=== PATIENT | male | born 1980 | race Caucasian/White ===

== ENCOUNTER → 2018-07-11 16:02 | Outpatient (CLI) | payer MEDICAID, SELFPAY ==
--- NOTE | 2018-07-11 16:03 | DI.MRI.S_ITS ---
PROCEDURE: MR HEAD/BRAIN WO/W CON INDICATIONS: 6 month follow up for brain lesions. 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 TECHNIQUE: Noncontrast axial T1 spin echo, axial T2 fast spin echo, sagittal and axial FLAIR, coronal T2 fast spin echo, axial gradient echo, axial diffusion and ADC through the brain. After the administration of contrast, axial and coronal 3D VIBE or T1 spin echo with fat saturation through the brain. COMPARISON: [facility], MR, BRAIN W&WO CONTRAST, 11/30/2017, 18:06. FINDINGS: Image quality: The patient's head could not fit into the skin and head coil. CSF Spaces: Basal cisterns are patent. No extra-axial fluid collections. Ventricles are normal in size and shape. Brain: Within the brainstem, there again seen nonenhancing T2 hyperintense T1 hypointense lesions seen. These are unchanged compared to the 11/30/17 examination. T2 hyperintense lesions are seen within the white matter elsewhere, which are primarily seen within the temporal lobes. These are also not significantly changed compared to the prior MRI dated 11/30/17. No midline shift. No intracranial bleeds or masses. No abnormal intracranial enhancement. Diffusion-weighted images demonstrate no acute ischemic insults. Normal intravascular flow voids are present. Skull and face: Calvarial marrow is normal in signal. Orbits appear normal. Sinuses: Sinuses and mastoids appear clear. 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 These are not significantly changed compared to the prior MRI dated 11/30/17. Please correlate with any prior outside imaging and known history. Stable cystic appearing T2 hyperintense foci can be seen elsewhere within the brain, primarily within the temporal lobes. These are also not significantly changed compared to the prior MRI. No new lesions or enhancing masses can be seen. Dictated by: Johnnie Ramesh M.D. on 07/11/2018 at 16:08 Approved by: Johnnie Ramesh M.D. on 07/11/2018 at 16:14
== END ==
PROVIDERS: Family Provider Family Medicine; PCP Family Medicine; Visit Provider Family Medicine
DX: Z85.841 Personal history of malignant neoplasm of brain (principal)
CPT/HCPCS: 70553; A9579

== ENCOUNTER 2018-09-17 16:47 | Inpatient (IN) | payer MEDICAID, OTHER, SELFPAY ==
[2018-09-17 16:54] VITALS: BP 137/96; PULSE 113; RESP 20; TEMP 37.7; O2SAT 98
--- NOTE | 2018-09-17 16:54 | ED.GENADULT ---
HPI - General Adult General Chief complaint: Fever Stated complaint: Feeling sick, fever Time Seen by Provider: 09/17/18 16:53 Source: patient and family Mode of arrival: wheelchair Limitations: no limitations History of Present Illness HPI narrative: 38-year-old male with a known neurologic issues. Please see prior primary care doctor note for further evaluation. He is here with his mother for concerns of a fever, not feeling very well, and increased secretions. Symptoms have been going on for the past 12-24 hours. No rashes. Patient is at baseline neurologic status per the mother. Related Data Previous Rx's Medication Instructions Recorded fluoxetine 20 mg capsule 20 mg PO QDAY #90 cap 02/06/18 Battery Powered Lift #1 ea 03/02/18 miscellaneous medical supply misc #1 each 03/21/18 [facility] bed #1 ea 06/07/18 Allergies Allergy/AdvReac Type Severity Reaction Status Date / Time Penicillins [PENICILLINS] Allergy Severe RASH Verified 09/17/18 18:08 Review of Systems Review of Systems Mostly provided by the mother. Patient is difficult to understand but did provide some history Constitutional Reports fatigue and Reports fever(s) Cardiovascular Denies chest pain and Denies dyspnea Respiratory Reports cough and Denies dyspnea Comments: Increased secretions Gastrointestinal Gastrointestinal: Denies abdominal pain, Denies nausea and Denies vomiting Genitourinary Denies dysuria Musculoskeletal Denies myalgias and Denies arthralgias Integumentary/Breasts Denies rash Comments: Patient reports that he does not have any sores on his buttocks Neurologic Comments: No change in neurologic status Endocrine Reports fatigue Hematologic/Lymphatic Comments: Not on anticoagulation [facility] Social History Smoking Status: Never smoker Exam Initial Vital Signs Initial Vital Signs: Vital Signs Temperature 99.8 F H 09/17/18 16:54 Pulse Rate 113 H 09/17/18 16:54 Respiratory Rate 20 09/17/18 16:54 Blood Pressure 137/96 H 09/17/18 16:54 Pulse Oximetry 98 09/17/18 16:54 Const General: cooperative and comfortable Orientation: alert and awake HENMT Head: normal to inspection and normocephalic Nose: nasal discharge Face and sinus: normal facial exam Mouth: other (Dry mucous membranes) Resp Effort & Inspection: not labored, no pursed lip breathing, no stridor and tachypneic Auscultation: rhonchi Cardio Rate: tachycardic Rhythm: regular rhythm Pulses: radial pulses present GI Inspection: non-distended Palpation: soft Skin Rashes: rash noted Neuro Other: Right-sided hemiparesis Difficult to understand. Baseline per mother who is at bedside Extrem General: capillary refill normal Course Orders Ordered: ED Orders 09/17/18 17:04 XR chest 1V Stat 09/17/18 17:25 Blood Culture Stat Complete Blood Count AUTO DIFF Stat Comprehensive Metabolic Panel Stat Influenza A and B by PCR Rapid Stat Lactate (Lactic Acid) Stat Lipase Stat Procalcitonin Stat Sodium Chloride (Normal Saline 0.9%) 1,000 mls @ 125 mls/hr IV CONT JOSE MANUEL Last Admin: 09/17/18 17:05 Dose: 125 mls/hr Levofloxacin (Levaquin) 750 mg in 150 mls @ 100 mls/hr IV NOW ONE Stop: 09/17/18 20:20 Last Admin: 09/17/18 19:04 Dose: 100 mls/hr Sodium Chloride (Normal Saline 0.9%) 1,000 mls @ 1,000 mls/hr IV BOLUS ONE Stop: 09/17/18 20:12 Vital Signs - 8 hr 09/17/18 16:54 09/17/18 17:30 09/17/18 18:50 Temperature 99.8 F H Pulse Rate 113 H 100 H 112 H Respiratory Rate 20 100 H 22 Blood Pressure 137/96 H Blood Pressure [Left Arm] 148/103 H Pulse Oximetry 98 20 L 98 Medical Decision Making Lab Data Lab results reviewed: Yes I reviewed the patient's lab results. Result diagrams: 09/17/18 17:25 09/17/18 17:25 Lab Results 09/17/18 09/17/18 09/17/18 Range/Units 17:25 17:25 17:25 WBC 9.4 (4.5-11.0) X10^3/uL RBC 4.95 (4.5-5.9) X10^6/uL Hgb 13.9 (13.5-17.5) g/dL Hct 40.1 L (41-53) % MCV 80.9 (80-100) fL MCH 28.1 (26-34) PG MCHC 34.8 (30-36) % RDW 13.1 (11.6-14.8) % Plt Count 282 (150-400) X10^3/uL Neut % (Auto) 71.3 (50-75) % Lymph % (Auto) 22.4 L (25-40) % [place] % (Auto) 5.1 (3-14) % Eos % (Auto) 0.6 L (2-4) % Baso % (Auto) 0.6 (0-2) % Neut # (Auto) 6700 (3222-9759) /uL Sodium (137-145) mmol/L Potassium (3.4-5.1) mmol/L Chloride (98-107) mmol/L Carbon Dioxide (22-32) mmol/L BUN (9-20) mg/dL Creatinine (0.66-1.25) mg/dL Estimated GFR (>60) mL/min BUN/Creatinine Ratio (6-22) Glucose (70-100) mg/dL Lactate 0.9 (0.7-2.1) mmol/L Calcium (8.4-10.2) mg/dL Total Bilirubin (0.2-1.3) mg/dL AST (17-59) IU/L ALT (21-72) IU/L Alkaline Phosphatase (38-126) U/L Total Protein (6.3-8.2) g/dL Albumin (3.5-5.0) g/dL Globulin (1.7-4.1) g/dL Albumin/Globulin Ratio (1.0-2.8) Lipase (23-300) U/L Procalcitonin < 0.05 (<0.5) ng/mL Influenza A & B (PCR) (Negative) 09/17/18 09/17/18 Range/Units 17:25 17:25 WBC (4.5-11.0) X10^3/uL RBC (4.5-5.9) X10^6/uL Hgb (13.5-17.5) g/dL Hct (41-53) % MCV (80-100) fL MCH (26-34) PG MCHC (30-36) % RDW (11.6-14.8) % Plt Count (150-400) X10^3/uL Neut % (Auto) (50-75) % Lymph % (Auto) (25-40) % [place] % (Auto) (3-14) % Eos % (Auto) (2-4) % Baso % (Auto) (0-2) % Neut # (Auto) (2453-9255) /uL Sodium 138 (137-145) mmol/L Potassium 4.0 (3.4-5.1) mmol/L Chloride 100 (98-107) mmol/L Carbon Dioxide 28 (22-32) mmol/L BUN 10 (9-20) mg/dL Creatinine 0.70 (0.66-1.25) mg/dL Estimated GFR > 60.0 (>60) mL/min BUN/Creatinine Ratio 14.3 (6-22) Glucose 89 (70-100) mg/dL Lactate (0.7-2.1) mmol/L Calcium 9.5 (8.4-10.2) mg/dL Total Bilirubin 0.8 (0.2-1.3) mg/dL AST 22 (17-59) IU/L ALT 22 (21-72) IU/L Alkaline Phosphatase 86 (38-126) U/L Total Protein 7.8 (6.3-8.2) g/dL Albumin 4.5 (3.5-5.0) g/dL Globulin 3.3 (1.7-4.1) g/dL Albumin/Globulin Ratio 1.4 (1.0-2.8) Lipase 59 (23-300) U/L Procalcitonin (<0.5) ng/mL Influenza A & B (PCR) Negative (Negative) Imaging Data Chest x-ray: Radiologist's impression: PROCEDURE: XR CHEST 1V INDICATIONS: fever TECHNIQUE: One view of the chest was acquired. COMPARISON: [facility], CHEST 2 VIEW, 07/06/2016, 13:37. FINDINGS: Surgical changes and devices: None. Lungs and pleura: No pleural effusions or pneumothorax. There is mild prominence of the pulmonary vasculature. Small hazy opacity at the right lung base noted. Mediastinum: Mediastinal contours appear normal. Heart size is normal. Bones and chest wall: No suspicious bony lesions. Overlying soft tissues appear unremarkable. IMPRESSION: Small hazy opacity at the right lung base likely represents atelectasis, versus pneumonia in the appropriate clinical setting. Dictated by: Victor M Prieto M.D. on 09/17/2018 at 18:15 MDM Narrative Medical decision making narrative: In this clinical setting I am concerned that the chest x-ray does represent a pneumonia. Patient did receive fluids here in the emergency department. He does not have a white count lactate unremarkable procalcitonin is unremarkable however clinically he does have pneumonia. He does have increased secretions. Has a low-grade fever. Patient was given antibiotics here in the emergency department. Patient does not meet sepsis criteria so will hold on the 30 cc/kilos of fluid. I feel given his neurologic status and his other baseline medical issues that admission to the hospital under observation is warranted. I discussed the case with Dr. Vaughn who will admit the patient. I did discuss admission with the patient and the mother who is at bedside. They expressed understanding and agreement. Discharge Plan Departure Patient Disposition: Admitted as Observation Clinical Impression: Pneumonia
--- NOTE | 2018-09-17 17:04 | DI.RAD.S_ITS ---
PROCEDURE: XR CHEST 1V INDICATIONS: fever TECHNIQUE: One view of the chest was acquired. COMPARISON: [facility], , CHEST 2 VIEW, 07/06/2016, 13:37. FINDINGS: Surgical changes and devices: None. Lungs and pleura: No pleural effusions or pneumothorax. There is mild prominence of the pulmonary vasculature. Small hazy opacity at the right lung base noted. Mediastinum: Mediastinal contours appear normal. Heart size is normal. Bones and chest wall: No suspicious bony lesions. Overlying soft tissues appear unremarkable. IMPRESSION: Small hazy opacity at the right lung base likely represents atelectasis, versus pneumonia in the appropriate clinical setting. Dictated by: Victor M Prieto M.D. on 09/17/2018 at 18:15 Approved by: Victor M Prieto M.D. on 09/17/2018 at 18:17
[2018-09-17] MEDS: SODIUM CHLORIDE 0.9% 1,000 ML 1000 ML IV (17:05)
[2018-09-17] MEDS: SODIUM CHLORIDE 0.9% 1,000 ML 125 ML IV (17:05)
[2018-09-17 17:30] VITALS: PULSE 100; RESP 100; RESP 20; O2SAT 100; O2SAT 20
[2018-09-17 17:39] LABS: Add Manual Diff / Slide Review NO; Basophils Percent Auto 0.6 % (0-2); Eosinophils Percent Auto 0.6 % (2-4); Hematocrit 40.1 % (41-53); Hemoglobin 13.9 g/dL (13.5-17.5); Lymphocytes Percent Auto 22.4 % (25-40); Mean Corpuscular HGB Conc 34.8 % (30-36); Mean Corpuscular Hemoglobin 28.1 PG (26-34); Mean Corpuscular Volume 80.9 fL (80-100); Monocytes Percent Auto 5.1 % (3-14); Neutrophils Absolute Auto 6700 /uL (1500-7000); Neutrophils Percent Auto 71.3 % (50-75); Platelet Count 282 X10^3/uL (150-400); Red Blood Cell Count 4.95 X10^6/uL (4.5-5.9); Red Cell Distribution Width 13.1 % (11.6-14.8); White Blood Cell Count 9.4 X10^3/uL (4.5-11.0)
[2018-09-17 17:51] LABS: Alanine Aminotransferase 22 IU/L (21-72); Albumin 4.5 g/dL (3.5-5.0); Albumin Globulin Ratio 1.4 (1.0-2.8); Alkaline Phosphatase 86 U/L (38-126); Aspartate Aminotransferase 22 IU/L (17-59); BUN Creatinine Ratio 14.3 (6-22); Bilirubin Total 0.8 mg/dL (0.2-1.3); Blood Urea Nitrogen 10 mg/dL (9-20); Calcium 9.5 mg/dL (8.4-10.2); Carbon Dioxide 28 mmol/L (22-32); Chloride 100 mmol/L (98-107); Estimated Glomerular Filt Rate > 60.0 mL/min (>60); Globulin 3.3 g/dL (1.7-4.1); Glucose 89 mg/dL (70-100); HEMOLYSIS 18 (0-50); Lipase 59 U/L (23-300); Sodium 138 mmol/L (137-145); Total Protein 7.8 g/dL (6.3-8.2)
[2018-09-17 17:52] LABS: Lactate (Lactic Acid) 0.9 mmol/L (0.7-2.1)
[2018-09-17 17:56] LABS: Influenza A and B by PCR Rapid Negative (Negative)
[2018-09-17 18:21] LABS: Procalcitonin < 0.05 ng/mL (<0.5)
[2018-09-17 18:50] VITALS: BP 148/103; PULSE 112; RESP 22; O2SAT 98
[2018-09-17] MEDS: levoFLOXacin 750 MG/150 ML PIGGYBACK 100 MG IV (19:04)
[2018-09-17 20:02] VITALS: BP 149/101; PULSE 124; RESP 24; TEMP 37; O2SAT 99
[2018-09-17 20:35] VITALS: BMI 33.0
--- NOTE | 2018-09-17 21:30 | PC.ADMIT ---
[id number] Admission Note: The patient,Jonnie Christopher,38 y/o, was given written information regarding hospital policies, unit procedures and contact persons. Patient's smoking status: Never smoker. Vital Signs - 8 hr 09/17/18 16:54 09/17/18 17:30 09/17/18 18:50 Temperature 99.8 F H Pulse Rate 113 H 100 H 112 H Respiratory Rate 20 100 H 22 Blood Pressure 137/96 H Blood Pressure [Left Arm] 148/103 H Pulse Oximetry 98 20 L 98 09/17/18 20:02 Temperature 98.6 F Pulse Rate 124 H Respiratory Rate 24 Blood Pressure 149/101 H Blood Pressure [Left Arm] Pulse Oximetry 99 1999 - Pt to room from ER. Mom at bedside. Transferred via slider board. Pt with large amount of nasal discharge and anterior airway congestion. Room air sats 99%. Oral care, Nasal care, face wash, Libertad-care with old stool in skin folds. Pt difficulty to understand r/t congestion. Mom reports RLE contracture and muscle tension make it difficult to open legs. States that neurologist is recommending botox injections to relax muscle rigidity. Skin care and repositioned. Mom states that at home she is able to one, two, three, hoist him out of his chair and assist into bed. He doesn't really pivot. She states that on occasion he does fall and they have to call medics to assist. Last call 3 days ago. No visible injury. Pt states that his bottom hurts, requesting a pillow for cushioning. Waffle cushion in place. Skin intact with blancheable erythema. IVF infusing. Continuous pulse ox applied. Edcuated to room, routine and call light use. Monitor.
[2018-09-17 23:40] VITALS: BP 142/100; PULSE 124; RESP 22; TEMP 37.7; O2SAT 97
[2018-09-18] VITALS (11 sets, daily range): BP systolic 119–143; BP diastolic 74–93; PULSE 101–122; RESP 18–24; TEMP 36.8–38.4; O2SAT 96–98
[2018-09-18] MEDS: ONDANSETRON 4 MG ODT PO (02:01)
[2018-09-18] MEDS: SODIUM CHLORIDE 0.9% 1,000 ML 125 ML IV ×3 (03:28→20:07)
[2018-09-18 05:16] LABS: Add Manual Diff / Slide Review NO; Basophils Percent Auto 0.6 % (0-2); Eosinophils Percent Auto 0.2 % (2-4); Hematocrit 40.2 % (41-53); Hemoglobin 13.6 g/dL (13.5-17.5); Mean Corpuscular HGB Conc 33.8 % (30-36); Mean Corpuscular Hemoglobin 27.4 PG (26-34); Neutrophils Absolute Auto 8800 /uL (1500-7000); Neutrophils Percent Auto 76.2 % (50-75); Platelet Count 281 X10^3/uL (150-400); Red Blood Cell Count 4.97 X10^6/uL (4.5-5.9); Red Cell Distribution Width 12.9 % (11.6-14.8); White Blood Cell Count 11.6 X10^3/uL (4.5-11.0)
[2018-09-18 05:24] LABS: BUN Creatinine Ratio 11.4 (6-22); Blood Urea Nitrogen 8 mg/dL (9-20); Calcium 9.1 mg/dL (8.4-10.2); Carbon Dioxide 24 mmol/L (22-32); Chloride 100 mmol/L (98-107); Estimated Glomerular Filt Rate > 60.0 mL/min (>60); Glucose 109 mg/dL (70-100); HEMOLYSIS < 15 (0-50); Potassium 4.1 mmol/L (3.4-5.1); Sodium 134 mmol/L (137-145)
--- NOTE | 2018-09-18 05:56 | PC.NURSE ---
Patient has been awake most of the night, using call light for assist with urinal and requesting to be orally sx or turned, difficult to understand speech d/t upper airway congestion, RA sats >95%, breath sounds coarse, RR 20s, thick yellow secretions from nose, thick white secretions from throat, coughs and chokes with sips of water. PO Tylenol held d/t dysphagia and patient refusing it. Temp 100.0 and 101.1, cold clothes to forehead, HR tachy 120s, uses urinal plus is incontinent, barrier ointment applied to buttocks, blanchable erythema.
[2018-09-18] MEDS: ACETAMINOPHEN 650 MG SUPP PR (08:45)
[2018-09-18 10:39] LABS: Bacteria Urine None Seen; WBC Urine None Seen (0-5/HPF)
[2018-09-18 10:44] LABS: Appearance Urine UA CLEAR; Bilirubin Urine UA NEGATIVE (NEGATIVE); Color Urine UA YELLOW; Glucose Urine UA NEGATIVE (Negative); Ketones Urine UA 2+ (NEGATIVE); Leukocyte Esterase Urine UA NEGATIVE (NEGATIVE); Nitrite Urine UA NEGATIVE (Negative); Occult Blood Urine UA 1+ (Negative); Protein Urine UA NEGATIVE (Negative); Urobilinogen Urine UA 0.2 E.U./dL (0.2); pH Urine UA 5.5 (4.5-8.0)
[2018-09-18] MEDS: FLUoxetine 20 MG CAPSULE PO (10:52)
[2018-09-18 10:55] LABS: Culture Indicated Urine Cult Not Indicated; RBC Urine 1-5/HPF (0-5/HPF)
--- NOTE | 2018-09-18 11:56 | PM.HP.1 ---
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 He was brought to the emergency department by family due to 1 day of fatigue and fevers. Mother states he woke up just not feeling well and has had some nasal congestion and increased secretions. Denies cough or shortness of breath. Mother and 3 small children she cares for at home have all been sick with colds though everyone is on the upswing. Mother is unsure if she or the children had fevers. She thinks the youngest child may have. Now all the children have coughs. In the emergency department chest x-ray was concerning for possible pneumonia. He was given levofloxacin and IV fluids and admitted for further observation given his fragile status at baseline. Initial labs were all unremarkable and he did not meet sepsis criteria. Blood cultures collected in the ER. Patient History Medical History Depression (Chronic) Glioma (Chronic) Hemiparesis (Chronic ~1984) Family & Social History Family History: Reviewed 09/18/18 by Nargis Fernandez DO Social History: household members caregiver Prior Living Arrangements Apartment/Condo Safety & Behavioral: Feels Safe in Current Yes Environment Been Physically Hurt or No Threatened By a Person Suicidal Ideation Description None Tobacco & Substance use: Smoking Status Never smoker alcohol intake never Substance Use Type marijuana Meds Home Medications Medication Instructions Recorded Confirmed Type fluoxetine 20 mg capsule 20 mg PO QDAY #90 cap 02/06/18 09/17/18 Rx Battery Powered Lift #1 ea 03/02/18 09/18/18 Rx miscellaneous medical supply misc #1 each 03/21/18 09/18/18 Rx bariatric hospital bed #1 ea 06/07/18 09/18/18 Rx latanoprost 1 drp EYE-BOTH BEDTIME 09/18/18 09/18/18 History Allergies Allergy/AdvReac Type Severity Reaction Status Date / Time Penicillins [PENICILLINS] Allergy Severe RASH Verified 09/17/18 19:34 Review of Systems Constitutional Constitutional: Reports fatigue and Reports fever(s) ENT Ears, Nose, Mouth, and Throat: Yes nasal congestion Cardiovascular Cardiovascular: Denies shortness of breath Respiratory Respiratory: Denies cough, Denies dyspnea and Denies wheezing Gastrointestinal Gastrointestinal: Denies change in bowel habits, Denies nausea and Denies vomiting Endocrine Endocrine: Reports fatigue Allergic/Immunologic Allergic/Immunologic: Denies wheezing Exam Vital Signs (past 8 hours): - 09/18/18 04:10 09/18/18 04:15 09/18/18 07:20 Temperature 101.1 F H Pulse Rate 122 H Respiratory Rate 24 Blood Pressure 143/90 H Pulse Oximetry 97 96 98 09/18/18 07:40 09/18/18 10:15 Temperature 100.6 F H 99.7 F H Pulse Rate 118 H 102 H Respiratory Rate 24 19 Blood Pressure 143/93 H Pulse Oximetry 98 98 Fraction of Inspired Oxygen 21 Oxygen Delivery Method Room Air Oxygen Flow Rate 0 Narrative Exam Narrative: General: Obese developmentally delayed man resting comfortably in bed. HEENT: Nasal congestion. Moist mucosa. CV: Regular rate and rhythm, no murmur Lungs: Bilateral rhonchi in upper lung matthew. No appreciable wheezes or crackles. Good respiratory effort. Abdomen: Active bowel tones. Abdomen is soft, nontender. Extremities: Limited use of arms though slightly better with the left. Unable to move lower extremities. No edema. 2+ pedal pulses bilaterally. Neuro: Answers questions appropriately. AAO x3. Speech is somewhat slurred which is his baseline. Objective Labs Result Diagrams: 09/18/18 04:52 09/18/18 04:52 Labs: Laboratory Results - last 24 hr 09/17/18 09/17/18 09/17/18 17:25 17:25 17:25 WBC 9.4 RBC 4.95 Hgb 13.9 Hct 40.1 L MCV 80.9 MCH 28.1 MCHC 34.8 RDW 13.1 Plt Count 282 Neut % (Auto) 71.3 Lymph % (Auto) 22.4 L [place] % (Auto) 5.1 Eos % (Auto) 0.6 L Baso % (Auto) 0.6 Neut # (Auto) 6700 Sodium Potassium Chloride Carbon Dioxide BUN Creatinine Estimated GFR BUN/Creatinine Ratio Glucose Lactate 0.9 Calcium Total Bilirubin AST ALT Alkaline Phosphatase Total Protein Albumin Globulin Albumin/Globulin Ratio Lipase Procalcitonin < 0.05 Urine Color Urine Appearance Urine pH Ur Specific [place] Urine Protein Urine Glucose (UA) Urine Ketones Urine Occult Blood Urine Nitrate Urine Bilirubin Urine Urobilinogen Ur Leukocyte Esterase Urine RBC Urine WBC Urine Bacteria Ur Culture Indicated? Micro UA Comment Nasal Screen MRSA (PCR) Influenza A & B (PCR) 09/17/18 09/17/18 09/17/18 17:25 17:25 20:15 WBC RBC Hgb Hct MCV MCH MCHC RDW Plt Count Neut % (Auto) Lymph % (Auto) [place] % (Auto) Eos % (Auto) Baso % (Auto) Neut # (Auto) Sodium 138 Potassium 4.0 Chloride 100 Carbon Dioxide 28 BUN 10 Creatinine 0.70 Estimated GFR > 60.0 BUN/Creatinine Ratio 14.3 Glucose 89 Lactate Calcium 9.5 Total Bilirubin 0.8 AST 22 ALT 22 Alkaline Phosphatase 86 Total Protein 7.8 Albumin 4.5 Globulin 3.3 Albumin/Globulin Ratio 1.4 Lipase 59 Procalcitonin Urine Color Urine Appearance Urine pH Ur Specific [place] Urine Protein Urine Glucose (UA) Urine Ketones Urine Occult Blood Urine Nitrate Urine Bilirubin Urine Urobilinogen Ur Leukocyte Esterase Urine RBC Urine WBC Urine Bacteria Ur Culture Indicated? Micro UA Comment Nasal Screen MRSA (PCR) Positive for mrsa H Influenza A & B (PCR) Negative 09/17/18 09/18/18 09/18/18 20:44 04:52 04:52 WBC 11.6 H RBC 4.97 Hgb 13.6 Hct 40.2 L MCV 81.0 MCH 27.4 MCHC 33.8 RDW 12.9 Plt Count 281 Neut % (Auto) 76.2 H Lymph % (Auto) 17.0 L [place] % (Auto) 6.0 Eos % (Auto) 0.2 L Baso % (Auto) 0.6 Neut # (Auto) 8800 H Sodium 134 L Potassium 4.1 Chloride 100 Carbon Dioxide 24 BUN 8 L Creatinine 0.70 Estimated GFR > 60.0 BUN/Creatinine Ratio 11.4 Glucose 109 H Lactate Calcium 9.1 Total Bilirubin AST ALT Alkaline Phosphatase Total Protein Albumin Globulin Albumin/Globulin Ratio Lipase Procalcitonin Urine Color Urine Appearance Urine pH Ur Specific [place] Urine Protein Urine Glucose (UA) Urine Ketones Urine Occult Blood Urine Nitrate Urine Bilirubin Urine Urobilinogen Ur Leukocyte Esterase Urine RBC Urine WBC Urine Bacteria Ur Culture Indicated? Micro UA Comment Nasal Screen MRSA (PCR) Influenza A & B (PCR) Cancelled 09/18/18 10:15 WBC RBC Hgb Hct MCV MCH MCHC RDW Plt Count Neut % (Auto) Lymph % (Auto) [place] % (Auto) Eos % (Auto) Baso % (Auto) Neut # (Auto) Sodium Potassium Chloride Carbon Dioxide BUN Creatinine Estimated GFR BUN/Creatinine Ratio Glucose Lactate Calcium Total Bilirubin AST ALT Alkaline Phosphatase Total Protein Albumin Globulin Albumin/Globulin Ratio Lipase Procalcitonin Urine Color Yellow Urine Appearance Clear Urine pH 5.5 Ur Specific [place] 1.020 Urine Protein Negative Urine Glucose (UA) Negative Urine Ketones 2+ H Urine Occult Blood 1+ H Urine Nitrate Negative Urine Bilirubin Negative Urine Urobilinogen 0.2 Ur Leukocyte Esterase Negative Urine RBC 1-5/hpf Urine WBC None seen Urine Bacteria None seen Ur Culture Indicated? Cult not indicated Micro UA Comment Not Reportable Nasal Screen MRSA (PCR) Influenza A & B (PCR) Assessment & Plan (1) Pneumonia: Qualifiers: Aspiration pneumonia type: Laterality: unspecified laterality Lung location: unspecified part of lung Pneumonia type: due to unspecified organism Qualified Code(s): J18.9 - Pneumonia, unspecified organism Current visit: Yes Status: Acute (2) Hemiparesis: Problem details: Secondary to glioma status post radiation Qualifiers: Hemiparesis etiology: non-cerebrovascular etiology Cerebrovascular disease type: Hemiparesis laterality: right dominant side Qualified Code(s): G81.91 - Hemiplegia, unspecified affecting right dominant side Current visit: No Status: None (3) Moderate developmental delay: Current visit: No Status: None Plan: Assessment/Plan Narrative: 38-year-old male with hemiparesis and 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 Chest x-ray was concerning for pneumonia however patient has not complained of cough or shortness of breath. Family has been sick with a viral illness which seems more likely. Given delicate state secondary to limited mobility, pneumonia is a concern. Will continue levothyroxine to cover for possible pneumonia. Tylenol as needed fevers. Repeat labs in the morning. White blood cell count was slightly up today compared to admission. One blood culture with Staph though suspect this is a contaminant as he does not appear septic. Will follow up final cultures. Continue IV fluid support and wean is he is able to improve his oral intake. Will ask PT to see him though I believe patient is at his baseline with respect to his mobility. Family does an excellent job caring for him. DVT prophylaxis: SCDs Diet: General diet Code status: Full code Disposition: Given patient's chronic medical problems and potential for deterioration, anticipate he will remain in the hospital at least 2 midnights and possibly a third while awaiting blood culture results and clinical improvement. Quality VTE Deep Vein Thrombosis/Pulmonary Embolism Present on Admission: No
--- NOTE | 2018-09-18 13:10 | CM.DANOTE ---
Patient is a 38 year old male who was admitted on 09/17/18 for Fever, Weakness. Pt has MEDICAID for insurance and his PCP is Dr. Fernandez. EMR was reviewed. Per MD, pt has neurological issues at baseline and likely has pneumonia and not stable for d/c yet today. Per RN, pt seems to be well cared for and no current wounds but currently difficult to understand due to his congestion and swallow issues, seems alert and oriented but sleeping soundly. SW spoke to pt's mother Marianela and explained role and she confirmed that the pt lives in an apartment in [place] alone but has [facility]UN CG a few hours every day for assist and that she comes every day to check on the pt as well. Pt uses a lift, hospital bed, and w/c at home and needs assist with transfers. Mom denies that pt has ever been to SNF or used HH. Mom states that pt has been attending outpt PT but recently PT recommended HH for the pt due to the difficulty with getting out of his apartment. Mom states she is agreeable to HH if recommended. Mom is pt's DPOA and SW requested she try to bring in a copy for pt's file and she was agreeable. Mom plans to follow up with pt's SHAUN CM to discuss possibly increasing his caregiving hours with his caregiver. RN plans to discuss ordering PT/OT with MD to determine if pt could benefit from HH therapy at discharge. ROBIN called [facility] and confirmed that pt's SHAUN CM is Steph Harris, but Steph is out of the office today and tomorrow for the holidays. ROBIN faxed H&P for her to review and left vm stating pt had been admitted yesterday. Plan: ROBIN to follow for likely PT/OT eval towards determining if pt is safe for return home with possible new referral to HH. Pt's mom plans to be bedside again tomorrow. ARIC Ca Discharge Planning/Care Management CM Discharge Assessment Start: 09/18/18 12:57 Freq: Status: Active Protocol: Document 09/18/18 13:00 BF (Rec: 09/18/18 13:09 BF [id number]) Discharge Planning Assessment Assigned Healthcare Analyst ARIC Collier DPOA/Assigned Designee Name Marainela Paulino, mother Advance Directives? Yes: POA Advance Directives on File No: requested mother bring in a copy History Provided By Patient Parents Medical Record Has Patient been admitted in last 30 No days? Prior Living Arrangements Apartment/Condo Household Members caregiver none Type of transporation used prior to Relies on Others admit Comment Patient resides in an apartment alone with SHA[facility] CG a few hours a day and his mother stops by daily. Independent with ADL's No Is patient alert and oriented? Yes Needs Assistance With Bathing Eating Grooming Meal Prep Toileting Managing Medications Home Chores / Shopping Caregiver for Another No Community Services used prior to Physical Therapy admission: DME Already Rented / Owned Hospital Bed Wheelchair Other Comment Patient is mostly bedbound/ wheelchair bound at baseline with neurological issues from previous brain tumor Name of Agency [facility] Contact Phone [phone] Agency Fax # [phone] Clinicals Faxed Yes Comment Steph Harris the SHAUN , out today and tomorrow due to the holidays, left [facility]. Comment D/C needs unclear at this time . Likely SNF vs home with Community Services Physical Therapy Occupational Therapy Speech Language Pathology Transportation Arrangement Pending d/c plan of home vs SNF Review Status In Process Please Provide Date Initial DC 09/18/18 Assessment Was Performed Next Review Type Continued Stay Review
[2018-09-18 13:35] LABS: Acinetobacter baumannii Not Detected (Not Detect); Candida albicans Not Detected (Not Detect); Candida glabrata Not Detected (Not Detect); Candida krusei Not Detected (Not Detect); Candida parapsilosis Not Detected (Not Detect); Candida tropicalis Not Detected (Not Detect); E. coli Not Detected (Not Detect); Enterobacter cloacae complex Not Detected (Not Detect); Enterobacteriaceae species Not Detected (Not Detect); Enterococcus species Not Detected (Not Detect); Haemophilus influenzae Not Detected (Not Detect); KPC (carbapenem-resist gene) Not Detected (Not Detect); Listeria monocytogenes Not Detected (Not Detect); Methicillin-resistant gene Not Detected (Not Detect); Neisseria meningitidis Not Detected (Not Detect); Proteus species Not Detected (Not Detect); Pseudomonas aeruginosa Not Detected (Not Detect); Serratia marcescens Not Detected (Not Detect); Staphylococcus species Detected (Not Detect); Streptococcus agalactiae (Gr B Not Detected (Not Detect); Streptococcus pneumonia Not Detected (Not Detect); Streptococcus pyogenes (Gr A) Not Detected (Not Detect); Streptococcus species Not Detected (Not Detect); Vancomycin-rest genes A/B Not Detected (Not Detect)
[2018-09-18] MEDS: levoFLOXacin 750 MG/150 ML PIGGYBACK 100 MG IV (14:22)
--- NOTE | 2018-09-18 18:10 | PT.IIE ---
Current Diagnoses Hemiplegia, unspecified affecting right dominant side (09/17/18) Pneumonia, unspecified organism (09/17/18) Unspecified lack of expected normal physiological development in childhood (09/17/18) Medical History (Last Reviewed 09/18/18 @ 17:23 by Nargis Fernandez DO) Depression (Chronic) Glioma (Chronic) Hemiparesis (Chronic ~1984) Physical Therapy Inpatient Evaluation/Re-Eval M1 PT/OT-IP Prior Functional Status Start: 09/18/18 17:31 Freq: NEEDED Status: Active Protocol: Document 09/18/18 17:00 HH (Rec: 09/18/18 18:10 [email or web address]) Medical Review Prior Functional Status Medical History Reviewed Yes Communication pt is able to follow command and have difficulty in verbal expression Mobility and Gait pt is w/c and bed bound with neurological issues from previous brain tumor in his childhood Activities of Daily Living and IADL's dependent on his SHAUN CG a few hours every day for assist pt's mother Marianela comes everyday to check on pt as well Social History Household Members caregiver none Living Arrangements Apartment/Condo Number of Stairs To Enter/Railing? Pt is unable to provide information. will update when pt's mother back to bedside again tomorrow. Home Equipment Manual Wheelchair Mechanical Lift Hospital Bed Employment Status Unemployed Additional Social History Comment SW's report shows pt lives in an apartment in [place] alone but has SHAUN CG a few hours every day for assist. Pt 's mother comes every day to check on the pt as well. Pt uses a lift, hospital bed, and w/c at home and needs assist with transfers. Pt has never been to SNF or used HH. Pt has been attending outpt PT based on report, but recently PT recommended HH for the pt due to the difficulty with getting out of his apartment. It also mentioned that pt's Mom is agreeable to HH if recommended. M2 PT-IP Current Condition Start: 09/18/18 17:31 Freq: NEEDED Status: Active Protocol: Document 09/18/18 17:00 HH (Rec: 09/18/18 18:10 [email or web address]) Physical Therapy Current Condition Current Condition Evaluation Date 09/18/18 Treatment Diagnosis acute PNA, difficulty in transfer, muscle weakness Onset Date late august M3 PT-IP Subjective Start: 09/18/18 17:31 Freq: NEEDED Status: Active Protocol: Document 09/18/18 17:00 (Rec: 09/18/18 18:10 [email or web address]) Subjective Physical Therapy Visit Type Type Initial Evaluation Visit Start Time 17:00 Visit Stop Time 17:20 Total Visit Minutes 20 Notes Communicated with RN. Pt is awake and oriented who is also able to follow simple command but have difficulty communicating through words due to his developmental neurological issues. Physical Therapy Visit Comments Patient Comments Pt reports I feel better today. Patient Goals To go home and see his mother Therapy Pain Assessment Pain Present Pain Present Denied Pain M4 PT-IP Mobility and Gait Start: 09/18/18 17:31 Freq: NEEDED Status: Active Protocol: Document 09/18/18 17:00 HH (Rec: 09/18/18 18:10 [email or web address]) PT-Bed Mobility Assessment Rolling Level of Assist Maximal Assistance 2 Person Assistance Supine to Sit Supine to Sit Total Assistance 2 Person Assistance PT-Transfer Assessment Comments Mobility Comments Did not attempt due to inadequate extremity and trunk control Gait Assessment Comments Gait Comments Did not attempt due to inadequate extremity and trunk control PT-Balance Assessment Comments Other Balance Tests/Deviations/Treatment Did not attempt due to : inadequate extremity and trunk control for sitting. M5 PT-IP Objective Assessments Start: 09/18/18 17:31 Freq: NEEDED Status: Active Protocol: Document 09/18/18 17:00 HH (Rec: 09/18/18 18:10 [email or web address]) Orientation Orientation/Cognition Level of Alertness Alert Comments Pt is able follow commands but have difficulty communicating through words due to his prior neurological issues at baseline. (brain tumor) Gross Range of Motion Upper Extremity ROM Assessment Right Impaired Impairments pt only has slight wrist and finger movements on his R UE Lower Extremity ROM Assessment Bilaterally Impaired Impairments Rigid B LE pt has 10-20% of L LE AROM, but complete paralysis on R LE Strength Upper Extremity Strength Assessment Bilaterally Impaired Lower Extremity Strength Assessment Bilaterally Impaired Muscle Tone Muscle Tone WNL Yes Muscle Tone Location Bilateral Lower Extremity Type of Tone Hypertonicity Severity of Tone Severe M6 PT-IP Treatment Start: 09/18/18 17:31 Freq: NEEDED Status: Active Protocol: Document 09/18/18 17:00 HH (Rec: 09/18/18 18:10 [email or web address]) Physical Therapy Treatment Exercises Exercises Ankle Pumps M7 PT-IP Assessment and Plan Start: 09/18/18 17:31 Freq: NEEDED Status: Active Protocol: Document 09/18/18 17:00 (Rec: 09/18/18 18:10 [email or web address]) PT Summary Assessment and Plan Potential Rehabilitation Potential Poor Status of Condition at Evaluation Evolving Summary Impairments ROM Strength Tone Cognition Bed Mobility Transfers Gait Activity Tolerance Assessment Summary Patient is a 38 year old male who was admitted on 09/17/18 for fever and generalized weakness. Pt has neurological issues at baseline (brain tumor) and was dx with acute PNA upon admission. Per RN, pt does not have current wounds but currently difficult to understand due to his congestion. Upon EMR, pt is bed and w/c bound prior to admission who requires extensive assistance for ADLs and IADLs from his CG and his mother, along with his home AD such as hospital bed, ashley lift and w/c. Pt requires max A x 2 for overall bed mobility today due to pt's insufficient functional mobility and strength. In my professional opinion, Recommend pt to be d/c to SNF which provides extensive physical and medical assistance for his basic needs , which reduces his chance of getting PNA or other complications due to physical inactivity at home. Goals Bed Mobility Goal Maximal Assistance Transfer Goal Maximal Assistance Gait Goal Maximal Assistance Frequency of Treatment Frequency Of Treatment Once a Day Treatment Plan Physical Therapy Treatment Plan Bed Mobility Training Transfer Training Therapeutic Exercise Discharge Planning Manual Therapy Other Recommendations and Next Treatment discuss d/c plan with pt's mom Focus . Recommend SNF due to pt's inactivity chest PT if needed bed mobility as tolerated Recommendations To Nursing Amount of Assist Needed Total Assistance Mechanical Lift Discharge Recommendations PT Discharge Recommendations SNF Rehab
[2018-09-18] MEDS: LATANOPROST 0.005% OPHTH 2.5 ML 1 DROPS EYE-BOTH (22:46)
[2018-09-19] VITALS (11 sets, daily range): BP systolic 121–143; BP diastolic 85–98; PULSE 103–111; RESP 16–19; TEMP 37–37.5; O2SAT 95–99
[2018-09-19] MEDS: ACETAMINOPHEN 650 MG SUPP PR (00:28)
[2018-09-19] MEDS: SODIUM CHLORIDE 0.9% 1,000 ML 125 ML IV (04:02)
[2018-09-19 05:23] LABS: Add Manual Diff / Slide Review NO; Basophils Percent Auto 0.8 % (0-2); Eosinophils Percent Auto 1.9 % (2-4); Hematocrit 39.6 % (41-53); Hemoglobin 13.8 g/dL (13.5-17.5); Lymphocytes Percent Auto 22.3 % (25-40); Mean Corpuscular HGB Conc 34.9 % (30-36); Mean Corpuscular Hemoglobin 28.3 PG (26-34); Mean Corpuscular Volume 80.9 fL (80-100); Monocytes Percent Auto 6.7 % (3-14); Neutrophils Absolute Auto 7200 /uL (1500-7000); Neutrophils Percent Auto 68.3 % (50-75); Platelet Count 267 X10^3/uL (150-400); Red Blood Cell Count 4.89 X10^6/uL (4.5-5.9); Red Cell Distribution Width 13.5 % (11.6-14.8); White Blood Cell Count 10.5 X10^3/uL (4.5-11.0)
[2018-09-19 05:28] LABS: BUN Creatinine Ratio 11.4 (6-22); Blood Urea Nitrogen 8 mg/dL (9-20); Calcium 9.3 mg/dL (8.4-10.2); Carbon Dioxide 25 mmol/L (22-32); Chloride 105 mmol/L (98-107); Estimated Glomerular Filt Rate > 60.0 mL/min (>60); Glucose 101 mg/dL (70-100); HEMOLYSIS < 15 (0-50); Potassium 3.9 mmol/L (3.4-5.1); Sodium 140 mmol/L (137-145)
--- NOTE | 2018-09-19 08:14 | PM.PN.1 ---
Subjective Date Patient Seen: 09/19/18 Time Patient Seen: 08:14 Interval history: Patient states he did well overnight. Still having lots of congestion. Mild cough. No headache. No nursing staff concerns. He is eating breakfast this morning. He says he definitely feels better than yesterday. But still not quite back to baseline. No significant hypoxia no significant temperatures. Mildly tachycardic this morning. Exam Vital Signs (past 8 hours): - 09/19/18 00:30 09/19/18 05:00 Temperature 99.2 F Pulse Rate 104 H Respiratory Rate 18 Blood Pressure 129/89 Pulse Oximetry 95 99 Fraction of Inspired Oxygen 21 Oxygen Delivery Method Room Air Oxygen Flow Rate 0 Narrative Exam Narrative: Gen.: Alert good historian. HEENT: Pupils equal round and reactive or mucosa is moist neck is supple Cardio: [S1-S2 regular rate and rhythm no murmurs appreciated.] Respiratory: Normal respiratory rate. Lungs are clear no wheezes or crackles appreciated Abdomen: Soft nontender Extremities: Hemiparesis weakness right side. Objective Labs Result Diagrams: 09/19/18 04:45 09/19/18 04:45 Labs: Laboratory Results - last 24 hr 09/17/18 09/18/18 09/19/18 17:25 10:15 04:45 WBC 10.5 RBC 4.89 Hgb 13.8 Hct 39.6 L MCV 80.9 MCH 28.3 MCHC 34.9 RDW 13.5 Plt Count 267 Neut % (Auto) 68.3 Lymph % (Auto) 22.3 L Slope % (Auto) 6.7 Eos % (Auto) 1.9 L Baso % (Auto) 0.8 Neut # (Auto) 7200 H Sodium Potassium Chloride Carbon Dioxide BUN Creatinine Estimated GFR BUN/Creatinine Ratio Glucose Calcium Urine Color Yellow Urine Appearance Clear Urine pH 5.5 Ur Specific [place] 1.020 Urine Protein Negative Urine Glucose (UA) Negative Urine Ketones 2+ H Urine Occult Blood 1+ H Urine Nitrate Negative Urine Bilirubin Negative Urine Urobilinogen 0.2 Ur Leukocyte Esterase Negative Urine RBC 1-5/hpf Urine WBC None seen Urine Bacteria None seen Ur Culture Indicated? Cult not indicated Micro UA Comment Not Reportable A. baumannii (PCR) Not detected Victoria albicans (PCR) Not detected C. glabrata (PCR) Not detected C. krusei (PCR) Not detected C. parapsilosis (PCR) Not detected C. tropicalis (PCR) Not detected Enterobacteriac sp PCR Not detected E. cloacae complex PCR Not detected Enterococcus sp PCR Not detected E. coli (PCR) Not detected H. influenzae (PCR) Not detected Klebsiella oxytoca PCR Not detected Klebsiella pneumoniae Not detected List. monocytogenes PCR Not detected N. meningitidis (PCR) Not detected Proteus species (PCR) Not detected Serratia marcescens PCR Not detected Staphylococcus sp PCR Detected H Staph aureus (PCR) Not detected mecA-Methicil Res Gene Not detected Streptococcus sp PCR Not detected Group A Strep (PCR) Not detected Strep agalactiae (PCR) Not detected Strep pneumoniae (PCR) Not detected P. aeruginosa (PCR) Not detected Carlene/B-Vanco Res Genes Not detected KPC-Carbap Res Gene PCR Not detected 09/19/18 04:45 WBC RBC Hgb Hct MCV MCH MCHC RDW Plt Count Neut % (Auto) Lymph % (Auto) Slope % (Auto) Eos % (Auto) Baso % (Auto) Neut # (Auto) Sodium 140 Potassium 3.9 Chloride 105 Carbon Dioxide 25 BUN 8 L Creatinine 0.70 Estimated GFR > 60.0 BUN/Creatinine Ratio 11.4 Glucose 101 H Calcium 9.3 Urine Color Urine Appearance Urine pH Ur Specific [place] Urine Protein Urine Glucose (UA) Urine Ketones Urine Occult Blood Urine Nitrate Urine Bilirubin Urine Urobilinogen Ur Leukocyte Esterase Urine RBC Urine WBC Urine Bacteria Ur Culture Indicated? Micro UA Comment A. baumannii (PCR) Victoria albicans (PCR) C. glabrata (PCR) C. krusei (PCR) C. parapsilosis (PCR) C. tropicalis (PCR) Enterobacteriac sp PCR E. cloacae complex PCR Enterococcus sp PCR E. coli (PCR) H. influenzae (PCR) Klebsiella oxytoca PCR Klebsiella pneumoniae List. monocytogenes PCR N. meningitidis (PCR) Proteus species (PCR) Serratia marcescens PCR Staphylococcus sp PCR Staph aureus (PCR) mecA-Methicil Res Gene Streptococcus sp PCR Group A Strep (PCR) Strep agalactiae (PCR) Strep pneumoniae (PCR) P. aeruginosa (PCR) Carlene/B-Vanco Res Genes KPC-Carbap Res Gene PCR Assessment & Plan Plan: Assessment/Plan Narrative: Patient with pneumonia. Community-acquired he is on antibiotics to cover typical pathogens in a community such as staph and strep. Also high probability of viral as his family has illnesses well. He is on Levaquin currently. Will continue with this white blood cell count is down. Procalcitonin and lactic acid were normal. He is afebrile. Not requiring oxygen. Says his cough is better and he is still feeling congested but overall improved. Will continue with 24 more hours of antibiotics. Will decrease his IV fluid today. Have him work with physical therapy. Continue continue to monitor his of blood cultures which 1 grew back positive which is probably a contaminant. Glioblastoma as a child subsequent radiation. Patient has hemiparesis in developmental delay due to this. It is and it is chronic and stable state. Disposition plan. Anticipate discharge in the next 24-48 hours as he is stable Quality VTE Deep Vein Thrombosis/Pulmonary Embolism Present on Admission: No
[2018-09-19] MEDS: FLUoxetine 20 MG CAPSULE PO (08:47)
--- NOTE | 2018-09-19 12:45 | PT.IPTN ---
Current Diagnoses Pneumonia, unspecified organism (09/17/18) Unspecified lack of expected normal physiological development in childhood (09/17/18) Physical Therapy Treatment Note M2 PT-IP Current Condition Start: 09/18/18 17:31 Freq: NEEDED Status: Active Protocol: Document 09/18/18 17:00 HH (Rec: 09/18/18 18:10 [email or web address]) Physical Therapy Current Condition Current Condition Evaluation Date 09/18/18 Treatment Diagnosis acute PNA, difficulty in transfer, muscle weakness Onset Date late august M3 PT-IP Subjective Start: 09/18/18 17:31 Freq: NEEDED Status: Active Protocol: Document 09/19/18 12:30 SA (Rec: 09/19/18 12:45 SA [id number]) Subjective Physical Therapy Visit Type Type Treatment Note Visit Start Time 12:00 Visit Stop Time 12:25 Total Visit Minutes 25 Notes Pt in bed and agreeable to try sitting up at EOB. Pt able to answer questions appropriately. Pt states he has a Carlos Alberto lift at home but is unable to use it for transfers as he is too tall for it. Number of NEEDLE MAKER Visits 1 Physical Therapy Visit Comments Patient Comments Feeling a little better today, still really weak. Patient Goals To go home and see his mother Therapy Pain Assessment Pain Present Pain Present Denied Pain M4 PT-IP Mobility and Gait Start: 09/18/18 17:31 Freq: NEEDED Status: Active Protocol: Document 09/19/18 12:30 SA (Rec: 09/19/18 12:45 SA [id number]) PT-Bed Mobility Assessment Rolling Type of Rolling Roll to Left Level of Assist Moderate Assistance 2 Person Assistance Supine to Sit Supine to Sit Maximum Assistance 2 Person Assistance Sit to Supine Sit to Supine Maximum Assistance 2 Person Assistance Scooting Scooting to Edge of Bed Maximum Assistance Scooting Up and Down in Bed Dependent PT-Transfer Assessment Comments Mobility Comments Upon sitting up at EOB pt stated that he didn't feel like he could stand. PT with increased tone in BLEs, unable to flex knees to plant firmly on ground to help suport himself in seated position. Sat at EOB x 2 min with Max A to maintain while Nurse listened to lung sounds. Max A x 2 for supin<>sit. Limieted use of RUE/hand for gripping and pulling self up. PT-Balance Assessment Comments Other Balance Tests/Deviations/Treatment Sitting balace with attempted : lateral leaning, Max A to control trunk. M5 PT-IP Objective Assessments Start: 09/18/18 17:31 Freq: NEEDED Status: Active Protocol: Document 09/18/18 17:00 (Rec: 09/18/18 18:10 [email or web address]) Orientation Orientation/Cognition Level of Alertness Alert Comments Pt is able follow commands but have difficulty communicating through words due to his prior neurological issues at baseline. (brain tumor) Gross Range of Motion Upper Extremity ROM Assessment Right Impaired Impairments pt only has slight wrist and finger movements on his R UE Lower Extremity ROM Assessment Bilaterally Impaired Impairments Rigid B LE pt has 10-20% of L LE AROM, but complete paralysis on R LE Strength Upper Extremity Strength Assessment Bilaterally Impaired Lower Extremity Strength Assessment Bilaterally Impaired Muscle Tone Muscle Tone WNL Yes Muscle Tone Location Bilateral Lower Extremity Type of Tone Hypertonicity Severity of Tone Severe M6 PT-IP Treatment Start: 09/18/18 17:31 Freq: NEEDED Status: Active Protocol: Document 09/19/18 12:30 SA (Rec: 09/19/18 12:45 SA [id number]) Physical Therapy Treatment Exercises Exercises Ankle Pumps Supine Hip Abduction Other Treatments Other Treatment Performed PROM to BLE hip/knee for knee flex/ext and hip ABD/ADD in supine. Pt pt's tone limiting knee flexion and hip ABd. M7 PT-IP Assessment and Plan Start: 09/18/18 17:31 Freq: NEEDED Status: Active Protocol: Document 09/19/18 12:30 SA (Rec: 09/19/18 12:45 SA [id number]) PT Summary Assessment and Plan Potential Rehabilitation Potential Poor Status of Condition at Evaluation Evolving Summary Assessment Summary Pt still weak from PNA. States he was able to stand up from EOB and transfer to with help of his caregiver Jack at home. Pt unable to stand today , and has significant LE tone and poor trunk control. Frequency of Treatment Frequency Of Treatment Once a Day Treatment Plan Physical Therapy Treatment Plan Bed Mobility Training Transfer Training Therapeutic Exercise Discharge Planning Manual Therapy Other Recommendations and Next Treatment Recommend SNF for continued Focus management of LE tone, strengthening and functional mobility training prior to d/c home alone with parts interpreter caregiver. Recommendations To Nursing Amount of Assist Needed Total Assistance Mechanical Lift Discharge Recommendations PT Discharge Recommendations SNF Rehab
--- NOTE | 2018-09-19 13:10 | PC.NURSE ---
pt refused to have this RN remove left lower leg dressing stating The wound clinic will change it on tuesday gathered supplies including the medihoney as indicated in discharge note from [facility] but pt reports this is happening q week rather than q0d as indicated- pt up to chair with assist of 2 from PT, pt remains saline locked with oxycododne for pain intermittently
[2018-09-19] MEDS: levoFLOXacin 750 MG/150 ML PIGGYBACK 100 MG IV (14:07)
--- NOTE | 2018-09-19 15:31 | CM.DPC ---
DCP SNF Planning Per MD, pt seems to be improving some but not medically stable for d/c yet. Per PT, they are aware of pt from outpt PT and know better what his baseline typically looks like. Per PT assess today, pt was only able to sit up briefly in bed and seems below his baseline. Recommending SNF rehab prior to safe d/c home with caregivers. SW called pt's mom/DPOA as pt is still hard to understand, and discussed above information and she agrees that currently pt is below baseline and is still hopeful that he will progress enough to safely d/c home with new HH referral. SW also discussed the barrier of finding a Medicaid SNF rehab bed but she was agreeable with SW attempting to find a SNF Medicaid bed in [facility] to determine if SNF is even an option. Mom will be bedside tonight and will discuss further with the pt. Mom states that [facility] has been paying for pt's outpt PT and thinks they may cover SNF therapy but of course not room and board. SW called these SNF's to inquire about open Medicaid rehab beds: [facility]- likely no Medicaid bed [facility]- no Medicaid beds now [facility]- left msg [facility]- left msg [facility]- tried to leave msg, but no admissions vm. Try again. Plan: SW to follow closely for further PT/OT to determine if pt can progress enough to safely return home with SHAUN DASH, mom, and new HH referral. Pt's Medicaid insurance is a barrier to SNF plan. [facility]
--- NOTE | 2018-09-19 20:56 | PC.NURSE ---
ansley note pt c/o itchy skin on buttocks. While adjusting waffle cushions under pt, pt scratching at buttocks and several scratch gonzaelz seen on each buttock. Area cleaned with soap and water, then barrier cream applied. Pt able to suction mouth with [place].
[2018-09-19] MEDS: LATANOPROST 0.005% OPHTH 2.5 ML 1 DROPS EYE-BOTH (21:53)
--- NOTE | 2018-09-19 22:04 | PC.NURSE ---
evening shift note- patient arrived to room via bed from ICU at 2039. patient able to make needs known. patient pleasant, calm, and cooperative with care. patient calls appropriatly for assistance. safety measures in place. bed alarm activated. call woods and phone within reach. will continue to monitor.
--- NOTE | 2018-09-20 00:27 | PC.NURSE ---
Addendum entered by Ksenia Saha R.N. 09/20/18 06:44: Has been repositioned as he requests. Did have BM during this shift. RA sat remains 98% and continues to deny any pain/ discomfort. Original Note: Patient is alert and oriented but speech is slurred and can be difficult to understand; hx of glioma causing some developmental delay and right hemiplegia. Breath sounds diminished but CTA; RA sat is 98%. Occasional non-productive cough. HRR but tachy at 113 bpm. Denies nausea. BT present and abdomen is soft but has not had BM since 09/16; no bowel meds ordered at this time. Receives help with urinal when he needs to void but is also sometimes incontinent of urine. Scraches noted on right buttock; waffle cushion being used. Turned upon request of patient. SCD's applied. Fall risk score is high and bed alarm is activated. Denies pain.
[2018-09-20 04:39] VITALS: BP 126/99; PULSE 108; RESP 20; TEMP 37.6; O2SAT 98
[2018-09-20 07:00] VITALS: O2SAT 97
[2018-09-20 08:00] VITALS: BP 151/92; PULSE 100; RESP 18; TEMP 36.7; O2SAT 98
[2018-09-20] MEDS: SODIUM CHLORIDE 0.9% FLUSH 10 ML IV (08:27)
[2018-09-20] MEDS: FLUoxetine 20 MG CAPSULE PO (08:27)
--- NOTE | 2018-09-20 08:38 | PM.DS.1 ---
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 He was brought to the emergency department by family due to 1 day of fatigue and fevers. Mother states he woke up just not feeling well and has had some nasal congestion and increased secretions. Denies cough or shortness of breath. Mother and 3 small children she cares for at home have all been sick with colds though everyone is on the upswing. Mother is unsure if she or the children had fevers. She thinks the youngest child may have. Now all the children have coughs. In the emergency department chest x-ray was concerning for possible pneumonia. He was given levofloxacin and IV fluids and admitted for further observation given his fragile status at baseline. Initial labs were all unremarkable and he did not meet sepsis criteria. Blood cultures collected in the ER. Discharge Providers Date of admission: 09/17/18 19:52 Primary care physician: Nargis Fernandez DO Consults: 09/17/18 20:07 Consult to Respiratory Therapy Evaluate & Treat Comment: incentive spirometry, cpt if needed, suction Physician Instructions: Evaluate and treat 09/17/18 20:55 Consult to Dietitian, Adult Routine Comment: Reason For Exam: assessed at high risk 09/18/18 14:13 Consult to Physical Therapy Evaluate & Treat Comment: Physician Instructions: Evaluate and Treat 09/18/18 14:21 Consult to Accounts Receivable Administrator Routine Comment: Maximize resources for home Discharge provider: Nargis Fernandez DO Discharge Date: 09/20/18 Summary Discharge Diagnosis: Acute community acquired pneumonia Developmental delay Hemiparesis Hospital Course: Hospital course was uncomplicated. Patient was treated for suspected pneumonia with levofloxacin with gradual improvement in fatigue, fevers and body aches. Patient never required supplemental oxygen. Labs were normal prior to discharge. One of two blood cultures returned positive for coag neg staph felt to be a contaminant as patient never appeared septic and did not meet sepsis criteria. Patient will discharge with two more days of antibiotics to complete a 7 day course. He was seen by physical therapy who recommended ongoing PT at home vs SNF. On admission patient was quite weak and not at baseline. Day of discharge he reported he was near baseline and feeling much better. Chronically he has been slowly declining over time with regard to his mobility and is seeing Dr. Retana with neurology as an outpatient. Patient will discharge home with home health for continued PT as well as OT, nursing and social work. Mother is very involved in patient's care and is comfortable having him return home rather than pursue SNF. Needs to follow up with Dr. Fernandez in two weeks. Status at Discharge Functional status at discharge: wheelchair bound Overall status at discharge: patient is progressing back to baseline Time Spent with Patient Less than 30 minutes Exam Vital Signs (past 8 hours): - 09/20/18 04:39 Temperature 99.6 F Pulse Rate 108 H Respiratory Rate 20 Blood Pressure 126/99 H Pulse Oximetry 98 Fraction of Inspired Oxygen 21 Oxygen Delivery Method Room Air Oxygen Flow Rate 0 Narrative Exam Narrative: General: Obese developmentally delayed man resting comfortably in bed. CV: Regular rate and rhythm, no murmur Lungs: Clear to auscultation bilaterally without wheezes or rales Abdomen: Active bowel tones. Abdomen is soft, nontender. Extremities: No edema. 2+ pedal pulses bilaterally. Neuro: AAO x3. Speech back to baseline. Objective Imaging Chest x-ray: Radiologist's impression: IMPRESSION: Small hazy opacity at the right lung base likely represents atelectasis, versus pneumonia in the appropriate clinical setting. Dictated by: Victor M Prieto M.D. on 09/17/2018 at 18:15 Approved by: Victor M Prieto M.D. on 09/17/2018 at 18:17 Labs Result Diagrams: 09/19/18 04:45 09/19/18 04:45 Discharge Plan Discharge Plan Discharge Problem: Pneumonia Patient Disposition: Home Health Service Provider Discharge Instructions Diet: Diet as Tolerated Discharge Data Primary Care Provider: Nargis Fernandez Attending Provider: Juju Vaughn Admit Date/Time: 09/17/18 19:52 Discharges patient from system. Discharge Date/Time: 09/20/18 15:40 Quality VTE Deep Vein Thrombosis/Pulmonary Embolism Present on Admission: No
--- NOTE | 2018-09-20 13:53 | CM.DPC ---
Referral faxed to Vivi Izaguirre
--- NOTE | 2018-09-20 15:36 | CM.DPC ---
DCP/continued: Reviewed chart. Received verbal referral from Dr. Fernandez this AM re: patient discharging home today with . In addition, spoke with Ashley at outpatient therapy that confirms that patient is very active with outpatient therapy. Ashley agrees that safest plan would be for patient to return home with daily caregivers through [facility]# [phone] and home health prior to returning to outpatient therapy. Order obtained for Home health and F2F signed by Dr. Fernandez. FOREST FIRE MANAGEMENT OFFICER placed call to patient's DPOA/Mother Marianela re: above plan. Marianela confirms this plan and is agreeable to HH. DPOA has no preference in agencies. Therefore, FOREST FIRE MANAGEMENT OFFICER asked LISBETH/Lisset to call [facility]. Clinical and F2F faxed. FOREST FIRE MANAGEMENT OFFICER spoke with Leanna at [facility] and referral accepted and confirmed. Faxed d/c summary to BALTAZ[facility] PERAZA/Steph Carrion Patient's Mother reports that she can provide patient with transport home. She will bring his electric w/c to [facility] RN made aware that staff will likely need to assist with transferring patient into his w/c. No additional needs identified. [facility] brochure provided to Mother/FRANCIE/Marianela. P: Home today with [facility]. [facility] notified and [facility] updated that patient will discharge this afternoon. [facility]
== END 2018-09-20 15:40 | disposition home health service (06) | DRG 194 ==
LOC: ED 19:04 → ICU 19:54 → AC 09-19 20:34
PROVIDERS: Admitting Provider Family Medicine; Emergency Provider Emergency Medicine; PCP Family Medicine; Visit Provider Family Medicine
DX: J18.9 Pneumonia, unspecified organism (principal); G81.91 Hemiplegia, unspecified affecting right dominant side; R62.50 Unspecified lack of expected normal physiological development in childhood; F32.9 Major depressive disorder, single episode, unspecified
CPT/HCPCS: 36415; 36591; 71045; 80048; 80053; 81001; 83605; 83690; 84145; 85025; 87040; 87147; 87150; 87205; 87400; 87797; 94762; 96361; 96365; 97163; 97530; 99232; 99233; 99238; 99283; 99284; J1956

== ENCOUNTER 2018-10-06 12:30 | Outpatient (RCR) | payer OTHER, SELFPAY ==
--- NOTE | 2018-01-17 15:06 | PT.OTN ---
On January 17, 2018 our therapy services consisting of Speech, Occupational, and Physical therapy transitioned from [employer] electronic documentation system to a new [employer] electronic system. All documentation prior to January 17 can be found under [employer] saved data. From January 17 forward, all medical record documentation will be in [employer] 6.1.
--- NOTE | 2018-01-25 14:56 | PT.OTN ---
Current Diagnoses Hemiplegia, unspecified affecting right dominant side (01/25/18) Muscle weakness (generalized) (01/25/18) Other muscle spasm (01/25/18) Difficulty in walking, not elsewhere classified (01/25/18) Other lack of coordination (01/25/18) Unspecified lack of coordination (01/25/18) Physical Therapy Treatment Note PT-OP-A Visit Information Start: 01/25/18 14:39 Freq: Status: Active Protocol: Document 01/25/18 14:40 [facility]AK (Rec: 01/25/18 14:44 [facility] [id number]) Out-Patient Physical Therapy Visit Information Visit Information Visit Type Treatment Note Visit Start Time 11:45 Visit Stop Time 12:05 Total Visit Minutes 50 Visit Number 159 Number of HARDBOARD PRESS OPERATOR Visits 0 Evaluation Information Evaluation Date 02/20/16 PT-OP-C Subjective Start: 01/25/18 14:39 Freq: Status: Active Protocol: Document 01/25/18 14:44 SAK (Rec: 01/25/18 14:55 [facility] [id number]) OP-PT Subjective Patient Comments Patient Comments I can't really walk anymore, having more difficulty bending my knees; have to put my feet on floor then move my w/c forward to get them to bend. PT-OP-S Aquatic Treatment Start: 01/25/18 14:39 Freq: Status: Active Protocol: Document 01/25/18 14:44 SAK (Rec: 01/25/18 14:55 [facility] [id number]) Aquatics Treatment Pool Entry/Exit Pool Entry/Exit Method Lift Assistance Maximal Assist Comments Max assist 1, mod assist 1 stand-pivot transfer Water Walking Forwards Water Level Chest Level Walking Equipment Neck Float Level of Assistance Maximal Assist Comments assist for balance and weight- shift, advances LE's very short distance Spinal Exercises 2 Details seated crunch Body Position Sitting Water Level Neck Level Equipment Neck Float Reps/Duration 10x Comments seated on pool platform 1 Details roll partial prone to supine Equipment Neck Float Reps/Duration 5 Comments min assist Balance 1 Details partial supine to stand Water Level Neck Level Equipment [place] float, neck float Comments max assist Swim Strokes Backstroke Equipment Ankle Floats Neck Float Other Equipment Used [place] float Comments max assist for LE's, primarily uses left UE PT-OP-T Assessment and Plan Start: 01/25/18 14:39 Freq: Status: Active Protocol: Document 01/25/18 14:44 LOL[facility] (Rec: 01/25/18 14:55 [facility] [id number]) Physical Therapy Assessment Impairments Impairments Activity Tolerance Balance Coordination Functional Activities Functional Mobility Gait ROM Soft Tissue Mobility Strength Tone Assessment Summary Assessment Jonnie's extensor tone in LE's was higher today, requiring max assist for flexion. Minimal ability to advance LE' s for gait. With float assist was able to roll prone to supine at 45 degree body angle using left UE and trunk. Physical Therapy Plan Frequency and Duration Frequency of Treatment 2x/Week Duration of Treatment 12 Plan of Care Start Date 12/13/17 Plan of Care End Date 03/06/18
--- NOTE | 2018-01-27 15:04 | PT.OTN ---
Current Diagnoses Hemiplegia, unspecified affecting right dominant side (01/25/18) Muscle weakness (generalized) (01/25/18) Other muscle spasm (01/25/18) Difficulty in walking, not elsewhere classified (01/25/18) Other lack of coordination (01/25/18) Unspecified lack of coordination (01/25/18) Physical Therapy Treatment Note PT-OP-A Visit Information Start: 01/25/18 14:39 Freq: Status: Active Protocol: Document 01/27/18 14:57 SAK (Rec: 01/27/18 15:02 [facility] [id number]) Out-Patient Physical Therapy Visit Information Visit Information Visit Start Time 11:00 Visit Stop Time 11:50 Total Visit Minutes 50 Visit Number 160 Number of [employer]OLLER Visits 0 PT-OP-C Subjective Start: 01/25/18 14:39 Freq: Status: Active Protocol: Document 01/27/18 15:02 SAK (Rec: 01/27/18 15:04 [facility] [id number]) OP-PT Subjective Patient Comments Patient Comments No new c/o. Reports his mother is coming to watch his aquatic PT session PT-OP-S Aquatic Treatment Start: 01/25/18 14:39 Freq: Status: Active Protocol: Document 01/27/18 14:57 SAK (Rec: 01/27/18 15:02 [facility] [id number]) Aquatics Treatment Pool Entry/Exit Pool Entry/Exit Method Lift Assistance Maximal Assist Comments Max assist 1, mod assist 1 stand-pivot transfer Water Walking Forwards Water Level Chest Level Walking Equipment Neck Float, PT assist, aquatic parallel bars Level of Assistance Maximal Assist Comments assist for balance and weight- shift, advances LE's very short distance Spinal Exercises 2 Details seated crunch Body Position Sitting Water Level Neck Level Equipment Neck Float, [place] float Reps/Duration 10x Comments seated on pool platform 1 Details roll partial prone to supine Equipment Neck Float Reps/Duration 5 Comments min assist Balance 2 Details vertical balance Body Position Standing Water Level Neck Level 1 Details partial supine to stand Water Level Neck Level Equipment [place] float, neck float Comments max assist Swim Strokes Backstroke Equipment Ankle Floats Neck Float Other Equipment Used [place] float Comments max assist for LE's, primarily uses left UE PT-OP-T Assessment and Plan Start: 01/25/18 14:39 Freq: Status: Active Protocol: Document 01/27/18 14:57 [facility] (Rec: 01/27/18 15:02 [facility] [id number]) Physical Therapy Assessment Impairments Impairments Activity Tolerance Balance Coordination Functional Activities Functional Mobility Gait ROM Soft Tissue Mobility Strength Tone Physical Therapy Plan Frequency and Duration Frequency of Treatment 2x/Week Duration of Treatment 13 Plan of Care Start Date 12/13/17 Plan of Care End Date 03/06/18 Next Visit Focus/Plan Next Visit Plan Continue to progress aquatic exercises as tolerated to improve strength, balance, gait.
--- NOTE | 2018-02-01 11:45 | PT.OTN ---
Current Diagnoses Hemiplegia, unspecified affecting right dominant side (02/01/18) Muscle weakness (generalized) (02/01/18) Other muscle spasm (02/01/18) Difficulty in walking, not elsewhere classified (02/01/18) Other lack of coordination (02/01/18) Unspecified lack of coordination (02/01/18) Physical Therapy Treatment Note PT-OP-A Visit Information Start: 01/25/18 14:39 Freq: Status: Active Protocol: Document 02/02/18 09:24 SAK (Rec: 02/02/18 09:30 [facility] [id number]) Out-Patient Physical Therapy Visit Information Visit Information Visit Type Treatment Note Visit Start Time 11:45 Visit Stop Time 12:30 Total Visit Minutes 45 Visit Number 161 PT-OP-C Subjective Start: 01/25/18 14:39 Freq: Status: Active Protocol: Document 02/02/18 09:24 SAK (Rec: 02/02/18 09:30 [facility] [id number]) OP-PT Subjective Patient Comments Patient Comments No new c/o. Feels aquatic therapy is helpful, feels good to be able to get body vertical. PT-OP-S Aquatic Treatment Start: 01/25/18 14:39 Freq: Status: Active Protocol: Document 02/02/18 09:24 SAK (Rec: 02/02/18 09:30 [facility] [id number]) Aquatics Treatment Pool Entry/Exit Pool Entry/Exit Method Lift Assistance Maximal Assist Comments Max assist 2 Water Walking Forwards Water Level Chest Level Walking Equipment Neck Float, PT assist, aquatic parallel bars Level of Assistance Maximal Assist Comments assist for balance and weight- shift, advances LE's very short distance Spinal Exercises 2 Details seated crunch Body Position Sitting Water Level Neck Level Equipment Neck Float, [place] float Reps/Duration 10x Comments seated on pool platform 1 Details roll partial prone to supine Equipment Neck Float Reps/Duration 5 Comments min assist Balance 2 Details vertical balance Body Position Standing Water Level Neck Level 1 Details partial supine to stand Water Level Neck Level Equipment [place] float, neck float Comments max assist Bent Activities Other Activities deep water hang Equipment neck float, [place] float Swim Strokes Backstroke Equipment Ankle Floats Neck Float Other Equipment Used [place] float Laps/Duration 5' Comments max assist for LE's, primarily uses left UE PT-OP-T Assessment and Plan Start: 01/25/18 14:39 Freq: Status: Active Protocol: Document 02/02/18 09:24 [facility] (Rec: 02/02/18 09:30 [facility] [id number]) Physical Therapy Assessment Impairments Impairments Activity Tolerance Balance Coordination Functional Activities Functional Mobility Gait ROM Soft Tissue Mobility Strength Tone Assessment Summary Assessment Jonnie is demonstrating an improvement in comfort level in water. Transfers onto lift very challenging, difficult to break tone in LE's. Physical Therapy Plan Frequency and Duration Frequency of Treatment 2x/Week Duration of Treatment 13 Plan of Care Start Date 12/13/17 Plan of Care End Date 03/06/18 Next Visit Focus/Plan Next Visit Plan Continue to progress aquatic exercises as tolerated to improve strength, balance, gait.
--- NOTE | 2018-02-02 09:30 | PT.OTN ---
Current Diagnoses Hemiplegia, unspecified affecting right dominant side (02/01/18) Muscle weakness (generalized) (02/01/18) Other muscle spasm (02/01/18) Difficulty in walking, not elsewhere classified (02/01/18) Other lack of coordination (02/01/18) Unspecified lack of coordination (02/01/18) Physical Therapy Treatment Note PT-OP-A Visit Information Start: 01/25/18 14:39 Freq: Status: Active Protocol: Document 02/02/18 09:24 SAK (Rec: 02/02/18 09:30 [facility] [id number]) Out-Patient Physical Therapy Visit Information Visit Information Visit Type Treatment Note Visit Start Time 11:45 Visit Stop Time 12:30 Total Visit Minutes 45 Visit Number 161 PT-OP-C Subjective Start: 01/25/18 14:39 Freq: Status: Active Protocol: Document 02/02/18 09:24 SAK (Rec: 02/02/18 09:30 [facility] [id number]) OP-PT Subjective Patient Comments Patient Comments No new c/o. Feels aquatic therapy is helpful, feels good to be able to get body vertical. PT-OP-S Aquatic Treatment Start: 01/25/18 14:39 Freq: Status: Active Protocol: Document 02/02/18 09:24 SAK (Rec: 02/02/18 09:30 [facility] [id number]) Aquatics Treatment Pool Entry/Exit Pool Entry/Exit Method Lift Assistance Maximal Assist Comments Max assist 2 Water Walking Forwards Water Level Chest Level Walking Equipment Neck Float, PT assist, aquatic parallel bars Level of Assistance Maximal Assist Comments assist for balance and weight- shift, advances LE's very short distance Spinal Exercises 2 Details seated crunch Body Position Sitting Water Level Neck Level Equipment Neck Float, [place] float Reps/Duration 10x Comments seated on pool platform 1 Details roll partial prone to supine Equipment Neck Float Reps/Duration 5 Comments min assist Balance 2 Details vertical balance Body Position Standing Water Level Neck Level 1 Details partial supine to stand Water Level Neck Level Equipment [place] float, neck float Comments max assist [place] Activities Other Activities deep water hang Equipment neck float, [place] float Swim Strokes Backstroke Equipment Ankle Floats Neck Float Other Equipment Used [place] float Laps/Duration 5' Comments max assist for LE's, primarily uses left UE PT-OP-T Assessment and Plan Start: 01/25/18 14:39 Freq: Status: Active Protocol: Document 02/02/18 09:24 [facility] (Rec: 02/02/18 09:30 [facility] [id number]) Physical Therapy Assessment Impairments Impairments Activity Tolerance Balance Coordination Functional Activities Functional Mobility Gait ROM Soft Tissue Mobility Strength Tone Assessment Summary Assessment Jonnie is demonstrating an improvement in comfort level in water. Transfers onto lift very challenging, difficult to break tone in LE's. Physical Therapy Plan Frequency and Duration Frequency of Treatment 2x/Week Duration of Treatment 13 Plan of Care Start Date 12/13/17 Plan of Care End Date 03/06/18 Next Visit Focus/Plan Next Visit Plan Continue to progress aquatic exercises as tolerated to improve strength, balance, gait.
--- NOTE | 2018-02-09 13:07 | PT.OTN ---
Current Diagnoses Hemiplegia, unspecified affecting right dominant side (02/06/18) Muscle weakness (generalized) (02/06/18) Other muscle spasm (02/06/18) Difficulty in walking, not elsewhere classified (02/06/18) Other lack of coordination (02/06/18) Unspecified lack of coordination (02/06/18) Physical Therapy Treatment Note PT-OP-A Visit Information Start: 01/25/18 14:39 Freq: Status: Active Protocol: Document 02/06/18 11:45 SAK (Rec: 02/09/18 13:07 [facility] [id number]) Out-Patient Physical Therapy Visit Information Visit Information Visit Type Treatment Note Visit Start Time 11:45 Visit Stop Time 12:30 Total Visit Minutes 47 Visit Number 162 Number of ASSURANCE ASSOCIATE Visits 0 PT-OP-C Subjective Start: 01/25/18 14:39 Freq: Status: Active Protocol: Document 02/06/18 11:45 SAK (Rec: 02/09/18 13:07 [facility] [id number]) OP-PT Subjective Patient Comments Patient Comments Likes using aquatic parallel bars PT-OP-S Aquatic Treatment Start: 01/25/18 14:39 Freq: Status: Active Protocol: Document 02/06/18 11:45 SAK (Rec: 02/09/18 13:07 [facility] [id number]) Aquatics Treatment Pool Entry/Exit Pool Entry/Exit Method Lift Assistance Maximal Assist Comments Max assist 2 Water Walking Sideways Water Level Chest Level Walking Equipment neck float, [place] float, parallel bars Level of Assistance Minimal Assistance Forwards Water Level Chest Level Walking Equipment Neck Float, PT assist, aquatic parallel bars Level of Assistance Maximal Assist Comments assist for balance and weight- shift, advances LE's very short distance Spinal Exercises 2 Details seated crunch Body Position Sitting Water Level Neck Level Equipment Neck Float, [place] float Reps/Duration 10x Comments seated on pool platform Balance 2 Details vertical balance Body Position Standing Water Level [place] 1 Details partial supine to stand Water Level Neck Level Equipment [place] float, neck float Comments max assist [place] Activities Other Activities deep water hang Equipment neck float, [place] float Swim Strokes Backstroke Equipment Ankle Floats Neck Float Other Equipment Used [place] float Laps/Duration 5' Comments max assist for LE's, primarily uses left UE PT-OP-T Assessment and Plan Start: 01/25/18 14:39 Freq: Status: Active Protocol: Document 02/06/18 11:45 [facility] (Rec: 02/09/18 13:07 [facility] [id number]) Physical Therapy Assessment Assessment Summary Assessment Gait in parallel bars with straight LE's, ankle planterflexion (on toes) Physical Therapy Plan Frequency and Duration Frequency of Treatment 2x/Week Duration of Treatment 13 Plan of Care Start Date 12/13/17 Plan of Care End Date 03/06/18 Next Visit Focus/Plan Next Visit Plan Continue to progress aquatic exercises as tolerated to improve strength, balance, gait. Please Sign and Return: I have reviewed this Plan of Care and certify that the skilled therapy services above are required to meet the patient???s needs. Physician Signature Date Printed Name and Credentials Clinical Instructor Signature Printed Name and Credentials
--- NOTE | 2018-02-17 16:28 | PT.OTN ---
Current Diagnoses Hemiplegia, unspecified affecting right dominant side (02/17/18) Muscle weakness (generalized) (02/17/18) Other muscle spasm (02/17/18) Difficulty in walking, not elsewhere classified (02/17/18) Other lack of coordination (02/17/18) Unspecified lack of coordination (02/17/18) Physical Therapy Treatment Note PT-OP-A Visit Information Start: 01/25/18 14:39 Freq: Status: Active Protocol: Document 02/17/18 16:23 [facility] (Rec: 02/17/18 16:28 [facility] [id number]) Out-Patient Physical Therapy Visit Information Visit Information Visit Type Treatment Note Visit Start Time 11:45 Visit Stop Time 12:30 Total Visit Minutes 47 Visit Number 163 Number of ASTROCHEMIST Visits 0 PT-OP-C Subjective Start: 01/25/18 14:39 Freq: Status: Active Protocol: Document 02/17/18 16:23 [facility] (Rec: 02/17/18 16:28 [facility] [id number]) OP-PT Subjective Patient Comments Patient Comments C/o right-sided back pain; I think Isabel been plopping into my chair too hard. states he wants to be able to walk again. Working on standing at home. Feels aquatic therapy helpful. Caregiver reports Jonnie's LE's easier to bend recently PT-OP-S Aquatic Treatment Start: 01/25/18 14:39 Freq: Status: Active Protocol: Document 02/17/18 16:23 [facility] (Rec: 02/17/18 16:28 [facility] [id number]) Aquatics Treatment Pool Entry/Exit Pool Entry/Exit Method Lift Assistance Maximal Assist Comments Max assist 2 Water Walking Sideways Water Level Chest Level Walking Equipment neck float, [place] float, parallel bars Level of Assistance Minimal Assistance Forwards Water Level Chest Level Walking Equipment Neck Float, PT assist, aquatic parallel bars Level of Assistance Moderate Assistance Maximal Assist Verbal Cues Comments assist for balance and weight- shift, advances LE's very short distance Spinal Exercises 2 Details seated crunch Body Position Sitting Water Level Neck Level Equipment Neck Float, [place] float Reps/Duration 10x Comments seated on pool platform Balance 2 Details vertical balance Body Position Standing Water Level [place] 1 Details partial supine to stand Water Level Neck Level Equipment [place] float, neck float Comments max assist [place] Activities Other Activities deep water hang Equipment neck float, [place] float Swim Strokes Backstroke Equipment Ankle Floats Neck Float Other Equipment Used [place] float Laps/Duration 5' Comments max assist for LE's, primarily uses left UE PT-OP-T Assessment and Plan Start: 01/25/18 14:39 Freq: Status: Active Protocol: Document 02/17/18 16:23 [facility] (Rec: 02/17/18 16:28 [facility] [id number]) Physical Therapy Assessment Impairments Impairments Activity Tolerance Balance Coordination Functional Activities Functional Mobility Gait ROM Soft Tissue Mobility Strength Tone Assessment Summary Assessment Jonnie is unable to actively flex at his knees, small amplitude of movement in both frontal and sagittal planes with LE's due to tone. Effort for advancement of his LE's comes from his trunk and UE's mostly. Physical Therapy Plan Frequency and Duration Frequency of Treatment 2x/Week Duration of Treatment 3 months Plan of Care Start Date 12/13/17 Plan of Care End Date 03/06/18 Next Visit Focus/Plan Next Visit Plan Continue PT per POC to progress aquatic exercises as tolerated to improve strength, balance, gait. Please Sign and Return: I have reviewed this Plan of Care and certify that the skilled therapy services above are required to meet the patient?s needs. Physician Signature Date Printed Name and Credentials Clinical Instructor Signature Printed Name and Credentials
--- NOTE | 2018-03-06 18:01 | PT.OTN ---
Current Diagnoses Hemiplegia, unspecified affecting right dominant side (03/06/18) Muscle weakness (generalized) (03/06/18) Other muscle spasm (03/06/18) Difficulty in walking, not elsewhere classified (03/06/18) Other lack of coordination (03/06/18) Unspecified lack of coordination (03/06/18) Physical Therapy Treatment Note PT-OP-A Visit Information Start: 01/25/18 14:39 Freq: Status: Active Protocol: Document 03/06/18 15:15 DCW (Rec: 03/06/18 18:01 DCW [id number]) Out-Patient Physical Therapy Visit Information Visit Information Visit Type Progress Note Visit Start Time 15:15 Visit Stop Time 16:00 Total Visit Minutes 45 Visit Number 164 Number of BARREL PLATER Visits 0 Evaluation Information Evaluation Date 02/20/16 PT-OP-B Current Condition Start: 03/06/18 17:37 Freq: Status: Active Protocol: Document 03/06/18 15:15 DCW (Rec: 03/06/18 18:01 DCW [id number]) Current Condition History of Current Condition History of Current Condition Please see patient's chart is therapy source for full history and initial evaluation Treatment Goals Patient/Caregiver Goals Pt states he wants to get back to walking more. PT-OP-C Subjective Start: 01/25/18 14:39 Freq: Status: Active Protocol: Document 03/06/18 15:15 DCW (Rec: 03/06/18 18:01 DCW [id number]) OP-PT Subjective Patient Comments Patient Comments Pt reports he has been enjoying aqua therapy. PT-OP-G Mobility & Gait Start: 03/06/18 17:37 Freq: Status: Active Protocol: Document 03/06/18 15:15 DCW (Rec: 03/06/18 18:01 DCW [id number]) OP Mobility Evaluation Transfers Sit to Stand Sit->Stand from wheelchair in parallel bars Mod Ax1 OP Gait Assessment Comments Gait Comments Pt ambulates 3' in // bars Mod Ax1 with increased gastroc tone/toe walking, decreased ability to flex knee, decreased foot clearance and difficulty advancing right foot. PT-OP-H Neuro Start: 03/06/18 17:37 Freq: Status: Active Protocol: Document 03/06/18 15:15 DCW (Rec: 03/06/18 18:01 DCW [id number]) Muscle Tone Tone Assessment Right Lower Extremity Flexor Tone Description Severe Hypertonicity Extensor Tone Description Severe Hypertonicity Left Lower Extremity Flexor Tone Description Severe Hypertonicity Extensor Tone Description Severe Hypertonicity PT-OP-K Range of Motion Start: 03/06/18 17:37 Freq: Status: Active Protocol: Document 03/06/18 15:15 DCW (Rec: 03/06/18 18:01 DCW [id number]) Hip Goniometric Range of Motion Hip Measured in Degrees Right Passive Testing Position Supine Flexion w/Knee Flexed 82 Abduction 20 Left Passive Testing Position Supine Flexion w/Knee Flexed 102 Abduction 22 PT-OP-M Strength Start: 03/06/18 17:37 Freq: Status: Active Protocol: Document 03/06/18 15:15 DCW (Rec: 03/06/18 18:01 DCW [id number]) Elbow/Forearm Strength Elbow and Forearm Manual Muscle Testing Right Flexion (C6) 4- Good- Extension (C7) 3- Fair- Left Flexion (C6) 4+ Good+ Extension (C7) 5 Normal PT-OP-Q Treatments Start: 03/06/18 17:37 Freq: Status: Active Protocol: Document 03/06/18 15:15 DCW (Rec: 03/06/18 18:01 DCW [id number]) Cardio Equipment Recumbent Stepper (Sci-Fit) Duration (Minutes) 7 Resistance 3 Seat Position Removed Gym Equipment Cable Column (Body Solid) Rows Resistance 20# Lat Pull Down Resistance 30# Therapeutic Exercises Sitting Exercises 1 Sitting Exercise Name Shoulder flexion Pulleys Side bilateral Equipment Used Eda Gait Training Gait Activity 1 Device Used // bars Level of Assistance Mod Ax1 Distance/Duration 3' fwd, 3' bkwd Neuro Re-Education Treatment Coordination Activities 1 Details Cone activities - Kicking target cones Equipment Multi-colored cones PT-OP-T Assessment and Plan Start: 01/25/18 14:39 Freq: Status: Active Protocol: Document 03/06/18 15:15 DCW (Rec: 03/06/18 18:01 DCW [id number]) Physical Therapy Assessment Impairments Impairments Activity Tolerance Balance Coordination Functional Activities Functional Mobility Gait ROM Soft Tissue Mobility Strength Tone Goals Four Impairment Transfers Flanging Machine Operator Goal (LTG) Pt to perform sit->stand transfer in // bars CGA LTG Duration 05/06/18 Three Impairment Strength Prison Goal (LTG) Right elbow extension MMT to 3 +/5 LTG Duration 05/06/18 Two Impairment Hip ROM Short Term Goal (STG) Bilateral hip flexion to 110? STG Duration 04/05/18 Prison Goal (LTG) Bilateral Abduction to 30? LTG Duration 05/06/18 One Impairment Gait Flanging Machine Operator Goal (LTG) Pt to ambulate 50' Min Ax1 /c FWW LTG Duration 05/06/18 Assessment Summary Assessment Pt has been getting comfortable with aquatic therapy, however today's reassessment was performed on land. Pt has continued his decline with ambulation ability, but strength and mobility show slight improvements since his last reassessment. Physical Therapy Plan Frequency and Duration Frequency of Treatment 2x/Week Duration of Treatment 3 months Plan of Care Start Date 03/06/18 Plan of Care End Date 06/06/18 Next Visit Focus/Plan Next Note Type Treatment Note Next Visit Plan Continue PT per POC to progress aquatic exercises as tolerated to improve strength, balance, gait.
--- NOTE | 2018-03-06 18:02 | PT.OPPOC ---
Current Diagnoses Hemiplegia, unspecified affecting right dominant side (03/06/18) Muscle weakness (generalized) (03/06/18) Other muscle spasm (03/06/18) Difficulty in walking, not elsewhere classified (03/06/18) Other lack of coordination (03/06/18) Unspecified lack of coordination (03/06/18) Provider Visit Care Team Role Provider Type Katie Arreola MD Attending Provider Physician Family Provider Primary Care Provider Specialty: Family Practice Address: [address] [place] [address], [facility] Email: [email or web address] Plan Of Care PT-OP-T Assessment and Plan Start: 01/25/18 14:39 Freq: Status: Active Protocol: Document 03/06/18 15:15 DCW (Rec: 03/06/18 18:01 DCW [id number]) Physical Therapy Assessment Impairments Impairments Activity Tolerance Balance Coordination Functional Activities Functional Mobility Gait ROM Soft Tissue Mobility Strength Tone Goals Four Impairment Transfers Costumer Assistant Goal (LTG) Pt to perform sit->stand transfer in // bars CGA LTG Duration 05/06/18 Three Impairment Strength Costumer Assistant Goal (LTG) Right elbow extension MMT to 3 +/5 LTG Duration 05/06/18 Two Impairment Hip ROM Short Term Goal (STG) Bilateral hip flexion to 110? STG Duration 04/05/18 [facility] Goal (LTG) Bilateral Abduction to 30? LTG Duration 05/06/18 One Impairment Gait Costumer Assistant Goal (LTG) Pt to ambulate 50' Min Ax1 /c FWW LTG Duration 05/06/18 Assessment Summary Assessment Pt has been getting comfortable with aquatic therapy, however today's reassessment was performed on land. Pt has continued his decline with ambulation ability, but strength and mobility show slight improvements since his last reassessment. Physical Therapy Plan Frequency and Duration Frequency of Treatment 2x/Week Duration of Treatment 3 months Plan of Care Start Date 03/06/18 Plan of Care End Date 06/06/18 Next Visit Focus/Plan Next Note Type Treatment Note Next Visit Plan Continue PT per POC to progress aquatic exercises as tolerated to improve strength, balance, gait. Plan of Care Dates Plan of Care Start Date 03/06/18 Plan of Care End Date 06/06/18
--- NOTE | 2018-03-08 14:28 | PT.OTN ---
Current Diagnoses Hemiplegia, unspecified affecting right dominant side (03/08/18) Muscle weakness (generalized) (03/08/18) Other muscle spasm (03/08/18) Difficulty in walking, not elsewhere classified (03/08/18) Other lack of coordination (03/08/18) Unspecified lack of coordination (03/08/18) Physical Therapy Treatment Note PT-OP-A Visit Information Start: 01/25/18 14:39 Freq: Status: Active Protocol: Document 03/08/18 13:50 DCW (Rec: 03/08/18 14:28 DCW [id number]) Out-Patient Physical Therapy Visit Information Visit Information Visit Type Treatment Note Visit Note Pt arrived 5 minutes late Visit Start Time 13:50 Visit Stop Time 14:30 Total Visit Minutes 40 Visit Number 165 Number of EMR ANALYST Visits 0 Evaluation Information Evaluation Date 02/20/16 PT-OP-B Current Condition Start: 03/06/18 17:37 Freq: Status: Active Protocol: Document 03/06/18 15:15 DCW (Rec: 03/06/18 18:01 DCW [id number]) Current Condition History of Current Condition History of Current Condition Please see patient's chart is therapy source for full history and initial evaluation Treatment Goals Patient/Caregiver Goals Pt states he wants to get back to walking more. PT-OP-C Subjective Start: 01/25/18 14:39 Freq: Status: Active Protocol: Document 03/08/18 13:50 DCW (Rec: 03/08/18 14:28 DCW [id number]) OP-PT Subjective Patient Comments Patient Comments Pt reports all the heat is not helping at all. PT-OP-Q Treatments Start: 03/06/18 17:37 Freq: Status: Active Protocol: Document 03/08/18 13:50 DCW (Rec: 03/08/18 14:28 DCW [id number]) Cardio Equipment Recumbent Stepper (Sci-Fit) Duration (Minutes) 7 Resistance 3 Seat Position Removed Gym Equipment Cable Column (Body Solid) Rows Resistance 20# Lat Pull Down Resistance 30# Therapeutic Exercises Sitting Exercises 1 Sitting Exercise Name Shoulder flexion Pulleys Side bilateral Equipment Used Eda Gait Training Gait Activity 1 Device Used // bars Level of Assistance Mod Ax1 Distance/Duration 3' fwd, 3' bkwd Neuro Re-Education Treatment Coordination Activities 1 Details Cone activities - Kicking target cones Equipment Multi-colored cones PT-OP-T Assessment and Plan Start: 01/25/18 14:39 Freq: Status: Active Protocol: Document 03/08/18 13:50 DCW (Rec: 03/08/18 14:28 DCW [id number]) Physical Therapy Assessment Impairments Impairments Activity Tolerance Balance Coordination Functional Activities Functional Mobility Gait ROM Soft Tissue Mobility Strength Tone Goals Four Impairment Transfers [facility] Goal (LTG) Pt to perform sit->stand transfer in // bars CGA LTG Duration 05/06/18 Three Impairment Strength [facility] Goal (LTG) Right elbow extension MMT to 3 +/5 LTG Duration 05/06/18 Two Impairment Hip ROM Short Term Goal (STG) Bilateral hip flexion to 110? STG Duration 04/05/18 [facility] Goal (LTG) Bilateral Abduction to 30? LTG Duration 05/06/18 One Impairment Gait [facility] Goal (LTG) Pt to ambulate 50' Min Ax1 /c FWW LTG Duration 05/06/18 Assessment Summary Assessment Pt struggled again today standing and walking in the // bars. Physical Therapy Plan Frequency and Duration Frequency of Treatment 2x/Week Duration of Treatment 3 months Plan of Care Start Date 03/06/18 Plan of Care End Date 06/06/18 Therapeutic Interventions Therapeutic Interventions Aquatic Therapy Balance Training Gait Training Manual Therapy Self-Care/Home Management Soft Tissue Mobilization Therapeutic Activities Therapeutic Exercises Next Visit Focus/Plan Next Note Type Treatment Note Next Visit Plan Continue PT per POC to progress aquatic exercises as tolerated to improve strength, balance, gait.
--- NOTE | 2018-03-24 16:50 | PT.OTN ---
Current Diagnoses Hemiplegia, unspecified affecting right dominant side (03/24/18) Muscle weakness (generalized) (03/24/18) Other muscle spasm (03/24/18) Difficulty in walking, not elsewhere classified (03/24/18) Other lack of coordination (03/24/18) Unspecified lack of coordination (03/24/18) Physical Therapy Treatment Note PT-OP-A Visit Information Start: 01/25/18 14:39 Freq: Status: Active Protocol: Document 03/24/18 13:15 SAK (Rec: 03/24/18 16:50 [facility] [id number]) Out-Patient Physical Therapy Visit Information Visit Information Visit Type Treatment Note Visit Start Time 13:15 Visit Stop Time 14:20 Total Visit Minutes 50 Visit Number 166 Number of CHIMNEY SUPERVISOR BRICK Visits 0 PT-OP-B Current Condition Start: 03/06/18 17:37 Freq: Status: Active Protocol: Document 03/06/18 15:15 DCW (Rec: 03/06/18 18:01 DCW [id number]) Current Condition History of Current Condition History of Current Condition Please see patient's chart is therapy source for full history and initial evaluation Treatment Goals Patient/Caregiver Goals Pt states he wants to get back to walking more. PT-OP-C Subjective Start: 01/25/18 14:39 Freq: Status: Active Protocol: Document 03/24/18 13:15 SAK (Rec: 03/24/18 16:50 [facility] [id number]) OP-PT Subjective Patient Comments Patient Comments Glad to be back in aquatic therapy PT-OP-G Mobility & Gait Start: 03/06/18 17:37 Freq: Status: Active Protocol: Document 03/06/18 15:15 DCW (Rec: 03/06/18 18:01 DCW [id number]) OP Mobility Evaluation Transfers Sit to Stand Sit->Stand from wheelchair in parallel bars Mod Ax1 OP Gait Assessment Comments Gait Comments Pt ambulates 3' in // bars Mod Ax1 with increased gastroc tone/toe walking, decreased ability to flex knee, decreased foot clearance and difficulty advancing right foot. PT-OP-H Neuro Start: 03/06/18 17:37 Freq: Status: Active Protocol: Document 03/06/18 15:15 DCW (Rec: 03/06/18 18:01 DCW [id number]) Muscle Tone Tone Assessment Right Lower Extremity Flexor Tone Description Severe Hypertonicity Extensor Tone Description Severe Hypertonicity Left Lower Extremity Flexor Tone Description Severe Hypertonicity Extensor Tone Description Severe Hypertonicity PT-OP-K Range of Motion Start: 03/06/18 17:37 Freq: Status: Active Protocol: Document 03/06/18 15:15 DCW (Rec: 03/06/18 18:01 DCW [id number]) Hip Goniometric Range of Motion Hip Measured in Degrees Right Passive Testing Position Supine Flexion w/Knee Flexed 82 Abduction 20 Left Passive Testing Position Supine Flexion w/Knee Flexed 102 Abduction 22 PT-OP-M Strength Start: 03/06/18 17:37 Freq: Status: Active Protocol: Document 03/06/18 15:15 DCW (Rec: 03/06/18 18:01 DCW [id number]) Elbow/Forearm Strength Elbow and Forearm Manual Muscle Testing Right Flexion (C6) 4- Good- Extension (C7) 3- Fair- Left Flexion (C6) 4+ Good+ Extension (C7) 5 Normal PT-OP-Q Treatments Start: 03/06/18 17:37 Freq: Status: Active Protocol: Document 03/08/18 13:50 DCW (Rec: 03/08/18 14:28 DCW [id number]) Cardio Equipment Recumbent Stepper (Sci-Fit) Duration (Minutes) 7 Resistance 3 Seat Position Removed Gym Equipment Cable Column (Body Solid) Rows Resistance 20# Lat Pull Down Resistance 30# Therapeutic Exercises Sitting Exercises 1 Sitting Exercise Name Shoulder flexion Pulleys Side bilateral Equipment Used Eda Gait Training Gait Activity 1 Device Used // bars Level of Assistance Mod Ax1 Distance/Duration 3' fwd, 3' bkwd Neuro Re-Education Treatment Coordination Activities 1 Details Cone activities - Kicking target cones Equipment Multi-colored cones PT-OP-S Aquatic Treatment Start: 01/25/18 14:39 Freq: Status: Active Protocol: Document 03/24/18 13:15 SAK (Rec: 03/24/18 16:50 SAK [id number]) Aquatics Treatment Pool Entry/Exit Pool Entry/Exit Method Lift Assistance Maximal Assist Comments Max assist 2 Water Walking Sideways Water Level Chest Level Walking Equipment neck float, [place] float, parallel bars Level of Assistance Minimal Assistance Forwards Water Level Chest Level Walking Equipment Neck Float, PT assist, aquatic parallel bars Level of Assistance Moderate Assistance Maximal Assist Verbal Cues Comments assist for balance and weight- shift, advances LE's very short distance Spinal Exercises 2 Details seated crunch Body Position Sitting Water Level Neck Level Equipment Neck Float, [place] float Reps/Duration 10x Comments seated on pool platform Balance 2 Details vertical balance Body Position Standing Water Level [place] 1 Details partial supine to stand Water Level Neck Level Equipment [place] float, neck float Comments max assist Swim Strokes Backstroke Equipment Ankle Floats Neck Float Other Equipment Used [place] float Laps/Duration 5' Comments max assist for LE's, primarily uses left UE PT-OP-T Assessment and Plan Start: 01/25/18 14:39 Freq: Status: Active Protocol: Document 03/24/18 13:15 LOLA (Rec: 03/24/18 16:50 [facility] [id number]) Physical Therapy Assessment Impairments Impairments Activity Tolerance Balance Coordination Functional Activities Functional Mobility Gait ROM Soft Tissue Mobility Strength Tone Assessment Summary Assessment Jonnie was able to flex at left hip and knee occasionally with water walking, but overall severe extensor tone prevents. Physical Therapy Plan Frequency and Duration Frequency of Treatment 2x/Week Duration of Treatment 3 months Plan of Care Start Date 03/06/18 Plan of Care End Date 06/06/18 Therapeutic Interventions Therapeutic Interventions Aquatic Therapy Balance Training Gait Training Manual Therapy Self-Care/Home Management Soft Tissue Mobilization Therapeutic Activities Therapeutic Exercises Next Visit Focus/Plan Next Note Type Treatment Note Next Visit Plan Continue PT per POC to progress aquatic exercises as tolerated to improve strength, balance, gait.
--- NOTE | 2018-03-27 17:03 | PT.OTN ---
Current Diagnoses Hemiplegia, unspecified affecting right dominant side (03/27/18) Muscle weakness (generalized) (03/27/18) Other muscle spasm (03/27/18) Difficulty in walking, not elsewhere classified (03/27/18) Other lack of coordination (03/27/18) Unspecified lack of coordination (03/27/18) Physical Therapy Treatment Note PT-OP-A Visit Information Start: 01/25/18 14:39 Freq: Status: Active Protocol: Document 03/27/18 13:45 SAK (Rec: 03/27/18 17:03 SAK [id number]) Out-Patient Physical Therapy Visit Information Visit Information Visit Type Treatment Note Visit Start Time 13:45 Visit Stop Time 14:30 Total Visit Minutes 50 Visit Number 166 Number of LOTTERY MANAGER Visits 0 PT-OP-B Current Condition Start: 03/06/18 17:37 Freq: Status: Active Protocol: Document 03/06/18 15:15 DCW (Rec: 03/06/18 18:01 DCW [id number]) Current Condition History of Current Condition History of Current Condition Please see patient's chart is therapy source for full history and initial evaluation Treatment Goals Patient/Caregiver Goals Pt states he wants to get back to walking more. PT-OP-C Subjective Start: 01/25/18 14:39 Freq: Status: Active Protocol: Document 03/27/18 13:45 SAK (Rec: 03/27/18 17:03 SAK [id number]) OP-PT Subjective Patient Comments Patient Comments Reports he fell over weekend: I sat before I was at my chair. Reports soreness in right LE but no serious injury . PT-OP-G Mobility & Gait Start: 03/06/18 17:37 Freq: Status: Active Protocol: Document 03/06/18 15:15 DCW (Rec: 03/06/18 18:01 DCW [id number]) OP Mobility Evaluation Transfers Sit to Stand Sit->Stand from wheelchair in parallel bars Mod Ax1 OP Gait Assessment Comments Gait Comments Pt ambulates 3' in // bars Mod Ax1 with increased gastroc tone/toe walking, decreased ability to flex knee, decreased foot clearance and difficulty advancing right foot. PT-OP-H Neuro Start: 03/06/18 17:37 Freq: Status: Active Protocol: Document 03/06/18 15:15 DCW (Rec: 03/06/18 18:01 DCW [id number]) Muscle Tone Tone Assessment Right Lower Extremity Flexor Tone Description Severe Hypertonicity Extensor Tone Description Severe Hypertonicity Left Lower Extremity Flexor Tone Description Severe Hypertonicity Extensor Tone Description Severe Hypertonicity PT-OP-K Range of Motion Start: 03/06/18 17:37 Freq: Status: Active Protocol: Document 03/06/18 15:15 DCW (Rec: 03/06/18 18:01 DCW [id number]) Hip Goniometric Range of Motion Hip Measured in Degrees Right Passive Testing Position Supine Flexion w/Knee Flexed 82 Abduction 20 Left Passive Testing Position Supine Flexion w/Knee Flexed 102 Abduction 22 PT-OP-M Strength Start: 03/06/18 17:37 Freq: Status: Active Protocol: Document 03/06/18 15:15 DCW (Rec: 03/06/18 18:01 DCW [id number]) Elbow/Forearm Strength Elbow and Forearm Manual Muscle Testing Right Flexion (C6) 4- Good- Extension (C7) 3- Fair- Left Flexion (C6) 4+ Good+ Extension (C7) 5 Normal PT-OP-Q Treatments Start: 03/06/18 17:37 Freq: Status: Active Protocol: Document 03/08/18 13:50 DCW (Rec: 03/08/18 14:28 DCW [id number]) Cardio Equipment Recumbent Stepper (Sci-Fit) Duration (Minutes) 7 Resistance 3 Seat Position Removed Gym Equipment Cable Column (Body Solid) Rows Resistance 20# Lat Pull Down Resistance 30# Therapeutic Exercises Sitting Exercises 1 Sitting Exercise Name Shoulder flexion Pulleys Side bilateral Equipment Used Eda Gait Training Gait Activity 1 Device Used // bars Level of Assistance Mod Ax1 Distance/Duration 3' fwd, 3' bkwd Neuro Re-Education Treatment Coordination Activities 1 Details Cone activities - Kicking target cones Equipment Multi-colored cones PT-OP-S Aquatic Treatment Start: 01/25/18 14:39 Freq: Status: Active Protocol: Document 03/27/18 13:45 SAK (Rec: 03/27/18 17:03 SAK [id number]) Aquatics Treatment Pool Entry/Exit Pool Entry/Exit Method Lift Assistance Maximal Assist Comments Max assist 2 Water Walking Sideways Water Level Chest Level Walking Equipment neck float, [place] float, parallel bars Level of Assistance Minimal Assistance Forwards Water Level Chest Level Walking Equipment Neck Float, PT assist, aquatic parallel bars Level of Assistance Moderate Assistance Maximal Assist Verbal Cues Comments assist for balance and weight- shift, advances LE's very short distance Spinal Exercises 2 Details seated crunch Body Position Sitting Water Level Neck Level Equipment Neck Float, [place] float Reps/Duration 10x Comments seated on pool platform Balance 2 Details vertical balance Body Position Standing Water Level [place] Comments mod assist 1 Details partial supine to stand Water Level Neck Level Equipment [place] float, neck float Comments max assist Swim Strokes Backstroke Equipment Ankle Floats Neck Float Other Equipment Used [place] float Laps/Duration 5' Comments max assist for LE's, primarily uses left UE PT-OP-T Assessment and Plan Start: 01/25/18 14:39 Freq: Status: Active Protocol: Document 03/27/18 13:45 LOLA (Rec: 03/27/18 17:03 SAK [id number]) Physical Therapy Assessment Impairments Impairments Activity Tolerance Balance Coordination Functional Activities Functional Mobility Gait ROM Soft Tissue Mobility Strength Tone Goals Four Impairment Transfers Group Home Goal (LTG) Pt to perform sit->stand transfer in // bars CGA LTG Duration 05/06/18 Three Impairment Strength Group Home Goal (LTG) Right elbow extension MMT to 3 +/5 LTG Duration 05/06/18 Two Impairment Hip ROM Short Term Goal (STG) Bilateral hip flexion to 110? STG Duration 04/05/18 Nursing Specialist Goal (LTG) Bilateral Abduction to 30? LTG Duration 05/06/18 One Impairment Gait Group Home Goal (LTG) Pt to ambulate 50' Min Ax1 /c FWW LTG Duration 05/06/18 Assessment Summary Assessment Increased stiffness today and occasional c/o right LE pain. Unable to actively flex either knee today. Physical Therapy Plan Frequency and Duration Frequency of Treatment 2x/Week Duration of Treatment 3 months Plan of Care Start Date 03/06/18 Plan of Care End Date 06/06/18 Therapeutic Interventions Therapeutic Interventions Aquatic Therapy Balance Training Gait Training Manual Therapy Self-Care/Home Management Soft Tissue Mobilization Therapeutic Activities Therapeutic Exercises Next Visit Focus/Plan Next Note Type Treatment Note Next Visit Plan Continue PT per POC to progress aquatic exercises as tolerated to improve strength, balance, gait.
--- NOTE | 2018-03-29 16:38 | PT.OTN ---
Current Diagnoses Hemiplegia, unspecified affecting right dominant side (03/29/18) Muscle weakness (generalized) (03/29/18) Other muscle spasm (03/29/18) Difficulty in walking, not elsewhere classified (03/29/18) Other lack of coordination (03/29/18) Unspecified lack of coordination (03/29/18) Physical Therapy Treatment Note PT-OP-A Visit Information Start: 01/25/18 14:39 Freq: Status: Active Protocol: Document 03/29/18 13:45 SAK (Rec: 03/29/18 16:38 SAK [id number]) Out-Patient Physical Therapy Visit Information Visit Information Visit Type Treatment Note Visit Start Time 13:45 Visit Stop Time 14:30 Total Visit Minutes 50 Visit Number 168 Number of BURR FILER Visits 0 PT-OP-B Current Condition Start: 03/06/18 17:37 Freq: Status: Active Protocol: Document 03/06/18 15:15 DCW (Rec: 03/06/18 18:01 DCW [id number]) Current Condition History of Current Condition History of Current Condition Please see patient's chart is therapy source for full history and initial evaluation Treatment Goals Patient/Caregiver Goals Pt states he wants to get back to walking more. PT-OP-C Subjective Start: 01/25/18 14:39 Freq: Status: Active Protocol: Document 03/29/18 13:45 SAK (Rec: 03/29/18 16:38 SAK [id number]) OP-PT Subjective Patient Comments Patient Comments Right LE soreness less. PT-OP-G Mobility & Gait Start: 03/06/18 17:37 Freq: Status: Active Protocol: Document 03/06/18 15:15 DCW (Rec: 03/06/18 18:01 DCW [id number]) OP Mobility Evaluation Transfers Sit to Stand Sit->Stand from wheelchair in parallel bars Mod Ax1 OP Gait Assessment Comments Gait Comments Pt ambulates 3' in // bars Mod Ax1 with increased gastroc tone/toe walking, decreased ability to flex knee, decreased foot clearance and difficulty advancing right foot. PT-OP-H Neuro Start: 03/06/18 17:37 Freq: Status: Active Protocol: Document 03/06/18 15:15 DCW (Rec: 03/06/18 18:01 DCW [id number]) Muscle Tone Tone Assessment Right Lower Extremity Flexor Tone Description Severe Hypertonicity Extensor Tone Description Severe Hypertonicity Left Lower Extremity Flexor Tone Description Severe Hypertonicity Extensor Tone Description Severe Hypertonicity PT-OP-K Range of Motion Start: 03/06/18 17:37 Freq: Status: Active Protocol: Document 03/06/18 15:15 DCW (Rec: 03/06/18 18:01 DCW [id number]) Hip Goniometric Range of Motion Hip Measured in Degrees Right Passive Testing Position Supine Flexion w/Knee Flexed 82 Abduction 20 Left Passive Testing Position Supine Flexion w/Knee Flexed 102 Abduction 22 PT-OP-M Strength Start: 03/06/18 17:37 Freq: Status: Active Protocol: Document 03/06/18 15:15 DCW (Rec: 03/06/18 18:01 DCW [id number]) Elbow/Forearm Strength Elbow and Forearm Manual Muscle Testing Right Flexion (C6) 4- Good- Extension (C7) 3- Fair- Left Flexion (C6) 4+ Good+ Extension (C7) 5 Normal PT-OP-Q Treatments Start: 03/06/18 17:37 Freq: Status: Active Protocol: Document 03/08/18 13:50 DCW (Rec: 03/08/18 14:28 DCW [id number]) Cardio Equipment Recumbent Stepper (Sci-Fit) Duration (Minutes) 7 Resistance 3 Seat Position Removed Gym Equipment Cable Column (Body Solid) Rows Resistance 20# Lat Pull Down Resistance 30# Therapeutic Exercises Sitting Exercises 1 Sitting Exercise Name Shoulder flexion Pulleys Side bilateral Equipment Used Eda Gait Training Gait Activity 1 Device Used // bars Level of Assistance Mod Ax1 Distance/Duration 3' fwd, 3' bkwd Neuro Re-Education Treatment Coordination Activities 1 Details Cone activities - Kicking target cones Equipment Multi-colored cones PT-OP-S Aquatic Treatment Start: 01/25/18 14:39 Freq: Status: Active Protocol: Document 03/29/18 13:45 SAK (Rec: 03/29/18 16:38 SAK [id number]) Aquatics Treatment Pool Entry/Exit Pool Entry/Exit Method Lift Assistance Maximal Assist Comments Max assist 2 Water Walking Sideways Water Level Chest Level Walking Equipment neck float, [place] float, parallel bars Level of Assistance Minimal Assistance Forwards Water Level Chest Level Walking Equipment Neck Float, PT assist, aquatic parallel bars Level of Assistance Moderate Assistance Maximal Assist Verbal Cues Comments assist for balance and weight- shift, advances LE's very short distance Spinal Exercises 2 Details seated crunch Body Position Sitting Water Level Neck Level Equipment Neck Float, [place] float Reps/Duration 10x Comments seated on pool platform Balance 2 Details vertical balance Body Position Standing Water Level [place] Comments mod assist 1 Details partial supine to stand Water Level Neck Level Equipment [place] float, neck float Comments max assist Swim Strokes Backstroke Equipment Ankle Floats Neck Float Other Equipment Used [place] float Laps/Duration 5' Comments max assist for LE's, primarily uses left UE PT-OP-T Assessment and Plan Start: 01/25/18 14:39 Freq: Status: Active Protocol: Document 03/29/18 13:45 LOLA (Rec: 03/29/18 16:38 [facility] [id number]) Physical Therapy Assessment Impairments Impairments Activity Tolerance Balance Coordination Functional Activities Functional Mobility Gait ROM Soft Tissue Mobility Strength Tone Goals Four Impairment Transfers Senior Care Goal (LTG) Pt to perform sit->stand transfer in // bars CGA LTG Duration 05/06/18 Three Impairment Strength Lagging Machine Operator Goal (LTG) Right elbow extension MMT to 3 +/5 LTG Duration 05/06/18 Two Impairment Hip ROM Short Term Goal (STG) Bilateral hip flexion to 110? STG Duration 04/05/18 Senior Care Goal (LTG) Bilateral Abduction to 30? LTG Duration 05/06/18 One Impairment Gait Senior Care Goal (LTG) Pt to ambulate 50' Min Ax1 /c FWW LTG Duration 05/06/18 Assessment Summary Assessment Mild improvement in ability to ambulate in chest to neck level water. Physical Therapy Plan Frequency and Duration Frequency of Treatment 2x/Week Duration of Treatment 3 months Plan of Care Start Date 03/06/18 Plan of Care End Date 06/06/18 Therapeutic Interventions Therapeutic Interventions Aquatic Therapy Balance Training Gait Training Manual Therapy Self-Care/Home Management Soft Tissue Mobilization Therapeutic Activities Therapeutic Exercises Next Visit Focus/Plan Next Note Type Treatment Note Next Visit Plan Continue PT per POC to progress aquatic exercises as tolerated to improve strength, balance, gait.
--- NOTE | 2018-04-03 16:39 | PT.OTN ---
Current Diagnoses Hemiplegia, unspecified affecting right dominant side (04/03/18) Muscle weakness (generalized) (04/03/18) Other muscle spasm (04/03/18) Difficulty in walking, not elsewhere classified (04/03/18) Other lack of coordination (04/03/18) Unspecified lack of coordination (04/03/18) Physical Therapy Treatment Note PT-OP-A Visit Information Start: 01/25/18 14:39 Freq: Status: Active Protocol: Document 04/03/18 13:45 SAK (Rec: 04/03/18 16:39 SAK [id number]) Out-Patient Physical Therapy Visit Information Visit Information Visit Type Treatment Note Visit Start Time 13:45 Visit Stop Time 14:30 Total Visit Minutes 51 Visit Number 169 Number of PORTFOLIO ACCOUNTANT Visits 0 PT-OP-B Current Condition Start: 03/06/18 17:37 Freq: Status: Active Protocol: Document 03/06/18 15:15 DCW (Rec: 03/06/18 18:01 DCW [id number]) Current Condition History of Current Condition History of Current Condition Please see patient's chart is therapy source for full history and initial evaluation Treatment Goals Patient/Caregiver Goals Pt states he wants to get back to walking more. PT-OP-C Subjective Start: 01/25/18 14:39 Freq: Status: Active Protocol: Document 04/03/18 13:45 SAK (Rec: 04/03/18 16:39 SAK [id number]) OP-PT Subjective Patient Comments Patient Comments No pain right LE anymore. Feels aquatic therapy helpful. PT-OP-G Mobility & Gait Start: 03/06/18 17:37 Freq: Status: Active Protocol: Document 03/06/18 15:15 DCW (Rec: 03/06/18 18:01 DCW [id number]) OP Mobility Evaluation Transfers Sit to Stand Sit->Stand from wheelchair in parallel bars Mod Ax1 OP Gait Assessment Comments Gait Comments Pt ambulates 3' in // bars Mod Ax1 with increased gastroc tone/toe walking, decreased ability to flex knee, decreased foot clearance and difficulty advancing right foot. PT-OP-H Neuro Start: 03/06/18 17:37 Freq: Status: Active Protocol: Document 03/06/18 15:15 DCW (Rec: 03/06/18 18:01 DCW [id number]) Muscle Tone Tone Assessment Right Lower Extremity Flexor Tone Description Severe Hypertonicity Extensor Tone Description Severe Hypertonicity Left Lower Extremity Flexor Tone Description Severe Hypertonicity Extensor Tone Description Severe Hypertonicity PT-OP-K Range of Motion Start: 03/06/18 17:37 Freq: Status: Active Protocol: Document 03/06/18 15:15 DCW (Rec: 03/06/18 18:01 DCW [id number]) Hip Goniometric Range of Motion Hip Measured in Degrees Right Passive Testing Position Supine Flexion w/Knee Flexed 82 Abduction 20 Left Passive Testing Position Supine Flexion w/Knee Flexed 102 Abduction 22 PT-OP-M Strength Start: 03/06/18 17:37 Freq: Status: Active Protocol: Document 03/06/18 15:15 DCW (Rec: 03/06/18 18:01 DCW [id number]) Elbow/Forearm Strength Elbow and Forearm Manual Muscle Testing Right Flexion (C6) 4- Good- Extension (C7) 3- Fair- Left Flexion (C6) 4+ Good+ Extension (C7) 5 Normal PT-OP-Q Treatments Start: 03/06/18 17:37 Freq: Status: Active Protocol: Document 03/08/18 13:50 DCW (Rec: 03/08/18 14:28 DCW [id number]) Cardio Equipment Recumbent Stepper (Sci-Fit) Duration (Minutes) 7 Resistance 3 Seat Position Removed Gym Equipment Cable Column (Body Solid) Rows Resistance 20# Lat Pull Down Resistance 30# Therapeutic Exercises Sitting Exercises 1 Sitting Exercise Name Shoulder flexion Pulleys Side bilateral Equipment Used Eda Gait Training Gait Activity 1 Device Used // bars Level of Assistance Mod Ax1 Distance/Duration 3' fwd, 3' bkwd Neuro Re-Education Treatment Coordination Activities 1 Details Cone activities - Kicking target cones Equipment Multi-colored cones PT-OP-S Aquatic Treatment Start: 01/25/18 14:39 Freq: Status: Active Protocol: Document 04/03/18 13:45 SAK (Rec: 04/03/18 16:39 SAK [id number]) Aquatics Treatment Pool Entry/Exit Pool Entry/Exit Method Lift Assistance Maximal Assist Comments Max assist 2 Water Walking Sideways Water Level Chest Level Walking Equipment neck float, [place] float, parallel bars Level of Assistance Minimal Assistance Forwards Water Level Chest Level Walking Equipment Neck Float, PT assist, aquatic parallel bars Level of Assistance Moderate Assistance Maximal Assist Verbal Cues Comments assist for balance and weight- shift, advances LE's very short distance Spinal Exercises 2 Details seated crunch Body Position Sitting Water Level Neck Level Equipment Neck Float, [place] float Reps/Duration 12x Comments seated on pool platform Balance 2 Details vertical balance Body Position Standing Water Level [place] Comments deep and shallow water 1 Details partial supine to stand Water Level Neck Level Equipment [place] float, neck float Comments mod to max assist Swim Strokes Backstroke Equipment Ankle Floats Neck Float Other Equipment Used [place] float Laps/Duration 5' Comments max assist for LE's, primarily uses left UE PT-OP-T Assessment and Plan Start: 01/25/18 14:39 Freq: Status: Active Protocol: Document 04/03/18 13:45 SAK (Rec: 04/03/18 16:39 SAK [id number]) Physical Therapy Assessment Goals Four Impairment Transfers Occupational Therapy Assist Goal (LTG) Pt to perform sit->stand transfer in // bars CGA LTG Duration 05/06/18 Three Impairment Strength Occupational Therapy Assist Goal (LTG) Right elbow extension MMT to 3 +/5 LTG Duration 05/06/18 Two Impairment Hip ROM Short Term Goal (STG) Bilateral hip flexion to 110? STG Duration 04/05/18 Group Home Goal (LTG) Bilateral Abduction to 30? LTG Duration 05/06/18 One Impairment Gait Group Home Goal (LTG) Pt to ambulate 50' Min Ax1 /c FWW LTG Duration 05/06/18 Assessment Summary Assessment Today Jonnie demonstrated some ability to activate core musculature briefly for standing balance in shallow water Physical Therapy Plan Frequency and Duration Frequency of Treatment 2x/Week Duration of Treatment 3 months Plan of Care Start Date 03/06/18 Plan of Care End Date 06/06/18 Therapeutic Interventions Therapeutic Interventions Aquatic Therapy Balance Training Gait Training Manual Therapy Self-Care/Home Management Soft Tissue Mobilization Therapeutic Activities Therapeutic Exercises Next Visit Focus/Plan Next Note Type Treatment Note Next Visit Plan Emphasis on core strengthening in addition to LE ROM, strengthening, and gait training in aquatic environment.
--- NOTE | 2018-04-14 12:09 | PT.OTN ---
Current Diagnoses Hemiplegia, unspecified affecting right dominant side (04/14/18) Muscle weakness (generalized) (04/14/18) Other muscle spasm (04/14/18) Difficulty in walking, not elsewhere classified (04/14/18) Other lack of coordination (04/14/18) Unspecified lack of coordination (04/14/18) Physical Therapy Treatment Note PT-OP-A Visit Information Start: 01/25/18 14:39 Freq: Status: Active Protocol: Document 04/14/18 11:15 DCW (Rec: 04/14/18 12:08 DCW [id number]) Out-Patient Physical Therapy Visit Information Visit Information Visit Type Treatment Note Visit Start Time 11:15 Visit Stop Time 12:00 Total Visit Minutes 45 Visit Number 170 Number of TECHNOLOGY SALES REPRESENTATIVE Visits 0 PT-OP-B Current Condition Start: 03/06/18 17:37 Freq: Status: Active Protocol: Document 03/06/18 15:15 DCW (Rec: 03/06/18 18:01 DCW [id number]) Current Condition History of Current Condition History of Current Condition Please see patient's chart is therapy source for full history and initial evaluation Treatment Goals Patient/Caregiver Goals Pt states he wants to get back to walking more. PT-OP-C Subjective Start: 01/25/18 14:39 Freq: Status: Active Protocol: Document 04/14/18 11:15 DCW (Rec: 04/14/18 12:08 DCW [id number]) OP-PT Subjective Patient Comments Patient Comments Pt continues to enjoy aquatic therapy, feels he is able to move better. PT-OP-G Mobility & Gait Start: 03/06/18 17:37 Freq: Status: Active Protocol: Document 03/06/18 15:15 DCW (Rec: 03/06/18 18:01 DCW [id number]) OP Mobility Evaluation Transfers Sit to Stand Sit->Stand from wheelchair in parallel bars Mod Ax1 OP Gait Assessment Comments Gait Comments Pt ambulates 3' in // bars Mod Ax1 with increased gastroc tone/toe walking, decreased ability to flex knee, decreased foot clearance and difficulty advancing right foot. PT-OP-H Neuro Start: 03/06/18 17:37 Freq: Status: Active Protocol: Document 03/06/18 15:15 DCW (Rec: 03/06/18 18:01 DCW [id number]) Muscle Tone Tone Assessment Right Lower Extremity Flexor Tone Description Severe Hypertonicity Extensor Tone Description Severe Hypertonicity Left Lower Extremity Flexor Tone Description Severe Hypertonicity Extensor Tone Description Severe Hypertonicity PT-OP-K Range of Motion Start: 03/06/18 17:37 Freq: Status: Active Protocol: Document 03/06/18 15:15 DCW (Rec: 03/06/18 18:01 DCW [id number]) Hip Goniometric Range of Motion Hip Measured in Degrees Right Passive Testing Position Supine Flexion w/Knee Flexed 82 Abduction 20 Left Passive Testing Position Supine Flexion w/Knee Flexed 102 Abduction 22 PT-OP-M Strength Start: 03/06/18 17:37 Freq: Status: Active Protocol: Document 03/06/18 15:15 DCW (Rec: 03/06/18 18:01 DCW [id number]) Elbow/Forearm Strength Elbow and Forearm Manual Muscle Testing Right Flexion (C6) 4- Good- Extension (C7) 3- Fair- Left Flexion (C6) 4+ Good+ Extension (C7) 5 Normal PT-OP-Q Treatments Start: 03/06/18 17:37 Freq: Status: Active Protocol: Document 04/14/18 11:15 DCW (Rec: 04/14/18 12:09 DCW [id number]) Cardio Equipment Recumbent Stepper (Sci-Fit) Duration (Minutes) 7 Resistance 3 Seat Position Removed Gym Equipment Cable Column (Body Solid) Rows Resistance 20# Lat Pull Down Resistance 30# Therapeutic Exercises Sitting Exercises 1 Sitting Exercise Name Shoulder flexion Pulleys Side bilateral Equipment Used Eda Therapeutic Activity Therapeutic Activity 1 Name Sit<->Stand at // bars Reps/Minutes x15 Neuro Re-Education Treatment Coordination Activities 1 Details Cone activities - Kicking target cones Equipment Multi-colored cones PT-OP-T Assessment and Plan Start: 01/25/18 14:39 Freq: Status: Active Protocol: Document 04/14/18 11:15 DCW (Rec: 04/14/18 12:08 DCW [id number]) Physical Therapy Assessment Impairments Impairments Activity Tolerance Balance Coordination Functional Activities Functional Mobility Gait ROM Soft Tissue Mobility Strength Tone Goals Four Impairment Transfers Custodial Goal (LTG) Pt to perform sit->stand transfer in // bars CGA LTG Duration 05/06/18 Three Impairment Strength Management Professor Goal (LTG) Right elbow extension MMT to 3 +/5 LTG Duration 05/06/18 Two Impairment Hip ROM Short Term Goal (STG) Bilateral hip flexion to 110? STG Duration 04/05/18 Management Professor Goal (LTG) Bilateral Abduction to 30? LTG Duration 05/06/18 One Impairment Gait Custodial Goal (LTG) Pt to ambulate 50' Min Ax1 /c FWW LTG Duration 05/06/18 Assessment Summary Assessment Pt continues to struggle with land-based therapy, will likely benefit from continued aquatic therapy. Physical Therapy Plan Frequency and Duration Frequency of Treatment 2x/Week Duration of Treatment 3 months Plan of Care Start Date 03/06/18 Plan of Care End Date 06/06/18 Therapeutic Interventions Therapeutic Interventions Aquatic Therapy Balance Training Gait Training Manual Therapy Self-Care/Home Management Soft Tissue Mobilization Therapeutic Activities Therapeutic Exercises Next Visit Focus/Plan Next Note Type Treatment Note Next Visit Plan Emphasis on core strengthening in addition to LE ROM, strengthening, and gait training in aquatic environment.
--- NOTE | 2018-04-14 16:56 | PT.OTN ---
Late entry not done 04/14/18 for 04/12/18 PT treatment Current Diagnoses Hemiplegia, unspecified affecting right dominant side (04/14/18) Muscle weakness (generalized) (04/14/18) Other muscle spasm (04/14/18) Difficulty in walking, not elsewhere classified (04/14/18) Other lack of coordination (04/14/18) Unspecified lack of coordination (04/14/18) Physical Therapy Treatment Note PT-OP-A Visit Information Start: 01/25/18 14:39 Freq: Status: Active Protocol: Document 04/14/18 11:15 DCW (Rec: 04/14/18 12:08 DCW [id number]) Out-Patient Physical Therapy Visit Information Visit Information Visit Type Treatment Note Visit Start Time 11:15 Visit Stop Time 12:00 Total Visit Minutes 45 Visit Number 170 Number of VULCANIZING PRESS OPERATOR Visits 0 PT-OP-B Current Condition Start: 03/06/18 17:37 Freq: Status: Active Protocol: Document 03/06/18 15:15 DCW (Rec: 03/06/18 18:01 DCW [id number]) Current Condition History of Current Condition History of Current Condition Please see patient's chart is therapy source for full history and initial evaluation Treatment Goals Patient/Caregiver Goals Pt states he wants to get back to walking more. PT-OP-C Subjective Start: 01/25/18 14:39 Freq: Status: Active Protocol: Document 04/14/18 11:15 DCW (Rec: 04/14/18 12:08 DCW [id number]) OP-PT Subjective Patient Comments Patient Comments Pt continues to enjoy aquatic therapy, feels he is able to move better. PT-OP-G Mobility & Gait Start: 03/06/18 17:37 Freq: Status: Active Protocol: Document 03/06/18 15:15 DCW (Rec: 03/06/18 18:01 DCW [id number]) OP Mobility Evaluation Transfers Sit to Stand Sit->Stand from wheelchair in parallel bars Mod Ax1 OP Gait Assessment Comments Gait Comments Pt ambulates 3' in // bars Mod Ax1 with increased gastroc tone/toe walking, decreased ability to flex knee, decreased foot clearance and difficulty advancing right foot. PT-OP-H Neuro Start: 03/06/18 17:37 Freq: Status: Active Protocol: Document 03/06/18 15:15 DCW (Rec: 03/06/18 18:01 DCW [id number]) Muscle Tone Tone Assessment Right Lower Extremity Flexor Tone Description Severe Hypertonicity Extensor Tone Description Severe Hypertonicity Left Lower Extremity Flexor Tone Description Severe Hypertonicity Extensor Tone Description Severe Hypertonicity PT-OP-K Range of Motion Start: 03/06/18 17:37 Freq: Status: Active Protocol: Document 03/06/18 15:15 DCW (Rec: 03/06/18 18:01 DCW [id number]) Hip Goniometric Range of Motion Hip Measured in Degrees Right Passive Testing Position Supine Flexion w/Knee Flexed 82 Abduction 20 Left Passive Testing Position Supine Flexion w/Knee Flexed 102 Abduction 22 PT-OP-M Strength Start: 03/06/18 17:37 Freq: Status: Active Protocol: Document 03/06/18 15:15 DCW (Rec: 03/06/18 18:01 DCW [id number]) Elbow/Forearm Strength Elbow and Forearm Manual Muscle Testing Right Flexion (C6) 4- Good- Extension (C7) 3- Fair- Left Flexion (C6) 4+ Good+ Extension (C7) 5 Normal PT-OP-Q Treatments Start: 03/06/18 17:37 Freq: Status: Active Protocol: Document 04/14/18 11:15 DCW (Rec: 04/14/18 12:09 DCW [id number]) Cardio Equipment Recumbent Stepper (Sci-Fit) Duration (Minutes) 7 Resistance 3 Seat Position Removed Gym Equipment Cable Column (Body Solid) Rows Resistance 20# Lat Pull Down Resistance 30# Therapeutic Exercises Sitting Exercises 1 Sitting Exercise Name Shoulder flexion Pulleys Side bilateral Equipment Used Eda Therapeutic Activity Therapeutic Activity 1 Name Sit<->Stand at // bars Reps/Minutes x15 Neuro Re-Education Treatment Coordination Activities 1 Details Cone activities - Kicking target cones Equipment Multi-colored cones PT-OP-S Aquatic Treatment Start: 01/25/18 14:39 Freq: Status: Active Protocol: Document 04/12/18 13:45 SAK (Rec: 04/14/18 16:55 SAK [id number]) Aquatics Treatment Pool Entry/Exit Pool Entry/Exit Method Lift Assistance Maximal Assist Comments Max assist 2 Water Walking Sideways Water Level Chest Level Walking Equipment neck float, [place] float, parallel bars Level of Assistance Minimal Assistance Forwards Water Level Chest Level Walking Equipment Neck Float, PT assist, aquatic parallel bars Level of Assistance Moderate Assistance Maximal Assist Verbal Cues Comments assist for balance and weight- shift, advances LE's very short distance Spinal Exercises 2 Details seated crunch Body Position Sitting Water Level Neck Level Equipment Neck Float, [place] float Reps/Duration 12x Comments seated on pool platform Balance 2 Details vertical balance Body Position Standing Water Level [place] Comments deep and shallow water 1 Details partial supine to stand Water Level Neck Level Equipment [place] float, neck float Comments mod to max assist Swim Strokes Backstroke Equipment Ankle Floats Neck Float Other Equipment Used [place] float Laps/Duration 5' Comments max assist for LE's, primarily uses left UE PT-OP-T Assessment and Plan Start: 01/25/18 14:39 Freq: Status: Active Protocol: Document 04/14/18 11:15 DCW (Rec: 04/14/18 12:08 DCW [id number]) Physical Therapy Assessment Impairments Impairments Activity Tolerance Balance Coordination Functional Activities Functional Mobility Gait ROM Soft Tissue Mobility Strength Tone Goals Four Impairment Transfers Teacher Public Health Goal (LTG) Pt to perform sit->stand transfer in // bars CGA LTG Duration 05/06/18 Three Impairment Strength Nursing Home Goal (LTG) Right elbow extension MMT to 3 +/5 LTG Duration 05/06/18 Two Impairment Hip ROM Short Term Goal (STG) Bilateral hip flexion to 110? STG Duration 04/05/18 Nursing Home Goal (LTG) Bilateral Abduction to 30? LTG Duration 05/06/18 One Impairment Gait Teacher Public Health Goal (LTG) Pt to ambulate 50' Min Ax1 /c FWW LTG Duration 05/06/18 Assessment Summary Assessment Pt continues to struggle with land-based therapy, will likely benefit from continued aquatic therapy. Physical Therapy Plan Frequency and Duration Frequency of Treatment 2x/Week Duration of Treatment 3 months Plan of Care Start Date 03/06/18 Plan of Care End Date 06/06/18 Therapeutic Interventions Therapeutic Interventions Aquatic Therapy Balance Training Gait Training Manual Therapy Self-Care/Home Management Soft Tissue Mobilization Therapeutic Activities Therapeutic Exercises Next Visit Focus/Plan Next Note Type Treatment Note Next Visit Plan Emphasis on core strengthening in addition to LE ROM, strengthening, and gait training in aquatic environment.
--- NOTE | 2018-04-17 17:08 | PT.OTN ---
Current Diagnoses Hemiplegia, unspecified affecting right dominant side (04/17/18) Muscle weakness (generalized) (04/17/18) Other muscle spasm (04/17/18) Difficulty in walking, not elsewhere classified (04/17/18) Other lack of coordination (04/17/18) Unspecified lack of coordination (04/17/18) Physical Therapy Treatment Note PT-OP-A Visit Information Start: 01/25/18 14:39 Freq: Status: Active Protocol: Document 04/17/18 13:45 SAK (Rec: 04/17/18 17:08 SAK [id number]) Out-Patient Physical Therapy Visit Information Visit Information Visit Type Treatment Note Visit Start Time 13:45 Visit Stop Time 14:30 Total Visit Minutes 45 Visit Number [id number] Number of TRUCK ENGINE TECHNICIAN Visits 0 PT-OP-B Current Condition Start: 03/06/18 17:37 Freq: Status: Active Protocol: Document 03/06/18 15:15 DCW (Rec: 03/06/18 18:01 DCW [id number]) Current Condition History of Current Condition History of Current Condition Please see patient's chart is therapy source for full history and initial evaluation Treatment Goals Patient/Caregiver Goals Pt states he wants to get back to walking more. PT-OP-C Subjective Start: 01/25/18 14:39 Freq: Status: Active Protocol: Document 04/17/18 13:45 SAK (Rec: 04/17/18 17:08 SAK [id number]) OP-PT Subjective Patient Comments Patient Comments No new c/o PT-OP-G Mobility & Gait Start: 03/06/18 17:37 Freq: Status: Active Protocol: Document 03/06/18 15:15 DCW (Rec: 03/06/18 18:01 DCW [id number]) OP Mobility Evaluation Transfers Sit to Stand Sit->Stand from wheelchair in parallel bars Mod Ax1 OP Gait Assessment Comments Gait Comments Pt ambulates 3' in // bars Mod Ax1 with increased gastroc tone/toe walking, decreased ability to flex knee, decreased foot clearance and difficulty advancing right foot. PT-OP-H Neuro Start: 03/06/18 17:37 Freq: Status: Active Protocol: Document 03/06/18 15:15 DCW (Rec: 03/06/18 18:01 DCW [id number]) Muscle Tone Tone Assessment Right Lower Extremity Flexor Tone Description Severe Hypertonicity Extensor Tone Description Severe Hypertonicity Left Lower Extremity Flexor Tone Description Severe Hypertonicity Extensor Tone Description Severe Hypertonicity PT-OP-K Range of Motion Start: 03/06/18 17:37 Freq: Status: Active Protocol: Document 03/06/18 15:15 DCW (Rec: 03/06/18 18:01 DCW [id number]) Hip Goniometric Range of Motion Hip Measured in Degrees Right Passive Testing Position Supine Flexion w/Knee Flexed 82 Abduction 20 Left Passive Testing Position Supine Flexion w/Knee Flexed 102 Abduction 22 PT-OP-M Strength Start: 03/06/18 17:37 Freq: Status: Active Protocol: Document 03/06/18 15:15 DCW (Rec: 03/06/18 18:01 DCW [id number]) Elbow/Forearm Strength Elbow and Forearm Manual Muscle Testing Right Flexion (C6) 4- Good- Extension (C7) 3- Fair- Left Flexion (C6) 4+ Good+ Extension (C7) 5 Normal PT-OP-Q Treatments Start: 03/06/18 17:37 Freq: Status: Active Protocol: Document 04/14/18 11:15 DCW (Rec: 04/14/18 12:09 DCW [id number]) Cardio Equipment Recumbent Stepper (Sci-Fit) Duration (Minutes) 7 Resistance 3 Seat Position Removed Gym Equipment Cable Column (Body Solid) Rows Resistance 20# Lat Pull Down Resistance 30# Therapeutic Exercises Sitting Exercises 1 Sitting Exercise Name Shoulder flexion Pulleys Side bilateral Equipment Used Eda Therapeutic Activity Therapeutic Activity 1 Name Sit<->Stand at // bars Reps/Minutes x15 Neuro Re-Education Treatment Coordination Activities 1 Details Cone activities - Kicking target cones Equipment Multi-colored cones PT-OP-S Aquatic Treatment Start: 01/25/18 14:39 Freq: Status: Active Protocol: Document 04/17/18 13:45 SAK (Rec: 04/17/18 17:08 SAK [id number]) Aquatics Treatment Pool Entry/Exit Pool Entry/Exit Method Lift Assistance Maximal Assist Comments Max assist 2 Water Walking Sideways Water Level Chest Level Walking Equipment neck float, [place] float, parallel bars Level of Assistance Minimal Assistance Forwards Water Level Chest Level Walking Equipment Neck Float, PT assist, aquatic parallel bars Level of Assistance Moderate Assistance Maximal Assist Verbal Cues Comments assist for balance and weight- shift, advances LE's very short distance Spinal Exercises 2 Details partial prone to supine recvovery Reps/Duration 2x Balance 2 Details vertical balance Body Position Standing Water Level [place] Comments deep and shallow water 1 Details partial supine to stand Water Level Neck Level Equipment [place] float, neck float Comments mod assist Swim Strokes Backstroke Equipment Ankle Floats Neck Float Other Equipment Used [place] float Laps/Duration 5' Comments max assist for LE's, primarily uses left UE PT-OP-T Assessment and Plan Start: 01/25/18 14:39 Freq: Status: Active Protocol: Document 04/17/18 13:45 [facility] (Rec: 04/17/18 17:08 [facility] [id number]) Physical Therapy Assessment Assessment Summary Assessment Improved advancement of LE's with aquatic parallel bars today. Able to self-recover from partial prone to partial supine with neck and trunk float and close SBA x 2 today. Physical Therapy Plan Frequency and Duration Frequency of Treatment 2x/Week Duration of Treatment 3 months Plan of Care Start Date 03/06/18 Plan of Care End Date 06/06/18 Therapeutic Interventions Therapeutic Interventions Aquatic Therapy Balance Training Gait Training Manual Therapy Self-Care/Home Management Soft Tissue Mobilization Therapeutic Activities Therapeutic Exercises Next Visit Focus/Plan Next Note Type Treatment Note Next Visit Plan Emphasis on core strengthening in addition to LE ROM, strengthening, and gait training in aquatic environment.
--- NOTE | 2018-04-19 16:16 | PT.OTN ---
Current Diagnoses Hemiplegia, unspecified affecting right dominant side (04/19/18) Muscle weakness (generalized) (04/19/18) Other muscle spasm (04/19/18) Difficulty in walking, not elsewhere classified (04/19/18) Other lack of coordination (04/19/18) Unspecified lack of coordination (04/19/18) Physical Therapy Treatment Note PT-OP-A Visit Information Start: 01/25/18 14:39 Freq: Status: Active Protocol: Document 04/19/18 13:45 SAK (Rec: 04/19/18 16:16 SAK [id number]) Out-Patient Physical Therapy Visit Information Visit Information Visit Type Treatment Note Visit Start Time 13:45 Visit Stop Time 14:30 Total Visit Minutes 45 Visit Number [id number] Number of HOUSE DIRECTOR Visits 0 PT-OP-B Current Condition Start: 03/06/18 17:37 Freq: Status: Active Protocol: Document 03/06/18 15:15 DCW (Rec: 03/06/18 18:01 DCW [id number]) Current Condition History of Current Condition History of Current Condition Please see patient's chart is therapy source for full history and initial evaluation Treatment Goals Patient/Caregiver Goals Pt states he wants to get back to walking more. PT-OP-C Subjective Start: 01/25/18 14:39 Freq: Status: Active Protocol: Document 04/19/18 13:45 SAK (Rec: 04/19/18 16:16 SAK [id number]) OP-PT Subjective Patient Comments Patient Comments No right LE pain. Caregiver and patient report they are using footrests more to encourage increased knee flexion due to severe extensor tone. PT-OP-G Mobility & Gait Start: 03/06/18 17:37 Freq: Status: Active Protocol: Document 03/06/18 15:15 DCW (Rec: 03/06/18 18:01 DCW [id number]) OP Mobility Evaluation Transfers Sit to Stand Sit->Stand from wheelchair in parallel bars Mod Ax1 OP Gait Assessment Comments Gait Comments Pt ambulates 3' in // bars Mod Ax1 with increased gastroc tone/toe walking, decreased ability to flex knee, decreased foot clearance and difficulty advancing right foot. PT-OP-H Neuro Start: 03/06/18 17:37 Freq: Status: Active Protocol: Document 06/18/18 15:15 DCW (Rec: 03/06/18 18:01 DCW [id number]) Muscle Tone Tone Assessment Right Lower Extremity Flexor Tone Description Severe Hypertonicity Extensor Tone Description Severe Hypertonicity Left Lower Extremity Flexor Tone Description Severe Hypertonicity Extensor Tone Description Severe Hypertonicity PT-OP-K Range of Motion Start: 03/06/18 17:37 Freq: Status: Active Protocol: Document 03/06/18 15:15 DCW (Rec: 03/06/18 18:01 DCW [id number]) Hip Goniometric Range of Motion Hip Measured in Degrees Right Passive Testing Position Supine Flexion w/Knee Flexed 82 Abduction 20 Left Passive Testing Position Supine Flexion w/Knee Flexed 102 Abduction 22 PT-OP-M Strength Start: 03/06/18 17:37 Freq: Status: Active Protocol: Document 03/06/18 15:15 DCW (Rec: 03/06/18 18:01 DCW [id number]) Elbow/Forearm Strength Elbow and Forearm Manual Muscle Testing Right Flexion (C6) 4- Good- Extension (C7) 3- Fair- Left Flexion (C6) 4+ Good+ Extension (C7) 5 Normal PT-OP-Q Treatments Start: 03/06/18 17:37 Freq: Status: Active Protocol: Document 04/14/18 11:15 DCW (Rec: 04/14/18 12:09 DCW [id number]) Cardio Equipment Recumbent Stepper (Sci-Fit) Duration (Minutes) 7 Resistance 3 Seat Position Removed Gym Equipment Cable Column (Body Solid) Rows Resistance 20# Lat Pull Down Resistance 30# Therapeutic Exercises Sitting Exercises 1 Sitting Exercise Name Shoulder flexion Pulleys Side bilateral Equipment Used Eda Therapeutic Activity Therapeutic Activity 1 Name Sit<->Stand at // bars Reps/Minutes x15 Neuro Re-Education Treatment Coordination Activities 1 Details Cone activities - Kicking target cones Equipment Multi-colored cones PT-OP-S Aquatic Treatment Start: 01/25/18 14:39 Freq: Status: Active Protocol: Document 04/19/18 13:45 SAK (Rec: 04/19/18 16:16 SAK [id number]) Aquatics Treatment Pool Entry/Exit Pool Entry/Exit Method Lift Assistance Maximal Assist Comments Max assist 2 Water Walking Sideways Water Level Chest Level Walking Equipment neck float, [place] float, parallel bars Level of Assistance Minimal Assistance Forwards Water Level Chest Level Walking Equipment Neck Float, PT assist, aquatic parallel bars Level of Assistance Moderate Assistance Maximal Assist Verbal Cues Comments assist for balance and weight- shift, advances LE's very short distance Spinal Exercises 2 Details partial prone to supine recvovery Reps/Duration 3x 1 Details seated crunch Body Position Sitting Water Level Neck Level Equipment neck float, [place] float Reps/Duration 10x Comments seated on pool platform, PT holding LE's down Balance 2 Details vertical balance Body Position Standing Water Level [place] Comments deep and shallow water 1 Details partial supine to stand Water Level Neck Level Equipment [place] float, neck float Comments mod assist [place] Activities Other Activities partial pull-ups with mod assist Swim Strokes Backstroke Equipment Ankle Floats Neck Float Other Equipment Used [place] float Laps/Duration 5' Comments max assist for LE's, primarily uses left UE PT-OP-T Assessment and Plan Start: 01/25/18 14:39 Freq: Status: Active Protocol: Document 04/19/18 13:45 [facility] (Rec: 04/19/18 16:16 [facility] [id number]) Physical Therapy Assessment Assessment Summary Assessment able to do 1 set of 10, and 1 set of 5 of seated crunches ( previously 1 set of 10 only). Patient demonstrates much difficulty with advancing LE's without UE support as he uses UE's and trunk primarily to move LE's for gait Physical Therapy Plan Frequency and Duration Frequency of Treatment 2x/Week Duration of Treatment 3 months Plan of Care Start Date 03/06/18 Plan of Care End Date 06/06/18 Therapeutic Interventions Therapeutic Interventions Aquatic Therapy Balance Training Gait Training Manual Therapy Self-Care/Home Management Soft Tissue Mobilization Therapeutic Activities Therapeutic Exercises Next Visit Focus/Plan Next Note Type Treatment Note Next Visit Plan Continue progression of aquatic therapy for strengthening, balance, gait training, ROM.
--- NOTE | 2018-04-21 12:01 | PT.OTN ---
Current Diagnoses Hemiplegia, unspecified affecting right dominant side (04/21/18) Muscle weakness (generalized) (04/21/18) Other muscle spasm (04/21/18) Difficulty in walking, not elsewhere classified (04/21/18) Other lack of coordination (04/21/18) Unspecified lack of coordination (04/21/18) Physical Therapy Treatment Note PT-OP-A Visit Information Start: 01/25/18 14:39 Freq: Status: Active Protocol: Document 04/21/18 11:20 DCW (Rec: 04/21/18 12:00 DCW [id number]) Out-Patient Physical Therapy Visit Information Visit Information Visit Type Treatment Note Visit Start Time 11:20 Visit Stop Time 12:00 Total Visit Minutes 40 Visit Number [id number] Number of SOIL TESTER Visits 0 PT-OP-B Current Condition Start: 03/06/18 17:37 Freq: Status: Active Protocol: Document 03/06/18 15:15 DCW (Rec: 03/06/18 18:01 DCW [id number]) Current Condition History of Current Condition History of Current Condition Please see patient's chart is therapy source for full history and initial evaluation Treatment Goals Patient/Caregiver Goals Pt states he wants to get back to walking more. PT-OP-C Subjective Start: 01/25/18 14:39 Freq: Status: Active Protocol: Document 04/21/18 11:20 DCW (Rec: 04/21/18 12:00 DCW [id number]) OP-PT Subjective Patient Comments Patient Comments Pt reports that he has been having more trouble standing up, both here and at home. PT-OP-G Mobility & Gait Start: 03/06/18 17:37 Freq: Status: Active Protocol: Document 03/06/18 15:15 DCW (Rec: 03/06/18 18:01 DCW [id number]) OP Mobility Evaluation Transfers Sit to Stand Sit->Stand from wheelchair in parallel bars Mod Ax1 OP Gait Assessment Comments Gait Comments Pt ambulates 3' in // bars Mod Ax1 with increased gastroc tone/toe walking, decreased ability to flex knee, decreased foot clearance and difficulty advancing right foot. PT-OP-H Neuro Start: 03/06/18 17:37 Freq: Status: Active Protocol: Document 03/06/18 15:15 DCW (Rec: 03/06/18 18:01 DCW [id number]) Muscle Tone Tone Assessment Right Lower Extremity Flexor Tone Description Severe Hypertonicity Extensor Tone Description Severe Hypertonicity Left Lower Extremity Flexor Tone Description Severe Hypertonicity Extensor Tone Description Severe Hypertonicity PT-OP-K Range of Motion Start: 03/06/18 17:37 Freq: Status: Active Protocol: Document 03/06/18 15:15 DCW (Rec: 03/06/18 18:01 DCW [id number]) Hip Goniometric Range of Motion Hip Measured in Degrees Right Passive Testing Position Supine Flexion w/Knee Flexed 82 Abduction 20 Left Passive Testing Position Supine Flexion w/Knee Flexed 102 Abduction 22 PT-OP-M Strength Start: 03/06/18 17:37 Freq: Status: Active Protocol: Document 03/06/18 15:15 DCW (Rec: 03/06/18 18:01 DCW [id number]) Elbow/Forearm Strength Elbow and Forearm Manual Muscle Testing Right Flexion (C6) 4- Good- Extension (C7) 3- Fair- Left Flexion (C6) 4+ Good+ Extension (C7) 5 Normal PT-OP-Q Treatments Start: 03/06/18 17:37 Freq: Status: Active Protocol: Document 04/21/18 11:20 DCW (Rec: 04/21/18 12:00 DCW [id number]) Cardio Equipment Recumbent Stepper (Sci-Fit) Duration (Minutes) 7 Resistance 3 Seat Position Removed Gym Equipment Cable Column (Body Solid) Rows Resistance 20# Lat Pull Down Resistance 30# Therapeutic Exercises Sitting Exercises 1 Sitting Exercise Name Shoulder flexion Pulleys Side bilateral Equipment Used Eda Therapeutic Activity Therapeutic Activity 1 Name Sit<->Stand at // bars Reps/Minutes x15 Neuro Re-Education Treatment Coordination Activities 1 Details Cone activities - Kicking target cones Equipment Multi-colored cones PT-OP-S Aquatic Treatment Start: 01/25/18 14:39 Freq: Status: Active Protocol: Document 04/19/18 13:45 SAK (Rec: 04/19/18 16:16 SAK [id number]) Aquatics Treatment Pool Entry/Exit Pool Entry/Exit Method Lift Assistance Maximal Assist Comments Max assist 2 Water Walking Sideways Water Level Chest Level Walking Equipment neck float, [place] float, parallel bars Level of Assistance Minimal Assistance Forwards Water Level Chest Level Walking Equipment Neck Float, PT assist, aquatic parallel bars Level of Assistance Moderate Assistance Maximal Assist Verbal Cues Comments assist for balance and weight- shift, advances LE's very short distance Spinal Exercises 2 Details partial prone to supine recvovery Reps/Duration 3x 1 Details seated crunch Body Position Sitting Water Level Neck Level Equipment neck float, [place] float Reps/Duration 10x Comments seated on pool platform, PT holding LE's down Balance 2 Details vertical balance Body Position Standing Water Level [place] Comments deep and shallow water 1 Details partial supine to stand Water Level Neck Level Equipment [place] float, neck float Comments mod assist [place] Activities Other Activities partial pull-ups with mod assist Swim Strokes Backstroke Equipment Ankle Floats Neck Float Other Equipment Used [place] float Laps/Duration 5' Comments max assist for LE's, primarily uses left UE PT-OP-T Assessment and Plan Start: 01/25/18 14:39 Freq: Status: Active Protocol: Document 04/21/18 11:20 DCW (Rec: 04/21/18 12:00 DCW [id number]) Physical Therapy Assessment Impairments Impairments Activity Tolerance Balance Coordination Functional Activities Functional Mobility Gait ROM Soft Tissue Mobility Strength Tone Goals Four Impairment Transfers Head Chopper Goal (LTG) Pt to perform sit->stand transfer in // bars CGA LTG Duration 05/06/18 Three Impairment Strength Head Chopper Goal (LTG) Right elbow extension MMT to 3 +/5 LTG Duration 05/06/18 Two Impairment Hip ROM Short Term Goal (STG) Bilateral hip flexion to 110? STG Duration 04/05/18 Head Chopper Goal (LTG) Bilateral Abduction to 30? LTG Duration 05/06/18 One Impairment Gait Head Chopper Goal (LTG) Pt to ambulate 50' Min Ax1 /c FWW LTG Duration 05/06/18 Assessment Summary Assessment Pt required increased assistance with sit->stand exercise today Physical Therapy Plan Frequency and Duration Frequency of Treatment 2x/Week Duration of Treatment 3 months Plan of Care Start Date 03/06/18 Plan of Care End Date 06/06/18 Therapeutic Interventions Therapeutic Interventions Aquatic Therapy Balance Training Gait Training Manual Therapy Self-Care/Home Management Soft Tissue Mobilization Therapeutic Activities Therapeutic Exercises Next Visit Focus/Plan Next Note Type Treatment Note Next Visit Plan Continue progression of aquatic therapy for strengthening, balance, gait training, ROM.
--- NOTE | 2018-04-24 17:25 | PT.OTN ---
Current Diagnoses Hemiplegia, unspecified affecting right dominant side (04/24/18) Muscle weakness (generalized) (04/24/18) Other muscle spasm (04/24/18) Difficulty in walking, not elsewhere classified (04/24/18) Other lack of coordination (04/24/18) Unspecified lack of coordination (04/24/18) Physical Therapy Treatment Note PT-OP-A Visit Information Start: 01/25/18 14:39 Freq: Status: Active Protocol: Document 04/24/18 17:20 [facility] (Rec: 04/24/18 17:25 [facility] [id number]) Out-Patient Physical Therapy Visit Information Visit Information Visit Type Treatment Note Visit Start Time 13:15 Visit Stop Time 14:30 Total Visit Minutes 50 Visit Number 175 PT-OP-B Current Condition Start: 03/06/18 17:37 Freq: Status: Active Protocol: Document 03/06/18 15:15 DCW (Rec: 03/06/18 18:01 DCW [id number]) Current Condition History of Current Condition History of Current Condition Please see patient's chart is therapy source for full history and initial evaluation Treatment Goals Patient/Caregiver Goals Pt states he wants to get back to walking more. PT-OP-C Subjective Start: 01/25/18 14:39 Freq: Status: Active Protocol: Document 04/24/18 17:20 [facility] (Rec: 04/24/18 17:25 [facility] [id number]) OP-PT Subjective Patient Comments Patient Comments Feels aquatic therapy helpful PT-OP-G Mobility & Gait Start: 03/06/18 17:37 Freq: Status: Active Protocol: Document 03/06/18 15:15 DCW (Rec: 03/06/18 18:01 DCW [id number]) OP Mobility Evaluation Transfers Sit to Stand Sit->Stand from wheelchair in parallel bars Mod Ax1 OP Gait Assessment Comments Gait Comments Pt ambulates 3' in // bars Mod Ax1 with increased gastroc tone/toe walking, decreased ability to flex knee, decreased foot clearance and difficulty advancing right foot. PT-OP-H Neuro Start: 03/06/18 17:37 Freq: Status: Active Protocol: Document 03/06/18 15:15 DCW (Rec: 03/06/18 18:01 DCW [id number]) Muscle Tone Tone Assessment Right Lower Extremity Flexor Tone Description Severe Hypertonicity Extensor Tone Description Severe Hypertonicity Left Lower Extremity Flexor Tone Description Severe Hypertonicity Extensor Tone Description Severe Hypertonicity PT-OP-K Range of Motion Start: 03/06/18 17:37 Freq: Status: Active Protocol: Document 03/06/18 15:15 DCW (Rec: 03/06/18 18:01 DCW [id number]) Hip Goniometric Range of Motion Hip Measured in Degrees Right Passive Testing Position Supine Flexion w/Knee Flexed 82 Abduction 20 Left Passive Testing Position Supine Flexion w/Knee Flexed 102 Abduction 22 PT-OP-M Strength Start: 03/06/18 17:37 Freq: Status: Active Protocol: Document 03/06/18 15:15 DCW (Rec: 03/06/18 18:01 DCW [id number]) Elbow/Forearm Strength Elbow and Forearm Manual Muscle Testing Right Flexion (C6) 4- Good- Extension (C7) 3- Fair- Left Flexion (C6) 4+ Good+ Extension (C7) 5 Normal PT-OP-Q Treatments Start: 03/06/18 17:37 Freq: Status: Active Protocol: Document 04/21/18 11:20 DCW (Rec: 04/21/18 12:00 DCW [id number]) Cardio Equipment Recumbent Stepper (Sci-Fit) Duration (Minutes) 7 Resistance 3 Seat Position Removed Gym Equipment Cable Column (Body Solid) Rows Resistance 20# Lat Pull Down Resistance 30# Therapeutic Exercises Sitting Exercises 1 Sitting Exercise Name Shoulder flexion Pulleys Side bilateral Equipment Used Eda Therapeutic Activity Therapeutic Activity 1 Name Sit<->Stand at // bars Reps/Minutes x15 Neuro Re-Education Treatment Coordination Activities 1 Details [facility]one activities - Kicking target cones Equipment Multi-colored cones PT-OP-S Aquatic Treatment Start: 01/25/18 14:39 Freq: Status: Active Protocol: Document 04/24/18 17:20 [facility] (Rec: 04/24/18 17:25 SAK [id number]) Aquatics Treatment Pool Entry/Exit Pool Entry/Exit Method Lift Assistance Maximal Assist Comments Max assist 2 Water Walking Sideways Water Level Chest Level Walking Equipment neck float, [place] float, parallel bars Level of Assistance Minimal Assistance Forwards Water Level Chest Level Walking Equipment Neck Float, PT assist, aquatic parallel bars Level of Assistance Moderate Assistance Maximal Assist Verbal Cues Comments assist for balance and weight- shift, advances LE's very short distance Spinal Exercises 2 Details partial prone to supine recvovery Reps/Duration 3x 1 Details seated crunch Body Position Sitting Water Level Neck Level Equipment neck float, [place] float Reps/Duration 10x Comments seated on pool platform, PT holding LE's down Other 1 Details sit to stand Equipment pool platform Reps/Duration 3 Comments mod assist PT-OP-T Assessment and Plan Start: 01/25/18 14:39 Freq: Status: Active Protocol: Document 04/24/18 17:20 [facility]AK (Rec: 04/24/18 17:25 SAK [id number]) Physical Therapy Assessment Impairments Impairments Activity Tolerance Balance Coordination Functional Activities Functional Mobility Gait ROM Soft Tissue Mobility Strength Tone Goals Four Impairment Transfers Instructor Of Nursing Goal (LTG) Pt to perform sit->stand transfer in // bars CGA LTG Duration 05/06/18 Three Impairment Strength Shelter Goal (LTG) Right elbow extension MMT to 3 +/5 LTG Duration 05/06/18 Two Impairment Hip ROM Short Term Goal (STG) Bilateral hip flexion to 110? STG Duration 04/05/18 Shelter Goal (LTG) Bilateral Abduction to 30? LTG Duration 05/06/18 One Impairment Gait Instructor Of Nursing Goal (LTG) Pt to ambulate 50' Min Ax1 /c FWW LTG Duration 05/06/18 Assessment Summary Assessment Good tolerance for aquatic therapy, though minimal ability to actively move LE's without use of trunk, improves through aquatic treatment. Physical Therapy Plan Frequency and Duration Frequency of Treatment 2x/Week Duration of Treatment 3 months Plan of Care Start Date 03/06/18 Plan of Care End Date 06/06/18 Therapeutic Interventions Therapeutic Interventions Aquatic Therapy Balance Training Gait Training Manual Therapy Self-Care/Home Management Soft Tissue Mobilization Therapeutic Activities Therapeutic Exercises Next Visit Focus/Plan Next Note Type Treatment Note Next Visit Plan Further sit to stand reps in aquatic setting,
--- NOTE | 2018-04-26 16:27 | PT.OTN ---
Current Diagnoses Hemiplegia, unspecified affecting right dominant side (04/26/18) Muscle weakness (generalized) (04/26/18) Other muscle spasm (04/26/18) Difficulty in walking, not elsewhere classified (04/26/18) Other lack of coordination (04/26/18) Unspecified lack of coordination (04/26/18) Physical Therapy Treatment Note PT-OP-A Visit Information Start: 01/25/18 14:39 Freq: Status: Active Protocol: Document 04/26/18 13:45 SAK (Rec: 04/26/18 16:27 [facility] [id number]) Out-Patient Physical Therapy Visit Information Visit Information Visit Start Time 13:45 Visit Stop Time 14:30 Total Visit Minutes 51 Visit Number [id number] Number of FIELD EDUCATION DIRECTOR Visits 0 PT-OP-B Current Condition Start: 03/06/18 17:37 Freq: Status: Active Protocol: Document 03/06/18 15:15 DCW (Rec: 03/06/18 18:01 DCW [id number]) Current Condition History of Current Condition History of Current Condition Please see patient's chart is therapy source for full history and initial evaluation Treatment Goals Patient/Caregiver Goals Pt states he wants to get back to walking more. PT-OP-C Subjective Start: 01/25/18 14:39 Freq: Status: Active Protocol: Document 04/26/18 13:45 SAK (Rec: 04/26/18 16:27 [facility] [id number]) OP-PT Subjective Patient Comments Patient Comments No new c/o. Comes to pool with new caregiver PT-OP-G Mobility & Gait Start: 03/06/18 17:37 Freq: Status: Active Protocol: Document 03/06/18 15:15 DCW (Rec: 03/06/18 18:01 DCW [id number]) OP Mobility Evaluation Transfers Sit to Stand Sit->Stand from wheelchair in parallel bars Mod Ax1 OP Gait Assessment Comments Gait Comments Pt ambulates 3' in // bars Mod Ax1 with increased gastroc tone/toe walking, decreased ability to flex knee, decreased foot clearance and difficulty advancing right foot. PT-OP-H Neuro Start: 03/06/18 17:37 Freq: Status: Active Protocol: Document 03/06/18 15:15 DCW (Rec: 03/06/18 18:01 DCW [id number]) Muscle Tone Tone Assessment Right Lower Extremity Flexor Tone Description Severe Hypertonicity Extensor Tone Description Severe Hypertonicity Left Lower Extremity Flexor Tone Description Severe Hypertonicity Extensor Tone Description Severe Hypertonicity PT-OP-K Range of Motion Start: 03/06/18 17:37 Freq: Status: Active Protocol: Document 03/06/18 15:15 DCW (Rec: 03/06/18 18:01 DCW [id number]) Hip Goniometric Range of Motion Hip Measured in Degrees Right Passive Testing Position Supine Flexion w/Knee Flexed 82 Abduction 20 Left Passive Testing Position Supine Flexion w/Knee Flexed 102 Abduction 22 PT-OP-M Strength Start: 03/06/18 17:37 Freq: Status: Active Protocol: Document 03/06/18 15:15 DCW (Rec: 03/06/18 18:01 DCW [id number]) Elbow/Forearm Strength Elbow and Forearm Manual Muscle Testing Right Flexion (C6) 4- Good- Extension (C7) 3- Fair- Left Flexion (C6) 4+ Good+ Extension (C7) 5 Normal PT-OP-Q Treatments Start: 03/06/18 17:37 Freq: Status: Active Protocol: Document 04/21/18 11:20 DCW (Rec: 04/21/18 12:00 DCW [id number]) Cardio Equipment Recumbent Stepper (Sci-Fit) Duration (Minutes) 7 Resistance 3 Seat Position Removed Gym Equipment Cable Column (Body Solid) Rows Resistance 20# Lat Pull Down Resistance 30# Therapeutic Exercises Sitting Exercises 1 Sitting Exercise Name Shoulder flexion Pulleys Side bilateral Equipment Used Eda Therapeutic Activity Therapeutic Activity 1 Name Sit<->Stand at // bars Reps/Minutes x15 Neuro Re-Education Treatment Coordination Activities 1 Details Cone activities - Kicking target cones Equipment Multi-colored cones PT-OP-S Aquatic Treatment Start: 01/25/18 14:39 Freq: Status: Active Protocol: Document 04/26/18 13:45 SAK (Rec: 04/26/18 16:27 SAK [id number]) Aquatics Treatment Pool Entry/Exit Pool Entry/Exit Method Lift Assistance Maximal Assist Comments Max assist 2 Water Walking Sideways Water Level Chest Level Walking Equipment neck float, yuhaaviatam float, parallel bars Level of Assistance Minimal Assistance Forwards Water Level Chest Level Walking Equipment Neck Float, PT assist, aquatic parallel bars Level of Assistance Moderate Assistance Maximal Assist Verbal Cues Comments assist for balance and weight- shift, advances LE's very short distance Spinal Exercises 2 Details partial prone to supine recvovery Reps/Duration 2x Comments min assist x 1, mod assist x 1 1 Details seated crunch Body Position Sitting Water Level Neck Level Equipment neck float, yuhaaviatam float Reps/Duration 13x Comments seated on pool platform, PT holding LE's down Balance 2 Details vertical balance Body Position Standing Water Level [place] Comments deep and shallow water 1 Details partial supine to stand Water Level Neck Level Equipment yuhaaviatam float, neck float Comments mod assist Swim Strokes Backstroke Equipment Ankle Floats Neck Float Other Equipment Used yuhaaviatam float Laps/Duration 5' Comments max assist for LE's, primarily uses left UE PT-OP-T Assessment and Plan Start: 01/25/18 14:39 Freq: Status: Active Protocol: Document 04/26/18 13:45 SAK (Rec: 04/26/18 16:27 SAK [id number]) Physical Therapy Assessment Goals Four Impairment Transfers Custodial Goal (LTG) Pt to perform sit->stand transfer in // bars CGA LTG Duration 05/06/18 Three Impairment Strength Custodial Goal (LTG) Right elbow extension MMT to 3 +/5 LTG Duration 05/06/18 Two Impairment Hip ROM Short Term Goal (STG) Bilateral hip flexion to 110? STG Duration 04/05/18 Traffic Sign Supervisor Goal (LTG) Bilateral Abduction to 30? LTG Duration 05/06/18 One Impairment Gait Traffic Sign Supervisor Goal (LTG) Pt to ambulate 50' Min Ax1 /c FWW LTG Duration 05/06/18 Assessment Summary Assessment Able to take yuhaaviatam float out for part of parallel [employer] work, needed entire time for supine flutter/backstroke and crunches Physical Therapy Plan Frequency and Duration Frequency of Treatment 2x/Week Duration of Treatment 3 months Plan of Care Start Date 03/06/18 Plan of Care End Date 06/06/18 Therapeutic Interventions Therapeutic Interventions Aquatic Therapy Balance Training Gait Training Manual Therapy Self-Care/Home Management Soft Tissue Mobilization Therapeutic Activities Therapeutic Exercises Next Visit Focus/Plan Next Note Type Treatment Note Next Visit Plan Further sit to stand reps in aquatic setting,
--- NOTE | 2018-05-16 11:00 | PT.OTN ---
Current Diagnoses Hemiplegia, unspecified affecting right dominant side (05/15/18) Muscle weakness (generalized) (05/15/18) Other muscle spasm (05/15/18) Difficulty in walking, not elsewhere classified (05/15/18) Other lack of coordination (05/15/18) Unspecified lack of coordination (05/15/18) Physical Therapy Treatment Note PT-OP-A Visit Information Start: 01/25/18 14:39 Freq: Status: Active Protocol: Document 05/15/18 13:45 SAK (Rec: 05/16/18 10:59 [facility] [id number]) Out-Patient Physical Therapy Visit Information Visit Information Visit Type Treatment Note Visit Start Time 13:45 Visit Stop Time 14:30 Total Visit Minutes 50 Visit Number [id number] Number of RECORD CUTTER Visits 0 PT-OP-B Current Condition Start: 03/06/18 17:37 Freq: Status: Active Protocol: Document 03/06/18 15:15 DCW (Rec: 03/06/18 18:01 DCW [id number]) Current Condition History of Current Condition History of Current Condition Please see patient's chart is therapy source for full history and initial evaluation Treatment Goals Patient/Caregiver Goals Pt states he wants to get back to walking more. PT-OP-C Subjective Start: 01/25/18 14:39 Freq: Status: Active Protocol: Document 05/15/18 13:45 SAK (Rec: 05/16/18 10:59 [facility] [id number]) OP-PT Subjective Patient Comments Patient Comments No new c/o, in better spirits today. PT-OP-G Mobility & Gait Start: 03/06/18 17:37 Freq: Status: Active Protocol: Document 03/06/18 15:15 DCW (Rec: 03/06/18 18:01 DCW [id number]) OP Mobility Evaluation Transfers Sit to Stand Sit->Stand from wheelchair in parallel bars Mod Ax1 OP Gait Assessment Comments Gait Comments Pt ambulates 3' in // bars Mod Ax1 with increased gastroc tone/toe walking, decreased ability to flex knee, decreased foot clearance and difficulty advancing right foot. PT-OP-H Neuro Start: 03/06/18 17:37 Freq: Status: Active Protocol: Document 03/06/18 15:15 DCW (Rec: 03/06/18 18:01 DCW [id number]) Muscle Tone Tone Assessment Right Lower Extremity Flexor Tone Description Severe Hypertonicity Extensor Tone Description Severe Hypertonicity Left Lower Extremity Flexor Tone Description Severe Hypertonicity Extensor Tone Description Severe Hypertonicity PT-OP-K Range of Motion Start: 03/06/18 17:37 Freq: Status: Active Protocol: Document 03/06/18 15:15 DCW (Rec: 03/06/18 18:01 DCW [id number]) Hip Goniometric Range of Motion Hip Measured in Degrees Right Passive Testing Position Supine Flexion w/Knee Flexed 82 Abduction 20 Left Passive Testing Position Supine Flexion w/Knee Flexed 102 Abduction 22 PT-OP-M Strength Start: 03/06/18 17:37 Freq: Status: Active Protocol: Document 03/06/18 15:15 DCW (Rec: 03/06/18 18:01 DCW [id number]) Elbow/Forearm Strength Elbow and Forearm Manual Muscle Testing Right Flexion (C6) 4- Good- Extension (C7) 3- Fair- Left Flexion (C6) 4+ Good+ Extension (C7) 5 Normal PT-OP-Q Treatments Start: 03/06/18 17:37 Freq: Status: Active Protocol: Document 04/21/18 11:20 DCW (Rec: 04/21/18 12:00 DCW [id number]) Cardio Equipment Recumbent Stepper (Sci-Fit) Duration (Minutes) 7 Resistance 3 Seat Position Removed Gym Equipment Cable Column (Body Solid) Rows Resistance 20# Lat Pull Down Resistance 30# Therapeutic Exercises Sitting Exercises 1 Sitting Exercise Name Shoulder flexion Pulleys Side bilateral Equipment Used Eda Therapeutic Activity Therapeutic Activity 1 Name Sit<->Stand at // bars Reps/Minutes x15 Neuro Re-Education Treatment Coordination Activities 1 Details Cone activities - Kicking target cones Equipment Multi-colored cones PT-OP-S Aquatic Treatment Start: 01/25/18 14:39 Freq: Status: Active Protocol: Document 05/15/18 13:45 SAK (Rec: 05/16/18 10:59 SAK [id number]) Aquatics Treatment Pool Entry/Exit Pool Entry/Exit Method Lift Assistance Maximal Assist Comments Max assist 2 Water Walking Sideways Water Level Chest Level Walking Equipment neck float, [place] float, parallel bars Level of Assistance Minimal Assistance Forwards Water Level Chest Level Walking Equipment Neck Float, PT assist, aquatic parallel bars Level of Assistance Moderate Assistance Maximal Assist Verbal Cues Comments assist for balance and weight- shift, advances LE's very short distance Lower Extremity Stretches Adductor stretch Details manual, supine Hamstring stretch Details manual, standing in parallel bars Spinal Exercises 2 Details partial prone to supine recvovery Reps/Duration 2x Comments min assist x 1, mod assist x 1 1 Details seated crunch Body Position Sitting Water Level Neck Level Equipment neck float, [place] float Reps/Duration 13x Comments seated on pool platform, PT holding LE's down Balance 2 Details vertical balance Body Position Standing Water Level [place] Comments deep and shallow water 1 Details partial supine to stand Water Level Neck Level Equipment [place] float, neck float Comments mod assist Swim Strokes Backstroke Equipment Ankle Floats Neck Float Other Equipment Used [place] float Laps/Duration 5' Comments max assist for LE's, primarily uses left UE Other 1 Details sit to stand Equipment pool platform Reps/Duration 3 Comments mod assist PT-OP-T Assessment and Plan Start: 01/25/18 14:39 Freq: Status: Active Protocol: Document 05/15/18 13:45 SAK (Rec: 05/16/18 10:59 [facility] [id number]) Physical Therapy Assessment Impairments Impairments Activity Tolerance Balance Coordination Functional Activities Functional Mobility Gait ROM Soft Tissue Mobility Strength Tone Goals Four Impairment Transfers Fci Goal (LTG) Pt to perform sit->stand transfer in // bars CGA LTG Duration 06/06/18 Three Impairment Strength Concrete Spreader Goal (LTG) Right elbow extension MMT to 3 +/5 LTG Duration 06/06/18 Two Impairment Hip ROM Short Term Goal (STG) Bilateral hip flexion to 110? STG Duration 04/05/18 Concrete Spreader Goal (LTG) Bilateral Abduction to 30? LTG Duration 06/06/18 One Impairment Gait Fci Goal (LTG) Pt to ambulate 50' Min Ax1 /c FWW LTG Duration 06/06/18 Assessment Summary Assessment stretching of LE's requires max assist due to tightness, tone. Physical Therapy Plan Frequency and Duration Frequency of Treatment 2x/Week Duration of Treatment 3 months Plan of Care Start Date 03/06/18 Plan of Care End Date 06/06/18 Therapeutic Interventions Therapeutic Interventions Aquatic Therapy Balance Training Gait Training Manual Therapy Self-Care/Home Management Soft Tissue Mobilization Therapeutic Activities Therapeutic Exercises Next Visit Focus/Plan Next Note Type Treatment Note Next Visit Plan Progression of aquatic exercises, gait training as tolerated. Emphasis on LE flexibility
--- NOTE | 2018-05-17 16:17 | PT.OTN ---
Current Diagnoses Hemiplegia, unspecified affecting right dominant side (05/17/18) Muscle weakness (generalized) (05/17/18) Other muscle spasm (05/17/18) Difficulty in walking, not elsewhere classified (05/17/18) Other lack of coordination (05/17/18) Unspecified lack of coordination (05/17/18) Physical Therapy Treatment Note PT-OP-A Visit Information Start: 01/25/18 14:39 Freq: Status: Active Protocol: Document 05/17/18 16:08 SAK (Rec: 05/17/18 16:17 [facility] [id number]) Out-Patient Physical Therapy Visit Information Visit Information Visit Type Treatment Note Visit Start Time 13:45 Visit Stop Time 14:30 Total Visit Minutes 50 Visit Number 179 Number of ACCOUNTANT Visits 0 Evaluation Information Evaluation Date 02/20/16 PT-OP-B Current Condition Start: 03/06/18 17:37 Freq: Status: Active Protocol: Document 03/06/18 15:15 DCW (Rec: 03/06/18 18:01 DCW [id number]) Current Condition History of Current Condition History of Current Condition Please see patient's chart is therapy source for full history and initial evaluation Treatment Goals Patient/Caregiver Goals Pt states he wants to get back to walking more. PT-OP-C Subjective Start: 01/25/18 14:39 Freq: Status: Active Protocol: Document 05/17/18 16:08 SAK (Rec: 05/17/18 16:17 [facility] [id number]) OP-PT Subjective Patient Comments Patient Comments States his mom usually has to help him out of bed in the am, sometimes able to do on his own but its tricky. PT-OP-G Mobility & Gait Start: 03/06/18 17:37 Freq: Status: Active Protocol: Document 03/06/18 15:15 DCW (Rec: 03/06/18 18:01 DCW [id number]) OP Mobility Evaluation Transfers Sit to Stand Sit->Stand from wheelchair in parallel bars Mod Ax1 OP Gait Assessment Comments Gait Comments Pt ambulates 3' in // bars Mod Ax1 with increased gastroc tone/toe walking, decreased ability to flex knee, decreased foot clearance and difficulty advancing right foot. PT-OP-H Neuro Start: 03/06/18 17:37 Freq: Status: Active Protocol: Document 03/06/18 15:15 DCW (Rec: 03/06/18 18:01 DCW [id number]) Muscle Tone Tone Assessment Right Lower Extremity Flexor Tone Description Severe Hypertonicity Extensor Tone Description Severe Hypertonicity Left Lower Extremity Flexor Tone Description Severe Hypertonicity Extensor Tone Description Severe Hypertonicity PT-OP-K Range of Motion Start: 03/06/18 17:37 Freq: Status: Active Protocol: Document 03/06/18 15:15 DCW (Rec: 03/06/18 18:01 DCW [id number]) Hip Goniometric Range of Motion Hip Measured in Degrees Right Passive Testing Position Supine Flexion w/Knee Flexed 82 Abduction 20 Left Passive Testing Position Supine Flexion w/Knee Flexed 102 Abduction 22 PT-OP-M Strength Start: 03/06/18 17:37 Freq: Status: Active Protocol: Document 03/06/18 15:15 DCW (Rec: 03/06/18 18:01 DCW [id number]) Elbow/Forearm Strength Elbow and Forearm Manual Muscle Testing Right Flexion (C6) 4- Good- Extension (C7) 3- Fair- Left Flexion (C6) 4+ Good+ Extension (C7) 5 Normal PT-OP-Q Treatments Start: 03/06/18 17:37 Freq: Status: Active Protocol: Document 04/21/18 11:20 DCW (Rec: 04/21/18 12:00 DCW [id number]) Cardio Equipment Recumbent Stepper (Sci-Fit) Duration (Minutes) 7 Resistance 3 Seat Position Removed Gym Equipment Cable Column (Body Solid) Rows Resistance 20# Lat Pull Down Resistance 30# Therapeutic Exercises Sitting Exercises 1 Sitting Exercise Name Shoulder flexion Pulleys Side bilateral Equipment Used Eda Therapeutic Activity Therapeutic Activity 1 Name Sit<->Stand at // bars Reps/Minutes x15 Neuro Re-Education Treatment Coordination Activities 1 Details Cone activities - Kicking target cones Equipment Multi-colored cones PT-OP-S Aquatic Treatment Start: 01/25/18 14:39 Freq: Status: Active Protocol: Document 05/17/18 16:08 SAK (Rec: 05/17/18 16:17 SAK [id number]) Aquatics Treatment Pool Entry/Exit Pool Entry/Exit Method Lift Assistance Maximal Assist Comments Max assist 2 Water Walking Sideways Water Level Chest Level Walking Equipment neck float, [place] float, parallel bars Level of Assistance Minimal Assistance Forwards Water Level Chest Level Walking Equipment Neck Float, PT assist, aquatic parallel bars Level of Assistance Moderate Assistance Maximal Assist Verbal Cues Comments assist for balance and weight- shift, advances LE's very short distance Lower Extremity Stretches Adductor stretch Details manual, supine Hamstring stretch Details manual, standing in parallel bars Spinal Exercises 2 Details partial prone to supine recvovery Reps/Duration 2x Comments min assist x 1, mod assist x 1 1 Details seated crunch Body Position Sitting Water Level Neck Level Equipment neck float, [place] float Reps/Duration 2x10 Comments seated on pool platform, PT holding LE's down Balance 2 Details vertical balance Body Position Standing Water Level [place] Comments deep and shallow water 1 Details partial supine to stand Water Level Neck Level Equipment [place] float, neck float Comments mod assist [place] Activities Other Activities partial pull-ups with mod assist Swim Strokes Backstroke Equipment Ankle Floats Neck Float Other Equipment Used [place] float Laps/Duration 5' Comments max assist for LE's, primarily uses left UE PT-OP-T Assessment and Plan Start: 01/25/18 14:39 Freq: Status: Active Protocol: Document 05/17/18 16:08 [facility] (Rec: 05/17/18 16:17 [facility] [id number]) Physical Therapy Assessment Impairments Impairments Activity Tolerance Balance Coordination Functional Activities Functional Mobility Gait ROM Soft Tissue Mobility Strength Tone Goals Four Impairment Transfers Organic Gardening Teacher Goal (LTG) Pt to perform sit->stand transfer in // bars CGA LTG Duration 06/06/18 Three Impairment Strength Organic Gardening Teacher Goal (LTG) Right elbow extension MMT to 3 +/5 LTG Duration 06/06/18 Two Impairment Hip ROM Short Term Goal (STG) Bilateral hip flexion to 110? STG Duration 04/05/18 Care Home Goal (LTG) Bilateral Abduction to 30? LTG Duration 06/06/18 One Impairment Gait Care Home Goal (LTG) Pt to ambulate 50' Min Ax1 /c FWW LTG Duration 06/06/18 Assessment Summary Assessment stretching of LE's requires max assist due to tightness, tone. Physical Therapy Plan Frequency and Duration Frequency of Treatment 2x/Week Duration of Treatment 3 months Plan of Care Start Date 03/06/18 Plan of Care End Date 06/06/18 Therapeutic Interventions Therapeutic Interventions Aquatic Therapy Balance Training Gait Training Manual Therapy Self-Care/Home Management Soft Tissue Mobilization Therapeutic Activities Therapeutic Exercises Next Visit Focus/Plan Next Note Type Treatment Note Next Visit Plan Continue PT to improve strength, mobility, balance, ROM
--- NOTE | 2018-05-25 16:42 | PT.OTN ---
Current Diagnoses Hemiplegia, unspecified affecting right dominant side (05/25/18) Muscle weakness (generalized) (05/25/18) Other muscle spasm (05/25/18) Difficulty in walking, not elsewhere classified (05/25/18) Other lack of coordination (05/25/18) Unspecified lack of coordination (05/25/18) Physical Therapy Treatment Note PT-OP-A Visit Information Start: 01/25/18 14:39 Freq: Status: Active Protocol: Document 05/25/18 16:00 DCW (Rec: 05/25/18 16:42 DCW [id number]) Out-Patient Physical Therapy Visit Information Visit Information Visit Type Treatment Note Visit Start Time 16:00 Visit Stop Time 16:45 Total Visit Minutes 45 Visit Number 180 Number of CARRIAGE SETTER Visits 0 Evaluation Information Evaluation Date 02/20/16 PT-OP-B Current Condition Start: 03/06/18 17:37 Freq: Status: Active Protocol: Document 03/06/18 15:15 DCW (Rec: 03/06/18 18:01 DCW [id number]) Current Condition History of Current Condition History of Current Condition Please see patient's chart is therapy source for full history and initial evaluation Treatment Goals Patient/Caregiver Goals Pt states he wants to get back to walking more. PT-OP-C Subjective Start: 01/25/18 14:39 Freq: Status: Active Protocol: Document 05/25/18 16:00 DCW (Rec: 05/25/18 16:42 DCW [id number]) OP-PT Subjective Patient Comments Patient Comments Pt reports he is doing well today, happy about today's nice weather PT-OP-G Mobility & Gait Start: 03/06/18 17:37 Freq: Status: Active Protocol: Document 03/06/18 15:15 DCW (Rec: 03/06/18 18:01 DCW [id number]) OP Mobility Evaluation Transfers Sit to Stand Sit->Stand from wheelchair in parallel bars Mod Ax1 OP Gait Assessment Comments Gait Comments Pt ambulates 3' in // bars Mod Ax1 with increased gastroc tone/toe walking, decreased ability to flex knee, decreased foot clearance and difficulty advancing right foot. PT-OP-H Neuro Start: 03/06/18 17:37 Freq: Status: Active Protocol: Document 03/06/18 15:15 DCW (Rec: 03/06/18 18:01 DCW [id number]) Muscle Tone Tone Assessment Right Lower Extremity Flexor Tone Description Severe Hypertonicity Extensor Tone Description Severe Hypertonicity Left Lower Extremity Flexor Tone Description Severe Hypertonicity Extensor Tone Description Severe Hypertonicity PT-OP-K Range of Motion Start: 03/06/18 17:37 Freq: Status: Active Protocol: Document 03/06/18 15:15 DCW (Rec: 03/06/18 18:01 DCW [id number]) Hip Goniometric Range of Motion Hip Measured in Degrees Right Passive Testing Position Supine Flexion w/Knee Flexed 82 Abduction 20 Left Passive Testing Position Supine Flexion w/Knee Flexed 102 Abduction 22 PT-OP-M Strength Start: 03/06/18 17:37 Freq: Status: Active Protocol: Document 03/06/18 15:15 DCW (Rec: 03/06/18 18:01 DCW [id number]) Elbow/Forearm Strength Elbow and Forearm Manual Muscle Testing Right Flexion (C6) 4- Good- Extension (C7) 3- Fair- Left Flexion (C6) 4+ Good+ Extension (C7) 5 Normal PT-OP-Q Treatments Start: 03/06/18 17:37 Freq: Status: Active Protocol: Document 05/25/18 16:00 DCW (Rec: 05/25/18 16:42 DCW [id number]) Cardio Equipment Recumbent Stepper (Sci-Fit) Duration (Minutes) 7 Resistance 3 Seat Position Removed Therapeutic Exercises Sitting Exercises 1 Sitting Exercise Name Shoulder flexion Pulleys Side bilateral Equipment Used Eda Therapeutic Activity Therapeutic Activity 1 Name Sit<->Stand at // bars Neuro Re-Education Treatment Coordination Activities 1 Details [facility]one activities - Kicking target cones Equipment Multi-colored cones PT-OP-S Aquatic Treatment Start: 01/25/18 14:39 Freq: Status: Active Protocol: Document 05/17/18 16:08 SAK (Rec: 05/17/18 16:17 SAK [id number]) Aquatics Treatment Pool Entry/Exit Pool Entry/Exit Method Lift Assistance Maximal Assist Comments Max assist 2 Water Walking Sideways Water Level Chest Level Walking Equipment neck float, [place] float, parallel bars Level of Assistance Minimal Assistance Forwards Water Level Chest Level Walking Equipment Neck Float, PT assist, aquatic parallel bars Level of Assistance Moderate Assistance Maximal Assist Verbal Cues Comments assist for balance and weight- shift, advances LE's very short distance Lower Extremity Stretches Adductor stretch Details manual, supine Hamstring stretch Details manual, standing in parallel bars Spinal Exercises 2 Details partial prone to supine recvovery Reps/Duration 2x Comments min assist x 1, mod assist x 1 1 Details seated crunch Body Position Sitting Water Level Neck Level Equipment neck float, [place] float Reps/Duration 2x10 Comments seated on pool platform, PT holding LE's down Balance 2 Details vertical balance Body Position Standing Water Level [place] Comments deep and shallow water 1 Details partial supine to stand Water Level Neck Level Equipment [place] float, neck float Comments mod assist [place] Activities Other Activities partial pull-ups with mod assist Swim Strokes Backstroke Equipment Ankle Floats Neck Float Other Equipment Used [place] float Laps/Duration 5' Comments max assist for LE's, primarily uses left UE PT-OP-T Assessment and Plan Start: 01/25/18 14:39 Freq: Status: Active Protocol: Document 05/25/18 16:00 DCW (Rec: 05/25/18 16:42 DCW [id number]) Physical Therapy Assessment Impairments Impairments Activity Tolerance Balance Coordination Functional Activities Functional Mobility Gait ROM Soft Tissue Mobility Strength Tone Goals Four Impairment Transfers Custodial Goal (LTG) Pt to perform sit->stand transfer in // bars CGA LTG Duration 06/06/18 Three Impairment Strength Biostatistics Director Goal (LTG) Right elbow extension MMT to 3 +/5 LTG Duration 06/06/18 Two Impairment Hip ROM Short Term Goal (STG) Bilateral hip flexion to 110? STG Duration 04/05/18 Custodial Goal (LTG) Bilateral Abduction to 30? LTG Duration 06/06/18 One Impairment Gait Biostatistics Director Goal (LTG) Pt to ambulate 50' Min Ax1 /c FWW LTG Duration 06/06/18 Assessment Summary Assessment Pt struggled today with his sit->stand, requiring Max Ax1 to fully stand at // bars twice, unable to get out of his chair any more times than that. Physical Therapy Plan Frequency and Duration Frequency of Treatment 2x/Week Duration of Treatment 3 months Plan of Care Start Date 03/06/18 Plan of Care End Date 06/06/18 Therapeutic Interventions Therapeutic Interventions Aquatic Therapy Balance Training Gait Training Manual Therapy Self-Care/Home Management Soft Tissue Mobilization Therapeutic Activities Therapeutic Exercises Next Visit Focus/Plan Next Note Type Treatment Note Next Visit Plan Continue PT to improve strength, mobility, balance, ROM
--- NOTE | 2018-06-01 15:47 | PT.OTN ---
Current Diagnoses Hemiplegia, unspecified affecting right dominant side (06/01/18) Muscle weakness (generalized) (06/01/18) Other muscle spasm (06/01/18) Cramp and spasm (06/01/18) Difficulty in walking, not elsewhere classified (06/01/18) Other lack of coordination (06/01/18) Unspecified lack of coordination (06/01/18) Personal history of other specified conditions (06/01/18) Physical Therapy Treatment Note PT-OP-A Visit Information Start: 01/25/18 14:39 Freq: Status: Active Protocol: Document 06/01/18 15:15 DCW (Rec: 06/01/18 15:47 DCW [id number]) Out-Patient Physical Therapy Visit Information Visit Information Visit Type Treatment Note Visit Start Time 16:00 Visit Stop Time 16:45 Total Visit Minutes 45 Visit Number 180 Number of CATH LABORATORY TECHNICIAN Visits 0 Evaluation Information Evaluation Date 02/20/16 PT-OP-B Current Condition Start: 03/06/18 17:37 Freq: Status: Active Protocol: Document 03/06/18 15:15 DCW (Rec: 03/06/18 18:01 DCW [id number]) Current Condition History of Current Condition History of Current Condition Please see patient's chart is therapy source for full history and initial evaluation Treatment Goals Patient/Caregiver Goals Pt states he wants to get back to walking more. PT-OP-C Subjective Start: 01/25/18 14:39 Freq: Status: Active Protocol: Document 06/01/18 15:15 DCW (Rec: 06/01/18 15:47 DCW [id number]) OP-PT Subjective Patient Comments Patient Comments Pt notes he had an appointment with his PCP yesterday, and asked if there was anything else he can try to do to loosen up his shoulder. He and his physician discussed the possibility on Botox. PT-OP-G Mobility & Gait Start: 03/06/18 17:37 Freq: Status: Active Protocol: Document 03/06/18 15:15 DCW (Rec: 03/06/18 18:01 DCW [id number]) OP Mobility Evaluation Transfers Sit to Stand Sit->Stand from wheelchair in parallel bars Mod Ax1 OP Gait Assessment Comments Gait Comments Pt ambulates 3' in // bars Mod Ax1 with increased gastroc tone/toe walking, decreased ability to flex knee, decreased foot clearance and difficulty advancing right foot. PT-OP-H Neuro Start: 03/06/18 17:37 Freq: Status: Active Protocol: Document 03/06/18 15:15 DCW (Rec: 03/06/18 18:01 DCW [id number]) Muscle Tone Tone Assessment Right Lower Extremity Flexor Tone Description Severe Hypertonicity Extensor Tone Description Severe Hypertonicity Left Lower Extremity Flexor Tone Description Severe Hypertonicity Extensor Tone Description Severe Hypertonicity PT-OP-K Range of Motion Start: 03/06/18 17:37 Freq: Status: Active Protocol: Document 03/06/18 15:15 DCW (Rec: 03/06/18 18:01 DCW [id number]) Hip Goniometric Range of Motion Hip Measured in Degrees Right Passive Testing Position Supine Flexion w/Knee Flexed 82 Abduction 20 Left Passive Testing Position Supine Flexion w/Knee Flexed 102 Abduction 22 PT-OP-M Strength Start: 03/06/18 17:37 Freq: Status: Active Protocol: Document 03/06/18 15:15 DCW (Rec: 03/06/18 18:01 DCW [id number]) Elbow/Forearm Strength Elbow and Forearm Manual Muscle Testing Right Flexion (C6) 4- Good- Extension (C7) 3- Fair- Left Flexion (C6) 4+ Good+ Extension (C7) 5 Normal PT-OP-Q Treatments Start: 03/06/18 17:37 Freq: Status: Active Protocol: Document 06/01/18 15:15 DCW (Rec: 06/01/18 15:47 DCW [id number]) Cardio Equipment Recumbent Stepper (Sci-Fit) Duration (Minutes) 7 Resistance 3 Seat Position Removed Therapeutic Exercises Sitting Exercises 1 Sitting Exercise Name Shoulder flexion Pulleys Side bilateral Equipment Used Eda Therapeutic Activity Therapeutic Activity 1 Name Sit<->Stand at // bars Neuro Re-Education Treatment Coordination Activities 1 Details [facility] activities - Kicking target cones Equipment Multi-colored cones PT-OP-S Aquatic Treatment Start: 01/25/18 14:39 Freq: Status: Active Protocol: Document 05/17/18 16:08 SAK (Rec: 05/17/18 16:17 SAK [id number]) Aquatics Treatment Pool Entry/Exit Pool Entry/Exit Method Lift Assistance Maximal Assist Comments Max assist 2 Water Walking Sideways Water Level Chest Level Walking Equipment neck float, [place] float, parallel bars Level of Assistance Minimal Assistance Forwards Water Level Chest Level Walking Equipment Neck Float, PT assist, aquatic parallel bars Level of Assistance Moderate Assistance Maximal Assist Verbal Cues Comments assist for balance and weight- shift, advances LE's very short distance Lower Extremity Stretches Adductor stretch Details manual, supine Hamstring stretch Details manual, standing in parallel bars Spinal Exercises 2 Details partial prone to supine recvovery Reps/Duration 2x Comments min assist x 1, mod assist x 1 1 Details seated crunch Body Position Sitting Water Level Neck Level Equipment neck float, [place] float Reps/Duration 2x10 Comments seated on pool platform, PT holding LE's down Balance 2 Details vertical balance Body Position Standing Water Level [place] Comments deep and shallow water 1 Details partial supine to stand Water Level Neck Level Equipment [place] float, neck float Comments mod assist [place] Activities Other Activities partial pull-ups with mod assist Swim Strokes Backstroke Equipment Ankle Floats Neck Float Other Equipment Used [place] float Laps/Duration 5' Comments max assist for LE's, primarily uses left UE PT-OP-T Assessment and Plan Start: 01/25/18 14:39 Freq: Status: Active Protocol: Document 06/01/18 15:15 DCW (Rec: 06/01/18 15:47 DCW [id number]) Physical Therapy Assessment Impairments Impairments Activity Tolerance Balance Coordination Functional Activities Functional Mobility Gait ROM Soft Tissue Mobility Strength Tone Goals Four Impairment Transfers Temple Marker Goal (LTG) Pt to perform sit->stand transfer in // bars CGA LTG Duration 06/06/18 Three Impairment Strength [facility] Goal (LTG) Right elbow extension MMT to 3 +/5 LTG Duration 06/06/18 Two Impairment Hip ROM Short Term Goal (STG) Bilateral hip flexion to 110? STG Duration 04/05/18 [facility] Goal (LTG) Bilateral Abduction to 30? LTG Duration 06/06/18 One Impairment Gait Temple Marker Goal (LTG) Pt to ambulate 50' Min Ax1 /c FWW LTG Duration 06/06/18 Assessment Summary Assessment Pt did much better today sit<- >stand, Min Ax1, however he was unable to fully extend his knees and stand straight. Physical Therapy Plan Frequency and Duration Frequency of Treatment 2x/Week Duration of Treatment 3 months Plan of Care Start Date 03/06/18 Plan of Care End Date 06/06/18 Therapeutic Interventions Therapeutic Interventions Aquatic Therapy Balance Training Gait Training Manual Therapy Self-Care/Home Management Soft Tissue Mobilization Therapeutic Activities Therapeutic Exercises Next Visit Focus/Plan Next Note Type Progress Note Next Visit Plan Reassessment
--- NOTE | 2018-06-12 16:49 | PT.OTN ---
Current Diagnoses Hemiplegia, unspecified affecting right dominant side (06/12/18) Muscle weakness (generalized) (06/12/18) Other muscle spasm (06/12/18) Cramp and spasm (06/12/18) Difficulty in walking, not elsewhere classified (06/12/18) Other lack of coordination (06/12/18) Unspecified lack of coordination (06/12/18) Personal history of other specified conditions (06/12/18) Physical Therapy Treatment Note PT-OP-A Visit Information Start: 01/25/18 14:39 Freq: Status: Active Protocol: Document 06/12/18 16:40 SAK (Rec: 06/12/18 16:47 SAK [id number]) Out-Patient Physical Therapy Visit Information Visit Information Visit Type Treatment Note Visit Start Time 11:00 Visit Stop Time 11:45 Total Visit Minutes 50 Visit Number 181 Number of BLEACH PACKER Visits 0 Evaluation Information Evaluation Date 02/20/16 PT-OP-B Current Condition Start: 03/06/18 17:37 Freq: Status: Active Protocol: Document 03/06/18 15:15 DCW (Rec: 03/06/18 18:01 DCW [id number]) Current Condition History of Current Condition History of Current Condition Please see patient's chart is therapy source for full history and initial evaluation Treatment Goals Patient/Caregiver Goals Pt states he wants to get back to walking more. PT-OP-C Subjective Start: 01/25/18 14:39 Freq: Status: Active Protocol: Document 06/12/18 16:40 SAK (Rec: 06/12/18 16:47 SAK [id number]) OP-PT Subjective Patient Comments Patient Comments No new c/o, glad to be back in the water for aquatic therapy . PT-OP-G Mobility & Gait Start: 03/06/18 17:37 Freq: Status: Active Protocol: Document 03/06/18 15:15 DCW (Rec: 03/06/18 18:01 DCW [id number]) OP Mobility Evaluation Transfers Sit to Stand Sit->Stand from wheelchair in parallel bars Mod Ax1 OP Gait Assessment Comments Gait Comments Pt ambulates 3' in // bars Mod Ax1 with increased gastroc tone/toe walking, decreased ability to flex knee, decreased foot clearance and difficulty advancing right foot. PT-OP-H Neuro Start: 03/06/18 17:37 Freq: Status: Active Protocol: Document 03/06/18 15:15 DCW (Rec: 03/06/18 18:01 DCW [id number]) Muscle Tone Tone Assessment Right Lower Extremity Flexor Tone Description Severe Hypertonicity Extensor Tone Description Severe Hypertonicity Left Lower Extremity Flexor Tone Description Severe Hypertonicity Extensor Tone Description Severe Hypertonicity PT-OP-K Range of Motion Start: 03/06/18 17:37 Freq: Status: Active Protocol: Document 03/06/18 15:15 DCW (Rec: 03/06/18 18:01 DCW [id number]) Hip Goniometric Range of Motion Hip Measured in Degrees Right Passive Testing Position Supine Flexion w/Knee Flexed 82 Abduction 20 Left Passive Testing Position Supine Flexion w/Knee Flexed 102 Abduction 22 PT-OP-M Strength Start: 03/06/18 17:37 Freq: Status: Active Protocol: Document 03/06/18 15:15 DCW (Rec: 03/06/18 18:01 DCW [id number]) Elbow/Forearm Strength Elbow and Forearm Manual Muscle Testing Right Flexion (C6) 4- Good- Extension (C7) 3- Fair- Left Flexion (C6) 4+ Good+ Extension (C7) 5 Normal PT-OP-Q Treatments Start: 03/06/18 17:37 Freq: Status: Active Protocol: Document 06/01/18 15:15 DCW (Rec: 06/01/18 15:47 DCW [id number]) Cardio Equipment Recumbent Stepper (Sci-Fit) Duration (Minutes) 7 Resistance 3 Seat Position Removed Therapeutic Exercises Sitting Exercises 1 Sitting Exercise Name Shoulder flexion Pulleys Side bilateral Equipment Used Eda Therapeutic Activity Therapeutic Activity 1 Name Sit<->Stand at // bars Neuro Re-Education Treatment Coordination Activities 1 Details [facility]one activities - Kicking target cones Equipment Multi-colored cones PT-OP-S Aquatic Treatment Start: 01/25/18 14:39 Freq: Status: Active Protocol: Document 06/12/18 16:40 SAK (Rec: 06/12/18 16:49 SAK [id number]) Aquatics Treatment Pool Entry/Exit Pool Entry/Exit Method Lift Assistance Maximal Assist Comments Max assist 2 Water Walking Sideways Water Level Chest Level Walking Equipment neck float, [place] float, parallel bars Level of Assistance Minimal Assistance Forwards Water Level Chest Level Walking Equipment Neck Float, PT assist, aquatic parallel bars Level of Assistance Moderate Assistance Maximal Assist Verbal Cues Comments assist for balance and weight- shift, advances LE's very short distance Lower Extremity Stretches Adductor stretch Details manual, supine Hamstring stretch Details manual, standing in parallel bars Spinal Exercises 2 Details partial prone to supine recvovery Reps/Duration 2x Comments min assist x 1, mod assist x 1 1 Details seated crunch Body Position Sitting Water Level Neck Level Equipment neck float, [place] float Reps/Duration 2x10 Comments seated on pool platform, PT holding LE's down Balance 2 Details vertical balance Body Position Standing Water Level [place] Comments deep and shallow water 1 Details partial supine to stand Water Level Neck Level Equipment [place] float, neck float Comments mod assist [place] Activities Other Activities partial pull-ups with mod assist Swim Strokes Backstroke Equipment Ankle Floats Neck Float Other Equipment Used [place] float Laps/Duration 5' Comments max assist for LE's, primarily uses left UE PT-OP-T Assessment and Plan Start: 01/25/18 14:39 Freq: Status: Active Protocol: Document 06/12/18 16:40 [facility] (Rec: 06/12/18 16:47 [facility] [id number]) Physical Therapy Assessment Impairments Impairments Activity Tolerance Balance Coordination Functional Activities Functional Mobility Gait ROM Soft Tissue Mobility Strength Tone Goals Four Impairment Transfers Orbitread Operator Goal (LTG) Pt to perform sit->stand transfer in // bars CGA LTG Duration 09/11/18 Three Impairment Strength Orbitread Operator Goal (LTG) Right elbow extension MMT to 3 +/5 LTG Duration 09/11/18 Two Impairment Hip ROM Short Term Goal (STG) Bilateral hip flexion to 110? [facility] Goal (LTG) Bilateral Abduction to 30? LTG Duration 09/11/18 One Impairment Gait Orbitread Operator Goal (LTG) Pt to ambulate 50' Min Ax1 /c FWW LTG Duration 09/11/18 Assessment Summary Assessment Jonnie continues to be limited in ROM, strength, functional mobility skills, and gait. His mobility status is variable, though overall seems to be declining. He recently discussed Botox injections for shoulder mobility. The high extensor tone in his LE's is highly limiting for functional use, may benefit from medical intervention for LE's as well. Physical Therapy Plan Frequency and Duration Frequency of Treatment 2x/Week Duration of Treatment 3 months Plan of Care Start Date 06/12/18 Plan of Care End Date 09/11/18 Therapeutic Interventions Therapeutic Interventions Aquatic Therapy Balance Training Gait Training Manual Therapy Self-Care/Home Management Soft Tissue Mobilization Therapeutic Activities Therapeutic Exercises Next Visit Focus/Plan Next Note Type Treatment Note Next Visit Plan Continue combination of land and aquatic PT for strengthening, functional mobility skills, balance, ROM.
--- NOTE | 2018-06-15 16:05 | PT.OTN ---
Current Diagnoses Hemiplegia, unspecified affecting right dominant side (06/15/18) Muscle weakness (generalized) (06/15/18) Other muscle spasm (06/15/18) Cramp and spasm (06/15/18) Difficulty in walking, not elsewhere classified (06/15/18) Other lack of coordination (06/15/18) Unspecified lack of coordination (06/15/18) Personal history of other specified conditions (06/15/18) Physical Therapy Treatment Note PT-OP-A Visit Information Start: 01/25/18 14:39 Freq: Status: Active Protocol: Document 06/15/18 15:15 DCW (Rec: 06/15/18 16:05 DCW [id number]) Out-Patient Physical Therapy Visit Information Visit Information Visit Type Treatment Note Visit Start Time 15:15 Visit Stop Time 16:00 Total Visit Minutes 45 Visit Number [id number] Number of GLOBAL HUMAN RESOURCES DIRECTOR Visits 0 Evaluation Information Evaluation Date 02/20/16 PT-OP-B Current Condition Start: 03/06/18 17:37 Freq: Status: Active Protocol: Document 03/06/18 15:15 DCW (Rec: 03/06/18 18:01 DCW [id number]) Current Condition History of Current Condition History of Current Condition Please see patient's chart is therapy source for full history and initial evaluation Treatment Goals Patient/Caregiver Goals Pt states he wants to get back to walking more. PT-OP-C Subjective Start: 01/25/18 14:39 Freq: Status: Active Protocol: Document 06/15/18 15:15 DCW (Rec: 06/15/18 16:05 DCW [id number]) OP-PT Subjective Patient Comments Patient Comments Pt reports feeling pretty good today. PT-OP-G Mobility & Gait Start: 03/06/18 17:37 Freq: Status: Active Protocol: Document 03/06/18 15:15 DCW (Rec: 03/06/18 18:01 DCW [id number]) OP Mobility Evaluation Transfers Sit to Stand Sit->Stand from wheelchair in parallel bars Mod Ax1 OP Gait Assessment Comments Gait Comments Pt ambulates 3' in // bars Mod Ax1 with increased gastroc tone/toe walking, decreased ability to flex knee, decreased foot clearance and difficulty advancing right foot. PT-OP-H Neuro Start: 03/06/18 17:37 Freq: Status: Active Protocol: Document 03/06/18 15:15 DCW (Rec: 03/06/18 18:01 DCW [id number]) Muscle Tone Tone Assessment Right Lower Extremity Flexor Tone Description Severe Hypertonicity Extensor Tone Description Severe Hypertonicity Left Lower Extremity Flexor Tone Description Severe Hypertonicity Extensor Tone Description Severe Hypertonicity PT-OP-K Range of Motion Start: 03/06/18 17:37 Freq: Status: Active Protocol: Document 03/06/18 15:15 DCW (Rec: 03/06/18 18:01 DCW [id number]) Hip Goniometric Range of Motion Hip Measured in Degrees Right Passive Testing Position Supine Flexion w/Knee Flexed 82 Abduction 20 Left Passive Testing Position Supine Flexion w/Knee Flexed 102 Abduction 22 PT-OP-M Strength Start: 03/06/18 17:37 Freq: Status: Active Protocol: Document 03/06/18 15:15 DCW (Rec: 03/06/18 18:01 DCW [id number]) Elbow/Forearm Strength Elbow and Forearm Manual Muscle Testing Right Flexion (C6) 4- Good- Extension (C7) 3- Fair- Left Flexion (C6) 4+ Good+ Extension (C7) 5 Normal PT-OP-Q Treatments Start: 03/06/18 17:37 Freq: Status: Active Protocol: Document 06/15/18 15:15 DCW (Rec: 06/15/18 16:05 DCW [id number]) Cardio Equipment Recumbent Stepper (Sci-Fit) Duration (Minutes) 7 Resistance 3 Seat Position Removed Therapeutic Exercises Sitting Exercises 2 Sitting Exercise Name LAQ Side bilateral Resistance 4# Equipment Used Ankle weights 1 Sitting Exercise Name Shoulder flexion Pulleys Side bilateral Equipment Used Eda Therapeutic Activity Therapeutic Activity 1 Name Sit<->Stand at // bars PT-OP-S Aquatic Treatment Start: 01/25/18 14:39 Freq: Status: Active Protocol: Document 06/12/18 16:40 SAK (Rec: 06/12/18 16:49 SAK [id number]) Aquatics Treatment Pool Entry/Exit Pool Entry/Exit Method Lift Assistance Maximal Assist Comments Max assist 2 Water Walking Sideways Water Level Chest Level Walking Equipment neck float, knik float, parallel bars Level of Assistance Minimal Assistance Forwards Water Level Chest Level Walking Equipment Neck Float, PT assist, aquatic parallel bars Level of Assistance Moderate Assistance Maximal Assist Verbal Cues Comments assist for balance and weight- shift, advances LE's very short distance Lower Extremity Stretches Adductor stretch Details manual, supine Hamstring stretch Details manual, standing in parallel bars Spinal Exercises 2 Details partial prone to supine recvovery Reps/Duration 2x Comments min assist x 1, mod assist x 1 1 Details seated crunch Body Position Sitting Water Level Neck Level Equipment neck float, kn[place] float Reps/Duration 2x10 Comments seated on pool platform, PT holding LE's down Balance 2 Details vertical balance Body Position Standing Water Level [place] Comments deep and shallow water 1 Details partial supine to stand Water Level Neck Level Equipment knik float, neck float Comments mod assist [place] Activities Other Activities partial pull-ups with mod assist Swim Strokes Backstroke Equipment Ankle Floats Neck Float Other Equipment Used knik float Laps/Duration 5' Comments max assist for LE's, primarily uses left UE PT-OP-T Assessment and Plan Start: 01/25/18 14:39 Freq: Status: Active Protocol: Document 06/15/18 15:15 DCW (Rec: 06/15/18 16:05 DCW [id number]) Physical Therapy Assessment Impairments Impairments Activity Tolerance Balance Coordination Functional Activities Functional Mobility Gait ROM Soft Tissue Mobility Strength Tone Goals Four Impairment Transfers Financial Health Counselor Goal (LTG) Pt to perform sit->stand transfer in // bars CGA LTG Duration 09/11/18 Three Impairment Strength Snf Goal (LTG) Right elbow extension MMT to 3 +/5 LTG Duration 09/11/18 Two Impairment Hip ROM Short Term Goal (STG) Bilateral hip flexion to 110? Snf Goal (LTG) Bilateral Abduction to 30? LTG Duration 09/11/18 One Impairment Gait Snf Goal (LTG) Pt to ambulate 50' Min Ax1 /c FWW LTG Duration 09/11/18 Assessment Summary Assessment Pt sit<->stand transfers today were much improved vs the past few visits, able to perform sit->stand x5 /c min Ax1. Physical Therapy Plan Frequency and Duration Frequency of Treatment 2x/Week Duration of Treatment 3 months Plan of Care Start Date 06/12/18 Plan of Care End Date 09/11/18 Therapeutic Interventions Therapeutic Interventions Aquatic Therapy Balance Training Gait Training Manual Therapy Self-Care/Home Management Soft Tissue Mobilization Therapeutic Activities Therapeutic Exercises Next Visit Focus/Plan Next Note Type Treatment Note Next Visit Plan Continue combination of land and aquatic PT for strengthening, functional mobility skills, balance, ROM.
--- NOTE | 2018-06-21 16:47 | PT.OTN ---
Current Diagnoses Hemiplegia, unspecified affecting right dominant side (06/21/18) Muscle weakness (generalized) (06/21/18) Other muscle spasm (06/21/18) Cramp and spasm (06/21/18) Difficulty in walking, not elsewhere classified (06/21/18) Other lack of coordination (06/21/18) Unspecified lack of coordination (06/21/18) Personal history of other specified conditions (06/21/18) Physical Therapy Treatment Note PT-OP-A Visit Information Start: 01/25/18 14:39 Freq: Status: Active Protocol: Document 06/21/18 16:10 DCW (Rec: 06/21/18 16:47 DCW [id number]) Out-Patient Physical Therapy Visit Information Visit Information Visit Type Treatment Note Visit Note Pt arrived 10 minutes late Visit Start Time 16:10 Visit Stop Time 16:50 Total Visit Minutes 40 Visit Number 183 Number of SENIOR SALES CONSULTANT Visits 0 Evaluation Information Evaluation Date 02/20/16 PT-OP-B Current Condition Start: 03/06/18 17:37 Freq: Status: Active Protocol: Document 03/06/18 15:15 DCW (Rec: 03/06/18 18:01 DCW [id number]) Current Condition History of Current Condition History of Current Condition Please see patient's chart is therapy source for full history and initial evaluation Treatment Goals Patient/Caregiver Goals Pt states he wants to get back to walking more. PT-OP-C Subjective Start: 01/25/18 14:39 Freq: Status: Active Protocol: Document 06/21/18 16:10 DCW (Rec: 06/21/18 16:47 DCW [id number]) OP-PT Subjective Patient Comments Patient Comments Pt has no new complaints. PT-OP-G Mobility & Gait Start: 03/06/18 17:37 Freq: Status: Active Protocol: Document 03/06/18 15:15 DCW (Rec: 03/06/18 18:01 DCW [id number]) OP Mobility Evaluation Transfers Sit to Stand Sit->Stand from wheelchair in parallel bars Mod Ax1 OP Gait Assessment Comments Gait Comments Pt ambulates 3' in // bars Mod Ax1 with increased gastroc tone/toe walking, decreased ability to flex knee, decreased foot clearance and difficulty advancing right foot. PT-OP-H Neuro Start: 03/06/18 17:37 Freq: Status: Active Protocol: Document 03/06/18 15:15 DCW (Rec: 03/06/18 18:01 DCW [id number]) Muscle Tone Tone Assessment Right Lower Extremity Flexor Tone Description Severe Hypertonicity Extensor Tone Description Severe Hypertonicity Left Lower Extremity Flexor Tone Description Severe Hypertonicity Extensor Tone Description Severe Hypertonicity PT-OP-K Range of Motion Start: 03/06/18 17:37 Freq: Status: Active Protocol: Document 03/06/18 15:15 DCW (Rec: 03/06/18 18:01 DCW [id number]) Hip Goniometric Range of Motion Hip Measured in Degrees Right Passive Testing Position Supine Flexion w/Knee Flexed 82 Abduction 20 Left Passive Testing Position Supine Flexion w/Knee Flexed 102 Abduction 22 PT-OP-M Strength Start: 03/06/18 17:37 Freq: Status: Active Protocol: Document 03/06/18 15:15 DCW (Rec: 03/06/18 18:01 DCW [id number]) Elbow/Forearm Strength Elbow and Forearm Manual Muscle Testing Right Flexion (C6) 4- Good- Extension (C7) 3- Fair- Left Flexion (C6) 4+ Good+ Extension (C7) 5 Normal PT-OP-Q Treatments Start: 03/06/18 17:37 Freq: Status: Active Protocol: Document 06/21/18 16:10 DCW (Rec: 06/21/18 16:47 DCW [id number]) Cardio Equipment Recumbent Stepper (Sci-Fit) Duration (Minutes) 7 Resistance 3 Seat Position Removed Therapeutic Exercises Sitting Exercises 2 Sitting Exercise Name LAQ Side bilateral Resistance 4# Equipment Used Ankle weights 1 Sitting Exercise Name Shoulder flexion Pulleys Side bilateral Equipment Used Eda Therapeutic Activity Therapeutic Activity 1 Name Sit<->Stand at // bars Neuro Re-Education Treatment Coordination Activities 1 Details Cone activities - Kicking target cones Equipment Multi-colored cones PT-OP-S Aquatic Treatment Start: 01/25/18 14:39 Freq: Status: Active Protocol: Document 06/12/18 16:40 SAK (Rec: 06/12/18 16:49 SAK [id number]) Aquatics Treatment Pool Entry/Exit Pool Entry/Exit Method Lift Assistance Maximal Assist Comments Max assist 2 Water Walking Sideways Water Level Chest Level Walking Equipment neck float, [place] float, parallel bars Level of Assistance Minimal Assistance Forwards Water Level Chest Level Walking Equipment Neck Float, PT assist, aquatic parallel bars Level of Assistance Moderate Assistance Maximal Assist Verbal Cues Comments assist for balance and weight- shift, advances LE's very short distance Lower Extremity Stretches Adductor stretch Details manual, supine Hamstring stretch Details manual, standing in parallel bars Spinal Exercises 2 Details partial prone to supine recvovery Reps/Duration 2x Comments min assist x 1, mod assist x 1 1 Details seated crunch Body Position Sitting Water Level Neck Level Equipment neck float, [place] float Reps/Duration 2x10 Comments seated on pool platform, PT holding LE's down Balance 2 Details vertical balance Body Position Standing Water Level [place] Comments deep and shallow water 1 Details partial supine to stand Water Level Neck Level Equipment [place] float, neck float Comments mod assist [place] Activities Other Activities partial pull-ups with mod assist Swim Strokes Backstroke Equipment Ankle Floats Neck Float Other Equipment Used [place] float Laps/Duration 5' Comments max assist for LE's, primarily uses left UE PT-OP-T Assessment and Plan Start: 01/25/18 14:39 Freq: Status: Active Protocol: Document 06/21/18 16:10 DCW (Rec: 06/21/18 16:47 DCW [id number]) Physical Therapy Assessment Impairments Impairments Activity Tolerance Balance Coordination Functional Activities Functional Mobility Gait ROM Soft Tissue Mobility Strength Tone Goals Four Impairment Transfers Halfway Goal (LTG) Pt to perform sit->stand transfer in // bars CGA LTG Duration 09/11/18 Three Impairment Strength Halfway Goal (LTG) Right elbow extension MMT to 3 +/5 LTG Duration 09/11/18 Two Impairment Hip ROM Short Term Goal (STG) Bilateral hip flexion to 110? Slot Floorman Goal (LTG) Bilateral Abduction to 30? LTG Duration 09/11/18 One Impairment Gait Slot Floorman Goal (LTG) Pt to ambulate 50' Min Ax1 /c FWW LTG Duration 09/11/18 Assessment Summary Assessment Pt continued to do well with sit<->stand transfers at the / / bars, however still unable to translate standing back into taking any steps. Physical Therapy Plan Frequency and Duration Frequency of Treatment 2x/Week Duration of Treatment 3 months Plan of Care Start Date 06/12/18 Plan of Care End Date 09/11/18 Therapeutic Interventions Therapeutic Interventions Aquatic Therapy Balance Training Gait Training Manual Therapy Self-Care/Home Management Soft Tissue Mobilization Therapeutic Activities Therapeutic Exercises Next Visit Focus/Plan Next Note Type Treatment Note Next Visit Plan Continue combination of land and aquatic PT for strengthening, functional mobility skills, balance, ROM.
--- NOTE | 2018-06-28 16:47 | PT.OTN ---
Current Diagnoses Hemiplegia, unspecified affecting right dominant side (06/28/18) Muscle weakness (generalized) (06/28/18) Other muscle spasm (06/28/18) Cramp and spasm (06/28/18) Difficulty in walking, not elsewhere classified (06/28/18) Other lack of coordination (06/28/18) Unspecified lack of coordination (06/28/18) Personal history of other specified conditions (06/28/18) Physical Therapy Treatment Note PT-OP-A Visit Information Start: 01/25/18 14:39 Freq: Status: Active Protocol: Document 06/28/18 15:55 DCW (Rec: 06/28/18 16:46 DCW [id number]) Out-Patient Physical Therapy Visit Information Visit Information Visit Type Treatment Note Visit Start Time 15:55 Visit Stop Time 16:45 Total Visit Minutes 50 Visit Number 184 Number of AUTOMOBILE BODY WORKER Visits 0 Evaluation Information Evaluation Date 02/20/16 PT-OP-B Current Condition Start: 03/06/18 17:37 Freq: Status: Active Protocol: Document 03/06/18 15:15 DCW (Rec: 03/06/18 18:01 DCW [id number]) Current Condition History of Current Condition History of Current Condition Please see patient's chart is therapy source for full history and initial evaluation Treatment Goals Patient/Caregiver Goals Pt states he wants to get back to walking more. PT-OP-C Subjective Start: 01/25/18 14:39 Freq: Status: Active Protocol: Document 06/28/18 15:55 DCW (Rec: 06/28/18 16:46 DCW [id number]) OP-PT Subjective Patient Comments Patient Comments Pt notes he is doing well today PT-OP-G Mobility & Gait Start: 03/06/18 17:37 Freq: Status: Active Protocol: Document 03/06/18 15:15 DCW (Rec: 03/06/18 18:01 DCW [id number]) OP Mobility Evaluation Transfers Sit to Stand Sit->Stand from wheelchair in parallel bars Mod Ax1 OP Gait Assessment Comments Gait Comments Pt ambulates 3' in // bars Mod Ax1 with increased gastroc tone/toe walking, decreased ability to flex knee, decreased foot clearance and difficulty advancing right foot. PT-OP-H Neuro Start: 03/06/18 17:37 Freq: Status: Active Protocol: Document 03/06/18 15:15 DCW (Rec: 03/06/18 18:01 DCW [id number]) Muscle Tone Tone Assessment Right Lower Extremity Flexor Tone Description Severe Hypertonicity Extensor Tone Description Severe Hypertonicity Left Lower Extremity Flexor Tone Description Severe Hypertonicity Extensor Tone Description Severe Hypertonicity PT-OP-K Range of Motion Start: 03/06/18 17:37 Freq: Status: Active Protocol: Document 03/06/18 15:15 DCW (Rec: 03/06/18 18:01 DCW [id number]) Hip Goniometric Range of Motion Hip Measured in Degrees Right Passive Testing Position Supine Flexion w/Knee Flexed 82 Abduction 20 Left Passive Testing Position Supine Flexion w/Knee Flexed 102 Abduction 22 PT-OP-M Strength Start: 03/06/18 17:37 Freq: Status: Active Protocol: Document 03/06/18 15:15 DCW (Rec: 03/06/18 18:01 DCW [id number]) Elbow/Forearm Strength Elbow and Forearm Manual Muscle Testing Right Flexion (C6) 4- Good- Extension (C7) 3- Fair- Left Flexion (C6) 4+ Good+ Extension (C7) 5 Normal PT-OP-Q Treatments Start: 03/06/18 17:37 Freq: Status: Active Protocol: Document 06/28/18 15:55 DCW (Rec: 06/28/18 16:46 DCW [id number]) Therapeutic Exercises Supine Exercises Achilles stretch Supine Exercise Name Manual gastroc stretch Hamstring stretch Supine Exercise Name Manual HS stretch Hip Adduction Stretch Supine Exercise Name Manual Adductior stretch Shoulder Flexion Supine Exercise Name Manual Stretch Side bilateral Equipment Used Wand Sitting Exercises 1 Sitting Exercise Name Shoulder flexion Pulleys Side bilateral Equipment Used Eda Therapeutic Activity Therapeutic Activity 2 Name Chair<->Table transfer Comments Max Ax2 1 Name Sit<->Stand at // bars Reps/Minutes x10 Comments Mod Ax1 PT-OP-S Aquatic Treatment Start: 01/25/18 14:39 Freq: Status: Active Protocol: Document 06/12/18 16:40 SAK (Rec: 06/12/18 16:49 SAK [id number]) Aquatics Treatment Pool Entry/Exit Pool Entry/Exit Method Lift Assistance Maximal Assist Comments Max assist 2 Water Walking Sideways Water Level Chest Level Walking Equipment neck float, [place] float, parallel bars Level of Assistance Minimal Assistance Forwards Water Level Chest Level Walking Equipment Neck Float, PT assist, aquatic parallel bars Level of Assistance Moderate Assistance Maximal Assist Verbal Cues Comments assist for balance and weight- shift, advances LE's very short distance Lower Extremity Stretches Adductor stretch Details manual, supine Hamstring stretch Details manual, standing in parallel bars Spinal Exercises 2 Details partial prone to supine recvovery Reps/Duration 2x Comments min assist x 1, mod assist x 1 1 Details seated crunch Body Position Sitting Water Level Neck Level Equipment neck float, [place] float Reps/Duration 2x10 Comments seated on pool platform, PT holding LE's down Balance 2 Details vertical balance Body Position Standing Water Level [place] Comments deep and shallow water 1 Details partial supine to stand Water Level Neck Level Equipment [place] float, neck float Comments mod assist [place] Activities Other Activities partial pull-ups with mod assist Swim Strokes Backstroke Equipment Ankle Floats Neck Float Other Equipment Used [place] float Laps/Duration 5' Comments max assist for LE's, primarily uses left UE PT-OP-T Assessment and Plan Start: 01/25/18 14:39 Freq: Status: Active Protocol: Document 06/28/18 15:55 DCW (Rec: 06/28/18 16:46 DCW [id number]) Physical Therapy Assessment Impairments Impairments Activity Tolerance Balance Coordination Functional Activities Functional Mobility Gait ROM Soft Tissue Mobility Strength Tone Goals Four Impairment Transfers Milk Deliverer Goal (LTG) Pt to perform sit->stand transfer in // bars CGA LTG Duration 09/11/18 Three Impairment Strength Milk Deliverer Goal (LTG) Right elbow extension MMT to 3 +/5 LTG Duration 09/11/18 Two Impairment Hip ROM Short Term Goal (STG) Bilateral hip flexion to 110? Milk Deliverer Goal (LTG) Bilateral Abduction to 30? LTG Duration 09/11/18 One Impairment Gait Milk Deliverer Goal (LTG) Pt to ambulate 50' Min Ax1 /c FWW LTG Duration 09/11/18 Assessment Summary Assessment Pt had difficulty transferring back to his chair from the table, requiring one assist for standing and one for moving his feet, ended up lunging to chair skilled nursing through transfer. Physical Therapy Plan Frequency and Duration Frequency of Treatment 2x/Week Duration of Treatment 3 months Plan of Care Start Date 06/12/18 Plan of Care End Date 09/11/18 Therapeutic Interventions Therapeutic Interventions Aquatic Therapy Balance Training Gait Training Manual Therapy Self-Care/Home Management Soft Tissue Mobilization Therapeutic Activities Therapeutic Exercises Next Visit Focus/Plan Next Note Type Treatment Note Next Visit Plan Continue combination of land and aquatic PT for strengthening, functional mobility skills, balance, ROM.
--- NOTE | 2018-06-29 10:14 | PT.OTN ---
Current Diagnoses Hemiplegia, unspecified affecting right dominant side (06/28/18) Muscle weakness (generalized) (06/28/18) Other muscle spasm (06/28/18) Cramp and spasm (06/28/18) Difficulty in walking, not elsewhere classified (06/28/18) Other lack of coordination (06/28/18) Unspecified lack of coordination (06/28/18) Personal history of other specified conditions (06/28/18) Physical Therapy Treatment Note PT-OP-A Visit Information Start: 01/25/18 14:39 Freq: Status: Active Protocol: Document 06/28/18 15:55 DCW (Rec: 06/28/18 16:46 DCW [id number]) Out-Patient Physical Therapy Visit Information Visit Information Visit Type Treatment Note Visit Start Time 15:55 Visit Stop Time 16:45 Total Visit Minutes 50 Visit Number 184 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 PT-OP-C Subjective Start: 01/25/18 14:39 Freq: Status: Active Protocol: Document 06/28/18 15:55 DCW (Rec: 06/28/18 16:46 DCW [id number]) OP-PT Subjective Patient Comments Patient Comments Pt notes he is doing well today PT-OP-G Mobility & Gait Start: 03/06/18 17:37 Freq: Status: Active Protocol: Document 03/06/18 15:15 DCW (Rec: 03/06/18 18:01 DCW [id number]) OP Mobility Evaluation Transfers Sit to Stand Sit->Stand from wheelchair in parallel bars Mod Ax1 OP Gait Assessment Comments Gait Comments Pt ambulates 3' in // bars Mod Ax1 with increased gastroc tone/toe walking, decreased ability to flex knee, decreased foot clearance and difficulty advancing right foot. PT-OP-H Neuro Start: 03/06/18 17:37 Freq: Status: Active Protocol: Document 03/06/18 15:15 DCW (Rec: 03/06/18 18:01 DCW [id number]) Muscle Tone Tone Assessment Right Lower Extremity Flexor Tone Description Severe Hypertonicity Extensor Tone Description Severe Hypertonicity Left Lower Extremity Flexor Tone Description Severe Hypertonicity Extensor Tone Description Severe Hypertonicity PT-OP-K Range of Motion Start: 03/06/18 17:37 Freq: Status: Active Protocol: Document 03/06/18 15:15 DCW (Rec: 03/06/18 18:01 DCW [id number]) Hip Goniometric Range of Motion Hip Measured in Degrees Right Passive Testing Position Supine Flexion w/Knee Flexed 82 Abduction 20 Left Passive Testing Position Supine Flexion w/Knee Flexed 102 Abduction 22 PT-OP-M Strength Start: 03/06/18 17:37 Freq: Status: Active Protocol: Document 03/06/18 15:15 DCW (Rec: 03/06/18 18:01 DCW [id number]) Elbow/Forearm Strength Elbow and Forearm Manual Muscle Testing Right Flexion (C6) 4- Good- Extension (C7) 3- Fair- Left Flexion (C6) 4+ Good+ Extension (C7) 5 Normal PT-OP-Q Treatments Start: 03/06/18 17:37 Freq: Status: Active Protocol: Document 06/28/18 15:55 DCW (Rec: 06/28/18 16:46 DCW [id number]) Therapeutic Exercises Supine Exercises Achilles stretch Supine Exercise Name Manual gastroc stretch Hamstring stretch Supine Exercise Name Manual HS stretch Hip Adduction Stretch Supine Exercise Name Manual Adductior stretch Shoulder Flexion Supine Exercise Name Manual Stretch Side bilateral Equipment Used Wand Sitting Exercises 1 Sitting Exercise Name Shoulder flexion Pulleys Side bilateral Equipment Used Eda Therapeutic Activity Therapeutic Activity 2 Name Chair<->Table transfer Comments Max Ax2 1 Name Sit<->Stand at // bars Reps/Minutes x10 Comments Mod Ax1 PT-OP-S Aquatic Treatment Start: 01/25/18 14:39 Freq: Status: Active Protocol: Document 06/26/18 11:00 SAK (Rec: 06/29/18 10:14 SAK [id number]) Aquatics Treatment Pool Entry/Exit Pool Entry/Exit Method Lift Assistance Maximal Assist Comments Max assist 2 Water Walking Sideways Water Level Chest Level Walking Equipment neck float, [place] float, parallel bars Level of Assistance Minimal Assistance Forwards Water Level Chest Level Walking Equipment Neck Float, PT assist, aquatic parallel bars Level of Assistance Moderate Assistance Maximal Assist Verbal Cues Comments assist for balance and weight- shift, advances LE's very short distance Lower Extremity Stretches Adductor stretch Details manual, supine Hamstring stretch Details manual, standing in parallel bars Spinal Exercises 2 Details partial prone to supine recvovery Reps/Duration 2x Comments min assist x 1, mod assist x 1 1 Details seated crunch Body Position Sitting Water Level Neck Level Equipment neck float, [place] float Reps/Duration 2x10 Comments seated on pool platform, PT holding LE's down Balance 2 Details vertical balance Body Position Standing Water Level [place] Comments deep and shallow water 1 Details partial supine to stand Water Level Neck Level Equipment [place] float, neck float Comments mod assist [place] Activities Other Activities partial pull-ups with mod assist Swim Strokes Backstroke Equipment Ankle Floats Neck Float Other Equipment Used [place] float Laps/Duration 5' Comments max assist for LE's, primarily uses left UE Other 1 Details sit to stand Equipment pool platform Reps/Duration 3 Comments max assist PT-OP-T Assessment and Plan Start: 01/25/18 14:39 Freq: Status: Active Protocol: Document 06/28/18 15:55 DCW (Rec: 06/28/18 16:46 DCW [id number]) Physical Therapy Assessment Impairments Impairments Activity Tolerance Balance Coordination Functional Activities Functional Mobility Gait ROM Soft Tissue Mobility Strength Tone Goals Four Impairment Transfers 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 Half-Way Goal (LTG) Bilateral Abduction to 30? LTG Duration 09/11/18 One Impairment Gait Half-Way Goal (LTG) Pt to ambulate 50' Min Ax1 /c FWW LTG Duration 09/11/18 Assessment Summary Assessment Pt had difficulty transferring back to his chair from the table, requiring one assist for standing and one for moving his feet, ended up lunging to chair alf through transfer. Physical Therapy Plan Frequency and Duration Frequency of Treatment 2x/Week Duration of Treatment 3 months Plan of Care Start Date 06/12/18 Plan of Care End Date 09/11/18 Therapeutic Interventions Therapeutic Interventions Aquatic Therapy Balance Training Gait Training Manual Therapy Self-Care/Home Management Soft Tissue Mobilization Therapeutic Activities Therapeutic Exercises Next Visit Focus/Plan Next Note Type Treatment Note Next Visit Plan Continue combination of land and aquatic PT for strengthening, functional mobility skills, balance, ROM.
--- NOTE | 2018-07-04 16:52 | PT.OTN ---
Current Diagnoses Hemiplegia, unspecified affecting right dominant side (07/03/18) Muscle weakness (generalized) (07/03/18) Other muscle spasm (07/03/18) Cramp and spasm (07/03/18) Difficulty in walking, not elsewhere classified (07/03/18) Other lack of coordination (07/03/18) Unspecified lack of coordination (07/03/18) Personal history of other specified conditions (07/03/18) Physical Therapy Treatment Note PT-OP-A Visit Information Start: 01/25/18 14:39 Freq: Status: Active Protocol: Document 07/04/18 16:50 SAK (Rec: 07/04/18 16:52 SAK [id number]) Out-Patient Physical Therapy Visit Information Visit Information Visit Type Treatment Note Visit Start Time 15:55 Visit Stop Time 16:45 Total Visit Minutes 50 Visit Number 186 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 PT-OP-C Subjective Start: 01/25/18 14:39 Freq: Status: Active Protocol: Document 07/04/18 16:50 SAK (Rec: 07/04/18 16:52 SAK [id number]) OP-PT Subjective Patient Comments Patient Comments States he wishes he could walk again PT-OP-G Mobility & Gait Start: 03/06/18 17:37 Freq: Status: Active Protocol: Document 03/06/18 15:15 DCW (Rec: 03/06/18 18:01 DCW [id number]) OP Mobility Evaluation Transfers Sit to Stand Sit->Stand from wheelchair in parallel bars Mod Ax1 OP Gait Assessment Comments Gait Comments Pt ambulates 3' in // bars Mod Ax1 with increased gastroc tone/toe walking, decreased ability to flex knee, decreased foot clearance and difficulty advancing right foot. PT-OP-H Neuro Start: 03/06/18 17:37 Freq: Status: Active Protocol: Document 03/06/18 15:15 DCW (Rec: 03/06/18 18:01 DCW [id number]) Muscle Tone Tone Assessment Right Lower Extremity Flexor Tone Description Severe Hypertonicity Extensor Tone Description Severe Hypertonicity Left Lower Extremity Flexor Tone Description Severe Hypertonicity Extensor Tone Description Severe Hypertonicity PT-OP-K Range of Motion Start: 03/06/18 17:37 Freq: Status: Active Protocol: Document 03/06/18 15:15 DCW (Rec: 03/06/18 18:01 DCW [id number]) Hip Goniometric Range of Motion Hip Measured in Degrees Right Passive Testing Position Supine Flexion w/Knee Flexed 82 Abduction 20 Left Passive Testing Position Supine Flexion w/Knee Flexed 102 Abduction 22 PT-OP-M Strength Start: 03/06/18 17:37 Freq: Status: Active Protocol: Document 03/06/18 15:15 DCW (Rec: 03/06/18 18:01 DCW [id number]) Elbow/Forearm Strength Elbow and Forearm Manual Muscle Testing Right Flexion (C6) 4- Good- Extension (C7) 3- Fair- Left Flexion (C6) 4+ Good+ Extension (C7) 5 Normal PT-OP-Q Treatments Start: 03/06/18 17:37 Freq: Status: Active Protocol: Document 06/28/18 15:55 DCW (Rec: 06/28/18 16:46 DCW [id number]) Therapeutic Exercises Supine Exercises Achilles stretch Supine Exercise Name Manual gastroc stretch Hamstring stretch Supine Exercise Name Manual HS stretch Hip Adduction Stretch Supine Exercise Name Manual Adductior stretch Shoulder Flexion Supine Exercise Name Manual Stretch Side bilateral Equipment Used Wand Sitting Exercises 1 Sitting Exercise Name Shoulder flexion Pulleys Side bilateral Equipment Used Eda Therapeutic Activity Therapeutic Activity 2 Name Chair<->Table transfer Comments Max Ax2 1 Name Sit<->Stand at // bars Reps/Minutes x10 Comments Mod Ax1 PT-OP-S Aquatic Treatment Start: 01/25/18 14:39 Freq: Status: Active Protocol: Document 07/04/18 16:50 SAK (Rec: 07/04/18 16:52 SAK [id number]) Aquatics Treatment Pool Entry/Exit Pool Entry/Exit Method Lift Assistance Maximal Assist Comments Max assist 2 Water Walking Sideways Water Level Chest Level Walking Equipment neck float, [place] float, parallel bars Level of Assistance Minimal Assistance Forwards Water Level Chest Level Walking Equipment Neck Float, PT assist, aquatic parallel bars Level of Assistance Moderate Assistance Maximal Assist Verbal Cues Comments assist for balance and weight- shift, advances LE's very short distance Lower Extremity Stretches Adductor stretch Details manual, supine Hamstring stretch Details manual, standing in parallel bars Spinal Exercises 2 Details partial prone to supine recvovery Reps/Duration 2x Comments min assist x 1, mod assist x 1 1 Details seated crunch Body Position Sitting Water Level Neck Level Equipment neck float, [place] float Reps/Duration 2x10 Comments seated on pool platform, PT holding LE's down Balance 2 Details vertical balance Body Position Standing Water Level [place] Comments deep and shallow water 1 Details partial supine to stand Water Level Neck Level Equipment [place] float, neck float Comments mod assist Swim Strokes Backstroke Equipment Ankle Floats Neck Float Other Equipment Used [place] float Laps/Duration 5' Comments max assist for LE's, primarily uses left UE Other 1 Details sit to stand Equipment pool platform Reps/Duration 3 Comments max assist PT-OP-T Assessment and Plan Start: 01/25/18 14:39 Freq: Status: Active Protocol: Document 07/04/18 16:50 [facility] (Rec: 07/04/18 16:52 [facility] [id number]) Physical Therapy Assessment Impairments Impairments Activity Tolerance Balance Coordination Functional Activities Functional Mobility Gait ROM Soft Tissue Mobility Strength Tone Goals Four Impairment Transfers [place] Goal (LTG) Pt to perform sit->stand transfer in // bars CGA LTG Duration 09/11/18 Three Impairment Strength [place] Goal (LTG) Right elbow extension MMT to 3 +/5 LTG Duration 09/11/18 Two Impairment Hip ROM Short Term Goal (STG) Bilateral hip flexion to 110? [place] Goal (LTG) Bilateral Abduction to 30? LTG Duration 09/11/18 One Impairment Gait Halfway Goal (LTG) Pt to ambulate 50' Min Ax1 /c FWW LTG Duration 09/11/18 Assessment Summary Assessment Patient continues to have difficulty with mobility skills requiring increased physical assistance Physical Therapy Plan Frequency and Duration Frequency of Treatment 2x/Week Duration of Treatment 3 months Plan of Care Start Date 06/12/18 Plan of Care End Date 09/11/18 Therapeutic Interventions Therapeutic Interventions Aquatic Therapy Balance Training Gait Training Manual Therapy Self-Care/Home Management Soft Tissue Mobilization Therapeutic Activities Therapeutic Exercises Next Visit Focus/Plan Next Note Type Treatment Note Next Visit Plan Continue combination of land and aquatic PT for strengthening, functional mobility skills, balance, ROM.
--- NOTE | 2018-07-18 08:07 | PT.OTN ---
Current Diagnoses Hemiplegia, unspecified affecting right dominant side (07/17/18) Muscle weakness (generalized) (07/17/18) Other muscle spasm (07/17/18) Cramp and spasm (07/17/18) Difficulty in walking, not elsewhere classified (07/17/18) Other lack of coordination (07/17/18) Unspecified lack of coordination (07/17/18) Personal history of other specified conditions (07/17/18) Physical Therapy Treatment Note PT-OP-A Visit Information Start: 01/25/18 14:39 Freq: Status: Active Protocol: Document 07/17/18 11:00 [facility] (Rec: 07/18/18 08:07 [facility] [id number]) Out-Patient Physical Therapy Visit Information Visit Information Visit Type Treatment Note Visit Start Time 11:00 Visit Stop Time 11:50 Total Visit Minutes 50 Visit Number 187 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 PT-OP-C Subjective Start: 01/25/18 14:39 Freq: Status: Active Protocol: Document 07/17/18 11:00 [facility] (Rec: 07/18/18 08:07 [facility] [id number]) OP-PT Subjective Patient Comments Patient Comments States he is in a bad mood, didn't sleep well. In process of getting a new mattress. States legs feel very tight. PT-OP-G Mobility & Gait Start: 03/06/18 17:37 Freq: Status: Active Protocol: Document 03/06/18 15:15 DCW (Rec: 03/06/18 18:01 DCW [id number]) OP Mobility Evaluation Transfers Sit to Stand Sit->Stand from wheelchair in parallel bars Mod Ax1 OP Gait Assessment Comments Gait Comments Pt ambulates 3' in // bars Mod Ax1 with increased gastroc tone/toe walking, decreased ability to flex knee, decreased foot clearance and difficulty advancing right foot. PT-OP-H Neuro Start: 03/06/18 17:37 Freq: Status: Active Protocol: Document 03/06/18 15:15 DCW (Rec: 03/06/18 18:01 DCW [id number]) Muscle Tone Tone Assessment Right Lower Extremity Flexor Tone Description Severe Hypertonicity Extensor Tone Description Severe Hypertonicity Left Lower Extremity Flexor Tone Description Severe Hypertonicity Extensor Tone Description Severe Hypertonicity PT-OP-K Range of Motion Start: 03/06/18 17:37 Freq: Status: Active Protocol: Document 03/06/18 15:15 DCW (Rec: 03/06/18 18:01 DCW [id number]) Hip Goniometric Range of Motion Hip Measured in Degrees Right Passive Testing Position Supine Flexion w/Knee Flexed 82 Abduction 20 Left Passive Testing Position Supine Flexion w/Knee Flexed 102 Abduction 22 PT-OP-M Strength Start: 03/06/18 17:37 Freq: Status: Active Protocol: Document 03/06/18 15:15 DCW (Rec: 03/06/18 18:01 DCW [id number]) Elbow/Forearm Strength Elbow and Forearm Manual Muscle Testing Right Flexion (C6) 4- Good- Extension (C7) 3- Fair- Left Flexion (C6) 4+ Good+ Extension (C7) 5 Normal PT-OP-Q Treatments Start: 03/06/18 17:37 Freq: Status: Active Protocol: Document 06/28/18 15:55 DCW (Rec: 06/28/18 16:46 DCW [id number]) Therapeutic Exercises Supine Exercises Achilles stretch Supine Exercise Name Manual gastroc stretch Hamstring stretch Supine Exercise Name Manual HS stretch Hip Adduction Stretch Supine Exercise Name Manual Adductior stretch Shoulder Flexion Supine Exercise Name Manual Stretch Side bilateral Equipment Used Wand Sitting Exercises 1 Sitting Exercise Name Shoulder flexion Pulleys Side bilateral Equipment Used Eda Therapeutic Activity Therapeutic Activity 2 Name Chair<->Table transfer Comments Max Ax2 1 Name Sit<->Stand at // bars Reps/Minutes x10 Comments Mod Ax1 PT-OP-S Aquatic Treatment Start: 01/25/18 14:39 Freq: Status: Active Protocol: Document 07/17/18 11:00 SAK (Rec: 07/18/18 08:07 SAK [id number]) Aquatics Treatment Pool Entry/Exit Pool Entry/Exit Method Lift Assistance Maximal Assist Comments Max assist 2 Water Walking Sideways Water Level Chest Level Walking Equipment neck float, [place] float, parallel bars Level of Assistance Minimal Assistance Forwards Water Level Chest Level Walking Equipment Neck Float, PT assist, aquatic parallel bars Level of Assistance Moderate Assistance Maximal Assist Verbal Cues Comments assist for balance and weight- shift, advances LE's very short distance Lower Extremity Stretches Adductor stretch Details manual, supine Hamstring stretch Details manual, standing in parallel bars Spinal Exercises 2 Details partial prone to supine recvovery Reps/Duration 2x Comments min assist x 1, mod assist x 1 1 Details seated crunch Body Position Sitting Water Level Neck Level Equipment neck float, [place] float Reps/Duration 2x10 Comments seated on pool platform, PT holding LE's down Balance 2 Details vertical balance Body Position Standing Water Level [place] Comments deep and shallow water 1 Details partial supine to stand Water Level Neck Level Equipment [place] float, neck float Comments mod assist [place] Activities Other Activities partial pull-ups with mod assist Swim Strokes Backstroke Equipment Ankle Floats Neck Float Other Equipment Used [place] float Laps/Duration 5' Comments max assist for LE's, primarily uses left UE Other 1 Details sit to stand Equipment pool platform Reps/Duration 3 Comments max assist PT-OP-T Assessment and Plan Start: 01/25/18 14:39 Freq: Status: Active Protocol: Document 07/17/18 11:00 [facility] (Rec: 07/18/18 08:07 [facility] [id number]) Physical Therapy Assessment Impairments Impairments Activity Tolerance Balance Coordination Functional Activities Functional Mobility Gait ROM Soft Tissue Mobility Strength Tone Goals Four Impairment Transfers Detention Goal (LTG) Pt to perform sit->stand transfer in // bars CGA LTG Duration 09/11/18 Three Impairment Strength Detention Goal (LTG) Right elbow extension MMT to 3 +/5 LTG Duration 09/11/18 Two Impairment Hip ROM Short Term Goal (STG) Bilateral hip flexion to 110? Carpenter Foreman Goal (LTG) Bilateral Abduction to 30? LTG Duration 09/11/18 One Impairment Gait Detention Goal (LTG) Pt to ambulate 50' Min Ax1 /c FWW LTG Duration 09/11/18 Assessment Summary Assessment Increased LE tightness noted today, decreased ability to perform crunches in water noted as well today. Physical Therapy Plan Frequency and Duration Frequency of Treatment 2x/Week Duration of Treatment 3 months Plan of Care Start Date 06/12/18 Plan of Care End Date 09/11/18 Therapeutic Interventions Therapeutic Interventions Aquatic Therapy Balance Training Gait Training Manual Therapy Self-Care/Home Management Soft Tissue Mobilization Therapeutic Activities Therapeutic Exercises Next Visit Focus/Plan Next Note Type Treatment Note Next Visit Plan Continue combination of land and aquatic PT for strengthening, functional mobility skills, balance, ROM.
--- NOTE | 2018-07-21 16:46 | PT.OTN ---
Current Diagnoses Hemiplegia, unspecified affecting right dominant side (07/17/18) Muscle weakness (generalized) (07/17/18) Other muscle spasm (07/17/18) Cramp and spasm (07/17/18) Difficulty in walking, not elsewhere classified (07/17/18) Other lack of coordination (07/17/18) Unspecified lack of coordination (07/17/18) Personal history of other specified conditions (07/17/18) Physical Therapy Treatment Note PT-OP-A Visit Information Start: 01/25/18 14:39 Freq: Status: Active Protocol: Document 07/21/18 16:00 DCW (Rec: 07/21/18 16:46 DCW [id number]) Out-Patient Physical Therapy Visit Information Visit Information Visit Type Treatment Note Visit Start Time 16:00 Visit Stop Time 16:45 Total Visit Minutes 45 Visit Number [id number] Number of ARCHAEOLOGY PROFESSOR Visits 0 Evaluation Information Evaluation Date 02/20/16 PT-OP-B Current Condition Start: 03/06/18 17:37 Freq: Status: Active Protocol: Document 03/06/18 15:15 DCW (Rec: 03/06/18 18:01 DCW [id number]) Current Condition History of Current Condition History of Current Condition Please see patient's chart is therapy source for full history and initial evaluation Treatment Goals Patient/Caregiver Goals Pt states he wants to get back to walking more. PT-OP-C Subjective Start: 01/25/18 14:39 Freq: Status: Active Protocol: Document 07/21/18 16:00 DCW (Rec: 07/21/18 16:46 DCW [id number]) OP-PT Subjective Patient Comments Patient Comments My legs are just not working well right now. PT-OP-G Mobility & Gait Start: 03/06/18 17:37 Freq: Status: Active Protocol: Document 03/06/18 15:15 DCW (Rec: 03/06/18 18:01 DCW [id number]) OP Mobility Evaluation Transfers Sit to Stand Sit->Stand from wheelchair in parallel bars Mod Ax1 OP Gait Assessment Comments Gait Comments Pt ambulates 3' in // bars Mod Ax1 with increased gastroc tone/toe walking, decreased ability to flex knee, decreased foot clearance and difficulty advancing right foot. PT-OP-H Neuro Start: 03/06/18 17:37 Freq: Status: Active Protocol: Document 03/06/18 15:15 DCW (Rec: 03/06/18 18:01 DCW [id number]) Muscle Tone Tone Assessment Right Lower Extremity Flexor Tone Description Severe Hypertonicity Extensor Tone Description Severe Hypertonicity Left Lower Extremity Flexor Tone Description Severe Hypertonicity Extensor Tone Description Severe Hypertonicity PT-OP-K Range of Motion Start: 03/06/18 17:37 Freq: Status: Active Protocol: Document 03/06/18 15:15 DCW (Rec: 03/06/18 18:01 DCW [id number]) Hip Goniometric Range of Motion Hip Measured in Degrees Right Passive Testing Position Supine Flexion w/Knee Flexed 82 Abduction 20 Left Passive Testing Position Supine Flexion w/Knee Flexed 102 Abduction 22 PT-OP-M Strength Start: 03/06/18 17:37 Freq: Status: Active Protocol: Document 03/06/18 15:15 DCW (Rec: 03/06/18 18:01 DCW [id number]) Elbow/Forearm Strength Elbow and Forearm Manual Muscle Testing Right Flexion (C6) 4- Good- Extension (C7) 3- Fair- Left Flexion (C6) 4+ Good+ Extension (C7) 5 Normal PT-OP-Q Treatments Start: 03/06/18 17:37 Freq: Status: Active Protocol: Document 07/21/18 16:00 DCW (Rec: 07/21/18 16:46 DCW [id number]) Therapeutic Exercises Sitting Exercises 1 Sitting Exercise Name Shoulder flexion Pulleys Side bilateral Equipment Used Dea Therapeutic Activity Therapeutic Activity 1 Name Sit<->Stand at // bars Comments Mod Ax1 PT-OP-S Aquatic Treatment Start: 01/25/18 14:39 Freq: Status: Active Protocol: Document 07/17/18 11:00 SAK (Rec: 07/18/18 08:07 SAK [id number]) Aquatics Treatment Pool Entry/Exit Pool Entry/Exit Method Lift Assistance Maximal Assist Comments Max assist 2 Water Walking Sideways Water Level Chest Level Walking Equipment neck float, [place] float, parallel bars Level of Assistance Minimal Assistance Forwards Water Level Chest Level Walking Equipment Neck Float, PT assist, aquatic parallel bars Level of Assistance Moderate Assistance Maximal Assist Verbal Cues Comments assist for balance and weight- shift, advances LE's very short distance Lower Extremity Stretches Adductor stretch Details manual, supine Hamstring stretch Details manual, standing in parallel bars Spinal Exercises 2 Details partial prone to supine recvovery Reps/Duration 2x Comments min assist x 1, mod assist x 1 1 Details seated crunch Body Position Sitting Water Level Neck Level Equipment neck float, [place] float Reps/Duration 2x10 Comments seated on pool platform, PT holding LE's down Balance 2 Details vertical balance Body Position Standing Water Level [place] Comments deep and shallow water 1 Details partial supine to stand Water Level Neck Level Equipment [place] float, neck float Comments mod assist [place] Activities Other Activities partial pull-ups with mod assist Swim Strokes Backstroke Equipment Ankle Floats Neck Float Other Equipment Used [place] float Laps/Duration 5' Comments max assist for LE's, primarily uses left UE Other 1 Details sit to stand Equipment pool platform Reps/Duration 3 Comments max assist PT-OP-T Assessment and Plan Start: 01/25/18 14:39 Freq: Status: Active Protocol: Document 07/21/18 16:00 DCW (Rec: 07/21/18 16:46 DCW [id number]) Physical Therapy Assessment Impairments Impairments Activity Tolerance Balance Coordination Functional Activities Functional Mobility Gait ROM Soft Tissue Mobility Strength Tone Goals Four Impairment Transfers Alf Goal (LTG) Pt to perform sit->stand transfer in // bars CGA LTG Duration 09/11/18 Three Impairment Strength Alf Goal (LTG) Right elbow extension MMT to 3 +/5 LTG Duration 09/11/18 Two Impairment Hip ROM Short Term Goal (STG) Bilateral hip flexion to 110? Die Technician Goal (LTG) Bilateral Abduction to 30? LTG Duration 09/11/18 One Impairment Gait Die Technician Goal (LTG) Pt to ambulate 50' Min Ax1 /c FWW LTG Duration 09/11/18 Assessment Summary Assessment Pt initially struggled performing sit<->stands at // bars, unable to assist with his legs at all over multiple attempts. Following other activity, pt was able to return to // bars and perform transfers with Mod Ax1. Physical Therapy Plan Frequency and Duration Frequency of Treatment 2x/Week Duration of Treatment 3 months Plan of Care Start Date 06/12/18 Plan of Care End Date 09/11/18 Therapeutic Interventions Therapeutic Interventions Aquatic Therapy Balance Training Gait Training Manual Therapy Self-Care/Home Management Soft Tissue Mobilization Therapeutic Activities Therapeutic Exercises Next Visit Focus/Plan Next Note Type Treatment Note Next Visit Plan Continue combination of land and aquatic PT for strengthening, functional mobility skills, balance, ROM.
--- NOTE | 2018-07-26 16:42 | PT.OTN ---
Current Diagnoses Hemiplegia, unspecified affecting right dominant side (07/26/18) Muscle weakness (generalized) (07/26/18) Other muscle spasm (07/26/18) Cramp and spasm (07/26/18) Difficulty in walking, not elsewhere classified (07/26/18) Other lack of coordination (07/26/18) Unspecified lack of coordination (07/26/18) Personal history of other specified conditions (07/26/18) Physical Therapy Treatment Note PT-OP-A Visit Information Start: 01/25/18 14:39 Freq: Status: Active Protocol: Document 07/26/18 16:00 DCW (Rec: 07/26/18 16:15 DCW [id number]) Out-Patient Physical Therapy Visit Information Visit Information Visit Type Treatment Note Visit Start Time 16:00 Visit Stop Time 16:45 Total Visit Minutes 45 Visit Number 189 Number of TRANSLITERATOR Visits 0 Evaluation Information Evaluation Date 02/20/16 PT-OP-B Current Condition Start: 03/06/18 17:37 Freq: Status: Active Protocol: Document 03/06/18 15:15 DCW (Rec: 03/06/18 18:01 DCW [id number]) Current Condition History of Current Condition History of Current Condition Please see patient's chart is therapy source for full history and initial evaluation Treatment Goals Patient/Caregiver Goals Pt states he wants to get back to walking more. PT-OP-C Subjective Start: 01/25/18 14:39 Freq: Status: Active Protocol: Document 07/26/18 16:00 DCW (Rec: 07/26/18 16:15 DCW [id number]) OP-PT Subjective Patient Comments Patient Comments Pt reports his legs do not want to do anything today. PT-OP-G Mobility & Gait Start: 03/06/18 17:37 Freq: Status: Active Protocol: Document 03/06/18 15:15 DCW (Rec: 03/06/18 18:01 DCW [id number]) OP Mobility Evaluation Transfers Sit to Stand Sit->Stand from wheelchair in parallel bars Mod Ax1 OP Gait Assessment Comments Gait Comments Pt ambulates 3' in // bars Mod Ax1 with increased gastroc tone/toe walking, decreased ability to flex knee, decreased foot clearance and difficulty advancing right foot. PT-OP-H Neuro Start: 03/06/18 17:37 Freq: Status: Active Protocol: Document 03/06/18 15:15 DCW (Rec: 03/06/18 18:01 DCW [id number]) Muscle Tone Tone Assessment Right Lower Extremity Flexor Tone Description Severe Hypertonicity Extensor Tone Description Severe Hypertonicity Left Lower Extremity Flexor Tone Description Severe Hypertonicity Extensor Tone Description Severe Hypertonicity PT-OP-K Range of Motion Start: 03/06/18 17:37 Freq: Status: Active Protocol: Document 03/06/18 15:15 DCW (Rec: 03/06/18 18:01 DCW [id number]) Hip Goniometric Range of Motion Hip Measured in Degrees Right Passive Testing Position Supine Flexion w/Knee Flexed 82 Abduction 20 Left Passive Testing Position Supine Flexion w/Knee Flexed 102 Abduction 22 PT-OP-M Strength Start: 03/06/18 17:37 Freq: Status: Active Protocol: Document 03/06/18 15:15 DCW (Rec: 03/06/18 18:01 DCW [id number]) Elbow/Forearm Strength Elbow and Forearm Manual Muscle Testing Right Flexion (C6) 4- Good- Extension (C7) 3- Fair- Left Flexion (C6) 4+ Good+ Extension (C7) 5 Normal PT-OP-Q Treatments Start: 03/06/18 17:37 Freq: Status: Active Protocol: Document 07/26/18 16:00 DCW (Rec: 07/26/18 16:15 DCW [id number]) Cardio Equipment Recumbent Stepper (Sci-Fit) Duration (Minutes) 7 Resistance 3 Seat Position Removed Gym Equipment Cable Column (Body Solid) Rows Resistance 20# Lat Pull Down Resistance 30# Therapeutic Exercises Sitting Exercises 1 Sitting Exercise Name Shoulder flexion Pulleys Side bilateral Equipment Used Eda Therapeutic Activity Therapeutic Activity 1 Name Sit<->Stand at // bars Comments Mod Ax1 PT-OP-S Aquatic Treatment Start: 01/25/18 14:39 Freq: Status: Active Protocol: Document 07/17/18 11:00 SAK (Rec: 07/18/18 08:07 SAK [id number]) Aquatics Treatment Pool Entry/Exit Pool Entry/Exit Method Lift Assistance Maximal Assist Comments Max assist 2 Water Walking Sideways Water Level Chest Level Walking Equipment neck float, [place] float, parallel bars Level of Assistance Minimal Assistance Forwards Water Level Chest Level Walking Equipment Neck Float, PT assist, aquatic parallel bars Level of Assistance Moderate Assistance Maximal Assist Verbal Cues Comments assist for balance and weight- shift, advances LE's very short distance Lower Extremity Stretches Adductor stretch Details manual, supine Hamstring stretch Details manual, standing in parallel bars Spinal Exercises 2 Details partial prone to supine recvovery Reps/Duration 2x Comments min assist x 1, mod assist x 1 1 Details seated crunch Body Position Sitting Water Level Neck Level Equipment neck float, [place] float Reps/Duration 2x10 Comments seated on pool platform, PT holding LE's down Balance 2 Details vertical balance Body Position Standing Water Level [place] Comments deep and shallow water 1 Details partial supine to stand Water Level Neck Level Equipment [place] float, neck float Comments mod assist [place] Activities Other Activities partial pull-ups with mod assist Swim Strokes Backstroke Equipment Ankle Floats Neck Float Other Equipment Used [place] float Laps/Duration 5' Comments max assist for LE's, primarily uses left UE Other 1 Details sit to stand Equipment pool platform Reps/Duration 3 Comments max assist PT-OP-T Assessment and Plan Start: 01/25/18 14:39 Freq: Status: Active Protocol: Document 07/26/18 16:00 DCW (Rec: 07/26/18 16:15 DCW [id number]) Physical Therapy Assessment Impairments Impairments Activity Tolerance Balance Coordination Functional Activities Functional Mobility Gait ROM Soft Tissue Mobility Strength Tone Goals Four Impairment Transfers Flat Knitter Goal (LTG) Pt to perform sit->stand transfer in // bars CGA LTG Duration 09/11/18 Three Impairment Strength Snf Goal (LTG) Right elbow extension MMT to 3 +/5 LTG Duration 09/11/18 Two Impairment Hip ROM Short Term Goal (STG) Bilateral hip flexion to 110? Flat Knitter Goal (LTG) Bilateral Abduction to 30? 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 Physical Therapy Plan Frequency and Duration Frequency of Treatment 2x/Week Duration of Treatment 3 months Plan of Care Start Date 06/12/18 Plan of Care End Date 09/11/18 Therapeutic Interventions Therapeutic Interventions Aquatic Therapy Balance Training Gait Training Manual Therapy Self-Care/Home Management Soft Tissue Mobilization Therapeutic Activities Therapeutic Exercises Next Visit Focus/Plan Next Note Type Treatment Note Next Visit Plan Continue combination of land and aquatic PT for strengthening, functional mobility skills, balance, ROM.
--- NOTE | 2018-07-27 10:14 | PT.OPPOC ---
Late entry for 06/06/18) Current Diagnoses Hemiplegia, unspecified affecting right dominant side (07/26/18) Muscle weakness (generalized) (07/26/18) Other muscle spasm (07/26/18) Cramp and spasm (07/26/18) Difficulty in walking, not elsewhere classified (07/26/18) Other lack of coordination (07/26/18) Unspecified lack of coordination (07/26/18) Personal history of other specified conditions (07/26/18) Provider Visit Care Team Role Provider Type Ricardo Hinds MD Referring Provider Physician Specialty: Physical Medicine and Rehab Address: [address] [place] [address], [id number] Email: Katie Arreola MD Attending Provider Physician Family Provider Primary Care Provider Specialty: Family Practice Address: [address] [place] [address], [id number] Email: [email or web address] Plan Of Care PT-OP-T Assessment and Plan Start: 01/25/18 14:39 Freq: Status: Active Protocol: Document 07/26/18 16:00 DCW (Rec: 07/26/18 16:15 DCW [id number]) Physical Therapy Assessment Impairments Impairments Activity Tolerance Balance Coordination Functional Activities Functional Mobility Gait ROM Soft Tissue Mobility Strength Tone Goals Four Impairment Transfers Contract Law Specialist Goal (LTG) Pt to perform sit->stand transfer in // bars CGA LTG Duration 09/11/18 Three Impairment Strength Contract Law Specialist Goal (LTG) Right elbow extension MMT to 3 +/5 LTG Duration 09/11/18 Two Impairment Hip ROM Short Term Goal (STG) Bilateral hip flexion to 110? [facility] Goal (LTG) Bilateral Abduction to 30? 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 Physical Therapy Plan Frequency and Duration Frequency of Treatment 2x/Week Duration of Treatment 3 months Plan of Care Start Date 06/12/18 Plan of Care End Date 09/11/18 Therapeutic Interventions Therapeutic Interventions Aquatic Therapy Balance Training Gait Training Manual Therapy Self-Care/Home Management Soft Tissue Mobilization Therapeutic Activities Therapeutic Exercises Next Visit Focus/Plan Next Note Type Treatment Note Next Visit Plan Continue combination of land and aquatic PT for strengthening, functional mobility skills, balance, ROM. Plan of Care Dates Plan of Care Start Date 06/12/18 Plan of Care End Date 09/11/18 Please Sign and Return: I have reviewed this Plan of Care and certify that the skilled therapy services above are required to meet the patient?s needs. Physician Signature Date Printed Name and Credentials Clinical Instructor Signature Printed Name and Credentials
--- NOTE | 2018-08-09 16:46 | PT.OTN ---
Current Diagnoses Hemiplegia, unspecified affecting right dominant side (08/09/18) Muscle weakness (generalized) (08/09/18) Other muscle spasm (08/09/18) Cramp and spasm (08/09/18) Difficulty in walking, not elsewhere classified (08/09/18) Other lack of coordination (08/09/18) Unspecified lack of coordination (08/09/18) Personal history of other specified conditions (08/09/18) Physical Therapy Treatment Note PT-OP-A Visit Information Start: 01/25/18 14:39 Freq: Status: Active Protocol: Document 08/09/18 16:00 DCW (Rec: 08/09/18 16:45 DCW [id number]) Out-Patient Physical Therapy Visit Information Visit Information Visit Type Treatment Note Visit Start Time 16:00 Visit Stop Time 16:45 Total Visit Minutes 45 Visit Number 190 Number of REPROGRAPHICS ASSOCIATE Visits 0 Evaluation Information Evaluation Date 02/20/16 PT-OP-B Current Condition Start: 03/06/18 17:37 Freq: Status: Active Protocol: Document 03/06/18 15:15 DCW (Rec: 03/06/18 18:01 DCW [id number]) Current Condition History of Current Condition History of Current Condition Please see patient's chart is therapy source for full history and initial evaluation Treatment Goals Patient/Caregiver Goals Pt states he wants to get back to walking more. PT-OP-C Subjective Start: 01/25/18 14:39 Freq: Status: Active Protocol: Document 08/09/18 16:00 DCW (Rec: 08/09/18 16:45 DCW [id number]) OP-PT Subjective Patient Comments Patient Comments Pt reports he is pretty good today. PT-OP-G Mobility & Gait Start: 03/06/18 17:37 Freq: Status: Active Protocol: Document 03/06/18 15:15 DCW (Rec: 03/06/18 18:01 DCW [id number]) OP Mobility Evaluation Transfers Sit to Stand Sit->Stand from wheelchair in parallel bars Mod Ax1 OP Gait Assessment Comments Gait Comments Pt ambulates 3' in // bars Mod Ax1 with increased gastroc tone/toe walking, decreased ability to flex knee, decreased foot clearance and difficulty advancing right foot. PT-OP-H Neuro Start: 03/06/18 17:37 Freq: Status: Active Protocol: Document 03/06/18 15:15 DCW (Rec: 03/06/18 18:01 DCW [id number]) Muscle Tone Tone Assessment Right Lower Extremity Flexor Tone Description Severe Hypertonicity Extensor Tone Description Severe Hypertonicity Left Lower Extremity Flexor Tone Description Severe Hypertonicity Extensor Tone Description Severe Hypertonicity PT-OP-K Range of Motion Start: 03/06/18 17:37 Freq: Status: Active Protocol: Document 03/06/18 15:15 DCW (Rec: 03/06/18 18:01 DCW [id number]) Hip Goniometric Range of Motion Hip Measured in Degrees Right Passive Testing Position Supine Flexion w/Knee Flexed 82 Abduction 20 Left Passive Testing Position Supine Flexion w/Knee Flexed 102 Abduction 22 PT-OP-M Strength Start: 03/06/18 17:37 Freq: Status: Active Protocol: Document 03/06/18 15:15 DCW (Rec: 03/06/18 18:01 DCW [id number]) Elbow/Forearm Strength Elbow and Forearm Manual Muscle Testing Right Flexion (C6) 4- Good- Extension (C7) 3- Fair- Left Flexion (C6) 4+ Good+ Extension (C7) 5 Normal PT-OP-Q Treatments Start: 03/06/18 17:37 Freq: Status: Active Protocol: Document 08/09/18 16:00 DCW (Rec: 08/09/18 16:45 DCW [id number]) Cardio Equipment Recumbent Stepper (Sci-Fit) Duration (Minutes) 7 Resistance 3 Seat Position Removed Gym Equipment Cable Column (Body Solid) Rows Resistance 20# Lat Pull Down Resistance 30# Therapeutic Exercises Sitting Exercises 1 Sitting Exercise Name Shoulder flexion Pulleys Side bilateral Equipment Used Eda Therapeutic Activity Therapeutic Activity 1 Name Sit<->Stand at // bars Comments Max Ax1 PT-OP-S Aquatic Treatment Start: 01/25/18 14:39 Freq: Status: Active Protocol: Document 07/17/18 11:00 SAK (Rec: 07/18/18 08:07 SAK [id number]) Aquatics Treatment Pool Entry/Exit Pool Entry/Exit Method Lift Assistance Maximal Assist Comments Max assist 2 Water Walking Sideways Water Level Chest Level Walking Equipment neck float, [place] float, parallel bars Level of Assistance Minimal Assistance Forwards Water Level Chest Level Walking Equipment Neck Float, PT assist, aquatic parallel bars Level of Assistance Moderate Assistance Maximal Assist Verbal Cues Comments assist for balance and weight- shift, advances LE's very short distance Lower Extremity Stretches Adductor stretch Details manual, supine Hamstring stretch Details manual, standing in parallel bars Spinal Exercises 2 Details partial prone to supine recvovery Reps/Duration 2x Comments min assist x 1, mod assist x 1 1 Details seated crunch Body Position Sitting Water Level Neck Level Equipment neck float, [place] float Reps/Duration 2x10 Comments seated on pool platform, PT holding LE's down Balance 2 Details vertical balance Body Position Standing Water Level [place] Comments deep and shallow water 1 Details partial supine to stand Water Level Neck Level Equipment [place] float, neck float Comments mod assist [place] Activities Other Activities partial pull-ups with mod assist Swim Strokes Backstroke Equipment Ankle Floats Neck Float Other Equipment Used [place] float Laps/Duration 5' Comments max assist for LE's, primarily uses left UE Other 1 Details sit to stand Equipment pool platform Reps/Duration 3 Comments max assist PT-OP-T Assessment and Plan Start: 01/25/18 14:39 Freq: Status: Active Protocol: Document 08/09/18 16:00 DCW (Rec: 08/09/18 16:45 DCW [id number]) Physical Therapy Assessment Impairments Impairments Activity Tolerance Balance Coordination Functional Activities Functional Mobility Gait ROM Soft Tissue Mobility Strength Tone Goals Four Impairment Transfers Cnc Maintenance Technician Goal (LTG) Pt to perform sit->stand transfer in // bars CGA LTG Duration 09/11/18 Three Impairment Strength Shelter Goal (LTG) Right elbow extension MMT to 3 +/5 LTG Duration 09/11/18 Two Impairment Hip ROM Short Term Goal (STG) Bilateral hip flexion to 110? Cnc Maintenance Technician Goal (LTG) Bilateral Abduction to 30? LTG Duration 09/11/18 One Impairment Gait Shelter Goal (LTG) Pt to ambulate 50' Min Ax1 /c FWW LTG Duration 09/11/18 Assessment Summary Assessment Pt completely unable to perform sit<->stand today. 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 Physical Therapy Plan Frequency and Duration Frequency of Treatment 2x/Week Duration of Treatment 3 months Plan of Care Start Date 06/12/18 Plan of Care End Date 09/11/18 Therapeutic Interventions Therapeutic Interventions Aquatic Therapy Balance Training Gait Training Manual Therapy Self-Care/Home Management Soft Tissue Mobilization Therapeutic Activities Therapeutic Exercises Next Visit Focus/Plan Next Note Type Treatment Note Next Visit Plan Continue combination of land and aquatic PT for strengthening, functional mobility skills, balance, ROM.
--- NOTE | 2018-08-16 16:42 | PT.OTN ---
Current Diagnoses Hemiplegia, unspecified affecting right dominant side (08/16/18) Muscle weakness (generalized) (08/16/18) Other muscle spasm (08/16/18) Cramp and spasm (08/16/18) Difficulty in walking, not elsewhere classified (08/16/18) Other lack of coordination (08/16/18) Unspecified lack of coordination (08/16/18) Personal history of other specified conditions (08/16/18) Physical Therapy Treatment Note PT-OP-A Visit Information Start: 01/25/18 14:39 Freq: Status: Active Protocol: Document 08/16/18 16:00 DCW (Rec: 08/16/18 16:42 DCW [id number]) Out-Patient Physical Therapy Visit Information Visit Information Visit Type Treatment Note Visit Start Time 16:00 Visit Stop Time 16:45 Total Visit Minutes 45 Visit Number 191 Number of DOUBLE NEEDLE OPERATOR LOCKSTITCH Visits 0 Evaluation Information Evaluation Date 02/20/16 PT-OP-B Current Condition Start: 03/06/18 17:37 Freq: Status: Active Protocol: Document 03/06/18 15:15 DCW (Rec: 03/06/18 18:01 DCW [id number]) Current Condition History of Current Condition History of Current Condition Please see patient's chart is therapy source for full history and initial evaluation Treatment Goals Patient/Caregiver Goals Pt states he wants to get back to walking more. 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 PT-OP-G Mobility & Gait Start: 03/06/18 17:37 Freq: Status: Active Protocol: Document 03/06/18 15:15 DCW (Rec: 03/06/18 18:01 DCW [id number]) OP Mobility Evaluation Transfers Sit to Stand Sit->Stand from wheelchair in parallel bars Mod Ax1 OP Gait Assessment Comments Gait Comments Pt ambulates 3' in // bars Mod Ax1 with increased gastroc tone/toe walking, decreased ability to flex knee, decreased foot clearance and difficulty advancing right foot. PT-OP-H Neuro Start: 03/06/18 17:37 Freq: Status: Active Protocol: Document 03/06/18 15:15 DCW (Rec: 03/06/18 18:01 DCW [id number]) Muscle Tone Tone Assessment Right Lower Extremity Flexor Tone Description Severe Hypertonicity Extensor Tone Description Severe Hypertonicity Left Lower Extremity Flexor Tone Description Severe Hypertonicity Extensor Tone Description Severe Hypertonicity PT-OP-K Range of Motion Start: 03/06/18 17:37 Freq: Status: Active Protocol: Document 03/06/18 15:15 DCW (Rec: 03/06/18 18:01 DCW [id number]) Hip Goniometric Range of Motion Hip Measured in Degrees Right Passive Testing Position Supine Flexion w/Knee Flexed 82 Abduction 20 Left Passive Testing Position Supine Flexion w/Knee Flexed 102 Abduction 22 PT-OP-M Strength Start: 03/06/18 17:37 Freq: Status: Active Protocol: Document 03/06/18 15:15 DCW (Rec: 03/06/18 18:01 DCW [id number]) Elbow/Forearm Strength Elbow and Forearm Manual Muscle Testing Right Flexion (C6) 4- Good- Extension (C7) 3- Fair- Left Flexion (C6) 4+ Good+ Extension (C7) 5 Normal PT-OP-Q Treatments Start: 03/06/18 17:37 Freq: Status: Active Protocol: Document 08/16/18 16:00 DCW (Rec: 08/16/18 16:42 DCW [id number]) Cardio Equipment Recumbent Stepper (Sci-Fit) Duration (Minutes) 7 Resistance 3 Seat Position Removed Gym Equipment Cable Column (Body Solid) Rows Resistance 20# Lat Pull Down Resistance 30# Therapeutic Exercises Sitting Exercises 1 Sitting Exercise Name Shoulder flexion Pulleys Side bilateral Equipment Used Eda Therapeutic Activity Therapeutic Activity 1 Name Sit<->Stand at // bars Comments Max Ax2 Neuro Re-Education Treatment Coordination Activities 1 Details Cone activities - Kicking target cones Equipment Multi-colored cones PT-OP-S Aquatic Treatment Start: 01/25/18 14:39 Freq: Status: Active Protocol: Document 07/17/18 11:00 SAK (Rec: 07/18/18 08:07 SAK [id number]) Aquatics Treatment Pool Entry/Exit Pool Entry/Exit Method Lift Assistance Maximal Assist Comments Max assist 2 Water Walking Sideways Water Level Chest Level Walking Equipment neck float, [place] float, parallel bars Level of Assistance Minimal Assistance Forwards Water Level Chest Level Walking Equipment Neck Float, PT assist, aquatic parallel bars Level of Assistance Moderate Assistance Maximal Assist Verbal Cues Comments assist for balance and weight- shift, advances LE's very short distance Lower Extremity Stretches Adductor stretch Details manual, supine Hamstring stretch Details manual, standing in parallel bars Spinal Exercises 2 Details partial prone to supine recvovery Reps/Duration 2x Comments min assist x 1, mod assist x 1 1 Details seated crunch Body Position Sitting Water Level Neck Level Equipment neck float, [place] float Reps/Duration 2x10 Comments seated on pool platform, PT holding LE's down Balance 2 Details vertical balance Body Position Standing Water Level [place] Comments deep and shallow water 1 Details partial supine to stand Water Level Neck Level Equipment [place] float, neck float Comments mod assist [place] Activities Other Activities partial pull-ups with mod assist Swim Strokes Backstroke Equipment Ankle Floats Neck Float Other Equipment Used [place] float Laps/Duration 5' Comments max assist for LE's, primarily uses left UE Other 1 Details sit to stand Equipment pool platform Reps/Duration 3 Comments max assist PT-OP-T Assessment and Plan Start: 01/25/18 14:39 Freq: Status: Active Protocol: Document 08/16/18 16:00 DCW (Rec: 08/16/18 16:42 DCW [id number]) Physical Therapy Assessment Impairments Impairments Activity Tolerance Balance Coordination Functional Activities Functional Mobility Gait ROM Soft Tissue Mobility Strength Tone Goals Four Impairment Transfers Long-Term Goal (LTG) Pt to perform sit->stand transfer in // bars CGA LTG Duration 09/11/18 Three Impairment Strength Geospatial Information Scientist Goal (LTG) Right elbow extension MMT to 3 +/5 LTG Duration 09/11/18 Two Impairment Hip ROM Short Term Goal (STG) Bilateral hip flexion to 110? Geospatial Information Scientist Goal (LTG) Bilateral Abduction to 30? LTG Duration 09/11/18 One Impairment Gait Long-Term Goal (LTG) Pt to ambulate 50' Min Ax1 /c FWW LTG Duration 09/11/18 Assessment Summary Assessment Pt able to sit->stand today with Max Ax2, unable to straighten up when standing, however did well lowering himself back into sitting with Mod Ax2 Physical Therapy Plan Frequency and Duration Frequency of Treatment 2x/Week Duration of Treatment 3 months Plan of Care Start Date 06/12/18 Plan of Care End Date 09/11/18 Therapeutic Interventions Therapeutic Interventions Aquatic Therapy Balance Training Gait Training Manual Therapy Self-Care/Home Management Soft Tissue Mobilization Therapeutic Activities Therapeutic Exercises Next Visit Focus/Plan Next Note Type Treatment Note Next Visit Plan Continue combination of land and aquatic PT for strengthening, functional mobility skills, balance, ROM.
--- NOTE | 2018-08-29 17:21 | PT.OTN ---
Current Diagnoses Hemiplegia, unspecified affecting right dominant side (08/28/18) Muscle weakness (generalized) (08/28/18) Other muscle spasm (08/28/18) Cramp and spasm (08/28/18) Difficulty in walking, not elsewhere classified (08/28/18) Other lack of coordination (08/28/18) Unspecified lack of coordination (08/28/18) Personal history of other specified conditions (08/28/18) Physical Therapy Treatment Note PT-OP-A Visit Information Start: 01/25/18 14:39 Freq: Status: Active Protocol: Document 08/28/18 12:30 SAK (Rec: 08/29/18 17:21 [facility] [id number]) Out-Patient Physical Therapy Visit Information Visit Information Visit Type Aquatic Treatment Note Visit Start Time 12:30 Visit Stop Time 13:20 Total Visit Minutes 50 Visit Number 192 Number of RN FLOAT Visits 0 Evaluation Information Evaluation Date 02/20/16 PT-OP-B Current Condition Start: 03/06/18 17:37 Freq: Status: Active Protocol: Document 03/06/18 15:15 DCW (Rec: 03/06/18 18:01 DCW [id number]) Current Condition History of Current Condition History of Current Condition Please see patient's chart is therapy source for full history and initial evaluation Treatment Goals Patient/Caregiver Goals Pt states he wants to get back to walking more. PT-OP-C Subjective Start: 01/25/18 14:39 Freq: Status: Active Protocol: Document 08/28/18 12:30 SAK (Rec: 08/29/18 17:21 [facility] [id number]) OP-PT Subjective Patient Comments Patient Comments Caregiver reports he hurt his back keeping Jonnie from sliding off the bed. He states the Carlos Alberto lift that was recently obtained doesn't fit Jonnie, so they are unable to use it; too small. He states it is getting more and more difficult to transfer Jonnie. Jonnie reports frustration with his decline in function. Also states he is waiting for a new hospital bed but that insurance is taking a long time; states his current mattress is as old as he is and way to soft and difficult to move in. PT-OP-G Mobility & Gait Start: 03/06/18 17:37 Freq: Status: Active Protocol: Document 03/06/18 15:15 DCW (Rec: 03/06/18 18:01 DCW [id number]) OP Mobility Evaluation Transfers Sit to Stand Sit->Stand from wheelchair in parallel bars Mod Ax1 OP Gait Assessment Comments Gait Comments Pt ambulates 3' in // bars Mod Ax1 with increased gastroc tone/toe walking, decreased ability to flex knee, decreased foot clearance and difficulty advancing right foot. PT-OP-H Neuro Start: 03/06/18 17:37 Freq: Status: Active Protocol: Document 03/06/18 15:15 DCW (Rec: 03/06/18 18:01 DCW [id number]) Muscle Tone Tone Assessment Right Lower Extremity Flexor Tone Description Severe Hypertonicity Extensor Tone Description Severe Hypertonicity Left Lower Extremity Flexor Tone Description Severe Hypertonicity Extensor Tone Description Severe Hypertonicity PT-OP-K Range of Motion Start: 03/06/18 17:37 Freq: Status: Active Protocol: Document 03/06/18 15:15 DCW (Rec: 03/06/18 18:01 DCW [id number]) Hip Goniometric Range of Motion Hip Measured in Degrees Right Passive Testing Position Supine Flexion w/Knee Flexed 82 Abduction 20 Left Passive Testing Position Supine Flexion w/Knee Flexed 102 Abduction 22 PT-OP-M Strength Start: 03/06/18 17:37 Freq: Status: Active Protocol: Document 03/06/18 15:15 DCW (Rec: 03/06/18 18:01 DCW [id number]) Elbow/Forearm Strength Elbow and Forearm Manual Muscle Testing Right Flexion (C6) 4- Good- Extension (C7) 3- Fair- Left Flexion (C6) 4+ Good+ Extension (C7) 5 Normal PT-OP-Q Treatments Start: 03/06/18 17:37 Freq: Status: Active Protocol: Document 08/16/18 16:00 DCW (Rec: 08/16/18 16:42 DCW [id number]) Cardio Equipment Recumbent Stepper (Sci-Fit) Duration (Minutes) 7 Resistance 3 Seat Position Removed Gym Equipment Cable Column (Body Solid) Rows Resistance 20# Lat Pull Down Resistance 30# Therapeutic Exercises Sitting Exercises 1 Sitting Exercise Name Shoulder flexion Pulleys Side bilateral Equipment Used Eda Therapeutic Activity Therapeutic Activity 1 Name Sit<->Stand at // bars Comments Max Ax2 Neuro Re-Education Treatment Coordination Activities 1 Details Cone activities - Kicking target cones Equipment Multi-colored cones PT-OP-S Aquatic Treatment Start: 01/25/18 14:39 Freq: Status: Active Protocol: Document 08/28/18 12:30 [facility] (Rec: 08/29/18 17:21 [facility] [id number]) Aquatics Treatment Pool Entry/Exit Pool Entry/Exit Method Lift Assistance Maximal Assist Comments Max assist 2 Water Walking Sideways Water Level Chest Level Walking Equipment neck float, [place] float, parallel bars Level of Assistance Minimal Assistance Forwards Water Level Chest Level Walking Equipment Neck Float, PT assist, aquatic parallel bars Level of Assistance Moderate Assistance Maximal Assist Verbal Cues Comments assist for balance and weight- shift, advances LE's very short distance Lower Extremity Stretches HC stretch Details standing on end of aquatic parallel bars Adductor stretch Details manual, supine Hamstring stretch Details manual, standing in parallel bars Spinal Exercises 2 Details partial prone to supine recvovery Reps/Duration 2x Comments min assist x 1, mod assist x 1 1 Details seated crunch Body Position Sitting Water Level Neck Level Equipment neck float, [place] float Reps/Duration 2x10 Comments seated on pool platform, PT holding LE's down Balance 2 Details vertical balance Body Position Standing Water Level [place] Comments deep and shallow water 1 Details partial supine to stand Water Level Neck Level Equipment [place] float, neck float Comments mod assist Swim Strokes Backstroke Equipment Ankle Floats Neck Float Other Equipment Used [place] float Laps/Duration 5' Comments max assist for LE's, primarily uses left UE PT-OP-T Assessment and Plan Start: 01/25/18 14:39 Freq: Status: Active Protocol: Document 08/28/18 12:30 [facility] (Rec: 08/29/18 17:21 [facility] [id number]) Physical Therapy Assessment Impairments Impairments Activity Tolerance Balance Coordination Functional Activities Functional Mobility Gait ROM Soft Tissue Mobility Strength Tone Goals Four Impairment Transfers Fpc Goal (LTG) Pt to perform sit->stand transfer in // bars CGA LTG Duration 09/11/18 Three Impairment Strength Collar Turner Goal (LTG) Right elbow extension MMT to 3 +/5 LTG Duration 09/11/18 Two Impairment Hip ROM Short Term Goal (STG) Bilateral hip flexion to 110? Collar Turner Goal (LTG) Bilateral Abduction to 30? LTG Duration 09/11/18 One Impairment Gait Collar Turner Goal (LTG) Pt to ambulate 50' Min Ax1 /c FWW LTG Duration 09/11/18 Assessment Summary Assessment Jonnie's functional status declining putting him and his caregivers at increased risk. Feel he would benefit from Home Health PT at this time to help problem solve his home environment including the mechanical lift and help him to function better in his home . Discussed this with his mother by phone and she agrees . Will continue with aquatic PT but discontinue PT in the clinic at this time. Physical Therapy Plan Frequency and Duration Frequency of Treatment 2x/Week Duration of Treatment 3 months Plan of Care Start Date 06/12/18 Plan of Care End Date 09/11/18 Therapeutic Interventions Therapeutic Interventions Aquatic Therapy Balance Training Gait Training Manual Therapy Self-Care/Home Management Soft Tissue Mobilization Therapeutic Activities Therapeutic Exercises Next Visit Focus/Plan Next Note Type Treatment Note Next Visit Plan Discontinue land-based PT in the clinic. Request order from physician for Home Health PT. Continue aquatic PT.
--- NOTE | 2018-09-06 11:47 | PT.OTN ---
Current Diagnoses Hemiplegia, unspecified affecting right dominant side (09/04/18) Muscle weakness (generalized) (09/04/18) Other muscle spasm (09/04/18) Cramp and spasm (09/04/18) Difficulty in walking, not elsewhere classified (09/04/18) Other lack of coordination (09/04/18) Unspecified lack of coordination (09/04/18) Personal history of other specified conditions (09/04/18) Physical Therapy Treatment Note PT-OP-A Visit Information Start: 01/25/18 14:39 Freq: Status: Active Protocol: Document 09/04/18 11:45 SAK (Rec: 09/06/18 11:46 [facility] [id number]) Out-Patient Physical Therapy Visit Information Visit Information Visit Type Aquatic Treatment Note Visit Start Time 11:45 Visit Stop Time 12:35 Total Visit Minutes 50 Visit Number 193 Number of FISH PEDDLER Visits 0 Evaluation Information Evaluation Date 02/20/16 PT-OP-B Current Condition Start: 03/06/18 17:37 Freq: Status: Active Protocol: Document 03/06/18 15:15 DCW (Rec: 03/06/18 18:01 DC [id number]) Current Condition History of Current Condition History of Current Condition Please see patient's chart is therapy source for full history and initial evaluation Treatment Goals Patient/Caregiver Goals Pt states he wants to get back to walking more. PT-OP-C Subjective Start: 01/25/18 14:39 Freq: Status: Active Protocol: Document 09/04/18 11:45 SAK (Rec: 09/06/18 11:46 [facility] [id number]) OP-PT Subjective Patient Comments Patient Comments No new c/o. Patient excited about the play he was in over the weekend. PT-OP-G Mobility & Gait Start: 03/06/18 17:37 Freq: Status: Active Protocol: Document 03/06/18 15:15 DCW (Rec: 03/06/18 18:01 DCW [id number]) OP Mobility Evaluation Transfers Sit to Stand Sit->Stand from wheelchair in parallel bars Mod Ax1 OP Gait Assessment Comments Gait Comments Pt ambulates 3' in // bars Mod Ax1 with increased gastroc tone/toe walking, decreased ability to flex knee, decreased foot clearance and difficulty advancing right foot. PT-OP-H Neuro Start: 03/06/18 17:37 Freq: Status: Active Protocol: Document 03/06/18 15:15 DCW (Rec: 03/06/18 18:01 DCW [id number]) Muscle Tone Tone Assessment Right Lower Extremity Flexor Tone Description Severe Hypertonicity Extensor Tone Description Severe Hypertonicity Left Lower Extremity Flexor Tone Description Severe Hypertonicity Extensor Tone Description Severe Hypertonicity PT-OP-K Range of Motion Start: 03/06/18 17:37 Freq: Status: Active Protocol: Document 03/06/18 15:15 DCW (Rec: 03/06/18 18:01 DCW [id number]) Hip Goniometric Range of Motion Hip Measured in Degrees Right Passive Testing Position Supine Flexion w/Knee Flexed 82 Abduction 20 Left Passive Testing Position Supine Flexion w/Knee Flexed 102 Abduction 22 PT-OP-M Strength Start: 03/06/18 17:37 Freq: Status: Active Protocol: Document 03/06/18 15:15 DCW (Rec: 03/06/18 18:01 DCW [id number]) Elbow/Forearm Strength Elbow and Forearm Manual Muscle Testing Right Flexion (C6) 4- Good- Extension (C7) 3- Fair- Left Flexion (C6) 4+ Good+ Extension (C7) 5 Normal PT-OP-Q Treatments Start: 03/06/18 17:37 Freq: Status: Active Protocol: Document 08/16/18 16:00 DCW (Rec: 08/16/18 16:42 DCW [id number]) Cardio Equipment Recumbent Stepper (Sci-Fit) Duration (Minutes) 7 Resistance 3 Seat Position Removed Gym Equipment Cable Column (Body Solid) Rows Resistance 20# Lat Pull Down Resistance 30# Therapeutic Exercises Sitting Exercises 1 Sitting Exercise Name Shoulder flexion Pulleys Side bilateral Equipment Used Eda Therapeutic Activity Therapeutic Activity 1 Name Sit<->Stand at // bars Comments Max Ax2 Neuro Re-Education Treatment Coordination Activities 1 Details Cone activities - Kicking target cones Equipment Multi-colored cones PT-OP-S Aquatic Treatment Start: 01/25/18 14:39 Freq: Status: Active Protocol: Document 09/04/18 11:45 SAK (Rec: 09/06/18 11:46 SAK [id number]) Aquatics Treatment Pool Entry/Exit Pool Entry/Exit Method Lift Assistance Maximal Assist Comments Max assist 2 Water Walking Sideways Water Level Chest Level Walking Equipment neck float, [place] float, parallel bars Level of Assistance Minimal Assistance Forwards Water Level Chest Level Walking Equipment Neck Float, PT assist, aquatic parallel bars Level of Assistance Moderate Assistance Maximal Assist Verbal Cues Comments assist for balance and weight- shift, advances LE's very short distance Lower Extremity Exercises squats Reps/Duration 12x Comments mod assist, holding pool edge Lower Extremity Stretches HC stretch Details standing on end of aquatic parallel bars Adductor stretch Details manual, supine Hamstring stretch Details manual, standing in parallel bars Spinal Exercises 2 Details partial prone to supine recvovery Reps/Duration 2x Comments min assist x 1, mod assist x 1 1 Details seated crunch Body Position Sitting Water Level Neck Level Equipment neck float, [place] float Reps/Duration 2x10 Comments seated on pool platform, PT holding LE's down Balance 2 Details vertical balance Body Position Standing Water Level [place] Comments deep and shallow water 1 Details partial supine to stand Water Level Neck Level Equipment [place] float, neck float Comments mod assist [place] Activities Other Activities partial pull-ups with mod assist Swim Strokes Backstroke Equipment Ankle Floats Neck Float Other Equipment Used [place] float Laps/Duration 5' Comments max assist for LE's, primarily uses left UE PT-OP-T Assessment and Plan Start: 01/25/18 14:39 Freq: Status: Active Protocol: Document 09/04/18 11:45 [facility] (Rec: 09/06/18 11:46 [facility] [id number]) Physical Therapy Assessment Impairments Impairments Activity Tolerance Balance Coordination Functional Activities Functional Mobility Gait ROM Soft Tissue Mobility Strength Tone Goals Four Impairment Transfers Usp Goal (LTG) Pt to perform sit->stand transfer in // bars CGA LTG Duration 09/11/18 Three Impairment Strength Day Habilitation Specialist Goal (LTG) Right elbow extension MMT to 3 +/5 LTG Duration 09/11/18 Two Impairment Hip ROM Short Term Goal (STG) Bilateral hip flexion to 110? Day Habilitation Specialist Goal (LTG) Bilateral Abduction to 30? LTG Duration 09/11/18 One Impairment Gait Usp Goal (LTG) Pt to ambulate 50' Min Ax1 /c FWW LTG Duration 09/11/18 Assessment Summary Assessment Patient has not heard about Home Health yet, not received new bed yet. More difficulty with crunches today. Physical Therapy Plan Frequency and Duration Frequency of Treatment 2x/Week Duration of Treatment 3 months Plan of Care Start Date 06/12/18 Plan of Care End Date 09/11/18 Therapeutic Interventions Therapeutic Interventions Aquatic Therapy Balance Training Gait Training Manual Therapy Self-Care/Home Management Soft Tissue Mobilization Therapeutic Activities Therapeutic Exercises Next Visit Focus/Plan Next Note Type Treatment Note Next Visit Plan Check to see if Home Health PT in place. Continue aquatic PT for strengthening, ROM, balance, gait, functional mobility.
--- NOTE | 2018-09-29 15:00 | PT.OTRE ---
Current Diagnoses Hemiplegia, unspecified affecting right dominant side (09/04/18) Muscle weakness (generalized) (09/04/18) Other muscle spasm (09/04/18) Cramp and spasm (09/04/18) Difficulty in walking, not elsewhere classified (09/04/18) Other lack of coordination (09/04/18) Unspecified lack of coordination (09/04/18) Personal history of other specified conditions (09/04/18) Past Medical History (Last Reviewed 09/18/18 @ 17:23 by Nargis Fernandez DO) Depression (Chronic) Glioma (Chronic) Hemiparesis (Chronic ~1984) Provider Visit Care Team Role Provider Type Ricardo Hinds MD Referring Provider Physician Specialty: Physical Medicine and Rehab Address: [address] [place] [address], [address] Email: Katie Arreola MD Attending Provider Physician Family Provider Primary Care Provider Specialty: Family Practice Address: [address] [place] [address], [address] Email: [email or web address] Physical Therapy Re-Evaluation PT-OP-A Visit Information Start: 01/25/18 14:39 Freq: Status: Active Protocol: Document 09/29/18 14:41 SAK (Rec: 09/29/18 15:00 SAK [id number]) Out-Patient Physical Therapy Visit Information Visit Information Visit Type Aquatic Treatment Note Visit Start Time 11:00 Visit Stop Time 11:45 Total Visit Minutes 50 Visit Number 194 Number of MANAGER [place] Visits 0 Evaluation Information Evaluation Date 02/20/16 PT-OP-B Current Condition Start: 03/06/18 17:37 Freq: Status: Active Protocol: Document 03/06/18 15:15 DCW (Rec: 03/06/18 18:01 DCW [id number]) Current Condition History of Current Condition History of Current Condition Please see patient's chart is therapy source for full history and initial evaluation Treatment Goals Patient/Caregiver Goals Pt states he wants to get back to walking more. PT-OP-C Subjective Start: 01/25/18 14:39 Freq: Status: Active Protocol: Document 09/29/18 14:41 SAK (Rec: 09/29/18 15:00 SAK [id number]) OP-PT Subjective Patient Comments Patient Comments Jonnie returns to treatment stating he was gone due to pneumonia, in hospital several days. Feeling better now, though tired. Reports a new lift for him is being worked on. PT-OP-G Mobility & Gait Start: 03/06/18 17:37 Freq: Status: Active Protocol: Document 03/06/18 15:15 DCW (Rec: 03/06/18 18:01 DCW [id number]) OP Mobility Evaluation Transfers Sit to Stand Sit->Stand from wheelchair in parallel bars Mod Ax1 OP Gait Assessment Comments Gait Comments Pt ambulates 3' in // bars Mod Ax1 with increased gastroc tone/toe walking, decreased ability to flex knee, decreased foot clearance and difficulty advancing right foot. PT-OP-H Neuro Start: 03/06/18 17:37 Freq: Status: Active Protocol: Document 03/06/18 15:15 DCW (Rec: 03/06/18 18:01 DCW [id number]) Muscle Tone Tone Assessment Right Lower Extremity Flexor Tone Description Severe Hypertonicity Extensor Tone Description Severe Hypertonicity Left Lower Extremity Flexor Tone Description Severe Hypertonicity Extensor Tone Description Severe Hypertonicity PT-OP-K Range of Motion Start: 03/06/18 17:37 Freq: Status: Active Protocol: Document 03/06/18 15:15 DCW (Rec: 03/06/18 18:01 DCW [id number]) Hip Goniometric Range of Motion Hip Measured in Degrees Right Passive Testing Position Supine Flexion w/Knee Flexed 82 Abduction 20 Left Passive Testing Position Supine Flexion w/Knee Flexed 102 Abduction 22 PT-OP-M Strength Start: 03/06/18 17:37 Freq: Status: Active Protocol: Document 03/06/18 15:15 DCW (Rec: 03/06/18 18:01 DCW [id number]) Elbow/Forearm Strength Elbow and Forearm Manual Muscle Testing Right Flexion (C6) 4- Good- Extension (C7) 3- Fair- Left Flexion (C6) 4+ Good+ Extension (C7) 5 Normal PT-OP-Q Treatments Start: 03/06/18 17:37 Freq: Status: Active Protocol: Document 08/16/18 16:00 DCW (Rec: 08/16/18 16:42 DCW [id number]) Cardio Equipment Recumbent Stepper (Sci-Fit) Duration (Minutes) 7 Resistance 3 Seat Position Removed Gym Equipment Cable Column (Body Solid) Rows Resistance 20# Lat Pull Down Resistance 30# Therapeutic Exercises Sitting Exercises 1 Sitting Exercise Name Shoulder flexion Pulleys Side bilateral Equipment Used Eda Therapeutic Activity Therapeutic Activity 1 Name Sit<->Stand at // bars Comments Max Ax2 Neuro Re-Education Treatment Coordination Activities 1 Details Cone activities - Kicking target cones Equipment Multi-colored cones PT-OP-T Assessment and Plan Start: 01/25/18 14:39 Freq: Status: Active Protocol: Document 09/29/18 14:41 LOLA (Rec: 09/29/18 15:00 SAK [id number]) Physical Therapy Assessment Impairments Impairments Activity Tolerance Balance Coordination Functional Activities Functional Mobility Gait ROM Soft Tissue Mobility Strength Tone Goals Four Impairment Transfers Intelligence Operations Goal (LTG) Pt to perform sit->stand transfer in // bars CGA LTG Duration 12/28/18 Three Impairment Strength Shelter Goal (LTG) Right elbow extension MMT to 3 +/5 LTG Duration 12/28/18 Two Impairment Hip ROM Short Term Goal (STG) Bilateral hip flexion to 110? Shelter Goal (LTG) Bilateral Abduction to 30? LTG Duration 12/28/18 One Impairment Gait [employer] Goal (LTG) Pt to ambulate 50' Min Ax1 /c FWW LTG Duration 12/28/18 Assessment Summary Assessment Decrease in activity tolerance and physical status today; noting increased tightness bilateral LE's, feeling weak. No goal progress. Physical Therapy Plan Frequency and Duration Frequency of Treatment 2x/Week Duration of Treatment 3 months Plan of Care Start Date 06/12/18 Plan of Care End Date 09/11/18 Therapeutic Interventions Therapeutic Interventions Aquatic Therapy Balance Training Gait Training Manual Therapy Self-Care/Home Management Soft Tissue Mobilization Therapeutic Activities Therapeutic Exercises Next Visit Focus/Plan Next Note Type Treatment Note Next Visit Plan Contact physician again regarding home health; feel he would benefit from Home Health nursing and Home Health PT in addition to aquatic PT on outpatient basis.
--- NOTE | 2018-09-29 15:00 | PT.OPPOC ---
Current Diagnoses Hemiplegia, unspecified affecting right dominant side (09/04/18) Muscle weakness (generalized) (09/04/18) Other muscle spasm (09/04/18) Cramp and spasm (09/04/18) Difficulty in walking, not elsewhere classified (09/04/18) Other lack of coordination (09/04/18) Unspecified lack of coordination (09/04/18) Personal history of other specified conditions (09/04/18) Provider Visit Care Team Role Provider Type Ricardo Hinds MD Referring Provider Physician Specialty: Physical Medicine and Rehab Address: [address] [place] [address], [address] Email: Katie Arreola MD Attending Provider Physician Family Provider Primary Care Provider Specialty: Family Practice Address: [address] [place] [address], [address] Email: [email or web address] Plan Of Care PT-OP-T Assessment and Plan Start: 01/25/18 14:39 Freq: Status: Active Protocol: Document 09/29/18 14:41 SAK (Rec: 09/29/18 15:00 SAK [id number]) Physical Therapy Assessment Impairments Impairments Activity Tolerance Balance Coordination Functional Activities Functional Mobility Gait ROM Soft Tissue Mobility Strength Tone Goals Four Impairment Transfers Investor Relations Director Goal (LTG) Pt to perform sit->stand transfer in // bars CGA LTG Duration 12/28/18 Three Impairment Strength Custodial Goal (LTG) Right elbow extension MMT to 3 +/5 LTG Duration 12/28/18 Two Impairment Hip ROM Short Term Goal (STG) Bilateral hip flexion to 110? Custodial Goal (LTG) Bilateral Abduction to 30? LTG Duration 12/28/18 One Impairment Gait Custodial Goal (LTG) Pt to ambulate 50' Min Ax1 /c FWW LTG Duration 12/28/18 Assessment Summary Assessment Decrease in activity tolerance and physical status today; noting increased tightness bilateral LE's, feeling weak. No goal progress. Physical Therapy Plan Frequency and Duration Frequency of Treatment 2x/Week Duration of Treatment 3 months Plan of Care Start Date 06/12/18 Plan of Care End Date 09/11/18 Therapeutic Interventions Therapeutic Interventions Aquatic Therapy Balance Training Gait Training Manual Therapy Self-Care/Home Management Soft Tissue Mobilization Therapeutic Activities Therapeutic Exercises Next Visit Focus/Plan Next Note Type Treatment Note Next Visit Plan Contact physician again regarding home health; feel he would benefit from Home Health nursing and Home Health PT in addition to aquatic PT on outpatient basis. Plan of Care Dates Plan of Care Start Date 06/12/18 Plan of Care End Date 09/11/18 Please Sign and Return: I have reviewed this Plan of Care and certify that the skilled therapy services above are required to meet the patient?s needs. Physician Signature Date Printed Name and Credentials Clinical Instructor Signature Printed Name and Credentials
--- NOTE | 2018-10-06 14:58 | PT.OPPOC ---
Current Diagnoses Hemiplegia, unspecified affecting right dominant side (10/06/18) Muscle weakness (generalized) (10/06/18) Other muscle spasm (10/06/18) Cramp and spasm (10/06/18) Difficulty in walking, not elsewhere classified (10/06/18) Other lack of coordination (10/06/18) Unspecified lack of coordination (10/06/18) Personal history of other specified conditions (10/06/18) Provider Visit Care Team Role Provider Type Ricardo Hinds MD Referring Provider Physician Specialty: Physical Medicine and Rehab Address: [address] [place] [address], [address] Email: Katie Arreola MD Attending Provider Physician Family Provider Primary Care Provider Specialty: Family Practice Address: [address] [place] [address], [address] Email: [email or web address] Plan Of Care PT-OP-T Assessment and Plan Start: 01/25/18 14:39 Freq: Status: Active Protocol: Document 09/29/18 14:41 SAK (Rec: 09/29/18 15:00 SAK [id number]) Physical Therapy Assessment Impairments Impairments Activity Tolerance Balance Coordination Functional Activities Functional Mobility Gait ROM Soft Tissue Mobility Strength Tone Goals Four Impairment Transfers Genetics Nurse Goal (LTG) Pt to perform sit->stand transfer in // bars CGA LTG Duration 12/28/18 Three Impairment Strength Group Home Goal (LTG) Right elbow extension MMT to 3 +/5 LTG Duration 12/28/18 Two Impairment Hip ROM Short Term Goal (STG) Bilateral hip flexion to 110? Group Home Goal (LTG) Bilateral Abduction to 30? LTG Duration 12/28/18 One Impairment Gait Group Home Goal (LTG) Pt to ambulate 50' Min Ax1 /c FWW LTG Duration 12/28/18 Assessment Summary Assessment Decrease in activity tolerance and physical status today; noting increased tightness bilateral LE's, feeling weak. No goal progress. Physical Therapy Plan Frequency and Duration Frequency of Treatment 2x/Week Duration of Treatment 3 months Plan of Care Start Date 09/29/18 Plan of Care End Date 12/28/18 Therapeutic Interventions Therapeutic Interventions Aquatic Therapy Balance Training Gait Training Manual Therapy Self-Care/Home Management Soft Tissue Mobilization Therapeutic Activities Therapeutic Exercises Next Visit Focus/Plan Next Note Type Treatment Note Next Visit Plan Contact physician again regarding home health; feel Jonnie would benefit from Home Health nursing and Home Health PT in addition to aquatic PT on outpatient basis. Plan of Care Dates Plan of Care Start Date 09/29/18 Plan of Care End Date 12/28/18 Please Sign and Return: I have reviewed this Plan of Care and certify that the skilled therapy services above are required to meet the patient?s needs. Physician Signature Date Printed Name and Credentials Clinical Instructor Signature Printed Name and Credentials
--- NOTE | 2018-10-06 14:58 | PT.OTRE ---
Current Diagnoses Hemiplegia, unspecified affecting right dominant side (10/06/18) Muscle weakness (generalized) (10/06/18) Other muscle spasm (10/06/18) Cramp and spasm (10/06/18) Difficulty in walking, not elsewhere classified (10/06/18) Other lack of coordination (10/06/18) Unspecified lack of coordination (10/06/18) Personal history of other specified conditions (10/06/18) Past Medical History (Last Reviewed 10/05/18 @ 10:52 by Nargis Fernandez DO) Depression (Chronic) Glioma (Chronic) Hemiparesis (Chronic ~1984) Provider Visit Care Team Role Provider Type Ricardo Hinds MD Referring Provider Physician Specialty: Physical Medicine and Rehab Address: [address] [place] [address], [address] Email: Katie Arreola MD Attending Provider Physician Family Provider Primary Care Provider Specialty: Family Practice Address: [address] [place] [address], [address] Email: [email or web address] Physical Therapy Re-Evaluation PT-OP-A Visit Information Start: 01/25/18 14:39 Freq: Status: Active Protocol: Document 09/29/18 14:41 SAK (Rec: 09/29/18 15:00 SAK [id number]) Out-Patient Physical Therapy Visit Information Visit Information Visit Type Aquatic Treatment Note Visit Start Time 11:00 Visit Stop Time 11:45 Total Visit Minutes 50 Visit Number 194 Number of FLOOR SUPERVISOR Visits 0 Evaluation Information Evaluation Date 02/20/16 PT-OP-B Current Condition Start: 03/06/18 17:37 Freq: Status: Active Protocol: Document 03/06/18 15:15 DCW (Rec: 03/06/18 18:01 DCW [id number]) Current Condition History of Current Condition History of Current Condition Please see patient's chart is therapy source for full history and initial evaluation Treatment Goals Patient/Caregiver Goals Pt states he wants to get back to walking more. PT-OP-C Subjective Start: 01/25/18 14:39 Freq: Status: Active Protocol: Document 09/29/18 14:41 SAK (Rec: 09/29/18 15:00 SAK [id number]) OP-PT Subjective Patient Comments Patient Comments Jonnie returns to treatment stating he was gone due to pneumonia, in hospital several days. Feeling better now, though tired. Reports a new lift for him is being worked on. PT-OP-G Mobility & Gait Start: 03/06/18 17:37 Freq: Status: Active Protocol: Document 03/06/18 15:15 DCW (Rec: 03/06/18 18:01 DCW [id number]) OP Mobility Evaluation Transfers Sit to Stand Sit->Stand from wheelchair in parallel bars Mod Ax1 OP Gait Assessment Comments Gait Comments Pt ambulates 3' in // bars Mod Ax1 with increased gastroc tone/toe walking, decreased ability to flex knee, decreased foot clearance and difficulty advancing right foot. PT-OP-H Neuro Start: 03/06/18 17:37 Freq: Status: Active Protocol: Document 03/06/18 15:15 DCW (Rec: 03/06/18 18:01 DCW [id number]) Muscle Tone Tone Assessment Right Lower Extremity Flexor Tone Description Severe Hypertonicity Extensor Tone Description Severe Hypertonicity Left Lower Extremity Flexor Tone Description Severe Hypertonicity Extensor Tone Description Severe Hypertonicity PT-OP-K Range of Motion Start: 03/06/18 17:37 Freq: Status: Active Protocol: Document 03/06/18 15:15 DCW (Rec: 03/06/18 18:01 DCW [id number]) Hip Goniometric Range of Motion Hip Measured in Degrees Right Passive Testing Position Supine Flexion w/Knee Flexed 82 Abduction 20 Left Passive Testing Position Supine Flexion w/Knee Flexed 102 Abduction 22 PT-OP-M Strength Start: 03/06/18 17:37 Freq: Status: Active Protocol: Document 03/06/18 15:15 DCW (Rec: 03/06/18 18:01 DCW [id number]) Elbow/Forearm Strength Elbow and Forearm Manual Muscle Testing Right Flexion (C6) 4- Good- Extension (C7) 3- Fair- Left Flexion (C6) 4+ Good+ Extension (C7) 5 Normal PT-OP-Q Treatments Start: 03/06/18 17:37 Freq: Status: Active Protocol: Document 08/16/18 16:00 DCW (Rec: 08/16/18 16:42 DCW [id number]) Cardio Equipment Recumbent Stepper (Sci-Fit) Duration (Minutes) 7 Resistance 3 Seat Position Removed Gym Equipment Cable Column (Body Solid) Rows Resistance 20# Lat Pull Down Resistance 30# Therapeutic Exercises Sitting Exercises 1 Sitting Exercise Name Shoulder flexion Pulleys Side bilateral Equipment Used Eda Therapeutic Activity Therapeutic Activity 1 Name Sit<->Stand at // bars Comments Max Ax2 Neuro Re-Education Treatment Coordination Activities 1 Details Cone activities - Kicking target cones Equipment Multi-colored cones PT-OP-T Assessment and Plan Start: 01/25/18 14:39 Freq: Status: Active Protocol: Document 09/29/18 14:41 LOLA (Rec: 09/29/18 15:00 SAK [id number]) Physical Therapy Assessment Impairments Impairments Activity Tolerance Balance Coordination Functional Activities Functional Mobility Gait ROM Soft Tissue Mobility Strength Tone Goals Four Impairment Transfers Ground [employer] Goal (LTG) Pt to perform sit->stand transfer in // bars CGA LTG Duration 12/28/18 Three Impairment Strength [facility]ci Goal (LTG) Right elbow extension MMT to 3 +/5 LTG Duration 12/28/18 Two Impairment Hip ROM Short Term Goal (STG) Bilateral hip flexion to 110? [facility]ci Goal (LTG) Bilateral Abduction to 30? LTG Duration 12/28/18 One Impairment Gait [employer] [address] [employer] Goal (LTG) Pt to ambulate 50' Min Ax1 /c FWW LTG Duration 12/28/18 Assessment Summary Assessment Decrease in activity tolerance and physical status today; noting increased tightness bilateral LE's, feeling weak. No goal progress. Physical Therapy Plan Frequency and Duration Frequency of Treatment 2x/Week Duration of Treatment 3 months Plan of Care Start Date 09/29/18 Plan of Care End Date 12/28/18 Therapeutic Interventions Therapeutic Interventions Aquatic Therapy Balance Training Gait Training Manual Therapy Self-Care/Home Management Soft Tissue Mobilization Therapeutic Activities Therapeutic Exercises Next Visit Focus/Plan Next Note Type Treatment Note Next Visit Plan Contact physician again regarding home health; feel Jonnie would benefit from Home Health nursing and Home Health PT in addition to aquatic PT on outpatient basis.
--- NOTE | 2018-10-06 15:07 | PT.OTN ---
Current Diagnoses Hemiplegia, unspecified affecting right dominant side (10/06/18) Muscle weakness (generalized) (10/06/18) Other muscle spasm (10/06/18) Cramp and spasm (10/06/18) Difficulty in walking, not elsewhere classified (10/06/18) Other lack of coordination (10/06/18) Unspecified lack of coordination (10/06/18) Personal history of other specified conditions (10/06/18) Physical Therapy Treatment Note PT-OP-A Visit Information Start: 01/25/18 14:39 Freq: Status: Active Protocol: Document 10/06/18 12:30 SAK (Rec: 10/06/18 15:05 [facility] [id number]) Out-Patient Physical Therapy Visit Information Visit Information Visit Type Aquatic Treatment Note Visit Start Time 12:30 Visit Stop Time 13:18 Total Visit Minutes 48 Visit Number [id number] Evaluation Information Evaluation Date 02/20/16 PT-OP-B Current Condition Start: 03/06/18 17:37 Freq: Status: Active Protocol: Document 03/06/18 15:15 DCW (Rec: 03/06/18 18:01 DCW [id number]) Current Condition History of Current Condition History of Current Condition Please see patient's chart is therapy source for full history and initial evaluation Treatment Goals Patient/Caregiver Goals Pt states he wants to get back to walking more. PT-OP-C Subjective Start: 01/25/18 14:39 Freq: Status: Active Protocol: Document 10/06/18 12:30 SAK (Rec: 10/06/18 15:05 SAK [id number]) OP-PT Subjective Patient Comments Patient Comments Jonnie reports he was started on Baclofen this week; feels weak but less stiff. Reports no Home Health yet PT-OP-G Mobility & Gait Start: 03/06/18 17:37 Freq: Status: Active Protocol: Document 03/06/18 15:15 DCW (Rec: 03/06/18 18:01 DCW [id number]) OP Mobility Evaluation Transfers Sit to Stand Sit->Stand from wheelchair in parallel bars Mod Ax1 OP Gait Assessment Comments Gait Comments Pt ambulates 3' in // bars Mod Ax1 with increased gastroc tone/toe walking, decreased ability to flex knee, decreased foot clearance and difficulty advancing right foot. PT-OP-H Neuro Start: 03/06/18 17:37 Freq: Status: Active Protocol: Document 03/06/18 15:15 DCW (Rec: 03/06/18 18:01 DCW [id number]) Muscle Tone Tone Assessment Right Lower Extremity Flexor Tone Description Severe Hypertonicity Extensor Tone Description Severe Hypertonicity Left Lower Extremity Flexor Tone Description Severe Hypertonicity Extensor Tone Description Severe Hypertonicity PT-OP-K Range of Motion Start: 03/06/18 17:37 Freq: Status: Active Protocol: Document 03/06/18 15:15 DCW (Rec: 03/06/18 18:01 DCW [id number]) Hip Goniometric Range of Motion Hip Measured in Degrees Right Passive Testing Position Supine Flexion w/Knee Flexed 82 Abduction 20 Left Passive Testing Position Supine Flexion w/Knee Flexed 102 Abduction 22 PT-OP-M Strength Start: 03/06/18 17:37 Freq: Status: Active Protocol: Document 03/06/18 15:15 DCW (Rec: 03/06/18 18:01 DCW [id number]) Elbow/Forearm Strength Elbow and Forearm Manual Muscle Testing Right Flexion (C6) 4- Good- Extension (C7) 3- Fair- Left Flexion (C6) 4+ Good+ Extension (C7) 5 Normal PT-OP-Q Treatments Start: 03/06/18 17:37 Freq: Status: Active Protocol: Document 08/16/18 16:00 DCW (Rec: 08/16/18 16:42 DCW [id number]) Cardio Equipment Recumbent Stepper (Sci-Fit) Duration (Minutes) 7 Resistance 3 Seat Position Removed Gym Equipment Cable Column (Body Solid) Rows Resistance 20# Lat Pull Down Resistance 30# Therapeutic Exercises Sitting Exercises 1 Sitting Exercise Name Shoulder flexion Pulleys Side bilateral Equipment Used Eda Therapeutic Activity Therapeutic Activity 1 Name Sit<->Stand at // bars Comments Max Ax2 Neuro Re-Education Treatment Coordination Activities 1 Details Cone activities - Kicking target cones Equipment Multi-colored cones PT-OP-S Aquatic Treatment Start: 01/25/18 14:39 Freq: Status: Active Protocol: Document 10/06/18 12:30 SAK (Rec: 10/06/18 15:05 SAK [id number]) Aquatics Treatment Pool Entry/Exit Pool Entry/Exit Method Lift Assistance Maximal Assist Comments Max assist 2 Water Walking Sideways Water Level Chest Level Walking Equipment neck float, [place] float, parallel bars Level of Assistance Minimal Assistance Forwards Water Level Chest Level Walking Equipment Neck Float, PT assist, aquatic parallel bars Level of Assistance Moderate Assistance Maximal Assist Verbal Cues Comments assist for balance and weight- shift, advances LE's very short distance Lower Extremity Exercises squats Reps/Duration 12x Comments mod assist, holding pool edge Lower Extremity Stretches HC stretch Details standing on end of aquatic parallel bars Adductor stretch Details manual, supine Hamstring stretch Details manual, standing in parallel bars Upper Extremity Exercises horizontal ab/ad Body Position reclined Reps/Duration 10x Comments mod assist right Upper Extremity Stretches biceps Details right biceps stretch Comments manual Spinal Exercises 2 Details partial prone to supine recvovery Reps/Duration 2x Comments min assist x 1, mod assist x 1 1 Details seated crunch Body Position Sitting Water Level Neck Level Equipment neck float, [place] [employer] float Reps/Duration 2x10 Comments seated on pool platform, PT holding LE's down [place] Activities Other Activities walk Equipment neck float, [place] float Swim Strokes Backstroke Equipment Ankle Floats Neck Float Other Equipment Used [place] float Laps/Duration 5' Comments max assist for LE's, primarily uses left UE PT-OP-T Assessment and Plan Start: 01/25/18 14:39 Freq: Status: Active Protocol: Document 10/06/18 12:30 [facility] (Rec: 10/06/18 15:05 [facility] [id number]) Physical Therapy Assessment Impairments Impairments Activity Tolerance Balance Coordination Functional Activities Functional Mobility Gait ROM Soft Tissue Mobility Strength Tone Goals Four Impairment Transfers Vegetable Loader Machine Operator Goal (LTG) Pt to perform sit->stand transfer in // bars CGA LTG Duration 12/28/18 Three Impairment Strength Vegetable Loader Machine Operator Goal (LTG) Right elbow extension MMT to 3 +/5 LTG Duration 12/28/18 Two Impairment Hip ROM Short Term Goal (STG) Bilateral hip flexion to 110? Vegetable Loader Machine Operator Goal (LTG) Bilateral Abduction to 30? LTG Duration 12/28/18 One Impairment Gait Snf Goal (LTG) Pt to ambulate 50' Min Ax1 /c FWW LTG Duration 12/28/18 Assessment Summary Assessment Jonnie was able to advance his LE's individually today in parallel bars and deep water ( small amplitude) vs recently unable in deep water, and minimally in aquatic parallel bars. Decreased LE stiffness noted with less effort from PT required to flex Jonnie's knees or to stretch his hamstrings Physical Therapy Plan Frequency and Duration Frequency of Treatment 2x/Week Duration of Treatment 3 months Plan of Care Start Date 09/29/18 Plan of Care End Date 12/28/18 Therapeutic Interventions Therapeutic Interventions Aquatic Therapy Balance Training Gait Training Manual Therapy Self-Care/Home Management Soft Tissue Mobilization Therapeutic Activities Therapeutic Exercises Next Visit Focus/Plan Next Note Type Treatment Note Next Visit Plan Progress aquatic exercises as tolerated. Contact physician regarding Home Health again.
--- NOTE | 2018-10-26 08:56 | PT.OPDS ---
Current Diagnoses Hemiplegia, unspecified affecting right dominant side (10/06/18) Muscle weakness (generalized) (10/06/18) Other muscle spasm (10/06/18) Cramp and spasm (10/06/18) Difficulty in walking, not elsewhere classified (10/06/18) Other lack of coordination (10/06/18) Unspecified lack of coordination (10/06/18) Personal history of other specified conditions (10/06/18) Provider Visit Care Team Role Provider Type Ricardo Hinds MD Referring Provider Physician Specialty: Physical Medicine and Rehab Address: [address] [place] [address], [id number] Email: Katie Arreola MD Attending Provider Physician Family Provider Primary Care Provider Specialty: Family Practice Address: [address] [place] [address], [id number] Email: [email or web address] Visit Number Visit Number 195 Discharge Summary PT-OP-B Current Condition Start: 03/06/18 17:37 Freq: Status: Active Protocol: Document 03/06/18 15:15 DCW (Rec: 03/06/18 18:01 DCW [id number]) Current Condition History of Current Condition History of Current Condition Please see patient's chart is therapy source for full history and initial evaluation Treatment Goals Patient/Caregiver Goals Pt states he wants to get back to walking more. PT-OP-C Subjective Start: 01/25/18 14:39 Freq: Status: Active Protocol: Document 10/06/18 12:30 SAK (Rec: 10/06/18 15:05 SAK [id number]) OP-PT Subjective Patient Comments Patient Comments Jonnie reports he was started on Baclofen this week; feels weak but less stiff. Reports no Home Health yet PT-OP-G Mobility & Gait Start: 03/06/18 17:37 Freq: Status: Active Protocol: Document 03/06/18 15:15 DCW (Rec: 03/06/18 18:01 DCW [id number]) OP Mobility Evaluation Transfers Sit to Stand Sit->Stand from wheelchair in parallel bars Mod Ax1 OP Gait Assessment Comments Gait Comments Pt ambulates 3' in // bars Mod Ax1 with increased gastroc tone/toe walking, decreased ability to flex knee, decreased foot clearance and difficulty advancing right foot. PT-OP-H Neuro Start: 03/06/18 17:37 Freq: Status: Active Protocol: Document 03/06/18 15:15 DCW (Rec: 03/06/18 18:01 DCW [id number]) Muscle Tone Tone Assessment Right Lower Extremity Flexor Tone Description Severe Hypertonicity Extensor Tone Description Severe Hypertonicity Left Lower Extremity Flexor Tone Description Severe Hypertonicity Extensor Tone Description Severe Hypertonicity PT-OP-K Range of Motion Start: 03/06/18 17:37 Freq: Status: Active Protocol: Document 03/06/18 15:15 DCW (Rec: 03/06/18 18:01 DCW [id number]) Hip Goniometric Range of Motion Hip Measured in Degrees Right Passive Testing Position Supine Flexion w/Knee Flexed 82 Abduction 20 Left Passive Testing Position Supine Flexion w/Knee Flexed 102 Abduction 22 PT-OP-M Strength Start: 03/06/18 17:37 Freq: Status: Active Protocol: Document 03/06/18 15:15 DCW (Rec: 03/06/18 18:01 DCW [id number]) Elbow/Forearm Strength Elbow and Forearm Manual Muscle Testing Right Flexion (C6) 4- Good- Extension (C7) 3- Fair- Left Flexion (C6) 4+ Good+ Extension (C7) 5 Normal PT-OP-T Assessment and Plan Start: 01/25/18 14:39 Freq: Status: Active Protocol: Document 10/26/18 08:55 LOLA (Rec: 10/26/18 08:56 SAK [id number]) Physical Therapy Plan Discharge Physical Therapy Discharge Reasons Change in Medical Status
== END 2018-12-06 13:31 ==
LOC: PHYS 12:30
PROVIDERS: Family Provider Family Medicine; PCP Family Medicine; Referring Provider Physical Medicine & Rehabilitation Pain Medicine; Visit Provider Family Medicine
DX: G81.91 Hemiplegia, unspecified affecting right dominant side (principal); R26.2 Difficulty in walking, not elsewhere classified; M62.838 Other muscle spasm; R27.8 Other lack of coordination; M62.81 Muscle weakness (generalized); R27.9 Unspecified lack of coordination; R25.2 Cramp and spasm; Z87.898 Personal history of other specified conditions
CPT/HCPCS: 97110; 97112; 97113; 97116; 97140; 97530

== ENCOUNTER 2018-10-12 13:53 | Inpatient (IN) | payer MEDICAID, OTHER, SELFPAY ==
[2018-10-12] VITALS (15 sets, daily range): BP systolic 131–169; BP diastolic 97–126; PULSE 112–133; RESP 18–26; TEMP 37.1–38.9; O2SAT 97–100; BMI 33.9
--- NOTE | 2018-10-12 14:30 | ED.SOB ---
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 I did evaluate this patient in the emergency department several weeks ago and admitted him for pneumonia where he spent a couple days. He returns today with his mother for symptoms that were very similar to that presentation. He was at his normal state health. He does live independently. Mother states that he woke up this morning with sinus congestion and sinus discharge and fevers and problems breathing. He did not try anything for symptoms prior to arrival. No change in his baseline neurologic status. Related Data Home Medications Medication Instructions Recorded Confirmed latanoprost 1 drp EYE-BOTH BEDTIME 09/18/18 10/12/18 baclofen 5 mg PO TID 10/12/18 10/12/18 Previous Rx's Medication Instructions Recorded fluoxetine 20 mg capsule 20 mg PO QDAY #90 cap 02/06/18 Battery Powered Lift #1 ea 03/02/18 miscellaneous medical supply misc #1 each 03/21/18 [facility] hospital bed #1 ea 06/07/18 Power Chair #1 ea 10/10/18 Allergies Allergy/AdvReac Type Severity Reaction Status Date / Time Penicillins [PENICILLINS] Allergy Severe RASH Verified 09/17/18 19:34 Review of Systems Review of Systems Provided by mother Constitutional Reports fever(s) Cardiovascular Denies chest pain and Reports dyspnea Respiratory Reports cough, Reports dyspnea and Reports wheezing Gastrointestinal Gastrointestinal: Denies vomiting Musculoskeletal Denies deformity Integumentary/Breasts Denies rash Neurologic Denies behavioral changes Psychiatric Denies behavioral changes Hematologic/Lymphatic Comments: Not on anticoagulation Allergic/Immunologic Reports seasonal rhinorrhea and Reports wheezing PFSH Social History marital status: unmarried,single household members: family, caregiver and none Smoking Status: Former smoker alcohol intake: never substance use type: marijuana Exam Initial Vital Signs Initial Vital Signs: Vital Signs Temperature 100.6 F H 10/12/18 13:52 Pulse Rate 112 H 10/12/18 13:52 Blood Pressure 169/107 H 10/12/18 13:52 Const General: well groomed Orientation: alert and awake Resp Effort & Inspection: cough and not labored Auscultation: rhonchi Cardio Pulses: radial pulses present GI Inspection: non-distended Palpation: soft Skin Lesions: no lesions Rashes: no rashes Neuro General: alert, awake and oriented x3 Course Orders Ordered: ED Orders 10/12/18 13:55 Influenza A and B by PCR Rapid Stat 10/12/18 14:29 Blood Culture Stat 10/12/18 14:30 XR chest 1V Stat 10/12/18 15:03 Sputum Culture Stat 10/12/18 15:51 Comprehensive Metabolic Panel Stat Lactate (Lactic Acid) Stat Lipase Stat Procalcitonin Stat 10/12/18 16:19 Complete Blood Count AUTO DIFF Stat 10/12/18 19:16 Consult to Discharge Planning Routine Consult to Occupational Therapy Evaluate & Treat Consult to Physical Therapy Evaluate & Treat Education, smoking cessation ONGOING Acetaminophen (Tylenol) 650 mg PO Q6HR PRN PRN Reason: As Needed for Fever/Mild Pain Baclofen (Lioresal) 5 mg PO TID JOSE MANUEL Enoxaparin Sodium (Lovenox) 40 mg SUBCUT DAILY JOSE MANUEL Fluoxetine HCl (Prozac) 20 mg PO DAILY JOSE MANUEL Dextrose/Sodium Chloride (Dextrose 5%-0.9% Ns) 1,000 mls @ 125 mls/hr IV CONT JOSE MANUEL Levofloxacin (Levaquin) 500 mg in 100 mls @ 100 mls/hr IV Q24H JOSE MANUEL Ibuprofen (Advil) 600 mg PO Q6HR PRN PRN Reason: As Needed for Fever/Mild Pain Latanoprost (Xalatan) 1 drops EYE-BOTH BEDTIME JOSE MANUEL Discontinued Medications Acetaminophen (Tylenol) 650 mg PO NOW ONE Stop: 10/12/18 14:30 Last Admin: 10/12/18 17:00 Dose: Acetaminophen (Tylenol) 650 mg DE NOW ONE Stop: 10/12/18 16:57 Last Admin: 10/12/18 16:58 Dose: 650 mg Sodium Chloride (Normal Saline 0.9%) 1,000 mls @ 1,000 mls/hr IV BOLUS ONE Stop: 10/12/18 15:28 Last Infusion: 10/12/18 16:25 Dose: 0 mls/hr Admin: 10/12/18 15:27 Dose: 1,000 mls/hr Levofloxacin (Levaquin) 750 mg in 150 mls @ 100 mls/hr IV NOW ONE Stop: 10/12/18 19:06 Last Infusion: 10/12/18 18:44 Dose: 100 mls/hr Admin: 10/12/18 17:51 Dose: 100 mls/hr Ketorolac Tromethamine (Toradol) 30 mg IV NOW ONE Stop: 10/12/18 18:31 Last Admin: 10/12/18 18:34 Dose: 30 mg Nitroglycerin (Nitro-Bid) 1 inch TOP NOW ONE Stop: 10/12/18 19:17 Vital Signs - 8 hr 10/12/18 13:52 10/12/18 14:12 10/12/18 15:00 Temperature 100.6 F H 100.6 F H Pulse Rate 112 H 112 H 128 H Respiratory Rate 19 Blood Pressure 169/107 H 169/107 H Blood Pressure [Left Arm] 159/126 H Pulse Oximetry 99 10/12/18 15:12 10/12/18 16:58 10/12/18 17:17 Temperature 100.6 F H 101.5 F H Pulse Rate 121 H 124 H Respiratory Rate 20 24 Blood Pressure Blood Pressure [Left Arm] 160/120 H Pulse Oximetry 100 10/12/18 18:08 10/12/18 18:11 10/12/18 18:36 Temperature 102.1 F H 102.1 F H Pulse Rate 129 H 133 H Respiratory Rate 24 26 H Blood Pressure 167/123 H Blood Pressure [Left Arm] 158/120 H Pulse Oximetry 100 98 10/12/18 19:39 10/12/18 19:43 Temperature 100.0 F H 100.0 F H Pulse Rate 131 H Respiratory Rate 18 Blood Pressure 131/97 H Blood Pressure [Left Arm] Pulse Oximetry 98 MDM - SOB/Dyspnea Lab Data Attestation: I reviewed the patient's lab results. Result diagrams: 10/12/18 16:19 10/12/18 15:51 Lab Results 10/12/18 10/12/18 10/12/18 Range/Units 13:55 15:51 15:51 WBC (4.5-11.0) X10^3/uL RBC (4.5-5.9) X10^6/uL Hgb (13.5-17.5) g/dL Hct (41-53) % MCV (80-100) fL MCH (26-34) PG MCHC (30-36) % RDW (11.6-14.8) % Plt Count (150-400) X10^3/uL Neut % (Auto) (50-75) % Lymph % (Auto) (25-40) % [place] % (Auto) (3-14) % Eos % (Auto) (2-4) % Baso % (Auto) (0-2) % Neut # (Auto) (1741-8199) /uL Lymph # (Auto) (7192-5660) /uL [place] # (Auto) (0-900) /uL Eos # (Auto) (0-450) /uL Baso # (Auto) (0-100) /uL Sodium 138 (137-145) mmol/L Potassium 4.4 (3.4-5.1) mmol/L Chloride 101 (98-107) mmol/L Carbon Dioxide 25 (22-32) mmol/L BUN 10 (9-20) mg/dL Creatinine 0.60 L (0.66-1.25) mg/dL Estimated GFR > 60.0 (>60) mL/min BUN/Creatinine Ratio 16.7 (6-22) Glucose 96 (70-100) mg/dL Lactate (0.7-2.1) mmol/L Calcium 9.2 (8.4-10.2) mg/dL Total Bilirubin 0.9 (0.2-1.3) mg/dL AST 25 (17-59) IU/L ALT 20 L (21-72) IU/L Alkaline Phosphatase 83 (38-126) U/L Total Protein 8.1 (6.3-8.2) g/dL Albumin 4.6 (3.5-5.0) g/dL Globulin 3.5 (1.7-4.1) g/dL Albumin/Globulin Ratio 1.3 (1.0-2.8) Lipase 89 (23-300) U/L Procalcitonin < 0.05 (<0.5) ng/mL Influenza A & B (PCR) Negative (Negative) 10/12/18 10/12/18 Range/Units 15:51 16:19 WBC 11.8 H (4.5-11.0) X10^3/uL RBC 5.12 (4.5-5.9) X10^6/uL Hgb 14.1 (13.5-17.5) g/dL Hct 41.5 (41-53) % MCV 81.0 (80-100) fL MCH 27.6 (26-34) PG MCHC 34.1 (30-36) % RDW 13.6 (11.6-14.8) % Plt Count 259 (150-400) X10^3/uL Neut % (Auto) 76.1 H (50-75) % Lymph % (Auto) 18.0 L (25-40) % [place] % (Auto) 4.0 (3-14) % Eos % (Auto) 1.2 L (2-4) % Baso % (Auto) 0.7 (0-2) % Neut # (Auto) 9000 H (6836-7340) /uL Lymph # (Auto) 2100 (2908-4268) /uL [place] # (Auto) 500 (0-900) /uL Eos # (Auto) 100 (0-450) /uL Baso # (Auto) 100 (0-100) /uL Sodium (137-145) mmol/L Potassium (3.4-5.1) mmol/L Chloride (98-107) mmol/L Carbon Dioxide (22-32) mmol/L BUN (9-20) mg/dL Creatinine (0.66-1.25) mg/dL Estimated GFR (>60) mL/min BUN/Creatinine Ratio (6-22) Glucose (70-100) mg/dL Lactate 1.3 (0.7-2.1) mmol/L Calcium (8.4-10.2) mg/dL Total Bilirubin (0.2-1.3) mg/dL AST (17-59) IU/L ALT (21-72) IU/L Alkaline Phosphatase (38-126) U/L Total Protein (6.3-8.2) g/dL Albumin (3.5-5.0) g/dL Globulin (1.7-4.1) g/dL Albumin/Globulin Ratio (1.0-2.8) Lipase (23-300) U/L Procalcitonin (<0.5) ng/mL Influenza A & B (PCR) (Negative) Urine Dip Bedside Urine Glucose Negative Bedside Urine Bilirubin - Negative Bedside Urine Ketone - Negative Urine Specific [place] 1.020 Bedside Urine Occult Blood - Negative Bedside Urine pH 7.0 Bedside Urine Protein - Negative Bedside Urine Urobilinogen - Negative Bedside Urine Nitrite - Negative Bedside Urine Leukocytes - Negative Esterase Imaging Data Chest x-ray: Radiologist's impression: [address] [address] XRay Report Signed Patient: Jonnie Christopher#: [id number] : 1980Acct:[id number] Age/Sex: 38 / MDate of Service: 10/12/18 Loc: ED Accession Number: [id number] Procedure: XR chest 1V Ordering Provider: Norman Perrin D.O. PROCEDURE: XR CHEST 1V INDICATIONS: SOB TECHNIQUE: One view of the chest was acquired. COMPARISON: [facility], , XR CHEST 1V, 09/17/2018, 17:29. [facility], , CHEST 2 VIEW, 07/06/2016, 13:37. FINDINGS: Surgical changes and devices: None. Lungs and pleura: No pleural effusions or pneumothorax. Lungs are clear. Mediastinum: Mediastinal contours appear normal. Heart size is normal. Bones and chest wall: No suspicious bony lesions. Overlying soft tissues appear unremarkable. IMPRESSION: Normal for age, source of current shortness of breath symptoms is not seen. Dictated by: Gordo Neves M.D. on 10/12/2018 at 15:01 Approved by: Gordo Neves M.D. on 10/12/2018 at 15:01 [facility] Narrative Medical decision making narrative: Patient has no change in his baseline mental status. His mother is at bedside. His presentation today is very similar to when I saw him at the end of last month admitting for pneumonia. Clinically the patient has pneumonia. He is febrile and tachycardic and tachypneic however his chest x-ray shows no infiltrates. Does not have an elevated white blood cell count. Negative lactate. Negative procalcitonin. I do feel given his frail baseline physical status that an inpatient admission for IV antibiotics and suctioning is warranted. I feel that there is a high chance that he would fail home treatment. He was given Levaquin here in the emergency department. He was not given 30 cc/kilos of fluids given the fact that he was not hypotensive and also his baseline medical condition. Discussed the case with Dr. Zamora who was on-call for the patient's primary care doctor group. Dr. Zamora accepted the patient for admission. Discussed admission with the patient and the mother was at bedside. They both expressed understanding and agreement. Discharge Plan Departure Patient Disposition: Admitted As Inpatient Clinical Impression: Pneumonia Discharge Date/Time: 10/12/18 18:44 Interventions: ED Discharge Assessment Last Done: 10/12/18 18:36 Admit Date/Time: 10/12/18 17:43 Admit Provider: Daniel Zamora
[2018-10-12] MEDS: SODIUM CHLORIDE 0.9% 1,000 ML 1000 ML IV (15:27)
[2018-10-12 16:13] LABS: Alanine Aminotransferase 20 IU/L (21-72); Albumin 4.6 g/dL (3.5-5.0); Albumin Globulin Ratio 1.3 (1.0-2.8); Alkaline Phosphatase 83 U/L (38-126); Aspartate Aminotransferase 25 IU/L (17-59); BUN Creatinine Ratio 16.7 (6-22); Bilirubin Total 0.9 mg/dL (0.2-1.3); Blood Urea Nitrogen 10 mg/dL (9-20); Calcium 9.2 mg/dL (8.4-10.2); Carbon Dioxide 25 mmol/L (22-32); Chloride 101 mmol/L (98-107); Estimated Glomerular Filt Rate > 60.0 mL/min (>60); Globulin 3.5 g/dL (1.7-4.1); Glucose 96 mg/dL (70-100); Lactate (Lactic Acid) 1.3 mmol/L (0.7-2.1); Lipase 89 U/L (23-300); Sodium 138 mmol/L (137-145); Total Protein 8.1 g/dL (6.3-8.2)
[2018-10-12 16:22] LABS: HEMOLYSIS 99 (0-50); Potassium 4.4 mmol/L (3.4-5.1)
[2018-10-12 16:23] LABS: Add Manual Diff / Slide Review NO; Basophils Absolute Auto 100 /uL (0-100); Basophils Percent Auto 0.7 % (0-2); Eosinophils Absolute Auto 100 /uL (0-450); Eosinophils Percent Auto 1.2 % (2-4); Hematocrit 41.5 % (41-53); Hemoglobin 14.1 g/dL (13.5-17.5); Lymphocytes Absolute Auto 2100 /uL (1100-4500); Mean Corpuscular HGB Conc 34.1 % (30-36); Mean Corpuscular Hemoglobin 27.6 PG (26-34); Monocytes Absolute Auto 500 /uL (0-900); Neutrophils Absolute Auto 9000 /uL (1500-7000); Neutrophils Percent Auto 76.1 % (50-75); Platelet Count 259 X10^3/uL (150-400); Red Blood Cell Count 5.12 X10^6/uL (4.5-5.9); Red Cell Distribution Width 13.6 % (11.6-14.8); White Blood Cell Count 11.8 X10^3/uL (4.5-11.0)
--- NOTE | 2018-10-12 16:23 | PC.NURSE ---
Moved to another bed for comfort.
[2018-10-12 16:37] LABS: Procalcitonin < 0.05 ng/mL (<0.5)
[2018-10-12] MEDS: ACETAMINOPHEN 650 MG SUPP PR (16:58)
[2018-10-12] MEDS: levoFLOXacin 750 MG/150 ML PIGGYBACK 100 MG IV (17:51)
[2018-10-12] MEDS: KETOROLAC 60 MG/2 ML VIAL 30 MG IV (18:34)
[2018-10-12 19:43] LABS: Influenza A and B by PCR Rapid Negative (Negative)
[2018-10-12] MEDS: DEXTROSE 5%-0.9% NS 1,000 ML 125 ML IV (20:08)
[2018-10-12] MEDS: NITROGLYCERIN OINT 1 INCH/GM OINT...G. TOP (20:10)
[2018-10-12] MEDS: LATANOPROST 0.005% OPHTH 2.5 ML 1 DROPS EYE-BOTH (20:12)
--- NOTE | 2018-10-12 22:19 | PC.NURSE ---
patient up to floor from ED at around 1900, patient has difficulty swallowing (as demonstrated and also stated by patient) and clearing secretions. RT has been up to assist patient several times to suction his airway. Green mucus is observed to be coming out of pt's nares. O2 sat is 100% on RA. Patient has been incontinent of bowel and bladder, pt's mother states this is not baseline. Mother also states it is not baseline for patient to have difficulty speaking/swallowing. BP has been elevated at 140's systolic, and HR has been >100 bpm. lung sounds are coarse, heart sounds are regular (just tachy), and bowel tones are present. Mother is the POA. Patient denies any pain. Flu swab came back negative. Patient is baseline contracted in his legs. Sensitive call button has been implemented for pt's use and he has demonstrated he can use it appropriately thus far. Patient's mother states he has fallen out of his motorized w/c at home within last 3 months. Will continue to monitor.
[2018-10-13] VITALS (17 sets, daily range): BP systolic 123–157; BP diastolic 75–107; PULSE 80–129; RESP 20–30; TEMP 36.7–38.9; O2SAT 95–100
--- NOTE | 2018-10-13 | DI.RAD.S_ITS ---
PROCEDURE: XR SOFT TISSUE NECK INDICATIONS: sore throat, dysphagia TECHNIQUE: 2 views of the neck were acquired. COMPARISON: None. FINDINGS: Airway: The visualized airway appears patent. Soft tissues: Prevertebral soft tissues are normal in thickness with minimal prominence of the lower cervical spine that is favored to be secondary to patient positioning. The epiglottis and aryepiglottic folds do not appear thickened. No soft tissue gas. Visualized lung apices appear clear. Bones: No suspicious bony lesions. Visualized cervical spine is normally aligned. IMPRESSION: No radiographic evidence of epiglottitis. No acute radiographic abnormalities. Minimal prominence of the prevertebral soft tissues of the lower cervical spine is favored to be secondary to patient positioning. Dictated by: Mane Abbott M.D. on 10/13/2018 at 15:25 Approved by: Mane Abbott M.D. on 10/13/2018 at 15:30
[2018-10-13] MEDS: ACETAMINOPHEN 650 MG SUPP PR (00:41)
[2018-10-13] MEDS: DEXTROSE 5%-0.9% NS 1,000 ML 125 ML IV ×3 (04:16→20:55)
--- NOTE | 2018-10-13 05:22 | PC.NURSE ---
Pt A&O, 98-100%RA. LS: coarse, crackles, expiratory wheezes. Pt unable to cough and has difficulty clearing secretion. He is also not comfortable swallowing. Pt temp 102.1, HR and BP elevated as well, MD aware, VTO for IA tylenol. Bed mobility 2-PA. incontinent. call light in reach.
--- NOTE | 2018-10-13 08:06 | P.HP_ITS ---
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 He was treated for pneumonia the end of August/beginning of September with complete resolution of symptoms. He continues to live independently at home with significant help from family. This morning patient is unaccompanied and quite difficult to understand. At baseline speech is somewhat difficult. Denies pain or shortness of breath. Complains of sore throat and nasal congestion. He has refused oral medications because he does not feel he can swallow very well secondary to sore throat. In the emergency department yesterday labs were remarkable for a slightly elevated white count, otherwise reassuring. Normal procalcitonin and lactate. Chest x-ray did not show focal pneumonia however given patient's clinical picture he was started on levofloxacin. Negative for influenza. Patient History Medical History Depression (Chronic) Glioma (Chronic) Hemiparesis (Chronic ~1984) Family & Social History Family History: Reviewed 10/13/18 by Nargis Fernandez DO Social History: household members family,caregiver,none Prior Living Arrangements Apartment/Condo Safety & Behavioral: Feels Safe in Current Yes Environment Been Physically Hurt or No Threatened By a Person Suicidal Ideation Description None Suicide Plan Description No Plan Tobacco & Substance use: Smoking Status Former smoker alcohol intake never Substance Use Type marijuana Meds Home Medications Medication Instructions Recorded Confirmed Type fluoxetine 20 mg capsule 20 mg PO QDAY #90 cap 02/06/18 10/12/18 Rx Battery Powered Lift #1 ea 03/02/18 10/12/18 Rx miscellaneous medical supply misc #1 each 03/21/18 10/12/18 Rx bariatric hospital bed #1 ea 06/07/18 10/12/18 Rx latanoprost 1 drp EYE-BOTH BEDTIME 09/18/18 10/12/18 History Power Chair #1 ea 10/10/18 10/12/18 Rx baclofen 5 mg PO TID 10/12/18 10/12/18 History Allergies Allergy/AdvReac Type Severity Reaction Status Date / Time Penicillins [PENICILLINS] Allergy Severe RASH Verified 09/17/18 19:34 Review of Systems Constitutional Constitutional: Reports fatigue and Reports fever(s) ENT Ears, Nose, Mouth, and Throat: Yes difficulty swallowing, No ear pain, Yes nasal congestion, Yes nasal discharge, Yes sinus pressure and Yes sore throat Cardiovascular Cardiovascular: Denies shortness of breath Respiratory Respiratory: Reports cough, Denies dyspnea and Denies wheezing Gastrointestinal Gastrointestinal: Reports dysphagia Endocrine Endocrine: Reports fatigue Allergic/Immunologic Allergic/Immunologic: Denies wheezing Exam Vital Signs (past 8 hours): - 10/13/18 00:15 10/13/18 00:41 10/13/18 01:37 Temperature 102.1 F H 102.1 F H Pulse Rate 124 H 118 H Respiratory Rate 24 20 Blood Pressure 157/105 H Pulse Oximetry 98 10/13/18 02:00 10/13/18 03:09 10/13/18 05:02 Temperature 101 F H 98.9 F 98.1 F Pulse Rate 114 H 116 H Respiratory Rate 20 20 Blood Pressure 143/95 H 147/101 H Pulse Oximetry 98 99 10/13/18 07:02 Temperature Pulse Rate 118 H Respiratory Rate Blood Pressure 147/102 H Pulse Oximetry Oxygen Delivery Method Room Air Oxygen Flow Rate 0 Narrative Exam Narrative: General appearance: Developmentally delayed obese young man resting in bed. Appears uncomfortable. Head: Normocephalic, atraumatic, without obvious abnormality. Eyes: Conjunctivae/corneas clear. PERRL, EOM's intact. Ears: TM's intact and external ear canals normal bilaterally. Nose: Nasal turbinates are edematous. Moderate amount nasal discharge. Throat: Limited exam of throat secondary to positioning tongue to posterior pharynx. Significant amount of mucus on patient's palate and teeth. Neck: No adenopathy, supple, symmetric, trachea midline. Lungs: Rhonchi bilateral lung matthew. No crackles or wheezes. Heart: Regular rate and rhythm, S1, S2 normal, no murmur. Abdomen: Soft, non-tender; bowel sounds normal; no masses, no organomegaly. Extremities: Lower extremities normal, atraumatic, no edema. Neurologic: Right hemiparesis. Speech is dysarthric and quite difficult to understand. Patient visibly frustrated by difficulty communicating. Objective Labs Result Diagrams: 10/13/18 08:40 10/13/18 08:40 Labs: Laboratory Results - last 24 hr 10/12/18 10/12/18 10/12/18 13:55 15:51 15:51 WBC RBC Hgb Hct MCV MCH MCHC RDW Plt Count Neut % (Auto) Lymph % (Auto) Glades % (Auto) Eos % (Auto) Baso % (Auto) Neut # (Auto) Lymph # (Auto) Glades # (Auto) Eos # (Auto) Baso # (Auto) Sodium 138 Potassium 4.4 Chloride 101 Carbon Dioxide 25 BUN 10 Creatinine 0.60 L Estimated GFR > 60.0 BUN/Creatinine Ratio 16.7 Glucose 96 Lactate Calcium 9.2 Total Bilirubin 0.9 AST 25 ALT 20 L Alkaline Phosphatase 83 Total Protein 8.1 Albumin 4.6 Globulin 3.5 Albumin/Globulin Ratio 1.3 Lipase 89 Procalcitonin < 0.05 Influenza A & B (PCR) Negative 10/12/18 10/12/18 15:51 16:19 WBC 11.8 H RBC 5.12 Hgb 14.1 Hct 41.5 MCV 81.0 MCH 27.6 MCHC 34.1 RDW 13.6 Plt Count 259 Neut % (Auto) 76.1 H Lymph % (Auto) 18.0 L Glades % (Auto) 4.0 Eos % (Auto) 1.2 L Baso % (Auto) 0.7 Neut # (Auto) 9000 H Lymph # (Auto) 2100 Glades # (Auto) 500 Eos # (Auto) 100 Baso # (Auto) 100 Sodium Potassium Chloride Carbon Dioxide BUN Creatinine Estimated GFR BUN/Creatinine Ratio Glucose Lactate 1.3 Calcium Total Bilirubin AST ALT Alkaline Phosphatase Total Protein Albumin Globulin Albumin/Globulin Ratio Lipase Procalcitonin Influenza A & B (PCR) Assessment & Plan (1) Pneumonia: Qualifiers: Aspiration pneumonia type: Laterality: unspecified laterality Lung location: unspecified part of lung Pneumonia type: due to unspecified organism Qualified Code(s): J18.9 - Pneumonia, unspecified organism Current visit: Yes Status: Acute (2) Nasal congestion: Current visit: Yes Status: Acute (3) Moderate developmental delay: Current visit: No Status: None (4) Hemiparesis: Problem details: Secondary to glioma status post radiation Qualifiers: Hemiparesis etiology: non-cerebrovascular etiology Cerebrovascular disease type: Hemiparesis laterality: right dominant side Qualified Code(s): G81.91 - Hemiplegia, unspecified affecting right dominant side Current visit: No Status: None (5) History of glioma: Current visit: No Status: Chronic (6) Essential hypertension: Current visit: Yes Status: Deleted (7) Hypertension: Current visit: Yes Status: Acute (8) Tachycardia: Current visit: Yes Status: Acute (9) Dysarthria: Current visit: Yes Status: Acute (10) Dysphagia: Current visit: Yes Status: Acute Plan: Assessment/Plan Narrative: 38-year-old male developmental delay and 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 He did not meet sepsis criteria on admission. Chest x-ray was clear however symptoms have only been present about 24 hr. He also has significant nasal congestion and mucus production which appears to be affecting his speech. Respiratory infection, possible pneumonia: Sputum culture is pending. Given the extent of his nasal congestion, will check a respiratory viral panel. Continue levofloxacin for possible pneumonia however will discontinue if viral PCR returns positive. Will give Mucinex to help with congestion. Hypertension: Blood pressure has been persistently elevated, likely due to acute illness and anxiety. Patient does not have a history of hypertension. Will continue to monitor and consider treatment if indicated. The same is true for tachycardia. Hemiparesis: Patient has not received is usually baclofen due to difficulty swallowing. Ordered diazepam for spasm and anxiety however there is a shortage. Will try a small amount of lorazepam. Dysarthria, dysphagia: Will ask speech therapy to see him. During his last hospitalization he had difficulty with speech which resolved as he improved clinically. Speech appears to be affected by the extent of his congestion and mucus production. Diet: NPO until seen by speech DVT prophylaxis: SCDs and Lovenox Code status: Full code. Disposition: Anticipate he will remain in the hospital at least 2 midnights well awaiting culture results and receiving IV antibiotics. Since this is his second admission in less than a month, intermediate on discharge is likely the most appropriate plan.
[2018-10-13 08:57] LABS: Add Manual Diff / Slide Review NO; Basophils Absolute Auto 0 /uL (0-100); Basophils Percent Auto 0.5 % (0-2); Eosinophils Absolute Auto 0 /uL (0-450); Hemoglobin 13.8 g/dL (13.5-17.5); Lymphocytes Absolute Auto 1400 /uL (1100-4500); Lymphocytes Percent Auto 12.5 % (25-40); Mean Corpuscular HGB Conc 34.6 % (30-36); Mean Corpuscular Volume 80.9 fL (80-100); Monocytes Absolute Auto 500 /uL (0-900); Monocytes Percent Auto 4.8 % (3-14); Neutrophils Absolute Auto 8900 /uL (1500-7000); Neutrophils Percent Auto 82.2 % (50-75); Platelet Count 248 X10^3/uL (150-400); Red Blood Cell Count 4.95 X10^6/uL (4.5-5.9); Red Cell Distribution Width 13.3 % (11.6-14.8); White Blood Cell Count 10.8 X10^3/uL (4.5-11.0)
[2018-10-13 09:11] LABS: BUN Creatinine Ratio 13.3 (6-22); Blood Urea Nitrogen 8 mg/dL (9-20); Calcium 9.2 mg/dL (8.4-10.2); Carbon Dioxide 23 mmol/L (22-32); Chloride 99 mmol/L (98-107); Estimated Glomerular Filt Rate > 60.0 mL/min (>60); Glucose 105 mg/dL (70-100); HEMOLYSIS < 15 (0-50); Potassium 4.1 mmol/L (3.4-5.1); Sodium 135 mmol/L (137-145)
[2018-10-13] MEDS: ENOXAPARIN 40 MG/0.4 ML SYRINGE SUBCUT (10:41)
[2018-10-13] MEDS: LORazepam 2 MG/ML SYRINGE 0.5 MG IV (10:41)
[2018-10-13 10:43] LABS: Strep Grp A by PCR Rapid Negative
[2018-10-13 11:19] LABS: Adenovirus Not Detected (Not Detect); Bordetella pertussis Not Detected (Not Detect); Chlamydophila pneumoniae Not Detected (Not Detect); Coronavirus 229E Not Detected (Not Detect); Coronavirus HKU1 Not Detected (Not Detect); Coronavirus NL 63 Not Detected (Not Detect); Coronavirus OC43 Not Detected (Not Detect); Human Metapneumovirus Not Detected (Not Detect); Human Rhinovirus/Enterovirus Not Detected (Not Detect); Influenza A Not Detected (Not Detect); Influenza B Not Detected (Not Detect); Mycoplasma pneumoniae Not Detected (Not Detect); Parainfluenza Virus 1 Not Detected (Not Detect); Parainfluenza Virus 2 Not Detected (Not Detect); Parainfluenza Virus 3 Not Detected (Not Detect); Parainfluenza Virus 4 Not Detected (Not Detect); Respiratory Syncytial Virus Not Detected (Not Detect)
--- NOTE | 2018-10-13 12:51 | PT.IIE ---
Medical History (Last Reviewed 10/05/18 @ 10:52 by Nargis Fernandez DO) Depression (Chronic) Glioma (Chronic) Hemiparesis (Chronic ~1984) Physical Therapy Inpatient Evaluation/Re-Eval M1 PT/OT-IP Prior Functional Status Start: 10/13/18 12:20 Freq: NEEDED Status: Active Protocol: Document 10/13/18 10:10 HH (Rec: 10/13/18 12:51 [email or web address]) Medical Review Prior Functional Status Medical History Reviewed Yes Diet/Fluid Consistency NPO Communication Pt is able to follow simple command but have difficulty in verbal expression. Slow speech overall. 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 Pt 's mother Marianela comes to his house everyday to check on pt as well. Social History Household Members family caregiver none Living Arrangements Apartment/Condo Number of Stairs To Enter/Railing? Pt is unable to provide information. will update when pt's mother back to bedside again tomorrow. Home Equipment Manual Wheelchair Power Wheelchair/Scooter Mechanical Lift Hospital Bed Employment Status Unemployed Additional Social History Comment SW's report shows pt lives alone in an apartment in [place] but has [facility] CG a few hours every day for assist . Pt's mother comes every day to check on the pt as well. Pt uses a lift, hospital bed, and power / manual w/c at home and needs assist with transfers. [facility] Pt has been attending outpatient aquatic PT based on ROBIN report. Per SPECIALTY SALES REPRESENTATIVE , pt has been standing up with assist during aquatic therapy . M2 PT-IP Current Condition Start: 10/13/18 12:20 Freq: NEEDED Status: Active Protocol: Document 10/13/18 10:10 HH (Rec: 10/13/18 12:51 [email or web address]) Physical Therapy Current Condition Current Condition Evaluation Date 10/13/18 Treatment Diagnosis SOB, dypnea, generalized muscle weakness Onset Date 10/12/18 M3 PT-IP Subjective Start: 10/13/18 12:20 Freq: NEEDED Status: Active Protocol: Document 10/13/18 10:10 HH (Rec: 10/13/18 12:51 [email or web address]) Subjective Physical Therapy Visit Type Type Initial Evaluation Visit Start Time 10:10 Visit Stop Time 10:45 Total Visit Minutes 35 Notes Pt agreeable to mobilize with PT to get EOB with SPECIALTY SALES REPRESENTATIVE Marizol. Number of SPECIALTY SALES REPRESENTATIVE Visits 0 Physical Therapy Visit Comments Patient Comments Pt nodded his head when asked are you feeling better today. Patient Goals To return home and his mother Therapy Pain Assessment Pain Present Pain Present Denied Pain M4 PT-IP Mobility and Gait Start: 10/13/18 12:20 Freq: NEEDED Status: Active Protocol: Document 10/13/18 10:10 (Rec: 10/13/18 12:51 [email or web address]) PT-Bed Mobility Assessment Supine to Sit Supine to Sit 2 Person Assistance Sit to Supine Sit to Supine Total Assistance 2 Person Assistance Scooting Scooting to Edge of Bed Dependent Scooting Up and Down in Bed Dependent PT-Transfer Assessment Comments Mobility Comments Pt requires max A x 2 for supine to sit and rolling today. Pt presents significant extensor tone for B LEs. Pt sat EOB but required max A x 2 to bend his knees in order to reach the floor for support. He also demonstrates significant retropulsion upon sitting. Pt also presents SOB when bed is falttened and he states he has trouble breathing in that position. Pt was put to elevated 50 degrees and call light within reach. Did not attempt sit to stand tdue to inadequate extremity and trunk control. Gait Assessment Comments Gait Comments Did not attempt tdue to inadequate extremity and trunk .control Stair Climbing Assessment Comments Stair Climbing Comments Did not attempt tdue to inadequate extremity and trunk .control PT-Balance Assessment Sitting Balance and Reactions Static Sitting Balance Ability Poor Dynamic Sitting Balance Ability Poor Standing Balance and Reactions Static Standing Balance Ability Poor Dynamic Standing Balance Ability Poor M5 PT-IP Objective Assessments Start: 10/13/18 12:20 Freq: NEEDED Status: Active Protocol: Document 10/13/18 10:10 HH (Rec: 10/13/18 12:51 [email or web address]) Orientation Orientation/Cognition Level of Alertness Alert Language Function Ability Word Finding Difficulties Safety Awareness Decreased Safety Awareness Comments Pt is able follow commands but have difficulty communicating through words due to his prior neurological issues at baseline. Gross Range of Motion Upper Extremity ROM Assessment Bilaterally Impaired Impairments Pt only has slight wrist and finger movements on his R UE, but he is able to make a grinder set up operator gear tool with his L hand and slight elbow flexion. Lower Extremity ROM Assessment Bilaterally Impaired Impairments Significant extensor tone with clonus Strength Upper Extremity Strength Assessment Bilaterally Impaired Lower Extremity Strength Assessment Bilaterally Impaired Comments Strength Comments Pt only has slight wrist and finger movements on his R UE, but he is able to make a grinder set up operator gear tool with his L hand and slight elbow flexion. No movements noted with BLEs and presents significant extensor tone with clonus Coordination Assessment Gross Coordination Gross Coordination Impaired Sensation Assessment Comments Sensation Comments Unable to obtain due to speech and cognitive impairments Muscle Tone Muscle Tone WNL No Muscle Tone Location Bilateral Upper Extremity Type of Tone Hypotonicity Severity of Tone Severe Bilateral Lower Extremity Type of Tone Extensor Clonus Severity of Tone Severe Comments Muscle Tone Comments Pt only has slight wrist and finger movements on his R UE ( mostly paralysis on R UE), but he is able to make a grinder set up operator gear tool with his L hand and slight elbow flexion. No movements noted with BLEs and presents significant extensor tone with clonus M7 PT-IP Assessment and Plan Start: 10/13/18 12:20 Freq: NEEDED Status: Active Protocol: Document 10/13/18 10:10 (Rec: 10/13/18 12:51 [email or web address]) PT Summary Assessment and Plan Potential Rehabilitation Potential Poor Status of Condition at Evaluation Unstable Summary Impairments ROM Strength Balance Cognition Bed Mobility Transfers Gait Activity Tolerance Assessment Summary Pt is a 38 yo male who was readmitted to on 10/12/18 for SOB and dyspnea. Pt was admitted on 09/17/18 for a few days for acute PNA. Pt has neurological issues at baseline (brain tumor) and requires max A/ total assist from CG who is w/c and bed bound at home. Pt lives alone but has CG come in 3-4hrs a day and his mom usually stops by to check him. Upon assessment, Pt sounds very congested and experienced SOB and difficulty in breathing when his bed is flattened. pt requires Max A x 2 for bed mobility and pt presents significant extensor tone to both B LEs. Per RN Leanna, pt is not on [place] at this point. In my professional opinion, recommend pt to be d/ c to SNF which provides extensive physical and medical assistance for his basic needs, which reduces his chance of getting PNA or other complications. Goals Bed Mobility Goal Maximal Assistance Transfer Goal Maximal Assistance Gait Goal Maximal Assistance Days to Meet Goals 10 Frequency of Treatment Frequency Of Treatment Once a Day Treatment Plan Physical Therapy Treatment Plan Bed Mobility Training Transfer Training Balance Retraining Discharge Planning Other Recommendations and Next Treatment bed mob and transfer training Focus as natalya chest pt if needed Recommendations To Nursing Amount of Assist Needed Total Assistance Discharge Recommendations PT Discharge Recommendations SNF Rehab
--- NOTE | 2018-10-13 13:15 | ST.IPCSEOM ---
Care Team Visit Care Team Role Provider Type Norman Perrin DO Emergency Provider Physician Specialty: Emergency Medicine Address: [address] [place] [id number] Email: Nargis Fernandez DO Attending Provider Physician Primary Care Provider Specialty: Family Practice Address: [address] [place] [address] Email: [email or web address] Daniel Zamora MD Admit Provider Physician Other Providers Specialty: Internal Medicine Address: [address] [place] [address], [id number] Email: [email or web address] Current Diagnoses Hemiplegia, unspecified affecting right dominant side (10/12/18) Essential (primary) hypertension (10/12/18) Pneumonia, unspecified organism (10/12/18) Tachycardia, unspecified (10/12/18) Nasal congestion (10/12/18) Dysphagia, unspecified (10/12/18) Dysarthria and anarthria (10/12/18) Unspecified lack of expected normal physiological development in childhood (10/12/18) Personal history of other specified conditions (10/12/18) Past Medical History (Last Reviewed 10/13/18 @ 12:58 by Nargis Fernandez DO) Depression (Chronic Medical) Glioma (Chronic Medical) 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 Fernandez Reason for Referral dysphagia Setting Assessment Location Acute Care Visit Type Note Type Initial Evaluation Next Note Type Next Note Type Re-Evaluation Patient Information Identification Type Name ID Wristband History Medical History (Reviewed @ 12:58 by Nargis Fernandez DO) Depression (Chronic) Glioma (Chronic) Hemiparesis (Chronic ~1985) Family & Social History Family History: Reviewed 10/13 by Nargis Fernandez DO Social History: household members family,caregiver,none Prior Living Arrangements Apartment/Condo Safety & Behavioral: Feels Safe in Current Yes Environment Been Physically Hurt or No Threatened By a Person Suicidal Ideation Description None Suicide Plan Description No Plan Tobacco & Substance use: Smoking Status Former smoker alcohol intake never Substance Use Type marijuana Subjective Observations Jonnie was in bed in his room. His mother was present. Evaluation Liquids Trialed Ice Chips Oral Phase Comments Jonnie presented with severe dysarthria and minimal ability to move oral structures. Suction had been provided as needed. Pt mouth-breaths, which dries pt's oral cavity. Pharyngeal Impairment Severely Impaired Pharyngeal Phase Comments Swallowing was assessed bedside. Ice chips were trialed via spoon. Pt had been repositoined to 90 degrees fully upright in bed. ptdemonstrated diminished ccordination and strength of becky-pharyngeal structures with a significantly delayed swallow reflex. Once the swallow was triggered ( following several tongue pumps ) the excursion of the hyolaryngeal structures was adequate. Immediate choking with water spit out for both trials. Suction was performed after each trial. Findings Impressions Severe oropharyngeal dysphagia . Swallow eval was terminated after the pt's second attempt with ice. Diet Recommendations Liquids Order NPO Diet Order NPO Comments Re-evaluation of swallow bedside prn. MBS recommended Aspiration Precautions Additional Precautions HOB upright at 30-50 degrees when in bed at all times Treatment Plan Therapy Recommendations Recommend repeat clinical swallow evaluation over the next two days as pt improves. MBS study on Tuesday10/16/18 if pt able to tolerate. REC THERAPIST Follow Up as indicated
--- NOTE | 2018-10-13 15:30 | RT ---
Pt. having significant upper airway snoring vs. stridor with RR 30, HR 126. spo2 98-100% room air. Pt. unable to cough on command and at high risk for swallowing and aspiration. Order for sputum sample. Attempted NT suction with resultant worsening of stridor that resolved after several minutes. Mild bloody trauma to each nare that resolved quickly. Unable to pass catheter through either nare effectively. Unable to stimulate cough. Spoke with RN and RN silverware supervisor.Called Dr. Fernandez and reported the issues. Lateral neck xrays ordered to evaluate for issues like epiglottis, severe croup, airway swelling. Met with radiologist. Epiglottis didn't appear swollen. Explained procedures and issues to pt. throughout this process. Considering cool aerosol.
--- NOTE | 2018-10-13 15:40 | CM.DANOTE ---
Patient is a 38 year old male who was admitted on 10/12/18 for SOB. Pt has MEDICAID for insurance and his PCP is Dr. Fernandez. EMR was reviewed. Per MD, pt has neurological issues at baseline and likely has pneumonia and not stable for d/c yet today. Per RN, pt seems to be well cared for and no current wounds but currently difficult to understand due to his congestion and swallow issues, seems alert and oriented but sleeping soundly. SW spoke to pt's mother Marianela and explained role and she confirmed that the pt lives in an apartment in [place] alone but has SHAUN DASH a few hours every day for assist through [facility] and that she comes every day to check on the pt as well. Pt has a lift at home that does not fit the pt and still waiting on hospital bed through Medicaid and w/c at home and needs assist with transfers. Mom denies that pt has ever been to SNF but last discharged from [facility] on 09/20/18 with Vivi VELASQUEZ. Mom is pt's DPOA and SW requested she try to bring in a copy for pt's file and she was agreeable. Mom plans to follow up with pt's SHAUN PERAZA to discuss possibly increasing his caregiving hours with his caregiver. SW called Vivi VELASQUEZ and confirmed that the pt is open to services with them and they will need Resume Orders at d/c if he is safe for discharge home. Pt's SHAUN CM is Steph Harris and SW to fax H&P and d/c summary at discharge for her to review. Per PT, currently recommending SNF at d/c and SW to review pt's previous [facility] stay to determine if SNF placement was a barrier due to his Medicaid insurance. Plan: SW to follow closely for further PT/OT and pt's progress to determine SNF vs return home with Resume Vivi VELASQUEZ. ARIC Ca Discharge Planning/Care Management Advanced directive, confirm from FAMILY Start: 10/12/18 19:34 Freq: Q24H Status: Active Protocol: Document 10/12/18 19:34 BKR (Rec: 10/12/18 19:55 BKR [id number]) Advance Directive, confirm on record Time 19:55 Person contacted mother Copy received No Advanced directive available on record No CM Discharge Assessment Start: 10/13/18 10:47 Freq: Status: Active Protocol: Document 10/13/18 15:37 BF (Rec: 10/13/18 15:40 BF [id number]) Discharge Planning Assessment Assigned Store Worker ARIC Collier/Assigned Designee Name mother Marianela Paulino Contact Information [phone] Advance Directives? No: POA Advance Directives on File No History Provided By Patient Parents Medical Record Has Patient been admitted in last 30 Yes days? Comment Last d/c on Sep 20 2018 home with HH Prior Living Arrangements Apartment/Condo Household Members family caregiver none Type of transporation used prior to Relies on Others admit Comment Lives in apt alone with daily caregivers and supportive mother stops by Independent with ADL's No Is patient alert and oriented? 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 # of Store Worker Review Status In Process Please Provide Date Initial DC 10/13/18 Assessment Was Performed Next Review Type Continued Stay Review
[2018-10-13] MEDS: METOPROLOL TARTRATE 5 MG/5 ML INJ IV ×2 (15:43→20:56)
--- NOTE | 2018-10-13 15:51 | PC.NURSE ---
Resp: Pt reports he can't swallow, throat is to sore. Unable to give meds. Lots of nasal discharge - grn colored. Very weak cough and to weak to blow his nose. Heart rate 120-130's all day and bp has been elevated, gaye the diastolic. MD is aware of hr, bp, and resp status. RT tried to suction pt for sputum spec, they were unable to obtained and pt got a bloody nose. ST saw, pt was unable to swallow for them, fluid coming back out through his nose, unable to swallow. he is now completely npo and oral meds not given this afternoon. Likes hob elevated all the time. Has difficulty speaking and this is not usual for him. Has diff handling his secretions and this is also unusual for him. makes loud snoring type sounds, this is not how he is at home. was called and made aware and she will come and see pt tonight after office hours. Pt is fragile, feels weak and tired. Got a dose of ativan since he is unable to take his baclofen, pt reports med was helpful. Knows he can have more if he needs it. RT has been in several times to see pt and they have spoken w/MD once on the phone to see if there was more that could be done for him. MD will eval this ansley. Cont w/poc.
[2018-10-13] MEDS: CEFTRIAXONE 2 GM/50 ML FROZ.PIGGY IV (15:52)
[2018-10-13] MEDS: VANCOMYCIN 1,500 MG in SODIUM CHLORIDE 0.9% 500 ML 333.333 ML IV (16:26)
[2018-10-13] MEDS: methylPREDNISolone 125 MG/2 ML VIAL 60 MG IV ×2 (19:21→23:48)
[2018-10-13] MEDS: FLUTICASONE 120 SPRAY/16 GM SPRAY.SUSP NASAL (20:55)
[2018-10-13] MEDS: LATANOPROST 0.005% OPHTH 2.5 ML 1 DROPS EYE-BOTH (20:56)
--- NOTE | 2018-10-13 21:49 | PC.NURSE ---
chart on wrong intervetion Bev
--- NOTE | 2018-10-13 22:42 | PC.NURSE ---
ansley ferguson pt brought from acute care to ICU for closer monitoring and frequent suctioning. Bloody mucous from nose. Pt unable to blow nose or to cough on command. Frequent oral suction done, but pt still with mostly snoring respirations. Cool mist mask on intermittently. O2 sats 97% on RA. Lungs has upper airway rhonchi. Pt mostly incontinent of urine. Pt's speech is difficutl to understand, but clearing as shift progresses.
[2018-10-13] MEDS: VANCOMYCIN 1,500 MG in SODIUM CHLORIDE 0.9% 500 ML 333 ML IV (23:46)
[2018-10-14] VITALS (8 sets, daily range): BP systolic 123–138; BP diastolic 72–85; PULSE 93–112; RESP 16–20; TEMP 36.8–37.2; O2SAT 94–98
[2018-10-14] MEDS: METOPROLOL TARTRATE 5 MG/5 ML INJ IV ×2 (02:10→08:47)
[2018-10-14] MEDS: methylPREDNISolone 125 MG/2 ML VIAL 60 MG IV ×3 (05:45→23:39)
[2018-10-14 07:05] LABS: Add Manual Diff / Slide Review NO; Basophils Absolute Auto 0 /uL (0-100); Basophils Percent Auto 0.1 % (0-2); Eosinophils Absolute Auto 0 /uL (0-450); Eosinophils Percent Auto 0.1 % (2-4); Hematocrit 42.1 % (41-53); Hemoglobin 14.4 g/dL (13.5-17.5); Lymphocytes Absolute Auto 1600 /uL (1100-4500); Lymphocytes Percent Auto 13.6 % (25-40); Mean Corpuscular HGB Conc 34.3 % (30-36); Mean Corpuscular Hemoglobin 27.6 PG (26-34); Mean Corpuscular Volume 80.4 fL (80-100); Monocytes Absolute Auto 200 /uL (0-900); Monocytes Percent Auto 1.4 % (3-14); Neutrophils Absolute Auto 9600 /uL (1500-7000); Neutrophils Percent Auto 84.8 % (50-75); Platelet Count 321 X10^3/uL (150-400); Red Blood Cell Count 5.24 X10^6/uL (4.5-5.9); Red Cell Distribution Width 13.5 % (11.6-14.8); White Blood Cell Count 11.4 X10^3/uL (4.5-11.0)
[2018-10-14 07:07] LABS: Blood Urea Nitrogen 9 mg/dL (9-20); Calcium 9.5 mg/dL (8.4-10.2); Carbon Dioxide 21 mmol/L (22-32); Chloride 104 mmol/L (98-107); Estimated Glomerular Filt Rate > 60.0 mL/min (>60); Glucose 182 mg/dL (70-100); HEMOLYSIS < 15 (0-50); Potassium 3.6 mmol/L (3.4-5.1); Sodium 138 mmol/L (137-145)
[2018-10-14] MEDS: ENOXAPARIN 40 MG/0.4 ML SYRINGE SUBCUT (08:47)
[2018-10-14] MEDS: VANCOMYCIN 1,500 MG in SODIUM CHLORIDE 0.9% 500 ML 333 ML IV ×3 (08:57→23:36)
--- NOTE | 2018-10-14 09:21 | P.PN_ITS ---
Subjective Date Patient Seen: 10/14/18 Time Patient Seen: 09:13 Interval history: Improved from yesterday. Says he is in no pain, headache has resolved, has no dysphagia, no SOB, but still congestion. Continues to ask for water. Speaking has improved, less distressed. Exam Vital Signs (past 8 hours): - 10/14/18 05:19 10/14/18 07:51 10/14/18 08:00 Temperature 98.7 F 98.6 F Pulse Rate 112 H 96 H Respiratory Rate 18 18 Blood Pressure 123/85 133/83 Pulse Oximetry 97 97 98 Oxygen Delivery Method Room Air Oxygen Flow Rate 0 Narrative Exam Narrative: Sitting in bed, NAD, mouth open, breathing quieter than yesterday Head: NCAT Eyes: EOMI, PERRLA ENT: mouth open at rest but less so than yesterday, improved tongue swelling, uvula midline and not significantly enlarged, tongue deviates right, no significant erythema in oropharynx. No cervical lymphadenopathy or tenderness on neck exam Chest: symmetric expansion Heart: RRR but no murmurs Lungs: Upper airway rhonchi, no focal crackles, wheezing. Moderate respiratory effort. Poor cough. Abdomen: Soft, nondistended, nontender Extrem: slightly cool and clammy legs but no tenderness, swelling, pulses intact Neuro: Awake and alert, speaking clearer than yesterday in full sentences, following commands, moving left side of body Objective Labs Result Diagrams: 10/14/18 06:40 10/14/18 06:40 Labs: Laboratory Results - last 24 hr 10/13/18 10/13/18 10/13/18 08:40 09:50 09:50 WBC RBC Hgb Hct MCV MCH MCHC RDW Plt Count Neut % (Auto) Lymph % (Auto) [place] % (Auto) Eos % (Auto) Baso % (Auto) Neut # (Auto) Lymph # (Auto) [place] # (Auto) Eos # (Auto) Baso # (Auto) Sodium 135 L Potassium 4.1 Chloride 99 Carbon Dioxide 23 BUN 8 L Creatinine 0.60 L Estimated GFR > 60.0 BUN/Creatinine Ratio 13.3 Glucose 105 H Calcium 9.2 Nasal Screen MRSA (PCR) Chlamy pneumoniae PCR Not detected Adenovirus (PCR) Not detected B.parapertussis DNA PCR Not detected Coronavirus OC43 (PCR) Not detected Coronavirus HKU1 (PCR) Not detected Coronavirus 229E (PCR) Not detected Coronavirus NL63 (PCR) Not detected Human Metapneumovir PCR Not detected Influenza Type A (PCR) Not detected Influenza Type B (PCR) Not detected M. pneumoniae (PCR) Not detected Parainfluenza 1 (PCR) Not detected Parainfluenza 2 (PCR) Not detected Parainfluenza 3 (PCR) Not detected Parainfluenza 4 (PCR) Not detected RSV (PCR) Not detected Entero/Rhino (PCR) Not detected Group A Strep (PCR) Negative 10/13/18 10/14/18 10/14/18 20:05 06:40 06:40 WBC 11.4 H RBC 5.24 Hgb 14.4 Hct 42.1 MCV 80.4 MCH 27.6 MCHC 34.3 RDW 13.5 Plt Count 321 Neut % (Auto) 84.8 H Lymph % (Auto) 13.6 L [place] % (Auto) 1.4 L Eos % (Auto) 0.1 L Baso % (Auto) 0.1 Neut # (Auto) 9600 H Lymph # (Auto) 1600 [place] # (Auto) 200 Eos # (Auto) 0 Baso # (Auto) 0 Sodium 138 Potassium 3.6 Chloride 104 Carbon Dioxide 21 L BUN 9 Creatinine 0.50 L Estimated GFR > 60.0 BUN/Creatinine Ratio 18.0 Glucose 182 H Calcium 9.5 Nasal Screen MRSA (PCR) Negative for mrsa Chlamy pneumoniae PCR Adenovirus (PCR) B.parapertussis DNA PCR Coronavirus OC43 (PCR) Coronavirus HKU1 (PCR) Coronavirus 229E (PCR) Coronavirus NL63 (PCR) Human Metapneumovir PCR Influenza Type A (PCR) Influenza Type B (PCR) M. pneumoniae (PCR) Parainfluenza 1 (PCR) Parainfluenza 2 (PCR) Parainfluenza 3 (PCR) Parainfluenza 4 (PCR) RSV (PCR) Entero/Rhino (PCR) Group A Strep (PCR) Assessment & Plan (1) Pneumonia: Qualifiers: Aspiration pneumonia type: Laterality: unspecified laterality Lung location: unspecified part of lung Pneumonia type: due to unspecified organism Qualified Code(s): J18.9 - Pneumonia, unspecified organism Current visit: Yes Status: Acute (2) Nasal congestion: Current visit: Yes Status: Acute (3) Moderate developmental delay: Current visit: No Status: None (4) Hemiparesis: Problem details: Secondary to glioma status post radiation Qualifiers: Hemiparesis etiology: non-cerebrovascular etiology Cerebrovascular disease type: Hemiparesis laterality: right dominant side Qualified Code(s): G81.91 - Hemiplegia, unspecified affecting right dominant side Current visit: No Status: None (5) History of glioma: Current visit: No Status: Chronic (6) Essential hypertension: Current visit: Yes Status: Deleted (7) Hypertension: Current visit: Yes Status: Acute (8) Tachycardia: Current visit: Yes Status: Acute (9) Dysarthria: Current visit: Yes Status: Acute (10) Dysphagia: Current visit: Yes Status: Acute Plan: Assessment/Plan Narrative: 38-year-old male developmental delay and 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 Second admission for respiratory like illness in 1 month. Clinically improved with steroids and antibiotics. Upper respiratory infection: Likely viral, although VRP negative. Negative CXR. Sputum culture/BC pending final read. Negative MRSA swab this admission however last admission it was positive. - Mucinex, Flonase to help with congestion. Suctioning -Continue Ceftriaxone and Vanco for anther 24 hours Tongue swelling: considering 2/2 infection, or idiopathic angioedema. Unlikely peritonsilar abscess, koko?s angina. Seemingly improved with steroids. -Continue methylprednisolone 60mg IV Q12H today, consider discharge burst of prednisone Hypertension: Blood pressure has been persistently elevated, likely due to acute illness and anxiety. Patient does not have a history of hypertension. -Metoprolol 5mg IV PRN for BPs >160/100 Hemiparesis/spasms: Patient has not received his usual baclofen due to difficulty swallowing. Hopefully we will be able to restart that today. -Lorazepam PRN Dysarthria, dysphagia: Speech now improving but still has weak cough. -Speech eval today Diet: NPO until seen by speech DVT prophylaxis: SCDs and Lovenox Code status: Full code. Disposition: Anticipate he will remain in the hospital at least another 24-48 hours. Since this is his second admission in less than a month.
[2018-10-14] MEDS: DEXTROSE 5%-0.9% NS 1,000 ML 125 ML IV (09:43)
[2018-10-14] MEDS: BACLOFEN 10 MG TABLET 5 MG PO ×3 (10:21→20:00)
[2018-10-14] MEDS: FLUTICASONE 120 SPRAY/16 GM SPRAY.SUSP NASAL ×2 (10:22→20:00)
[2018-10-14] MEDS: FLUoxetine 20 MG CAPSULE PO (10:22)
--- NOTE | 2018-10-14 11:25 | PT.IPTN ---
Current Diagnoses Hemiplegia, unspecified affecting right dominant side (10/12/18) Essential (primary) hypertension (10/12/18) Pneumonia, unspecified organism (10/12/18) Tachycardia, unspecified (10/12/18) Nasal congestion (10/12/18) Dysphagia, unspecified (10/12/18) Dysarthria and anarthria (10/12/18) Unspecified lack of expected normal physiological development in childhood (10/12/18) Personal history of other specified conditions (10/12/18) Physical Therapy Treatment Note M2 PT-IP Current Condition Start: 10/13/18 12:20 Freq: NEEDED Status: Active Protocol: Document 10/13/18 10:10 HH (Rec: 10/13/18 12:51 [id number]) Physical Therapy Current Condition Current Condition Evaluation Date 10/13/18 Treatment Diagnosis SOB, dypnea, generalized muscle weakness Onset Date 10/12/18 M3 PT-IP Subjective Start: 10/13/18 12:20 Freq: NEEDED Status: Active Protocol: Document 10/14/18 11:25 RCC (Rec: 10/14/18 12:15 RCC [id number]) Subjective Physical Therapy Visit Type Type Treatment Note Visit Start Time 11:05 Visit Stop Time 11:25 Total Visit Minutes 20 Notes co-treatment with OT Number of COAL CHUTE WORKER Visits 0 Physical Therapy Visit Comments Patient Comments Pt admits to feeling a little better today. M4 PT-IP Mobility and Gait Start: 10/13/18 12:20 Freq: NEEDED Status: Active Protocol: Document 10/14/18 11:25 RCC (Rec: 10/14/18 12:15 [facility] [id number]) PT-Bed Mobility Assessment Rolling Level of Assist Maximal Assistance 2 Person Assistance Supine to Sit Supine to Sit Maximum Assistance 2 Person Assistance Scooting Scooting to Edge of Bed Maximum Assistance PT-Transfer Assessment Sit to and From Stand Sit to and from Stand Moderate Assistance Maximum Assistance 2 Person Assistance Use of Upper Extremities Equipment Transfer Assistive Device Gait Belt Transfers Transfer Destination Chair Transfer Technique Stand Pivot Transfer Ability Level of Assist Maximum Assistance 2 Person Assistance Use of Upper Extremities Comments Mobility Comments Sit to stand Mod/max A x2- posterior lean, forward flexed trunk but improved with verbal and tactile cuing. Transfer performed with PT and OT assist on either side of pt, no FWW, standing pivot transfer to the R. Gait Assessment Comments Gait Comments unable M5 PT-IP Objective Assessments Start: 10/13/18 12:20 Freq: NEEDED Status: Active Protocol: Document 10/14/18 11:25 RCC (Rec: 10/14/18 12:15 [facility] [id number]) Orientation Orientation/Cognition Level of Alertness Confusional State M7 PT-IP Assessment and Plan Start: 10/13/18 12:20 Freq: NEEDED Status: Active Protocol: Document 10/14/18 11:25 [facility] (Rec: 10/14/18 12:15 [facility] [id number]) PT Summary Assessment and Plan Summary Progress Towards Goals Slow Progress due to Medical Issues Slow Progress due to Activity Tolerance Slow Progress - Other Assessment Summary Pt able to stand x1 manually with 2 assist, but unable to take function transfer steps. Pt was transferred to chair with 2 assist and stand-pivot transfer, but recommend ashley lift chair and BSC to bed. Pt is well below his prior level of function at this time, not safe to return home. Goals Bed Mobility Goal Maximal Assistance Transfer Goal Maximal Assistance Gait Goal Maximal Assistance Days to Meet Goals 10 Frequency of Treatment Frequency Of Treatment Once a Day Treatment Plan Other Recommendations and Next Treatment cont. to advance sit<->stand, Focus manual transfers Recommendations To Nursing Amount of Assist Needed Mechanical Lift Discharge Recommendations PT Discharge Recommendations SNF Rehab
--- NOTE | 2018-10-14 11:37 | ST.IPDYTX ---
Care Team Visit Care Team Role Provider Type Norman Perrin DO Emergency Provider Physician Specialty: Emergency Medicine Address: [address] [place] [id number] Email: Nargis Fernandez DO Attending Provider Physician Primary Care Provider Specialty: Family Practice Address: [address] [place] [id number] Email: [email or web address] Daniel Zamora MD Admit Provider Physician Other Providers Specialty: Internal Medicine Address: [address] [place] [id number] Email: [email or web address] FLATWORK PRESSER Dysphagia Treatment FLATWORK PRESSER Dysphagia Treatment Start: 10/13/18 13:15 Freq: Status: Active Protocol: Document 10/14/18 11:20 MRM (Rec: 10/14/18 11:37 MRM [id number]) Dysphagia Treatment Session Time Visit Start Time 10:20 Visit Stop Time 11:20 Total Visit Minutes 60 Setting Assessment Location Outpatient Care Visit Type Note Type Treatment Note Next Note Type Next Note Type Treatment Note Patient Information Identification Type Name Date of ID Wristband Other Subjective Observations Patient quite improved today. He was seen in bed with family present at the end of the session. Nursing and patient both stated large improvement from last night. Patient appeared to be unable to breathe through nose due to significant congestion. He stated, Yesterday, I had a ball of phlegm in my throat that felt like a third tonsil. I couldn't swallow because it was there. He has since improved, but still breathes through his mouth. Mild pain in throat remaining. Treatment Liquids Trialed Ice Chips Thin Solids Trialed Puree Dysphagia Advanced Mechanical Soft Administration Type Tea Spoon Straw Dependent Feeding Oral Strategies Upright at 90 degrees Double Swallow Controlled Bite/Sip Size Alternate Liquids/Solids Pharyngeal Strategies Sitting Upright (90 deg) Double Swallow Effortful Swallow Small Bites and Sips Alternate Liquids/Solids Additional Dysphagia Treatment Breathing/swallowing training Strategies Treatment Activities Patient participated in oral care with FLATWORK PRESSER prior to initiation of oral trials. He demonstrated adequate ability to hold thin liquid in mouth without posterior spillage into pharynx. Adequately performed swish and spit x3 with mouth wash and also able to expectorate after oral care with toothette. FLATWORK PRESSER administered trials of ice chips x3, thin liquid via straw x 10 pills in carrier x1 pills with thin liquid via straw x1, multiple trials of applesauce, soft fruit and soft sandwich. No overt s/s of aspiration observed throughout the session. Patient able to follow instructions from FLATWORK PRESSER to maintain safe swallowing behvaior. He independently implemented swallowing/ breathing/swallowing strategies (1:1 ratio with slow rate) as well as independently alternated liqudis and solids after instruction from FLATWORK PRESSER. Mild oral residue observed in mouth during and after mastication of dry bread. With liquid wash , he was able to clear. Patient at risk of aspiration should he forget to coordinate breathing and swallowing ( while significant nasal congestion remains). He verbalized understanding of this and his mother was also present for this education. Patient has sensitive teeth and has difficulty chewing dry , crunchy food at baseline(ex: dry meats, raw carrots, etc). As a result, FLATWORK PRESSER will recommend mechancial soft textures with thin liquids. Extra sauces and gravies to meats and breads to moisten for ease in mastication. Assessment Patient Response to Treatment Excellent Rehab Potential Good Assessment of Improvement Patient able to comprehend and implement breathing and swallowing alternation as well as alternation of liquid and solids without cues from FLATWORK PRESSER after initial explanation, demonstrating safe swallowing behavior. Due to his right hemiparesis, he would beneift from assistance with tray set up and monitoring during meals to ensure that he can feed himself adequately without spilling. Written reminders of swallowing strategies posted at bedside and provided through education. Patient and mother verbalized understanding. FLATWORK PRESSER also explained the menu in the patient's room and recommended that he order food for himself if he receives food that is too dry for him to chew. FLATWORK PRESSER will follow up for dysphagia/dysarthria intervention. Consider outpatient speech therapy to address dysphagia/dysarthria. Will discuss with patient and family in upcoming session. Diet Recommendations Recommendations Upgrade Diet Order Liquids Order Thin Diet Order Mechanical Soft Medication Recommendations As Tolerated Comments In carrier or with thin liquid via straw Additional Dietary Needs 1:1 Supervision Encourage to Self-Feed Reminders to Use Strategies Aspiration Precautions Recommended Precautions Upright at 90 Degrees Alternate Liquids/Solids Frequent Rest Periods Small Bites/Sips Effortful Swallow Check for Pocketing Additional Precautions Liquids from straw Treatment Plan Placement Recommendation after Discharge Snf Facility Outpatient Therapy Appropriate for Continued Therapy Yes Therapy Recommendations Speech therapy to address dysphagia/dysarthria. Recommend outpatient speech therapy after discharge. Will discuss with patient and family after discharge. Dysphagia Goals 1. Patient will implement dysphagia strategies independently to maintain safe swallowing throughout meal ( alternate liquids/solids, slow rate of intake, frequent breaks to maintain adequate respiration thorughout meal). 2. Patient will consider outpatinet speech therapy for further dysphagia/dysarthria intervention to improve articulation for communication and oral motor strength for improved mastication and oral control of more solid textures .
--- NOTE | 2018-10-14 11:57 | PT.IPTN ---
Current Diagnoses Hemiplegia, unspecified affecting right dominant side (10/12/18) Essential (primary) hypertension (10/12/18) Pneumonia, unspecified organism (10/12/18) Tachycardia, unspecified (10/12/18) Nasal congestion (10/12/18) Dysphagia, unspecified (10/12/18) Dysarthria and anarthria (10/12/18) Unspecified lack of expected normal physiological development in childhood (10/12/18) Personal history of other specified conditions (10/12/18) Physical Therapy Treatment Note M2 PT-IP Current Condition Start: 10/13/18 12:20 Freq: NEEDED Status: Active Protocol: Document 10/13/18 10:10 (Rec: 10/13/18 12:51 [id number]) Physical Therapy Current Condition Current Condition Evaluation Date 10/13/18 Treatment Diagnosis SOB, dypnea, generalized muscle weakness Onset Date 10/12/18 M3 PT-IP Subjective Start: 10/13/18 12:20 Freq: NEEDED Status: Active Protocol: Document 10/14/18 11:57 [facility] (Rec: 10/14/18 12:33 [facility] [id number]) Subjective Physical Therapy Visit Type Type Treatment Note Visit Start Time 11:29 Visit Stop Time 11:57 Total Visit Minutes 28 Notes co-treatment with OT Number of GORE INSERTER Visits 0 Physical Therapy Visit Comments Patient Comments pt willing to participate in therapy, was just seen by speech therapy. Therapy Pain Assessment Pain Present Pain Present Denied Pain M4 PT-IP Mobility and Gait Start: 10/13/18 12:20 Freq: NEEDED Status: Active Protocol: Document 10/14/18 11:57 [facility] (Rec: 10/14/18 12:33 [facility] [id number]) PT-Bed Mobility Assessment Supine to Sit Supine to Sit Total Assistance 2 Person Assistance Sit to Supine Sit to Supine Total Assistance 2 Person Assistance Scooting Scooting to Edge of Bed Dependent Scooting Up and Down in Bed Dependent PT-Transfer Assessment Sit to and From Stand Sit to and from Stand Moderate Assistance 2 Person Assistance Use of Upper Extremities Equipment Transfer Assistive Device Gait Belt Front Wheeled Walker Comments Mobility Comments sit<->stand x2- first for 45 sec, second for 15 seconds 2 assist Mod A with FWW, 3rd carpenter assistant installer for FWW stabilization. Increased lean posteriorly, B adductor tone decreasing NATALIE, impaired UE function limiting ability to manage FWW. Standing weight shift x10 sec with fatigue. M5 PT-IP Objective Assessments Start: 10/13/18 12:20 Freq: NEEDED Status: Active Protocol: Document 10/14/18 11:57 [facility] (Rec: 10/14/18 12:33 [facility] [id number]) Muscle Tone Muscle Tone Location Bilateral Lower Extremity Type of Tone Hypertonicity Severity of Tone Severe M7 PT-IP Assessment and Plan Start: 10/13/18 12:20 Freq: NEEDED Status: Active Protocol: Document 10/14/18 11:57 [facility] (Rec: 10/14/18 12:33 [facility] [id number]) PT Summary Assessment and Plan Summary Progress Towards Goals Slow Progress due to Medical Issues Slow Progress due to Activity Tolerance Slow Progress - Other Assessment Summary Pt able to stand with high bed x2 with 2 assist and a 3rd carpenter assistant installer to assist with FWW management. Pt able to shift weight laterally, but unable to take functional steps at this time and not safe for manual transfer. Pt able to tolerate PO, baclofen ~1 hr prior to treatment. Expect pt' s tone to improve with baclofen, may be ready for manual transfer tomorrow, if not possibly use Power Stander to assist with transfer and standing/upright tolerance and tone management. Goals Bed Mobility Goal Maximal Assistance Transfer Goal Maximal Assistance Gait Goal Maximal Assistance Days to Meet Goals 10 Frequency of Treatment Frequency Of Treatment Once a Day Treatment Plan Other Recommendations and Next Treatment trial manual transfer, if not Focus use Power Stander. Shoes on for transfers. Recommendations To Nursing Amount of Assist Needed Total Assistance Discharge Recommendations PT Discharge Recommendations SNF Rehab
--- NOTE | 2018-10-14 13:42 | CM.DPC ---
DCP Cont: Per MD, pt was transferred rooms down to ICU for respiratory issues and closer monitoring his rhythms. Per RN, pt doing a little better today. ST ordered for swallow eval to likely happen today. Per PT, still recommending SNF at d/c at this time. No family currently bedside and SW left msg for pt's mom/FRANCIE Bear to further discuss SNF recommendation and determine if she is agreeable with SNF referrals for [facility] to determine if SNF could even be an option through his Medicaid insurance. Plan: SW to follow closely for return call from mom towards determining SNF referrals vs return home with caregiver and Resume Vivi VELASQUEZ. ARIC Ca
--- NOTE | 2018-10-14 14:26 | OT.IP.EVAL ---
Current Diagnoses Hemiplegia, unspecified affecting right dominant side (10/12/18) Essential (primary) hypertension (10/12/18) Pneumonia, unspecified organism (10/12/18) Tachycardia, unspecified (10/12/18) Nasal congestion (10/12/18) Dysphagia, unspecified (10/12/18) Dysarthria and anarthria (10/12/18) Unspecified lack of expected normal physiological development in childhood (10/12/18) Personal history of other specified conditions (10/12/18) Past Medical History (Last Reviewed 10/13/18 @ 12:58 by Nargis Fernandez DO) Depression (Chronic) Glioma (Chronic) Hemiparesis (Chronic ~1984) Occupational Therapy Inpatient Evaluation/Re-Eval M1 PT/OT-IP Prior Functional Status Start: 10/13/18 12:20 Freq: NEEDED Status: Active Protocol: Document 10/13/18 10:10 (Rec: 10/13/18 12:51 [id number]) Medical Review Prior Functional Status Medical History Reviewed Yes Diet/Fluid Consistency please see GUNNER'S MATE M eval Communication Pt is able to follow simple command but have difficulty in verbal expression. Slow speech overall. 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 Pt 's mother Marianela comes to his house everyday to check on pt as well. Social History Household Members family caregiver none Living Arrangements Apartment/Condo Number of Stairs To Enter/Railing? Pt is unable to provide information. will update when pt's mother back to bedside again tomorrow. Home Equipment Manual Wheelchair Power Wheelchair/Scooter Mechanical Lift Hospital Bed Employment Status Unemployed Additional Social History Comment SW's report shows pt lives alone in an apartment in [place] but has SHAUN CG a few hours every day for assist . Pt's mother comes every day to check on the pt as well. Pt uses a lift, hospital bed, and power / manual w/c at home and needs assist with transfers. Pt has been receiving Vivi . Pt has been attending outpatient aquatic PT based on ROBIN report. Per OPHTHALMIC MEDICAL TECHNICIAN , pt has been standing up with assist during aquatic therapy . M1 PT/OT-IP Prior Functional Status Start: 10/14/18 13:46 Freq: NEEDED Status: Active Protocol: Document 10/14/18 13:47 [facility] (Rec: 10/14/18 14:26 [facility] [id number]) Medical Review Prior Functional Status Medical History Reviewed Yes Diet/Fluid Consistency NPO Communication Pt is able to follow simple command but have difficulty in verbal expression. Slow speech overall. 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 Pt 's mother Marianela comes to his house everyday to check on pt as well. Pt states able to feed himself but admits at times skips his meals. Social History Household Members family caregiver none Living Arrangements Apartment/Condo Number of Stairs To Enter/Railing? Pt is unable to provide information. will update when pt's mother back to bedside again tomorrow. Home Equipment Manual Wheelchair Power Wheelchair/Scooter Mechanical Lift Hospital Bed Employment Status Unemployed Additional Social History Comment SW's report shows pt lives alone in an apartment in [place] but has SHAUN CG a few hours every day for assist . Pt's mother comes every day to check on the pt as well. Pt uses a lift, hospital bed, and power / manual w/c at home and needs assist with transfers. [facility] Pt has been attending outpatient aquatic PT based on report. Per OPHTHALMIC MEDICAL TECHNICIAN , pt has been standing up with assist during aquatic therapy . M2 OT-IP Current Condition Start: 10/14/18 13:46 Freq: Status: Active Protocol: Document 10/14/18 13:47 [facility] (Rec: 10/14/18 14:26 [facility] [id number]) Occupational Therapy Current Condition Current Condition Evaluation Date 10/14/18 Treatment Diagnosis SOB,weakness Diagnosis Onset Date 10/12/18 M3 OT- IP Subjective and Pain Start: 10/14/18 13:46 Freq: Status: Active Protocol: Document 10/14/18 13:47 [facility] (Rec: 10/14/18 14:26 [facility] [id number]) OT- Subjective Occupational Therapy Visit Type Type Initial Evaluation Visit Start Time 11:25 Visit Stop Time 12:35 Total Visit Minutes 70 Occupational Therapy Visit Comments Patient Comments Pt agreeable to get up. OT Pain Assessment Pain When Pain Assessed At Rest Pain Present Pain Present Denied Pain M4 OT- IP ADL's Start: 10/14/18 13:46 Freq: Status: Active Protocol: Document 10/14/18 13:47 [facility] (Rec: 10/14/18 14:26 [facility] [id number]) OT [id number] General Evaluation Self-Feeding Ability Minimal Assistance Areas Needing Assistance Cutting Food Opening Containers Comments OT Self-Feeding Comments Pt states normally eats from bowls, but states does not need to be changed while here in the hospital. Pt able to eat with fork, but may benefit from exploring alternative devices to help with pt's independence to self feed himself. OT ADL-Grooming Comments OT Grooming Comments Pt states uses an electric toothbrush at home with left hand. Mainly has difficulty to wash his hands. In addition has help in the morning from SHAUN to get him up and ready for the day. Pt dependent to help soak and wash his left hand due to soiled underneath his fingernails. OT ADL-Dressing General Eval Lower Body Dressing Ability Total Assistance Areas Needing Assistance Socks Shoes Comments OT Dressing Comments Dependent for all LB dressing needs. M6 OT- IP Functional Cognition Start: 10/14/18 13:46 Freq: Status: Active Protocol: Document 10/14/18 13:47 [facility] (Rec: 10/14/18 14:26 [facility] [id number]) Cognitive Factors Limiting Selfcare Function Cognitive Ability Level of Alertness Alert Patient Orientation Name Place Situation Attention Span Ability Capable of Focused Attention Capable of Sustained Attention Ability to Follow Commands Able to Follow One Step Commands Safety Awareness Underestimates Need for Assistance Problem Solving Ability Needs Assist to Identify Solutions Executive Function Ability Unable to Filter Distractions Unable to Make Plans Unable to Organize Plans Cognitive Comments Cognitive Assessment Comments Pt not able to fully answer questions as to what he eats at home as response of misses meals or just eats hot pockets from microwave. OT- Vision and Hearing OT- Vision Assessment Vision Assessment Comments Pt able to see and read accurately the time on the clock. M7 OT- IP Mobility and Balance Start: 10/14/18 13:46 Freq: Status: Active Protocol: Document 10/14/18 13:47 [facility] (Rec: 10/14/18 14:26 [facility] [id number]) OT- Bed Mobility Assessment Rolling Type of Rolling Roll to Left Level of Assistance Total Assistance 2 Person Assistance Supine to Sit Supine to Sit Assist Total Assistance 2 Person Assistance OT-Transfer Assessment Sit to and From Stand Sit to and from Stand Moderate Assistance 2 Person Assistance Comments Mobility Comments Cotxt with PT, nursing assisted 3rd person to help hold FWW in place. Pt able to stand several times MODA X 2 to stand from 10 sec to 45 seconds at a time. Pt unsteady and not ready to attempt for transfer at this time and best to use mechanical lift. Pt just restarted dose of Baclofen today and hopefull tone more managed to attempt transfer tomorrow. OT- Balance Assessment Sitting Balance and Reactions Static Sitting Balance Ability Fair Dynamic Sitting Balance Ability Poor Standing Balance and Reactions Static Standing Balance Ability Poor Dynamic Standing Balance Ability Poor M8 OT- IP Objective Assessments Start: 10/14/18 13:46 Freq: Status: Active Protocol: Document 10/14/18 13:47 [facility] (Rec: 10/14/18 14:26 [facility] [id number]) OT Gross Range of Motion Upper Extremity Range of Motion Assessment Bilaterally Impaired ROM Impairments WFL for RUE from elbow to distal for PROM. Pt tends to keep RUE internally rotated with wrist and fingers flexed. LUE grossly WFL for needs for AROM for grooming and eating needs. OT Strength Comments Strength Comments LUE at least 3-/5 not formally tested able to use arm to eat . OT- Coordination Assessment Comments Coordination Comments Decreased left hand unable to open lid from coffee cup. pt able to manipulate utensils in order to eat with his spoon and fork. OT-Muscle Tone Assessment Muscle Tone WNL Yes Muscle Tone Location Bilateral Upper Extremity Type of Tone Hypertonicity Rigidity Flexor Extensor OT Sensation Assessment Comments Summary Comments Pt states sensation slightly decreased on right UE versus left UE. Edema Edema Present Edema Comments Right hand min swelling. M9 OT- IP Assessment and Plan Start: 10/14/18 13:46 Freq: Status: Active Protocol: Document 10/14/18 13:47 [facility] (Rec: 10/14/18 14:26 [facility] [id number]) OT Summary Assessment and Plan Potential Rehabilitation Potential Good Analytic Complexity at Evaluation Low Summary OT Impairments Range of Motion Strength Balance Coordination Sensation Tone Functional Cognition Functional Mobility Self-Feeding Grooming Dressing Toileting Bathing Toilet Transfers Shower Transfers Progress Towards Goals Slow Progress due to Medical Issues Slow Progress due to Activity Tolerance Slow Progress due to Cognition Assessment Summary Pt low complexity and main barrier is decrease balance, endurance, activity tolerance and not at his baseline level. In addition pt has increased tone also making movements more difficulty at this time and needing use of mechanical lift for transfers. Pt would benefit from skilled rehab to help increase activity tolerance, endurance, and educate further of possible equipment needs to help increase pt independence for ADL needs. This is pt's 2nd admission in less than a month and also would benefit from all three disciplines of PT/OT /GUNNER'S MATE M to work with pt to prevent pt from coming back to the hospital from further needs. Goals Self-Feeding Goal Standby Assistance Grooming Goal Minimal Assistance Patient/Caregiver Education Goal Caregiver Independent Assisting Patient OT-Other Goals To help pt identify adaptive devices to help increase pt's independence with ADL needs. Pt to be able to transfer with FWW to recliner/bed with MOD A X2. Pt to be able to use RUE to assist with grooming and eating needs 25% of the time for gross grasp. Days to Meet Goals 7 Frequency of Treatment Frequency Of Treatment Once a Day Treatment Plan OT Treatment Plan ADL Training Functional Cognition Training Functional Mobility Neuromuscular Re-education Patient/Family Education Discharge Planning Other Treatment Recommendations and Next Incorporation of RUE for Treatment Focus grooming/eating needs. Discharge Recommendations OT Discharge Recommendations SNF Rehab
[2018-10-14] MEDS: CEFTRIAXONE 2 GM/50 ML FROZ.PIGGY IV (14:28)
--- NOTE | 2018-10-14 14:31 | PC.NURSE ---
Pt reports feeling much better today than yesterday. He denies throat pain. Asked to be suctioned at change of shift- only scant amount of thick yellow secretions noted, mostly white/thin. Asking for food/drink. Was cleared for a diet by ST and is able to feed himself. 1300 pt requested urinal to void but was unable. Bladder scan performed showing 383 ML. After, pt was able to void 275 of concentrated but clear, raegan urine. Page out to Dr. Vaughn regarding IV access- accidental dc of 22G to L wrist. Only has a 24G to LFA currently with cont IVFs at 125 ml/hr and vanc/rocephin ordered.
[2018-10-14 16:33] LABS: Vancomycin Trough 14.1 ug/mL (10-20)
[2018-10-14] MEDS: VANCOMYCIN TROUGH 1 REQUEST MISC (16:43)
[2018-10-14] MEDS: SODIUM CHLORIDE 0.9% 500 ML 21 ML IV (16:44)
[2018-10-14] MEDS: LATANOPROST 0.005% OPHTH 2.5 ML 1 DROPS EYE-BOTH (20:00)
[2018-10-15 06:02] VITALS: BP 113/67; PULSE 100; RESP 18; TEMP 36.8; O2SAT 96
[2018-10-15 07:14] VITALS: BP 116/69; PULSE 84; RESP 16; TEMP 36.4; O2SAT 97
[2018-10-15 08:00] VITALS: O2SAT 97
[2018-10-15] MEDS: FLUoxetine 20 MG CAPSULE PO (08:29)
[2018-10-15] MEDS: BACLOFEN 10 MG TABLET 5 MG PO (08:29)
[2018-10-15] MEDS: ENOXAPARIN 40 MG/0.4 ML SYRINGE SUBCUT (08:29)
[2018-10-15] MEDS: FLUTICASONE 120 SPRAY/16 GM SPRAY.SUSP NASAL (08:30)
--- NOTE | 2018-10-15 09:51 | P.DS_ITS ---
History of Present Illness Date Patient Seen: 10/15/18 Time Patient Seen: 09:51 Chief complaint: SOB Narrative: From H&P on 10/13/[address] 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 He was treated for pneumonia the end of August/beginning of September with complete resolution of symptoms. He continues to live independently at home with significant help from family. This morning patient is unaccompanied and quite difficult to understand. At baseline speech is somewhat difficult. Denies pain or shortness of breath. Complains of sore throat and nasal congestion. He has refused oral medications because he does not feel he can swallow very well secondary to sore throat. In the emergency department yesterday labs were remarkable for a slightly elevated white count, otherwise reassuring. Normal procalcitonin and lactate. Chest x-ray did not show focal pneumonia however given patient's clinical picture he was started on levofloxacin. Negative for influenza. Discharge Providers Date of admission: 10/12/18 17:43 Primary care physician: Nargis Fernandez DO Consults: 10/12/18 19:16 Consult to Discharge Planning Routine Comment: Consult to Occupational Therapy Evaluate & Treat Comment: Physician Instructions: Evaluate and treat Consult to Physical Therapy Evaluate & Treat Comment: Physician Instructions: Evaluate and Treat 10/13/18 08:02 Consult to Speech Therapy Evaluate & Treat Comment: Physician Instructions: Evaluate and treat Discharge provider: Juju Vaughn DO Discharge Date: 10/15/18 Summary Discharge Diagnosis: Acute Bacterial Sinusitus vs Viral respiratory infection, responded well to treatment Tongue swelling, angioedema Dysphagia HTN, transient Iatrogenic Hyerglycemia, 2/2 steroids Hemiparesis, dysarthria, 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 He was found to be tachycardic and hypertensive, with temp high of 102 F. He continued to maintain his airway and O2 sats, however he had dysphagia , dysarthria different from baseline, and significant tongue swelling. CXR and soft tissue-neck films were unremarkable. He was started on steroids for swelling and his antibiotics were broadened to Ceftriaxone and Vancomycin. Speech was unable to assess his swallow given the swelling. By the next am, he had clinically improved and was speaking full sentences and asking for water. His blood/throat cultures were negative, with negative MRSA swab this admission (swab was positive on last hospital admission 3 weeks ago. His BP was briefly controlled with IV metoprolol that was eventually stopped as he clinically improved. He also had mild leukocytosis and hyperglycemia 2/2 steroids. On day of discharge he had clinically improved, tolerating thin liquids, breathing well, and overall feeling better, wanting to go home. His vitals had improved as well. His mother was called to discuss discharge planning, who agreed to have him discharged and close follow up. Exam Vital Signs (past 8 hours): - 10/15/18 06:02 10/15/18 07:14 Temperature 98.2 F 97.5 F L Pulse Rate 100 H 84 Respiratory Rate 18 16 Blood Pressure 113/67 116/69 Pulse Oximetry 96 97 Oxygen Delivery Method Room Air Oxygen Flow Rate 0 Narrative Exam Narrative: Constitutional: Sitting in bed, NAD, mouth open, breathing easy Head: NCAT Eyes: EOMI, PERRLA ENT: Improved tongue swelling, able to close mouth, uvula midline and no significantly enlarged, no significant erythema in oropharynx. No cervical lymphadenopathy or tenderness on neck exam Chest: symmetric expansion Heart: RRR and no murmurs Lungs: Improved rhonchi bilaterally but no focal crackles, wheezing. Moderate respiratory effort. Poor cough. Abdomen: Soft, nondistended, nontender Extrem: slightly warm and clammy legs, no tenderness, swelling, pulses intact Neuro: Awake and alert, speaking clearer than yesterday in full sentences, following commands, moving left side of body Objective Labs Result Diagrams: 10/14/18 06:40 10/14/18 06:40 Labs: Laboratory Results - last 24 hr 10/14/18 15:43 Vancomycin Trough 14.1 Discharge Plan Discharge Plan Patient Disposition: Home Discharge Med Rec/Prescriptions Prescriptions: New guaifenesin 600 mg Tablet Extended Release 12hr 600 mg PO Q12HR PRN (Reason: Cough) Qty: 10 RF: 0 prednisone 20 mg tablet 40 mg PO DAILY Qty: 6 RF: 0 cefdinir 300 mg capsule 300 mg PO Q12H 5 Days Qty: 10 RF: 0 Continue fluoxetine 20 mg capsule 20 mg PO QDAY Qty: 90 RF: 3 Battery Powered Lift Qty: 1 RF: 0 miscellaneous medical supply misc .ROUTE .MEDSUPPLY Qty: 1 RF: 0 bariatric hospital bed Qty: 1 RF: 0 Power Chair tall Qty: 1 RF: 0 baclofen 5 mg Tablet 5 mg PO TID RF: 0 latanoprost 0.005 % Drops 1 drp EYE-BOTH BEDTIME RF: 0 Follow up/Referrals: Nargis Fernandez DO [Primary Care Provider] - 1 Week Provider Discharge Instructions Diet: Diet as Tolerated Skin/Wound/Dressing Care Report to your healthcare provider any signs of infection, such as:: chills, fever, night sweats and increased pain Discharge Data Primary Care Provider: Nargis Fernandez Attending Provider: Nargis Fernandez Admit Date/Time: 10/12/18 17:43
--- NOTE | 2018-10-15 10:35 | PT.IPTN ---
Current Diagnoses Hemiplegia, unspecified affecting right dominant side (10/12/18) Essential (primary) hypertension (10/12/18) Pneumonia, unspecified organism (10/12/18) Tachycardia, unspecified (10/12/18) Nasal congestion (10/12/18) Dysphagia, unspecified (10/12/18) Dysarthria and anarthria (10/12/18) Unspecified lack of expected normal physiological development in childhood (10/12/18) Personal history of other specified conditions (10/12/18) Physical Therapy Treatment Note M2 PT-IP Current Condition Start: 10/13/18 12:20 Freq: NEEDED Status: Active Protocol: Document 10/13/18 10:10 (Rec: 10/13/18 12:51 [id number]) Physical Therapy Current Condition Current Condition Evaluation Date 10/13/18 Treatment Diagnosis SOB, dypnea, generalized muscle weakness Onset Date 10/12/18 M3 PT-IP Subjective Start: 10/13/18 12:20 Freq: NEEDED Status: Active Protocol: Document 10/15/18 10:35 RCC (Rec: 10/15/18 10:54 RCC [id number]) Subjective Physical Therapy Visit Type Type Treatment Note Visit Start Time 10:15 Visit Stop Time 10:35 Total Visit Minutes 20 Number of LINOLEUM MECHANIC Visits 0 Physical Therapy Visit Comments Patient Comments pt states he is feeling much better, would like to go home today. M4 PT-IP Mobility and Gait Start: 10/13/18 12:20 Freq: NEEDED Status: Active Protocol: Document 10/15/18 10:35 RCC (Rec: 10/15/18 10:54 [facility] [id number]) PT-Bed Mobility Assessment Supine to Sit Supine to Sit Maximum Assistance 1 Person Assistance Sit to Supine Sit to Supine Maximum Assistance 2 Person Assistance Scooting Scooting to Edge of Bed Maximum Assistance Scooting Up and Down in Bed Dependent PT-Transfer Assessment Sit to and From Stand Sit to and from Stand Maximum Assistance 1 Person Assistance Use of Upper Extremities Equipment Transfer Assistive Device Gait Belt Front Wheeled Walker Comments Mobility Comments small pivot L to mimic getting to power chair, Max A x2 (one to manage FWW) pt able to hold self up mod indep. with use of L hand on FWW to mimic a grab bar that he has at home. Gait Assessment Comments Gait Comments N/A PT-Balance Assessment Sitting Balance and Reactions Static Sitting Balance Ability Poor Dynamic Sitting Balance Ability Poor Standing Balance and Reactions Static Standing Balance Ability Poor Dynamic Standing Balance Ability Poor M5 PT-IP Objective Assessments Start: 10/13/18 12:20 Freq: NEEDED Status: Active Protocol: Document 10/14/18 11:57 RCC (Rec: 10/14/18 12:33 RCC [id number]) Muscle Tone Muscle Tone Location Bilateral Lower Extremity Type of Tone Hypertonicity Severity of Tone Severe M7 PT-IP Assessment and Plan Start: 10/13/18 12:20 Freq: NEEDED Status: Active Protocol: Document 10/15/18 10:35 RCC (Rec: 10/15/18 10:54 RCC [id number]) PT Summary Assessment and Plan Summary Assessment Summary Pt able to perform bed mobility with Max A x1 today, stand twice (first trial for 1 min with mild lateral pivot and Max A x1, second trial for 15 sec with max A x1- second assist was to stabilize the FWW). Pt reports this is his baseline prior level of standing tolerance, and feels confident with d/c home today. He is more clear, able to make needs known and willing participant in PT. At this time, if pt and family feel they can manage pt at home, he may d/c back home with resume of HH PT when medically stable. Goals Bed Mobility Goal Maximal Assistance Transfer Goal Maximal Assistance Gait Goal Maximal Assistance Days to Meet Goals 10 Frequency of Treatment Frequency Of Treatment Once a Day Treatment Plan Other Recommendations and Next Treatment bed mobility, sitting balance, Focus standing tolerance, transfers . Recommendations To Nursing Amount of Assist Needed Mechanical Lift Discharge Recommendations PT Discharge Recommendations Home with Assistance Home Health
[2018-10-15] MEDS: CEFTRIAXONE 1 GM/50 ML FROZ.PIGGY IV (10:43)
[2018-10-15] MEDS: methylPREDNISolone 125 MG/2 ML VIAL 60 MG IV (12:20)
--- NOTE | 2018-10-15 13:37 | CM.DPC ---
DCP/continued: Reviewed chart. Orders obtained for patient to d/c home today. Spoke with Jamaal from PT and he confirms patient most likely near or at baseline. Per notes, Dr. Vaughn has spoken with patient's Mother/Marianela and she is in agreement for patient to d/c home. [employer] has left 2 voicemails with Mother requesting return phone call. In addition, placed call to [facility]. They do have patient on their caseload and plan to see him at the residence tomorrow 10-16-18. Order obtained to resume HH and d/c summary faxed to [facility] at [phone] left vm as well confirming discharge today. Attempted to call patient's caregivers/[facility] # [phone] to inform them of discharge today as well. Unable to reach anyone on Tuesday. Therefore, left requesting call back. P: Home today. Orders resumed through [facility] for HH. Unable to reach caregivers at [facility] or patient's Mother/Marianela. However, physician note from this AM reports that discharge discussed and agreed upon by both patient and Mother. ARIC [place]
--- NOTE | 2018-10-15 14:13 | CM.DPC ---
DCP/continued: Received call from ICU/RN that patient's Mother/Marianela had arrived to take patient home. Met with patient and Mother/Marianela. Both aware and agreeable to discharge plan. Also confirmed with [facility] that they will be seeing patient in the home tomorrow/10-16-18. Faxed discharge summary and request for follow up from [facility] re: DME. Patient and Mother report that they have been attempting to obtain new DME but have had difficulty. Mother plans to call Dr. Fernandez and SHAUN PERAZA/Steph Harris tomorrow. Apparently, this has already been started. Encouraged patient's Mother to continue process, although can be very tedious. P: Home today with [facility]. ARIC Bay
--- NOTE | 2018-10-15 14:16 | PC.NURSE ---
Pt d/c'd to home per Dr. Vaughn's order. HH resumed (see care mgmt note). Provided d/c packet to pt and mother. Educated on disease process, need to schedule f/u appt, call Dr. Fernandez tomorrow, medications, prescriptions, next dose due, side effects, scheduling of meds. Educated to meds already given today. Both mom and pt verbalize understanding. Pt was transferred from bed to own electric w/c via 2PA and ashley. Assisted to dress. Removed telemetry and PIV. Gathered all belongings. Pt left hospital to d/c home via electric w/c with mom in no acute distress with all belongings.
== END 2018-10-15 14:00 | disposition home or self-care (01) | DRG 153 ==
LOC: ED 17:41 → AC 17:45 → ICU 10-15 09:51
PROVIDERS: Admitting Provider Internal Medicine; Emergency Provider Emergency Medicine; PCP Family Medicine; Visit Provider Family Medicine
DX: J06.9 Acute upper respiratory infection, unspecified (principal); G81.91 Hemiplegia, unspecified affecting right dominant side; R13.10 Dysphagia, unspecified; J01.90 Acute sinusitis, unspecified; T78.3XXA Angioneurotic edema, initial encounter; B96.89 Other specified bacterial agents as the cause of diseases classified elsewhere; R47.1 Dysarthria and anarthria; R03.0 Elevated blood-pressure reading, without diagnosis of hypertension
CPT/HCPCS: 36415; 70360; 71045; 80048; 80053; 80202; 81003; 83605; 83690; 84145; 85025; 87040; 87070; 87400; 87633; 87651; 87797; 92526; 92610; 93041; 94640; 94762; 94799; 96361; 96365; 96375; 97163; 97165; 97530; 97535; 99223; 99232; 99238; 99284; 99285; J0696; J1650; J1885; J1956; J2060; J2930

== ENCOUNTER 2019-01-04 14:29 | Outpatient (RCR) | payer MEDICAID, OTHER, SELFPAY ==
[2018-10-12 18:23] VITALS: BMI 33.9
--- NOTE | 2019-01-04 15:15 | PT.OIE ---
Current Diagnoses Other symptoms and signs involving the musculoskeletal system (01/04/19) Unspecified lack of expected normal physiological development in childhood (01/04/19) Past Medical History (Last Reviewed 10/27/18 @ 07:39 by Nargis Fernandez DO) Depression (Chronic) Glioma (Chronic) Hemiparesis (Chronic ~1984) Provider Visit Care Team Role Provider Type Nargis Fernandez DO Attending Provider Physician Primary Care Provider Specialty: [facility] Address: [address] [place] [address], [facility] Email: [email or web address] Physical Therapy Initial Evaluation PT-OP-A Visit Information Start: 01/08/19 11:59 Freq: Status: Active Protocol: Document 01/04/19 14:30 DCW (Rec: 01/08/19 13:49 DCW [id number]) Out-Patient Physical Therapy Visit Information Visit Information Visit Type Initial Evaluation Visit Start Time 14:30 Visit Stop Time 15:15 Total Visit Minutes 45 Visit Number 1 Number of OENOLOGIST Visits 0 Evaluation Information Evaluation Date 01/04/19 PT-OP-B Current Condition Start: 01/08/19 11:59 Freq: Status: Active Protocol: Document 01/04/19 14:30 DCW (Rec: 01/08/19 13:49 DCW [id number]) Current Condition History of Current Condition Onset Date 35 years Current Complaints weakness, immobility, stiffness, decreased functional movement History of Current Condition Pt is a 38 year old male very well known to this clinic, with a 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 Pt is now confined to his power wheelchair. Pt has spent >5 years off and on at this facility obtaining treatment, and over that time, has continually lost functional mobility. When he began therapy 5 years ago, he was able to stand with assistance and ambulate with a FWW ~50-100', however for a number of years, he has been unable to walk, and over the past year of therapy, is frequently unable to cop examiner the parallel bars without Max Ax2-3. Pt was discharged earlier this year due to decreasing function resulting in an inability for him to participate is any therapy, and was switched over to home health for therapy. Pt recently was hospitalized for an acute upper respiratory infection, and following this, was referred back to skilled outpatient therapy. Pt reports that he is now worse than ever, is unable to stand at his railing at home, requires Max Ax2 to transfer into his bed from his electric wheelchair, and due to the fact that he lives alone, after his family gets him into bed and leaves, he is stuck in bed until they arrive in the morning to help him out of bed and get him back in the chair. Pt does have ~10 hours a day of caregivers or family member assistance. Pt downplays danger of living alone, stating I have life alert, so there is no problem. Pt notes that home health therapy was going good, and he is unsure why it was stopped. Prior Functional Status Baseline Function- ADL's Needs Assist Baseline Function- Mobility Needs Assist Current Functional Impairments (Reported) Functional Limitations- ADL's Pt unable to transfer to bed from chair without Max Ax2+ Functional Limitations- Mobility/Gait Pt experiencing increased difficulty controlling his power chair, due to minimal control of right arm PT-OP-C Subjective Start: 01/08/19 11:59 Freq: Status: Active Protocol: Document 01/04/19 14:30 DCW (Rec: 01/08/19 13:49 DCW [id number]) OP-PT Subjective Patient Comments Patient Comments I've had some rough days. Patient Reported Progress Worse PT-OP-F Manual Assessment Start: 01/08/19 11:59 Freq: Status: Active Protocol: Document 01/04/19 14:30 DCW (Rec: 01/08/19 13:49 DCW [id number]) Manual Assessments Soft Tissue Assessment Soft Tissue Mobility Assessment Severe contractures in his B gastrocs, hip flexors, hamstring. Joint Mobility Assessment Joint Mobility Assessment R hand pt able to exhibit minimal extension (~10?) in second and third fingers, no movement in any other fingers PT-OP-G Mobility & Gait Start: 01/08/19 11:59 Freq: Status: Active Protocol: Document 01/04/19 14:30 DCW (Rec: 01/08/19 13:49 DCW [id number]) OP Mobility Evaluation Bed Mobility Rolling Pt able to roll from left side to supine, then unable to move. Supine to and from Sit Completely dependent Transfers Sit to Stand Attempted sit<->stand at parallel bars. Max Ax1: pt was unable to rise from chair at all Bed to Chair Transfers Per pt, requires at least Max Ax2 at home OP Gait Assessment Comments Gait Comments Complete inability to ambulate at this time PT-OP-K Range of Motion Start: 01/08/19 11:59 Freq: Status: Active Protocol: Document 01/04/19 14:30 DCW (Rec: 01/08/19 13:49 DCW [id number]) Lumbar Spine Range of Motion Lumbar Spine Active Testing Position Sitting Comments Pt very stiff through lumbar spine, sits in a sacral sitting position, unable to properly sit back into chair due to lumbar stiffness and core weakness. Shoulder Goniometric Range of Motion Shoulder Measured in Degrees Right Active Testing Position Sitting Abduction 0 Left Active Testing Position Sitting Abduction 32 Shoulder ROM Limitations Shoulder ROM Limitations Contracture Muscle Weakness Muscle Tone Pain PT-OP-T Assessment and Plan Start: 01/08/19 11:59 Freq: Status: Active Protocol: Document 01/04/19 14:30 DCW (Rec: 01/08/19 13:49 DCW [id number]) Physical Therapy Assessment Rehab Potential Rehabilitation Potential Poor Evaluation Complexity Number of Personal Factors/Comorbidities 3 or More Number of Body Systems Impaired 4 or More Clinical Presentation at Evaluation Unstable Impairments Impairments Activity Tolerance Balance Coordination Edema Functional Activities Functional Mobility Gait Integument Pain Posture ROM Soft Tissue Mobility Strength Tone Transfers Other Concerns Fall Risk High Assessment Summary Assessment Pt presents with severe impairments including global weakness, contractures, joint stiffness, complete dependence with transfers and standing, bilateral LE clonus, poor sitting posture due to lumbar stiffness and core weakness, inability to lean forward in his chair without Max Ax1, and an inability to prevent himself from sliding out of his chair due to sacral sitting without wedging his feet against the wall and then driving his chair forward. Pt has been treated at this facility over the past five years with hundreds of physical therapy appointments, and unfortunately, simply continued to decline in function. In my professional opinion, pt is unfortunately too debilitated to benefit from skilled out-patient physical therapy at this clinic. Pt is in need of a clinic that has more equipment suited for his disabilities and size. Pt would likely benefit from a tilt table, so he is able to spend time in an upright position to help with cardiovascular and GI health, a weight-supported treadmill to increase his leg mobility and get him out of constant seated position, and an overhead lift to ease burden of care for chair<->bed transfers. Pt would also benefit from a [id number] wheel chair, which would not only prevent him from sliding out of his chair, but would also limit his potential for his feet catching on the ground as he drives his chair, which at this time is highly probable, as he is unable to lift his legs more than 2 inches off the ground, and he just attempts to hold them up while he drives. It may also help limit pressure ulcers from forming by allowing him to shift his weight better. Pt will be discharged from skilled therapy at this clinic , in hopes that he is able to find a better situation with more appropriate equipment. Physical Therapy Plan Frequency and Duration Duration of Treatment 1 day Plan of Care Start Date 01/04/19 Plan of Care End Date 01/05/19 Discharge Physical Therapy Discharge Comments Pt unlikely to benefit from skilled out-patient therapy at this facility Next Visit Focus/Plan Next Note Type Discharge Summary
== END 2019-01-15 10:01 | disposition home or self-care (01) ==
LOC: PHYS 14:29
PROVIDERS: PCP Family Medicine; Visit Provider Family Medicine
DX: R29.898 Other symptoms and signs involving the musculoskeletal system (principal); R62.50 Unspecified lack of expected normal physiological development in childhood
CPT/HCPCS: 97163

== ENCOUNTER → 2019-01-15 12:35 | Outpatient (CLI) | payer MEDICAID, OTHER, SELFPAY ==
[2018-10-12 18:23] VITALS: BMI 33.9
--- NOTE | 2019-01-15 13:09 | DI.RAD.S_ITS ---
PROCEDURE: XR CHEST 2V INDICATIONS: shortness of breath TECHNIQUE: 2 views of the chest were acquired. COMPARISON: [facility], CR, XR CHEST 1V, 10/12/2018, 14:39. [facility], CR, XR CHEST 1V, 09/17/2018, 17:29. FINDINGS: Surgical changes and devices: None. Lungs and pleura: Lungs are clear. No pleural effusions or pneumothorax. Mediastinum: Mediastinal contours are normal. Heart size is normal. Bones and chest wall: No suspicious bony abnormalities. Soft tissues appear unremarkable. IMPRESSION: Normal for age, source of current shortness of breath symptoms is not seen. Dictated by: Gordo Neves M.D. on 01/15/2019 at 14:19 Approved by: Gordo Neves M.D. on 01/15/2019 at 14:19
[2019-01-15 13:59] LABS: Basophils Absolute Auto 100 /uL (0-100); Basophils Percent Auto 1.2 % (0-2); Eosinophils Absolute Auto 200 /uL (0-450); Eosinophils Percent Auto 2.4 % (2-4); Hematocrit 41.8 % (41-53); Hemoglobin 14.1 g/dL (13.5-17.5); Lymphocytes Absolute Auto 2800 /uL (1100-4500); Lymphocytes Percent Auto 37.9 % (25-40); Mean Corpuscular HGB Conc 33.8 % (30-36); Mean Corpuscular Hemoglobin 26.7 PG (26-34); Monocytes Absolute Auto 500 /uL (0-900); Monocytes Percent Auto 7.1 % (3-14); Neutrophils Absolute Auto 3800 /uL (1500-7000); Neutrophils Percent Auto 51.4 % (50-75); Red Blood Cell Count 5.28 X10^6/uL (4.5-5.9); Red Cell Distribution Width 13.8 % (11.6-14.8); White Blood Cell Count 7.3 X10^3/uL (4.5-11.0)
[2019-01-15 14:00] LABS: Alanine Aminotransferase 21 IU/L (21-72); Albumin 4.4 g/dL (3.5-5.0); Albumin Globulin Ratio 1.4 (1.0-2.8); Alkaline Phosphatase 93 U/L (38-126); Aspartate Aminotransferase 19 IU/L (17-59); BUN Creatinine Ratio 12.9 (6-22); Bilirubin Total 0.8 mg/dL (0.2-1.3); Blood Urea Nitrogen 9 mg/dL (9-20); C-Reactive Protein Quant 3.5 mg/dL (<1.0); Calcium 9.3 mg/dL (8.4-10.2); Carbon Dioxide 21 mmol/L (22-32); Chloride 103 mmol/L (98-107); Estimated Glomerular Filt Rate > 60.0 mL/min (>60); Globulin 3.2 g/dL (1.7-4.1); Glucose 77 mg/dL (70-100); HEMOLYSIS 21 (0-50); Potassium 4.2 mmol/L (3.4-5.1); Sodium 136 mmol/L (137-145); Total Protein 7.6 g/dL (6.3-8.2)
[2019-01-15 14:04] LABS: Add Manual Diff / Slide Review SLIDE REVIEW
[2019-01-15 14:45] LABS: Platelet Count 334 X10^3/uL (150-400); RBC Morphology Normal Morphology
[2019-01-15 14:54] LABS: TSH w/ Reflex to FT4 2.98 uIU/mL (0.47-4.68)
== END ==
PROVIDERS: PCP Family Medicine; Visit Provider Family Medicine
DX: R19.7 Diarrhea, unspecified (principal); R06.02 Shortness of breath; R63.4 Abnormal weight loss
CPT/HCPCS: 36415; 71046; 80053; 84443; 85025; 86140

== ENCOUNTER → 2019-01-17 16:16 | Outpatient (CLI) | payer MEDICAID, OTHER, SELFPAY ==
[2018-10-12 18:23] VITALS: BMI 33.9
[2019-01-17 18:04] LABS: Clostridium Difficile Tox PCR Negative for C. diff
== END ==
PROVIDERS: PCP Family Medicine; Visit Provider Family Medicine
DX: R19.7 Diarrhea, unspecified (principal)
CPT/HCPCS: 87493

== ENCOUNTER 2019-07-16 12:30 | Outpatient (RCR) | payer MEDICAID, OTHER, SELFPAY ==
[2018-10-12 18:23] VITALS: BMI 33.9
--- NOTE | 2019-06-05 13:58 | ST.OPIE ---
Visit Care Team Role Provider Type Nargis Fernandez DO Primary Care Provider Physician Specialty: Family Practice Address: [address] [place] [address], [facility], [place], [address] Email: [email or web address] Maryann Lawrence MD Attending Provider Physician Specialty: Internal Medicine Address: [address] [place] [address], [place], [address] Email: Speech-Language Pathology Initial Evaluation [employer] ORGANIZER Clinical Swallow Evaluation Start: 06/04/19 17:08 Freq: Status: Active Protocol: Document 06/04/19 17:09 ILDA (Rec: 06/04/19 18:18 ILDA [email or web address]) Clinical Swallow Evaluation Session Time Visit Start Time 12:30 Visit Stop Time 12:58 Total Visit Minutes 28 Visit Information Visit Number Initial Evaluation Plan of Care Dates 06/04/19 - 08/25/19 Insurance Information [facility] Referral Referring Physician Dr. Fernandez Reason for Referral Dysarthria, Dysphagia Setting Assessment Location Outpatient Care Visit Type Note Type Initial Evaluation Next Note Type Next Note Type Treatment Note Patient Information Identification Type Name History Pt is a 39-yr-old male who has been wheelchair bound for the past 10 yrs. 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 The pt is familiar to this clinician from speech therapy from May-July 2015 targeting speech intelligibility. Recent medical records indicate pt/ family request for referral to speech therapy d/t slow progression of reduced speech intelligibility. Referral also indicates dsyphagia. The pt denies significant current dysphagia but endorses difficulty with foods such as peanuts and carrots that break into pieces and lodge in his airway, as well as fatigue with foods that require extensive chewing, such as steak. The pt stated, I've gotten better at swallowing. I kind of forgot how, but now I remember. He described occasional symptoms of food that goes down the wrong pipe. The most recent episode was a little bit last week. The pt has experienced a significant weight loss since last seen at this clinic. He estimates a loss of ~100 lbs, which seems realistic. He reported this loss was intentional and not related to dysphagia. The pt's primary concern is difficulty producing clear speech and tendency to run out of breath when talking. Subjective Observations The pt arrived on time, unaccompanied. He provided case history supplemental to medical records. Evaluation Liquids Trialed Thin Solids Trialed Puree,Dysphagia Advanced, Mechanical Soft,Regular Administration Type Cup Single Sip,Self-Feeding Oral Impairment Moderately Impaired Oral Strategies Upright at 90 degrees Oral Phase Comments Oral Peripheral Exam: Moderate right side weakness resulting in facial droop with smile, lingual deviation to right side, inability to shift air to left cheek. Generalized weakness observed in tongue, lips and cheeks with reduced ROM and coordination. Pt unable to maintain lip seal. Drooling at left side of mouth observed x1 without oral intake, and frequent mild anterior escape during oral trials. Oral Phase: Extended mastication time, mashing in nature. Reduced bolus prep and a/p transit secondary to lingual weakness. Anterior escape of liquids and saliva during oral prep phase. Swallow trigger appears to be timely. Adequate oral clearance with exception of soft sandwich and victorino cracker, both of which cleared sufficiently with liquid wash. Pharyngeal Impairment Mildly Impaired Pharyngeal Strategies Sitting Upright (90 deg),Small Bites and Sips Pharyngeal Phase Comments No overt s/sx of aspiration were observed with all trials. Swallows were mildly effortful and loudly audible at both oral and pharyngeal levels, indicating reduced coordination. Pt c/o difficulty swallowing a piece of diced fruit but was successful with liquid wash. Findings Dysphagia Type Moderate Oral and Mild Pharyngeal Dysphagia Rehabilitation Potential Good Impressions Dysphagia symptoms secondary to reduced strength, coordination and ROM of swallow musculature. Airway appears to be adequately protected; however, the pt runs mild-moderate risk of aspiration and would benefit from strengthening of musculature to increase safety. The pt exhibits good insight into foods that increase effort, fatigue, and risk of aspiration and avoids them. Diet Recommendations Liquids Order Thin Diet Order Regular Medication Recommendations As Tolerated Comments Avoid dry crumbly foods and foods that require extensive mastication Aspiration Precautions Recommended Precautions Upright at 90 Degrees,Small Bites/Sips Treatment Plan Placement Recommendations after Home Discharge Appropriate for Therapy Yes Therapy Recommendations Ongoing assessment. Oral motor exercises to improve oral prep and swallow phases as well as speech articulation. Dysphagia Goals 1. The pt will perform oral motor exercises with 80% accuracy, min cues to improve oral prep and swallow phases as well as speech intelligibility. 2. The pt will maintain oral containment of foods and liquids with oral intake in 90% of therapeutic trials. Note: Pharyngeal exercises may be incorporated into treatment plan to improve/ maintain airway protection with oral intake. [employer] Motor Speech Evaluation Start: 06/04/19 17:08 Freq: Status: Active Protocol: Document 06/04/19 17:09 ILDA (Rec: 06/04/19 18:18 ILDA [email or web address]) Motor Speech Evaluation Session Time Visit Start Time 12:58 Visit Stop Time 13:23 Total Visit Minutes 25 Visit Information Visit Number Initial Evaluation Plan of Care Dates 06/04/19 - 08/25/19 Insurance Information [facility] Setting Setting Outpatient Care Next Note Type Next Note Type Treatment Note Mental Status Mental Status Alert,Responsive,Cooperative Oral Motor Lips Function Severe Impairment Observation at rest Open, flaccid, wet with saliva , occasional drooling Pucker WFL Retraction WFL Alternating pucker/retraction WFL Tongue Function Severe Impairment Observations at rest Flaccid Lateralization Limited Jaw Function WFL Observations at rest Open Soft Palate Function Severe Impairment Observations at rest Relaxed Symmetry WNL Elevation Minimal upon phonation Respiration/Phonation Tools Observations Physical elevation of upper torso upon inhalation Formal Mesaures Maximum Phonation Time (MPT), oral vs nasal breath emission Phonation Stimulus Sustained Phonation (MPT) task Quality Hoarse,Strained-strangled Other Strained with sustained phonation Duration 5-9 sec Loudness Monoloudness,Reduced Loudness Steadiness Hypernasal Oral Reading Stimulus Grandfather Passage Quality Strained-strangled Other Hypernasal. 48% intelligible Duration 97 sec Function Moderately Impaired Loudness Monoloudness,Reduced Loudness Conversation Stimulus Spontaneous Conversation Quality Strained-strangled Other Hypernasal Diadochokinetic Rates P^ Duration per 3 sec. 3.4 reps/sec Quality Moderate Impairment Comments Reduced precision with duration of task. 2 breaths required for 5 sec task. T^ Duration per 3 sec. 2.2 reps/sec Quality Moderate Impairment Comments Reduced precision with duration of task. 2 breaths required for 5 sec task. K^ Duration per 3 sec. 2.2 reps/sec Quality Moderate Impairment Comments Reduced precision with duration of task. 2 breaths required for 5 sec task. P^T^K^ Duration per 3 sec. 1 rep/sec Quality Moderate Impairment Comments Reduced precision with duration of task. 2 breaths required for 5 sec task. Speech Intelligibility Standardized Tests Assessment Name(s) Speech sample analysis (not standardized) Phoneme Severity Moderately Impaired Word Severity Moderately Impaired Sentence Severity Mildly Impaired Comments Frequent breaths required to complete sentences of moderate length Conversation Severity Moderately Impaired Comments ~56% intelligible. 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 Speech intelligibility is significantly reduced (48-56% intelligibility to somewhat familiar listener, varying upon speech tasks). Skilled intervention is medically necessary to increase muscular strength to improve breath support for voice and speech and improve speech intelligibility in order that the pt may communicate effectively in his functional environment and maintain highest level of communicative independence. Prognosis Rehabilitation Potential Good Recommendations Treatment Recommended Yes Frequency 1x/wk for 8 wks Therapy Recommendations Oral motor and respiratory muscle strength exercises Short Term Goals 1. The pt will perform diaphragmatic breathing with 80% in structured therapeutic tasks to increase breath support for speech, voice, and swallow. 2. The pt will sustain vowel phonation for 10 seconds on a single breath with vocal quality WFL to increase breath support for speech and voice. 3. The pt will perform oral motor exercises to increase strength, coordination and ROM to improve speech intelligibility and oral prep/ swallow phases. 4. The pt will use strategies (e.g., over-articulation, modified speech rate, etc.) in 80% of opportunities during structured tasks to increase speech intelligibility. Prison Goals 1. Using speech strategies as needed, the pt will increase speech intelligibility to no less than 75% to unfamiliar listeners to increase his ability to communicate in his functional environment and maintain communicative independence. Patient/Family Education Education Described results of evaluation,Patient Understanding,Patient Needs More Info
--- NOTE | 2019-07-04 16:23 | ST.OPTN ---
Visit Care Team Role Provider Type Nargis Fernandez DO Primary Care Provider Physician Address: [address] [place] [address], [address], [place], [address] Maryann Lawrence MD Attending Provider Physician Address: [address] [place] [address], [place], [address] ECONOMIC CONSULTANT Treatment Note ECONOMIC CONSULTANT Treatment Note Start: 06/04/19 17:08 Freq: Status: Active Protocol: Document 07/04/19 16:10 ILDA (Rec: 07/04/19 16:11 ILDA [email or web address]) Speech Pathology Treatment Note Session Time Visit Start Time 12:30 Visit Stop Time 13:15 Total Visit Minutes 45 Visit Information Visit Number [id number] Plan of Care Dates 06/04/19 - 08/25/19 Insurance Information [facility] Setting Treatment Setting Outpatient Care Next Note Type Next Note Type Treatment Note General Information General Information Pt is a 39-yr-old male who has been wheelchair bound for the past 10 yrs. 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 The pt is familiar to this clinician from speech therapy from May-July 2015 targeting speech intelligibility. Recent medical records indicate pt/ family request for referral to speech therapy d/t slow progression of reduced speech intelligibility. Referral also indicates dsyphagia. The pt denies significant current dysphagia but endorses difficulty with foods such as peanuts and carrots that break into pieces and lodge in his airway, as well as fatigue with foods that require extensive chewing, such as steak. The pt stated, I've gotten better at swallowing. I kind of forgot how, but now I remember. He described occasional symptoms of food goes down the wrong pipe. The most recent episode was a little bit last week. The pt has experienced a significant weight loss since last seen at this clinic. He estimates a loss of ~100 lbs, which seems realistic. He reported this loss was intentional and not related to dysphagia. The pt's primary concern is difficulty producing clear speech and tendency to run out of breath when talking. Subjective Identification Type Name Observations/Patient Presentation Pt arrived on time. No new complaints. He apologized for missing last 2 appts. Stated he forgot about them but did confirm receiving reminder calls the days prior. Pt verbalized understanding of clinic no-show policies. Chief Complaint(s) Speech,Swallowing Rehab Expectation/Goals: Patient Goals Improve speech clarity and breath support for speech Patient Knowledge/Awareness of ECONOMIC CONSULTANT Role Good in Treatment Objective Short Term Goals 1. The pt will perform diaphragmatic breathing with 80% in structured therapeutic tasks to increase breath support for speech, voice, and swallow. 2. The pt will sustain vowel phonation for 10 seconds on a single breath with vocal quality WFL to increase breath support for speech and voice. 3. The pt will perform oral motor exercises to increase strength, coordination and ROM to improve speech intelligibility and oral prep/ swallow phases. 4. The pt will use strategies (e.g., over-articulation, modified speech rate, etc.) in 80% of opportunities during structured tasks to increase speech intelligibility. Corporate Pilot Goals 1. Using speech strategies as needed, the pt will increase speech intelligibility to no less than 75% to unfamiliar listeners to increase his ability to communicate in his functional environment and maintain communicative independence. Treatment Activities Trained pt in sustained phonation and counting exercises to increase breath support for speech. Pt exhibited inconsistent durations of sustained phonation from 3-7 sec. Able to count to 8 on single breath with consistent voicing. Occasional aphonation when counting to 9 and 10. Trained pt in exaggerated speech as compensatory speech intelligibility strategy. Pt counted to 10 with increased intelligibility when using strategy (~90% vs ~75% without strategy use). Developed Functional Phrases/Sentences list of statements the pt says most days (18 items). Pt produced 4 sentences using exaggerated speech and 2 breaths per statement with >90 % intelligibility. Pt unable to consistently produce sentences of up to 7 words on a single breath. Visual markers were added to sentences to indicate places to take breath. Reviewed HEP tasks with pt, who verbalized understanding and agreement to daily practice. Assessment Patient Response to Treatment Good Rehab Potential Good Impairments Identified Dysarthria,Dysphagia,Speech Intelligibility Progress Towards Goals Slow Progress Assessment of Overall Progress Improving Assessment of Improvement Pt exhibits significant reduced breath support for speech. Significantly improved speech intelligibility using exaggerated speech strategy. He continues to exhibit strong self-monitoring and correcting ability. Reviewed with Patient Goals,Progress Being Made,Home Exercise Program Patient/Caregiver Understanding Good Plan Length of Session 45 Minutes Therapeutic Contents Client Education,Home Exercise Program,Intelligibility,Oral Motor Training,Swallowing/ Feeding Provided Patient/Caregiver Instruction Home Exercise Program,Plan of Care,Questions/Concerns Therapy Recommendations Continue with Current Program
--- NOTE | 2019-07-10 13:02 | ST.OPTN ---
Visit Care Team Role Provider Type Nargis Fernandez DO Primary Care Provider Physician Address: [address] [place] [address], [address], [place], [address] Maryann Lawrence MD Attending Provider Physician Address: [address] [place] [address], [place], [address] BOTTLED BEVERAGE INSPECTOR Treatment Note BOTTLED BEVERAGE INSPECTOR Treatment Note Start: 06/04/19 17:08 Freq: Status: Active Protocol: Document 07/09/19 09:56 ILDA (Rec: 07/10/19 10:10 ILDA [email or web address]) Speech Pathology Treatment Note Session Time Visit Start Time 12:30 Visit Stop Time 13:15 Total Visit Minutes 45 Visit Information Visit Number 11/[id number] Plan of Care Dates 06/04/19 - 08/25/19 Insurance Information [facility] Setting Treatment Setting Outpatient Care Next Note Type Next Note Type Treatment Note General Information General Information Pt is a 39-yr-old male who has been wheelchair bound for the past 10 yrs. 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 The pt is familiar to this clinician from speech therapy from May-July 2015 targeting speech intelligibility. Recent medical records indicate pt/ family request for referral to speech therapy d/t slow progression of reduced speech intelligibility. Referral also indicates dsyphagia. The pt denies significant current dysphagia but endorses difficulty with foods such as peanuts and carrots that break into pieces and lodge in his airway, as well as fatigue with foods that require extensive chewing, such as steak. The pt stated, I've gotten better at swallowing. I kind of forgot how, but now I remember. He described occasional symptoms of food goes down the wrong pipe. The most recent episode was a little bit last week. The pt has experienced a significant weight loss since last seen at this clinic. He estimates a loss of ~100 lbs, which seems realistic. He reported this loss was intentional and not related to dysphagia. The pt's primary concern is difficulty producing clear speech and tendency to run out of breath when talking. Subjective Identification Type Name Observations/Patient Presentation Pt arrived on time. No new complaints. Reported daily compliance with HEP. Chief Complaint(s) Speech,Swallowing Rehab Expectation/Goals: Patient Goals Improve speech clarity and breath support for speech Patient Knowledge/Awareness of BOTTLED BEVERAGE INSPECTOR Role Good in Treatment Objective Short Term Goals 1. The pt will perform diaphragmatic breathing with 80% in structured therapeutic tasks to increase breath support for speech, voice, and swallow. 2. The pt will sustain vowel phonation for 10 seconds on a single breath with vocal quality WFL to increase breath support for speech and voice. 3. The pt will perform oral motor exercises to increase strength, coordination and ROM to improve speech intelligibility and oral prep/ swallow phases. 4. The pt will use strategies (e.g., over-articulation, modified speech rate, etc.) in 80% of opportunities during structured tasks to increase speech intelligibility. Back Roller Goals 1. Using speech strategies as needed, the pt will increase speech intelligibility to no less than 75% to unfamiliar listeners to increase his ability to communicate in his functional environment and maintain communicative independence. Treatment Activities Swallow: Consistent wet vocal quality observed in conversation and speech tasks, indicating reduced saliva management and airway protection. Pt perceived wet quality and reported c/o phlegm. When instructed to cough and swallow in order to clear the airway, the pt was unable to produce volitional cough d/t reduced respiratory strength. Spontaneous cough was produced x1 and was significantly weak and ineffective at clearing airway, increasing pt's risk of aspiration and/or choking. Breath support for speech: Maximum phonation time on single breath, 8 sec with harsh vocal quality. Pt able to count to 8 on single breath in 4/7 attempts (57% accuracy); to 6 with 100% acc. In conversation, pt produced up to 4 words on single breath, more typically 3 words. Speech Intelligibility: Using exaggerated speech technique as if someone was trying to read your lips, the pt read functional sentences with >90% intelligibility, mild effort required from listener. The pt was diligent in articulating all phonemes and to repeat words that did were not produced clearly, which tended to be words at the end of breath support. The pt exhibited good awareness and self-monitoring skills. In conversation, the pt required mod-max prompts to use exaggerated speech but was responsive to prompts, indicating need for reinforcement as well as stimulability for carryover. Without strategy, pt was ~80% intelligible with mod-max effort on part of the listener, demonstrating effectiveness of and need for strategy use. Skilled education and feedback was provided to the pt including recommendation of referral to Pulmonology/ Respiratory Therapy to assess and treat the pt's respiratory status, strength and control. The pt was in agreement with this. Assessment Patient Response to Treatment Good Rehab Potential Fair Impairments Identified Dysarthria,Dysphagia,Oral Motor,Speech Intelligibility, Vocal Quality,Other Additional Impairments Identified Breath support for speech and swallow/airway protection Progress Towards Goals Slow Progress Assessment of Overall Progress Improving Assessment of Improvement Pt exhibits significantly reduced breath support that results in weak vocal loudness and loss of breath in speech, both of which reduce speech intelligibility. Of greater concern, however, is the pt's poor ability to protect his airway, which increases his risk of aspiration and choking. Consistent wet vocal quality throughout the session indicates poor saliva management, further increasing this risk. Referral to Pulmonology/Respiratory Therapy is strongly recommended to assess and improve function for pt safety. Speech Pathology will continue to target breath support exercises; however, current function, prognosis for improvement, and targeted POC would be best identified by Pulmonology. The pt does exhibit significantly improved speech intelligibility using exaggerated speech strategy. He continues to exhibit strong self-monitoring and correcting ability, although carryover of strategy use is limited and requires further training. Reviewed with Patient Goals,Progress Being Made,Home Exercise Program Patient/Caregiver Understanding Good Plan Length of Session 45 Minutes Therapeutic Contents Client Education,Home Exercise Program,Intelligibility,Oral Motor Training,Swallowing/ Feeding,Other Provided Patient/Caregiver Instruction Home Exercise Program,Plan of Care,Questions/Concerns Therapy Recommendations Continue with Current Program Suggested Referral Pulmonology,Other Other Referrals Respiratory Therapy
--- NOTE | 2019-07-16 15:45 | ST.OPTN ---
Visit Care Team Role Provider Type Nargis Fernandez DO Primary Care Provider Physician Address: [address] [place] [address], [address], [place], [address] Maryann Lawrnece MD Attending Provider Physician Address: [address] [place] [address], [place], [address] [employer] Treatment Note [employer] Treatment Note Start: 06/04/19 17:08 Freq: Status: Active Protocol: Document 07/16/19 13:22 ILDA (Rec: 07/16/19 13:29 ILDA [id number]) Speech Pathology Treatment Note Session Time Visit Start Time 12:53 Visit Stop Time 13:20 Total Visit Minutes 27 Visit Information Visit Number 12/[id number] Plan of Care Dates 06/04/19 - 08/25/19 Insurance Information [facility] Setting Treatment Setting Outpatient Care Next Note Type Next Note Type Treatment Note General Information General Information Pt is a 39-yr-old male who has been wheelchair bound for the past 10 yrs. 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 The pt is familiar to this clinician from speech therapy from May-July 2015 targeting speech intelligibility. Recent medical records indicate pt/ family request for referral to speech therapy d/t slow progression of reduced speech intelligibility. Referral also indicates dsyphagia. The pt denies significant current dysphagia but endorses difficulty with foods such as peanuts and carrots that break into pieces and lodge in his airway, as well as fatigue with foods that require extensive chewing, such as steak. The pt stated, I've gotten better at swallowing. I kind of forgot how, but now I remember. He described occasional symptoms of food goes down the wrong pipe. The most recent episode was a little bit last week. The pt has experienced a significant weight loss since last seen at this clinic. He estimates a loss of ~100 lbs, which seems realistic. He reported this loss was intentional and not related to dysphagia. The pt's primary concern is difficulty producing clear speech and tendency to run out of breath when talking. Subjective Identification Type Name Observations/Patient Presentation Pt arrived late for appt. Reported that he almost forgot about it. He denied receiving reminder phone calls from the clinic. Confirmed phone number in pt chart is his mother's, and he does not live with his mother. He did not remember his own phone number. Requested pt bring phone number with him to next session so it can be added to his chart for reminder calls. Pt reported he uses a wall calendar to track appts but does not check it regularly. He agreed with [employer] recommendation to check calendar every morning and evening. Chief Complaint(s) Speech,Swallowing Rehab Expectation/Goals: Patient Goals Improve speech clarity and breath support for speech Patient Knowledge/Awareness of [employer] Role Good in Treatment Objective Short Term Goals 1. The pt will perform diaphragmatic breathing with 80% in structured therapeutic tasks to increase breath support for speech, voice, and swallow. 2. The pt will sustain vowel phonation for 10 seconds on a single breath with vocal quality WFL to increase breath support for speech and voice. 3. The pt will perform oral motor exercises to increase strength, coordination and ROM to improve speech intelligibility and oral prep/ swallow phases. 4. The pt will use strategies (e.g., over-articulation, modified speech rate, etc.) in 80% of opportunities during structured tasks to increase speech intelligibility. Fpc Goals 1. Using speech strategies as needed, the pt will increase speech intelligibility to no less than 75% to unfamiliar listeners to increase his ability to communicate in his functional environment and maintain communicative independence. Treatment Activities Discussed with pt RE clinic attendance policy. Pt was informed he has missed 2 of 3 allowed appts (no-shows). Consulted with him on ways to manage his schedule better. Made agreement as stated above to increase reference to wall calendar and attempt to have clinic call his home with reminders rather than his mother's number. Pt performed oral motor exercises in tandem with [employer], requiring mod verbal cues. Escape of air and saliva was observed at left side with lip strengthening exercises. Pt's awareness of performance improved with mirror use for self-monitoring. Trained pt in additional kissing-sound and lip smacking exercises to increase lip strength. Pt had some difficulty performing lip smacking task and more easily performed the kissing- sound, which was recommended for home practice. Given functional sentences/ phrases and instructions to use exaggerated speech strategy, the pt read sentences and phrases with ~88 % intelligibility, occasionally reduced clarity with multisyllabic words (e.g. , blackberry) and as breath support reduced. Pt was responsive to skilled feedback and able to modify speech to increase clarity. Assessment Patient Response to Treatment Good Rehab Potential Fair Impairments Identified Dysarthria,Dysphagia,Oral Motor,Speech Intelligibility, Vocal Quality,Other Additional Impairments Identified Breath support for speech and swallow/airway protection Progress Towards Goals Slow Progress Assessment of Overall Progress Improving Assessment of Improvement Pt continues to exhibit mod- severe weakness of oral musculature, particularly labial and buccal strength, allowing for labial leakage of air and saliva. Pt uses speech strategies well in structured tasks, reduced with spontaneous speech. Plan to incorporate tasks that increase carryover. Reviewed with Patient Goals,Progress Being Made,Home Exercise Program Patient/Caregiver Understanding Good Plan Length of Session 45 Minutes Therapeutic Contents Client Education,Home Exercise Program,Intelligibility,Oral Motor Training,Swallowing/ Feeding,Other Provided Patient/Caregiver Instruction Home Exercise Program,Plan of Care,Questions/Concerns Therapy Recommendations Continue with Current Program Suggested Referral Pulmonology,Other Other Referrals Respiratory Therapy
== END 2019-07-17 12:30 ==
LOC: SP 12:30
PROVIDERS: PCP Family Medicine; Visit Provider Hospitalist
DX: R13.10 Dysphagia, unspecified (principal)
CPT/HCPCS: 92507; 92522; 92610

== ENCOUNTER 2019-09-26 18:17 | Inpatient (IN) | payer MEDICAID, OTHER, SELFPAY ==
[2018-10-12 18:23] VITALS: BMI 33.9
[2019-09-26 18:20] VITALS: BP 127/110; PULSE 130; RESP 32; TEMP 38.8; O2SAT 91; BMI 35.2
[2019-09-26 18:43] VITALS: PULSE 129; RESP 24; O2SAT 96
[2019-09-26] MEDS: ALBUTEROL 2.5 MG/3 ML NEB (ADULT) INH (18:43)
--- NOTE | 2019-09-26 18:44 | DI.RAD.S_ITS ---
PROCEDURE: XR CHEST 1V INDICATIONS: eval for PNA TECHNIQUE: One view of the chest was acquired. COMPARISON: Merged With [facility], CR, XR CHEST 2V, 01/15/2019, 13:31. Merged With [facility], CR, XR CHEST 1V, 10/12/2018, 14:39. FINDINGS: Surgical changes and devices: None. Lungs and pleura: Lungs are abnormal, with new mild to moderate pneumonia involving the left mid and lower lung. No pleural effusions or pneumothorax. Mediastinum: Mediastinal contours appear normal. Heart size is normal. Bones and chest wall: No suspicious bony lesions. Overlying soft tissues appear unremarkable. IMPRESSION: New left lung pneumonia through the middle and lower thirds, without effusion. Dictated by: Gordo Neves M.D. on 09/26/2019 at 19:23 Approved by: Gordo Neves M.D. on 09/26/2019 at 19:23
[2019-09-26] MEDS: SODIUM CHLORIDE 0.9% 1,000 ML 1000 ML IV (18:56)
--- NOTE | 2019-09-26 19:04 | ED.GENADULT ---
HPI - General Adult General Chief complaint: Shortness of Breath/Dyspnea Stated complaint: Cold/flu symptoms several days Time Seen by Provider: 09/26/19 18:36 Source: patient and other Mode of arrival: Wheelchair Limitations: physical limitation History of Present Illness HPI narrative: Patient is a 39-year-old male. Mentally and physically delayed secondary to a childhood [employer] tumor and subsequent treatments for this. Has right-sided weakness at baseline. His problems speaking at baseline. He is here with his mother. He is wheelchair bound. Does live independently but has caretakers with him. Patient's mother states that the patient has not been feeling well for the past couple days however has worsened over the past 24 hours. Has had fever. Coughing. Increased sputum production. Patient denies any abdominal pain. No new rashes. Patient's inpatient pharmacist states that he does have a rash on his buttocks but this is not new. At baseline he does use a urinal at home. Does not have a catheter in place. Patient denies any urinary symptoms. Denies any chest pain. Denies any abdominal pain. No headache. Related Data Home Medications Medication Instructions Recorded Confirmed latanoprost 1 drp EYE-BOTH BEDTIME 09/18/18 05/09/19 Previous Rx's Medication Instructions Recorded Battery Powered Lift #1 ea 03/02/18 Power Chair #1 ea 10/16/18 Semi-electric hospital bed #1 ea 11/17/18 Disabled Parking #1 each 01/15/19 nystatin 100,000 unit/gram topical 1 applictn TOP QID #15 gram 01/15/19 powder Shower Chair #1 ea 07/04/19 Allergies Allergy/AdvReac Type Severity Reaction Status Date / Time Penicillins [PENICILLINS] Allergy Severe RASH Verified 09/26/19 18:43 Review of Systems Review of Systems Narrative: Provided by patient and mother and patient's inpatient pharmacist Constitutional Constitutional: Reports fatigue, Reports fever(s), Denies headache(s) and Reports malaise ENT Ears, Nose, Mouth, and Throat: Denies headache(s) and Denies sore throat Cardiovascular Cardiovascular: Denies chest pain Respiratory Respiratory: Reports cough and Reports excessive phlegm production Gastrointestinal Gastrointestinal: Denies abdominal pain, Denies nausea and Denies vomiting Genitourinary Genitourinary: Denies dysuria Musculoskeletal Musculoskeletal: Denies myalgias and Denies arthralgias Integumentary/Breasts Comments: Rash on the buttocks Neurologic Neurologic: Denies behavioral changes and Denies headache(s) Psychiatric Psychiatric: Denies behavioral changes Endocrine Endocrine: Reports fatigue Hematologic/Lymphatic Hematologic/Lymphatic: Denies easy bleeding and Denies easy bruising Allergic/Immunologic Allergic/Immunologic: Denies urticaria Patient History Medical History Depression (Chronic) Glioma (Chronic) Hemiparesis (Chronic ~1984) Social History marital status: unmarried,single household members: family, caregiver and none Smoking Status: Former smoker alcohol intake: never substance use type: marijuana Smoking Status: Former smoker alcohol intake frequency: 0-2 drinks per day Substance Use Type: marijuana Exam Initial Vital Signs Initial Vital Signs: Vital Signs Temperature 101.9 F H 09/26/19 18:20 Pulse Rate 130 H 09/26/19 18:20 Respiratory Rate 32 H 09/26/19 18:20 Blood Pressure 127/110 H 09/26/19 18:20 Pulse Oximetry 91 09/26/19 18:20 Const General: cooperative, comfortable and well developed Limitations: mental status not altered (At baseline per mother) HENMT Head: normal to inspection and normocephalic Resp Effort & Inspection: cough, no respiratory distress, no retractions, tachypneic and no use of accessory muscles Auscultation: rhonchi Cardio Rate: tachycardic Rhythm: regular rhythm GI Inspection: non-distended Palpation: soft and No tender Penis: normal penis Skin Other: Patient with a quarter-size area of non blanchable redness on the right superior buttocks. No breaks in the skin. Neuro Other: Right-sided weakness this is not new. Is alert and oriented. Does have some problems speaking but I am able to understand some of what he is saying. His mother who knows his gestures and how he talks provided some ?translation ?. At baseline neurologic status per patient's mother Extrem General: capillary refill normal and No edema Psych Appearance: grossly normal and well kempt Scores GCS Olvin coma scale eye opening: Spontaneous Olvin coma scale verbal response: Orientated Olvin coma scale motor response: Obey commands Olvin coma scale total score: 15 Course Orders Ordered: ED Orders 09/26/19 18:34 Influenza A & B (PCR) Stat 09/26/19 18:44 XR chest 1V Stat EKG-12 Lead Stat 09/26/19 18:55 Sputum Culture Stat 09/26/19 18:56 Complete Blood Count AUTO DIFF Stat Comprehensive Metabolic Panel Stat Lactate (Lactic Acid) Stat Lipase Stat Procalcitonin Stat 09/26/19 19:40 Blood Culture Stat Discontinued Medications Acetaminophen (Tylenol) 650 mg PO NOW ONE Stop: 09/26/19 18:46 Last Admin: 09/26/19 19:00 Dose: Not Given Documented by: YAYA Albuterol (Ventolin) 2.5 mg INH NOW ONE Stop: 09/26/19 18:40 Last Admin: 09/26/19 18:43 Dose: 2.5 mg Documented by: GAEL Sodium Chloride (Normal Saline 0.9%) 1,000 mls @ 1,000 mls/hr IV BOLUS ONE Stop: 09/26/19 19:42 Last Infusion: 09/26/19 19:59 Dose: 0 mls/hr Documented by: Admin: 09/26/19 18:56 Dose: 1,000 mls/hr Documented by: YAYA Levofloxacin (Levaquin) 750 mg in 150 mls @ 100 mls/hr IV NOW ONE Stop: 09/26/19 20:35 Last Infusion: 09/26/19 20:54 Dose: 0 mls/hr Documented by: Admin: 09/26/19 19:18 Dose: 100 mls/hr Documented by: ADALBERTO Vital Signs Vital signs: Vital Signs - 8 hr 09/26/19 18:20 09/26/19 18:43 09/26/19 19:49 Temperature 101.9 F H Pulse Rate 130 H 129 H 120 H Respiratory Rate 32 H 24 29 H Blood Pressure 127/110 H Blood Pressure [Right Arm] 151/120 H Pulse Oximetry 91 96 99 09/26/19 20:30 Temperature Pulse Rate 122 H Respiratory Rate 26 H Blood Pressure Blood Pressure [Right Arm] 138/102 H Pulse Oximetry 96 Medical Decision Making Medical Records Medical records reviewed: Yes I reviewed the patient's medical records. Lab Data Lab results reviewed: Yes I reviewed the patient's lab results. Result diagrams: 09/26/19 18:56 09/26/19 18:56 Labs: Lab Results 09/26/19 09/26/19 09/26/19 Range/Units 18:34 18:56 18:56 WBC 19.0 H (4.5-11.0) X10^3/uL RBC 4.84 (4.5-5.9) X10^6/uL Hgb 13.1 L (13.5-17.5) g/dL Hct 38.9 L (41-53) % MCV 80.5 (80-100) fL MCH 27.0 (26-34) PG MCHC 33.6 (30-36) % RDW 14.6 (11.6-14.8) % Plt Count 477 H (150-400) X10^3/uL Neut % (Auto) 82.0 H (50-75) % Lymph % (Auto) 11.7 L (25-40) % [place] % (Auto) 5.3 (3-14) % Eos % (Auto) 0.3 L (2-4) % Baso % (Auto) 0.7 (0-2) % Neut # (Auto) 33615 H (6536-6203) /uL Lymph # (Auto) 2200 (4812-1734) /uL [place] # (Auto) 1000 H (0-900) /uL Eos # (Auto) 100 (0-450) /uL Baso # (Auto) 100 (0-100) /uL Sodium (137-145) mmol/L Potassium (3.4-5.1) mmol/L Chloride (98-107) mmol/L Carbon Dioxide (22-32) mmol/L BUN (9-20) mg/dL Creatinine (0.66-1.25) mg/dL Estimated GFR (>60) mL/min BUN/Creatinine Ratio (6-22) Glucose (70-100) mg/dL Lactate (0.7-2.1) mmol/L Calcium (8.4-10.2) mg/dL Total Bilirubin (0.2-1.3) mg/dL AST (17-59) IU/L ALT (<50) IU/L Alkaline Phosphatase (38-126) U/L Total Protein (6.3-8.2) g/dL Albumin (3.5-5.0) g/dL Globulin (1.7-4.1) g/dL Albumin/Globulin Ratio (1.0-2.8) Lipase (23-300) U/L Procalcitonin 0.14 (<0.5) ng/mL Influenza A (RT-PCR) Flu a negative (NEGATIVE) Influenza B (RT-PCR) Flu b negative (NEGATIVE) 09/26/19 09/26/19 Range/Units 18:56 18:56 WBC (4.5-11.0) X10^3/uL RBC (4.5-5.9) X10^6/uL Hgb (13.5-17.5) g/dL Hct (41-53) % MCV (80-100) fL MCH (26-34) PG MCHC (30-36) % RDW (11.6-14.8) % Plt Count (150-400) X10^3/uL Neut % (Auto) (50-75) % Lymph % (Auto) (25-40) % [place] % (Auto) (3-14) % Eos % (Auto) (2-4) % Baso % (Auto) (0-2) % Neut # (Auto) (0768-6344) /uL Lymph # (Auto) (8988-1321) /uL [place] # (Auto) (0-900) /uL Eos # (Auto) (0-450) /uL Baso # (Auto) (0-100) /uL Sodium 135 L (137-145) mmol/L Potassium 4.2 (3.4-5.1) mmol/L Chloride 100 (98-107) mmol/L Carbon Dioxide 24 (22-32) mmol/L BUN 9 (9-20) mg/dL Creatinine 0.60 L (0.66-1.25) mg/dL Estimated GFR > 60.0 (>60) mL/min BUN/Creatinine Ratio 15.0 (6-22) Glucose 94 (70-100) mg/dL Lactate 1.8 (0.7-2.1) mmol/L Calcium 9.8 (8.4-10.2) mg/dL Total Bilirubin 1.0 (0.2-1.3) mg/dL AST 22 (17-59) IU/L ALT 11 (<50) IU/L Alkaline Phosphatase 137 H (38-126) U/L Total Protein 8.2 (6.3-8.2) g/dL Albumin 4.6 (3.5-5.0) g/dL Globulin 3.6 (1.7-4.1) g/dL Albumin/Globulin Ratio 1.3 (1.0-2.8) Lipase 61 (23-300) U/L Procalcitonin (<0.5) ng/mL Influenza A (RT-PCR) (NEGATIVE) Influenza B (RT-PCR) (NEGATIVE) Imaging Data Chest x-ray: Radiologist's Impression: [address] [address] XRay Report Signed Patient: Jonnie Christopher JMR#: [id number] : 1980Acct:[id number] Age/Sex: 39 / MDate of Service: 09/26/19 Loc: ED Accession Number: [id number] Procedure: XR chest 1V Ordering Provider: Norman Perrin D.O. PROCEDURE: XR CHEST 1V INDICATIONS: eval for PNA TECHNIQUE: One view of the chest was acquired. COMPARISON: [facility], CR, XR CHEST 2V, 01/15/2019, 13:31. [facility], CR, XR CHEST 1V, 10/12/2018, 14:39. FINDINGS: Surgical changes and devices: None. Lungs and pleura: Lungs are abnormal, with new mild to moderate pneumonia involving the left mid and lower lung. No pleural effusions or pneumothorax. Mediastinum: Mediastinal contours appear normal. Heart size is normal. Bones and chest wall: No suspicious bony lesions. Overlying soft tissues appear unremarkable. IMPRESSION: New left lung pneumonia through the middle and lower thirds, without effusion. Dictated by: Gordo Neves M.D. on 09/26/2019 at 19:23 Approved by: Gordo Neves M.D. on 09/26/2019 at 19:23 ECG Data Attestation: I personally reviewed and interpreted this ECG as follows: Prior ECG tracings: not available for review Interpretation: Sinus tachycardia Ventricular rate of 122 Normal axis Normal QRS Normal QTC No ST T wave changes MDM Narrative Medical decision making narrative: At baseline neurologic status. Was tachycardic and tachypneic had febrile upon arrival. He was never hypotensive. Received 1 nebulizer treatment here in the ER which really did not improve much his symptoms. He was suctioned. A sputum sample was sent. He was provided 3 L of oxygen by nasal cannula secondary to hypoxia to the upper 80s. Patient states that this improved his symptoms. Chest x-ray is concerning for pneumonia. Lactates unremarkable. Procalcitonin only slightly elevated. Does have a leukocytosis. Fluids were provided. Antibiotics administered. Discussed the case with night nurse practitioner who accepts the patient for admission. Discussed the admission with the patient and his mother who expressed understanding and agreement. Discharge Plan Departure Patient Disposition: Admitted As Inpatient Clinical Impression: Pneumonia Qualifiers: Pneumonia type: due to unspecified organism Laterality: left Lung location: lower lobe of lung Qualified Code(s): J18.9 - Pneumonia, unspecified organism Discharge Date/Time: 09/26/19 20:54 Admit Date/Time: 09/26/19 20:41 Admit Provider: Seda Gonzalez
[2019-09-26 19:07] LABS: Add Manual Diff / Slide Review NO; Basophils Absolute Auto 100 /uL (0-100); Basophils Percent Auto 0.7 % (0-2); Eosinophils Absolute Auto 100 /uL (0-450); Eosinophils Percent Auto 0.3 % (2-4); Hematocrit 38.9 % (41-53); Hemoglobin 13.1 g/dL (13.5-17.5); Lymphocytes Absolute Auto 2200 /uL (1100-4500); Lymphocytes Percent Auto 11.7 % (25-40); Mean Corpuscular HGB Conc 33.6 % (30-36); Mean Corpuscular Volume 80.5 fL (80-100); Monocytes Absolute Auto 1000 /uL (0-900); Monocytes Percent Auto 5.3 % (3-14); Neutrophils Absolute Auto 15600 /uL (1500-7000); Platelet Count 477 X10^3/uL (150-400); Red Blood Cell Count 4.84 X10^6/uL (4.5-5.9); Red Cell Distribution Width 14.6 % (11.6-14.8)
[2019-09-26] MEDS: levoFLOXacin 750 MG/150 ML PIGGYBACK 100 MG IV (19:18)
[2019-09-26 19:19] LABS: Influenza A - CEPHEID Flu A NEGATIVE (NEGATIVE); Influenza B - CEPHEID Flu B NEGATIVE (NEGATIVE)
[2019-09-26 19:21] LABS: Alanine Aminotransferase 11 IU/L (<50); Albumin 4.6 g/dL (3.5-5.0); Albumin Globulin Ratio 1.3 (1.0-2.8); Alkaline Phosphatase 137 U/L (38-126); Aspartate Aminotransferase 22 IU/L (17-59); Blood Urea Nitrogen 9 mg/dL (9-20); Calcium 9.8 mg/dL (8.4-10.2); Carbon Dioxide 24 mmol/L (22-32); Chloride 100 mmol/L (98-107); Estimated Glomerular Filt Rate > 60.0 mL/min (>60); Globulin 3.6 g/dL (1.7-4.1); Glucose 94 mg/dL (70-100); HEMOLYSIS < 15 (0-50); Lipase 61 U/L (23-300); Potassium 4.2 mmol/L (3.4-5.1); Sodium 135 mmol/L (137-145); Total Protein 8.2 g/dL (6.3-8.2)
[2019-09-26 19:22] LABS: Lactate (Lactic Acid) 1.8 mmol/L (0.7-2.1)
[2019-09-26 19:47] LABS: Procalcitonin 0.14 ng/mL (<0.5)
[2019-09-26 19:49] VITALS: BP 151/120; PULSE 120; RESP 29; O2SAT 99
[2019-09-26 20:30] VITALS: BP 138/102; PULSE 122; RESP 26; O2SAT 96
[2019-09-26 21:00] VITALS: BP 136/100; PULSE 131; RESP 36; TEMP 37.7; O2SAT 94
[2019-09-26 21:10] VITALS: BMI 21.9
[2019-09-26 22:00] VITALS: BP 131/88; PULSE 115
--- NOTE | 2019-09-26 22:30 | PC.NURSE ---
2015 -Pt to room from ER, transfer to bed via slider board. Pt arrived on 3L NC however sats decreased to 82% following activity. Weak cough with a stridorous airway effort with secretions cannot be cleared. Changed to HFNC increased to 8L, Oral suction, Oral care. Secretions persist. Pt agree to NT suctioning. Small amount of thick white secretions. Pt with garbled, difficult to comprehend speech. Family assisted with admission question prior to departure. Pt lives alone. He has caregivers Tuesday through Tuesday from 04-21 and 12-28. He is ashley lift and wheelchair bound. Family reports that pt is currently scheduled for a sleep study as an outpatient. Able to use urinal at home, however buttock is excoriated and erythemic. Stage II to gluteal cleft and non-blanchable erythema surrounding. Photos take. Barrier cream available. Pt with contracture to RUE. Hand painful to ROM, denies pain at rest. No movement to RLE. Bilateral LE rigid. Oriented to room and routine. 2100 - O2 titrated back down to 4L, sats 93%, RR 30. Hospitalist notified of pt arrive and need for NT suction upon arrive.
--- NOTE | 2019-09-26 23:05 | P.HP_ITS ---
History of Present Illness History of Present Illness Date Patient Seen: 09/26/19 Time Patient Seen: 23:05 Chief complaint: Cold/flu symptoms several days Narrative: The patient is a 39-year-old male with PMH significant for inoperable glioma (at age 5, s/p radiation w/ residual right hemiparesis), dysarthria (non-cerebrovascular event related), cognitive impairment / developmental delay, prior tobacco use, and THC use Patient presented with a 3-5 day history of worsening shortness of breath. Associated symptoms include fever, headache, cough w/ purulence, and generalized malaise. Patient himself denies chest pain, palpitations, dizziness or lig htheadedness. He has not experienced abdominal pain, nausea, vomiting or diarrhea. No reported dysuria or change in pattern of micturition. No specific exacerbating or remitting factors noted. At baseline, patient has fairly stable health status. He has underlying developmental delay and side effects from an operable glioma and associated treatment, which include right hemiparesis, dysarthria, and degree of cognitive impairment. He is on two outpatient medications. Patient lives independently. His wheelchair and Carlos Alberto lift bound. He has a dental technician apprentice that attends to him for a certain time interval twice a day, Tuesday through Tuesday. Patient's mother is also source of significant support. Patient has been vaccinated for influenza for the current season. ED presentation & work-up Febrile, tachycardic, and tachypneic. At baseline known to be on room air, he required supplemental O2 support. Labs 09/26/19, 1856 WBC 19 Lactate 1.8 PCT 0.14 Influenza A/B negative Plt 477 Hgb 13.1 Hct 38.9 Na 135, K 4.2, Cl 100, CO2 24, BUN 9, Cr 0.6, Glu 94 Ca 9.8 Alb 4.6 AST 22 ALT 11 Alk Phos 137 T.Bili 1.0 Lipase 61 MRSA positive CXR. Lungs are abnormal, with new mild to moderate pneumonia involving the left mid and lower lung. No pleural effusions or pneumothorax. no cardiomegaly. In ED patient was treated with albuterol treatment (1842), 1 L NS bolus (1855), and levofloxacin 750 mg IV (1917) Patient History Medical History Depression (Chronic) Glioma (Chronic) Hemiparesis (Chronic ~1984) Surgical History (Updated 09/27/19 @ 05:09 by MANJULA Lopez) Status post radiation therapy (Acute) Family & Social History Family History Mother No problems noted. Father No problems noted. Social History: household members patient lives independently. Has a caregiver that attends to him twice daily for designated period of time, Tuesday through Tuesday. Prior Living Arrangements Apartment/Condo Safety & Behavioral: Feels Safe in Current Yes Environment Been Physically Hurt or No Threatened By a Person Suicidal Ideation Description None Tobacco & Substance use: Smoking Status Former smoker alcohol intake never alcohol intake frequency 0-2 drinks per day Substance Use Type marijuana Meds Home Medications and Allergies Home Medications Medication Instructions Recorded Confirmed Type Battery Powered Lift #1 ea 03/02/18 05/09/19 Rx latanoprost 1 drp EYE-BOTH BEDTIME 09/18/18 05/09/19 History Power Chair #1 ea 10/16/18 05/09/19 Rx Semi-electric hospital bed #1 ea 11/17/18 05/09/19 Rx Disabled Parking #1 each 01/15/19 05/09/19 Rx nystatin 100,000 unit/gram topical 1 applictn TOP QID #15 gram 01/15/19 05/09/19 Rx powder Shower Chair #1 ea 07/04/19 Rx Allergies Allergy/AdvReac Type Severity Reaction Status Date / Time Penicillins [PENICILLINS] Allergy Severe RASH Verified 09/26/19 18:43 Review of Systems Review of Systems ROS Unobtainable: All systems reviewed & are unremarkable except as noted in HPI and below Exam Vital Signs (past 8 hours): - 09/26/19 18:20 09/26/19 18:43 09/26/19 19:49 Temperature 101.9 F H Pulse Rate 130 H 129 H 120 H Respiratory Rate 32 H 24 29 H Blood Pressure 127/110 H Blood Pressure [Right Arm] 151/120 H Pulse Oximetry 91 96 99 09/26/19 20:30 09/26/19 21:00 09/26/19 22:00 Temperature 99.9 F H Pulse Rate 122 H 131 H 115 H Respiratory Rate 26 H 36 H Blood Pressure 136/100 H 131/88 Blood Pressure [Right Arm] 138/102 H Pulse Oximetry 96 94 Oxygen Delivery Method High Flow Nasal Cannula Oxygen Flow Rate 4 Narrative Exam Narrative: Constitutional: in moderate respiratory distress, audible grunting sounds patient c/o a headache Neurologic: Awake and alert. Oriented to self. He is aware of being in the hospital. Right hemiparesis. Dysarthria. Head: NC, AT Eyes: PERRL, EOMI, sclerae anicteric Ears: external ears normal Nose: external nose normal, no rhinorrhea or epistaxis Throat: Dry MM, oropharynx w/o exudate, sub-optimal oral hygiene Neck: no masses, lymphadenopathy, or JVD Chest / Respiratory: Labored respiratory effort, tachypnea, no accessory muscle use Coarse left lobe. Upper airway audible congestion /audible grunting On supplemental oxygen Weak cough, difficulty managing secretions Heart / CV: S1S2, tachycardic HR 110-120s on monitor no murmur Abdomen / GI: round, NT, ND, + BS, no organomegaly : no suprapubic tenderness, no CVA, no Jones catheter Peripheral / Vascular: warm to touch, DP and PT pulses palpable, no edema Musc: Right hemiparesis, LLE weak / no movement noted Diminished muscle tone / atrophy of bilateral lower extremities Skin: no ecchymosis or suspicious lesions / ulcers; pale Stage II pressure ulcer in the gluteal cleft (+ break in skin) with surrounding maceration, non blanchable Objective Labs Result Diagrams: 09/26/19 18:56 09/26/19 18:56 Labs: Laboratory Results - last 24 hr 09/26/19 09/26/19 09/26/19 18:34 18:56 18:56 WBC 19.0 H RBC 4.84 Hgb 13.1 L Hct 38.9 L MCV 80.5 MCH 27.0 MCHC 33.6 RDW 14.6 Plt Count 477 H Neut % (Auto) 82.0 H Lymph % (Auto) 11.7 L [place] % (Auto) 5.3 Eos % (Auto) 0.3 L Baso % (Auto) 0.7 Neut # (Auto) 73277 H Lymph # (Auto) 2200 [place] # (Auto) 1000 H Eos # (Auto) 100 Baso # (Auto) 100 Sodium Potassium Chloride Carbon Dioxide BUN Creatinine Estimated GFR BUN/Creatinine Ratio Glucose Lactate Calcium Total Bilirubin AST ALT Alkaline Phosphatase Total Protein Albumin Globulin Albumin/Globulin Ratio Lipase Procalcitonin 0.14 Nasal Screen MRSA (PCR) Influenza A (RT-PCR) Flu a negative Influenza B (RT-PCR) Flu b negative 09/26/19 09/26/19 09/26/19 18:56 18:56 20:30 WBC RBC Hgb Hct MCV MCH MCHC RDW Plt Count Neut % (Auto) Lymph % (Auto) [place] % (Auto) Eos % (Auto) Baso % (Auto) Neut # (Auto) Lymph # (Auto) [place] # (Auto) Eos # (Auto) Baso # (Auto) Sodium 135 L Potassium 4.2 Chloride 100 Carbon Dioxide 24 BUN 9 Creatinine 0.60 L Estimated GFR > 60.0 BUN/Creatinine Ratio 15.0 Glucose 94 Lactate 1.8 Calcium 9.8 Total Bilirubin 1.0 AST 22 ALT 11 Alkaline Phosphatase 137 H Total Protein 8.2 Albumin 4.6 Globulin 3.6 Albumin/Globulin Ratio 1.3 Lipase 61 Procalcitonin Nasal Screen MRSA (PCR) Positive for mrsa H Influenza A (RT-PCR) Influenza B (RT-PCR) Assessment & Plan Assessment & Plan narrative: Patient is being admitted under inpatient status to the ICU for acute respiratory failure and left lower lobe pneumonia Acute respiratory failure with hypoxia, present on admission, active - suspected to be in the setting of pneumonia - CXR. New mild to moderate pneumonia involving the left mid and lower lung. - Started on levofloxacin, first dose given in ED - Consult RT / RATE - Albuterol Nebs Q6H - Chest physiotherapy, flutter valve, IS - Nasopharyngeal suction as needed - Supplemental O2, prn, titrate to keep SpO2 > 92% - NPO, aspiration precautions Left lower lobe pneumonia, acute, present on admission, active - PNA community acquired DDx: atypical vs aspiration, vs viral - CXR. New mild to moderate pneumonia involving the left mid and lower lung. - Influenza A/B negative, WBC 19, PCT 0.14, Lactate 1.8. 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 Pending results of blood and sputum cx, may need to have vanco added. - Antibiotic therapy w/ levofloxacin 750 mg IV at this time - See POC for 'acute respiratory failure with hypoxia' Sepsis, acute, with acute hypoxic respiratory failure WIHOUT septic shock, present on admission, active - Questionable sepsis... Left mid and lower lobe PNA + acute respiratory failure and hypoxia - WBC 19, lactate 1.8 PCT 0.14, Flu A/B negative, + SIRS... DDx: viral PNA / viral etiology vs atypical PNA vs aspiration PNA will check RVP, trend PCT (repeat in am), urine AGs - Blood Cx and sputum cx collected in ED, pending - Additional labs: UA - Started on empiric therapy with levofloxacin Dysphagia, acute, present on admission, active - baseline dysarthria - dysphagia, new, but tends to happen when patient is ill - keep NPO for now, IVF w/ D5 NS @ 100 ml/hr - consider swallow / speech eval prior to discharge Hyponatremia, acute, present on admission, active - Multifactorial: Diminished appetite, hypermetabolic state, underlying infection - Received 1L NS bolus in ED - Start on maintenance IVF D5 w/ NS at 100 ml/hr - Trend I/Os Headache, acute, present on admission, active - Toradol 15 gm IV x1 Decubitus Pressure Ulcer (stage II), subacute, present on admission, active - Picture captured by nurses to scan to chart - Off load, turn patient Q2H - Cleanse affected area daily and when soiled. Add additional protection w/ mepilex. Full code. Surrogate decision maker: Marianela Muñiz VTE prophylaxis with SCDs, lovenox Quality VTE Deep Vein Thrombosis/Pulmonary Embolism Present on Admission: No
[2019-09-26 23:51] LABS: Adenovirus Not Detected (Not Detect); Bordetella pertussis Not Detected (Not Detect); Chlamydophila pneumoniae Not Detected (Not Detect); Coronavirus 229E Not Detected (Not Detect); Coronavirus HKU1 Not Detected (Not Detect); Coronavirus NL 63 Not Detected (Not Detect); Coronavirus OC43 Not Detected (Not Detect); Human Metapneumovirus Not Detected (Not Detect); Human Rhinovirus/Enterovirus Not Detected (Not Detect); Influenza A Not Detected (Not Detect); Influenza B Not Detected (Not Detect); Mycoplasma pneumoniae Not Detected (Not Detect); Parainfluenza Virus 1 Not Detected (Not Detect); Parainfluenza Virus 2 Not Detected (Not Detect); Parainfluenza Virus 3 Not Detected (Not Detect); Parainfluenza Virus 4 Not Detected (Not Detect); Respiratory Syncytial Virus Not Detected (Not Detect)
[2019-09-27] VITALS (16 sets, daily range): BP systolic 106–129; BP diastolic 70–92; PULSE 99–120; RESP 20–33; TEMP 36.7–37.8; O2SAT 94–100
[2019-09-27] MEDS: DEXTROSE 5%-0.9% NS 1,000 ML 100 ML IV ×2 (00:14→12:52)
[2019-09-27] MEDS: KETOROLAC 15 MG/ML VIAL IV (00:24)
[2019-09-27 04:41] LABS: Bacteria Urine None Seen; RBC Urine None Seen (0-5/HPF); WBC Urine None Seen (0-5/HPF)
[2019-09-27 05:01] LABS: Bilirubin Urine UA 1+ (NEGATIVE); Color Urine UA YELLOW; Glucose Urine UA NEGATIVE (Negative); Ketones Urine UA 2+ (NEGATIVE); Leukocyte Esterase Urine UA NEGATIVE (NEGATIVE); Nitrite Urine UA NEGATIVE (Negative); Occult Blood Urine UA NEGATIVE (Negative); Protein Urine UA 1+ (Negative); Specific Gravity Urine UA >=1.030 (1.000-1.035); Urobilinogen Urine UA 0.2 E.U./dL (0.2); pH Urine UA 5.5 (4.5-8.0)
[2019-09-27 05:31] LABS: Appearance Urine UA CLOUDY; Ictotest Urine Negative (Negative)
[2019-09-27 05:32] LABS: Amorphous Sediment Urine 4+; Culture Indicated Urine Cult Not Indicated
--- NOTE | 2019-09-27 06:38 | PC.NURSE ---
Pickup Driver Note-Patient is oriented to person, place, and situation, speech impaired at baseline, tearful intermittently. Weak loose cough, sometimes stridorous. SpO2 >94% on 4L HFNC, lung sounds very diminished Lt. ST 100-110. Afebrile. IV Toradol x1 at midnight. D5NS @ 100ml/hr, NPO. UA sent. Incontinent. Turned Q2h, also uses bed control on own.
[2019-09-27] MEDS: ALBUTEROL 2.5 MG/3 ML NEB (ADULT) INH ×3 (07:54→18:57)
[2019-09-27 09:00] LABS: Hematocrit 38.2 % (41-53); Hemoglobin 12.8 g/dL (13.5-17.5); Mean Corpuscular HGB Conc 33.5 % (30-36); Mean Corpuscular Hemoglobin 26.9 PG (26-34); Mean Corpuscular Volume 80.2 fL (80-100); Platelet Count 421 X10^3/uL (150-400); Red Blood Cell Count 4.76 X10^6/uL (4.5-5.9); Red Cell Distribution Width 14.5 % (11.6-14.8); White Blood Cell Count 18.9 X10^3/uL (4.5-11.0)
[2019-09-27 09:35] LABS: Procalcitonin 0.25 ng/mL (<0.5)
[2019-09-27 09:48] LABS: Blood Urea Nitrogen 8 mg/dL (9-20); Calcium 8.9 mg/dL (8.4-10.2); Carbon Dioxide 24 mmol/L (22-32); Chloride 105 mmol/L (98-107); Estimated Glomerular Filt Rate > 60.0 mL/min (>60); Glucose 103 mg/dL (70-100); HEMOLYSIS < 15 (0-50); Potassium 3.8 mmol/L (3.4-5.1); Sodium 137 mmol/L (137-145)
--- NOTE | 2019-09-27 10:22 | CM.DANOTE ---
DCP: Case received, EMR reviewed. Called patient's mother, Marianela Paulino via phone to obtain baseline history and care needs. Introduced self and role over the phone. Was able to complete DCP assessment with information currently available. Patient is a 39 year old male who admitted yesterday evening to the care of the hospitalist team. PCP: Dr. Fernandez. Payer: confirmed: Medicaid/[facility]. Patient came to the hospital via family vehicle secondary to shortness of breath and coughing. Patient holds current diagnosis of left lower lobe Pneumonia. Patient has history of inoperable glioma, was diagnosed at 5 years of age. He also has right hemiperesis. He is wheel-chair bound, hoier lift for transfers. He also has history of cognitive impairment. Spoke to patient's mother, Marianela. She is very supportive. Confirmed that patient has [employer] caregivers come into the home twice a day, M-F. Mother helps the other days. The caregivers are through [facility]. He has assistance with showers, meals, toileting. They also have a wheel chair van that they use for transport. Patient does live alone. P: DCP to continue to follow closely for any needs. He should be able to return home when he is medically stable. Joan Polanco, RN/Company Laundry Worker
--- NOTE | 2019-09-27 11:28 | P.PN_ITS ---
Subjective Subjective Date Patient Seen: 09/27/19 Interval history: Patient is a 39-year-old male with a history of an arc probable glioma, status post radiation, chemotherapy with some cognitive impairment who was admitted to the hospital after 3 days of fever cough and shortness of breath. Patient was found to have community-acquired pneumonia and admitted to the hospital for further evaluation. Patient continues to have low-grade fever, he has no cough he does report some shortness of breath. His oxygenation is improved he is saturating well on room air. The patient does have known dysphagia. This apparently gets worse when he is sick. He has been made NPO and is pending a speech and swallow evaluation. His major complaint today is thirsty and desire to eat. Exam Vital Signs (past 8 hours): - 09/27/19 04:32 09/27/19 05:00 09/27/19 06:04 Temperature 98.5 F Pulse Rate 105 H 99 H 100 H Respiratory Rate 29 H 25 H 27 H Blood Pressure 115/82 106/73 110/77 Pulse Oximetry 100 97 96 09/27/19 07:00 09/27/19 07:59 09/27/19 08:47 Temperature Pulse Rate 99 H 101 H 114 H Respiratory Rate 24 24 Blood Pressure 125/84 Pulse Oximetry 100 100 94 Oxygen Delivery Method Nasal Cannula Oxygen Flow Rate 2 Narrative Exam Narrative: Ill-appearing male lying in bed Lungs: Decreased breath sounds bilaterally with no rhonchi crackles or wheezes Cardiac exam: Tachycardic, regular rate and rhythm, normal S1-S2 Abdomen: Soft nontender nondistended Extremities: No edema Objective Labs Result Diagrams: 09/27/19 08:25 09/27/19 08:25 Labs: Laboratory Results - last 24 hr 09/26/19 09/26/19 09/26/19 18:34 18:56 18:56 WBC 19.0 H RBC 4.84 Hgb 13.1 L Hct 38.9 L MCV 80.5 MCH 27.0 MCHC 33.6 RDW 14.6 Plt Count 477 H Neut % (Auto) 82.0 H Lymph % (Auto) 11.7 L [place] % (Auto) 5.3 Eos % (Auto) 0.3 L Baso % (Auto) 0.7 Neut # (Auto) 93900 H Lymph # (Auto) 2200 [place] # (Auto) 1000 H Eos # (Auto) 100 Baso # (Auto) 100 Sodium Potassium Chloride Carbon Dioxide BUN Creatinine Estimated GFR BUN/Creatinine Ratio Glucose Lactate Calcium Total Bilirubin AST ALT Alkaline Phosphatase Total Protein Albumin Globulin Albumin/Globulin Ratio Lipase Procalcitonin 0.14 Urine Color Urine Appearance Urine pH Ur Specific [place] Urine Protein Urine Glucose (UA) Urine Ketones Urine Occult Blood Urine Nitrate Urine Bilirubin Urine Ictotest Urine Urobilinogen Ur Leukocyte Esterase Urine RBC Urine WBC Amorphous Sediment Urine Bacteria Ur Culture Indicated? Nasal Screen MRSA (PCR) Chlamy pneumoniae PCR Adenovirus (PCR) B.parapertussis DNA PCR Coronavirus OC43 (PCR) Coronavirus HKU1 (PCR) Coronavirus 229E (PCR) Coronavirus NL63 (PCR) Human Metapneumovir PCR Influenza A (RT-PCR) Flu a negative Influenza Type A (PCR) Influenza B (RT-PCR) Flu b negative Influenza Type B (PCR) M. pneumoniae (PCR) Parainfluenza 1 (PCR) Parainfluenza 2 (PCR) Parainfluenza 3 (PCR) Parainfluenza 4 (PCR) RSV (PCR) Entero/Rhino (PCR) 09/26/19 09/26/19 09/26/19 18:56 18:56 20:30 WBC RBC Hgb Hct MCV MCH MCHC RDW Plt Count Neut % (Auto) Lymph % (Auto) [place] % (Auto) Eos % (Auto) Baso % (Auto) Neut # (Auto) Lymph # (Auto) [place] # (Auto) Eos # (Auto) Baso # (Auto) Sodium 135 L Potassium 4.2 Chloride 100 Carbon Dioxide 24 BUN 9 Creatinine 0.60 L Estimated GFR > 60.0 BUN/Creatinine Ratio 15.0 Glucose 94 Lactate 1.8 Calcium 9.8 Total Bilirubin 1.0 AST 22 ALT 11 Alkaline Phosphatase 137 H Total Protein 8.2 Albumin 4.6 Globulin 3.6 Albumin/Globulin Ratio 1.3 Lipase 61 Procalcitonin Urine Color Urine Appearance Urine pH Ur Specific [place] Urine Protein Urine Glucose (UA) Urine Ketones Urine Occult Blood Urine Nitrate Urine Bilirubin Urine Ictotest Urine Urobilinogen Ur Leukocyte Esterase Urine RBC Urine WBC Amorphous Sediment Urine Bacteria Ur Culture Indicated? Nasal Screen MRSA (PCR) Positive for mrsa H Chlamy pneumoniae PCR Adenovirus (PCR) B.parapertussis DNA PCR Coronavirus OC43 (PCR) Coronavirus HKU1 (PCR) Coronavirus 229E (PCR) Coronavirus NL63 (PCR) Human Metapneumovir PCR Influenza A (RT-PCR) Influenza Type A (PCR) Influenza B (RT-PCR) Influenza Type B (PCR) M. pneumoniae (PCR) Parainfluenza 1 (PCR) Parainfluenza 2 (PCR) Parainfluenza 3 (PCR) Parainfluenza 4 (PCR) RSV (PCR) Entero/Rhino (PCR) 09/26/19 09/27/19 09/27/19 21:15 04:00 08:25 WBC 18.9 H RBC 4.76 Hgb 12.8 L Hct 38.2 L MCV 80.2 MCH 26.9 MCHC 33.5 RDW 14.5 Plt Count 421 H Neut % (Auto) Lymph % (Auto) [place] % (Auto) Eos % (Auto) Baso % (Auto) Neut # (Auto) Lymph # (Auto) [place] # (Auto) Eos # (Auto) Baso # (Auto) Sodium Potassium Chloride Carbon Dioxide BUN Creatinine Estimated GFR BUN/Creatinine Ratio Glucose Lactate Calcium Total Bilirubin AST ALT Alkaline Phosphatase Total Protein Albumin Globulin Albumin/Globulin Ratio Lipase Procalcitonin Urine Color Yellow Urine Appearance Cloudy Urine pH 5.5 Ur Specific [place] >=1.030 H Urine Protein 1+ H Urine Glucose (UA) Negative Urine Ketones 2+ H Urine Occult Blood Negative Urine Nitrate Negative Urine Bilirubin 1+ H Urine Ictotest Negative Urine Urobilinogen 0.2 Ur Leukocyte Esterase Negative Urine RBC None seen Urine WBC None seen Amorphous Sediment 4+ Urine Bacteria None seen Ur Culture Indicated? Cult not indicated Nasal Screen MRSA (PCR) Chlamy pneumoniae PCR Not detected Adenovirus (PCR) Not detected B.parapertussis DNA PCR Not detected Coronavirus OC43 (PCR) Not detected Coronavirus HKU1 (PCR) Not detected Coronavirus 229E (PCR) Not detected Coronavirus NL63 (PCR) Not detected Human Metapneumovir PCR Not detected Influenza A (RT-PCR) Influenza Type A (PCR) Not detected Influenza B (RT-PCR) Influenza Type B (PCR) Not detected M. pneumoniae (PCR) Not detected Parainfluenza 1 (PCR) Not detected Parainfluenza 2 (PCR) Not detected Parainfluenza 3 (PCR) Not detected Parainfluenza 4 (PCR) Not detected RSV (PCR) Not detected Entero/Rhino (PCR) Not detected 09/27/19 09/27/19 08:25 08:25 WBC RBC Hgb Hct MCV MCH MCHC RDW Plt Count Neut % (Auto) Lymph % (Auto) [place] % (Auto) Eos % (Auto) Baso % (Auto) Neut # (Auto) Lymph # (Auto) [place] # (Auto) Eos # (Auto) Baso # (Auto) Sodium 137 Potassium 3.8 Chloride 105 Carbon Dioxide 24 BUN 8 L Creatinine 0.50 L Estimated GFR > 60.0 BUN/Creatinine Ratio 16.0 Glucose 103 H Lactate Calcium 8.9 Total Bilirubin AST ALT Alkaline Phosphatase Total Protein Albumin Globulin Albumin/Globulin Ratio Lipase Procalcitonin 0.25 Urine Color Urine Appearance Urine pH Ur Specific [place] Urine Protein Urine Glucose (UA) Urine Ketones Urine Occult Blood Urine Nitrate Urine Bilirubin Urine Ictotest Urine Urobilinogen Ur Leukocyte Esterase Urine RBC Urine WBC Amorphous Sediment Urine Bacteria Ur Culture Indicated? Nasal Screen MRSA (PCR) Chlamy pneumoniae PCR Adenovirus (PCR) B.parapertussis DNA PCR Coronavirus OC43 (PCR) Coronavirus HKU1 (PCR) Coronavirus 229E (PCR) Coronavirus NL63 (PCR) Human Metapneumovir PCR Influenza A (RT-PCR) Influenza Type A (PCR) Influenza B (RT-PCR) Influenza Type B (PCR) M. pneumoniae (PCR) Parainfluenza 1 (PCR) Parainfluenza 2 (PCR) Parainfluenza 3 (PCR) Parainfluenza 4 (PCR) RSV (PCR) Entero/Rhino (PCR) Assessment & Plan Assessment & Plan narrative: Patient is being admitted under inpatient status to the ICU for acute respiratory failure and left lower lobe pneumonia Acute respiratory failure with hypoxia, present on admission, active -patient has had improvement of oxygenation and is now on room air -will continue IV levofloxacin -white count still markedly elevated at this point ,will continue to trend -speech evaluation today to rule out aspiration Left lower lobe pneumonia, acute, present on admission, active -continue levofloxacin Sepsis, acute, with acute hypoxic respiratory failure WIHOUT septic shock, present on admission, active - Questionable sepsis... Left mid and lower lobe PNA + acute respiratory failure and hypoxia - WBC 19, lactate 1.8 PCT 0.14, Flu A/B negative, + SIRS... DDx: viral PNA / viral etiology vs atypical PNA vs aspiration PNA will check RVP, trend PCT (repeat in am), urine AGs - Blood Cx and sputum cx collected in ED, pending - Additional labs: UA - Started on empiric therapy with levofloxacin Dysphagia, acute, present on admission, active - baseline dysarthria - dysphagia, new, but tends to happen when patient is ill -swallow evaluation today Hyponatremia, acute, present on admission, active - Multifactorial: Diminished appetite, hypermetabolic state, underlying infection - Received 1L NS bolus in ED - Start on maintenance IVF D5 w/ NS at 100 ml/hr - Trend I/Os Headache, acute, present on admission, active - Toradol 15 gm IV x1 Decubitus Pressure Ulcer (stage II), subacute, present on admission, active - Picture captured by nurses to scan to chart - Off load, turn patient Q2H - Cleanse affected area daily and when soiled. Add additional protection w/ mepilex. Quality VTE Deep Vein Thrombosis/Pulmonary Embolism Present on Admission: No
[2019-09-27 11:40] LABS: Neutrophils Absolute Manual 15120 /uL (3000-5900); Total Cells Counted 100
[2019-09-27 11:41] LABS: RBC Morphology Normal Morphology
[2019-09-27] MEDS: ENOXAPARIN 40 MG/0.4 ML SYRINGE SUBCUT (12:51)
--- NOTE | 2019-09-27 14:20 | DIET.PN ---
Dietary Progress Note Assessment: Mr. Christopher is a 39-year-old male with PMHx significant for inoperable glioma, cognitive impairment / developmental delay, prior tobacco use, and THC use. He presented with a 3-5 day history of worsening shortness of breath with fever, headache, cough, and generalized malaise. He is currently NPO r/t aspiration precautions. He has acute dysphagia, but tends to happen when patient is ill per chart notes. Swallow/speech eval is being considered. He lives alone and has a wind operations supervisor 2x/day mon-fri. 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 Interventions: 1. Will wait for CREAM GATHERER eval/intervention to determine dietary prescription. Diet Order: NPO EER: 2200 saurav @ 30 saurav/kg 95-110g pro @ 1.3-1.5 g/kg Monitoring/Evaluations: Weight, diet order advancement.
--- NOTE | 2019-09-27 16:36 | PC.NURSE ---
1615-Patient positioned to the left. Patient denies discomfort but is crying and upset. Patient states I am fine but then cries. Patient clear when asked if he is in pain that he is not having pain. Mom states patient takes a antidepressant but has not had it while hospitalized. Requested that Mom bring medication in so that we can restart it. Will monitor.
--- NOTE | 2019-09-27 17:45 | ST.IPCSEOM ---
Visit Care Team Role Provider Type Nargis Fernandez DO Primary Care Provider Physician Specialty: Family Practice Address: [address] [place] [address], [facility], [place], [address] Email: [email or web address] Norman Perrin DO Emergency Provider Physician Specialty: Emergency Medicine Address: [address] [place] [address], [id number] Email: [email or web address] Admit Provider Advanced Letterpress Setter Attending Provider Specialty: Internal Medicine Address: [address] [place] [address], [id number] Email: [email or web address] Diagnoses Sepsis, unspecified organism (09/26/19) Past Medical History (Last Reviewed 09/27/19 @ 05:07 by MANJULA Lopez) Depression (Chronic Medical) Glioma (Chronic Medical) Age 5, inoperable, 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 Johnson Setting Assessment Location Acute Care Visit Type Note Type Initial Evaluation Next Note Type Next Note Type Re-Evaluation Patient Information Identification Type Name,ID Wristband History The patient is a 39-year-old male with PMH significant for inoperable glioma (at age 5, s/p radiation w/ residual right hemiparesis), dysarthria (non- cerebrovascular event related) , cognitive impairment / developmental delay, prior tobacco use, and THC use. Patient presented with a 3-5 day history of worsening shortness of breath. Associated symptoms include fever, headache, cough w/ purulence, and generalized malaise. Subjective Observations Pt was up in his bed with his mother present. Evaluation Liquids Trialed Ice Chips,Thin Solids Trialed Puree Administration Type Tea Spoon Oral Impairment Moderately Impaired Oral Strategies Upright at 90 degrees, Toothette,Controlled Bite/Sip Size Oral Phase Comments OM examination indicated weak oral musculature, limited ROM, , reduced speed of movement with limited accuracy. Speech is dysarthric. Pt's mother reported that over the past year his dysarthria has increased. She noted that pt had an MRI this past Tuesday at [facility]. Pharyngeal Impairment Moderately Impaired Pharyngeal Strategies Sitting Upright (90 deg),Small Bites and Sips Pharyngeal Phase Comments Hyolaryngeal elevation appeared to be WFL; however pt 's swallow audible indicating poor airway protection. Pt also had a delayed swallow that required 4-5 tongue pump attempts before swallowing. Pt was unable to produce a dry swallow. In order to determine the pt's safety for PO intake, mechanical assessment of the pt's swallowing iss recommended. A MBS is recommended. Findings Dysphagia Type Oropharyngeal dysphagia Rehabilitation Potential Fair Diet Recommendations Liquids Order Ice Chips Only Comments applesauce OK Additional Dietary Needs 1:1 Supervision Aspiration Precautions Recommended Precautions Upright at 90 Degrees,Small Bites/Sips,Double Swallow Treatment Plan Therapy Recommendations MBSS
[2019-09-27] MEDS: levoFLOXacin 750 MG/150 ML PIGGYBACK 100 MG IV (18:40)
[2019-09-28] MEDS: DEXTROSE 5%-0.9% NS 1,000 ML 100 ML IV (00:40)
[2019-09-28 04:52] VITALS: BP 120/77; PULSE 113; RESP 33; TEMP 37.3; O2SAT 100
[2019-09-28 05:36] LABS: Add Manual Diff / Slide Review NO; Basophils Absolute Auto 100 /uL (0-100); Basophils Percent Auto 0.4 % (0-2); Eosinophils Absolute Auto 0 /uL (0-450); Eosinophils Percent Auto 0.2 % (2-4); Hematocrit 34.2 % (41-53); Hemoglobin 11.4 g/dL (13.5-17.5); Lymphocytes Absolute Auto 1600 /uL (1100-4500); Lymphocytes Percent Auto 11.7 % (25-40); Mean Corpuscular HGB Conc 33.2 % (30-36); Mean Corpuscular Hemoglobin 26.8 PG (26-34); Mean Corpuscular Volume 80.7 fL (80-100); Monocytes Absolute Auto 1400 /uL (0-900); Monocytes Percent Auto 10.1 % (3-14); Neutrophils Absolute Auto 10600 /uL (1500-7000); Neutrophils Percent Auto 77.6 % (50-75); Platelet Count 302 X10^3/uL (150-400); Red Blood Cell Count 4.24 X10^6/uL (4.5-5.9); Red Cell Distribution Width 14.1 % (11.6-14.8); White Blood Cell Count 13.6 X10^3/uL (4.5-11.0)
[2019-09-28] MEDS: ALBUTEROL 2.5 MG/3 ML NEB (ADULT) INH ×2 (06:11→13:51)
[2019-09-28 06:12] VITALS: PULSE 102; RESP 30; O2SAT 100
--- NOTE | 2019-09-28 06:28 | PC.NURSE ---
Sales Representative Aircraft Note-Patient is oriented, still struggles with coughing sputum up, uses sx on own and occasionally will require assistance for deep sx, SpO2 >97% on RA, RR 20s-30s. Lung sounds coarse throughout, R>L. Speech more clear in am. ST 110-120, afebrile. Incontinent urine.
[2019-09-28 07:50] VITALS: BP 106/68; PULSE 120; RESP 34; TEMP 37; O2SAT 99
[2019-09-28 07:50] LABS: Blood Urea Nitrogen 6 mg/dL (9-20); Calcium 8.5 mg/dL (8.4-10.2); Carbon Dioxide 24 mmol/L (22-32); Chloride 105 mmol/L (98-107); Estimated Glomerular Filt Rate > 60.0 mL/min (>60); Glucose 103 mg/dL (70-100); HEMOLYSIS < 15 (0-50); Potassium 3.5 mmol/L (3.4-5.1); Sodium 136 mmol/L (137-145)
[2019-09-28 08:19] LABS: Procalcitonin 0.27 ng/mL (<0.5)
[2019-09-28 08:21] LABS: Magnesium 1.7 mg/dL (1.6-2.3)
--- NOTE | 2019-09-28 08:27 | PC.NURSE ---
pt assisted to barium swallow test-chair using ashley and staff assist of 3 staff members- pt tolerated well oral care given -
[2019-09-28] MEDS: MAGNESIUM SULFATE 2 GM/50 ML PIGGYBACK IV (10:43)
[2019-09-28] MEDS: ENOXAPARIN 40 MG/0.4 ML SYRINGE SUBCUT (10:52)
[2019-09-28 11:21] VITALS: BP 108/72; PULSE 107; RESP 19; TEMP 37.1; O2SAT 100
--- NOTE | 2019-09-28 12:05 | ST.SWALLOW ---
Visit Care Team Role Provider Type Nargis Fernandez DO Primary Care Provider Physician Specialty: Family Practice Address: [address] [place] [address], [facility], [place], [address] Email: [email or web address] Norman Perrin DO Emergency Provider Physician Specialty: Emergency Medicine Address: [address] [place] [address], [address] Email: [email or web address] Admit Provider Advanced Instrument Person Attending Provider Specialty: Internal Medicine Address: [address] [place] [address], [facility] Email: [email or web address] Modified Barium Swallow Study WATCH PARTS INSPECTOR Modified Barium Swallow Study Start: 09/27/19 17:09 Freq: Status: Active Protocol: Document 09/28/19 11:19 LNK (Rec: 09/28/19 12:05 LNK [id number]) Modified Barium Swallow Study Total Time Visit Start Time 08:30 Visit Stop Time 09:15 Total Visit Minutes [address] Johnson Reason for Referral dysphagia Setting Setting Acute Care Patient Information Identification Type Name,ID Wristband Patient History The patient is a 39-year-old male with PMH significant for dysarthria ( non-cerebrovascular event related), cognitive impairment / developmental delay, prior tobacco use, and THC use. Patient presented with a 3-5 day history of worsening shortness of breath. Associated symptoms include fever, headache, cough w/ purulence, and generalized malaise. Pt's mother reported an increased dysarthria/OM strength. In order to determine the pt's safety for PO intake, mechanical assessment of the pt's swallowing a MBSS was recommended. [ E Subjective Observations Pt was seated in the fluoroscopy chair. Instructions and procedure were explained to pt, who agreed to proceed. Patient Positioning Position View Lateral Imaging Lateral View Textures Administered Trials Presented Thin Liquid via Spoon,Thin Liquid via Cup,[place] Liquid via Spoon,[place] Liquid via Cup,Honey Liquid via Spoon, Barium Tablet Oral Phase Source: MBSIMP (TM) (C) Bolus Specific Scoring Grid Lip Closure Moderate Impairment Tongue Control During Bolus Hold Severe Impairment Bolus Prep/Mastication Severe Impairment Bolus Transport/Lingual Motion Severe Impairment A/P Lingual Propulsion Delay Yes: 4-5 tongue pumps needed to move bolus A/P Number of Seconds Delayed (seconds) 3+ Oral Residue Moderate Impairment Residue Clearing Moderate Impairment Nasal Regurgitation No Additional Oral Phase Observations Pt has natural dentition in poor hygeine. An occlusal pattern of tongue thrust was noted. Diminished tongue/bolus cotrol observed with A/P delay ~ 3+ seconds. Tongue rocking x4-5 observed in order for A/P motion to occur for all solids. Similar tongue rocking was observed across ALL swallows. Poor mastication with anterior munching observed and incomplete mastication resulting in the pt swallowing unchewed pieces within the bolus. Oral residue noted following all swallows. Pharyngeal Phase Source: MBSIMP (TM) (C) Bolus Specific Scoring Grid Delayed Initiation of Pharyngeal Swallow Yes: premature spillage to pyriform sinuses and to vocal folds Number of Seconds Delayed (seconds) 3+ Soft Palate Elevation Mild Impairment Tongue Base Strength/Range of Motion Moderate Impairment Residue Along the Tongue Base Yes Laryngeal Elevation Mild Impairment Anterior Hyoid Movement Severe Impairment Epiglottic Range of Motion Moderate Impairment Vallecular Residue Yes Clearance of Vallecular Residue Moderate Impairment Laryngeal Vestibular Closure Severe Impairment Pharyngeal Stripping Wave Mild Impairment Posterior Pharyngeal Wall Residue Yes Clearance of Posterior Pharyngeal Wall Moderate Impairment Residue Esophageal Clearance Upright Position Mild Impairment Pharyngoesophageal Backflow Observed No Additional Pharyngeal Phase Observations Premature spillage into the valeculla, pyriform sinuses and to the vocal folds observed. No cough response to penetration. Cued cough very weak/ ineffective. Diminished tongue base strength, adequate laryngeal elevation and no observed hyoid movement forward. This directly impacts the epiglottic inversion and bolus control within the pharynx to the UES. Epiglottic inversion incomplete with penetration and ASPIRATION observed. Pooled residue on the vocal folds, from the valeculla and the posterior pharyngeal wall and the pt's secretions were observed to slowly flow inthe the trachea. Penetration and aspiration SILENT. A/P View Clinical Impressions Dysphagia Type severe oropharyngeal dysphagia Rehabilitation Potential Poor Patient Appropriate for Therapy Family education re: Recommendations Diet Liquids Order [place] Diet Order Dysphagia Mechanical Medication Recommendation As Tolerated,Crushed in Carrier Additional Dietary Needs Chopped Food,Single Sips, Controlled Sips,1:1 Supervision,1:1 Assistance, Encourage to Self-Feed Aspiration Precautions Recommended Precautions Upright at 90 Degrees,Small Bites/Sips,Chin Tuck,Double Swallow,Check for Pocketing Treatment Plan Additional Therapy Recommendations family/MD discussion re recurrent aspiration given the results described Compensatory Strategies Recommendations Sitting Upright (90 deg), Double Swallow,Small Bites and Sips Placement Recommendation After Discharge Home
--- NOTE | 2019-09-28 13:09 | PM.DS.1 ---
History of Present Illness History of Present Illness Date Patient Seen: 09/26/19 Chief complaint: Cold/flu symptoms several days Narrative: Written by Seda FAIR: The patient is a 39-year-old male with PMH significant for inoperable glioma (at age 5, s/p radiation w/ residual right hemiparesis), dysarthria (non-cerebrovascular event related), cognitive impairment / developmental delay, prior tobacco use, and THC use Patient presented with a 3-5 day history of worsening shortness of breath. Associated symptoms include fever, headache, cough w/ purulence, and generalized malaise. Patient himself denies chest pain, palpitations, dizziness or lightheadedness. He has not experienced abdominal pain, nausea, vomiting or diarrhea. No reported dysuria or change in pattern of micturition. No specific exacerbating or remitting factors noted. At baseline, patient has fairly stable health status. He has underlying developmental delay and side effects from an operable glioma and associated treatment, which include right hemiparesis, dysarthria, and degree of cognitive impairment. He is on two outpatient medications. Patient lives independently. His wheelchair and Carlos Alberto lift bound. He has a airline station agent that attends to him for a certain time interval twice a day, Tuesday through Tuesday. Patient's mother is also source of significant support. Patient has been vaccinated for influenza for the current season. ED presentation & work-up Febrile, tachycardic, and tachypneic. At baseline known to be on room air, he required supplemental O2 support. Labs 09/26/19, 1856 WBC 19 Lactate 1.8 PCT 0.14 Influenza A/B negative Plt 477 Hgb 13.1 Hct 38.9 Na 135, K 4.2, Cl 100, CO2 24, BUN 9, Cr 0.6, Glu 94 Ca 9.8 Alb 4.6 AST 22 ALT 11 Alk Phos 137 T.Bili 1.0 Lipase 61 MRSA positive CXR. Lungs are abnormal, with new mild to moderate pneumonia involving the left mid and lower lung. No pleural effusions or pneumothorax. no cardiomegaly. In ED patient was treated with albuterol treatment (1842), 1 L NS bolus (1855), and levofloxacin 750 mg IV (1917) Discharge Providers Provider Date of admission: 09/26/19 20:41 Discharge Date: 09/28/19 Primary care physician: Nargis Fernandez DO Consults: 09/26/19 22:00 Consult to Dietitian, Adult Routine Comment: Reason For Exam: assess at high risk 09/26/19 22:19 Consult to Respiratory Therapy Evaluate & Treat Comment: Physician Instructions: Evaluate and treat 09/27/19 11:33 Consult to Speech Therapy Evaluate & Treat Comment: r/o aspiration, history of dysphagia Physician Instructions: Evaluate and treat Discharge provider: Corina Martinez DO Summary Hospital Course Discharge Diagnosis: 1. Acute sepsis, present on admission. Resolved. 2. Acute hypoxemic respiratory failure, secondary to left lower lobe pneumonia, present on admission. Resolved. 3. Acute left lower lobe aspiration pneumonia, present on admission. Resolving. 4. Dysphagia with aspiration, acute, present on admission. Active. 5. Acute hyponatremia, present on admission. Resolving. 6. Acute headache, present on admission. Resolved. 7. Decubitus pressure ulcer (stage II), subacute, present on admission. Stable. Hospital Course: Jonnie Christopher is a 39-year-old male with past medical history significant for inoperable glioma (at age 5, s/p radiation w/ residual right hemiparesis), dysarthria (non-cerebrovascular event related), cognitive impairment / developmental delay, prior tobacco use, and THC use who presented with a 3-5 day history of worsening shortness of breath. 1. Acute sepsis, present on admission. Resolved. -Patient met sepsis criteria with end-organ dysfunction of acute hypoxemic respiratory failure with source left lower lobe aspiration pneumonia. -Early goal-directed therapy met including: IV fluid hydration and broad-spectrum IV antibiotics. 2. Acute hypoxemic respiratory failure, secondary to left lower lobe pneumonia, present on admission. Resolved. -Continued supplemental oxygen as need to maintain oxygen saturation 88-92%. Patient off oxygen. -Continue to treat underlying cause as below. 3. Acute left lower lobe aspiration pneumonia, present on admission. Resolving. -Patient presented with progressive worsening shortness of breath, fever, productive cough and generalized malaise. -Initial WBC 19 and procalcitonin 0.14. WBC trending down now 13.6. Procalcitonin likely peaked at 0.27. Continued to trend WBC and procalcitonin daily. -Ordered complete pneumonia workup including: Respiratory viral PCR negative. Strep pneumoniae and Legionella urine antigens, pending. Sputum culture grew mixed residential katelyn. Blood cultures x2 have no growth to date. -Continued levofloxacin 750 mg IV daily. Discharged on levofloxacin 750 mg daily for 5 additional days to complete 7 days total. -Consulted speech therapy for evaluation and treatment. MBS performed demonstrated penetration and aspiration during swallowing of thin liquids and nectar. Speech therapy recommended dysphagia mechanical diet with nectar thick liquids and continued outpatient speech therapy evaluation and treatment. 4. Dysphagia with aspiration, acute, present on admission. Active. -Patient has baseline dysarthria and now dysphagia which occurs when patient is sick. -Consulted speech therapy for evaluation and treatment. MBS performed demonstrated penetration and aspiration during swallowing of thin liquids and nectar. Speech therapy recommended dysphagia mechanical diet with nectar thick liquids and continued outpatient speech therapy evaluation and treatment. 5. Acute hyponatremia, present on admission. Resolving. -Multifactorial: Diminished appetite, hypermetabolic state, underlying infection -Received 1L NS bolus in ED. Continued IV fluids until adequately hydrated then discontinued. 6. Acute headache, present on admission. Resolved. -Received Toradol 15 gm IV x1 with resolution. 7. Decubitus pressure ulcer (stage II), subacute, present on admission. Stable. -Picture captured by nurses to scan to chart. -Continued to off load and turn patient every 2 hours. -Cleanse affected area daily and when soiled. Add additional protection w/ mepilex. Exam Vital Signs (past 8 hours): - 09/28/19 06:12 09/28/19 07:50 09/28/19 11:21 Temperature 98.6 F 98.7 F Pulse Rate 102 H 120 H 107 H Respiratory Rate 30 H 34 H 19 Blood Pressure 106/68 108/72 Pulse Oximetry 100 99 100 Oxygen Delivery Method Room Air Oxygen Flow Rate 0 Narrative Exam Narrative: General: Gentleman lying in bed and in no acute distress, well-developed, well-nourished, mild cognitive impairment with dysarthria but otherwise appropriately interactive. HEENT: Normocephalic, atraumatic. External ears without defect. Pupils equal, round, and reactive to light. Anicteric sclerae, moist conjunctivae, and no lid lag. Oropharynx free of erythema and cobble stoning with moist mucosa. Neck: Supple with full range of motion. No lymphadenopathy or thyromegaly. Cardiovascular: Regular rhythm, mild tachycardia, without murmurs, rubs, or gallops appreciated. Pulmonary: Clear to auscultation bilaterally without crackles, wheezes, or rhonchi. Normal respiratory effort with no use of accessory muscles. Abdomen: Soft, bowel sounds present, nontender, nondistended. No hepatosplenomegaly or masses appreciated. Extremities: No clubbing or cyanosis. Trace bipedal edema. Skin: Normal temperature, turgor, and texture; no rash, ulcers, or subcutaneous nodules appreciated. Neurological: Cranial nerves grossly intact. Flaccid lower extremities with paresis. Dysarthria with dysphagia. Psychiatric: Normal mood and affect. Appears alert and oriented to person and place. Mild cognitive impairment. Objective Labs Result Diagrams: 09/28/19 05:00 09/28/19 05:00 Labs: Laboratory Results - last 24 hr 09/28/19 09/28/19 09/28/19 05:00 05:00 05:00 WBC 13.6 H RBC 4.24 L Hgb 11.4 L Hct 34.2 L MCV 80.7 MCH 26.8 MCHC 33.2 RDW 14.1 Plt Count 302 Neut % (Auto) 77.6 H Lymph % (Auto) 11.7 L [place] % (Auto) 10.1 Eos % (Auto) 0.2 L Baso % (Auto) 0.4 Neut # (Auto) 96998 H Lymph # (Auto) 1600 [place] # (Auto) 1400 H Eos # (Auto) 0 Baso # (Auto) 100 Sodium 136 L Potassium 3.5 Chloride 105 Carbon Dioxide 24 BUN 6 L Creatinine 0.40 L Estimated GFR > 60.0 BUN/Creatinine Ratio 15.0 Glucose 103 H Calcium 8.5 Magnesium Procalcitonin 0.27 09/28/19 05:00 WBC RBC Hgb Hct MCV MCH MCHC RDW Plt Count Neut % (Auto) Lymph % (Auto) [place] % (Auto) Eos % (Auto) Baso % (Auto) Neut # (Auto) Lymph # (Auto) [place] # (Auto) Eos # (Auto) Baso # (Auto) Sodium Potassium Chloride Carbon Dioxide BUN Creatinine Estimated GFR BUN/Creatinine Ratio Glucose Calcium Magnesium 1.7 Procalcitonin Discharge Plan Discharge Plan Patient Disposition: Home Discharge comment: You're being discharged home. You have aspiration pneumonia. You have been prescribed levofloxacin 750 mg daily for 5 additional days to complete a 7 day course of antibiotics. Please follow-up with your primary care physician, Dr. Fernandez, at your scheduled appointment regarding your hospitalization and for referral to speech therapy to continue strengthening your oropharyngeal muscles. Discharge orders & Medications Prescriptions: New levofloxacin 750 mg tablet 750 mg PO DAILY Qty: 5 RF: 0 Continued nystatin 100,000 unit/gram powder 1 applictn TOP QID Qty: 15 RF: 1 (DME) Disabled Parking Qty: 1 RF: 0 (DME) Battery Powered Lift Qty: 1 RF: 0 (DME) Power Chair tall Qty: 1 RF: 0 (DME) Semi-electric hospital bed Qty: 1 RF: 0 (DME) Shower Chair Qty: 1 RF: 0 sertraline bottle 50 mg PO DAILY RF: 0 latanoprost 0.005 % Drops 1 drp EYE-BOTH BEDTIME RF: 0 Follow up/Referrals: Nargis Fernandez DO [Primary Care Provider] - 1 Week (APPT TIME 10:30AM -- September ) Diet/Activity/Treatments Diet comment: Dysphagia mechanical, nectar thick liquids Activity: Activity as tolerated Visit Report/Discharge Packet Instructions: DI for Oropharyngeal Dysphagia Discharge Data Primary Care Provider: Nargis Fernandez Discharges patient from system. Discharge Date/Time: 09/28/19 14:33 Quality VTE Deep Vein Thrombosis/Pulmonary Embolism Present on Admission: No
[2019-09-28 13:51] VITALS: PULSE 110; RESP 28; O2SAT 100
--- NOTE | 2019-09-28 14:05 | CM.DPC ---
DCP: continued: Case received, EMR reviewed and discussed in Team Rounds. Dr. Martinez now confirms pt is stable for d/c to home setting. She has talked with pt and his mother Marianela, here to take pt home. MANAGER CLINICAL did see pt and he will continue to work with MANAGER CLINICAL in the OUTPT setting/IH Therapy. Dr. Martinez also notes that she is unsure why the hospitalist team is following pt as his PCP is Dr. Fernandez/[facility]. Pt will be following up with Dr. Fernandez in clinic. Care at home with [facility] plus his mother's care will continue as prior.
--- NOTE | 2019-09-28 14:40 | PC.NURSE ---
PT TOLERATING APPLESAUCE AND ICE CHIPS WELL, EDUCATED MOTHER AND PT ON DYSPHAGIA DIET BUT THEY WERE UNABLE TO WAIT FOR MEETING WITH ADDISON GALINDO , ERICK DUE TO INCLIMATE WEATHER DISCHARGED TO HOME AT THIS TIME-
--- NOTE | 2019-09-28 17:12 | DI.RAD.S_ITS ---
PROCEDURE: FL BARIUM SWALLOW W SPEECH INDICATIONS: dysphagia TECHNIQUE: Examination was conducted in conjunction with speech pathology per standard protocol. In the lateral projection, filming was performed of the patient swallowing. AP projection filming may also be performed with patient swallowing. COMPARISON: None. FINDINGS: Function: The oral preparatory phase appears normal, with proper containment. There is penetration and aspiration of thin liquid and nectar during the study. Morphology: No cricopharyngeal bar is identified. No cervical esophageal webs. No Zenker's diverticulum. No strictures. IMPRESSION: Penetration and aspiration is noted during swallowing of thin liquids and nectar. Please correlate with speech pathology notes. Dictated by: Jarocho Garzon M.D. on 09/28/2019 at 9:51 Approved by: Jarocho Garzon M.D. on 09/28/2019 at 9:53
[2019-09-29 15:39] LABS: Enterococcus species Not Detected (Not Detect); Listeria monocytogenes Not Detected (Not Detect); Staphylococcus species Not Detected (Not Detect)
[2019-09-29 15:40] LABS: Acinetobacter baumannii Not Detected (Not Detect); Enterobacteriaceae species Not Detected (Not Detect); Streptococcus agalactiae (Gr B Not Detected (Not Detect); Streptococcus pneumonia Not Detected (Not Detect); Streptococcus pyogenes (Gr A) Not Detected (Not Detect); Streptococcus species Not Detected (Not Detect)
[2019-09-29 15:41] LABS: Candida albicans Not Detected (Not Detect); Candida glabrata Not Detected (Not Detect); Candida krusei Not Detected (Not Detect); Candida parapsilosis Not Detected (Not Detect); E. coli Not Detected (Not Detect); Enterobacter cloacae complex Not Detected (Not Detect); Haemophilus influenzae Not Detected (Not Detect); Neisseria meningitidis Not Detected (Not Detect); Proteus species Not Detected (Not Detect); Pseudomonas aeruginosa Not Detected (Not Detect); Serratia marcescens Not Detected (Not Detect)
[2019-09-29 15:42] LABS: Candida tropicalis Not Detected (Not Detect)
== END 2019-09-28 14:33 | disposition home or self-care (01) | DRG 871 ==
LOC: ED 20:22 → ICU 09-27 08:27
PROVIDERS: Internal Medicine; Admitting Provider Nurse Practitioner Gerontology; Emergency Provider Emergency Medicine; PCP Family Medicine; Visit Provider Nurse Practitioner Gerontology
DX: A41.9 Sepsis, unspecified organism (principal); J96.01 Acute respiratory failure with hypoxia; J69.0 Pneumonitis due to inhalation of food and vomit; G81.91 Hemiplegia, unspecified affecting right dominant side; E87.1 Hypo-osmolality and hyponatremia; R65.20 Severe sepsis without septic shock; R47.1 Dysarthria and anarthria; R62.50 Unspecified lack of expected normal physiological development in childhood; L89.312 Pressure ulcer of right buttock, stage 2; R13.10 Dysphagia, unspecified; R00.0 Tachycardia, unspecified
CPT/HCPCS: 36415; 71045; 74230; 80048; 80053; 81001; 82962; 83605; 83690; 83735; 84145; 85025; 87040; 87070; 87150; 87205; 87449; 87502; 87633; 87797; 92610; 92611; 93005; 94640; 94762; 94799; 96365; 96366; 99284; 99285; J1650; J1885; J1956; J7613

== ENCOUNTER 2019-10-17 14:57 | Observation (INO) | payer MEDICAID, OTHER, SELFPAY ==
[2019-10-17] VITALS (7 sets, daily range): BP systolic 92–121; BP diastolic 51–75; PULSE 75–88; RESP 14–20; TEMP 36.4–37.1; O2SAT 95–99; BMI 21.5
--- NOTE | 2019-10-17 15:08 | DI.CT.S_ITS ---
PROCEDURE: CT HEAD/BRAIN WO CON INDICATIONS: increase slurred speech and weakness TECHNIQUE: Noncontrast 4.5 mm thick angled axial sections acquired from the foramen magnum to the vertex, with coronal and sagittal reformats. For radiation dose reduction, the following was used: automated exposure control, adjustment of mA and/or kV according to patient size. COMPARISON: [facility], CT, BRAIN W/O CONTRAST, 11/05/2008, 5:35. [facility], MR, BRAIN W&W/O CONTRAST, 09/16/2005, 6:13. [facility], CT, BRAIN W/O CONTRAST, 09/15/2005, 17:36. [facility], MR, BRAIN W&WO CONTRAST, 11/30/2017, 18:06. [facility], MR, MR BRAIN WITH/WITHOUT CONTRAST, 09/24/2019, 17:26. FINDINGS: Image quality: Excellent. CSF spaces: Basal cisterns are patent. No extra-axial fluid collections. Ventricles are normal in size and shape. Brain: No midline shift. No intracranial masses or hemorrhage. Gabriel-white matter interface is normal but again noted is central encephalomalacia involving the pontine portion of the brainstem, and some degree of cerebellar atrophy resulting in prominence of the CSF space beneath the tentorium. Skull and face: Calvarium and visualized facial bones are intact, without suspicious lesions. Sinuses: Visualized sinuses and mastoids are clear. IMPRESSION: No acute disease, mild progression of relative cerebellar atrophy increasing the CSF space beneath the tentorium. Prior brainstem encephalomalacia centrally positioned has been documented on multiple prior CT and MR studies without progression. Dictated by: Gordo Neves M.D. on 10/17/2019 at 15:34 Approved by: Gordo Neves M.D. on 10/17/2019 at 15:37
--- NOTE | 2019-10-17 15:23 | ED_ITS ---
HPI - Weakness General Chief complaint: Weakness Stated complaint: Lethargy Time Seen by Provider: 10/17/19 15:09 Source: EMS Mode of arrival: EMS History of Present Illness HPI Narrative: The patient is a 39-year-old male who was transported to the emergency department after he had a. Of unresponsiveness with his eyes rolling up into his head. The patient has generalized weakness and was lethargic. EMS was called and when they arrived they could not find a pulse or pressure on the patient. They started an IV. In the emergency department we got a good pulse and down his blood pressure was present. 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 Mom and dad state that the patient has never had a seizure. He has had no heart murmur atrial fibrillation. He has had no congenital heart disease hypertension or diabetes mellitus. There was no witnessed tonic-clonic activity. According to the patient's mother the patient has a history of left-sided chest pain and discomfort which cannot be explained. No cause has been identified. A couple of months ago the patient was admitted to the hospital for left-sided pneumonia. And discharged home. The patient states that he has been complaining of decreased hearing that sounds like people are underwater and difficulty understanding them. He has had no recent fever chills sweats headache for. He has right-sided hemiparesis . The patient denies any change in vision loss of vision. He has had no significant shortness of breath or cough but has persistent left-sided chest pain. He denies any palpitations or dizziness. He has had no rash purpura bruises but has appeared very pale. He has had no nausea vomiting diarrhea. Bowel movements have been normal without melena or hematochezia. He has had no urinary symptoms. Related Data Home Medications Medication Instructions Recorded Confirmed latanoprost 1 drp EYE-BOTH BEDTIME 09/18/18 10/09/19 Previous Rx's Medication Instructions Recorded Battery Powered Lift #1 ea 03/02/18 Power Chair #1 ea 10/16/18 Semi-electric hospital bed #1 ea 11/17/18 Disabled Parking #1 each 01/15/19 nystatin 100,000 unit/gram topical 1 applictn TOP QID #15 gram 01/15/19 powder Shower Chair #1 ea 07/04/19 levofloxacin 750 mg PO DAILY #5 tab 09/28/19 sertraline 100 mg tablet 100 mg PO DAILY #30 tab 10/09/19 Allergies Allergy/AdvReac Type Severity Reaction Status Date / Time Penicillins [PENICILLINS] Allergy Severe RASH Verified 10/09/19 12:14 Review of Systems Review of Systems ROS Unobtainable: All systems reviewed & are unremarkable except as noted in HPI and below Patient History Medical History Depression (Chronic) Dysarthria (Acute) Glioma (Chronic) Hemiparesis (Chronic ~1984) Pseudobulbar palsy (Acute) Surgical History Status post radiation therapy (Acute) Family History Mother No problems noted. Father No problems noted. Social History marital status: unmarried,single household members: family, caregiver and none Smoking Status: Former smoker alcohol intake: never substance use type: marijuana Smoking Status: Former smoker alcohol intake frequency: 0-2 drinks per day Substance Use Type: marijuana Exam Narrative Exam Narrative: PHYSICAL EXAM: CONSTITUTIONAL: Awake, Alert, Oriented, Coherent, the patient looks ill and very pale. He looks chronically ill and very thin.. HEAD: AT/NC EENT: PERRL, FROM of eyes, no discharge, no nystagmus No epistaxis or nasal drainage Oral mucosa is moist and pink, posterior pharynx is without erythema or exudate. NECK: Supple, no obvious JVD, Trachea is midline without stridor, no palpable LN or masses. SPINE: No gross deformity, no palpable tenderness of the cervical, thoracic, lumbar or sacral spine. No CVA tenderness. THORAX: No deformity, retractions, chest wall tenderness, subcutaneous air or crepitice. LUNGS: Markedly decreased breath sounds poor inspiratory effort crackles in the left middle posterior lung field. HEART: Normal heart tones, regular rhythm and rate without murmur. ABDOMEN: Soft, non-tender, normal bowel sounds without guarding, rebound, rigidity or palpable mass EXTREMITIES: No edema, cyanosis, deformity or tenderness. SKIN: No rash, bruising, petechiae or purpura. NEURO: The patient is awake. He is conversive and tries to speak. There is no focal facial asymmetry cranial nerves appear to be normal. The patient has increased tone in his left side with left hemiparesis and weakness. His reflexes are hyperreflexic. He has increased tone with clenched fingers on the right side. Initial Vital Signs Initial Vital Signs: Vital Signs Temperature 98.8 F 10/17/19 15:01 Pulse Rate 88 10/17/19 15:01 Respiratory Rate 18 10/17/19 15:01 Blood Pressure 92/67 10/17/19 15:01 Pulse Oximetry 98 10/17/19 15:01 Course Course Course Narrative: The patient's chest x-ray by my review looked abnormal. It looked as though the patient had a left pleural effusion with a questionable compressive atelectasis versus pneumonia in the lower and middle lung matthew with congestion and prominence of the left fanta. The radiologist Dr. Boyer read it as a left middle and lower lobe pneumonia with a subpulmonic of fusion/pleural effusion. He thought this was worse who when compared to his previous admission for pneumonia. Orders Ordered: ED Orders 10/17/19 15:01 EKG-12 Lead Stat 10/17/19 15:08 CT head/brain wo con Stat 10/17/19 15:15 C-Reactive Protein Quant Stat Complete Blood Count AUTO DIFF Stat Comprehensive Metabolic Panel Stat Creatine Kinase Stat Erythrocyte Sedimentation Rate Stat Lactate (Lactic Acid) Stat Magnesium Stat NT-proBNP (BNP-Adult 18+) Stat Troponin & CK Cardiac Panel Stat 10/17/19 15:43 XR chest 1V Stat 10/17/19 17:14 Creatine Kinase Stat Lactate (Lactic Acid) Stat 10/17/19 17:36 Blood Culture Stat Enoxaparin Sodium (Lovenox) 40 mg SUBCUT DAILY JOSE MANUEL Sodium Chloride (Normal Saline 0.9%) 1,000 mls @ 150 mls/hr IV CONT JOSE MANUEL Last Infusion: 10/17/19 18:59 Dose: 0 mls/hr Documented by: Admin: 10/17/19 16:20 Dose: 150 mls/hr Documented by: AMARA Sodium Chloride (Normal Saline 0.9%) 1,000 mls @ 125 mls/hr IV CONT JOSE MANUEL Levofloxacin (Levaquin) 750 mg in 150 mls @ 100 mls/hr IV Q24H JOSE MANUEL Naloxone HCl (Narcan) 0.2 mg IV Q2MIN PRN PRN Reason: Opiate Reversal Sertraline HCl (Zoloft) 100 mg PO DAILY JOSE MANUEL Discontinued Medications Levofloxacin (Levaquin) 750 mg in 150 mls @ 100 mls/hr IV NOW ONE Stop: 10/17/19 18:47 Last Infusion: 10/17/19 18:59 Dose: 0 mls/hr Documented by: Admin: 10/17/19 17:47 Dose: 100 mls/hr Documented by: AMARA Vital Signs Vital signs: Vital Signs - 8 hr 10/17/19 15:01 10/17/19 16:30 10/17/19 17:00 Temperature 98.8 F Pulse Rate 88 78 78 Respiratory Rate 18 20 19 Blood Pressure 92/67 103/75 Blood Pressure [Left Arm] 109/74 Pulse Oximetry 98 99 95 10/17/19 17:30 Temperature Pulse Rate 75 Respiratory Rate 18 Blood Pressure Blood Pressure [Left Arm] 106/61 Pulse Oximetry 98 MDM - Weakness Lab Data Result diagrams: 10/17/19 15:15 10/17/19 15:15 Labs: Lab Results 10/17/19 10/17/19 10/17/19 Range/Units 15:15 15:15 15:15 WBC 9.7 (4.5-11.0) X10^3/uL RBC 4.33 L (4.5-5.9) X10^6/uL Hgb 11.7 L (13.5-17.5) g/dL Hct 35.1 L (41-53) % MCV 81.0 (80-100) fL MCH 27.0 (26-34) PG MCHC 33.3 (30-36) % RDW 14.5 (11.6-14.8) % Plt Count 483 H (150-400) X10^3/uL Neut % (Auto) 59.4 (50-75) % Lymph % (Auto) 31.5 (25-40) % [place] % (Auto) 5.6 (3-14) % Eos % (Auto) 2.6 (2-4) % Baso % (Auto) 0.9 (0-2) % Neut # (Auto) 5800 (4630-7471) /uL Lymph # (Auto) 3100 (6520-5937) /uL [place] # (Auto) 500 (0-900) /uL Eos # (Auto) 300 (0-450) /uL Baso # (Auto) 100 (0-100) /uL ESR (0-15) MM/HR Sodium 136 L (137-145) mmol/L Potassium 3.9 (3.4-5.1) mmol/L Chloride 100 (98-107) mmol/L Carbon Dioxide 28 (22-32) mmol/L BUN 9 (9-20) mg/dL Creatinine 0.60 L (0.66-1.25) mg/dL Estimated GFR > 60.0 (>60) mL/min BUN/Creatinine Ratio 15.0 (6-22) Glucose 116 H (70-100) mg/dL Lactate 1.6 (0.7-2.1) mmol/L Calcium 9.0 (8.4-10.2) mg/dL Magnesium 2.3 (1.6-2.3) mg/dL Total Bilirubin 0.4 (0.2-1.3) mg/dL AST 16 L (17-59) IU/L ALT 8 (<50) IU/L Alkaline Phosphatase 81 (38-126) U/L Total Creatine Kinase < 20 L (55-170) U/L CK-MB (CK-2) TNP CK-MB (CK-2) Rel Index TNP Troponin I < 0.012 (0.01-0.034) ng/mL C-Reactive Protein (<1.0) mg/dL NT-Pro-B Natriuret Pep 165 H (<125) pg/mL Total Protein 7.0 (6.3-8.2) g/dL Albumin 3.6 (3.5-5.0) g/dL Globulin 3.4 (1.7-4.1) g/dL Albumin/Globulin Ratio 1.1 (1.0-2.8) 10/17/19 10/17/19 10/17/19 Range/Units 15:15 15:15 15:15 WBC (4.5-11.0) X10^3/uL RBC (4.5-5.9) X10^6/uL Hgb (13.5-17.5) g/dL Hct (41-53) % MCV (80-100) fL MCH (26-34) PG MCHC (30-36) % RDW (11.6-14.8) % Plt Count (150-400) X10^3/uL Neut % (Auto) (50-75) % Lymph % (Auto) (25-40) % [place] % (Auto) (3-14) % Eos % (Auto) (2-4) % Baso % (Auto) (0-2) % Neut # (Auto) (2878-8158) /uL Lymph # (Auto) (9950-3000) /uL [place] # (Auto) (0-900) /uL Eos # (Auto) (0-450) /uL Baso # (Auto) (0-100) /uL ESR 64 H (0-15) MM/HR Sodium (137-145) mmol/L Potassium (3.4-5.1) mmol/L Chloride (98-107) mmol/L Carbon Dioxide (22-32) mmol/L BUN (9-20) mg/dL Creatinine (0.66-1.25) mg/dL Estimated GFR (>60) mL/min BUN/Creatinine Ratio (6-22) Glucose (70-100) mg/dL Lactate (0.7-2.1) mmol/L Calcium (8.4-10.2) mg/dL Magnesium (1.6-2.3) mg/dL Total Bilirubin (0.2-1.3) mg/dL AST (17-59) IU/L ALT (<50) IU/L Alkaline Phosphatase (38-126) U/L Total Creatine Kinase < 20 L (55-170) U/L CK-MB (CK-2) CK-MB (CK-2) Rel Index Troponin I (0.01-0.034) ng/mL C-Reactive Protein 4.3 H (<1.0) mg/dL NT-Pro-B Natriuret Pep (<125) pg/mL Total Protein (6.3-8.2) g/dL Albumin (3.5-5.0) g/dL Globulin (1.7-4.1) g/dL Albumin/Globulin Ratio (1.0-2.8) ECG Data Attestation: I personally reviewed and interpreted this ECG as follows: Interpretation: The patient's EKG obtained October 17 at 15:0 1:16 a.m. reveals a sinus rhythm with a ventricular rate of 91. AK interval QRS and QTC are all normal intervals. Emmett is normal. The patient QRS is very small and minute in lead III with a QS wave confirmation. There are no other appreciable Q-waves. There are no inverted T-waves appreciated. ST segments are nonspecific. There is no diagnostic acute ST segment changes. Discharge Plan Departure Patient Disposition: Admitted As Inpatient Clinical Impression: Pleural effusion Pneumonia Qualifiers: Pneumonia type: due to unspecified organism Laterality: left Lung location: unspecified part of lung Qualified Code(s): J18.9 - Pneumonia, unspecified organism Syncope Qualifiers: Syncope type: unspecified Qualified Code(s): R55 - Syncope and collapse Hypotension Qualifiers: Hypotension type: orthostatic hypotension Qualified Code(s): I95.1 - Orthostatic hypotension Hemiparesis Qualifiers: Hemiparesis etiology: unspecified Hemiparesis laterality: right dominant side Qualified Code(s): G81.91 - Hemiplegia, unspecified affecting right dominant side Referrals: Nargis Fernandez DO [Primary Care Provider] - Admit Date/Time: 10/17/19 18:12 Admit Provider: Silas Clarke
--- NOTE | 2019-10-17 15:43 | DI.RAD.S_ITS ---
PROCEDURE: XR CHEST 1V INDICATIONS: cough, chest pain, syncope TECHNIQUE: One view of the chest was acquired. COMPARISON: [facility], CR, XR CHEST 1V, 09/26/2019, 18:56. [facility], CR, XR CHEST 2V, 01/15/2019, 13:31. FINDINGS: Surgical changes and devices: None. Lungs and pleura: Lungs are abnormal with asymmetric left mid and lower lung alveolar infiltration. Suspect small subpulmonic left pleural effusions, but no pneumothorax. Mediastinum: Mediastinal contours appear normal. Heart size is normal. Bones and chest wall: No suspicious bony lesions. Overlying soft tissues appear unremarkable. IMPRESSION: Left mid and lower lung pneumonia, suspect small subpulmonic left pleural effusion. Dictated by: Gordo Neves M.D. on 10/17/2019 at 16:50 Approved by: Gordo Neves M.D. on 10/17/2019 at 16:51
[2019-10-17 15:52] LABS: Add Manual Diff / Slide Review NO; Basophils Absolute Auto 100 /uL (0-100); Basophils Percent Auto 0.9 % (0-2); Eosinophils Absolute Auto 300 /uL (0-450); Eosinophils Percent Auto 2.6 % (2-4); Hematocrit 35.1 % (41-53); Hemoglobin 11.7 g/dL (13.5-17.5); Lymphocytes Absolute Auto 3100 /uL (1100-4500); Lymphocytes Percent Auto 31.5 % (25-40); Mean Corpuscular HGB Conc 33.3 % (30-36); Monocytes Absolute Auto 500 /uL (0-900); Monocytes Percent Auto 5.6 % (3-14); Neutrophils Absolute Auto 5800 /uL (1500-7000); Neutrophils Percent Auto 59.4 % (50-75); Platelet Count 483 X10^3/uL (150-400); Red Blood Cell Count 4.33 X10^6/uL (4.5-5.9); Red Cell Distribution Width 14.5 % (11.6-14.8); White Blood Cell Count 9.7 X10^3/uL (4.5-11.0)
[2019-10-17 15:59] LABS: Lactate (Lactic Acid) 1.6 mmol/L (0.7-2.1)
--- NOTE | 2019-10-17 15:59 | PC.NURSE ---
Mother reports patient has been complaining of chest and back pain over last couple days. Recently treated with abx for pneumonia. Patient continues to have a productive cough
[2019-10-17 16:00] LABS: Alanine Aminotransferase 8 IU/L (<50); Albumin 3.6 g/dL (3.5-5.0); Albumin Globulin Ratio 1.1 (1.0-2.8); Alkaline Phosphatase 81 U/L (38-126); Aspartate Aminotransferase 16 IU/L (17-59); Bilirubin Total 0.4 mg/dL (0.2-1.3); Blood Urea Nitrogen 9 mg/dL (9-20); Carbon Dioxide 28 mmol/L (22-32); Chloride 100 mmol/L (98-107); Creatine Kinase < 20 U/L (55-170); Estimated Glomerular Filt Rate > 60.0 mL/min (>60); Globulin 3.4 g/dL (1.7-4.1); Glucose 116 mg/dL (70-100); HEMOLYSIS < 15 (0-50); Magnesium 2.3 mg/dL (1.6-2.3); Potassium 3.9 mmol/L (3.4-5.1); Sodium 136 mmol/L (137-145)
[2019-10-17 16:10] LABS: Troponin I < 0.012 ng/mL (0.01-0.034)
[2019-10-17 16:12] LABS: Creatine Kinase < 20 U/L (55-170)
[2019-10-17] MEDS: SODIUM CHLORIDE 0.9% 1,000 ML 150 ML IV (16:20)
[2019-10-17 16:35] LABS: NT-proBNP (BNP-Adult 18+) 165 pg/mL (<125)
[2019-10-17] MEDS: levoFLOXacin 750 MG/150 ML PIGGYBACK 100 MG IV (17:47)
[2019-10-17 18:32] LABS: C-Reactive Protein Quant 4.3 mg/dL (<1.0)
--- NOTE | 2019-10-17 18:38 | PM.HP.1 ---
History of Present Illness History of Present Illness Date Patient Seen: 10/17/19 Time Patient Seen: 18:38 Chief complaint: Lethargy Narrative: Lethargy Patient admitted through the emergency room this afternoon because of lethargy and weakness. History is basically from mom. Apparently last night was last time mom saw patient and he seemed to be his usual self. He is in the process of recovering from pneumonia apparently was hospitalized early part of the month. Today mom got a call from caregiver approximately 2:00 a.m. saying that the patient was weak and unsteady and lethargic seemingly was confused and difficult time standing. Mom came there and found to be as stated lethargic pale somewhat confused seemed like he almost fainted but did not. Paramedics were called. Apparently pair January she had difficult time finding of pulse and blood pressure CPR was not needed. Intravenous line was started and vital signs seemed to recur. Patient was then brought to the ER and evaluated. He was found to have progression of his pneumonia by a I x-ray left-sided of a pneumonia worse than it had been the last x-ray. He was admitted with a diagnosis of pneumonia as well as dehydration. Patient was given IV fluids and antibiotics in the ER and seemed to improve somewhat. No apparent seizures no incontinence no apparent loss of consciousness as per mom's description. 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 Underwent irradiation. Resulting in him hemiparesis of his right arm and leg. Has a chronic contractures right arm. Additionally because of the above has had some significant developmental delay. Patient currently lives by himself with a caregiver who comes in during the day is typically at home by himself at nighttime. Patient sees Dr. lazo for neurology. Dr. lazo felt perhaps some of his muscle spasticity may be from his Prozac so this was switched to sertraline. Mom relates that his depression got worse and has been on sertraline. Patient recently saw Dr. nolasco who increase sertraline to 100 mg. There did not appear to be any difference apparently in muscle spasms and the spasticity. Patient is being assessed and evaluated by Dr. lazo for consideration of Botox injections but apparently this was denied by insurance. Patient History Medical History Depression (Chronic) Dysarthria (Acute) Glioma (Chronic) Hemiparesis (Chronic ~1984) Pseudobulbar palsy (Acute) Surgical History Status post radiation therapy (Acute) Family & Social History Family History Mother No problems noted. Father No problems noted. Social History: household members family,none,caregiver Safety & Behavioral: Feels Safe in Current Yes Environment Been Physically Hurt or No Threatened By a Person Tobacco & Substance use: Smoking Status Former smoker alcohol intake never alcohol intake frequency 0-2 drinks per day Substance Use Type marijuana Meds Home Medications and Allergies Home Medications Medication Instructions Recorded Confirmed Type Battery Powered Lift #1 ea 03/02/18 10/09/19 Rx latanoprost 1 drp EYE-BOTH BEDTIME 09/18/18 10/09/19 History Power Chair #1 ea 10/16/18 10/09/19 Rx Semi-electric hospital bed #1 ea 11/17/18 10/09/19 Rx Disabled Parking #1 each 01/15/19 10/09/19 Rx nystatin 100,000 unit/gram topical 1 applictn TOP QID #15 gram 01/15/19 10/09/19 Rx powder Shower Chair #1 ea 07/04/19 10/09/19 Rx levofloxacin 750 mg PO DAILY #5 tab 09/28/19 10/09/19 Rx sertraline 100 mg tablet 100 mg PO DAILY #30 tab 10/09/19 10/09/19 Rx Allergies Allergy/AdvReac Type Severity Reaction Status Date / Time Penicillins [PENICILLINS] Allergy Severe RASH Verified 10/09/19 12:14 Review of Systems Review of Systems Narrative: As per mom's report ROS Unobtainable: All systems reviewed & are unremarkable except as noted in HPI and below Exam Vital Signs (past 8 hours): - 10/17/19 15:01 Temperature 98.8 F Pulse Rate 88 Respiratory Rate 18 Blood Pressure 92/67 Pulse Oximetry 98 Oxygen Delivery Method Room Air Narrative Exam Narrative: Patient is exam in the emergency room lying in his gurney. He appears in no distress resting quietly. He is conversant but has difficulty we understand his verbiage. HEENT is unremarkable. Lungs entirely clear does not take a deep breath. Difficult to get him set up. Cardiac exam regular rhythm no murmur gallop. Abdominal exam normal bowel sounds no the splenorenal aspirin tennis per His contracture of his right arm. Stiffness of his right leg. Objective Labs Result Diagrams: 10/17/19 15:15 10/17/19 15:15 Labs: Laboratory Results - last 24 hr 10/17/19 10/17/19 10/17/19 15:15 15:15 15:15 WBC 9.7 RBC 4.33 L Hgb 11.7 L Hct 35.1 L MCV 81.0 MCH 27.0 MCHC 33.3 RDW 14.5 Plt Count 483 H Neut % (Auto) 59.4 Lymph % (Auto) 31.5 [place] % (Auto) 5.6 Eos % (Auto) 2.6 Baso % (Auto) 0.9 Neut # (Auto) 5800 Lymph # (Auto) 3100 [place] # (Auto) 500 Eos # (Auto) 300 Baso # (Auto) 100 Sodium 136 L Potassium 3.9 Chloride 100 Carbon Dioxide 28 BUN 9 Creatinine 0.60 L Estimated GFR > 60.0 BUN/Creatinine Ratio 15.0 Glucose 116 H Lactate 1.6 Calcium 9.0 Magnesium 2.3 Total Bilirubin 0.4 AST 16 L ALT 8 Alkaline Phosphatase 81 Total Creatine Kinase < 20 L CK-MB (CK-2) TNP CK-MB (CK-2) Rel Index TNP Troponin I < 0.012 C-Reactive Protein NT-Pro-B Natriuret Pep 165 H Total Protein 7.0 Albumin 3.6 Globulin 3.4 Albumin/Globulin Ratio 1.1 10/17/19 10/17/19 15:15 15:15 WBC RBC Hgb Hct MCV MCH MCHC RDW Plt Count Neut % (Auto) Lymph % (Auto) [place] % (Auto) Eos % (Auto) Baso % (Auto) Neut # (Auto) Lymph # (Auto) [place] # (Auto) Eos # (Auto) Baso # (Auto) Sodium Potassium Chloride Carbon Dioxide BUN Creatinine Estimated GFR BUN/Creatinine Ratio Glucose Lactate Calcium Magnesium Total Bilirubin AST ALT Alkaline Phosphatase Total Creatine Kinase < 20 L CK-MB (CK-2) CK-MB (CK-2) Rel Index Troponin I C-Reactive Protein 4.3 H NT-Pro-B Natriuret Pep Total Protein Albumin Globulin Albumin/Globulin Ratio Chest x-rays reviewed with radiologist. There clearly is admitted progression of left lower lobe pneumonia based on the chest x-ray. Brain CT shows no acute changes changes consistent with prior to intervention Assessment & Plan Assessment & Plan narrative: 1. Acute illness seems to be a combination of dehydration and exacerbation of pneumonia. He apparently has been evaluated for questionable aspiration. Chest x-ray not typical that the study is consistent. However we will treat him with Levaquin only for the time being. IV hydration has helped to some degree. Will continue with this overnight. 2. He will get re-evaluated by speech therapy occupational therapy tomorrow will continue him on the sertraline per Dr. Fernandez Patient improved presumably [facility] night reassessing of his pulmonary status. Patient not requiring supplemental oxygen at this time 3. Dr. Fernandez to assume care tomorrow
[2019-10-17 18:45] LABS: Erythrocyte Sedimentation Rate 64 MM/HR (0-15)
[2019-10-17 20:13] LABS: Creatine Kinase 21 U/L (55-170)
[2019-10-17 20:14] LABS: Lactate (Lactic Acid) 0.8 mmol/L (0.7-2.1)
[2019-10-17] MEDS: SODIUM CHLORIDE 0.9% 1,000 ML 125 ML IV (21:05)
[2019-10-18] VITALS (8 sets, daily range): BP systolic 103–124; BP diastolic 61–91; PULSE 77–96; RESP 15–20; TEMP 36.1–37.1; O2SAT 97–99
--- NOTE | 2019-10-18 04:20 | PC.NURSE ---
Shift note: Received pt from evening shift. Patient AxOx3, able to make needs known including when he would like to turn. Speech impaired but understandable. Lung sounds diminished with fine crackles on left side, heart rate regular, 1+ pitting edema to feet. Patient reports he's not usually incontinent of urine but can be of stool, at time of assessment brief was checked and dry. Educated patient that we needed a urine sample, attempted to use urinal but was unsuccessful, later in shift patient was found to be incontinent of urine. Will pass U/A onto day shift if patient unable to void into urinal. Buttock's red but blanchable, scattered abrasions, and rash under right arm pit. Patient is a moderate fall risk, bed alarm is on and functioning, call light in reach and patient calls appropriately.
[2019-10-18] MEDS: SODIUM CHLORIDE 0.9% 1,000 ML 125 ML IV (05:27)
[2019-10-18 06:09] LABS: Add Manual Diff / Slide Review NO; Basophils Absolute Auto 100 /uL (0-100); Basophils Percent Auto 1.3 % (0-2); Eosinophils Absolute Auto 200 /uL (0-450); Eosinophils Percent Auto 3.2 % (2-4); Hematocrit 30.7 % (41-53); Hemoglobin 10.4 g/dL (13.5-17.5); Lymphocytes Absolute Auto 2700 /uL (1100-4500); Lymphocytes Percent Auto 42.4 % (25-40); Mean Corpuscular HGB Conc 33.7 % (30-36); Mean Corpuscular Hemoglobin 27.3 PG (26-34); Mean Corpuscular Volume 80.8 fL (80-100); Monocytes Absolute Auto 400 /uL (0-900); Monocytes Percent Auto 5.8 % (3-14); Neutrophils Absolute Auto 3000 /uL (1500-7000); Neutrophils Percent Auto 47.3 % (50-75); Platelet Count 372 X10^3/uL (150-400); Red Cell Distribution Width 14.4 % (11.6-14.8); White Blood Cell Count 6.3 X10^3/uL (4.5-11.0)
[2019-10-18 06:19] LABS: Blood Urea Nitrogen 8 mg/dL (9-20); Calcium 8.3 mg/dL (8.4-10.2); Carbon Dioxide 25 mmol/L (22-32); Chloride 106 mmol/L (98-107); Estimated Glomerular Filt Rate > 60.0 mL/min (>60); Glucose 76 mg/dL (70-100); HEMOLYSIS < 15 (0-50); Potassium 3.9 mmol/L (3.4-5.1); Sodium 138 mmol/L (137-145)
[2019-10-18] MEDS: SERTRALINE 50 MG TABLET 100 MG PO (07:42)
[2019-10-18] MEDS: ENOXAPARIN 40 MG/0.4 ML SYRINGE SUBCUT (07:42)
--- NOTE | 2019-10-18 09:24 | P.PN_ITS ---
Subjective Subjective Date Patient Seen: 10/18/19 Time Patient Seen: 09:24 Interval history: Pneumonia. Pretty much status quo. Patient denies any swallowing problems denies any choking problems for his feels like he would be interested in being discharged. Urinary incontinence. Apparently this is not typical for him. We will discontinue the IV fluids. Has not a bowel movement. Still has a cough still has his left chest wall pain overall perhaps feels benny ewhat better. Exam Vital Signs (past 8 hours): - 10/18/19 07:00 Temperature 98.1 F Pulse Rate 79 Respiratory Rate 15 Blood Pressure 124/88 Pulse Oximetry 98 Oxygen Delivery Method Room Air Oxygen Flow Rate 0 Narrative Exam Narrative: Patient is resting quietly in his hospital bed appears in no distress has some dry mucous membranes however. Chest exam decreased breath sounds throughout rhonchi left base. Cardiac exam regular rhythm no murmur gallop. Abdominal exam no hepatosplenomegaly no masses no tenderness Objective Labs Result Diagrams: 10/18/19 05:32 10/18/19 05:32 Labs: Laboratory Results - last 24 hr 10/17/19 10/17/19 10/17/19 15:15 15:15 15:15 WBC 9.7 RBC 4.33 L Hgb 11.7 L Hct 35.1 L MCV 81.0 MCH 27.0 MCHC 33.3 RDW 14.5 Plt Count 483 H Neut % (Auto) 59.4 Lymph % (Auto) 31.5 [place] % (Auto) 5.6 Eos % (Auto) 2.6 Baso % (Auto) 0.9 Neut # (Auto) 5800 Lymph # (Auto) 3100 [place] # (Auto) 500 Eos # (Auto) 300 Baso # (Auto) 100 ESR Sodium 136 L Potassium 3.9 Chloride 100 Carbon Dioxide 28 BUN 9 Creatinine 0.60 L Estimated GFR > 60.0 BUN/Creatinine Ratio 15.0 Glucose 116 H Lactate 1.6 Calcium 9.0 Magnesium 2.3 Total Bilirubin 0.4 AST 16 L ALT 8 Alkaline Phosphatase 81 Total Creatine Kinase < 20 L CK-MB (CK-2) TNP CK-MB (CK-2) Rel Index TNP Troponin I < 0.012 C-Reactive Protein NT-Pro-B Natriuret Pep 165 H Total Protein 7.0 Albumin 3.6 Globulin 3.4 Albumin/Globulin Ratio 1.1 10/17/19 10/17/19 10/17/19 15:15 15:15 15:15 WBC RBC Hgb Hct MCV MCH MCHC RDW Plt Count Neut % (Auto) Lymph % (Auto) [place] % (Auto) Eos % (Auto) Baso % (Auto) Neut # (Auto) Lymph # (Auto) [place] # (Auto) Eos # (Auto) Baso # (Auto) ESR 64 H Sodium Potassium Chloride Carbon Dioxide BUN Creatinine Estimated GFR BUN/Creatinine Ratio Glucose Lactate Calcium Magnesium Total Bilirubin AST ALT Alkaline Phosphatase Total Creatine Kinase < 20 L CK-MB (CK-2) CK-MB (CK-2) Rel Index Troponin I C-Reactive Protein 4.3 H NT-Pro-B Natriuret Pep Total Protein Albumin Globulin Albumin/Globulin Ratio 10/17/19 10/17/19 10/18/19 19:56 19:56 05:32 WBC 6.3 RBC 3.80 L Hgb 10.4 L Hct 30.7 L MCV 80.8 MCH 27.3 MCHC 33.7 RDW 14.4 Plt Count 372 Neut % (Auto) 47.3 L Lymph % (Auto) 42.4 H [place] % (Auto) 5.8 Eos % (Auto) 3.2 Baso % (Auto) 1.3 Neut # (Auto) 3000 Lymph # (Auto) 2700 [place] # (Auto) 400 Eos # (Auto) 200 Baso # (Auto) 100 ESR Sodium Potassium Chloride Carbon Dioxide BUN Creatinine Estimated GFR BUN/Creatinine Ratio Glucose Lactate 0.8 Calcium Magnesium Total Bilirubin AST ALT Alkaline Phosphatase Total Creatine Kinase 21 L CK-MB (CK-2) CK-MB (CK-2) Rel Index Troponin I C-Reactive Protein NT-Pro-B Natriuret Pep Total Protein Albumin Globulin Albumin/Globulin Ratio 10/18/19 05:32 WBC RBC Hgb Hct MCV MCH MCHC RDW Plt Count Neut % (Auto) Lymph % (Auto) [place] % (Auto) Eos % (Auto) Baso % (Auto) Neut # (Auto) Lymph # (Auto) [place] # (Auto) Eos # (Auto) Baso # (Auto) ESR Sodium 138 Potassium 3.9 Chloride 106 Carbon Dioxide 25 BUN 8 L Creatinine 0.50 L Estimated GFR > 60.0 BUN/Creatinine Ratio 16.0 Glucose 76 Lactate Calcium 8.3 L Magnesium Total Bilirubin AST ALT Alkaline Phosphatase Total Creatine Kinase CK-MB (CK-2) CK-MB (CK-2) Rel Index Troponin I C-Reactive Protein NT-Pro-B Natriuret Pep Total Protein Albumin Globulin Albumin/Globulin Ratio lab this morning noted BUN creatinine and normal. Will discontinue his IV fluids as stated. Hemoglobin has dropped slightly this may be dilutional. This will be followed up as an outpatient if necessary Assessment & Plan Assessment & Plan narrative: 1. Dehydration apparently has resolved. 2. Persistent pneumonia on IV Levaquin. 3. 3. Swallowing issues continue be a question. Chest x-ray does not look can't typical for aspiration but certainly is possibly per 4. Discontinue IV fluids and telemetry. Speech therapy physical therapy see pretty sent today. Patient apparently has adequate home health arrangements are made. 5. Blood cultures negative so far perhaps another day of hospitalization Quality VTE Deep Vein Thrombosis/Pulmonary Embolism Present on Admission: No
--- NOTE | 2019-10-18 10:10 | PT.IIE ---
Current Diagnoses Pneumonia, unspecified organism (10/17/19) Surgical History (Last Reviewed 10/17/19 @ 19:04 by Daniel Hernandez MD) Status post radiation therapy (Acute) Medical History (Last Reviewed 10/17/19 @ 19:04 by Daniel Hernandez MD) Depression (Chronic) Dysarthria (Acute) Glioma (Chronic) Hemiparesis (Chronic ~1984) Pseudobulbar palsy (Acute) Physical Therapy Inpatient Evaluation/Re-Eval M1 PT/OT-IP Prior Functional Status Start: 10/18/19 11:05 Freq: NEEDED Status: Active Protocol: Document 10/18/19 10:10 AB (Rec: 10/18/19 11:22 AB [email or web address]) Medical Review Prior Functional Status Medical History Reviewed Yes Communication able to make needs known Mobility and Gait pt stated that he uses a ashley lift for transfers and is non ambulatory; has a power w/c for mobility. Activities of Daily Living and IADL's pt stated that her caregiver assists her with dressing, toileting needs and showers. Social History Household Members family,none,caregiver Living Arrangements Apartment/Condo Number of Floors (Floors) One Floor Home Environment Walk in Shower Home Equipment Power Wheelchair/Scooter, Hospital Bed Additional Social History Comment pt stated that he does not use the toilet and uses a urinal and for BMs, caregiver just uses a bedpan or clean him up in bed. caregiver domes in at ~ 8-9 am and leaves at 1130 pm. Family checks in periodically. pt stated that he has a rolling shower chair; caregiver ashley lifts him to the chair and pushes the chair onto the shower. M2 PT-IP Current Condition Start: 10/18/19 11:05 Freq: NEEDED Status: Active Protocol: Document 10/18/19 10:10 AB (Rec: 10/18/19 11:22 AB [email or web address]) Physical Therapy Current Condition Current Condition Evaluation Date 10/18/19 Treatment Diagnosis PNA; pleural effusion; generalized weakness Onset Date 10/17/2019 M3 PT-IP Subjective Start: 10/18/19 11:05 Freq: NEEDED Status: Active Protocol: Document 10/18/19 10:10 AB (Rec: 10/18/19 11:22 AB [email or web address]) Subjective Physical Therapy Visit Type Type Initial Evaluation Visit Start Time 10:10 Visit Stop Time 10:48 Total Visit Minutes 38 Number of EXECUTIVE COACH Visits 0 Physical Therapy Visit Comments Patient Comments pt agreeable to do PT; refused to sit up on chair M4 PT-IP Mobility and Gait Start: 10/18/19 11:05 Freq: NEEDED Status: Active Protocol: Document 10/18/19 10:10 AB (Rec: 10/18/19 11:22 AB [email or web address]) PT-Bed Mobility Assessment Rolling Level of Assist Maximal Assistance,2 Person Assistance Supine to Sit Supine to Sit Maximum Assistance,Total Assistance,2 Person Assistance ,Head of Bed Elevated,Bedrails Sit to Supine Sit to Supine Total Assistance,2 Person Assistance Scooting Scooting to Edge of Bed Dependent Scooting Up and Down in Bed Dependent PT-Transfer Assessment Comments Mobility Comments Pt with increase extensor tone on RLE and completed stretching and inhibition techniques on RLE and stretching on LLE prior to mobility. pt completed supine to sit max Ax 2 to total AX 2 and max cues. pt requires max A x 1-2 for sitting balance on EOB. with increase posteior and L sided LOB. pt stated that he has not been able to hold his trunk for a long time but able to sit on his electric w/c and shower chair due to back support and armrests. pt refused to sit up on the chair. assisted back to bed total A x 2 and max cues. positioned in bed requiring total A x2 . informed pt that no PT needs at this time. Nurse also informed. PT-Balance Assessment Sitting Balance and Reactions Static Sitting Balance Ability Poor Dynamic Sitting Balance Ability Poor M5 PT-IP Objective Assessments Start: 10/18/19 11:05 Freq: NEEDED Status: Active Protocol: Document 10/18/19 10:10 AB (Rec: 10/18/19 11:22 AB [email or web address]) Orientation Orientation/Cognition Level of Alertness Alert Orientation Name Gross Range of Motion Lower Extremity ROM Assessment Bilaterally Impaired Impairments L hip flexion only up to ~ 70 degrees; R hip flexion ~ 60 deg Strength Lower Extremity Strength Assessment Bilaterally Impaired Comments Strength Comments RLE: 1/5 LLE 3-/5 Muscle Tone Muscle Tone WNL No Muscle Tone Location Right Lower Extremity Type of Tone Hypertonicity,Rigidity, Extensor,Clonus Severity of Tone Moderate M6 PT-IP Treatment Start: 10/18/19 11:05 Freq: NEEDED Status: Active Protocol: Document 10/18/19 10:10 AB (Rec: 10/18/19 11:22 AB [email or web address]) Physical Therapy Treatment Education Education Provided Safety Other Treatments Other Treatment Performed completed bilateral LE into stretching into flexion with ~ 10 sec hold with each change of degree into flexion. M7 PT-IP Assessment and Plan Start: 10/18/19 11:05 Freq: NEEDED Status: Active Protocol: Document 10/18/19 10:10 AB (Rec: 10/18/19 11:22 AB [email or web address]) PT Summary Assessment and Plan Potential Rehabilitation Potential Fair Status of Condition at Evaluation Stable Summary Impairments ROM,Strength,Balance, Coordination,Sensation,Tone, Cognition,Bed Mobility, Transfers,Gait,Activity Tolerance Assessment Summary PT eval completed. Pt is at OF and no further PT intervention indicated at this time. pt requires a ashley lift for transfers before admission and has a caregiver that comes in to assists pt from 1-9 am to 1130 pm. Frequency of Treatment Frequency Of Treatment Discharge Recommendations To Nursing Amount of Assist Needed 2 Person Assist,Total Assistance,Mechanical Lift Discharge Recommendations PT Discharge Recommendations Home with 24/7 Assist Transportation Needs at Discharge Wheelchair/Cabulance
--- NOTE | 2019-10-18 11:51 | CM.DPC ---
DCP Cont: Faxed H&P to Radha [facility] at fax # [phone] as requested. Fax confirmation scanned in. Alize Beck, [facility] [place] Chief Medical Director
--- NOTE | 2019-10-18 13:35 | CM.DANOTE ---
Pt. is a pleasant 39 year old man. When I arrived to room he was finishing is lunch. His mom and [employer] counseling case manager Maria Antonia [place] were at bedside. Pt. was alert and answering questions appropriately with all of us. Patient expressed a desire to go home. Speech therapis tarrived to BS. Does extensive re-education about appropriate diet and swallowing devices for safety. Spoke to nursing about ordering a nectar liquid and mechanical aphasia diet for next meal(s). Also requested nursing to sit patient up - no reclining- to consume meals and liquids.
--- NOTE | 2019-10-18 14:38 | ST.IPCSEOM ---
Visit Care Team Role Provider Type Daniel Hernandez MD Emergency Provider Physician Specialty: Emergency Medicine Address: [address] [place] [address], [id number] Email: Nargis Fernandez DO Attending Provider Physician Primary Care Provider Specialty: Family Practice Address: [address] [place] [address], [place], [address] Email: [email or web address] Silas Clarke MD Admit Provider Physician Other Providers Specialty: Family Practice Address: [address] [place] [address], [address] Email: [email or web address] Current Diagnoses Pneumonia, unspecified organism (10/17/19) Past Medical History (Last Reviewed 10/17/19 @ 19:04 by Daniel Hernandez MD) Depression (Chronic Medical) Dysarthria (Acute Medical) Glioma (Chronic Medical) Age 5, inoperable, 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 Clarke Reason for Referral hx of dysphagia Setting Assessment Location Acute Care Visit Type Note Type Initial Evaluation Patient Information Identification Type Name,ID Wristband,Other History Jonnie is a 39 year old male known to this REGISTRY NP. He was seen for a MBSS on 09/27/19 which indicated severe oropharyngeal dysphagia. Airway penetration and aspiration were observed across PO trials (liquids primarily, unchewed pieces remained in valeculla). Jonnie did not reflexively cough or throat-clear. Aspiration was SILENT. Subjective Observations Jonnie, his mother and caregiver were in Jonnie's room . Jonnie was reclined and his lunch tray was on his table in front of him. He did not have a dysphagia diet. Evaluation Oral Impairment Severely Impaired Oral Phase Comments Anterior munching, incomplete mastication, poor oral care. Tongue-rocking with delayed A- P propulsion. Poor bolus control leading to premature spillage into the pharynx. See MBS results (09/28/19) Pharyngeal Impairment Severely Impaired Pharyngeal Strategies Double Swallow,Small Bites and Sips Pharyngeal Phase Comments POOR airway protection. Silent aspiration. Audible swallow with poor bolus control. See MBS results (09/28/19) Findings Dysphagia Type SEVERE OROPHARYNGEAL DYSPHAGIA Rehabilitation Potential Poor Impressions Jonnie's mother reported that he refuses thickened water at home. His caregivers have given his thin water. I suggested that they flavor the thickened water with fruit juice, or KoolAid, etc to make it more palatable. Diet Recommendations Liquids Order [place] Diet Order Dysphagia Mechanical Medication Recommendations Crushed in Carrier,One at a Time Comments small diameter straws ONLY Aspiration Precautions Recommended Precautions Upright at 90 Degrees,Frequent Rest Periods,Small Bites/Sips ,Double Swallow Treatment Plan Placement Recommendations after Home,Home with Home Health Discharge Appropriate for Therapy Yes Therapy Recommendations ST to follow with Pt, caregiver and mother re: aspiration risk and diet compliance. ST recommended at discharge with HH if pt qualifies. REGISTRY NP Follow Up 1x follow-up
--- NOTE | 2019-10-18 15:35 | OT.IP.TRT ---
Current Diagnoses Pneumonia, unspecified organism (10/17/19) Occupational Therapy Treatment Note M3 OT- IP Subjective and Pain Start: 10/18/19 15:50 Freq: Status: Active Protocol: Document 10/18/19 15:35 PJM (Rec: 10/18/19 15:56 PJM [id number]) OT- Subjective Occupational Therapy Visit Type Type Administrative Note Visit Start Time 15:35 Notes OT referral received. Chart screened. Pt is a 39 yr old male admitted with persistent PNA possibly aspiration related. 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 Pt has SHA[employer] caregivers daily from 8 AM to 11:30 PM who assist with grooming, dressing, bathing, toileting and transfer from hospital bed to power w/c via ashley lift. Pt feeds himself with SBA with standard utensil after set up with L hand. Pt has all necessary equipment at home including rolling shower chair. Pt appears to be at baseline level of self care function with no OT goals identified for this admission. No Charge.
[2019-10-18] MEDS: levoFLOXacin 750 MG/150 ML PIGGYBACK 100 MG IV (17:55)
--- NOTE | 2019-10-18 21:26 | PC.NURSE ---
Patient is alert and oriented x3. His speech is slurred to baseline, but able to be understood with repetition. He is on nectar thick liquids for silent aspiration precautions. There is blancheable redness on his buttocks. He is able to communicate his needs and use the call light to request turns and brief changes. He is incontinent of bowel and bladder, and needs barrier cream with brief changes. He is a moderate fall risk, and has the bed alarm on. He has his call light and bed remote in reach, with the bed low and locked.
[2019-10-19 03:00] VITALS: BP 106/71; PULSE 77; RESP 16; TEMP 36.3; O2SAT 96
[2019-10-19 06:19] LABS: Add Manual Diff / Slide Review NO; Basophils Absolute Auto 100 /uL (0-100); Basophils Percent Auto 1.2 % (0-2); Eosinophils Absolute Auto 200 /uL (0-450); Eosinophils Percent Auto 3.5 % (2-4); Hematocrit 34.2 % (41-53); Hemoglobin 11.2 g/dL (13.5-17.5); Lymphocytes Absolute Auto 2500 /uL (1100-4500); Lymphocytes Percent Auto 44.2 % (25-40); Mean Corpuscular HGB Conc 32.7 % (30-36); Mean Corpuscular Hemoglobin 26.6 PG (26-34); Mean Corpuscular Volume 81.2 fL (80-100); Monocytes Absolute Auto 400 /uL (0-900); Monocytes Percent Auto 6.8 % (3-14); Neutrophils Absolute Auto 2500 /uL (1500-7000); Neutrophils Percent Auto 44.3 % (50-75); Platelet Count 364 X10^3/uL (150-400); Red Blood Cell Count 4.21 X10^6/uL (4.5-5.9); Red Cell Distribution Width 14.3 % (11.6-14.8); White Blood Cell Count 5.7 X10^3/uL (4.5-11.0)
[2019-10-19 06:23] LABS: Blood Urea Nitrogen 7 mg/dL (9-20); Calcium 8.7 mg/dL (8.4-10.2); Carbon Dioxide 26 mmol/L (22-32); Chloride 101 mmol/L (98-107); Estimated Glomerular Filt Rate > 60.0 mL/min (>60); Glucose 70 mg/dL (70-100); HEMOLYSIS 19 (0-50); Sodium 135 mmol/L (137-145)
--- NOTE | 2019-10-19 06:32 | PC.NURSE ---
Dr.. Zamora notified that pt's. intake was inadequate, NS infusing @ KVO. Only documented intake since admit was 100 cc on 10/18, 3-11 shift. Offered some thing to drink @ 0350 but he declined. No new order receive from Dr. Zamora. He stated Will see him this morning. Will monitor & report to day RN.
[2019-10-19 07:35] VITALS: BP 113/81; PULSE 75; RESP 16; TEMP 36.2; O2SAT 99
[2019-10-19] MEDS: SERTRALINE 50 MG TABLET 100 MG PO (08:05)
[2019-10-19] MEDS: ENOXAPARIN 40 MG/0.4 ML SYRINGE SUBCUT (08:06)
--- NOTE | 2019-10-19 09:51 | ST.IPDYTX ---
Visit Care Team Role Provider Type Nargis Fernandez DO Other Providers Physician Primary Care Provider Specialty: Family Practice Address: [address] [place] [address], [place], [address] Email: [email or web address] Daniel Hernandez MD Emergency Provider Physician Specialty: Emergency Medicine Address: [address] [place] [address], [id number] Email: Joshua Phillip MD Attending Provider Physician Specialty: Internal Medicine Address: [address] [place] [address], [address] Email: [email or web address] Silas Clarke MD Admit Provider Physician Other Providers Specialty: [employer] [facility] Address: [address] [place] [address], [address] Email: [email or web address] MARINE ENGINEER CPVEC Dysphagia Treatment MARINE ENGINEER [employer] Dysphagia Treatment Start: 10/19/19 09:29 Freq: Status: Active Protocol: Document 10/19/19 09:29 TLC (Rec: 10/19/19 09:51 TLC [email or web address]) Dysphagia Treatment Session Time Visit Start Time 09:00 Visit Stop Time 09:30 Total Visit Minutes 30 Setting Assessment Location Acute Care Visit Type Note Type Treatment Note Next Note Type Next Note Type Treatment Note Patient Information Identification Type Name Subjective Observations Patient was seen lying in bed in room watching tv. No family members present. Treatment Treatment Activities No PO trials on this date. Purpose of therapy was for patient education regarding aspiration, pneumonia, oral hygiene and strengthening exercises. Patient has a history of poor oral hygiene. At home, he reports using a timed electric toothbrush once a day at night time. Verbal and written education was provided regarding relation between oral health/hygiene and development of pneumonia. I recommended he increase the frequency with which he brushes his teeth from once daily to three times daily. He verbalized understanding. We then discussed his oropharyngeal weakness and exercises to strengthen/ improve swallow function and decrease aspiration. We reviewed the effortful swallow which patient reports he is familiar with and completes. We also discussed the Adriana maneuver which was difficult for the patient to perform. Lastly, we discussed the chin tuck against resistance using a rolled towel under his chin and straw sucking against resistance. Written exercises including number of repetitions was provided and I asked that he share this with his caregivers for assistance in completing exercises at home. Patient verbalized understanding, but ongoing education and assessment of compliance is recommended either through home health speech therapy or outpatient speech therapy. Assessment Patient Response to Treatment Good Rehab Potential Fair Assessment of Improvement Patient has severe oropharyngeal dysphagia and was observed to aspirate both thin and nectar thick consistencies on his last MBSS completed earlier this month. Given significant dysphagia and presence of aspiration, poor oral hygiene and decreased mobility (wheelchair bound), patient remains at increased risk for developing aspiration pneumonia. ( Elicia et al, 1998) It is strongly recommended that he receive either or outpatient ST for ongoing education regarding the importance of oral care and completing strengthening exercises to decrease his risk of developing recurrent aspiration pneumonia. Treatment Plan Placement Recommendation after Discharge Home with Home Health, Outpatient Therapy Appropriate for Continued Therapy Yes Therapy Recommendations Ongoing education and dysphagia therapy for oropharyngeal strengthening. Repeat MBS when appropriate. Dysphagia Goals Jonnie will be independent in completing oral care three times a day to decrease bacteria in the mouth and decrease risk of developing aspiration pneumonia. With verbal reminders, Jonnie will complete oropharyngeal strengthening exercises as provided on written HEP daily in order to improve swallow function and decrease occurrence of aspiration.
[2019-10-19 11:21] VITALS: BP 109/67; PULSE 87; RESP 16; TEMP 36.5; O2SAT 97
--- NOTE | 2019-10-19 12:46 | P.DS_ITS ---
History of Present Illness History of Present Illness Chief complaint: Lethargy Narrative: Patient admitted through the emergency room this afternoon because of lethargy and weakness. History is basically from mom. Apparently last night was last time mom saw patient and he seemed to be his usual self. He is in the process of recovering from pneumonia apparently was hospitalized early part of the month. Today mom got a call from caregiver approximately 2:00 a.m. saying that the patient was weak and unsteady and lethargic seemingly was confused and difficult time standing. Mom came there and found to be as stated lethargic pale somewhat confused seemed like he almost fainted but did not. Paramedics were called. Apparently pair January she had difficult time finding of pulse and blood pressure CPR was not needed. Intravenous line was started and vital signs seemed to recur. Patient was then brought to the ER and evaluated. He was found to have progression of his pneumonia by a I x-ray left-sided of a pneumonia worse than it had been the last x-ray. He was admitted with a diagnosis of pneumonia as well as dehydration. Patient was given IV fluids and antibiotics in the ER and seemed to improve somewhat. No apparent seizures no incontinence no apparent loss of consciousness as per mom's description. 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 Underwent irradiation. Resulting in him hemiparesis of his right arm and leg. Has a chronic contractures right arm. Additionally because of the above has had some significant developmental delay. Patient currently lives by himself with a caregiver who comes in during the day is typically at home by himself at nighttime. Patient sees Dr. lazo for neurology. Dr. lazo felt perhaps some of his muscle spasticity may be from his Prozac so this was switched to sertraline. Mom relates that his depression got worse and has been on sertraline. Patient recently saw Dr. nolasco who increase sertraline to 100 mg. There did not appear to be any difference apparently in muscle spasms and the spasticity. Patient is being assessed and evaluated by Dr. lazo for consideration of Botox injections but apparently this was denied by insurance. Discharge Providers Provider Date of admission: 10/17/19 18:12 Discharge Date: 10/19/19 Primary care physician: Nargis Fernandez, Consults: 10/17/19 18:29 Consult to Occupational Therapy Evaluate & Treat Comment: speech Physician Instructions: Evaluate and treat Consult to Physical Therapy Evaluate & Treat Comment: Physician Instructions: Evaluate and Treat 10/18/19 09:16 Consult to Speech Therapy Evaluate & Treat Comment: Physician Instructions: Evaluate and treat Discharge provider: Joshua Phillip MD Summary Hospital Course Discharge Diagnosis: 1. Recurrent aspiration pneumonia 2. Chronic dysphagia decubitus pressure ulcer stage II, subacute, present on admission 3. Functional quadriplegia Hospital Course: Patient was admitted due to worsening shortness of breath, cough and fever with generalized malaise. Chest x-ray showed left lung infiltrate. He was admitted earlier this month with left lung pneumonia and got better with antibiotics but likely is aspirating. He was started on Levaquin. Speech therapy evaluated swallowing and noted aspiration and recommending nectar thick fluids with mechanical soft texture. Patient is symptomatically improved at time of discharge and ready to go home. We are arranging home health to evaluate care at home which seems adequate with daily caregivers, motorized wheelchair and Carlos Alberto lift. Patient is being discharged with additional 5 days of Levaquin to complete 1 week of therapy. Status at Discharge Cognitive/behavioral status at discharge: oriented Functional status at discharge: wheelchair bound Overall status at discharge: patient is progressing back to baseline Time Spent with Patient Time spent: Greater than 30 minutes Exam Vital Signs (past 8 hours): - 10/19/19 07:35 10/19/19 11:21 Temperature 97.2 F L 97.7 F Pulse Rate 75 87 Respiratory Rate 16 16 Blood Pressure 113/81 109/67 Pulse Oximetry 99 97 Oxygen Delivery Method Room Air Oxygen Flow Rate 0 Objective Labs Result Diagrams: 10/19/19 05:41 10/19/19 05:41 Labs: Laboratory Results - last 24 hr 10/19/19 10/19/19 05:41 05:41 WBC 5.7 RBC 4.21 L Hgb 11.2 L Hct 34.2 L MCV 81.2 MCH 26.6 MCHC 32.7 RDW 14.3 Plt Count 364 Neut % (Auto) 44.3 L Lymph % (Auto) 44.2 H [place] % (Auto) 6.8 Eos % (Auto) 3.5 Baso % (Auto) 1.2 Neut # (Auto) 2500 Lymph # (Auto) 2500 [place] # (Auto) 400 Eos # (Auto) 200 Baso # (Auto) 100 Sodium 135 L Potassium 4.0 Chloride 101 Carbon Dioxide 26 BUN 7 L Creatinine 0.50 L Estimated GFR > 60.0 BUN/Creatinine Ratio 14.0 Glucose 70 Calcium 8.7 Discharge Plan Discharge Plan Patient Disposition: Home Discharge comment: You were treated for aspiration pneumonia. Complete antibiotic prescription. Next dose due at 6 pm. Follow speech therapy recommendations for nectar thick fluids and dysphagia mechanical soft diet. Follow up with primary care provider. Discharge orders & Medications Prescriptions: New levofloxacin [Levaquin] 750 mg tablet 750 mg PO DAILY Qty: 5 RF: 0 Continued (DME) Disabled Parking Qty: 1 RF: 0 sertraline 100 mg tablet 100 mg PO DAILY Qty: 30 RF: 3 (DME) Battery Powered Lift Qty: 1 RF: 0 (DME) Power Chair tall Qty: 1 RF: 0 (DME) Semi-electric hospital bed Qty: 1 RF: 0 (DME) Shower Chair Qty: 1 RF: 0 latanoprost 0.005 % Drops 1 drp EYE-BOTH BEDTIME RF: 0 Follow up/Referrals: Nargis Fernandez DO [Primary Care Provider] - (PLEASE CALL TO SCHEDULE APPOINTMENT) Diet/Activity/Treatments Diet comment: dysphagia nectar/mechanical soft Visit Report/Discharge Packet Instructions: DI for Aspiration Pneumonia, How to Prevent Falls Discharge Data Primary Care Provider: Nargis Fernandez Attending Provider: Joshua Phillip Admit Date/Time: 10/17/19 18:12 Quality VTE Deep Vein Thrombosis/Pulmonary Embolism Present on Admission: No
--- NOTE | 2019-10-19 13:10 | CM.DPC ---
DCP continued. EMR Reviewed: CM/RN faxed signed face to face, D/C summary and PT evaluation notes faxed to [facility]. Patient is to be D/C home with HH and has [facility] client care consultant in place to help with additional home care needs. Sonia Wadsworth RN.
--- NOTE | 2019-10-19 14:14 | PC.NURSE ---
Discharge Orders for discharge were received. Patient and family agreeable to discharge with home health. Scripts given to patient family member. IV removed intact. Patient/family were given information regarding diagnosis, signs and symptoms to be aware of, new diet orders, follow up instructions and information/teaching on medications to take. Understanding of this information was signified, verified by the teach back method. Patient was then lifted into wheelchair via sling and placed in own power chair. Patient then left floor with family and staff for hospital exit with heel protectors and waffle cushion in place in chair.
--- NOTE | 2019-10-19 16:20 | CM.DPNOTE ---
Spoke with Carlito Bowden [facility]. Patient's medicaid only allows for 6 visits a year in HH. Told Carlito to be consevative with this visit since it is likely he will be inpatient again this year due to his aspiration risks. The goal of this HH visit is assessment and education of surroundings, diet and caregivers to be certain they are updated about best practice and care of this patient. Will try to meet these goals in a manner to leave some time for future HH services.
--- NOTE | 2019-10-23 09:29 | CM.DPC ---
DCP Cont: Faxed 10/19/19 encounter note (discharge summary) to Zora at [facility] at fax # [phone] as requested. Fax confirmation scanned in. Alize Beck, [employer] Public [employer] Educator
== END 2019-10-19 13:30 | disposition home or self-care (01) ==
LOC: ED 18:01 → AC 18:24
PROVIDERS: Admitting Provider Family Medicine; Emergency Provider Emergency Medicine; PCP Family Medicine; Visit Provider Internal Medicine
DX: J18.9 Pneumonia, unspecified organism (principal); R53.1 Weakness; G81.91 Hemiplegia, unspecified affecting right dominant side; E86.0 Dehydration; R53.83 Other fatigue; R13.10 Dysphagia, unspecified; L89.92 Pressure ulcer of unspecified site, stage 2
CPT/HCPCS: 36415; 70450; 71045; 80048; 80053; 82550; 82962; 83605; 83735; 83880; 84484; 85025; 85651; 86140; 87040; 92526; 92610; 93005; 94760; 94762; 96361; 96365; 96366; 96372; 97161; 99219; 99224; 99284; 99285; G0378; J1650; J1956

== ENCOUNTER 2020-01-03 08:30 | Emergency (ER) | payer MEDICAID, OTHER, SELFPAY ==
[2019-11-14 10:24] VITALS: BMI 21.5
[2020-01-03 08:35] VITALS: BP 146/107; PULSE 103; RESP 20; TEMP 36.7; O2SAT 96
--- NOTE | 2020-01-03 08:37 | ED_ITS ---
HPI - General Adult General Chief complaint: Upper Respiratory Symptoms Stated complaint: sore throat Time Seen by Provider: 01/03/20 08:36 Source: patient and family (mother) Mode of arrival: Wheelchair (uses powered wheelchair ) Limitations: no limitations History of Present Illness HPI narrative: This is a 39-year-old male who comes to the emergency department with complaint of sore throat and increased phlegm. Patient is permanently in a wheelchair secondary glioma brain tumor the age of 5 and has chronic right-sided weakness and almost complete lack of use secondary to radiation and treatment. Patient has had a sore throat for about 2 weeks. He had what sounds like a CT very a or a chocolate ache with a creamy center yesterday and this irritated his throat significantly. He has had some increased phlegm although he normally has some. Patient has not had any fevers that they are aware of his a patient and mother states his voice does sound a little different. He has been able to swallow all of his secretions but has been painful. Patient has not felt like he is having tightness or swelling of his throat or airway. He denies any chest pain. He has felt a little bit more short of breath and his chest he has not had any other GI or urinary symptoms. He has had pneumonia in the past but states this does not feel like that. He is on medication for depression but no other medications regularly. Related Data Home Medications Medication Instructions Recorded Confirmed latanoprost 1 drp EYE-BOTH BEDTIME 09/18/18 11/14/19 Previous Rx's Medication Instructions Recorded Battery Powered Lift #1 ea 03/02/18 Power Chair #1 ea 10/16/18 Semi-electric hospital bed #1 ea 11/17/18 Disabled Parking #1 each 01/15/19 Shower Chair #1 ea 07/04/19 sertraline 100 mg tablet 100 mg PO DAILY #30 tab 10/09/19 sulfamethoxazole 800 1 tab PO BID #26 tab 11/14/19 mg-trimethoprim 160 mg tablet levofloxacin [Levaquin] 750 mg PO DAILY #7 tab 01/03/20 Allergies Allergy/AdvReac Type Severity Reaction Status Date / Time Penicillins [PENICILLINS] Allergy Severe RASH Verified 11/14/19 15:48 Review of Systems Review of Systems ROS Unobtainable: All systems reviewed & are unremarkable except as noted in HPI and below Patient History Medical History Depression (Chronic) Dysarthria (Acute) Glioma (Chronic) Hemiparesis (Chronic ~1984) Pseudobulbar palsy (Acute) Social History marital status: unmarried,single household members: family, caregiver and none Smoking Status: Former smoker alcohol intake: never substance use type: marijuana Smoking Status: Former smoker alcohol intake frequency: 0-2 drinks per day Substance Use Type: marijuana Exam Narrative Exam Narrative: GEN: well nourished, well appearing male, alert and oriented x 3, patient appears to be in mild distress. HEENT: Atraumatic, pupils are equal round reactive to light, extraocular movements are intact, nares are clear, TMs are clear with no fluid, there is no conjunctival pallor. Throat is clear without any exudates, erythema, tonsillar enlargement or uvular deviation, patient does sound hoarse. He does have clear phlegm. Patient does have any obvious swelling, erythema or skin changes to the neck. HEART: Regular rate and rhythm without murmur, clicks, rubs. LUNGS:Lungs clear to auscultation, no wheezes, rales, crackles, chest moves symmetrically, no tachypnea accessory muscle use. ABD:bowel sounds normal, soft, non-tender, no guarding, rebound, rigidity, no masses noted, no hepatosplenomegaly MSCL: Non-tender, patient has use of the left upper extremity with very minimal use of the right upper extremity. NEURO:CN 2-12 intact, sensation normal. SKIN: No rash, erythema or other skin changes appreciated. Initial Vital Signs Initial Vital Signs: Vital Signs Temperature 98.0 F 01/03/20 08:35 Pulse Rate 103 H 01/03/20 08:35 Respiratory Rate 20 01/03/20 08:35 Blood Pressure 146/107 H 01/03/20 08:35 Pulse Oximetry 96 01/03/20 08:35 Course Orders Ordered: Discontinued Medications Dexamethasone (Decadron) 10 mg PO NOW ONE Stop: 01/03/20 10:09 Last Admin: 01/03/20 10:16 Dose: 10 mg Documented by: BTONER Vital Signs Vital signs: Vital Signs - 8 hr 01/03/20 10:32 Pulse Rate 87 Respiratory Rate 20 Blood Pressure [Left Arm] 139/95 H Pulse Oximetry 98 Medical Decision Making Lab Data Labs: Point of Care Testing Rapid Strep A Negative Point of care testing: Point of Care Testing Rapid Strep A Negative Imaging Data Chest x-ray: Radiologist's Impression: [address] [address] XRay Report Signed Patient: Jonnie Christopher JMR#: [id number] : 1980Acct:[id number] Age/Sex: 39 / MDate of Service: 01/03/20 Loc: ED Accession Number: [id number] Procedure: XR chest 1V Ordering Provider: Wendie Harrell D.O. PROCEDURE: XR CHEST 1V INDICATIONS: sore throat, sob, in wheelchair from prior brain tumor TECHNIQUE: One view of the chest was acquired. COMPARISON: [facility], CR, XR CHEST 1V, 10/17/2019, 16:20. FINDINGS: Surgical changes and devices: None. Lungs and pleura: Small left-sided pleural effusion. Increased opacification in the left lung base which could represent atelectasis or developing pneumonia. Mediastinum: Mediastinal contours appear normal. Heart size is normal. Bones and chest wall: No suspicious bony lesions. Overlying soft tissues appear unremarkable. IMPRESSION: 1. Small subpleural effusion. 2. Increased left basilar opacification compatible atelectasis versus developing pneumonia. Dictated by: Ligia Ham MD, PhD on 01/03/2020 at 9:11 Approved by: Ligia Ham MD, PhD on 01/03/2020 at 9:13 [facility] Narrative Medical decision making narrative: Patient also had throat culture included with his chronic medical issues felt is was appropriate to include for potentially other causes. CXR shows pleural effusion versus pneumonia. Slightly increased since last visit. Patient was last discharged home on Levaquin. His point of care strep is negative. Discussed with patient and family, at this time will give a antibiotic prescription but they may wait 24 hours to see how patient is doing although he has had some shortness of breath. His symptoms were improved with some nasal suctioning. He did have a little bit of nasal traumas initially they tried for nasal suction and caused some bleeding. But then with oral suctioning patient feels like his airway is little bit easier to breathe. We did give a single dose of Decadron in the department. Patient has not had any known exposures. No fevers but has been a little short of breath and with his multiple medical issues discussed coronavirus testing he does have caregivers in and out of the house. So this was ordered and is pending. Discharge Plan Departure Patient Disposition: Home Clinical Impression: Pharyngitis, Pleural effusion Discharge Date/Time: 01/03/20 11:02 Activity Restrictions/Additional Instructions: Follow up in the next 2-3 days for recheck with your physician, even if by phone. Call the emergency depart in 48-72 hours to follow up your throat culture results. Coronvirus test takes 2-3 days to result. If you are having any fevers, increasing shortness of breath or other changes go ahead and start oral antibiotics. Your x-ray today does show possible pneumonia versus pleural effusion and is in the same location as your last visit in September so it is unclear if this is a new infection or pleural effusion. Return for fevers, increasing shortness of breath, swelling of the throat, difficulty breathing, muffled voice, inability to swallow secretions are saliva, lightheadedness or passing out, persistent vomiting or any other new or concerning symptoms. Prescriptions: New levofloxacin [Levaquin] 750 mg tablet 750 mg PO DAILY Qty: 7 RF: 0 No Action (DME) Disabled Parking Qty: 1 RF: 0 sertraline 100 mg tablet 100 mg PO DAILY Qty: 30 RF: 3 (DME) Battery Powered Lift Qty: 1 RF: 0 (DME) Power Chair tall Qty: 1 RF: 0 (DME) Semi-electric hospital bed Qty: 1 RF: 0 (DME) Shower Chair Qty: 1 RF: 0 sulfamethoxazole-trimethoprim [Bactrim DS] 800-160 mg tablet 1 tab PO BID Qty: 26 RF: 0 latanoprost 0.005 % Drops 1 drp EYE-BOTH BEDTIME RF: 0 Referrals: Nargis Fernandez DO [Primary Care Provider] -
--- NOTE | 2020-01-03 08:46 | DI.RAD.S_ITS ---
PROCEDURE: XR CHEST 1V INDICATIONS: sore throat, sob, in wheelchair from prior brain tumor TECHNIQUE: One view of the chest was acquired. COMPARISON: [facility], CR, XR CHEST 1V, 10/17/2019, 16:20. FINDINGS: Surgical changes and devices: None. Lungs and pleura: Small left-sided pleural effusion. Increased opacification in the left lung base which could represent atelectasis or developing pneumonia. Mediastinum: Mediastinal contours appear normal. Heart size is normal. Bones and chest wall: No suspicious bony lesions. Overlying soft tissues appear unremarkable. IMPRESSION: 1. Small subpleural effusion. 2. Increased left basilar opacification compatible atelectasis versus developing pneumonia. Dictated by: Ligia Ham MD, PhD on 01/03/2020 at 9:11 Approved by: Ligia Ham MD, PhD on 01/03/2020 at 9:13
[2020-01-03 09:02] VITALS: RESP 16; O2SAT 95
--- NOTE | 2020-01-03 09:20 | PC.NURSE ---
pt states normally has mucus but has more than normal.
[2020-01-03] MEDS: DEXAMETHASONE 10 MG/ML VIAL PO (10:16)
[2020-01-03 10:32] VITALS: BP 139/95; PULSE 87; RESP 20; O2SAT 98
[2020-01-05 08:10] LABS: COVID19 Sendout Not Detected (Not Detected)
== END 2020-01-03 11:02 | disposition home or self-care (01) ==
PROVIDERS: Emergency Provider Emergency Medicine; PCP Family Medicine
DX: J02.9 Acute pharyngitis, unspecified (principal); J90 Pleural effusion, not elsewhere classified; R06.02 Shortness of breath; R68.89 Other general symptoms and signs
CPT/HCPCS: 71045; 87070; 87635; 87880; 99284; J1100

== ENCOUNTER 2020-01-17 22:28 | Inpatient (IN) | payer MEDICAID, OTHER, SELFPAY ==
[2019-11-14 10:24] VITALS: BMI 21.5
[2020-01-17 22:32] VITALS: BP 135/102; PULSE 103; RESP 20; TEMP 36.8; O2SAT 96
--- NOTE | 2020-01-17 22:33 | DI.RAD.S_ITS ---
PROCEDURE: XR CHEST 1V INDICATIONS: SOB TECHNIQUE: One view of the chest was acquired. COMPARISON: [facility], CR, XR CHEST 1V, 01/03/2020, 8:53. FINDINGS: Surgical changes and devices: None. Lungs and pleura: Left basilar opacification has decreased in size without complete resolution likely representing resolving pneumonia. Trace left-sided pleural fluid collection decreased in size Mediastinum: Mediastinal contours appear normal. Heart size is normal. Bones and chest wall: No suspicious bony lesions. Overlying soft tissues appear unremarkable. IMPRESSION: Trace left-sided pleural effusion and left basilar opacification decreased compared to 01/03/20 most compatible with resolving pneumonia. Dictated by: Ligia Ham MD, PhD on 01/18/2020 at 8:49 Approved by: Ligia Ham MD, PhD on 01/18/2020 at 8:50
--- NOTE | 2020-01-17 22:40 | ED.URI ---
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 Patient is wheelchair bound and lives locally at home but with 24 hours of non professional care. He has had increasing difficulty breathing and managing oral secretions with subjective fever over the past few days. He was seen on 01/02 with sore throat and had a negative rapid strep and culture. Since then he has been gradually worsening. He has been exposed to no new persons, has had no significant travel. He admits to throat pain but denies any chest pain or shortness of breath. Related Data Home Medications Medication Instructions Recorded Confirmed latanoprost 1 drp EYE-BOTH BEDTIME 09/18/18 11/14/19 Previous Rx's Medication Instructions Recorded Battery Powered Lift #1 ea 03/02/18 Power Chair #1 ea 10/16/18 Semi-electric hospital bed #1 ea 11/17/18 Disabled Parking #1 each 01/15/19 Shower Chair #1 ea 07/04/19 sertraline 100 mg tablet 100 mg PO DAILY #30 tab 10/09/19 sulfamethoxazole 800 1 tab PO BID #26 tab 11/14/19 mg-trimethoprim 160 mg tablet levofloxacin [Levaquin] 750 mg PO DAILY #7 tab 01/03/20 Allergies Allergy/AdvReac Type Severity Reaction Status Date / Time Penicillins [PENICILLINS] Allergy Severe RASH Verified 11/14/19 15:48 Review of Systems Constitutional Constitutional: Denies chills, Denies fatigue, Denies fever(s), Denies frequent falls, Denies lethargy and Denies weakness Eyes Eyes: Denies change in vision, Denies eye discharge, Denies irritation and Denies loss of vision ENT Ears, Nose, Mouth, and Throat: Denies change in voice, Denies dizziness, Denies neck pain, Reports sore throat and Denies throat swelling Comments: trouble with secretions Cardiovascular Cardiovascular: Denies chest pain, Denies irregular heart rhythm, Denies lightheadedness, Denies palpitations, Reports dyspnea, Denies dyspnea on exertion and Denies orthopnea Respiratory Respiratory: Denies cough, Reports dyspnea, Denies dyspnea on exertion and Denies wheezing Gastrointestinal Gastrointestinal: Denies abdominal pain, Denies change in bowel habits, Denies diarrhea, Denies nausea and Denies vomiting Genitourinary Genitourinary: Denies hematuria, Denies flank pain, Denies urinary incontinence and Denies urinary urgency Musculoskeletal Musculoskeletal: Denies back pain, Denies muscle weakness, Denies neck pain, Denies numbness and Denies tingling Integumentary/Breasts Skin/Breast: Denies pruritus, Denies erythema, Denies rash and Denies wounds Neurologic Neurologic: Denies behavioral changes, Denies confusion, Denies dizziness, Denies frequent falls, Denies loss of vision, Denies numbness, Denies tingling and Denies weakness Psychiatric Psychiatric: Denies anxiety, Denies behavioral changes, Denies confusion, Denies depression, Denies homicidal ideation and Denies suicidal ideation Endocrine Endocrine: Denies fatigue, Denies flushing and Denies palpitations Hematologic/Lymphatic Hematologic/Lymphatic: Denies easy bruising Allergic/Immunologic Allergic/Immunologic: Denies urticaria, Denies throat swelling and Denies wheezing Patient History Social History marital status: unmarried,single household members: family, caregiver and none Smoking Status: Former smoker alcohol intake: never substance use type: marijuana Smoking Status: Former smoker alcohol intake frequency: 0-2 drinks per day Substance Use Type: marijuana Exam Narrative Exam Narrative: GENERAL: [39] year old patient appears in distress. Chronically ill, temporal wasting. Increased secretions HEAD: Atraumatic. Normocephalic. EYES: Pupils equal round and reactive. Extraocular motions intact. No scleral icterus. No injection or drainage. ENT: Nose without bleeding, purulent drainage. Throat without erythema, tonsillar hypertrophy or exudate. Airway patent. NECK: Trachea midline. Non tender CARDIOVASCULAR: Mild tachycardia, regular rhythm without murmurs, gallops, or rubs. RESPIRATORY: Decreased breath sounds Left base GASTROINTESTINAL: Abdomen soft, non-tender, nondistended. EXTREMITIES: No edema or joint tenderness. BACK: Nontender without deformity or crepitance. No flank tenderness. NEURO: AOx3. SKIN: No rash or erythema of visible areas Initial Vital Signs Initial Vital Signs: Vital Signs Temperature 98.3 F 01/17/20 22:32 Pulse Rate 103 H 01/17/20 22:32 Respiratory Rate 20 01/17/20 22:32 Blood Pressure 135/102 H 01/17/20 22:32 Pulse Oximetry 96 01/17/20 22:32 Course Course Course Narrative: decision to perform awake intubation given stridorous lung sounds, trouble with secretions and CT findings. Patient given glycopyrrolate, Reglan and Zofran initially. This was followed by aerosolized lidocaine 4% and a swish and swallow of viscous lidocaine. Anesthesia had been notified of likely difficult airway, difficult airway tray at bedside as well as glide scope. Ketamine 80 mg was given and airway visualized with the glide scope, very narrow airway with swollen arytenoids. Initially a 7.5 endotracheal tube was used but unable to pass. With use of a bougie a 6.0 endotracheal tube was visualized to pass through the cords, but seemed to have difficulty going much further. Patient ventilating well with good lung sounds. Propofol and Rocuronium given. CXR suggested ETT was very much proximal to the jessy and looked hung up at the narrowest part of airway. Patient stable, but very closely watched. Pushes of Fentanyl given and propofol ordered. Tidal volumes began to decrease and anesthesia asked to come back so they could be at bedside when a tube repositioning was attempted. Glydescope used and tube had backed up and balloon was near epiglottis. Anesthesia brouight their glydescope, initial ETT removed and 6.5 placed which easily passed through the cords. CXR confirms placement. Patient vitals stable. Mother notified. Orders Ordered: ED Orders 01/17/20 22:33 XR chest 1V Stat 01/17/20 22:55 C-Reactive Protein Quant Stat Complete Blood Count AUTO DIFF Stat Comprehensive Metabolic Panel Stat Ferritin Stat Lactate (Lactic Acid) Stat Lipase Stat NT-proBNP (BNP-Adult 18+) Stat Procalcitonin Stat Troponin & CK Cardiac Panel Stat 01/17/20 23:10 Blood Culture Stat 01/17/20 23:31 CT chest abd pel w con Stat CT soft tissue neck w con Stat 01/18/20 XR chest 1V Stat 01/18/20 03:11 XR chest 1V Stat 01/18/20 04:07 ABG [Arterial Blood Gas] Stat Sodium Chloride (Normal Saline 0.9%) 1,000 mls @ 125 mls/hr IV CONT JOSE MANUEL Last Infusion: 01/18/20 04:39 Dose: 0 mls/hr Documented by: Admin: 01/17/20 23:05 Dose: 125 mls/hr Documented by: RAFFAELE Propofol (Propofol) 1,000 mg in 100 mls @ 2.349 mls/hr IV TITRATE JOSE MANUEL; Protocol Last Admin: 01/18/20 04:26 Dose: 5 mcg/kg/min, 2.349 mls/hr Documented by: RAFFAELE Sodium Chloride (Normal Saline 0.9%) 1,000 mls @ 125 mls/hr IV CONT JOSE MANUEL Last Admin: 01/18/20 04:43 Dose: 125 mls/hr Documented by: RAFFAELE Discontinued Medications Fentanyl (Sublimaze) 100 mcg IV NOW ONE Stop: 01/18/20 03:58 Last Admin: 01/18/20 03:58 Dose: 100 mcg Documented by: DAWSON Dexamethasone 20 mg/ Sodium (Chloride) 52 mls @ 208 mls/hr IV NOW ONE Stop: 01/18/20 01:12 Last Infusion: 01/18/20 02:17 Dose: 0 mls/hr Documented by: Admin: 01/18/20 01:38 Dose: 208 mls/hr Documented by: DAWSON Clindamycin Phosphate (Cleocin) 900 mg in 50 mls @ 50 mls/hr IV NOW ONE Stop: 01/18/20 04:38 Last Admin: 01/18/20 04:09 Dose: 50 mls/hr Documented by: DAWSON Ketamine HCl (Ketalar) 80 mg 1 mg/kg (80 mg) IV NOW ONE Stop: 01/18/20 01:35 Last Admin: 01/18/20 02:50 Dose: 80 mg Documented by: DAWSON Ketamine HCl (Ketalar) 80 mg 1 mg/kg (80 mg) IV NOW ONE Stop: 01/18/20 03:33 Last Admin: 01/18/20 03:05 Dose: 80 mg Documented by: DAWSON Ketamine HCl (Ketalar) 80 mg 1 mg/kg (80 mg) IV NOW ONE Stop: 01/18/20 03:12 Last Admin: 01/18/20 04:01 Dose: Not Given Documented by: DAWSON Lidocaine HCl (Viscous Lidocaine 2%) 15 ml PO NOW ONE Stop: 01/18/20 01:35 Last Admin: 01/18/20 02:52 Dose: 15 ml Documented by: DAWSON Metoclopramide HCl (Reglan) 10 mg IV NOW ONE Stop: 01/18/20 01:35 Last Admin: 01/18/20 02:08 Dose: 10 mg Documented by: DAWSON Ondansetron HCl (Zofran) 4 mg IV NOW ONE Stop: 01/18/20 01:35 Last Admin: 01/18/20 02:08 Dose: 4 mg Documented by: DAWSON Propofol (Diprivan) 100 mg IV NOW ONE Stop: 01/18/20 02:18 Last Admin: 01/18/20 03:08 Dose: 100 mg Documented by: DAWSON Propofol (Diprivan) 50 mg IV NOW ONE Stop: 01/18/20 04:34 Last Admin: 01/18/20 04:15 Dose: 50 mg Documented by: RAFFAELE Rocuronium [place] (Zemuron) 80 mg IV NOW ONE Stop: 01/18/20 02:18 Last Admin: 01/18/20 03:10 Dose: 80 mg Documented by: DAWSON Vital Signs Vital signs: Vital Signs - 8 hr 01/17/20 22:32 01/17/20 23:05 01/18/20 03:38 Temperature 98.3 F Pulse Rate 103 H 99 H 126 H Respiratory Rate 20 21 16 Blood Pressure 135/102 H Blood Pressure [Left Arm] 153/97 H 117/89 Pulse Oximetry 96 96 98 MDM - URI/Sore Throat Lab Data Result diagrams: 01/17/20 22:55 01/17/20 22:55 Labs: Lab Results 01/17/20 01/17/20 01/17/20 Range/Units 22:55 22:55 22:55 WBC 14.2 H (4.5-11.0) X10^3/uL RBC 5.02 (4.5-5.9) X10^6/uL Hgb 13.8 (13.5-17.5) g/dL Hct 40.2 L (41-53) % MCV 80.1 (80-100) fL MCH 27.5 (26-34) PG MCHC 34.3 (30-36) % RDW 16.1 H (11.6-14.8) % Plt Count 279 (150-400) X10^3/uL Neut % (Auto) 77.9 H (50-75) % Lymph % (Auto) 16.7 L (25-40) % [place] % (Auto) 4.1 (3-14) % Eos % (Auto) 0.8 L (2-4) % Baso % (Auto) 0.5 (0-2) % Neut # (Auto) 48989 H (8275-7798) /uL Lymph # (Auto) 2400 (3106-6241) /uL [place] # (Auto) 600 (0-900) /uL Eos # (Auto) 100 (0-450) /uL Baso # (Auto) 100 (0-100) /uL ABG pH (7.35-7.45) ABG pCO2 (35-45) mmHg ABG pO2 (80-100) mmHg ABG HCO3 (22-26) mmol/L ABG Total CO2 (21-31) mmol/L ABG O2 Saturation (95-100) % ABG Base Excess (-2-2) mmol/L FiO2 Sodium 135 L (137-145) mmol/L Potassium 4.0 (3.4-5.1) mmol/L Chloride 102 (98-107) mmol/L Carbon Dioxide 24 (22-32) mmol/L BUN 8 L (9-20) mg/dL Creatinine 0.50 L (0.66-1.25) mg/dL Estimated GFR > 60.0 (>60) mL/min BUN/Creatinine Ratio 16.0 (6-22) Glucose 93 (70-100) mg/dL Lactate (0.7-2.1) mmol/L Calcium 9.3 (8.4-10.2) mg/dL Ferritin 305 (18-464) ng/mL Total Bilirubin 0.6 (0.2-1.3) mg/dL AST 20 (17-59) IU/L ALT 9 (<50) IU/L Alkaline Phosphatase 80 (38-126) U/L Total Creatine Kinase 34 L (55-170) U/L CK-MB (CK-2) TNP CK-MB (CK-2) Rel Index TNP Troponin I < 0.012 (0.01-0.034) ng/mL C-Reactive Protein 4.1 H (<1.0) mg/dL NT-Pro-B Natriuret Pep 573 H (<125) pg/mL Total Protein 7.5 (6.3-8.2) g/dL Albumin 4.3 (3.5-5.0) g/dL Globulin 3.2 (1.7-4.1) g/dL Albumin/Globulin Ratio 1.3 (1.0-2.8) Lipase 700 H (23-300) U/L Procalcitonin < 0.05 (<0.5) ng/mL COVID-19 PCR 01/17/20 01/17/20 01/17/20 Range/Units 22:55 22:55 22:55 WBC (4.5-11.0) X10^3/uL RBC (4.5-5.9) X10^6/uL Hgb (13.5-17.5) g/dL Hct (41-53) % MCV (80-100) fL MCH (26-34) PG MCHC (30-36) % RDW (11.6-14.8) % Plt Count (150-400) X10^3/uL Neut % (Auto) (50-75) % Lymph % (Auto) (25-40) % [place] % (Auto) (3-14) % Eos % (Auto) (2-4) % Baso % (Auto) (0-2) % Neut # (Auto) (5646-1684) /uL Lymph # (Auto) (4085-5601) /uL [place] # (Auto) (0-900) /uL Eos # (Auto) (0-450) /uL Baso # (Auto) (0-100) /uL ABG pH (7.35-7.45) ABG pCO2 (35-45) mmHg ABG pO2 (80-100) mmHg ABG HCO3 (22-26) mmol/L ABG Total CO2 (21-31) mmol/L ABG O2 Saturation (95-100) % ABG Base Excess (-2-2) mmol/L FiO2 Sodium (137-145) mmol/L Potassium (3.4-5.1) mmol/L Chloride (98-107) mmol/L Carbon Dioxide (22-32) mmol/L BUN (9-20) mg/dL Creatinine (0.66-1.25) mg/dL Estimated GFR (>60) mL/min BUN/Creatinine Ratio (6-22) Glucose (70-100) mg/dL Lactate 0.8 (0.7-2.1) mmol/L Calcium (8.4-10.2) mg/dL Ferritin (18-464) ng/mL Total Bilirubin (0.2-1.3) mg/dL AST (17-59) IU/L ALT (<50) IU/L Alkaline Phosphatase (38-126) U/L Total Creatine Kinase (55-170) U/L CK-MB (CK-2) CK-MB (CK-2) Rel Index Troponin I (0.01-0.034) ng/mL C-Reactive Protein (<1.0) mg/dL NT-Pro-B Natriuret Pep (<125) pg/mL Total Protein (6.3-8.2) g/dL Albumin (3.5-5.0) g/dL Globulin (1.7-4.1) g/dL Albumin/Globulin Ratio (1.0-2.8) Lipase (23-300) U/L Procalcitonin (<0.5) ng/mL COVID-19 PCR Cancelled Negative 01/18/20 Range/Units 04:07 WBC (4.5-11.0) X10^3/uL RBC (4.5-5.9) X10^6/uL Hgb (13.5-17.5) g/dL Hct (41-53) % MCV (80-100) fL MCH (26-34) PG MCHC (30-36) % RDW (11.6-14.8) % Plt Count (150-400) X10^3/uL Neut % (Auto) (50-75) % Lymph % (Auto) (25-40) % [place] % (Auto) (3-14) % Eos % (Auto) (2-4) % Baso % (Auto) (0-2) % Neut # (Auto) (1153-0097) /uL Lymph # (Auto) (0151-5883) /uL [place] # (Auto) (0-900) /uL Eos # (Auto) (0-450) /uL Baso # (Auto) (0-100) /uL ABG pH 7.35 (7.35-7.45) ABG pCO2 40.4 (35-45) mmHg ABG pO2 97 (80-100) mmHg ABG HCO3 23 (22-26) mmol/L ABG Total CO2 24 (21-31) mmol/L ABG O2 Saturation 97 (95-100) % ABG Base Excess -3.0 L (-2-2) mmol/L FiO2 30 Sodium (137-145) mmol/L Potassium (3.4-5.1) mmol/L Chloride (98-107) mmol/L Carbon Dioxide (22-32) mmol/L BUN (9-20) mg/dL Creatinine (0.66-1.25) mg/dL Estimated GFR (>60) mL/min BUN/Creatinine Ratio (6-22) Glucose (70-100) mg/dL Lactate (0.7-2.1) mmol/L Calcium (8.4-10.2) mg/dL Ferritin (18-464) ng/mL Total Bilirubin (0.2-1.3) mg/dL AST (17-59) IU/L ALT (<50) IU/L Alkaline Phosphatase (38-126) U/L Total Creatine Kinase (55-170) U/L CK-MB (CK-2) CK-MB (CK-2) Rel Index Troponin I (0.01-0.034) ng/mL C-Reactive Protein (<1.0) mg/dL NT-Pro-B Natriuret Pep (<125) pg/mL Total Protein (6.3-8.2) g/dL Albumin (3.5-5.0) g/dL Globulin (1.7-4.1) g/dL Albumin/Globulin Ratio (1.0-2.8) Lipase (23-300) U/L Procalcitonin (<0.5) ng/mL COVID-19 PCR Discharge Plan Departure Patient Disposition: Admitted As Inpatient Clinical Impression: Pleural effusion, Infection of supraglottis (throat) Respiratory failure Qualifiers: Chronicity: acute Respiratory failure complication: unspecified whether with hypoxia or hypercapnia Qualified Code(s): J96.00 - Acute respiratory failure, unspecified whether with hypoxia or hypercapnia
[2020-01-17 23:05] VITALS: BP 153/97; PULSE 99; RESP 21; O2SAT 96
[2020-01-17] MEDS: SODIUM CHLORIDE 0.9% 1,000 ML 125 ML IV (23:05)
[2020-01-17 23:23] LABS: Lactate (Lactic Acid) 0.8 mmol/L (0.7-2.1)
[2020-01-17 23:26] LABS: Alanine Aminotransferase 9 IU/L (<50); Albumin 4.3 g/dL (3.5-5.0); Albumin Globulin Ratio 1.3 (1.0-2.8); Alkaline Phosphatase 80 U/L (38-126); Aspartate Aminotransferase 20 IU/L (17-59); Bilirubin Total 0.6 mg/dL (0.2-1.3); Blood Urea Nitrogen 8 mg/dL (9-20); Calcium 9.3 mg/dL (8.4-10.2); Carbon Dioxide 24 mmol/L (22-32); Chloride 102 mmol/L (98-107); Creatine Kinase 34 U/L (55-170); Estimated Glomerular Filt Rate > 60.0 mL/min (>60); Globulin 3.2 g/dL (1.7-4.1); Glucose 93 mg/dL (70-100); HEMOLYSIS < 15 (0-50); Lipase 700 U/L (23-300); Sodium 135 mmol/L (137-145); Total Protein 7.5 g/dL (6.3-8.2)
--- NOTE | 2020-01-17 23:31 | DI.CT.S_ITS ---
PROCEDURE: CT CHEST ABD PEL W CON INDICATIONS: Cough, fever, shortness of breath, abdominal pain, fever, nausea TECHNIQUE: After the administration of oral and intravenous contrast, 5 mm thick sections acquired from the lung apices to the symphysis. 5 mm coronal and sagittal reformats were performed, with additional 7 mm coronal MIP reformats through the lungs. For radiation dose reduction, the following was used: automated exposure control, adjustment of mA and/or kV according to patient size. COMPARISON: None. FINDINGS: Image quality: Minor motion throughout the lung matthew CHEST: Lungs and pleura: There is a moderate sized pleural effusion layers dependently in the left lung with associated left lower lobe consolidation. Small amount of fluid in left major fissure. There is mucous dependently in the trachea and left main airways with partial peripheral left lower lobe airway occlusions. The rest of the left lung and the right lung is otherwise clear. Mediastinum: Heart size is normal. Trace pericardial effusion. Small reactive subcarinal lymph node. No bulky mediastinal or hilar adenopathy by size criteria. Thoracic aorta and central pulmonary arteries are normal in size. Esophagus is normal in caliber. No hiatal hernia. Chest wall: No axillary or supraclavicular adenopathy by size criteria. Thyroid gland is slightly heterogeneous on of the left lower pole cystic structure.. ABDOMEN: Solid organs: Liver is normal in size and enhancement. Gallbladder contains a few gallstones towards the fundus. Biliary system is non dilated. Pancreas enhances normally. Spleen is normal in size and enhancement. No adrenal nodules. Kidneys demonstrate normal size and enhancement, without hydronephrosis. Peritoneum and bowel: Bowel loops demonstrate normal wall thickness and caliber. No free fluid or air. Nodes and vessels: No retroperitoneal or mesenteric adenopathy by size criteria. Aorta and inferior vena cava are normal in size. Miscellaneous: No ventral hernias. PELVIS: Genitourinary: Bladder wall thickness is normal. Miscellaneous: No inguinal hernias or adenopathy. Bones: No suspicious bony lesions. No vertebral body compression fractures. IMPRESSION: 1. Left lower lobe consolidation and moderate size pleural effusion. This is likely infectious or inflammatory. 2. Left lower lobe bronchitis and probable mucous plugging, likely contributing to left lower lobe atelectasis. 3. Cholelithiasis. 4. Concordant with preliminary report. Dictated by: Vicky King M.D. on 01/18/2020 at 8:26 Approved by: Vicky King M.D. on 01/18/2020 at 8:38
--- NOTE | 2020-01-17 23:31 | DI.CT.S_ITS ---
PROCEDURE: CT SOFT TISSUE NECK W CON INDICATIONS: throat pain, trouble with secretions, can't swallow TECHNIQUE: After the administration of intravenous contrast, 3.0 mm axial sections acquired from the sella to the aortic arch. Additional oblique axial 3.0 mm sections acquired through the pharynx. 3 mm thick coronal and sagittal reformats were generated. For radiation dose reduction, the following was used: automated exposure control. COMPARISON: [facility], CT, CT HEAD/BRAIN WO CON, 10/17/2019, 15:12. FINDINGS: Image quality: Excellent. Lymph nodes: Prominent bilateral level level I and level II lymph nodes are noted which do not meet pathologic size criteria. Vessels: Visualized vasculature appears patent. Neck spaces: Laryngeal mucosal thickening and edema is noted with complete compromise of the airway at the level of the false vocal cords. Epiglottis and aryepiglottic fold thickening and edema noted. The oropharynx, nasopharynx, demonstrate no mucosal lesions. The vocal cords, false vocal cords, pyriform sinuses, epiglottis, vallecula, and tongue base all appear normal. Extramucosal spaces appear unremarkable. Glands: The parotid and submandibular glands appear normal. Thyroid gland contains a 1.1 cm heterogeneously enhancing nodule in the left lobe and a 6 mm hypoattenuating nodule in the right lobe. Miscellaneous: A chronic pontine infarct is partially visualized which is not significantly changed compared to prior CT scan of the brain. Visualized orbits appear normal. Lung apices appear clear. Partially visualized left-sided pleural effusion. Superficial soft tissues appear normal. Bones: No suspicious bony lesions. Visualized sinuses and mastoids appear unremarkable. IMPRESSION: 1. Epiglottic, aryepiglottic fold, and laryngeal mucosal thickening and edema causing complete compromise of the airway at the level of the false vocal cords concerning for a supraglottic laryngitis and angioedema or less likely infiltrating neoplasm. 2. No lymphadenopathy based on size criteria, however prominent bilateral level I and level II lymph nodes are noted which are likely reactive. 3. No abscess. Dictated by: Ligia Ham MD, PhD on 01/18/2020 at 7:59 Approved by: Ligia Ham MD, PhD on 01/18/2020 at 8:06
[2020-01-17 23:35] LABS: Add Manual Diff / Slide Review NO; Basophils Absolute Auto 100 /uL (0-100); Basophils Percent Auto 0.5 % (0-2); Eosinophils Absolute Auto 100 /uL (0-450); Eosinophils Percent Auto 0.8 % (2-4); Hematocrit 40.2 % (41-53); Hemoglobin 13.8 g/dL (13.5-17.5); Lymphocytes Absolute Auto 2400 /uL (1100-4500); Lymphocytes Percent Auto 16.7 % (25-40); Mean Corpuscular HGB Conc 34.3 % (30-36); Mean Corpuscular Hemoglobin 27.5 PG (26-34); Mean Corpuscular Volume 80.1 fL (80-100); Monocytes Absolute Auto 600 /uL (0-900); Monocytes Percent Auto 4.1 % (3-14); Neutrophils Absolute Auto 11100 /uL (1500-7000); Neutrophils Percent Auto 77.9 % (50-75); Platelet Count 279 X10^3/uL (150-400); Red Blood Cell Count 5.02 X10^6/uL (4.5-5.9); Red Cell Distribution Width 16.1 % (11.6-14.8); White Blood Cell Count 14.2 X10^3/uL (4.5-11.0)
[2020-01-17 23:38] LABS: NT-proBNP (BNP-Adult 18+) 573 pg/mL (<125); Troponin I < 0.012 ng/mL (0.01-0.034)
[2020-01-17 23:41] LABS: Procalcitonin < 0.05 ng/mL (<0.5)
[2020-01-18] VITALS (35 sets, daily range): BP systolic 55–178; BP diastolic 38–133; PULSE 76–136; RESP 15–117; TEMP 37–37.6; O2SAT 92–128; BMI 23.4
[2020-01-18] LABS: Ferritin 305 ng/mL (18-464)
--- NOTE | 2020-01-18 | DI.RAD.S_ITS ---
PROCEDURE: XR CHEST 1V INDICATIONS: INTUBATED, TUBE PLACEMENT TECHNIQUE: One view of the chest was acquired. COMPARISON: [facility], CR, XR CHEST 1V, 01/18/2020, 3:04. FINDINGS: Surgical changes and devices: ET tube, appropriately advanced since the prior study, approximately 4.6 cm above the jessy. Lungs and pleura: Continued atelectasis in the retrocardiac region of the left lower lobe. Lungs otherwise clear. No pleural effusions or pneumothorax. Mediastinum: Mediastinal contours appear normal. Heart size is normal. Bones and chest wall: No suspicious bony lesions. Overlying soft tissues appear unremarkable. IMPRESSION: ET tube now in satisfactory position. Focal left basilar atelectasis. Dictated by: Simón Boyer M.D. on 01/18/2020 at 8:53 Approved by: Simón Boyer M.D. on 01/18/2020 at 8:53
[2020-01-18 00:01] LABS: C-Reactive Protein Quant 4.1 mg/dL (<1.0)
[2020-01-18] MEDS: dexAMETHasone 20 MG in SODIUM CHLORIDE 0.9% 50 ML 208 ML IV (01:38)
[2020-01-18] MEDS: GLYCOPYRROLATE 0.2 MG/ML 0.4 MG IV (01:40)
[2020-01-18] MEDS: METOCLOPRAMIDE 10 MG/2 ML INJ IV (02:08)
[2020-01-18] MEDS: ONDANSETRON 4 MG/2 ML INJ IV (02:08)
[2020-01-18 02:22] LABS: COVID19 -Nasal RAPID Negative (Negative)
[2020-01-18] MEDS: KETAMINE 500 MG/5 ML INJ 80 MG IV ×2 (02:50→03:05)
[2020-01-18] MEDS: LIDOCAINE 4% SOLN 50 ML (02:51)
[2020-01-18] MEDS: LIDOCAINE VISCOUS 2% 15 ML SOLUTION PO (02:52)
[2020-01-18] MEDS: propofoL 200 MG/20 ML VIAL 100 MG IV (03:08)
[2020-01-18] MEDS: ROCURONIUM 50 MG/5 ML INJ 80 MG IV (03:10)
--- NOTE | 2020-01-18 03:11 | DI.RAD.S_ITS ---
PROCEDURE: XR CHEST 1V INDICATIONS: post intubation TECHNIQUE: One view of the chest was acquired. COMPARISON: None FINDINGS: Surgical changes and devices: The tip of the ET tube projects to T1, and should be advanced. Lungs and pleura: Focal atelectasis in the retrocardiac region of the left lower lobe. Lungs otherwise clear. No pleural effusions or pneumothorax. Mediastinum: Mediastinal contours appear normal. Heart size is normal. Bones and chest wall: No suspicious bony lesions. Overlying soft tissues appear unremarkable. IMPRESSION: 1. Suggest advancement of ET tube (ET tube subsequently advanced on a subsequent study dated 0418 hrs.) 2. Focal atelectasis, left lung base. Dictated by: Simón Boyer M.D. on 01/18/2020 at 8:51 Approved by: Simón Boyer M.D. on 01/18/2020 at 8:53
--- NOTE | 2020-01-18 03:30 | PC.NURSE ---
Tried placing gastric tube both through nasal and oral. causing trauma and unable to advance tube. Provider aware at this time.
--- NOTE | 2020-01-18 03:35 | PC.NURSE ---
Pt Bp decreased to 55/38, Provider gave 3 small doses of epinephrine to increase Blood pressure. Bp incrased to 116/80.
[2020-01-18] MEDS: fentaNYL 100 MCG/2 ML INJ IV (03:58)
[2020-01-18] MEDS: CLINDAMYCIN 900 MG/50 ML PIGGYBACK 50 MG IV ×3 (04:09→19:55)
[2020-01-18] MEDS: propofoL 200 MG/20 ML VIAL 50 MG IV (04:15)
--- NOTE | 2020-01-18 04:22 | P.PCN_ITS ---
Procedures Date/Time Date of procedure: 01/18/20 Time of procedure: 04:30 Intubation Time out performed: No Sedative: none Laryngoscope: fiber optic video scope ET tube size: 6 ET tube uncuffed: Yes Tube secured depth (cm): 23 Tube secured location: teeth Tube placement confirmation: visualized tube passing through cords and equal breath sounds bilaterally Patient tolerated procedure: well Intubation complications: none Additional comments: ED Physician had previously intubated this patient. However the CXR indicated that the ETT might not be deep enough and they were meeting resistance while trying to advance the tube. Then it became difficult to ventilate the patient. I came in an pulled the ETT. Re visualized with a [place] scope. Good view with the LoPro 4 blade. I passed a 6.0 ETT easily through cords off a stylete Good chest rise. B/L breath sounds. CXR ordered to confirm ETT tube placement which appears appropriate. Care transferred back to ICU physician and staff.
[2020-01-18] MEDS: propofoL 1,000 MG/100 ML VIAL 2.349 MG IV (04:26)
[2020-01-18 04:28] LABS: HCO3 ABG 23 mmol/L (22-26); PCO2 ABG 40.4 mmHg (35-45); PO2 ABG 97 mmHg (80-100); pH ABG 7.35 (7.35-7.45)
[2020-01-18 04:29] LABS: Fractionated Inspired Oxygen 30; Oxygen Saturation ABG 97 % (95-100); TCO2 ABG 24 mmol/L (21-31)
[2020-01-18] MEDS: EPINEPHrine 1 MG/10 ML SYRINGE (04:29)
[2020-01-18] MEDS: SODIUM CHLORIDE 0.9% 1,000 ML 125 ML IV ×4 (04:43→22:42)
--- NOTE | 2020-01-18 05:36 | PC.NURSE ---
After starting second IV, pt's vent alarms sounding, stating high pressure and low tidal volume. Noticed blood in mouth and suction, little airway movement bilateral lungs.RT and Provider called to room. Could hear air leak around tube. Anesthesiologist into room and replaced ET Tube. Lung sounds auscultated in all lung matthew.
--- NOTE | 2020-01-18 06:14 | P.HP_ITS ---
History of Present Illness History of Present Illness Date Patient Seen: 01/18/20 Time Patient Seen: 06:14 Chief complaint: SOB Narrative: Mr. 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 The patient lives at home with 24 hour helpers and over the last few days has had progressive dyspnea with difficulty managing secretions for the last 2 days. The patient has associated symptoms subjective fevers and throat pain. The patient was seen previously on 01/03/2020 at [facility] for sore throat with increased phlegm. At that time he had no fevers or chills swelling was intact painful and the time his strep test was negative and he was given Decadron and antibiotics. Over the intervening 2 weeks the patient has slowly deteriorated. No subjective is available the time of admission as the patient has been intubated. Upon arrival to the ER the patient has a temperature of 98.3?, heart rate of 103, blood pressure 135/102, respirations of 20 saturating 96% with inability to manage airway or secretions. A CT of the neck shows diffuse enlarged larynx with airway compromise, supraglottic laryngitis versus angioedema versus mass. CT of the abdomen and pelvis finds small pericardial effusion, as pleural effusion and cholelithiasis. On atrial blood gases he has a pH of 7.35, pCO2 of 40, PO2 of 79, bicarb of 23 with a base excess of -3 on 30% FiO2. On laboratory analysis the patient has white count of 14.2, hemoglobin 13.8, hematocrit of 4 0.2 and platelets of 279. His electrolytes are within normal range has a BUN of 8 and creatinine of 0.5. His nonfasting glucose is 93 he has lipase elevated at 700. His procalcitonin is less than 0.05 and CRP has 4.1. Total CK is 34 troponin is less than 0.012. ProBNP is 573. In the ER the patient received 900 mg of clindamycin IV and Decadron 20 mg IV. He is intubated with a 6.5 ET tube by Anesthesia. The patient is admitted to the ICU by the medicine service on ventilatory support for severe airway compromise related to supraglottic swelling. Patient History Medical History Depression (Chronic) Dysarthria (Acute) Glioma (Chronic) Hemiparesis (Chronic ~1984) Pseudobulbar palsy (Acute) Surgical History Status post radiation therapy (Acute) Family & Social History Family History Mother No problems noted. Father No problems noted. Family history unavailable: Yes (Patient is intubated and nonverbal) Social History: household members family,none,caregiver Safety & Behavioral: Feels Safe in Current Yes Environment Tobacco & Substance use: Smoking Status Former smoker alcohol intake never alcohol intake frequency 0-2 drinks per day Substance Use Type marijuana Comment: Patient is cared for at home and has 24 hour non professional caregive rs. Advanced directives: The patient is FULL CODE, the patient has designated Marianela Muñiz who is also his DPOA to be his surrogate decision maker. Meds Home Medications and Allergies Home Medications Medication Instructions Recorded Confirmed Type Battery Powered Lift #1 ea 03/02/18 11/14/19 Rx latanoprost 1 drp EYE-BOTH BEDTIME 09/18/18 11/14/19 History Power Chair #1 ea 10/16/18 11/14/19 Rx Semi-electric hospital bed #1 ea 11/17/18 11/14/19 Rx Disabled Parking #1 each 01/15/19 11/14/19 Rx Shower Chair #1 ea 07/04/19 11/14/19 Rx sertraline 100 mg tablet 100 mg PO DAILY #30 tab 10/09/19 11/14/19 Rx sulfamethoxazole 800 1 tab PO BID #26 tab 11/14/19 11/14/19 Rx mg-trimethoprim 160 mg tablet levofloxacin [Levaquin] 750 mg PO DAILY #7 tab 01/03/20 Rx Allergies Allergy/AdvReac Type Severity Reaction Status Date / Time Penicillins [PENICILLINS] Allergy Severe RASH Verified 11/14/19 15:48 Review of Systems Review of Systems ROS: Yes unobtainable due to endotracheal tube Exam Vital Signs (past 8 hours): - 01/17/20 22:32 01/17/20 23:05 01/18/20 03:38 Temperature 98.3 F Pulse Rate 103 H 99 H 126 H Respiratory Rate 20 21 16 Blood Pressure 135/102 H Blood Pressure [Left Arm] 153/97 H 117/89 Pulse Oximetry 96 96 98 Oxygen Delivery Method Mechanical Ventilation Narrative Exam Narrative: GENERAL APPEARANCE: well developed, frail-appearing male with poor muscle mass who is sedated and mechanically ventilated. HEENT: Normocephalic, PERRLA, mild conjunctival injection, no rhinorrhea, dried blood on the lips, mucous membranes are moist and pink. Orally intubated with a 6.5 ET tube. NECK/THYROID: Diminished range of motion, no palpable masses,, no JVD, trachea midline. SKIN: [place], warm and dry, rash in the right axilla. HEART: Tachycardic with regular rhythm, S1-S2, no murmur, no rubs or gallops, brisk capillary refill, no edema LUNGS: Breath sounds equal bilateral with scattered coarseness, no crackles or wheezing, no cough present CHEST: Symmetrical movement, no accessory muscle use, mechanically ventilated ABDOMEN: Soft, tympanitic to percussion, no organomegaly, active bowel tones. EXTREMITIES: Spontaneous movement of the left arm, decreased range of motion and rigidity to bilateral lower extremities NEUROLOGIC: Patient is on propofol at 5 mics and will open eyes to verbal stimulus, will follow commands, denies complaints of pain. Objective Labs Result Diagrams: 01/18/20 06:40 01/17/20 22:55 Labs: Laboratory Results - last 24 hr 01/17/20 01/17/20 01/17/20 22:55 22:55 22:55 WBC 14.2 H RBC 5.02 Hgb 13.8 Hct 40.2 L MCV 80.1 MCH 27.5 MCHC 34.3 RDW 16.1 H Plt Count 279 Neut % (Auto) 77.9 H Lymph % (Auto) 16.7 L [place] % (Auto) 4.1 Eos % (Auto) 0.8 L Baso % (Auto) 0.5 Neut # (Auto) 94912 H Lymph # (Auto) 2400 [place] # (Auto) 600 Eos # (Auto) 100 Baso # (Auto) 100 ABG pH ABG pCO2 ABG pO2 ABG HCO3 ABG Total CO2 ABG O2 Saturation ABG Base Excess FiO2 Sodium 135 L Potassium 4.0 Chloride 102 Carbon Dioxide 24 BUN 8 L Creatinine 0.50 L Estimated GFR > 60.0 BUN/Creatinine Ratio 16.0 Glucose 93 Lactate Calcium 9.3 Ferritin 305 Total Bilirubin 0.6 AST 20 ALT 9 Alkaline Phosphatase 80 Total Creatine Kinase 34 L CK-MB (CK-2) TNP CK-MB (CK-2) Rel Index TNP Troponin I < 0.012 C-Reactive Protein 4.1 H NT-Pro-B Natriuret Pep 573 H Total Protein 7.5 Albumin 4.3 Globulin 3.2 Albumin/Globulin Ratio 1.3 Lipase 700 H Procalcitonin < 0.05 COVID-19 PCR 01/17/20 01/17/20 01/17/20 22:55 22:55 22:55 WBC RBC Hgb Hct MCV MCH MCHC RDW Plt Count Neut % (Auto) Lymph % (Auto) [place] % (Auto) Eos % (Auto) Baso % (Auto) Neut # (Auto) Lymph # (Auto) [place] # (Auto) Eos # (Auto) Baso # (Auto) ABG pH ABG pCO2 ABG pO2 ABG HCO3 ABG Total CO2 ABG O2 Saturation ABG Base Excess FiO2 Sodium Potassium Chloride Carbon Dioxide BUN Creatinine Estimated GFR BUN/Creatinine Ratio Glucose Lactate 0.8 Calcium Ferritin Total Bilirubin AST ALT Alkaline Phosphatase Total Creatine Kinase CK-MB (CK-2) CK-MB (CK-2) Rel Index Troponin I C-Reactive Protein NT-Pro-B Natriuret Pep Total Protein Albumin Globulin Albumin/Globulin Ratio Lipase Procalcitonin COVID-19 PCR Cancelled Negative 01/18/20 04:07 WBC RBC Hgb Hct MCV MCH MCHC RDW Plt Count Neut % (Auto) Lymph % (Auto) [place] % (Auto) Eos % (Auto) Baso % (Auto) Neut # (Auto) Lymph # (Auto) [place] # (Auto) Eos # (Auto) Baso # (Auto) ABG pH 7.35 ABG pCO2 40.4 ABG pO2 97 ABG HCO3 23 ABG Total CO2 24 ABG O2 Saturation 97 ABG Base Excess -3.0 L FiO2 30 Sodium Potassium Chloride Carbon Dioxide BUN Creatinine Estimated GFR BUN/Creatinine Ratio Glucose Lactate Calcium Ferritin Total Bilirubin AST ALT Alkaline Phosphatase Total Creatine Kinase CK-MB (CK-2) CK-MB (CK-2) Rel Index Troponin I C-Reactive Protein NT-Pro-B Natriuret Pep Total Protein Albumin Globulin Albumin/Globulin Ratio Lipase Procalcitonin COVID-19 PCR Assessment & Plan Assessment & Plan narrative: 1. Supraglotic laryngitis with acute airway compromise, present on admission, active -patient was seen 2 weeks previous with sore throat and diagnosed with laryngitis treated with antibiotics and steroids. Symptoms are progressive now unable to manage secretions with acute dsypnea. -CT of the neck: Difuse enarged larynx with airway compromise, no evidence of retroperitoneal abscess. -patient is intubated however difficulty was encountered advancing the tube. Assistance of anesthesia was requested to complete intubation which was successfully accomplished with 6.5 ETT. -patient received 20 mg of Decadron in the ER will continue Decadron 4 mg every 6 hours -ordered clindamycin 900 mg IV every 8 hours, 1st dose is given in the ER. -ordered ceftriaxone 2 g IV daily. 2. Impaired ventilation, Mechanical support, acute, active -setting per protocol, Vt-360, Rate-20, PEEP +5, FiO2 30%. Peak pressure 19, mean airway pressure 8. -Sedated on propofol titrate to RASS -2 -Fentanyl 50 mcg IV Q1H as needed for pain. -Will place oral gastric tube, place to LCWS. -Jones Catheter placed. -bilateral soft wrist restraints. 3. History of glioma brain tumor with residual hemiparesis, chronic, stable. -patient has minimal motion of his right upper extremity, rigidity or bilateral lower extremities, uses a power wheelchair for mobilization. -patient has 24 hour non professional caregiver support at home -requested PT to consult, evaluate and treat. Isolation: None, COVID-19 screening negative. VTE prophylaxis: Bilateral SCDs, heparin IV fluid: Normal saline 125 cc/hour Diet: NPO, dietary to consult. Code status: FULL CODE. The patient is intubated for critical airway compromise and admitted as an inpatient to the ICU post intubation on ventilatory support. Critical care time: 60 minutes COVID-19 COVID-19 status: Negative
[2020-01-18] MEDS: propofoL 1,000 MG/100 ML VIAL 4.698 MG IV (06:20)
[2020-01-18] MEDS: CEFTRIAXONE 2 GM/50 ML FROZ.PIGGY IV (06:50)
[2020-01-18 06:59] LABS: Add Manual Diff / Slide Review NO; Basophils Absolute Auto 0 /uL (0-100); Basophils Percent Auto 0.1 % (0-2); Eosinophils Absolute Auto 0 /uL (0-450); Hematocrit 39.4 % (41-53); Hemoglobin 13.2 g/dL (13.5-17.5); Lymphocytes Absolute Auto 1200 /uL (1100-4500); Lymphocytes Percent Auto 8.3 % (25-40); Mean Corpuscular HGB Conc 33.5 % (30-36); Mean Corpuscular Hemoglobin 26.9 PG (26-34); Mean Corpuscular Volume 80.4 fL (80-100); Monocytes Absolute Auto 100 /uL (0-900); Monocytes Percent Auto 0.8 % (3-14); Neutrophils Absolute Auto 12800 /uL (1500-7000); Neutrophils Percent Auto 90.8 % (50-75); Platelet Count 302 X10^3/uL (150-400); Red Cell Distribution Width 15.4 % (11.6-14.8); White Blood Cell Count 14.1 X10^3/uL (4.5-11.0)
[2020-01-18] MEDS: HEPARIN 5,000 UNIT/ML VIAL 5000 UNIT SUBCUT ×2 (08:10→21:00)
[2020-01-18] MEDS: DEXAMETHASONE 4 MG/ML VIAL IV ×3 (08:19→17:34)
--- NOTE | 2020-01-18 10:45 | DI.RAD.S_ITS ---
PROCEDURE: XR CHEST 1V INDICATIONS: confirm placement TECHNIQUE: One view of the chest was acquired. COMPARISON: [facility], , XR CHEST 1V, 01/18/2020, 4:18. FINDINGS: Evaluation of the chest is limited as the the majority of the upper lobes have not been included. A large proportion of the upper abdomen was included on this study. There is a nasogastric tube identified with the tip overlying the body of the stomach. Blunting of left costophrenic angle may represent pleural thickening versus a small left-sided pleural effusion. The heart is normal in size. Image osseous structures are grossly unremarkable. IMPRESSION: Nasogastric tube is positioned with the tip overlying the body of the stomach. Dictated by: Mp Lazar M.D. on 01/18/2020 at 10:19 Approved by: Mp Lazar M.D. on 01/18/2020 at 10:21
--- NOTE | 2020-01-18 11:05 | DIET.PN ---
Dietary Progress Note Assessment: 39y M admitted for swollen airway referred to nutrition for NPO on vent status. Pt has med hx of glioma @ 5y, chronic R sided weakness and has been hospitalized 4x since 09/2019 including for aspirating pneumonia. Pt regularly seen by Speech Therapy with diet reccs of nectar thick liquids and mechanical soft texture. 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 Pt remains weight stable since Sep 2019 at 74kg. Per physician report, pt seen in ER ~2w ago for sore throat and status has been deteriorating since then. Unknown at this time what pt's nutrition status was at home as pt intubated and sedated w/o Admission Assessment completed. Pt currently receiving 5mcg/kg/min propofol providing 57 kcals/d. Pt can begin TF at discretion of hospitalist when hemodynamically stable and lipase in range for feeding. Will start feeding rate low and advance slowly as tolerated per ICU status and questionable nutrition over past 2w. Consider drawing refeeding labs (K+, Mg, Phos) morning of 01/18 and replete as needed. HT: 177.8cm WT: 74.2kg BMI: 23.5 Labs: Lipase 700 H, CRP 4.1 H MNA: not calculated Krishan: 14 at risk for skin breakdown Nutrition Diagnosis: expected inadequate protein energy intake r/t inability for pt to consume PO nourishments aeb pt NPO on ventilator and sedated, pt has high need for protein to maintain skin integrity, pt admitted for swollen airway. Interventions: 1. Recc continuous TF when hemodynamically stable and lipase in range to feed Continuous feeding of Glucerna 1.5 starting at 20mL/hr titrating by 10mL q8h as tolerated until reaching goal of 50mL/h. 300mL free water flushes q4h Goal rate formula and flushes provide 2,711 mL free water (37mL/kg), 1859 kcals, and 99g PRO Elevate hob 30-45 degrees while feeding Diet Order: NPO EER: 1850kcal @ 25 kcal/kg, 90-100 g PRO (1.1-1.3 g/kg per low krishan) Monitoring/Evaluations: following daily
--- NOTE | 2020-01-18 11:29 | PT-IP ANOTE ---
Pt on vent at this time. At this time PT not appropriate. DC of order discussed with and noted that nursing can work on PROM with patient.
--- NOTE | 2020-01-18 13:13 | PC.NURSE ---
Addendum entered by Mckayla Gore R.N. 01/18/20 15:10: Noon famotadine up late, as Clindamyacin Iv completing. LIS OG has 150mls out, blood tinged, wall suction has been intermitently having issues, Pt to be moved to 226 as soon as it cleaned. Propofol continues @ 15mcg/kg/hr. NPO. MRSA + to Nares, Dr Martinez made aware, who updated that Chantelle was taking over care Addendum entered by Mckayla Gore R.N. 01/18/20 13:55: NS infusing @ 125 ml/hr, Propofol titrated throughout shift. Admission and med rec completed with mother via phone. Dr Lockhart into see Pt. Orders obtained. Original Note: Am shift Pt is intubated, Propofol gtt @ 10mcg/kg/hr. Pt is able to nod y/n during assessment, and make simple needs known, communication board at bedside. Lungs are coarse, RT frequently assessing secretions and airway management as ETT is small bore, 6.5 and 23 at the lips. Oral care being provided, and shivam bleeding noted. Pt Denies pain, repeatedly making attempts to pull ETT. NPO, 2 Attempts needed to pass OG tube to wall suction. Increased bleeding noted to OG tube, and during oral care initally afer placement. CXR confirmed. VSS, ST on Tele. Waffle cushion placed per request of Pt and heel protectors placed. Turning q2
--- NOTE | 2020-01-18 13:55 | CM.DANOTE ---
Addendum entered by Ricarda Pichardo LPN 01/19/20 11:10: Caseload triage dictates a hand off of any further work on this case to colleague staying for the full day. Original Note: Discharge Planning/Care Management DCP: assessment: case received, EMR reviewed. Discussed in Team Rounds. Pt is a 39 year old male who admitted early this morning to care of hospitalist team. PCP: Dr. Mercy Fernandez Payer: Medicaid and [facility] Admission status: INPT: confirmed by PERCY Quezada. Pt is currently on ventilator support. Covid-19 testing was done 01/02 and then 01/16: results for both are -. Pt was diagnosed with an inoperable glioma brain tumor at age of 5 years resulting in cognitive and physical impairments. He is cared for by [facility] caregivers and his mother. As of last admission to in September of this year he did live alone. P: will plan to reach out to pt's mother Marianela Lora: [phone] for introduction of self and role and d/c planning issues and options. CM Discharge Assessment Start: 01/18/20 13:50 Freq: Status: Active Protocol: Document 01/18/20 13:51 ITV (Rec: 01/18/20 13:55 ITV [id number]) Discharge Planning Assessment History Provided By Parents,Medical Record Independent with ADL's No Is patient alert and oriented? No Comment Was d/c'd home with Critical access hospital services on 10/19/19 Review Status In Process
[2020-01-18] MEDS: FAMOTIDINE 20 MG/50 ML PIGGYBACK 200 MG IV (15:07)
--- NOTE | 2020-01-18 17:06 | PM.PN.1 ---
Subjective Subjective Date Patient Seen: 01/18/20 Interval history: He is seen in the intensive care unit today to follow-up his supraglottic laryngitis with airway compromise. He remains on a ventilator receiving Decadron and IV antibiotics to treat the profound airway swelling that was noted in the emergency department. His intubation was complicated by a very narrow trachea, eventually anesthesia was requested to assist and a 6.5 ET tube was placed successfully. That will not be removed today. His BNP was 423 with a lipase of 700 yesterday, likely related to the upper airway/salivary gland involvement with this apparent viral illness. His white blood count is 14.1 today. Exam Vital Signs (past 8 hours): - 01/18/20 10:00 01/18/20 12:00 01/18/20 14:00 Temperature Pulse Rate 111 H 104 H 93 H Respiratory Rate Blood Pressure 115/84 132/94 H 115/84 Pulse Oximetry 95 96 96 01/18/20 16:34 Temperature 98.8 F Pulse Rate 88 Respiratory Rate 20 Blood Pressure 118/85 Pulse Oximetry 96 Fraction of Inspired Oxygen 30 Oxygen Delivery Method Mechanical Ventilation Narrative Exam Narrative: He is sedated on propofol with an endotracheal tube and ventilator breathing for him. There are writing pads next to his bed where he has been able to earlier today write messages to nurses and he has been making an effort to pull at the tube. At the moment he is sedated. Heart is regular rate and rhythm without murmur Lungs are clear to auscultation bilaterally Extremities have no ankle edema Objective Labs Result Diagrams: 01/18/20 06:40 01/17/20 22:55 Labs: Laboratory Results - last 24 hr 01/17/20 01/17/20 01/17/20 22:55 22:55 22:55 WBC 14.2 H RBC 5.02 Hgb 13.8 Hct 40.2 L MCV 80.1 MCH 27.5 MCHC 34.3 RDW 16.1 H Plt Count 279 Neut % (Auto) 77.9 H Lymph % (Auto) 16.7 L [place] % (Auto) 4.1 Eos % (Auto) 0.8 L Baso % (Auto) 0.5 Neut # (Auto) 61398 H Lymph # (Auto) 2400 [place] # (Auto) 600 Eos # (Auto) 100 Baso # (Auto) 100 ABG pH ABG pCO2 ABG pO2 ABG HCO3 ABG Total CO2 ABG O2 Saturation ABG Base Excess FiO2 Sodium 135 L Potassium 4.0 Chloride 102 Carbon Dioxide 24 BUN 8 L Creatinine 0.50 L Estimated GFR > 60.0 BUN/Creatinine Ratio 16.0 Glucose 93 Lactate Calcium 9.3 Ferritin 305 Total Bilirubin 0.6 AST 20 ALT 9 Alkaline Phosphatase 80 Total Creatine Kinase 34 L CK-MB (CK-2) TNP CK-MB (CK-2) Rel Index TNP Troponin I < 0.012 C-Reactive Protein 4.1 H NT-Pro-B Natriuret Pep 573 H Total Protein 7.5 Albumin 4.3 Globulin 3.2 Albumin/Globulin Ratio 1.3 Lipase 700 H Procalcitonin < 0.05 Nasal Screen MRSA (PCR) COVID-19 PCR 01/17/20 01/17/20 01/17/20 22:55 22:55 22:55 WBC RBC Hgb Hct MCV MCH MCHC RDW Plt Count Neut % (Auto) Lymph % (Auto) [place] % (Auto) Eos % (Auto) Baso % (Auto) Neut # (Auto) Lymph # (Auto) [place] # (Auto) Eos # (Auto) Baso # (Auto) ABG pH ABG pCO2 ABG pO2 ABG HCO3 ABG Total CO2 ABG O2 Saturation ABG Base Excess FiO2 Sodium Potassium Chloride Carbon Dioxide BUN Creatinine Estimated GFR BUN/Creatinine Ratio Glucose Lactate 0.8 Calcium Ferritin Total Bilirubin AST ALT Alkaline Phosphatase Total Creatine Kinase CK-MB (CK-2) CK-MB (CK-2) Rel Index Troponin I C-Reactive Protein NT-Pro-B Natriuret Pep Total Protein Albumin Globulin Albumin/Globulin Ratio Lipase Procalcitonin Nasal Screen MRSA (PCR) COVID-19 PCR Cancelled Negative 01/18/20 01/18/20 01/18/20 04:07 06:40 10:36 WBC 14.1 H RBC 4.90 Hgb 13.2 L Hct 39.4 L MCV 80.4 MCH 26.9 MCHC 33.5 RDW 15.4 H Plt Count 302 Neut % (Auto) 90.8 H Lymph % (Auto) 8.3 L [place] % (Auto) 0.8 L Eos % (Auto) 0.0 L Baso % (Auto) 0.1 Neut # (Auto) 53952 H Lymph # (Auto) 1200 [place] # (Auto) 100 Eos # (Auto) 0 Baso # (Auto) 0 ABG pH 7.35 ABG pCO2 40.4 ABG pO2 97 ABG HCO3 23 ABG Total CO2 24 ABG O2 Saturation 97 ABG Base Excess -3.0 L FiO2 30 Sodium Potassium Chloride Carbon Dioxide BUN Creatinine Estimated GFR BUN/Creatinine Ratio Glucose Lactate Calcium Ferritin Total Bilirubin AST ALT Alkaline Phosphatase Total Creatine Kinase CK-MB (CK-2) CK-MB (CK-2) Rel Index Troponin I C-Reactive Protein NT-Pro-B Natriuret Pep Total Protein Albumin Globulin Albumin/Globulin Ratio Lipase Procalcitonin Nasal Screen MRSA (PCR) Positive for mrsa H COVID-19 PCR Assessment & Plan Assessment & Plan narrative: 1. Supraglotic laryngitis with acute airway compromise, present on admission, active -patient was seen 2 weeks previous with sore throat and diagnosed with laryngitis treated with antibiotics and steroids. Symptoms are progressive now unable to manage secretions with acute dsypnea. -CT of the neck: Difuse enarged larynx with airway compromise, no evidence of retroperitoneal abscess. -patient is intubated however difficulty was encountered advancing the tube. Assistance of anesthesia was requested to complete intubation which was successfully accomplished with 6.5 ETT. -patient received 20 mg of Decadron in the ER will continue Decadron 4 mg every 6 hours -ordered clindamycin 900 mg IV every 8 hours, 1st dose is given in the ER. -ordered ceftriaxone 2 g IV daily. -consider ETT removal in 1-2 days with ENT or Anesthesia support 2. Impaired ventilation, Mechanical support, acute, active -setting per protocol, Vt-360, Rate-20, PEEP +5, FiO2 30%. Peak pressure 19, mean airway pressure 8. -Sedated on propofol titrate to RASS -2 -Fentanyl 50 mcg IV Q1H as needed for pain. -Continue oral gastric tube, placed to LCWS. -Jones Catheter placed. -bilateral soft wrist restraints. 3. History of glioma brain tumor with residual hemiparesis, chronic, stable. -patient has minimal motion of his right upper extremity, rigidity or bilateral lower extremities, uses a power wheelchair for mobilization. -patient has 24 hour non professional caregiver support at home -requested PT to consult, evaluate and treat. Isolation: None, COVID-19 screening negative. VTE prophylaxis: Bilateral SCDs, heparin IV fluid: Normal saline 125 cc/hour Diet: NPO, dietary to consult. Code status: FULL CODE. Quality VTE Deep Vein Thrombosis/Pulmonary Embolism Present on Admission: No
[2020-01-18] MEDS: propofoL 1,000 MG/100 ML VIAL 7.047 MG IV (17:43)
[2020-01-18] MEDS: fentaNYL 100 MCG/2 ML INJ 50 MCG IV (18:24)
[2020-01-18] MEDS: NYSTATIN POWDER 15GM 1 APPLIC TOP (21:00)
[2020-01-19] VITALS (26 sets, daily range): BP systolic 100–126; BP diastolic 68–86; PULSE 58–78; RESP 14–23; TEMP 36.1–36.9; O2SAT 89–100
[2020-01-19] MEDS: DEXAMETHASONE 4 MG/ML VIAL IV ×5 (00:02→23:41)
[2020-01-19] MEDS: FAMOTIDINE 20 MG/50 ML PIGGYBACK 200 MG IV ×3 (00:03→23:41)
[2020-01-19] MEDS: propofoL 1,000 MG/100 ML VIAL 14.094 MG IV ×2 (02:44→08:06)
[2020-01-19] MEDS: CLINDAMYCIN 900 MG/50 ML PIGGYBACK 50 MG IV ×3 (04:03→20:21)
[2020-01-19] MEDS: CEFTRIAXONE 2 GM/50 ML FROZ.PIGGY IV (05:11)
[2020-01-19 05:31] LABS: Add Manual Diff / Slide Review NO; Basophils Absolute Auto 0 /uL (0-100); Basophils Percent Auto 0.4 % (0-2); Eosinophils Absolute Auto 0 /uL (0-450); Hematocrit 32.9 % (41-53); Hemoglobin 11.2 g/dL (13.5-17.5); Lymphocytes Absolute Auto 1800 /uL (1100-4500); Lymphocytes Percent Auto 28.2 % (25-40); Mean Corpuscular Hemoglobin 27.3 PG (26-34); Mean Corpuscular Volume 80.2 fL (80-100); Monocytes Absolute Auto 300 /uL (0-900); Monocytes Percent Auto 4.3 % (3-14); Neutrophils Absolute Auto 4200 /uL (1500-7000); Neutrophils Percent Auto 67.1 % (50-75); Platelet Count 265 X10^3/uL (150-400); Red Cell Distribution Width 15.6 % (11.6-14.8); White Blood Cell Count 6.3 X10^3/uL (4.5-11.0)
[2020-01-19 05:45] LABS: BUN Creatinine Ratio 19.3 (6-22); Blood Urea Nitrogen 11 mg/dL (9-20); Calcium 8.7 mg/dL (8.4-10.2); Carbon Dioxide 20 mmol/L (22-32); Chloride 108 mmol/L (98-107); Estimated Glomerular Filt Rate > 60.0 mL/min (>60); Glucose 116 mg/dL (70-100); HEMOLYSIS < 15 (0-50); Potassium 3.7 mmol/L (3.4-5.1); Sodium 136 mmol/L (137-145)
[2020-01-19 05:48] LABS: C-Reactive Protein Quant 7.7 mg/dL (<1.0)
[2020-01-19 06:00] LABS: Erythrocyte Sedimentation Rate 31 MM/HR (0-15)
--- NOTE | 2020-01-19 06:00 | DI.RAD.S_ITS ---
PROCEDURE: XR CHEST 1V INDICATIONS: Intubation TECHNIQUE: One view of the chest was acquired. COMPARISON: [facility], CR, XR CHEST 1V, 01/18/2020, 10:58. FINDINGS: Surgical changes and devices: An endotracheal tube is identified with the tip positioned approximately 3.5 cm above the level of the jessy. A nasogastric tube is seen extending below the diaphragm. Lungs and pleura: The lungs are well aerated. However, there may be a small area of consolidation within the retrocardiac region at the left lung base. No effusion or pneumothorax is identified. Mediastinum: Mediastinal contours appear normal. Heart size is normal. Bones and chest wall: No suspicious bony lesions. Overlying soft tissues appear unremarkable. IMPRESSION: 1. Tubes and lines, as described. 2. Possible retrocardiac consolidation may represent atelectasis or pneumonia. Please correlate clinically. Dictated by: Mp Lazar M.D. on 01/19/2020 at 8:20 Approved by: Mp Lazar M.D. on 01/19/2020 at 8:22
[2020-01-19 06:16] LABS: Procalcitonin < 0.05 ng/mL (<0.5)
[2020-01-19] MEDS: SODIUM CHLORIDE 0.9% 1,000 ML 125 ML IV ×3 (06:42→23:42)
[2020-01-19] MEDS: HEPARIN 5,000 UNIT/ML VIAL 5000 UNIT SUBCUT ×2 (08:05→20:21)
[2020-01-19] MEDS: NYSTATIN POWDER 15GM 1 APPLIC TOP ×2 (08:17→20:21)
--- NOTE | 2020-01-19 11:35 | PM.PN.1 ---
Subjective Subjective Date Patient Seen: 01/19/20 Time Patient Seen: 13:25 Interval history: He is seen today in the intensive care unit to follow-up his supraglottic laryngitis with airway obstruction and current ventilator status. He is alert, awake, watching TV using his remote with the ET tube still in. He is a being tried on a pressure support trial along with decreased respiratory rate to ascertain a safe moment to remove his ET tube. Because of the supraglottic swelling there will be a lot of caution about when that occurs. He has been on antibiotics and Decadron with so far apparent good effect. His procalcitonin is less than than 0.05 with a CRP of 7.7 and ESR 31. Exam Vital Signs (past 8 hours): - 01/19/20 05:29 01/19/20 07:00 01/19/20 08:00 Temperature 97.8 F Pulse Rate 72 60 58 L Respiratory Rate 20 23 20 Blood Pressure 112/77 100/72 106/68 Pulse Oximetry 99 100 98 01/19/20 10:00 01/19/20 11:26 Temperature 98.5 F Pulse Rate 70 Respiratory Rate 21 Blood Pressure 122/86 Pulse Oximetry 99 96 Fraction of Inspired Oxygen 30 Oxygen Delivery Method Mechanical Ventilation Narrative Exam Narrative: He is alert and appears to be fully oriented, using his remote to control his TV with the ET tube still in. He is able to answer yes and no questions with head movements and he appears to understand the reasons for keeping the ET tube in for now. Heart is regular rate and rhythm without murmur Lungs are clear to auscultation bilaterally Extremities have no ankle edema. Objective Labs Result Diagrams: 01/19/20 05:08 01/19/20 05:08 Labs: Laboratory Results - last 24 hr 01/18/20 01/19/20 01/19/20 10:36 05:08 05:08 WBC 6.3 D RBC 4.10 L Hgb 11.2 L Hct 32.9 L MCV 80.2 MCH 27.3 MCHC 34.0 RDW 15.6 H Plt Count 265 Neut % (Auto) 67.1 D Lymph % (Auto) 28.2 Hancock % (Auto) 4.3 Eos % (Auto) 0.0 L Baso % (Auto) 0.4 Neut # (Auto) 4200 Lymph # (Auto) 1800 Hancock # (Auto) 300 Eos # (Auto) 0 Baso # (Auto) 0 ESR Sodium Potassium Chloride Carbon Dioxide BUN Creatinine Estimated GFR BUN/Creatinine Ratio Glucose Calcium C-Reactive Protein Procalcitonin < 0.05 Nasal Screen MRSA (PCR) Positive for mrsa H 01/19/20 01/19/20 01/19/20 05:08 05:08 05:08 WBC RBC Hgb Hct MCV MCH MCHC RDW Plt Count Neut % (Auto) Lymph % (Auto) Hancock % (Auto) Eos % (Auto) Baso % (Auto) Neut # (Auto) Lymph # (Auto) Hancock # (Auto) Eos # (Auto) Baso # (Auto) ESR 31 H Sodium 136 L Potassium 3.7 Chloride 108 H Carbon Dioxide 20 L BUN 11 Creatinine 0.57 L Estimated GFR > 60.0 BUN/Creatinine Ratio 19.3 Glucose 116 H Calcium 8.7 C-Reactive Protein 7.7 H Procalcitonin Nasal Screen MRSA (PCR) Assessment & Plan Assessment & Plan narrative: 1. Supraglotic laryngitis with acute airway compromise, present on admission, active -patient was seen 2 weeks previous with sore throat and diagnosed with laryngitis treated with antibiotics and steroids. Symptoms were progressive and on presentation was unable to manage secretions with acute dyspnea. -CT of the neck: Diffuse enlarged larynx with airway compromise, no evidence of retroperitonsillar abscess. -patient was intubated however difficulty was encountered advancing the tube. Assistance of anesthesia was requested to complete intubation which was successfully accomplished with 6.5 ETT. -patient received 20 mg of Decadron in the ER will continue Decadron 4 mg every 6 hours -continue clindamycin 900 mg IV every 8 hours, 1st dose is given in the ER. -continue ceftriaxone 2 g IV daily. -stop antibiotics as soon as possible -consider ETT removal later today or tomorrow 5/3 am with Anesthesia standby 2. Impaired ventilation, Mechanical support, acute, active -setting per protocol, Vt-360, Rate-20, PEEP +5, FiO2 30%. Peak pressure 19, mean airway pressure 8. -Sedation not currently being required -Fentanyl 50 mcg IV Q1H as needed for pain. -Continue oral gastric tube, placed to LCWS. -Jones Catheter placed. -bilateral soft wrist restraints. -RT weaning trials / with variation in RR and pressure support to ensure safety of extubation -it will be prudent to ask Anesthesia to be on standby when the tube is removed due to the problems with the original swelling/intubation. 3. History of glioma brain tumor with residual hemiparesis, chronic, stable. -patient has minimal motion of his right upper extremity, rigidity or bilateral lower extremities, uses a power wheelchair for mobilization. -patient has 24 hour non professional caregiver support at home -requested PT to consult, evaluate and treat. Isolation: None, COVID-19 screening negative. VTE prophylaxis: Bilateral SCDs, heparin IV fluid: Normal saline 125 cc/hour Diet: NPO, dietary consult appreciated and plan tube feedings/free water if still needing to be intubated 01/19. Code status: FULL CODE. Quality VTE Deep Vein Thrombosis/Pulmonary Embolism Present on Admission: No
--- NOTE | 2020-01-19 12:15 | RT ---
Spoke with Dr. Lockhart about the failed attempt to wean this patient on cpap/ps earlier this morning. Dr. Lockhart agreed to let him exercise his lungs on a rate of 10 in the PRVC mode he has been in since intubation. Patient only tolerated weaning in cpap/ps for 2 minutes. He is awake, alert and communicating with us, he just was not taking breaths on his own. Will attempt PRVC with a rate of 10 for 1 hour to see how he tolerates it.
--- NOTE | 2020-01-19 13:22 | RT ---
Patient changed back to PRVC rate of 20. All other settings the same. He tolerated the one hour on a rate of 10 well. HR increased to 61. Patient in no noted distress. He was breathing at a rate of 14 prior to being put back to his previous settings. His tidal volumes were around 400 when he was taking breaths of his own.
--- NOTE | 2020-01-19 15:13 | PC.NURSE ---
Am shift Pt is A/o x2, Propofol gtt titrated t/o shift, currently at 25mcg/kg/hr. Coarse lungs improved with in line suction. Vent remains on Fio2 30%, Peep 5, RR20, TV 360. SBT x2 today, later trial did much better, rate had been reduced to 10, and he was able to breath over with a rate of 16-18. Dr Lockhart hopeful to extubate tomorrow AM, with anesthesia at bedside. Update provided to mother, Marianela, x2 this shift with updated POC. Held phone to Pt's ear so she could talk to him. Robert with good output this shift. PIV x2, tele NSR, SB. Dr Lockhart made aware. SCDs in place and measured for KAVITHA hose. Base line neuro deficits of RUE and BLE. Heel booties in place.
[2020-01-19] MEDS: propofoL 1,000 MG/100 ML VIAL 11.745 MG IV (17:26)
--- NOTE | 2020-01-19 20:34 | PC.NURSE ---
1930 - Pt resting quietly. Sat noted to be drifting down. Upon entering room, sats 86% on Fio2 30%. Pt resting but awake. No cough, no s/s of distress. 100% breath administered. Tubing check. Oral care and suction. Sat increase to 90's with breath, however drift back down with return to preset Fio2. RT called. Cuff check with additional pressure. Moved pt to supine, amaral's position. Oral care and suction, additional 100% breath. 1999 - Pt not holding sats on Fio2 of 30% even following intervention. RT increased Fio2 to 40%. Hospitalist notified. Propofol infusing at 25mcg/kg/min. Pt awake and watching TV. Able to nod head in response to questions. Continues to have no s/s of distress. Monitor.
[2020-01-20] VITALS (25 sets, daily range): BP systolic 112–144; BP diastolic 77–98; PULSE 45–85; RESP 14–33; TEMP 36.4–36.7; O2SAT 93–100
[2020-01-20] MEDS: propofoL 1,000 MG/100 ML VIAL 11.745 MG IV ×3 (02:15→14:05)
[2020-01-20] MEDS: CLINDAMYCIN 900 MG/50 ML PIGGYBACK 50 MG IV ×3 (04:10→19:42)
--- NOTE | 2020-01-20 06:00 | DI.RAD.S_ITS ---
PROCEDURE: XR CHEST 1V INDICATIONS: Intubation TECHNIQUE: One view of the chest was acquired. COMPARISON: [facility], CR, XR CHEST 1V, 01/19/2020, 5:57. FINDINGS: Surgical changes and devices: Endotracheal tube is identified with the tip positioned approximately 4.1 cm above the level of the jessy. A nasogastric tube is seen with the tip located at the gastroesophageal junction. Lungs and pleura: The aeration of the lungs is similar to the previous exam. There may be mild airspace disease at the left lung base. No new areas of pulmonary consolidation are identified. There is a small left-sided pleural effusion, unchanged. No pneumothorax. Mediastinum: Mediastinal contours appear normal. Heart size is normal. Bones and chest wall: No suspicious bony lesions. Overlying soft tissues appear unremarkable. IMPRESSION: 1. Mild left basilar consolidation and trace left-sided pleural effusion are unchanged. 2. Nasogastric tube has been withdrawn slightly in the interim and is now positioned with the tip at the gastroesophageal junction. Dictated by: Mp Lazar M.D. on 01/20/2020 at 7:49 Approved by: Mp Lazar M.D. on 01/20/2020 at 7:52
[2020-01-20] MEDS: CEFTRIAXONE 2 GM/50 ML FROZ.PIGGY IV (06:54)
[2020-01-20] MEDS: DEXAMETHASONE 4 MG/ML VIAL IV ×4 (06:55→23:56)
[2020-01-20 07:42] LABS: Add Manual Diff / Slide Review NO; Basophils Absolute Auto 0 /uL (0-100); Basophils Percent Auto 0.2 % (0-2); Eosinophils Absolute Auto 0 /uL (0-450); Hematocrit 33.5 % (41-53); Hemoglobin 11.2 g/dL (13.5-17.5); Lymphocytes Absolute Auto 1800 /uL (1100-4500); Lymphocytes Percent Auto 21.4 % (25-40); Mean Corpuscular HGB Conc 33.6 % (30-36); Mean Corpuscular Volume 80.5 fL (80-100); Monocytes Absolute Auto 500 /uL (0-900); Monocytes Percent Auto 5.6 % (3-14); Neutrophils Absolute Auto 6100 /uL (1500-7000); Neutrophils Percent Auto 72.8 % (50-75); Platelet Count 279 X10^3/uL (150-400); Red Blood Cell Count 4.16 X10^6/uL (4.5-5.9); Red Cell Distribution Width 16.5 % (11.6-14.8); White Blood Cell Count 8.4 X10^3/uL (4.5-11.0)
[2020-01-20 07:54] LABS: BUN Creatinine Ratio 26.8 (6-22); Blood Urea Nitrogen 15 mg/dL (9-20); Calcium 8.8 mg/dL (8.4-10.2); Carbon Dioxide 18 mmol/L (22-32); Chloride 111 mmol/L (98-107); Estimated Glomerular Filt Rate > 60.0 mL/min (>60); Glucose 87 mg/dL (70-100); HEMOLYSIS < 15 (0-50); Potassium 3.5 mmol/L (3.4-5.1); Sodium 139 mmol/L (137-145)
--- NOTE | 2020-01-20 09:34 | PC.NURSE ---
Addendum entered by Mckayla Gore R.N. 01/20/20 15:22: Add, 1300, Prior to starting TF, advanced OG to 55, 3 cm advanced, and retaped at the ETT. Ausultation prior to administering TF. + air bubbling. RT to retest SBT @ 1600. Will attempt extubation with anesthesia tomorrow. Addendum entered by Mckayla Gore R.N. 01/20/20 14:49: Add, Free water flushes 300 mls, q4hr. Addendum entered by Mckayla Gore R.N. 01/20/20 14:41: Pt voided to urinal, 150 + spilled. Pt did well with trials today. UPdate to Marianela, . CXR this am, stable. slight displacement of OG tube. Lungs remain coarse, improved this shift with in line suction. OG tube to suction stopped, and Glucerna 1.5 @ 20mls/hr started @ 1445, per dietary recomendations. Increase 10 mls/hr until goal of 50 mls/hr reached. Addendum entered by Mckayla Gore R.N. 01/20/20 11:10: 0600- Pt has increased c/o discomfort and urge to urinate with myrick in place, adjusted, and some positional issues with drainage to bag. Bladder scan shows 48mls, and Pt continues to report pain. DIRECTOR SHIP at bedside to assess, and myrick removed. Will trial without, as Pt can make needs known with call light use and clipboard. Pt continues to express desire for ETT removal. Reassured rationale for the tube. Continue side to side rolling to offload pressure to coccyx. Waffle cushion in use. Blachable area to coccyx, heels in foam boots for protection. Original Note: 0300 Nursing Assumed care of Pt, who is alert, intubated, but making needs known with clipboard, denying pain. Requesting removal of ET Tube, educated about rationale and Anesthesia to be present for extubation. Plan for trial SBT later today. VSS, lungs remain coarse, improved with in line suction. 6.[address], monitoring secretions. OG tube remains in place to in wall LIS. NSR/SB. NPO per order. CBG 91.
[2020-01-20] MEDS: HEPARIN 5,000 UNIT/ML VIAL 5000 UNIT SUBCUT ×2 (10:17→21:17)
[2020-01-20] MEDS: NYSTATIN POWDER 15GM 1 APPLIC TOP ×2 (10:18→21:17)
[2020-01-20] MEDS: SODIUM CHLORIDE 0.9% 1,000 ML 125 ML IV ×2 (10:43→19:42)
--- NOTE | 2020-01-20 11:33 | RT ---
Addendum entered by Louise Mullins, RT 01/20/20 18:05: At 1530 patient was put on SBT for 2 hours on settings of 5/+5. Original Note: Patient was put on Pressure Support trial around 0853. 0853 patient was put on pressure support trial with settings of 20/+5. Patient was being told by RN to keep taking breaths. 0913 patient settings were changed to 10/+5 and patient did great on settings that he was put on 5/5 0930 patient was put on 5/+5 for an hour and a half. With good RR and VT. When putting patient back on settings with back up rate dropped rate to 15 current settings are 360/15/+5/30%. I trailed patient on a cuff leak and volumes stayed that same. I did hear a leak but during this action patient began to gag.
[2020-01-20] MEDS: FAMOTIDINE 20 MG/50 ML PIGGYBACK 200 MG IV ×2 (12:37→23:58)
--- NOTE | 2020-01-20 12:53 | PM.PN.1 ---
Subjective Subjective Date Patient Seen: 01/20/20 Time Patient Seen: 12:53 Interval history: He is seen in his room here today to follow up his acute airway emergency and ongoing ventilator management. The plan currently is to remove his ET tube, tomorrow Tuesday morning, when anesthesia is able to stand-by due to the airway narrowing issue. He appears to have a baseline narrowing that was exacerbated by the laryngitis. He is quite alert and amazingly tolerant of the ventilator with several trials of pressure support and varying respiratory rates tolerated quite well indicating that extubation should be smooth. Yesterday there was a brief desaturation episode attributed to a mucus plug. During my visit he is sedated on propofol. A culture sputum growing MRSA has just been reported. He will be started on tube feeds in the interim. Exam Vital Signs (past 8 hours): - 01/20/20 06:00 01/20/20 08:00 01/20/20 09:14 Temperature 97.5 F L Pulse Rate 60 85 Respiratory Rate 20 Blood Pressure 112/77 117/81 Pulse Oximetry 99 97 01/20/20 09:34 01/20/20 10:00 Temperature 97.8 F Pulse Rate 55 L Respiratory Rate 18 Blood Pressure 117/81 Pulse Oximetry 96 99 Fraction of Inspired Oxygen 30 Oxygen Delivery Method Mechanical Ventilation Oxygen Flow Rate 0 Narrative Exam Narrative: He is sedated on Propofol, appearing relaxed and in no distress. His ET tube is in place, along with an OG tube Heart: RRR without murmur Lungs: CTAB Ext: No ankle edema Objective Labs Result Diagrams: 01/20/20 07:30 01/20/20 07:30 Labs: Laboratory Results - last 24 hr 01/20/20 01/20/20 07:30 07:30 WBC 8.4 RBC 4.16 L Hgb 11.2 L Hct 33.5 L MCV 80.5 MCH 27.0 MCHC 33.6 RDW 16.5 H Plt Count 279 Neut % (Auto) 72.8 Lymph % (Auto) 21.4 L Humphreys % (Auto) 5.6 Eos % (Auto) 0.0 L Baso % (Auto) 0.2 Neut # (Auto) 6100 Lymph # (Auto) 1800 Humphreys # (Auto) 500 Eos # (Auto) 0 Baso # (Auto) 0 Sodium 139 Potassium 3.5 Chloride 111 H Carbon Dioxide 18 L BUN 15 Creatinine 0.56 L Estimated GFR > 60.0 BUN/Creatinine Ratio 26.8 H Glucose 87 Calcium 8.8 Assessment & Plan Assessment & Plan narrative: 1. Supraglotic laryngitis with acute airway compromise, present on admission, active -patient was seen 2 weeks previous with sore throat and diagnosed with laryngitis treated with antibiotics and steroids. Symptoms were progressive and on presentation was unable to manage secretions with acute dyspnea. -CT of the neck: Diffuse enlarged larynx with airway compromise, no evidence of retroperitonsillar abscess. -patient was intubated however difficulty was encountered advancing the tube. Assistance of anesthesia was requested to complete intubation which was successfully accomplished with 6.5 ETT. -patient received 20 mg of Decadron in the ER on 01/17 and has continued since then on Decadron 4 mg every 6 hours -continue clindamycin 900 mg IV every 8 hours, Now growing MRSA on Sputum Culture from ETT aspirate. Significance unclear. CXR without infiltrate. -stop Ceftriaxone -plan ETT removal tomorrow 5/4 am with Anesthesia standby 2. Impaired ventilation, Mechanical support, acute, active -setting per protocol, Vt-360, Rate-20, PEEP +5, FiO2 30%. Peak pressure 19, mean airway pressure 8. -Sedation vacations tolerated well -Fentanyl 50 mcg IV Q1H as needed for pain. -Continue oral gastric tube.. Needs to be advanced for tube feeding, per CXR 01/19. -Jones Catheter -bilateral soft wrist restraints. -RT weaning trials 01/18 and 01/19 tolerated well -it will be prudent to ask Anesthesia to be on standby when the tube is removed due to the problems with the original swelling/intubation. 3. History of glioma brain tumor with residual hemiparesis, chronic, stable. -patient has minimal motion of his right upper extremity, rigidity or bilateral lower extremities, uses a power wheelchair for mobilization. -patient has 24 hour non professional caregiver support at home -requested PT to consult, evaluate and treat. Isolation: None, COVID-19 screening negative. VTE prophylaxis: Bilateral SCDs, heparin IV fluid: Normal saline 125 cc/hour, begin tube feeding protocol per dietary. Diet: NPO, dietary consult appreciated and plan tube feedings/free water 01/19. Code status: FULL CODE. Quality VTE Deep Vein Thrombosis/Pulmonary Embolism Present on Admission: No
--- NOTE | 2020-01-20 19:49 | PC.NURSE ---
Addendum entered by Alma Gallegos R.N. 01/20/20 20:53: 1930 - Pt continues to be tearful. Wrote on his paper requesting soda. Reasurance provided. Propofol titrate to 30mcg/kg/min, however heart rate dropped into the 40's. Propofol returned to 25mcg/kg/min. Dr. Lockhart notified of HR and anxiety. Orders obtained. Returned to give ativan. Pt sleeping. Hr 42. Propofol gtt titrated down to 20 mcg/kg/min. Original Note: 1900 - Pt inc of loose stool. During care pt is tearful. Repeatedly indicating for ET tube removal and motioning for PO intake. Educated to treatment plan. Pt continues to cry. Reassurance provided. Oral care provided. Maceration and erythema to sherwin-rectal and sacral area r/t inc. Able to void per urinal. Propofol infusing at 25mcg/kg/min. SB per shelter monitor rate 51. LUE remains restrained r/t pt anxiety and forgetfulness. Sat 100%, Vent settings Fio2 30%, peep 5, Vt 360, RR 15. Call light in reach. Positioned bed for pt to watch TV. Bed alarm on. Monitor.
[2020-01-20] MEDS: LORazepam 2 MG/ML INJ 0.5 MG IV (21:12)
[2020-01-20] MEDS: propofoL 1,000 MG/100 ML VIAL 9.396 MG IV (22:29)
[2020-01-21] VITALS (13 sets, daily range): BP systolic 134–153; BP diastolic 87–96; PULSE 44–73; RESP 15–25; TEMP 36.2–37.1; O2SAT 95–100
[2020-01-21] MEDS: CLINDAMYCIN 900 MG/50 ML PIGGYBACK 50 MG IV ×2 (04:23→12:37)
[2020-01-21 05:44] LABS: Add Manual Diff / Slide Review NO; Basophils Absolute Auto 0 /uL (0-100); Basophils Percent Auto 0.1 % (0-2); Eosinophils Absolute Auto 0 /uL (0-450); Hematocrit 33.9 % (41-53); Hemoglobin 11.6 g/dL (13.5-17.5); Lymphocytes Absolute Auto 1300 /uL (1100-4500); Lymphocytes Percent Auto 20.4 % (25-40); Mean Corpuscular HGB Conc 34.1 % (30-36); Mean Corpuscular Hemoglobin 27.6 PG (26-34); Mean Corpuscular Volume 80.9 fL (80-100); Monocytes Absolute Auto 300 /uL (0-900); Monocytes Percent Auto 4.4 % (3-14); Neutrophils Absolute Auto 4800 /uL (1500-7000); Neutrophils Percent Auto 75.1 % (50-75); Platelet Count 274 X10^3/uL (150-400); Red Blood Cell Count 4.19 X10^6/uL (4.5-5.9); Red Cell Distribution Width 16.2 % (11.6-14.8); White Blood Cell Count 6.4 X10^3/uL (4.5-11.0)
[2020-01-21] MEDS: DEXAMETHASONE 4 MG/ML VIAL IV ×2 (05:53→12:37)
--- NOTE | 2020-01-21 06:00 | DI.RAD.S_ITS ---
PROCEDURE: XR CHEST 1V INDICATIONS: Intubation TECHNIQUE: One view of the chest was acquired. COMPARISON: [facility], CR, XR CHEST 1V, 01/20/2020, 5:45. FINDINGS: Surgical changes and devices: ET tube tip approximately 2 cm above the jessy. Lungs and pleura: Unchanged mild left basilar consolidation No pleural effusions or pneumothorax. Mediastinum: Mediastinal contours appear normal. Heart size is normal. Bones and chest wall: No suspicious bony lesions. Overlying soft tissues appear unremarkable. IMPRESSION: Unchanged mild left basilar consolidation. Dictated by: Simón Boyer M.D. on 01/21/2020 at 9:21 Approved by: Simón Boyer M.D. on 01/21/2020 at 9:23
[2020-01-21] MEDS: SODIUM CHLORIDE 0.9% 1,000 ML 125 ML IV (07:10)
[2020-01-21] MEDS: NYSTATIN POWDER 15GM 1 APPLIC TOP (08:35)
[2020-01-21] MEDS: HEPARIN 5,000 UNIT/ML VIAL 5000 UNIT SUBCUT (08:35)
[2020-01-21] MEDS: RACEPINEPHRINE 0.5 ML NEB INH (10:12)
--- NOTE | 2020-01-21 11:07 | RT ---
Patient was extubated at 0955 with anesthesiologist present incase we had to intubate patient again. Patient was put on a 2lpm patient did not exhibit any shortness of breath.
[2020-01-21] MEDS: FAMOTIDINE 20 MG/50 ML PIGGYBACK 200 MG IV (12:37)
--- NOTE | 2020-01-21 14:46 | PC.NURSE ---
Day Shift Note Pt intubated on mechanical vent on AM assessment. Propofol gtt for sedation, pt RASS at a 0, turned off at 0730 during CPAP trial. CPAP trial started by RT at 0710, pt did well, pulled good volumes, SpO2 97-98% on FiO2 of 30%, RR 18-22 bpm, and breathing pattern unlabored. Reviewed with Dr. Johnson and order to extubate received. Extubated at 0955 to 2L NC with anesthesiologist (Dr. Elise) standing by in case of immediate reintubation need. No issues on extubation, weaned to RA at 1200. SpO2 99%. Weak cough exhibited, minimal secretions noted. Speech slightly garbled but per baseline. Incontinent of urine frequently throughout shift. Turning every 2 hours to offload pressure. Buttocks are erythemic but blanchable. Barrier cream applied with each brief change. Alert and oriented x3 and able to make needs known. Mother (Marianela) updated via phone. Speech therapy eval completed this afternoon - cleared for mech. soft/thin liquids. Dr. Johnson updated. Call light within reach, using appropriately to make needs known.
--- NOTE | 2020-01-21 15:07 | ST.IPIE ---
Visit Care Team Role Provider Type Nargis Fernandez DO Primary Care Provider Physician Specialty: Family Practice Address: [address] [place] [address], [facility], [place], [address] Email: [email or web address] DO Emergency Provider Physician Referring Provider Specialty: Emergency Medicine Address: [address] [place] [address], [id number] Email: [email or web address] MANJULA To Admit Provider Physician Attending Provider Specialty: Internal Medicine Address: [address] [place] [address], [id number] Email: [email or web address] Current Diagnoses Hemiplegia, unspecified affecting unspecified side (01/18/20) Acute laryngitis (01/18/20) Unspecified lack of expected normal physiological development in childhood (01/18/20) Personal history of other specified conditions (01/18/20) Past Medical History (Last Reviewed 01/18/20 @ 06:51 by MANJULA To) Depression (Chronic Medical) Dysarthria (Acute Medical) Glioma (Chronic Medical) Age 5, inoperable, 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 Johnson Reason for Referral Swallow eval s/p extubation Setting Assessment Location Acute Care Visit Type Note Type Initial Evaluation Next Note Type Next Note Type Treatment Note Patient Information Identification Type Name,ID Card History The pt is a 39-yr-old male familiar to this clinician from outpatient dysphagia and speech-language therapy. He has a history of glioma brain tumor since age 5 with residual right hemipareses, pseudobulbar palsy, dysarthria and depression. He presented to ER with SOB and supraglotic laryngitis with acute airway compromise. CT of neck revealed diffuse enlarged larynx with airway compromise. The pt was intubated in ER ( 01/17) with difficulty advancing the tube, requiring anethesia assistance. He was extubated this morning. During intubation, the pt received tube feeding for nutrition/ hydration. Chest x-ray today showed Unchanged mild left basilar consolidation. Subjective Observations The pt was awake, sitting up in bed and watching TV. He recognized the clinician and greeted her. He was agreeable to swallow eval, stating he was hungry and requested soda. Evaluation Liquids Trialed Ice Chips,Thin,[place] Solids Trialed Puree,Dysphagia Mechanical, Dysphagia Advanced,Mechanical Soft,Regular Administration Type Tea Spoon,Straw,Self-Feeding, Dependent Feeding Oral Impairment Moderately Impaired Oral Strategies Upright at 90 degrees,Double Swallow Oral Phase Comments Oral Peripheral Exam: Pt exhibits overall moderate- severe weakness of all structures with limited ROM. Significant right side lingual deviation noted and reduced right side facial tone observed upon smile. Pt unable to perform lip seal adequate to contain air in cheeks. Mild -moderate saliva pooling observed with only one episode of drooling with oral intake. The pt was unable to perform volitional cough. He performed weak throat clearing. He stated he cannot cough on command. These findings are consistent with the pt's baseline status. Oral Phase: Moderate impairment secondary to oral weakness and characterized by slow oral prep including frequent mashing mastication, delayed swallow trigger which likely allows early spillage to pharynx particularly with liquids. Minimal oral residue at teeth observed. Strict oral care is recommended. Pt prefers to drink from straw at right side of mouth. He was able to perform adequate lip seal around straw. Pharyngeal Impairment Mildly Impaired Pharyngeal Strategies Sitting Upright (90 deg), Double Swallow,Small Bites and Sips Pharyngeal Phase Comments The pt exhibited one episode of what appeared to be airway obstruction after consuming 2nd tsp of water. The pt recovered within ~10 seconds and stated that he was sitting up too high. HOB was lowered to ~70 degrees, which the pt stated was his normal position. No other airway obstruction episodes and no coughing was observed throughout the remainder of the evaluation with all textures including thin liquid from tsp and straw. The pt exhibited mildly wet vocal quality intermittently throughout exam, which cleared with subsequent dry swallow. Informed pt of evaluation results and reviewed aspiration precautions. The pt was able to restate precautions and was in agreement with recommendation of thin liquid in small sips via straw, and mechanical soft texture to ease mastication and reduce fatigue. Meds recommended in carrier for added safety. Findings Dysphagia Type Mild-moderate oropharyngeal dysphagia Rehabilitation Potential Fair Impressions The pt presents with swallow function/safety at or near baseline. Occasional wet vocal quality observed and remedied with double swallow. The pt is well aware of aspiration precautions but does benefit from occasional reminders for double swallow. He is able to self-feed with left hand after set-up assistance. Diet Recommendations Liquids Order Thin Diet Order Mechanical Soft Medication Recommendations Whole in Carrier Additional Dietary Needs Single Sips,Reminders to Use Strategies Aspiration Precautions Recommended Precautions Small Bites/Sips,Double Swallow Additional Precautions Upright at ~70 degrees; Strict oral care Treatment Plan Placement Recommendations after Home,Home Care Discharge Therapy Recommendations Ongoing assessment as needed Dysphagia Goals The pt will tolerate mechanical soft diet and thin liquids without overt s/sx of aspiration. Referrals/Other Recommended Referrals ENT Consult
--- NOTE | 2020-01-21 17:46 | PC.NURSE ---
1710 Pt assisted to get dressed, IV's removed with catheters intact, discharge directions reviewed with mother Marianela. Carlos Alberto lift used to place pt into his own wheelchair. Pt and mother escorted to Emergency room entrance. No further patient contact at this time.
--- NOTE | 2020-01-24 17:39 | P.DS_ITS ---
History of Present Illness History of Present Illness Date Patient Seen: 01/24/20 Chief complaint: SOB Narrative: Mr. Jonnie Christopher is a 39-year-old male with a history significant for glioma brain tumor since age 5 with residual right hemiparesis, pseudobulbar palsy, dysarthria and depression who presents to the ER with shortness of breath, sore throat an impaired airway. The patient lives at home with 24 hour helpers and over the last few days has had progressive dyspnea with difficulty managing secretions for the last 2 days. The patient has associated symptoms subjective fevers and throat pain. The patient was seen previously on 01/03/[address] [facility] for sore throat with increased phlegm. At that time he had no fevers or chills swelling was intact painful and the time his strep test was negative and he was given Decadron and antibiotics. Over the intervening 2 weeks the patient has slowly deteriorated. No subjective is available the time of admission as the patient has been intubated. Upon arrival to the ER the patient has a temperature of 98.3?, heart rate of 1 03, blood pressure 135/102, respirations of 20 saturating 96% with inability to manage airway or secretions. A CT of the neck shows diffuse enlarged larynx with airway compromise, supraglottic laryngitis versus angioedema versus mass. CT of the abdomen and pelvis finds small pericardial effusion, as pleural effusion and cholelithiasis. On atrial blood gases he has a pH of 7.35, pCO2 of 40, PO2 of 79, bicarb of 23 with a base excess of -3 on 30% FiO2. On laboratory analysis the patient has white count of 14.2, hemoglobin 13.8, hematocrit of 40.2 and platelets of 279. His electrolytes are within normal range has a BUN of 8 and creatinine of 0.5. His nonfasting glucose is 93 he has lipase elevated at 700. His procalcitonin is less than 0.05 and CRP has 4.1. Total CK is 34 troponin is less than 0.012. ProBNP is 573. In the ER the patient received 900 mg of clindamycin IV and Decadron 20 mg IV. He is intubated with a 6.5 ET tube by Anesthesia. The patient is admitted to the ICU by the medicine service on ventilatory support for severe airway compromise related to supraglottic swe lling. Discharge Providers Provider Date of admission: 01/18/20 05:27 Discharge Date: 01/21/20 Primary care physician: Nargis Fernandez DO Consults: 01/18/20 05:30 Consult to Dietitian, Adult Routine Comment: Reason For Exam: Patient on Ventilator and NPO 01/18/20 06:17 Consult to Physical Therapy Evaluate & Treat Comment: Evaluate mobility, passive range of motion Physician Instructions: Evaluate and Treat 01/18/20 08:11 Consult to Dietitian, Adult Routine Comment: Reason For Exam: Intubated patient 01/21/20 11:20 Consult to Speech Therapy Evaluate & Treat Comment: Extubated 01/20 at 1000 Physician Instructions: Evaluate and treat Discharge provider: Kay Johnson MD Summary Hospital Course Discharge Diagnosis: 1. Supraglottic Laryngitis 2. REspiratory Failure secondary to above 3. History of Glioma Hospital Course: Patient is a 39-year-old male who was admitted to the hospital with supraglottic laryngitis. Patient had significant shortness of breath and airway is compromised. He was successfully intubated by anesthesia. Was felt that the patient may have had radiation in the past causing possible laryngeal stricture. He was placed on Decadron, IV antibiotics, and remain intubated. After 48 hours the patient had sedation vacation. He was able to pass a weaning trial. And he was successfully extubated. The patient was able to eat. He had no further shortness of breath sore throat or laryngeal symptoms. He was deemed appropriate for discharge and arrangements were made for him to be discharged home. Status at Discharge Cognitive/behavioral status at discharge: oriented Functional status at discharge: bed bound Overall status at discharge: patient is back to baseline Time Spent with Patient Time spent: Less than 30 minutes Exam Vital Signs (past 8 hours): Fraction of Inspired Oxygen 30 Oxygen Delivery Method Room Air Oxygen Flow Rate 0 Narrative Exam Narrative: Pleasant gentleman lying in bed in no obvious distress HEENT: Normocephalic atraumatic Lungs: Decreased breath but clear to auscultate Cardiac exam: Regular rate and rhythm normal S1-S2 Abdomen: Soft nontender nondistended Extremities: No edema Objective Labs Result Diagrams: 01/21/20 05:07 01/20/20 07:30 Discharge Plan Discharge Plan Patient Disposition: Home Discharge orders & Medications Prescriptions: New doxycycline hyclate 100 mg capsule 100 mg PO BID Qty: 10 RF: 0 Continued latanoprost 0.005 % Drops 1 drp EYE-BOTH BEDTIME RF: 0 No Action (DME) Disabled Parking Qty: 1 RF: 0 (DME) Battery Powered Lift Qty: 1 RF: 0 (DME) Power Chair tall Qty: 1 RF: 0 (DME) Semi-electric hospital bed Qty: 1 RF: 0 (DME) Shower Chair Qty: 1 RF: 0 sertraline 100 mg tablet 100 mg PO DAILY Qty: 90 RF: 1 Follow up/Referrals: Nargis Fernandez DO [Primary Care Provider] - Diet/Activity/Treatments Diet: Diet as Tolerated Visit Report/Discharge Packet Visit Report Forms: Patient Portal/API, Stroke Signs & Symptoms Discharge Data Primary Care Provider: Nargis Fernandez Discharges patient from system. Discharge Date/Time: 01/21/20 17:15 Quality VTE Deep Vein Thrombosis/Pulmonary Embolism Present on Admission: No
== END 2020-01-21 17:15 | disposition home or self-care (01) | DRG 208 ==
LOC: ED 01-18 05:05 → ICU 01-18 07:55
PROVIDERS: Admitting Provider Nurse Practitioner Adult Health; Emergency Provider Emergency Medicine; PCP Family Medicine; Referring Provider Emergency Medicine; Visit Provider Nurse Practitioner Adult Health
DX: J98.8 Other specified respiratory disorders (principal); G81.91 Hemiplegia, unspecified affecting right dominant side; G12.29 Other motor neuron disease; J96.00 Acute respiratory failure, unspecified whether with hypoxia or hypercapnia; J04.0 Acute laryngitis; R47.1 Dysarthria and anarthria; Z85.841 Personal history of malignant neoplasm of brain; Z03.818 Encounter for observation for suspected exposure to other biological agents ruled out; Z99.3 Dependence on wheelchair
CPT/HCPCS: 36415; 36600; 51701; 70491; 71045; 71260; 74177; 80048; 80053; 82550; 82728; 82805; 82962; 83605; 83690; 83880; 84145; 84484; 85025; 85651; 86140; 87040; 87070; 87077; 87147; 87186; 87205; 87635; 87797; 92610; 94002; 94003; 94010; 94640; 94770; 94799; 96361; 96365; 96375; 99285; 99291; 99292; J0171; J0696; J1100; J1644; J2060; J2405; J2704; J2765; J3010; Q9967

== ENCOUNTER 2020-03-05 14:30 | Outpatient (RCR) | payer MEDICAID, OTHER, SELFPAY ==
[2019-11-14 10:24] VITALS: BMI 21.5
--- NOTE | 2019-12-02 16:20 | ST.OPIE ---
Visit Care Team Role Provider Type Nargis Fernandez DO Primary Care Provider Physician Specialty: Family Practice Address: [facility], [address], [place], [address] Email: [email or web address] Darien Retana MD Attending Provider Non-Staff Referring Provider Specialty: Neurology Address: [facility] [address], [place], [id number] Email: Speech-Language Pathology Initial Evaluation STRATEGIC INSIGHTS LEAD Clinical Swallow Evaluation Start: 11/21/19 16:59 Freq: Status: Active Protocol: Document 11/21/19 17:00 ILDA (Rec: 11/21/19 17:09 ILDA [id number]) Motor Speech Evaluation Session Time Visit Start Time 12:30 Visit Stop Time 13:25 Total Visit Minutes 55 Visit Information Visit Number Initial Evaluation Plan of Care Dates 11/21/19 - 01/20/20 Setting Setting Outpatient Care Next Note Type Next Note Type Treatment Note Patient History Source: [employer] Patient History Jonnie is a 39-yr-old male who is familiar to this clinician from previous outpatient Speech Therapy targeting dysphagia and dysarthria. 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 Jonnie was being seen in Speech Therapy in the fall of 2018 but stopped attending. He has been hospitalized at [facility] since 09/17/19, including for aspiration pneumonia. He underwent MBSS on 09/28/19, which revealed significant silent penetration and aspiration. He was recommended dysphagia mechanical texture, NTL, and continued dysphagia therapy. He was seen by his Neurologist, Dr. Darien Retana, on 07/27/19, prior to hospitalizations, who also recommended continued Speech Therapy for dysarthria. Referral Referring Physician Dr. Darien Retana Reason for Referral Dysarthria, Dysphagia Mental Status Mental Status Alert,Responsive,Cooperative Subjective Observations Subjective Jonnie arrived on time. He stated that he felt that both his speech and his swallow had improved, but that he does still occasionally have trouble swallowing. He stated he goal was to swallow better. Oral Motor Lips Function Moderate Impairment Observation at rest Open, consistent slow drooling Pucker Reduced rounding Retraction WFL Alternating pucker/retraction Mildly slow Involuntary Movement None observed Tongue Function Severe Impairment Observations at rest At rest on floor of mouth Protrusion Strong deviation to right side Retraction WFL Lateralization Slow but adequate ROM; Severely weak against resistance Involuntary Movement None observed Jaw Function WFL Observations at rest Open slightly Opening WNL Closing WNL, able to maintain closure against resistance Lateralization WFL Protrusion DNT Retraction DNT Involuntary movement None observed Soft Palate Function Severe Impairment Observations at rest WNL Symmetry WNL Elevation Little to no elevation upon sustained and successive phonation Sustained Elevation Absent Alternating elevation/relaxation Absent elevation Involuntary Movement None observed Respiration/Phonation Tools Observations Shallow breathing, reduced for speech and voice Formal [place] MPT = 4 sec with good voicing; 6 sec total; Dysarthria Profile Phonation Stimulus Dysarthria Profile respiration & phonation tasks Quality Hoarse,Harsh,Strained- strangled Other Wet; Hypernasal Function Moderately Impaired Loudness Reduced Loudness Conversation Stimulus Case History Quality Hoarse,Harsh,Strained- strangled Other Wet; Hypernasal Duration Moderately Impaired Function Moderately Impaired Loudness Reduced Loudness Diadochokinetic Rates P^ Duration per 3 sec. 8 T^ Duration per 3 sec. (L^) 10 P^T^K^ Duration per 3 sec. 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 Symptoms result in reduced speech intelligibility, ~80% intelligible to this familiar listener with effort from the listener (i.e., lip reading, contextual clues) and estimated 60-70% to unfamiliar listeners, based on clinical judgement and pt report. Prognosis Rehabilitation Potential Fair Recommendations Treatment Recommended Yes Frequency 1x/wk for 8 wks Therapy Recommendations Clinical swallow evaluation Pt education and training in compensatory communication strategies and oral motor and respiratory exercises to support voice and speech and increase speech intelligibility. Short Term Goals 1. The pt will participate in evaluation of swallow function /safety to determine risk of aspiration and guide POC. 2. The pt will perform oral motor exercises with mild- moderate cues as needed to increase strength and coordination of articulators to improve speech intelligibility. 3. The pt will demonstrate understanding of compensatory speech strategies to increase his ability to communicate with others effectively. Group Home Goals 1. The pt will perform oral motor and respiratory exercises with min cues to improve speech intelligibility . 2. The pt will use compensatory speech strategies independently in 80% of opportunities to improve his ability to communicate wants/ needs/ideas independently in his functional environment. 3. The pt will tolerate least restrictive diet to meet his nutrition and hydration needs. Patient/Family Education Education Described results of evaluation,Patient Understanding,Patient Needs More Info
--- NOTE | 2019-12-03 17:04 | ST.OPIE ---
Visit Care Team Role Provider Type Nargis Fernandez DO Primary Care Provider Physician Specialty: Family Practice Address: [facility], [address], [place], [address] Email: [email or web address] Darien Retana MD Attending Provider Non-Staff Referring Provider Specialty: Neurology Address: [address] [place] [address], [place], [address] Email: Speech-Language Pathology Initial Evaluation GAS STATION OPERATOR Clinical Swallow Evaluation Start: 11/21/19 16:59 Freq: Status: Active Protocol: Document 11/27/19 17:00 ILDA (Rec: 11/27/19 17:02 ILDA [email or web address]) Clinical Swallow Evaluation Session Time Visit Start Time 12:30 Visit Stop Time 13:00 Total Visit Minutes 45 Visit Information Visit Number 2 Plan of Care Dates 11/21/19 - 01/20/20 Insurance Information [facility] Referral Referring Physician Dr. Darien Retana Reason for Referral Dysarthria, Dysphagia Setting Assessment Location Outpatient Care Visit Type Note Type Treatment Note Next Note Type Next Note Type Treatment Note Patient Information History Jonnie is a 39-yr-old male who is familiar to this clinician from previous outpatient Speech Therapy targeting dysphagia and dysarthria. 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 Jonnie was being seen in Speech Therapy in the fall of 2018 but stopped attending. He has been hospitalized at [facility] since 09/17/19, including for aspiration pneumonia. He underwent MBSS on 09/28/19, which revealed significant silent penetration and aspiration. He was recommended dysphagia mechanical texture, NTL, and continued dysphagia therapy. He was seen by his Neurologist, Dr. Darien Retana, on 07/27/19, prior to hospitalizations, who also recommended continued Speech Therapy for dysarthria. Subjective Observations Pt arrived on time unaccompanied. Stated he forgot to invite his CG to join and that CG is sick and would not have been able to anyway. Evaluation Liquids Trialed Thin Solids Trialed Mechanical Soft,Regular Administration Type Straw,Self-Feeding Oral Impairment Moderately Impaired Oral Strategies Upright at 90 degrees Oral Phase Comments Pt exhibited reduced bolus prep, control and a/p propulsion secondary to weakness of oral musculature. Mastication was slow and included both rotary and mashing movements. Pt maintained anterior containment of food particles but exhibited moderate and consistent escape of saliva during oral prep phase. A/P propulsion was facilitated by forward lingual thrust. No abnormal oral residue observed . No nasal regurgitation observed. Pharyngeal Impairment Moderately Impaired Pharyngeal Strategies Sitting Upright (90 deg) Pharyngeal Phase Comments The pt exhibited one wet- sounding cough at the end of all trials. No other overt s/ sx of aspiration were observed . The pt's voice remained clear throughout trials. The pt has a hx of having wet sounding voice in conversation in previous treatment and at last session, indicating inconsistent airway protection in relation to swallow. Reduced pharyngeal/laryngeal sensation is also suspected d/ t the absence of the pt self- monitoring and clearing of voice when it is wet. Most significant, the pt has a history of silent aspiration, as revealed by MBS in September; therefore, silent aspiration cannot be ruled out, and the pt's pharyngeal swallow phase is determined to be moderately impaired. Findings Dysphagia Type Moderate oropharyngeal dysphagia Rehabilitation Potential Fair Impressions The pt presents with moderate oropharyngeal dysphagia secondary to underlying medical condition which results in moderate-severe weakness of swallow musculature. While the pt exhibited minimal overt s/sx of possible aspiration, silent aspiration cannot be ruled out given the results of most recent MBS (Sep 2019). Diet Recommendations Liquids Order Thin Diet Order Mechanical Soft Medication Recommendations As Tolerated Aspiration Precautions Recommended Precautions Upright at 90 Degrees,Small Bites/Sips,Effortful Swallow, Double Swallow Additional Precautions Frequent oral hygiene 2-3x/day Treatment Plan Placement Recommendations after Home,Home Care Discharge Appropriate for Therapy Yes Therapy Recommendations Ongoing education and training of swallow exercises and safe swallow strategies. Dysphagia Goals 1. The pt will perform exercises to increase strength , coordination and ROM of swallow musculature to reduce risk of aspiration. 2. The pt will tolerate least restrictive diet to meet his nutrition and hydration needs. GAS STATION OPERATOR Motor Speech Evaluation Start: 11/21/19 16:59 Freq: Status: Active Protocol: Document 11/21/19 17:00 ILDA (Rec: 11/21/19 17:09 ILDA [email or web address]) Motor Speech Evaluation Session Time Visit Start Time 12:30 Visit Stop Time 13:25 Total Visit Minutes 55 Visit Information Visit Number Initial Evaluation Plan of Care Dates 11/21/19 - 01/20/20 Insurance Information [facility] Setting Setting Outpatient Care Next Note Type Next Note Type Treatment Note Patient History Source: [employer] Patient History Jonnie is a 39-yr-old male who is familiar to this clinician from previous outpatient Speech Therapy targeting dysphagia and dysarthria. 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 Jonnie was being seen in Speech Therapy in the fall of 2018 but stopped attending. He has been hospitalized at [facility] since 09/17/19, including for aspiration pneumonia. He underwent MBSS on 09/28/19, which revealed significant silent penetration and aspiration. He was recommended dysphagia mechanical texture, NTL, and continued dysphagia therapy. He was seen by his Neurologist, Dr. Darien Retana, on 07/27/19, prior to hospitalizations, who also recommended continued Speech Therapy for dysarthria. Referral Referring Physician Dr. Darien Retana Reason for Referral Dysarthria, Dysphagia Mental Status Mental Status Alert,Responsive,Cooperative Subjective Observations Subjective Jonnie arrived on time. He stated that he felt that both his speech and his swallow had improved, but that he does still occasionally have trouble swallowing. He stated he goal was to swallow better. Oral Motor Lips Function Moderate Impairment Observation at rest Open, consistent slow drooling Pucker Reduced rounding Retraction WFL Alternating pucker/retraction Mildly slow Involuntary Movement None observed Tongue Function Severe Impairment Observations at rest At rest on floor of mouth Protrusion Strong deviation to right side Retraction WFL Lateralization Slow but adequate ROM; Severely weak against resistance Involuntary Movement None observed Jaw Function WFL Observations at rest Open slightly Opening WNL Closing WNL, able to maintain closure against resistance Lateralization WFL Protrusion DNT Retraction DNT Involuntary movement None observed Soft Palate Function Severe Impairment Observations at rest WNL Symmetry WNL Elevation Little to no elevation upon sustained and successive phonation Sustained Elevation Absent Alternating elevation/relaxation Absent elevation Involuntary Movement None observed Respiration/Phonation Tools Observations Shallow breathing, reduced for speech and voice Formal Mesaures MPT = 4 sec with good voicing; 6 sec total; Dysarthria Profile Phonation Stimulus Dysarthria Profile respiration & phonation tasks Quality Hoarse,Harsh,Strained- strangled Other Wet; Hypernasal Function Moderately Impaired Loudness Reduced Loudness Conversation Stimulus Case History Quality Hoarse,Harsh,Strained- strangled Other Wet; Hypernasal Duration Moderately Impaired Function Moderately Impaired Loudness Reduced Loudness Diadochokinetic Rates P^ Duration per 3 sec. 8 T^ Duration per 3 sec. (L^) 10 P^T^K^ Duration per 3 sec. 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 Symptoms result in reduced speech intelligibility, ~80% intelligible to this familiar listener with effort from the listener (i.e., lip reading, contextual clues) and estimated 60-70% to unfamiliar listeners, based on clinical judgement and pt report. Prognosis Rehabilitation Potential Fair Recommendations Treatment Recommended Yes Frequency 1x/wk for 8 wks Therapy Recommendations Clinical swallow evaluation Pt education and training in compensatory communication strategies and oral motor and respiratory exercises to support voice and speech and increase speech intelligibility. Short Term Goals 1. The pt will participate in evaluation of swallow function /safety to determine risk of aspiration and guide POC. 2. The pt will perform oral motor exercises with mild- moderate cues as needed to increase strength and coordination of articulators to improve speech intelligibility. 3. The pt will demonstrate understanding of compensatory speech strategies to increase his ability to communicate with others effectively. Car Pick Up Driver Goals 1. The pt will perform oral motor and respiratory exercises with min cues to improve speech intelligibility . 2. The pt will use compensatory speech strategies independently in 80% of opportunities to improve his ability to communicate wants/ needs/ideas independently in his functional environment. 3. The pt will tolerate least restrictive diet to meet his nutrition and hydration needs. Patient/Family Education Education Described results of evaluation,Patient Understanding,Patient Needs More Info
--- NOTE | 2019-12-03 17:05 | ST.OPTN ---
Visit Care Team Role Provider Type Nargis Fernandez DO Primary Care Provider Physician Address: [facility], [address], [place], [address] Darien Retana MD Attending Provider Non-Staff Referring Provider Address: [address] , [place], [address] ALLERGIST Treatment Note ALLERGIST Treatment Note Start: 11/27/19 17:02 Freq: Status: Active Protocol: Document 11/27/19 17:02 ILDA (Rec: 11/27/19 17:03 ILDA [email or web address]) Speech Pathology Treatment Note Session Time Visit Start Time 13:00 Visit Stop Time 13:15 Total Visit Minutes 15 Visit Information Visit Number 2 Plan of Care Dates 11/21/19 - 01/20/20 Insurance Information [facility] Setting Treatment Setting Outpatient Care Visit Type Note Type Treatment Note Next Note Type Next Note Type Treatment Note General Information General Information Jonnie is a 39-yr-old male who is familiar to this clinician from previous outpatient Speech Therapy targeting dysphagia and dysarthria. 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 Jonnie was being seen in Speech Therapy in the fall of 2018 but stopped attending. He has been hospitalized at [facility] since 09/17/19, including for aspiration pneumonia. He underwent MBSS on 09/28/19, which revealed significant silent penetration and aspiration. He was recommended dysphagia mechanical texture, NTL, and continued dysphagia therapy. He was seen by his Neurologist, Dr. Darien Retana, on 07/27/19, prior to hospitalizations, who also recommended continued Speech Therapy for dysarthria. Subjective Chief Complaint(s) Speech,Swallowing Patient Knowledge/Awareness of ALLERGIST Role Good in Treatment Patient/Caregiver Compliance with Home Fair Exercise Program Objective Short Term Goals 1. The pt will participate in evaluation of swallow function /safety to determine risk of aspiration and guide POC. GOAL MET 2. The pt will perform oral motor exercises with mild- moderate cues as needed to increase strength and coordination of articulators to improve speech intelligibility. 3. The pt will demonstrate understanding of compensatory speech strategies to increase his ability to communicate with others effectively. Yarn Wrapper Goals 1. The pt will perform oral motor and respiratory exercises with min cues to improve speech intelligibility . 2. The pt will use compensatory speech strategies independently in 80% of opportunities to improve his ability to communicate wants/ needs/ideas independently in his functional environment. 3. The pt will tolerate least restrictive diet to meet his nutrition and hydration needs. Treatment Activities Inititated oral motor exercise training. Pt returned demonstration and verbalized understanding. Needs reinforcement. Instructions provided orally with demonstration and in writing for home practice. Assessment Patient Response to Treatment Fair Rehab Potential Fair Impairments Identified Dysarthria,Dysphagia Assessment of Improvement The pt was responsive to training and education. Exercises adapted so pt was able to perform all per instructions. Needs reinforcement and CG training to promote consistent home practice. Reviewed with Patient Goals,Progress Being Made,Home Exercise Program Patient/Caregiver Understanding Good Plan Therapeutic Contents Client Education,Home Exercise Program,Oral Motor Training, Swallowing/Feeding Provided Patient/Caregiver Instruction Home Exercise Program,Plan of Care,Questions/Concerns Therapy Recommendations Continue with Current Program
--- NOTE | 2020-02-18 12:00 | ST.OPRE ---
Visit Care Team Role Provider Type Nargis Fernandez DO Primary Care Provider Physician Specialty: Family Practice Address: [facility] [facility], [address], [place], [address] Email: [email or web address] Darien Retana MD Attending Provider Non-Staff Referring Provider Specialty: Neurology Address: [address] [facility], [place], [address] Email: Speech-Language Pathology Evaluation/Summary Protocol: Document 02/13/20 18:25 ILDA (Rec: 02/13/20 18:26 ILDA [email or web address]) Speech Pathology Treatment Note Session Time Visit Start Time 16:30 Visit Stop Time 17:15 Total Visit Minutes 45 Visit Information Visit Number 3 Plan of Care Dates 02/13/20 - 05/15/20 Insurance Information [facility] Setting Treatment Setting Outpatient Care Visit Type Note Type Re-Evaluation Next Note Type Next Note Type Treatment Note General Information General Information Jonnie is a 39-yr-old male who is familiar to this clinician from previous outpatient Speech Therapy targeting dysphagia and dysarthria. 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 Jonnie was being seen in Speech Therapy in the fall of 2018 but stopped attending. He has been hospitalized at [facility] since 09/17/19, including for aspiration pneumonia. He underwent MBSS on 09/28/19, which revealed significant silent penetration and aspiration. He was recommended dysphagia mechanical texture, NTL, and continued dysphagia therapy. He was seen by his Neurologist, Dr. Darien Retana, on 07/27/19, prior to hospitalizations, who also recommended continued Speech Therapy for dysarthria. Outpatient intervention was disrupted d/t . During that disruption, Jonnie was hospitalized (01/17/20 - 01/23) for SOB and respiratory failure requiring ventilation. After extubation, this PAYROLL PROCESSOR performed a swallow evaluation , which revealed baseline swallow function. Diet recommendation included mechanical soft texture, thin liquids with general aspiration precautions. Subjective Observations/Patient Presentation Jonnie returns to outpatient therapy today with reopening of the clinic. He arrived on time unaccompanied. He reported feeling much better and has not been sick again since his hospital stay. He denied changes in swallow and expressed his greatest concern was to improve his speech intelligibility. He reported still having written instructions for oral motor exercises provided earlier in this treatment course and said he does the exercises here and there. Chief Complaint(s) Speech Additional Areas of Concern Swallow Rehab Expectation/Goals: Patient Goals Improve speech clarity and breath support for speech Patient Knowledge/Awareness of PAYROLL PROCESSOR Role Excellent in Treatment Patient/Caregiver Compliance with Home Fair Exercise Program Objective Short Term Goals 1. The pt will perform oral motor exercises with mild- moderate cues as needed to increase strength and coordination of articulators to improve speech intelligibility. 2. The pt will demonstrate understanding of compensatory speech strategies to increase his ability to communicate with others effectively. 3. The pt will use compensatory swallow strategies as needed with minimal cues to maintain highest level of swallow safety. Skates Operator Goals 1. The pt will perform oral motor and respiratory exercises with min cues to improve speech intelligibility . 2. The pt will use compensatory speech strategies independently in 80% of opportunities to improve his ability to communicate wants/ needs/ideas independently in his functional environment. 3. The pt will tolerate least restrictive diet to meet his nutrition and hydration needs. Treatment Activities Collected updated case history from pt and medical records. Evaluated breath support for speech. Pt able to produce 3-5 words on single breath in conversation and reading tasks . Speech intelligibility 85% secondary to reduced breath support for speech resulting in trailing off at ends of sentences, inconsistent precision of articulation, and presence of hypernasal resonance which distorts phonemes. Assessed velopharyngeal strength and ROM using straw blowing and phonation into water. Pt was able to make bubbles in water with breath only; unable to maintain bubbles with onset of phonation, with and without pinch-closing of nares. During vowel phonation, pt's breath was observed through nares with use of mirror. Minimal to no elevation of soft palate was observed in visual exam upon ah phonation. Reviewed oral motor exercises recommended earlier in treatment course. Pt able to perform all with verbal/ written instruction. Limited strength and ROM of oral musculature observed. Trained pt in blowing and phonation exercises to improve velopharyngeal closure necessary to reduce hypernasality and improve speech intelligibility. Pt returned demonstration and verbalized understanding written instructions provided for home practice. Pt also verbalized understanding that daily home practice is necessary for improvement of skills. Assessment Patient Response to Treatment Fair Rehab Potential Fair Impairments Identified Dysarthria,Dysphagia,Oral Motor,Speech Intelligibility Assessment of Overall Progress Unchanged Assessment of Improvement The pt continues with reduced speech intelligibility secondary to weakened oral musculature and limited breath support for speech. Hypernasality secondary to reduced velopharyngeal elevation significantly contributes to reduced speech intelligibility, as well as impacting breath support for speech. Continued skilled intervention is medically necessary to improve function and increase intelligibility for the pt to improve communcation abilities necessary and maintain current level of independence. Reviewed with Patient Goals,Progress Being Made,Home Exercise Program Patient/Caregiver Understanding Good Plan Amount of Therapy Recommended 2-3 Months Frequency of Treatment Once a Week Length of Session 45 Minutes Therapeutic Contents Client Education,Home Exercise Program,Intelligibility,Oral Motor Training,Swallowing/ Feeding Provided Patient/Caregiver Instruction Home Exercise Program,Plan of Care,Questions/Concerns Therapy Recommendations Continue with Current Program
--- NOTE | 2020-02-20 17:59 | ST.OPTN ---
Visit Care Team Role Provider Type Nargis Fernandez DO Primary Care Provider Physician Address: [facility] [facility], [place], [address], [place], [address] Darien Retana MD Attending Provider Non-Staff Referring Provider Address: [address] , [place], [address] MATERIALS PLANNING ANALYST Treatment Note MATERIALS PLANNING ANALYST Treatment Note Start: 11/27/19 17:02 Freq: Status: Active Protocol: Document 02/20/20 17:47 ILDA (Rec: 02/20/20 17:59 ILDA [email or web address]) Speech Pathology Treatment Note Session Time Visit Start Time 16:30 Visit Stop Time 17:15 Total Visit Minutes 45 Visit Information Visit Number 4 Plan of Care Dates 02/13/20 - 05/15/20 Insurance Information [facility] Setting Treatment Setting Outpatient Care Visit Type Note Type Re-Evaluation Next Note Type Next Note Type Treatment Note General Information General Information Jonnie is a 39-yr-old male who is familiar to this clinician from previous outpatient Speech Therapy targeting dysphagia and dysarthria. 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 Jonnie was being seen in Speech Therapy in the fall of 2018 but stopped attending. He has been hospitalized at [facility] since 09/17/19, including for aspiration pneumonia. He underwent MBSS on 09/28/19, which revealed significant silent penetration and aspiration. He was recommended dysphagia mechanical texture, NTL, and continued dysphagia therapy. He was seen by his Neurologist, Dr. Darien Retana, on 07/27/19, prior to hospitalizations, who also recommended continued Speech Therapy for dysarthria. Outpatient intervention was disrupted d/t . During that disruption, Jonnie was hospitalized (01/17/20 - 01/23) for SOB and respiratory failure requiring ventilation. After extubation, this MATERIALS PLANNING ANALYST performed a swallow evaluation , which revealed baseline swallow function. Diet recommendation included mechanical soft texture, thin liquids with general aspiration precautions. Subjective Observations/Patient Presentation The pt arrived on time. No new complaints. Chief Complaint(s) Speech,Swallowing Additional Areas of Concern Swallow Rehab Expectation/Goals: Patient Goals Improve speech clarity and breath support for speech Patient Knowledge/Awareness of MATERIALS PLANNING ANALYST Role Excellent in Treatment Patient/Caregiver Compliance with Home Fair Exercise Program Objective Short Term Goals 1. The pt will perform oral motor exercises with mild- moderate cues as needed to increase strength and coordination of articulators to improve speech intelligibility. 2. The pt will demonstrate understanding of compensatory speech strategies to increase his ability to communicate with others effectively. 3. The pt will use compensatory swallow strategies as needed with minimal cues to maintain highest level of swallow safety. Fpc Goals 1. The pt will perform oral motor and respiratory exercises with min cues to improve speech intelligibility . 2. The pt will use compensatory speech strategies independently in 80% of opportunities to improve his ability to communicate wants/ needs/ideas independently in his functional environment. 3. The pt will tolerate least restrictive diet to meet his nutrition and hydration needs. Treatment Activities At start of session, the pt's voice was perceived to be very wet/gurgly. He independently attempted to clear his throat but was unable to produce sufficient power to effectively clear his airway. Dysphagia: Trained pt in staccato vowel production to increase VF closure necessary for protective cough production. The pt produced target productions with crisp vocal onset in 55% of attempts, improving with practice. Following this task, the pt's voice was clearer. Trained pt in use of staccato vowel production followed by hard swallow as alternative to cough for airway protection. Pt performed x3, demonstrating understanding. Speech Intelligibility: Continued training in velopharyngeal closure exercises. Humming through a straw placed in water, the pt was able to displace the water breifely in 2/8 attempts. Given a whistle and instructions to take a deep breath and blow hard, the pt was able to produce whistle in 2/10 attempts. Whistles were short in duration but perceivable. Instructions for exercises were provided in writing and the pt was given whistle for home practice. Assessment Patient Response to Treatment Fair Rehab Potential Fair Impairments Identified Dysarthria,Dysphagia,Oral Motor,Speech Intelligibility Assessment of Overall Progress Unchanged Assessment of Improvement The pt exhibits severe weakness of oral and respiratory musculature resulting in hypernasal resonance which distorts phonemes, reduced efficiency of breath for speech, and reduces speech intelligibility . Wet vocal quality indicates reduced airway protection, and the pt has insufficient strength to produce protective cough or throat clearing. Some, though minimal, progress was made with intraoral pressure and ECHO TECH strengthening. Prognosis for significant improvement in oral and respiratory strength necessary for clear speech and airway protection is guarded. Reviewed with Patient Goals,Progress Being Made,Home Exercise Program Patient/Caregiver Understanding Good Plan Amount of Therapy Recommended 2-3 Months Frequency of Treatment Once a Week Length of Session 45 Minutes Therapeutic Contents Client Education,Home Exercise Program,Intelligibility,Oral Motor Training,Swallowing/ Feeding Provided Patient/Caregiver Instruction Home Exercise Program,Plan of Care,Questions/Concerns Therapy Recommendations Continue with Current Program
--- NOTE | 2020-02-27 16:58 | ST.OPTN ---
Visit Care Team Role Provider Type Nargis Fernandez DO Primary Care Provider Physician Address: [facility], [address], [place], [address] Darien Retana MD Attending Provider Non-Staff Referring Provider Address: [address] , [place], [address] FERTILIZER SUPERVISOR Treatment Note FERTILIZER SUPERVISOR Treatment Note Start: 11/27/19 17:02 Freq: Status: Active Protocol: Document 02/27/20 16:46 ILDA (Rec: 02/27/20 16:57 ILDA [email or web address]) Speech Pathology Treatment Note Session Time Visit Start Time 14:30 Visit Stop Time 15:15 Total Visit Minutes 45 Visit Information Visit Number 5 Plan of Care Dates 02/13/20 - 05/15/20 Insurance Information [facility] Setting Treatment Setting Outpatient Care Visit Type Note Type Re-Evaluation Next Note Type Next Note Type Treatment Note General Information General Information Jonnie is a 39-yr-old male who is familiar to this clinician from previous outpatient Speech Therapy targeting dysphagia and dysarthria. 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 Jonnie was being seen in Speech Therapy in the fall of 2018 but stopped attending. He has been hospitalized at [facility] since 09/17/19, including for aspiration pneumonia. He underwent MBSS on 09/28/19, which revealed significant silent penetration and aspiration. He was recommended dysphagia mechanical texture, NTL, and continued dysphagia therapy. He was seen by his Neurologist, Dr. Darien Retana, on 07/27/19, prior to hospitalizations, who also recommended continued Speech Therapy for dysarthria. Outpatient intervention was disrupted d/t . During that disruption, Jonnie was hospitalized (01/17/20 - 01/23) for SOB and respiratory failure requiring ventilation. After extubation, this FERTILIZER SUPERVISOR performed a swallow evaluation , which revealed baseline swallow function. Diet recommendation included mechanical soft texture, thin liquids with general aspiration precautions. Subjective Observations/Patient Presentation The pt arrived on time. No new complaints. Chief Complaint(s) Speech,Swallowing Additional Areas of Concern Swallow Rehab Expectation/Goals: Patient Goals Improve speech clarity and breath support for speech Patient Knowledge/Awareness of FERTILIZER SUPERVISOR Role Excellent in Treatment Patient/Caregiver Compliance with Home Fair Exercise Program Objective Short Term Goals 1. The pt will perform oral motor exercises with mild- moderate cues as needed to increase strength and coordination of articulators to improve speech intelligibility. 2. The pt will demonstrate understanding of compensatory speech strategies to increase his ability to communicate with others effectively. 3. The pt will use compensatory swallow strategies as needed with minimal cues to maintain highest level of swallow safety. Chcf Goals 1. The pt will perform oral motor and respiratory exercises with min cues to improve speech intelligibility . 2. The pt will use compensatory speech strategies independently in 80% of opportunities to improve his ability to communicate wants/ needs/ideas independently in his functional environment. 3. The pt will tolerate least restrictive diet to meet his nutrition and hydration needs. Treatment Activities To reduce hypernasality in order to improve breath support for speech and speech intelligibility, the pt performed exercises blowing bubbles into water via a straw , increasing duration of bubbles from 4 to 6 sec. Blowing through a whistle, the pt elicited a note in 2/5 attempts. Pt performed staccato ah with ~60% accuracy of crisp vowel onset, improved with instructions to hold breath for 1 sec and release with loud ah. Transitioned task to release with cough to improve pt's protective cough ability. Cough production was weak but mildly stronger than pt's independent volitional cough. Pt performed oral motor exercises with direct model and max v/v cues. He read words targeting /l/ and /t/ in all positions to improve lingual strength for increased speech intelligibility. Productions of /l/ were observed to resemble /w/ due to involvement of bottom lip. Training targeted relaxation of lip and intentional engagement of lingual tip, which improved speech intelligibility. Productions of /t/ in all positions were weak but discernible. Assessment Patient Response to Treatment Fair Rehab Potential Fair Impairments Identified Dysarthria,Dysphagia,Oral Motor,Speech Intelligibility Assessment of Overall Progress Unchanged Assessment of Improvement The pt continues with significantly weak oral and respiratory musculature negatively impacting his ability to produce greater than 4 words on a single breath and to produce protective cough. Speech intelligibility is impacted by this and by hypernasal resonance. The pt was able to increase ability to exhale from 4 to 6 sec and to produce sound through a whistle in 2 of 5 attempts, consistent with productions in last session. He was highly responsive to feedback and techniques to increase production and intelligibility of /l/ in isolation and all position of words. He remains ~80% intelligible in conversational speech. Reviewed with Patient Goals,Progress Being Made,Home Exercise Program Patient/Caregiver Understanding Good Plan Amount of Therapy Recommended 2-3 Months Frequency of Treatment Once a Week Length of Session 45 Minutes Therapeutic Contents Client Education,Home Exercise Program,Intelligibility,Oral Motor Training,Swallowing/ Feeding Provided Patient/Caregiver Instruction Home Exercise Program,Plan of Care,Questions/Concerns Therapy Recommendations Continue with Current Program
--- NOTE | 2020-03-10 15:42 | ST.OPTN ---
Visit Care Team Role Provider Type Nargis Fernandez DO Primary Care Provider Physician Address: [facility] [place], [address], [place], [address] Darien Retana MD Attending Provider Non-Staff Referring Provider Address: [address] , [place], [address] HADOOP INFRASTRUCTURE ARCHITECT Treatment Note HADOOP INFRASTRUCTURE ARCHITECT Treatment Note Start: 11/27/19 17:02 Freq: Status: Active Protocol: Document 03/05/20 13:43 ILDA (Rec: 03/10/20 14:07 ILDA [email or web address]) Speech Pathology Treatment Note Session Time Visit Start Time 14:30 Visit Stop Time 15:15 Total Visit Minutes 45 Visit Information Visit Number 6 Plan of Care Dates 02/13/20 - 05/15/20 Insurance Information [facility] Setting Treatment Setting Outpatient Care Visit Type Note Type Progress Note Next Note Type Next Note Type Treatment Note General Information General Information Jonnie is a 39-yr-old male who is familiar to this clinician from previous outpatient Speech Therapy targeting dysphagia and dysarthria. 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 Jonnie was being seen in Speech Therapy in the fall of 2018 but stopped attending. He has been hospitalized at [facility] since 09/17/19, including for aspiration pneumonia. He underwent MBSS on 09/28/19, which revealed significant silent penetration and aspiration. He was recommended dysphagia mechanical texture, NTL, and continued dysphagia therapy. He was seen by his Neurologist, Dr. Darien Retana, on 07/27/19, prior to hospitalizations, who also recommended continued Speech Therapy for dysarthria. Outpatient intervention was disrupted d/t . During that disruption, Jonnie was hospitalized (01/17/20 - 01/23) for SOB and respiratory failure requiring ventilation. After extubation, this HADOOP INFRASTRUCTURE ARCHITECT performed a swallow evaluation , which revealed baseline swallow function. Diet recommendation included mechanical soft texture, thin liquids with general aspiration precautions. Subjective Observations/Patient Presentation The pt arrived on time. No new complaints. Reported difficulty performing VPI exercises at home. Chief Complaint(s) Speech,Swallowing Additional Areas of Concern Swallow Rehab Expectation/Goals: Patient Goals Improve speech clarity and breath support for speech Patient Knowledge/Awareness of HADOOP INFRASTRUCTURE ARCHITECT Role Excellent in Treatment Patient/Caregiver Compliance with Home Fair Exercise Program Objective Short Term Goals 1. The pt will perform oral motor exercises with mild- moderate cues as needed to increase strength and coordination of articulators to improve speech intelligibility. 2. The pt will demonstrate understanding of compensatory speech strategies to increase his ability to communicate with others effectively. 3. The pt will use compensatory swallow strategies as needed with minimal cues to maintain highest level of swallow safety. Service Tester Goals 1. The pt will perform oral motor and respiratory exercises with min cues to improve speech intelligibility . 2. The pt will use compensatory speech strategies independently in 80% of opportunities to improve his ability to communicate wants/ needs/ideas independently in his functional environment. 3. The pt will tolerate least restrictive diet to meet his nutrition and hydration needs. Treatment Activities Speech: Assessed pt's progress in completing exercises to improve VPI. Pt able to blow bubbles into water through straw. Unable to produce bubbles with phonation added or to exert enough oral breath support to produce musical note through whistle. Skilled feedback provided including recommendation for hot dipper consultation for palatal obturator. Education on latter was provided with visual aids and discussion of purpose. The pt was agreeable to consultation. Referral is requested. Dysphagia: Assessed the pt's swallow function and safety with a variety of textures including pudding, diced fruit and soft cookie with thin liquid from straw. No overt s/ sx of aspiration were observed . The pt's voice remained clear throughout. Mild anterior spillage was noted occasionally, which the pt self-managed in most episodes with tissue wipes. Mastication and oral prep continue to be slowed with frequent mashing movements involved, which is the pt's baseline. No significant oral residue was observed. The pt reported no problems with swallowing outside of clinical trials. 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 Speech intelligibility is impacted by inadequate breath support and by hypernasal resonance. Unit Control Clerk consultation and assessment for palatal obturator is strongly recommended to treat VPI and promote the pt's opportunity for improved speech intelligibility by reducing hypernasality and nasal loss of breath required for speech. Minimal response to oral motor exercises has been made. The pt continues to use exaggerated speech strategies to increase intelligibility, which remains at ~85% to this familiar listener and estimated at ~60% intelligible to unfamiliar listeners. The pt exhibits with swallow function consistent with baseline function. No modification to diet is warranted at this time. The pt tends to prefer soft foods for ease of mastication, which is recommended. Reviewed with Patient Goals,Progress Being Made,Home Exercise Program Patient/Caregiver Understanding Good Plan Comment Hold until hot dipper consultation. Therapeutic Contents Client Education,Home Exercise Program,Intelligibility,Oral Motor Training,Swallowing/ Feeding Provided Patient/Caregiver Instruction Home Exercise Program,Plan of Care,Questions/Concerns Therapy Recommendations Continue with Current Program
--- NOTE | 2020-03-10 16:23 | ST.OPTN ---
Visit Care Team Role Provider Type Nargis Fernandez DO Primary Care Provider Physician Address: [facility], [address], [place], [address] Darien Retana MD Attending Provider Non-Staff Referring Provider Address: [address] , [place], [address] LICENSED PHYSICAL THERAPY ASSISTANT Treatment Note LICENSED PHYSICAL THERAPY ASSISTANT Treatment Note Start: 11/27/19 17:02 Freq: Status: Active Protocol: Document 03/05/20 13:43 ILDA (Rec: 03/10/20 14:07 ILDA [email or web address]) Speech Pathology Treatment Note Session Time Visit Start Time 14:30 Visit Stop Time 15:15 Total Visit Minutes 45 Visit Information Visit Number 6 Plan of Care Dates 02/13/20 - 05/15/20 Insurance Information [facility] Setting Treatment Setting Outpatient Care Visit Type Note Type Progress Note Next Note Type Next Note Type Treatment Note General Information General Information Jonnie is a 39-yr-old male who is familiar to this clinician from previous outpatient Speech Therapy targeting dysphagia and dysarthria. 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 Jonnie was being seen in Speech Therapy in the fall of 2018 but stopped attending. He has been hospitalized at [facility] since 09/17/19, including for aspiration pneumonia. He underwent MBSS on 09/28/19, which revealed significant silent penetration and aspiration. He was recommended dysphagia mechanical texture, NTL, and continued dysphagia therapy. He was seen by his Neurologist, Dr. Darien Retana, on 07/27/19, prior to hospitalizations, who also recommended continued Speech Therapy for dysarthria. Outpatient intervention was disrupted d/t . During that disruption, Jonnie was hospitalized (01/17/20 - 01/23) for SOB and respiratory failure requiring ventilation. After extubation, this LICENSED PHYSICAL THERAPY ASSISTANT performed a swallow evaluation , which revealed baseline swallow function. Diet recommendation included mechanical soft texture, thin liquids with general aspiration precautions. Subjective Observations/Patient Presentation The pt arrived on time. No new complaints. Reported difficulty performing VPI exercises at home. Chief Complaint(s) Speech,Swallowing Additional Areas of Concern Swallow Rehab Expectation/Goals: Patient Goals Improve speech clarity and breath support for speech Patient Knowledge/Awareness of LICENSED PHYSICAL THERAPY ASSISTANT Role Excellent in Treatment Patient/Caregiver Compliance with Home Fair Exercise Program Objective Short Term Goals 1. The pt will perform oral motor exercises with mild- moderate cues as needed to increase strength and coordination of articulators to improve speech intelligibility. 2. The pt will demonstrate understanding of compensatory speech strategies to increase his ability to communicate with others effectively. 3. The pt will use compensatory swallow strategies as needed with minimal cues to maintain highest level of swallow safety. Pilot Plant Operator Goals 1. The pt will perform oral motor and respiratory exercises with min cues to improve speech intelligibility . 2. The pt will use compensatory speech strategies independently in 80% of opportunities to improve his ability to communicate wants/ needs/ideas independently in his functional environment. 3. The pt will tolerate least restrictive diet to meet his nutrition and hydration needs. Treatment Activities Speech: Assessed pt's progress in completing exercises to improve VPI. Pt able to blow bubbles into water through straw. Unable to produce bubbles with phonation added or to exert enough oral breath support to produce musical note through whistle. Skilled feedback provided including recommendation for lean manager consultation for palatal obturator. Education on latter was provided with visual aids and discussion of purpose. The pt was agreeable to consultation. Referral is requested. Dysphagia: Assessed the pt's swallow function and safety with a variety of textures including pudding, diced fruit and soft cookie with thin liquid from straw. No overt s/ sx of aspiration were observed . The pt's voice remained clear throughout. Mild anterior spillage was noted occasionally, which the pt self-managed in most episodes with tissue wipes. Mastication and oral prep continue to be slowed with frequent mashing movements involved, which is the pt's baseline. No significant oral residue was observed. The pt reported no problems with swallowing outside of clinical trials. 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 Speech intelligibility is impacted by inadequate breath support and by hypernasal resonance. Manager Respiratory consultation and assessment for palatal obturator is strongly recommended to treat VPI and promote the pt's opportunity for improved speech intelligibility by reducing hypernasality and nasal loss of breath required for speech. Minimal response to oral motor exercises has been made. The pt continues to use exaggerated speech strategies to increase intelligibility, which remains at ~85% to this familiar listener and estimated at ~60% intelligible to unfamiliar listeners. Recommend holding skilled intervention until prosthetic is in place, at which time re- evaluation is advised with POC modified accordingly. The pt exhibits with swallow function consistent with baseline function. No modification to diet is warranted at this time. The pt tends to prefer soft foods for ease of mastication, which is recommended. Reviewed with Patient Goals,Progress Being Made,Home Exercise Program Patient/Caregiver Understanding Good Plan Comment Hold until lean manager consultation/placement. Therapeutic Contents Client Education,Home Exercise Program,Intelligibility,Oral Motor Training,Swallowing/ Feeding Provided Patient/Caregiver Instruction Home Exercise Program,Plan of Care,Questions/Concerns Therapy Recommendations Continue with Current Program
--- NOTE | 2020-04-10 14:50 | ST.OPTN ---
Visit Care Team Role Provider Type Nargis Fernandez DO Primary Care Provider Physician Address: [facility] [facility], [address], [place], [address] Darien Retana MD Attending Provider Non-Staff Referring Provider Address: [address] [facility], [place], [address] CHANGE MANAGEMENT CONSULTANT Treatment Note CHANGE MANAGEMENT CONSULTANT Treatment Note Start: 11/27/19 17:02 Freq: Status: Active Protocol: Document 04/10/20 14:46 ILDA (Rec: 04/10/20 14:50 ILDA [email or web address]) Speech Pathology Treatment Note Subjective Observations/Patient Presentation Received phone call from pt's mother, Marianela, on 04/09/20 stating that she and Jonnie were referred to [facility] and, upon arrival at their appt, were told the clinic did not know why he was there. Marianela requested that I contact Dr. Cyn Hyman to discuss the case and inform of request/ rational for a palatal obturator. I called that day to speak with Dr. Hyman who was not available at the time. I offered to send a copy of my last treatment note. Because the clinic's fax machine was not working, the dietary internship (Abran) asked to send it via email. Treatment note was sent today via secure email.
--- NOTE | 2020-05-06 11:32 | ST.OPTN ---
Visit Care Team Role Provider Type Nargis Fernandez DO Primary Care Provider Physician Address: [facility] [facility], [address], [place], [address] Darien Retana MD Attending Provider Non-Staff Referring Provider Address: [address] [place], [address] SPACE CONTROL AGENT Treatment Note SPACE CONTROL AGENT Treatment Note Start: 11/27/19 17:02 Freq: Status: Active Protocol: Document 05/06/20 11:28 ILDA (Rec: 05/06/20 11:31 ILDA [email or web address]) Speech Pathology Treatment Note Visit Type Note Type Administrative Note Subjective Observations/Patient Presentation Email correspondence made with Dr. Cyn Chowdhury at [facility] RE development of palatal lift for the patient. Called pt's mother, Marianela, and informed her of communication and updated status. Will follow up with pt after palatal lift is made and in place.
--- NOTE | 2020-06-24 14:34 | ST.OPDS ---
Visit Care Team Role Provider Type Nargis Fernandez DO Primary Care Provider Physician Address: [facility] [facility], [address], [place], [address] Darien Retana MD Attending Provider Non-Staff Referring Provider Address: [address] , [place], [address] PEDIATRIC MEDICAL ASSISTANT Treatment Note PEDIATRIC MEDICAL ASSISTANT Treatment Note Start: 11/27/19 17:02 Freq: Status: Active Protocol: Document 06/24/20 14:32 ILDA (Rec: 06/24/20 14:34 ILDA [email or web address]) Speech Pathology Treatment Note Visit Information Plan of Care Dates 02/13/20 - 05/15/20 Insurance Information [facility] Setting Treatment Setting Outpatient Care Visit Type Note Type Discharge Summary General Information General Information Jonnie is a 39-yr-old male who is familiar to this clinician from previous outpatient Speech Therapy targeting dysphagia and dysarthria. 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 Jonnie was being seen in Speech Therapy in the fall of 2018 but stopped attending. He has been hospitalized at [facility] since 09/17/19, including for aspiration pneumonia. He underwent MBSS on 09/28/19, which revealed significant silent penetration and aspiration. He was recommended dysphagia mechanical texture, NTL, and continued dysphagia therapy. He was seen by his Neurologist, Dr. Darien Retana, on 07/27/19, prior to hospitalizations, who also recommended continued Speech Therapy for dysarthria. Outpatient intervention was disrupted d/t . During that disruption, Jonnie was hospitalized (01/17/20 - 01/23) for SOB and respiratory failure requiring ventilation. After extubation, this PEDIATRIC MEDICAL ASSISTANT performed a swallow evaluation , which revealed baseline swallow function. Diet recommendation included mechanical soft texture, thin liquids with general aspiration precautions. Subjective Observations/Patient Presentation The pt was last seen 03/05/20 at which time he was referred to premium cancellation clerk in [place] for assessment of benefit with velopharyngeal lift. The pt has exhausted speech therapy benefits and will be discharged at this time. Chief Complaint(s) Speech,Swallowing Objective Short Term Goals 1. The pt will perform oral motor exercises with mild- moderate cues as needed to increase strength and coordination of articulators to improve speech intelligibility. 2. The pt will demonstrate understanding of compensatory speech strategies to increase his ability to communicate with others effectively. 3. The pt will use compensatory swallow strategies as needed with minimal cues to maintain highest level of swallow safety. Intermediate Goals 1. The pt will perform oral motor and respiratory exercises with min cues to improve speech intelligibility . 2. The pt will use compensatory speech strategies independently in 80% of opportunities to improve his ability to communicate wants/ needs/ideas independently in his functional environment. 3. The pt will tolerate least restrictive diet to meet his nutrition and hydration needs. Plan Therapy Recommendations Discharge from Speech Therapy
== END 2020-07-07 09:17 ==
LOC: SP 14:30
PROVIDERS: PCP Family Medicine; Referring Provider Psychiatry & Neurology Neurology; Visit Provider Psychiatry & Neurology Neurology
DX: R47.1 Dysarthria and anarthria (principal)
CPT/HCPCS: 92507; 92522; 92526; 92610

== ENCOUNTER 2020-03-13 21:28 | Emergency (ER) | payer MEDICAID, OTHER, SELFPAY ==
[2020-01-18 05:28] VITALS: BMI 23.4
[2020-01-21 09:10] VITALS: PULSE 63; RESP 18; O2SAT 100
[2020-03-13 21:48] VITALS: BP 117/87; PULSE 102; RESP 16; TEMP 36.7; O2SAT 94
--- NOTE | 2020-03-13 21:56 | ED_ITS ---
HPI - General Adult General Chief complaint: Upper Respiratory Symptoms Stated complaint: sore throat,SOB, congested Time Seen by Provider: 03/13/20 21:50 Source: patient Mode of arrival: Wheelchair Limitations: no limitations History of Present Illness HPI narrative: Patient is a 39-year-old male with known neurologic deficits. Here for evaluation of increased phlegm production and a sore throat and pain with swallowing. Symptoms been going on for the past 1-2 days. No fevers. Reason that the patient is here is because approximately 4-6 weeks ago he was seen here in the emergency department after having episodes that started very similar to this. During his last visit here in the ER he was intubated for increased swelling and his vocal cord area. Patient's mother who is at bedside states that they are uncertain as to what caused the patient's symptoms however after being intubated for couple days patient was sent home with steroids and antibiotics. Has not had any issues since then until approximately 2 days ago. Has not tried anything for symptoms prior to arrival. Here because he states that this is how his last event started. Related Data Home Medications Medication Instructions Recorded Confirmed latanoprost 1 drp EYE-BOTH BEDTIME 09/18/18 01/18/20 Previous Rx's Medication Instructions Recorded Battery Powered Lift #1 ea 03/02/18 Power Chair #1 ea 10/16/18 Semi-electric hospital bed #1 ea 11/17/18 Disabled Parking #1 each 01/15/19 Shower Chair #1 ea 07/04/19 doxycycline hyclate 100 mg PO BID #10 cap 01/21/20 sertraline 100 mg tablet 100 mg PO DAILY #90 tab 01/22/20 menthol 0.44 %-zinc oxide 20.6 % 1 applictn TOP QID PRN #113 gram 01/28/20 topical ointment Allergies Allergy/AdvReac Type Severity Reaction Status Date / Time Penicillins [PENICILLINS] Allergy Severe RASH Verified 03/13/20 21:50 Review of Systems Constitutional Constitutional: Denies fatigue, Denies fever(s) and Denies headache(s) Eyes Eyes: Denies change in vision and Denies itchy eyes ENT Ears, Nose, Mouth, and Throat: Denies dental pain, Denies vertigo, Denies dizziness, Denies otalgia, Denies headache(s), Denies lip swelling, Denies mouth pain, Denies nasal congestion, Denies sinus pain, Denies sinus pressure, Reports sore throat, Denies throat swelling and Denies tongue swelling Cardiovascular Cardiovascular: Denies chest pain, Denies rapid heart rate and Denies dyspnea Respiratory Respiratory: Denies cough and Denies dyspnea Gastrointestinal Gastrointestinal: Denies abdominal pain, Denies change in bowel habits and Denies vomiting Genitourinary Genitourinary: Denies dysuria Genitourinary: Denies dysuria Musculoskeletal Musculoskeletal: Denies arthralgias and Denies myalgias Integumentary/Breasts Skin/Breast: Denies lesions and Denies rash Neurologic Neurologic: Denies behavioral changes, Denies vertigo, Denies dizziness and Denies headache(s) Psychiatric Psychiatric: Denies behavioral changes Endocrine Endocrine: Denies fatigue Hematologic/Lymphatic Hematologic/Lymphatic: Denies easy bleeding and Denies easy bruising Allergic/Immunologic Allergic/Immunologic: Denies urticaria, Denies itchy eyes, Denies lip swelling, Denies throat swelling and Denies tongue swelling Patient History Medical History Depression (Chronic) Dysarthria (Acute) Glioma (Chronic) Hemiparesis (Chronic ~1984) Pseudobulbar palsy (Acute) Surgical History Status post radiation therapy (Acute) Family History Mother No problems noted. Father No problems noted. Social History marital status: unmarried,single household members: family, caregiver and none Smoking Status: Former smoker alcohol intake: never substance use type: marijuana Smoking Status: Former smoker alcohol intake frequency: 0-2 drinks per day Substance Use Type: marijuana Exam Initial Vital Signs Initial Vital Signs: Vital Signs Temperature 98.1 F 03/13/20 21:48 Pulse Rate 102 H 03/13/20 21:48 Respiratory Rate 16 03/13/20 21:48 Blood Pressure 117/87 03/13/20 21:48 Pulse Oximetry 94 03/13/20 21:48 Const General: cooperative, comfortable and well developed Limitations: mental status not altered [facility] Head: normal to inspection and normocephalic Nose: external nose normal Face and sinus: normal facial exam Mouth: oral mucosae normal Teeth and gingiva: dentition normal Throat: posterior oropharynx normal Neck Lymphatic: No lymphadenopathy Resp Effort & Inspection: normal respiratory effort Auscultation: clear to auscultation bilaterally Cardio Rate: tachycardic Rhythm: regular rhythm Skin Lesions: no lesions Rashes: no rashes Neuro General: patient alert and patient awake Other: At his baseline. Extrem General: capillary refill normal Psych Appearance: well kempt Course Orders Ordered: ED Orders 03/13/20 22:18 XR chest 1V Stat XR soft tissue neck Stat Discontinued Medications Dexamethasone (Decadron) 12 mg PO NOW ONE Stop: 03/13/20 23:49 Last Admin: 03/13/20 23:55 Dose: 12 mg Documented by: AMARA Vital Signs Vital signs: Vital Signs - 8 hr 03/13/20 21:48 Temperature 98.1 F Pulse Rate 102 H Respiratory Rate 16 Blood Pressure 117/87 Pulse Oximetry 94 Medical Decision Making Imaging Data Chest x-ray: Radiologist's Impression: Small left pleural effusion, similar to prior imaging X-ray soft tissue neck: Radiologist's Impression: Limited lateral imaging secondary to patient position. Within limits of positioning normal radiographs of the neck MDM Narrative Medical decision making narrative: Patient has a normal exam. His x-rays show no signs of any acute pathology. A long discussion with the patient and his mother regarding his symptoms. We do acknowledge that this is very similar to the events that led to his intubation approximately 1 month ago. I did discuss with him regarding options to include doing nothing for right now and waiting to see if his symptoms worsen knowing that if they do worsen that he needs to return emergency department immediately verses doing more invasive procedures to include CT scans and lab work versus being admitted to the hospital for observation. Ever 1 expressed understanding of the risks of all of these options. After this discussion we did opt to discharge the patient home. He did expressed understanding that his symptoms started to worsen he should return to the emergency department and not wait. Did inform him that this could potentially lead to just stay evaluation and then discharge home. Dianna expressed understanding and agreement. Discharge Plan Departure Patient Disposition: Home Clinical Impression: Pharyngitis Qualifiers: Pharyngitis/tonsillitis etiology: unspecified etiology Qualified Code(s): J02.9 - Acute pharyngitis, unspecified Discharge Date/Time: 03/14/20 00:13 Instructions: Sore Throat Activity Restrictions/Additional Instructions: Continue all of your medications as directed. Contact your primary provider for follow-up. Please return to the emergency department for any new or worsening symptoms like we discussed Prescriptions: No Action (DME) Disabled Parking Qty: 1 RF: 0 Calmoseptine 0.44-20.6 % ointment 1 applictn TOP QID PRN (Reason: skin irritation) Qty: 113 RF: 0 (DME) Battery Powered Lift Qty: 1 RF: 0 (DME) Power Chair tall Qty: 1 RF: 0 (DME) Semi-electric hospital bed Qty: 1 RF: 0 (DME) Shower Chair Qty: 1 RF: 0 sertraline 100 mg tablet 100 mg PO DAILY Qty: 90 RF: 1 doxycycline hyclate 100 mg capsule 100 mg PO BID Qty: 10 RF: 0 latanoprost 0.005 % Drops 1 drp EYE-BOTH BEDTIME RF: 0 Referrals: Nargis Fernandez DO [Primary Care Provider] -
--- NOTE | 2020-03-13 22:18 | DI.RAD.S_ITS ---
PROCEDURE: XR SOFT TISSUE NECK INDICATIONS: Painful swallowing TECHNIQUE: 2 views of the neck were acquired. COMPARISON: [facility], , XR SOFT TISSUE NECK, 10/13/2018, 15:07. FINDINGS: Airway: The airway appears patent. Soft tissues: Prevertebral soft tissues are normal in thickness. The epiglottis and aryepiglottic folds appear normal. No soft tissue gas. Bones: No suspicious bony lesions. Visualized cervical spine is normally aligned. IMPRESSION: Within the limits of this examination secondary to patient positioning, no acute radiographic abnormality is identified. No significant discrepancy with the casino shift manager radiology preliminary report. Dictated by: Mane Abbott M.D. on 03/14/2020 at 7:47 Approved by: Mane Abbott M.D. on 03/14/2020 at 7:48
--- NOTE | 2020-03-13 22:18 | DI.RAD.S_ITS ---
PROCEDURE: XR CHEST 1V INDICATIONS: Shortness of breath TECHNIQUE: One view of the chest was acquired. COMPARISON: [facility], , XR CHEST 1V, 01/21/2020, 6:42. FINDINGS: Surgical changes and devices: None. Lungs and pleura: Lungs are clear. No pneumothorax. Minimal blunting of the left costophrenic angle. Mediastinum: The cardiomediastinal contours remain stable. Heart size is normal. . Bones and chest wall: No suspicious bony lesions. Overlying soft tissues appear unremarkable. IMPRESSION: Minimal blunting of the left costophrenic angle possibly representing a small pleural effusion. Otherwise, no acute cardiopulmonary abnormalities. No significant discrepancy with the office nurse radiology preliminary report. Dictated by: Mane Abbott M.D. on 03/14/2020 at 7:44 Approved by: Mane Abbott M.D. on 03/14/2020 at 7:46
[2020-03-13] MEDS: dexAMETHasone 4 MG TABLET 12 MG PO (23:55)
--- NOTE | 2020-03-14 00:05 | PC.NURSE ---
Mother reports noticing her son's eyes were not tracking at the same speed. States this happen when he was super sick last time. Notes that the neurologist stated this may be a normal thing that happens when he is sick. Patient tracks with both eyes, left eye slightly slower than right. Pt mentation at baseline. Mother states I am not overly concerned just realized it wasn't mentioned to the provider as I just noticed it
== END 2020-03-14 00:13 | disposition home or self-care (01) ==
PROVIDERS: Emergency Provider Emergency Medicine; Family Provider Family Medicine; PCP Family Medicine
DX: J02.9 Acute pharyngitis, unspecified (principal)
CPT/HCPCS: 70360; 71045; 99283; 99284

== ENCOUNTER → 2020-03-18 10:27 | Outpatient (CLI) | payer MEDICAID, OTHER, SELFPAY ==
[2020-01-18 05:28] VITALS: BMI 23.4
[2020-01-21 09:10] VITALS: PULSE 63; RESP 18; O2SAT 100
== END ==
PROVIDERS: Family Provider Family Medicine; PCP Family Medicine; Referring Provider Family Medicine; Visit Provider Family Medicine
DX: G81.91 Hemiplegia, unspecified affecting right dominant side (principal); R39.81 Functional urinary incontinence; L30.8 Other specified dermatitis
CPT/HCPCS: 99203; 99214

== ENCOUNTER → 2020-04-01 15:01 | Outpatient (CLI) | payer MEDICAID, OTHER, SELFPAY ==
[2020-01-18 05:28] VITALS: BMI 23.4
[2020-01-21 09:10] VITALS: PULSE 63; RESP 18; O2SAT 100
== END ==
PROVIDERS: Family Provider Family Medicine; PCP Family Medicine; Referring Provider Family Medicine; Visit Provider Family Medicine
DX: G81.91 Hemiplegia, unspecified affecting right dominant side (principal); R39.81 Functional urinary incontinence; L30.8 Other specified dermatitis
CPT/HCPCS: 99212; 99213

== ENCOUNTER 2020-09-02 14:44 | Emergency (ER) | payer MEDICAID, OTHER, SELFPAY ==
[2020-01-18 05:28] VITALS: BMI 23.4
[2020-01-21 09:10] VITALS: PULSE 63; RESP 18; O2SAT 100
--- NOTE | 2020-09-02 | DI.RAD.S_ITS ---
PROCEDURE: XR ABDOMEN 1V INDICATIONS: ABDOMINAL PAIN TECHNIQUE: One view of the abdomen acquired. COMPARISON: None. FINDINGS: Surgical changes and devices: None. Bowel: There are diffuse dilated small bowel loops measuring up to 3.7 cm. No definite transition point is seen. The colon appears relatively decompressed Soft tissues: No suspicious abdominal calcifications. Visualized solid organ contours appear normal in size. Bones: No suspicious bony lesions. IMPRESSION: Small bowel obstruction Dictated by: Karel Mathew M.D. on 09/02/2020 at 15:40 Approved by: Karel Mathew M.D. on 09/02/2020 at 15:42
[2020-09-02 15:01] VITALS: BMI 21.7
--- NOTE | 2020-09-02 15:06 | DI.RAD.S_ITS ---
PROCEDURE: XR CHEST 1V INDICATIONS: weakness, productive cough TECHNIQUE: One view of the chest was acquired. COMPARISON: [facility], CT, CT CHEST ABD PEL W CON, 01/17/2020, 23:36. [facility], CR, XR CHEST 1V, 03/13/2020, 22:15. FINDINGS: Surgical changes and devices: None. Lungs and pleura: Lungs are clear. Question of blunting of the left costophrenic angle which could be due to trace effusion. No pneumothorax. Mediastinum: Mediastinal contours appear normal. Heart size is normal. Bones and chest wall: No suspicious bony lesions. Overlying soft tissues appear unremarkable. IMPRESSION: No airspace opacity identified. Question of blunting of the left costophrenic angle which could be due to trace effusion. Dictated by: Florin Witt M.D. on 09/02/2020 at 14:35 Approved by: Florin Witt M.D. on 09/02/2020 at 14:41
--- NOTE | 2020-09-02 15:08 | ED.WEAKNESS ---
HPI - Weakness <RICHARD Fry - Last Filed: 09/02/20 20:44> General Chief complaint: Weakness Stated complaint: Hasn't Eaten Since Sat, Weak, Stomach Pain, Painfu Time Seen by Provider: 09/02/20 14:46 Source: patient Mode of arrival: Wheelchair Limitations: no limitations History of Present Illness HPI Narrative: The patient is a [age] year old male former smoker with history of glioma, wheelchair-bound who presents with his mother for chief complaint of generalized weakness. They state that he has not eaten since Tuesday or Tuesday, states that his abdomen hurts, but that he had explosive bowel movement this morning. Mother then states that could be related to the ice cream and egg nog that he ate last night. They state that is painful for him to swallow, but he states he can swallow well. They state he is having an increased cough with increased mucus production. The patient has been admitted at this facility for pneumonia in the past. He has also been intubated in this emergency department for throat infection. This point he and his mother deny any fevers, muscle aches or chills. Related Data Home Medications Medication Instructions Recorded Confirmed latanoprost 1 drp EYE-BOTH BEDTIME 09/18/18 01/18/20 Previous Rx's Medication Instructions Recorded Battery Powered Lift #1 ea 03/02/18 Power Chair #1 ea 10/16/18 Semi-electric hospital bed #1 ea 11/17/18 Disabled Parking #1 each 01/15/19 Shower Chair #1 ea 07/04/19 doxycycline hyclate 100 mg PO BID #10 cap 01/21/20 menthol 0.44 %-zinc oxide 20.6 % 1 applictn TOP QID PRN #113 gram 01/28/20 topical ointment baclofen 10 mg tablet 10 mg PO QID PRN #120 tab 06/06/20 sertraline 100 mg tablet 100 mg PO DAILY #90 tab 06/16/20 Allergies Allergy/AdvReac Type Severity Reaction Status Date / Time Penicillins [PENICILLINS] Allergy Severe RASH Verified 09/02/20 15:02 Review of Systems <RICHARD Fry - Last Filed: 09/02/20 20:44> Review of Systems Narrative: GENERAL: Denies chills, fatigue, malaise, fever, sweats. HEENT: Denies sinus pain, ear pain, sore throat, difficulty swallowing, dizziness. RESPIRATORY: Denies dyspnea, cough, wheezing, hemoptysis, sputum. CARDIOVASCULAR: Denies chest pain, palpitations, orthopnea, edema, GASTROINTESTINAL: See HPI : Denies dysuria, frequency, incontinence, hematuria, urinary retention. MUSCULOSKELETAL: denies weakness, joint pain, or bony pain SKIN: Denies rash, skin lesions, or other NEUROLOGIC: Denies weakness, headache, numbness, change in speech, confusion, seizures, incoordination. PSYCHIATRIC: No concerning psychosocial issues. 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 Father No problems noted. Social History marital status: unmarried,single household members: family, caregiver and none Smoking Status: Former smoker alcohol intake: never substance use type: marijuana Smoking Status: Former smoker alcohol intake frequency: 0-2 drinks per day Substance Use Type: marijuana Exam <RICHARD Fry - Last Filed: 09/02/20 20:44> Narrative Exam Narrative: GENERAL: This is a well-nourished, well-developed patient, in mild distress. HEAD: Atraumatic. Normocephalic. No temporal or scalp tenderness. EYES: Pupils equal round and reactive. Extraocular motions intact. No scleral icterus. No injection or drainage. ENT: Nose without bleeding, purulent drainage or septal hematoma. Dry mouth noted. Uvula midline. Airway patent. NECK: Trachea midline. No JVD or lymphadenopathy. Supple, nontender, no meningeal signs. CARDIOVASCULAR: Regular rate and rhythm RESPIRATORY: Coarse bilaterally to auscultation. Breath sounds equal bilaterally. No wheezes, rales, or rhonchi. No cough. No increased respiratory effort. No accessory muscle use. GASTROINTESTINAL: Abdomen soft, diffusely tender to palpation, right lower quadrant tenderness to palpation, active bowel sounds all 4 quadrants EXTREMITIES: Right-sided hemiparesis normal for patient BACK: Nontender without deformity or crepitance. No flank tenderness. NEURO: Alert, interactive, right-sided hemiparesis noted per patient SKIN: No rash or erythema on visible skin Initial Vital Signs Initial Vital Signs: Vital Signs Temperature 98.0 F 09/02/20 15:25 Pulse Rate 100 H 09/02/20 15:25 Respiratory Rate 16 09/02/20 15:25 Blood Pressure 111/87 09/02/20 15:25 Pulse Oximetry 98 09/02/20 15:25 <Norman Perrin DO - Last Filed: 09/02/20 20:48> Initial Vital Signs Initial Vital Signs: Vital Signs Temperature 98.0 F 09/02/20 15:25 Pulse Rate 100 H 09/02/20 15:25 Respiratory Rate 16 09/02/20 15:25 Blood Pressure 111/87 09/02/20 15:25 Pulse Oximetry 98 09/02/20 15:25 Course <RICHARD Fry - Last Filed: 09/02/20 20:44> Orders Ordered: ED Orders 09/02/20 15:06 XR chest 1V Stat 09/02/20 15:25 RT Consult Eval and Treat NOW 09/02/20 15:36 COVID19 Stat 09/02/20 16:03 Complete Blood Count AUTO DIFF Stat Comprehensive Metabolic Panel Stat Lactate (Lactic Acid) Stat Magnesium Stat Procalcitonin Stat 09/02/20 16:33 CT abdomen pelvis w con Stat 09/02/20 16:36 Blood Culture Stat 09/02/20 16:40 Throat Culture Stat 09/02/20 18:27 Urine Microscopic Stat Discontinued Medications Sodium Chloride (Normal Saline 0.9%) 1,000 mls @ 1,000 mls/hr IV BOLUS ONE Stop: 09/02/20 17:32 Last Infusion: 09/02/20 19:31 Dose: 0 mls/hr Documented by: Admin: 09/02/20 16:57 Dose: 1,000 mls/hr Documented by: ELAYNE Piperacillin/Tazobactam/Dextrose (Zosyn) 3.375 gm in 50 mls @ 100 mls/hr IV NOW ONE Stop: 09/02/20 18:13 Last Infusion: 09/02/20 18:32 Dose: 0 mls/hr Documented by: Admin: 09/02/20 17:49 Dose: 100 mls/hr Documented by: ELAYNE Ondansetron HCl (Ondansetron 4 Mg/2 Ml Inj) 4 mg IV NOW ONE Stop: 09/02/20 16:45 Last Admin: 09/02/20 16:58 Dose: 4 mg Documented by: ELAYNE Vital Signs Vital signs: Vital Signs - 8 hr 09/02/20 15:25 09/02/20 18:40 Temperature 98.0 F Pulse Rate 100 H 89 Respiratory Rate 16 16 Blood Pressure 111/87 115/71 Pulse Oximetry 98 99 <Norman Perrin DO - Last Filed: 09/02/20 20:48> Orders Ordered: ED Orders 09/02/20 15:06 XR chest 1V Stat 09/02/20 15:25 RT Consult Eval and Treat NOW 09/02/20 15:36 COVID19 Stat 09/02/20 16:03 Complete Blood Count AUTO DIFF Stat Comprehensive Metabolic Panel Stat Lactate (Lactic Acid) Stat Magnesium Stat Procalcitonin Stat 09/02/20 16:33 CT abdomen pelvis w con Stat 09/02/20 16:36 Blood Culture Stat 09/02/20 16:40 Throat Culture Stat 09/02/20 18:27 Urine Microscopic Stat Discontinued Medications Sodium Chloride (Normal Saline 0.9%) 1,000 mls @ 1,000 mls/hr IV BOLUS ONE Stop: 09/02/20 17:32 Last Infusion: 09/02/20 19:31 Dose: 0 mls/hr Documented by: Admin: 09/02/20 16:57 Dose: 1,000 mls/hr Documented by: ELAYNE Piperacillin/Tazobactam/Dextrose (Zosyn) 3.375 gm in 50 mls @ 100 mls/hr IV NOW ONE Stop: 09/02/20 18:13 Last Infusion: 09/02/20 18:32 Dose: 0 mls/hr Documented by: Admin: 09/02/20 17:49 Dose: 100 mls/hr Documented by: ELAYNE Ondansetron HCl (Ondansetron 4 Mg/2 Ml Inj) 4 mg IV NOW ONE Stop: 09/02/20 16:45 Last Admin: 09/02/20 16:58 Dose: 4 mg Documented by: ELAYNE Vital Signs Vital signs: Vital Signs - 8 hr 09/02/20 15:25 09/02/20 18:40 Temperature 98.0 F Pulse Rate 100 H 89 Respiratory Rate 16 16 Blood Pressure 111/87 115/71 Pulse Oximetry 98 99 MDM - Weakness <BRIT Fry- - Last Filed: 09/02/20 20:44> Lab Data Attestation: I reviewed the patient's lab results. Result diagrams: 09/02/20 16:03 09/02/20 16:03 Labs: Lab Results 09/02/20 09/02/20 09/02/20 Range/Units 15:36 16:03 16:03 WBC 20.7 H (4.5-11.0) X10^3/uL RBC 4.68 (4.5-5.9) X10^6/uL Hgb 13.0 L (13.5-17.5) g/dL Hct 38.7 L (41-53) % MCV 82.8 (80-100) fL MCH 27.8 (26-34) PG MCHC 33.5 (30-36) % RDW 15.0 H (11.6-14.8) % Plt Count 266 (150-400) X10^3/uL Neut % (Auto) 85.6 H (50-75) % Lymph % (Auto) 9.4 L (25-40) % [place] % (Auto) 4.0 (3-14) % Eos % (Auto) 0.7 L (2-4) % Baso % (Auto) 0.3 (0-2) % Neut # (Auto) 13743 H (0654-0829) /uL Lymph # (Auto) 1900 (6169-0872) /uL [place] # (Auto) 800 (0-900) /uL Eos # (Auto) 200 (0-450) /uL Baso # (Auto) 100 (0-100) /uL Sodium (137-145) mmol/L Potassium (3.4-5.1) mmol/L Chloride (98-107) mmol/L Carbon Dioxide (22-32) mmol/L BUN (9-20) mg/dL Creatinine (0.66-1.25) mg/dL Estimated GFR (>60) mL/min BUN/Creatinine Ratio (6-22) Glucose (70-100) mg/dL Lactate (0.7-2.1) mmol/L Calcium (8.4-10.2) mg/dL Magnesium (1.6-2.3) mg/dL Total Bilirubin (0.2-1.3) mg/dL AST (17-59) IU/L ALT (<50) IU/L Alkaline Phosphatase (38-126) U/L Total Protein (6.3-8.2) g/dL Albumin (3.5-5.0) g/dL Globulin (1.7-4.1) g/dL Albumin/Globulin Ratio (1.0-2.8) Procalcitonin 3.64 H (<0.5) ng/mL Urine RBC (0-5/HPF) Urine WBC (0-5/HPF) Ur Squamous Epith Cells (0-5/HPF) Urine Bacteria (None) Hyaline Casts (None) Urine Mucus (Negative) Ur Culture Indicated? COVID-19 PCR Negative (Negative) 09/02/20 09/02/20 09/02/20 Range/Units 16:03 16:03 18:27 WBC (4.5-11.0) X10^3/uL RBC (4.5-5.9) X10^6/uL Hgb (13.5-17.5) g/dL Hct (41-53) % MCV (80-100) fL MCH (26-34) PG MCHC (30-36) % RDW (11.6-14.8) % Plt Count (150-400) X10^3/uL Neut % (Auto) (50-75) % Lymph % (Auto) (25-40) % [place] % (Auto) (3-14) % Eos % (Auto) (2-4) % Baso % (Auto) (0-2) % Neut # (Auto) (1624-4583) /uL Lymph # (Auto) (4235-1658) /uL [place] # (Auto) (0-900) /uL Eos # (Auto) (0-450) /uL Baso # (Auto) (0-100) /uL Sodium 134 L (137-145) mmol/L Potassium 4.0 (3.4-5.1) mmol/L Chloride 104 (98-107) mmol/L Carbon Dioxide 22 (22-32) mmol/L BUN 12 (9-20) mg/dL Creatinine 0.46 L (0.66-1.25) mg/dL Estimated GFR > 60.0 (>60) mL/min BUN/Creatinine Ratio 26.1 H (6-22) Glucose 79 (70-100) mg/dL Lactate 1.4 (0.7-2.1) mmol/L Calcium 9.2 (8.4-10.2) mg/dL Magnesium 2.0 (1.6-2.3) mg/dL Total Bilirubin 1.0 (0.2-1.3) mg/dL AST 17 (17-59) IU/L ALT 9 (<50) IU/L Alkaline Phosphatase 110 (38-126) U/L Total Protein 6.8 (6.3-8.2) g/dL Albumin 3.8 (3.5-5.0) g/dL Globulin 3.0 (1.7-4.1) g/dL Albumin/Globulin Ratio 1.3 (1.0-2.8) Procalcitonin (<0.5) ng/mL Urine RBC 1-5/hpf (0-5/HPF) Urine WBC 0-1/hpf (0-5/HPF) Ur Squamous Epith Cells 0-1 /hpf (0-5/HPF) Urine Bacteria None seen (None) Hyaline Casts 1-5/lpf (None) Urine Mucus 1+ H (Negative) Ur Culture Indicated? Cult not indicated COVID-19 PCR (Negative) Point of Care Testing Rapid Strep A Negative Urine Dip Bedside Urine Glucose Negative Bedside Urine Bilirubin - Negative Bedside Urine Ketone +/- 5 Urine Specific [place] 1.010 Bedside Urine Occult Blood - Negative Bedside Urine pH 6 Bedside Urine Protein - Negative Bedside Urine Urobilinogen - Negative Bedside Urine Nitrite - Negative Imaging Data CT scan - abdomen/pelvis: Radiologist Impression: [address] [place] [id number] Scan ReportSigned Patient: Jonnie Christopher R#: [id number]: 1980Acct:[id number]/Sex: 40 / MDate of Service: 09/02/20Loc: EDAccession Number: [id number] Procedure: CT abdomen pelvis w con Ordering Provider: Wendie Hunt PROCEDURE: CT ABDOMEN PELVIS W CON INDICATIONS: sbo on xray TECHNIQUE: After the administration of intravenous contrast, 5 mm thick sections acquired from the diaphragm to the symphysis. 5 mm coronal and sagittal reformats were acquired. For radiation dose reduction, the following was used: automated exposure control, adjustment of mA and/or kV according to patient size. COMPARISON: [facility], CR, XR ABDOMEN 1V, 09/02/2020, 15:21. [facility], CT, CT CHEST ABD PEL W CON, 01/17/2020, 23:36. FINDINGS: Image quality: Excellent. ABDOMEN: Lung bases: There is moderate left pleural effusion. Left basilar atelectasis. Heart size is normal. Small hiatal hernia. Solid organs: Liver is normal in size and enhancement. Gallbladder contains gallstones . Biliary system is non dilated. Pancreas enhances normally. Spleen is normal in size and enhancement. No adrenal nodules. Kidneys demonstrate normal size and enhancement, without hydronephrosis. Peritoneum and bowel: Appendix is distended and demonstrates mild wall thickening and periappendiceal stranding. An appendicoliths is present. There is an air-fluid level in stomach. Small bowel loops are filled with fluid and appears mildly distended. Bowel loops demonstrate normal wall thickness and caliber. No free fluid or air. Nodes and vessels: No retroperitoneal or mesenteric adenopathy by size criteria. Aorta and inferior vena cava are normal in size. Miscellaneous: No ventral hernias. PELVIS: Genitourinary: Bladder wall thickness is normal. Miscellaneous: No inguinal hernias or adenopathy. Bones: No suspicious bony lesions. No vertebral body compression fractures. IMPRESSION: 1. Acute appendicitis. 2. Fluid-filled stomach and small intestine which is at the upper limit of normal in caliber. Mild concentric thickening is present in a loop of distal ileum, most likely secondary to direct spread of infection/inflammation. There is abundant colonic gas. No definitive transitional point. The findings most likely secondary to ileus but early small bowel obstruction cannot be excluded. 3. Cholelithiasis. 4. Small to moderate left pleural effusion and left basilar atelectasis. 5. Trace pericardial effusion. The result was discussed with Wendie Hunt. Dictated by: Garth Kaplan M.D. on 09/02/2020 at 17:12 Approved by: Garth Kaplan M.D. on 09/02/2020 at 17:36 Chest x-ray: Radiologist Impression: [address] [place] [id number] ReportSigned Patient: Jonnie Christopher JMR#: [id number]: 1980Acct:[id number]/Sex: 40 / MDate of Service: 09/02/20Loc: EDAccession Number: [id number] Procedure: XR chest 1V Ordering Provider: Wendie Hunt STEERSMAN- PROCEDURE: XR CHEST 1V INDICATIONS: weakness, productive cough TECHNIQUE: One view of the chest was acquired. COMPARISON: [facility], CT, CT CHEST ABD PEL W CON, 01/17/2020, 23:36. [facility], CR, XR CHEST 1V, 03/13/2020, 22:15. FINDINGS: Surgical changes and devices: None. Lungs and pleura: Lungs are clear. Question of blunting of the left costophrenic angle which could be due to trace effusion. No pneumothorax. Mediastinum: Mediastinal contours appear normal. Heart size is normal. Bones and chest wall: No suspicious bony lesions. Overlying soft tissues appear unremarkable. IMPRESSION: No airspace opacity identified. Question of blunting of the left costophrenic angle which could be due to trace effusion. Dictated by: Florin Witt M.D. on 09/02/2020 at 14:35 Approved by: Florin Witt M.D. 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 Patient's labs are concerning, with leukocytosis with a white count of 20, elevated procalcitonin. Given pain to palpation of abdomen, and lab work, CT abdomen pelvis was performed. He was found to have an acute appendicitis and a fluid-filled stomach and small intestines that could be a possible small-bowel obstruction. I spoke with surgery at 17:40, who stated to start the patient on Zosyn and he would speak with anesthesia. He requested that the patient be admitted to Medicine, so I spoke with Dr. Gupta who stated that he would rather the patient be admitted to surgery. I spoke with Dr. Sandy again who said that he would accept the patient if needed. He then called back stating that anesthesia was not comfortable sedating the patient due to his glioma history. I spoke with anesthesiologist at [facility], Dr Cises at 7:30 p.m., who stated that he was not comfortable performing anesthesia on the patient due to his glioma history, our lack of Neurology urine neuro surgery, our lack of ICU sanding machine tender. I spoke with Dr. Crum from [facility] who is happy to accept the patient if his anesthesiologist was comfortable sedating the patient. I spoke with [facility] anesthesia, expressing missing doses surgery request that he speak with [facility] anesthesiology. I then spoke with the [facility] anesthesiologist, and gave him [facility] anesthesia phone number. Female patient was getting IV fluids had received is Zosyn, was offered pain and nausea medications multiple times. He denied needs. Verified patient's acceptance with Dr. Crum from [facility] at 20:35. Patient to transfer [facility]. Discussed transfer with patient and mother. At this time patient is teary because he has been here for so long. He requested TV in his room, but denies any pain or nausea medications. He has received Zosyn. Patient to transfer [facility]. <Norman Perrin, DO - Last Filed: 09/02/20 20:48> Lab Data Labs: Lab Results 09/02/20 09/02/20 09/02/20 Range/Units 15:36 16:03 16:03 WBC 20.7 H (4.5-11.0) X10^3/uL RBC 4.68 (4.5-5.9) X10^6/uL Hgb 13.0 L (13.5-17.5) g/dL Hct 38.7 L (41-53) % MCV 82.8 (80-100) fL MCH 27.8 (26-34) PG MCHC 33.5 (30-36) % RDW 15.0 H (11.6-14.8) % Plt Count 266 (150-400) X10^3/uL Neut % (Auto) 85.6 H (50-75) % Lymph % (Auto) 9.4 L (25-40) % [place] % (Auto) 4.0 (3-14) % Eos % (Auto) 0.7 L (2-4) % Baso % (Auto) 0.3 (0-2) % Neut # (Auto) 60388 H (4960-5037) /uL Lymph # (Auto) 1900 (5346-3602) /uL [place] # (Auto) 800 (0-900) /uL Eos # (Auto) 200 (0-450) /uL Baso # (Auto) 100 (0-100) /uL Sodium (137-145) mmol/L Potassium (3.4-5.1) mmol/L Chloride (98-107) mmol/L Carbon Dioxide (22-32) mmol/L BUN (9-20) mg/dL Creatinine (0.66-1.25) mg/dL Estimated GFR (>60) mL/min BUN/Creatinine Ratio (6-22) Glucose (70-100) mg/dL Lactate (0.7-2.1) mmol/L Calcium (8.4-10.2) mg/dL Magnesium (1.6-2.3) mg/dL Total Bilirubin (0.2-1.3) mg/dL AST (17-59) IU/L ALT (<50) IU/L Alkaline Phosphatase (38-126) U/L Total Protein (6.3-8.2) g/dL Albumin (3.5-5.0) g/dL Globulin (1.7-4.1) g/dL Albumin/Globulin Ratio (1.0-2.8) Procalcitonin 3.64 H (<0.5) ng/mL Urine RBC (0-5/HPF) Urine WBC (0-5/HPF) Ur Squamous Epith Cells (0-5/HPF) Urine Bacteria (None) Hyaline Casts (None) Urine Mucus (Negative) Ur Culture Indicated? COVID-19 PCR Negative (Negative) 09/02/20 09/02/20 09/02/20 Range/Units 16:03 16:03 18:27 WBC (4.5-11.0) X10^3/uL RBC (4.5-5.9) X10^6/uL Hgb (13.5-17.5) g/dL Hct (41-53) % MCV (80-100) fL MCH (26-34) PG MCHC (30-36) % RDW (11.6-14.8) % Plt Count (150-400) X10^3/uL Neut % (Auto) (50-75) % Lymph % (Auto) (25-40) % [place] % (Auto) (3-14) % Eos % (Auto) (2-4) % Baso % (Auto) (0-2) % Neut # (Auto) (7265-1277) /uL Lymph # (Auto) (6012-5793) /uL [place] # (Auto) (0-900) /uL Eos # (Auto) (0-450) /uL Baso # (Auto) (0-100) /uL Sodium 134 L (137-145) mmol/L Potassium 4.0 (3.4-5.1) mmol/L Chloride 104 (98-107) mmol/L Carbon Dioxide 22 (22-32) mmol/L BUN 12 (9-20) mg/dL Creatinine 0.46 L (0.66-1.25) mg/dL Estimated GFR > 60.0 (>60) mL/min BUN/Creatinine Ratio 26.1 H (6-22) Glucose 79 (70-100) mg/dL Lactate 1.4 (0.7-2.1) mmol/L Calcium 9.2 (8.4-10.2) mg/dL Magnesium 2.0 (1.6-2.3) mg/dL Total Bilirubin 1.0 (0.2-1.3) mg/dL AST 17 (17-59) IU/L ALT 9 (<50) IU/L Alkaline Phosphatase 110 (38-126) U/L Total Protein 6.8 (6.3-8.2) g/dL Albumin 3.8 (3.5-5.0) g/dL Globulin 3.0 (1.7-4.1) g/dL Albumin/Globulin Ratio 1.3 (1.0-2.8) Procalcitonin (<0.5) ng/mL Urine RBC 1-5/hpf (0-5/HPF) Urine WBC 0-1/hpf (0-5/HPF) Ur Squamous Epith Cells 0-1 /hpf (0-5/HPF) Urine Bacteria None seen (None) Hyaline Casts 1-5/lpf (None) Urine Mucus 1+ H (Negative) Ur Culture Indicated? Cult not indicated COVID-19 PCR (Negative) Point of Care Testing Rapid Strep A Negative Urine Dip Bedside Urine Glucose Negative Bedside Urine Bilirubin - Negative Bedside Urine Ketone +/- 5 Urine Specific [place] 1.010 Bedside Urine Occult Blood - Negative Bedside Urine pH 6 Bedside Urine Protein - Negative Bedside Urine Urobilinogen - Negative Bedside Urine Nitrite - Negative Discharge Plan Departure Patient Disposition: [facility] Clinical Impression: Acute appendicitis Qualifiers: Acute appendicitis type: other Qualified Code(s): K35.890 - Other acute appendicitis without perforation or gangrene Leukocytosis Qualifiers: Leukocytosis type: other Qualified Code(s): D72.828 - Other elevated white blood cell count Abdominal pain Qualifiers: Abdominal location: generalized Qualified Code(s): R10.84 - Generalized abdominal pain Prescriptions: No Action (DME) Disabled Parking Qty: 1 RF: 0 Calmoseptine 0.44-20.6 % ointment 1 applictn TOP QID PRN (Reason: skin irritation) Qty: 113 RF: 0 (DME) Battery Powered Lift Qty: 1 RF: 0 (DME) Power Chair tall Qty: 1 RF: 0 (DME) Semi-electric hospital bed Qty: 1 RF: 0 (DME) Shower Chair Qty: 1 RF: 0 baclofen 10 mg tablet 10 mg PO QID PRN (Reason: spasm) Qty: 120 RF: 1 sertraline 100 mg tablet 100 mg PO DAILY Qty: 90 RF: 1 doxycycline hyclate 100 mg capsule 100 mg PO BID Qty: 10 RF: 0 latanoprost 0.005 % Drops 1 drp EYE-BOTH BEDTIME RF: 0 Referrals: Nargis Fernandez DO [Primary Care Provider] - <Norman Perrin DO - Last Filed: 09/02/20 20:48> Cosign ED Attending Cosignature Attestation: Dr Perrin Co-Sign Statement: I was available for consultation during this patient's emergency department visit. This chart is signed by myself for administrative purposes only. I did not have direct contact with this patient during this visit. They were seen independently by the APC.
[2020-09-02 15:25] VITALS: BP 111/87; PULSE 100; RESP 16; TEMP 36.7; O2SAT 98
--- NOTE | 2020-09-02 15:55 | PC.NURSE ---
Mom reports nausea/vomiting/diarrhea x 1 week. Also productive cough with increased phlegm.
[2020-09-02 16:06] LABS: COVID19 -Nasal RAPID Negative (Negative)
[2020-09-02 16:13] LABS: Add Manual Diff / Slide Review NO; Basophils Absolute Auto 100 /uL (0-100); Basophils Percent Auto 0.3 % (0-2); Eosinophils Absolute Auto 200 /uL (0-450); Eosinophils Percent Auto 0.7 % (2-4); Hematocrit 38.7 % (41-53); Lymphocytes Absolute Auto 1900 /uL (1100-4500); Lymphocytes Percent Auto 9.4 % (25-40); Mean Corpuscular HGB Conc 33.5 % (30-36); Mean Corpuscular Hemoglobin 27.8 PG (26-34); Mean Corpuscular Volume 82.8 fL (80-100); Monocytes Absolute Auto 800 /uL (0-900); Neutrophils Absolute Auto 17700 /uL (1500-7000); Neutrophils Percent Auto 85.6 % (50-75); Platelet Count 266 X10^3/uL (150-400); Red Blood Cell Count 4.68 X10^6/uL (4.5-5.9); White Blood Cell Count 20.7 X10^3/uL (4.5-11.0)
--- NOTE | 2020-09-02 16:33 | DI.CT.S_ITS ---
PROCEDURE: CT ABDOMEN PELVIS W CON INDICATIONS: sbo on xray TECHNIQUE: After the administration of intravenous contrast, 5 mm thick sections acquired from the diaphragm to the symphysis. 5 mm coronal and sagittal reformats were acquired. For radiation dose reduction, the following was used: automated exposure control, adjustment of mA and/or kV according to patient size. COMPARISON: [facility], CR, XR ABDOMEN 1V, 09/02/2020, 15:21. [facility], CT, CT CHEST ABD PEL W CON, 01/17/2020, 23:36. FINDINGS: Image quality: Excellent. ABDOMEN: Lung bases: There is moderate left pleural effusion. Left basilar atelectasis. Heart size is normal. Small hiatal hernia. Solid organs: Liver is normal in size and enhancement. Gallbladder contains gallstones . Biliary system is non dilated. Pancreas enhances normally. Spleen is normal in size and enhancement. No adrenal nodules. Kidneys demonstrate normal size and enhancement, without hydronephrosis. Peritoneum and bowel: Appendix is distended and demonstrates mild wall thickening and periappendiceal stranding. An appendicoliths is present. There is an air-fluid level in stomach. Small bowel loops are filled with fluid and appears mildly distended. Bowel loops demonstrate normal wall thickness and caliber. No free fluid or air. Nodes and vessels: No retroperitoneal or mesenteric adenopathy by size criteria. Aorta and inferior vena cava are normal in size. Miscellaneous: No ventral hernias. PELVIS: Genitourinary: Bladder wall thickness is normal. Miscellaneous: No inguinal hernias or adenopathy. Bones: No suspicious bony lesions. No vertebral body compression fractures. IMPRESSION: 1. Acute appendicitis. 2. Fluid-filled stomach and small intestine which is at the upper limit of normal in caliber. Mild concentric thickening is present in a loop of distal ileum, most likely secondary to direct spread of infection/inflammation. There is abundant colonic gas. No definitive transitional point. The findings most likely secondary to ileus but early small bowel obstruction cannot be excluded. 3. Cholelithiasis. 4. Small to moderate left pleural effusion and left basilar atelectasis. 5. Trace pericardial effusion. The result was discussed with Wendie Hunt. Dictated by: Garth Kaplan M.D. on 09/02/2020 at 17:12 Approved by: Garth Kaplan M.D. on 09/02/2020 at 17:36
[2020-09-02 16:42] LABS: Lactate (Lactic Acid) 1.4 mmol/L (0.7-2.1)
[2020-09-02 16:43] LABS: Alanine Aminotransferase 9 IU/L (<50); Albumin 3.8 g/dL (3.5-5.0); Albumin Globulin Ratio 1.3 (1.0-2.8); Alkaline Phosphatase 110 U/L (38-126); Aspartate Aminotransferase 17 IU/L (17-59); BUN Creatinine Ratio 26.1 (6-22); Blood Urea Nitrogen 12 mg/dL (9-20); Calcium 9.2 mg/dL (8.4-10.2); Carbon Dioxide 22 mmol/L (22-32); Chloride 104 mmol/L (98-107); Estimated Glomerular Filt Rate > 60.0 mL/min (>60); Glucose 79 mg/dL (70-100); HEMOLYSIS 36 (0-50); Sodium 134 mmol/L (137-145); Total Protein 6.8 g/dL (6.3-8.2)
[2020-09-02] MEDS: SODIUM CHLORIDE 0.9% 1,000 ML 1000 ML IV (16:57)
[2020-09-02] MEDS: ONDANSETRON 4 MG/2 ML INJ IV (16:58)
[2020-09-02 17:03] LABS: Procalcitonin 3.64 ng/mL (<0.5)
[2020-09-02] MEDS: PIPERACILLIN-TAZO 3.375 GM/50 ML FROZ.PIGGY IV (17:49)
[2020-09-02 18:40] VITALS: BP 115/71; PULSE 89; RESP 16; O2SAT 99
[2020-09-02 18:52] LABS: Bacteria Urine None Seen
[2020-09-02 19:02] LABS: Culture Indicated Urine Cult Not Indicated; Hyaline Casts Urine 1-5/LPF; Mucus Urine 1+ (Negative); RBC Urine 1-5/HPF (0-5/HPF); Squamous Epithelial Cell Urine 0-1 /HPF (0-5/HPF); WBC Urine 0-1/HPF (0-5/HPF)
[2020-09-02 21:22] VITALS: BP 123/83; PULSE 88; RESP 16; O2SAT 93
[2020-09-02 23:10] VITALS: BP 114/77; PULSE 87; RESP 20; TEMP 36.7; O2SAT 97
== END 2020-09-02 23:28 | disposition short-term general hospital (02) ==
PROVIDERS: Emergency Provider Nurse Practitioner Family; Family Provider Family Medicine; PCP Family Medicine
DX: K35.890 Other acute appendicitis without perforation or gangrene (principal); D72.828 Other elevated white blood cell count; R10.84 Generalized abdominal pain; R05 Cough; R53.1 Weakness; Z85.841 Personal history of malignant neoplasm of brain; R79.89 Other specified abnormal findings of blood chemistry
CPT/HCPCS: 36415; 71045; 74018; 74177; 80053; 81003; 81015; 83605; 83735; 84145; 85025; 87040; 87070; 87147; 87635; 87880; 96361; 96365; 96375; 99283; 99284; J2405; J2543; Q9967

== ENCOUNTER → 2020-11-29 11:42 | Outpatient (CLI) | payer MEDICAID, OTHER, SELFPAY ==
[2020-01-18 05:28] VITALS: BMI 23.4
[2020-01-21 09:10] VITALS: PULSE 63; RESP 18; O2SAT 100
[2020-11-29 13:03] LABS: COVID19 -Nasal RAPID Negative (Negative)
== END ==
PROVIDERS: Family Provider Family Medicine; PCP Family Medicine; Visit Provider Nurse Practitioner
DX: Z20.822 Contact with and (suspected) exposure to COVID-19 (principal)
CPT/HCPCS: 87635; C9803

== ENCOUNTER 2020-12-01 11:37 | Day surgery (SDC) | payer MEDICAID, OTHER, SELFPAY ==
[2020-01-18 05:28] VITALS: BMI 23.4
[2020-01-21 09:10] VITALS: PULSE 63; RESP 18; O2SAT 100
[2020-12-01] VITALS (8 sets, daily range): BP systolic 108–136; BP diastolic 76–97; PULSE 67–97; RESP 12–15; TEMP 36.4–37; O2SAT 97–100; BMI 23.0
[2020-12-01] MEDS: LACTATED RINGERS 1,000 ML 42 ML IV (12:18)
[2020-12-01] MEDS: CLINDAMYCIN 600 MG/50 ML PIGGYBACK 50 MG IV (13:43)
--- NOTE | 2020-12-01 13:51 | SUR.OPER ---
Supine on padded OR bed, head on pillow, right arm padded and tucked at side, legs uncrossed,pillow under knees, safety belt at thigh, tape over blanket over lower legs .
[2020-12-01] MEDS: BUPIVACAINE 0.5% W/ EPI (PF) 30 ML VIAL INJ (13:54)
--- NOTE | 2020-12-01 14:37 | PM.PREOP ---
Pre-operative Note Interval Note History & Physical reviewed/Exam performed by Physician: Yes Changes to H&P: No ASA Class (for procedural sedation): III
--- NOTE | 2020-12-01 14:38 | PM.OP.1 ---
Operative Date/Time/Diagnoses Date of procedure: 12/01/20 Time of procedure: 14:38 Pre-op diagnosis: multiple decayed teeth, limited mouth opening, cerebral palsy Post-op diagnosis: same Procedure & Clinicians Same procedure as scheduled: Yes
--- NOTE | 2020-12-01 14:39 | P.OP_ITS ---
Operative Date/Time/Diagnoses Date of procedure: 12/01/20 Time of procedure: 14:41 Pre-op diagnosis: multiple decayed teeth, limited mouth opening, cerebral palsy Post-op diagnosis: same Procedure & Clinicians Procedure: Extraction of multiple teeth Same procedure as scheduled: Yes Indications: non-restorable caries Surgeon: Arian Flood Click Yes if Unassisted: Yes Anesthesia Type: General Operative Notes Findings: decay on teeth 1,18 and 32 Closure Type: not applicable Specimen(s): none sent Estimated Blood Loss (mL): 10 Procedure in detail: Jonnie Christopher is a 40 year old male who has cerebral palsy and exhibits limited mouth opening. He has multiple teeth with deep decay and these teeth are non-restorable. He was referred to our office for evaluation and treatment to extract these teeth. Patient underwent evaluation and discussion to remove three teeth under general anesthesia at [facility]. An informed consent was obtained from the patient and his mother and he was prepared for surgery. Patient was brought to operating theater number 4 at [facility]. The patient was prepared for the procedure and he underwent nasal intubation. Patient was prepped for and assembling inspector procedure. Marcaine 0.5% with 1:200 000 epinephrine was administered as bilateral inferior alveolar nerve blocks and administered as a right maxillary PSA and greater palatine nerve blocks. A moistened throat pack was placed. Attention was directed to tooth #1. The tooth was decayed to the gingiva. A crestal incision was made, a full thickness MP flap was elevated and the tooth roots were exposed and removed after bone was removed using hand instruments. The wound was rinsed out, gelfoam placed and a 3-0 cg suture was placed to reapproximate the soft tissues. Attention was directed to tooth #32: a crestal incision with a distal buccal hockey stick incision was made. A full thickness flap was elevated. Bone was removed using a surgical bur under copious irrigation. The tooth was then elevated and removed. The wound was rinsed out well and gelfoam placed into the socket. 3-0 cg suture was placed to reapproximate the soft tissues. Attention was then directed to tooth #18: a crestal incision with a distal buccal hockey stick incision was made. A full thickness flap was elevated. Bone was removed using a surgical bur under copious irrigation. The tooth was then elevated and removed. The wound was rinsed out well and gelfoam placed into the socket. 3-0 cg suture was placed to reapproximate the soft tissues. This marked the end of the procedure. The throat pack was removed and the oral cavity was suctioned dry. Moist gauze packs were placed to aid in hemostasis. Jonnie tolerated the procedure well. Complications: none Post-operative Condition: stable Disposition: PACU Plan for aftercare: Follow home care instructions provided. Soft diet for one week Keep gauze in mouth until bleeding stops and okay to leave out.
--- NOTE | 2020-12-01 14:43 | SUR.PHASEI ---
Received to PACU after general anesthesia. Oral airway in place. No further airway support required. Report received from PERCY Hyde and Dr Elise. Pt reaching for oral airway - otherwise unresponsive to voice and touch. Oral airway removed at 1449
--- NOTE | 2020-12-01 15:09 | SUR.PHASEI ---
Scant oral drainage noted.
--- NOTE | 2020-12-01 15:36 | SUR.PHASEII ---
Pt assist to wheelchair to ashley lift with self and tech assisting. Pt placed without difficulty. Mom denies any need for help into vehicle. Leaving PACU in wheelchair and mom at side.
== END 2020-12-01 15:25 | disposition home or self-care (01) ==
PROVIDERS: Family Provider Family Medicine; PCP Family Medicine; Referring Provider Dentist Oral and Maxillofacial Surgery; Visit Provider Dentist Oral and Maxillofacial Surgery
PROC: (CPT 41899; principal; 2020-12-01 13:00)
DX: K02.63 Dental caries on smooth surface penetrating into pulp (principal); G80.9 Cerebral palsy, unspecified; M26.52 Limited mandibular range of motion
CPT/HCPCS: D7210 ×3; J1100; J2250; J2405; J2704; J3010

== ENCOUNTER → 2021-06-01 15:24 | Outpatient (CLI) | payer MEDICAID, OTHER, SELFPAY ==
[2020-01-18 05:28] VITALS: BMI 23.4
[2020-01-21 09:10] VITALS: PULSE 63; RESP 18; O2SAT 100
[2021-06-01 16:54] LABS: Add Manual Diff / Slide Review NO; Basophils Absolute Auto 100 /uL (0-100); Basophils Percent Auto 1.7 % (0-2); Eosinophils Absolute Auto 300 /uL (0-450); Hematocrit 35.9 % (41-53); Hemoglobin 11.8 g/dL (13.5-17.5); Lymphocytes Absolute Auto 1800 /uL (1100-4500); Lymphocytes Percent Auto 39.9 % (25-40); Mean Corpuscular HGB Conc 32.8 % (30-36); Mean Corpuscular Hemoglobin 26.9 PG (26-34); Mean Corpuscular Volume 81.8 fL (80-100); Monocytes Absolute Auto 200 /uL (0-900); Monocytes Percent Auto 5.4 % (3-14); Neutrophils Absolute Auto 2100 /uL (1500-7000); Platelet Count 269 X10^3/uL (150-400); Red Blood Cell Count 4.39 X10^6/uL (4.5-5.9); Red Cell Distribution Width 13.5 % (11.6-14.8); White Blood Cell Count 4.5 X10^3/uL (4.5-11.0)
[2021-06-01 17:37] LABS: Alanine Aminotransferase 8 IU/L (<50); Albumin 3.6 g/dL (3.5-5.0); Albumin Globulin Ratio 1.2 (1.0-2.8); Alkaline Phosphatase 71 U/L (38-126); Aspartate Aminotransferase 22 IU/L (17-59); Bilirubin Total 0.3 mg/dL (0.2-1.3); Blood Urea Nitrogen 9 mg/dL (9-20); Calcium 8.8 mg/dL (8.4-10.2); Carbon Dioxide 32 mmol/L (22-32); Chloride 101 mmol/L (98-107); Estimated Glomerular Filt Rate > 60.0 mL/min (>60); Glucose 68 mg/dL (70-100); HEMOLYSIS < 15 (0-50); Potassium 3.5 mmol/L (3.4-5.1); Sodium 137 mmol/L (137-145); Total Protein 6.6 g/dL (6.3-8.2)
== END ==
PROVIDERS: PCP Family Medicine; Referring Provider Family Medicine; Visit Provider Family Medicine
DX: G81.90 Hemiplegia, unspecified affecting unspecified side (principal); G12.29 Other motor neuron disease; Z87.898 Personal history of other specified conditions
CPT/HCPCS: 36415; 80053; 85025

== ENCOUNTER 2021-08-24 13:30 | Outpatient (RCR) | payer MEDICAID, OTHER, SELFPAY ==
[2020-01-18 05:28] VITALS: BMI 23.4
[2020-01-21 09:10] VITALS: PULSE 63; RESP 18; O2SAT 100
--- NOTE | 2021-06-22 17:32 | ST.OPIE ---
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 Nargis Fernandez Reason for Referral Speech Disturbance; Risk of Aspiration Setting Assessment Location Outpatient Care Visit Type Note Type Initial evaluation Next Note Type Next Note Type Treatment Note Patient Information Identification Type Name,ID Card History The pt is a 41-yr-old male very familiar to this CARTON FORMING MACHINE HELPER from previous speech therapy targeting dysarthria and dysphagia. 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 The pt returns to outpatient care following fitting of a palatal obturator prosthesis to increase elevation of the soft palate to reduce hypernasality and prevent nasal regurgitation. Subjective Observations The pt arrived on time wearing the obturator. He reported it fits comfortably and does not interfere with his ability to breathe through his nose or to eat/swallow. He felt that it has helped his speech to be a bit clearer. He denied swallow problems and stated that he is able to eat whatever he wants. Reported by Patient Comment The pt lost a significant amount of weight ~2 yrs ago, unclear if intentional or not. He presents today looking to have maintained the weight he was at his last visit earlier in the year, which appears to be an appropriate weight for him. Current Diet Regular,Thin liquids Baseline Feeding Method Needs some assistance Objective Assessment Mental Status Alert,Responsive,Cooperative Oral Integrity Excessive saliva/Drooling Dentition Decay Lip Function Moderate impairment Observation of Lips at Rest Symmetrical Pucker Reduced range of motion, Reduced strength Lip Retraction Reduced range of motion Alternating Pucker/Lip Retraction Reduced range of motion Tongue Function Moderate impairment Observations of Tongue at Rest Within normal limits Tongue Protrusion Deviates to the right,Reduced strength Tongue Lateralization Reduced range of motion, Reduced strength Nasality Hypernasal Respiratory Sufficiency Mild impairment Comment Moderate-severe weakness of oral musculature. Excessive saliva with occasional drooling. Poor dental hygiene, full dentition that appears to be sufficient for slow rotary mastication. Labial, lingual and jaw ROM is adequate but reduced in strength. Buccal strength is also reduced. Pt able to hold minimal amounts of air in cheeks with limited lateralization. Lip seal is complete but weak; unable to make complete seal around straw but sufficient for drinking liquids when straw is placed at right corner of mouth. Hyolaryngeal elevation/ excursion was WNL via palpation. Food and Liquid Trials Position During Assessment Upright (90 degrees) Liquids Trialed Thin Solids Trialed Puree Administration Type Straw,Self-feeding Oral Impairment Moderately impaired Oral Phase Comments Slowed movements. Mastication was mashing in nature, appropriate for benderized texture. Occasional mild anterior labial loss of pureed bolus was observed, self- managed by pt with tissue. Pt exhibited reduced lingual control of bolus. Water audibly spilled to buccal cavities and/or floor of mouth during bolus prep and a/p transport, indicating reduced strength and coordination. Mild-moderate oral residue was present and cleared WFL with subsequent swallows, initiated by the pt. Pharyngeal Impairment Mildly impaired Pharyngeal Phase Comments Suspect delayed swallow trigger with early spillage to pharynx secondary to reduced control of a/p transport of bolus. Swallow was audible, gulping in nature, further indicating reduced strength and coordination of pharyngeal musculature. No overt s/sx of aspiration were observed with several single and consecutive sips of thin liquid from straw and with 3 oz of pudding. Trials of solid textures were limited in variety d/t time constraints. Additional textures will be trialed during treatment for further evaluation of texture tolerance and effectiveness of obturator to prevent nasal regurgitation. Fatigue/Endurance Endurance WNL Findings Swallowing Function Oropharyngeal phase dysphagia Severity of Swallow Impairment Moderately impaired Contributing Factors to Swallow Reduced oral strength/ Impairment coordination/sensation, Impaired oral-pharyngeal transport Prognosis Fair Based on Cognitive status,Comorbidities ,Duration of symptoms/severity Impact on Safety and Functioning Risk for aspiration Recommendations Instrumental Assessment No Swallowing Treatment Yes Frequency 1x/wk Duration for 6 wks in combination with speech therapy for dysarthria Recommended Solids Regular Recommended Liquids Thin Safety Precautions/Swallowing Reduce distractions,Remain Recommendations upright (90 degrees) during all oral intake,Upright position at least 30 minutes after meals,Small bites and sips when eating,Slow rate; swallow between bites,Multiple swallows,Strict oral care after intake Medication Recommendations As Tolerated Discharge Recommendations Home Comments with caregiver support Education Patient/Caregiver Education Described results of evaluation,Patient expressed understanding of evaluation, Patient expressed agreement with goals & treatment plans Goals Short-term Goals 1. The pt will follow safe swallow strategies with min cues to reduce risk of aspiration. 2. The pt will perform oral motor exercises to improve efficiency of swallow and improve saliva management. Long-term Goals 1. The pt will tolerate least restrictive diet to meet his nutrition and hydration needs. CARTON FORMING MACHINE HELPER Motor Speech Evaluation Start: 06/22/21 13:12 Freq: Status: Active Protocol: Document 06/22/21 13:12 ILDA (Rec: 06/22/21 13:13 ILDA [email or web address]) Motor Speech Evaluation Session Time Visit Start Time 12:00 Visit Stop Time 13:00 Total Visit Minutes 30 Setting Setting Outpatient Care Next Note Type Next Note Type Treatment Note Referral Referring Physician Dr. 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 Mental Status Mental Status Alert,Responsive,Cooperative Oral Motor Lips Function Moderate Impairment Tongue Function Moderate Impairment Jaw Function WFL Respiration/Phonation Phonation Stimulus Conversation Quality Breathy Other Mildly hypernasal Oral Reading Stimulus [place] passage Quality Breathy,Hoarse Other Reduced breath support; 5-8 words per breath Duration 5-8 words per breath Function Moderately Impaired Loudness Reduced Loudness Diadochokinetic Rates Speech Intelligibility Awareness/Strategy Use Description Type of awareness/use Uses intermittently Findings Details Motor Speech Function Moderate-Severe Impairment Type of Impairment Flaccid Dysarthria Assessment Details Assessment Evaluation of the pt?s voice and speech intelligibility was limited to perceptual assessment during conversation due to an emotional response by him upon playback of audio recordings of his voice. During both a follow-up reading task and conversation related to updated case history retrieval, the pt became tearful and the evaluation tasks were abandoned. The pt did not specify what had upset him but was able to overcome the emotion with off-topic conversation related to recent family activities. The session was redirected toward exercises to improve strength of oral-motor musculature and strategies to improve speech intelligibility , with which the pt eagerly participated. Exercises targeted increased labial seal and intra-oral suction to improve saliva control and increase strength of palatal lift. The pt was able to suck water and applesauce through a straw to the oral cavity with ease. With increased effort and time, he was also able to suck pudding through the straw . The consistency of pudding appears to provide an appropriate level of resistance as well as an enjoyable activity for the pt, which is anticipated to promote home practice. Initial training of compensatory speech strategies included instruction to imagine the listener is [place] and dependent on lip reading. The pt was able to over- articulate speech with improved intelligibility during short sentence productions. During conversation, the pt presented with moderate-severe dysarthria characterized by imprecise articulation, reduced breath support for speech, and mild to mild- moderate hypernasality. Hypernasality, while still present, is notably decreased compared to voice production prior to fitting and placement of the obturator. Speech intelligibility was ~75%, impacted most strongly by reduced breath support and imprecise articulation. The pt produced at most 8 words per breath, more frequently 5 words per breath with vocal loudness often decreasing at the end of utterances. With instruction to over-articulate speech, intelligibility increased to ~90%, demonstrating stimulability toward compensatory strategy use, although this may be limited d/t pt fatigue with extended effort. The pt may benefit from respiratory muscle strength training via resistance exercises to improve breath support for speech and swallow. Additionally, he may benefit from use of AAC device to increase ability to express wants and needs in demanding communication situations (e.g. , noisy environments, unfamiliar or [place]EN[place]EE conversation partners). Will discuss with pt at next session. Prognosis Rehabilitation Potential Fair Recommendations Treatment Recommended Yes Frequency 1x/wk Duration for 6 wks in conjunction with dysphagia treatment Short Term Goals 1. The pt will perform exercises to improve oral motor strength with mod cues to improve speech intelligibility, saliva management, and swallow function/safety. 2. Using visual prompts as needed, the pt will employ compensatory speech strategies with min cues in structured tasks to increase speech intelligibility. 3. Caregiver training to be provided to promote home practice and carryover of strategy use in functional conversations. Shopper Marketing Manager Goals 1. The pt will perform exercises to improve oral motor strength with min cues to improve speech intelligibility, saliva management, and swallow function/safety. 2. Using visual prompts as needed, the pt will employ compensatory speech strategies with min cues in spontaneous conversation to increase speech intelligibility. 3. The pt will tolerate least restrictive diet to meet his nutrition and hydration needs. Additional goals may be established related to AAC communication if incorporated into POC. Patient/Family Education Education Described results of evaluation,Patient Understanding,Patient Demonstration,Patient Needs More Info,Family Needs More Info
--- NOTE | 2021-07-21 14:06 | ST-OP ANOTE ---
Physical, Occupational & Speech Therapy At [facility] Speech Therapy Note Jonnie arrived on time for his appt. Therapy was initiated with discussion of treatment goals targeting improving breath support and speech intelligibility. Upon MD DO RESIDENT [employer]ENT C[employer]'s reference to others understanding him better, Jonnie again became very tearful. Through answering a series of yes/no questions, Jonnie clearly communicated that he did not wish to be at Speech Therapy and that he was not there by his own choice. He felt that he is able to communicate effectively enough to have conversations with others, express and obtain his wants and needs, and express his opinions. This MD DO [facility]IDENT [facility] stated her intentions only to help him communicate well and that attending or not attending therapy was his choice. He indicated that he wished to leave. MD DO [facility]IDENT [facility] requested and received permission to talk with his mother about the conversation and decision and informed that his case would be left open for a week. In that time, the pt could decide to continue or discontinue therapy, and this MD DO [facility] would honor those wishes. The pt nodded agreement with this plan. After he left, this MD DO [facility] spoke with his mother by phone and explained the situation. She stated an intention to talk to Jonnie zarco and call back tomorrow with a decision regarding therapy.
--- NOTE | 2021-07-27 16:16 | ST.OPTN ---
Visit Care Team Role Provider Type Nargis Fernandez DO Attending Provider Physician Primary Care Provider Referring Provider Address: [address] [place] [address], [facility], [place], [address] KISS SETTER HAND Treatment Note [employer] Treatment Note Start: 07/27/21 16:00 Freq: Status: Active Protocol: Document 07/27/21 16:00 ILDA (Rec: 07/27/21 16:14 ILDA [email or web address]) Speech Pathology Treatment Note Session Time Visit Start Time 13:30 Visit Stop Time 14:15 Total Visit Minutes 45 Visit Information Visit Number 1 Plan of Care Dates 06/22/21 - 09/22/20 Insurance Information Medicaid Setting Treatment Setting Outpatient Care Visit Type Note Type Treatment Note Next Note Type Next Note Type Treatment Note General Information General Information The pt is a 41-yr-old male very familiar to this KISS SETTER HAND from previous speech therapy targeting dysarthria and dysphagia. 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 The pt returns to outpatient care following fitting of a palatal obturator prosthesis to increase elevation of the soft palate to reduce hypernasality and prevent nasal regurgitation. Subjective Observations/Patient Presentation Phone message was received from the pt's mother on 07/22, stating that she had talked with Jonnie about his becoming upset and leaving speech therapy last week (see Administrative Note). She reported he had just had a bad day but did, in fact, wish to attend more speech therapy sessions. He arrived on time and was agreeable to participating in speech therapy and was participatory throughout. He had no emotional response to treatment today. Chief Complaint(s) Speech,Swallowing Patient Knowledge/Awareness of KISS SETTER HAND Role Excellent in Treatment Parent/Caretake Knowledge/Awareness of Excellent KISS SETTER HAND Role in Treatment Patient/Caregiver Compliance with Home Fair Exercise Program Objective Short Term Goals 1. The pt will follow safe swallow strategies with min cues to reduce risk of aspiration. 2. The pt will perform exercises to improve oral motor strength with mod cues to improve speech intelligibility, saliva management, and swallow function/safety. 3. Using visual prompts as needed, the pt will employ compensatory speech strategies with min cues in structured tasks to increase speech intelligibility. 4. Caregiver training to be provided to promote home practice and carryover of strategy use in functional conversations. Fdc Goals 1. The pt will tolerate least restrictive diet to meet his nutrition and hydration needs. 2. The pt will perform exercises to improve oral motor strength with min cues to improve speech intelligibility, saliva management, and swallow function/safety. 3. Using visual prompts as needed, the pt will employ compensatory speech strategies with min cues in spontaneous conversation to increase speech intelligibility. Treatment Activities Trained pt in oral motor exercises targeting improved velopharyngeal closure to reduce hypernasality and improve speech intelligibility ; buccal and labial strength to improve intelligiblity, oral prep and swallow phases; and laryngeal lift to improve airway closure. The pt performed all exercises with KISS SETTER HAND guidance. Nasal and labial emission was noted during tasks in which the pt blew through a straw. With verbal prompts, the pt tightened lip seal to reduce labial emission . The pt was able to count to 6 aloud on a single breath with loudness and intelligibility WFL, targeting increased breath support for speech. Written instructions for HEP were provided, and the pt was instructed to perform exercises with Caregiver assistance at least 5x/wk in order to establish routine necessary for strengthening. The pt verbalized understanding. The pt also consumed 4 oz of pudding without overt s/sx of aspiration. Mild oral residue, anterior labial spillage, ans excessive pooling of saliva was noted, which the pt managed moderately effectively with additional swallows and wiping of his mouth with tissue. Assessment Patient Response to Treatment Good Rehab Potential Fair Impairments Identified Dysarthria,Dysphagia,Oral Motor,Speech Intelligibility Assessment of Improvement The pt was cooperative, participatory, and pleasant throughout the session, able to perform all exercises with guided instruction. Weakness of oral structures continues to contribute to air leakage at nose and lips during certain tasks (e.g., filling cheeks with air, blowing air bubbles into water). Hypernasal resonance is significantly decreased with use of palatal obturator; occasional mild hypernasality in speech and nasal emission in structured tasks persist. Reviewed with Patient Goals,Progress Being Made,Home Exercise Program Patient/Caregiver Understanding Good Plan Amount of Therapy Recommended 1 Month Frequency of Treatment Once a Week Length of Session 45 Minutes Therapeutic Contents Client Education,Home Exercise Program,Intelligibility,Oral Motor Training,Swallowing/ Feeding Provided Patient/Caregiver Instruction Home Exercise Program,Plan of Care,Questions/Concerns Therapy Recommendations Continue with Current Program
--- NOTE | 2021-08-03 15:21 | ST.OPTN ---
Visit Care Team Role Provider Type Nargis Fernandez DO Attending Provider Physician Primary Care Provider Referring Provider Address: [address] [place] [address], [address], [place], [address] CAR PAINTER Treatment Note CAR PAINTER Treatment Note Start: 07/27/21 16:00 Freq: Status: Active Protocol: Document 08/03/21 15:14 ILDA (Rec: 08/03/21 15:21 ILDA [email or web address]) Speech Pathology Treatment Note Session Time Visit Start Time 13:30 Visit Stop Time 14:15 Total Visit Minutes 45 Visit Information Visit Number 2 Plan of Care Dates 06/22/21 - 09/22/20 Insurance Information Medicaid Setting Treatment Setting Outpatient Care Visit Type Note Type Treatment Note Next Note Type Next Note Type Treatment Note General Information General Information The pt is a 41-yr-old male very familiar to this CAR PAINTER from previous speech therapy targeting dysarthria and dysphagia. 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 The pt returns to outpatient care following fitting of a palatal obturator prosthesis to increase elevation of the soft palate to reduce hypernasality and prevent nasal regurgitation. Subjective Observations/Patient Presentation The pt arrived on time and was agreeable to participating in speech therapy and was participatory throughout. He had no emotional response to treatment today. Chief Complaint(s) Speech,Swallowing Patient Knowledge/Awareness of CAR PAINTER Role Excellent in Treatment Parent/Caretake Knowledge/Awareness of Excellent CAR PAINTER Role in Treatment Patient/Caregiver Compliance with Home Fair Exercise Program Objective Short Term Goals 1. The pt will follow safe swallow strategies with min cues to reduce risk of aspiration. 2. The pt will perform exercises to improve oral motor strength with mod cues to improve speech intelligibility, saliva management, and swallow function/safety. 3. Using visual prompts as needed, the pt will employ compensatory speech strategies with min cues in structured tasks to increase speech intelligibility. 4. Caregiver training to be provided to promote home practice and carryover of strategy use in functional conversations. Central Office Supervisor Goals 1. The pt will tolerate least restrictive diet to meet his nutrition and hydration needs. 2. The pt will perform exercises to improve oral motor strength with min cues to improve speech intelligibility, saliva management, and swallow function/safety. 3. Using visual prompts as needed, the pt will employ compensatory speech strategies with min cues in spontaneous conversation to increase speech intelligibility. Treatment Activities Continued training pt in oral motor exercises targeting improved velopharyngeal closure to reduce hypernasality and improve speech intelligibility; buccal and labial strength to improve intelligiblity, oral prep and swallow phases; and laryngeal lift to improve airway closure. The pt performed all exercises with CAR PAINTER guidance. mild nasal and moderate labial emission was noted during tasks in which the pt blew through a straw. The pt was able to count to 10 aloud on a single breath with loudness and intelligibility WFL, targeting increased breath support for speech. Written instructions for HEP were provided again, this time on brightly colored paper and in a bright folder to help avoid losing it again. The pt was instructed to perform exercises with Caregiver assistance at least 5x/wk in order to establish routine necessary for strengthening. The pt stated between 2:00-3: 00 pm would be a good time for daily exercise. This was recorded on his HEP instructions. Discussed POC and reiterated the importance of home practice for improvement. Pt verbalized understanding and agreement. Agreed to weekly visits until home practice was consistent, after which visits would be spread out to transition to independence and for ongoing assessment. Pt agreed. The pt also consumed 2 oz of applesauce via straw without overt s/sx of aspiration. Mild oral residue, anterior labial spillage, ans excessive pooling of saliva was noted, which the pt managed moderately effectively with additional swallows and wiping of his mouth with tissue. Assessment Patient Response to Treatment Good Rehab Potential Fair Impairments Identified Dysarthria,Dysphagia,Oral Motor,Speech Intelligibility Assessment of Improvement The pt was cooperative, participatory, and pleasant throughout the session, able to perform all exercises with guided instruction. Weakness of oral structures continues to contribute to air leakage at nose and lips during certain tasks (e.g., filling cheeks with air, blowing air bubbles into water). Hypernasal resonance is significantly decreased with use of palatal obturator; occasional mild hypernasality in speech and nasal emission in structured tasks persist. The pt has not been compliant with exercises since last visit, in part from losing the list of exercises and instructions, which were replaced today. He verbalized understanding of the importance of consistent practice in order to improve function. Reviewed with Patient Goals,Progress Being Made,Home Exercise Program Patient/Caregiver Understanding Good Plan Amount of Therapy Recommended 1 Month Frequency of Treatment Once a Week Length of Session 45 Minutes Therapeutic Contents Client Education,Home Exercise Program,Intelligibility,Oral Motor Training,Swallowing/ Feeding Provided Patient/Caregiver Instruction Home Exercise Program,Plan of Care,Questions/Concerns Therapy Recommendations Continue with Current Program
--- NOTE | 2021-08-10 17:52 | ST.OPTN ---
Visit Care Team Role Provider Type Nargis Fernandez DO Attending Provider Physician Primary Care Provider Referring Provider Address: [address] [place] [address], [facility], [place], [address] WIRELESS TELEGRAPHER Treatment Note WIRELESS TELEGRAPHER Treatment Note Start: 07/27/21 16:00 Freq: Status: Active Protocol: Document 08/10/21 17:35 ILDA (Rec: 08/10/21 17:52 ILDA [email or web address]) Speech Pathology Treatment Note Session Time Visit Start Time 14:30 Visit Stop Time 15:10 Total Visit Minutes 40 Visit Information Visit Number 3 Plan of Care Dates 06/22/21 - 09/22/20 Insurance Information Medicaid Setting Treatment Setting Outpatient Care Visit Type Note Type Treatment Note Next Note Type Next Note Type Treatment Note General Information General Information The pt is a 41-yr-old male very familiar to this WIRELESS TELEGRAPHER from previous speech therapy targeting dysarthria and dysphagia. 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 The pt returns to outpatient care following fitting of a palatal obturator prosthesis to increase elevation of the soft palate to reduce hypernasality and prevent nasal regurgitation. Subjective Observations/Patient Presentation The pt arrived on time. No new complaints. He reported being somewhat compliant with HEP. He is performing exercises without caregiver assistance. As a result, he has not been performing all exercises, as at least 2 require assistance with facilitation. The pt was participatory for nearly 40 min of treatment, when he again became tearful when the Clinician prompted him to use speech strategies when reading exercise instructions aloud. The session was discontinued at that time. Chief Complaint(s) Speech,Swallowing Patient Knowledge/Awareness of WIRELESS TELEGRAPHER Role Excellent in Treatment Parent/Caretake Knowledge/Awareness of Excellent WIRELESS TELEGRAPHER Role in Treatment Patient/Caregiver Compliance with Home Fair Exercise Program Objective Short Term Goals 1. The pt will follow safe swallow strategies with min cues to reduce risk of aspiration. 2. The pt will perform exercises to improve oral motor strength with mod cues to improve speech intelligibility, saliva management, and swallow function/safety. 3. Using visual prompts as needed, the pt will employ compensatory speech strategies with min cues in structured tasks to increase speech intelligibility. 4. Caregiver training to be provided to promote home practice and carryover of strategy use in functional conversations. [facility] Goals 1. The pt will tolerate least restrictive diet to meet his nutrition and hydration needs. 2. The pt will perform exercises to improve oral motor strength with min cues to improve speech intelligibility, saliva management, and swallow function/safety. 3. Using visual prompts as needed, the pt will employ compensatory speech strategies with min cues in spontaneous conversation to increase speech intelligibility. Treatment Activities Continued training pt in oral motor exercises targeting improved velopharyngeal closure to reduce hypernasality and improve speech intelligibility; buccal and labial strength to improve intelligiblity, oral prep and swallow phases; and laryngeal lift to improve airway closure. The pt performed all exercises with WIRELESS TELEGRAPHER guidance. mild nasal and moderate labial escape of air was noted during tasks in which the pt blew through a straw and when he filled cheeks with air, either holding static or shifting air from cheek to cheek. Instructed pt to perform lip puckering in the form of kissing sounds. The pt performed with soft palate weakness, which was auditorily perceived, x1 in 12 trials. Returned to [id number] task with instructions to purse lips tightly as in puckering task, and the pt reduced nasal and labial escape of air (1 and 4 occurrences, respectfully, across 10 trials ). The pt read all instructions to exercises aloud with ~80% intelligibility and up to 7 words on a single breath. He performed all but 2 exercises independently, demonstrating understanding. The remaining 2 exercises require assistance, which is recommended to be provided by caregivers, yet has not been to date. During reading of instructions for the last exercise, the pt was encouraged to read clearly as if WIRELESS TELEGRAPHER were reading his lips. At this, the pt became tearful. He stated several times, I'm fine but was unable to stop crying. He was not responsive to the WIRELESS TELEGRAPHER' s condolences and attempts at encouragement, and the session was discontinued. Assessment Patient Response to Treatment Good Rehab Potential Fair Impairments Identified Dysarthria,Dysphagia,Oral Motor,Speech Intelligibility Assessment of Improvement The pt was cooperative, participatory, and pleasant until the last 5 minutes of the session, when he became emotional an no longer able to participate. Until then, he was able to perform most exercises with written instructions, with the exception of 2 exercises that require assistance. Weakness of oral structures continues to contribute to air leakage at nose and lips during certain tasks (e.g., filling cheeks with air, blowing air bubbles into water) but improved following additional lip puckering task. Hypernasal resonance is significantly decreased with use of palatal obturator; occasional mild hypernasality in speech and nasal emission in structured tasks persist. Compliance with HEP is somewhat improved; however, the pt is not receiving assistance from caregivers and is therefore limited in ability to complete all tasks. If caregiver support does not occur, modifications to exercises will be made. Given the pt's frequent emotional response during treatment sessions, it is unclear how effective continued attempts at skilled intervention will be. Will f/u with pt at the next session, and with his mother as needed. Reviewed with Patient Goals,Progress Being Made,Home Exercise Program Patient/Caregiver Understanding Good Plan Amount of Therapy Recommended 1 Month Frequency of Treatment Once a Week Length of Session 45 Minutes Therapeutic Contents Client Education,Home Exercise Program,Intelligibility,Oral Motor Training,Swallowing/ Feeding Provided Patient/Caregiver Instruction Home Exercise Program,Plan of Care,Questions/Concerns Therapy Recommendations Continue with Current Program
--- NOTE | 2021-08-17 17:56 | ST.OPTN ---
Visit Care Team Role Provider Type Nargis Fernandez DO Attending Provider Physician Primary Care Provider Referring Provider Address: [address] [place] [address], [address], [place], [address] PHYSICIAN EXTENDER Treatment Note PHYSICIAN EXTENDER Treatment Note Start: 07/27/21 16:00 Freq: Status: Active Protocol: Document 08/17/21 17:40 ILDA (Rec: 08/17/21 17:56 ILDA [email or web address]) Speech Pathology Treatment Note Session Time Visit Start Time 13:30 Visit Stop Time 14:15 Total Visit Minutes 45 Visit Information Visit Number 4 Plan of Care Dates 06/22/21 - 09/22/20 Insurance Information Medicaid Setting Treatment Setting Outpatient Care Visit Type Note Type Treatment Note Next Note Type Next Note Type Treatment Note General Information General Information The pt is a 41-yr-old male very familiar to this PHYSICIAN EXTENDER from previous speech therapy targeting dysarthria and dysphagia. 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 The pt returns to outpatient care following fitting of a palatal obturator prosthesis to increase elevation of the soft palate to reduce hypernasality and prevent nasal regurgitation. Subjective Observations/Patient Presentation The pt arrived on time. No new complaints. He reported having been teary at last session d/t depression related to the weather and shortened hours of daylight, and also having had chest congestion which decreased his lung capacity last week. He was feeling better today. He stated he continued doing his exercises but without caregiver help. As a result, he was not doing one of the exercises that required some assistance. The pt also reported that his palatal obturator no longer fit because he had had a molar that anchored it removed. He is scheduled to visit the channel cementer outsole machine later in the week for refitting. He did state that he felt his speech was better and that people were understanding him more. Chief Complaint(s) Speech,Swallowing Patient Knowledge/Awareness of PHYSICIAN EXTENDER Role Excellent in Treatment Parent/Caretake Knowledge/Awareness of Excellent PHYSICIAN EXTENDER Role in Treatment Patient/Caregiver Compliance with Home Fair Exercise Program Objective Short Term Goals 1. The pt will follow safe swallow strategies with min cues to reduce risk of aspiration. 2. The pt will perform exercises to improve oral motor strength with mod cues to improve speech intelligibility, saliva management, and swallow function/safety. 3. Using visual prompts as needed, the pt will employ compensatory speech strategies with min cues in structured tasks to increase speech intelligibility. 4. Caregiver training to be provided to promote home practice and carryover of strategy use in functional conversations. Milk Hauler Goals 1. The pt will tolerate least restrictive diet to meet his nutrition and hydration needs. 2. The pt will perform exercises to improve oral motor strength with min cues to improve speech intelligibility, saliva management, and swallow function/safety. 3. Using visual prompts as needed, the pt will employ compensatory speech strategies with min cues in spontaneous conversation to increase speech intelligibility. Treatment Activities Modified pt's HEP, removing the straw and paper task that required assistance, since the pt was not receiving any assistance from his caregivers and expressed a preference to not receive their help. The pt completed all other exercises, demonstrating improved lip strength and ability to hold and shift air in cheeks with reduced escape at lips and soft palate. Occasionally, escape could be heard at either site. The pt acknowledged hearing the same and was able to stop the escape, indicating improved labial and velopharyngeal seals. Additionally, he demonstrated mildly improved breath strength/support by blowing bubbles in water with a straw, much stronger than last week; counting to 10 on a single breath in 80% of opportunities; and singing along with a familiar song that was played. In the latter , the pt sang up to 6 words in a single breath and typically sang every other line of 2 songs, catching his breath between. He reported enjoying to sing, and this was added to his HEP. Assessment Patient Response to Treatment Good Rehab Potential Fair Impairments Identified Dysarthria,Dysphagia,Oral Motor,Speech Intelligibility Assessment of Improvement Improved expiratory strength was demonstrated in exercises today, as well as in occasional coughs, which were productive and possibly reflect lingering chest congestion. Improve labial and velopharyngeal seals were also noted in tasks involving blowing through straws and filling cheeks with air. Overall, the pt's speech was mildly improved and nasality was perceived to be closer to normal, as compared to voice prior to use of the obturator, despite the obturator not being used today. This indicates improvement in velum strength. The pt remained in good spirits throughout the session . He expressed enjoyment of singing, which was added to HEP to promote respiratory muscle strengthening for voice and cough, as well as targeting speech intelligibility. Reviewed with Patient Goals,Progress Being Made,Home Exercise Program Patient/Caregiver Understanding Good Plan Amount of Therapy Recommended 1 Month Frequency of Treatment Once a Week Length of Session 45 Minutes Therapeutic Contents Client Education,Home Exercise Program,Intelligibility,Oral Motor Training,Swallowing/ Feeding Provided Patient/Caregiver Instruction Home Exercise Program,Plan of Care,Questions/Concerns Therapy Recommendations Continue with Current Program
--- NOTE | 2021-08-24 16:54 | ST.OPDS ---
Visit Care Team Role Provider Type Nargis Fernandez DO Attending Provider Physician Primary Care Provider Referring Provider Address: [address] [place] [address], [address], [place], [address] PIPE FITTER HELPER Treatment Note PIPE FITTER HELPER Treatment Note Start: 07/27/21 16:00 Freq: Status: Active Protocol: Document 08/24/21 16:31 ILDA (Rec: 08/24/21 16:54 ILDA [id number]) Speech Pathology Treatment Note Session Time Visit Start Time 13:30 Visit Stop Time 14:15 Total Visit Minutes 45 Visit Information Visit Number 5 Plan of Care Dates 06/22/21 - 09/22/20 Insurance Information Medicaid Setting Treatment Setting Outpatient Care Visit Type Note Type Discharge Summary Next Note Type Next Note Type Treatment Note General Information General Information The pt is a 41-yr-old male very familiar to this PIPE FITTER HELPER from previous speech therapy targeting dysarthria and dysphagia. 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 The pt returns to outpatient care following fitting of a palatal obturator prosthesis to increase elevation of the soft palate to reduce hypernasality and prevent nasal regurgitation. Subjective Observations/Patient Presentation The pt arrived on time. No new complaints. He reported completing HEP tasks 2-3x/day independently. He had no questions or new concerns. He denied difficulty with swallow . He reported that his palatal obturator had been revised by human resources compliance manager to fit his mouth with the newly absent molar. He was not wearing the obturator today, stating that he was running late and did not have time to put it in. He stated he wears it ~1/2 of each day. Chief Complaint(s) Speech,Swallowing Patient Knowledge/Awareness of PIPE FITTER HELPER Role Excellent in Treatment Parent/Caretake Knowledge/Awareness of Excellent PIPE FITTER HELPER Role in Treatment Patient/Caregiver Compliance with Home Fair Exercise Program Objective Short Term Goals 1. The pt will follow safe swallow strategies with min cues to reduce risk of aspiration. 2. The pt will perform exercises to improve oral motor strength with mod cues to improve speech intelligibility, saliva management, and swallow function/safety. 3. Using visual prompts as needed, the pt will employ compensatory speech strategies with min cues in structured tasks to increase speech intelligibility. 4. Caregiver training to be provided to promote home practice and carryover of strategy use in functional conversations. Occupational Therapy Asst Goals 1. The pt will tolerate least restrictive diet to meet his nutrition and hydration needs. 2. The pt will perform exercises to improve oral motor strength with min cues to improve speech intelligibility, saliva management, and swallow function/safety. 3. Using visual prompts as needed, the pt will employ compensatory speech strategies with min cues in spontaneous conversation to increase speech intelligibility. Treatment Activities The pt completed all exercises , demonstrating improved lip strength and ability to hold and shift air in cheeks with reduced escape at lips and soft palate. Occasionally, escape could be heard at either site. Pt exhibited improved lip seal around straw with minimal air leakage when blowing bubbles in water for an avg of 2.5 sec at a time. Bubbles were consistently large in size, demonstrating mildly improved breath support since SOC. The pt sang along to 3 songs played on [employer] with moderate difficulty producing speech at the same pace as the singers and producing up to 7 words on a single breath. The pt expressed enjoying this task, which is an excellent exercise for him to continue, as it targets rapid speech articulation, breath support, and vocal loudness in an enjoyable activity. Skilled feedback and education was provided RE progress made to date and recommendations for progress including ongoing daily practice of exercises and wearing the obturator as much as possible, rationale provided. The pt verbalized understanding and agreement. Speech was ~90% intelligible throughout the session with reduced hypernasality even without the obturator, as compared to prior Speech Therapy courses. Occasional hypernasality was still perceived, as well as imprecise articulation. The pt consumed water via straw without overt s/sx of aspiration and with clear voicing post-swallow. Discussed POC and agreed to discharge pt from skilled intervention with continuance of HEP and use of obturator. Assessment Patient Response to Treatment Good Rehab Potential Fair Impairments Identified Dysarthria,Dysphagia,Oral Motor,Speech Intelligibility Progress Towards Goals Slow Progress Assessment of Overall Progress Improving Assessment of Improvement Over the course of treatment, the pt has made slow but moderate progress toward reduced hypernasality, particularly when wearing palatal obturator, but also without, as compared to prior courses of Speech Therapy. This indicates benefit both from the prosthesis and exercises. He continues with reduced breath support for speech resulting in frequent breaths and short verbal utterances to maintain vocal loudness in speech, frequently imprecise articulation, and occasional hypernasality. However, speech intelligibility is WFL when the pt uses compensatory strategies, which he does most of the time. Lip seal is moderately strengthened, resulting in reduced drooling but ongoing excessive saliva that frequently pools at his mouth. He reports consistent, independent compliance with HEP tasks. This PIPE FITTER HELPER has promoted CG involvement with exercises, but the pt has been resistant to this and CGs have not attended therapy sessions for training. Over the course of treatment he has also informed that coming to Speech Therapy is not his choice, but promoted by his mother. Since the pt is demonstrating good compliance with exercises and states he is being understood sufficiently by others, he will be discharged to home practice at this time. The pt was in agreement with this plan and denied any other concerns he would like to have addressed with skilled intervention. Reviewed with Patient Goals,Progress Being Made,Home Exercise Program Patient/Caregiver Understanding Good Plan Frequency of Treatment No Further Therapy Therapeutic Contents Client Education,Home Exercise Program,Intelligibility,Oral Motor Training,Swallowing/ Feeding Provided Patient/Caregiver Instruction Home Exercise Program,Plan of Care,Questions/Concerns Therapy Recommendations Continue with Current Program
== END 2021-10-20 08:53 ==
LOC: SP 13:30
PROVIDERS: PCP Family Medicine; Referring Provider Family Medicine; Visit Provider Family Medicine
DX: G81.91 Hemiplegia, unspecified affecting right dominant side (principal); R47.9 Unspecified speech disturbances; G12.29 Other motor neuron disease; Z91.89 Other specified personal risk factors, not elsewhere classified
CPT/HCPCS: 92507; 92523; 92526

== ENCOUNTER 2021-10-07 13:08 | Emergency (ER) | payer MEDICAID, OTHER, SELFPAY ==
[2020-01-18 05:28] VITALS: BMI 23.4
[2020-01-21 09:10] VITALS: PULSE 63; RESP 18; O2SAT 100
[2021-10-07 13:22] VITALS: BP 104/58; PULSE 74; RESP 15; TEMP 36.6; O2SAT 100
--- NOTE | 2021-10-07 13:29 | DI.US.S_ITS ---
PROCEDURE: US PERIPH VENOUS LOW EXTREM RT INDICATIONS: PAIN TECHNIQUE: Real-time imaging, as well as color and pulse Doppler interrogation, were performed of the lower extremity deep veins from the inguinal ligament to the popliteal fossa. COMPARISON: None. FINDINGS: The common femoral, femoral and popliteal veins are normally compressible, and free of intraluminal thrombus. Color and pulse Doppler demonstrate normal phasic intraluminal flow. There is normal augmentation response to distal compression maneuver. There is a small fluid collection in the right popliteal fossa measuring 2.3 x 3.3 x 1.0 cm. IMPRESSION: Negative for deep venous thrombosis of the right lower extremity. Right popliteal fossa fluid collection likely representing a Power's/popliteal cyst. Dictated by: Mane Abbott M.D. on 10/07/2021 at 14:21 Approved by: Mane Abbott M.D. on 10/07/2021 at 14:22
--- NOTE | 2021-10-07 14:44 | ED_ITS ---
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 He denies any obvious or known injury. He has had no fever, chills nor obvious numbness or tingling. They deny any swelling or redness. He is otherwise well and free of complaint at his relative baseline. They are here because of concern for a blood clot Related Data Home Medications Medication Instructions Recorded Confirmed baclofen 5 mg tablet 5 mg PO DAILY 07/20/21 onabotulinumtoxinA 100 unit 200 unit IM ONCE 07/20/21 solution for injection (Botox) Previous Rx's Medication Instructions Recorded Battery Powered Lift #1 ea 03/02/18 Power Chair #1 ea 10/16/18 Semi-electric hospital bed #1 ea 11/17/18 Disabled Parking #1 each 01/15/19 Shower Chair #1 ea 07/04/19 sertraline 100 mg tablet 100 mg PO DAILY #90 tab 06/01/21 Allergies Allergy/AdvReac Type Severity Reaction Status Date / Time Penicillins [PENICILLINS] Allergy Severe RASH Verified 12/01/20 12:19 Review of Systems Review of Systems Narrative: GENERAL: Denies chills, fatigue, malaise, fever, sweats. HEENT: Denies sinus pain, ear pain, sore throat, difficulty swallowing, dizziness. RESPIRATORY: Denies dyspnea, cough, wheezing, hemoptysis, sputum. CARDIOVASCULAR: Denies chest pain, palpitations, orthopnea, edema, GASTROINTESTINAL: Denies nausea, vomiting, abdominal pain, diarrhea, constipation, melena. : Denies dysuria, frequency, incontinence, hematuria, urinary retention. MUSCULOSKELETAL: See HPI SKIN: Denies rash, skin lesions, or other NEUROLOGIC: Denies weakness, headache, numbness, change in speech, confusion, seizures, incoordination. PSYCHIATRIC: No concerning psychosocial issues. 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 Father No problems noted. Social History marital status: unmarried,single household members: family, caregiver and none Smoking Status: Former smoker alcohol intake: never substance use type: marijuana Smoking Status: Former smoker alcohol intake frequency: 0-2 drinks per day Substance Use Type: marijuana Exam Narrative Exam Narrative: GEN: AOx3 and in mild distress EYES: Pupils are equal, round, and reactive to light and accommodation. E xtraoccular muscles are intact bilaterally. There is no subconjunctival hemorrhage or exudate. CHEST: Lungs are clear to auscultation bilaterally and free of wheezes, rales, or rhonchi. Heart rate is regular rhythm, there are no murmurs, clicks, rubs, or gallops. There is no chest wall tenderness. ABD: Abdomen is soft and nontender. There is no guarding or rebound. Bowel sounds are normal in all 4 quadrants. There is no mass or organomegaly. EXT: Full painless ROM of all extremities with no loss of sensation or strength. BACK: Back is nontender and free of any obvious external abnormalities. Patient exam is absent of any decreased range of motion, muscle spasm, CVA tenderness, or vertebral point tenderness. There are no symptoms of cauda equina such as saddle anesthesia, and decreased reflexes, decreased sensation or strength. SKIN: Warm, pink, and dry. No erythema or rash Initial Vital Signs Initial Vital Signs: Vital Signs Temperature 97.9 F 10/07/21 13:22 Pulse Rate 74 10/07/21 13:22 Respiratory Rate 15 10/07/21 13:22 Blood Pressure 104/58 L 10/07/21 13:22 Pulse Oximetry 100 10/07/21 13:22 Course Orders Ordered: ED Orders 10/07/21 13:29 US periph venous low extrem rt Stat Vital Signs Vital signs: Vital Signs - 8 hr 10/07/21 13:22 Temperature 97.9 F Pulse Rate 74 Respiratory Rate 15 Blood Pressure 104/58 L Pulse Oximetry 100 MDM - Extremity Injury (Lower) Imaging Data US - DVT: Radiologist's Impression: Launch?[address] [address] Ultrasound Report Signed Patient: Jonnie Christopher MR#: [id number] : 1980 Acct:[id number] Age/Sex: 41 / M Date of Service: 10/07/21 Loc: ED Accession Number: [id number] ?? Procedure: US periph venous low extrem rt Ordering Provider: Remington Osborn D.O. PROCEDURE:? US PERIPH VENOUS LOW EXTREM RT ? INDICATIONS:? PAIN ? TECHNIQUE:? Real-time imaging, as well as color and pulse Doppler interrogation, were performed of the lower extremity deep veins from the inguinal ligament to the popliteal fossa.? ? COMPARISON:? None. ? FINDINGS:? The common femoral, femoral and popliteal veins are normally compressible, and free of intraluminal thrombus.? Color and pulse Doppler demonstrate normal phasic intraluminal flow.? There is normal augmentation response to distal compression maneuver. ? ? There is a small fluid collection in the right popliteal fossa measuring 2.3 x 3.3 x 1.0 cm. ? IMPRESSION:? ? Negative for deep venous thrombosis of the right lower extremity. ? ? Right popliteal fossa fluid collection likely representing a Power's/popliteal cyst.? ? Dictated by: Mane Abbott M.D. on 10/07/2021 at 14:21 ? ? Approved by: Mane Abbott M.D. on 10/07/2021 at 14:22 ? [facility] Narrative Medical decision making narrative: Multiple diagnoses considered including DVT versus cellulitis versus radiation from low back pain. Physical exam and history are very reassuring. There is no redness, warmth or swelling and therefore infection is thought unlikely. Ultrasound suggests no DVT but does mention Power cyst. Patient has no pain and palpation on back and denies any injury making this less likely. Return precautions given and questions been answered to their apparent satisfaction Discharge Plan Departure Patient Disposition: Home Clinical Impression: Power's cyst of knee Instructions: DI for Power Cyst Activity Restrictions/Additional Instructions: *You have been diagnosed with [right leg pain, newly discovered Power cyst. Your history and physical exam are very reassuring and there is no evidence of infection or DVT. Ultrasound demonstrates no DVT and does suggest that there is a Power cyst. *What to do: *Please continue to take your regular medications as directed. [ ] New medication prescriptions sent to your pharmacy: [ ] [ ] New medication written as a paper prescription [ x] No new medications given *Please follow up with your primary care provider in 2-3 days, call for an appointment. Let them know you were seen in the Emergency Department and that we ask that you be seen in follow up. We will electronically transmit a record of today's note if your PCP is in our system *If you do not have a primary care provider please contact the [facility] Resource line at [phone]. They will ask some questions about your medical history and help get you set up with a doctor in the community. *Return to Emergency Department if you should have any new, worsening or concerning symptoms, such as [fever greater than 101 F, shaking chills, worsening pain, persistent vomiting or other bothersome symptoms] Prescriptions: No Action sertraline 100 mg tablet 100 mg PO DAILY Qty: 90 3RF (DME) Disabled Parking Qty: 1 0RF Rx Instructions: I find this patient to be medically disabled and qualified for Disabled Parking as indicated, and signed, on the Accompanying Disabled Parking Application for Individuals (DME) Battery Powered Lift Qty: 1 0RF Dose Instruction: As directed Rx Instructions: Use daily as directed for transfers to and from bed (DME) Power Chair tall Qty: 1 0RF Dose Instruction: As directed Rx Instructions: As directed for patient care with activities of daily living. Chair needs to tilt foreword and tilt backwards for patient care. Pt is 6 feet tall and will need to fit height. (DME) Semi-electric hospital bed Qty: 1 0RF Dose Instruction: As directed Rx Instructions: Semi-electric hospital bed to permit transfers to wheelchair and to attach traction equipment. Must be large enough and long enough to accommodate his height and weight. EDEN: 99 months (DME) Shower Chair Qty: 1 0RF Rx Instructions: As directed for patient care with activities of daily living. Chair needs to tilt foreword and tilt backwards for patient care. Pt is 6 feet tall and will need to fit height. baclofen 5 mg tablet 5 mg PO DAILY 0RF Botox 100 unit recon soln 200 unit IM ONCE 0RF Referrals: Nargis Fernandez DO [Primary Care Provider] -
== END 2021-10-07 15:02 | disposition home or self-care (01) ==
PROVIDERS: Emergency Provider Emergency Medicine; PCP Family Medicine
DX: M71.21 Synovial cyst of popliteal space [Baker], right knee (principal); Z87.891 Personal history of nicotine dependence
CPT/HCPCS: 93971; 99281; 99284

== ENCOUNTER → 2021-10-29 14:25 | Outpatient (CLI) | payer MEDICAID, OTHER, SELFPAY ==
[2020-01-18 05:28] VITALS: BMI 23.4
[2020-01-21 09:10] VITALS: PULSE 63; RESP 18; O2SAT 100
--- NOTE | 2021-10-29 14:27 | DI.RAD.S_ITS ---
PROCEDURE: XR FEMUR RT MIN 2V INDICATIONS: right thigh pain x1 month, no trauma TECHNIQUE: 2 views of the femur were acquired. COMPARISON: None. FINDINGS: Bones: No acute, displaced fracture. Moderate to advanced arthrosis of the right hip with joint space loss and osteophytosis. Small suprapatellar joint effusion. Soft tissues: No suspicious soft tissue calcifications or masses. IMPRESSION: Hip arthrosis as detailed above. Dictated by: Ilan Byrne M.D. on 10/29/2021 at 16:24 Approved by: Ilan Byrne M.D. on 10/29/2021 at 16:25
[2021-10-29 15:27] LABS: Add Manual Diff / Slide Review NO; Basophils Absolute Auto 100 /uL (0-100); Basophils Percent Auto 2.5 % (0-2); Eosinophils Absolute Auto 100 /uL (0-450); Eosinophils Percent Auto 2.8 % (2-4); Hematocrit 35.4 % (41-53); Hemoglobin 12.1 g/dL (13.5-17.5); Lymphocytes Absolute Auto 2300 /uL (1100-4500); Lymphocytes Percent Auto 44.7 % (25-40); Mean Corpuscular HGB Conc 34.1 % (30-36); Mean Corpuscular Hemoglobin 27.8 PG (26-34); Mean Corpuscular Volume 81.4 fL (80-100); Monocytes Absolute Auto 400 /uL (0-900); Monocytes Percent Auto 7.1 % (3-14); Neutrophils Absolute Auto 2200 /uL (1500-7000); Neutrophils Percent Auto 42.9 % (50-75); Platelet Count 393 X10^3/uL (150-400); Red Blood Cell Count 4.35 X10^6/uL (4.5-5.9); Red Cell Distribution Width 13.2 % (11.6-14.8); White Blood Cell Count 5.2 X10^3/uL (4.5-11.0)
[2021-10-29 15:45] LABS: HEMOLYSIS 38 (0-50); Iron 83 ug/dL (49-181)
[2021-10-29 15:55] LABS: Percent Iron Saturation 32 % (20-50); Total Iron Binding Capacity 259 ug/dL (261-462); Transferrin 198 mg/dL (206-381)
[2021-10-29 20:53] LABS: Ferritin 389 ng/mL (18-464)
== END ==
PROVIDERS: PCP Family Medicine; Referring Provider Family Medicine; Visit Provider Family Medicine
DX: M89.8X5 Other specified disorders of bone, thigh (principal); E61.1 Iron deficiency
CPT/HCPCS: 36415; 73552; 82728; 83540; 83550; 85025

== ENCOUNTER 2021-11-22 21:30 | Inpatient (IN) | payer MEDICAID, OTHER, SELFPAY ==
[2020-01-18 05:28] VITALS: BMI 23.4
[2020-01-21 09:10] VITALS: PULSE 63; RESP 18; O2SAT 100
[2021-11-22 21:35] VITALS: BP 106/56; PULSE 129; RESP 25; TEMP 36.2; O2SAT 97
--- NOTE | 2021-11-22 21:39 | DI.RAD.S_ITS ---
PROCEDURE: XR CHEST 1V INDICATIONS: SOB and fever TECHNIQUE: One view of the chest was acquired. COMPARISON: [facility], CR, XR CHEST 1V, 03/13/2020, 22:15. [facility], CR, XR CHEST 1V, 09/02/2020, 15:21. FINDINGS: Surgical changes and devices: None. Lungs and pleura: Hazy opacities are seen at the left mid to lower lung matthew. Blunting of left costophrenic angle is consistent with a small pleural effusion. Mediastinum: Mediastinal contours appear normal. Heart size is normal. Bones and chest wall: No suspicious bony lesions. Overlying soft tissues appear unremarkable. IMPRESSION: Left lower lobe opacities are suspicious for pneumonia. Small left pleural effusion. Dictated by: Yves Shabazz M.D. on 11/23/2021 at 0:09 Approved by: Yves Shabazz M.D. on 11/23/2021 at 0:10
--- NOTE | 2021-11-22 21:44 | ED.GENADULT ---
HPI - General Adult General Chief complaint: Shortness of Breath/Dyspnea Stated complaint: SOB Time Seen by Provider: 11/22/21 21:32 Source: EMS Mode of arrival: EMS History of Present Illness HPI narrative: Patient is a 41-year-old male. Has multiple chronic medical issues. 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 Is not mobile. Has had issues with pneumonia in the past. Two years ago patient needed intubation secondary to pneumonia. He is brought in by EMS for shortness of breath and cough. Patient did receive a nebulizer treatment prior to arrival and he states this did improve his symptoms somewhat. Patient's mother is at bedside. She states that over the past month he has had increasing shortness of breath and coughing however this has worsened over the past 24 hours and specifically over the past couple hours. No fevers. The patient denies any chest pain. He denies any belly pain. There is no change to his neurologic status. Related Data Home Medications Medication Instructions Recorded Confirmed baclofen 5 mg tablet 5 mg PO DAILY 07/20/21 11/22/21 onabotulinumtoxinA 100 unit 200 unit IM ONCE 07/20/21 solution for injection (Botox) ferrous sulfate 325 mg (65 mg 130 mg PO DAILY 10/29/21 11/22/21 iron) tablet Previous Rx's Medication Instructions Recorded Battery Powered Lift #1 ea 03/02/18 Power Chair #1 ea 10/16/18 Semi-electric hospital bed #1 ea 11/17/18 Disabled Parking #1 each 01/15/19 Shower Chair #1 ea 07/04/19 XL mattress for semi-electric #1 ea 10/29/21 hospital bed sertraline 100 mg tablet 150 mg PO DAILY #135 tab 10/29/21 Allergies Allergy/AdvReac Type Severity Reaction Status Date / Time Penicillins [PENICILLINS] Allergy Severe RASH Verified 12/01/20 12:19 Review of Systems Review of Systems ROS Unobtainable: All systems reviewed & are unremarkable except as noted in HPI and below Patient History Medical History Cerebral palsy Depression Difficulty with speech Dysarthria Former smoker Gingivitis Glioma Hemiparesis (~1984) 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 Father No problems noted. Social History marital status: unmarried,single household members: none Smoking Status: Former smoker alcohol intake: never substance use type: marijuana Smoking Status: Former smoker alcohol intake frequency: 0-2 drinks per day Substance Use Type: marijuana Exam Initial Vital Signs Initial Vital Signs: Vital Signs Temperature 97.2 F L 11/22/21 21:35 Pulse Rate 129 H 11/22/21 21:35 Respiratory Rate 25 H 11/22/21 21:35 Blood Pressure 106/56 L 11/22/21 21:35 Pulse Oximetry 97 11/22/21 21:35 Const General: No acute distress and ill appearing [facility] Head: normal to inspection and normocephalic Resp Effort & Inspection: labored, no respiratory distress, no retractions and tachypneic Auscultation: crackles and rhonchi Cardio Rate: tachycardic Rhythm: regular rhythm GI Inspection: normal to inspection Palpation: soft Skin General: no rashes or lesions noted Neuro Other: Right-sided hemiparesis that is baseline. He does have dysarthria issues which are also baseline for him. It does make it somewhat difficult for him to express himself but with some effort it is possible. Extrem Other: Right-side hemiparesis with some swelling of his right side but this is baseline. Psych Appearance: grossly normal and well kempt Course Orders Ordered: ED Orders 11/22/21 21:30 COVID19 -Nasal swab/Pre-Proc Stat Complete Blood Count AUTO DIFF Stat Comprehensive Metabolic Panel Stat Lactate (Lactic Acid) Stat Lipase Stat Procalcitonin Stat 11/22/21 21:38 Blood Culture Stat 11/22/21 21:39 XR chest 1V Stat EKG-12 Lead Stat EKG-12 Lead Stat Measure peak expiratory flow ONCE RT Consult Eval and Treat Now Acetaminophen (Acetaminophen 325 Mg Tablet) 650 mg PO Q6HR PRN PRN Reason: Fever Last Admin: 11/23/21 00:44 Dose: 650 mg Documented by: NANCY Albuterol/Ipratropium (Albuterol/Ipratropium 3 Ml Ampul) 3 ml INH RTQ4HR PRN PRN Reason: Cough/SOB Baclofen (Baclofen 10 Mg Tablet) 5 mg PO DAILY [facility] Enoxaparin Sodium (Enoxaparin 40 Mg/0.4 Ml Syringe) 40 mg SUBCUT DAILY [facility] Ferrous Sulfate (Ferrous Sulfate 325 Mg Tablet) 130 mg PO DAILY [facility] Sodium Chloride (Normal Saline 0.9%) 1,000 mls @ 150 mls/hr IV CONT [facility] Last Admin: 11/22/21 22:26 Dose: 125 mls/hr Documented by: Infusion: 11/22/21 22:14 Dose: 0 mls/hr Documented by: Admin: 11/22/21 22:13 Dose: 150 mls/hr Documented by: AVERY Sodium Chloride (Normal Saline 0.9%) 1,000 mls @ 125 mls/hr IV CONT [facility] Last Infusion: 11/23/21 00:03 Dose: 0 mls/hr Documented by: Admin: 11/22/21 23:19 Dose: 125 mls/hr Documented by: NANCY Sodium Chloride (Normal Saline 0.9%) 1,000 mls @ 100 mls/hr IV CONT [facility] Last Admin: 11/23/21 00:03 Dose: 100 mls/hr Documented by: NANCY Ceftriaxone Sodium 1,000 mg/ (Sodium Chloride) 100 mls @ 200 mls/hr IV BEDTIME [facility] Vancomycin HCl/Dextrose (Vancomycin) 1,500 mg in 300 mls @ 200 mls/hr IV Q12H [facility] Vancomycin HCl (Vancomycin) 1,000 mg in 200 mls @ 150 mls/hr IV Q24H [facility] Stop: 11/23/21 03:19 Ketorolac Tromethamine (Ketorolac 10 Mg Tablet) 10 mg PO Q6HR JOSE MANUEL Stop: 11/26/21 00:00 Last Admin: 11/23/21 00:46 Dose: Not Given Documented by: NANCY Methocarbamol (Methocarbamol 500 Mg Tablet) 500 mg PO Q8HR PRN PRN Reason: Muscle Pain Naloxone HCl (Naloxone 0.4 Mg/Ml Vial) 0.2 mg IV Q2MIN PRN PRN Reason: Opiate Reversal Ondansetron HCl (Ondansetron 4 Mg/2 Ml Inj) 4 mg IV Q8HR PRN PRN Reason: Nausea And Vomiting Prednisone (Prednisone 20 Mg Tablet) 60 mg PO DAILY JOSE MANUEL Stop: 11/26/21 23:44 Last Admin: 11/23/21 00:44 Dose: 60 mg Documented by: NANCY Sennosides (Sennosides 8.6 Mg Tablet) 17.2 mg PO BEDTIME [facility] Sertraline HCl (Sertraline 50 Mg Tablet) 150 mg PO DAILY [facility] Tramadol HCl (Tramadol 50 Mg Tablet) 50 mg PO Q4H PRN PRN Reason: Pain, Moderate (4-6) Vancomycin HCl (Vancomycin Per Pharmacy) 1 request MISC NOW ONE Stop: 11/22/21 23:38 Discontinued Medications Acetaminophen (Acetaminophen 325 Mg Tablet) 650 mg PO Q6HR [facility] Last Admin: 11/23/21 01:06 Dose: Not Given Documented by: NANCY Vancomycin HCl (Vancomycin) 1,000 mg in 200 mls @ 200 mls/hr IV NOW ONE Stop: 11/22/21 23:15 Last Admin: 11/22/21 23:19 Dose: 200 mls/hr Documented by: NANCY Ceftriaxone Sodium 1,000 mg/ (Sodium Chloride) 100 mls @ 200 mls/hr IV NOW ONE Stop: 11/22/21 22:17 Last Infusion: 11/22/21 23:00 Dose: 0 mls/hr Documented by: Admin: 11/22/21 22:25 Dose: 200 mls/hr Documented by: AVERY Vancomycin HCl (Vancomycin) 1,000 mg in 200 mls @ 150 mls/hr IV NOW [facility] Ceftriaxone Sodium 1,000 mg/ (Sodium Chloride) 100 mls @ 200 mls/hr IV NOW ONE Stop: 11/23/21 00:18 Last Admin: 11/23/21 00:45 Dose: 200 mls/hr Documented by: NANCY Vital Signs Vital signs: Vital Signs - 8 hr 11/22/21 21:35 11/22/21 21:58 11/22/21 22:00 Temperature 97.2 F L Pulse Rate 129 H 127 H 126 H Respiratory Rate 25 H Blood Pressure 106/56 L Pulse Oximetry 97 96 97 11/22/21 22:27 Temperature Pulse Rate 125 H Respiratory Rate 28 H Blood Pressure 104/67 Pulse Oximetry 96 Medical Decision Making Medical Records Medical records reviewed: Yes I reviewed the patient's medical records. Lab Data Lab results reviewed: Yes I reviewed the patient's lab results. Result diagrams: 11/22/21 21:30 11/22/21 21:30 Labs: Lab Results 11/22/21 11/22/21 11/22/21 Range/Units 21:30 21:30 21:30 WBC 13.3 H (4.5-11.0) X10^3/uL RBC 4.86 (4.5-5.9) X10^6/uL Hgb 13.3 L (13.5-17.5) g/dL Hct 39.7 L (41-53) % MCV 81.5 (80-100) fL MCH 27.3 (26-34) PG MCHC 33.5 (30-36) % RDW 13.5 (11.6-14.8) % Plt Count 352 (150-400) X10^3/uL Neut % (Auto) 88.5 H (50-75) % Lymph % (Auto) 9.3 L (25-40) % Bladen % (Auto) 1.3 L (3-14) % Eos % (Auto) 0.5 L (2-4) % Baso % (Auto) 0.4 (0-2) % Neut # (Auto) 41960 H (5071-9595) /uL Lymph # (Auto) 1200 (4220-9356) /uL Bladen # (Auto) 200 (0-900) /uL Eos # (Auto) 100 (0-450) /uL Baso # (Auto) 100 (0-100) /uL D-Dimer (<230) ng/mL Sodium 133 L (137-145) mmol/L Potassium 3.5 (3.4-5.1) mmol/L Chloride 99 (98-107) mmol/L Carbon Dioxide 28 (22-32) mmol/L BUN 8 L (9-20) mg/dL Creatinine 0.49 L (0.66-1.25) mg/dL Estimated GFR > 60.0 (>60) mL/min BUN/Creatinine Ratio 16.3 (6-22) Glucose 101 H (70-100) mg/dL Lactate (0.7-2.1) mmol/L Calcium 9.0 (8.4-10.2) mg/dL Magnesium (1.6-2.3) mg/dL Total Bilirubin 0.4 (0.2-1.3) mg/dL AST 28 (17-59) IU/L ALT 14 (<50) IU/L Alkaline Phosphatase 65 (38-126) U/L C-Reactive Protein (<1.0) mg/dL Total Protein 7.3 (6.3-8.2) g/dL Albumin 4.0 (3.5-5.0) g/dL Globulin 3.3 (1.7-4.1) g/dL Albumin/Globulin Ratio 1.2 (1.0-2.8) Lipase 55 (23-300) U/L Procalcitonin 0.88 H (<0.5) ng/mL SARS-CoV-2 (PCR) Negative (Negative) 11/22/21 11/22/21 11/22/21 Range/Units 21:30 21:30 21:30 WBC (4.5-11.0) X10^3/uL RBC (4.5-5.9) X10^6/uL Hgb (13.5-17.5) g/dL Hct (41-53) % MCV (80-100) fL MCH (26-34) PG MCHC (30-36) % RDW (11.6-14.8) % Plt Count (150-400) X10^3/uL Neut % (Auto) (50-75) % Lymph % (Auto) (25-40) % Bladen % (Auto) (3-14) % Eos % (Auto) (2-4) % Baso % (Auto) (0-2) % Neut # (Auto) (3610-3565) /uL Lymph # (Auto) (7024-2036) /uL Bladen # (Auto) (0-900) /uL Eos # (Auto) (0-450) /uL Baso # (Auto) (0-100) /uL D-Dimer (<230) ng/mL Sodium (137-145) mmol/L Potassium (3.4-5.1) mmol/L Chloride (98-107) mmol/L Carbon Dioxide (22-32) mmol/L BUN (9-20) mg/dL Creatinine (0.66-1.25) mg/dL Estimated GFR (>60) mL/min BUN/Creatinine Ratio (6-22) Glucose (70-100) mg/dL Lactate 3.6 H (0.7-2.1) mmol/L Calcium (8.4-10.2) mg/dL Magnesium 1.6 (1.6-2.3) mg/dL Total Bilirubin (0.2-1.3) mg/dL AST (17-59) IU/L ALT (<50) IU/L Alkaline Phosphatase (38-126) U/L C-Reactive Protein 1.3 H (<1.0) mg/dL Total Protein (6.3-8.2) g/dL Albumin (3.5-5.0) g/dL Globulin (1.7-4.1) g/dL Albumin/Globulin Ratio (1.0-2.8) Lipase (23-300) U/L Procalcitonin (<0.5) ng/mL SARS-CoV-2 (PCR) (Negative) 11/22/21 Range/Units 21:30 WBC (4.5-11.0) X10^3/uL RBC (4.5-5.9) X10^6/uL Hgb (13.5-17.5) g/dL Hct (41-53) % MCV (80-100) fL MCH (26-34) PG MCHC (30-36) % RDW (11.6-14.8) % Plt Count (150-400) X10^3/uL Neut % (Auto) (50-75) % Lymph % (Auto) (25-40) % Bladen % (Auto) (3-14) % Eos % (Auto) (2-4) % Baso % (Auto) (0-2) % Neut # (Auto) (9098-1120) /uL Lymph # (Auto) (8950-4054) /uL Bladen # (Auto) (0-900) /uL Eos # (Auto) (0-450) /uL Baso # (Auto) (0-100) /uL D-Dimer 501 H (<230) ng/mL Sodium (137-145) mmol/L Potassium (3.4-5.1) mmol/L Chloride (98-107) mmol/L Carbon Dioxide (22-32) mmol/L BUN (9-20) mg/dL Creatinine (0.66-1.25) mg/dL Estimated GFR (>60) mL/min BUN/Creatinine Ratio (6-22) Glucose (70-100) mg/dL Lactate (0.7-2.1) mmol/L Calcium (8.4-10.2) mg/dL Magnesium (1.6-2.3) mg/dL Total Bilirubin (0.2-1.3) mg/dL AST (17-59) IU/L ALT (<50) IU/L Alkaline Phosphatase (38-126) U/L C-Reactive Protein (<1.0) mg/dL Total Protein (6.3-8.2) g/dL Albumin (3.5-5.0) g/dL Globulin (1.7-4.1) g/dL Albumin/Globulin Ratio (1.0-2.8) Lipase (23-300) U/L Procalcitonin (<0.5) ng/mL SARS-CoV-2 (PCR) (Negative) Imaging Data Chest x-ray: Radiologist's Impression: [place] [address] XRay Report Signed Patient: Jonnie Christopher MR#: [id number] : 1980 Acct:[id number] Age/Sex: 41 / M Date of Service: 11/22/21 Loc: [place] [address] Accession Number: [id number] ?? Procedure: XR chest 1V Ordering Provider: Norman Perrin D.O. PROCEDURE:? XR CHEST 1V ? INDICATIONS:? SOB and fever ? TECHNIQUE:? One view of the chest was acquired.? ? COMPARISON:? [facility], CR, XR CHEST 1V, 03/13/2020, 22:15.? [facility], CR, XR CHEST 1V, 09/02/2020, 15:21. ? FINDINGS:? ? Surgical changes and devices:? None.? ? Lungs and pleura:? Hazy opacities are seen at the left mid to lower lung matthew.? Blunting of left costophrenic angle is consistent with a small pleural effusion. ? Mediastinum:? Mediastinal contours appear normal.? Heart size is normal.? ? Bones and chest wall:? No suspicious bony lesions.? Overlying soft tissues appear unremarkable.? ? IMPRESSION:? Left lower lobe opacities are suspicious for pneumonia.? Small left pleural effusion. ? ? Dictated by: Yves Shabazz M.D. on 11/23/2021 at 0:09 ? ? Approved by: Yves Shabazz M.D. on 11/23/2021 at 0:10 ECG Data Attestation: I personally reviewed and interpreted this ECG as follows: Interpretation: Sinus tachycardia Ventricular rate 125 Normal axis Normal QRS Normal QTC Nonspecific ST T wave changes MDM Narrative Medical decision making narrative: Patient has chronic medical issues. Arrived tachycardic. Is not febrile. Does have leukocytosis. Elevated procalcitonin. Elevated lactate. Chest x-ray shows left-sided pneumonia. Antibiotics ordered soon as his white blood cell count in his labs and chest x-ray were few bowl. 30 cc/kilogram of fluids was not administered secondary to his prior respiratory status and swelling and need for intubation. He was not hypoxic. He was not dehydrated in any way given his presentation. Review of his prior notes show that he did have a tracheal aspirate culture which showed MRSA. It was resistant to Cipro and Levaquin. Patient was given Rocephin and vancomycin here in the ER. Blood cultures were obtained. Discussed the need for admission with the patient and his mother at bedside. They expressed understanding. Discussed the case with VIKI Michaels the night hospitalist to expressed understanding and agreement as well. Discharge Plan Departure Patient Disposition: Admitted As Inpatient Clinical Impression: Pneumonia, Hypoxia Admit Date/Time: 11/22/21 22:29 Admit Provider: Mckayla Michaels
[2021-11-22 21:54] LABS: COVID19 -Nasal RAPID Negative (Negative)
[2021-11-22 21:58] VITALS: PULSE 127; O2SAT 96
[2021-11-22 22:00] VITALS: PULSE 126; O2SAT 97
[2021-11-22 22:05] LABS: Add Manual Diff / Slide Review NO; Basophils Absolute Auto 100 /uL (0-100); Basophils Percent Auto 0.4 % (0-2); Eosinophils Absolute Auto 100 /uL (0-450); Eosinophils Percent Auto 0.5 % (2-4); Hematocrit 39.7 % (41-53); Hemoglobin 13.3 g/dL (13.5-17.5); Lymphocytes Absolute Auto 1200 /uL (1100-4500); Lymphocytes Percent Auto 9.3 % (25-40); Mean Corpuscular HGB Conc 33.5 % (30-36); Mean Corpuscular Hemoglobin 27.3 PG (26-34); Mean Corpuscular Volume 81.5 fL (80-100); Monocytes Absolute Auto 200 /uL (0-900); Monocytes Percent Auto 1.3 % (3-14); Neutrophils Absolute Auto 11700 /uL (1500-7000); Neutrophils Percent Auto 88.5 % (50-75); Platelet Count 352 X10^3/uL (150-400); Red Blood Cell Count 4.86 X10^6/uL (4.5-5.9); Red Cell Distribution Width 13.5 % (11.6-14.8); White Blood Cell Count 13.3 X10^3/uL (4.5-11.0)
[2021-11-22 22:06] LABS: Lactate (Lactic Acid) 3.6 mmol/L (0.7-2.1)
[2021-11-22 22:07] LABS: Alanine Aminotransferase 14 IU/L (<50); Albumin Globulin Ratio 1.2 (1.0-2.8); Alkaline Phosphatase 65 U/L (38-126); Aspartate Aminotransferase 28 IU/L (17-59); BUN Creatinine Ratio 16.3 (6-22); Bilirubin Total 0.4 mg/dL (0.2-1.3); Blood Urea Nitrogen 8 mg/dL (9-20); Carbon Dioxide 28 mmol/L (22-32); Chloride 99 mmol/L (98-107); Estimated Glomerular Filt Rate > 60.0 mL/min (>60); Globulin 3.3 g/dL (1.7-4.1); Glucose 101 mg/dL (70-100); HEMOLYSIS < 15 (0-50); Lipase 55 U/L (23-300); Potassium 3.5 mmol/L (3.4-5.1); Sodium 133 mmol/L (137-145); Total Protein 7.3 g/dL (6.3-8.2)
[2021-11-22] MEDS: SODIUM CHLORIDE 0.9% 1,000 ML 150 ML IV (22:13)
[2021-11-22 22:24] LABS: Procalcitonin 0.88 ng/mL (<0.5)
[2021-11-22] MEDS: cefTRIAXone 1,000 MG in SODIUM CHLORIDE 0.9% 100 ML 200 ML IV (22:25)
[2021-11-22] MEDS: SODIUM CHLORIDE 0.9% 1,000 ML 125 ML IV ×2 (22:26→23:19)
[2021-11-22 22:27] VITALS: BP 104/67; PULSE 125; RESP 28; O2SAT 96
--- NOTE | 2021-11-22 22:49 | PC.NURSE ---
2220 red, nonblanchable, macerated area to coccyx on exam, area cleaned and left open to air for MD exam
[2021-11-22] MEDS: VANCOMYCIN 1,000 MG/200 ML PIGGYBACK 200 MG IV (23:19)
[2021-11-22 23:45] VITALS: BP 110/78; PULSE 123; RESP 28; TEMP 38; O2SAT 90
[2021-11-22 23:50] VITALS: BMI 25.4
[2021-11-22 23:59] LABS: Reflexed Lactate in 2 Hours Y
[2021-11-23] VITALS (14 sets, daily range): BP systolic 102–122; BP diastolic 54–93; PULSE 106–123; RESP 18–28; TEMP 37.3–38.4; O2SAT 90–98
[2021-11-23] MEDS: SODIUM CHLORIDE 0.9% 1,000 ML 100 ML IV ×2 (00:03→11:39)
[2021-11-23 00:08] LABS: Magnesium 1.6 mg/dL (1.6-2.3)
[2021-11-23 00:11] LABS: C-Reactive Protein Quant 1.3 mg/dL (<1.0)
[2021-11-23] MEDS: predniSONE 20 MG TABLET 60 MG PO ×2 (00:44→10:51)
[2021-11-23] MEDS: ACETAMINOPHEN 325 MG TABLET 650 MG PO (00:44)
[2021-11-23] MEDS: cefTRIAXone 1,000 MG in SODIUM CHLORIDE 0.9% 100 ML 200 ML IV (00:45)
[2021-11-23 01:03] LABS: Lactate 2HR (Lactic Acid Rflx) 2.7 mmol/L (0.7-2.1)
[2021-11-23 01:13] LABS: D Dimer 501 ng/mL (<230)
[2021-11-23] MEDS: VANCOMYCIN 1,000 MG/200 ML PIGGYBACK 150 MG IV (02:15)
--- NOTE | 2021-11-23 02:52 | PC.NURSE ---
Pt arrived at 2305 from the ED via stretcher with his caregiver/mother. Pt is A/O and on RA, however tends to desaturate with lots of movement. Pt was moved to bed via slider board and after being rolled from side to side he was placed on 2L NC d/t O2 sat around 89-90%. Pt denies any pain but is SOB while laying in bed and does not tolerate laying flat well at this time. Pt had an order for a Jones catheter but after two attempts with this RN and an REHABILITATION CASEWORKER, both were unable to place one. Pt states he can use a urinal. Pt resting in bed with call light within reach and bed in the lowest and locked position.
[2021-11-23] MEDS: ACETAMINOPHEN 650 MG SUPP PR (04:31)
[2021-11-23 04:56] LABS: Influenza A - CEPHEID Flu A NEGATIVE (NEGATIVE); Influenza B - CEPHEID Flu B NEGATIVE (NEGATIVE)
--- NOTE | 2021-11-23 05:07 | PM.HP.1 ---
History of Present Illness History of Present Illness Date Patient Seen: 11/22/21 Time Patient Seen: 23:48 Chief complaint: SOB Narrative: Mr. 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 Two years ago patient needed intubation secondary to Supraglottic Laryngitis and respiratory Failure .? He is brought in tonight by EMS for shortness of breath and cough.? Patient did receive a nebulizer treatment prior to arrival and he states this did improve his symptoms somewhat.? Patient denies fevers, body aches, chills, chest pain, abd pain, nausea, vomiting, nasal drainage, sore throat, rash, difficulty swallowing, difficulty managing secretions. There is no change to his neurologic status. Patient's vitals upon admit temp 97.2?, BP 104/67, patient is tachycardic HR 125, tachypneic RR 28, initial O2 saturation 96% on 10 L nasal cannula, once to the floor patient's O2 saturation is 97% on 2 L nasal cannula. Patient met SIRS criteria in ED. SOFA: 2White count 13.3, neut % 88.5 %,neut # 11,700, procalcitonin is 0.88, lactate 3.6. Patient's sodium 133, BUN 8, creatinine 0.49-baseline, glucose 101. Patient's chest x-ray demonstrated left lower lobe opacities are suspicious for pneumonia.? Small left pleural effusion. EKG, I personally reviewed and interpreted this ECG: Sinus tachycardia with a ventricular rate of [address] and T-wave changes. Dr. Perrin in ED started the patient on vancomycin and Rocephin based on previous 2019 throat culture-sensitivity for MRSA. As the patients history demonstrated significant culture resistance and respiratory compromise resulting in intubation in the setting of pneumonia. Patient admitted for acute respiratory failure with hypoxia, sepsis, secondary to left lower lobe pneumonia. 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 Father No problems noted. Social History: household members none Prior Living Arrangements Apartment/Condo Lives alone but has 24 hr care givers & his mother is also home care associate. Safety & Behavioral: Feels Safe in Current Yes Environment Been Physically Hurt or No Threatened By a Person Suicidal Ideation Description None Suicide Plan Description No Plan Tobacco & Substance use: Smoking Status Former smoker alcohol intake never alcohol intake frequency 0-2 drinks per day Substance Use Type marijuana Meds Home Medications and Allergies Home Medications Medication Instructions Recorded Confirmed Type Battery Powered Lift #1 ea 03/02/18 11/22/21 Rx Power Chair #1 ea 10/16/18 11/22/21 Rx Semi-electric hospital bed #1 ea 11/17/18 11/22/21 Rx Disabled Parking #1 each 01/15/19 11/22/21 Rx Shower Chair #1 ea 07/04/19 11/22/21 Rx baclofen 5 mg tablet 5 mg PO DAILY 07/20/21 11/22/21 History onabotulinumtoxinA 100 unit 200 unit IM ONCE 07/20/21 11/23/21 History solution for injection (Botox) XL mattress for semi-electric #1 ea 10/29/21 11/22/21 Rx hospital bed ferrous sulfate 325 mg (65 mg 130 mg PO DAILY 10/29/21 11/22/21 History iron) tablet sertraline 100 mg tablet 150 mg PO DAILY #135 tab 10/29/21 11/22/21 Rx Allergies Allergy/AdvReac Type Severity Reaction Status Date / Time Penicillins [PENICILLINS] Allergy Severe RASH Verified 12/01/20 12:19 Review of Systems Review of Systems Narrative: All 12 point systems reviewed with the patient and are negative except otherwise documented. Exam Vital Signs (past 8 hours): - 11/22/21 21:35 11/22/21 21:58 11/22/21 22:00 Temperature 97.2 F L Pulse Rate 129 H 127 H 126 H Respiratory Rate 25 H Blood Pressure 106/56 L Pulse Oximetry 97 96 97 11/22/21 22:27 11/22/21 23:45 11/23/21 00:26 Temperature 100.4 F H Pulse Rate 125 H 123 H 123 H Respiratory Rate 28 H 28 H 28 H Blood Pressure 104/67 110/78 Pulse Oximetry 96 90 L 90 L 11/23/21 00:44 11/23/21 01:52 11/23/21 03:00 Temperature 100.8 F H 99.8 F H Pulse Rate Respiratory Rate Blood Pressure Pulse Oximetry 96 11/23/21 04:00 11/23/21 04:31 Temperature 101.2 F H 101.2 F H Pulse Rate 118 H Respiratory Rate 28 H Blood Pressure 102/54 L Pulse Oximetry 94 Oxygen Delivery Method Nasal Cannula Oxygen Flow Rate 2 Narrative Exam Narrative: General: Patient is a well-developed, well-nourished male, in no distress at this time. HEENT: Normocephalic, atraumatic, extraocular muscles intact, oral pharynx is clear and mucous membranes are dry. Dysarthria-base line for patient. Neck is supple and symmetric, trachea is midline, no adenopathy, no thyroid enlargement, nontender, no masses palpated. Negative for JVD Chest: Normal AP diameter and contour without kyphoscoliosis, no nasal flaring, retractions, or tachypneic labored breathing. Lungs: Auscultation of all lung matthew are decreased coarse with rales and rhonchi Cardio: Tachycardic rate and rhythm without murmur, rubs, or gallops, no carotid bruit, no cardiac pulsations present. Abdomen: Soft nontender, negative for organomegaly, or masses. Bowel sounds are hyperactive present in all 4 quadrants without guarding or rebound, no CVA tenderness. Musculoskeletal: Muscle strength and tone are equal within normal limits, no deformity, crepitus, effusions, cyanosis, clubbing or edema present. Full range of motion intact radial and pedal pulses are normal. Skin: Warm dry and intact without rashes, ulcerations or petechiae. Neuro: Alert and orientated x3, Right-sided hemiparesis that is baseline.? He does have dysarthria issues which are also baseline for him.? It does make it somewhat difficult for him to express himself but with some effort it is possible. Psych: Patient has a well-kept appearance, appropriate affect. Objective Labs Result Diagrams: 11/22/21 21:30 11/22/21 21:30 Labs: Laboratory Results - last 24 hr 11/22/21 11/22/21 11/22/21 21:30 21:30 21:30 WBC 13.3 H RBC 4.86 Hgb 13.3 L Hct 39.7 L MCV 81.5 MCH 27.3 MCHC 33.5 RDW 13.5 Plt Count 352 Neut % (Auto) 88.5 H Lymph % (Auto) 9.3 L [place] % (Auto) 1.3 L Eos % (Auto) 0.5 L Baso % (Auto) 0.4 Neut # (Auto) 16118 H Lymph # (Auto) 1200 [place] # (Auto) 200 Eos # (Auto) 100 Baso # (Auto) 100 D-Dimer Sodium 133 L Potassium 3.5 Chloride 99 Carbon Dioxide 28 BUN 8 L Creatinine 0.49 L Estimated GFR > 60.0 BUN/Creatinine Ratio 16.3 Glucose 101 H Lactate Calcium 9.0 Magnesium Total Bilirubin 0.4 AST 28 ALT 14 Alkaline Phosphatase 65 C-Reactive Protein Total Protein 7.3 Albumin 4.0 Globulin 3.3 Albumin/Globulin Ratio 1.2 Lipase 55 Procalcitonin 0.88 H SARS-CoV-2 (PCR) Negative 11/22/21 11/22/21 11/22/21 21:30 21:30 21:30 WBC RBC Hgb Hct MCV MCH MCHC RDW Plt Count Neut % (Auto) Lymph % (Auto) [place] % (Auto) Eos % (Auto) Baso % (Auto) Neut # (Auto) Lymph # (Auto) [place] # (Auto) Eos # (Auto) Baso # (Auto) D-Dimer Sodium Potassium Chloride Carbon Dioxide BUN Creatinine Estimated GFR BUN/Creatinine Ratio Glucose Lactate 3.6 H Calcium Magnesium 1.6 Total Bilirubin AST ALT Alkaline Phosphatase C-Reactive Protein 1.3 H Total Protein Albumin Globulin Albumin/Globulin Ratio Lipase Procalcitonin SARS-CoV-2 (PCR) 03/06/22 03/07/22 21:30 00:30 WBC RBC Hgb Hct MCV MCH MCHC RDW Plt Count Neut % (Auto) Lymph % (Auto) [place] % (Auto) Eos % (Auto) Baso % (Auto) Neut # (Auto) Lymph # (Auto) [place] # (Auto) Eos # (Auto) Baso # (Auto) D-Dimer 501 H Sodium Potassium Chloride Carbon Dioxide BUN Creatinine Estimated GFR BUN/Creatinine Ratio Glucose Lactate 2.7 H Calcium Magnesium Total Bilirubin AST ALT Alkaline Phosphatase C-Reactive Protein Total Protein Albumin Globulin Albumin/Globulin Ratio Lipase Procalcitonin SARS-CoV-2 (PCR) Assessment & Plan Assessment & Plan narrative: Please note the below laboratory / V/S results are from a previous visit, I am unsure as to how I pasted this into the note but they Incorrect for this admit, please disregard. Meds Home Medications and Allergies Home Medications ?Medication ?Instructions ?Recorded ?Confirmed ?Type Battery Powered Lift #1 ea 03/02/18 11/14/19 Rx latanoprost 1 drp EYE-BOTH BEDTIME 09/18/18 11/14/19 History Power Chair #1 ea 10/16/18 11/14/19 Rx Semi-electric hospital bed #1 ea 11/17/18 11/14/19 Rx Disabled Parking #1 each 01/15/19 11/14/19 Rx Shower Chair #1 ea 07/04/19 11/14/19 Rx sertraline 100 mg tablet 100 mg PO DAILY #30 tab 10/09/19 11/14/19 Rx sulfamethoxazole 800 1 tab PO BID #26 tab 11/14/19 11/14/19 Rx mg-trimethoprim 160 mg tablet ? levofloxacin [Levaquin] 750 mg PO DAILY #7 tab 01/03/20 ? Rx Allergies Allergy/AdvReac Type Severity Reaction Status Date / Time Penicillins [PENICILLINS] Allergy Severe RASH Verified 11/14/19 15:48 - ? 01/17/20 22:32 01/17/20 23:05 01/18/20 03:38 Temperature 98.3 F ? ? Pulse Rate 103 H 99 H 126 H Respiratory Rate 20 21 16 Blood Pressure 135/102 H ? ? Blood Pressure [Left Arm] ? 153/97 H 117/89 Pulse Oximetry 96 96 98 Oxygen Delivery Method? Mechanical Ventilation Laboratory Results - last 24 hr ? 01/17/20 01/17/20 01/17/20 ? 22:55 22:55 22:55 WBC ?14.2 H ? ? RBC ?5.02 ? ? Hgb ?13.8 ? ? Hct ?40.2 L ? ? MCV ?80.1 ? ? MCH ?27.5 ? ? MCHC ?34.3 ? ? RDW ?16.1 H ? ? Plt Count ?279 ? ? Neut % (Auto) ?77.9 H ? ? Lymph % (Auto) ?16.7 L ? ? [place] % (Auto) ?4.1 ? ? Eos % (Auto) ?0.8 L ? ? Baso % (Auto) ?0.5 ? ? Neut # (Auto) ?25932 H ? ? Lymph # (Auto) ?2400 ? ? [place] # (Auto) ?600 ? ? Eos # (Auto) ?100 ? ? Baso # (Auto) ?100 ? ? ABG pH ? ? ? ABG pCO2 ? ? ? ABG pO2 ? ? ? ABG HCO3 ? ? ? ABG Total CO2 ? ? ? ABG O2 Saturation ? ? ? ABG Base Excess ? ? ? FiO2 ? ? ? Sodium ? ?135 L ? Potassium ? ?4.0 ? Chloride ? ?102 ? Carbon Dioxide ? ?24 ? BUN ? ?8 L ? Creatinine ? ?0.50 L ? Estimated GFR ? ?> 60.0 ? BUN/Creatinine Ratio ? ?16.0 ? Glucose ? ?93 ? Lactate ? ? ? Calcium ? ?9.3 ? Ferritin ? ?305 ? Total Bilirubin ? ?0.6 ? AST ? ?20 ? ALT ? ?9 ? Alkaline Phosphatase ? ?80 ? Total Creatine Kinase ? ?34 L ? CK-MB (CK-2) ? ?TNP ? CK-MB (CK-2) Rel Index ? ?TNP ? Troponin I ? ?< 0.012 ? C-Reactive Protein ? ?4.1 H ? NT-Pro-B Natriuret Pep ? ?573 H ? Total Protein ? ?7.5 ? Albumin ? ?4.3 ? Globulin ? ?3.2 ? Albumin/Globulin Ratio ? ?1.3 ? Lipase ? ?700 H ? Procalcitonin ? ? ?< 0.05 COVID-19 PCR ? 04/30/20 04/30/20 04/30/20 ? 22:55 22:55 22:55 WBC ? ? ? RBC ? ? ? Hgb ? ? ? Hct ? ? ? MCV ? ? ? MCH ? ? ? MCHC ? ? ? RDW ? ? ? Plt Count ? ? ? Neut % (Auto) ? ? ? Lymph % (Auto) ? ? ? [place] % (Auto) ? ? ? Eos % (Auto) ? ? ? Baso % (Auto) ? ? ? Neut # (Auto) ? ? ? Lymph # (Auto) ? ? ? [place] # (Auto) ? ? ? Eos # (Auto) ? ? ? Baso # (Auto) ? ? ? ABG pH ? ? ? ABG pCO2 ? ? ? ABG pO2 ? ? ? ABG HCO3 ? ? ? ABG Total CO2 ? ? ? ABG O2 Saturation ? ? ? ABG Base Excess ? ? ? FiO2 ? ? ? Sodium ? ? ? Potassium ? ? ? Chloride ? ? ? Carbon Dioxide ? ? ? BUN ? ? ? Creatinine ? ? ? Estimated GFR ? ? ? BUN/Creatinine Ratio ? ? ? Glucose ? ? ? Lactate ?0.8 ? ? Calcium ? ? ? Ferritin ? ? ? Total Bilirubin ? ? ? AST ? ? ? ALT ? ? ? Alkaline Phosphatase ? ? ? Total Creatine Kinase ? ? ? CK-MB (CK-2) ? ? ? CK-MB (CK-2) Rel Index ? ? ? Troponin I ? ? ? C-Reactive Protein ? ? ? NT-Pro-B Natriuret Pep ? ? ? Total Protein ? ? ? Albumin ? ? ? Globulin ? ? ? Albumin/Globulin Ratio ? ? ? Lipase ? ? ? Procalcitonin ? ? ? COVID-19 PCR ? ?Cancelled ?Negative ? 01/18/20 ? 04:07 WBC ? RBC ? Hgb ? Hct ? MCV ? MCH ? MCHC ? RDW ? Plt Count ? Neut % (Auto) ? Lymph % (Auto) ? [place] % (Auto) ? Eos % (Auto) ? Baso % (Auto) ? Neut # (Auto) ? Lymph # (Auto) ? [place] # (Auto) ? Eos # (Auto) ? Baso # (Auto) ? ABG pH ?7.35 ABG pCO2 ?40.4 ABG pO2 ?97 ABG HCO3 ?23 ABG Total CO2 ?24 ABG O2 Saturation ?97 ABG Base Excess ?-3.0 L FiO2 ?30 Sodium ? Potassium ? Chloride ? Carbon Dioxide ? BUN ? Creatinine ? Estimated GFR ? BUN/Creatinine Ratio ? Glucose ? Lactate ? Calcium ? Ferritin ? Total Bilirubin ? AST ? ALT ? Alkaline Phosphatase ? Total Creatine Kinase ? CK-MB (CK-2) ? CK-MB (CK-2) Rel Index ? Troponin I ? C-Reactive Protein ? NT-Pro-B Natriuret Pep ? Total Protein ? Albumin ? Globulin ? Albumin/Globulin Ratio ? Lipase ? Procalcitonin ? COVID-19 PCR ? Assessment & Plan Assessment & Plan narrative:Mr. 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 Patient being admitted for acute respiratory failure with hypoxia, sepsis secondary to pneumonia of left lower lobe and mild hyponatremia. 1. Acute respiratory failure with hypoxia, sepsis, secondary to left lower lobe pneumonia, with mild hyponatremia, acute, present on admission -suspect this to be community-acquired pneumonia, patient's respiratory status quickly improved patient is currently satting at 97% on 2 L nasal cannula but will desat significantly into the 80s upon any movement or in attempt to use the bedpan. -Monitor for worsening respiratory failure due to: Two years ago patient needed intubation secondary to Supraglottic Laryngitis and respiratory Failure.? -patient met SIRS criteria in ED, sofa score:4 -Jones ordered -Jones ordered due to patient's significant desaturation into the low 80s with any of movement or uses the bedpan. -sodium 133 -NS at 100cc/hr -Antiemetics, pain control, fever control -ordered vancomycin And Rocephin -respiratory consult: Nebulizers DuoNeb q.4 hours for cough or shortness of breath -prednisone 60 mg q.day x4 days -aspiration precautions -recommend speech eval for tomorrow 2. Depression, chronic, present on admission -continue sertraline 3. History of glioma brain tumor with residual hemiparesis, chronic, in the setting of cerebral palsy, chronic, present on admission- stable. -patient has minimal motion of his right upper extremity, rigidity or bilateral lower extremities, uses a power wheelchair for mobilization. -patient has 24 hour non professional caregiver support at home -PT consult -Swallow eval -fall precautions -continue baclofen 4, Anemia, chronic, present on admission -continue ferrous sulfate -monitor H&H Code status:? FULL CODE. Surrogate decision maker: Mother Marianela Paulino COVID PCR:Negative COVID vaccination: Unvaccinated DVT/VTE prophylaxis: Lovenox and SCDs Disposition: I have utilized all available immediate resources to obtain, update, or review the patient's current medications. I confirmed that the patient's advanced care plan is present, Code status is documented and/or surrogate decision maker is listed in the patient's medical record. Time Spent With Patient Critical Care time: I spent a total of [] minutes of critical care time on this patient's care today; this time is exclusive of procedural time. Scores SOFA PaO2/FIO2: < 100 mmHg Platelets: >= 150 Bilirubin: < 1.2 mg/dL Hypotension: MAP >= 70 mmHg [place] Coma Scale: 15 Renal: < 1.2 mg/dL SOFA Score: 4
[2021-11-23 05:35] LABS: Add Manual Diff / Slide Review NO; Basophils Absolute Auto 0 /uL (0-100); Basophils Percent Auto 0.1 % (0-2); Eosinophils Absolute Auto 0 /uL (0-450); Hematocrit 35.6 % (41-53); Hemoglobin 11.7 g/dL (13.5-17.5); Lymphocytes Absolute Auto 600 /uL (1100-4500); Lymphocytes Percent Auto 3.1 % (25-40); Mean Corpuscular HGB Conc 32.7 % (30-36); Mean Corpuscular Hemoglobin 26.5 PG (26-34); Mean Corpuscular Volume 81.1 fL (80-100); Monocytes Absolute Auto 700 /uL (0-900); Monocytes Percent Auto 3.2 % (3-14); Neutrophils Absolute Auto 19100 /uL (1500-7000); Neutrophils Percent Auto 93.6 % (50-75); Platelet Count 306 X10^3/uL (150-400); Red Blood Cell Count 4.39 X10^6/uL (4.5-5.9); Red Cell Distribution Width 13.4 % (11.6-14.8); White Blood Cell Count 20.5 X10^3/uL (4.5-11.0)
[2021-11-23 05:42] LABS: Alanine Aminotransferase 13 IU/L (<50); Albumin 3.4 g/dL (3.5-5.0); Albumin Globulin Ratio 1.1 (1.0-2.8); Alkaline Phosphatase 56 U/L (38-126); Aspartate Aminotransferase 22 IU/L (17-59); Bilirubin Total 0.4 mg/dL (0.2-1.3); Blood Urea Nitrogen 8 mg/dL (9-20); Calcium 8.4 mg/dL (8.4-10.2); Carbon Dioxide 22 mmol/L (22-32); Chloride 104 mmol/L (98-107); Estimated Glomerular Filt Rate > 60.0 mL/min (>60); Globulin 3.1 g/dL (1.7-4.1); Glucose 109 mg/dL (70-100); HEMOLYSIS < 15 (0-50); Potassium 3.5 mmol/L (3.4-5.1); Sodium 134 mmol/L (137-145); Total Protein 6.5 g/dL (6.3-8.2)
[2021-11-23 05:45] LABS: Lactate (Lactic Acid) 2.4 mmol/L (0.7-2.1)
[2021-11-23 05:49] LABS: NT-proBNP (BNP-Adult 18+) 950 pg/mL (<125)
[2021-11-23 07:28] LABS: Reflexed Lactate in 2 Hours Y
[2021-11-23 09:11] LABS: Lactate 2HR (Lactic Acid Rflx) 2.3 mmol/L (0.7-2.1)
--- NOTE | 2021-11-23 09:21 | PC.NURSE ---
Patient noted with a weak cough this morning, oral care and oral suctioning provided. Patient not managing his oral secretions at this time. Will keep NPO until seen by ST for swallow eval. Message left for Dr. Gupta re po meds not given this morning. Will continue to follow.
--- NOTE | 2021-11-23 09:24 | CM.DANOTE ---
DCP: Case received, EMR reviewed. Introduced self and role. Was not able to get much information from patient due to his decreased cognition, but was able to obtain information from EMR and nurse, Jose Cruz. Completed DCP assessment base upon information currently available. Patient is a 41 year old male who admitted yesterday evening to the care of the hospitalist. PCP: Dr. Fernandez Payer: Medicaid/[facility] Patient came to the hospital via ambulance secondary to having increased shortness of breath. Patient had been using nebulizer at home with minimal relief. Patient has history of right-sided hemiparesis secondary to brain tumor as a child. He is immobile, has 24 hour caregivers at home, along with his mother, Marianela Paulino, as support. He is a hoier lift in the home according to notes. Patient holds current diagnosis of pneumonia. He is currently on oxygen. Met with patient briefly, He was awake, able to say one or two words at a time. Placed name of this logistics planner on the board. As stated previously, patient has 24 hour caregivers in the home, and is bed bound, with hoier. He is full care at home. P: DCP to continue to follow for any needs. Patient should be able to go home when he is deemed medically stable. Joan Polanco RN/Diesel Maintenance Electrician Discharge Planning/Care Management CM Discharge Assessment Start: 11/23/21 09:18 Freq: Status: Active Protocol: Document 11/22/21 23:26 (Rec: 11/23/21 09:24 [id number]) Discharge Planning Assessment Assigned [employer] Joan Polanco RN/Brian Polanco Advance Directives? No Advance Directives on File No History Provided By Patient,Parents,Medical Record Prior Living Arrangements Apartment/Condo Household Members none Type of transporation used prior to Relies on Others admit Independent with ADL's No Is patient alert and oriented? No: To self Needs Assistance With Bathing,Eating,Grooming,Meal Prep,Toileting,Managing Medications,Home Chores / Shopping Comment Private caregivers. Comment Patient is mostly bedbound/ wheelchair bound at baseline with neurological issues from previous brain tumor. Has home hoier Comment Medicaid information likely a barrier to SNF. But patient has home support, [employer] caregivers Discharge Plan Home Transportation Arrangement BLS Referrals Initiated None needed Whiteboard Updated in Patient Room with Yes name and ext. # of [employer]hanger Pipe Review Status In Process Next Review Type Continued Stay Review Document 11/23/21 09:18 (Rec: 11/23/21 09:24 [id number]) Discharge Planning Assessment Advance Directives? No Advance Directives on File No History Provided By Patient,Parents,Medical Record Prior Living Arrangements Apartment/Condo Household Members none Comment Patient is mostly bedbound/ wheelchair bound at baseline with neurological issues from previous brain tumor. Has home hoier Patient/Family Preference Home with Home Health Comment Medicaid information likely a barrier to SNF. But patient has home support, [employer] caregivers Discharge Plan Home Transportation Arrangement Pending d/c plan of home vs SNF
[2021-11-23] MEDS: ENOXAPARIN 40 MG/0.4 ML SYRINGE SUBCUT (09:31)
[2021-11-23] MEDS: VANCOMYCIN 1,250 MG/250 ML PIGGYBACK 250 MG IV ×2 (09:31→18:12)
--- NOTE | 2021-11-23 14:22 | P.PN_ITS ---
Subjective Subjective Date Patient Seen: 11/23/21 Time Patient Seen: 14:23 Interval history: Still with cough, feeling improved and less short of breath. Exam Vital Signs (past 8 hours): - 11/23/21 07:40 11/23/21 13:15 11/23/21 13:43 Temperature 99.1 F Pulse Rate 111 H Respiratory Rate 22 24 Blood Pressure 122/80 Pulse Oximetry 96 98 96 Oxygen Delivery Method Room Air Oxygen Flow Rate 0 Narrative Exam Narrative: General:? Patient is a well-developed, well-nourished male, in no distress at this time. HEENT:? Normocephalic, atraumatic, extraocular muscles intact, oral pharynx is clear and mucous membranes are dry.? Dysarthria-baseline for patient. Neck is supple and symmetric, trachea is midline, neck bends to the left. no adenopathy, no thyroid enlargement, nontender, no masses palpated.? Negative for JVD Chest:? Normal AP diameter and contour without kyphoscoliosis, no nasal flaring, retractions, or tachypneic labored breathing. Lungs:? Auscultation of all lung matthew are decreased coarse with rales and rhonchi Cardio:? Tachycardic rate and rhythm without murmur, rubs, or gallops, no carotid bruit, no cardiac pulsations present. Abdomen:? Soft nontender, negative for organomegaly, or masses.? Bowel sounds are hyperactive present in all 4 quadrants without guarding or rebound, no CVA tenderness. Musculoskeletal:? Muscle strength and tone are equal within normal limits, no deformity, crepitus, effusions, cyanosis, clubbing or edema present.? Full range of motion intact radial and pedal pulses are normal. Skin:? Warm dry and intact without rashes, ulcerations or petechiae.? Neuro:? Alert and orientated x3, Right-sided hemiparesis that is baseline.? He does have dysarthria issues which are also baseline for him.? It does make it somewhat difficult for him to express himself but with some effort it is possible. Psych:? Patient has a well-kept appearance, appropriate affect. Objective Labs Result Diagrams: 11/23/21 05:19 11/23/21 05:19 Labs: Laboratory Results - last 24 hr 11/22/21 11/22/2111/22/22 21:30 21:30 21:30 WBC 13.3 H RBC 4.86 Hgb 13.3 L Hct 39.7 L MCV 81.5 MCH 27.3 MCHC 33.5 RDW 13.5 Plt Count 352 Neut % (Auto) 88.5 H Lymph % (Auto) 9.3 L [place] % (Auto) 1.3 L Eos % (Auto) 0.5 L Baso % (Auto) 0.4 Neut # (Auto) 13216 H Lymph # (Auto) 1200 [place] # (Auto) 200 Eos # (Auto) 100 Baso # (Auto) 100 D-Dimer Sodium 133 L Potassium 3.5 Chloride 99 Carbon Dioxide 28 BUN 8 L Creatinine 0.49 L Estimated GFR > 60.0 BUN/Creatinine Ratio 16.3 Glucose 101 H Lactate Calcium 9.0 Magnesium Total Bilirubin 0.4 AST 28 ALT 14 Alkaline Phosphatase 65 C-Reactive Protein NT-Pro-B Natriuret Pep Total Protein 7.3 Albumin 4.0 Globulin 3.3 Albumin/Globulin Ratio 1.2 Lipase 55 Procalcitonin 0.88 H SARS-CoV-2 (PCR) Negative Influenza A (RT-PCR) Influenza B (RT-PCR) 11/22/21 11/22/21 11/22/21 21:30 21:30 21:30 WBC RBC Hgb Hct MCV MCH MCHC RDW Plt Count Neut % (Auto) Lymph % (Auto) [place] % (Auto) Eos % (Auto) Baso % (Auto) Neut # (Auto) Lymph # (Auto) [place] # (Auto) Eos # (Auto) Baso # (Auto) D-Dimer Sodium Potassium Chloride Carbon Dioxide BUN Creatinine Estimated GFR BUN/Creatinine Ratio Glucose Lactate 3.6 H Calcium Magnesium 1.6 Total Bilirubin AST ALT Alkaline Phosphatase C-Reactive Protein 1.3 H NT-Pro-B Natriuret Pep Total Protein Albumin Globulin Albumin/Globulin Ratio Lipase Procalcitonin SARS-CoV-2 (PCR) Influenza A (RT-PCR) Influenza B (RT-PCR) 11/22/21 11/23/21 11/23/21 21:30 00:30 04:10 WBC RBC Hgb Hct MCV MCH MCHC RDW Plt Count Neut % (Auto) Lymph % (Auto) [place] % (Auto) Eos % (Auto) Baso % (Auto) Neut # (Auto) Lymph # (Auto) [place] # (Auto) Eos # (Auto) Baso # (Auto) D-Dimer 501 H Sodium Potassium Chloride Carbon Dioxide BUN Creatinine Estimated GFR BUN/Creatinine Ratio Glucose Lactate 2.7 H Calcium Magnesium Total Bilirubin AST ALT Alkaline Phosphatase C-Reactive Protein NT-Pro-B Natriuret Pep Total Protein Albumin Globulin Albumin/Globulin Ratio Lipase Procalcitonin SARS-CoV-2 (PCR) Influenza A (RT-PCR) Flu a negative Influenza B (RT-PCR) Flu b negative 11/23/21 11/23/21 11/23/21 05:19 05:19 05:19 WBC 20.5 H D RBC 4.39 L Hgb 11.7 L Hct 35.6 L MCV 81.1 MCH 26.5 MCHC 32.7 RDW 13.4 Plt Count 306 Neut % (Auto) 93.6 H Lymph % (Auto) 3.1 L [place] % (Auto) 3.2 Eos % (Auto) 0.0 L Baso % (Auto) 0.1 Neut # (Auto) 51453 H Lymph # (Auto) 600 L [place] # (Auto) 700 Eos # (Auto) 0 Baso # (Auto) 0 D-Dimer Sodium 134 L Potassium 3.5 Chloride 104 Carbon Dioxide 22 BUN 8 L Creatinine 0.42 L Estimated GFR > 60.0 BUN/Creatinine Ratio 19.0 Glucose 109 H Lactate 2.4 H Calcium 8.4 Magnesium Total Bilirubin 0.4 AST 22 ALT 13 Alkaline Phosphatase 56 C-Reactive Protein NT-Pro-B Natriuret Pep 950 H Total Protein 6.5 Albumin 3.4 L Globulin 3.1 Albumin/Globulin Ratio 1.1 Lipase Procalcitonin SARS-CoV-2 (PCR) Influenza A (RT-PCR) Influenza B (RT-PCR) 11/23/21 08:30 WBC RBC Hgb Hct MCV MCH MCHC RDW Plt Count Neut % (Auto) Lymph % (Auto) [place] % (Auto) Eos % (Auto) Baso % (Auto) Neut # (Auto) Lymph # (Auto) [place] # (Auto) Eos # (Auto) Baso # (Auto) D-Dimer Sodium Potassium Chloride Carbon Dioxide BUN Creatinine Estimated GFR BUN/Creatinine Ratio Glucose Lactate 2.3 H Calcium Magnesium Total Bilirubin AST ALT Alkaline Phosphatase C-Reactive Protein NT-Pro-B Natriuret Pep Total Protein Albumin Globulin Albumin/Globulin Ratio Lipase Procalcitonin SARS-CoV-2 (PCR) Influenza A (RT-PCR) Influenza B (RT-PCR) [facility] Medical History Cerebral palsy Depression Difficulty with speech Dysarthria Former smoker Gingivitis Glioma Hemiparesis (~1984) 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 Father No problems noted. Social History marital status: unmarried,single household members: none Smoking Status: Former smoker alcohol intake: never substance use type: marijuana Assessment & Plan Assessment & Plan narrative: Mr. 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 Patient being admitted for acute respiratory failure with hypoxia, sepsis secondary to pneumonia of left lower lobe and mild hyponatremia. 1. Acute respiratory failure with hypoxia, sepsis, secondary to left lower lobe pneumonia, with mild hyponatremia, acute, present on admission -suspect this to be community-acquired pneumonia or possible aspiration pneumonia given history of difficulties with swallow per RASCHEL KNITTING MACHINE OPERATOR, patient's respiratory status quickly improved patient is currently satting at 97% on 2 L nasal cannula but will desat significantly into the 80s upon any movement or in attempt to use the bedpan. -Monitor for worsening respiratory failure due to: Two years ago patient needed intubation secondary to Supraglottic Laryngitis and respiratory Failure.? -patient met SIRS criteria in ED, sofa score:4 -can likely discontinue myrick tomorrow. -continue broad antibiotics pending cultures given history of MRSA infection in the throat a few years ago. -Antiemetics, pain control, fever control -respiratory consult:? Nebulizers DuoNeb q.4 hours for cough or shortness of breath. Appreciate recommendations including compression vest. Do recommend vest as an outpatient through PCP or possibly neurology. -no need for steroids -aspiration precautions per RASCHEL KNITTING MACHINE OPERATOR recommendations. -wean O2 as tolerated, goal O2 90-96% while on supplemental oxygen. 2. Depression, chronic, present on admission -continue sertraline 3. History of glioma brain tumor with residual hemiparesis, chronic, in the setting of cerebral palsy, chronic, present on admission- stable. -patient has minimal motion of his right upper extremity, rigidity or bilateral lower extremities, uses a power wheelchair for mobilization. -patient has 24 hour non professional caregiver support at home -PT consult -Swallow eval appreciated. Diet modified per recommendations. -fall precautions -continue baclofen 4, Anemia, chronic, present on admission -continue ferrous sulfate -monitor H&H Code status:? FULL CODE. Surrogate decision maker: Mother Marianela Paulino COVID PCR:Negative COVID vaccination:? Unvaccinated DVT/VTE prophylaxis:? Lovenox and SCDs Disposition: I have utilized all available immediate resources to obtain, update, or review the patient's current medications. I confirmed that the patient's advanced care plan is present, Code status is documented and/or surrogate decision maker is listed in the patient's medical record. Time Spent With Patient Critical Care time: I spent a total of [] minutes of critical care time on this patient's care today; this time is exclusive of procedural time.
[2021-11-23 15:04] LABS: Acinetobacter baumannii Not Detected (Not Detect); Candida albicans Not Detected (Not Detect); Candida glabrata Not Detected (Not Detect); Candida krusei Not Detected (Not Detect); Candida parapsilosis Not Detected (Not Detect); Candida tropicalis Not Detected (Not Detect); E. coli Not Detected (Not Detect); Enterobacter cloacae complex Not Detected (Not Detect); Enterobacteriaceae species Not Detected (Not Detect); Enterococcus species Not Detected (Not Detect); Haemophilus influenzae Not Detected (Not Detect); Listeria monocytogenes Not Detected (Not Detect); Neisseria meningitidis Not Detected (Not Detect); Proteus species Not Detected (Not Detect); Pseudomonas aeruginosa Not Detected (Not Detect); Serratia marcescens Not Detected (Not Detect); Staphylococcus species Not Detected (Not Detect); Streptococcus agalactiae (Gr B Not Detected (Not Detect); Streptococcus pneumonia Detected (Not Detect); Streptococcus pyogenes (Gr A) Not Detected (Not Detect); Streptococcus species Detected (Not Detect)
--- NOTE | 2021-11-23 15:34 | SLP.IPNOTE ---
Pt well known from previous admits and in outpt ST. Pt has recurrent pneumonia secondary to silent aspiration. Severe dysarthria and dysphagia. Pt does not want artificial feeding. Oral motor skills have been severely limited and have not changed over the past few years. No formal evaluation. Recommend honey thick liquids and puree texture while inpatient. Sit upright to 90 degrees for PO intake. SLOW 1:1 feeding. Will follow pt for education of safest swallow strategies and positioning.
[2021-11-23] MEDS: SENNOSIDES 8.6 MG TABLET 17.2 MG PO (21:54)
[2021-11-24] VITALS (8 sets, daily range): BP systolic 98–118; BP diastolic 64–84; PULSE 95–99; RESP 18–20; TEMP 36.8–37.4; O2SAT 96–99
[2021-11-24] MEDS: cefTRIAXone 1,000 MG in SODIUM CHLORIDE 0.9% 100 ML 200 ML IV (00:28)
[2021-11-24] MEDS: VANCOMYCIN 1,250 MG/250 ML PIGGYBACK 250 MG IV ×3 (02:20→18:21)
[2021-11-24] MEDS: SODIUM CHLORIDE 0.9% 1,000 ML 100 ML IV ×2 (05:28→16:33)
[2021-11-24 09:06] LABS: Alanine Aminotransferase 9 IU/L (<50); Albumin 3.2 g/dL (3.5-5.0); Alkaline Phosphatase 56 U/L (38-126); Aspartate Aminotransferase 15 IU/L (17-59); BUN Creatinine Ratio 23.1 (6-22); Bilirubin Total 0.4 mg/dL (0.2-1.3); Blood Urea Nitrogen 9 mg/dL (9-20); Calcium 8.8 mg/dL (8.4-10.2); Carbon Dioxide 24 mmol/L (22-32); Chloride 109 mmol/L (98-107); Estimated Glomerular Filt Rate > 60.0 mL/min (>60); Globulin 3.1 g/dL (1.7-4.1); Glucose 84 mg/dL (70-100); HEMOLYSIS < 15 (0-50); Potassium 3.4 mmol/L (3.4-5.1); Sodium 137 mmol/L (137-145); Total Protein 6.3 g/dL (6.3-8.2)
[2021-11-24 09:08] LABS: Add Manual Diff / Slide Review NO; Basophils Absolute Auto 100 /uL (0-100); Basophils Percent Auto 0.4 % (0-2); Eosinophils Absolute Auto 100 /uL (0-450); Eosinophils Percent Auto 0.3 % (2-4); Hematocrit 33.5 % (41-53); Hemoglobin 11.1 g/dL (13.5-17.5); Lymphocytes Absolute Auto 1200 /uL (1100-4500); Lymphocytes Percent Auto 6.3 % (25-40); Mean Corpuscular HGB Conc 33.3 % (30-36); Mean Corpuscular Volume 81.1 fL (80-100); Monocytes Absolute Auto 400 /uL (0-900); Monocytes Percent Auto 2.3 % (3-14); Neutrophils Absolute Auto 16900 /uL (1500-7000); Neutrophils Percent Auto 90.7 % (50-75); Platelet Count 270 X10^3/uL (150-400); Red Blood Cell Count 4.13 X10^6/uL (4.5-5.9); Red Cell Distribution Width 13.9 % (11.6-14.8); White Blood Cell Count 18.6 X10^3/uL (4.5-11.0)
[2021-11-24] MEDS: BACLOFEN 10 MG TABLET 5 MG PO (09:50)
[2021-11-24] MEDS: FERROUS SULFATE 325 MG TABLET 130 MG PO (09:51)
[2021-11-24] MEDS: ENOXAPARIN 40 MG/0.4 ML SYRINGE SUBCUT (09:51)
[2021-11-24] MEDS: SERTRALINE 50 MG TABLET 150 MG PO (09:51)
--- NOTE | 2021-11-24 11:33 | ST.IPDYTX ---
Visit Care Team Role Provider Type Nargis Fernandez DO Primary Care Provider Physician Specialty: Family Practice Address: [address] [place] [address], [address], [place], [address] Email: [email or web address] Norman Perrin DO Emergency Provider Physician Referring Provider Specialty: Emergency Medicine Address: [address] [place] [address], [id number] Email: [email or web address] Michaels [facility] Admit Provider Physician Attending Provider Specialty: Hospitalist Internal Medicine Address: [address] [place] [address], [id number] Email: AUTO CLUTCH REBUILDER Dysphagia Treatment AUTO CLUTCH REBUILDER Dysphagia Treatment Start: 11/24/21 11:14 Freq: Status: Active Protocol: Document 11/24/21 11:14 ZS (Rec: 11/24/21 11:33 ZS [id number]) Dysphagia Treatment Session Time Visit Start Time 09:40 Visit Stop Time 10:00 Total Visit Minutes 20 Visit Information Visit Number 2 Setting Assessment Location Acute Care Visit Type Note Type Treatment Note Next Note Type Next Note Type Treatment Note Patient Information Identification Type Name,ID Wristband Subjective Observations Pt was seated, slightly reclined, in bed when AUTO CLUTCH REBUILDER arrived. NSG reported he ate all of his breakfast and stated he needs thickened water. When AUTO CLUTCH REBUILDER asked pt, he did not know why he was on a puree/honey thick liquids diet . Positioned pt in 90 degree upright position to take crushed pills in a carrier. Treatment Liquids Trialed Honey Solids Trialed Puree Administration Type Tea Spoon,Dependent Feeding Oral Strategies Upright at 90 degrees, Controlled Bite/Sip Size Pharyngeal Strategies Sitting Upright (90 deg),Small Bites and Sips Treatment Activities Provided pt education regarding positioning, reasoning for current diet, and aspiration pneumonia. Assessment Patient Response to Treatment Good Rehab Potential Good Assessment of Improvement Pt demonstrated knowledge of current diet orders and compliance with these as NSG reported he requested thickened water and ate all of his breakfast. He indicated he did not know why he was on a modified diet and AUTO CLUTCH REBUILDER provided education regarding modified diet, positioning, and aspiration pneumonia. Pt indicated the pneumonia was from water, not food and requested to be placed on his side after taking medication. Restated importance of positioning during and for about 20 minutes after PO intake. Pt expressed understanding. Observed cough x2, though this was prior to any oral intake and likely a result of the pneumonia. Minimal anterior loss of bolus for honey thick liquid and audible swallows across all PO trials. Pt continues to have a high fever and would likely benefit from additional education and follow-up on compliance and understanding of swallow safety strategies. Diet Recommendations Recommendations Continue Current Diet Liquids Order Honey Diet Order Dysphagia Blenderized Medication Recommendations Crushed in Carrier Additional Dietary Needs 1:1 Assistance Aspiration Precautions Recommended Precautions Upright at 90 Degrees,Small Bites/Sips Treatment Plan Appropriate for Continued Therapy Yes Therapy Recommendations Recommend follow-up for education of safest swallow strategies, positioning, and continued compliance with current diet. Dysphagia Goals 1. The pt will perform safe swallow strategies with oral intake independently to reduce risk of aspiration. 2. The pt will safely tolerate least restrictive diet to meet his nutrition and hydration needs.
--- NOTE | 2021-11-24 11:45 | DIET.CONS ---
Dietary Consultation Note Admission Date: 11/22/2021 22:29 Assessment: 41y M c med hx glioma and R sided weakness referred to nutrition for low Krishan score (11). Pt took breakfast well this AM, 75% of puree/honey dysphagia diet. ONS Luis Manuel currently on back order. Will send ONS [facility] honey thick bid as dessert to support skin integrity. Ht: 182.88 cm Wt: 85 kg BMI: 25.4 UBW: Last BM: 11/24/21 (11/24/21 11:35) MNA: 12 Krishan Score: 11 Diet: 11/22/21 Breakfast General (Regular) Diet Diet Modifications: 11/23/21 Dinner Dysphagia Diet Diet Modifications: Safety Tray needed?: No Liquid consistency: Honey Consistency Food texture: Dysphagia Pureed Nutrition Percent Meal Consumed 75% 11/24/21 09:00 Percent Meal Consumed 0% 11/23/21 18:00 Labs: RBC 4.13 X10^6/uL (4.5-5.9) L 11/24/21 08:15 Hgb 11.1 g/dL (13.5-17.5) L 11/24/21 08:15 Hct 33.5 % (41-53) L 11/24/21 08:15 Creatinine 0.39 mg/dL (0.66-1.25) L 11/24/21 08:15 Lactate 2.3 mmol/L (0.7-2.1) H 11/23/21 08:30 NT-Pro-B Natriuret Pep 950 pg/mL (<125) H 11/23/21 05:19 Electronically Signed by: Laura Interiano 11/24/21 11:45 Clinical Dietitian [address] [address]
[2021-11-24 13:00] LABS: Vancomycin Peak 30.8 ug/mL (20-40)
--- NOTE | 2021-11-24 13:46 | PM.PN.1 ---
Subjective Subjective Interval history: Doing much better today, blood cultures positive for strep pneumoniae in 1 bottle. Possible contaminant however given severity of presentation likely represents bacteremia and fits with presenting pneumonia. Gram stain showed 4+ GPC. Remains on ceftriaxone and vancomycin for now. Plan to narrow once sensitivities return. Exam Vital Signs (past 8 hours): - 11/24/21 07:34 11/24/21 09:00 11/24/21 11:00 Temperature 99.4 F 99.1 F Pulse Rate 98 H 99 H Respiratory Rate 20 18 Blood Pressure 118/84 117/76 Pulse Oximetry 97 96 98 Oxygen Delivery Method Room Air Oxygen Flow Rate 0 Narrative Exam Narrative: General:? Patient is a well-developed, well-nourished male, in no distress at this time. HEENT:? Normocephalic, atraumatic, extraocular muscles intact, oral pharynx is clear and mucous membranes are dry.? Dysarthria-baseline for patient. Neck is supple and symmetric, trachea is midline, neck bends to the left. no adenopathy, no thyroid enlargement, nontender, no masses palpated.? Negative for JVD Chest:? Normal AP diameter and contour without kyphoscoliosis, no nasal flaring, retractions, or tachypneic labored breathing. Lungs:? Auscultation of all lung matthew are decreased coarse with rales and rhonchi Cardio:? Tachycardic rate and rhythm without murmur, rubs, or gallops, no carotid bruit, no cardiac pulsations present. Abdomen:? Soft nontender, negative for organomegaly, or masses.? Bowel sounds are hyperactive present in all 4 quadrants without guarding or rebound, no CVA tenderness. Musculoskeletal:? Muscle strength and tone are equal within normal limits, no deformity, crepitus, effusions, cyanosis, clubbing or edema present.? Full range of motion intact radial and pedal pulses are normal. Skin:? Warm dry and intact without rashes, ulcerations or petechiae.? Neuro:? Alert and orientated x3, Right-sided hemiparesis that is baseline.? He does have dysarthria issues which are also baseline for him.? It does make it somewhat difficult for him to express himself but with some effort it is possible. Psych:? Patient has a well-kept appearance, appropriate affect. Objective Labs Result Diagrams: 11/24/21 08:15 11/24/21 08:15 Labs: Laboratory Results - last 24 hr 11/22/21 11/24/21 11/24/21 22:25 08:15 08:15 WBC 18.6 H RBC 4.13 L Hgb 11.1 L Hct 33.5 L MCV 81.1 MCH 27.0 MCHC 33.3 RDW 13.9 Plt Count 270 Neut % (Auto) 90.7 H Lymph % (Auto) 6.3 L [place] % (Auto) 2.3 L Eos % (Auto) 0.3 L Baso % (Auto) 0.4 Neut # (Auto) 60133 H Lymph # (Auto) 1200 [place] # (Auto) 400 Eos # (Auto) 100 Baso # (Auto) 100 Sodium 137 Potassium 3.4 Chloride 109 H Carbon Dioxide 24 BUN 9 Creatinine 0.39 L Estimated GFR > 60.0 BUN/Creatinine Ratio 23.1 H Glucose 84 Calcium 8.8 Total Bilirubin 0.4 AST 15 L ALT 9 Alkaline Phosphatase 56 Total Protein 6.3 Albumin 3.2 L Globulin 3.1 Albumin/Globulin Ratio 1.0 Vancomycin Peak A. baumannii (PCR) Not detected [place] albicans (PCR) Not detected C. glabrata (PCR) Not detected C. krusei (PCR) Not detected C. parapsilosis (PCR) Not detected C. tropicalis (PCR) Not detected Enterobacteriac sp PCR Not detected E. cloacae complex PCR Not detected Enterococcus sp PCR Not detected E. coli (PCR) Not detected H. influenzae (PCR) Not detected Klebsiella oxytoca PCR Not detected Klebsiella pneumoniae Not detected List. monocytogenes PCR Not detected N. meningitidis (PCR) Not detected Proteus species (PCR) Not detected Serratia marcescens PCR Not detected Staphylococcus sp PCR Not detected Staph aureus (PCR) Not detected mecA-Methicil Res Gene Not Reportable Streptococcus sp PCR Detected H Group A Strep (PCR) Not detected Strep agalactiae (PCR) Not detected Strep pneumoniae (PCR) Detected H P. aeruginosa (PCR) Not detected Carlene/B-Vanco Res Genes Not Reportable KPC-Carbap Res Gene PCR Not Reportable 11/24/21 12:20 WBC RBC Hgb Hct MCV MCH MCHC RDW Plt Count Neut % (Auto) Lymph % (Auto) [place] % (Auto) Eos % (Auto) Baso % (Auto) Neut # (Auto) Lymph # (Auto) [place] # (Auto) Eos # (Auto) Baso # (Auto) Sodium Potassium Chloride Carbon Dioxide BUN Creatinine Estimated GFR BUN/Creatinine Ratio Glucose Calcium Total Bilirubin AST ALT Alkaline Phosphatase Total Protein Albumin Globulin Albumin/Globulin Ratio Vancomycin Peak 30.8 A. baumannii (PCR) [place] albicans (PCR) C. glabrata (PCR) C. krusei (PCR) C. parapsilosis (PCR) C. tropicalis (PCR) Enterobacteriac sp PCR E. cloacae complex PCR Enterococcus sp PCR E. coli (PCR) H. influenzae (PCR) Klebsiella oxytoca PCR Klebsiella pneumoniae List. monocytogenes PCR N. meningitidis (PCR) Proteus species (PCR) Serratia marcescens PCR Staphylococcus sp PCR Staph aureus (PCR) mecA-Methicil Res Gene Streptococcus sp PCR Group A Strep (PCR) Strep agalactiae (PCR) Strep pneumoniae (PCR) P. 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 Father No problems noted. Social History marital status: unmarried,single household members: none Smoking Status: Former smoker alcohol intake: never substance use type: marijuana Assessment & Plan Assessment & Plan narrative: Mr. 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 Patient being admitted for acute respiratory failure with hypoxia, sepsis secondary to pneumonia of left lower lobe and mild hyponatremia. 1. Sepsis with Acute respiratory failure with hypoxia, secondary to left lower lobe pneumonia and strep pneumoniae bacteremia, acute, present on admission -suspect this to be community-acquired pneumonia or more likely aspiration pneumonia given history of difficulties with swallow per CLAIMS SPECIALIST, patient's respiratory status quickly improved patient is currently off supplemental O2. -Monitor for worsening respiratory failure due to: Two years ago patient needed intubation secondary to Supraglottic Laryngitis and respiratory Failure.? -patient met SIRS criteria in ED, sofa score:4 -continue broad ceftriaxone and Vanco for possible resistant strep pneumoniae pending sensitivities. -repeat blood cultures to make sure there is clearance of bacteremia. If persistently positive may need ILIANA, though likely source is pulmonary at thsi time. -respiratory consult:? Nebulizers DuoNeb q.4 hours for cough or shortness of breath. Appreciate recommendations including compression vest. Do recommend vest as an outpatient through PCP or possibly neurology. -no need for steroids -aspiration precautions per CLAIMS SPECIALIST recommendations. -wean O2 as tolerated, goal O2 90-96% while on supplemental oxygen. Though now off. 2. Depression, chronic, present on admission -continue sertraline 3. History of glioma brain tumor with residual hemiparesis, chronic, in the setting of cerebral palsy, chronic, present on admission- stable. -patient has minimal motion of his right upper extremity, rigidity or bilateral lower extremities, uses a power wheelchair for mobilization. -patient has 24 hour non professional caregiver support at home -PT consult -Swallow eval appreciated. Diet modified per recommendations. -fall precautions -continue baclofen 4, Anemia, chronic, present on admission -continue ferrous sulfate -monitor H&H Code status:? FULL CODE. Surrogate decision maker: Mother Marianela Paulino COVID PCR:Negative COVID vaccination:? Unvaccinated DVT/VTE prophylaxis:? Lovenox and SCDs Disposition: I have utilized all available immediate resources to obtain, update, or review the patient's current medications. I confirmed that the patient's advanced care plan is present, Code status is documented and/or surrogate decision maker is listed in the patient's medical record. Time Spent With Patient Critical Care time: I spent a total of [] minutes of critical care time on this patient's care today; this time is exclusive of procedural time.
[2021-11-24 18:39] LABS: Vancomycin Trough 19.9 ug/mL (10-20)
[2021-11-24] MEDS: SENNOSIDES 8.6 MG TABLET 17.2 MG PO (21:35)
[2021-11-25] MEDS: cefTRIAXone 1,000 MG in SODIUM CHLORIDE 0.9% 100 ML 200 ML IV (00:39)
[2021-11-25 04:54] VITALS: BP 113/73; PULSE 100; RESP 20; TEMP 36.8; O2SAT 96
[2021-11-25 05:05] LABS: Add Manual Diff / Slide Review NO; Basophils Absolute Auto 100 /uL (0-100); Basophils Percent Auto 0.4 % (0-2); Eosinophils Absolute Auto 600 /uL (0-450); Eosinophils Percent Auto 3.9 % (2-4); Hematocrit 30.2 % (41-53); Hemoglobin 9.8 g/dL (13.5-17.5); Lymphocytes Absolute Auto 1300 /uL (1100-4500); Lymphocytes Percent Auto 8.2 % (25-40); Mean Corpuscular HGB Conc 32.4 % (30-36); Mean Corpuscular Hemoglobin 26.8 PG (26-34); Mean Corpuscular Volume 82.8 fL (80-100); Monocytes Absolute Auto 400 /uL (0-900); Monocytes Percent Auto 2.5 % (3-14); Neutrophils Absolute Auto 13300 /uL (1500-7000); Platelet Count 266 X10^3/uL (150-400); Red Blood Cell Count 3.64 X10^6/uL (4.5-5.9); Red Cell Distribution Width 14.2 % (11.6-14.8); White Blood Cell Count 15.6 X10^3/uL (4.5-11.0)
[2021-11-25] MEDS: SODIUM CHLORIDE 0.9% 1,000 ML 100 ML IV (05:14)
[2021-11-25] MEDS: VANCOMYCIN 1,250 MG/250 ML PIGGYBACK 250 MG IV (05:14)
[2021-11-25 05:16] LABS: Alanine Aminotransferase 7 IU/L (<50); Alkaline Phosphatase 59 U/L (38-126); Aspartate Aminotransferase 14 IU/L (17-59); BUN Creatinine Ratio 22.5 (6-22); Bilirubin Total 0.4 mg/dL (0.2-1.3); Blood Urea Nitrogen 9 mg/dL (9-20); Calcium 8.4 mg/dL (8.4-10.2); Carbon Dioxide 22 mmol/L (22-32); Chloride 113 mmol/L (98-107); Estimated Glomerular Filt Rate > 60.0 mL/min (>60); Glucose 70 mg/dL (70-100); HEMOLYSIS < 15 (0-50); Potassium 3.4 mmol/L (3.4-5.1); Sodium 139 mmol/L (137-145)
[2021-11-25 08:00] VITALS: BP 112/67; PULSE 95; RESP 20; TEMP 37.1; O2SAT 97
[2021-11-25] MEDS: ENOXAPARIN 40 MG/0.4 ML SYRINGE SUBCUT (08:49)
[2021-11-25] MEDS: levoFLOXacin 250 MG TABLET 750 MG PO (08:49)
[2021-11-25] MEDS: BACLOFEN 10 MG TABLET 5 MG PO (08:49)
[2021-11-25] MEDS: SERTRALINE 50 MG TABLET 150 MG PO (08:49)
[2021-11-25] MEDS: FERROUS SULFATE 325 MG TABLET 130 MG PO (09:58)
--- NOTE | 2021-11-25 10:25 | PM.DS.1 ---
History of Present Illness History of Present Illness Date Patient Seen: 11/25/21 Time Patient Seen: 10:25 Chief complaint: SOB Narrative: Per Mckayla Michaels, ADJUNCT PSYCHOLOGY FACULTY MEMBER-BC: ?Mr. 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 Two years ago patient needed intubation secondary to Supraglottic Laryngitis and respiratory Failure .? He is brought in tonight by EMS for shortness of breath and cough.? Patient did receive a nebulizer treatment prior to arrival and he states this did improve his symptoms somewhat.? Patient denies fevers, body aches, chills, chest pain, abd pain, nausea, vomiting, nasal drainage, sore throat, rash, difficulty swallowing, difficulty managing secretions. There is no change to his neurologic status. Patient's vitals upon admit temp 97.2?, BP 104/67, patient is tachycardic HR 125, tachypneic RR 28, initial O2 saturation 96% on 10 L nasal cannula, once to the floor patient's O2 saturation is 97% on 2 L nasal cannula.? Patient met SIRS criteria in ED. SOFA: 2White count 13.3, neut % 88.5 %,neut # 11,700, procalcitonin is 0.88, lactate 3.6.? Patient's sodium 133, BUN 8, creatinine 0.49-baseline, glucose 101.? Patient's chest x-ray demonstrated left lower lobe opacities are suspicious for pneumonia.? Small left pleural effusion. EKG, I personally reviewed and interpreted this ECG:? Sinus tachycardia with a ventricular rate of [address] and T-wave changes.? Dr. Perrin in ED started the patient on vancomycin and Rocephin based on previous 2019 throat culture-sensitivity for MRSA.? As the patients history demonstrated significant culture resistance and respiratory compromise resulting in intubation in the setting of pneumonia. Patient admitted for acute respiratory failure with hypoxia, sepsis, secondary to left lower lobe pneumonia. Discharge Providers Provider Date of admission: 11/22/21 22:29 Discharge Date: 11/25/21 Primary care physician: Nargis Fernandez DO Consults: 11/22/21 23:46 Consult to Respiratory Therapy Evaluate & Treat Comment: Pneumonia Physician Instructions: Evaluate and treat 11/23/21 06:59 Consult to Speech Therapy Evaluate & Treat Comment: swallow eval Physician Instructions: Evaluate and treat 11/23/21 15:45 Consult to Dietitian, Adult Routine Comment: Reason For Exam: ronny score <11 Discharge provider: Trung Gupta DO Summary Hospital Course Discharge Diagnosis: Please see hospital course by problem list noted below. Hospital Course: Mr. 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 1. Sepsis with Acute respiratory failure with hypoxia, secondary to left lower lobe pneumonia and strep pneumoniae bacteremia, acute, present on admission -suspect this to be community-acquired pneumonia or more likely aspiration pneumonia given history of difficulties with swallow per ASSISTANT MANAGER, patient's respiratory status quickly improved patient is currently off supplemental O2. ASSISTANT MANAGER followed along with the patient during his admission. -patient met SIRS criteria in ED, sofa score:4 -continued broad ceftriaxone and Vanco for possible resistant strep pneumoniae pending sensitivities and history of MRSA in his throat. Ultimately improved, grew strep pneumoniae in his blood and was discharged on or bactrim based on sensitivities. -repeat blood cultures to make sure there is clearance of bacteremia remain negative. -patient was weaned off of supplemental oxygen by the time of discharge. -Leukocytosis improved over the course of his stay with above therapy. 2. Depression, chronic, present on admission -continue sertraline 3. History of glioma brain tumor with residual hemiparesis, chronic, in the setting of cerebral palsy, chronic, present on admission- stable. -patient has minimal motion of his right upper extremity, rigidity or bilateral lower extremities, uses a power wheelchair for mobilization. -patient has 24 hour non professional caregiver support at home. -no medication changes recommended at the time of discharge. 4, Anemia, chronic, present on admission -no changed recommended during this hospital stay. Time Spent with Patient Time spent: Greater than 30 minutes Exam Vital Signs (past 8 hours): - 11/25/21 04:54 11/25/21 08:00 Temperature 98.2 F 98.7 F Pulse Rate 100 H 95 H Respiratory Rate 20 20 Blood Pressure 113/73 112/67 Pulse Oximetry 96 97 Oxygen Delivery Method Room Air Oxygen Flow Rate 0 Narrative Exam Narrative: General:? Patient is a well-developed, well-nourished male, in no distress at this time. HEENT:? Normocephalic, atraumatic, extraocular muscles intact, oral pharynx is clear and mucous membranes are dry.? Dysarthria-baseline for patient. Neck is supple and symmetric, trachea is midline, neck bends to the left. no adenopathy, no thyroid enlargement, nontender, no masses palpated.? Negative for JVD Chest:? Normal AP diameter and contour without kyphoscoliosis, no nasal flaring, retractions, or tachypneic labored breathing. Lungs:? Auscultation of all lung matthew are decreased coarse with rales and rhonchi Cardio:? Tachycardic rate and rhythm without murmur, rubs, or gallops, no carotid bruit, no cardiac pulsations present. Abdomen:? Soft nontender, negative for organomegaly, or masses.? Bowel sounds are hyperactive present in all 4 quadrants without guarding or rebound, no CVA tenderness. Musculoskeletal:? Muscle strength and tone are equal within normal limits, no deformity, crepitus, effusions, cyanosis, clubbing or edema present.? Full range of motion intact radial and pedal pulses are normal. Skin:? Warm dry and intact without rashes, ulcerations or petechiae.? Neuro:? Alert and orientated x3, Right-sided hemiparesis that is baseline.? He does have dysarthria issues which are also baseline for him.? It does make it somewhat difficult for him to express himself but with some effort it is possible. Psych:? Patient has a well-kept appearance, appropriate affect. Objective Labs Result Diagrams: 11/25/21 04:32 11/25/21 04:32 Labs: Laboratory Results - last 24 hr 11/24/21 11/24/21 11/25/21 12:20 18:00 04:32 WBC 15.6 H RBC 3.64 L Hgb 9.8 L Hct 30.2 L MCV 82.8 MCH 26.8 MCHC 32.4 RDW 14.2 Plt Count 266 Neut % (Auto) 85.0 H Lymph % (Auto) 8.2 L Kaufman % (Auto) 2.5 L Eos % (Auto) 3.9 Baso % (Auto) 0.4 Neut # (Auto) 64228 H Lymph # (Auto) 1300 Kaufman # (Auto) 400 Eos # (Auto) 600 H Baso # (Auto) 100 Sodium Potassium Chloride Carbon Dioxide BUN Creatinine Estimated GFR BUN/Creatinine Ratio Glucose Calcium Total Bilirubin AST ALT Alkaline Phosphatase Total Protein Albumin Globulin Albumin/Globulin Ratio Vancomycin Peak 30.8 Vancomycin Trough 19.9 11/25/21 04:32 WBC RBC Hgb Hct MCV MCH MCHC RDW Plt Count Neut % (Auto) Lymph % (Auto) Kaufman % (Auto) Eos % (Auto) Baso % (Auto) Neut # (Auto) Lymph # (Auto) Kaufman # (Auto) Eos # (Auto) Baso # (Auto) Sodium 139 Potassium 3.4 Chloride 113 H Carbon Dioxide 22 BUN 9 Creatinine 0.40 L Estimated GFR > 60.0 BUN/Creatinine Ratio 22.5 H Glucose 70 Calcium 8.4 Total Bilirubin 0.4 AST 14 L ALT 7 Alkaline Phosphatase 59 Total Protein 6.0 L Albumin 3.0 L Globulin 3.0 Albumin/Globulin Ratio 1.0 Vancomycin Peak Vancomycin Trough [facility] Medical History Cerebral palsy Depression Difficulty with speech Dysarthria Former smoker Gingivitis Glioma Hemiparesis (~1984) 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 Father No problems noted. Social History marital status: unmarried,single household members: none Smoking Status: Former smoker alcohol intake: never substance use type: marijuana Discharge Plan Discharge Plan Patient Disposition: Home Provider Discharge Comment: You were admitted to the hospital with pnuemonia, which the bacteria then entered your blood stream. You can complete antibiotics at home. Please finish them to try and prevent recurrence of infection. For diarrhea you can take immodium at home if more than 4-5 BM in a day due to the antibiotic. Discharge orders & Medications Prescriptions: Continued (DME) Disabled Parking Qty: 1 0RF Rx Instructions: I find this patient to be medically disabled and qualified for Disabled Parking as indicated, and signed, on the Accompanying Disabled Parking Application for Individuals ferrous sulfate 325 mg (65 mg iron) tablet 130 mg PO DAILY 0RF sertraline 100 mg tablet 150 mg PO DAILY Qty: 135 3RF (DME) XL mattress for semi-electric hospital bed See Rx Instructions .Route .MEDSUPPLY Qty: 1 0RF Rx Instructions: use daily as directed (DME) Battery Powered Lift Qty: 1 0RF Dose Instruction: As directed Rx Instructions: Use daily as directed for transfers to and from bed (DME) Power Chair tall Qty: 1 0RF Dose Instruction: As directed Rx Instructions: As directed for patient care with activities of daily living. Chair needs to tilt foreword and tilt backwards for patient care. Pt is 6 feet tall and will need to fit height. (DME) Semi-electric hospital bed Qty: 1 0RF Dose Instruction: As directed Rx Instructions: Semi-electric hospital bed to permit transfers to wheelchair and to attach traction equipment. Must be large enough and long enough to accommodate his height and weight. EDEN: 99 months (DME) Shower Chair Qty: 1 0RF Rx Instructions: As directed for patient care with activities of daily living. Chair needs to tilt foreword and tilt backwards for patient care. Pt is 6 feet tall and will need to fit height. baclofen 5 mg tablet 5 mg PO DAILY 0RF Botox 100 unit recon soln 200 unit IM ONCE 0RF Label Comments: Mother of patient believes he is due for next injection Rx Instructions: Goes every 3 Months for injection No Action sulfamethoxazole-trimethoprim [Bactrim DS] 800-160 mg tablet 1 tab PO BID 10 Days Qty: 20 0RF Medication counseling provided by Pharmacist: Yes Follow up/Referrals: Nargis Fernandez DO [Primary Care Provider] - Diet/Activity/Treatments Diet: Diet as Tolerated Activity: As tolerated Visit Report/Discharge Packet Instructions: Aspiration Pneumonia, DI for Hypoxia Discharge Data Primary Care Provider: Nagris Fernandez
[2021-11-25 11:04] VITALS: O2SAT 98
[2021-11-25 12:30] VITALS: BP 126/91; PULSE 93; RESP 20; TEMP 37.1; O2SAT 99
--- NOTE | 2021-11-25 12:54 | ST.IPDYTX ---
Visit Care Team Role Provider Type Nargis Fernandez DO Primary Care Provider Physician Specialty: Family Practice Address: [address] [place] [address], [facility], [place], [address] Email: [email or web address] Norman Perrin DO Emergency Provider Physician Referring Provider Specialty: Emergency Medicine Address: [address] [place] [address], [address] Email: [email or web address] Mckayla Michaels [facility] Admit Provider Physician Attending Provider Specialty: Hospitalist Internal Medicine Address: [address] [place] [address], [address] Email: MEAT SLICER Dysphagia Treatment MEAT SLICER Dysphagia Treatment Start: 11/24/21 11:14 Freq: Status: Active Protocol: Document 11/25/21 12:43 LNK (Rec: 11/25/21 12:54 LNK [id number]) Dysphagia Treatment Session Time Visit Start Time 12:15 Visit Stop Time 12:30 Total Visit Minutes 15 Visit Information Visit Number 3 Setting Assessment Location Acute Care Visit Type Note Type Treatment Note Next Note Type Next Note Type Treatment Note Patient Information Identification Type Name,ID Wristband Subjective Observations Pt was seated, slightly reclined, in bed when MEAT SLICER arrived. His mther was at bedside. When thin liquid was at bedside, Jonnie stated he had requested it. He wants to be able to dring thin liquids . Treatment Liquids Trialed Thin,Fenton Solids Trialed Puree Administration Type Tea Spoon,Dependent Feeding Oral Strategies Upright at 90 degrees, Controlled Bite/Sip Size Pharyngeal Strategies Sitting Upright (90 deg),Small Bites and Sips Additional Dysphagia Treatment Breathing/swallowing training Strategies Treatment Activities Positioned pt in 90 degree upright position to trial NTL and thin liquids. Pt did not demonstrate overt s/sx aspiration; although at risk for silent aspiration. Instructed pt and mother in Free Water Protocol ; Very clean mouth immediately prior to and thin liquids. Tooth brushing (Jonnie has a power tooth brush) and mouthwash if possible (to clear bacteria that may enter the lungs with water). Provided pt education regarding positioning, reasoning for current diet, Tree Water Protocol and aspiration pneumonia risk. Both Jonnie and his mother expressed understanding of precautions. Jonnie is hopeful he will be discharging home today. Continue current diet while in patient. Assessment Patient Response to Treatment Good Rehab Potential Good Assessment of Improvement Pt and his mother demonstrated knowledge of current diet orders and compliance even though he would prefer thin water/liquids. MEAT SLICER provided education regarding modified diet, positioning, and aspiration pneumonia. Pt Jonnie understands the aspiration risk from thin liquids/water. Restated importance of positioning during and for about 20 minutes after PO intake. Pt expressed understanding. Observed no cough. Diet Recommendations Recommendations Continue Current Diet Liquids Order Honey Diet Order Dysphagia Blenderized Medication Recommendations Crushed in Carrier Comments with caregiver support Additional Dietary Needs 1:1 Assistance Aspiration Precautions Recommended Precautions Upright at 90 Degrees,Small Bites/Sips Additional Precautions Upright at ~70 degrees; Strict oral care Treatment Plan Placement Recommendation after Discharge Home,Home Care Appropriate for Continued Therapy Yes Therapy Recommendations Recommend follow-up for education of safest swallow strategies, positioning, and continued compliance with current diet. Dysphagia Goals 1. The pt will perform safe swallow strategies with oral intake independently to reduce risk of aspiration. 2. The pt will safely tolerate least restrictive diet to meet his nutrition and hydration needs. Follow Up Plan 1x follow-up Referrals/Other Recommended Referrals ENT Consult
[2021-11-25 14:33] LABS: Clostridium Difficile Tox PCR Negative for C. diff (Negative)
--- NOTE | 2021-11-25 17:06 | PC.NURSE ---
Discharge: Pt feels ready to d/c to home. Did have another thick liq bm and MD Gupta made aware. Stool sent for c-diff and was negative. Mother arrived with the patients w/c and van. Notified of stool and negative for c-diff. She reports she will make his caregivers aware and sisal picker some immodium. Reviewed d/c packet with pt. Questions answered. Pt d/c to home via van and his mother.
== END 2021-11-25 15:50 | disposition home or self-care (01) | DRG 871 ==
LOC: ED 22:29 → AC 22:30
PROVIDERS: Internal Medicine; Admitting Provider Nurse Practitioner Family; Emergency Provider Emergency Medicine; PCP Family Medicine; Referring Provider Emergency Medicine; Visit Provider Nurse Practitioner Family
DX: A40.3 Sepsis due to Streptococcus pneumoniae (principal); J18.9 Pneumonia, unspecified organism; J96.01 Acute respiratory failure with hypoxia; E87.1 Hypo-osmolality and hyponatremia; G81.91 Hemiplegia, unspecified affecting right dominant side; G80.8 Other cerebral palsy; R47.1 Dysarthria and anarthria; F32.A Depression, unspecified; D64.89 Other specified anemias; Z87.891 Personal history of nicotine dependence; Z86.69 Personal history of other diseases of the nervous system and sense organs; Z20.822 Contact with and (suspected) exposure to COVID-19
CPT/HCPCS: 36415; 71045; 80053; 80202; 83605; 83690; 83735; 83880; 84145; 85025; 85379; 86140; 87040; 87150; 87186; 87205; 87493; 87502; 87635; 92526; 93005; 93010; 94667; 94668; 94762; 96365; 99284; C9803; J0696; J1650

== ENCOUNTER 2022-08-29 21:59 | Inpatient (IN) | payer MEDICAID, OTHER, SELFPAY ==
[2020-01-21 09:10] VITALS: PULSE 63; RESP 18; O2SAT 100
[2022-08-29] VITALS (7 sets, daily range): BP systolic 124–133; BP diastolic 84–90; PULSE 118–121; RESP 30–35; TEMP 38.8; O2SAT 94–98
--- NOTE | 2022-08-29 22:00 | PC.NURSE ---
nasal swab performed at this time - tolerated well
--- NOTE | 2022-08-29 22:05 | DI.RAD.S_ITS ---
PROCEDURE: XR CHEST 1V INDICATIONS: SOB, tachycardia TECHNIQUE: One view of the chest was acquired. COMPARISON: [facility], CR, XR CHEST 1V, 11/22/2021, 21:49. FINDINGS: Surgical changes and devices: None. Lungs and pleura: Possible small left pleural effusion. Lungs and pleural spaces otherwise clear. Mediastinum: Mediastinal contours appear normal. Heart size is normal. Bones and chest wall: No suspicious bony lesions. Overlying soft tissues appear unremarkable. IMPRESSION: Possible small left pleural effusion. Otherwise normal study. Dictated by: Reyes Hernandez M.D. on 08/29/2022 at 23:08 Approved by: Reyes Hernandez M.D. on 08/29/2022 at 23:09
--- NOTE | 2022-08-29 22:07 | ED_ITS ---
HPI - General Adult General Chief complaint: Shortness of Breath/Dyspnea Stated complaint: SOB Time Seen by Provider: 08/29/22 22:04 History of Present Illness HPI narrative: 42-year-old male nonsmoker with history of glioma, developmental delay, prior neurosurgical intervention, hemiparesis and frequent respiratory infections presents by EMS for evaluation of 24 hours of worsening difficulty breathing, cough and fever. Patient had been in his normal state of health until sometime yesterday when the symptoms began. Independent history obtained from mother who is at the bedside, she states that he is at his neurologic baseline in terms of alertness and ability to communicate and that he frequently has a relatively shallow, stridorous sounding breath pattern, however he seems to be working much harder than normal. His temperature was noted to be 102 and she thinks his heart rate is higher than normal. There is no report of vomiting or diarrhea and patient does not seem to be having any pain. He is had no new medications or change in diet Related Data Home Medications Medication Instructions Recorded Confirmed baclofen 5 mg tablet 5 mg PO DAILY 07/20/21 02/04/22 onabotulinumtoxinA 100 unit 200 unit IM ONCE 07/20/21 02/04/22 solution for injection (Botox) ferrous sulfate 325 mg (65 mg 130 mg PO DAILY 10/29/21 02/04/22 iron) tablet Previous Rx's Medication Instructions Recorded Battery Powered Lift #1 ea 03/02/18 Power Chair #1 ea 10/16/18 Semi-electric hospital bed #1 ea 11/17/18 Disabled Parking #1 ea 01/15/19 Shower Chair #1 ea 07/04/19 XL mattress for semi-electric #1 ea 10/29/21 hospital bed sertraline 100 mg tablet 150 mg PO DAILY #135 tabs 10/29/21 Allergies Allergy/AdvReac Type Severity Reaction Status Date / Time Penicillins [PENICILLINS] Allergy Severe RASH Verified 02/04/22 15:46 levofloxacin Allergy Intermediate Rash Verified 02/04/22 15:46 Review of Systems Review of Systems Narrative: GENERAL: See HPI HEENT: Denies sinus pain, ear pain, sore throat, difficulty swallowing, dizz iness. RESPIRATORY: See HPI CARDIOVASCULAR: Denies chest pain, palpitations, orthopnea, edema, GASTROINTESTINAL: Denies nausea, vomiting, abdominal pain, diarrhea, constipation, melena. : Denies dysuria, frequency, incontinence, hematuria, urinary retention. MUSCULOSKELETAL: denies weakness, joint pain, or bony pain SKIN: Denies rash, skin lesions, or other NEUROLOGIC: Denies weakness, headache, numbness, change in speech, confusion, seizures, incoordination. PSYCHIATRIC: No concerning psychosocial issues. 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 Father No problems noted. Social History marital status: unmarried,single household members: none Smoking Status: Former smoker alcohol intake: never substance use type: marijuana Smoking Status: Former smoker alcohol intake frequency: 0-2 drinks per day Substance Use Type: marijuana Exam Narrative Exam Narrative: GENERAL: [42] year old patient appears stated age. Well-developed patient, in obvious distress, rapid shallow breathing. HEAD: Atraumatic. Normocephalic. EYES: Pupils equal round and reactive. Extraocular motions intact. No scleral icterus. No injection or drainage. ENT: Dry mucous membranes Nose without bleeding, purulent drainage. Throat without erythema, tonsillar hypertrophy or exudate. Airway patent. NECK: Trachea midline. Non tender CARDIOVASCULAR: Tachycardic and regular rhythm without murmurs, gallops, or rubs. RESPIRATORY: Rapid and shallow with crackles in bilateral bases GASTROINTESTINAL: Abdomen soft, non-tender, nondistended. EXTREMITIES: No edema or joint tenderness. BACK: Nontender without deformity or crepitance. No flank tenderness. NEURO: AOx3. SKIN: No rash or erythema of visible areas Initial Vital Signs Initial Vital Signs: Vital Signs Temperature 102 F H 08/29/22 22:00 Pulse Rate 118 H 08/29/22 22:00 Respiratory Rate 30 H 08/29/22 22:00 Blood Pressure 133/84 08/29/22 22:00 Pulse Oximetry 96 08/29/22 22:00 Oxygen Delivery Method 08/29/22 22:00 Course Orders Ordered: ED Orders 08/29/22 22:00 Covid-19 + FLU A/B + RSV - PCR Stat 08/29/22 22:05 Chest [XR chest 1V] Stat EKG-12 Lead Stat 08/29/22 22:27 C-Reactive Protein Quant Stat Complete Blood Count AUTO DIFF Stat Comprehensive Metabolic Panel Stat D Dimer Stat Lactate (Lactic Acid) Stat Magnesium Stat NT-proBNP (BNP-Adult 18+) Stat Procalcitonin Stat Troponin & CK Cardiac Panel Stat 08/29/22 22:50 Blood Culture Stat 08/30/22 00:15 CT angio chest PE protocol Stat Discontinued Medications Lactated Ringer's (Lactated Ringers) 1,000 mls @ 1,000 mls/hr IV BOLUS ONE Stop: 08/29/22 23:06 Last Infusion: 08/29/22 23:50 Dose: 0 mls/hr Documented By: Admin: 08/29/22 22:39 Dose: 1,000 mls/hr Documented By: SHERINE(2) Ceftriaxone Sodium 2,000 mg/ (Sodium Chloride) 100 mls @ 200 mls/hr IV NOW ONE Stop: 08/30/22 02:52 Last Admin: 08/30/22 03:30 Dose: 200 mls/hr Documented By: SHERINE Azithromycin 500 mg/ Dextrose 250 mls @ 250 mls/hr IV NOW ONE Stop: 08/30/22 02:52 Ketorolac Tromethamine (Ketorolac 30 Mg/Ml Vial) 15 mg IV NOW ONE Stop: 08/29/22 22:08 Last Admin: 08/29/22 22:49 Dose: 15 mg Documented By: SHERINE Vital Signs Vital signs: Vital Signs - 8 hr 08/29/22 22:00 08/29/22 22:03 08/29/22 22:05 Temperature 102 F H Pulse Rate 118 H 120 H 119 H Respiratory Rate 30 H 35 H Blood Pressure 133/84 Pulse Oximetry 96 98 97 Oxygen Delivery Method Room Air Room Air Room Air 08/29/22 22:05 08/29/22 22:30 12/11/22 22:31 Temperature Pulse Rate 121 H Respiratory Rate 34 H Blood Pressure 133/84 124/90 Pulse Oximetry 95 Oxygen Delivery Method Room Air 08/29/22 22:31 08/29/22 23:00 08/29/22 23:30 Temperature Pulse Rate 121 H 119 H 119 H Respiratory Rate 34 H 34 H 32 H Blood Pressure Pulse Oximetry 94 96 96 Oxygen Delivery Method Room Air 08/30/22 00:00 08/30/22 00:35 08/30/22 01:00 Temperature Pulse Rate 122 H 125 H 122 H Respiratory Rate 33 H 35 H Blood Pressure Pulse Oximetry 94 93 94 Oxygen Delivery Method 08/30/22 01:30 08/30/22 02:00 08/30/22 02:30 Temperature Pulse Rate 126 H 122 H 123 H Respiratory Rate 35 H 36 H 35 H Blood Pressure Pulse Oximetry 93 94 Oxygen Delivery Method 08/30/22 03:00 Temperature Pulse Rate 118 H Respiratory Rate 36 H Blood Pressure Pulse Oximetry 94 Oxygen Delivery Method Medical Decision Making Lab Data Result diagrams: 08/29/22 22:27 08/29/22 22:27 Labs: Lab Results 08/29/22 08/29/22 08/29/22 Range/Units 22:00 22:27 22:27 WBC 7.9 (4.5-11.0) X10^3/uL RBC 4.59 (4.5-5.9) X10^6/uL Hgb 12.5 L (13.5-17.5) g/dL Hct 37.4 L (41-53) % MCV 81.5 (80-100) fL MCH 27.2 (26-34) PG MCHC 33.4 (30-36) % RDW 13.8 (11.6-14.8) % Plt Count 264 (150-400) X10^3/uL Neut % (Auto) 89.9 H (50-75) % Lymph % (Auto) 4.5 L (25-40) % [place] % (Auto) 3.3 (3-14) % Eos % (Auto) 0.9 L (2-4) % Baso % (Auto) 1.4 (0-2) % Neut # (Auto) 7100 H (0317-4382) /uL Lymph # (Auto) 400 L (9404-3225) /uL [place] # (Auto) 300 (0-900) /uL Eos # (Auto) 100 (0-450) /uL Baso # (Auto) 100 (0-100) /uL D-Dimer 2020 H (<500) ng/ml Sodium (137-145) mmol/L Potassium (3.4-5.1) mmol/L Chloride (98-107) mmol/L Carbon Dioxide (22-32) mmol/L BUN (9-20) mg/dL Creatinine (0.66-1.25) mg/dL Estimated GFR (>60) mL/min BUN/Creatinine Ratio (6-22) Glucose (70-100) mg/dL Lactate (0.7-2.1) mmol/L Calcium (8.4-10.2) mg/dL Magnesium (1.6-2.3) mg/dL Total Bilirubin (0.2-1.3) mg/dL AST (17-59) IU/L ALT (<50) IU/L Alkaline Phosphatase (38-126) U/L Total Creatine Kinase (55-170) U/L CK-MB (CK-2) CK-MB (CK-2) Rel Index Troponin I (0.01-0.034) ng/mL C-Reactive Protein (<1.0) mg/dL NT-Pro-B Natriuret Pep (<125) pg/mL Total Protein (6.3-8.2) g/dL Albumin (3.5-5.0) g/dL Globulin (1.7-4.1) g/dL Albumin/Globulin Ratio (1.0-2.8) Procalcitonin (<0.5) ng/mL SARS-CoV-2 (PCR) Negative (Negative) Influenza A (RT-PCR) Flu a positive H (NEGATIVE) Influenza B (RT-PCR) Flu b negative (NEGATIVE) RSV (PCR) Negative (Negative) 08/29/22 08/29/22 08/29/22 Range/Units 22:27 22:27 22:27 WBC (4.5-11.0) X10^3/uL RBC (4.5-5.9) X10^6/uL Hgb (13.5-17.5) g/dL Hct (41-53) % MCV (80-100) fL MCH (26-34) PG MCHC (30-36) % RDW (11.6-14.8) % Plt Count (150-400) X10^3/uL Neut % (Auto) (50-75) % Lymph % (Auto) (25-40) % [place] % (Auto) (3-14) % Eos % (Auto) (2-4) % Baso % (Auto) (0-2) % Neut # (Auto) (1451-1537) /uL Lymph # (Auto) (4233-6305) /uL [place] # (Auto) (0-900) /uL Eos # (Auto) (0-450) /uL Baso # (Auto) (0-100) /uL D-Dimer (<500) ng/ml Sodium 136 L (137-145) mmol/L Potassium 4.0 (3.4-5.1) mmol/L Chloride 100 (98-107) mmol/L Carbon Dioxide 27 (22-32) mmol/L BUN 9 (9-20) mg/dL Creatinine 0.43 L (0.66-1.25) mg/dL Estimated GFR > 60 (>60) mL/min BUN/Creatinine Ratio 20.9 (6-22) Glucose 89 (70-100) mg/dL Lactate 1.2 (0.7-2.1) mmol/L Calcium 8.8 (8.4-10.2) mg/dL Magnesium 1.8 (1.6-2.3) mg/dL Total Bilirubin 0.3 (0.2-1.3) mg/dL AST 24 (17-59) IU/L ALT 14 (<50) IU/L Alkaline Phosphatase 83 (38-126) U/L Total Creatine Kinase 33 L (55-170) U/L CK-MB (CK-2) TNP CK-MB (CK-2) Rel Index TNP Troponin I < 0.012 (0.01-0.034) ng/mL C-Reactive Protein 3.4 H (<1.0) mg/dL NT-Pro-B Natriuret Pep 382 H (<125) pg/mL Total Protein 7.5 (6.3-8.2) g/dL Albumin 4.0 (3.5-5.0) g/dL Globulin 3.5 (1.7-4.1) g/dL Albumin/Globulin Ratio 1.1 (1.0-2.8) Procalcitonin 0.36 (<0.5) ng/mL SARS-CoV-2 (PCR) (Negative) Influenza A (RT-PCR) (NEGATIVE) Influenza B (RT-PCR) (NEGATIVE) RSV (PCR) (Negative) Imaging Data Chest x-ray: Radiologist's Impression: XRay Report Signed Patient: Jonnie Christopher MR#: [id number] : 1980 Acct:[id number] Age/Sex: 42 / M Date of Service: 08/29/22 Loc: ED Accession Number: [id number] ?? Procedure: XR chest 1V Ordering Provider: Remington Osborn D.O. PROCEDURE:? XR CHEST 1V ? INDICATIONS:? SOB, tachycardia ? TECHNIQUE:? One view of the chest was acquired.? ? COMPARISON:? [facility], CR, XR CHEST 1V, 11/22/2021, 21:49. ? FINDINGS:? ? Surgical changes and devices:? None.? ? Lungs and pleura:? Possible small left pleural effusion.? Lungs and pleural spaces otherwise clear. ? Mediastinum:? Mediastinal contours appear normal.? Heart size is normal.? ? Bones and chest wall:? No suspicious bony lesions.? Overlying soft tissues appear unremarkable.? ? IMPRESSION:? Possible small left pleural effusion.? Otherwise normal study. ? ? Dictated by: Reyes Hernandez M.D. on 08/29/2022 at 23:08 ? ? Approved by: Reyes Hernandez M.D. on 08/29/2022 at 23:09 ? CT scan - chest: Radiologist's Impression: [place] [id number] CT Scan Report Signed Patient: Jonnie Christopher MR#: [id number] : 1980 Acct:[id number] Age/Sex: 42 / M Date of Service: 08/30/22 Loc: ED Accession Number: [id number] ?? Procedure: CT angio chest PE protocol Ordering Provider: Remington Osborn D.O. PROCEDURE:? CT ANGIO CHEST PE PROTOCOL ? INDICATIONS:? SOB, cough, tachypnea, critical Dimer ? TECHNIQUE:? After the administration of intravenous contrast, 2 mm thick sections acquired from the pulmonary apices to the posterior costophrenic angles.? 3-dimensional maximum intensity projection (MIP) coronal and sagittal reformats were then acquired through the thorax.? For radiation dose reduction, the following was used:? automated exposure control, adjustment of mA and/or kV according to patient size.? ? COMPARISON:? [facility], CR, XR CHEST 1V, 08/29/2022, 22:27. ? FINDINGS:? Image quality:? There is motion artifact limiting evaluation.? ? Pulmonary arteries:? Pulmonary arteries are normal in size, and demonstrate no intraluminal filling defects to suggest central pulmonary embolism.? ? Lower Neck: No lymphadenopathy by size criteria. Thyroid:? Visualized thyroid demonstrates no discrete nodules. Axillae: No lymphadenopathy by size criteria. Chest Wall:? Unremarkable.? Bones: Visualized osseous structures demonstrate no suspicious lesions. ? Lungs and Airways:? There is consolidation within the left lower lobe with associated air bronchograms.? A few punctate foci of calcifications within the consolidated left lower lobe are nonspecific.? There are small indistinct centrilobular ground-glass nodules bilaterally with a left upper lobe dominance.? There is mild dependent mucus within the trachea, left main stem bronchus, and left lower lobe bronchial structures. Pleura: No pneumothorax.? There is a small to moderate left pleural effusion.? There is mild associated left pleural thickening.? ? Heart: Heart size is normal.? There is a small pericardial effusion. Thoracic Vessels: The thoracic aorta is normal in size.? Mediastinum and Aniya: No lymphadenopathy by size criteria. Esophagus: No wall thickening. No hiatal hernia. ? Abdomen:? Visualized upper abdominal solid organs appear normal in the early arterial phase of enhancement.? ? IMPRESSION:? ? 1. No evidence of pulmonary embolism. ? 2. Consolidation of the left lower lobe with associated air bronchograms likely represent pneumonia. ? 3. Small to moderate left pleural effusion. ? 4. Small indistinct ground-glass nodules bilaterally with a centrilobular distribution suggestive of a mild infectious or inflammatory process.? ? ? Dictated by: Damien Shanks M.D. on 08/30/2022 at 1:12 ? ? Approved by: Damien Shanks M.D. on 08/30/2022 at 1:18 ? MDM Narrative Medical decision making narrative: 42-year-old male presents with increased work of breathing and fever for the past 24 hours. He is tachycardic and tachypneic and with presumed infection is treated as sepsis from the onset. Respiratory swabs demonstrate positive findings for influenza A. He is thought to be at increased risk for the possibility of pulmonary embolism given his relatively sedentary lifestyle, lack of use of anticoagulants, tachycardia and trouble breathing, D-dimer was ordered and elevated, thankfully CT angiogram demonstrates no pulmonary embolism, however there is suggestion pneumonia. Patient given fluids, Rocephin and azithromycin, Tamiflu will be administered on the floor. Patient requires hospitalization for sepsis, pneumonia and influenza. Patient and family understand diagnosis and plan and are in complete agreement. Hospitalist happy to accept Discharge Plan Departure Patient Disposition: Admitted as Observation Clinical Impression: Pneumonia, Influenza A Admit Date/Time: 08/30/22 03:04 Admit Provider: Roby Guzman
--- NOTE | 2022-08-29 22:30 | PC.NURSE ---
xray at bedside
[2022-08-29] MEDS: LACTATED RINGERS 1,000 ML 1000 ML IV (22:39)
[2022-08-29 22:41] LABS: Add Manual Diff / Slide Review NO; Basophils Absolute Auto 100 /uL (0-100); Basophils Percent Auto 1.4 % (0-2); Eosinophils Absolute Auto 100 /uL (0-450); Eosinophils Percent Auto 0.9 % (2-4); Hematocrit 37.4 % (41-53); Hemoglobin 12.5 g/dL (13.5-17.5); Lymphocytes Absolute Auto 400 /uL (1100-4500); Lymphocytes Percent Auto 4.5 % (25-40); Mean Corpuscular HGB Conc 33.4 % (30-36); Mean Corpuscular Hemoglobin 27.2 PG (26-34); Mean Corpuscular Volume 81.5 fL (80-100); Monocytes Absolute Auto 300 /uL (0-900); Monocytes Percent Auto 3.3 % (3-14); Neutrophils Absolute Auto 7100 /uL (1500-7000); Neutrophils Percent Auto 89.9 % (50-75); Platelet Count 264 X10^3/uL (150-400); Red Blood Cell Count 4.59 X10^6/uL (4.5-5.9); Red Cell Distribution Width 13.8 % (11.6-14.8); White Blood Cell Count 7.9 X10^3/uL (4.5-11.0)
--- NOTE | 2022-08-29 22:41 | PC.NURSE ---
lab at bedside
[2022-08-29 22:47] LABS: D Dimer 2020 ng/ml (<500)
[2022-08-29] MEDS: KETOROLAC 30 MG/ML VIAL 15 MG IV (22:49)
[2022-08-29 22:51] LABS: Creatine Kinase 33 U/L (55-170); Lactate (Lactic Acid) 1.2 mmol/L (0.7-2.1); Magnesium 1.8 mg/dL (1.6-2.3)
[2022-08-29 22:52] LABS: Alanine Aminotransferase 14 IU/L (<50); Albumin Globulin Ratio 1.1 (1.0-2.8); Alkaline Phosphatase 83 U/L (38-126); Aspartate Aminotransferase 24 IU/L (17-59); BUN Creatinine Ratio 20.9 (6-22); Bilirubin Total 0.3 mg/dL (0.2-1.3); Blood Urea Nitrogen 9 mg/dL (9-20); Calcium 8.8 mg/dL (8.4-10.2); Carbon Dioxide 27 mmol/L (22-32); Chloride 100 mmol/L (98-107); Estimated Glomerular Filt Rate > 60 mL/min (>60); Globulin 3.5 g/dL (1.7-4.1); Glucose 89 mg/dL (70-100); HEMOLYSIS < 15 (0-50); Sodium 136 mmol/L (137-145); Total Protein 7.5 g/dL (6.3-8.2)
[2022-08-29 22:53] LABS: C-Reactive Protein Quant 3.4 mg/dL (<1.0)
[2022-08-29 23:03] LABS: COVID-19 CEPHEID 4-PLEX PCR Negative (Negative); Influenza A - CEPHEID Flu A POSITIVE (NEGATIVE); Influenza B - CEPHEID Flu B NEGATIVE (NEGATIVE); Respiratory Syncytial Virus Negative (Negative)
[2022-08-29 23:04] LABS: NT-proBNP (BNP-Adult 18+) 382 pg/mL (<125); Troponin I < 0.012 ng/mL (0.01-0.034)
[2022-08-29 23:10] LABS: Procalcitonin 0.36 ng/mL (<0.5)
[2022-08-30] VITALS (16 sets, daily range): BP systolic 106–123; BP diastolic 75–88; PULSE 95–126; RESP 16–36; TEMP 37.1–37.7; O2SAT 92–96; BMI 23.0
--- NOTE | 2022-08-30 00:15 | DI.CT.S_ITS ---
PROCEDURE: CT ANGIO CHEST PE PROTOCOL INDICATIONS: SOB, cough, tachypnea, critical Dimer TECHNIQUE: After the administration of intravenous contrast, 2 mm thick sections acquired from the pulmonary apices to the posterior costophrenic angles. 3-dimensional maximum intensity projection (MIP) coronal and sagittal reformats were then acquired through the thorax. For radiation dose reduction, the following was used: automated exposure control, adjustment of mA and/or kV according to patient size. COMPARISON: [facility], CR, XR CHEST 1V, 08/29/2022, 22:27. FINDINGS: Image quality: There is motion artifact limiting evaluation. Pulmonary arteries: Pulmonary arteries are normal in size, and demonstrate no intraluminal filling defects to suggest central pulmonary embolism. Lower Neck: No lymphadenopathy by size criteria. Thyroid: Visualized thyroid demonstrates no discrete nodules. Axillae: No lymphadenopathy by size criteria. Chest Wall: Unremarkable. Bones: Visualized osseous structures demonstrate no suspicious lesions. Lungs and Airways: There is consolidation within the left lower lobe with associated air bronchograms. A few punctate foci of calcifications within the consolidated left lower lobe are nonspecific. There are small indistinct centrilobular ground-glass nodules bilaterally with a left upper lobe dominance. There is mild dependent mucus within the trachea, left main stem bronchus, and left lower lobe bronchial structures. Pleura: No pneumothorax. There is a small to moderate left pleural effusion. There is mild associated left pleural thickening. Heart: Heart size is normal. There is a small pericardial effusion. Thoracic Vessels: The thoracic aorta is normal in size. Mediastinum and Aniya: No lymphadenopathy by size criteria. Esophagus: No wall thickening. No hiatal hernia. Abdomen: Visualized upper abdominal solid organs appear normal in the early arterial phase of enhancement. IMPRESSION: 1. No evidence of pulmonary embolism. 2. Consolidation of the left lower lobe with associated air bronchograms likely represent pneumonia. 3. Small to moderate left pleural effusion. 4. Small indistinct ground-glass nodules bilaterally with a centrilobular distribution suggestive of a mild infectious or inflammatory process. Dictated by: Damien Shanks M.D. on 08/30/2022 at 1:12 Approved by: Damien Shanks M.D. on 08/30/2022 at 1:18
--- NOTE | 2022-08-30 00:20 | PC.NURSE ---
To radiology via stretcher with tech
--- NOTE | 2022-08-30 00:40 | PC.NURSE ---
Returns to the ER via stretcher - Mom at bedside
--- NOTE | 2022-08-30 01:00 | PC.NURSE ---
Mom states that the patient has not had this heavy or noisy breathing - states that he was fine earlier in the day - the patient has intermittent bouts of noisy fast respirations then quiets - states that he feels ok
--- NOTE | 2022-08-30 01:45 | PC.NURSE ---
Resting quietly with Mom at bedside - intermittent noisy respirations - awaiting disposition - no needs voiced at this time
--- NOTE | 2022-08-30 02:50 | PC.NURSE ---
at bedside - Mom present
[2022-08-30] MEDS: cefTRIAXone 2,000 MG in SODIUM CHLORIDE 0.9% 100 ML 200 MG IV (03:30)
--- NOTE | 2022-08-30 03:56 | PC.NURSE ---
Report called to [facility]
[2022-08-30] MEDS: AZITHROMYCIN 500 MG in DEXTROSE 5% IN WATER 250 ML 250 MG IV ×2 (04:05→07:38)
--- NOTE | 2022-08-30 05:36 | DI.CT.S_ITS ---
PROCEDURE: CT SOFT TISSUE NECK W CON INDICATIONS: stridor? history of laryngeal edema TECHNIQUE: After the administration of intravenous contrast, 3.0 mm axial sections acquired from the sella to the aortic arch. Additional oblique axial 3.0 mm sections acquired through the pharynx. 3 mm thick coronal and sagittal reformats were generated. For radiation dose reduction, the following was used: automated exposure control. COMPARISON: [facility], MR, MR BRAIN WITH/WITHOUT CONTRAST, 09/24/2019, 17:26. [facility], CT, CT SOFT TISSUE NECK W CON, 01/17/2020, 23:36. FINDINGS: Image quality: Excellent. Lymph nodes: Mild left level 2A lymphadenopathy. Vessels: Visualized vasculature appears patent. Neck spaces: The oropharynx, nasopharynx, and pharynx demonstrate no mucosal lesions. The vocal cords, false vocal cords, pyriform sinuses, epiglottis, vallecula, and tongue base all appear normal. Extramucosal spaces appear unremarkable. Glands: The parotid and submandibular glands appear normal. Bones: No suspicious bony lesions. Visualized sinuses and mastoids appear unremarkable. IMPRESSION: Small left pleural effusion. Mild left level 2A lymphadenopathy, likely reactive. No significant change from preliminary report. Dictated by: Reyes Hernandez M.D. on 08/30/2022 at 8:28 Approved by: Reyes Hernandez M.D. on 08/30/2022 at 8:32
--- NOTE | 2022-08-30 05:45 | PM.HP.1 ---
History of Present Illness History of Present Illness Date Patient Seen: 08/30/22 Time Patient Seen: 05:00 Chief complaint: SOB Narrative: Mr. 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 He has had worsening respiratory symptoms over the last day. These include cough, shortness of breath and fever. At baseline he does stay seated and leaned over to one side, he does have drooling. He sometimes has loud stridorous sounds at night when laying flat. His mother notes that he has been breathing more shallow, labored, and loud upper airway sounds. She states he seems weaker and it is harder for her to understand him than usual. He had a fever measure to 102. She states he did not want to come in to the hospital In the ED workup was done, vitals notable for T 102, tachycardia, tachypnea. He had no hypoxia. Labs notable for WBC 7.9, hgb 12.5, plts 26, creatinine 0.43. D-dimer 2020. Flu positive. Lactate 1.2. CRP 2.4. Trop negative. Chest xray read as possible small left pleural effusion. CT shows no PE, there are consolidations noted in the left lower lobe with air bronchograms, consistent with pneumonia. There are small ground glass nodules bilaterally with centrilobular distribution. He was ordered for fluids, ceftraixone, azithromycin, and tamiflu and admitted for further treatment. He was admitted for further treatment. 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 Father No problems noted. Social History: household members none Prior Living Arrangements Apartment/Condo Safety & Behavioral: Feels Safe in Current Yes Environment Been Physically Hurt or No Threatened By a Person Tobacco & Substance use: Smoking Status Former smoker alcohol intake never alcohol intake frequency 0-2 drinks per day Substance Use Type marijuana Meds Home Medications and Allergies Home Medications Medication Instructions Recorded Confirmed Type Battery Powered Lift #1 ea 03/02/18 02/04/22 Rx Power Chair #1 ea 10/16/18 02/04/22 Rx Semi-electric hospital bed #1 ea 11/17/18 02/04/22 Rx Disabled Parking #1 ea 01/15/19 02/04/22 Rx Shower Chair #1 ea 07/04/19 02/04/22 Rx baclofen 5 mg tablet 5 mg PO DAILY 07/20/21 02/04/22 History onabotulinumtoxinA 100 unit 200 unit IM ONCE 07/20/21 02/04/22 History solution for injection (Botox) XL mattress for semi-electric #1 ea 10/29/21 02/04/22 Rx hospital bed ferrous sulfate 325 mg (65 mg 130 mg PO DAILY 10/29/21 02/04/22 History iron) tablet sertraline 100 mg tablet 150 mg PO DAILY #135 tabs 10/29/21 02/04/22 Rx Allergies Allergy/AdvReac Type Severity Reaction Status Date / Time Penicillins [PENICILLINS] Allergy Severe RASH Verified 02/04/22 15:46 levofloxacin Allergy Intermediate Rash Verified 02/04/22 15:46 Review of Systems Review of Systems Narrative: 14 systems reviewed and negative aside from what is noted in HPI Exam Vital Signs (past 8 hours): - 08/29/22 22:00 08/29/22 22:03 08/29/22 22:05 Temperature 102 F H Pulse Rate 118 H 120 H 119 H Respiratory Rate 30 H 35 H Blood Pressure 133/84 Pulse Oximetry 96 98 97 Oxygen Delivery Method Room Air Room Air Room Air 08/29/22 22:05 08/29/22 22:30 08/29/22 22:31 Temperature Pulse Rate 121 H Respiratory Rate 34 H Blood Pressure 133/84 124/90 Pulse Oximetry 95 Oxygen Delivery Method Room Air 08/29/22 22:31 08/29/22 23:00 08/29/22 23:30 Temperature Pulse Rate 121 H 119 H 119 H Respiratory Rate 34 H 34 H 32 H Blood Pressure Pulse Oximetry 94 96 96 Oxygen Delivery Method Room Air 08/30/22 00:00 08/30/22 00:35 08/30/22 01:00 Temperature Pulse Rate 122 H 125 H 122 H Respiratory Rate 33 H 35 H Blood Pressure Pulse Oximetry 94 93 94 Oxygen Delivery Method 08/30/22 01:30 08/30/22 02:00 08/30/22 02:30 Temperature Pulse Rate 126 H 122 H 123 H Respiratory Rate 35 H 36 H 35 H Blood Pressure Pulse Oximetry 93 94 Oxygen Delivery Method 08/30/22 03:00 08/30/22 03:30 08/30/22 03:45 Temperature Pulse Rate 118 H 120 H 120 H Respiratory Rate 36 H 32 H 34 H Blood Pressure Pulse Oximetry 94 94 95 Oxygen Delivery Method 08/30/22 03:45 Temperature 99.8 F H Pulse Rate 120 H Respiratory Rate 30 H Blood Pressure 123/88 Pulse Oximetry 95 Oxygen Delivery Method Oxygen Delivery Method Room Air Narrative Exam Narrative: GEN: in respiratory distress HEENT: moist mucous membranes, PERRL NECK: trachea midline, no JVD, high pitched breath sounds PULM: coarse breath sounds bilaterally CV: tachycardic, no murmurs ABD: soft, nontender, nondistended, no organomegaly EXT: warm and well perfused with no edema NEURO: right sided weakness, dysarthria, drooling which per family is baseline Objective Labs Result Diagrams: 08/29/22 22:27 08/29/22 22:27 Labs: Laboratory Results - last 24 hr 08/29/22 08/29/22 08/29/22 22:00 22:27 22:27 WBC 7.9 RBC 4.59 Hgb 12.5 L Hct 37.4 L MCV 81.5 MCH 27.2 MCHC 33.4 RDW 13.8 Plt Count 264 Neut % (Auto) 89.9 H Lymph % (Auto) 4.5 L [place] % (Auto) 3.3 Eos % (Auto) 0.9 L Baso % (Auto) 1.4 Neut # (Auto) 7100 H Lymph # (Auto) 400 L [place] # (Auto) 300 Eos # (Auto) 100 Baso # (Auto) 100 D-Dimer 2020 H Sodium Potassium Chloride Carbon Dioxide BUN Creatinine Estimated GFR BUN/Creatinine Ratio Glucose Lactate Calcium Magnesium Total Bilirubin AST ALT Alkaline Phosphatase Total Creatine Kinase CK-MB (CK-2) CK-MB (CK-2) Rel Index Troponin I C-Reactive Protein NT-Pro-B Natriuret Pep Total Protein Albumin Globulin Albumin/Globulin Ratio Procalcitonin SARS-CoV-2 (PCR) Negative Influenza A (RT-PCR) Flu a positive H Influenza B (RT-PCR) Flu b negative RSV (PCR) Negative 08/29/22 08/29/22 08/29/22 22:27 22:27 22:27 WBC RBC Hgb Hct MCV MCH MCHC RDW Plt Count Neut % (Auto) Lymph % (Auto) [place] % (Auto) Eos % (Auto) Baso % (Auto) Neut # (Auto) Lymph # (Auto) [place] # (Auto) Eos # (Auto) Baso # (Auto) D-Dimer Sodium 136 L Potassium 4.0 Chloride 100 Carbon Dioxide 27 BUN 9 Creatinine 0.43 L Estimated GFR > 60 BUN/Creatinine Ratio 20.9 Glucose 89 Lactate 1.2 Calcium 8.8 Magnesium 1.8 Total Bilirubin 0.3 AST 24 ALT 14 Alkaline Phosphatase 83 Total Creatine Kinase 33 L CK-MB (CK-2) TNP CK-MB (CK-2) Rel Index TNP Troponin I < 0.012 C-Reactive Protein 3.4 H NT-Pro-B Natriuret Pep 382 H Total Protein 7.5 Albumin 4.0 Globulin 3.5 Albumin/Globulin Ratio 1.1 Procalcitonin 0.36 SARS-CoV-2 (PCR) Influenza A (RT-PCR) Influenza B (RT-PCR) RSV (PCR) Assessment & Plan Assessment & Plan narrative: 1. Significant acute respiratory distress secondary to pneumonia and influenza A -CTA negative for PE -flu A positive on admission, plan for 5 days of tamiflu -CT also consistent with pneumonia, will be started on aztreonam, azithromycin given allergies -had labored upper airway sounds, dexamethasone ordered empirically -he has history of laryngeal edema requiring intubation, CT of neck ordered for further evaluation -discussed with his mother and he is full code and ok to intubate if needed -plan for compression vest, has been recommended in pulm consult 2. Depression -continue sertraline 3. History of glioma brain tumor with residual hemiparesi -patient has minimal motion of his right upper extremity, rigidity or bilateral lower extremities, uses a power wheelchair for mobilization. -patient has 24 hour non professional caregiver support at home -fall precautions -continue baclofen 4, Anemia, chronic -monitor H&H CODE: Full Proxy: Marianela Paulino, mother I have utilized all available resources to reconcile the patient's home medications Time Spent With Patient Critical Care time: I spent a total of [] minutes of critical care time on this patient's care today; this time is exclusive of procedural time.
[2022-08-30 06:01] LABS: HCO3 VBG 24 mmol/L (23-28); PCO2 VBG 32.9 mmHg (45-50); PO2 VBG 39 mmHg (35-45); Total CO2 VBG 25 mmol/L (24-29); pH VBG 7.48 (7.33-7.43)
[2022-08-30 06:02] LABS: Oxygen Saturation VBG 78 % (70-75)
[2022-08-30] MEDS: dexAMETHasone 20 MG in SODIUM CHLORIDE 0.9% 50 ML 208 MG IV (06:18)
--- NOTE | 2022-08-30 09:24 | DIET.CONS2 ---
Dietary Inpatient Consultation Note Admission Date: 08/30/2022 03:04 RD changed pt to home diet of Dysphagia Puree with nectar thick liquids. Diet: 08/30/22 Breakfast Dysphagia Diet Diet Modifications: May Advance Diet as Tolerated: No Liquid consistency: [place] Consistency Food texture: Dysphagia Pureed Electronically Signed by: Laura Interiano 08/30/22 09:24 Clinical Dietitian [address] [id number]
[2022-08-30] MEDS: AZTREONAM 1 GM in DEXTROSE 5 % IN WATER 50 ML IV (09:53)
--- NOTE | 2022-08-30 12:17 | CM.DANOTE ---
Initial Discharge Assessment Note: Case reviewed, briefly met with patient but called Mother Marianela who provided information. Introduced self & role. Payer: Medicaid and [facility] PCP: Nargis Fernandez 42 year old single male admitted early this morning with respiratory distress, diagnosed with flu and pneumona. History of glioma brain tumer in infancy, resulting in R hemiparesis. Patient resting quietly in bed, difficulty interacting in understanding speech. Spoke with his mother by phone who states she will be in later today. She provides all his care at home. He is w/c bound and dependent in needs. He is able to feed self, on a soft diet. He has difficulty ingesting liquids. They have all of the appropriate DME in the home they share. Plan: Home with home health. Inquire of mother what if any HH agencies they have used in past. MJ Discharge Planning/Care Management CM Discharge Assessment Start: 08/30/22 12:13 Freq: Status: Active Protocol: Document 08/30/22 12:14 (Rec: 08/30/22 12:16 [id number]) Discharge Planning Assessment Assigned Senior Application Security Consultant Danae New RN/DCP Advance Directives? No Advance Directives on File No History Provided By Parents Has Patient been admitted in last 30 No days? Prior Living Arrangements Apartment/Condo Household Members family Comment Mother Marianela, primary cg Type of transporation used prior to Relies on Others admit Independent with ADL's No: can perform some ADLs independently Is patient alert and oriented? Yes: Alert Needs Assistance With Bathing,Grooming,Meal Prep, Toileting,Managing Medications ,Home Chores / Shopping Caregiver for Another No DME Already Rented / Owned Hospital Bed,Wheelchair Comment Patient is mostly bedbound/ wheelchair bound at baseline with neurological issues from previous brain tumor. Has home ashley lift Patient/Family Preference Home with Home Health Comment Mother primary [email or web address] Discharge Plan Home Referrals Initiated Home Health Whiteboard Updated in Patient Room with Yes name and ext. # of Senior Application Security Consultant Review Status In Process Next Review Type Continued Stay Review
[2022-08-30] MEDS: cefTRIAXone 1,000 MG in SODIUM CHLORIDE 0.9% 100 ML 200 MG IV (18:46)
[2022-08-31 03:55] VITALS: BP 96/64; PULSE 86; RESP 18; TEMP 37.2; O2SAT 93
[2022-08-31] MEDS: AZITHROMYCIN 500 MG in DEXTROSE 5% IN WATER 250 ML 250 MG IV (06:52)
--- NOTE | 2022-08-31 07:33 | P.PN_ITS ---
Exam Vital Signs (past 8 hours): - 08/30/22 23:35 08/31/22 03:55 Temperature 98.9 F 99 F Pulse Rate 95 H 86 Respiratory Rate 18 18 Blood Pressure 114/79 96/64 Pulse Oximetry 93 93 Oxygen Flow Rate 1 1 Oxygen Delivery Method Room Air Oxygen Flow Rate 1 Narrative Exam Narrative: GEN: in respiratory distress HEENT: moist mucous membranes, PERRL NECK: trachea midline, no JVD, high pitched breath sounds PULM: coarse breath sounds bilaterally CV: tachycardic, no murmurs ABD: soft, nontender, nondistended, no organomegaly EXT: warm and well perfused with no edema NEURO: right sided weakness, dysarthria, drooling which per family is baseline Objective Labs Result Diagrams: 08/31/22 08:15 08/31/22 08:15 [facility] Medical History Anemia Cerebral palsy Depression Difficulty with speech Dysarthria Former smoker Gingivitis Glioma Hemiparesis (~1984) Pneumonia 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 Father No problems noted. Social History marital status: unmarried,single household members: family Smoking Status: Former smoker alcohol intake: never substance use type: marijuana Assessment & Plan Assessment & Plan narrative: 1. Acute hypoxic respiratory failure secondary to pneumonia and influenza A -CTA negative for PE, patient requiring 2L NC to maintain sats -flu A positive on admission, plan for 5 days of tamiflu -CT also consistent with pneumonia, will be started on aztreonam, azithromycin given allergies -had labored upper airway sounds, dexamethasone ordered empirically -he has history of laryngeal edema requiring intubation, CT of neck ordered for further evaluation -discussed with his mother and he is full code and ok to intubate if needed -plan for compression vest, has been recommended in pulm consult 2. Depression -continue sertraline 3. History of glioma brain tumor with residual hemiparesis and functional quadraplegia -patient has minimal motion of his right upper extremity, rigidity or bilateral lower extremities, uses a power wheelchair for mobilization. -patient has 24 hour non professional caregiver support at home -fall precautions -continue baclofen 4, Anemia, chronic -monitor H&H CODE: Full Proxy: Marianela Paulino, mother I have utilized all available resources to reconcile the patient's home medications Time Spent With Patient Critical Care time: I spent a total of [] minutes of critical care time on this patient's care today; this time is exclusive of procedural time.
[2022-08-31 08:00] VITALS: BP 108/76; PULSE 91; RESP 18; TEMP 36.8; O2SAT 99
[2022-08-31 08:50] LABS: Add Manual Diff / Slide Review NO; Basophils Absolute Auto 0 /uL (0-100); Basophils Percent Auto 0.5 % (0-2); Eosinophils Absolute Auto 0 /uL (0-450); Hematocrit 34.9 % (41-53); Hemoglobin 11.7 g/dL (13.5-17.5); Lymphocytes Absolute Auto 500 /uL (1100-4500); Lymphocytes Percent Auto 11.1 % (25-40); Mean Corpuscular HGB Conc 33.6 % (30-36); Mean Corpuscular Hemoglobin 27.1 PG (26-34); Mean Corpuscular Volume 80.6 fL (80-100); Monocytes Absolute Auto 200 /uL (0-900); Monocytes Percent Auto 4.3 % (3-14); Neutrophils Absolute Auto 3800 /uL (1500-7000); Neutrophils Percent Auto 84.1 % (50-75); Platelet Count 243 X10^3/uL (150-400); Red Blood Cell Count 4.33 X10^6/uL (4.5-5.9); Red Cell Distribution Width 13.4 % (11.6-14.8); White Blood Cell Count 4.5 X10^3/uL (4.5-11.0)
[2022-08-31 09:17] LABS: BUN Creatinine Ratio 24.4 (6-22); Blood Urea Nitrogen 11 mg/dL (9-20); Calcium 8.4 mg/dL (8.4-10.2); Carbon Dioxide 26 mmol/L (22-32); Chloride 99 mmol/L (98-107); Estimated Glomerular Filt Rate > 60 mL/min (>60); Glucose 99 mg/dL (70-100); HEMOLYSIS < 15 (0-50); Potassium 3.9 mmol/L (3.4-5.1); Sodium 134 mmol/L (137-145)
[2022-08-31 09:22] VITALS: O2SAT 92
[2022-08-31] MEDS: SERTRALINE 50 MG TABLET 150 MG PO (09:22)
[2022-08-31] MEDS: ENOXAPARIN 40 MG/0.4 ML SYRINGE SUBCUT (09:22)
[2022-08-31 13:20] VITALS: BP 108/71; PULSE 85; RESP 18; TEMP 36.9; O2SAT 96
--- NOTE | 2022-08-31 14:02 | P.DS_ITS ---
History of Present Illness History of Present Illness Date Patient Seen: 08/31/22 Time Patient Seen: 05:00 Chief complaint: SOB Narrative: Mr. 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 He has had worsening respiratory symptoms over the last day. These include cough, shortness of breath and fever. At baseline he does stay seated and leaned over to one side, he does have drooling. He sometimes has loud stridorous sounds at night when laying flat. His mother notes that he has been breathing more shallow, labored, and loud upper airway sounds. She states he seems weaker and it is harder for her to understand him than usual. He had a fever measure to 102. She states he did not want to come in to the hospital In the ED workup was done, vitals notable for T 102, tachycardia, tachypnea. He had no hypoxia. Labs notable for WBC 7.9, hgb 12.5, plts 26, creatinine 0.43. D- dimer 2020. Flu positive. Lactate 1.2. CRP 2.4. Trop negative. Chest xray read as possible small left pleural effusion. CT shows no PE, there are consolidations noted in the left lower lobe with air bronchograms, consistent with pneumonia. There are small ground glass nodules bilaterally with centrilobular distribution. He was ordered for fluids, ceftraixone, azithromycin, and tamiflu and admitted for further treatment. He was admitted for further treatment. Discharge Providers Provider Date of admission: 08/30/22 03:04 Discharge Date: 08/31/22 Primary care physician: Nargis Fernandez DO Discharge provider: Dinh Rutledge DO Summary Hospital Course Discharge Diagnosis: 1. Acute hypoxic respiratory failure secondary to pneumonia and influenza A, resp failure resolved -CTA negative for PE, patient intially requiring 2L NC to maintain sats -flu A positive on admission -CT also consistent with pneumonia, given rocephin, azithromycin then discharged on po augmentin and azithro -he has history of laryngeal edema requiring intubation, CT of neck negative for airway swelling -discussed with his mother and he is full code and ok to intubate if needed -able to wean off O2 2. Depression -continue sertraline 3. History of glioma brain tumor with residual hemiparesis and functional quadraplegia -patient has minimal motion of his right upper extremity, rigidity or bilateral lower extremities, uses a power wheelchair for mobilization. -patient has 24 hour non professional caregiver support at home -fall precautions -continue baclofen 4, Anemia, chronic -monitor H&H Hospital Course: Patient for dyspnea and hypoxic respiratory failure and found to be flu positive. Was having stridor with concern for possible laryngeal edema so CT neck done which was reassuring. Patient did receive a dose of IV Decadron. His stridor improved as well as his oxygen requirements and was able to wean to room air. Received then transitioned to p.o. Augmentin and azithromycin to finish at home for possible community-acquired pneumonia. Time Spent with Patient Time spent: Greater than 30 minutes Exam Vital Signs (past 8 hours): - 08/31/22 08:00 08/31/22 09:22 08/31/22 07:00 Temperature 98.2 F Pulse Rate 91 H Respiratory Rate 18 Blood Pressure 108/76 Pulse Oximetry 99 92 Oxygen Delivery Method Nasal Cannula Nasal Cannula Oxygen Flow Rate 0 1 08/31/22 13:20 Temperature 98.4 F Pulse Rate 85 Respiratory Rate 18 Blood Pressure 108/71 Pulse Oximetry 96 Oxygen Delivery Method Oxygen Flow Rate 1 Oxygen Delivery Method Nasal Cannula Oxygen Flow Rate 1 Narrative Exam Narrative: GEN: in no respiratory distress HEENT: moist mucous membranes, PERRL NECK: trachea midline, no JVD, high pitched breath sounds PULM: coarse breath sounds bilaterally improving CV: tachycardic, no murmurs ABD: soft, nontender, nondistended, no organomegaly EXT: warm and well perfused with no edema NEURO: right sided weakness, dysarthria, drooling which per family is baseline Objective Labs Result Diagrams: 08/31/22 08:15 08/31/22 08:15 Labs: Laboratory Results - last 24 hr 08/31/22 08/31/22 08:15 08:15 WBC 4.5 RBC 4.33 L Hgb 11.7 L Hct 34.9 L MCV 80.6 MCH 27.1 MCHC 33.6 RDW 13.4 Plt Count 243 Neut % (Auto) 84.1 H Lymph % (Auto) 11.1 L [place] % (Auto) 4.3 Eos % (Auto) 0.0 L Baso % (Auto) 0.5 Neut # (Auto) 3800 Lymph # (Auto) 500 L [place] # (Auto) 200 Eos # (Auto) 0 Baso # (Auto) 0 Sodium 134 L Potassium 3.9 Chloride 99 Carbon Dioxide 26 BUN 11 Creatinine 0.45 L Estimated GFR > 60 BUN/Creatinine Ratio 24.4 H Glucose 99 Calcium 8.4 PFSH Medical History Anemia Cerebral palsy Depression Difficulty with speech Dysarthria Former smoker Gingivitis Glioma Hemiparesis (~1984) Pneumonia 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 Father No problems noted. Social History marital status: unmarried,single household members: family Smoking Status: Former smoker alcohol intake: never substance use type: marijuana Discharge Plan Discharge Plan Patient Disposition: Home Provider Discharge Comment: Jonnie was admitted for worsening shortness of breath and found to have the flu. He was given IV antibiotics for a possible pneumonia and improved and was able to come off oxygen. He will need to finish a few more days of oral antibiotics at home. Discharge orders & Medications Prescriptions: New amoxicillin-pot clavulanate 875-125 mg tablet 1 tab PO BID 3 Days Qty: 6 0RF Rx Instructions: start morning of 09/01 Continued (DME) Disabled Parking Qty: 1 0RF Rx Instructions: I find this patient to be medically disabled and qualified for Disabled Parking as indicated, and signed, on the Accompanying Disabled Parking Application for Individuals ferrous sulfate 325 mg (65 mg iron) tablet 130 mg PO DAILY sertraline 100 mg tablet 150 mg PO DAILY Qty: 135 3RF (DME) XL mattress for semi-electric hospital bed See Rx Instructions .Route .MEDSUPPLY Qty: 1 0RF Rx Instructions: use daily as directed (DME) Battery Powered Lift Qty: 1 0RF Dose Instruction: As directed Rx Instructions: Use daily as directed for transfers to and from bed (DME) Power Chair tall Qty: 1 0RF Dose Instruction: As directed Rx Instructions: As directed for patient care with activities of daily living. Chair needs to tilt foreword and tilt backwards for patient care. Pt is 6 feet tall and will need to fit height. (DME) Semi-electric hospital bed Qty: 1 0RF Dose Instruction: As directed Rx Instructions: Semi-electric hospital bed to permit transfers to wheelchair and to attach traction equipment. Must be large enough and long enough to accommodate his height and weight. EDEN: 99 months (DME) Shower Chair Qty: 1 0RF Rx Instructions: As directed for patient care with activities of daily living. Chair needs to tilt foreword and tilt backwards for patient care. Pt is 6 feet tall and will need to fit height. baclofen 5 mg tablet 5 mg PO DAILY Botox 100 unit recon soln 200 unit IM ONCE Label Comments: Mother of patient believes he is due for next injection Rx Instructions: Goes every 3 Months for injection Follow up/Referrals: Nargis Fernandez DO [Primary Care Provider] - 2 Weeks Visit Report/Discharge Packet Instructions: DI for Influenza -- Adult Discharge Data Primary Care Provider: Nargis Fernandez
[2022-08-31] MEDS: cefTRIAXone 1,000 MG in SODIUM CHLORIDE 0.9% 100 ML 200 MG IV (14:13)
--- NOTE | 2022-08-31 14:14 | CM.DPNOTE ---
DCP Note: Patient has dc orders. No SW needs. Patient's mother primary cg, SHAUN. Plan: DC home unto care of mother. Danae New RN/DCP
== END 2022-08-31 18:11 | disposition home or self-care (01) | DRG 193 ==
LOC: ED 22:53 → AC 08-30 03:58
PROVIDERS: Admitting Provider Internal Medicine; Emergency Provider Emergency Medicine; PCP Family Medicine; Referring Provider Emergency Medicine; Visit Provider Internal Medicine
DX: J18.9 Pneumonia, unspecified organism (principal); J96.01 Acute respiratory failure with hypoxia; G81.91 Hemiplegia, unspecified affecting right dominant side; J10.1 Influenza due to other identified influenza virus with other respiratory manifestations; F32.A Depression, unspecified; D64.9 Anemia, unspecified; Z86.69 Personal history of other diseases of the nervous system and sense organs; Z87.891 Personal history of nicotine dependence
CPT/HCPCS: 0241U; 36415; 70491; 71045; 71275; 80048; 80053; 82550; 82805; 83605; 83735; 83880; 84145; 84484; 85025; 85379; 86140; 87040; 93005; 94760; 96365; 96367; 96375; 99284; J0696; J1100; J1650; J1885; Q9967

== ENCOUNTER → 2022-11-21 13:45 | Outpatient (CLI) | payer MEDICAID, OTHER, SELFPAY ==
[2020-01-21 09:10] VITALS: PULSE 63; RESP 18; O2SAT 100
[2022-08-30 04:29] VITALS: BMI 23.0
--- NOTE | 2022-11-21 13:47 | DI.RAD.S_ITS ---
PROCEDURE: XR CHEST 2V INDICATIONS: Cough TECHNIQUE: 2 views of the chest were acquired. COMPARISON: [facility], CR, XR CHEST 1V, 08/29/2022, 22:27. FINDINGS: Surgical changes and devices: None. Lungs and pleura: Left lower lobe infiltrate. No pneumothorax. On the lateral view there is a layering hyperdensity consistent with pleural effusion. Mediastinum: Mediastinal contours are normal. Heart size is normal. Bones and chest wall: No suspicious bony abnormalities. Soft tissues appear unremarkable. IMPRESSION: 1. Left pleural effusion. 2. Left lower lobe infiltrate consistent with atelectasis or pneumonia. Dictated by: Dejan sEcudero M.D. on 11/21/2022 at 15:13 Approved by: Dejan Escudero M.D. on 11/21/2022 at 15:15
== END ==
PROVIDERS: PCP Family Medicine; Referring Provider Nurse Practitioner Family; Visit Provider Nurse Practitioner Family
DX: J90 Pleural effusion, not elsewhere classified (principal); R91.8 Other nonspecific abnormal finding of lung field; R05.9 Cough, unspecified
CPT/HCPCS: 71046

== ENCOUNTER → 2022-12-08 16:56 | Outpatient (CLI) | payer MEDICAID, OTHER, SELFPAY ==
[2020-01-21 09:10] VITALS: PULSE 63; RESP 18; O2SAT 100
[2022-08-30 04:29] VITALS: BMI 23.0
[2022-12-08 17:45] LABS: Add Manual Diff / Slide Review NO; Basophils Absolute Auto 200 /uL (0-100); Basophils Percent Auto 3.5 % (0-2); Eosinophils Absolute Auto 200 /uL (0-450); Hematocrit 32.8 % (41-53); Hemoglobin 10.9 g/dL (13.5-17.5); Lymphocytes Absolute Auto 1600 /uL (1100-4500); Lymphocytes Percent Auto 23.2 % (25-40); Mean Corpuscular Hemoglobin 25.7 PG (26-34); Mean Corpuscular Volume 77.9 fL (80-100); Monocytes Absolute Auto 500 /uL (0-900); Monocytes Percent Auto 7.7 % (3-14); Neutrophils Absolute Auto 4400 /uL (1500-7000); Neutrophils Percent Auto 62.6 % (50-75); Platelet Count 411 X10^3/uL (150-400); Red Blood Cell Count 4.21 X10^6/uL (4.5-5.9); Red Cell Distribution Width 14.7 % (11.6-14.8)
[2022-12-08 18:15] LABS: Alanine Aminotransferase 34 IU/L (<50); Albumin 3.3 g/dL (3.5-5.0); Albumin Globulin Ratio 0.9 (1.0-2.8); Alkaline Phosphatase 83 U/L (38-126); Aspartate Aminotransferase 46 IU/L (17-59); BUN Creatinine Ratio 18.4 (6-22); Bilirubin Total 0.3 mg/dL (0.2-1.3); Blood Urea Nitrogen 7 mg/dL (9-20); Calcium 8.3 mg/dL (8.4-10.2); Carbon Dioxide 29 mmol/L (22-32); Chloride 98 mmol/L (98-107); Estimated Glomerular Filt Rate > 60 mL/min (>60); Globulin 3.7 g/dL (1.7-4.1); Glucose 78 mg/dL (70-100); HEMOLYSIS < 15 (0-50); Potassium 3.9 mmol/L (3.4-5.1); Sodium 133 mmol/L (137-145)
== END ==
PROVIDERS: PCP Family Medicine; Referring Provider Family Medicine; Visit Provider Family Medicine
DX: D64.9 Anemia, unspecified (principal); Z87.898 Personal history of other specified conditions
CPT/HCPCS: 36415; 80053; 85025

== ENCOUNTER → 2022-12-16 11:35 | Outpatient (CLI) | payer MEDICAID, OTHER, SELFPAY ==
[2020-01-21 09:10] VITALS: PULSE 63; RESP 18; O2SAT 100
[2022-08-30 04:29] VITALS: BMI 23.0
--- NOTE | 2022-12-16 11:36 | DI.RAD.S_ITS ---
PROCEDURE: XR CHEST 2V INDICATIONS: Pneumonia f/u TECHNIQUE: 2 views of the chest were acquired. COMPARISON: [facility], CR, XR CHEST 2V, 11/21/2022, 13:55. FINDINGS: Surgical changes and devices: None. Lungs and pleura: Small to moderate left pleural effusion is seen with left lower lobe infiltrate versus atelectasis. Mild pulmonary vascular congestion is seen. Right lung is clear. No gross pneumothorax. Mediastinum: Mediastinal contours are normal. Heart size is normal. Bones and chest wall: No suspicious bony abnormalities. Soft tissues appear unremarkable. IMPRESSION: Persistent mild to moderate left pleural effusion with left lower lobe atelectasis versus small infiltrates. Mild pulmonary vascular congestion. No gross pneumothorax. Right lung is clear. Dictated by: Jarocho Garzon M.D. on 12/16/2022 at 12:57 Approved by: Jarocho Garzon M.D. on 12/16/2022 at 12:57
== END ==
PROVIDERS: PCP Family Medicine; Referring Provider Physician Assistant; Visit Provider Physician Assistant
DX: J90 Pleural effusion, not elsewhere classified (principal); J98.11 Atelectasis; J18.9 Pneumonia, unspecified organism; R09.89 Other specified symptoms and signs involving the circulatory and respiratory systems
CPT/HCPCS: 71046

== ENCOUNTER → 2022-12-28 16:20 | Outpatient (CLI) | payer MEDICAID, SELFPAY ==
[2022-12-16 13:42] VITALS: PULSE 63; RESP 18; O2SAT 100; BMI 23.0
--- NOTE | 2022-12-28 16:23 | DI.RAD.S_ITS ---
PROCEDURE: XR CHEST 2V INDICATIONS: Pneumonia follow up TECHNIQUE: 2 views of the chest were acquired. COMPARISON: [facility], CR, XR CHEST 2V, 12/16/2022, 11:38. FINDINGS: Surgical changes and devices: None. Lungs and pleura: Hazy airspace opacities are again seen in left perihilar and infrahilar region. small left pleural effusion is also seen. No pneumothorax. Mediastinum: Mediastinal contours are normal. Heart size is normal. Bones and chest wall: No suspicious bony abnormalities. Soft tissues appear unremarkable. IMPRESSION: Persistent left perihilar and lower lobe infiltrates. Small left pleural effusion. No pneumothorax. Dictated by: Jarocho Garzon M.D. on 12/28/2022 at 16:45 Approved by: Jarocho Garzon M.D. on 12/28/2022 at 16:46
== END ==
PROVIDERS: PCP Family Medicine; Referring Provider Family Medicine; Visit Provider Family Medicine
DX: J18.9 Pneumonia, unspecified organism (principal); J90 Pleural effusion, not elsewhere classified
CPT/HCPCS: 71046

== ENCOUNTER 2023-01-03 18:30 | Emergency (ER) | payer MEDICAID, SELFPAY ==
[2022-12-16 13:42] VITALS: PULSE 63; RESP 18; O2SAT 100; BMI 23.0
[2023-01-03] VITALS (11 sets, daily range): BP systolic 105–130; BP diastolic 77–87; PULSE 91–112; RESP 22–31; TEMP 37; O2SAT 94–97; BMI 20.3
--- NOTE | 2023-01-03 18:54 | DI.RAD.S_ITS ---
PROCEDURE: XR CHEST 1V INDICATIONS: suspected sepsis TECHNIQUE: One view of the chest was acquired. COMPARISON: [facility], CR, XR CHEST 2V, 12/28/2022, 16:25. FINDINGS: Surgical changes and devices: None. Lungs and pleura: Dense retrocardiac opacity and left perihilar interstitial opacities. There is blunting the left costophrenic sulcus laterally and overall left hemithorax volume loss. Mediastinum: Leftward shift of mediastinal structures. Normal heart size and no central venous congestion. Bones and chest wall: No suspicious bony lesions. Overlying soft tissues appear unremarkable. IMPRESSION: 1. Persistent dense retrocardiac opacity and left perihilar infiltrate. Given volume loss in the left hemithorax, findings are suggestive of left lower lobe atelectasis. An underlying malignancy should be excluded. Routine chest CT with contrast is recommended. Dictated by: Vicky King M.D. on 01/03/2023 at 20:51 Approved by: Vicky King M.D. on 01/03/2023 at 20:54
--- NOTE | 2023-01-03 18:58 | ED_ITS ---
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 His mom notes that after the azithromycin treatment at the end of November did not seem to completely improve. He is to the point where he has difficulty laying flat, if he is lying on his left side he is unable to breathe at all, increasing weakness and cough. He does currently have a chronic bedsore over the right side of his sacral area. Related Data Home Medications Medication Instructions Recorded Confirmed baclofen 5 mg tablet 5 mg PO DAILY 07/20/21 12/16/22 onabotulinumtoxinA 100 unit 200 unit IM ONCE 07/20/21 12/16/22 solution for injection (Botox) ferrous sulfate 325 mg (65 mg 130 mg PO DAILY 10/29/21 12/16/22 iron) tablet Previous Rx's Medication Instructions Recorded Battery Powered Lift #1 ea 03/02/18 Power Chair #1 ea 10/16/18 Semi-electric hospital bed #1 ea 11/17/18 Disabled Parking #1 ea 01/15/19 Shower Chair #1 ea 07/04/19 XL mattress for semi-electric #1 ea 09/27/22 hospital bed menthol 0.44 %-zinc oxide 20.6 % 1 applic topical QID PRN skin 09/27/22 topical ointment (Calmoseptine) irritation #113 grams sertraline 100 mg tablet See Rx Instructions .Route 09/28/22 .COMPLEX #45 tabs Allergies Allergy/AdvReac Type Severity Reaction Status Date / Time Penicillins [PENICILLINS] Allergy Severe RASH Verified 01/03/23 19:01 levofloxacin Allergy Intermediate Rash Verified 01/03/23 19:01 Review of Systems <Dinora Dasilva MD - Last Filed: 01/14/23 15:46> Review of Systems Narrative: Pertinent positive and negative findings as per HPI Patient History <Dinora Dasilva MD - Last Filed: 01/14/23 15:46> Medical History Anemia Cerebral palsy Depression Difficulty with speech Dysarthria Former smoker Gingivitis Glioma Hemiparesis (~1984) Pneumonia 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 Father No problems noted. Social History marital status: unmarried,single household members: family Smoking Status: Former smoker alcohol intake: never substance use type: marijuana Smoking Status: Former smoker alcohol intake frequency: 0-2 drinks per day Substance Use Type: marijuana Exam <Dinora Dasilva MD - Last Filed: 01/14/23 15:46> Initial Vital Signs Initial Vital Signs: Vital Signs Temperature 98.6 F 01/03/23 18:38 Pulse Rate 112 H 01/03/23 18:38 Respiratory Rate 26 H 01/03/23 18:38 Blood Pressure 105/79 01/03/23 18:38 Pulse Oximetry 96 01/03/23 18:38 Oxygen Delivery Method Room Air 01/03/23 18:38 General: Chronically ill-appearing in mild distress, able to cooperate with exam. HEENT: Moist mucous membranes, mild debris in both eyes but otherwise normal sclera with reactive pupils, Neck: No JVD, supple Respiratory: Lungs mild wheezing in all lung matthew with diffuse rhonchi through the entire left lung field Cardiac: Tachycardic without murmurs Abdomen: Soft, nontender, good bowel tones, no flank pain (patient states that he does have sensation in his abdomen) Skin: Pale but otherwise Warm and dry, no rashes. Bed sore over the right sacral area Neurologic: Functional quadriplegia significantly worse weakness on the right side with significant muscle atrophy. Extremities: No trauma, well perfused Psych: Cooperative, at baseline with good eye contact <Norman Perrin DO - Last Filed: 01/04/23 18:49> Initial Vital Signs Initial Vital Signs: Vital Signs Temperature 98.6 F 01/03/23 18:38 Pulse Rate 112 H 01/03/23 18:38 Respiratory Rate 26 H 01/03/23 18:38 Blood Pressure 105/79 01/03/23 18:38 Pulse Oximetry 96 01/03/23 18:38 Oxygen Delivery Method Room Air 01/03/23 18:38 <Ladi Connolly, DO - Last Filed: 01/06/23 22:14> Initial Vital Signs Initial Vital Signs: Vital Signs Temperature 98.6 F 01/03/23 18:38 Pulse Rate 112 H 01/03/23 18:38 Respiratory Rate 26 H 01/03/23 18:38 Blood Pressure 105/79 01/03/23 18:38 Pulse Oximetry 96 01/03/23 18:38 Oxygen Delivery Method Room Air 01/03/23 18:38 <Bassam Llamas MD - Last Filed: 01/18/23 12:07> Initial Vital Signs Initial Vital Signs: Vital Signs Temperature 98.6 F 01/03/23 18:38 Pulse Rate 112 H 01/03/23 18:38 Respiratory Rate 26 H 01/03/23 18:38 Blood Pressure 105/79 01/03/23 18:38 Pulse Oximetry 96 01/03/23 18:38 Oxygen Delivery Method Room Air 01/03/23 18:38 <Wendie Harrell DO - Last Filed: 01/06/23 19:43> Initial Vital Signs Initial Vital Signs: Vital Signs Temperature 98.6 F 01/03/23 18:38 Pulse Rate 112 H 01/03/23 18:38 Respiratory Rate 26 H 01/03/23 18:38 Blood Pressure 105/79 01/03/23 18:38 Pulse Oximetry 96 01/03/23 18:38 Oxygen Delivery Method Room Air 01/03/23 18:38 Course <Dinora Dasilva MD - Last Filed: 01/14/23 15:46> Orders Ordered: Discontinued Medications Amino Acids/Electrolytes (Tpn Per Pharmacy) 1 request IV 1800 JOSE MANUEL Stop: 01/07/23 17:59 Dextrose (Dextrose 50 % In Water 25 Gm/50 Ml Syringe) 25 gm IV NOW ONE Stop: 01/06/23 07:33 Last Admin: 01/06/23 07:44 Dose: 25 gm Documented By: CTS Enoxaparin Sodium (Enoxaparin 40 Mg/0.4 Ml Syringe) 40 mg SUBCUT DAILY [facility] Last Admin: 01/06/23 09:05 Dose: Not Given Documented By: Admin: 01/06/23 07:55 Dose: 40 mg Documented By: Admin: 01/05/23 08:52 Dose: 40 mg Documented By: Admin: 01/04/23 09:43 Dose: 40 mg Documented By: CHARLES Sodium Chloride (Normal Saline 0.9%) 1,000 mls @ 1,000 mls/hr IV BOLUS ONE Stop: 01/03/23 19:53 Last Infusion: 01/03/23 21:11 Dose: 0 mls/hr Documented By: Admin: 01/03/23 20:11 Dose: 1,000 mls/hr Documented By: GC Cefepime HCl 2 gm/ Sodium (Chloride) 100 mls @ 200 mls/hr IV NOW ONE Stop: 01/03/23 21:37 Last Infusion: 01/03/23 22:56 Dose: 0 mls/hr Documented By: Admin: 01/03/23 22:22 Dose: 200 mls/hr Documented By: GC Potassium Chloride/Dextrose/Sod Cl (Dextrose 5%-0.45%Ns W/Kcl 20meq) 1,000 mls @ 125 mls/hr IV CONT [facility] Last Admin: 01/06/23 15:31 Dose: 125 mls/hr Documented By: Infusion: 01/06/23 15:31 Dose: 0 mls/hr Documented By: Admin: 01/06/23 07:48 Dose: 125 mls/hr Documented By: Infusion: 01/04/23 15:30 Dose: 0 mls/hr Documented By: Infusion: 01/04/23 10:24 Dose: 125 mls/hr Documented By: Infusion: 01/04/23 09:53 Dose: 0 mls/hr Documented By: Admin: 01/04/23 06:25 Dose: 125 mls/hr Documented By: Infusion: 01/04/23 06:21 Dose: 0 mls/hr Documented By: Admin: 01/03/23 22:21 Dose: 125 mls/hr Documented By: GC Vancomycin HCl/Dextrose (Vancomycin) 1,500 mg in 300 mls @ 200 mls/hr IV NOW JOSE [facility]UEL Last Infusion: 01/04/23 00:35 Dose: 0 mls/hr Documented By: Admin: 01/03/23 23:04 Dose: 200 mls/hr Documented By: GC Meropenem 1 gm/ Sodium (Chloride) 100 mls @ 200 mls/hr IV Q8H [facility] Last Infusion: 01/04/23 02:32 Dose: 0 mls/hr Documented By: Admin: 01/04/23 02:01 Dose: 200 mls/hr Documented By: MAHI Vancomycin HCl (Vancomycin) 1,000 mg in 200 mls @ 167 mls/hr IV Q12H [facility] Meropenem 500 mg/ Sodium (Chloride) 100 mls @ 200 mls/hr IV Q6H [facility] Last Infusion: 01/04/23 10:24 Dose: 0 mls/hr Documented By: Admin: 01/04/23 09:43 Dose: 200 mls/hr Documented By: CHARLES Vancomycin HCl (Vancomycin) 1,000 mg in 200 mls @ 200 mls/hr IV Q6H [facility] Last Admin: 01/05/23 17:30 Dose: Not Given Documented By: Infusion: 01/05/23 08:47 Dose: 0 mls/hr Documented By: Admin: 01/05/23 07:33 Dose: 200 mls/hr Documented By: Infusion: 01/05/23 02:46 Dose: 0 mls/hr Documented By: Admin: 01/05/23 01:41 Dose: 200 mls/hr Documented By: Infusion: 01/04/23 20:55 Dose: 0 mls/hr Documented By: Infusion: 01/04/23 19:45 Dose: 167 mls/hr Documented By: FLBartolome Infusion: 01/04/23 19:28 Dose: 0 mls/hr Documented By: Admin: 01/04/23 19:08 Dose: 167 mls/hr Documented By: Infusion: 01/04/23 15:31 Dose: 0 mls/hr Documented By: Admin: 01/04/23 14:10 Dose: 167 mls/hr Documented By: Infusion: 01/04/23 08:26 Dose: 0 mls/hr Documented By: Admin: 01/04/23 07:11 Dose: 167 mls/hr Documented By: GC Meropenem 1 gm/ Sodium (Chloride) 100 mls @ 200 mls/hr IV Q8H [facility] Last Admin: 01/06/23 16:08 Dose: Not Given Documented By: Infusion: 01/06/23 09:53 Dose: 0 mls/hr Documented By: Admin: 01/06/23 08:57 Dose: 200 mls/hr Documented By: Infusion: 01/06/23 01:20 Dose: 0 mls/hr Documented By: Admin: 01/06/23 00:18 Dose: 200 mls/hr Documented By: Infusion: 01/05/23 18:31 Dose: 0 mls/hr Documented By: JIMBO(2) Admin: 01/05/23 17:52 Dose: 200 mls/hr Documented By: Infusion: 01/05/23 09:28 Dose: 0 mls/hr Documented By: JIMBO(2) Admin: 01/05/23 08:50 Dose: 200 mls/hr Documented By: Infusion: 01/05/23 01:43 Dose: 200 mls/hr Documented By: Admin: 01/05/23 01:10 Dose: 200 mls/hr Documented By: Infusion: 01/04/23 17:25 Dose: 0 mls/hr Documented By: Admin: 01/04/23 16:35 Dose: 200 mls/hr Documented By: CHARLES Sodium Chloride (Normal Saline 0.9%) 1,000 mls @ 100 mls/hr IV CONT [facility] Last Infusion: 01/06/23 07:45 Dose: 0 mls/hr Documented By: Infusion: 01/05/23 17:53 Dose: 0 mls/hr Documented By: Infusion: 01/05/23 13:53 Dose: 100 mls/hr Documented By: JIMBO(2) Infusion: 01/05/23 08:53 Dose: 0 mls/hr Documented By: Infusion: 01/05/23 03:22 Dose: 100 mls/hr Documented By: Admin: 01/04/23 17:52 Dose: 100 mls/hr Documented By: VALERIA Vancomycin HCl (Vancomycin) 1,000 mg in 200 mls @ 200 mls/hr IV Q8H [facility] Last Infusion: 01/06/23 11:06 Dose: 0 mls/hr Documented By: Admin: 01/06/23 09:54 Dose: 200 mls/hr Documented By: Infusion: 01/06/23 01:20 Dose: 0 mls/hr Documented By: JOSÉ MIGUEL Admin: 01/06/23 00:18 Dose: 200 mls/hr Documented By: JOSÉ MIGUEL Infusion: 01/05/23 21:55 Dose: 0 mls/hr Documented By: JOSÉ MIGUEL Admin: 01/05/23 18:40 Dose: 200 mls/hr Documented By: JIMBO(2) Dextrose (D10w) 1,000 mls @ 125 mls/hr IV CONT [facility] Last Admin: 01/06/23 07:44 Dose: Not Given Documented By: ARMANDO Vancomycin HCl (Vancomycin) 1,000 mg in 200 mls @ 200 mls/hr IV Q8H [facility] Fat Emulsion Intravenous (Clinolipid 20%) 50 gm in 250 mls @ 25 mls/hr IV TuThSa@1800 JOSE MANUEL Stop: 01/07/23 03:59 Chromium/Copper/Manganese/Seleni/Zn 1 ml/ Multivitamins 10 ml/ Famotidine 20 mg/Thiamine HCl 100 mg/ Amino Acids/Electrolytes 1,014 mls @ 42.25 mls/hr IV 1800 JOSE MANUEL Stop: 01/07/23 17:59 Ondansetron HCl (Ondansetron 4 Mg Odt) 4 mg SL NOW PRN PRN Reason: Nausea And Vomiting Ondansetron HCl (Ondansetron 4 Mg/2 Ml Inj) 4 mg IV NOW PRN PRN Reason: Nausea And Vomiting Vancomycin HCl (Vancomycin Per Pharmacy) 1 request MISC NOW ONE Stop: 01/03/23 21:37 Last Admin: 01/04/23 07:20 Dose: 1 request Documented By: JIMBO(2) Vancomycin HCl (Vancomycin Per Pharmacy) 1 request MISC NOW ONE Stop: 01/04/23 01:14 Last Admin: 01/04/23 07:21 Dose: 1 request Documented By: JIMBO(2) Vancomycin HCl (Vancomycin Trough) 1 request MISC 1830 ONE Stop: 01/04/23 18:31 Last Admin: 01/04/23 22:18 Dose: 1 request Documented By: HIBartolome Vancomycin HCl (Vancomycin Peak) 1 request MISC 2100 ONE Stop: 01/04/23 21:01 Last Admin: 01/04/23 22:19 Dose: 1 request Documented By: [facility] Vancomycin HCl (Vancomycin Trough) 1 request [facility] 173 ONE Stop: 01/06/23 17:31 Vancomycin HCl (Vancomycin Peak) 1 request [facility] 1999 ONE Stop: 01/06/23 20:01 Vital Signs Vital signs: Vital Signs - 8 hr 01/06/23 14:30 01/06/23 15:00 01/06/23 15:19 Pulse Rate 87 86 Respiratory Rate 23 25 H Blood Pressure 126/90 Pulse Oximetry 99 98 01/06/23 15:19 01/06/23 15:30 Pulse Rate 83 87 Respiratory Rate 27 H 24 Blood Pressure Pulse Oximetry 99 100 <Norman Perrin DO - Last Filed: 01/04/23 18:49> Orders Ordered: Discontinued Medications Amino Acids/Electrolytes (Tpn Per Pharmacy) 1 request IV 1800 JOSE MANUEL Stop: 01/07/23 17:59 Dextrose (Dextrose 50 % In Water 25 Gm/50 Ml Syringe) 25 gm IV NOW ONE Stop: 01/06/23 07:33 Last Admin: 01/06/23 07:44 Dose: 25 gm Documented By: ARMANDO Enoxaparin Sodium (Enoxaparin 40 Mg/0.4 Ml Syringe) 40 mg SUBCUT DAILY [facility] Last Admin: 01/06/23 09:05 Dose: Not Given Documented By: Admin: 01/06/23 07:55 Dose: 40 mg Documented By: Admin: 01/05/23 08:52 Dose: 40 mg Documented By: Admin: 01/04/23 09:43 Dose: 40 mg Documented By: CHARLES Sodium Chloride (Normal Saline 0.9%) 1,000 mls @ 1,000 mls/hr IV BOLUS ONE Stop: 01/03/23 19:53 Last Infusion: 01/03/23 21:11 Dose: 0 mls/hr Documented By: Admin: 01/03/23 20:11 Dose: 1,000 mls/hr Documented By: GC Cefepime HCl 2 gm/ Sodium (Chloride) 100 mls @ 200 mls/hr IV NOW ONE Stop: 01/03/23 21:37 Last Infusion: 01/03/23 22:56 Dose: 0 mls/hr Documented By: Admin: 04/17/23 22:22 Dose: 200 mls/hr Documented By: MAHI Potassium Chloride/Dextrose/Sod Cl (Dextrose 5%-0.45%Ns W/Kcl 20meq) 1,000 mls @ 125 mls/hr IV CONT [facility] Last Admin: 01/06/23 15:31 Dose: 125 mls/hr Documented By: Infusion: 01/06/23 15:31 Dose: 0 mls/hr Documented By: Admin: 01/06/23 07:48 Dose: 125 mls/hr Documented By: Infusion: 01/04/23 15:30 Dose: 0 mls/hr Documented By: Infusion: 01/04/23 10:24 Dose: 125 mls/hr Documented By: Infusion: 01/04/23 09:53 Dose: 0 mls/hr Documented By: Admin: 01/04/23 06:25 Dose: 125 mls/hr Documented By: Infusion: 01/04/23 06:21 Dose: 0 mls/hr Documented By: Admin: 01/03/23 22:21 Dose: 125 mls/hr Documented By: MAHI Vancomycin HCl/Dextrose (Vancomycin) 1,500 mg in 300 mls @ 200 mls/hr IV NOW [facility] Last Infusion: 01/04/23 00:35 Dose: 0 mls/hr Documented By: Admin: 01/03/23 23:04 Dose: 200 mls/hr Documented By: MAHI Meropenem 1 gm/ Sodium (Chloride) 100 mls @ 200 mls/hr IV Q8H [facility] Last Infusion: 01/04/23 02:32 Dose: 0 mls/hr Documented By: Admin: 01/04/23 02:01 Dose: 200 mls/hr Documented By: MAHI Vancomycin HCl (Vancomycin) 1,000 mg in 200 mls @ 167 mls/hr IV Q12H [facility] Meropenem 500 mg/ Sodium (Chloride) 100 mls @ 200 mls/hr IV Q6H [facility] Last Infusion: 01/04/23 10:24 Dose: 0 mls/hr Documented By: Admin: 01/04/23 09:43 Dose: 200 mls/hr Documented By: CHARLES Vancomycin HCl (Vancomycin) 1,000 mg in 200 mls @ 200 mls/hr IV Q6H [facility] Last Admin: 01/05/23 17:30 Dose: Not Given Documented By: Infusion: 01/05/23 08:47 Dose: 0 mls/hr Documented By: Admin: 01/05/23 07:33 Dose: 200 mls/hr Documented By: Infusion: 01/05/23 02:46 Dose: 0 mls/hr Documented By: Admin: 01/05/23 01:41 Dose: 200 mls/hr Documented By: Infusion: 01/04/23 20:55 Dose: 0 mls/hr Documented By: Infusion: 01/04/23 19:45 Dose: 167 mls/hr Documented By: Infusion: 01/04/23 19:28 Dose: 0 mls/hr Documented By: Admin: 01/04/23 19:08 Dose: 167 mls/hr Documented By: Infusion: 01/04/23 15:31 Dose: 0 mls/hr Documented By: Admin: 01/04/23 14:10 Dose: 167 mls/hr Documented By: Infusion: 01/04/23 08:26 Dose: 0 mls/hr Documented By: Admin: 01/04/23 07:11 Dose: 167 mls/hr Documented By: GC Meropenem 1 gm/ Sodium (Chloride) 100 mls @ 200 mls/hr IV Q8H [facility] Last Admin: 01/06/23 16:08 Dose: Not Given Documented By: Infusion: 01/06/23 09:53 Dose: 0 mls/hr Documented By: Admin: 01/06/23 08:57 Dose: 200 mls/hr Documented By: Infusion: 01/06/23 01:20 Dose: 0 mls/hr Documented By: Admin: 01/06/23 00:18 Dose: 200 mls/hr Documented By: Infusion: 01/05/23 18:31 Dose: 0 mls/hr Documented By: JIMBO(2) Admin: 01/05/23 17:52 Dose: 200 mls/hr Documented By: Infusion: 01/05/23 09:28 Dose: 0 mls/hr Documented By: KB(2) Admin: 01/05/23 08:50 Dose: 200 mls/hr Documented By: Infusion: 01/05/23 01:43 Dose: 200 mls/hr Documented By: Admin: 01/05/23 01:10 Dose: 200 mls/hr Documented By: Infusion: 01/04/23 17:25 Dose: 0 mls/hr Documented By: Admin: 01/04/23 16:35 Dose: 200 mls/hr Documented By: CHARLES Sodium Chloride (Normal Saline 0.9%) 1,000 mls @ 100 mls/hr IV CONT JOSE [facility]UEL Last Infusion: 01/06/23 07:45 Dose: 0 mls/hr Documented By: Infusion: 01/05/23 17:53 Dose: 0 mls/hr Documented By: Infusion: 01/05/23 13:53 Dose: 100 mls/hr Documented By: JIMBO(2) Infusion: 01/05/23 08:53 Dose: 0 mls/hr Documented By: Infusion: 01/05/23 03:22 Dose: 100 mls/hr Documented By: Admin: 01/04/23 17:52 Dose: 100 mls/hr Documented By: VALERIA Vancomycin HCl (Vancomycin) 1,000 mg in 200 mls @ 200 mls/hr IV Q8H [facility] Last Infusion: 01/06/23 11:06 Dose: 0 mls/hr Documented By: Admin: 01/06/23 09:54 Dose: 200 mls/hr Documented By: Infusion: 01/06/23 01:20 Dose: 0 mls/hr Documented By: Admin: 01/06/23 00:18 Dose: 200 mls/hr Documented By: Infusion: 01/05/23 21:55 Dose: 0 mls/hr Documented By: Admin: 01/05/23 18:40 Dose: 200 mls/hr Documented By: JIMBO(2) Dextrose (D10w) 1,000 mls @ 125 mls/hr IV CONT [facility]SE [facility]UEL Last Admin: 01/06/23 07:44 Dose: Not Given Documented By: ARMANDO Vancomycin HCl (Vancomycin) 1,000 mg in 200 mls @ 200 mls/hr IV Q8H [facility] Fat Emulsion Intravenous (Clinolipid 20%) 50 gm in 250 mls @ 25 mls/hr IV TuThSa@1800 JOSE MANUEL Stop: 01/07/23 03:59 Chromium/Copper/Manganese/Seleni/Zn 1 ml/ Multivitamins 10 ml/ Famotidine 20 mg/Thiamine HCl 100 mg/ Amino Acids/Electrolytes 1,014 mls @ 42.25 mls/hr IV 1800 JOSE MANUEL Stop: 01/07/23 17:59 Ondansetron HCl (Ondansetron 4 Mg Odt) 4 mg SL NOW PRN PRN Reason: Nausea And Vomiting Ondansetron HCl (Ondansetron 4 Mg/2 Ml Inj) 4 mg IV NOW PRN PRN Reason: Nausea And Vomiting Vancomycin HCl (Vancomycin Per Pharmacy) 1 request MISC NOW ONE Stop: 01/03/23 21:37 Last Admin: 01/04/23 07:20 Dose: 1 request Documented By: JIMBO(2) Vancomycin HCl (Vancomycin Per Pharmacy) 1 request MISC NOW ONE Stop: 01/04/23 01:14 Last Admin: 01/04/23 07:21 Dose: 1 request Documented By: JIMBO(2) Vancomycin HCl (Vancomycin Trough) 1 request MISC 1830 ONE Stop: 01/04/23 18:31 Last Admin: 01/04/23 22:18 Dose: 1 request Documented By: KEVIN Vancomycin HCl (Vancomycin Peak) 1 request MISC 2100 ONE Stop: 01/04/23 21:01 Last Admin: 01/04/23 22:19 Dose: 1 request Documented By: KEVIN Vancomycin HCl (Vancomycin Trough) 1 request MISC 1730 ONE Stop: 01/06/23 17:31 Vancomycin HCl (Vancomycin Peak) 1 request MISC 1999 ONE Stop: 01/06/23 20:01 Vital Signs Vital signs: Vital Signs - 8 hr 01/06/23 14:30 01/06/23 15:00 01/06/23 15:19 Pulse Rate 87 86 Respiratory Rate 23 25 H Blood Pressure 126/90 Pulse Oximetry 99 98 01/06/23 15:19 01/06/23 15:30 Pulse Rate 83 87 Respiratory Rate 27 H 24 Blood Pressure Pulse Oximetry 99 100 <Ladi Connolly, DO - Last Filed: 01/06/23 22:14> Orders Ordered: Discontinued Medications Amino Acids/Electrolytes (Tpn Per Pharmacy) 1 request IV 1800 JOSE MANUEL Stop: 01/07/23 17:59 Dextrose (Dextrose 50 % In Water 25 Gm/50 Ml Syringe) 25 gm IV NOW ONE Stop: 01/06/23 07:33 Last Admin: 01/06/23 07:44 Dose: 25 gm Documented By: ARMANDO Enoxaparin Sodium (Enoxaparin 40 Mg/0.4 Ml Syringe) 40 mg SUBCUT DAILY [facility] Last Admin: 01/06/23 09:05 Dose: Not Given Documented By: Admin: 01/06/23 07:55 Dose: 40 mg Documented By: Admin: 01/05/23 08:52 Dose: 40 mg Documented By: Admin: 01/04/23 09:43 Dose: 40 mg Documented By: CHARLES Sodium Chloride (Normal Saline 0.9%) 1,000 mls @ 1,000 mls/hr IV BOLUS ONE Stop: 01/03/23 19:53 Last Infusion: 01/03/23 21:11 Dose: 0 mls/hr Documented By: Admin: 01/03/23 20:11 Dose: 1,000 mls/hr Documented By: GC Cefepime HCl 2 gm/ Sodium (Chloride) 100 mls @ 200 mls/hr IV NOW ONE Stop: 01/03/23 21:37 Last Infusion: 01/03/23 22:56 Dose: 0 mls/hr Documented By: Admin: 01/03/23 22:22 Dose: 200 mls/hr Documented By: GC Potassium Chloride/Dextrose/Sod Cl (Dextrose 5%-0.45%Ns W/Kcl 20meq) 1,000 mls @ 125 mls/hr IV CONT [facility] Last Admin: 01/06/23 15:31 Dose: 125 mls/hr Documented By: Infusion: 01/06/23 15:31 Dose: 0 mls/hr Documented By: Admin: 01/06/23 07:48 Dose: 125 mls/hr Documented By: Infusion: 01/04/23 15:30 Dose: 0 mls/hr Documented By: Infusion: 01/04/23 10:24 Dose: 125 mls/hr Documented By: Infusion: 01/04/23 09:53 Dose: 0 mls/hr Documented By: Admin: 01/04/23 06:25 Dose: 125 mls/hr Documented By: Infusion: 01/04/23 06:21 Dose: 0 mls/hr Documented By: Admin: 01/03/23 22:21 Dose: 125 mls/hr Documented By: GC Vancomycin HCl/Dextrose (Vancomycin) 1,500 mg in 300 mls @ 200 mls/hr IV NOW [facility] Last Infusion: 01/04/23 00:35 Dose: 0 mls/hr Documented By: Admin: 01/03/23 23:04 Dose: 200 mls/hr Documented By: MAHI Meropenem 1 gm/ Sodium (Chloride) 100 mls @ 200 mls/hr IV Q8H [facility] Last Infusion: 01/04/23 02:32 Dose: 0 mls/hr Documented By: Admin: 01/04/23 02:01 Dose: 200 mls/hr Documented By: MAHI Vancomycin HCl (Vancomycin) 1,000 mg in 200 mls @ 167 mls/hr IV Q12H [facility] Meropenem 500 mg/ Sodium (Chloride) 100 mls @ 200 mls/hr IV Q6H [facility] Last Infusion: 01/04/23 10:24 Dose: 0 mls/hr Documented By: Admin: 01/04/23 09:43 Dose: 200 mls/hr Documented By: CHARLES Vancomycin HCl (Vancomycin) 1,000 mg in 200 mls @ 200 mls/hr IV Q6H [facility] Last Admin: 01/05/23 17:30 Dose: Not Given Documented By: Infusion: 01/05/23 08:47 Dose: 0 mls/hr Documented By: Admin: 01/05/23 07:33 Dose: 200 mls/hr Documented By: Infusion: 01/05/23 02:46 Dose: 0 mls/hr Documented By: Admin: 01/05/23 01:41 Dose: 200 mls/hr Documented By: Infusion: 01/04/23 20:55 Dose: 0 mls/hr Documented By: Infusion: 01/04/23 19:45 Dose: 167 mls/hr Documented By: FLBartolome Infusion: 01/04/23 19:28 Dose: 0 mls/hr Documented By: Admin: 01/04/23 19:08 Dose: 167 mls/hr Documented By: Infusion: 01/04/23 15:31 Dose: 0 mls/hr Documented By: Admin: 01/04/23 14:10 Dose: 167 mls/hr Documented By: Infusion: 01/04/23 08:26 Dose: 0 mls/hr Documented By: Admin: 01/04/23 07:11 Dose: 167 mls/hr Documented By: MAHI Meropenem 1 gm/ Sodium (Chloride) 100 mls @ 200 mls/hr IV Q8H JOSE MANUEL Last Admin: 01/06/23 16:08 Dose: Not Given Documented By: Infusion: 01/06/23 09:53 Dose: 0 mls/hr Documented By: Admin: 01/06/23 08:57 Dose: 200 mls/hr Documented By: Infusion: 01/06/23 01:20 Dose: 0 mls/hr Documented By: Admin: 01/06/23 00:18 Dose: 200 mls/hr Documented By: Infusion: 01/05/23 18:31 Dose: 0 mls/hr Documented By: [email or web address]([email or web address]) Admin: 01/05/23 17:52 Dose: 200 mls/hr Documented By: Infusion: 01/05/23 09:28 Dose: 0 mls/hr Documented By: KB(2) Admin: 01/05/23 08:50 Dose: 200 mls/hr Documented By: Infusion: 01/05/23 01:43 Dose: 200 mls/hr Documented By: Admin: 01/05/23 01:10 Dose: 200 mls/hr Documented By: Infusion: 01/04/23 17:25 Dose: 0 mls/hr Documented By: Admin: 01/04/23 16:35 Dose: 200 mls/hr Documented By: CHARLES Sodium Chloride (Normal Saline 0.9%) 1,000 mls @ 100 mls/hr IV CONT JOSE MANUEL Last Infusion: 01/06/23 07:45 Dose: 0 mls/hr Documented By: Infusion: 01/05/23 17:53 Dose: 0 mls/hr Documented By: Infusion: 01/05/23 13:53 Dose: 100 mls/hr Documented By: JIMBO(2) Infusion: 01/05/23 08:53 Dose: 0 mls/hr Documented By: Infusion: 01/05/23 03:22 Dose: 100 mls/hr Documented By: Admin: 01/04/23 17:52 Dose: 100 mls/hr Documented By: VALERIA Vancomycin HCl (Vancomycin) 1,000 mg in 200 mls @ 200 mls/hr IV Q8H JOSE MANUEL Last Infusion: 01/06/23 11:06 Dose: 0 mls/hr Documented By: Admin: 01/06/23 09:54 Dose: 200 mls/hr Documented By: Infusion: 01/06/23 01:20 Dose: 0 mls/hr Documented By: JOSÉ MIGUEL Admin: 01/06/23 00:18 Dose: 200 mls/hr Documented By: JOSÉ MIGUEL Infusion: 01/05/23 21:55 Dose: 0 mls/hr Documented By: JOSÉ MIGUEL Admin: 01/05/23 18:40 Dose: 200 mls/hr Documented By: JIMBO(2) Dextrose (D10w) 1,000 mls @ 125 mls/hr IV CONT JOSE MANUEL Last Admin: 01/06/23 07:44 Dose: Not Given Documented By: ARMANDO Vancomycin HCl (Vancomycin) 1,000 mg in 200 mls @ 200 mls/hr IV Q8H JOSE MANUEL Fat Emulsion Intravenous (Clinolipid 20%) 50 gm in 250 mls @ 25 mls/hr IV TuThSa@1800 JOSE MANUEL Stop: 01/07/23 03:59 Chromium/Copper/Manganese/Seleni/Zn 1 ml/ Multivitamins 10 ml/ Famotidine 20 mg/Thiamine HCl 100 mg/ Amino Acids/Electrolytes 1,014 mls @ 42.25 mls/hr IV 1800 [facility] Stop: 01/07/23 17:59 Ondansetron HCl (Ondansetron 4 Mg Odt) 4 mg SL NOW PRN PRN Reason: Nausea And Vomiting Ondansetron HCl (Ondansetron 4 Mg/2 Ml Inj) 4 mg IV NOW PRN PRN Reason: Nausea And Vomiting Vancomycin HCl (Vancomycin Per Pharmacy) 1 request MISC NOW ONE Stop: 01/03/23 21:37 Last Admin: 01/04/23 07:20 Dose: 1 request Documented By: JIMBO(2) Vancomycin HCl (Vancomycin Per Pharmacy) 1 request MISC NOW ONE Stop: 01/04/23 01:14 Last Admin: 01/04/23 07:21 Dose: 1 request Documented By: JIMBO(2) Vancomycin HCl (Vancomycin Trough) 1 request MISC 1830 ONE Stop: 01/04/23 18:31 Last Admin: 01/04/23 22:18 Dose: 1 request Documented By: KEVIN Vancomycin HCl (Vancomycin Peak) 1 request MISC 2100 ONE Stop: 01/04/23 21:01 Last Admin: 01/04/23 22:19 Dose: 1 request Documented By: KEVIN Vancomycin HCl (Vancomycin Trough) 1 request [facility] [place] 173 ONE Stop: 01/06/23 17:31 Vancomycin HCl (Vancomycin Peak) 1 request [facility] [place] 1999 ONE Stop: 01/06/23 20:01 Vital Signs Vital signs: Vital Signs - 8 hr 01/06/23 14:30 01/06/23 15:00 01/06/23 15:19 Pulse Rate 87 86 Respiratory Rate 23 25 H Blood Pressure 126/90 Pulse Oximetry 99 98 01/06/23 15:19 01/06/23 15:30 Pulse Rate 83 87 Respiratory Rate 27 H 24 Blood Pressure Pulse Oximetry 99 100 <Bassam Llamas MD - Last Filed: 01/18/23 12:07> Course Course Narrative: Muriel: January 05, 2023 at 9:30 a.m.. I spoke with Dr Woodson, service observer chief on-call consult, states patient may not need inpatient bronchoscopy. It can be done on outpatient. Would not be out of reason to admit he patient here 10:[address] Gupta, hospitalist here, at this time he will follow as consult. But patient needs to be transferred for bronchoscopy. Muriel: Sign out Dr Connolly, no new issues during course of stay. Unable to transfer patient. Unable to keep me should here. I did speak with Dr. Sandy, their group does not do bronchoscopy. I reviewed with Dr. Gupta as well. Will not admit, we have called PICC service team to possibly come here tonight for TPN, o/w tomorrow have done here Orders Ordered: Discontinued Medications Amino Acids/Electrolytes (Tpn Per Pharmacy) 1 request IV 1800 [facility] Stop: 01/07/23 17:59 Dextrose (Dextrose 50 % In Water 25 Gm/50 Ml Syringe) 25 gm IV NOW ONE Stop: 01/06/23 07:33 Last Admin: 01/06/23 07:44 Dose: 25 gm Documented By: CTS Enoxaparin Sodium (Enoxaparin 40 Mg/0.4 Ml Syringe) 40 mg SUBCUT DAILY [facility] Last Admin: 01/06/23 09:05 Dose: Not Given Documented By: Admin: 01/06/23 07:55 Dose: 40 mg Documented By: Admin: 01/05/23 08:52 Dose: 40 mg Documented By: Admin: 01/04/23 09:43 Dose: 40 mg Documented By: CHARLES Sodium Chloride (Normal Saline 0.9%) 1,000 mls @ 1,000 mls/hr IV BOLUS ONE Stop: 01/03/23 19:53 Last Infusion: 01/03/23 21:11 Dose: 0 mls/hr Documented By: Admin: 01/03/23 20:11 Dose: 1,000 mls/hr Documented By: GC Cefepime HCl 2 gm/ Sodium (Chloride) 100 mls @ 200 mls/hr IV NOW ONE Stop: 01/03/23 21:37 Last Infusion: 01/03/23 22:56 Dose: 0 mls/hr Documented By: Admin: 01/03/23 22:22 Dose: 200 mls/hr Documented By: GC Potassium Chloride/Dextrose/Sod Cl (Dextrose 5%-0.45%Ns W/Kcl 20meq) 1,000 mls @ 125 mls/hr IV CONT [facility] Last Admin: 01/06/23 15:31 Dose: 125 mls/hr Documented By: Infusion: 01/06/23 15:31 Dose: 0 mls/hr Documented By: Admin: 01/06/23 07:48 Dose: 125 mls/hr Documented By: Infusion: 01/04/23 15:30 Dose: 0 mls/hr Documented By: Infusion: 01/04/23 10:24 Dose: 125 mls/hr Documented By: Infusion: 01/04/23 09:53 Dose: 0 mls/hr Documented By: Admin: 01/04/23 06:25 Dose: 125 mls/hr Documented By: Infusion: 01/04/23 06:21 Dose: 0 mls/hr Documented By: Admin: 01/03/23 22:21 Dose: 125 mls/hr Documented By: GC Vancomycin HCl/Dextrose (Vancomycin) 1,500 mg in 300 mls @ 200 mls/hr IV NOW [facility] Last Infusion: 01/04/23 00:35 Dose: 0 mls/hr Documented By: Admin: 01/03/23 23:04 Dose: 200 mls/hr Documented By: GC Meropenem 1 gm/ Sodium (Chloride) 100 mls @ 200 mls/hr IV Q8H [facility] Last Infusion: 01/04/23 02:32 Dose: 0 mls/hr Documented By: Admin: 01/04/23 02:01 Dose: 200 mls/hr Documented By: MAHI Vancomycin HCl (Vancomycin) 1,000 mg in 200 mls @ 167 mls/hr IV Q12H [facility] Meropenem 500 mg/ Sodium (Chloride) 100 mls @ 200 mls/hr IV Q6H [facility] Last Infusion: 01/04/23 10:24 Dose: 0 mls/hr Documented By: Admin: 01/04/23 09:43 Dose: 200 mls/hr Documented By: CHARLES Vancomycin HCl (Vancomycin) 1,000 mg in 200 mls @ 200 mls/hr IV Q6H [facility] Last Admin: 01/05/23 17:30 Dose: Not Given Documented By: Infusion: 01/05/23 08:47 Dose: 0 mls/hr Documented By: Admin: 01/05/23 07:33 Dose: 200 mls/hr Documented By: Infusion: 01/05/23 02:46 Dose: 0 mls/hr Documented By: Admin: 01/05/23 01:41 Dose: 200 mls/hr Documented By: Infusion: 01/04/23 20:55 Dose: 0 mls/hr Documented By: Infusion: 01/04/23 19:45 Dose: 167 mls/hr Documented By: FLBartolome Infusion: 01/04/23 19:28 Dose: 0 mls/hr Documented By: Admin: 01/04/23 19:08 Dose: 167 mls/hr Documented By: Infusion: 01/04/23 15:31 Dose: 0 mls/hr Documented By: Admin: 01/04/23 14:10 Dose: 167 mls/hr Documented By: Infusion: 01/04/23 08:26 Dose: 0 mls/hr Documented By: Admin: 01/04/23 07:11 Dose: 167 mls/hr Documented By: MAHI Meropenem 1 gm/ Sodium (Chloride) 100 mls @ 200 mls/hr IV Q8H [facility] Last Admin: 01/06/23 16:08 Dose: Not Given Documented By: Infusion: 01/06/23 09:53 Dose: 0 mls/hr Documented By: Admin: 01/06/23 08:57 Dose: 200 mls/hr Documented By: Infusion: 01/06/23 01:20 Dose: 0 mls/hr Documented By: Admin: 01/06/23 00:18 Dose: 200 mls/hr Documented By: Infusion: 01/05/23 18:31 Dose: 0 mls/hr Documented By: JIMBO(2) Admin: 01/05/23 17:52 Dose: 200 mls/hr Documented By: Infusion: 01/05/23 09:28 Dose: 0 mls/hr Documented By: JIMBO(2) Admin: 01/05/23 08:50 Dose: 200 mls/hr Documented By: Infusion: 01/05/23 01:43 Dose: 200 mls/hr Documented By: Admin: 01/05/23 01:10 Dose: 200 mls/hr Documented By: Infusion: 01/04/23 17:25 Dose: 0 mls/hr Documented By: Admin: 01/04/23 16:35 Dose: 200 mls/hr Documented By: CHARLES Sodium Chloride (Normal Saline 0.9%) 1,000 mls @ 100 mls/hr IV CONT [facility] Last Infusion: 01/06/23 07:45 Dose: 0 mls/hr Documented By: Infusion: 01/05/23 17:53 Dose: 0 mls/hr Documented By: Infusion: 01/05/23 13:53 Dose: 100 mls/hr Documented By: JIMBO(2) Infusion: 01/05/23 08:53 Dose: 0 mls/hr Documented By: Infusion: 01/05/23 03:22 Dose: 100 mls/hr Documented By: Admin: 01/04/23 17:52 Dose: 100 mls/hr Documented By: VALERIA Vancomycin HCl (Vancomycin) 1,000 mg in 200 mls @ 200 mls/hr IV Q8H [facility] Last Infusion: 01/06/23 11:06 Dose: 0 mls/hr Documented By: Admin: 01/06/23 09:54 Dose: 200 mls/hr Documented By: Infusion: 01/06/23 01:20 Dose: 0 mls/hr Documented By: Admin: 01/06/23 00:18 Dose: 200 mls/hr Documented By: Infusion: 01/05/23 21:55 Dose: 0 mls/hr Documented By: JOSÉ MIGUEL Admin: 01/05/23 18:40 Dose: 200 mls/hr Documented By: JIMBO(2) Dextrose (D10w) 1,000 mls @ 125 mls/hr IV CONT [facility] Last Admin: 01/06/23 07:44 Dose: Not Given Documented By: CTS Vancomycin HCl (Vancomycin) 1,000 mg in 200 mls @ 200 mls/hr IV Q8H [facility] Fat Emulsion Intravenous (Clinolipid 20%) 50 gm in 250 mls @ 25 mls/hr IV TuThSa@1800 [facility] Stop: 01/07/23 03:59 Chromium/Copper/Manganese/Seleni/Zn 1 ml/ Multivitamins 10 ml/ Famotidine 20 mg/Thiamine HCl 100 mg/ Amino Acids/Electrolytes 1,014 mls @ 42.25 mls/hr IV 1800 [facility] Stop: 01/07/23 17:59 Ondansetron HCl (Ondansetron 4 Mg Odt) 4 mg SL NOW PRN PRN Reason: Nausea And Vomiting Ondansetron HCl (Ondansetron 4 Mg/2 Ml Inj) 4 mg IV NOW PRN PRN Reason: Nausea And Vomiting Vancomycin HCl (Vancomycin Per Pharmacy) 1 request MISC NOW ONE Stop: 01/03/23 21:37 Last Admin: 01/04/23 07:20 Dose: 1 request Documented By: JIMBO(2) Vancomycin HCl (Vancomycin Per Pharmacy) 1 request MISC NOW ONE Stop: 01/04/23 01:14 Last Admin: 01/04/23 07:21 Dose: 1 request Documented By: JIMBO(2) Vancomycin HCl (Vancomycin Trough) 1 request MISC 1830 ONE Stop: 01/04/23 18:31 Last Admin: 01/04/23 22:18 Dose: 1 request Documented By: KEVIN Vancomycin HCl (Vancomycin Peak) 1 request MISC 2099 ONE Stop: 01/04/23 21:01 Last Admin: 01/04/23 22:19 Dose: 1 request Documented By: KEVIN Vancomycin HCl (Vancomycin Trough) 1 request MISC 173 ONE Stop: 01/06/23 17:31 Vancomycin HCl (Vancomycin Peak) 1 request MISC 1999 ONE Stop: 01/06/23 20:01 Reevaluation(s) Reevaluation #1: Muriel: January 05, 2023 I spoke with patient, at this time I was not able to get him transferred or admitted here. Still waiting for bed assignment for another location. Patient in no distress. Is answering appropriately. Has bilateral diminished lung sounds at the bases. Not toxic. Time: 10:12 Vital Signs Vital signs: Vital Signs - 8 hr 01/06/23 14:30 01/06/23 15:00 01/06/23 15:19 Pulse Rate 87 86 Respiratory Rate 23 25 H Blood Pressure 126/90 Pulse Oximetry 99 98 01/06/23 15:19 01/06/23 15:30 Pulse Rate 83 87 Respiratory Rate 27 H 24 Blood Pressure Pulse Oximetry 99 100 <Wendie Harrell, - Last Filed: 01/06/23 19:43> Orders Ordered: Discontinued Medications Amino Acids/Electrolytes (Tpn Per Pharmacy) 1 request IV 1800 [facility] Stop: 01/07/23 17:59 Dextrose (Dextrose 50 % In Water 25 Gm/50 Ml Syringe) 25 gm IV NOW ONE Stop: 01/06/23 07:33 Last Admin: 01/06/23 07:44 Dose: 25 gm Documented By: ARMANDO Enoxaparin Sodium (Enoxaparin 40 Mg/0.4 Ml Syringe) 40 mg SUBCUT DAILY [facility] Last Admin: 01/06/23 09:05 Dose: Not Given Documented By: Admin: 01/06/23 07:55 Dose: 40 mg Documented By: Admin: 01/05/23 08:52 Dose: 40 mg Documented By: Admin: 01/04/23 09:43 Dose: 40 mg Documented By: CHARLES Sodium Chloride (Normal Saline 0.9%) 1,000 mls @ 1,000 mls/hr IV BOLUS ONE Stop: 01/03/23 19:53 Last Infusion: 01/03/23 21:11 Dose: 0 mls/hr Documented By: Admin: 01/03/23 20:11 Dose: 1,000 mls/hr Documented By: GC Cefepime HCl 2 gm/ Sodium (Chloride) 100 mls @ 200 mls/hr IV NOW ONE Stop: 01/03/23 21:37 Last Infusion: 01/03/23 22:56 Dose: 0 mls/hr Documented By: Admin: 01/03/23 22:22 Dose: 200 mls/hr Documented By: GC Potassium Chloride/Dextrose/Sod Cl (Dextrose 5%-0.45%Ns W/Kcl 20meq) 1,000 mls @ 125 mls/hr IV CONT [facility] Last Admin: 01/06/23 15:31 Dose: 125 mls/hr Documented By: Infusion: 01/06/23 15:31 Dose: 0 mls/hr Documented By: Admin: 01/06/23 07:48 Dose: 125 mls/hr Documented By: Infusion: 01/04/23 15:30 Dose: 0 mls/hr Documented By: Infusion: 01/04/23 10:24 Dose: 125 mls/hr Documented By: Infusion: 01/04/23 09:53 Dose: 0 mls/hr Documented By: Admin: 01/04/23 06:25 Dose: 125 mls/hr Documented By: Infusion: 01/04/23 06:21 Dose: 0 mls/hr Documented By: Admin: 01/03/23 22:21 Dose: 125 mls/hr Documented By: MAHI Vancomycin HCl/Dextrose (Vancomycin) 1,500 mg in 300 mls @ 200 mls/hr IV NOW [facility] Last Infusion: 01/04/23 00:35 Dose: 0 mls/hr Documented By: Admin: 01/03/23 23:04 Dose: 200 mls/hr Documented By: MAHI Meropenem 1 gm/ Sodium (Chloride) 100 mls @ 200 mls/hr IV Q8H [facility] Last Infusion: 01/04/23 02:32 Dose: 0 mls/hr Documented By: Admin: 01/04/23 02:01 Dose: 200 mls/hr Documented By: GC Vancomycin HCl (Vancomycin) 1,000 mg in 200 mls @ 167 mls/hr IV Q12H [facility] Meropenem 500 mg/ Sodium (Chloride) 100 mls @ 200 mls/hr IV Q6H [facility] Last Infusion: 01/04/23 10:24 Dose: 0 mls/hr Documented By: Admin: 01/04/23 09:43 Dose: 200 mls/hr Documented By: CHARLES Vancomycin HCl (Vancomycin) 1,000 mg in 200 mls @ 200 mls/hr IV Q6H [facility] Last Admin: 01/05/23 17:30 Dose: Not Given Documented By: Infusion: 01/05/23 08:47 Dose: 0 mls/hr Documented By: Admin: 01/05/23 07:33 Dose: 200 mls/hr Documented By: Infusion: 01/05/23 02:46 Dose: 0 mls/hr Documented By: Admin: 01/05/23 01:41 Dose: 200 mls/hr Documented By: Infusion: 01/04/23 20:55 Dose: 0 mls/hr Documented By: Infusion: 01/04/23 19:45 Dose: 167 mls/hr Documented By: Infusion: 01/04/23 19:28 Dose: 0 mls/hr Documented By: Admin: 01/04/23 19:08 Dose: 167 mls/hr Documented By: Infusion: 01/04/23 15:31 Dose: 0 mls/hr Documented By: Admin: 01/04/23 14:10 Dose: 167 mls/hr Documented By: Infusion: 01/04/23 08:26 Dose: 0 mls/hr Documented By: Admin: 01/04/23 07:11 Dose: 167 mls/hr Documented By: GC Meropenem 1 gm/ Sodium (Chloride) 100 mls @ 200 mls/hr IV Q8H [facility] Last Admin: 01/06/23 16:08 Dose: Not Given Documented By: Infusion: 01/06/23 09:53 Dose: 0 mls/hr Documented By: Admin: 01/06/23 08:57 Dose: 200 mls/hr Documented By: Infusion: 01/06/23 01:20 Dose: 0 mls/hr Documented By: Admin: 01/06/23 00:18 Dose: 200 mls/hr Documented By: Infusion: 01/05/23 18:31 Dose: 0 mls/hr Documented By: KB(2) Admin: 01/05/23 17:52 Dose: 200 mls/hr Documented By: Infusion: 01/05/23 09:28 Dose: 0 mls/hr Documented By: KB(2) Admin: 01/05/23 08:50 Dose: 200 mls/hr Documented By: Infusion: 01/05/23 01:43 Dose: 200 mls/hr Documented By: Admin: 01/05/23 01:10 Dose: 200 mls/hr Documented By: Infusion: 01/04/23 17:25 Dose: 0 mls/hr Documented By: Admin: 01/04/23 16:35 Dose: 200 mls/hr Documented By: CHARLES Sodium Chloride (Normal Saline 0.9%) 1,000 mls @ 100 mls/hr IV CONT [facility] Last Infusion: 01/06/23 07:45 Dose: 0 mls/hr Documented By: Infusion: 01/05/23 17:53 Dose: 0 mls/hr Documented By: Infusion: 01/05/23 13:53 Dose: 100 mls/hr Documented By: JIMBO(2) Infusion: 01/05/23 08:53 Dose: 0 mls/hr Documented By: Infusion: 01/05/23 03:22 Dose: 100 mls/hr Documented By: Admin: 01/04/23 17:52 Dose: 100 mls/hr Documented By: VALERIA Vancomycin HCl (Vancomycin) 1,000 mg in 200 mls @ 200 mls/hr IV Q8H [facility] Last Infusion: 01/06/23 11:06 Dose: 0 mls/hr Documented By: Admin: 01/06/23 09:54 Dose: 200 mls/hr Documented By: Infusion: 01/06/23 01:20 Dose: 0 mls/hr Documented By: Admin: 01/06/23 00:18 Dose: 200 mls/hr Documented By: Infusion: 01/05/23 21:55 Dose: 0 mls/hr Documented By: Admin: 01/05/23 18:40 Dose: 200 mls/hr Documented By: JIMBO(2) Dextrose (D10w) 1,000 mls @ 125 mls/hr IV CONT [facility]UEL Last Admin: 01/06/23 07:44 Dose: Not Given Documented By: CTS Vancomycin HCl (Vancomycin) 1,000 mg in 200 mls @ 200 mls/hr IV Q8H [facility] Fat Emulsion Intravenous (Clinolipid 20%) 50 gm in 250 mls @ 25 mls/hr IV TuThSa@1800 [facility] Stop: 01/07/23 03:59 Chromium/Copper/Manganese/Seleni/Zn 1 ml/ Multivitamins 10 ml/ Famotidine 20 mg/Thiamine HCl 100 mg/ Amino Acids/Electrolytes 1,014 mls @ 42.25 mls/hr IV 1800 [facility] Stop: 01/07/23 17:59 Ondansetron HCl (Ondansetron 4 Mg Odt) 4 mg SL NOW PRN PRN Reason: Nausea And Vomiting Ondansetron HCl (Ondansetron 4 Mg/2 Ml Inj) 4 mg IV NOW PRN PRN Reason: Nausea And Vomiting Vancomycin HCl (Vancomycin Per Pharmacy) 1 request MISC NOW ONE Stop: 01/03/23 21:37 Last Admin: 01/04/23 07:20 Dose: 1 request Documented By: JIMBO(2) Vancomycin HCl (Vancomycin Per Pharmacy) 1 request MISC NOW ONE Stop: 01/04/23 01:14 Last Admin: 01/04/23 07:21 Dose: 1 request Documented By: JIMBO(2) Vancomycin HCl (Vancomycin Trough) 1 request MISC 1830 ONE Stop: 01/04/23 18:31 Last Admin: 01/04/23 22:18 Dose: 1 request Documented By: [facility] Vancomycin HCl (Vancomycin Peak) 1 request MISC 2100 ONE Stop: 01/04/23 21:01 Last Admin: 01/04/23 22:19 Dose: 1 request Documented By: HIBartolome Vancomycin HCl (Vancomycin Trough) 1 request MISC 1730 ONE Stop: 01/06/23 17:31 Vancomycin HCl (Vancomycin Peak) 1 request MISC 1999 ONE Stop: 01/06/23 20:01 Vital Signs Vital signs: Vital Signs - 8 hr 01/06/23 14:30 01/06/23 15:00 01/06/23 15:19 Pulse Rate 87 86 Respiratory Rate 23 25 H Blood Pressure 126/90 Pulse Oximetry 99 98 01/06/23 15:19 01/06/23 15:30 Pulse Rate 83 87 Respiratory Rate 27 H 24 Blood Pressure Pulse Oximetry 99 100 Medical Decision Making <Dinora Dasilva MD - Last Filed: 01/14/23 15:46> Lab Data 01/06/23 07:50 01/06/23 07:50 Labs: Lab Results 01/03/23 01/03/23 01/03/23 Range/Units 20:00 20:00 20:00 WBC 18.5 H (4.5-11.0) X10^3/uL RBC 5.18 (4.5-5.9) X10^6/uL Hgb 13.0 L (13.5-17.5) g/dL Hct 39.9 L (41-53) % MCV 77.1 L (80-100) fL MCH 25.0 L (26-34) PG MCHC 32.5 (30-36) % RDW 14.5 (11.6-14.8) % Plt Count 594 H (150-400) X10^3/uL Neut % (Auto) 85.9 H (50-75) % Lymph % (Auto) 7.2 L (25-40) % Miller % (Auto) 5.9 (3-14) % Eos % (Auto) 0.6 L (2-4) % Baso % (Auto) 0.4 (0-2) % Neut # (Auto) 92025 H (6017-1382) /uL Lymph # (Auto) 1300 (9920-3625) /uL Miller # (Auto) 1100 H (0-900) /uL Eos # (Auto) 100 (0-450) /uL Baso # (Auto) 100 (0-100) /uL PT 17.6 H (10.1-12.7) SECONDS INR 1.5 H (0.9-1.3) APTT 46 H (26-36) SECONDS D-Dimer (<500) ng/ml Sodium 134 L (137-145) mmol/L Potassium 4.8 (3.4-5.1) mmol/L Chloride 97 L (98-107) mmol/L Carbon Dioxide 22 (22-32) mmol/L BUN 8 L (9-20) mg/dL Creatinine 0.41 L (0.66-1.25) mg/dL Estimated GFR > 60 (>60) mL/min BUN/Creatinine Ratio 19.5 (6-22) Glucose 60 L (70-100) mg/dL Lactate (0.7-2.1) mmol/L Calcium 9.4 (8.4-10.2) mg/dL Phosphorus (2.5-4.5) mg/dL Magnesium (1.6-2.3) mg/dL Total Bilirubin 0.8 (0.2-1.3) mg/dL AST 17 (17-59) IU/L ALT 11 (<50) IU/L Alkaline Phosphatase 136 H (38-126) U/L Total Protein 9.0 H (6.3-8.2) g/dL Albumin 4.1 (3.5-5.0) g/dL Globulin 4.9 H (1.7-4.1) g/dL Albumin/Globulin Ratio 0.8 L (1.0-2.8) Prealbumin (17.6-36.0) mg/dL Triglycerides (35-150) mg/dL Lipase 34 (23-300) U/L Procalcitonin 0.12 (<0.5) ng/mL Nasal Screen MRSA (PCR) (Not Detect) Stl C. cayetanensis PCR (Not Detect) Stool Rotavirus (PCR) (Not Detect) Stool Adenovirus (PCR) (Not Detect) Stool Astrovirus (PCR) (Not Detect) Stool Cryptosporidium PCR (Not Detect) Stl E.coli Shiga Tox PCR (Not Detect) St Sh/Enteroin Ecoli PCR (Not Detect) Stool E coli O157 PCR Stl Enterotoxigenic E PCR (Not Detect) Stool EPEC (PCR) (Not Detect) Stl E. histolytica PCR (Not Detect) Stool Giardia Lamblia PCR (Not Detect) Stool Sapovirus (PCR) (Not Detect) Stl P. shigelloides PCR (Not Detect) St Y.enterocolitica PCR (Not Detect) Stool Vibrio (PCR) (Not Detect) Stl Vibrio cholerae PCR (Not Detect) Stl Enteroaggr Ecoli PCR (Not Detect) Stl Norovirus GI/GII PCR (Not Detect) Vancomycin Peak (20-40) ug/mL Vancomycin Trough Chlamy pneumoniae PCR (Not Detect) Adenovirus (PCR) (Not Detect) B. pertussis DNA (PCR) (Not Detecte) B.parapertussis DNA PCR (Not Detecte) Campylobacter (PCR) (Not Detect) C. difficile Tox (PCR) (Not Detect) Coronavirus OC43 (PCR) (Not Detect) Coronavirus HKU1 (PCR) (Not Detect) Coronavirus 229E (PCR) (Not Detect) SARS-CoV-2 (PCR) (Not Detecte) Coronavirus NL63 (PCR) (Not Detect) Human Metapneumovir PCR (Not Detect) Influenza Type A (PCR) (Not Detect) Influenza Type B (PCR) (Not Detect) M. pneumoniae (PCR) (Not Detect) Parainfluenza 1 (PCR) (Not Detect) Parainfluenza 2 (PCR) (Not Detect) Parainfluenza 3 (PCR) (Not Detect) Parainfluenza 4 (PCR) (Not Detect) RSV (PCR) (Not Detect) Entero/Rhino (PCR) (Not Detect) Salmonella (PCR) (Not Detect) 01/03/23 01/03/23 01/03/23 Range/Units 20:00 20:00 20:17 WBC (4.5-11.0) X10^3/uL RBC (4.5-5.9) X10^6/uL Hgb (13.5-17.5) g/dL Hct (41-53) % MCV (80-100) fL MCH (26-34) PG MCHC (30-36) % RDW (11.6-14.8) % Plt Count (150-400) X10^3/uL Neut % (Auto) (50-75) % Lymph % (Auto) (25-40) % Miller % (Auto) (3-14) % Eos % (Auto) (2-4) % Baso % (Auto) (0-2) % Neut # (Auto) (3426-8332) /uL Lymph # (Auto) (9906-7223) /uL Miller # (Auto) (0-900) /uL Eos # (Auto) (0-450) /uL Baso # (Auto) (0-100) /uL PT (10.1-12.7) SECONDS INR (0.9-1.3) APTT (26-36) SECONDS D-Dimer 2141 H (<500) ng/ml Sodium (137-145) mmol/L Potassium (3.4-5.1) mmol/L Chloride (98-107) mmol/L Carbon Dioxide (22-32) mmol/L BUN (9-20) mg/dL Creatinine (0.66-1.25) mg/dL Estimated GFR (>60) mL/min BUN/Creatinine Ratio (6-22) Glucose (70-100) mg/dL Lactate 1.5 (0.7-2.1) mmol/L Calcium (8.4-10.2) mg/dL Phosphorus (2.5-4.5) mg/dL Magnesium (1.6-2.3) mg/dL Total Bilirubin (0.2-1.3) mg/dL AST (17-59) IU/L ALT (<50) IU/L Alkaline Phosphatase (38-126) U/L Total Protein (6.3-8.2) g/dL Albumin (3.5-5.0) g/dL Globulin (1.7-4.1) g/dL Albumin/Globulin Ratio (1.0-2.8) Prealbumin (17.6-36.0) mg/dL Triglycerides (35-150) mg/dL Lipase (23-300) U/L Procalcitonin (<0.5) ng/mL Nasal Screen MRSA (PCR) (Not Detect) Stl C. cayetanensis PCR (Not Detect) Stool Rotavirus (PCR) (Not Detect) Stool Adenovirus (PCR) (Not Detect) Stool Astrovirus (PCR) (Not Detect) Stool Cryptosporidium PCR (Not Detect) Stl E.coli Shiga Tox PCR (Not Detect) St Sh/Enteroin Ecoli PCR (Not Detect) Stool E coli O157 PCR Stl Enterotoxigenic E PCR (Not Detect) Stool EPEC (PCR) (Not Detect) Stl E. histolytica PCR (Not Detect) Stool Giardia Lamblia PCR (Not Detect) Stool Sapovirus (PCR) (Not Detect) Stl P. shigelloides PCR (Not Detect) St Y.enterocolitica PCR (Not Detect) Stool Vibrio (PCR) (Not Detect) Stl Vibrio cholerae PCR (Not Detect) Stl Enteroaggr Ecoli PCR (Not Detect) Stl Norovirus GI/GII PCR (Not Detect) Vancomycin Peak (20-40) ug/mL Vancomycin Trough Chlamy pneumoniae PCR Not detected (Not Detect) Adenovirus (PCR) Not detected (Not Detect) B. pertussis DNA (PCR) Not detected (Not Detecte) B.parapertussis DNA PCR Not detected (Not Detecte) Campylobacter (PCR) (Not Detect) C. difficile Tox (PCR) (Not Detect) Coronavirus OC43 (PCR) Not detected (Not Detect) Coronavirus HKU1 (PCR) Not detected (Not Detect) Coronavirus 229E (PCR) Not detected (Not Detect) SARS-CoV-2 (PCR) Not detected (Not Detecte) Coronavirus NL63 (PCR) Not detected (Not Detect) Human Metapneumovir PCR Not detected (Not Detect) Influenza Type A (PCR) Not detected (Not Detect) Influenza Type B (PCR) Not detected (Not Detect) M. pneumoniae (PCR) Not detected (Not Detect) Parainfluenza 1 (PCR) Not detected (Not Detect) Parainfluenza 2 (PCR) Not detected (Not Detect) Parainfluenza 3 (PCR) Not detected (Not Detect) Parainfluenza 4 (PCR) Not detected (Not Detect) RSV (PCR) Not detected (Not Detect) Entero/Rhino (PCR) Not detected (Not Detect) Salmonella (PCR) (Not Detect) 01/04/23 01/04/23 01/04/23 Range/Units 06:33 06:33 19:55 WBC 11.4 H (4.5-11.0) X10^3/uL RBC 4.18 L (4.5-5.9) X10^6/uL Hgb 10.5 L (13.5-17.5) g/dL Hct 32.3 L (41-53) % MCV 77.4 L (80-100) fL MCH 25.2 L (26-34) PG MCHC 32.6 (30-36) % RDW 14.1 (11.6-14.8) % Plt Count 447 H (150-400) X10^3/uL Neut % (Auto) 79.8 H (50-75) % Lymph % (Auto) 10.7 L (25-40) % Miller % (Auto) 6.3 (3-14) % Eos % (Auto) 1.9 L (2-4) % Baso % (Auto) 1.3 (0-2) % Neut # (Auto) 9100 H (3263-6796) /uL Lymph # (Auto) 1200 (6747-6631) /uL Miller # (Auto) 700 (0-900) /uL Eos # (Auto) 200 (0-450) /uL Baso # (Auto) 200 H (0-100) /uL PT (10.1-12.7) SECONDS INR (0.9-1.3) APTT (26-36) SECONDS D-Dimer (<500) ng/ml Sodium 133 L (137-145) mmol/L Potassium 4.0 (3.4-5.1) mmol/L Chloride 101 (98-107) mmol/L Carbon Dioxide 29 (22-32) mmol/L BUN 5 L (9-20) mg/dL Creatinine 0.38 L (0.66-1.25) mg/dL Estimated GFR > 60 (>60) mL/min BUN/Creatinine Ratio 13.2 (6-22) Glucose 90 (70-100) mg/dL Lactate (0.7-2.1) mmol/L Calcium 8.2 L (8.4-10.2) mg/dL Phosphorus (2.5-4.5) mg/dL Magnesium (1.6-2.3) mg/dL Total Bilirubin 0.3 (0.2-1.3) mg/dL AST 14 L (17-59) IU/L ALT 11 (<50) IU/L Alkaline Phosphatase 92 (38-126) U/L Total Protein 7.0 (6.3-8.2) g/dL Albumin 3.1 L (3.5-5.0) g/dL Globulin 3.9 (1.7-4.1) g/dL Albumin/Globulin Ratio 0.8 L (1.0-2.8) Prealbumin (17.6-36.0) mg/dL Triglycerides (35-150) mg/dL Lipase (23-300) U/L Procalcitonin (<0.5) ng/mL Nasal Screen MRSA (PCR) (Not Detect) Stl C. cayetanensis PCR (Not Detect) Stool Rotavirus (PCR) (Not Detect) Stool Adenovirus (PCR) (Not Detect) Stool Astrovirus (PCR) (Not Detect) Stool Cryptosporidium PCR (Not Detect) Stl E.coli Shiga Tox PCR (Not Detect) St Sh/Enteroin Ecoli PCR (Not Detect) Stool E coli O157 PCR Stl Enterotoxigenic E PCR (Not Detect) Stool EPEC (PCR) (Not Detect) Stl E. histolytica PCR (Not Detect) Stool Giardia Lamblia PCR (Not Detect) Stool Sapovirus (PCR) (Not Detect) Stl P. shigelloides PCR (Not Detect) St Y.enterocolitica PCR (Not Detect) Stool Vibrio (PCR) (Not Detect) Stl Vibrio cholerae PCR (Not Detect) Stl Enteroaggr Ecoli PCR (Not Detect) Stl Norovirus GI/GII PCR (Not Detect) Vancomycin Peak (20-40) ug/mL Vancomycin Trough Cancelled Chlamy pneumoniae PCR (Not Detect) Adenovirus (PCR) (Not Detect) B. pertussis DNA (PCR) (Not Detecte) B.parapertussis DNA PCR (Not Detecte) Campylobacter (PCR) (Not Detect) C. difficile Tox (PCR) (Not Detect) Coronavirus OC43 (PCR) (Not Detect) Coronavirus HKU1 (PCR) (Not Detect) Coronavirus 229E (PCR) (Not Detect) SARS-CoV-2 (PCR) (Not Detecte) Coronavirus NL63 (PCR) (Not Detect) Human Metapneumovir PCR (Not Detect) Influenza Type A (PCR) (Not Detect) Influenza Type B (PCR) (Not Detect) M. pneumoniae (PCR) (Not Detect) Parainfluenza 1 (PCR) (Not Detect) Parainfluenza 2 (PCR) (Not Detect) Parainfluenza 3 (PCR) (Not Detect) Parainfluenza 4 (PCR) (Not Detect) RSV (PCR) (Not Detect) Entero/Rhino (PCR) (Not Detect) Salmonella (PCR) (Not Detect) 01/04/23 01/05/23 01/05/23 Range/Units 22:03 06:40 06:40 WBC 10.5 (4.5-11.0) X10^3/uL RBC 4.65 (4.5-5.9) X10^6/uL Hgb 11.7 L (13.5-17.5) g/dL Hct 36.1 L (41-53) % MCV 77.7 L (80-100) fL MCH 25.1 L (26-34) PG MCHC 32.3 (30-36) % RDW 14.7 (11.6-14.8) % Plt Count 430 H (150-400) X10^3/uL Neut % (Auto) 78.4 H (50-75) % Lymph % (Auto) 10.6 L (25-40) % Miller % (Auto) 6.3 (3-14) % Eos % (Auto) 3.8 (2-4) % Baso % (Auto) 0.9 (0-2) % Neut # (Auto) 8200 H (5438-0068) /uL Lymph # (Auto) 1100 (5569-5121) /uL Miller # (Auto) 700 (0-900) /uL Eos # (Auto) 400 (0-450) /uL Baso # (Auto) 100 (0-100) /uL PT (10.1-12.7) SECONDS INR (0.9-1.3) APTT (26-36) SECONDS D-Dimer (<500) ng/ml Sodium 133 L (137-145) mmol/L Potassium 4.2 (3.4-5.1) mmol/L Chloride 104 (98-107) mmol/L Carbon Dioxide 23 (22-32) mmol/L BUN 3 L (9-20) mg/dL Creatinine 0.37 L (0.66-1.25) mg/dL Estimated GFR > 60 (>60) mL/min BUN/Creatinine Ratio 8.1 (6-22) Glucose 55 L (70-100) mg/dL Lactate (0.7-2.1) mmol/L Calcium 8.4 (8.4-10.2) mg/dL Phosphorus (2.5-4.5) mg/dL Magnesium (1.6-2.3) mg/dL Total Bilirubin 0.5 (0.2-1.3) mg/dL AST 14 L (17-59) IU/L ALT 8 (<50) IU/L Alkaline Phosphatase 102 (38-126) U/L Total Protein 7.3 (6.3-8.2) g/dL Albumin 3.4 L (3.5-5.0) g/dL Globulin 3.9 (1.7-4.1) g/dL Albumin/Globulin Ratio 0.9 L (1.0-2.8) Prealbumin (17.6-36.0) mg/dL Triglycerides (35-150) mg/dL Lipase (23-300) U/L Procalcitonin (<0.5) ng/mL Nasal Screen MRSA (PCR) (Not Detect) Stl C. cayetanensis PCR (Not Detect) Stool Rotavirus (PCR) (Not Detect) Stool Adenovirus (PCR) (Not Detect) Stool Astrovirus (PCR) (Not Detect) Stool Cryptosporidium PCR (Not Detect) Stl E.coli Shiga Tox PCR (Not Detect) St Sh/Enteroin Ecoli PCR (Not Detect) Stool E coli O157 PCR Stl Enterotoxigenic E PCR (Not Detect) Stool EPEC (PCR) (Not Detect) Stl E. histolytica PCR (Not Detect) Stool Giardia Lamblia PCR (Not Detect) Stool Sapovirus (PCR) (Not Detect) Stl P. shigelloides PCR (Not Detect) St Y.enterocolitica PCR (Not Detect) Stool Vibrio (PCR) (Not Detect) Stl Vibrio cholerae PCR (Not Detect) Stl Enteroaggr Ecoli PCR (Not Detect) Stl Norovirus GI/GII PCR (Not Detect) Vancomycin Peak 32.4 (20-40) ug/mL Vancomycin Trough Chlamy pneumoniae PCR (Not Detect) Adenovirus (PCR) (Not Detect) B. pertussis DNA (PCR) (Not Detecte) B.parapertussis DNA PCR (Not Detecte) Campylobacter (PCR) (Not Detect) C. difficile Tox (PCR) (Not Detect) Coronavirus OC43 (PCR) (Not Detect) Coronavirus HKU1 (PCR) (Not Detect) Coronavirus 229E (PCR) (Not Detect) SARS-CoV-2 (PCR) (Not Detecte) Coronavirus NL63 (PCR) (Not Detect) Human Metapneumovir PCR (Not Detect) Influenza Type A (PCR) (Not Detect) Influenza Type B (PCR) (Not Detect) M. pneumoniae (PCR) (Not Detect) Parainfluenza 1 (PCR) (Not Detect) Parainfluenza 2 (PCR) (Not Detect) Parainfluenza 3 (PCR) (Not Detect) Parainfluenza 4 (PCR) (Not Detect) RSV (PCR) (Not Detect) Entero/Rhino (PCR) (Not Detect) Salmonella (PCR) (Not Detect) 01/05/23 01/06/23 01/06/23 Range/Units 12:18 07:50 07:50 WBC 10.8 (4.5-11.0) X10^3/uL RBC 4.33 L (4.5-5.9) X10^6/uL Hgb 10.8 L (13.5-17.5) g/dL Hct 33.2 L (41-53) % MCV 76.7 L (80-100) fL MCH 25.0 L (26-34) PG MCHC 32.6 (30-36) % RDW 14.5 (11.6-14.8) % Plt Count 366 (150-400) X10^3/uL Neut % (Auto) 90.2 H (50-75) % Lymph % (Auto) 6.1 L (25-40) % Miller % (Auto) 1.9 L (3-14) % Eos % (Auto) 1.2 L (2-4) % Baso % (Auto) 0.6 (0-2) % Neut # (Auto) 9700 H (7815-7274) /uL Lymph # (Auto) 700 L (8230-3948) /uL Miller # (Auto) 200 (0-900) /uL Eos # (Auto) 100 (0-450) /uL Baso # (Auto) 100 (0-100) /uL PT (10.1-12.7) SECONDS INR (0.9-1.3) APTT (26-36) SECONDS D-Dimer (<500) ng/ml Sodium 130 L (137-145) mmol/L Potassium 3.6 (3.4-5.1) mmol/L Chloride 101 (98-107) mmol/L Carbon Dioxide 19 L (22-32) mmol/L BUN 2 L (9-20) mg/dL Creatinine 0.28 L (0.66-1.25) mg/dL Estimated GFR > 60 (>60) mL/min BUN/Creatinine Ratio 7.1 (6-22) Glucose 166 H D (70-100) mg/dL Lactate (0.7-2.1) mmol/L Calcium 7.9 L (8.4-10.2) mg/dL Phosphorus (2.5-4.5) mg/dL Magnesium (1.6-2.3) mg/dL Total Bilirubin 0.3 (0.2-1.3) mg/dL AST 14 L (17-59) IU/L ALT 8 (<50) IU/L Alkaline Phosphatase 93 (38-126) U/L Total Protein 6.3 (6.3-8.2) g/dL Albumin 2.9 L (3.5-5.0) g/dL Globulin 3.4 (1.7-4.1) g/dL Albumin/Globulin Ratio 0.9 L (1.0-2.8) Prealbumin (17.6-36.0) mg/dL Triglycerides (35-150) mg/dL Lipase (23-300) U/L Procalcitonin (<0.5) ng/mL Nasal Screen MRSA (PCR) (Not Detect) Stl C. cayetanensis PCR (Not Detect) Stool Rotavirus (PCR) (Not Detect) Stool Adenovirus (PCR) (Not Detect) Stool Astrovirus (PCR) (Not Detect) Stool Cryptosporidium PCR (Not Detect) Stl E.coli Shiga Tox PCR (Not Detect) St Sh/Enteroin Ecoli PCR (Not Detect) Stool E coli O157 PCR Stl Enterotoxigenic E PCR (Not Detect) Stool EPEC (PCR) (Not Detect) Stl E. histolytica PCR (Not Detect) Stool Giardia Lamblia PCR (Not Detect) Stool Sapovirus (PCR) (Not Detect) Stl P. shigelloides PCR (Not Detect) St Y.enterocolitica PCR (Not Detect) Stool Vibrio (PCR) (Not Detect) Stl Vibrio cholerae PCR (Not Detect) Stl Enteroaggr Ecoli PCR (Not Detect) Stl Norovirus GI/GII PCR (Not Detect) Vancomycin Peak (20-40) ug/mL Vancomycin Trough 25.2 H* Chlamy pneumoniae PCR (Not Detect) Adenovirus (PCR) (Not Detect) B. pertussis DNA (PCR) (Not Detecte) B.parapertussis DNA PCR (Not Detecte) Campylobacter (PCR) (Not Detect) C. difficile Tox (PCR) (Not Detect) Coronavirus OC43 (PCR) (Not Detect) Coronavirus HKU1 (PCR) (Not Detect) Coronavirus 229E (PCR) (Not Detect) SARS-CoV-2 (PCR) (Not Detecte) Coronavirus NL63 (PCR) (Not Detect) Human Metapneumovir PCR (Not Detect) Influenza Type A (PCR) (Not Detect) Influenza Type B (PCR) (Not Detect) M. pneumoniae (PCR) (Not Detect) Parainfluenza 1 (PCR) (Not Detect) Parainfluenza 2 (PCR) (Not Detect) Parainfluenza 3 (PCR) (Not Detect) Parainfluenza 4 (PCR) (Not Detect) RSV (PCR) (Not Detect) Entero/Rhino (PCR) (Not Detect) Salmonella (PCR) (Not Detect) 01/06/23 01/06/23 01/06/23 Range/Units 07:50 07:50 12:22 WBC (4.5-11.0) X10^3/uL RBC (4.5-5.9) X10^6/uL Hgb (13.5-17.5) g/dL Hct (41-53) % MCV (80-100) fL MCH (26-34) PG MCHC (30-36) % RDW (11.6-14.8) % Plt Count (150-400) X10^3/uL Neut % (Auto) (50-75) % Lymph % (Auto) (25-40) % Miller % (Auto) (3-14) % Eos % (Auto) (2-4) % Baso % (Auto) (0-2) % Neut # (Auto) (2060-5409) /uL Lymph # (Auto) (2534-0703) /uL Miller # (Auto) (0-900) /uL Eos # (Auto) (0-450) /uL Baso # (Auto) (0-100) /uL PT (10.1-12.7) SECONDS INR (0.9-1.3) APTT (26-36) SECONDS D-Dimer (<500) ng/ml Sodium (137-145) mmol/L Potassium (3.4-5.1) mmol/L Chloride (98-107) mmol/L Carbon Dioxide (22-32) mmol/L BUN (9-20) mg/dL Creatinine (0.66-1.25) mg/dL Estimated GFR (>60) mL/min BUN/Creatinine Ratio (6-22) Glucose (70-100) mg/dL Lactate (0.7-2.1) mmol/L Calcium (8.4-10.2) mg/dL Phosphorus 2.4 L (2.5-4.5) mg/dL Magnesium 1.6 (1.6-2.3) mg/dL Total Bilirubin (0.2-1.3) mg/dL AST (17-59) IU/L ALT (<50) IU/L Alkaline Phosphatase (38-126) U/L Total Protein (6.3-8.2) g/dL Albumin (3.5-5.0) g/dL Globulin (1.7-4.1) g/dL Albumin/Globulin Ratio (1.0-2.8) Prealbumin 3.0 L (17.6-36.0) mg/dL Triglycerides 80 (35-150) mg/dL Lipase (23-300) U/L Procalcitonin 0.11 (<0.5) ng/mL Nasal Screen MRSA (PCR) Detected H (Not Detect) Stl C. cayetanensis PCR (Not Detect) Stool Rotavirus (PCR) (Not Detect) Stool Adenovirus (PCR) (Not Detect) Stool Astrovirus (PCR) (Not Detect) Stool Cryptosporidium PCR (Not Detect) Stl E.coli Shiga Tox PCR (Not Detect) St Sh/Enteroin Ecoli PCR (Not Detect) Stool E coli O157 PCR Stl Enterotoxigenic E PCR (Not Detect) Stool EPEC (PCR) (Not Detect) Stl E. histolytica PCR (Not Detect) Stool Giardia Lamblia PCR (Not Detect) Stool Sapovirus (PCR) (Not Detect) Stl P. shigelloides PCR (Not Detect) St Y.enterocolitica PCR (Not Detect) Stool Vibrio (PCR) (Not Detect) Stl Vibrio cholerae PCR (Not Detect) Stl Enteroaggr Ecoli PCR (Not Detect) Stl Norovirus GI/GII PCR (Not Detect) Vancomycin Peak (20-40) ug/mL Vancomycin Trough Chlamy pneumoniae PCR (Not Detect) Adenovirus (PCR) (Not Detect) B. pertussis DNA (PCR) (Not Detecte) B.parapertussis DNA PCR (Not Detecte) Campylobacter (PCR) (Not Detect) C. difficile Tox (PCR) (Not Detect) Coronavirus OC43 (PCR) (Not Detect) Coronavirus HKU1 (PCR) (Not Detect) Coronavirus 229E (PCR) (Not Detect) SARS-CoV-2 (PCR) (Not Detecte) Coronavirus NL63 (PCR) (Not Detect) Human Metapneumovir PCR (Not Detect) Influenza Type A (PCR) (Not Detect) Influenza Type B (PCR) (Not Detect) M. pneumoniae (PCR) (Not Detect) Parainfluenza 1 (PCR) (Not Detect) Parainfluenza 2 (PCR) (Not Detect) Parainfluenza 3 (PCR) (Not Detect) Parainfluenza 4 (PCR) (Not Detect) RSV (PCR) (Not Detect) Entero/Rhino (PCR) (Not Detect) Salmonella (PCR) (Not Detect) 01/06/23 Range/Units 15:48 WBC (4.5-11.0) X10^3/uL RBC (4.5-5.9) X10^6/uL Hgb (13.5-17.5) g/dL Hct (41-53) % MCV (80-100) fL MCH (26-34) PG MCHC (30-36) % RDW (11.6-14.8) % Plt Count (150-400) X10^3/uL Neut % (Auto) (50-75) % Lymph % (Auto) (25-40) % Miller % (Auto) (3-14) % Eos % (Auto) (2-4) % Baso % (Auto) (0-2) % Neut # (Auto) (6748-1515) /uL Lymph # (Auto) (9767-5656) /uL Miller # (Auto) (0-900) /uL Eos # (Auto) (0-450) /uL Baso # (Auto) (0-100) /uL PT (10.1-12.7) SECONDS INR (0.9-1.3) APTT (26-36) SECONDS D-Dimer (<500) ng/ml Sodium (137-145) mmol/L Potassium (3.4-5.1) mmol/L Chloride (98-107) mmol/L Carbon Dioxide (22-32) mmol/L BUN (9-20) mg/dL Creatinine (0.66-1.25) mg/dL Estimated GFR (>60) mL/min BUN/Creatinine Ratio (6-22) Glucose (70-100) mg/dL Lactate (0.7-2.1) mmol/L Calcium (8.4-10.2) mg/dL Phosphorus (2.5-4.5) mg/dL Magnesium (1.6-2.3) mg/dL Total Bilirubin (0.2-1.3) mg/dL AST (17-59) IU/L ALT (<50) IU/L Alkaline Phosphatase (38-126) U/L Total Protein (6.3-8.2) g/dL Albumin (3.5-5.0) g/dL Globulin (1.7-4.1) g/dL Albumin/Globulin Ratio (1.0-2.8) Prealbumin (17.6-36.0) mg/dL Triglycerides (35-150) mg/dL Lipase (23-300) U/L Procalcitonin (<0.5) ng/mL Nasal Screen MRSA (PCR) (Not Detect) Stl C. cayetanensis PCR Not detected (Not Detect) Stool Rotavirus (PCR) Not detected (Not Detect) Stool Adenovirus (PCR) Not detected (Not Detect) Stool Astrovirus (PCR) Not detected (Not Detect) Stool Cryptosporidium PCR Not detected (Not Detect) Stl E.coli Shiga Tox PCR Not detected (Not Detect) St Sh/Enteroin Ecoli PCR Not detected (Not Detect) Stool E coli O157 PCR Not Reportable Stl Enterotoxigenic E PCR Not detected (Not Detect) Stool EPEC (PCR) Not detected (Not Detect) Stl E. histolytica PCR Not detected (Not Detect) Stool Giardia Lamblia PCR Not detected (Not Detect) Stool Sapovirus (PCR) Not detected (Not Detect) Stl P. shigelloides PCR Not detected (Not Detect) St Y.enterocolitica PCR Not detected (Not Detect) Stool Vibrio (PCR) Not detected (Not Detect) Stl Vibrio cholerae PCR Not detected (Not Detect) Stl Enteroaggr Ecoli PCR Not detected (Not Detect) Stl Norovirus GI/GII PCR Not detected (Not Detect) Vancomycin Peak (20-40) ug/mL Vancomycin Trough Chlamy pneumoniae PCR (Not Detect) Adenovirus (PCR) (Not Detect) B. pertussis DNA (PCR) (Not Detecte) B.parapertussis DNA PCR (Not Detecte) Campylobacter (PCR) Not detected (Not Detect) C. difficile Tox (PCR) Not detected (Not Detect) Coronavirus OC43 (PCR) (Not Detect) Coronavirus HKU1 (PCR) (Not Detect) Coronavirus 229E (PCR) (Not Detect) SARS-CoV-2 (PCR) (Not Detecte) Coronavirus NL63 (PCR) (Not Detect) Human Metapneumovir PCR (Not Detect) Influenza Type A (PCR) (Not Detect) Influenza Type B (PCR) (Not Detect) M. pneumoniae (PCR) (Not Detect) Parainfluenza 1 (PCR) (Not Detect) Parainfluenza 2 (PCR) (Not Detect) Parainfluenza 3 (PCR) (Not Detect) Parainfluenza 4 (PCR) (Not Detect) RSV (PCR) (Not Detect) Entero/Rhino (PCR) (Not Detect) Salmonella (PCR) Not detected (Not Detect) Point of Care Testing Glucose POC 118 Urine Dip Bedside Urine Glucose Negative Bedside Urine Bilirubin - Negative Bedside Urine Ketone - Negative Urine Specific [place]pre 1.015 Bedside Urine Occult Blood - Negative Bedside Urine pH 6 Bedside Urine Protein - Negative Bedside Urine Urobilinogen - Negative Bedside Urine Nitrite - Negative Bedside Urine Leukocytes - Negative Esterase Point of care testing: Point of Care Testing Glucose POC 118 Urine Dip Bedside Urine Glucose Negative Bedside Urine Bilirubin - Negative Bedside Urine Ketone - Negative Urine Specific Belpre 1.015 Bedside Urine Occult Blood - Negative Bedside Urine pH 6 Bedside Urine Protein - Negative Bedside Urine Urobilinogen - Negative Bedside Urine Nitrite - Negative Bedside Urine Leukocytes - Negative Esterase MDM Narrative Medical decision making narrative: CC: Increasing dyspnea Complicating co-morbidities: Hemiparesis secondary pediatric glioblastoma, wheelchair-bound, recurrent pneumonias, abnormalities appreciated on chest x-ray with CT scan of the chest anticipated tomorrow Data collected from: patient, mother Social determinants of health that may influence the patients condition: Functional quadriplegia Medical records reviewed: Hospitalized August of 2022 for acute respiratory failure secondary to influenza a and concurrent bacterial pneumonia. Walk-in clinic notes on November 21 with increasing mucus production and again primary care notes December 16 with increasing cough and breathing diagnosed with a left lower lobe pneumonia and treated with azithromycin. Differential considered: Recurrent pneumonia, pulmonary embolism, congestive heart failure, pneumothorax, pleural effusions, sepsis, viral etiology Exam documented above, pertinent findings include: Mild wheezing in all lung matthew with diffuse rhonchi on the left side. Lab Test results independently reviewed as above. Pertinent findings: CBC indicates a white count of 18.5 with left shift and no significant anemia Chemistries are actually relatively reassuring with mild hypoglycemia a glucose 60. D-dimer is elevated greater than 2000 Independently reviewed EKG Sinus tachycardia at a rate of [address] T wave abnormalities without acute ischemia Normal intervals and normal axis Imaging studies independently reviewed: Per radiology dictation Persistent dense retrocardiac opacity and left perihilar infiltrate.? Given volume loss in the left hemithorax, findings are suggestive of left lower lobe atelectasis.? An underlying malignancy should be excluded.? Given the elevated D-dimer,CTA of the chest is ordered rather than plain CT of the chest. CT scan does not demonstrate pulmonary embolism however Centrilobular nodules bilaterally, particularly on the left upper lobe.? Dense consolidation again seen in the left lower lobe, likely with underlying atelectasis.? Moderate left pleural effusion, with pleural enhancement. Treatments: Fluids, IV antibiotics with cefepime and vancomycin and maintenance fluids with dextrose given his slightly low sugar. Discussion: 42-year-old gentleman with functional quadriplegia, chronic bedsore and recurrent left lower lobe pneumonia with concerns for obstructive physiology with persistent left pleural effusion. He was admitted in August with similar findings treated with antibiotics. Was treated with outpatient azithromycin 2 weeks ago continues to have recurrent symptoms and at this point I think he is going to need pulmonary inpatient consultation possible bronchoscopy. To that end have reviewed his case with our hospitalist service. They will consult in the emergency department but will continue to look for bed available at hospital with inpatient pulmonology Infectious Disease consultation available. All of these are reviewed with patient and his mother. Will work on hospital bed, cleaning up his bedsore to make sure that it is not getting worse while we are waiting for inpatient bed and began working on the placement. <Norman Perrin, DO - Last Filed: 01/04/23 18:49> Lab Data Labs: Lab Results 01/03/23 01/03/23 01/03/23 Range/Units 20:00 20:00 20:00 WBC 18.5 H (4.5-11.0) X10^3/uL RBC 5.18 (4.5-5.9) X10^6/uL Hgb 13.0 L (13.5-17.5) g/dL Hct 39.9 L (41-53) % MCV 77.1 L (80-100) fL MCH 25.0 L (26-34) PG MCHC 32.5 (30-36) % RDW 14.5 (11.6-14.8) % Plt Count 594 H (150-400) X10^3/uL Neut % (Auto) 85.9 H (50-75) % Lymph % (Auto) 7.2 L (25-40) % Miller % (Auto) 5.9 (3-14) % Eos % (Auto) 0.6 L (2-4) % Baso % (Auto) 0.4 (0-2) % Neut # (Auto) 55460 H (1892-4024) /uL Lymph # (Auto) 1300 (0425-5865) /uL Miller # (Auto) 1100 H (0-900) /uL Eos # (Auto) 100 (0-450) /uL Baso # (Auto) 100 (0-100) /uL PT 17.6 H (10.1-12.7) SECONDS INR 1.5 H (0.9-1.3) APTT 46 H (26-36) SECONDS D-Dimer (<500) ng/ml Sodium 134 L (137-145) mmol/L Potassium 4.8 (3.4-5.1) mmol/L Chloride 97 L (98-107) mmol/L Carbon Dioxide 22 (22-32) mmol/L BUN 8 L (9-20) mg/dL Creatinine 0.41 L (0.66-1.25) mg/dL Estimated GFR > 60 (>60) mL/min BUN/Creatinine Ratio 19.5 (6-22) Glucose 60 L (70-100) mg/dL Lactate (0.7-2.1) mmol/L Calcium 9.4 (8.4-10.2) mg/dL Phosphorus (2.5-4.5) mg/dL Magnesium (1.6-2.3) mg/dL Total Bilirubin 0.8 (0.2-1.3) mg/dL AST 17 (17-59) IU/L ALT 11 (<50) IU/L Alkaline Phosphatase 136 H (38-126) U/L Total Protein 9.0 H (6.3-8.2) g/dL Albumin 4.1 (3.5-5.0) g/dL Globulin 4.9 H (1.7-4.1) g/dL Albumin/Globulin Ratio 0.8 L (1.0-2.8) Prealbumin (17.6-36.0) mg/dL Triglycerides (35-150) mg/dL Lipase 34 (23-300) U/L Procalcitonin 0.12 (<0.5) ng/mL Nasal Screen MRSA (PCR) (Not Detect) Stl C. cayetanensis PCR (Not Detect) Stool Rotavirus (PCR) (Not Detect) Stool Adenovirus (PCR) (Not Detect) Stool Astrovirus (PCR) (Not Detect) Stool Cryptosporidium PCR (Not Detect) Stl E.coli Shiga Tox PCR (Not Detect) St Sh/Enteroin Ecoli PCR (Not Detect) Stool E coli O157 PCR Stl Enterotoxigenic E PCR (Not Detect) Stool EPEC (PCR) (Not Detect) Stl E. histolytica PCR (Not Detect) Stool Giardia Lamblia PCR (Not Detect) Stool Sapovirus (PCR) (Not Detect) Stl P. shigelloides PCR (Not Detect) St Y.enterocolitica PCR (Not Detect) Stool Vibrio (PCR) (Not Detect) Stl Vibrio cholerae PCR (Not Detect) Stl Enteroaggr Ecoli PCR (Not Detect) Stl Norovirus GI/GII PCR (Not Detect) Vancomycin Peak (20-40) ug/mL Vancomycin Trough Chlamy pneumoniae PCR (Not Detect) Adenovirus (PCR) (Not Detect) B. pertussis DNA (PCR) (Not Detecte) B.parapertussis DNA PCR (Not Detecte) Campylobacter (PCR) (Not Detect) C. difficile Tox (PCR) (Not Detect) Coronavirus OC43 (PCR) (Not Detect) Coronavirus HKU1 (PCR) (Not Detect) Coronavirus 229E (PCR) (Not Detect) SARS-CoV-2 (PCR) (Not Detecte) Coronavirus NL63 (PCR) (Not Detect) Human Metapneumovir PCR (Not Detect) Influenza Type A (PCR) (Not Detect) Influenza Type B (PCR) (Not Detect) M. pneumoniae (PCR) (Not Detect) Parainfluenza 1 (PCR) (Not Detect) Parainfluenza 2 (PCR) (Not Detect) Parainfluenza 3 (PCR) (Not Detect) Parainfluenza 4 (PCR) (Not Detect) RSV (PCR) (Not Detect) Entero/Rhino (PCR) (Not Detect) Salmonella (PCR) (Not Detect) 01/03/23 01/03/23 01/03/23 Range/Units 20:00 20:00 20:17 WBC (4.5-11.0) X10^3/uL RBC (4.5-5.9) X10^6/uL Hgb (13.5-17.5) g/dL Hct (41-53) % MCV (80-100) fL MCH (26-34) PG MCHC (30-36) % RDW (11.6-14.8) % Plt Count (150-400) X10^3/uL Neut % (Auto) (50-75) % Lymph % (Auto) (25-40) % Miller % (Auto) (3-14) % Eos % (Auto) (2-4) % Baso % (Auto) (0-2) % Neut # (Auto) (3460-3600) /uL Lymph # (Auto) (5218-6005) /uL Miller # (Auto) (0-900) /uL Eos # (Auto) (0-450) /uL Baso # (Auto) (0-100) /uL PT (10.1-12.7) SECONDS INR (0.9-1.3) APTT (26-36) SECONDS D-Dimer 2141 H (<500) ng/ml Sodium (137-145) mmol/L Potassium (3.4-5.1) mmol/L Chloride (98-107) mmol/L Carbon Dioxide (22-32) mmol/L BUN (9-20) mg/dL Creatinine (0.66-1.25) mg/dL Estimated GFR (>60) mL/min BUN/Creatinine Ratio (6-22) Glucose (70-100) mg/dL Lactate 1.5 (0.7-2.1) mmol/L Calcium (8.4-10.2) mg/dL Phosphorus (2.5-4.5) mg/dL Magnesium (1.6-2.3) mg/dL Total Bilirubin (0.2-1.3) mg/dL AST (17-59) IU/L ALT (<50) IU/L Alkaline Phosphatase (38-126) U/L Total Protein (6.3-8.2) g/dL Albumin (3.5-5.0) g/dL Globulin (1.7-4.1) g/dL Albumin/Globulin Ratio (1.0-2.8) Prealbumin (17.6-36.0) mg/dL Triglycerides (35-150) mg/dL Lipase (23-300) U/L Procalcitonin (<0.5) ng/mL Nasal Screen MRSA (PCR) (Not Detect) Stl C. cayetanensis PCR (Not Detect) Stool Rotavirus (PCR) (Not Detect) Stool Adenovirus (PCR) (Not Detect) Stool Astrovirus (PCR) (Not Detect) Stool Cryptosporidium PCR (Not Detect) Stl E.coli Shiga Tox PCR (Not Detect) St Sh/Enteroin Ecoli PCR (Not Detect) Stool E coli O157 PCR Stl Enterotoxigenic E PCR (Not Detect) Stool EPEC (PCR) (Not Detect) Stl E. histolytica PCR (Not Detect) Stool Giardia Lamblia PCR (Not Detect) Stool Sapovirus (PCR) (Not Detect) Stl P. shigelloides PCR (Not Detect) St Y.enterocolitica PCR (Not Detect) Stool Vibrio (PCR) (Not Detect) Stl Vibrio cholerae PCR (Not Detect) Stl Enteroaggr Ecoli PCR (Not Detect) Stl Norovirus GI/GII PCR (Not Detect) Vancomycin Peak (20-40) ug/mL Vancomycin Trough Chlamy pneumoniae PCR Not detected (Not Detect) Adenovirus (PCR) Not detected (Not Detect) B. pertussis DNA (PCR) Not detected (Not Detecte) B.parapertussis DNA PCR Not detected (Not Detecte) Campylobacter (PCR) (Not Detect) C. difficile Tox (PCR) (Not Detect) Coronavirus OC43 (PCR) Not detected (Not Detect) Coronavirus HKU1 (PCR) Not detected (Not Detect) Coronavirus 229E (PCR) Not detected (Not Detect) SARS-CoV-2 (PCR) Not detected (Not Detecte) Coronavirus NL63 (PCR) Not detected (Not Detect) Human Metapneumovir PCR Not detected (Not Detect) Influenza Type A (PCR) Not detected (Not Detect) Influenza Type B (PCR) Not detected (Not Detect) M. pneumoniae (PCR) Not detected (Not Detect) Parainfluenza 1 (PCR) Not detected (Not Detect) Parainfluenza 2 (PCR) Not detected (Not Detect) Parainfluenza 3 (PCR) Not detected (Not Detect) Parainfluenza 4 (PCR) Not detected (Not Detect) RSV (PCR) Not detected (Not Detect) Entero/Rhino (PCR) Not detected (Not Detect) Salmonella (PCR) (Not Detect) 01/04/23 01/04/23 01/04/23 Range/Units 06:33 06:33 19:55 WBC 11.4 H (4.5-11.0) X10^3/uL RBC 4.18 L (4.5-5.9) X10^6/uL Hgb 10.5 L (13.5-17.5) g/dL Hct 32.3 L (41-53) % MCV 77.4 L (80-100) fL MCH 25.2 L (26-34) PG MCHC 32.6 (30-36) % RDW 14.1 (11.6-14.8) % Plt Count 447 H (150-400) X10^3/uL Neut % (Auto) 79.8 H (50-75) % Lymph % (Auto) 10.7 L (25-40) % Miller % (Auto) 6.3 (3-14) % Eos % (Auto) 1.9 L (2-4) % Baso % (Auto) 1.3 (0-2) % Neut # (Auto) 9100 H (4437-5057) /uL Lymph # (Auto) 1200 (4220-3094) /uL Miller # (Auto) 700 (0-900) /uL Eos # (Auto) 200 (0-450) /uL Baso # (Auto) 200 H (0-100) /uL PT (10.1-12.7) SECONDS INR (0.9-1.3) APTT (26-36) SECONDS D-Dimer (<500) ng/ml Sodium 133 L (137-145) mmol/L Potassium 4.0 (3.4-5.1) mmol/L Chloride 101 (98-107) mmol/L Carbon Dioxide 29 (22-32) mmol/L BUN 5 L (9-20) mg/dL Creatinine 0.38 L (0.66-1.25) mg/dL Estimated GFR > 60 (>60) mL/min BUN/Creatinine Ratio 13.2 (6-22) Glucose 90 (70-100) mg/dL Lactate (0.7-2.1) mmol/L Calcium 8.2 L (8.4-10.2) mg/dL Phosphorus (2.5-4.5) mg/dL Magnesium (1.6-2.3) mg/dL Total Bilirubin 0.3 (0.2-1.3) mg/dL AST 14 L (17-59) IU/L ALT 11 (<50) IU/L Alkaline Phosphatase 92 (38-126) U/L Total Protein 7.0 (6.3-8.2) g/dL Albumin 3.1 L (3.5-5.0) g/dL Globulin 3.9 (1.7-4.1) g/dL Albumin/Globulin Ratio 0.8 L (1.0-2.8) Prealbumin (17.6-36.0) mg/dL Triglycerides (35-150) mg/dL Lipase (23-300) U/L Procalcitonin (<0.5) ng/mL Nasal Screen MRSA (PCR) (Not Detect) Stl C. cayetanensis PCR (Not Detect) Stool Rotavirus (PCR) (Not Detect) Stool Adenovirus (PCR) (Not Detect) Stool Astrovirus (PCR) (Not Detect) Stool Cryptosporidium PCR (Not Detect) Stl E.coli Shiga Tox PCR (Not Detect) St Sh/Enteroin Ecoli PCR (Not Detect) Stool E coli O157 PCR Stl Enterotoxigenic E PCR (Not Detect) Stool EPEC (PCR) (Not Detect) Stl E. histolytica PCR (Not Detect) Stool Giardia Lamblia PCR (Not Detect) Stool Sapovirus (PCR) (Not Detect) Stl P. shigelloides PCR (Not Detect) St Y.enterocolitica PCR (Not Detect) Stool Vibrio (PCR) (Not Detect) Stl Vibrio cholerae PCR (Not Detect) Stl Enteroaggr Ecoli PCR (Not Detect) Stl Norovirus GI/GII PCR (Not Detect) Vancomycin Peak (20-40) ug/mL Vancomycin Trough Cancelled Chlamy pneumoniae PCR (Not Detect) Adenovirus (PCR) (Not Detect) B. pertussis DNA (PCR) (Not Detecte) B.parapertussis DNA PCR (Not Detecte) Campylobacter (PCR) (Not Detect) C. difficile Tox (PCR) (Not Detect) Coronavirus OC43 (PCR) (Not Detect) Coronavirus HKU1 (PCR) (Not Detect) Coronavirus 229E (PCR) (Not Detect) SARS-CoV-2 (PCR) (Not Detecte) Coronavirus NL63 (PCR) (Not Detect) Human Metapneumovir PCR (Not Detect) Influenza Type A (PCR) (Not Detect) Influenza Type B (PCR) (Not Detect) M. pneumoniae (PCR) (Not Detect) Parainfluenza 1 (PCR) (Not Detect) Parainfluenza 2 (PCR) (Not Detect) Parainfluenza 3 (PCR) (Not Detect) Parainfluenza 4 (PCR) (Not Detect) RSV (PCR) (Not Detect) Entero/Rhino (PCR) (Not Detect) Salmonella (PCR) (Not Detect) 01/04/23 01/05/23 01/05/23 Range/Units 22:03 06:40 06:40 WBC 10.5 (4.5-11.0) X10^3/uL RBC 4.65 (4.5-5.9) X10^6/uL Hgb 11.7 L (13.5-17.5) g/dL Hct 36.1 L (41-53) % MCV 77.7 L (80-100) fL MCH 25.1 L (26-34) PG MCHC 32.3 (30-36) % RDW 14.7 (11.6-14.8) % Plt Count 430 H (150-400) X10^3/uL Neut % (Auto) 78.4 H (50-75) % Lymph % (Auto) 10.6 L (25-40) % Miller % (Auto) 6.3 (3-14) % Eos % (Auto) 3.8 (2-4) % Baso % (Auto) 0.9 (0-2) % Neut # (Auto) 8200 H (1090-4734) /uL Lymph # (Auto) 1100 (2230-8052) /uL Miller # (Auto) 700 (0-900) /uL Eos # (Auto) 400 (0-450) /uL Baso # (Auto) 100 (0-100) /uL PT (10.1-12.7) SECONDS INR (0.9-1.3) APTT (26-36) SECONDS D-Dimer (<500) ng/ml Sodium 133 L (137-145) mmol/L Potassium 4.2 (3.4-5.1) mmol/L Chloride 104 (98-107) mmol/L Carbon Dioxide 23 (22-32) mmol/L BUN 3 L (9-20) mg/dL Creatinine 0.37 L (0.66-1.25) mg/dL Estimated GFR > 60 (>60) mL/min BUN/Creatinine Ratio 8.1 (6-22) Glucose 55 L (70-100) mg/dL Lactate (0.7-2.1) mmol/L Calcium 8.4 (8.4-10.2) mg/dL Phosphorus (2.5-4.5) mg/dL Magnesium (1.6-2.3) mg/dL Total Bilirubin 0.5 (0.2-1.3) mg/dL AST 14 L (17-59) IU/L ALT 8 (<50) IU/L Alkaline Phosphatase 102 (38-126) U/L Total Protein 7.3 (6.3-8.2) g/dL Albumin 3.4 L (3.5-5.0) g/dL Globulin 3.9 (1.7-4.1) g/dL Albumin/Globulin Ratio 0.9 L (1.0-2.8) Prealbumin (17.6-36.0) mg/dL Triglycerides (35-150) mg/dL Lipase (23-300) U/L Procalcitonin (<0.5) ng/mL Nasal Screen MRSA (PCR) (Not Detect) Stl C. cayetanensis PCR (Not Detect) Stool Rotavirus (PCR) (Not Detect) Stool Adenovirus (PCR) (Not Detect) Stool Astrovirus (PCR) (Not Detect) Stool Cryptosporidium PCR (Not Detect) Stl E.coli Shiga Tox PCR (Not Detect) St Sh/Enteroin Ecoli PCR (Not Detect) Stool E coli O157 PCR Stl Enterotoxigenic E PCR (Not Detect) Stool EPEC (PCR) (Not Detect) Stl E. histolytica PCR (Not Detect) Stool Giardia Lamblia PCR (Not Detect) Stool Sapovirus (PCR) (Not Detect) Stl P. shigelloides PCR (Not Detect) St Y.enterocolitica PCR (Not Detect) Stool Vibrio (PCR) (Not Detect) Stl Vibrio cholerae PCR (Not Detect) Stl Enteroaggr Ecoli PCR (Not Detect) Stl Norovirus GI/GII PCR (Not Detect) Vancomycin Peak 32.4 (20-40) ug/mL Vancomycin Trough Chlamy pneumoniae PCR (Not Detect) Adenovirus (PCR) (Not Detect) B. pertussis DNA (PCR) (Not Detecte) B.parapertussis DNA PCR (Not Detecte) Campylobacter (PCR) (Not Detect) C. difficile Tox (PCR) (Not Detect) Coronavirus OC43 (PCR) (Not Detect) Coronavirus HKU1 (PCR) (Not Detect) Coronavirus 229E (PCR) (Not Detect) SARS-CoV-2 (PCR) (Not Detecte) Coronavirus NL63 (PCR) (Not Detect) Human Metapneumovir PCR (Not Detect) Influenza Type A (PCR) (Not Detect) Influenza Type B (PCR) (Not Detect) M. pneumoniae (PCR) (Not Detect) Parainfluenza 1 (PCR) (Not Detect) Parainfluenza 2 (PCR) (Not Detect) Parainfluenza 3 (PCR) (Not Detect) Parainfluenza 4 (PCR) (Not Detect) RSV (PCR) (Not Detect) Entero/Rhino (PCR) (Not Detect) Salmonella (PCR) (Not Detect) 01/05/23 01/06/23 01/06/23 Range/Units 12:18 07:50 07:50 WBC 10.8 (4.5-11.0) X10^3/uL RBC 4.33 L (4.5-5.9) X10^6/uL Hgb 10.8 L (13.5-17.5) g/dL Hct 33.2 L (41-53) % MCV 76.7 L (80-100) fL MCH 25.0 L (26-34) PG MCHC 32.6 (30-36) % RDW 14.5 (11.6-14.8) % Plt Count 366 (150-400) X10^3/uL Neut % (Auto) 90.2 H (50-75) % Lymph % (Auto) 6.1 L (25-40) % Miller % (Auto) 1.9 L (3-14) % Eos % (Auto) 1.2 L (2-4) % Baso % (Auto) 0.6 (0-2) % Neut # (Auto) 9700 H (2944-5873) /uL Lymph # (Auto) 700 L (8085-2558) /uL Miller # (Auto) 200 (0-900) /uL Eos # (Auto) 100 (0-450) /uL Baso # (Auto) 100 (0-100) /uL PT (10.1-12.7) SECONDS INR (0.9-1.3) APTT (26-36) SECONDS D-Dimer (<500) ng/ml Sodium 130 L (137-145) mmol/L Potassium 3.6 (3.4-5.1) mmol/L Chloride 101 (98-107) mmol/L Carbon Dioxide 19 L (22-32) mmol/L BUN 2 L (9-20) mg/dL Creatinine 0.28 L (0.66-1.25) mg/dL Estimated GFR > 60 (>60) mL/min BUN/Creatinine Ratio 7.1 (6-22) Glucose 166 H D (70-100) mg/dL Lactate (0.7-2.1) mmol/L Calcium 7.9 L (8.4-10.2) mg/dL Phosphorus (2.5-4.5) mg/dL Magnesium (1.6-2.3) mg/dL Total Bilirubin 0.3 (0.2-1.3) mg/dL AST 14 L (17-59) IU/L ALT 8 (<50) IU/L Alkaline Phosphatase 93 (38-126) U/L Total Protein 6.3 (6.3-8.2) g/dL Albumin 2.9 L (3.5-5.0) g/dL Globulin 3.4 (1.7-4.1) g/dL Albumin/Globulin Ratio 0.9 L (1.0-2.8) Prealbumin (17.6-36.0) mg/dL Triglycerides (35-150) mg/dL Lipase (23-300) U/L Procalcitonin (<0.5) ng/mL Nasal Screen MRSA (PCR) (Not Detect) Stl C. cayetanensis PCR (Not Detect) Stool Rotavirus (PCR) (Not Detect) Stool Adenovirus (PCR) (Not Detect) Stool Astrovirus (PCR) (Not Detect) Stool Cryptosporidium PCR (Not Detect) Stl E.coli Shiga Tox PCR (Not Detect) St Sh/Enteroin Ecoli PCR (Not Detect) Stool E coli O157 PCR Stl Enterotoxigenic E PCR (Not Detect) Stool EPEC (PCR) (Not Detect) Stl E. histolytica PCR (Not Detect) Stool Giardia Lamblia PCR (Not Detect) Stool Sapovirus (PCR) (Not Detect) Stl P. shigelloides PCR (Not Detect) St Y.enterocolitica PCR (Not Detect) Stool Vibrio (PCR) (Not Detect) Stl Vibrio cholerae PCR (Not Detect) Stl Enteroaggr Ecoli PCR (Not Detect) Stl Norovirus GI/GII PCR (Not Detect) Vancomycin Peak (20-40) ug/mL Vancomycin Trough 25.2 H* Chlamy pneumoniae PCR (Not Detect) Adenovirus (PCR) (Not Detect) B. pertussis DNA (PCR) (Not Detecte) B.parapertussis DNA PCR (Not Detecte) Campylobacter (PCR) (Not Detect) C. difficile Tox (PCR) (Not Detect) Coronavirus OC43 (PCR) (Not Detect) Coronavirus HKU1 (PCR) (Not Detect) Coronavirus 229E (PCR) (Not Detect) SARS-CoV-2 (PCR) (Not Detecte) Coronavirus NL63 (PCR) (Not Detect) Human Metapneumovir PCR (Not Detect) Influenza Type A (PCR) (Not Detect) Influenza Type B (PCR) (Not Detect) M. pneumoniae (PCR) (Not Detect) Parainfluenza 1 (PCR) (Not Detect) Parainfluenza 2 (PCR) (Not Detect) Parainfluenza 3 (PCR) (Not Detect) Parainfluenza 4 (PCR) (Not Detect) RSV (PCR) (Not Detect) Entero/Rhino (PCR) (Not Detect) Salmonella (PCR) (Not Detect) 01/06/23 01/06/23 01/06/23 Range/Units 07:50 07:50 12:22 WBC (4.5-11.0) X10^3/uL RBC (4.5-5.9) X10^6/uL Hgb (13.5-17.5) g/dL Hct (41-53) % MCV (80-100) fL MCH (26-34) PG MCHC (30-36) % RDW (11.6-14.8) % Plt Count (150-400) X10^3/uL Neut % (Auto) (50-75) % Lymph % (Auto) (25-40) % Miller % (Auto) (3-14) % Eos % (Auto) (2-4) % Baso % (Auto) (0-2) % Neut # (Auto) (7642-9471) /uL Lymph # (Auto) (6001-7804) /uL Miller # (Auto) (0-900) /uL Eos # (Auto) (0-450) /uL Baso # (Auto) (0-100) /uL PT (10.1-12.7) SECONDS INR (0.9-1.3) APTT (26-36) SECONDS D-Dimer (<500) ng/ml Sodium (137-145) mmol/L Potassium (3.4-5.1) mmol/L Chloride (98-107) mmol/L Carbon Dioxide (22-32) mmol/L BUN (9-20) mg/dL Creatinine (0.66-1.25) mg/dL Estimated GFR (>60) mL/min BUN/Creatinine Ratio (6-22) Glucose (70-100) mg/dL Lactate (0.7-2.1) mmol/L Calcium (8.4-10.2) mg/dL Phosphorus 2.4 L (2.5-4.5) mg/dL Magnesium 1.6 (1.6-2.3) mg/dL Total Bilirubin (0.2-1.3) mg/dL AST (17-59) IU/L ALT (<50) IU/L Alkaline Phosphatase (38-126) U/L Total Protein (6.3-8.2) g/dL Albumin (3.5-5.0) g/dL Globulin (1.7-4.1) g/dL Albumin/Globulin Ratio (1.0-2.8) Prealbumin 3.0 L (17.6-36.0) mg/dL Triglycerides 80 (35-150) mg/dL Lipase (23-300) U/L Procalcitonin 0.11 (<0.5) ng/mL Nasal Screen MRSA (PCR) Detected H (Not Detect) Stl C. cayetanensis PCR (Not Detect) Stool Rotavirus (PCR) (Not Detect) Stool Adenovirus (PCR) (Not Detect) Stool Astrovirus (PCR) (Not Detect) Stool Cryptosporidium PCR (Not Detect) Stl E.coli Shiga Tox PCR (Not Detect) St Sh/Enteroin Ecoli PCR (Not Detect) Stool E coli O157 PCR Stl Enterotoxigenic E PCR (Not Detect) Stool EPEC (PCR) (Not Detect) Stl E. histolytica PCR (Not Detect) Stool Giardia Lamblia PCR (Not Detect) Stool Sapovirus (PCR) (Not Detect) Stl P. shigelloides PCR (Not Detect) St Y.enterocolitica PCR (Not Detect) Stool Vibrio (PCR) (Not Detect) Stl Vibrio cholerae PCR (Not Detect) Stl Enteroaggr Ecoli PCR (Not Detect) Stl Norovirus GI/GII PCR (Not Detect) Vancomycin Peak (20-40) ug/mL Vancomycin Trough Chlamy pneumoniae PCR (Not Detect) Adenovirus (PCR) (Not Detect) B. pertussis DNA (PCR) (Not Detecte) B.parapertussis DNA PCR (Not Detecte) Campylobacter (PCR) (Not Detect) C. difficile Tox (PCR) (Not Detect) Coronavirus OC43 (PCR) (Not Detect) Coronavirus HKU1 (PCR) (Not Detect) Coronavirus 229E (PCR) (Not Detect) SARS-CoV-2 (PCR) (Not Detecte) Coronavirus NL63 (PCR) (Not Detect) Human Metapneumovir PCR (Not Detect) Influenza Type A (PCR) (Not Detect) Influenza Type B (PCR) (Not Detect) M. pneumoniae (PCR) (Not Detect) Parainfluenza 1 (PCR) (Not Detect) Parainfluenza 2 (PCR) (Not Detect) Parainfluenza 3 (PCR) (Not Detect) Parainfluenza 4 (PCR) (Not Detect) RSV (PCR) (Not Detect) Entero/Rhino (PCR) (Not Detect) Salmonella (PCR) (Not Detect) 01/06/23 Range/Units 15:48 WBC (4.5-11.0) X10^3/uL RBC (4.5-5.9) X10^6/uL Hgb (13.5-17.5) g/dL Hct (41-53) % MCV (80-100) fL MCH (26-34) PG MCHC (30-36) % RDW (11.6-14.8) % Plt Count (150-400) X10^3/uL Neut % (Auto) (50-75) % Lymph % (Auto) (25-40) % Miller % (Auto) (3-14) % Eos % (Auto) (2-4) % Baso % (Auto) (0-2) % Neut # (Auto) (0953-8715) /uL Lymph # (Auto) (1836-2554) /uL Miller # (Auto) (0-900) /uL Eos # (Auto) (0-450) /uL Baso # (Auto) (0-100) /uL PT (10.1-12.7) SECONDS INR (0.9-1.3) APTT (26-36) SECONDS D-Dimer (<500) ng/ml Sodium (137-145) mmol/L Potassium (3.4-5.1) mmol/L Chloride (98-107) mmol/L Carbon Dioxide (22-32) mmol/L BUN (9-20) mg/dL Creatinine (0.66-1.25) mg/dL Estimated GFR (>60) mL/min BUN/Creatinine Ratio (6-22) Glucose (70-100) mg/dL Lactate (0.7-2.1) mmol/L Calcium (8.4-10.2) mg/dL Phosphorus (2.5-4.5) mg/dL Magnesium (1.6-2.3) mg/dL Total Bilirubin (0.2-1.3) mg/dL AST (17-59) IU/L ALT (<50) IU/L Alkaline Phosphatase (38-126) U/L Total Protein (6.3-8.2) g/dL Albumin (3.5-5.0) g/dL Globulin (1.7-4.1) g/dL Albumin/Globulin Ratio (1.0-2.8) Prealbumin (17.6-36.0) mg/dL Triglycerides (35-150) mg/dL Lipase (23-300) U/L Procalcitonin (<0.5) ng/mL Nasal Screen MRSA (PCR) (Not Detect) Stl C. cayetanensis PCR Not detected (Not Detect) Stool Rotavirus (PCR) Not detected (Not Detect) Stool Adenovirus (PCR) Not detected (Not Detect) Stool Astrovirus (PCR) Not detected (Not Detect) Stool Cryptosporidium PCR Not detected (Not Detect) Stl E.coli Shiga Tox PCR Not detected (Not Detect) St Sh/Enteroin Ecoli PCR Not detected (Not Detect) Stool E coli O157 PCR Not Reportable Stl Enterotoxigenic E PCR Not detected (Not Detect) Stool EPEC (PCR) Not detected (Not Detect) Stl E. histolytica PCR Not detected (Not Detect) Stool Giardia Lamblia PCR Not detected (Not Detect) Stool Sapovirus (PCR) Not detected (Not Detect) Stl P. shigelloides PCR Not detected (Not Detect) St Y.enterocolitica PCR Not detected (Not Detect) Stool Vibrio (PCR) Not detected (Not Detect) Stl Vibrio cholerae PCR Not detected (Not Detect) Stl Enteroaggr Ecoli PCR Not detected (Not Detect) Stl Norovirus GI/GII PCR Not detected (Not Detect) Vancomycin Peak (20-40) ug/mL Vancomycin Trough Chlamy pneumoniae PCR (Not Detect) Adenovirus (PCR) (Not Detect) B. pertussis DNA (PCR) (Not Detecte) B.parapertussis DNA PCR (Not Detecte) Campylobacter (PCR) Not detected (Not Detect) C. difficile Tox (PCR) Not detected (Not Detect) Coronavirus OC43 (PCR) (Not Detect) Coronavirus HKU1 (PCR) (Not Detect) Coronavirus 229E (PCR) (Not Detect) SARS-CoV-2 (PCR) (Not Detecte) Coronavirus NL63 (PCR) (Not Detect) Human Metapneumovir PCR (Not Detect) Influenza Type A (PCR) (Not Detect) Influenza Type B (PCR) (Not Detect) M. pneumoniae (PCR) (Not Detect) Parainfluenza 1 (PCR) (Not Detect) Parainfluenza 2 (PCR) (Not Detect) Parainfluenza 3 (PCR) (Not Detect) Parainfluenza 4 (PCR) (Not Detect) RSV (PCR) (Not Detect) Entero/Rhino (PCR) (Not Detect) Salmonella (PCR) Not detected (Not Detect) Point of Care Testing Glucose POC 118 Urine Dip Bedside Urine Glucose Negative Bedside Urine Bilirubin - Negative Bedside Urine Ketone - Negative Urine Specific Belpre 1.015 Bedside Urine Occult Blood - Negative Bedside Urine pH 6 Bedside Urine Protein - Negative Bedside Urine Urobilinogen - Negative Bedside Urine Nitrite - Negative Bedside Urine Leukocytes - Negative Esterase Point of care testing: Point of Care Testing Glucose POC 118 Urine Dip Bedside Urine Glucose Negative Bedside Urine Bilirubin - Negative Bedside Urine Ketone - Negative Urine Specific Belpre 1.015 Bedside Urine Occult Blood - Negative Bedside Urine pH 6 Bedside Urine Protein - Negative Bedside Urine Urobilinogen - Negative Bedside Urine Nitrite - Negative Bedside Urine Leukocytes - Negative Esterase MDM Narrative Medical decision making narrative: CC: Increasing dyspnea Complicating co-morbidities: Hemiparesis secondary pediatric glioblastoma, wheelchair-bound, recurrent pneumonias, abnormalities appreciated on chest x-ray with CT scan of the chest anticipated tomorrow Data collected from: patient, mother Social determinants of health that may influence the patients condition: Functional quadriplegia Medical records reviewed: Hospitalized August of 2022 for acute respiratory failure secondary to influenza a and concurrent bacterial pneumonia. Walk-in clinic notes on November 21 with increasing mucus production and again primary care notes December 16 with increasing cough and breathing diagnosed with a left lower lobe pneumonia and treated with azithromycin. Differential considered: Recurrent pneumonia, pulmonary embolism, congestive heart failure, pneumothorax, pleural effusions, sepsis, viral etiology Exam documented above, pertinent findings include: Mild wheezing in all lung matthew with diffuse rhonchi on the left side. Lab Test results independently reviewed as above. Pertinent findings: CBC indicates a white count of 18.5 with left shift and no significant anemia Chemistries are actually relatively reassuring with mild hypoglycemia a glucose 60. D-dimer is elevated greater than 2000 Independently reviewed EKG Sinus tachycardia at a rate of [address] T wave abnormalities without acute ischemia Normal intervals and normal axis Imaging studies independently reviewed: Per radiology dictation Persistent dense retrocardiac opacity and left perihilar infiltrate.? Given volume loss in the left hemithorax, findings are suggestive of left lower lobe atelectasis.? An underlying malignancy should be excluded.? Given the elevated D-dimer,CTA of the chest is ordered rather than plain CT of the chest. CT scan does not demonstrate pulmonary embolism however Ce ntrilobular nodules bilaterally, particularly on the left upper lobe.? Dense consolidation again seen in the left lower lobe, likely with underlying atelectasis.? Moderate left pleural effusion, with pleural enhancement. Treatments: Fluids, IV antibiotics with cefepime and vancomycin and maintenance fluids with dextrose given his slightly low sugar. Discussion: 42-year-old gentleman with functional quadriplegia, chronic bedsore and recurrent left lower lobe pneumonia with concerns for obstructive physiology with persistent left pleural effusion. He was admitted in August with similar findings treated with antibiotics. Was treated with outpatient azithromycin 2 weeks ago continues to have recurrent symptoms and at this point I think he is going to need pulmonary inpatient consultation possible bronchoscopy. To that end have reviewed his case with our hospitalist service. They will consult in the emergency department but will continue to look for bed available at hospital with inpatient pulmonology Infectious Disease consultation available. All of these are reviewed with patient and his mother. Will work on hospital bed, cleaning up his bedsore to make sure that it is not getting worse while we are waiting for inpatient bed and began working on the placement. Dr Perrin: Received turned over. Review patient's history and physical. Patient has been stable throughout the day. Has been receiving antibiotics. At 1 point this afternoon while he was eating he did aspirate his food. He did become hypoxic to the upper 80s during this time but then returned with oxygen. Initial plan was for patient to be transferred to facility that has pulmonology for bronchoscopy given his CT scan findings. No placement has been found today. Care turned over to Dr. Connolly to continue to observe until disposition can be met. <Ladi Connolly, DO - Last Filed: 01/06/23 22:14> Lab Data Labs: Lab Results 01/03/23 01/03/23 01/03/23 Range/Units 20:00 20:00 20:00 WBC 18.5 H (4.5-11.0) X10^3/uL RBC 5.18 (4.5-5.9) X10^6/uL Hgb 13.0 L (13.5-17.5) g/dL Hct 39.9 L (41-53) % MCV 77.1 L (80-100) fL MCH 25.0 L (26-34) PG MCHC 32.5 (30-36) % RDW 14.5 (11.6-14.8) % Plt Count 594 H (150-400) X10^3/uL Neut % (Auto) 85.9 H (50-75) % Lymph % (Auto) 7.2 L (25-40) % Miller % (Auto) 5.9 (3-14) % Eos % (Auto) 0.6 L (2-4) % Baso % (Auto) 0.4 (0-2) % Neut # (Auto) 74250 H (1995-7340) /uL Lymph # (Auto) 1300 (7719-4120) /uL Miller # (Auto) 1100 H (0-900) /uL Eos # (Auto) 100 (0-450) /uL Baso # (Auto) 100 (0-100) /uL PT 17.6 H (10.1-12.7) SECONDS INR 1.5 H (0.9-1.3) APTT 46 H (26-36) SECONDS D-Dimer (<500) ng/ml Sodium 134 L (137-145) mmol/L Potassium 4.8 (3.4-5.1) mmol/L Chloride 97 L (98-107) mmol/L Carbon Dioxide 22 (22-32) mmol/L BUN 8 L (9-20) mg/dL Creatinine 0.41 L (0.66-1.25) mg/dL Estimated GFR > 60 (>60) mL/min BUN/Creatinine Ratio 19.5 (6-22) Glucose 60 L (70-100) mg/dL Lactate (0.7-2.1) mmol/L Calcium 9.4 (8.4-10.2) mg/dL Phosphorus (2.5-4.5) mg/dL Magnesium (1.6-2.3) mg/dL Total Bilirubin 0.8 (0.2-1.3) mg/dL AST 17 (17-59) IU/L ALT 11 (<50) IU/L Alkaline Phosphatase 136 H (38-126) U/L Total Protein 9.0 H (6.3-8.2) g/dL Albumin 4.1 (3.5-5.0) g/dL Globulin 4.9 H (1.7-4.1) g/dL Albumin/Globulin Ratio 0.8 L (1.0-2.8) Prealbumin (17.6-36.0) mg/dL Triglycerides (35-150) mg/dL Lipase 34 (23-300) U/L Procalcitonin 0.12 (<0.5) ng/mL Nasal Screen MRSA (PCR) (Not Detect) Stl C. cayetanensis PCR (Not Detect) Stool Rotavirus (PCR) (Not Detect) Stool Adenovirus (PCR) (Not Detect) Stool Astrovirus (PCR) (Not Detect) Stool Cryptosporidium PCR (Not Detect) Stl E.coli Shiga Tox PCR (Not Detect) St Sh/Enteroin Ecoli PCR (Not Detect) Stool E coli O157 PCR Stl Enterotoxigenic E PCR (Not Detect) Stool EPEC (PCR) (Not Detect) Stl E. histolytica PCR (Not Detect) Stool Giardia Lamblia PCR (Not Detect) Stool Sapovirus (PCR) (Not Detect) Stl P. shigelloides PCR (Not Detect) St Y.enterocolitica PCR (Not Detect) Stool Vibrio (PCR) (Not Detect) Stl Vibrio cholerae PCR (Not Detect) Stl Enteroaggr Ecoli PCR (Not Detect) Stl Norovirus GI/GII PCR (Not Detect) Vancomycin Peak (20-40) ug/mL Vancomycin Trough Chlamy pneumoniae PCR (Not Detect) Adenovirus (PCR) (Not Detect) B. pertussis DNA (PCR) (Not Detecte) B.parapertussis DNA PCR (Not Detecte) Campylobacter (PCR) (Not Detect) C. difficile Tox (PCR) (Not Detect) Coronavirus OC43 (PCR) (Not Detect) Coronavirus HKU1 (PCR) (Not Detect) Coronavirus 229E (PCR) (Not Detect) SARS-CoV-2 (PCR) (Not Detecte) Coronavirus NL63 (PCR) (Not Detect) Human Metapneumovir PCR (Not Detect) Influenza Type A (PCR) (Not Detect) Influenza Type B (PCR) (Not Detect) M. pneumoniae (PCR) (Not Detect) Parainfluenza 1 (PCR) (Not Detect) Parainfluenza 2 (PCR) (Not Detect) Parainfluenza 3 (PCR) (Not Detect) Parainfluenza 4 (PCR) (Not Detect) RSV (PCR) (Not Detect) Entero/Rhino (PCR) (Not Detect) Salmonella (PCR) (Not Detect) 01/03/23 01/03/2301/03/23 Range/Units 20:00 20:00 20:17 WBC (4.5-11.0) X10^3/uL RBC (4.5-5.9) X10^6/uL Hgb (13.5-17.5) g/dL Hct (41-53) % MCV (80-100) fL MCH (26-34) PG MCHC (30-36) % RDW (11.6-14.8) % Plt Count (150-400) X10^3/uL Neut % (Auto) (50-75) % Lymph % (Auto) (25-40) % Miller % (Auto) (3-14) % Eos % (Auto) (2-4) % Baso % (Auto) (0-2) % Neut # (Auto) (3481-8315) /uL Lymph # (Auto) (2213-2457) /uL Miller # (Auto) (0-900) /uL Eos # (Auto) (0-450) /uL Baso # (Auto) (0-100) /uL PT (10.1-12.7) SECONDS INR (0.9-1.3) APTT (26-36) SECONDS D-Dimer 2141 H (<500) ng/ml Sodium (137-145) mmol/L Potassium (3.4-5.1) mmol/L Chloride (98-107) mmol/L Carbon Dioxide (22-32) mmol/L BUN (9-20) mg/dL Creatinine (0.66-1.25) mg/dL Estimated GFR (>60) mL/min BUN/Creatinine Ratio (6-22) Glucose (70-100) mg/dL Lactate 1.5 (0.7-2.1) mmol/L Calcium (8.4-10.2) mg/dL Phosphorus (2.5-4.5) mg/dL Magnesium (1.6-2.3) mg/dL Total Bilirubin (0.2-1.3) mg/dL AST (17-59) IU/L ALT (<50) IU/L Alkaline Phosphatase (38-126) U/L Total Protein (6.3-8.2) g/dL Albumin (3.5-5.0) g/dL Globulin (1.7-4.1) g/dL Albumin/Globulin Ratio (1.0-2.8) Prealbumin (17.6-36.0) mg/dL Triglycerides (35-150) mg/dL Lipase (23-300) U/L Procalcitonin (<0.5) ng/mL Nasal Screen MRSA (PCR) (Not Detect) Stl C. cayetanensis PCR (Not Detect) Stool Rotavirus (PCR) (Not Detect) Stool Adenovirus (PCR) (Not Detect) Stool Astrovirus (PCR) (Not Detect) Stool Cryptosporidium PCR (Not Detect) Stl E.coli Shiga Tox PCR (Not Detect) St Sh/Enteroin Ecoli PCR (Not Detect) Stool E coli O157 PCR Stl Enterotoxigenic E PCR (Not Detect) Stool EPEC (PCR) (Not Detect) Stl E. histolytica PCR (Not Detect) Stool Giardia Lamblia PCR (Not Detect) Stool Sapovirus (PCR) (Not Detect) Stl P. shigelloides PCR (Not Detect) St Y.enterocolitica PCR (Not Detect) Stool Vibrio (PCR) (Not Detect) Stl Vibrio cholerae PCR (Not Detect) Stl Enteroaggr Ecoli PCR (Not Detect) Stl Norovirus GI/GII PCR (Not Detect) Vancomycin Peak (20-40) ug/mL Vancomycin Trough Chlamy pneumoniae PCR Not detected (Not Detect) Adenovirus (PCR) Not detected (Not Detect) B. pertussis DNA (PCR) Not detected (Not Detecte) B.parapertussis DNA PCR Not detected (Not Detecte) Campylobacter (PCR) (Not Detect) C. difficile Tox (PCR) (Not Detect) Coronavirus OC43 (PCR) Not detected (Not Detect) Coronavirus HKU1 (PCR) Not detected (Not Detect) Coronavirus 229E (PCR) Not detected (Not Detect) SARS-CoV-2 (PCR) Not detected (Not Detecte) Coronavirus NL63 (PCR) Not detected (Not Detect) Human Metapneumovir PCR Not detected (Not Detect) Influenza Type A (PCR) Not detected (Not Detect) Influenza Type B (PCR) Not detected (Not Detect) M. pneumoniae (PCR) Not detected (Not Detect) Parainfluenza 1 (PCR) Not detected (Not Detect) Parainfluenza 2 (PCR) Not detected (Not Detect) Parainfluenza 3 (PCR) Not detected (Not Detect) Parainfluenza 4 (PCR) Not detected (Not Detect) RSV (PCR) Not detected (Not Detect) Entero/Rhino (PCR) Not detected (Not Detect) Salmonella (PCR) (Not Detect) 01/04/23 01/04/23 01/04/23 Range/Units 06:33 06:33 19:55 WBC 11.4 H (4.5-11.0) X10^3/uL RBC 4.18 L (4.5-5.9) X10^6/uL Hgb 10.5 L (13.5-17.5) g/dL Hct 32.3 L (41-53) % MCV 77.4 L (80-100) fL MCH 25.2 L (26-34) PG MCHC 32.6 (30-36) % RDW 14.1 (11.6-14.8) % Plt Count 447 H (150-400) X10^3/uL Neut % (Auto) 79.8 H (50-75) % Lymph % (Auto) 10.7 L (25-40) % Miller % (Auto) 6.3 (3-14) % Eos % (Auto) 1.9 L (2-4) % Baso % (Auto) 1.3 (0-2) % Neut # (Auto) 9100 H (6805-5804) /uL Lymph # (Auto) 1200 (2841-8795) /uL Miller # (Auto) 700 (0-900) /uL Eos # (Auto) 200 (0-450) /uL Baso # (Auto) 200 H (0-100) /uL PT (10.1-12.7) SECONDS INR (0.9-1.3) APTT (26-36) SECONDS D-Dimer (<500) ng/ml Sodium 133 L (137-145) mmol/L Potassium 4.0 (3.4-5.1) mmol/L Chloride 101 (98-107) mmol/L Carbon Dioxide 29 (22-32) mmol/L BUN 5 L (9-20) mg/dL Creatinine 0.38 L (0.66-1.25) mg/dL Estimated GFR > 60 (>60) mL/min BUN/Creatinine Ratio 13.2 (6-22) Glucose 90 (70-100) mg/dL Lactate (0.7-2.1) mmol/L Calcium 8.2 L (8.4-10.2) mg/dL Phosphorus (2.5-4.5) mg/dL Magnesium (1.6-2.3) mg/dL Total Bilirubin 0.3 (0.2-1.3) mg/dL AST 14 L (17-59) IU/L ALT 11 (<50) IU/L Alkaline Phosphatase 92 (38-126) U/L Total Protein 7.0 (6.3-8.2) g/dL Albumin 3.1 L (3.5-5.0) g/dL Globulin 3.9 (1.7-4.1) g/dL Albumin/Globulin Ratio 0.8 L (1.0-2.8) Prealbumin (17.6-36.0) mg/dL Triglycerides (35-150) mg/dL Lipase (23-300) U/L Procalcitonin (<0.5) ng/mL Nasal Screen MRSA (PCR) (Not Detect) Stl C. cayetanensis PCR (Not Detect) Stool Rotavirus (PCR) (Not Detect) Stool Adenovirus (PCR) (Not Detect) Stool Astrovirus (PCR) (Not Detect) Stool Cryptosporidium PCR (Not Detect) Stl E.coli Shiga Tox PCR (Not Detect) St Sh/Enteroin Ecoli PCR (Not Detect) Stool E coli O157 PCR Stl Enterotoxigenic E PCR (Not Detect) Stool EPEC (PCR) (Not Detect) Stl E. histolytica PCR (Not Detect) Stool Giardia Lamblia PCR (Not Detect) Stool Sapovirus (PCR) (Not Detect) Stl P. shigelloides PCR (Not Detect) St Y.enterocolitica PCR (Not Detect) Stool Vibrio (PCR) (Not Detect) Stl Vibrio cholerae PCR (Not Detect) Stl Enteroaggr Ecoli PCR (Not Detect) Stl Norovirus GI/GII PCR (Not Detect) Vancomycin Peak (20-40) ug/mL Vancomycin Trough Cancelled Chlamy pneumoniae PCR (Not Detect) Adenovirus (PCR) (Not Detect) B. pertussis DNA (PCR) (Not Detecte) B.parapertussis DNA PCR (Not Detecte) Campylobacter (PCR) (Not Detect) C. difficile Tox (PCR) (Not Detect) Coronavirus OC43 (PCR) (Not Detect) Coronavirus HKU1 (PCR) (Not Detect) Coronavirus 229E (PCR) (Not Detect) SARS-CoV-2 (PCR) (Not Detecte) Coronavirus NL63 (PCR) (Not Detect) Human Metapneumovir PCR (Not Detect) Influenza Type A (PCR) (Not Detect) Influenza Type B (PCR) (Not Detect) M. pneumoniae (PCR) (Not Detect) Parainfluenza 1 (PCR) (Not Detect) Parainfluenza 2 (PCR) (Not Detect) Parainfluenza 3 (PCR) (Not Detect) Parainfluenza 4 (PCR) (Not Detect) RSV (PCR) (Not Detect) Entero/Rhino (PCR) (Not Detect) Salmonella (PCR) (Not Detect) 01/04/23 01/05/23 01/05/23 Range/Units 22:03 06:40 06:40 WBC 10.5 (4.5-11.0) X10^3/uL RBC 4.65 (4.5-5.9) X10^6/uL Hgb 11.7 L (13.5-17.5) g/dL Hct 36.1 L (41-53) % MCV 77.7 L (80-100) fL MCH 25.1 L (26-34) PG MCHC 32.3 (30-36) % RDW 14.7 (11.6-14.8) % Plt Count 430 H (150-400) X10^3/uL Neut % (Auto) 78.4 H (50-75) % Lymph % (Auto) 10.6 L (25-40) % Miller % (Auto) 6.3 (3-14) % Eos % (Auto) 3.8 (2-4) % Baso % (Auto) 0.9 (0-2) % Neut # (Auto) 8200 H (1410-8275) /uL Lymph # (Auto) 1100 (7361-0084) /uL Miller # (Auto) 700 (0-900) /uL Eos # (Auto) 400 (0-450) /uL Baso # (Auto) 100 (0-100) /uL PT (10.1-12.7) SECONDS INR (0.9-1.3) APTT (26-36) SECONDS D-Dimer (<500) ng/ml Sodium 133 L (137-145) mmol/L Potassium 4.2 (3.4-5.1) mmol/L Chloride 104 (98-107) mmol/L Carbon Dioxide 23 (22-32) mmol/L BUN 3 L (9-20) mg/dL Creatinine 0.37 L (0.66-1.25) mg/dL Estimated GFR > 60 (>60) mL/min BUN/Creatinine Ratio 8.1 (6-22) Glucose 55 L (70-100) mg/dL Lactate (0.7-2.1) mmol/L Calcium 8.4 (8.4-10.2) mg/dL Phosphorus (2.5-4.5) mg/dL Magnesium (1.6-2.3) mg/dL Total Bilirubin 0.5 (0.2-1.3) mg/dL AST 14 L (17-59) IU/L ALT 8 (<50) IU/L Alkaline Phosphatase 102 (38-126) U/L Total Protein 7.3 (6.3-8.2) g/dL Albumin 3.4 L (3.5-5.0) g/dL Globulin 3.9 (1.7-4.1) g/dL Albumin/Globulin Ratio 0.9 L (1.0-2.8) Prealbumin (17.6-36.0) mg/dL Triglycerides (35-150) mg/dL Lipase (23-300) U/L Procalcitonin (<0.5) ng/mL Nasal Screen MRSA (PCR) (Not Detect) Stl C. cayetanensis PCR (Not Detect) Stool Rotavirus (PCR) (Not Detect) Stool Adenovirus (PCR) (Not Detect) Stool Astrovirus (PCR) (Not Detect) Stool Cryptosporidium PCR (Not Detect) Stl E.coli Shiga Tox PCR (Not Detect) St Sh/Enteroin Ecoli PCR (Not Detect) Stool E coli O157 PCR Stl Enterotoxigenic E PCR (Not Detect) Stool EPEC (PCR) (Not Detect) Stl E. histolytica PCR (Not Detect) Stool Giardia Lamblia PCR (Not Detect) Stool Sapovirus (PCR) (Not Detect) Stl P. shigelloides PCR (Not Detect) St Y.enterocolitica PCR (Not Detect) Stool Vibrio (PCR) (Not Detect) Stl Vibrio cholerae PCR (Not Detect) Stl Enteroaggr Ecoli PCR (Not Detect) Stl Norovirus GI/GII PCR (Not Detect) Vancomycin Peak 32.4 (20-40) ug/mL Vancomycin Trough Chlamy pneumoniae PCR (Not Detect) Adenovirus (PCR) (Not Detect) B. pertussis DNA (PCR) (Not Detecte) B.parapertussis DNA PCR (Not Detecte) Campylobacter (PCR) (Not Detect) C. difficile Tox (PCR) (Not Detect) Coronavirus OC43 (PCR) (Not Detect) Coronavirus HKU1 (PCR) (Not Detect) Coronavirus 229E (PCR) (Not Detect) SARS-CoV-2 (PCR) (Not Detecte) Coronavirus NL63 (PCR) (Not Detect) Human Metapneumovir PCR (Not Detect) Influenza Type A (PCR) (Not Detect) Influenza Type B (PCR) (Not Detect) M. pneumoniae (PCR) (Not Detect) Parainfluenza 1 (PCR) (Not Detect) Parainfluenza 2 (PCR) (Not Detect) Parainfluenza 3 (PCR) (Not Detect) Parainfluenza 4 (PCR) (Not Detect) RSV (PCR) (Not Detect) Entero/Rhino (PCR) (Not Detect) Salmonella (PCR) (Not Detect) 01/05/23 01/06/23 01/06/23 Range/Units 12:18 07:50 07:50 WBC 10.8 (4.5-11.0) X10^3/uL RBC 4.33 L (4.5-5.9) X10^6/uL Hgb 10.8 L (13.5-17.5) g/dL Hct 33.2 L (41-53) % MCV 76.7 L (80-100) fL MCH 25.0 L (26-34) PG MCHC 32.6 (30-36) % RDW 14.5 (11.6-14.8) % Plt Count 366 (150-400) X10^3/uL Neut % (Auto) 90.2 H (50-75) % Lymph % (Auto) 6.1 L (25-40) % Miller % (Auto) 1.9 L (3-14) % Eos % (Auto) 1.2 L (2-4) % Baso % (Auto) 0.6 (0-2) % Neut # (Auto) 9700 H (8631-3255) /uL Lymph # (Auto) 700 L (8059-3694) /uL Miller # (Auto) 200 (0-900) /uL Eos # (Auto) 100 (0-450) /uL Baso # (Auto) 100 (0-100) /uL PT (10.1-12.7) SECONDS INR (0.9-1.3) APTT (26-36) SECONDS D-Dimer (<500) ng/ml Sodium 130 L (137-145) mmol/L Potassium 3.6 (3.4-5.1) mmol/L Chloride 101 (98-107) mmol/L Carbon Dioxide 19 L (22-32) mmol/L BUN 2 L (9-20) mg/dL Creatinine 0.28 L (0.66-1.25) mg/dL Estimated GFR > 60 (>60) mL/min BUN/Creatinine Ratio 7.1 (6-22) Glucose 166 H D (70-100) mg/dL Lactate (0.7-2.1) mmol/L Calcium 7.9 L (8.4-10.2) mg/dL Phosphorus (2.5-4.5) mg/dL Magnesium (1.6-2.3) mg/dL Total Bilirubin 0.3 (0.2-1.3) mg/dL AST 14 L (17-59) IU/L ALT 8 (<50) IU/L Alkaline Phosphatase 93 (38-126) U/L Total Protein 6.3 (6.3-8.2) g/dL Albumin 2.9 L (3.5-5.0) g/dL Globulin 3.4 (1.7-4.1) g/dL Albumin/Globulin Ratio 0.9 L (1.0-2.8) Prealbumin (17.6-36.0) mg/dL Triglycerides (35-150) mg/dL Lipase (23-300) U/L Procalcitonin (<0.5) ng/mL Nasal Screen MRSA (PCR) (Not Detect) Stl C. cayetanensis PCR (Not Detect) Stool Rotavirus (PCR) (Not Detect) Stool Adenovirus (PCR) (Not Detect) Stool Astrovirus (PCR) (Not Detect) Stool Cryptosporidium PCR (Not Detect) Stl E.coli Shiga Tox PCR (Not Detect) St Sh/Enteroin Ecoli PCR (Not Detect) Stool E coli O157 PCR Stl Enterotoxigenic E PCR (Not Detect) Stool EPEC (PCR) (Not Detect) Stl E. histolytica PCR (Not Detect) Stool Giardia Lamblia PCR (Not Detect) Stool Sapovirus (PCR) (Not Detect) Stl P. shigelloides PCR (Not Detect) St Y.enterocolitica PCR (Not Detect) Stool Vibrio (PCR) (Not Detect) Stl Vibrio cholerae PCR (Not Detect) Stl Enteroaggr Ecoli PCR (Not Detect) Stl Norovirus GI/GII PCR (Not Detect) Vancomycin Peak (20-40) ug/mL Vancomycin Trough 25.2 H* Chlamy pneumoniae PCR (Not Detect) Adenovirus (PCR) (Not Detect) B. pertussis DNA (PCR) (Not Detecte) B.parapertussis DNA PCR (Not Detecte) Campylobacter (PCR) (Not Detect) C. difficile Tox (PCR) (Not Detect) Coronavirus OC43 (PCR) (Not Detect) Coronavirus HKU1 (PCR) (Not Detect) Coronavirus 229E (PCR) (Not Detect) SARS-CoV-2 (PCR) (Not Detecte) Coronavirus NL63 (PCR) (Not Detect) Human Metapneumovir PCR (Not Detect) Influenza Type A (PCR) (Not Detect) Influenza Type B (PCR) (Not Detect) M. pneumoniae (PCR) (Not Detect) Parainfluenza 1 (PCR) (Not Detect) Parainfluenza 2 (PCR) (Not Detect) Parainfluenza 3 (PCR) (Not Detect) Parainfluenza 4 (PCR) (Not Detect) RSV (PCR) (Not Detect) Entero/Rhino (PCR) (Not Detect) Salmonella (PCR) (Not Detect) 01/06/23 01/06/23 01/06/23 Range/Units 07:50 07:50 12:22 WBC (4.5-11.0) X10^3/uL RBC (4.5-5.9) X10^6/uL Hgb (13.5-17.5) g/dL Hct (41-53) % MCV (80-100) fL MCH (26-34) PG MCHC (30-36) % RDW (11.6-14.8) % Plt Count (150-400) X10^3/uL Neut % (Auto) (50-75) % Lymph % (Auto) (25-40) % Miller % (Auto) (3-14) % Eos % (Auto) (2-4) % Baso % (Auto) (0-2) % Neut # (Auto) (0012-9196) /uL Lymph # (Auto) (7074-0052) /uL Miller # (Auto) (0-900) /uL Eos # (Auto) (0-450) /uL Baso # (Auto) (0-100) /uL PT (10.1-12.7) SECONDS INR (0.9-1.3) APTT (26-36) SECONDS D-Dimer (<500) ng/ml Sodium (137-145) mmol/L Potassium (3.4-5.1) mmol/L Chloride (98-107) mmol/L Carbon Dioxide (22-32) mmol/L BUN (9-20) mg/dL Creatinine (0.66-1.25) mg/dL Estimated GFR (>60) mL/min BUN/Creatinine Ratio (6-22) Glucose (70-100) mg/dL Lactate (0.7-2.1) mmol/L Calcium (8.4-10.2) mg/dL Phosphorus 2.4 L (2.5-4.5) mg/dL Magnesium 1.6 (1.6-2.3) mg/dL Total Bilirubin (0.2-1.3) mg/dL AST (17-59) IU/L ALT (<50) IU/L Alkaline Phosphatase (38-126) U/L Total Protein (6.3-8.2) g/dL Albumin (3.5-5.0) g/dL Globulin (1.7-4.1) g/dL Albumin/Globulin Ratio (1.0-2.8) Prealbumin 3.0 L (17.6-36.0) mg/dL Triglycerides 80 (35-150) mg/dL Lipase (23-300) U/L Procalcitonin 0.11 (<0.5) ng/mL Nasal Screen MRSA (PCR) Detected H (Not Detect) Stl C. cayetanensis PCR (Not Detect) Stool Rotavirus (PCR) (Not Detect) Stool Adenovirus (PCR) (Not Detect) Stool Astrovirus (PCR) (Not Detect) Stool Cryptosporidium PCR (Not Detect) Stl E.coli Shiga Tox PCR (Not Detect) St Sh/Enteroin Ecoli PCR (Not Detect) Stool E coli O157 PCR Stl Enterotoxigenic E PCR (Not Detect) Stool EPEC (PCR) (Not Detect) Stl E. histolytica PCR (Not Detect) Stool Giardia Lamblia PCR (Not Detect) Stool Sapovirus (PCR) (Not Detect) Stl P. shigelloides PCR (Not Detect) St Y.enterocolitica PCR (Not Detect) Stool Vibrio (PCR) (Not Detect) Stl Vibrio cholerae PCR (Not Detect) Stl Enteroaggr Ecoli PCR (Not Detect) Stl Norovirus GI/GII PCR (Not Detect) Vancomycin Peak (20-40) ug/mL Vancomycin Trough Chlamy pneumoniae PCR (Not Detect) Adenovirus (PCR) (Not Detect) B. pertussis DNA (PCR) (Not Detecte) B.parapertussis DNA PCR (Not Detecte) Campylobacter (PCR) (Not Detect) C. difficile Tox (PCR) (Not Detect) Coronavirus OC43 (PCR) (Not Detect) Coronavirus HKU1 (PCR) (Not Detect) Coronavirus 229E (PCR) (Not Detect) SARS-CoV-2 (PCR) (Not Detecte) Coronavirus NL63 (PCR) (Not Detect) Human Metapneumovir PCR (Not Detect) Influenza Type A (PCR) (Not Detect) Influenza Type B (PCR) (Not Detect) M. pneumoniae (PCR) (Not Detect) Parainfluenza 1 (PCR) (Not Detect) Parainfluenza 2 (PCR) (Not Detect) Parainfluenza 3 (PCR) (Not Detect) Parainfluenza 4 (PCR) (Not Detect) RSV (PCR) (Not Detect) Entero/Rhino (PCR) (Not Detect) Salmonella (PCR) (Not Detect) 01/06/23 Range/Units 15:48 WBC (4.5-11.0) X10^3/uL RBC (4.5-5.9) X10^6/uL Hgb (13.5-17.5) g/dL Hct (41-53) % MCV (80-100) fL MCH (26-34) PG MCHC (30-36) % RDW (11.6-14.8) % Plt Count (150-400) X10^3/uL Neut % (Auto) (50-75) % Lymph % (Auto) (25-40) % Miller % (Auto) (3-14) % Eos % (Auto) (2-4) % Baso % (Auto) (0-2) % Neut # (Auto) (5026-6623) /uL Lymph # (Auto) (9097-9946) /uL Miller # (Auto) (0-900) /uL Eos # (Auto) (0-450) /uL Baso # (Auto) (0-100) /uL PT (10.1-12.7) SECONDS INR (0.9-1.3) APTT (26-36) SECONDS D-Dimer (<500) ng/ml Sodium (137-145) mmol/L Potassium (3.4-5.1) mmol/L Chloride (98-107) mmol/L Carbon Dioxide (22-32) mmol/L BUN (9-20) mg/dL Creatinine (0.66-1.25) mg/dL Estimated GFR (>60) mL/min BUN/Creatinine Ratio (6-22) Glucose (70-100) mg/dL Lactate (0.7-2.1) mmol/L Calcium (8.4-10.2) mg/dL Phosphorus (2.5-4.5) mg/dL Magnesium (1.6-2.3) mg/dL Total Bilirubin (0.2-1.3) mg/dL AST (17-59) IU/L ALT (<50) IU/L Alkaline Phosphatase (38-126) U/L Total Protein (6.3-8.2) g/dL Albumin (3.5-5.0) g/dL Globulin (1.7-4.1) g/dL Albumin/Globulin Ratio (1.0-2.8) Prealbumin (17.6-36.0) mg/dL Triglycerides (35-150) mg/dL Lipase (23-300) U/L Procalcitonin (<0.5) ng/mL Nasal Screen MRSA (PCR) (Not Detect) Stl C. cayetanensis PCR Not detected (Not Detect) Stool Rotavirus (PCR) Not detected (Not Detect) Stool Adenovirus (PCR) Not detected (Not Detect) Stool Astrovirus (PCR) Not detected (Not Detect) Stool Cryptosporidium PCR Not detected (Not Detect) Stl E.coli Shiga Tox PCR Not detected (Not Detect) St Sh/Enteroin Ecoli PCR Not detected (Not Detect) Stool E coli O157 PCR Not Reportable Stl Enterotoxigenic E PCR Not detected (Not Detect) Stool EPEC (PCR) Not detected (Not Detect) Stl E. histolytica PCR Not detected (Not Detect) Stool Giardia Lamblia PCR Not detected (Not Detect) Stool Sapovirus (PCR) Not detected (Not Detect) Stl P. shigelloides PCR Not detected (Not Detect) St Y.enterocolitica PCR Not detected (Not Detect) Stool Vibrio (PCR) Not detected (Not Detect) Stl Vibrio cholerae PCR Not detected (Not Detect) Stl Enteroaggr Ecoli PCR Not detected (Not Detect) Stl Norovirus GI/GII PCR Not detected (Not Detect) Vancomycin Peak (20-40) ug/mL Vancomycin Trough Chlamy pneumoniae PCR (Not Detect) Adenovirus (PCR) (Not Detect) B. pertussis DNA (PCR) (Not Detecte) B.parapertussis DNA PCR (Not Detecte) Campylobacter (PCR) Not detected (Not Detect) C. difficile Tox (PCR) Not detected (Not Detect) Coronavirus OC43 (PCR) (Not Detect) Coronavirus HKU1 (PCR) (Not Detect) Coronavirus 229E (PCR) (Not Detect) SARS-CoV-2 (PCR) (Not Detecte) Coronavirus NL63 (PCR) (Not Detect) Human Metapneumovir PCR (Not Detect) Influenza Type A (PCR) (Not Detect) Influenza Type B (PCR) (Not Detect) M. pneumoniae (PCR) (Not Detect) Parainfluenza 1 (PCR) (Not Detect) Parainfluenza 2 (PCR) (Not Detect) Parainfluenza 3 (PCR) (Not Detect) Parainfluenza 4 (PCR) (Not Detect) RSV (PCR) (Not Detect) Entero/Rhino (PCR) (Not Detect) Salmonella (PCR) Not detected (Not Detect) Point of Care Testing Glucose POC 118 Urine Dip Bedside Urine Glucose Negative Bedside Urine Bilirubin - Negative Bedside Urine Ketone - Negative Urine Specific [place] 1.015 Bedside Urine Occult Blood - Negative Bedside Urine pH 6 Bedside Urine Protein - Negative Bedside Urine Urobilinogen - Negative Bedside Urine Nitrite - Negative Bedside Urine Leukocytes - Negative Esterase Point of care testing: Point of Care Testing Glucose POC 118 Urine Dip Bedside Urine Glucose Negative Bedside Urine Bilirubin - Negative Bedside Urine Ketone - Negative Urine Specific Belpre 1.015 Bedside Urine Occult Blood - Negative Bedside Urine pH 6 Bedside Urine Protein - Negative Bedside Urine Urobilinogen - Negative Bedside Urine Nitrite - Negative Bedside Urine Leukocytes - Negative Esterase Imaging Data Chest x-ray: Radiologist's Impression: PROCEDURE:? XR CHEST 1V ? INDICATIONS:? suspected sepsis ? TECHNIQUE:? One view of the chest was acquired.? ? COMPARISON:? [facility], , XR CHEST 2V, 12/28/2022, 16:25. ? FINDINGS:? ? Surgical changes and devices:? None.? ? Lungs and pleura:? Dense retrocardiac opacity and left perihilar interstitial opacities.? There is blunting the left costophrenic sulcus laterally and overall left hemithorax volume loss. ? Mediastinum:? Leftward shift of mediastinal structures.? Normal heart size and no central venous congestion. ? Bones and chest wall:? No suspicious bony lesions.? Overlying soft tissues appear unremarkable.? ? IMPRESSION:? ? 1. Persistent dense retrocardiac opacity and left perihilar infiltrate.? Given volume loss in the left hemithorax, findings are suggestive of left lower lobe atelectasis.? An underlying malignancy should be excluded.? Routine chest CT with contrast is recommended. ? ? ? Dictated by: Vicky King M.D. on 01/03/2023 at 20:51 CT scan - chest: Radiologist's Impression: PROCEDURE:? CT ANGIO CHEST PE PROTOCOL ? INDICATIONS:? cough fever adn + d dimer ? TECHNIQUE:? After the administration of intravenous contrast, 2 mm thick sections acquired from the pulmonary apices to the posterior costophrenic angles.? 3-dimensional maximum intensity projection (MIP) coronal and sagittal reformats were then acquired through the thorax.? For radiation dose reduction, the following was used:? automated exposure control, adjustment of mA and/or kV according to patient size.? ? COMPARISON:? [facility], CT, CT ANGIO CHEST PE PROTOCOL, 08/30/2022, 0:19. ? FINDINGS:? Image quality:? Good ? Lungs and pleura:? Centrilobular nodules bilaterally, particularly on the left upper lobe.? Dense consolidation again seen in the left lower lobe, likely with underlying atelectasis.? Moderate left pleural effusion, with pleural enhancement. ? Mediastinum, heart, and esophagus:? No acute pulmonary embolism. ? Occlusion of the left-sided bronchi.? No hiatal hernia.? No pathologic adenopathy by size criteria.? Small pericardial effusion. ? Chest wall and thyroid:? Multiple thyroid nodules again seen. ? Upper abdomen:? Unremarkable on these limited arterial phase images.? Possible cholelithiasis. ? Bones:? No acute or suspicious osseous finding. ? IMPRESSION:? No acute pulmonary embolism.? Bilateral infectious/inflammatory pulmonary nodules.? Consolidation and likely atelectasis is seen in the left lower lobe, with upstream bronchial occlusion.? There is also an enhancing moderate left pleural effusion. ?Findings are likely infectious/inflammatory.? The left lower lobe finding is in the same position as August of 2022, consider also pulmonary consultation for possible bronchoscopy if indicated.? Otherwise, surveillance imaging could also be obtained. ? ? Dictated by: Dequan Shin M.D. on 01/03/2023 at 22:52 ? ? Approved by: Dequan Shin M.D. on 01/03/2023 at 22:56? MDM Narrative Medical decision making narrative: CC: Increasing dyspnea Complicating co-morbidities: Hemiparesis secondary pediatric glioblastoma, wheelchair-bound, recurrent pneumonias, abnormalities appreciated on chest x-ray with CT scan of the chest anticipated tomorrow Data collected from: patient, mother Social determinants of health that may influence the patients condition: Functional quadriplegia Medical records reviewed: Hospitalized August of 2022 for acute respiratory failure secondary to influenza a and concurrent bacterial pneumonia. Walk-in clinic notes on November 21 with increasing mucus production and again primary care notes December 16 with increasing cough and breathing diagnosed with a left lower lobe pneumonia and treated with azithromycin. Differential considered: Recurrent pneumonia, pulmonary embolism, congestive heart failure, pneumothorax, pleural effusions, sepsis, viral etiology Exam documented above, pertinent findings include: Mild wheezing in all lung matthew with diffuse rhonchi on the left side. Lab Test results independently reviewed as above. Pertinent findings: CBC indicates a white count of 18.5 with left shift and no significant anemia Chemistries are actually relatively reassuring with mild hypoglycemia a glucose 60. D-dimer is elevated greater than 2000 Independently reviewed EKG Sinus tachycardia at a rate of [address] T wave abnormalities without acute ischemia Normal intervals and normal axis Imaging studies independently reviewed: Per radiology dictation Persistent dense retrocardiac opacity and left perihilar infiltrate.? Given volume loss in the left hemithorax, findings are suggestive of left lower lobe atelectasis.? An underlying malignancy should be excluded.? Given the elevated D-dimer,CTA of the chest is ordered rather than plain CT of the chest. CT scan does not demonstrate pulmonary embolism however Centrilobular nodules bilaterally, particularly on the left upper lobe.? Dense consolidation again seen in the left lower lobe, likely with underlying atelectasis.? Moderate left pleural effusion, with pleural enhancement. Treatments: Fluids, IV antibiotics with cefepime and vancomycin and maintenance fluids with dextrose given his slightly low sugar. Discussion: 42-year-old gentleman with functional quadriplegia, chronic bedsore and recurrent left lower lobe pneumonia with concerns for obstructive physiology with persistent left pleural effusion. He was admitted in August with similar findings treated with antibiotics. Was treated with outpatient azithromycin 2 weeks ago continues to have recurrent symptoms and at this point I think he is going to need pulmonary inpatient consultation possible bronchosc opy. To that end have reviewed his case with our hospitalist service. They will consult in the emergency department but will continue to look for bed available at hospital with inpatient pulmonology Infectious Disease consultation available. All of these are reviewed with patient and his mother. Will work on hospital bed, cleaning up his bedsore to make sure that it is not getting worse while we are waiting for inpatient bed and began working on the placement. Dr Perrin: Received turned over. Review patient's history and physical. Patient has been stable throughout the day. Has been receiving antibiotics. At 1 point this afternoon while he was eating he did aspirate his food. He did become hypoxic to the upper 80s during this time but then returned with oxygen. Initial plan was for patient to be transferred to facility that has pulmonology for bronchoscopy given his CT scan findings. No placement has been found today. Care turned over to Dr. Connolly to continue to observe until disposition can be met. Dr. Connolly: Patient signed out to me by Dr. Perrin. Awaiting placement for bronchoscopy. Concern for obstructive left lower lobe pneumonia with persistent left pleural effusion. No evidence of sepsis. Patient continues to be on multiple list. He was mildly hypoxic earlier in the day but appears to be on room air now. Pulmonology was consulted yesterday by the hospitalist who agrees with higher level of care and need for bronchoscopy. Patient signed out to Dr. Llamas. 01/05/231944 Dr. Connolly-patient signed out to me by Dr. Connolly of seen evaluated patient myself. He apparently heating turned became hypoxic requiring non-rebreather. Respiratory attempted deep suctioning they did get up some. However he is still having some respiratory distress. He has definitely crackles and decreased breath sounds more on the right than left. Discussion w ith mom and patient patient is a full code and is okay with intubation. Previously been intubated for aspiration pneumonia in the past. He has been NPO since yesterday. White count today is improving, electrolytes are stable. Patient is re-examined after suctioning he actually did improve quite a bit but still requiring oxygen. PICC line placed for possible TPN speech evaluation and consultations placed for tomorrow. Still likely needs a bronchoscopy. Patient signed out to Dr. Harrell <Bassam Llamas MD - Last Filed: 01/18/23 12:07> Lab Data Labs: Lab Results 01/03/23 01/03/23 01/03/23 Range/Units 20:00 20:00 20:00 WBC 18.5 H (4.5-11.0) X10^3/uL RBC 5.18 (4.5-5.9) X10^6/uL Hgb 13.0 L (13.5-17.5) g/dL Hct 39.9 L (41-53) % MCV 77.1 L (80-100) fL MCH 25.0 L (26-34) PG MCHC 32.5 (30-36) % RDW 14.5 (11.6-14.8) % Plt Count 594 H (150-400) X10^3/uL Neut % (Auto) 85.9 H (50-75) % Lymph % (Auto) 7.2 L (25-40) % Miller % (Auto) 5.9 (3-14) % Eos % (Auto) 0.6 L (2-4) % Baso % (Auto) 0.4 (0-2) % Neut # (Auto) 72447 H (2164-4360) /uL Lymph # (Auto) 1300 (6541-4056) /uL Miller # (Auto) 1100 H (0-900) /uL Eos # (Auto) 100 (0-450) /uL Baso # (Auto) 100 (0-100) /uL PT 17.6 H (10.1-12.7) SECONDS INR 1.5 H (0.9-1.3) APTT 46 H (26-36) SECONDS D-Dimer (<500) ng/ml Sodium 134 L (137-145) mmol/L Potassium 4.8 (3.4-5.1) mmol/L Chloride 97 L (98-107) mmol/L Carbon Dioxide 22 (22-32) mmol/L BUN 8 L (9-20) mg/dL Creatinine 0.41 L (0.66-1.25) mg/dL Estimated GFR > 60 (>60) mL/min BUN/Creatinine Ratio 19.5 (6-22) Glucose 60 L (70-100) mg/dL Lactate (0.7-2.1) mmol/L Calcium 9.4 (8.4-10.2) mg/dL Phosphorus (2.5-4.5) mg/dL Magnesium (1.6-2.3) mg/dL Total Bilirubin 0.8 (0.2-1.3) mg/dL AST 17 (17-59) IU/L ALT 11 (<50) IU/L Alkaline Phosphatase 136 H (38-126) U/L Total Protein 9.0 H (6.3-8.2) g/dL Albumin 4.1 (3.5-5.0) g/dL Globulin 4.9 H (1.7-4.1) g/dL Albumin/Globulin Ratio 0.8 L (1.0-2.8) Prealbumin (17.6-36.0) mg/dL Triglycerides (35-150) mg/dL Lipase 34 (23-300) U/L Procalcitonin 0.12 (<0.5) ng/mL Nasal Screen MRSA (PCR) (Not Detect) Stl C. cayetanensis PCR (Not Detect) Stool Rotavirus (PCR) (Not Detect) Stool Adenovirus (PCR) (Not Detect) Stool Astrovirus (PCR) (Not Detect) Stool Cryptosporidium PCR (Not Detect) Stl E.coli Shiga Tox PCR (Not Detect) St Sh/Enteroin Ecoli PCR (Not Detect) Stool E coli O157 PCR Stl Enterotoxigenic E PCR (Not Detect) Stool EPEC (PCR) (Not Detect) Stl E. histolytica PCR (Not Detect) Stool Giardia Lamblia PCR (Not Detect) Stool Sapovirus (PCR) (Not Detect) Stl P. shigelloides PCR (Not Detect) St Y.enterocolitica PCR (Not Detect) Stool Vibrio (PCR) (Not Detect) Stl Vibrio cholerae PCR (Not Detect) Stl Enteroaggr Ecoli PCR (Not Detect) Stl Norovirus GI/GII PCR (Not Detect) Vancomycin Peak (20-40) ug/mL Vancomycin Trough Chlamy pneumoniae PCR (Not Detect) Adenovirus (PCR) (Not Detect) B. pertussis DNA (PCR) (Not Detecte) B.parapertussis DNA PCR (Not Detecte) Campylobacter (PCR) (Not Detect) C. difficile Tox (PCR) (Not Detect) Coronavirus OC43 (PCR) (Not Detect) Coronavirus HKU1 (PCR) (Not Detect) Coronavirus 229E (PCR) (Not Detect) SARS-CoV-2 (PCR) (Not Detecte) Coronavirus NL63 (PCR) (Not Detect) Human Metapneumovir PCR (Not Detect) Influenza Type A (PCR) (Not Detect) Influenza Type B (PCR) (Not Detect) M. pneumoniae (PCR) (Not Detect) Parainfluenza 1 (PCR) (Not Detect) Parainfluenza 2 (PCR) (Not Detect) Parainfluenza 3 (PCR) (Not Detect) Parainfluenza 4 (PCR) (Not Detect) RSV (PCR) (Not Detect) Entero/Rhino (PCR) (Not Detect) Salmonella (PCR) (Not Detect) 01/03/23 01/03/23 01/03/23 Range/Units 20:00 20:00 20:17 WBC (4.5-11.0) X10^3/uL RBC (4.5-5.9) X10^6/uL Hgb (13.5-17.5) g/dL Hct (41-53) % MCV (80-100) fL MCH (26-34) PG MCHC (30-36) % RDW (11.6-14.8) % Plt Count (150-400) X10^3/uL Neut % (Auto) (50-75) % Lymph % (Auto) (25-40) % Miller % (Auto) (3-14) % Eos % (Auto) (2-4) % Baso % (Auto) (0-2) % Neut # (Auto) (3974-3716) /uL Lymph # (Auto) (1716-9957) /uL Miller # (Auto) (0-900) /uL Eos # (Auto) (0-450) /uL Baso # (Auto) (0-100) /uL PT (10.1-12.7) SECONDS INR (0.9-1.3) APTT (26-36) SECONDS D-Dimer 2141 H (<500) ng/ml Sodium (137-145) mmol/L Potassium (3.4-5.1) mmol/L Chloride (98-107) mmol/L Carbon Dioxide (22-32) mmol/L BUN (9-20) mg/dL Creatinine (0.66-1.25) mg/dL Estimated GFR (>60) mL/min BUN/Creatinine Ratio (6-22) Glucose (70-100) mg/dL Lactate 1.5 (0.7-2.1) mmol/L Calcium (8.4-10.2) mg/dL Phosphorus (2.5-4.5) mg/dL Magnesium (1.6-2.3) mg/dL Total Bilirubin (0.2-1.3) mg/dL AST (17-59) IU/L ALT (<50) IU/L Alkaline Phosphatase (38-126) U/L Total Protein (6.3-8.2) g/dL Albumin (3.5-5.0) g/dL Globulin (1.7-4.1) g/dL Albumin/Globulin Ratio (1.0-2.8) Prealbumin (17.6-36.0) mg/dL Triglycerides (35-150) mg/dL Lipase (23-300) U/L Procalcitonin (<0.5) ng/mL Nasal Screen MRSA (PCR) (Not Detect) Stl C. cayetanensis PCR (Not Detect) Stool Rotavirus (PCR) (Not Detect) Stool Adenovirus (PCR) (Not Detect) Stool Astrovirus (PCR) (Not Detect) Stool Cryptosporidium PCR (Not Detect) Stl E.coli Shiga Tox PCR (Not Detect) St Sh/Enteroin Ecoli PCR (Not Detect) Stool E coli O157 PCR Stl Enterotoxigenic E PCR (Not Detect) Stool EPEC (PCR) (Not Detect) Stl E. histolytica PCR (Not Detect) Stool Giardia Lamblia PCR (Not Detect) Stool Sapovirus (PCR) (Not Detect) Stl P. shigelloides PCR (Not Detect) St Y.enterocolitica PCR (Not Detect) Stool Vibrio (PCR) (Not Detect) Stl Vibrio cholerae PCR (Not Detect) Stl Enteroaggr Ecoli PCR (Not Detect) Stl Norovirus GI/GII PCR (Not Detect) Vancomycin Peak (20-40) ug/mL Vancomycin Trough Chlamy pneumoniae PCR Not detected (Not Detect) Adenovirus (PCR) Not detected (Not Detect) B. pertussis DNA (PCR) Not detected (Not Detecte) B.parapertussis DNA PCR Not detected (Not Detecte) Campylobacter (PCR) (Not Detect) C. difficile Tox (PCR) (Not Detect) Coronavirus OC43 (PCR) Not detected (Not Detect) Coronavirus HKU1 (PCR) Not detected (Not Detect) Coronavirus 229E (PCR) Not detected (Not Detect) SARS-CoV-2 (PCR) Not detected (Not Detecte) Coronavirus NL63 (PCR) Not detected (Not Detect) Human Metapneumovir PCR Not detected (Not Detect) Influenza Type A (PCR) Not detected (Not Detect) Influenza Type B (PCR) Not detected (Not Detect) M. pneumoniae (PCR) Not detected (Not Detect) Parainfluenza 1 (PCR) Not detected (Not Detect) Parainfluenza 2 (PCR) Not detected (Not Detect) Parainfluenza 3 (PCR) Not detected (Not Detect) Parainfluenza 4 (PCR) Not detected (Not Detect) RSV (PCR) Not detected (Not Detect) Entero/Rhino (PCR) Not detected (Not Detect) Salmonella (PCR) (Not Detect) 01/04/23 01/04/23 01/04/23 Range/Units 06:33 06:33 19:55 WBC 11.4 H (4.5-11.0) X10^3/uL RBC 4.18 L (4.5-5.9) X10^6/uL Hgb 10.5 L (13.5-17.5) g/dL Hct 32.3 L (41-53) % MCV 77.4 L (80-100) fL MCH 25.2 L (26-34) PG MCHC 32.6 (30-36) % RDW 14.1 (11.6-14.8) % Plt Count 447 H (150-400) X10^3/uL Neut % (Auto) 79.8 H (50-75) % Lymph % (Auto) 10.7 L (25-40) % Miller % (Auto) 6.3 (3-14) % Eos % (Auto) 1.9 L (2-4) % Baso % (Auto) 1.3 (0-2) % Neut # (Auto) 9100 H (9845-2396) /uL Lymph # (Auto) 1200 (6974-5978) /uL Miller # (Auto) 700 (0-900) /uL Eos # (Auto) 200 (0-450) /uL Baso # (Auto) 200 H (0-100) /uL PT (10.1-12.7) SECONDS INR (0.9-1.3) APTT (26-36) SECONDS D-Dimer (<500) ng/ml Sodium 133 L (137-145) mmol/L Potassium 4.0 (3.4-5.1) mmol/L Chloride 101 (98-107) mmol/L Carbon Dioxide 29 (22-32) mmol/L BUN 5 L (9-20) mg/dL Creatinine 0.38 L (0.66-1.25) mg/dL Estimated GFR > 60 (>60) mL/min BUN/Creatinine Ratio 13.2 (6-22) Glucose 90 (70-100) mg/dL Lactate (0.7-2.1) mmol/L Calcium 8.2 L (8.4-10.2) mg/dL Phosphorus (2.5-4.5) mg/dL Magnesium (1.6-2.3) mg/dL Total Bilirubin 0.3 (0.2-1.3) mg/dL AST 14 L (17-59) IU/L ALT 11 (<50) IU/L Alkaline Phosphatase 92 (38-126) U/L Total Protein 7.0 (6.3-8.2) g/dL Albumin 3.1 L (3.5-5.0) g/dL Globulin 3.9 (1.7-4.1) g/dL Albumin/Globulin Ratio 0.8 L (1.0-2.8) Prealbumin (17.6-36.0) mg/dL Triglycerides (35-150) mg/dL Lipase (23-300) U/L Procalcitonin (<0.5) ng/mL Nasal Screen MRSA (PCR) (Not Detect) Stl C. cayetanensis PCR (Not Detect) Stool Rotavirus (PCR) (Not Detect) Stool Adenovirus (PCR) (Not Detect) Stool Astrovirus (PCR) (Not Detect) Stool Cryptosporidium PCR (Not Detect) Stl E.coli Shiga Tox PCR (Not Detect) St Sh/Enteroin Ecoli PCR (Not Detect) Stool E coli O157 PCR Stl Enterotoxigenic E PCR (Not Detect) Stool EPEC (PCR) (Not Detect) Stl E. histolytica PCR (Not Detect) Stool Giardia Lamblia PCR (Not Detect) Stool Sapovirus (PCR) (Not Detect) Stl P. shigelloides PCR (Not Detect) St Y.enterocolitica PCR (Not Detect) Stool Vibrio (PCR) (Not Detect) Stl Vibrio cholerae PCR (Not Detect) Stl Enteroaggr Ecoli PCR (Not Detect) Stl Norovirus GI/GII PCR (Not Detect) Vancomycin Peak (20-40) ug/mL Vancomycin Trough Cancelled Chlamy pneumoniae PCR (Not Detect) Adenovirus (PCR) (Not Detect) B. pertussis DNA (PCR) (Not Detecte) B.parapertussis DNA PCR (Not Detecte) Campylobacter (PCR) (Not Detect) C. difficile Tox (PCR) (Not Detect) Coronavirus OC43 (PCR) (Not Detect) Coronavirus HKU1 (PCR) (Not Detect) Coronavirus 229E (PCR) (Not Detect) SARS-CoV-2 (PCR) (Not Detecte) Coronavirus NL63 (PCR) (Not Detect) Human Metapneumovir PCR (Not Detect) Influenza Type A (PCR) (Not Detect) Influenza Type B (PCR) (Not Detect) M. pneumoniae (PCR) (Not Detect) Parainfluenza 1 (PCR) (Not Detect) Parainfluenza 2 (PCR) (Not Detect) Parainfluenza 3 (PCR) (Not Detect) Parainfluenza 4 (PCR) (Not Detect) RSV (PCR) (Not Detect) Entero/Rhino (PCR) (Not Detect) Salmonella (PCR) (Not Detect) 01/04/23 01/05/23 01/05/23 Range/Units 22:03 06:40 06:40 WBC 10.5 (4.5-11.0) X10^3/uL RBC 4.65 (4.5-5.9) X10^6/uL Hgb 11.7 L (13.5-17.5) g/dL Hct 36.1 L (41-53) % MCV 77.7 L (80-100) fL MCH 25.1 L (26-34) PG MCHC 32.3 (30-36) % RDW 14.7 (11.6-14.8) % Plt Count 430 H (150-400) X10^3/uL Neut % (Auto) 78.4 H (50-75) % Lymph % (Auto) 10.6 L (25-40) % Miller % (Auto) 6.3 (3-14) % Eos % (Auto) 3.8 (2-4) % Baso % (Auto) 0.9 (0-2) % Neut # (Auto) 8200 H (3206-7624) /uL Lymph # (Auto) 1100 (9378-4298) /uL Miller # (Auto) 700 (0-900) /uL Eos # (Auto) 400 (0-450) /uL Baso # (Auto) 100 (0-100) /uL PT (10.1-12.7) SECONDS INR (0.9-1.3) APTT (26-36) SECONDS D-Dimer (<500) ng/ml Sodium 133 L (137-145) mmol/L Potassium 4.2 (3.4-5.1) mmol/L Chloride 104 (98-107) mmol/L Carbon Dioxide 23 (22-32) mmol/L BUN 3 L (9-20) mg/dL Creatinine 0.37 L (0.66-1.25) mg/dL Estimated GFR > 60 (>60) mL/min BUN/Creatinine Ratio 8.1 (6-22) Glucose 55 L (70-100) mg/dL Lactate (0.7-2.1) mmol/L Calcium 8.4 (8.4-10.2) mg/dL Phosphorus (2.5-4.5) mg/dL Magnesium (1.6-2.3) mg/dL Total Bilirubin 0.5 (0.2-1.3) mg/dL AST 14 L (17-59) IU/L ALT 8 (<50) IU/L Alkaline Phosphatase 102 (38-126) U/L Total Protein 7.3 (6.3-8.2) g/dL Albumin 3.4 L (3.5-5.0) g/dL Globulin 3.9 (1.7-4.1) g/dL Albumin/Globulin Ratio 0.9 L (1.0-2.8) Prealbumin (17.6-36.0) mg/dL Triglycerides (35-150) mg/dL Lipase (23-300) U/L Procalcitonin (<0.5) ng/mL Nasal Screen MRSA (PCR) (Not Detect) Stl C. cayetanensis PCR (Not Detect) Stool Rotavirus (PCR) (Not Detect) Stool Adenovirus (PCR) (Not Detect) Stool Astrovirus (PCR) (Not Detect) Stool Cryptosporidium PCR (Not Detect) Stl E.coli Shiga Tox PCR (Not Detect) St Sh/Enteroin Ecoli PCR (Not Detect) Stool E coli O157 PCR Stl Enterotoxigenic E PCR (Not Detect) Stool EPEC (PCR) (Not Detect) Stl E. histolytica PCR (Not Detect) Stool Giardia Lamblia PCR (Not Detect) Stool Sapovirus (PCR) (Not Detect) Stl P. shigelloides PCR (Not Detect) St Y.enterocolitica PCR (Not Detect) Stool Vibrio (PCR) (Not Detect) Stl Vibrio cholerae PCR (Not Detect) Stl Enteroaggr Ecoli PCR (Not Detect) Stl Norovirus GI/GII PCR (Not Detect) Vancomycin Peak 32.4 (20-40) ug/mL Vancomycin Trough Chlamy pneumoniae PCR (Not Detect) Adenovirus (PCR) (Not Detect) B. pertussis DNA (PCR) (Not Detecte) B.parapertussis DNA PCR (Not Detecte) Campylobacter (PCR) (Not Detect) C. difficile Tox (PCR) (Not Detect) Coronavirus OC43 (PCR) (Not Detect) Coronavirus HKU1 (PCR) (Not Detect) Coronavirus 229E (PCR) (Not Detect) SARS-CoV-2 (PCR) (Not Detecte) Coronavirus NL63 (PCR) (Not Detect) Human Metapneumovir PCR (Not Detect) Influenza Type A (PCR) (Not Detect) Influenza Type B (PCR) (Not Detect) M. pneumoniae (PCR) (Not Detect) Parainfluenza 1 (PCR) (Not Detect) Parainfluenza 2 (PCR) (Not Detect) Parainfluenza 3 (PCR) (Not Detect) Parainfluenza 4 (PCR) (Not Detect) RSV (PCR) (Not Detect) Entero/Rhino (PCR) (Not Detect) Salmonella (PCR) (Not Detect) 01/05/23 01/06/23 01/06/23 Range/Units 12:18 07:50 07:50 WBC 10.8 (4.5-11.0) X10^3/uL RBC 4.33 L (4.5-5.9) X10^6/uL Hgb 10.8 L (13.5-17.5) g/dL Hct 33.2 L (41-53) % MCV 76.7 L (80-100) fL MCH 25.0 L (26-34) PG MCHC 32.6 (30-36) % RDW 14.5 (11.6-14.8) % Plt Count 366 (150-400) X10^3/uL Neut % (Auto) 90.2 H (50-75) % Lymph % (Auto) 6.1 L (25-40) % Miller % (Auto) 1.9 L (3-14) % Eos % (Auto) 1.2 L (2-4) % Baso % (Auto) 0.6 (0-2) % Neut # (Auto) 9700 H (0937-4271) /uL Lymph # (Auto) 700 L (5645-6154) /uL Miller # (Auto) 200 (0-900) /uL Eos # (Auto) 100 (0-450) /uL Baso # (Auto) 100 (0-100) /uL PT (10.1-12.7) SECONDS INR (0.9-1.3) APTT (26-36) SECONDS D-Dimer (<500) ng/ml Sodium 130 L (137-145) mmol/L Potassium 3.6 (3.4-5.1) mmol/L Chloride 101 (98-107) mmol/L Carbon Dioxide 19 L (22-32) mmol/L BUN 2 L (9-20) mg/dL Creatinine 0.28 L (0.66-1.25) mg/dL Estimated GFR > 60 (>60) mL/min BUN/Creatinine Ratio 7.1 (6-22) Glucose 166 H D (70-100) mg/dL Lactate (0.7-2.1) mmol/L Calcium 7.9 L (8.4-10.2) mg/dL Phosphorus (2.5-4.5) mg/dL Magnesium (1.6-2.3) mg/dL Total Bilirubin 0.3 (0.2-1.3) mg/dL AST 14 L (17-59) IU/L ALT 8 (<50) IU/L Alkaline Phosphatase 93 (38-126) U/L Total Protein 6.3 (6.3-8.2) g/dL Albumin 2.9 L (3.5-5.0) g/dL Globulin 3.4 (1.7-4.1) g/dL Albumin/Globulin Ratio 0.9 L (1.0-2.8) Prealbumin (17.6-36.0) mg/dL Triglycerides (35-150) mg/dL Lipase (23-300) U/L Procalcitonin (<0.5) ng/mL Nasal Screen MRSA (PCR) (Not Detect) Stl C. cayetanensis PCR (Not Detect) Stool Rotavirus (PCR) (Not Detect) Stool Adenovirus (PCR) (Not Detect) Stool Astrovirus (PCR) (Not Detect) Stool Cryptosporidium PCR (Not Detect) Stl E.coli Shiga Tox PCR (Not Detect) St Sh/Enteroin Ecoli PCR (Not Detect) Stool E coli O157 PCR Stl Enterotoxigenic E PCR (Not Detect) Stool EPEC (PCR) (Not Detect) Stl E. histolytica PCR (Not Detect) Stool Giardia Lamblia PCR (Not Detect) Stool Sapovirus (PCR) (Not Detect) Stl P. shigelloides PCR (Not Detect) St Y.enterocolitica PCR (Not Detect) Stool Vibrio (PCR) (Not Detect) Stl Vibrio cholerae PCR (Not Detect) Stl Enteroaggr Ecoli PCR (Not Detect) Stl Norovirus GI/GII PCR (Not Detect) Vancomycin Peak (20-40) ug/mL Vancomycin Trough 25.2 H* Chlamy pneumoniae PCR (Not Detect) Adenovirus (PCR) (Not Detect) B. pertussis DNA (PCR) (Not Detecte) B.parapertussis DNA PCR (Not Detecte) Campylobacter (PCR) (Not Detect) C. difficile Tox (PCR) (Not Detect) Coronavirus OC43 (PCR) (Not Detect) Coronavirus HKU1 (PCR) (Not Detect) Coronavirus 229E (PCR) (Not Detect) SARS-CoV-2 (PCR) (Not Detecte) Coronavirus NL63 (PCR) (Not Detect) Human Metapneumovir PCR (Not Detect) Influenza Type A (PCR) (Not Detect) Influenza Type B (PCR) (Not Detect) M. pneumoniae (PCR) (Not Detect) Parainfluenza 1 (PCR) (Not Detect) Parainfluenza 2 (PCR) (Not Detect) Parainfluenza 3 (PCR) (Not Detect) Parainfluenza 4 (PCR) (Not Detect) RSV (PCR) (Not Detect) Entero/Rhino (PCR) (Not Detect) Salmonella (PCR) (Not Detect) 01/06/23 01/06/23 01/06/23 Range/Units 07:50 07:50 12:22 WBC (4.5-11.0) X10^3/uL RBC (4.5-5.9) X10^6/uL Hgb (13.5-17.5) g/dL Hct (41-53) % MCV (80-100) fL MCH (26-34) PG MCHC (30-36) % RDW (11.6-14.8) % Plt Count (150-400) X10^3/uL Neut % (Auto) (50-75) % Lymph % (Auto) (25-40) % Miller % (Auto) (3-14) % Eos % (Auto) (2-4) % Baso % (Auto) (0-2) % Neut # (Auto) (1878-5907) /uL Lymph # (Auto) (0872-3835) /uL Miller # (Auto) (0-900) /uL Eos # (Auto) (0-450) /uL Baso # (Auto) (0-100) /uL PT (10.1-12.7) SECONDS INR (0.9-1.3) APTT (26-36) SECONDS D-Dimer (<500) ng/ml Sodium (137-145) mmol/L Potassium (3.4-5.1) mmol/L Chloride (98-107) mmol/L Carbon Dioxide (22-32) mmol/L BUN (9-20) mg/dL Creatinine (0.66-1.25) mg/dL Estimated GFR (>60) mL/min BUN/Creatinine Ratio (6-22) Glucose (70-100) mg/dL Lactate (0.7-2.1) mmol/L Calcium (8.4-10.2) mg/dL Phosphorus 2.4 L (2.5-4.5) mg/dL Magnesium 1.6 (1.6-2.3) mg/dL Total Bilirubin (0.2-1.3) mg/dL AST (17-59) IU/L ALT (<50) IU/L Alkaline Phosphatase (38-126) U/L Total Protein (6.3-8.2) g/dL Albumin (3.5-5.0) g/dL Globulin (1.7-4.1) g/dL Albumin/Globulin Ratio (1.0-2.8) Prealbumin 3.0 L (17.6-36.0) mg/dL Triglycerides 80 (35-150) mg/dL Lipase (23-300) U/L Procalcitonin 0.11 (<0.5) ng/mL Nasal Screen MRSA (PCR) Detected H (Not Detect) Stl C. cayetanensis PCR (Not Detect) Stool Rotavirus (PCR) (Not Detect) Stool Adenovirus (PCR) (Not Detect) Stool Astrovirus (PCR) (Not Detect) Stool Cryptosporidium PCR (Not Detect) Stl E.coli Shiga Tox PCR (Not Detect) St Sh/Enteroin Ecoli PCR (Not Detect) Stool E coli O157 PCR Stl Enterotoxigenic E PCR (Not Detect) Stool EPEC (PCR) (Not Detect) Stl E. histolytica PCR (Not Detect) Stool Giardia Lamblia PCR (Not Detect) Stool Sapovirus (PCR) (Not Detect) Stl P. shigelloides PCR (Not Detect) St Y.enterocolitica PCR (Not Detect) Stool Vibrio (PCR) (Not Detect) Stl Vibrio cholerae PCR (Not Detect) Stl Enteroaggr Ecoli PCR (Not Detect) Stl Norovirus GI/GII PCR (Not Detect) Vancomycin Peak (20-40) ug/mL Vancomycin Trough Chlamy pneumoniae PCR (Not Detect) Adenovirus (PCR) (Not Detect) B. pertussis DNA (PCR) (Not Detecte) B.parapertussis DNA PCR (Not Detecte) Campylobacter (PCR) (Not Detect) C. difficile Tox (PCR) (Not Detect) Coronavirus OC43 (PCR) (Not Detect) Coronavirus HKU1 (PCR) (Not Detect) Coronavirus 229E (PCR) (Not Detect) SARS-CoV-2 (PCR) (Not Detecte) Coronavirus NL63 (PCR) (Not Detect) Human Metapneumovir PCR (Not Detect) Influenza Type A (PCR) (Not Detect) Influenza Type B (PCR) (Not Detect) M. pneumoniae (PCR) (Not Detect) Parainfluenza 1 (PCR) (Not Detect) Parainfluenza 2 (PCR) (Not Detect) Parainfluenza 3 (PCR) (Not Detect) Parainfluenza 4 (PCR) (Not Detect) RSV (PCR) (Not Detect) Entero/Rhino (PCR) (Not Detect) Salmonella (PCR) (Not Detect) 01/06/23 Range/Units 15:48 WBC (4.5-11.0) X10^3/uL RBC (4.5-5.9) X10^6/uL Hgb (13.5-17.5) g/dL Hct (41-53) % MCV (80-100) fL MCH (26-34) PG MCHC (30-36) % RDW (11.6-14.8) % Plt Count (150-400) X10^3/uL Neut % (Auto) (50-75) % Lymph % (Auto) (25-40) % Miller % (Auto) (3-14) % Eos % (Auto) (2-4) % Baso % (Auto) (0-2) % Neut # (Auto) (1410-7259) /uL Lymph # (Auto) (6646-2231) /uL Miller # (Auto) (0-900) /uL Eos # (Auto) (0-450) /uL Baso # (Auto) (0-100) /uL PT (10.1-12.7) SECONDS INR (0.9-1.3) APTT (26-36) SECONDS D-Dimer (<500) ng/ml Sodium (137-145) mmol/L Potassium (3.4-5.1) mmol/L Chloride (98-107) mmol/L Carbon Dioxide (22-32) mmol/L BUN (9-20) mg/dL Creatinine (0.66-1.25) mg/dL Estimated GFR (>60) mL/min BUN/Creatinine Ratio (6-22) Glucose (70-100) mg/dL Lactate (0.7-2.1) mmol/L Calcium (8.4-10.2) mg/dL Phosphorus (2.5-4.5) mg/dL Magnesium (1.6-2.3) mg/dL Total Bilirubin (0.2-1.3) mg/dL AST (17-59) IU/L ALT (<50) IU/L Alkaline Phosphatase (38-126) U/L Total Protein (6.3-8.2) g/dL Albumin (3.5-5.0) g/dL Globulin (1.7-4.1) g/dL Albumin/Globulin Ratio (1.0-2.8) Prealbumin (17.6-36.0) mg/dL Triglycerides (35-150) mg/dL Lipase (23-300) U/L Procalcitonin (<0.5) ng/mL Nasal Screen MRSA (PCR) (Not Detect) Stl C. cayetanensis PCR Not detected (Not Detect) Stool Rotavirus (PCR) Not detected (Not Detect) Stool Adenovirus (PCR) Not detected (Not Detect) Stool Astrovirus (PCR) Not detected (Not Detect) Stool Cryptosporidium PCR Not detected (Not Detect) Stl E.coli Shiga Tox PCR Not detected (Not Detect) St Sh/Enteroin Ecoli PCR Not detected (Not Detect) Stool E coli O157 PCR Not Reportable Stl Enterotoxigenic E PCR Not detected (Not Detect) Stool EPEC (PCR) Not detected (Not Detect) Stl E. histolytica PCR Not detected (Not Detect) Stool Giardia Lamblia PCR Not detected (Not Detect) Stool Sapovirus (PCR) Not detected (Not Detect) Stl P. shigelloides PCR Not detected (Not Detect) St Y.enterocolitica PCR Not detected (Not Detect) Stool Vibrio (PCR) Not detected (Not Detect) Stl Vibrio cholerae PCR Not detected (Not Detect) Stl Enteroaggr Ecoli PCR Not detected (Not Detect) Stl Norovirus GI/GII PCR Not detected (Not Detect) Vancomycin Peak (20-40) ug/mL Vancomycin Trough Chlamy pneumoniae PCR (Not Detect) Adenovirus (PCR) (Not Detect) B. pertussis DNA (PCR) (Not Detecte) B.parapertussis DNA PCR (Not Detecte) Campylobacter (PCR) Not detected (Not Detect) C. difficile Tox (PCR) Not detected (Not Detect) Coronavirus OC43 (PCR) (Not Detect) Coronavirus HKU1 (PCR) (Not Detect) Coronavirus 229E (PCR) (Not Detect) SARS-CoV-2 (PCR) (Not Detecte) Coronavirus NL63 (PCR) (Not Detect) Human Metapneumovir PCR (Not Detect) Influenza Type A (PCR) (Not Detect) Influenza Type B (PCR) (Not Detect) M. pneumoniae (PCR) (Not Detect) Parainfluenza 1 (PCR) (Not Detect) Parainfluenza 2 (PCR) (Not Detect) Parainfluenza 3 (PCR) (Not Detect) Parainfluenza 4 (PCR) (Not Detect) RSV (PCR) (Not Detect) Entero/Rhino (PCR) (Not Detect) Salmonella (PCR) Not detected (Not Detect) Point of Care Testing Glucose POC 118 Urine Dip Bedside Urine Glucose Negative Bedside Urine Bilirubin - Negative Bedside Urine Ketone - Negative Urine Specific [place] 1.015 Bedside Urine Occult Blood - Negative Bedside Urine pH 6 Bedside Urine Protein - Negative Bedside Urine Urobilinogen - Negative Bedside Urine Nitrite - Negative Bedside Urine Leukocytes - Negative Esterase Point of care testing: Point of Care Testing Glucose POC 118 Urine Dip Bedside Urine Glucose Negative Bedside Urine Bilirubin - Negative Bedside Urine Ketone - Negative Urine Specific [place] 1.015 Bedside Urine Occult Blood - Negative Bedside Urine pH 6 Bedside Urine Protein - Negative Bedside Urine Urobilinogen - Negative Bedside Urine Nitrite - Negative Bedside Urine Leukocytes - Negative Esterase <Wendie Harrell, DO - Last Filed: 01/06/23 19:43> Lab Data Labs: Lab Results 01/03/23 01/03/23 01/03/23 Range/Units 20:00 20:00 20:00 WBC 18.5 H (4.5-11.0) X10^3/uL RBC 5.18 (4.5-5.9) X10^6/uL Hgb 13.0 L (13.5-17.5) g/dL Hct 39.9 L (41-53) % MCV 77.1 L (80-100) fL MCH 25.0 L (26-34) PG MCHC 32.5 (30-36) % RDW 14.5 (11.6-14.8) % Plt Count 594 H (150-400) X10^3/uL Neut % (Auto) 85.9 H (50-75) % Lymph % (Auto) 7.2 L (25-40) % Miller % (Auto) 5.9 (3-14) % Eos % (Auto) 0.6 L (2-4) % Baso % (Auto) 0.4 (0-2) % Neut # (Auto) 87610 H (0338-5831) /uL Lymph # (Auto) 1300 (4790-8181) /uL Miller # (Auto) 1100 H (0-900) /uL Eos # (Auto) 100 (0-450) /uL Baso # (Auto) 100 (0-100) /uL PT 17.6 H (10.1-12.7) SECONDS INR 1.5 H (0.9-1.3) APTT 46 H (26-36) SECONDS D-Dimer (<500) ng/ml Sodium 134 L (137-145) mmol/L Potassium 4.8 (3.4-5.1) mmol/L Chloride 97 L (98-107) mmol/L Carbon Dioxide 22 (22-32) mmol/L BUN 8 L (9-20) mg/dL Creatinine 0.41 L (0.66-1.25) mg/dL Estimated GFR > 60 (>60) mL/min BUN/Creatinine Ratio 19.5 (6-22) Glucose 60 L (70-100) mg/dL Lactate (0.7-2.1) mmol/L Calcium 9.4 (8.4-10.2) mg/dL Phosphorus (2.5-4.5) mg/dL Magnesium (1.6-2.3) mg/dL Total Bilirubin 0.8 (0.2-1.3) mg/dL AST 17 (17-59) IU/L ALT 11 (<50) IU/L Alkaline Phosphatase 136 H (38-126) U/L Total Protein 9.0 H (6.3-8.2) g/dL Albumin 4.1 (3.5-5.0) g/dL Globulin 4.9 H (1.7-4.1) g/dL Albumin/Globulin Ratio 0.8 L (1.0-2.8) Prealbumin (17.6-36.0) mg/dL Triglycerides (35-150) mg/dL Lipase 34 (23-300) U/L Procalcitonin 0.12 (<0.5) ng/mL Nasal Screen MRSA (PCR) (Not Detect) Stl C. cayetanensis PCR (Not Detect) Stool Rotavirus (PCR) (Not Detect) Stool Adenovirus (PCR) (Not Detect) Stool Astrovirus (PCR) (Not Detect) Stool Cryptosporidium PCR (Not Detect) Stl E.coli Shiga Tox PCR (Not Detect) St Sh/Enteroin Ecoli PCR (Not Detect) Stool E coli O157 PCR Stl Enterotoxigenic E PCR (Not Detect) Stool EPEC (PCR) (Not Detect) Stl E. histolytica PCR (Not Detect) Stool Giardia Lamblia PCR (Not Detect) Stool Sapovirus (PCR) (Not Detect) Stl P. shigelloides PCR (Not Detect) St Y.enterocolitica PCR (Not Detect) Stool Vibrio (PCR) (Not Detect) Stl Vibrio cholerae PCR (Not Detect) Stl Enteroaggr Ecoli PCR (Not Detect) Stl Norovirus GI/GII PCR (Not Detect) Vancomycin Peak (20-40) ug/mL Vancomycin Trough Chlamy pneumoniae PCR (Not Detect) Adenovirus (PCR) (Not Detect) B. pertussis DNA (PCR) (Not Detecte) B.parapertussis DNA PCR (Not Detecte) Campylobacter (PCR) (Not Detect) C. difficile Tox (PCR) (Not Detect) Coronavirus OC43 (PCR) (Not Detect) Coronavirus HKU1 (PCR) (Not Detect) Coronavirus 229E (PCR) (Not Detect) SARS-CoV-2 (PCR) (Not Detecte) Coronavirus NL63 (PCR) (Not Detect) Human Metapneumovir PCR (Not Detect) Influenza Type A (PCR) (Not Detect) Influenza Type B (PCR) (Not Detect) M. pneumoniae (PCR) (Not Detect) Parainfluenza 1 (PCR) (Not Detect) Parainfluenza 2 (PCR) (Not Detect) Parainfluenza 3 (PCR) (Not Detect) Parainfluenza 4 (PCR) (Not Detect) RSV (PCR) (Not Detect) Entero/Rhino (PCR) (Not Detect) Salmonella (PCR) (Not Detect) 01/03/23 01/03/23 01/03/23 Range/Units 20:00 20:00 20:17 WBC (4.5-11.0) X10^3/uL RBC (4.5-5.9) X10^6/uL Hgb (13.5-17.5) g/dL Hct (41-53) % MCV (80-100) fL MCH (26-34) PG MCHC (30-36) % RDW (11.6-14.8) % Plt Count (150-400) X10^3/uL Neut % (Auto) (50-75) % Lymph % (Auto) (25-40) % Miller % (Auto) (3-14) % Eos % (Auto) (2-4) % Baso % (Auto) (0-2) % Neut # (Auto) (6118-2864) /uL Lymph # (Auto) (4431-0268) /uL Miller # (Auto) (0-900) /uL Eos # (Auto) (0-450) /uL Baso # (Auto) (0-100) /uL PT (10.1-12.7) SECONDS INR (0.9-1.3) APTT (26-36) SECONDS D-Dimer 2141 H (<500) ng/ml Sodium (137-145) mmol/L Potassium (3.4-5.1) mmol/L Chloride (98-107) mmol/L Carbon Dioxide (22-32) mmol/L BUN (9-20) mg/dL Creatinine (0.66-1.25) mg/dL Estimated GFR (>60) mL/min BUN/Creatinine Ratio (6-22) Glucose (70-100) mg/dL Lactate 1.5 (0.7-2.1) mmol/L Calcium (8.4-10.2) mg/dL Phosphorus (2.5-4.5) mg/dL Magnesium (1.6-2.3) mg/dL Total Bilirubin (0.2-1.3) mg/dL AST (17-59) IU/L ALT (<50) IU/L Alkaline Phosphatase (38-126) U/L Total Protein (6.3-8.2) g/dL Albumin (3.5-5.0) g/dL Globulin (1.7-4.1) g/dL Albumin/Globulin Ratio (1.0-2.8) Prealbumin (17.6-36.0) mg/dL Triglycerides (35-150) mg/dL Lipase (23-300) U/L Procalcitonin (<0.5) ng/mL Nasal Screen MRSA (PCR) (Not Detect) Stl C. cayetanensis PCR (Not Detect) Stool Rotavirus (PCR) (Not Detect) Stool Adenovirus (PCR) (Not Detect) Stool Astrovirus (PCR) (Not Detect) Stool Cryptosporidium PCR (Not Detect) Stl E.coli Shiga Tox PCR (Not Detect) St Sh/Enteroin Ecoli PCR (Not Detect) Stool E coli O157 PCR Stl Enterotoxigenic E PCR (Not Detect) Stool EPEC (PCR) (Not Detect) Stl E. histolytica PCR (Not Detect) Stool Giardia Lamblia PCR (Not Detect) Stool Sapovirus (PCR) (Not Detect) Stl P. shigelloides PCR (Not Detect) St Y.enterocolitica PCR (Not Detect) Stool Vibrio (PCR) (Not Detect) Stl Vibrio cholerae PCR (Not Detect) Stl Enteroaggr Ecoli PCR (Not Detect) Stl Norovirus GI/GII PCR (Not Detect) Vancomycin Peak (20-40) ug/mL Vancomycin Trough Chlamy pneumoniae PCR Not detected (Not Detect) Adenovirus (PCR) Not detected (Not Detect) B. pertussis DNA (PCR) Not detected (Not Detecte) B.parapertussis DNA PCR Not detected (Not Detecte) Campylobacter (PCR) (Not Detect) C. difficile Tox (PCR) (Not Detect) Coronavirus OC43 (PCR) Not detected (Not Detect) Coronavirus HKU1 (PCR) Not detected (Not Detect) Coronavirus 229E (PCR) Not detected (Not Detect) SARS-CoV-2 (PCR) Not detected (Not Detecte) Coronavirus NL63 (PCR) Not detected (Not Detect) Human Metapneumovir PCR Not detected (Not Detect) Influenza Type A (PCR) Not detected (Not Detect) Influenza Type B (PCR) Not detected (Not Detect) M. pneumoniae (PCR) Not detected (Not Detect) Parainfluenza 1 (PCR) Not detected (Not Detect) Parainfluenza 2 (PCR) Not detected (Not Detect) Parainfluenza 3 (PCR) Not detected (Not Detect) Parainfluenza 4 (PCR) Not detected (Not Detect) RSV (PCR) Not detected (Not Detect) Entero/Rhino (PCR) Not detected (Not Detect) Salmonella (PCR) (Not Detect) 01/04/23 01/04/23 01/04/23 Range/Units 06:33 06:33 19:55 WBC 11.4 H (4.5-11.0) X10^3/uL RBC 4.18 L (4.5-5.9) X10^6/uL Hgb 10.5 L (13.5-17.5) g/dL Hct 32.3 L (41-53) % MCV 77.4 L (80-100) fL MCH 25.2 L (26-34) PG MCHC 32.6 (30-36) % RDW 14.1 (11.6-14.8) % Plt Count 447 H (150-400) X10^3/uL Neut % (Auto) 79.8 H (50-75) % Lymph % (Auto) 10.7 L (25-40) % Miller % (Auto) 6.3 (3-14) % Eos % (Auto) 1.9 L (2-4) % Baso % (Auto) 1.3 (0-2) % Neut # (Auto) 9100 H (1465-1198) /uL Lymph # (Auto) 1200 (4570-2308) /uL Miller # (Auto) 700 (0-900) /uL Eos # (Auto) 200 (0-450) /uL Baso # (Auto) 200 H (0-100) /uL PT (10.1-12.7) SECONDS INR (0.9-1.3) APTT (26-36) SECONDS D-Dimer (<500) ng/ml Sodium 133 L (137-145) mmol/L Potassium 4.0 (3.4-5.1) mmol/L Chloride 101 (98-107) mmol/L Carbon Dioxide 29 (22-32) mmol/L BUN 5 L (9-20) mg/dL Creatinine 0.38 L (0.66-1.25) mg/dL Estimated GFR > 60 (>60) mL/min BUN/Creatinine Ratio 13.2 (6-22) Glucose 90 (70-100) mg/dL Lactate (0.7-2.1) mmol/L Calcium 8.2 L (8.4-10.2) mg/dL Phosphorus (2.5-4.5) mg/dL Magnesium (1.6-2.3) mg/dL Total Bilirubin 0.3 (0.2-1.3) mg/dL AST 14 L (17-59) IU/L ALT 11 (<50) IU/L Alkaline Phosphatase 92 (38-126) U/L Total Protein 7.0 (6.3-8.2) g/dL Albumin 3.1 L (3.5-5.0) g/dL Globulin 3.9 (1.7-4.1) g/dL Albumin/Globulin Ratio 0.8 L (1.0-2.8) Prealbumin (17.6-36.0) mg/dL Triglycerides (35-150) mg/dL Lipase (23-300) U/L Procalcitonin (<0.5) ng/mL Nasal Screen MRSA (PCR) (Not Detect) Stl C. cayetanensis PCR (Not Detect) Stool Rotavirus (PCR) (Not Detect) Stool Adenovirus (PCR) (Not Detect) Stool Astrovirus (PCR) (Not Detect) Stool Cryptosporidium PCR (Not Detect) Stl E.coli Shiga Tox PCR (Not Detect) St Sh/Enteroin Ecoli PCR (Not Detect) Stool E coli O157 PCR Stl Enterotoxigenic E PCR (Not Detect) Stool EPEC (PCR) (Not Detect) Stl E. histolytica PCR (Not Detect) Stool Giardia Lamblia PCR (Not Detect) Stool Sapovirus (PCR) (Not Detect) Stl P. shigelloides PCR (Not Detect) St Y.enterocolitica PCR (Not Detect) Stool Vibrio (PCR) (Not Detect) Stl Vibrio cholerae PCR (Not Detect) Stl Enteroaggr Ecoli PCR (Not Detect) Stl Norovirus GI/GII PCR (Not Detect) Vancomycin Peak (20-40) ug/mL Vancomycin Trough Cancelled Chlamy pneumoniae PCR (Not Detect) Adenovirus (PCR) (Not Detect) B. pertussis DNA (PCR) (Not Detecte) B.parapertussis DNA PCR (Not Detecte) Campylobacter (PCR) (Not Detect) C. difficile Tox (PCR) (Not Detect) Coronavirus OC43 (PCR) (Not Detect) Coronavirus HKU1 (PCR) (Not Detect) Coronavirus 229E (PCR) (Not Detect) SARS-CoV-2 (PCR) (Not Detecte) Coronavirus NL63 (PCR) (Not Detect) Human Metapneumovir PCR (Not Detect) Influenza Type A (PCR) (Not Detect) Influenza Type B (PCR) (Not Detect) M. pneumoniae (PCR) (Not Detect) Parainfluenza 1 (PCR) (Not Detect) Parainfluenza 2 (PCR) (Not Detect) Parainfluenza 3 (PCR) (Not Detect) Parainfluenza 4 (PCR) (Not Detect) RSV (PCR) (Not Detect) Entero/Rhino (PCR) (Not Detect) Salmonella (PCR) (Not Detect) 01/04/23 01/05/23 01/05/23 Range/Units 22:03 06:40 06:40 WBC 10.5 (4.5-11.0) X10^3/uL RBC 4.65 (4.5-5.9) X10^6/uL Hgb 11.7 L (13.5-17.5) g/dL Hct 36.1 L (41-53) % MCV 77.7 L (80-100) fL MCH 25.1 L (26-34) PG MCHC 32.3 (30-36) % RDW 14.7 (11.6-14.8) % Plt Count 430 H (150-400) X10^3/uL Neut % (Auto) 78.4 H (50-75) % Lymph % (Auto) 10.6 L (25-40) % Miller % (Auto) 6.3 (3-14) % Eos % (Auto) 3.8 (2-4) % Baso % (Auto) 0.9 (0-2) % Neut # (Auto) 8200 H (7973-0343) /uL Lymph # (Auto) 1100 (0428-1725) /uL Miller # (Auto) 700 (0-900) /uL Eos # (Auto) 400 (0-450) /uL Baso # (Auto) 100 (0-100) /uL PT (10.1-12.7) SECONDS INR (0.9-1.3) APTT (26-36) SECONDS D-Dimer (<500) ng/ml Sodium 133 L (137-145) mmol/L Potassium 4.2 (3.4-5.1) mmol/L Chloride 104 (98-107) mmol/L Carbon Dioxide 23 (22-32) mmol/L BUN 3 L (9-20) mg/dL Creatinine 0.37 L (0.66-1.25) mg/dL Estimated GFR > 60 (>60) mL/min BUN/Creatinine Ratio 8.1 (6-22) Glucose 55 L (70-100) mg/dL Lactate (0.7-2.1) mmol/L Calcium 8.4 (8.4-10.2) mg/dL Phosphorus (2.5-4.5) mg/dL Magnesium (1.6-2.3) mg/dL Total Bilirubin 0.5 (0.2-1.3) mg/dL AST 14 L (17-59) IU/L ALT 8 (<50) IU/L Alkaline Phosphatase 102 (38-126) U/L Total Protein 7.3 (6.3-8.2) g/dL Albumin 3.4 L (3.5-5.0) g/dL Globulin 3.9 (1.7-4.1) g/dL Albumin/Globulin Ratio 0.9 L (1.0-2.8) Prealbumin (17.6-36.0) mg/dL Triglycerides (35-150) mg/dL Lipase (23-300) U/L Procalcitonin (<0.5) ng/mL Nasal Screen MRSA (PCR) (Not Detect) Stl C. cayetanensis PCR (Not Detect) Stool Rotavirus (PCR) (Not Detect) Stool Adenovirus (PCR) (Not Detect) Stool Astrovirus (PCR) (Not Detect) Stool Cryptosporidium PCR (Not Detect) Stl E.coli Shiga Tox PCR (Not Detect) St Sh/Enteroin Ecoli PCR (Not Detect) Stool E coli O157 PCR Stl Enterotoxigenic E PCR (Not Detect) Stool EPEC (PCR) (Not Detect) Stl E. histolytica PCR (Not Detect) Stool Giardia Lamblia PCR (Not Detect) Stool Sapovirus (PCR) (Not Detect) Stl P. shigelloides PCR (Not Detect) St Y.enterocolitica PCR (Not Detect) Stool Vibrio (PCR) (Not Detect) Stl Vibrio cholerae PCR (Not Detect) Stl Enteroaggr Ecoli PCR (Not Detect) Stl Norovirus GI/GII PCR (Not Detect) Vancomycin Peak 32.4 (20-40) ug/mL Vancomycin Trough Chlamy pneumoniae PCR (Not Detect) Adenovirus (PCR) (Not Detect) B. pertussis DNA (PCR) (Not Detecte) B.parapertussis DNA PCR (Not Detecte) Campylobacter (PCR) (Not Detect) C. difficile Tox (PCR) (Not Detect) Coronavirus OC43 (PCR) (Not Detect) Coronavirus HKU1 (PCR) (Not Detect) Coronavirus 229E (PCR) (Not Detect) SARS-CoV-2 (PCR) (Not Detecte) Coronavirus NL63 (PCR) (Not Detect) Human Metapneumovir PCR (Not Detect) Influenza Type A (PCR) (Not Detect) Influenza Type B (PCR) (Not Detect) M. pneumoniae (PCR) (Not Detect) Parainfluenza 1 (PCR) (Not Detect) Parainfluenza 2 (PCR) (Not Detect) Parainfluenza 3 (PCR) (Not Detect) Parainfluenza 4 (PCR) (Not Detect) RSV (PCR) (Not Detect) Entero/Rhino (PCR) (Not Detect) Salmonella (PCR) (Not Detect) 01/05/23 01/06/23 01/06/23 Range/Units 12:18 07:50 07:50 WBC 10.8 (4.5-11.0) X10^3/uL RBC 4.33 L (4.5-5.9) X10^6/uL Hgb 10.8 L (13.5-17.5) g/dL Hct 33.2 L (41-53) % MCV 76.7 L (80-100) fL MCH 25.0 L (26-34) PG MCHC 32.6 (30-36) % RDW 14.5 (11.6-14.8) % Plt Count 366 (150-400) X10^3/uL Neut % (Auto) 90.2 H (50-75) % Lymph % (Auto) 6.1 L (25-40) % Miller % (Auto) 1.9 L (3-14) % Eos % (Auto) 1.2 L (2-4) % Baso % (Auto) 0.6 (0-2) % Neut # (Auto) 9700 H (7578-5351) /uL Lymph # (Auto) 700 L (0654-2995) /uL Miller # (Auto) 200 (0-900) /uL Eos # (Auto) 100 (0-450) /uL Baso # (Auto) 100 (0-100) /uL PT (10.1-12.7) SECONDS INR (0.9-1.3) APTT (26-36) SECONDS D-Dimer (<500) ng/ml Sodium 130 L (137-145) mmol/L Potassium 3.6 (3.4-5.1) mmol/L Chloride 101 (98-107) mmol/L Carbon Dioxide 19 L (22-32) mmol/L BUN 2 L (9-20) mg/dL Creatinine 0.28 L (0.66-1.25) mg/dL Estimated GFR > 60 (>60) mL/min BUN/Creatinine Ratio 7.1 (6-22) Glucose 166 H D (70-100) mg/dL Lactate (0.7-2.1) mmol/L Calcium 7.9 L (8.4-10.2) mg/dL Phosphorus (2.5-4.5) mg/dL Magnesium (1.6-2.3) mg/dL Total Bilirubin 0.3 (0.2-1.3) mg/dL AST 14 L (17-59) IU/L ALT 8 (<50) IU/L Alkaline Phosphatase 93 (38-126) U/L Total Protein 6.3 (6.3-8.2) g/dL Albumin 2.9 L (3.5-5.0) g/dL Globulin 3.4 (1.7-4.1) g/dL Albumin/Globulin Ratio 0.9 L (1.0-2.8) Prealbumin (17.6-36.0) mg/dL Triglycerides (35-150) mg/dL Lipase (23-300) U/L Procalcitonin (<0.5) ng/mL Nasal Screen MRSA (PCR) (Not Detect) Stl C. cayetanensis PCR (Not Detect) Stool Rotavirus (PCR) (Not Detect) Stool Adenovirus (PCR) (Not Detect) Stool Astrovirus (PCR) (Not Detect) Stool Cryptosporidium PCR (Not Detect) Stl E.coli Shiga Tox PCR (Not Detect) St Sh/Enteroin Ecoli PCR (Not Detect) Stool E coli O157 PCR Stl Enterotoxigenic E PCR (Not Detect) Stool EPEC (PCR) (Not Detect) Stl E. histolytica PCR (Not Detect) Stool Giardia Lamblia PCR (Not Detect) Stool Sapovirus (PCR) (Not Detect) Stl P. shigelloides PCR (Not Detect) St Y.enterocolitica PCR (Not Detect) Stool Vibrio (PCR) (Not Detect) Stl Vibrio cholerae PCR (Not Detect) Stl Enteroaggr Ecoli PCR (Not Detect) Stl Norovirus GI/GII PCR (Not Detect) Vancomycin Peak (20-40) ug/mL Vancomycin Trough 25.2 H* Chlamy pneumoniae PCR (Not Detect) Adenovirus (PCR) (Not Detect) B. pertussis DNA (PCR) (Not Detecte) B.parapertussis DNA PCR (Not Detecte) Campylobacter (PCR) (Not Detect) C. difficile Tox (PCR) (Not Detect) Coronavirus OC43 (PCR) (Not Detect) Coronavirus HKU1 (PCR) (Not Detect) Coronavirus 229E (PCR) (Not Detect) SARS-CoV-2 (PCR) (Not Detecte) Coronavirus NL63 (PCR) (Not Detect) Human Metapneumovir PCR (Not Detect) Influenza Type A (PCR) (Not Detect) Influenza Type B (PCR) (Not Detect) M. pneumoniae (PCR) (Not Detect) Parainfluenza 1 (PCR) (Not Detect) Parainfluenza 2 (PCR) (Not Detect) Parainfluenza 3 (PCR) (Not Detect) Parainfluenza 4 (PCR) (Not Detect) RSV (PCR) (Not Detect) Entero/Rhino (PCR) (Not Detect) Salmonella (PCR) (Not Detect) 01/06/23 01/06/23 01/06/23 Range/Units 07:50 07:50 12:22 WBC (4.5-11.0) X10^3/uL RBC (4.5-5.9) X10^6/uL Hgb (13.5-17.5) g/dL Hct (41-53) % MCV (80-100) fL MCH (26-34) PG MCHC (30-36) % RDW (11.6-14.8) % Plt Count (150-400) X10^3/uL Neut % (Auto) (50-75) % Lymph % (Auto) (25-40) % Miller % (Auto) (3-14) % Eos % (Auto) (2-4) % Baso % (Auto) (0-2) % Neut # (Auto) (4672-3692) /uL Lymph # (Auto) (7841-9691) /uL Miller # (Auto) (0-900) /uL Eos # (Auto) (0-450) /uL Baso # (Auto) (0-100) /uL PT (10.1-12.7) SECONDS INR (0.9-1.3) APTT (26-36) SECONDS D-Dimer (<500) ng/ml Sodium (137-145) mmol/L Potassium (3.4-5.1) mmol/L Chloride (98-107) mmol/L Carbon Dioxide (22-32) mmol/L BUN (9-20) mg/dL Creatinine (0.66-1.25) mg/dL Estimated GFR (>60) mL/min BUN/Creatinine Ratio (6-22) Glucose (70-100) mg/dL Lactate (0.7-2.1) mmol/L Calcium (8.4-10.2) mg/dL Phosphorus 2.4 L (2.5-4.5) mg/dL Magnesium 1.6 (1.6-2.3) mg/dL Total Bilirubin (0.2-1.3) mg/dL AST (17-59) IU/L ALT (<50) IU/L Alkaline Phosphatase (38-126) U/L Total Protein (6.3-8.2) g/dL Albumin (3.5-5.0) g/dL Globulin (1.7-4.1) g/dL Albumin/Globulin Ratio (1.0-2.8) Prealbumin 3.0 L (17.6-36.0) mg/dL Triglycerides 80 (35-150) mg/dL Lipase (23-300) U/L Procalcitonin 0.11 (<0.5) ng/mL Nasal Screen MRSA (PCR) Detected H (Not Detect) Stl C. cayetanensis PCR (Not Detect) Stool Rotavirus (PCR) (Not Detect) Stool Adenovirus (PCR) (Not Detect) Stool Astrovirus (PCR) (Not Detect) Stool Cryptosporidium PCR (Not Detect) Stl E.coli Shiga Tox PCR (Not Detect) St Sh/Enteroin Ecoli PCR (Not Detect) Stool E coli O157 PCR Stl Enterotoxigenic E PCR (Not Detect) Stool EPEC (PCR) (Not Detect) Stl E. histolytica PCR (Not Detect) Stool Giardia Lamblia PCR (Not Detect) Stool Sapovirus (PCR) (Not Detect) Stl P. shigelloides PCR (Not Detect) St Y.enterocolitica PCR (Not Detect) Stool Vibrio (PCR) (Not Detect) Stl Vibrio cholerae PCR (Not Detect) Stl Enteroaggr Ecoli PCR (Not Detect) Stl Norovirus GI/GII PCR (Not Detect) Vancomycin Peak (20-40) ug/mL Vancomycin Trough Chlamy pneumoniae PCR (Not Detect) Adenovirus (PCR) (Not Detect) B. pertussis DNA (PCR) (Not Detecte) B.parapertussis DNA PCR (Not Detecte) Campylobacter (PCR) (Not Detect) C. difficile Tox (PCR) (Not Detect) Coronavirus OC43 (PCR) (Not Detect) Coronavirus HKU1 (PCR) (Not Detect) Coronavirus 229E (PCR) (Not Detect) SARS-CoV-2 (PCR) (Not Detecte) Coronavirus NL63 (PCR) (Not Detect) Human Metapneumovir PCR (Not Detect) Influenza Type A (PCR) (Not Detect) Influenza Type B (PCR) (Not Detect) M. pneumoniae (PCR) (Not Detect) Parainfluenza 1 (PCR) (Not Detect) Parainfluenza 2 (PCR) (Not Detect) Parainfluenza 3 (PCR) (Not Detect) Parainfluenza 4 (PCR) (Not Detect) RSV (PCR) (Not Detect) Entero/Rhino (PCR) (Not Detect) Salmonella (PCR) (Not Detect) 01/06/23 Range/Units 15:48 WBC (4.5-11.0) X10^3/uL RBC (4.5-5.9) X10^6/uL Hgb (13.5-17.5) g/dL Hct (41-53) % MCV (80-100) fL MCH (26-34) PG MCHC (30-36) % RDW (11.6-14.8) % Plt Count (150-400) X10^3/uL Neut % (Auto) (50-75) % Lymph % (Auto) (25-40) % Miller % (Auto) (3-14) % Eos % (Auto) (2-4) % Baso % (Auto) (0-2) % Neut # (Auto) (3580-1861) /uL Lymph # (Auto) (0802-7498) /uL Miller # (Auto) (0-900) /uL Eos # (Auto) (0-450) /uL Baso # (Auto) (0-100) /uL PT (10.1-12.7) SECONDS INR (0.9-1.3) APTT (26-36) SECONDS D-Dimer (<500) ng/ml Sodium (137-145) mmol/L Potassium (3.4-5.1) mmol/L Chloride (98-107) mmol/L Carbon Dioxide (22-32) mmol/L BUN (9-20) mg/dL Creatinine (0.66-1.25) mg/dL Estimated GFR (>60) mL/min BUN/Creatinine Ratio (6-22) Glucose (70-100) mg/dL Lactate (0.7-2.1) mmol/L Calcium (8.4-10.2) mg/dL Phosphorus (2.5-4.5) mg/dL Magnesium (1.6-2.3) mg/dL Total Bilirubin (0.2-1.3) mg/dL AST (17-59) IU/L ALT (<50) IU/L Alkaline Phosphatase (38-126) U/L Total Protein (6.3-8.2) g/dL Albumin (3.5-5.0) g/dL Globulin (1.7-4.1) g/dL Albumin/Globulin Ratio (1.0-2.8) Prealbumin (17.6-36.0) mg/dL Triglycerides (35-150) mg/dL Lipase (23-300) U/L Procalcitonin (<0.5) ng/mL Nasal Screen MRSA (PCR) (Not Detect) Stl C. cayetanensis PCR Not detected (Not Detect) Stool Rotavirus (PCR) Not detected (Not Detect) Stool Adenovirus (PCR) Not detected (Not Detect) Stool Astrovirus (PCR) Not detected (Not Detect) Stool Cryptosporidium PCR Not detected (Not Detect) Stl E.coli Shiga Tox PCR Not detected (Not Detect) St Sh/Enteroin Ecoli PCR Not detected (Not Detect) Stool E coli O157 PCR Not Reportable Stl Enterotoxigenic E PCR Not detected (Not Detect) Stool EPEC (PCR) Not detected (Not Detect) Stl E. histolytica PCR Not detected (Not Detect) Stool Giardia Lamblia PCR Not detected (Not Detect) Stool Sapovirus (PCR) Not detected (Not Detect) Stl P. shigelloides PCR Not detected (Not Detect) St Y.enterocolitica PCR Not detected (Not Detect) Stool Vibrio (PCR) Not detected (Not Detect) Stl Vibrio cholerae PCR Not detected (Not Detect) Stl Enteroaggr Ecoli PCR Not detected (Not Detect) Stl Norovirus GI/GII PCR Not detected (Not Detect) Vancomycin Peak (20-40) ug/mL Vancomycin Trough Chlamy pneumoniae PCR (Not Detect) Adenovirus (PCR) (Not Detect) B. pertussis DNA (PCR) (Not Detecte) B.parapertussis DNA PCR (Not Detecte) Campylobacter (PCR) Not detected (Not Detect) C. difficile Tox (PCR) Not detected (Not Detect) Coronavirus OC43 (PCR) (Not Detect) Coronavirus HKU1 (PCR) (Not Detect) Coronavirus 229E (PCR) (Not Detect) SARS-CoV-2 (PCR) (Not Detecte) Coronavirus NL63 (PCR) (Not Detect) Human Metapneumovir PCR (Not Detect) Influenza Type A (PCR) (Not Detect) Influenza Type B (PCR) (Not Detect) M. pneumoniae (PCR) (Not Detect) Parainfluenza 1 (PCR) (Not Detect) Parainfluenza 2 (PCR) (Not Detect) Parainfluenza 3 (PCR) (Not Detect) Parainfluenza 4 (PCR) (Not Detect) RSV (PCR) (Not Detect) Entero/Rhino (PCR) (Not Detect) Salmonella (PCR) Not detected (Not Detect) Point of Care Testing Glucose POC 118 Urine Dip Bedside Urine Glucose Negative Bedside Urine Bilirubin - Negative Bedside Urine Ketone - Negative Urine Specific Belpre 1.015 Bedside Urine Occult Blood - Negative Bedside Urine pH 6 Bedside Urine Protein - Negative Bedside Urine Urobilinogen - Negative Bedside Urine Nitrite - Negative Bedside Urine Leukocytes - Negative Esterase Point of care testing: Point of Care Testing Glucose POC 118 Urine Dip Bedside Urine Glucose Negative Bedside Urine Bilirubin - Negative Bedside Urine Ketone - Negative Urine Specific Belpre 1.015 Bedside Urine Occult Blood - Negative Bedside Urine pH 6 Bedside Urine Protein - Negative Bedside Urine Urobilinogen - Negative Bedside Urine Nitrite - Negative Bedside Urine Leukocytes - Negative Esterase MDM Narrative Medical decision making narrative: CC: Increasing dyspnea Complicating co-morbidities: Hemiparesis secondary pediatric glioblastoma, wheelchair-bound, recurrent pneumonias, abnormalities appreciated on chest x-ray with CT scan of the chest anticipated tomorrow Data collected from: patient, mother Social determinants of health that may influence the patients condition: Functional quadriplegia Medical records reviewed: Hospitalized August of 2022 for acute respiratory failure secondary to influenza a and concurrent bacterial pneumonia. Walk-in clinic notes on November 21 with increasing mucus production and again primary care notes December 16 with increasing cough and breathing diagnosed with a left lower lobe pneumonia and treated with azithromycin. Differential considered: Recurrent pneumonia, pulmonary embolism, congestive heart failure, pneumothorax, pleural effusions, sepsis, viral etiology Exam documented above, pertinent findings include: Mild wheezing in all lung matthew with diffuse rhonchi on the left side. Lab Test results independently reviewed as above. Pertinent findings: CBC indicates a white count of 18.5 with left shift and no significant anemia Chemistries are actually relatively reassuring with mild hypoglycemia a glucose 60. D-dimer is elevated greater than 2000 Independently reviewed EKG Sinus tachycardia at a rate of [address] T wave abnormalities without acute ischemia Normal intervals and normal axis Imaging studies independently reviewed: Per radiology dictation Persistent dense retrocardiac opacity and left perihilar infiltrate.? Given volume loss in the left hemithorax, findings are suggestive of left lower lobe atelectasis.? An underlying malignancy should be excluded.? Given the elevated D-dimer,CTA of the chest is ordered rather than plain CT of the chest. CT scan does not demonstrate pulmonary embolism however Centrilobular nodules bilaterally, particularly on the left upper lobe.? Dense consolidation again seen in the left lower lobe, likely with underlying atelectasis.? Moderate left pleural effusion, with pleural enhancement. Treatments: Fluids, IV antibiotics with cefepime and vancomycin and maintenance fluids with dextrose given his slightly low sugar. Discussion: 42-year-old gentleman with functional quadriplegia, chronic bedsore and recurrent left lower lobe pneumonia with concerns for obstructive physiology with persistent left pleural effusion. He was admitted in August with similar findings treated with antibiotics. Was treated with outpatient azithromycin 2 weeks ago continues to have recurrent symptoms and at this point I think he is going to need pulmonary inpatient consultation possible bronchoscopy. To that end have reviewed his case with our hospitalist service. They will consult in the emergency department but will continue to look for bed available at hospital with inpatient pulmonology Infectious Disease consultation available. All of these are reviewed with patient and his mother. Will work on hospital bed, cleaning up his bedsore to make sure that it is not getting worse while we are waiting for inpatient bed and began working on the placement. Dr Perrin: Received turned over. Review patient's history and physical. Patient has been stable throughout the day. Has been receiving antibiotics. At 1 point this afternoon while he was eating he did aspirate his food. He did become hypoxic to the upper 80s during this time but then returned with oxygen. Initial plan was for patient to be transferred to facility that has pulmonology for bronchoscopy given his CT scan findings. No placement has been found today. Care turned over to Dr. Connolly to continue to observe until disposition can be met. Dr. Connolly: Patient signed out to me by Dr. Perrin. Awaiting placement for bronchoscopy. Concern for obstructive left lower lobe pneumonia with persistent left pleural effusion. No evidence of sepsis. Patient continues to be on multiple list. He was mildly hypoxic earlier in the day but appears to be on room air now. Pulmonology was consulted yesterday by the hospitalist who agrees with higher level of care and need for bronchoscopy. Patient signed out to Dr. Llamas. 01/05/231944 Dr. Connolly-patient signed out to me by Dr. Connolly of seen evaluated patient myself. He apparently heating turned became hypoxic requiring non-rebreather. Respiratory attempted deep suctioning they did get up some. However he is still having some respiratory distress. He has definitely crackles and decreased breath sounds more on the right than left. Discussion with mom and patient patient is a full code and is okay with intubation. Previously been intubated for aspiration pneumonia in the past. He has been NPO since yesterday. White count today is improving, electrolytes are stable. Patient is re-examined after suctioning he actually did improve quite a bit but still requiring oxygen. PICC line placed for possible TPN speech evaluation and consultations placed for tomorrow. Still likely needs a bronchoscopy. Patient signed out to Dr. 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 Patient presented and was found to have a obstructive left lower lobe pneumonia with persistent left pleural effusion he was hypoxic but was improving overnight. This morning his mentation was decrease his glucose was 25, he was given an amp of D50 and started on dextrose and TPN order was placed as patient had a PICC line placed for this. After he received dextrose patient's mentation improved immediately. He states his breathing is better than when he came in, he denies work of breathing or feeling short of breath. Patient labs were ordered for this morning and are being drawn. Imaging was reviewed patient had CT angio no PE, bilateral infectious less inflammatory pulmonary nodules consolidation likely atelectasis in left lower lobe with upstream bronchial occlusion and enhancing moderate left pleural effusion. Left lower lobe finding is same in the position as August of 2022. Patient had repeat chest x-ray last night after PICC line so was not repeated yet this morning. He has been off oxygen since early this morning maintaining around 95. He is currently on meropenem and vancomycin. Seeking availability for transfer. Speech therapy had stopped by they know the patient very well from prior visits an outpatient visits. They note that patient has been told repeatedly that he needs is a PEG J-tube and that he should not be eating and that he will continue to aspirate. I did review this with the patient he is aware, we discussed his goals of care. Dr. Belle hospitalist at [facility] accepts patient for transfer reviewed patient's findings, labs and workup. They asked that we speak with pulmonology if necessary. Patient ultimately was accepted after pulmonology reviewed images and did not require consultation. Patient transferred for chest PT and possible bronch. Discharge Plan Departure Patient Disposition: [facility] Clinical Impression: Bacterial pneumonia, Pleural effusion, Chronic pulmonary aspiration Prescriptions: No Action Calmoseptine 0.44-20.6 % ointment 1 applic TOP QID PRN (Reason: skin irritation) Qty: 113 0RF (DME) XL mattress for semi-electric hospital bed See Rx Instructions .Route .MEDSUPPLY Qty: 1 0RF Rx Instructions: use daily as directed (DME) Disabled Parking Qty: 1 0RF Rx Instructions: I find this patient to be medically disabled and qualified for Disabled Parking as indicated, and signed, on the Accompanying Disabled Parking Appli cation for Individuals ferrous sulfate 325 mg (65 mg iron) tablet 130 mg PO DAILY (DME) Battery Powered Lift Qty: 1 0RF Dose Instruction: As directed Rx Instructions: Use daily as directed for transfers to and from bed (DME) Power Chair tall Qty: 1 0RF Dose Instruction: As directed Rx Instructions: As directed for patient care with activities of daily living. Chair needs to tilt foreword and tilt backwards for patient care. Pt is 6 feet tall and will need to fit height. (DME) Semi-electric hospital bed Qty: 1 0RF Dose Instruction: As directed Rx Instructions: Semi-electric hospital bed to permit transfers to wheelchair and to attach traction equipment. Must be large enough and long enough to accommodate his height and weight. EDEN: 99 months (DME) Shower Chair Qty: 1 0RF Rx Instructions: As directed for patient care with activities of daily living. Chair needs to tilt foreword and tilt backwards for patient care. Pt is 6 feet tall and will need to fit height. baclofen 5 mg tablet 5 mg PO DAILY Botox 100 unit recon soln 200 unit IM ONCE Patient Comments: Mother of patient believes he is due for next injection Rx Instructions: Goes every 3 Months for injection sertraline 100 mg tablet See Rx Instructions .ROUTE .COMPLEX Qty: 45 11RF Dose Instruction: Take 1 and 1/2 tablets by mouth once daily Rx Instructions: Take 1 and 1/2 tablets by mouth once daily Referrals: Nargis Fernandez DO [Primary Care Provider] -
--- NOTE | 2023-01-03 19:26 | PC.NURSE ---
This Patient moved from mobile wheelchair to stretcher using Carlos Alberto lift with this RN and two other RN during transfer. Patient has carlos alberto sling under him and between his legs. Patient tolerated the move well without any complaint of pain.
[2023-01-03] MEDS: SODIUM CHLORIDE 0.9% 1,000 ML 1000 ML IV (20:11)
[2023-01-03 20:17] LABS: Add Manual Diff / Slide Review NO; Basophils Absolute Auto 100 /uL (0-100); Basophils Percent Auto 0.4 % (0-2); Eosinophils Absolute Auto 100 /uL (0-450); Eosinophils Percent Auto 0.6 % (2-4); Hematocrit 39.9 % (41-53); Lymphocytes Absolute Auto 1300 /uL (1100-4500); Lymphocytes Percent Auto 7.2 % (25-40); Mean Corpuscular HGB Conc 32.5 % (30-36); Mean Corpuscular Volume 77.1 fL (80-100); Monocytes Absolute Auto 1100 /uL (0-900); Monocytes Percent Auto 5.9 % (3-14); Neutrophils Absolute Auto 15900 /uL (1500-7000); Neutrophils Percent Auto 85.9 % (50-75); Platelet Count 594 X10^3/uL (150-400); Red Blood Cell Count 5.18 X10^6/uL (4.5-5.9); Red Cell Distribution Width 14.5 % (11.6-14.8); White Blood Cell Count 18.5 X10^3/uL (4.5-11.0)
[2023-01-03 20:28] LABS: INR 1.5 (0.9-1.3); Prothrombin Time 17.6 SECONDS (10.1-12.7)
[2023-01-03 20:30] LABS: PTT Partial Thromboplastin Tim 46 SECONDS (26-36)
[2023-01-03 20:32] LABS: Alanine Aminotransferase 11 IU/L (<50); Albumin 4.1 g/dL (3.5-5.0); Albumin Globulin Ratio 0.8 (1.0-2.8); Alkaline Phosphatase 136 U/L (38-126); Aspartate Aminotransferase 17 IU/L (17-59); BUN Creatinine Ratio 19.5 (6-22); Bilirubin Total 0.8 mg/dL (0.2-1.3); Blood Urea Nitrogen 8 mg/dL (9-20); Calcium 9.4 mg/dL (8.4-10.2); Carbon Dioxide 22 mmol/L (22-32); Chloride 97 mmol/L (98-107); Estimated Glomerular Filt Rate > 60 mL/min (>60); Globulin 4.9 g/dL (1.7-4.1); Glucose 60 mg/dL (70-100); HEMOLYSIS 26 (0-50); Lactate (Lactic Acid) 1.5 mmol/L (0.7-2.1); Lipase 34 U/L (23-300); Potassium 4.8 mmol/L (3.4-5.1); Sodium 134 mmol/L (137-145)
[2023-01-03 20:47] LABS: D Dimer 2141 ng/ml (<500)
[2023-01-03 20:49] LABS: Procalcitonin 0.12 ng/mL (<0.5)
[2023-01-03 21:35] LABS: Adenovirus Not Detected (Not Detect); B. parapertussis Not Detected (Not Detecte); Bordetella pertussis Not Detected (Not Detecte); Chlamydophila pneumoniae Not Detected (Not Detect); Coronavirus 229E Not Detected (Not Detect); Coronavirus HKU1 Not Detected (Not Detect); Coronavirus NL 63 Not Detected (Not Detect); Coronavirus OC43 Not Detected (Not Detect); Human Metapneumovirus Not Detected (Not Detect); Human Rhinovirus/Enterovirus Not Detected (Not Detect); Influenza A Not Detected (Not Detect); Influenza B Not Detected (Not Detect); Mycoplasma pneumoniae Not Detected (Not Detect); Parainfluenza Virus 1 Not Detected (Not Detect); Parainfluenza Virus 2 Not Detected (Not Detect); Parainfluenza Virus 3 Not Detected (Not Detect); Parainfluenza Virus 4 Not Detected (Not Detect); Respiratory Syncytial Virus Not Detected (Not Detect); SARS- CoV-2 Not Detected (Not Detecte)
--- NOTE | 2023-01-03 21:39 | DI.CT.S_ITS ---
PROCEDURE: CT ANGIO CHEST PE PROTOCOL INDICATIONS: cough fever adn + d dimer TECHNIQUE: After the administration of intravenous contrast, 2 mm thick sections acquired from the pulmonary apices to the posterior costophrenic angles. 3-dimensional maximum intensity projection (MIP) coronal and sagittal reformats were then acquired through the thorax. For radiation dose reduction, the following was used: automated exposure control, adjustment of mA and/or kV according to patient size. COMPARISON: [facility], CT, CT ANGIO CHEST PE PROTOCOL, 08/30/2022, 0:19. FINDINGS: Image quality: Good Lungs and pleura: Centrilobular nodules bilaterally, particularly on the left upper lobe. Dense consolidation again seen in the left lower lobe, likely with underlying atelectasis. Moderate left pleural effusion, with pleural enhancement. Mediastinum, heart, and esophagus: No acute pulmonary embolism. Occlusion of the left-sided bronchi. No hiatal hernia. No pathologic adenopathy by size criteria. Small pericardial effusion. Chest wall and thyroid: Multiple thyroid nodules again seen. Upper abdomen: Unremarkable on these limited arterial phase images. Possible cholelithiasis. Bones: No acute or suspicious osseous finding. IMPRESSION: No acute pulmonary embolism. Bilateral infectious/inflammatory pulmonary nodules. Consolidation and likely atelectasis is seen in the left lower lobe, with upstream bronchial occlusion. There is also an enhancing moderate left pleural effusion. Findings are likely infectious/inflammatory. The left lower lobe finding is in the same position as August of 2022, consider also pulmonary consultation for possible bronchoscopy if indicated. Otherwise, surveillance imaging could also be obtained. Dictated by: Dequan Shin M.D. on 01/03/2023 at 22:52 Approved by: Dequan Shin M.D. on 01/03/2023 at 22:56
[2023-01-03] MEDS: DEXTROSE 5%-0.45NS W/KCL 20MEQ 1,000 ML 125 MEQ IV (22:21)
[2023-01-03] MEDS: CEFEPIME 2 GM in SODIUM CHLORIDE 0.9% 100 ML IV (22:22)
[2023-01-03] MEDS: VANCOMYCIN 1,500 MG/300 ML PIGGYBACK 200 MG IV (23:04)
[2023-01-04] VITALS (41 sets, daily range): BP systolic 104–145; BP diastolic 75–91; PULSE 72–94; RESP 18–49; O2SAT 94–99
--- NOTE | 2023-01-04 01:20 | PM.CN ---
History of Present Illness Consult details Date Patient Seen: 01/04/23 Time Patient Seen: 05:00 Chief complaint: labored breathing/fatigue/lots of flem Narrative: Mr. Christopher is a 42M with H pediatric glioblastoma, residual hemiparesis, pseudobulbar palsy who present switch cough, shortness of breath and weakness. Of note he was heere approximately four months ago with pneumonia and influeza A. He was noted to have left sided consolidation at the time. He felt somewhat better, but has had on and off cough and shortness of breath since. Early in November he was seen outpatient and diagnosed with pneumonia and started on antibiotics. A few weeks later at the end of November he was seen for the same issue and again prescribed antibiotics. He has not since completely recovered. In the ED workup was done, vitals notable for afebrile, heart rate 110s, respiratory rate 20s. Blood pressure 100s/70s. O2 sats 96% on room air. Labs reviewed and notable for WBC 18.5, hgb 13.0, plts 594. Creatinine 0.41. Procal 0.12. D-dimer 2141. CT imaging notes consolidation in same location as from an admission 5 months ago. He also had noted left pleural effusion with enhancement and notable consolidation on the left. He was ordered antibiotics. Consult was requested by ED physician and recommendation was given to attempt transfer to facility with bronch ability. Meds Home Medications and Allergies Home Medications Medication Instructions Recorded Confirmed Type Battery Powered Lift #1 ea 03/02/18 12/16/22 Rx Power Chair #1 ea 10/16/18 12/16/22 Rx Semi-electric hospital bed #1 ea 11/17/18 12/16/22 Rx Disabled Parking #1 ea 01/15/19 12/16/22 Rx Shower Chair #1 ea 07/04/19 12/16/22 Rx baclofen 5 mg tablet 5 mg PO DAILY 07/20/21 12/16/22 History onabotulinumtoxinA 100 unit 200 unit IM ONCE 07/20/21 12/16/22 History solution for injection (Botox) ferrous sulfate 325 mg (65 mg 130 mg PO DAILY 10/29/21 12/16/22 History iron) tablet XL mattress for semi-electric #1 ea 09/27/22 12/16/22 Rx hospital bed menthol 0.44 %-zinc oxide 20.6 % 1 applic topical QID PRN skin 09/27/22 12/16/22 Rx topical ointment (Calmoseptine) irritation #113 grams sertraline 100 mg tablet See Rx Instructions .Route 09/28/22 12/16/22 Rx .COMPLEX #45 tabs Allergies Allergy/AdvReac Type Severity Reaction Status Date / Time Penicillins [PENICILLINS] Allergy Severe RASH Verified 01/03/23 19:01 levofloxacin Allergy Intermediate Rash Verified 01/03/23 19:01 Review of Systems Review of Systems Narrative: 14 systems reviewed and negative aside from what is noted in HPI Exam Vital Signs (past 8 hours): - 01/03/23 18:38 01/03/23 19:39 01/03/23 19:39 Temperature 98.6 F Pulse Rate 112 H 110 H Respiratory Rate 26 H 31 H Blood Pressure 105/79 117/85 Pulse Oximetry 96 97 Oxygen Delivery Method Room Air 01/03/23 20:22 01/03/23 20:22 01/03/23 21:00 Temperature Pulse Rate 103 H Respiratory Rate 27 H Blood Pressure 112/78 119/85 Pulse Oximetry 96 Oxygen Delivery Method 01/03/23 21:00 Temperature Pulse Rate 95 H Respiratory Rate 25 H Blood Pressure Pulse Oximetry 97 Oxygen Delivery Method Oxygen Delivery Method Room Air Narrative Exam Narrative: GEN: no acute distress HEENT: moist mucous membranes, PERRL NECK: trachea midline, no JVD PULM: coarse breath sounds bilaterally, no wheezes, rhonchi, rales CV: tachycardic, no murmurs ABD: soft, nontender, nondistended, no organomegaly EXT: warm and well perfused with no edema NEURO: right greater than left weakness chronic as functional quadriplegia SKIN: right sacral bed sore Objective Labs 01/03/23 20:00 01/03/23 20:00 Labs: Laboratory Results - last 24 hr 01/03/23 01/03/23 01/03/23 20:00 20:00 20:00 WBC 18.5 H RBC 5.18 Hgb 13.0 L Hct 39.9 L MCV 77.1 L MCH 25.0 L MCHC 32.5 RDW 14.5 Plt Count 594 H Neut % (Auto) 85.9 H Lymph % (Auto) 7.2 L [place] % (Auto) 5.9 Eos % (Auto) 0.6 L Baso % (Auto) 0.4 Neut # (Auto) 71316 H Lymph # (Auto) 1300 [place] # (Auto) 1100 H Eos # (Auto) 100 Baso # (Auto) 100 PT 17.6 H INR 1.5 H APTT 46 H D-Dimer Sodium 134 L Potassium 4.8 Chloride 97 L Carbon Dioxide 22 BUN 8 L Creatinine 0.41 L Estimated GFR > 60 BUN/Creatinine Ratio 19.5 Glucose 60 L Lactate Calcium 9.4 Total Bilirubin 0.8 AST 17 ALT 11 Alkaline Phosphatase 136 H Total Protein 9.0 H Albumin 4.1 Globulin 4.9 H Albumin/Globulin Ratio 0.8 L Lipase 34 Procalcitonin 0.12 Chlamy pneumoniae PCR Adenovirus (PCR) B. pertussis DNA (PCR) B.parapertussis DNA PCR Coronavirus OC43 (PCR) Coronavirus HKU1 (PCR) Coronavirus 229E (PCR) SARS-CoV-2 (PCR) Coronavirus NL63 (PCR) Human Metapneumovir PCR Influenza Type A (PCR) Influenza Type B (PCR) M. pneumoniae (PCR) Parainfluenza 1 (PCR) Parainfluenza 2 (PCR) Parainfluenza 3 (PCR) Parainfluenza 4 (PCR) RSV (PCR) Entero/Rhino (PCR) 01/03/23 01/03/23 01/03/23 20:00 20:00 20:17 WBC RBC Hgb Hct MCV MCH MCHC RDW Plt Count Neut % (Auto) Lymph % (Auto) [place] % (Auto) Eos % (Auto) Baso % (Auto) Neut # (Auto) Lymph # (Auto) [place] # (Auto) Eos # (Auto) Baso # (Auto) PT INR APTT D-Dimer 2141 H Sodium Potassium Chloride Carbon Dioxide BUN Creatinine Estimated GFR BUN/Creatinine Ratio Glucose Lactate 1.5 Calcium Total Bilirubin AST ALT Alkaline Phosphatase Total Protein Albumin Globulin Albumin/Globulin Ratio Lipase Procalcitonin Chlamy pneumoniae PCR Not detected Adenovirus (PCR) Not detected B. pertussis DNA (PCR) Not detected B.parapertussis DNA PCR Not detected Coronavirus OC43 (PCR) Not detected Coronavirus HKU1 (PCR) Not detected Coronavirus 229E (PCR) Not detected SARS-CoV-2 (PCR) Not detected Coronavirus NL63 (PCR) Not detected Human Metapneumovir PCR Not detected Influenza Type A (PCR) Not detected Influenza Type B (PCR) Not detected M. 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 Father No problems noted. Social History marital status: unmarried,single household members: family Tobacco & Substance Use Smoking Status: Former smoker alcohol intake: never substance use type: marijuana Assessment & Plan Assessment & Plan narrative: 1. Acute hypoxic respiratory failure secondary to probable post-obstructive pneumonia -presented with respiratory distress, leukocytosis, consistent with pneumonia -CT imaging shows left sided consolidation and atelectasis with left bronchial obtruction -in addition there is a left pleural effusion with enhancement -compared to imaging in August 2022, the consolidation is in the exact same location -patient sees pulmonology who is concerned about aspiration pneumonia, but this location is not most typical for aspiration -begining in early november, presented with cough, sob consistent with pneumonia and since them respiratory symptoms are not resolving -overall clinical picture is concerning for nonresolving pneumonia secondary to obstructed airway leading to possible infected pleural effusion -recommend IV antibiotics with vancomycin and meropenem to cover many possible etiologies -given nonresolving nature of infection, am concerned that antibiotic therapy alone will not be adequate source control -recommend transfer to higher level of care with pulmonology to consider bronchoscopy -consider thoracentesis to evaluate infected pleural effusion, possibly exudative -if infected may need surgical evaluation 2. Depression -continue ssri 3. History glioma brain tumor with residual quadriplegia -stable I have discussed plan and obtained history from patient. I have discussed plan of care with ED physician. I have reviewed labs, imaging, and previous medical notes. CODE: Full Proxy: Marianela Paulino, mother
[2023-01-04] MEDS: MEROPENEM 1 GM in SODIUM CHLORIDE 0.9% 100 ML IV ×2 (02:01→16:35)
--- NOTE | 2023-01-04 02:34 | PC.NURSE ---
RESIDENTIAL INSTALLER note: Attempting to find placement for patient. Called the following hospitals and got the following responses: [facility]:[id number], Spoke to Diana. They're full. Sent a face sheet. On their wait list. [facility]: [id number]. They're full and boarding. No med surg meds. Sent face sheet. Put on wait list. [facility]: [address], can't take any patient unless they're a [facility] patient. Patient is not. [facility]: [id number]. No beds. Asked us to send a face sheet in case they have something open up. [facility] [address]. He is on their list.
[2023-01-04] MEDS: DEXTROSE 5%-0.45NS W/KCL 20MEQ 1,000 ML 125 MEQ IV (06:25)
[2023-01-04 06:40] LABS: Add Manual Diff / Slide Review NO; Basophils Absolute Auto 200 /uL (0-100); Basophils Percent Auto 1.3 % (0-2); Eosinophils Absolute Auto 200 /uL (0-450); Eosinophils Percent Auto 1.9 % (2-4); Hematocrit 32.3 % (41-53); Hemoglobin 10.5 g/dL (13.5-17.5); Lymphocytes Absolute Auto 1200 /uL (1100-4500); Lymphocytes Percent Auto 10.7 % (25-40); Mean Corpuscular HGB Conc 32.6 % (30-36); Mean Corpuscular Hemoglobin 25.2 PG (26-34); Mean Corpuscular Volume 77.4 fL (80-100); Monocytes Absolute Auto 700 /uL (0-900); Monocytes Percent Auto 6.3 % (3-14); Neutrophils Absolute Auto 9100 /uL (1500-7000); Neutrophils Percent Auto 79.8 % (50-75); Platelet Count 447 X10^3/uL (150-400); Red Blood Cell Count 4.18 X10^6/uL (4.5-5.9); Red Cell Distribution Width 14.1 % (11.6-14.8); White Blood Cell Count 11.4 X10^3/uL (4.5-11.0)
[2023-01-04 06:53] LABS: Alanine Aminotransferase 11 IU/L (<50); Albumin 3.1 g/dL (3.5-5.0); Albumin Globulin Ratio 0.8 (1.0-2.8); Alkaline Phosphatase 92 U/L (38-126); Aspartate Aminotransferase 14 IU/L (17-59); BUN Creatinine Ratio 13.2 (6-22); Bilirubin Total 0.3 mg/dL (0.2-1.3); Blood Urea Nitrogen 5 mg/dL (9-20); Calcium 8.2 mg/dL (8.4-10.2); Carbon Dioxide 29 mmol/L (22-32); Chloride 101 mmol/L (98-107); Estimated Glomerular Filt Rate > 60 mL/min (>60); Globulin 3.9 g/dL (1.7-4.1); Glucose 90 mg/dL (70-100); HEMOLYSIS < 15 (0-50); Sodium 133 mmol/L (137-145)
[2023-01-04] MEDS: VANCOMYCIN 1,000 MG/200 ML PIGGYBACK 167 MG IV ×3 (07:11→19:08)
[2023-01-04] MEDS: VANCOMYCIN PER PHARMACY 1 REQUEST MISC ×2 (07:20→07:21)
[2023-01-04] MEDS: MEROPENEM 500 MG in SODIUM CHLORIDE 0.9% 100 ML 200 MG IV (09:43)
[2023-01-04] MEDS: ENOXAPARIN 40 MG/0.4 ML SYRINGE SUBCUT (09:43)
--- NOTE | 2023-01-04 10:43 | PC.NURSE ---
CATALYST OPERATOR GASOLINE note helped pt. with breakfast after verifying and elevated hob prior while adding a cloth protector. pt. tried to eat a .5 inch of sinhala toast and stated i don't think i can swallow. offered milk and water and pt. was able to swallow. Told pt. I would ask his RN if the lunch order could be a liquid diet instead and pt. nodded his head in agreement. I offered pt. an ensure (protein drink supplement), pt. asked for vanilla and drank about 25% of the ensure. pt. asked about update on transferring to another hospital. updated the pt. that so far no new update as of 1030 this morning. pt. then stated i do not want to get better, i asked pt. to confirm the statement. pt. then stated i do want to feel better, it's just what i have to go through to get there i don't want to do. Pt. stated he was full. i advised pt. i would keep the hob elevated so he could continue to digest. offered call light and encouraged pt. to use.
--- NOTE | 2023-01-04 11:48 | PC.NURSE ---
pt was transferrred to hospital bed.
[2023-01-04] MEDS: SODIUM CHLORIDE 0.9% 1,000 ML 100 ML IV (17:52)
--- NOTE | 2023-01-04 18:30 | PC.NURSE ---
Late entry, on 01/04/23 while pt was being fed dinner by automation technician, pt aspirated on soft food. RN at bedside and RT called for deep suctioning. Pt de-satted to upper 80s during aspiration episode, but was able to recover to mid 90s after suctioning and repositioning. Dr. Perrin made aware of aspiration episode and verbal order for pt to be NPO. IVF ordered and initiated. Aspiration precautions in place. Oral hygiene performed by RN. Continuing to reposition pt q2 hours and assess for changes in pt condition.
--- NOTE | 2023-01-04 19:34 | PC.NURSE ---
Obtained patient care. Lab had not drawn Vanco Trough for 1829 ABX paused till labs drawn
[2023-01-04] MEDS: VANCOMYCIN TROUGH 1 REQUEST MISC (22:18)
[2023-01-04] MEDS: VANCOMYCIN PEAK 1 REQUEST MISC (22:19)
[2023-01-04 22:39] LABS: Vancomycin Peak 32.4 ug/mL (20-40)
[2023-01-05] VITALS (71 sets, daily range): BP systolic 109–144; BP diastolic 77–95; PULSE 74–93; RESP 16–35; TEMP 36.8; O2SAT 87–100
--- NOTE | 2023-01-05 | DI.RAD.S_ITS ---
PROCEDURE: XR CHEST FOR PICC 1V INDICATIONS: PICC PLACEMENT COMPARISON: [facility], [place], XR CHEST FOR PICC 1V, 01/05/2023, 21:29. [facility], [place], XR CHEST 1V, 01/05/2023, 19:39. FINDINGS: Left PICC terminates in the proximal SVC. Left opacities and small effusion again seen. IMPRESSION: Left PICC terminates in the proximal SVC. Dictated by: Dequan Shin M.D. on 01/05/2023 at 22:39 Approved by: Dequan Shin M.D. on 01/05/2023 at 22:40
[2023-01-05] MEDS: MEROPENEM 1 GM in SODIUM CHLORIDE 0.9% 100 ML IV ×3 (01:10→17:52)
[2023-01-05] MEDS: VANCOMYCIN 1,000 MG/200 ML PIGGYBACK 200 MG IV ×3 (01:41→18:40)
[2023-01-05 06:53] LABS: Add Manual Diff / Slide Review NO; Basophils Absolute Auto 100 /uL (0-100); Basophils Percent Auto 0.9 % (0-2); Eosinophils Absolute Auto 400 /uL (0-450); Eosinophils Percent Auto 3.8 % (2-4); Hematocrit 36.1 % (41-53); Hemoglobin 11.7 g/dL (13.5-17.5); Lymphocytes Absolute Auto 1100 /uL (1100-4500); Lymphocytes Percent Auto 10.6 % (25-40); Mean Corpuscular HGB Conc 32.3 % (30-36); Mean Corpuscular Hemoglobin 25.1 PG (26-34); Mean Corpuscular Volume 77.7 fL (80-100); Monocytes Absolute Auto 700 /uL (0-900); Monocytes Percent Auto 6.3 % (3-14); Neutrophils Absolute Auto 8200 /uL (1500-7000); Neutrophils Percent Auto 78.4 % (50-75); Platelet Count 430 X10^3/uL (150-400); Red Blood Cell Count 4.65 X10^6/uL (4.5-5.9); Red Cell Distribution Width 14.7 % (11.6-14.8); White Blood Cell Count 10.5 X10^3/uL (4.5-11.0)
[2023-01-05 07:05] LABS: Alanine Aminotransferase 8 IU/L (<50); Albumin 3.4 g/dL (3.5-5.0); Albumin Globulin Ratio 0.9 (1.0-2.8); Alkaline Phosphatase 102 U/L (38-126); Aspartate Aminotransferase 14 IU/L (17-59); BUN Creatinine Ratio 8.1 (6-22); Bilirubin Total 0.5 mg/dL (0.2-1.3); Blood Urea Nitrogen 3 mg/dL (9-20); Calcium 8.4 mg/dL (8.4-10.2); Carbon Dioxide 23 mmol/L (22-32); Chloride 104 mmol/L (98-107); Estimated Glomerular Filt Rate > 60 mL/min (>60); Globulin 3.9 g/dL (1.7-4.1); Glucose 55 mg/dL (70-100); HEMOLYSIS < 15 (0-50); Potassium 4.2 mmol/L (3.4-5.1); Sodium 133 mmol/L (137-145); Total Protein 7.3 g/dL (6.3-8.2)
[2023-01-05] MEDS: ENOXAPARIN 40 MG/0.4 ML SYRINGE SUBCUT (08:52)
--- NOTE | 2023-01-05 10:24 | PC.NURSE ---
Pt had episode where he appeared to feel in distress, eyes bulging and mouth open wide. This RN suctioned mouth/throat at the bedside. RT called to bedside to deep suction. Physician advised and agreed RT should deep suction.
[2023-01-05 13:57] LABS: Vancomycin Trough 25.2 ug/mL (10-20)
--- NOTE | 2023-01-05 17:36 | PC.NURSE ---
Received a critical value for this pt at 1340 today. Lab states Vanco Trough was high @ 25.2. Reported to physician right away. Advised Luis in pharmacy, as well. The dose of vanc scheduled for 1300 was held per physician and pharmacist.
--- NOTE | 2023-01-05 18:40 | PC.NURSE ---
Vanc administrations are off this afternoon due to nelson vanc trough and other antibiotic administrations that cannot be given at same time. wheel installer, Pharmacist and physician aware.
--- NOTE | 2023-01-05 19:01 | PC.NURSE ---
Pt had a bowel movement, bedding changed, sherwin care, barrier cream applied. RT called to the bedside for deep suctioning and chest percussion treatment. Mother at the bedside.
--- NOTE | 2023-01-05 19:17 | PC.NURSE ---
Spoke to physician about pt being NPO and plans going forward for nutrition. Physician was consulting inpatient hospitalist re: TPN. No update at this time. Will advise RN at 1915 shift change.
--- NOTE | 2023-01-05 19:18 | PC.NURSE ---
RT at bedside. Deep suctioning @ 1905. Pt requires additional deep suctioning but refused more at this time. RT placed pt on non-rebreather @ 15L per = 92%.
--- NOTE | 2023-01-05 19:20 | PC.NURSE ---
Have discussed nutrition status of this pt with ED physician throughout the day. Advised RN at shift change that physician has been consulting inpatient hospitalist re: TPN. Advised RN that DI nurse will be here soon to place a picc line for TPN. Pt requires TPN nutrition. Pt NPO for 24 hrs due to aspiration of food during a prior feeding. Pt AOx4. Physician and charge aware.
--- NOTE | 2023-01-05 19:43 | DI.RAD.S_ITS ---
PROCEDURE: XR CHEST 1V INDICATIONS: hypoxia aspiration TECHNIQUE: One view of the chest was acquired. COMPARISON: [facility], CT, CT ANGIO CHEST PE PROTOCOL, 01/03/2023, 21:58. [facility], CR, XR CHEST 1V, 01/03/2023, 18:52. [facility], CR, XR CHEST 2V, 12/28/2022, 16:25. FINDINGS: Patient is rotated to the left. Surgical changes and devices: None. Lungs and pleura: Patchy opacity in the left lung. Small left pleural effusion. Mediastinum: Mediastinal contours appear normal. Heart size is normal. Bones and chest wall: No suspicious bony lesions. Overlying soft tissues appear unremarkable. IMPRESSION: Patchy opacity in the left lung. Small left pleural effusion. Findings not felt to be significantly changed. Dictated by: Florin Witt M.D. on 01/05/2023 at 20:27 Approved by: Florin Witt M.D. on 01/05/2023 at 20:29
--- NOTE | 2023-01-05 21:29 | DI.RAD.S_ITS ---
PROCEDURE: XR CHEST FOR PICC 1V INDICATIONS: picc placed COMPARISON: [facility], [place], XR CHEST 1V, 01/05/2023, 19:39. [facility], CR, XR CHEST 1V, 01/03/2023, 18:52. FINDINGS: Left-sided PICC is present appears to turn around the region of the subclavian/brachiocephalic region. The terminus projects over the clavicle. Small left effusion and left lung opacities again seen. IMPRESSION: PICC appears malpositioned, consider replacement. Dictated by: Dequan Shin M.D. on 01/05/2023 at 21:48 Approved by: Dequan Shin M.D. on 01/05/2023 at 21:51
[2023-01-06] VITALS (34 sets, daily range): BP systolic 102–126; BP diastolic 65–90; PULSE 82–104; RESP 22–31; O2SAT 95–100
[2023-01-06] MEDS: VANCOMYCIN 1,000 MG/200 ML PIGGYBACK 200 MG IV ×2 (00:18→09:54)
[2023-01-06] MEDS: MEROPENEM 1 GM in SODIUM CHLORIDE 0.9% 100 ML IV ×2 (00:18→08:57)
--- NOTE | 2023-01-06 02:11 | PC.NURSE ---
0200 01/06/2023 Pt on waitlist with VM spoke with Evan @ [facility]
[2023-01-06] MEDS: DEXTROSE 50 % IN WATER 25 GM/50 ML SYRINGE IV (07:44)
[2023-01-06] MEDS: DEXTROSE 5%-0.45NS W/KCL 20MEQ 1,000 ML 125 MEQ IV ×2 (07:48→15:31)
[2023-01-06] MEDS: ENOXAPARIN 40 MG/0.4 ML SYRINGE SUBCUT (07:55)
--- NOTE | 2023-01-06 07:56 | PC.NURSE ---
Received report on patient from PERCY Weston. Arrived into room with pt eyes open. NS infusing at 100ml/hr. Noted that pt had order for D5 1/2 NS 20meq K+ which has not been infusing since 01/03/23. Noted that glucose at 0640 on 01/05/23 was 55 without intervention. POC glucose checked and < 20. Dr Harrell made aware and 1amp D50 administered via PICC line and D5 1/2 NS with 20meq K+ started at 125ml/hr per order. Inquired about TPN via PICC and ordered received. Pt awake and alert, difficult to understand however able to communicate appropriately with staff on needs, HR 87 NSR, 95% RA--was previously on oxymask overnight and weaned. Lungs with some fine crackles. Dr Harrell at bedside to evaluate. Passive ROM preformed and incontinence care provided with brief change. Noted to have allevyn dressing on coccyx dressed yesterday. Left intact and not soiled. Barrier cream applied and pt turned. Call button in reach. Bed lowest position. Repeat glucose 118.
[2023-01-06 08:00] LABS: Add Manual Diff / Slide Review NO; Basophils Absolute Auto 100 /uL (0-100); Basophils Percent Auto 0.6 % (0-2); Eosinophils Absolute Auto 100 /uL (0-450); Eosinophils Percent Auto 1.2 % (2-4); Hematocrit 33.2 % (41-53); Hemoglobin 10.8 g/dL (13.5-17.5); Lymphocytes Absolute Auto 700 /uL (1100-4500); Lymphocytes Percent Auto 6.1 % (25-40); Mean Corpuscular HGB Conc 32.6 % (30-36); Mean Corpuscular Volume 76.7 fL (80-100); Monocytes Absolute Auto 200 /uL (0-900); Monocytes Percent Auto 1.9 % (3-14); Neutrophils Absolute Auto 9700 /uL (1500-7000); Neutrophils Percent Auto 90.2 % (50-75); Platelet Count 366 X10^3/uL (150-400); Red Blood Cell Count 4.33 X10^6/uL (4.5-5.9); Red Cell Distribution Width 14.5 % (11.6-14.8); White Blood Cell Count 10.8 X10^3/uL (4.5-11.0)
[2023-01-06 08:13] LABS: Alanine Aminotransferase 8 IU/L (<50); Albumin 2.9 g/dL (3.5-5.0); Albumin Globulin Ratio 0.9 (1.0-2.8); Alkaline Phosphatase 93 U/L (38-126); Aspartate Aminotransferase 14 IU/L (17-59); BUN Creatinine Ratio 7.1 (6-22); Bilirubin Total 0.3 mg/dL (0.2-1.3); Blood Urea Nitrogen 2 mg/dL (9-20); Calcium 7.9 mg/dL (8.4-10.2); Carbon Dioxide 19 mmol/L (22-32); Chloride 101 mmol/L (98-107); Estimated Glomerular Filt Rate > 60 mL/min (>60); Globulin 3.4 g/dL (1.7-4.1); Glucose 166 mg/dL (70-100); HEMOLYSIS < 15 (0-50); Potassium 3.6 mmol/L (3.4-5.1); Sodium 130 mmol/L (137-145); Total Protein 6.3 g/dL (6.3-8.2)
[2023-01-06 08:29] LABS: Procalcitonin 0.11 ng/mL (<0.5)
--- NOTE | 2023-01-06 09:31 | PC.NURSE ---
Addendum entered by Alberta Villalta CNA 01/06/23 12:46: Update: Pt is accpeted at [facility] by Dr. Belle and NWA will arrive around 1450. Original Note: STEFANO Note: Pt is still on waitlists for [facility], [facility] & . Will call back again in the afternoon with any updates on placements after discharges.
--- NOTE | 2023-01-06 11:01 | ST.IPCSEOM ---
Visit Care Team Role Provider Type Nargis Fernandez DO Primary Care Provider Physician Specialty: Family Practice Address: [address] [place] [address], [facility] [place], [address] Email: [email or web address] Gupta DO Other Providers Physician Specialty: Internal Medicine Address: [address] [place] [address], [facility] Email: [email or web address] [email or web address] Guzman MD Other Providers Physician Specialty: Hospitalist Address: [address] [place] [address], [phone] Fax: Email: [email or web address] Wendie Harrell DO Emergency Provider Physician Specialty: Emergency Medicine Address: [address] [place] [address], [facility] Email: [email or web address] Past Medical History (Last Reviewed 01/04/23 @ 01:20 by Roby Guzman MD) Anemia (Medical) Cerebral palsy (Medical) Depression (Medical) Difficulty with speech (Medical) Dysarthria (Medical) Former smoker (Social Hx) Gingivitis (Medical) Glioma (Medical) Age 5, inoperable, 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[facility], residual right hemiparesis Hemiparesis (Medical ~1984) Right, s/p glioma age 5, s/p radiation Pneumonia (Medical) 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 Pt is well known to this MANAGER UNDERWRITING having seen him in outpatient and when he has been admitted to . Pt has a PMH of aspiration without reflexive cough. In the past, the pt has refused recommended alternative feeding due to high aspiration risk. Pt has insisted in the past that he wants to eat. Pt's PMH includes cerebral palsy, pediatric glioblastoma and is a functional quadraplegic and wheelchair bound. Pt was admitted on 01/03/23 with t the end of November did not seem to completely improve. He is to the point where he has difficulty laying flat, if he is lying on his left side he is unable to breathe at all, increasing weakness and cough. Subjective Observations Pt was in bed today in the ED with HOB elevated. Pt was having difficulty with coughing; his cough was very weak. Per nursing pt has been asking for food. pt looks like he has lost a lot of weight. Reported by Patient Other Symptoms Coughing,History of aspiration or pneumonia,Weight loss Comment Last recommended diet was puree with nectar thick liquids (11/25/21). Per pt history, he has eaten whatever he wants and drinks thin liquids. Unknown what current diet is at home. Baseline Feeding Method Needs some assistance Objective Assessment Mental Status Responsive,Cooperative, Lethargic Comment Pt has poor oromotor control, strength and diminished AP transition of bolus. Dentition is natural in poor hygiene with decay. Food and Liquid Trials Oral Phase Comments No trials presented as pt currently NPO and has PMH of high aspiration risk Pharyngeal Impairment Within functional limits Pharyngeal Phase Comments No trials presented as pt currently NPO and has PMH of high aspiration risk Fatigue/Endurance Moderate fatigue Findings Swallowing Function Oropharyngeal phase dysphagia Severity of Swallow Impairment Severely impaired Contributing Factors to Swallow Reduced oral strength/ Impairment coordination/sensation, Mastication inefficiency, Impaired oral-pharyngeal transport,Impaired velopharyngeal closure/ coordination,Delayed swallow initiation,Reduced laryngeal excursion,Impaired airway protection,Excessive pharyngeal residue Comments Per prior MANAGER UNDERWRITING notes and MBSS results Prognosis Poor Based on Cognitive status,Bed bound, History of aspiration/ aspiration pneumonia, Comorbidities,Duration of symptoms/severity Impact on Safety and Functioning Risk for aspiration,Risk for inadequate nutrition/hydration Recommendations Instrumental Assessment No Swallowing Treatment Yes Frequency F/U family/patient education as indicated Recommended Solids Nothing by Mouth Recommended Liquids Nothing by Mouth Other Recommendations Per pt history and current admission dx, pt continues to be high aspiration risk. Continued NPO is recommended with recommendation for alternative feeding secondary to recurrent pneumonia and high aspiration risk. 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 Alternative feeding recommended due to high aspiration risk.
--- NOTE | 2023-01-06 11:06 | PM.PN.1 ---
Subjective Subjective Date Patient Seen: 01/06/23 Time Patient Seen: 11:45 Interval history: Mr. Christopher is a 42M with H pediatric glioblastoma, residual hemiparesis, pseudobulbar palsy with chronic aspiration who was recommended for transfer, but unable to find another facility bed at this time. He has been NPO, hospitalist asked to evaluate today. Discussed with speech therapy, there is concern for aspiration risk even with a PEG, and recommend J tube instead, not performed at [facility] (Discussed with surgery today). He will start TPN tonight, ideally would do tube feeds though there is concern for aspiration with NG tube. When I evaluated the patient, he was on room air saturating in the upper 90s, though I suspect he does desaturate intermittently. He feels much improved today, no trouble breathing, chest pain, nausea. He was agreeable with feeding tube placement, though he does wish to continue to eat despite his obvious risk. Exam Vital Signs (past 8 hours): - 01/06/23 03:30 01/06/23 04:00 01/06/23 04:30 Pulse Rate 86 85 86 Respiratory Rate 24 23 23 Blood Pressure Pulse Oximetry 100 100 100 Oxygen Delivery Method 01/06/23 05:00 01/06/23 05:30 01/06/23 05:39 Pulse Rate 104 H 84 Respiratory Rate 31 H 23 Blood Pressure 116/85 Pulse Oximetry 95 100 Oxygen Delivery Method 01/06/23 05:39 01/06/23 06:00 01/06/23 06:00 Pulse Rate 88 84 Respiratory Rate 24 26 H Blood Pressure 113/82 Pulse Oximetry 100 100 Oxygen Delivery Method 01/06/23 06:30 01/06/23 07:00 01/06/23 07:30 Pulse Rate 82 83 85 Respiratory Rate 24 24 26 H Blood Pressure Pulse Oximetry 100 99 95 Oxygen Delivery Method Room Air Fraction of Inspired Oxygen 21 SaO2/FiO2 Ratio 457 Oxygen Delivery Method Room Air Oxygen Flow Rate 15 Narrative Exam Narrative: GEN: no acute distress, O2 via face mask currently HEENT: moist mucous membranes, PERRL NECK: trachea midline, no JVD PULM: coarse breath sounds bilaterally, no wheezes, rhonchi, rales CV: RRR, no murmurs ABD: soft, nontender, nondistended, no organomegaly EXT: warm and well perfused with no edema NEURO: right greater than left weakness chronic as functional quadriplegia Objective Labs 01/06/23 07:50 01/06/23 07:50 Labs: Laboratory Results - last 24 hr 01/05/23 01/06/23 01/06/23 12:18 07:50 07:50 WBC 10.8 RBC 4.33 L Hgb 10.8 L Hct 33.2 L MCV 76.7 L MCH 25.0 L MCHC 32.6 RDW 14.5 Plt Count 366 Neut % (Auto) 90.2 H Lymph % (Auto) 6.1 L [place] % (Auto) 1.9 L Eos % (Auto) 1.2 L Baso % (Auto) 0.6 Neut # (Auto) 9700 H Lymph # (Auto) 700 L [place] # (Auto) 200 Eos # (Auto) 100 Baso # (Auto) 100 Sodium 130 L Potassium 3.6 Chloride 101 Carbon Dioxide 19 L BUN 2 L Creatinine 0.28 L Estimated GFR > 60 BUN/Creatinine Ratio 7.1 Glucose 166 H D Calcium 7.9 L Total Bilirubin 0.3 AST 14 L ALT 8 Alkaline Phosphatase 93 Total Protein 6.3 Albumin 2.9 L Globulin 3.4 Albumin/Globulin Ratio 0.9 L Procalcitonin Vancomycin Trough 25.2 H* 01/06/23 07:50 WBC RBC Hgb Hct MCV MCH MCHC RDW Plt Count Neut % (Auto) Lymph % (Auto) [place] % (Auto) Eos % (Auto) Baso % (Auto) Neut # (Auto) Lymph # (Auto) [place] # (Auto) Eos # (Auto) Baso # (Auto) Sodium Potassium Chloride Carbon Dioxide BUN Creatinine Estimated GFR BUN/Creatinine Ratio Glucose Calcium Total Bilirubin AST ALT Alkaline Phosphatase Total Protein Albumin Globulin Albumin/Globulin Ratio Procalcitonin 0.11 Vancomycin Trough [facility] Medical History Anemia Cerebral palsy Depression Difficulty with speech Dysarthria Former smoker Gingivitis Glioma Hemiparesis (~1984) Pneumonia 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 Father No problems noted. Social History marital status: unmarried,single household members: family Smoking Status: Former smoker alcohol intake: never substance use type: marijuana Assessment & Plan Assessment & Plan narrative: 1. Acute hypoxic respiratory failure secondary to probable post-obstructive pneumonia or chronic aspiration -presented with respiratory distress, leukocytosis, consistent with pneumonia -CT imaging shows left sided consolidation and atelectasis with left bronchial obtruction -in addition there is a left pleural effusion with enhancement -compared to imaging in August 2022, the consolidation is in the exact same location -patient sees pulmonology who is concerned about aspiration pneumonia, he does chronically aspirate after discussion with speech therapy today. -begininng in early november, presented with cough, sob consistent with pneumonia and since them respiratory symptoms are not resolving -overall clinical picture is concerning for nonresolving pneumonia secondary to obstructed airway leading to possible infected pleural effusion, or chronic aspiration -IV antibiotics with vancomycin and meropenem to cover many possible etiologies. Cultures thus far negative. Will look to narrow today. If MRSA swab is negative, can discontinue vanco. Consider de-escalation from meropenem, though patient has penicillin and fluoroquinolone allergy. -given nonresolving nature of infection, am concerned that antibiotic therapy alone will not be adequate source control. He needs possibly pulmonary evaluation but certainly more permanent feeding options at this time. -recommend transfer to higher level of care with pulmonology to consider bronchoscopy, as well as placement of J tube for chronic nutrition supplementation which is not performed at [facility] (discussed with general surgery). -consider thoracentesis to evaluate infected pleural effusion, possibly exudative though this seems stable and respiratory failure is improving 2. Depression -holding ssri for aspiration risk. 3. History glioma brain tumor with residual quadriplegia -stable I have discussed plan and obtained history from patient. Additional history obtained via care management team, speech therapy, general surgery. I have discussed plan of care with ED physician. I have reviewed labs, imaging, and previous medical notes. CODE: Full Proxy: Marianela Paulino, mother Dispo: continue to recommend transfer to higher level facility for pulmonology consultation, with recommendation from speech therapy here for J tube placement rather than gastric.
[2023-01-06 11:28] LABS: Magnesium 1.6 mg/dL (1.6-2.3); Phosphorous 2.4 mg/dL (2.5-4.5); Triglycerides 80 mg/dL (35-150)
--- NOTE | 2023-01-06 11:35 | DIET.CONS ---
Dietary Consultation Note Assessment: 42y M admitted for labored breathing screened by RD for prolonged NPO status in ED. Pt with severe weight loss since last admission (-12% in 4mo, unintentional) along with persistent pneumonia. Pt's recommended diet is strict NPO using artificial nutrition due to high aspiration risk and weak cough reflex at baseline, however, pt has been resistant to this with secondary reccs as Puree diet with honey thick liquids which pt often not compliant with. Due to pts high aspiration risk and results of past modified barium swallow, pt would benefit from placement of PEJ feeding tube to meet nutrition and hydration needs. Pt to start continuous TPN this evening per collaborative protocol via PICC as pt is NPO x5d with malnutrition. Pt to start on 1L Clinimix E running at 42mL/h with 100mg thiamine and electrolyte repletion per pharmacy. Ht: 182.88 cm Wt: 68 kg BMI: 20.3 UBW: 72-108kg Last BM: () MNA: Krishan Score: Diet: 01/03/23 18:54 NPO Diet Diet Modifications: NPO Type: NPO except for Meds 01/04/23 Breakfast General (Regular) Diet Diet Modifications: Labs: RBC 4.33 X10^6/uL (4.5-5.9) L 01/06/23 07:50 Hgb 10.8 g/dL (13.5-17.5) L 01/06/23 07:50 Hct 33.2 % (41-53) L 01/06/23 07:50 Creatinine 0.28 mg/dL (0.66-1.25) L 01/06/23 07:50 Lactate 1.5 mmol/L (0.7-2.1) 01/03/23 20:00 Nutrition Diagnosis: Severe Acute Protein Calorie Malnutrition r/t inability to meet nutrition needs orally aeb 12% unintentional weight loss in 4mo (severe), pt with instrumental assessment recommending strict NPO due to aspiration at baseline, pt with prolonged course of pneumonia and hx hospital admission for same. Interventions: EER: 2,000 kcals/d (30kcal/kg per PCM), 80-90g PRO (1.1-1.4g/kg per PCM) Monitoring/Evaluations: POC Electronically Signed by: Laura Interiano 01/06/23 11:[address] [address]
[2023-01-06 13:56] LABS: MRSA (Nasal) PCR DETECTED (Not Detect)
--- NOTE | 2023-01-06 15:46 | PC.NURSE ---
Report given to NWChanel RN and pt transported to . Incontinence care provided. pt with dark green BM sent for GI Panel. Meropenum due at 1600 and unable to obtain from pharmacy at this time.
--- NOTE | 2023-01-06 16:10 | PC.NURSE ---
1530: attempted to call report and RN busy, Spoke to Diana at transfer center who advised RN will call back. Advised pt left at 1530 and will be there by [phone].
--- NOTE | 2023-01-06 16:56 | PC.NURSE ---
Report to [facility] RN at 1700.
[2023-01-06 17:12] LABS: Adenovirus F 40/41 Not Detected (Not Detect); Astrovirus Not Detected (Not Detect); Campylobacter Not Detected (Not Detect); Clostridium difficile toxin AB Not Detected (Not Detect); Cryptosporidium Not Detected (Not Detect); Cyclospora cayetanensis Not Detected (Not Detect); Entamoeba histolytica Not Detected (Not Detect); Enteroaggregative E.coli Not Detected (Not Detect); Enteropathogenic E.coli Not Detected (Not Detect); Enterotoxigenic E.coli It/st Not Detected (Not Detect); Giardia lamblia Not Detected (Not Detect); Norovirus GI/GII Not Detected (Not Detect); Plesiomonsa shigelloides Not Detected (Not Detect); Rotavirus A Not Detected (Not Detect); Salmonella Not Detected (Not Detect); Sapovirus Not Detected (Not Detect); Shiga-like toxin-prod E.coli Not Detected (Not Detect); Shigella/Enteroinvasive E.coli Not Detected (Not Detect); Vibrio Not Detected (Not Detect); Vibrio cholerae Not Detected (Not Detect); Yersinia enterocolitica Not Detected (Not Detect)
== END 2023-01-06 15:30 | disposition short-term general hospital (02) ==
PROVIDERS: Emergency Medicine; Internal Medicine; Emergency Provider Emergency Medicine; PCP Family Medicine
DX: J15.9 Unspecified bacterial pneumonia (principal); J90 Pleural effusion, not elsewhere classified; T17.908A Unspecified foreign body in respiratory tract, part unspecified causing other injury, initial encounter
CPT/HCPCS: 36415; 71045; 71275; 80053; 80202; 81003; 82962; 83605; 83690; 83735; 84100; 84134; 84145; 84478; 85025; 85379; 85610; 85730; 87040; 87507; 87633; 87797; 92610; 93005; 93010; 94667; 94799; 96361; 96365; 96366; 96367; 99284; 99285; J0692; J1650; J2185; Q9967

== ENCOUNTER → 2023-01-31 08:28 | Outpatient (CLI) | payer MEDICAID, SELFPAY ==
[2023-01-24 14:04] VITALS: PULSE 63; RESP 18; O2SAT 100; BMI 23.0
[2023-01-31 10:16] LABS: Adenovirus F 40/41 Not Detected (Not Detect); Astrovirus Not Detected (Not Detect); Campylobacter Not Detected (Not Detect); Clostridium difficile toxin AB Not Detected (Not Detect); Cryptosporidium Not Detected (Not Detect); Cyclospora cayetanensis Not Detected (Not Detect); Entamoeba histolytica Not Detected (Not Detect); Enteroaggregative E.coli Not Detected (Not Detect); Enteropathogenic E.coli Not Detected (Not Detect); Enterotoxigenic E.coli It/st Not Detected (Not Detect); Giardia lamblia Not Detected (Not Detect); Norovirus GI/GII Not Detected (Not Detect); Plesiomonsa shigelloides Not Detected (Not Detect); Rotavirus A Not Detected (Not Detect); Salmonella Not Detected (Not Detect); Sapovirus Not Detected (Not Detect); Shiga-like toxin-prod E.coli Not Detected (Not Detect); Shigella/Enteroinvasive E.coli Not Detected (Not Detect); Vibrio Not Detected (Not Detect); Vibrio cholerae Not Detected (Not Detect); Yersinia enterocolitica Not Detected (Not Detect)
== END ==
PROVIDERS: PCP Family Medicine; Referring Provider Family Medicine; Visit Provider Family Medicine
DX: G12.29 Other motor neuron disease (principal); G81.91 Hemiplegia, unspecified affecting right dominant side; R19.7 Diarrhea, unspecified
CPT/HCPCS: 87507

== ENCOUNTER 2023-02-02 20:02 | Emergency (ER) | payer MEDICAID, SELFPAY ==
[2023-01-24 14:04] VITALS: PULSE 63; RESP 18; O2SAT 100; BMI 23.0
[2023-02-02] VITALS (35 sets, daily range): BP systolic 80–148; BP diastolic 31–99; PULSE 95–142; RESP 16–45; TEMP 36.5–37.1; O2SAT 79–100; BMI 19.1
--- NOTE | 2023-02-02 | DI.RAD.S_ITS ---
PROCEDURE: XR CHEST 1V INDICATIONS: PLACEMENT TECHNIQUE: One view of the chest was acquired. COMPARISON: [facility], CR, XR CHEST 1V, 02/02/2023, 20:07. FINDINGS: Surgical changes and devices: There is a new endotracheal tube with the tip approximately 2 cm from the jessy. Lungs and pleura: There are persistent patchy airspace opacities throughout the left lung and medially in the right lung base with areas of confluence medially in the left upper and lower lung zones. There is a persistent small left pleural effusion. Mediastinum: Mediastinal contours appear unchanged. Heart size is normal. Bones and chest wall: No suspicious bony lesions. Overlying soft tissues appear unremarkable. IMPRESSION: 1. Endotracheal tube tip approximately 2 cm from the jessy. Recommend withdrawal by approximately 2 cm. Findings discussed with Dr. Llamas on 01/23/2023 at 11:00 p.m. Dictated by: Damien Shanks M.D. on 02/02/2023 at 23:00 Approved by: Damien Shanks M.D. on 02/02/2023 at 23:02
--- NOTE | 2023-02-02 | DI.RAD.S_ITS ---
PROCEDURE: XR ABDOMEN 1V INDICATIONS: OG PLACEMENT TECHNIQUE: One view of the abdomen acquired. COMPARISON: [facility], CR, XR CHEST 1V, 02/02/2023, 22:14. FINDINGS: Surgical changes and devices: There is an orogastric tube extending into the region of the gastric antrum. Bowel: Bowel gas pattern appears within normal limits. Small left pleural effusion redemonstrated as well as confluent left retrocardiac consolidation or atelectasis. There are patchy nodular opacities throughout the left lung and medially in the right lung base consistent with an infectious or inflammatory process, likely atypical pneumonia. The Soft tissues: No suspicious abdominal calcifications. Bones: No suspicious bony lesions. IMPRESSION: 1. Orogastric tube extends into the region of the gastric antrum. Dictated by: Damien Shanks M.D. on 02/03/2023 at 0:12 Approved by: Damien Shanks M.D. on 02/03/2023 at 0:13
--- NOTE | 2023-02-02 20:18 | DI.RAD.S_ITS ---
PROCEDURE: XR CHEST 1V INDICATIONS: Dyspnea TECHNIQUE: One view of the chest was acquired. COMPARISON: [facility], CR, XR CHEST 1V, 01/03/2023, 18:52. [facility], CT, CT ANGIO CHEST PE PROTOCOL, 01/03/2023, 21:58. [facility], CR, XR CHEST 1V, 01/05/2023, 19:39. [facility], CR, XR CHEST FOR PICC 1V, 01/05/2023, 22:12. FINDINGS: Surgical changes and devices: None. Lungs and pleura: Multiple clustered pulmonary nodules throughout the left lung with areas of confluence medially in the left upper lobe appear increased compared to the prior studies. Confluent consolidation or atelectasis also demonstrated in the left retrocardiac region. There are a few clustered ground-glass nodules also demonstrated within the right lung base. There is a persistent small left pleural effusion. No pneumothorax. Mediastinum: Mediastinal contours appear unchanged. Heart size is normal. Bones and chest wall: No suspicious bony lesions. Overlying soft tissues appear unremarkable. IMPRESSION: 1. Increased clustered ground-glass nodules in the left lung with areas of confluence medially. Milder involvement also demonstrated in the medial right lung base. The findings are again consistent with an infectious or inflammatory process, likely atypical pneumonia. 2. Persistent small left pleural effusion. Dictated by: Damien Shanks M.D. on 02/02/2023 at 21:02 Approved by: Damien Shanks M.D. on 02/02/2023 at 21:05
[2023-02-02] MEDS: ALBUTEROL/IPRATROPIUM 3 ML AMPUL INH (20:20)
--- NOTE | 2023-02-02 20:27 | ED.SOB ---
HPI - SOB/Dyspnea General Chief Complaint: Shortness of Breath/Dyspnea Stated Complaint: O2 @ 88, High HR Time Seen by Provider: 02/02/23 20:16 Source: patient and family Mode of arrival: Wheelchair Limitations: no limitations History of Present Illness HPI Narrative: Patient brought here by mother for complaints of shortness of breath and coughing. Ongoing 2 or 3 days. Patient was here in December for same complaint for aspiration pneumonia. Respiratory therapy services knows him very well here. He has been intubated once before according to mother. They desire not to be intubated at this time if possible but if necessitates then mother states we will need to intubate. At this time patient according to respiratory therapist usually benefits with repeated breathing treatments and Solu-Medrol. Patient has history of cerebral palsy with respiratory failure. 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 Patient has history aspiration pneumonia. He does have a feeding tube. Mother states they were decreasing the feeds as they were concern for aspiration pneumonia again. Vital signs noted. Very coarse lung sounds right greater than left. Tachypneic and tachycardic. Related Data Home Medications Medication Instructions Recorded Confirmed onabotulinumtoxinA 100 unit 200 unit IM ONCE 07/20/21 01/20/23 solution for injection (Botox) ferrous sulfate 325 mg (65 mg 130 mg PO DAILY 10/29/21 01/20/23 iron) tablet Previous Rx's Medication Instructions Recorded Battery Powered Lift #1 ea 03/02/18 Power Chair #1 ea 10/16/18 Semi-electric hospital bed #1 ea 11/17/18 Disabled Parking #1 ea 01/15/19 Shower Chair #1 ea 07/04/19 XL mattress for semi-electric #1 ea 09/27/22 hospital bed menthol 0.44 %-zinc oxide 20.6 % 1 applic topical QID PRN skin 09/27/22 topical ointment (Calmoseptine) irritation #113 grams Mattress #1 ea 01/20/23 baclofen 5 mg/5 mL oral solution 5 mg (5 mL) PO DAILY #473 mL 01/20/23 sertraline 20 mg/mL oral 150 mg (7.5 mL) PO DAILY 30 days 01/20/23 concentrate #225 mL Allergies Allergy/AdvReac Type Severity Reaction Status Date / Time Penicillins [PENICILLINS] Allergy Severe RASH Verified 01/03/23 19:01 levofloxacin Allergy Intermediate Rash Verified 01/03/23 19:01 Review of Systems Review of Systems Narrative: GENERAL: negative chills, fatigue, malaise, fever, sweats. HEENT: negative sinus pain, ear pain, sore throat RESPIRATORY: Positive dyspnea, cough CARDIOVASCULAR: negative chest pain, palpitations GASTROINTESTINAL: negative nausea, vomiting, abdominal pain : negative dysuria, frequency, hematuria MUSCULOSKELETAL: negative muscle or bony pain SKIN: negative rash, skin lesions NEUROLOGIC: negative weakness, numbness ROS Unobtainable: All systems reviewed & are unremarkable except as noted in HPI and below Patient History Medical History Anemia Cerebral palsy Depression Difficulty with speech Dysarthria Former smoker Gingivitis Glioma Hemiparesis (~1984) Influenza A Jejunostomy tube present Pneumonia 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 Father No problems noted. Social History marital status: unmarried,single household members: family Smoking Status: Former smoker alcohol intake: never substance use type: marijuana Smoking Status: Former smoker alcohol intake frequency: 0-2 drinks per day Substance Use Type: marijuana Exam Narrative Exam Narrative: GENERAL: in no distress, not toxic not dyspneic HEAD: Normocephalic. EYES: Pupils equal round ENT: Mucous membranes moist. NECK: Trachea midline. CARDIOVASCULAR: Tachycardia with Regular rate and rhythm without murmurs RESPIRATORY: Patient is in respiratory distress/moderate, however breathing treatments being started. Very very coarse lung sounds right greater than left. Rhonchi present. Mother states this is his usual presentation when he comes here. This is not the worse he has been. Respiratory therapist agrees. GASTROINTESTINAL: Abdomen soft, non-tender EXTREMITIES: No gross deformities. NEURO: Patient interacting at baseline per mother. SKIN: Warm and dry PSYCH: Does appear anxious, is cooperative Initial Vital Signs Initial Vital Signs: Vital Signs Temperature 97.9 F 02/02/23 20:14 Pulse Rate 139 H 02/02/23 20:14 Respiratory Rate 40 H 02/02/23 20:14 Blood Pressure 128/82 02/02/23 20:14 Pulse Oximetry 93 02/02/23 20:14 Oxygen Delivery Method Room Air 02/02/23 20:14 Procedures Central Line Placement Right Femoral: Time of procedure: 03:45 Time Out Performed: Yes Patient Placed on Monitor/Pulse Ox: Yes MD Prep: mask, gown and gloves Central Line Prep: Chlorhexidine scrub and sterile drapes applied Ultrasound Used for Placement: Yes Central Line Lumen Inserted: triple Post Procedure: sutured in place, good blood return, all ports aspirated, flushed, capped, sterile dressing applied and line stabilization device Patient Tolerated Procedure: Well and No complications Intubation Time of Intubation: 22:57 Time out performed: Yes sedative: Etomidate Mg Given: 20 Laryngoscope: other ([place] scope) ET Tube Size: 7 ET Tube Uncuffed: No Tube Secured Depth (cm): 22 Tube Secured Location: teeth Tube Placement Confirmation: Visualized tube passing through cords, Equal breath sounds bilaterally, No breath sounds over epigastrium, Confirmation by capnometry and Chest Xray Patient Tolerated Procedure: Well and No complications Intubation Complications: none Course Orders Ordered: ED Orders 02/03/23 23:00 Arterial Blood Gas Daily Discontinued Medications Albuterol (Albuterol 2.5 Mg/3 Ml Neb (Adult)) 5 mg INH NOW ONE Stop: 02/02/23 20:26 Last Admin: 02/02/23 21:13 Dose: 5 mg Documented By: MR Albuterol/Ipratropium (Albuterol/Ipratropium 3 Ml Ampul) 3 ml INH NOW ONE Stop: 02/02/23 20:19 Last Admin: 02/02/23 20:20 Dose: 3 ml Documented By: MR Chlorhexidine Gluconate (Chlorhexidine Gluconate 15 Ml Cup) 15 ml PO Q6HR [facility] Last Admin: 02/03/23 06:06 Dose: Not Given Documented By: Admin: 02/03/23 01:29 Dose: Not Given Documented By: Chlorhexidine Gluconate (Chlorhexidine Gluconate 15 Ml Cup) 15 ml PO Q6HR [facility] Last Admin: 02/03/23 06:07 Dose: Not Given Documented By: Admin: 02/03/23 01:29 Dose: Not Given Documented By: Fentanyl (Fentanyl 100 Mcg/2 Ml Inj) 50 mcg IV NOW ONE Stop: 02/02/23 22:15 Last Admin: 02/02/23 22:14 Dose: 50 mcg Documented By: Fentanyl (Fentanyl 100 Mcg/2 Ml Inj) 50 mcg IV NOW ONE Stop: 02/02/23 22:16 Last Admin: 02/02/23 22:15 Dose: 50 mcg Documented By: Fentanyl (Fentanyl 100 Mcg/2 Ml Inj) 50 mcg IV NOW ONE Stop: 02/02/23 22:28 Last Admin: 02/02/23 23:00 Dose: Not Given Documented By: BS Fentanyl (Fentanyl 100 Mcg/2 Ml Inj) 100 mcg IV NOW ONE Stop: 02/02/23 22:28 Last Admin: 02/02/23 22:28 Dose: 100 mcg Documented By: BS Meropenem 500 mg/ Sodium (Chloride) 100 mls @ 200 mls/hr IV NOW ONE Stop: 02/02/23 20:38 Last Infusion: 02/02/23 22:00 Dose: 0 mls/hr Documented By: Admin: 02/02/23 21:30 Dose: 200 mls/hr Documented By: Sodium Chloride (Normal Saline 0.9%) 500 mls @ 1,000 mls/hr IV BOLUS ONE Stop: 02/02/23 21:50 Last Infusion: 02/02/23 22:00 Dose: 0 mls/hr Documented By: Admin: 02/02/23 21:27 Dose: 1,000 mls/hr Documented By: Vancomycin HCl/Dextrose (Vancomycin) 1,500 mg in 300 mls @ 200 mls/hr IV NOW ONE Stop: 02/02/23 23:29 Last Infusion: 02/03/23 01:29 Dose: 0 mls/hr Documented By: Admin: 02/02/23 23:44 Dose: 200 mls/hr Documented By: Vancomycin HCl (Vancomycin) 1,250 mg in 250 mls @ 250 mls/hr IV Q8H JOSE MANUEL Midazolam HCl 50 mg/ Dextrose 50 mls @ 1.275 mls/hr IV TITRATE PRN; Protocol PRN Reason: Sedation Last Titration: 02/03/23 08:43 Dose: 0 mg/kg/hr, 0 mls/hr Documented By: Admin: 02/03/23 07:59 Dose: 0.09 mg/kg/hr, 6 mls/hr Documented By: Titration: 02/03/23 07:58 Dose: 0 mg/kg/hr, 0 mls/hr Documented By: Titration: 02/03/23 06:53 Dose: 0.09 mg/kg/hr, 6 mls/hr Documented By: Titration: 02/03/23 06:28 Dose: 0.13 mg/kg/hr, 8 mls/hr Documented By: Admin: 02/03/23 03:10 Dose: 0.16 mg/kg/hr, 10 mls/hr Documented By: Titration: 02/03/23 03:10 Dose: 0.16 mg/kg/hr, 10 mls/hr Documented By: Titration: 02/02/23 23:42 Dose: 0.16 mg/kg/hr, 10 mls/hr Documented By: Titration: 02/02/23 23:29 Dose: 0.09 mg/kg/hr, 6 mls/hr Documented By: Admin: 02/02/23 23:03 Dose: 0.16 mg/kg/hr, 10 mls/hr Documented By: Fentanyl 1,000 mcg/ Dextrose 250 mls @ 11.153 mls/hr IV TITRATE JOSE MANUEL; Protocol Last Titration: 02/03/23 08:44 Dose: 0 mcg/kg/hr, 0 mls/hr Documented By: Admin: 02/03/23 07:34 Dose: 1 mcg/kg/hr, 15.933 mls/hr Documented By: Titration: 02/03/23 07:34 Dose: 1 mcg/kg/hr, 15.933 mls/hr Documented By: Titration: 02/03/23 06:31 Dose: 1 mcg/kg/hr, 15.933 mls/hr Documented By: Titration: 02/03/23 01:00 Dose: 2 mcg/kg/hr, 31.865 mls/hr Documented By: Titration: 02/02/23 23:29 Dose: 1.6 mcg/kg/hr, 25.492 mls/hr Documented By: Titration: 02/02/23 23:14 Dose: 1.8 mcg/kg/hr, 28.679 mls/hr Documented By: Titration: 02/02/23 23:08 Dose: 1.3 mcg/kg/hr, 20.712 mls/hr Documented By: Admin: 02/02/23 23:05 Dose: 0.7 mcg/kg/hr, 11.153 mls/hr Documented By: Sodium Chloride (Normal Saline 0.9%) 1,911.9 mls @ 637.3 mls/hr 30 ml/kg infuse over 3 hr (1911.9 ml) IV NOW ONE Stop: 02/03/23 01:48 Last Infusion: 02/02/23 23:59 Dose: 0 mls/hr Documented By: Admin: 02/02/23 22:49 Dose: 637.3 mls/hr Documented By: Lactated Ringer's (Lactated Ringers) 1,000 mls @ 1,000 mls/hr IV BOLUS ONE Stop: 02/02/23 23:52 Last Infusion: 02/03/23 00:00 Dose: 0 mls/hr Documented By: Admin: 02/02/23 23:16 Dose: 1,000 mls/hr Documented By: NOREPINEPHRINE BITARTRATE/D5W (Levophed) 4 mg in 250 mls @ 30 mls/hr IV TITRATE JOSE MANUEL; Protocol Last Titration: 02/03/23 08:45 Dose: 0 mcg/min, 0 mls/hr Documented By: Titration: 02/03/23 06:32 Dose: 4 mcg/min, 15 mls/hr Documented By: Titration: 02/03/23 05:00 Dose: 8 mcg/min, 30 mls/hr Documented By: Titration: 02/03/23 03:45 Dose: 0 mcg/min, 0 mls/hr Documented By: Titration: 02/03/23 03:36 Dose: 2 mcg/min, 7.5 mls/hr Documented By: Titration: 02/03/23 00:03 Dose: 4 mcg/min, 15 mls/hr Documented By: Admin: 02/02/23 23:55 Dose: 8 mcg/min, 30 mls/hr Documented By: Lactated Ringer's (Lactated Ringers) 1,000 mls @ 1,000 mls/hr IV BOLUS ONE Stop: 02/03/23 04:31 Last Infusion: 02/03/23 06:25 Dose: 0 mls/hr Documented By: Admin: 02/03/23 03:36 Dose: 1,000 mls/hr Documented By: Lactated Ringer's (Lactated Ringers) 500 mls @ 1,000 mls/hr IV BOLUS ONE Stop: 02/03/23 05:30 Last Infusion: 02/03/23 06:54 Dose: 0 mls/hr Documented By: Admin: 02/03/23 05:01 Dose: 1,000 mls/hr Documented By: Methylprednisolone (Methylprednisolone 125 Mg/2 Ml Vial) 125 mg IV NOW ONE Stop: 02/02/23 20:26 Last Admin: 02/02/23 20:36 Dose: 125 mg Documented By: Midazolam HCl (Midazolam 2 Mg/2 Ml Vial) 5 mg IV NOW ONE Stop: 02/02/23 22:14 Last Admin: 02/02/23 22:13 Dose: 5 mg Documented By: Propofol (Propofol 200 Mg/20 Ml Vial) 30 mg 0.5 mg/kg (30 mg) IV NOW ONE Stop: 02/02/23 23:16 Last Admin: 02/02/23 23:15 Dose: 30 mg Documented By: Vancomycin HCl (Vancomycin Per Pharmacy) 1 request MISC NOW ONE Stop: 02/02/23 20:38 Last Admin: 02/03/23 00:58 Dose: Not Given Documented By: DKB Vital Signs Vital signs: Vital Signs - 8 hr 02/02/23 23:15 02/02/23 23:15 02/02/23 23:21 Temperature 98.8 F Pulse Rate 120 H Respiratory Rate 16 Blood Pressure 93/60 80/52 L Pulse Oximetry 96 02/02/23 23:21 02/02/23 23:29 02/02/23 23:29 Temperature 98.8 F 98.6 F Pulse Rate 118 H 118 H Respiratory Rate 16 16 Blood Pressure 83/52 L Pulse Oximetry 95 94 02/02/23 23:30 02/02/23 23:30 02/02/23 23:35 Temperature 98.6 F 98.4 F Pulse Rate 118 H 116 H Respiratory Rate 16 16 Blood Pressure 84/51 L Pulse Oximetry 94 94 02/02/23 23:35 02/02/23 23:40 02/02/23 23:40 Temperature 98.4 F Pulse Rate 114 H Respiratory Rate 16 Blood Pressure 89/53 L 91/52 L Pulse Oximetry 94 02/02/23 23:45 02/02/23 23:45 02/02/23 23:50 Temperature 98.4 F Pulse Rate 114 H Respiratory Rate 16 Blood Pressure 86/52 L 81/51 L Pulse Oximetry 95 02/02/23 23:50 02/02/23 23:53 02/02/23 23:53 Temperature 98.2 F 98.2 F Pulse Rate 113 H 112 H Respiratory Rate 16 16 Blood Pressure 86/59 L Pulse Oximetry 95 95 MDM - SOB/Dyspnea Lab Data 02/02/23 20:19 02/02/23 20:19 Labs: Lab Results 02/02/23 02/02/23 02/02/23 Range/Units 20:19 20:19 20:19 WBC 22.9 H (4.5-11.0) X10^3/uL RBC 4.26 L (4.5-5.9) X10^6/uL Hgb 10.7 L (13.5-17.5) g/dL Hct 32.9 L (41-53) % MCV 77.2 L (80-100) fL MCH 25.0 L (26-34) PG MCHC 32.4 (30-36) % RDW 16.5 H (11.6-14.8) % Plt Count 745 H (150-400) X10^3/uL Neut % (Auto) Not Reportable Lymph % (Auto) Not Reportable [place] % (Auto) Not Reportable Eos % (Auto) Not Reportable Baso % (Auto) Not Reportable Lymph # (Auto) Not Reportable [place] # (Auto) Not Reportable Baso # (Auto) Not Reportable Total Counted 100 Seg Neutrophils % 61.0 (38-70) % Band Neutrophils % 23.0 H (3-7) % Lymphocytes % (Manual) 9.0 L (25-45) % Monocytes % (Manual) 7.0 (2-11) % Neutrophils # (Manual) 50195 H (5735-1448) /uL Toxic Granulation Present H RBC Morphology Normal morphology VBG pH (7.33-7.43) VBG pCO2 (45-50) mmHg VBG pO2 (35-45) mmHg VBG HCO3 (24-28) mmol/L VBG Total CO2 (24-29) mmol/L VBG O2 Saturation (70-75) % VBG Base Excess (0-4) mmol/L FiO2 Sodium 132 L (137-145) mmol/L Potassium 4.8 (3.4-5.1) mmol/L Chloride 98 (98-107) mmol/L Carbon Dioxide 26 (22-32) mmol/L BUN 20 (9-20) mg/dL Creatinine 0.24 L (0.66-1.25) mg/dL Estimated GFR > 60 (>60) mL/min BUN/Creatinine Ratio 83.3 H (6-22) Glucose 112 H (70-100) mg/dL Lactate 1.7 (0.7-2.1) mmol/L Calcium 8.6 (8.4-10.2) mg/dL Total Bilirubin 0.4 (0.2-1.3) mg/dL AST 32 (17-59) IU/L ALT 27 (<50) IU/L Alkaline Phosphatase 139 H (38-126) U/L NT-Pro-B Natriuret Pep 411 H (<125) pg/mL Total Protein 7.9 (6.3-8.2) g/dL Albumin 3.6 (3.5-5.0) g/dL Globulin 4.3 H (1.7-4.1) g/dL Albumin/Globulin Ratio 0.8 L (1.0-2.8) Procalcitonin 0.40 (<0.5) ng/mL Urine Color Urine Appearance Urine pH (4.5-8.0) Ur Specific [place] (1.000-1.035) Urine Protein (Negative) Urine Glucose (UA) (Negative) g/dL Urine Ketones (NEGATIVE) Urine Occult Blood (Negative) Urine Nitrate (Negative) Urine Bilirubin (NEGATIVE) Urine Urobilinogen (0.2) E.U./dL Ur Leukocyte Esterase (NEGATIVE) Urine RBC (0-5/HPF) Urine WBC (0-5/HPF) Ur Squamous Epith Cells (0-5/HPF) Other Crystals Urine Bacteria (None) Urine Mucus (Negative) Ur Culture Indicated? Chlamy pneumoniae PCR (Not Detect) Adenovirus (PCR) (Not Detect) B. pertussis DNA (PCR) (Not Detecte) B.parapertussis DNA PCR (Not Detecte) Coronavirus OC43 (PCR) (Not Detect) Coronavirus HKU1 (PCR) (Not Detect) Coronavirus 229E (PCR) (Not Detect) SARS-CoV-2 (PCR) (Not Detecte) Coronavirus NL63 (PCR) (Not Detect) Human Metapneumovir PCR (Not Detect) Influenza Type A (PCR) (Not Detect) Influenza Type B (PCR) (Not Detect) M. pneumoniae (PCR) (Not Detect) Parainfluenza 1 (PCR) (Not Detect) Parainfluenza 2 (PCR) (Not Detect) Parainfluenza 3 (PCR) (Not Detect) Parainfluenza 4 (PCR) (Not Detect) RSV (PCR) (Not Detect) Entero/Rhino (PCR) (Not Detect) 02/02/23 02/02/23 02/02/23 Range/Units 20:19 20:53 23:25 WBC (4.5-11.0) X10^3/uL RBC (4.5-5.9) X10^6/uL Hgb (13.5-17.5) g/dL Hct (41-53) % MCV (80-100) fL MCH (26-34) PG MCHC (30-36) % RDW (11.6-14.8) % Plt Count (150-400) X10^3/uL Neut % (Auto) Lymph % (Auto) [place] % (Auto) Eos % (Auto) Baso % (Auto) Lymph # (Auto) [place] # (Auto) Baso # (Auto) Total Counted Seg Neutrophils % (38-70) % Band Neutrophils % (3-7) % Lymphocytes % (Manual) (25-45) % Monocytes % (Manual) (2-11) % Neutrophils # (Manual) (9208-1043) /uL Toxic Granulation RBC Morphology VBG pH 7.42 (7.33-7.43) VBG pCO2 39.6 L (45-50) mmHg VBG pO2 40 (35-45) mmHg VBG HCO3 26 (24-28) mmol/L VBG Total CO2 27 (24-29) mmol/L VBG O2 Saturation 77 H (70-75) % VBG Base Excess 1.0 (0-4) mmol/L FiO2 48 Sodium (137-145) mmol/L Potassium (3.4-5.1) mmol/L Chloride (98-107) mmol/L Carbon Dioxide (22-32) mmol/L BUN (9-20) mg/dL Creatinine (0.66-1.25) mg/dL Estimated GFR (>60) mL/min BUN/Creatinine Ratio (6-22) Glucose (70-100) mg/dL Lactate (0.7-2.1) mmol/L Calcium (8.4-10.2) mg/dL Total Bilirubin (0.2-1.3) mg/dL AST (17-59) IU/L ALT (<50) IU/L Alkaline Phosphatase (38-126) U/L NT-Pro-B Natriuret Pep (<125) pg/mL Total Protein (6.3-8.2) g/dL Albumin (3.5-5.0) g/dL Globulin (1.7-4.1) g/dL Albumin/Globulin Ratio (1.0-2.8) Procalcitonin (<0.5) ng/mL Urine Color Yellow Urine Appearance Clear Urine pH 6.5 (4.5-8.0) Ur Specific [place] 1.015 (1.000-1.035) Urine Protein 1+ H (Negative) Urine Glucose (UA) Negative (Negative) g/dL Urine Ketones Trace H (NEGATIVE) Urine Occult Blood Negative (Negative) Urine Nitrate Negative (Negative) Urine Bilirubin Negative (NEGATIVE) Urine Urobilinogen 1.0 (0.2) E.U./dL Ur Leukocyte Esterase Negative (NEGATIVE) Urine RBC 1-5/hpf (0-5/HPF) Urine WBC 1-5/hpf (0-5/HPF) Ur Squamous Epith Cells 1-5 /hpf (0-5/HPF) Other Crystals 1+ amorphous Urine Bacteria Occasional (0-1) (None) Urine Mucus 2+ H (Negative) Ur Culture Indicated? Cult not indicated Chlamy pneumoniae PCR Not detected (Not Detect) Adenovirus (PCR) Not detected (Not Detect) B. pertussis DNA (PCR) Not detected (Not Detecte) B.parapertussis DNA PCR Not detected (Not Detecte) Coronavirus OC43 (PCR) Not detected (Not Detect) Coronavirus HKU1 (PCR) Not detected (Not Detect) Coronavirus 229E (PCR) Not detected (Not Detect) SARS-CoV-2 (PCR) Not detected (Not Detecte) Coronavirus NL63 (PCR) Not detected (Not Detect) Human Metapneumovir PCR Not detected (Not Detect) Influenza Type A (PCR) Not detected (Not Detect) Influenza Type B (PCR) Not detected (Not Detect) M. pneumoniae (PCR) Not detected (Not Detect) Parainfluenza 1 (PCR) Not detected (Not Detect) Parainfluenza 2 (PCR) Not detected (Not Detect) Parainfluenza 3 (PCR) Not detected (Not Detect) Parainfluenza 4 (PCR) Not detected (Not Detect) RSV (PCR) Not detected (Not Detect) Entero/Rhino (PCR) Detected H (Not Detect) Imaging Data Chest x-ray: Radiologist's Impression: IMPRESSION:? ? 1. Increased clustered ground-glass nodules in the left lung with areas of confluence medially.? Milder involvement also demonstrated in the medial right lung base.? The findings are again consistent with an infectious or inflammatory process, likely atypical pneumonia. ? 2. Persistent small left pleural effusion.? Repeat chest x-ray: Radiologist's Impression: PROCEDURE:? XR CHEST 1V ? INDICATIONS:? PLACEMENT ? TECHNIQUE:? One view of the chest was acquired.? ? COMPARISON:? [facility], CR, XR CHEST 1V, 02/02/2023, 20:07. ? FINDINGS:? ? Surgical changes and devices:? There is a new endotracheal tube with the tip approximately 2 cm from the jessy.? ? Lungs and pleura:? There are persistent patchy airspace opacities throughout the left lung and medially in the right lung base with areas of confluence medially in the left upper and lower lung zones.? There is a persistent small left pleural effusion. ? Mediastinum:? Mediastinal contours appear unchanged.? Heart size is normal.? ? Bones and chest wall:? No suspicious bony lesions.? Overlying soft tissues appear unremarkable.? ? IMPRESSION:? ? 1. Endotracheal tube tip approximately 2 cm from the jessy.? Recommend withdrawal by approximately 2 cm. Findings discussed with Dr. Llamas on 01/23/2023 at 11:00 p.m. ? ? Dictated by: Damien Shanks M.D. on 02/02/2023 at 23:00 ? ? Approved by: Damien Shanks M.D. on 02/02/2023 at 23:02 ? CT scan - chest: Radiologist's Impression: IMPRESSION:? ? 1. No evidence of central pulmonary embolism. ? 2. Progressive increased clustered irregular pulmonary nodules bilaterally with areas of confluent consolidation predominantly involving the left lung as described.? The findings are again consistent with an infectious or inflammatory process, likely atypical pneumonia. ? 3. Left lower lobe collapse and consolidation with partially occlusive mucus in the left mainstem bronchus extending into left lower lobe bronchial structures. ? 4. Mildly enlarged mediastinal lymph nodes are nonspecific but likely reactive. ? 5. Small pericardial effusion.? Abdominal x-ray: Radiologist's Impression: FINDINGS:? ? Surgical changes and devices:? There is an orogastric tube extending into the region of the gastric antrum. ? Bowel:? Bowel gas pattern appears within normal limits.? Small left pleural effusion redemonstrated as well as confluent left retrocardiac consolidation or atelectasis.? There are patchy nodular opacities throughout the left lung and medially in the right lung base consistent with an infectious or inflammatory process, likely atypical pneumonia.? The ? Soft tissues:? No suspicious abdominal calcifications.? ? Bones:? No suspicious bony lesions.? ? IMPRESSION:? ? 1. Orogastric tube extends into the region of the gastric antrum. MDM Narrative Medical decision making narrative: Patient brought here by mother for complaints of shortness of breath and coughing. Ongoing 2 or 3 days. Patient was here in December for same complaint for aspiration pneumonia. Respiratory therapy services knows him very well here. He has been intubated once before according to mother. They desire not to be intubated at this time if possible but if necessitates then mother states we will need to intubate. At this time patient according to respiratory therapist usually benefits with repeated breathing treatments and Solu-Medrol. Patient has history of cerebral palsy with respiratory failure. 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 Patient has history aspiration pneumonia. He does have a feeding tube. Mother states they were decreasing the feeds as they were concern for aspiration pneumonia again. Vital signs noted. Very coarse lung sounds right greater than left. Tachypneic and tachycardic. After history and exam CBC CMP lactic acid procalcitonin blood cultures continuous breathing treatment supplemental oxygen support chest x-ray meropenem and vancomycin. On review of medical chart patient here January 06, [address] patient on these 2 antibiotics without adverse reaction. MDM CC: Shortness of breath Complicating co-morbidities: Cerebral palsy history of respiratory failure Data collected from: Mother Medical records reviewed: January 20, 2023 office visit follow-up for recent admission Differential considered: Includes but not limited to respiratory failure/aspiration pneumonia/pneumothorax/congestive heart failure Exam documented above, pertinent findings include: Right greater than left coarse lung sounds Lab Test results independently reviewed as above. Pertinent findings: WBC 22.9 hemoglobin 10.7 hematocrit 32.9 sodium 132 bicarb 26 GFR greater than 60 BNP 411 procalcitonin 0.4 lactic acid 1.7 Independently reviewed EKG as above sinus tachycardia rate 130 tonight otherwise normal EKG no ST elevation or depression Imaging studies independently reviewed: Chest x-ray increased cholesterol ground-glass nodules in the left lung with areas of confluence medially. Mild involvement also demonstrated in the medial right lung base. Findings are again consistent with infectious or inflammatory process, atypical pneumonia Repeat chest x-ray shows ET tube 2 cm above jessy, this has been addressed, we did retract [address] chest - Progressive increased clustered irregular pulmonary nodules bilaterally with areas of confluent consolidation predominantly involving the left lung as described.? The findings are again consistent with an infectious or inflammatory process, likely atypical pneumonia. Left lower lobe collapse and consolidation with partially occlusive mucus in the left mainstem bronchus extending into left lower lobe bronchial structures. X-ray abdomen NG tube tip in the antrum of the stomach Consultations: 12:00 a.m.. Spoke with Hospitalist, dr mauricio, he would like patient have CT chest PE protocol before admission. Patient now requiring Levophed vasopressor. PICC line team is coming in to place a line. Patient does have 2 good functioning peripheral IV access at this time. 3:30 a.m.. Spoke with hospitalist again, he is going to try to transfer patient to [facility]. 3:40 a.m.. Spoke with mother. She gives verbal consent for emergent central line. Risks and benefits reviewed with her. She gives consent. Patient is going to require more Levophed. PICC team unable to place line. Treatments: Vancomycin meropenem DuoNeb albuterol nebulizers Re-evaluations: 10:30 p.m.. Patient had started desaturation down to the 70% despite being on high-flow. Patient requiring rapid sequence intubation. Mother at bedside and agrees for this. 11:00 p.m.. I did review with mother, her son is very very ill/sick. Is septic. In regards of treatment and response, patient remains full code she states. Discussion: Appropriate for admission. Patient is now intubated. Requiring ventilation support. Antibiotics have been started. Likely aspiration pneumonia. Sepsis protocol has been started. IV fluids started. Patient not requiring pressors at this time. PICC team is coming in to place a line. Normal saline sepsis bolus ordered. This is followed up by 1 L of lactated Ringer's. Blood pressure did start declining however I believe at this time this is sedation related. Jones catheter placed and no return of urine. Patient likely very dehydrated/prerenal. Diagnosis: Respiratory failure/sepsis Critical Care Time Critical Care Time Attestation: Critical Care Time 35 minutes: Critical care time is separate from other billable procedures. This critical care time includes consultation with family and other consulting doctors, review of records, and interpretation of data from labs, EKGs, imaging, etc. Patient has been intubated. Requiring ICU. Patient being placed on vasopressor Levophed. Discharge Plan Departure Patient Disposition: [facility] Clinical Impression: Respiratory failure, Sepsis
[2023-02-02] MEDS: methylPREDNISolone 125 MG/2 ML VIAL IV (20:36)
[2023-02-02 20:43] LABS: Hematocrit 32.9 % (41-53); Hemoglobin 10.7 g/dL (13.5-17.5); Mean Corpuscular HGB Conc 32.4 % (30-36); Mean Corpuscular Volume 77.2 fL (80-100); Platelet Count 745 X10^3/uL (150-400); Red Blood Cell Count 4.26 X10^6/uL (4.5-5.9); Red Cell Distribution Width 16.5 % (11.6-14.8); White Blood Cell Count 22.9 X10^3/uL (4.5-11.0)
[2023-02-02 20:45] LABS: Add Manual Diff / Slide Review YES
[2023-02-02 20:55] LABS: Lactate (Lactic Acid) 1.7 mmol/L (0.7-2.1)
[2023-02-02 20:56] LABS: Alanine Aminotransferase 27 IU/L (<50); Albumin 3.6 g/dL (3.5-5.0); Albumin Globulin Ratio 0.8 (1.0-2.8); Alkaline Phosphatase 139 U/L (38-126); Aspartate Aminotransferase 32 IU/L (17-59); BUN Creatinine Ratio 83.3 (6-22); Bilirubin Total 0.4 mg/dL (0.2-1.3); Blood Urea Nitrogen 20 mg/dL (9-20); Calcium 8.6 mg/dL (8.4-10.2); Carbon Dioxide 26 mmol/L (22-32); Chloride 98 mmol/L (98-107); Estimated Glomerular Filt Rate > 60 mL/min (>60); Globulin 4.3 g/dL (1.7-4.1); Glucose 112 mg/dL (70-100); HEMOLYSIS 15 (0-50); Potassium 4.8 mmol/L (3.4-5.1); Sodium 132 mmol/L (137-145); Total Protein 7.9 g/dL (6.3-8.2)
[2023-02-02 21:05] LABS: NT-proBNP (BNP-Adult 18+) 411 pg/mL (<125)
[2023-02-02 21:07] LABS: HCO3 VBG 26 mmol/L (24-28); PCO2 VBG 39.6 mmHg (45-50); PO2 VBG 40 mmHg (35-45); pH VBG 7.42 (7.33-7.43)
[2023-02-02 21:08] LABS: Neutrophils Absolute Manual 19236 /uL (3000-5900); RBC Morphology Normal Morphology; Total Cells Counted 100; Toxic Granulation Present
[2023-02-02 21:08] LABS: Fractionated Inspired Oxygen 48; Oxygen Saturation VBG 77 % (70-75); Total CO2 VBG 27 mmol/L (24-29)
[2023-02-02] MEDS: ALBUTEROL 2.5 MG/3 ML NEB (ADULT) 5 MG INH (21:13)
[2023-02-02 21:26] LABS: Adenovirus Not Detected (Not Detect); B. parapertussis Not Detected (Not Detecte); Bordetella pertussis Not Detected (Not Detecte); Chlamydophila pneumoniae Not Detected (Not Detect); Coronavirus 229E Not Detected (Not Detect); Coronavirus HKU1 Not Detected (Not Detect); Coronavirus NL 63 Not Detected (Not Detect); Coronavirus OC43 Not Detected (Not Detect); Human Metapneumovirus Not Detected (Not Detect); Human Rhinovirus/Enterovirus Detected (Not Detect); Influenza A Not Detected (Not Detect); Influenza B Not Detected (Not Detect); Mycoplasma pneumoniae Not Detected (Not Detect); Parainfluenza Virus 1 Not Detected (Not Detect); Parainfluenza Virus 2 Not Detected (Not Detect); Parainfluenza Virus 3 Not Detected (Not Detect); Parainfluenza Virus 4 Not Detected (Not Detect); Respiratory Syncytial Virus Not Detected (Not Detect); SARS- CoV-2 Not Detected (Not Detecte)
[2023-02-02] MEDS: SODIUM CHLORIDE 0.9% 500 ML 1000 ML IV (21:27)
[2023-02-02] MEDS: MEROPENEM 500 MG in SODIUM CHLORIDE 0.9% 100 ML 200 MG IV (21:30)
--- NOTE | 2023-02-02 21:54 | PC.NURSE ---
[facility] called regarding vancomycin dosage. Pharmacist states will work on order.
[2023-02-02] MEDS: MIDAZOLAM 2 MG/2 ML VIAL 5 MG IV (22:13)
[2023-02-02] MEDS: fentaNYL 100 MCG/2 ML INJ 50 MCG IV ×2 (22:14→22:15)
[2023-02-02] MEDS: fentaNYL 100 MCG/2 ML INJ IV (22:28)
[2023-02-02] MEDS: SODIUM CHLORIDE 0.9% 637.3 ML IV (22:49)
[2023-02-02] MEDS: MIDAZOLAM 50 MG in DEXTROSE 5 % IN WATER 40 ML 10 MG IV (23:03)
[2023-02-02] MEDS: fentaNYL 1,000 MCG in DEXTROSE 5% IN WATER 230 ML 11.153 MCG IV (23:05)
[2023-02-02] MEDS: propofoL 200 MG/20 ML VIAL 30 MG IV (23:15)
--- NOTE | 2023-02-02 23:15 | PC.NURSE ---
Temperature sensing myrick placed
[2023-02-02] MEDS: LACTATED RINGERS 1,000 ML 1000 ML IV (23:16)
[2023-02-02 23:34] LABS: Appearance Urine UA CLEAR; Bilirubin Urine UA NEGATIVE (NEGATIVE); Color Urine UA YELLOW; Glucose Urine UA NEGATIVE (Negative); Ketones Urine UA TRACE (NEGATIVE); Leukocyte Esterase Urine UA NEGATIVE (NEGATIVE); Nitrite Urine UA NEGATIVE (Negative); Occult Blood Urine UA NEGATIVE (Negative); Protein Urine UA 1+ (Negative); Specific Gravity Urine UA 1.015 (1.000-1.035); pH Urine UA 6.5 (4.5-8.0)
[2023-02-02 23:42] LABS: Bacteria Urine Occasional (0-1); Culture Indicated Urine Cult Not Indicated; Mucus Urine 2+ (Negative); Other Crystals Urine 1+ Amorphous; RBC Urine 1-5/HPF (0-5/HPF); Squamous Epithelial Cell Urine 1-5 /HPF (0-5/HPF); WBC Urine 1-5/HPF (0-5/HPF)
[2023-02-02] MEDS: VANCOMYCIN 1,500 MG/300 ML PIGGYBACK 200 MG IV (23:44)
[2023-02-02] MEDS: NOREPINEPHRINE BITARTRATE/D5W 4 MG/250 ML PLAST..BAG 30 MG IV (23:55)
[2023-02-03] VITALS (90 sets, daily range): BP systolic 80–139; BP diastolic 50–94; PULSE 81–107; RESP 16–19; TEMP 36–36.9; O2SAT 92–99
--- NOTE | 2023-02-03 00:01 | DI.CT.S_ITS ---
P a ROCEDURE: CT ANGIO CHEST PE PROTOCOL INDICATIONS: Respiratory failure TECHNIQUE: After the administration of intravenous contrast, 2 mm thick sections acquired from the pulmonary apices to the posterior costophrenic angles. 3-dimensional maximum intensity projection (MIP) coronal and sagittal reformats were then acquired through the thorax. For radiation dose reduction, the following was used: automated exposure control, adjustment of mA and/or kV according to patient size. COMPARISON: [facility], CT, CT ANGIO CHEST PE PROTOCOL, 01/03/2023, 21:58. FINDINGS: Image quality: Excellent. Pulmonary arteries: Pulmonary arteries are normal in size, and demonstrate no intraluminal filling defects to suggest central pulmonary embolism. Lower Neck: No lymphadenopathy by size criteria. Thyroid: Visualized thyroid demonstrates no discrete nodules. Axillae: No lymphadenopathy by size criteria. Chest Wall: Unremarkable. Bones: Visualized osseous structures demonstrate no suspicious lesions. Lungs and Airways: There is an endotracheal tube with the tip approximately 2.7 cm from the jessy. There are increased clustered nodules diffusely throughout the left lung with areas of confluent consolidation posteromedially in the left upper lobe as well as along the perihilar region. Increased nodules are also demonstrated throughout the right lung with a medial right lower lobe predominance where there is confluent consolidation. Overall the findings have progressed compared to the prior CT. There is collapse of the left lower lobe redemonstrated with dependent partially occlusive mucus in the left mainstem bronchus extending into the left lower lobe bronchus. Mild dependent mucus also demonstrated within the trachea, right mainstem bronchus, and extending into the right lung bronchial structures. Pleura: No pneumothorax or pleural effusions. Heart: Heart size is normal. There is a small pericardial effusion. Thoracic Vessels: The thoracic aorta is normal in size. Mediastinum and Aniya: There are mildly enlarged mediastinal and hilar lymph nodes which are nonspecific. Esophagus: No wall thickening. No hiatal hernia. Abdomen: Visualized upper abdominal solid organs appear normal in the early arterial phase of enhancement. IMPRESSION: 1. No evidence of central pulmonary embolism. 2. Progressive increased clustered irregular pulmonary nodules bilaterally with areas of confluent consolidation predominantly involving the left lung as described. The findings are again consistent with an infectious or inflammatory process, likely atypical pneumonia. 3. Left lower lobe collapse and consolidation with partially occlusive mucus in the left mainstem bronchus extending into left lower lobe bronchial structures. 4. Mildly enlarged mediastinal lymph nodes are nonspecific but likely reactive. 5. Small pericardial effusion. Dictated by: Damien Shanks M.D. on 02/03/2023 at 1:44 Approved by: Damien Shanks M.D. on 02/03/2023 at 1:51
[2023-02-03 00:07] LABS: pH ABG 7.41 (7.35-7.45)
[2023-02-03 00:08] LABS: Fractionated Inspired Oxygen 55; HCO3 ABG 22 mmol/L (23-27); Oxygen Saturation ABG 95 % (95-100); PCO2 ABG 35.2 mmHg (35-45); PO2 ABG 76 mmHg (80-100); TCO2 ABG 23 mmol/L (23-27)
--- NOTE | 2023-02-03 01:30 | PC.NURSE ---
PICC RN arrival. Parents remain at the bedside.
[2023-02-03] MEDS: MIDAZOLAM 50 MG in DEXTROSE 5 % IN WATER 40 ML 10 MG IV (03:10)
[2023-02-03] MEDS: LACTATED RINGERS 1,000 ML 1000 ML IV (03:36)
[2023-02-03] MEDS: LACTATED RINGERS 500 ML 1000 ML IV (05:01)
--- NOTE | 2023-02-03 05:28 | PM.CN ---
History of Present Illness Consult details Date Patient Seen: 02/03/23 Time Patient Seen: 02:00 Chief complaint: O2 @ 88, High HR Narrative: Mr. Christopher is a 42M with H pediatric glioblastoma, residual hemiparesis, pseudobulbar palsy who presents with cough and shortness of breath. He is intubated when I evaluate him. He is evaluated after ED physician request for admission. Of note he was recently admitted to the hospital last month with similar symptoms with a pneumonia. He initially presented to this hospital where workup was concerning for possible obstructive atelectasis with pneumonia and pleural effusion. He was transferred to [facility]. He was suspected of having an aspiration as triggering event. He has known swallowing issues and is nonadherent to speech recommendations. Ultimately he received a feeding tube. He did get a bronch at which grew back multiple bacteria there susceptible to vancomycin and he was discharged with PICC line and completed a course of antibiotics. Apparently over the last few days his symptoms worsened and returned. His mother was concerned about aspiration and slowed his feeding rate. In the ED workup was done, vitals notable for afebrile, heart rate 130s, respiratory rate 40s. Blood pressure 120s/80s. O2 sats in the 80s. He was placed on high flow and continued to have tachypnea, increased work of breathing and desats so patient was ultimately intubated. Labs reviewed and notable for WBC 22.9, hgb 10.7, plts 745. Creatinine 0.24. Procal 0.40. Respiratory PCR panel positive for rhinovirus Chest xray reviewed by me and notable for left sided airspace opacities. Admission was requested by ED physician but based on previous presentation I requested CT of lungs and CTA imaging notable for increased clustered irregular pulmonary nodules bilaterally. There was also noted left lower lobe collapse and consolidation with partially occlusive mucous in left mainstem bronchus extending into left lower lobe bronchial structures. Small pericardial effusion noted. He was placed on propofol. After sedation started he became hypotensive and was started on levophed, which was intermittently off or on a low dose. He was ultimately titrated to vent setting of AC, TV 500, rr 16, fio2 45%, peep 5. ABG 7.41, pao2 76, pco2 35, bicarb 22. He was ordered for antibiotics with vancomycin and meropenem. He was ordered for IV fluids. Initially ED physician requested PICC line, but this was attempted and unsuccessful so femoral line was placed. Cased was discussed with ICU team at [facility] and patient was accepted by Dr. Farias. Meds Home Medications and Allergies Home Medications Medication Instructions Recorded Confirmed Type Battery Powered Lift #1 ea 03/02/18 01/20/23 Rx Power Chair #1 ea 10/16/18 01/20/23 Rx Semi-electric hospital bed #1 ea 11/17/18 01/20/23 Rx Disabled Parking #1 ea 01/15/19 01/20/23 Rx Shower Chair #1 ea 07/04/19 01/20/23 Rx onabotulinumtoxinA 100 unit 200 unit IM ONCE 07/20/21 01/20/23 History solution for injection (Botox) ferrous sulfate 325 mg (65 mg 130 mg PO DAILY 10/29/21 01/20/23 History iron) tablet XL mattress for semi-electric #1 ea 09/27/22 01/20/23 Rx hospital bed menthol 0.44 %-zinc oxide 20.6 % 1 applic topical QID PRN skin 09/27/22 01/20/23 Rx topical ointment (Calmoseptine) irritation #113 grams Mattress #1 ea 01/20/23 01/20/23 Rx baclofen 5 mg/5 mL oral solution 5 mg (5 mL) PO DAILY #473 mL 01/20/23 01/20/23 Rx sertraline 20 mg/mL oral 150 mg (7.5 mL) PO DAILY 30 days 01/20/23 01/20/23 Rx concentrate #225 mL Allergies Allergy/AdvReac Type Severity Reaction Status Date / Time Penicillins [PENICILLINS] Allergy Severe RASH Verified 01/03/23 19:01 levofloxacin Allergy Intermediate Rash Verified 01/03/23 19:01 Review of Systems Review of Systems Narrative: patient intubated and sedated Exam Vital Signs (past 8 hours): - 02/02/23 21:30 02/02/23 21:30 02/02/23 22:36 Temperature Pulse Rate 134 H 127 H Respiratory Rate 42 H 32 H Blood Pressure 121/78 102/72 Pulse Oximetry 93 96 Oxygen Flow Rate 7 Fraction of Inspired Oxygen 02/02/23 22:59 02/02/23 21:45 02/02/23 21:45 Temperature Pulse Rate 139 H 128 H Respiratory Rate 30 H 40 H Blood Pressure 145/93 H Pulse Oximetry 97 Oxygen Flow Rate Fraction of Inspired Oxygen 02/02/23 22:00 02/02/23 22:00 02/02/23 22:15 Temperature Pulse Rate 119 H Respiratory Rate 37 H Blood Pressure 148/99 H 115/72 Pulse Oximetry 79 L Oxygen Flow Rate Fraction of Inspired Oxygen 02/02/23 22:15 02/02/23 22:19 02/02/23 22:19 Temperature Pulse Rate 142 H 135 H Respiratory Rate 26 H 19 Blood Pressure 104/67 Pulse Oximetry 99 99 Oxygen Flow Rate Fraction of Inspired Oxygen 02/02/23 22:20 02/02/23 22:20 02/02/23 22:32 Temperature Pulse Rate 134 H Respiratory Rate 21 Blood Pressure 104/67 102/72 Pulse Oximetry 98 Oxygen Flow Rate Fraction of Inspired Oxygen 02/02/23 22:32 02/02/23 22:44 02/02/23 22:44 Temperature Pulse Rate 129 H 126 H Respiratory Rate 17 17 Blood Pressure 94/62 Pulse Oximetry 91 100 Oxygen Flow Rate Fraction of Inspired Oxygen 02/02/23 22:45 02/02/23 22:45 02/02/23 22:47 Temperature Pulse Rate 125 H 124 H Respiratory Rate 16 16 Blood Pressure 89/59 L Pulse Oximetry 97 96 Oxygen Flow Rate Fraction of Inspired Oxygen 02/02/23 22:47 02/02/23 23:00 02/02/23 23:00 Temperature 97.7 F Pulse Rate 124 H Respiratory Rate 16 Blood Pressure 87/56 L 92/57 L Pulse Oximetry 95 Oxygen Flow Rate Fraction of Inspired Oxygen 02/02/23 23:05 02/02/23 23:05 02/02/23 23:10 Temperature 98.4 F Pulse Rate 122 H Respiratory Rate 16 Blood Pressure 94/58 L 95/62 Pulse Oximetry 95 Oxygen Flow Rate Fraction of Inspired Oxygen 02/02/23 23:10 02/02/23 23:15 02/02/23 23:15 Temperature 98.6 F 98.8 F Pulse Rate 121 H 120 H Respiratory Rate 16 16 Blood Pressure 93/60 Pulse Oximetry 97 96 Oxygen Flow Rate Fraction of Inspired Oxygen 02/02/23 23:21 02/02/23 23:21 02/02/23 23:29 Temperature 98.8 F 98.6 F Pulse Rate 118 H 118 H Respiratory Rate 16 16 Blood Pressure 80/52 L Pulse Oximetry 95 94 Oxygen Flow Rate Fraction of Inspired Oxygen 02/02/23 23:29 02/02/23 23:30 02/02/23 23:30 Temperature 98.6 F Pulse Rate 118 H Respiratory Rate 16 Blood Pressure 83/52 L 84/51 L Pulse Oximetry 94 Oxygen Flow Rate Fraction of Inspired Oxygen 02/02/23 23:35 02/02/23 23:35 02/02/23 23:40 Temperature 98.4 F 98.4 F Pulse Rate 116 H 114 H Respiratory Rate 16 16 Blood Pressure 89/53 L Pulse Oximetry 94 94 Oxygen Flow Rate Fraction of Inspired Oxygen 02/02/23 23:40 02/02/23 23:45 02/02/23 23:45 Temperature 98.4 F Pulse Rate 114 H Respiratory Rate 16 Blood Pressure 91/52 L 86/52 L Pulse Oximetry 95 Oxygen Flow Rate Fraction of Inspired Oxygen 02/02/23 23:50 02/02/23 23:50 02/02/23 23:53 Temperature 98.2 F 98.2 F Pulse Rate 113 H 112 H Respiratory Rate 16 16 Blood Pressure 81/51 L Pulse Oximetry 95 95 Oxygen Flow Rate Fraction of Inspired Oxygen 02/02/23 23:53 02/02/23 23:55 02/02/23 23:55 Temperature 98.2 F Pulse Rate 102 H Respiratory Rate 16 Blood Pressure 86/59 L 114/78 Pulse Oximetry 97 Oxygen Flow Rate Fraction of Inspired Oxygen 02/03/23 00:00 02/03/23 00:00 02/03/23 00:05 Temperature 98.2 F Pulse Rate 101 H Respiratory Rate 16 Blood Pressure 129/84 106/70 Pulse Oximetry 99 Oxygen Flow Rate Fraction of Inspired Oxygen 02/03/23 00:05 02/03/23 00:10 02/03/23 00:10 Temperature 98.1 F 98.1 F Pulse Rate 104 H 103 H Respiratory Rate 16 16 Blood Pressure 101/69 Pulse Oximetry 98 97 Oxygen Flow Rate Fraction of Inspired Oxygen 02/03/23 00:15 02/03/23 00:15 02/03/23 00:20 Temperature 98.1 F Pulse Rate 102 H Respiratory Rate 16 Blood Pressure 101/67 105/69 Pulse Oximetry 97 Oxygen Flow Rate Fraction of Inspired Oxygen 02/03/23 00:20 02/03/23 00:30 02/03/23 00:44 Temperature 98.1 F 98.1 F 98.1 F Pulse Rate 102 H 104 H 107 H Respiratory Rate 16 16 19 Blood Pressure Pulse Oximetry 96 92 95 Oxygen Flow Rate Fraction of Inspired Oxygen 02/03/23 00:44 02/03/23 00:45 02/03/23 00:45 Temperature 98.1 F Pulse Rate 107 H Respiratory Rate 19 Blood Pressure 95/57 L 93/56 L Pulse Oximetry 96 Oxygen Flow Rate Fraction of Inspired Oxygen 02/03/23 00:50 02/03/23 00:50 02/03/23 00:55 Temperature 98.1 F 98.1 F Pulse Rate 98 H 97 H Respiratory Rate 19 18 Blood Pressure 108/68 Pulse Oximetry 96 98 Oxygen Flow Rate Fraction of Inspired Oxygen 02/03/23 00:55 02/03/23 01:00 02/03/23 01:00 Temperature 98.1 F Pulse Rate 103 H Respiratory Rate 16 Blood Pressure 138/94 H 94/56 L Pulse Oximetry 95 Oxygen Flow Rate Fraction of Inspired Oxygen 02/03/23 01:05 02/03/23 01:05 02/03/23 01:10 Temperature 98.1 F 98.1 F Pulse Rate 97 H 97 H Respiratory Rate 18 18 Blood Pressure 118/68 Pulse Oximetry 95 96 Oxygen Flow Rate Fraction of Inspired Oxygen 02/03/23 01:10 02/03/23 01:15 02/03/23 01:15 Temperature 97.9 F Pulse Rate 97 H Respiratory Rate 17 Blood Pressure 119/70 115/71 Pulse Oximetry 96 Oxygen Flow Rate Fraction of Inspired Oxygen 02/03/23 01:20 02/03/23 01:20 02/03/23 01:25 Temperature 97.9 F 97.9 F Pulse Rate 96 H 92 H Respiratory Rate 17 17 Blood Pressure 114/72 Pulse Oximetry 96 96 Oxygen Flow Rate Fraction of Inspired Oxygen 02/03/23 01:25 02/03/23 01:30 02/03/23 01:30 Temperature 97.9 F Pulse Rate 93 H Respiratory Rate 16 Blood Pressure 110/66 109/69 Pulse Oximetry 96 Oxygen Flow Rate Fraction of Inspired Oxygen 02/03/23 02:00 02/03/23 02:21 02/03/23 02:25 Temperature 98.2 F 98.2 F Pulse Rate 97 H 97 H Respiratory Rate 16 16 Blood Pressure 113/78 Pulse Oximetry 94 96 Oxygen Flow Rate Fraction of Inspired Oxygen 02/03/23 02:25 02/03/23 02:30 02/03/23 02:30 Temperature 98.2 F 98.2 F Pulse Rate 86 91 H Respiratory Rate 16 16 Blood Pressure 122/85 Pulse Oximetry 96 98 Oxygen Flow Rate Fraction of Inspired Oxygen 02/03/23 02:35 02/03/23 02:35 02/03/23 02:40 Temperature 98.2 F Pulse Rate 91 H Respiratory Rate 17 Blood Pressure 112/76 108/77 Pulse Oximetry 97 Oxygen Flow Rate Fraction of Inspired Oxygen 02/03/23 02:40 02/03/23 02:45 02/03/23 02:45 Temperature 98.2 F 98.2 F Pulse Rate 91 H 91 H Respiratory Rate 16 16 Blood Pressure 108/72 Pulse Oximetry 98 98 Oxygen Flow Rate Fraction of Inspired Oxygen 02/03/23 02:50 02/03/23 02:50 02/03/23 02:55 Temperature 98.2 F 98.2 F Pulse Rate 91 H 90 Respiratory Rate 16 16 Blood Pressure 106/69 Pulse Oximetry 98 98 Oxygen Flow Rate Fraction of Inspired Oxygen 02/03/23 02:55 02/03/23 03:00 02/03/23 03:00 Temperature 98.2 F Pulse Rate 91 H Respiratory Rate 16 Blood Pressure 106/72 107/72 Pulse Oximetry 98 Oxygen Flow Rate Fraction of Inspired Oxygen 02/03/23 03:05 02/03/23 03:05 02/03/23 03:10 Temperature 98.2 F Pulse Rate 92 H Respiratory Rate 16 Blood Pressure 108/75 108/76 Pulse Oximetry 97 Oxygen Flow Rate Fraction of Inspired Oxygen 02/03/23 03:10 02/03/23 03:15 02/03/23 03:15 Temperature 98.2 F 98.2 F Pulse Rate 90 92 H Respiratory Rate 16 16 Blood Pressure 103/71 Pulse Oximetry 98 98 Oxygen Flow Rate Fraction of Inspired Oxygen 02/03/23 03:20 02/03/23 03:20 02/03/23 03:25 Temperature 98.4 F 98.4 F Pulse Rate 92 H 92 H Respiratory Rate 16 16 Blood Pressure 105/70 Pulse Oximetry 98 98 Oxygen Flow Rate Fraction of Inspired Oxygen 02/03/23 03:25 02/03/23 03:30 02/03/23 03:30 Temperature 98.4 F Pulse Rate 92 H Respiratory Rate 16 Blood Pressure 107/74 104/70 Pulse Oximetry 98 Oxygen Flow Rate Fraction of Inspired Oxygen 02/03/23 03:35 02/03/23 03:35 02/03/23 03:40 Temperature 98.4 F Pulse Rate 91 H Respiratory Rate 16 Blood Pressure 98/71 98/61 Pulse Oximetry 98 Oxygen Flow Rate Fraction of Inspired Oxygen 02/03/23 03:40 02/03/23 03:45 02/03/23 03:45 Temperature 98.4 F 98.4 F Pulse Rate 94 H 95 H Respiratory Rate 16 16 Blood Pressure 105/62 Pulse Oximetry 98 97 Oxygen Flow Rate Fraction of Inspired Oxygen 02/03/23 03:50 02/03/23 03:50 02/03/23 03:55 Temperature 98.4 F 98.4 F Pulse Rate 99 H 101 H Respiratory Rate 16 17 Blood Pressure 103/62 Pulse Oximetry 95 94 Oxygen Flow Rate Fraction of Inspired Oxygen 02/03/23 03:55 02/03/23 04:00 02/03/23 04:00 Temperature 98.1 F Pulse Rate 100 H Respiratory Rate 16 Blood Pressure 102/61 101/62 Pulse Oximetry 94 Oxygen Flow Rate Fraction of Inspired Oxygen 02/03/23 04:05 02/03/23 04:05 02/03/23 04:10 Temperature 98.2 F 98.2 F Pulse Rate 101 H 101 H Respiratory Rate 16 16 Blood Pressure 101/59 L Pulse Oximetry 95 94 Oxygen Flow Rate Fraction of Inspired Oxygen 02/03/23 04:10 02/03/23 04:15 02/03/23 04:15 Temperature 98.2 F Pulse Rate 101 H Respiratory Rate 16 Blood Pressure 103/63 101/64 Pulse Oximetry 94 Oxygen Flow Rate Fraction of Inspired Oxygen 02/03/23 04:20 02/03/23 04:20 02/03/23 04:25 Temperature 98.1 F 98.1 F Pulse Rate 100 H 100 H Respiratory Rate 16 16 Blood Pressure 101/64 Pulse Oximetry 94 94 Oxygen Flow Rate Fraction of Inspired Oxygen 02/03/23 04:25 02/03/23 04:30 02/03/23 04:30 Temperature 97.9 F Pulse Rate 100 H Respiratory Rate 16 Blood Pressure 102/64 101/62 Pulse Oximetry 94 Oxygen Flow Rate Fraction of Inspired Oxygen 02/03/23 04:35 02/03/23 04:35 02/03/23 04:40 Temperature 97.9 F Pulse Rate 99 H Respiratory Rate 16 Blood Pressure 98/60 98/61 Pulse Oximetry 94 Oxygen Flow Rate Fraction of Inspired Oxygen 02/03/23 04:40 02/03/23 04:45 02/03/23 04:45 Temperature 97.7 F 97.5 F L Pulse Rate 98 H 95 H Respiratory Rate 16 16 Blood Pressure 99/59 L Pulse Oximetry 93 93 Oxygen Flow Rate Fraction of Inspired Oxygen 02/03/23 04:50 02/03/23 04:50 02/03/23 04:55 Temperature 97.5 F L Pulse Rate 94 H Respiratory Rate 16 Blood Pressure 80/50 L 80/52 L Pulse Oximetry 94 Oxygen Flow Rate Fraction of Inspired Oxygen 02/03/23 04:55 02/03/23 05:00 02/03/23 05:00 Temperature 97.5 F L 97.3 F L Pulse Rate 92 H 87 Respiratory Rate 16 16 Blood Pressure 84/51 L Pulse Oximetry 94 95 Oxygen Flow Rate Fraction of Inspired Oxygen 02/02/23 22:51 Temperature Pulse Rate Respiratory Rate Blood Pressure Pulse Oximetry Oxygen Flow Rate Fraction of Inspired Oxygen 55 Fraction of Inspired Oxygen 55 Oxygen Delivery Method Room Air Oxygen Flow Rate 7 Narrative Exam Narrative: GEN: intubated and sedated, chronically ill appearing CV: tachycardic no murmurs PULM: coarse breath sounds, decreased breath sounds left base ABD: feeding tube in place Objective Labs 02/02/23 20:19 02/02/23 20:19 Labs: Laboratory Results - last 24 hr 02/02/23 02/02/23 02/02/23 20:19 20:19 20:19 WBC 22.9 H RBC 4.26 L Hgb 10.7 L Hct 32.9 L MCV 77.2 L MCH 25.0 L MCHC 32.4 RDW 16.5 H Plt Count 745 H Neut % (Auto) Not Reportable Lymph % (Auto) Not Reportable [place] % (Auto) Not Reportable Eos % (Auto) Not Reportable Baso % (Auto) Not Reportable Lymph # (Auto) Not Reportable [place] # (Auto) Not Reportable Baso # (Auto) Not Reportable Total Counted 100 Seg Neutrophils % 61.0 Band Neutrophils % 23.0 H Lymphocytes % (Manual) 9.0 L Monocytes % (Manual) 7.0 Neutrophils # (Manual) 20641 H Toxic Granulation Present H RBC Morphology Normal morphology ABG pH ABG pCO2 ABG pO2 ABG HCO3 ABG Total CO2 ABG O2 Saturation ABG Base Excess VBG pH VBG pCO2 VBG pO2 VBG HCO3 VBG Total CO2 VBG O2 Saturation VBG Base Excess FiO2 Sodium 132 L Potassium 4.8 Chloride 98 Carbon Dioxide 26 BUN 20 Creatinine 0.24 L Estimated GFR > 60 BUN/Creatinine Ratio 83.3 H Glucose 112 H Lactate 1.7 Calcium 8.6 Total Bilirubin 0.4 AST 32 ALT 27 Alkaline Phosphatase 139 H NT-Pro-B Natriuret Pep 411 H Total Protein 7.9 Albumin 3.6 Globulin 4.3 H Albumin/Globulin Ratio 0.8 L Procalcitonin 0.40 Urine Color Urine Appearance Urine pH Ur Specific Daniel Urine Protein Urine Glucose (UA) Urine Ketones Urine Occult Blood Urine Nitrate Urine Bilirubin Urine Urobilinogen Ur Leukocyte Esterase Urine RBC Urine WBC Ur Squamous Epith Cells Other Crystals Urine Bacteria Urine Mucus Ur Culture Indicated? Chlamy pneumoniae PCR Adenovirus (PCR) B. pertussis DNA (PCR) B.parapertussis DNA PCR Coronavirus OC43 (PCR) Coronavirus HKU1 (PCR) Coronavirus 229E (PCR) SARS-CoV-2 (PCR) Coronavirus NL63 (PCR) Human Metapneumovir PCR Influenza Type A (PCR) Influenza Type B (PCR) M. pneumoniae (PCR) Parainfluenza 1 (PCR) Parainfluenza 2 (PCR) Parainfluenza 3 (PCR) Parainfluenza 4 (PCR) RSV (PCR) Entero/Rhino (PCR) 02/02/23 02/02/23 02/02/23 20:19 20:53 23:25 WBC RBC Hgb Hct MCV MCH MCHC RDW Plt Count Neut % (Auto) Lymph % (Auto) [place] % (Auto) Eos % (Auto) Baso % (Auto) Lymph # (Auto) [place] # (Auto) Baso # (Auto) Total Counted Seg Neutrophils % Band Neutrophils % Lymphocytes % (Manual) Monocytes % (Manual) Neutrophils # (Manual) Toxic Granulation RBC Morphology ABG pH ABG pCO2 ABG pO2 ABG HCO3 ABG Total CO2 ABG O2 Saturation ABG Base Excess VBG pH 7.42 VBG pCO2 39.6 L VBG pO2 40 VBG HCO3 26 VBG Total CO2 27 VBG O2 Saturation 77 H VBG Base Excess 1.0 FiO2 48 Sodium Potassium Chloride Carbon Dioxide BUN Creatinine Estimated GFR BUN/Creatinine Ratio Glucose Lactate Calcium Total Bilirubin AST ALT Alkaline Phosphatase NT-Pro-B Natriuret Pep Total Protein Albumin Globulin Albumin/Globulin Ratio Procalcitonin Urine Color Yellow Urine Appearance Clear Urine pH 6.5 Ur Specific Daniel 1.015 Urine Protein 1+ H Urine Glucose (UA) Negative Urine Ketones Trace H Urine Occult Blood Negative Urine Nitrate Negative Urine Bilirubin Negative Urine Urobilinogen 1.0 Ur Leukocyte Esterase Negative Urine RBC 1-5/hpf Urine WBC 1-5/hpf Ur Squamous Epith Cells 1-5 /hpf Other Crystals 1+ amorphous Urine Bacteria Occasional (0-1) Urine Mucus 2+ H Ur Culture Indicated? Cult not indicated Chlamy pneumoniae PCR Not detected Adenovirus (PCR) Not detected B. pertussis DNA (PCR) Not detected B.parapertussis DNA PCR Not detected Coronavirus OC43 (PCR) Not detected Coronavirus HKU1 (PCR) Not detected Coronavirus 229E (PCR) Not detected SARS-CoV-2 (PCR) Not detected Coronavirus NL63 (PCR) Not detected Human Metapneumovir PCR Not detected Influenza Type A (PCR) Not detected Influenza Type B (PCR) Not detected M. pneumoniae (PCR) Not detected Parainfluenza 1 (PCR) Not detected Parainfluenza 2 (PCR) Not detected Parainfluenza 3 (PCR) Not detected Parainfluenza 4 (PCR) Not detected RSV (PCR) Not detected Entero/Rhino (PCR) Detected H 02/03/23 23:00 WBC RBC Hgb Hct MCV MCH MCHC RDW Plt Count Neut % (Auto) Lymph % (Auto) [place] % (Auto) Eos % (Auto) Baso % (Auto) Lymph # (Auto) [place] # (Auto) Baso # (Auto) Total Counted Seg Neutrophils % Band Neutrophils % Lymphocytes % (Manual) Monocytes % (Manual) Neutrophils # (Manual) Toxic Granulation RBC Morphology ABG pH 7.41 ABG pCO2 35.2 ABG pO2 76 L ABG HCO3 22 L ABG Total CO2 23 ABG O2 Saturation 95 ABG Base Excess -2.0 VBG pH VBG pCO2 VBG pO2 VBG HCO3 VBG Total CO2 VBG O2 Saturation VBG Base Excess FiO2 55 Sodium Potassium Chloride Carbon Dioxide BUN Creatinine Estimated GFR BUN/Creatinine Ratio Glucose Lactate Calcium Total Bilirubin AST ALT Alkaline Phosphatase NT-Pro-B Natriuret Pep Total Protein Albumin Globulin Albumin/Globulin Ratio Procalcitonin Urine Color Urine Appearance Urine pH Ur Specific Daniel Urine Protein Urine Glucose (UA) Urine Ketones Urine Occult Blood Urine Nitrate Urine Bilirubin Urine Urobilinogen Ur Leukocyte Esterase Urine RBC Urine WBC Ur Squamous Epith Cells Other Crystals Urine Bacteria Urine Mucus Ur Culture Indicated? Chlamy pneumoniae PCR Adenovirus (PCR) B. pertussis DNA (PCR) B.parapertussis DNA PCR Coronavirus OC43 (PCR) Coronavirus HKU1 (PCR) Coronavirus 229E (PCR) SARS-CoV-2 (PCR) Coronavirus NL63 (PCR) Human Metapneumovir PCR Influenza Type A (PCR) Influenza Type B (PCR) M. 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 Father No problems noted. Social History marital status: unmarried,single household members: family Tobacco & Substance Use Smoking Status: Former smoker alcohol intake: never substance use type: marijuana Assessment & Plan Assessment & Plan narrative: 1. Acute hypoxemic respiratory failure with septic shock secondary to pneumonia -patient found to have consolidation and infiltrates on chest imaging -CT also noted partial but apparently extensive mucous plugging on mainstem bronchus with associated left lower lobe collapse -case discussed with ICU team and transfer was accepted for higher level of care to include consideration of bronch -did receive IV methylpred, vancomycin, meropenem in ED -levophed started and intermittently weaned off for goal map 65 Patient has been accepted for transfer to [facility] ICU by Dr. Farias.
[2023-02-03] MEDS: fentaNYL 1,000 MCG in DEXTROSE 5% IN WATER 230 ML 15.933 MCG IV (07:34)
--- NOTE | 2023-02-03 07:38 | PC.NURSE ---
Report given to PERCY Hyde at [facility]. Pt awaiting [facility] transport at this time. Report given to PERCY Steele. Hand off of Versed gtt to PERCY Steele at this time.
[2023-02-03] MEDS: MIDAZOLAM 50 MG in DEXTROSE 5 % IN WATER 40 ML 6 MG IV (07:59)
== END 2023-02-03 08:52 | disposition short-term general hospital (02) ==
LOC: ED 20:35 → AC 02-03 04:51
PROVIDERS: Emergency Provider Emergency Medicine; PCP Family Medicine; Referring Provider Emergency Medicine; Visit Provider Internal Medicine
DX: J18.9 Pneumonia, unspecified organism (principal); A41.9 Sepsis, unspecified organism; R65.21 Severe sepsis with septic shock; J96.01 Acute respiratory failure with hypoxia; R00.0 Tachycardia, unspecified
CPT/HCPCS: 31500; 36415; 36569; 36600; 71045; 71275; 74018; 80053; 81001; 82805; 83605; 83880; 84145; 85007; 85025; 87040; 87633; 93005; 94002; 94640; 94799; 96365; 96366; 96367; 96368; 96375; 99285; 99291; 99292; J2185; J2250; J2704; J2930; J3010; J7613; Q9967

== ENCOUNTER → 2023-02-24 10:32 | Outpatient (CLI) | payer MEDICAID, SELFPAY ==
[2023-01-24 14:04] VITALS: O2SAT 100; BMI 23.0
[2023-02-03 05:40] VITALS: PULSE 88; RESP 16
[2023-02-24 12:08] LABS: Hematocrit 31.1 % (41-53); Hemoglobin 10.3 g/dL (13.5-17.5); Mean Corpuscular HGB Conc 33.2 % (30-36); Mean Corpuscular Hemoglobin 26.6 PG (26-34); Mean Corpuscular Volume 80.2 fL (80-100); Platelet Count 383 X10^3/uL (150-400); Red Blood Cell Count 3.88 X10^6/uL (4.5-5.9); Red Cell Distribution Width 20.2 % (11.6-14.8); White Blood Cell Count 3.9 X10^3/uL (4.5-11.0)
[2023-02-24 12:20] LABS: HEMOLYSIS < 15 (0-50); Iron 51 ug/dL (49-181)
[2023-02-24 12:25] LABS: Alanine Aminotransferase 17 IU/L (<50); Albumin 3.3 g/dL (3.5-5.0); Alkaline Phosphatase 75 U/L (38-126); Aspartate Aminotransferase 29 IU/L (17-59); BUN Creatinine Ratio 53.3 (6-22); Bilirubin Total 0.3 mg/dL (0.2-1.3); Blood Urea Nitrogen 16 mg/dL (9-20); Calcium 8.5 mg/dL (8.4-10.2); Carbon Dioxide 32 mmol/L (22-32); Chloride 94 mmol/L (98-107); Cholesterol 154 mg/dL (140-199); Estimated Glomerular Filt Rate > 60 mL/min (>60); Globulin 3.2 g/dL (1.7-4.1); Glucose 68 mg/dL (70-100); HDL Cholesterol 50 mg/dL (40-60); HEMOLYSIS < 15 (0-50); LDL Cholesterol Calculated 93 mg/dL (<100); Potassium 4.5 mmol/L (3.4-5.1); Sodium 131 mmol/L (137-145); Total Protein 6.5 g/dL (6.3-8.2); Triglycerides 56 mg/dL (35-150)
[2023-02-24 12:30] LABS: Percent Iron Saturation 16 % (20-50); Total Iron Binding Capacity 329 ug/dL (261-462); Transferrin 234 mg/dL (206-381)
[2023-02-24 12:55] LABS: Ferritin 331 ng/mL (18-464)
== END ==
PROVIDERS: PCP Internal Medicine; Referring Provider Internal Medicine; Visit Provider Internal Medicine
DX: E87.1 Hypo-osmolality and hyponatremia (principal); G81.14 Spastic hemiplegia affecting left nondominant side; I67.9 Cerebrovascular disease, unspecified; J69.0 Pneumonitis due to inhalation of food and vomit; Z13.220 Encounter for screening for lipoid disorders; D64.9 Anemia, unspecified
CPT/HCPCS: 36415; 80053; 80061; 82728; 83540; 83550; 84443; 85027

== ENCOUNTER 2023-03-23 20:02 | Emergency (ER) | payer MEDICAID, SELFPAY ==
[2023-01-24 14:04] VITALS: O2SAT 100; BMI 23.0
[2023-02-03 05:40] VITALS: PULSE 88; RESP 16
[2023-03-23] VITALS (102 sets, daily range): BP systolic 81–149; BP diastolic 51–102; PULSE 83–127; RESP 8–19; TEMP 36.1–36.7; O2SAT 71–100; BMI 20.9
--- NOTE | 2023-03-23 20:08 | RT ---
At 2007 on 03/23/23, pt placed on BiPAP (settings 19/5 100% -RT protocol) per Dr. Connolly for a short period of time in preparation for intubation.
[2023-03-23] MEDS: SODIUM CHLORIDE 0.9% 1,000 ML 1000 ML IV (20:15)
--- NOTE | 2023-03-23 20:16 | DI.RAD.S_ITS ---
P the ROCEDURE: XR CHEST 1V INDICATIONS: resp distress/intubation TECHNIQUE: One view of the chest was acquired. COMPARISON: [facility], CR, XR CHEST 1V, 02/02/2023, 22:14. FINDINGS: Surgical changes and devices: Endotracheal tube demonstrated with the tip 3.2 cm from the jessy. Lungs and pleura: There are persistent confluent left retrocardiac opacities consistent with consolidation or atelectasis. Small bilateral pleural effusions are present with associated compressive atelectasis. No left pneumothorax. No definite right pneumothorax, with right apex incompletely included on the current study. Mediastinum: Mediastinal contours appear unchanged. Heart size is normal. Bones and chest wall: No suspicious bony lesions. Overlying soft tissues appear unremarkable. IMPRESSION: 1. Small bilateral pleural effusions with left retrocardiac consolidation or atelectasis. Dictated by: Damien Shanks M.D. on 03/23/2023 at 21:14 Approved by: Damien Shanks M.D. on 03/23/2023 at 21:20
--- NOTE | 2023-03-23 20:24 | ED.SOB ---
HPI - SOB/Dyspnea General Chief Complaint: Shortness of Breath/Dyspnea Stated Complaint: SOB Time Seen by Provider: 03/23/23 20:24 Source: EMS Mode of arrival: EMS Limitations: altered mental status History of Present Illness HPI Narrative: Patient is a 42-year-old male with history of pediatric glioblastoma with residual hemiparesis, pseudo tubular palsy presenting today with sudden onset of shortness of breath. He actually lives independently mom checks on him regularly. She was noticing some shortness of breath little bit yesterday and then today found extreme shortness of breath EMS was called. He was immediately put on CPAP oxygen in the 80s. Mom also reports that he has had increasing fatigue but thought to be due secondary to iron deficiency and anemia. He is previously had pneumonia in December. Mom reports that he has been intubated numerous times he is currently full code. He came in with EMS on CPAP immediately was switched over to BiPAP oxygen went up but really not moving much air at all. Decision to intubate fairly quickly. Intubation went without complication. Patient has had recurrent left lower lobe pneumonia and aspiration. Previously had Radhika martinez he has been intubated a handful of times. Discussion with parents he is a full code Related Data Home Medications Medication Instructions Recorded Confirmed onabotulinumtoxinA 100 unit 200 unit IM ONCE 07/20/21 02/24/23 solution for injection (Botox) ferrous sulfate 325 mg (65 mg 130 mg PO DAILY 10/29/21 02/24/23 iron) tablet Previous Rx's Medication Instructions Recorded Battery Powered Lift #1 ea 03/02/18 Power Chair #1 ea 10/16/18 Semi-electric hospital bed #1 ea 11/17/18 Disabled Parking #1 01/15/19 Shower Chair #1 ea 07/04/19 XL mattress for semi-electric #1 ea 09/27/22 hospital bed menthol 0.44 %-zinc oxide 20.6 % 1 applic topical QID PRN skin 09/27/22 topical ointment (Calmoseptine) irritation #113 grams Mattress #1 ea 01/20/23 baclofen 5 mg/5 mL oral solution 5 mg (5 mL) PO DAILY #473 mL 01/20/23 sertraline 20 mg/mL oral 150 mg (7.5 mL) PO DAILY 30 days 01/20/23 concentrate #225 mL Allergies Allergy/AdvReac Type Severity Reaction Status Date / Time Penicillins [PENICILLINS] Allergy Severe RASH Verified 02/24/23 09:21 levofloxacin Allergy Intermediate Rash Verified 02/24/23 09:21 Patient History Medical History (Updated 03/24/23 @ 03:09 by Ladi Connolly DO) Anemia Cerebral palsy Depression Depression, major, recurrent Difficulty with speech Dysarthria Dysphagia Former smoker Gingivitis Hemiparesis (~1984) Hyponatremia Influenza A Jejunostomy tube present Pneumonia Protein calorie malnutrition Pseudobulbar palsy Recurrent aspiration pneumonia Sacral decubitus ulcer, stage III 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 Father No problems noted. Social History marital status: unmarried,single details: Lives independantly with caregivers household members: family Smoking Status: Former smoker alcohol intake: never substance use type: marijuana Smoking Status: Former smoker alcohol intake frequency: 0-2 drinks per day Substance Use Type: marijuana Exam Initial Vital Signs Initial Vital Signs: Vital Signs Temperature 97.7 F 03/23/23 20:05 Pulse Rate 109 H 03/23/23 20:05 Respiratory Rate 8 L 03/23/23 20:05 Blood Pressure 149/94 H 03/23/23 20:05 Pulse Oximetry 71 L 03/23/23 20:05 Oxygen Delivery Method CPAP 03/23/23 20:05 GENERAL: Chronically ill 42-year-old HEENT: Head atraumatic,EOMI, pupils reactive, face symmetric, [moist] mucous membranes CARDIOVASCULAR: Regular rate and rhythm without murmurs, rubs or gallops. RESPIRATORY: Decreased breath sounds by laterally tachypnea. Intubated ABDOMEN: Soft, nontender. Normoactive bowel sounds all 4 quadrants. No guarding or rebound. J-tube in place EXTREMITIES: Normal range of motion, no clubbing or edema. Neurovascularly intact NEUROLOGICAL: Eyes open minimal responsive SKIN: Warm, dry, no laceration, no petechiae, no rashes or lesions. Procedures Central Line Placement Right IJ: Patient Placed on Monitor/Pulse Ox: Yes MD Prep: mask, gown and gloves Central Line Prep: Chlorhexidine scrub and sterile drapes applied Local Anesthetic: lidocaine 1% Amount of anesthesia used (mL): 3 Ultrasound Used for Placement: Yes Central Line Lumen Inserted: triple Post Procedure: good blood return, all ports aspirated, flushed, capped, sterile dressing applied and line stabilization device Post Procedure X-Ray: tip of catheter in good position and no pneumothorax seen Patient Tolerated Procedure: Well and No complications Intubation sedative: Etomidate Mg Given: 30 paralytic: Succinylcholine Mg Given: 100 Laryngoscope: other ([place] scope) ET Tube Size: 7.5 ET Tube Uncuffed: No Tube Secured Depth (cm): 23 Tube Secured Location: lips Tube Placement Confirmation: Visualized tube passing through cords, Equal breath sounds bilaterally, No breath sounds over epigastrium, Confirmation by capnometry and Chest Xray Patient Tolerated Procedure: Well and No complications Course Orders Ordered: ED Orders 03/23/23 20:06 Lipase Stat PTT Partial Thromboplastin Cole Stat Procalcitonin Stat Prothrombin Time INR Stat 03/23/23 20:08 BiPAP Ventilatory Support RT PROTOCOL 03/23/23 20:15 EKG-12 Lead Stat RT Consult Eval and Treat NOW 03/23/23 20:16 XR chest 1V Stat 03/23/23 20:24 EKG-12 Lead Stat 03/23/23 20:26 Complete Blood Count AUTO DIFF Stat Comprehensive Metabolic Panel Stat Lactate (Lactic Acid) Stat NT-proBNP (BNP-Adult 18+) Stat Procalcitonin Stat Troponin & CK Cardiac Panel Stat 03/23/23 20:42 Ventilator Order 03/23/23 20:55 Urinalysis and Microscopic Stat 03/23/23 20:58 Blood Culture Stat 03/23/23 20:59 Respiratory Panel (Film Array) Stat 03/23/23 21:14 XR chest 1V Stat 03/23/23 21:43 Arterial Blood Gas Daily 03/23/23 22:01 CT angio chest PE protocol Stat 03/24/23 00:40 PTT Partial Thromboplastin Cole Q6H 03/24/23 06:30 PTT Partial Thromboplastin Cole Q6H 03/24/23 12:30 PTT Partial Thromboplastin Cole Q6H 03/24/23 18:30 PTT Partial Thromboplastin Cole Q6H 03/24/23 20:15 Arterial Blood Gas Daily 03/25/23 05:00 Hemoglobin and Hematocrit DAILY Platelet Count DAILY 03/25/23 20:15 Arterial Blood Gas Daily 03/26/23 05:00 Hemoglobin and Hematocrit DAILY Platelet Count DAILY 03/26/23 20:15 Arterial Blood Gas Daily 03/27/23 20:15 Arterial Blood Gas Daily 03/28/23 20:15 Arterial Blood Gas Daily 03/29/23 20:15 Arterial Blood Gas Daily 03/30/23 20:15 Arterial Blood Gas Daily 03/31/23 20:15 Arterial Blood Gas Daily 04/01/23 20:15 Arterial Blood Gas Daily 04/02/23 20:15 Arterial Blood Gas Daily 04/03/23 20:15 Arterial Blood Gas Daily 04/04/23 20:15 Arterial Blood Gas Daily 04/05/23 20:15 Arterial Blood Gas Daily Chlorhexidine Gluconate (Chlorhexidine Gluconate 15 Ml Cup) 15 ml PO Q6HR JOSE MANUEL Fentanyl (Fentanyl 100 Mcg/2 Ml Inj) 50 mcg IV Q30MIN PRN PRN Reason: Pain, Severe (7-10)/ agitation Last Admin: 03/23/23 21:40 Dose: 50 mcg Documented By: RUCHI Fentanyl 1,000 mcg/ Dextrose 250 mls @ 12.994 mls/hr IV TITRATE JOSE MANUEL; Protocol Last Titration: 03/23/23 21:27 Dose: 1 mcg/kg/hr, 18.563 mls/hr Documented By: Titration: 03/23/23 21:15 Dose: 0.9 mcg/kg/hr, 16.707 mls/hr Documented By: Admin: 03/23/23 20:36 Dose: 0.7 mcg/kg/hr, 12.994 mls/hr Documented By: JENNYFER Propofol (Propofol) 1,000 mg in 100 mls @ 2.228 mls/hr IV TITRATE JOSE MANUEL; Protocol Last Titration: 03/23/23 21:26 Dose: 15 mcg/kg/min, 6.683 mls/hr Documented By: Titration: 03/23/23 21:15 Dose: 7.5 mcg/kg/min, 3.341 mls/hr Documented By: Admin: 03/23/23 20:33 Dose: 5 mcg/kg/min, 2.228 mls/hr Documented By: JENNYFER Sodium Chloride (Normal Saline 0.9%) 1,000 mls @ 200 mls/hr IV CONT JOSE MANUEL Last Infusion: 03/24/23 02:26 Dose: 0 mls/hr Documented By: Admin: 03/23/23 21:21 Dose: 200 mls/hr Documented By: JENNYFER NOREPINEPHRINE BITARTRATE/D5W (Levophed) 4 mg in 250 mls @ 27.845 mls/hr IV TITRATE JOSE MANUEL; Protocol Last Titration: 03/24/23 03:13 Dose: 0.12 mcg/kg/min, 33.8 mls/hr Documented By: Titration: 03/24/23 02:54 Dose: 0.09 mcg/kg/min, 26.2 mls/hr Documented By: Admin: 03/24/23 01:50 Dose: 0.2 mcg/kg/min, 55.69 mls/hr Documented By: DKNina Titration: 03/24/23 01:50 Dose: 0.2 mcg/kg/min, 55.69 mls/hr Documented By: Titration: 03/23/23 21:53 Dose: 0.2 mcg/kg/min, 55.69 mls/hr Documented By: Titration: 03/23/23 21:37 Dose: 0.1 mcg/kg/min, 27.845 mls/hr Documented By: Titration: 03/23/23 21:15 Dose: 0 mcg/kg/min, 0 mls/hr Documented By: Admin: 03/23/23 20:44 Dose: 0.1 mcg/kg/min, 27.845 mls/hr Documented By: JENNYFER Sodium Chloride (Normal Saline 0.9%) 1,000 mls @ 75 mls/hr IV BOLUS ONE Stop: 03/24/23 10:33 Last Admin: 03/23/23 21:24 Dose: Not Given Documented By: JENNYFER Sodium Chloride (Normal Saline 0.9%) 1,000 mls @ 200 mls/hr IV CONT JOSE MANUEL Last Admin: 03/24/23 00:40 Dose: 200 mls/hr Documented By: TONY Heparin Sodium/Dextrose (Heparin Drip) 25,000 unit in 500 mls @ 24 mls/hr IV CONT JOSE MANUEL; Protocol Last Titration: 03/24/23 02:06 Dose: 0 unit/hr, 0 mls/hr Documented By: TONY Co-signed By: IVETTE Admin: 03/24/23 00:59 Dose: 1,200 unit/hr, 24 mls/hr Documented By: TONY Co-signed By: IVETTE Ondansetron HCl (Ondansetron 4 Mg/2 Ml Inj) 4 mg IV NOW PRN PRN Reason: Nausea And Vomiting Ondansetron HCl (Ondansetron 4 Mg Odt) 4 mg SL NOW PRN PRN Reason: Nausea And Vomiting Discontinued Medications Chlorhexidine Gluconate (Chlorhexidine Gluconate 15 Ml Cup) 15 ml PO Q6HR [facility] Etomidate (Etomidate 2 Mg/Ml 10 Ml Vial) 30 mg IV NOW ONE Stop: 03/23/23 20:21 Last Admin: 03/23/23 20:34 Dose: 30 mg Documented By: JENNYFER Furosemide (Furosemide 40 Mg/4 Ml Vial) 20 mg IV NOW ONE Stop: 03/23/23 21:57 Last Admin: 03/23/23 22:54 Dose: 20 mg Documented By: RUCHI Sodium Chloride (Normal Saline 0.9%) 1,000 mls @ 1,000 mls/hr IV BOLUS ONE Stop: 03/23/23 21:14 Last Infusion: 03/23/23 21:00 Dose: 0 mls/hr Documented By: Admin: 03/23/23 20:15 Dose: 1,000 mls/hr Documented By: JENNYFER Cefepime HCl 2 gm/ Sodium (Chloride) 100 mls @ 200 mls/hr IV NOW ONE Stop: 03/23/23 20:25 Last Infusion: 03/23/23 22:27 Dose: 0 mls/hr Documented By: Admin: 03/23/23 21:33 Dose: 200 mls/hr Documented By: RUCHI Vancomycin HCl/Dextrose (Vancomycin) 1,500 mg in 300 mls @ 150 mls/hr IV NOW ONE Stop: 03/23/23 22:59 Last Infusion: 03/24/23 00:15 Dose: 0 mls/hr Documented By: Admin: 03/23/23 22:57 Dose: 150 mls/hr Documented By: RUCHI Heparin Sodium/Dextrose (Heparin Drip) 25,000 unit in 500 mls @ 17.815 mls/hr IV CONT JOSE MANUEL; Protocol Last Admin: 03/24/23 01:03 Dose: Not Given Documented By: TONY Sodium Chloride (Normal Saline 0.9%) 1,000 mls @ 1,000 mls/hr IV BOLUS ONE Stop: 03/24/23 04:20 Last Infusion: 03/24/23 03:57 Dose: 0 mls/hr Documented By: Admin: 03/24/23 03:25 Dose: 1,000 mls/hr Documented By: IVETTE Ketamine HCl (Ketamine 500 Mg/10 Ml Inj) 200 mg IV NOW ONE Stop: 03/23/23 20:13 Last Admin: 03/23/23 21:23 Dose: Not Given Documented By: JENNYFER Succinylcholine Chloride (Succinylcholine 200 Mg/10 Ml Vial) 100 mg IV NOW ONE Stop: 03/23/23 20:13 Last Admin: 03/23/23 20:34 Dose: 100 mg Documented By: JENNYFER Vital Signs Vital signs: Vital Signs - 8 hr 03/23/23 20:50 03/23/23 20:51 03/23/23 20:51 Temperature Pulse Rate 107 H 106 H Respiratory Rate 18 18 Blood Pressure 114/71 Pulse Oximetry 100 100 Oxygen Delivery Method 03/23/23 20:52 03/23/23 20:54 03/23/23 20:54 Temperature Pulse Rate 107 H 103 H Respiratory Rate 18 18 Blood Pressure 107/70 Pulse Oximetry 100 100 Oxygen Delivery Method 03/23/23 20:56 03/23/23 20:57 03/23/23 20:57 Temperature Pulse Rate 104 H 104 H Respiratory Rate 18 18 Blood Pressure 106/67 Pulse Oximetry 100 100 Oxygen Delivery Method 03/23/23 20:58 03/23/23 21:00 03/23/23 21:00 Temperature Pulse Rate 105 H 109 H Respiratory Rate 18 18 Blood Pressure 108/64 Pulse Oximetry 100 100 Oxygen Delivery Method Mechanical Ventilation 03/23/23 21:02 03/23/23 21:03 03/23/23 21:03 Temperature 97.0 F L Pulse Rate 113 H 113 H Respiratory Rate 15 15 Blood Pressure 106/61 Pulse Oximetry 100 100 Oxygen Delivery Method 03/23/23 21:04 03/23/23 21:06 03/23/23 21:06 Temperature 97.0 F L 97.2 F L Pulse Rate 114 H 114 H Respiratory Rate 15 15 Blood Pressure 109/64 Pulse Oximetry 100 100 Oxygen Delivery Method 03/23/23 21:08 03/23/23 21:09 03/23/23 21:09 Temperature 97.3 F L 97.5 F L Pulse Rate 114 H 112 H Respiratory Rate 15 15 Blood Pressure 97/65 Pulse Oximetry 100 100 Oxygen Delivery Method 03/23/23 21:10 03/23/23 21:12 03/23/23 21:14 Temperature 97.5 F L 97.5 F L 97.7 F Pulse Rate 113 H 109 H 112 H Respiratory Rate 15 15 15 Blood Pressure Pulse Oximetry 100 100 100 Oxygen Delivery Method 03/23/23 21:16 03/23/23 21:18 03/23/23 21:18 Temperature 97.7 F 97.7 F Pulse Rate 110 H 107 H Respiratory Rate 19 Blood Pressure 137/102 H Pulse Oximetry 100 100 Oxygen Delivery Method 03/23/23 21:20 03/23/23 21:21 03/23/23 21:21 Temperature 97.9 F 97.9 F Pulse Rate 107 H 110 H Respiratory Rate Blood Pressure 121/93 H Pulse Oximetry 100 100 Oxygen Delivery Method 03/23/23 21:22 03/23/23 21:24 03/23/23 21:26 Temperature 97.9 F 97.9 F 97.9 F Pulse Rate 111 H 112 H 112 H Respiratory Rate Blood Pressure Pulse Oximetry 100 100 100 Oxygen Delivery Method 03/23/23 21:27 03/23/23 21:27 03/23/23 21:28 Temperature 97.9 F 97.9 F Pulse Rate 112 H 111 H Respiratory Rate Blood Pressure 145/84 H Pulse Oximetry 95 Oxygen Delivery Method 03/23/23 21:30 03/23/23 21:32 03/23/23 22:03 Temperature 97.9 F 97.9 F Pulse Rate 111 H 111 H Respiratory Rate Blood Pressure 102/83 Pulse Oximetry 93 Oxygen Delivery Method 03/23/23 22:04 03/23/23 22:06 03/23/23 22:08 Temperature 98.1 F 97.9 F Pulse Rate 92 H 92 H Respiratory Rate 15 15 Blood Pressure 109/76 Pulse Oximetry 100 100 Oxygen Delivery Method 03/23/23 22:08 03/23/23 22:10 03/23/23 22:10 Temperature 97.9 F 97.9 F Pulse Rate 95 H 93 H Respiratory Rate 15 15 Blood Pressure 101/81 Pulse Oximetry 98 97 Oxygen Delivery Method 03/23/23 22:12 03/23/23 22:12 03/23/23 22:14 Temperature 97.9 F 97.9 F Pulse Rate 93 H 92 H Respiratory Rate 15 15 Blood Pressure 105/83 Pulse Oximetry 92 88 L Oxygen Delivery Method 03/23/23 22:15 03/23/23 22:15 03/23/23 22:16 Temperature 97.9 F 97.9 F Pulse Rate 92 H 92 H Respiratory Rate 15 15 Blood Pressure 118/78 Pulse Oximetry 98 96 Oxygen Delivery Method 03/23/23 22:18 03/23/23 22:19 03/23/23 22:19 Temperature 97.9 F 97.9 F Pulse Rate 91 H 92 H Respiratory Rate 15 15 Blood Pressure 114/77 Pulse Oximetry 96 98 Oxygen Delivery Method 03/23/23 22:20 03/23/23 22:22 03/23/23 22:24 Temperature 97.9 F 97.9 F 97.9 F Pulse Rate 91 H 92 H 92 H Respiratory Rate 15 19 15 Blood Pressure Pulse Oximetry 94 93 99 Oxygen Delivery Method 03/23/23 22:25 03/23/23 22:25 03/23/23 22:26 Temperature 97.9 F 97.9 F Pulse Rate 92 H 93 H Respiratory Rate 15 15 Blood Pressure 101/67 Pulse Oximetry 99 99 Oxygen Delivery Method 03/23/23 22:28 03/23/23 22:30 03/23/23 22:32 Temperature 97.9 F 97.7 F 97.5 F L Pulse Rate 92 H 91 H 93 H Respiratory Rate 15 16 16 Blood Pressure Pulse Oximetry 98 98 99 Oxygen Delivery Method 03/23/23 22:34 03/23/23 22:36 03/23/23 22:38 Temperature 97.7 F 97.7 F 97.7 F Pulse Rate 91 H 90 89 Respiratory Rate 15 15 16 Blood Pressure Pulse Oximetry 99 98 99 Oxygen Delivery Method 03/23/23 22:40 03/23/23 22:42 03/23/23 22:44 Temperature 97.7 F 97.7 F 97.5 F L Pulse Rate 86 85 85 Respiratory Rate 16 15 15 Blood Pressure Pulse Oximetry 98 99 99 Oxygen Delivery Method 03/23/23 22:45 03/23/23 22:45 03/23/23 22:46 Temperature 97.5 F L 97.5 F L Pulse Rate 86 85 Respiratory Rate 14 15 Blood Pressure 117/80 Pulse Oximetry 98 100 Oxygen Delivery Method 03/23/23 22:48 03/23/23 22:48 03/23/23 22:50 Temperature 97.5 F L 97.3 F L Pulse Rate 85 86 Respiratory Rate 15 15 Blood Pressure 109/81 Pulse Oximetry 99 100 Oxygen Delivery Method 03/23/23 22:51 03/23/23 22:51 03/23/23 22:52 Temperature 97.3 F L 97.3 F L Pulse Rate 86 86 Respiratory Rate 15 15 Blood Pressure 105/75 Pulse Oximetry 100 100 Oxygen Delivery Method 03/23/23 22:54 03/23/23 22:54 03/23/23 22:56 Temperature 97.3 F L 97.3 F L Pulse Rate 85 85 Respiratory Rate 15 15 Blood Pressure 98/73 Pulse Oximetry 100 100 Oxygen Delivery Method 03/23/23 22:58 03/23/23 23:00 03/23/23 23:00 Temperature 97.3 F L 97.3 F L Pulse Rate 85 85 Respiratory Rate 15 15 Blood Pressure 98/66 Pulse Oximetry 100 100 Oxygen Delivery Method 03/23/23 23:02 03/23/23 23:03 03/23/23 23:03 Temperature 97.2 F L 97.2 F L Pulse Rate 85 85 Respiratory Rate 15 15 Blood Pressure 101/70 Pulse Oximetry 100 100 Oxygen Delivery Method 03/23/23 23:04 03/23/23 23:06 03/23/23 23:07 Temperature 97.2 F L Pulse Rate 85 85 85 Respiratory Rate 15 15 15 Blood Pressure Pulse Oximetry 100 100 100 Oxygen Delivery Method 03/23/23 23:07 03/23/23 23:08 03/23/23 23:09 Temperature 97.2 F L Pulse Rate 85 85 Respiratory Rate 15 15 Blood Pressure 96/67 Pulse Oximetry 100 100 Oxygen Delivery Method 03/23/23 23:09 03/23/23 23:10 03/23/23 23:12 Temperature 97.2 F L Pulse Rate 85 Respiratory Rate 15 Blood Pressure 97/61 102/65 Pulse Oximetry 100 Oxygen Delivery Method 03/23/23 23:12 03/23/23 23:16 03/23/23 23:16 Temperature 97.2 F L 97.2 F L Pulse Rate 85 85 Respiratory Rate 15 15 Blood Pressure 96/69 Pulse Oximetry 100 100 Oxygen Delivery Method 03/23/23 23:18 03/23/23 23:18 03/23/23 23:21 Temperature 97.2 F L 97.2 F L Pulse Rate 85 85 Respiratory Rate 15 15 Blood Pressure 97/69 Pulse Oximetry 100 100 Oxygen Delivery Method 03/23/23 23:21 03/23/23 23:24 03/23/23 23:24 Temperature 97.2 F L Pulse Rate 84 Respiratory Rate 15 Blood Pressure 94/72 95/72 Pulse Oximetry 100 Oxygen Delivery Method 03/23/23 23:27 03/23/23 23:27 03/23/23 23:28 Temperature 97.2 F L 97.2 F L Pulse Rate 84 84 Respiratory Rate 15 15 Blood Pressure 92/77 Pulse Oximetry 100 100 Oxygen Delivery Method 03/23/23 23:31 03/23/23 23:31 03/23/23 23:35 Temperature 97.2 F L Pulse Rate 84 Respiratory Rate 15 Blood Pressure 121/67 102/68 Pulse Oximetry 100 Oxygen Delivery Method 03/23/23 23:35 03/23/23 23:40 03/23/23 23:40 Temperature 97.0 F L 97.0 F L Pulse Rate 83 84 Respiratory Rate 15 15 Blood Pressure 108/69 Pulse Oximetry 100 100 Oxygen Delivery Method 03/23/23 23:45 03/23/23 23:45 03/23/23 23:51 Temperature 97.0 F L 97.0 F L Pulse Rate 84 91 H Respiratory Rate 15 15 Blood Pressure 103/73 Pulse Oximetry 100 100 Oxygen Delivery Method 03/23/23 23:51 03/23/23 23:55 03/23/23 23:55 Temperature 97.0 F L Pulse Rate 85 Respiratory Rate 15 Blood Pressure 114/74 106/75 Pulse Oximetry 100 Oxygen Delivery Method 03/24/23 00:00 03/24/23 00:00 03/24/23 00:10 Temperature 97.0 F L Pulse Rate 84 Respiratory Rate 15 Blood Pressure 103/74 107/77 Pulse Oximetry 100 Oxygen Delivery Method 03/24/23 00:10 03/24/23 00:20 03/24/23 00:20 Temperature 97.0 F L 97.0 F L Pulse Rate 84 84 Respiratory Rate 15 15 Blood Pressure 110/80 Pulse Oximetry 100 100 Oxygen Delivery Method 03/24/23 00:30 03/24/23 00:30 03/24/23 00:40 Temperature 97.0 F L Pulse Rate 84 Respiratory Rate 15 Blood Pressure 109/75 110/84 Pulse Oximetry 100 Oxygen Delivery Method 03/24/23 00:40 03/24/23 00:50 03/24/23 00:50 Temperature 97.0 F L 97.0 F L Pulse Rate 84 85 Respiratory Rate 15 15 Blood Pressure 110/71 Pulse Oximetry 100 100 Oxygen Delivery Method 03/24/23 01:00 03/24/23 01:00 03/24/23 01:10 Temperature 97.0 F L Pulse Rate 85 Respiratory Rate 15 Blood Pressure 108/72 102/74 Pulse Oximetry 99 Oxygen Delivery Method 03/24/23 01:10 03/24/23 01:20 03/24/23 01:21 Temperature 97.0 F L 97.0 F L 97.0 F L Pulse Rate 84 85 85 Respiratory Rate 15 15 15 Blood Pressure Pulse Oximetry 100 99 99 Oxygen Delivery Method 03/24/23 01:21 03/24/23 01:30 03/24/23 01:30 Temperature 97.2 F L Pulse Rate 85 Respiratory Rate 15 Blood Pressure 106/72 101/73 Pulse Oximetry 99 Oxygen Delivery Method 03/24/23 01:40 03/24/23 01:40 03/24/23 01:50 Temperature 97.3 F L Pulse Rate 85 Respiratory Rate 15 Blood Pressure 100/73 90/74 Pulse Oximetry 99 Oxygen Delivery Method 03/24/23 01:50 03/24/23 02:00 03/24/23 02:00 Temperature 97.3 F L 97.3 F L Pulse Rate 84 84 Respiratory Rate 15 15 Blood Pressure 95/79 Pulse Oximetry 99 99 Oxygen Delivery Method 03/24/23 02:10 03/24/23 02:10 03/24/23 02:20 Temperature 97.5 F L Pulse Rate 84 Respiratory Rate 15 Blood Pressure 99/80 100/77 Pulse Oximetry 99 Oxygen Delivery Method 03/24/23 02:20 03/24/23 02:30 03/24/23 02:30 Temperature Pulse Rate 84 84 Respiratory Rate 15 15 Blood Pressure 100/75 Pulse Oximetry 99 98 Oxygen Delivery Method 03/24/23 02:40 03/24/23 02:40 03/24/23 02:50 Temperature Pulse Rate 86 Respiratory Rate 15 Blood Pressure 96/79 96/76 Pulse Oximetry 99 Oxygen Delivery Method 03/24/23 02:50 03/24/23 03:00 03/24/23 03:01 Temperature 97.7 F Pulse Rate 86 89 89 Respiratory Rate 15 15 15 Blood Pressure Pulse Oximetry 99 100 100 Oxygen Delivery Method 03/24/23 03:01 03/24/23 03:10 03/24/23 03:11 Temperature 97.7 F 97.9 F 97.9 F Pulse Rate 90 90 Respiratory Rate 15 15 Blood Pressure 99/46 L Pulse Oximetry 99 99 Oxygen Delivery Method 03/24/23 03:11 03/24/23 03:20 03/24/23 03:26 Temperature 97.9 F 97.9 F Pulse Rate 89 84 Respiratory Rate 15 15 Blood Pressure 77/46 L Pulse Oximetry 91 99 Oxygen Delivery Method 03/24/23 03:26 03/24/23 03:30 03/24/23 03:31 Temperature 97.7 F Pulse Rate 83 Respiratory Rate 15 Blood Pressure 92/69 99/63 Pulse Oximetry 99 Oxygen Delivery Method 03/24/23 03:31 03/24/23 03:40 03/24/23 03:41 Temperature Pulse Rate 84 81 82 Respiratory Rate 15 15 15 Blood Pressure Pulse Oximetry 94 91 99 Oxygen Delivery Method 03/24/23 03:41 03/24/23 03:50 03/24/23 03:51 Temperature Pulse Rate 79 79 Respiratory Rate 15 15 Blood Pressure 96/69 Pulse Oximetry 97 98 Oxygen Delivery Method 03/24/23 03:51 03/24/23 04:00 03/24/23 04:01 Temperature Pulse Rate 79 Respiratory Rate 15 Blood Pressure 101/68 91/63 Pulse Oximetry 99 Oxygen Delivery Method 03/24/23 04:01 03/24/23 04:10 03/24/23 04:10 Temperature 97.2 F L 97.2 F L Pulse Rate 80 80 Respiratory Rate 15 15 Blood Pressure 88/67 L Pulse Oximetry 93 100 Oxygen Delivery Method MDM - SOB/Dyspnea Lab Data 03/23/23 20:26 03/23/23 20:26 Labs: Lab Results 03/23/23 03/23/23 03/23/23 Range/Units 20:06 20:06 20:26 WBC 13.5 H (4.5-11.0) X10^3/uL RBC 4.58 (4.5-5.9) X10^6/uL Hgb 11.8 L (13.5-17.5) g/dL Hct 35.3 L (41-53) % MCV 77.1 L (80-100) fL MCH 25.8 L (26-34) PG MCHC 33.4 (30-36) % RDW 17.6 H (11.6-14.8) % Plt Count 833 H (150-400) X10^3/uL Neut % (Auto) 73.6 (50-75) % Lymph % (Auto) 14.6 L (25-40) % [place] % (Auto) 8.4 (3-14) % Eos % (Auto) 2.3 (2-4) % Baso % (Auto) 1.1 (0-2) % Neut # (Auto) 73119 H (0021-2427) /uL Lymph # (Auto) 2000 (8423-8988) /uL [place] # (Auto) 1100 H (0-900) /uL Eos # (Auto) 300 (0-450) /uL Baso # (Auto) 200 H (0-100) /uL RBC Morphology See below Hypochromasia 1+ H Anisocytosis 2+ H Microcytosis 2+ H PT 13.5 H (10.1-12.7) SECONDS INR 1.2 (0.9-1.3) APTT 44 H (26-36) SECONDS ABG pH (7.35-7.45) ABG pCO2 (35-45) mmHg ABG pO2 (80-100) mmHg ABG HCO3 (23-27) mmol/L ABG Total CO2 (23-27) mmol/L ABG O2 Saturation (95-100) % ABG Base Excess (-2-3) mmol/L FiO2 Sodium (137-145) mmol/L Potassium (3.4-5.1) mmol/L Chloride (98-107) mmol/L Carbon Dioxide (22-32) mmol/L BUN (9-20) mg/dL Creatinine (0.66-1.25) mg/dL Estimated GFR (>60) mL/min BUN/Creatinine Ratio (6-22) Glucose (70-100) mg/dL Lactate (0.7-2.1) mmol/L Calcium (8.4-10.2) mg/dL Total Bilirubin (0.2-1.3) mg/dL AST (17-59) IU/L ALT (<50) IU/L Alkaline Phosphatase (38-126) U/L Total Creatine Kinase (55-170) U/L Troponin I (0.01-0.034) ng/mL NT-Pro-B Natriuret Pep (<125) pg/mL Total Protein (6.3-8.2) g/dL Albumin (3.5-5.0) g/dL Globulin (1.7-4.1) g/dL Albumin/Globulin Ratio (1.0-2.8) Lipase 82 (23-300) U/L Procalcitonin 0.11 (<0.5) ng/mL Urine Color Urine Appearance Urine pH (4.5-8.0) Ur Specific [place] (1.000-1.035) Urine Protein (Negative) Urine Glucose (UA) (Negative) g/dL Urine Ketones (NEGATIVE) Urine Occult Blood (Negative) Urine Nitrate (Negative) Urine Bilirubin (NEGATIVE) Urine Urobilinogen (0.2) E.U./dL Ur Leukocyte Esterase (NEGATIVE) Urine RBC (0-5/HPF) Urine WBC (0-5/HPF) Ur Squamous Epith Cells (0-5/HPF) Amorphous Sediment Urine Bacteria (None) RBC Casts (None) Ur Culture Indicated? Chlamy pneumoniae PCR (Not Detect) Adenovirus (PCR) (Not Detect) B. pertussis DNA (PCR) (Not Detecte) B.parapertussis DNA PCR (Not Detecte) Coronavirus OC43 (PCR) (Not Detect) Coronavirus HKU1 (PCR) (Not Detect) Coronavirus 229E (PCR) (Not Detect) SARS-CoV-2 (PCR) (Not Detecte) Coronavirus NL63 (PCR) (Not Detect) Human Metapneumovir PCR (Not Detect) Influenza Type A (PCR) (Not Detect) Influenza Type B (PCR) (Not Detect) M. pneumoniae (PCR) (Not Detect) Parainfluenza 1 (PCR) (Not Detect) Parainfluenza 2 (PCR) (Not Detect) Parainfluenza 3 (PCR) (Not Detect) Parainfluenza 4 (PCR) (Not Detect) RSV (PCR) (Not Detect) Entero/Rhino (PCR) (Not Detect) 03/23/23 03/23/23 03/23/23 Range/Units 20:26 20:26 20:55 WBC (4.5-11.0) X10^3/uL RBC (4.5-5.9) X10^6/uL Hgb (13.5-17.5) g/dL Hct (41-53) % MCV (80-100) fL MCH (26-34) PG MCHC (30-36) % RDW (11.6-14.8) % Plt Count (150-400) X10^3/uL Neut % (Auto) (50-75) % Lymph % (Auto) (25-40) % [place] % (Auto) (3-14) % Eos % (Auto) (2-4) % Baso % (Auto) (0-2) % Neut # (Auto) (8992-2391) /uL Lymph # (Auto) (7817-9090) /uL [place] # (Auto) (0-900) /uL Eos # (Auto) (0-450) /uL Baso # (Auto) (0-100) /uL RBC Morphology Hypochromasia Anisocytosis Microcytosis PT (10.1-12.7) SECONDS INR (0.9-1.3) APTT (26-36) SECONDS ABG pH (7.35-7.45) ABG pCO2 (35-45) mmHg ABG pO2 (80-100) mmHg ABG HCO3 (23-27) mmol/L ABG Total CO2 (23-27) mmol/L ABG O2 Saturation (95-100) % ABG Base Excess (-2-3) mmol/L FiO2 Sodium 123 L (137-145) mmol/L Potassium 4.5 (3.4-5.1) mmol/L Chloride 89 L (98-107) mmol/L Carbon Dioxide 25 (22-32) mmol/L BUN 17 (9-20) mg/dL Creatinine 0.26 L (0.66-1.25) mg/dL Estimated GFR > 60 (>60) mL/min BUN/Creatinine Ratio 65.4 H (6-22) Glucose 115 H (70-100) mg/dL Lactate 2.0 (0.7-2.1) mmol/L Calcium 8.7 (8.4-10.2) mg/dL Total Bilirubin 0.4 (0.2-1.3) mg/dL AST 26 (17-59) IU/L ALT 16 (<50) IU/L Alkaline Phosphatase 137 H (38-126) U/L Total Creatine Kinase 41 L (55-170) U/L Troponin I < 0.012 (0.01-0.034) ng/mL NT-Pro-B Natriuret Pep 1140 H (<125) pg/mL Total Protein 7.8 (6.3-8.2) g/dL Albumin 3.7 (3.5-5.0) g/dL Globulin 4.1 (1.7-4.1) g/dL Albumin/Globulin Ratio 0.9 L (1.0-2.8) Lipase (23-300) U/L Procalcitonin 0.11 (<0.5) ng/mL Urine Color Yellow Urine Appearance Clear Urine pH 6.0 (4.5-8.0) Ur Specific Orchard 1.020 (1.000-1.035) Urine Protein 1+ H (Negative) Urine Glucose (UA) Negative (Negative) g/dL Urine Ketones 1+ H (NEGATIVE) Urine Occult Blood Trace-intact (Negative) Urine Nitrate Negative (Negative) Urine Bilirubin Negative (NEGATIVE) Urine Urobilinogen 1.0 (0.2) E.U./dL Ur Leukocyte Esterase Negative (NEGATIVE) Urine RBC 1-5/hpf (0-5/HPF) Urine WBC None seen (0-5/HPF) Ur Squamous Epith Cells None seen (0-5/HPF) Amorphous Sediment 1+ Urine Bacteria None seen (None) RBC Casts 0-1/lpf (None) Ur Culture Indicated? Cult not indicated Chlamy pneumoniae PCR (Not Detect) Adenovirus (PCR) (Not Detect) B. pertussis DNA (PCR) (Not Detecte) B.parapertussis DNA PCR (Not Detecte) Coronavirus OC43 (PCR) (Not Detect) Coronavirus HKU1 (PCR) (Not Detect) Coronavirus 229E (PCR) (Not Detect) SARS-CoV-2 (PCR) (Not Detecte) Coronavirus NL63 (PCR) (Not Detect) Human Metapneumovir PCR (Not Detect) Influenza Type A (PCR) (Not Detect) Influenza Type B (PCR) (Not Detect) M. pneumoniae (PCR) (Not Detect) Parainfluenza 1 (PCR) (Not Detect) Parainfluenza 2 (PCR) (Not Detect) Parainfluenza 3 (PCR) (Not Detect) Parainfluenza 4 (PCR) (Not Detect) RSV (PCR) (Not Detect) Entero/Rhino (PCR) (Not Detect) 03/23/23 03/23/23 03/24/23 Range/Units 20:59 21:43 00:40 WBC (4.5-11.0) X10^3/uL RBC (4.5-5.9) X10^6/uL Hgb (13.5-17.5) g/dL Hct (41-53) % MCV (80-100) fL MCH (26-34) PG MCHC (30-36) % RDW (11.6-14.8) % Plt Count (150-400) X10^3/uL Neut % (Auto) (50-75) % Lymph % (Auto) (25-40) % [place] % (Auto) (3-14) % Eos % (Auto) (2-4) % Baso % (Auto) (0-2) % Neut # (Auto) (3209-3586) /uL Lymph # (Auto) (1342-3661) /uL [place] # (Auto) (0-900) /uL Eos # (Auto) (0-450) /uL Baso # (Auto) (0-100) /uL RBC Morphology Hypochromasia Anisocytosis Microcytosis PT (10.1-12.7) SECONDS INR (0.9-1.3) APTT 40 H (26-36) SECONDS ABG pH 7.38 (7.35-7.45) ABG pCO2 41.6 (35-45) mmHg ABG pO2 179 H (80-100) mmHg ABG HCO3 25 (23-27) mmol/L ABG Total CO2 26 (23-27) mmol/L ABG O2 Saturation 100 (95-100) % ABG Base Excess -1.0 (-2-3) mmol/L FiO2 60 Sodium (137-145) mmol/L Potassium (3.4-5.1) mmol/L Chloride (98-107) mmol/L Carbon Dioxide (22-32) mmol/L BUN (9-20) mg/dL Creatinine (0.66-1.25) mg/dL Estimated GFR (>60) mL/min BUN/Creatinine Ratio (6-22) Glucose (70-100) mg/dL Lactate (0.7-2.1) mmol/L Calcium (8.4-10.2) mg/dL Total Bilirubin (0.2-1.3) mg/dL AST (17-59) IU/L ALT (<50) IU/L Alkaline Phosphatase (38-126) U/L Total Creatine Kinase (55-170) U/L Troponin I (0.01-0.034) ng/mL NT-Pro-B Natriuret Pep (<125) pg/mL Total Protein (6.3-8.2) g/dL Albumin (3.5-5.0) g/dL Globulin (1.7-4.1) g/dL Albumin/Globulin Ratio (1.0-2.8) Lipase (23-300) U/L Procalcitonin (<0.5) ng/mL Urine Color Urine Appearance Urine pH (4.5-8.0) Ur Specific [place] (1.000-1.035) Urine Protein (Negative) Urine Glucose (UA) (Negative) g/dL Urine Ketones (NEGATIVE) Urine Occult Blood (Negative) Urine Nitrate (Negative) Urine Bilirubin (NEGATIVE) Urine Urobilinogen (0.2) E.U./dL Ur Leukocyte Esterase (NEGATIVE) Urine RBC (0-5/HPF) Urine WBC (0-5/HPF) Ur Squamous Epith Cells (0-5/HPF) Amorphous Sediment Urine Bacteria (None) RBC Casts (None) Ur Culture Indicated? Chlamy pneumoniae PCR Not detected (Not Detect) Adenovirus (PCR) Not detected (Not Detect) B. pertussis DNA (PCR) Not detected (Not Detecte) B.parapertussis DNA PCR Not detected (Not Detecte) Coronavirus OC43 (PCR) Not detected (Not Detect) Coronavirus HKU1 (PCR) Not detected (Not Detect) Coronavirus 229E (PCR) Not detected (Not Detect) SARS-CoV-2 (PCR) Not detected (Not Detecte) Coronavirus NL63 (PCR) Not detected (Not Detect) Human Metapneumovir PCR Not detected (Not Detect) Influenza Type A (PCR) Not detected (Not Detect) Influenza Type B (PCR) Not detected (Not Detect) M. pneumoniae (PCR) Not detected (Not Detect) Parainfluenza 1 (PCR) Not detected (Not Detect) Parainfluenza 2 (PCR) Not detected (Not Detect) Parainfluenza 3 (PCR) Not detected (Not Detect) Parainfluenza 4 (PCR) Not detected (Not Detect) RSV (PCR) Not detected (Not Detect) Entero/Rhino (PCR) Not detected (Not Detect) Imaging Data Chest x-ray: Radiologist's Impression: P the ROCEDURE:? XR CHEST 1V ? INDICATIONS:? resp distress/intubation ? TECHNIQUE:? One view of the chest was acquired.? ? COMPARISON:? [facility], , XR CHEST 1V, 02/02/2023, 22:14. ? FINDINGS:? ? Surgical changes and devices:? Endotracheal tube demonstrated with the tip 3.2 cm from the jessy. ? Lungs and pleura:? There are persistent confluent left retrocardiac opacities consistent with consolidation or atelectasis.? Small bilateral pleural effusions are present with associated compressive atelectasis.? No left pneumothorax.? No definite right pneumothorax, with right apex incompletely included on the current study. ? Mediastinum:? Mediastinal contours appear unchanged.? Heart size is normal.? ? Bones and chest wall:? No suspicious bony lesions.? Overlying soft tissues appear unremarkable.? ? IMPRESSION:? ? 1. Small bilateral pleural effusions with left retrocardiac consolidation or atelectasis. ? ? Dictated by: Damien Shanks M.D. on 03/23/2023 at 21:14 ? ? CX 2: Radiologist's Impression: PROCEDURE:? XR CHEST 1V ? INDICATIONS:? central line placement ? TECHNIQUE:? One view of the chest was acquired.? ? COMPARISON:? [facility], , XR CHEST 1V, 03/23/2023, 20:01. ? FINDINGS:? ? Surgical changes and devices:? There is a right internal jugular catheter with the tip in the region of the cavoatrial junction.? Endotracheal tube appears unchanged in position. ? Lungs and pleura:? No definite evidence of pneumothorax.? Unclear if the study was performed supine or upright.? There are persistent small bilateral pleural effusions with bibasilar opacities consistent with compressive atelectasis or consolidation, left greater than right. ? Mediastinum:? Mediastinal contours appear normal.? Heart size is normal.? ? Bones and chest wall:? No suspicious bony lesions.? Overlying soft tissues appear unremarkable.? ? IMPRESSION:? ? 1. No definite evidence of pneumothorax. ? 2. Persistent small bilateral pleural effusions with associated compressive atelectasis or consolidation, left greater than right. ? ? Dictated by: Damien Shanks M.D. on 03/23/2023 at 22:18 ? ? Approved by: Damien Shanks M.D. on 03/23/2023 at 22:25 CT scan - chest: Radiologist's Impression: PROCEDURE:? CT ANGIO CHEST PE PROTOCOL ? INDICATIONS:? hypoxic intubated ? TECHNIQUE:? After the administration of intravenous contrast, 2 mm thick sections acquired from the pulmonary apices to the posterior costophrenic angles.? 3-dimensional maximum intensity projection (MIP) coronal and sagittal reformats were then acquired through the thorax.? For radiation dose reduction, the following was used:? automated exposure control, adjustment of mA and/or kV according to patient size.? ? COMPARISON:? [facility], CT, CT ANGIO CHEST PE PROTOCOL, 02/03/2023, 0:23. ? FINDINGS:? Image quality:? Excellent.? ? Pulmonary arteries:? Pulmonary arteries demonstrate suspected nonocclusive filling defects within subsegmental pulmonary arteries in the left lower lobe as seen on series 7, image 82. ? Lower Neck: No lymphadenopathy by size criteria. Thyroid:? The thyroid is heterogeneous in appearance with indistinct nodules demonstrated bilaterally. Axillae: No lymphadenopathy by size criteria. Chest Wall:? Unremarkable.? Bones: Visualized osseous structures demonstrate no suspicious lesions. ? Lungs and Airways:? An endotracheal tube is present.? A small amount of dependent mucus is demonstrated within the distal trachea extending into the mainstem bronchi and lower lobe bronchi.? Compressive atelectasis is demonstrated in the lower lobes bilaterally as well as posterior consolidation in the left lower lobe with air bronchograms suggestive of pneumonia. Pleura: No pneumothorax.? There are bilateral pleural effusions, moderate on the right with areas of loculation and small on the left.? ? Heart: Heart size is normal.? There is a large pericardial effusion measuring up to approximately 3.6 cm inferiorly. Thoracic Vessels: The thoracic aorta is normal in size.? Mediastinum and Aniya:? There are nonspecific prominent mediastinal lymph nodes. Esophagus: No wall thickening. No hiatal hernia. ? Abdomen:? There is minimal partial visualization of the upper abdomen. ? IMPRESSION:? ? 1. Indistinct filling defects suggestive of nonocclusive pulmonary embolism in subsegmental left lower lobe pulmonary arteries. ? 2. Large pericardial effusion. ? 3. Bilateral pleural effusions, moderate on the right with loculations and small on the left. ? 4. Left lower lobe consolidation with air bronchograms compatible with pneumonia. ? 5. Dependent mucus in the trachea and lower lobe bronchi suggestive of aspiration. ? Findings discussed with Dr. Connolly on 03/24/2023 at 12:10 a.m..? ? ? Dictated by: Damien Shanks M.D. on 03/24/2023 at 0:06 ? ? ECG Data Interpretation: EKG 1. Low voltage sinus rhythm rate 111 DC interval 120 QRS [address] changes no T-wave inversions no electrical alternans EKG 2. Sinus rhythm rate 86 low voltage no electric or Ultram MDM Narrative Medical decision making narrative: Patient 42-year-old male multiple medical problems from in in acute respiratory distress. He was quickly intubated with the use of BiPAP and then to an ET tube without any complications. His oxygen requirements actually decreased quite significantly 1 2 was intubated. Due to probably intubation medication and sedation meds he required Levophed central line was placed. Labs show mild leukocytosis of 13.5, mild hyponatremia sodium 123 potassium 4.5 chloride 89 creatinine 0.26 lactate 2.0 procalcitonin 0.11 and a BNP of 11 40 with a negative troponin Due to significant hypoxia respiratory distress CT angio was ordered. He is found to have small possible left lower lobe subsegmental pulmonary embolism bilateral pleural effusions right greater than left with loculations on the right side along with a large pericardial effusion measuring 3.6 cm. There is no evidence of electrical alternans or tamponade. Pericardial effusion is new from previous CT on February 02. Previously there was trace amount of pericardial effusion that time. Dr. Beth on-call cardiology updated patient's symptoms test results concern about pericardial effusion. At this time she does recommend transferring for a pericardiocentesis and possible window. She recommends starting heparin drip without heparin bolus for the pulmonary embolism. Pericardial effusion may convert into a hemorrhagic but at this time with pulmonary embolism recommends the heparin. Patient is given cefepime and vanc for pneumonia. He has recurrent left lower lobe pneumonia thought to be secondary to aspiration. He has mild leukocytosis but is overall afebrile without elevated lactate barium he is given IV fluids However BNP is elevated at 11 50 but with bilateral pleural effusion his actually given 20 mg of Lasix he only urinated 175 out. Once fluids then started he actually started urinating more. Radhika Barrera, commercial food instructor is actually quite familiar with the patient. He updated me on his history I updated him on his current state and issues. At this time he is happy to accept patient. He requests that heparin drip actually be. Pulmonary embolism is quite small and may need intervention when he arrives. Critical Care Time Critical Care Time Critical Care Time: Yes Total Critical Care Time: 75 Attestation: The high probability of a clinically significant, sudden or life threatening deterioration of the [cardiovascular] system(s) required my full and direct attention, intervention and personal management. The aggregate critical care time was 75 minutes. This time is in addition to time spent performing reported procedures but includes the following: [x] Data Review and interpretation [x] Patient assessment and monitoring of vital signs [x] Documentation [x] Medication orders and management Discharge Plan [facility]: Acute pericardial effusion, Pulmonary embolism, Pleural effusion, Pneumonia Prescriptions: No Action Calmoseptine 0.44-20.6 % ointment 1 applic TOP QID PRN (Reason: skin irritation) Qty: 113 0RF (DME) XL mattress for semi-electric hospital bed See Rx Instructions .Route .MEDSUPPLY Qty: 1 0RF Rx Instructions: use daily as directed (DME) Disabled Parking Qty: 1 0RF Rx Instructions: I find this patient to be medically disabled and qualified for Disabled Parking as indicated, and signed, on the Accompanying Disabled Parking Application for Individuals ferrous sulfate 325 mg (65 mg iron) tablet 130 mg PO DAILY Hold Instructions: on J tube sertraline 20 mg/mL concentrate 150 mg PO DAILY 30 Days Qty: 225 3RF Rx Instructions: Give 7.5mL via J-tube baclofen 5 mg/5 mL solution 5 mg PO DAILY Qty: 473 3RF Rx Instructions: Give 5mL via J-tube (DME) Mattress See Rx Instructions .Route .MEDSUPPLY Qty: 1 0RF Rx Instructions: Long mattress for hospital bed (DME) Battery Powered Lift Qty: 1 0RF Dose Instruction: As directed Rx Instructions: Use daily as directed for transfers to and from bed (DME) Power Chair tall Qty: 1 0RF Dose Instruction: As directed Rx Instructions: As directed for patient care with activities of daily living. Chair needs to tilt foreword and tilt backwards for patient care. Pt is 6 feet tall and will need to fit height. (DME) Semi-electric hospital bed Qty: 1 0RF Dose Instruction: As directed Rx Instructions: Semi-electric hospital bed to permit transfers to wheelchair and to attach traction equipment. Must be large enough and long enough to accommodate his height and weight. EDEN: 99 months (DME) Shower Chair Qty: 1 0RF Rx Instructions: As directed for patient care with activities of daily living. Chair needs to tilt foreword and tilt backwards for patient care. Pt is 6 feet tall and will need to fit height. Botox 100 unit recon soln 200 unit IM ONCE Patient Comments: Mother of patient believes he is due for next injection Rx Instructions: Goes every 3 Months for injection Referrals: Chucky Marshall MD [Primary Care Provider] -
[2023-03-23] MEDS: propofoL 1,000 MG/100 ML VIAL 2.228 MG IV (20:33)
[2023-03-23] MEDS: SUCCINYLCHOLINE 200 MG/10 ML VIAL 100 MG IV (20:34)
[2023-03-23] MEDS: ETOMIDATE 2 MG/ML 10 ML VIAL 30 MG IV (20:34)
[2023-03-23] MEDS: fentaNYL 1,000 MCG in DEXTROSE 5% IN WATER 230 ML 12.994 MCG IV (20:36)
[2023-03-23 20:40] LABS: INR 1.2 (0.9-1.3); Prothrombin Time 13.5 SECONDS (10.1-12.7)
[2023-03-23 20:42] LABS: Alanine Aminotransferase 16 IU/L (<50); Albumin 3.7 g/dL (3.5-5.0); Albumin Globulin Ratio 0.9 (1.0-2.8); Alkaline Phosphatase 137 U/L (38-126); Aspartate Aminotransferase 26 IU/L (17-59); BUN Creatinine Ratio 65.4 (6-22); Bilirubin Total 0.4 mg/dL (0.2-1.3); Blood Urea Nitrogen 17 mg/dL (9-20); Calcium 8.7 mg/dL (8.4-10.2); Carbon Dioxide 25 mmol/L (22-32); Chloride 89 mmol/L (98-107); Creatine Kinase 41 U/L (55-170); Estimated Glomerular Filt Rate > 60 mL/min (>60); Globulin 4.1 g/dL (1.7-4.1); Glucose 115 mg/dL (70-100); HEMOLYSIS < 15 (0-50); Potassium 4.5 mmol/L (3.4-5.1); Sodium 123 mmol/L (137-145); Total Protein 7.8 g/dL (6.3-8.2)
[2023-03-23 20:42] LABS: PTT Partial Thromboplastin Tim 44 SECONDS (26-36)
[2023-03-23] MEDS: NOREPINEPHRINE BITARTRATE/D5W 4 MG/250 ML PLAST..BAG 27.845 MG IV (20:44)
[2023-03-23 20:48] LABS: Add Manual Diff / Slide Review NO; Basophils Absolute Auto 200 /uL (0-100); Basophils Percent Auto 1.1 % (0-2); Eosinophils Absolute Auto 300 /uL (0-450); Eosinophils Percent Auto 2.3 % (2-4); Hematocrit 35.3 % (41-53); Hemoglobin 11.8 g/dL (13.5-17.5); Lymphocytes Absolute Auto 2000 /uL (1100-4500); Lymphocytes Percent Auto 14.6 % (25-40); Mean Corpuscular HGB Conc 33.4 % (30-36); Mean Corpuscular Hemoglobin 25.8 PG (26-34); Mean Corpuscular Volume 77.1 fL (80-100); Monocytes Absolute Auto 1100 /uL (0-900); Monocytes Percent Auto 8.4 % (3-14); Neutrophils Absolute Auto 10000 /uL (1500-7000); Neutrophils Percent Auto 73.6 % (50-75); Platelet Count 833 X10^3/uL (150-400); Red Blood Cell Count 4.58 X10^6/uL (4.5-5.9); Red Cell Distribution Width 17.6 % (11.6-14.8); White Blood Cell Count 13.5 X10^3/uL (4.5-11.0)
[2023-03-23 20:55] LABS: NT-proBNP (BNP-Adult 18+) 1140 pg/mL (<125); Troponin I < 0.012 ng/mL (0.01-0.034)
[2023-03-23 20:59] LABS: Procalcitonin 0.11 ng/mL (<0.5)
[2023-03-23 21:01] LABS: Lipase 82 U/L (23-300)
[2023-03-23 21:05] LABS: Appearance Urine UA CLEAR; Bilirubin Urine UA NEGATIVE (NEGATIVE); Color Urine UA YELLOW; Glucose Urine UA NEGATIVE (Negative); Ketones Urine UA 1+ (NEGATIVE); Leukocyte Esterase Urine UA NEGATIVE (NEGATIVE); Nitrite Urine UA NEGATIVE (Negative); Occult Blood Urine UA TRACE-INTACT (Negative); Protein Urine UA 1+ (Negative)
--- NOTE | 2023-03-23 21:14 | DI.RAD.S_ITS ---
PROCEDURE: XR CHEST 1V INDICATIONS: central line placement TECHNIQUE: One view of the chest was acquired. COMPARISON: [facility], CR, XR CHEST 1V, 03/23/2023, 20:01. FINDINGS: Surgical changes and devices: There is a right internal jugular catheter with the tip in the region of the cavoatrial junction. Endotracheal tube appears unchanged in position. Lungs and pleura: No definite evidence of pneumothorax. Unclear if the study was performed supine or upright. There are persistent small bilateral pleural effusions with bibasilar opacities consistent with compressive atelectasis or consolidation, left greater than right. Mediastinum: Mediastinal contours appear normal. Heart size is normal. Bones and chest wall: No suspicious bony lesions. Overlying soft tissues appear unremarkable. IMPRESSION: 1. No definite evidence of pneumothorax. 2. Persistent small bilateral pleural effusions with associated compressive atelectasis or consolidation, left greater than right. Dictated by: Damien Shanks M.D. on 03/23/2023 at 22:18 Approved by: Damien Shanks M.D. on 03/23/2023 at 22:25
[2023-03-23 21:19] LABS: Procalcitonin 0.11 ng/mL (<0.5)
[2023-03-23] MEDS: SODIUM CHLORIDE 0.9% 1,000 ML 200 ML IV (21:21)
[2023-03-23 21:23] LABS: Anisocytosis 2+; Microcytosis 2+
[2023-03-23 21:24] LABS: Hypochromasia 1+
[2023-03-23] MEDS: CEFEPIME 2 GM in SODIUM CHLORIDE 0.9% 100 ML IV (21:33)
[2023-03-23 21:38] LABS: Amorphous Sediment Urine 1+; Bacteria Urine None Seen; RBC Urine 1-5/HPF (0-5/HPF); Red Blood Cell Casts Urine 0-1/LPF; Squamous Epithelial Cell Urine None Seen (0-5/HPF); WBC Urine None Seen (0-5/HPF)
[2023-03-23 21:39] LABS: Culture Indicated Urine Cult Not Indicated
[2023-03-23] MEDS: fentaNYL 100 MCG/2 ML INJ 50 MCG IV (21:40)
--- NOTE | 2023-03-23 21:46 | PC.NURSE ---
Mutliple attempts at NGT / OGT but unable and noted trauma. J tube placed to intermitant low wall suction with significant amount of feed removed. Abd is soft. + bowel sounds. Dr. Connolly aware and agrees with plan to utilize j tube until able to place NGT/OGT.
--- NOTE | 2023-03-23 21:49 | PC.NURSE ---
Summary note: Pt arrived via EMS to room 1 where report was received and pt was transferred to [facility]. CPAP was changed to BIPAP. Called mother who confirmed that pt was a full code.
--- NOTE | 2023-03-23 22:01 | DI.CT.S_ITS ---
PROCEDURE: CT ANGIO CHEST PE PROTOCOL INDICATIONS: hypoxic intubated TECHNIQUE: After the administration of intravenous contrast, 2 mm thick sections acquired from the pulmonary apices to the posterior costophrenic angles. 3-dimensional maximum intensity projection (MIP) coronal and sagittal reformats were then acquired through the thorax. For radiation dose reduction, the following was used: automated exposure control, adjustment of mA and/or kV according to patient size. COMPARISON: [facility], CT, CT ANGIO CHEST PE PROTOCOL, 02/03/2023, 0:23. FINDINGS: Image quality: Excellent. Pulmonary arteries: Pulmonary arteries demonstrate suspected nonocclusive filling defects within subsegmental pulmonary arteries in the left lower lobe as seen on series 7, image 82. Lower Neck: No lymphadenopathy by size criteria. Thyroid: The thyroid is heterogeneous in appearance with indistinct nodules demonstrated bilaterally. Axillae: No lymphadenopathy by size criteria. Chest Wall: Unremarkable. Bones: Visualized osseous structures demonstrate no suspicious lesions. Lungs and Airways: An endotracheal tube is present. A small amount of dependent mucus is demonstrated within the distal trachea extending into the mainstem bronchi and lower lobe bronchi. Compressive atelectasis is demonstrated in the lower lobes bilaterally as well as posterior consolidation in the left lower lobe with air bronchograms suggestive of pneumonia. Pleura: No pneumothorax. There are bilateral pleural effusions, moderate on the right with areas of loculation and small on the left. Heart: Heart size is normal. There is a large pericardial effusion measuring up to approximately 3.6 cm inferiorly. Thoracic Vessels: The thoracic aorta is normal in size. Mediastinum and Aniya: There are nonspecific prominent mediastinal lymph nodes. Esophagus: No wall thickening. No hiatal hernia. Abdomen: There is minimal partial visualization of the upper abdomen. IMPRESSION: 1. Indistinct filling defects suggestive of nonocclusive pulmonary embolism in subsegmental left lower lobe pulmonary arteries. 2. Large pericardial effusion. 3. Bilateral pleural effusions, moderate on the right with loculations and small on the left. 4. Left lower lobe consolidation with air bronchograms compatible with pneumonia. 5. Dependent mucus in the trachea and lower lobe bronchi suggestive of aspiration. Findings discussed with Dr. Connolly on 03/24/2023 at 12:10 a.m.. Dictated by: Damien Shanks M.D. on 03/24/2023 at 0:06 Approved by: Damien Shanks M.D. on 03/24/2023 at 0:14
[2023-03-23 22:03] LABS: Fractionated Inspired Oxygen 60; HCO3 ABG 25 mmol/L (23-27); Oxygen Saturation ABG 100 % (95-100); PCO2 ABG 41.6 mmHg (35-45); PO2 ABG 179 mmHg (80-100); TCO2 ABG 26 mmol/L (23-27); pH ABG 7.38 (7.35-7.45)
[2023-03-23 22:05] LABS: Adenovirus Not Detected (Not Detect); B. parapertussis Not Detected (Not Detecte); Bordetella pertussis Not Detected (Not Detecte); Chlamydophila pneumoniae Not Detected (Not Detect); Coronavirus 229E Not Detected (Not Detect); Coronavirus HKU1 Not Detected (Not Detect); Coronavirus NL 63 Not Detected (Not Detect); Coronavirus OC43 Not Detected (Not Detect); Human Metapneumovirus Not Detected (Not Detect); Human Rhinovirus/Enterovirus Not Detected (Not Detect); Influenza A Not Detected (Not Detect); Influenza B Not Detected (Not Detect); Mycoplasma pneumoniae Not Detected (Not Detect); Parainfluenza Virus 1 Not Detected (Not Detect); Parainfluenza Virus 2 Not Detected (Not Detect); Parainfluenza Virus 3 Not Detected (Not Detect); Parainfluenza Virus 4 Not Detected (Not Detect); Respiratory Syncytial Virus Not Detected (Not Detect); SARS- CoV-2 Not Detected (Not Detecte)
[2023-03-23] MEDS: FUROSEMIDE 40 MG/4 ML VIAL 20 MG IV (22:54)
[2023-03-23] MEDS: VANCOMYCIN 1,500 MG/300 ML PIGGYBACK 150 MG IV (22:57)
[2023-03-24] VITALS (36 sets, daily range): BP systolic 77–110; BP diastolic 46–84; PULSE 79–90; RESP 15; TEMP 36.1–36.6; O2SAT 91–100
[2023-03-24] MEDS: SODIUM CHLORIDE 0.9% 1,000 ML 200 ML IV (00:40)
[2023-03-24] MEDS: HEPARIN DRIP 25,000 UNIT/500 ML IV.SOLN 24 UNIT IV (00:59)
[2023-03-24 01:05] LABS: PTT Partial Thromboplastin Tim 40 SECONDS (26-36)
[2023-03-24] MEDS: NOREPINEPHRINE BITARTRATE/D5W 4 MG/250 ML PLAST..BAG 55.69 MG IV (01:50)
[2023-03-24] MEDS: SODIUM CHLORIDE 0.9% 1,000 ML 1000 ML IV (03:25)
--- NOTE | 2023-03-24 04:32 | PC.NURSE ---
propofol was infusing at 15/mcg/kg/min,norepi infusing at 9mcg/min and fentanyl at 1 mcg/kg/min and NS at 250 ml per hr with transport crew.
--- NOTE | 2023-03-24 04:41 | PC.NURSE ---
he had 400 ml output from j tube suctioning
== END 2023-03-24 04:30 | disposition short-term general hospital (02) ==
PROVIDERS: Emergency Provider Emergency Medicine; PCP Internal Medicine
DX: I30.9 Acute pericarditis, unspecified (principal); I26.99 Other pulmonary embolism without acute cor pulmonale; J90 Pleural effusion, not elsewhere classified; J18.9 Pneumonia, unspecified organism; Z20.822 Contact with and (suspected) exposure to COVID-19
CPT/HCPCS: 31500; 36415; 36569; 36600; 71045; 71275; 80053; 81001; 82550; 82805; 83605; 83690; 83880; 84145; 84484; 85025; 85610; 85730; 87040; 87633; 93005; 93010; 94002; 94003; 94799; 96365; 96366; 96367; 96368; 96375; 99285; 99291; 99292; J0330; J0692; J1644; J1940; J2704; J3010; Q9967

== ENCOUNTER 2023-05-18 09:34 | Emergency (ER) | payer MEDICAID, SELFPAY ==
[2023-04-04 11:09] VITALS: PULSE 89; RESP 16; O2SAT 100; BMI 23.0
[2023-05-18] VITALS (107 sets, daily range): BP systolic 98–146; BP diastolic 57–96; PULSE 104–133; RESP 18–38; TEMP 36.6–37.9; O2SAT 88–100; BMI 22.4
--- NOTE | 2023-05-18 09:42 | DI.RAD.S_ITS ---
PROCEDURE: XR CHEST 1V INDICATIONS: Eval for pneumonia TECHNIQUE: One view of the chest was acquired. COMPARISON: [facility], CT, CT ANGIO CHEST PE PROTOCOL, 03/23/2023, 22:18. [facility], CR, XR CHEST 1V, 03/23/2023, 21:03. FINDINGS: Surgical changes and devices: None. Lungs and pleura: Chest x-ray findings are similar. Continued left basilar atelectasis and consolidation and pleural fluid. Continued right basilar pleural effusion. Mediastinum: Mediastinal contours appear normal. Heart size is normal. Bones and chest wall: No suspicious bony lesions. Overlying soft tissues appear unremarkable. IMPRESSION: No significant change. Left basilar pneumonia and atelectasis and pleural fluid, right basilar pleural fluid. Dictated by: Simón Boyer M.D. on 05/18/2023 at 10:22 Approved by: Simón Boyer M.D. on 05/18/2023 at 10:24
--- NOTE | 2023-05-18 09:46 | ED.GENADULT ---
HPI - General Adult General Chief complaint: Shortness of Breath/Dyspnea Stated complaint: Sob, weak, pneumonia Time Seen by Provider: 05/18/23 09:37 Source: patient and family Mode of arrival: Wheelchair Limitations: no limitations History of Present Illness HPI narrative: Patient is a 43-year-old male. Has several chronic medical problems to include cerebral palsy, hemiparesis of the left side, developmental delay, pseudobulbar palsy and is wheelchair bound. I have seen him several times here in the emergency department. Most of the times have been secondary to respiratory issues and pneumonia. He was admitted to the hospital here several weeks ago for a pericardial effusion and pneumonia. It was also found to have pulmonary embolism. He was started on Eliquis. Over the past couple days he has had progressively worsening shortness of breath and increased sputum production and generally not feeling very well. They were on their way today to a doctor's appointment today in order to have an echocardiogram to evaluate his pericardial effusion however given his respiratory symptoms they came to the emergency department here. Patient is at his baseline mental status per mom who is at bedside. Related Data Home Medications Medication Instructions Recorded Confirmed onabotulinumtoxinA 100 unit 200 unit IM ONCE 07/20/21 04/27/23 solution for injection (Botox) ferrous sulfate 325 mg (65 mg 130 mg PO DAILY 10/29/21 04/27/23 iron) tablet Previous Rx's Medication Instructions Recorded Battery Powered Lift #1 ea 03/02/18 Power Chair #1 ea 10/16/18 Semi-electric hospital bed #1 ea 11/17/18 Disabled Parking #1 ea 01/15/19 Shower Chair #1 ea 07/04/19 XL mattress for semi-electric #1 ea 09/27/22 hospital bed menthol 0.44 %-zinc oxide 20.6 % 1 applic topical QID PRN skin 09/27/22 topical ointment (Calmoseptine) irritation #113 grams Mattress #1 ea 01/20/23 baclofen 5 mg/5 mL oral solution 5 mg (5 mL) PO DAILY #473 mL 01/20/23 sertraline 20 mg/mL oral 150 mg (7.5 mL) PO DAILY 30 days 01/20/23 concentrate #225 mL apixaban 5 mg tablet (Eliquis) 5 mg PO BID #60 tabs 04/06/23 suction catheter #1 ea 04/06/23 Allergies Allergy/AdvReac Type Severity Reaction Status Date / Time Penicillins [PENICILLINS] Allergy Severe RASH Verified 04/27/23 12:33 levofloxacin Allergy Intermediate Rash Verified 04/27/23 12:33 Review of Systems Constitutional Constitutional: Reports fever(s) Cardiovascular Comments: He denies chest pain Respiratory Respiratory: Reports system reviewed and no additional complaints, except as documented Gastrointestinal Comments: No vomiting Musculoskeletal Musculoskeletal: Reports system reviewed and no additional complaints, except as documented Hematologic/Lymphatic On Anticoagulants: Yes Patient History Medical History Anemia Cerebral palsy Depression Depression, major, recurrent Difficulty with speech Dysarthria Dysphagia Former smoker Gingivitis Hemiparesis (~1984) Hyponatremia Influenza A Jejunostomy tube present Pneumonia Protein calorie malnutrition Pseudobulbar palsy Recurrent aspiration pneumonia Sacral decubitus ulcer, stage III 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 Father No problems noted. Social History marital status: unmarried,single details: Lives independantly with caregivers household members: family Smoking Status: Former smoker alcohol intake: never substance use type: marijuana Smoking Status: Former smoker alcohol intake frequency: 0-2 drinks per day Substance Use Type: marijuana Exam Initial Vital Signs Initial Vital Signs: Vital Signs Pulse Rate 130 H 05/18/23 09:43 Pulse Oximetry 93 05/18/23 09:43 Const General: cooperative HENMT Head: normal to inspection and normocephalic Resp Other: Patient is tachypneic. Has quite a bit of sputum production. Has rhonchi bilaterally with no wheezing. Oxygen saturations 90% on room air Cardio Rate: tachycardic Neuro Other: Baseline neuro status per mom who is at bedside. He is able to say some words and shake his head yes and no to questions Extrem Other: No gross deformities Course Orders Ordered: ED Orders 05/18/23 09:42 XR chest 1V Stat EKG-12 Lead Stat 05/18/23 09:52 Respiratory Panel (Film Array) Stat 05/18/23 10:05 EC echo limited Stat 05/18/23 10:16 Blood Culture Stat Complete Blood Count AUTO DIFF Stat Comprehensive Metabolic Panel Stat Lactate (Lactic Acid) Stat Lipase Stat NT-proBNP (BNP-Adult 18+) Stat PTT Partial Thromboplastin Cole Stat Procalcitonin Stat Prothrombin Time INR Stat 05/18/23 11:45 ABG [Arterial Blood Gas] Stat Sodium Chloride (Normal Saline 0.9%) 1,000 mls @ 125 mls/hr IV CONT JOSE MANUEL Last Admin: 05/18/23 10:18 Dose: 125 mls/hr Documented By: JENNYFER Discontinued Medications Azithromycin 500 mg/ Dextrose 250 mls @ 250 mls/hr IV NOW ONE Stop: 05/18/23 10:04 Last Infusion: 05/18/23 11:38 Dose: 0 mls/hr Documented By: Admin: 05/18/23 10:32 Dose: 250 mls/hr Documented By: JENNYFER Ceftriaxone Sodium 1,000 mg/ (Sodium Chloride) 100 mls @ 200 mls/hr IV NOW ONE Stop: 05/18/23 10:04 Last Infusion: 05/18/23 11:03 Dose: 0 mls/hr Documented By: Admin: 05/18/23 10:29 Dose: 200 mls/hr Documented By: JENNYFER Vancomycin HCl (Vancomycin) 1,000 mg in 200 mls @ 200 mls/hr IV NOW ONE Stop: 05/18/23 12:44 Last Infusion: 05/18/23 14:45 Dose: 0 mls/hr Documented By: Admin: 05/18/23 13:38 Dose: 200 mls/hr Documented By: JACKY Cefepime HCl 2 gm/ Sodium (Chloride) 100 mls @ 200 mls/hr IV NOW ONE Stop: 05/18/23 11:46 Last Infusion: 05/18/23 13:37 Dose: 0 mls/hr Documented By: Admin: 05/18/23 12:58 Dose: 200 mls/hr Documented By: JACKY Acetaminophen (Ofirmev) 1,000 mg in 100 mls @ 400 mls/hr IV NOW ONE Stop: 05/18/23 17:41 Last Admin: 05/18/23 17:48 Dose: 400 mls/hr Documented By: [facility] Vital Signs Vital signs: Vital Signs - 8 hr 05/18/23 10:34 05/18/23 10:05 05/18/23 10:08 Temperature Pulse Rate 121 H 131 H 126 H Respiratory Rate 36 H 36 H 31 H Blood Pressure Pulse Oximetry 94 90 L 92 Oxygen Delivery Method High Flow Nasal Cannula Nasal Cannula Oxygen Flow Rate 50 2 05/18/23 10:08 05/18/23 10:10 05/18/23 10:10 Temperature Pulse Rate 127 H Respiratory Rate 31 H Blood Pressure 105/68 98/69 Pulse Oximetry 94 Oxygen Delivery Method Oxygen Flow Rate 05/18/23 10:15 05/18/23 10:15 05/18/23 10:20 Temperature Pulse Rate 121 H Respiratory Rate 31 H Blood Pressure 111/63 125/71 Pulse Oximetry 97 Oxygen Delivery Method Oxygen Flow Rate 05/18/23 10:20 05/18/23 10:25 05/18/23 10:25 Temperature Pulse Rate 123 H 123 H Respiratory Rate 31 H 34 H Blood Pressure 123/76 Pulse Oximetry 92 88 L Oxygen Delivery Method Oxygen Flow Rate 05/18/23 10:30 05/18/23 10:30 05/18/23 10:35 Temperature Pulse Rate 123 H Respiratory Rate 35 H Blood Pressure 126/74 140/87 Pulse Oximetry 88 L Oxygen Delivery Method Nasal Cannula Oxygen Flow Rate 2 05/18/23 10:35 05/18/23 10:22 05/18/23 10:34 Temperature Pulse Rate 126 H 124 H 126 H Respiratory Rate 38 H 26 H 28 H Blood Pressure 140/87 Pulse Oximetry 92 92 93 Oxygen Delivery Method High Flow Nasal Cannula Nasal Cannula Oxygen Flow Rate 50 6 05/18/23 10:40 05/18/23 10:40 05/18/23 10:45 Temperature Pulse Rate 123 H Respiratory Rate 36 H Blood Pressure 143/83 H 137/78 Pulse Oximetry 95 Oxygen Delivery Method Oxygen Flow Rate 05/18/23 10:45 05/18/23 10:50 05/18/23 10:50 Temperature Pulse Rate 123 H 124 H Respiratory Rate 34 H 33 H Blood Pressure 144/81 H Pulse Oximetry 97 98 Oxygen Delivery Method Oxygen Flow Rate 05/18/23 10:55 05/18/23 10:55 08/30/23 11:00 Temperature Pulse Rate 124 H Respiratory Rate 32 H Blood Pressure 136/77 146/96 H Pulse Oximetry 99 Oxygen Delivery Method Oxygen Flow Rate 05/18/23 11:00 05/18/23 11:05 05/18/23 11:05 Temperature Pulse Rate 123 H 123 H Respiratory Rate 33 H 31 H Blood Pressure 143/89 H Pulse Oximetry 98 98 Oxygen Delivery Method Oxygen Flow Rate 05/18/23 11:10 05/18/23 11:10 05/18/23 11:15 Temperature Pulse Rate 122 H Respiratory Rate 30 H Blood Pressure 134/80 139/88 Pulse Oximetry 100 Oxygen Delivery Method Oxygen Flow Rate 05/18/23 11:15 05/18/23 11:20 05/18/23 11:20 Temperature Pulse Rate 121 H 122 H Respiratory Rate 29 H 28 H Blood Pressure 114/67 Pulse Oximetry 100 100 Oxygen Delivery Method Heated High Flow High Flow Nasal Cannula Oxygen Flow Rate 50 05/18/23 11:25 05/18/23 11:25 05/18/23 11:30 Temperature Pulse Rate 121 H Respiratory Rate 27 H Blood Pressure 138/83 119/72 Pulse Oximetry 100 Oxygen Delivery Method High Flow Nasal Cannula Oxygen Flow Rate 05/18/23 11:30 05/18/23 11:35 05/18/23 11:35 Temperature Pulse Rate 115 H 115 H Respiratory Rate 25 H 26 H Blood Pressure 128/78 Pulse Oximetry 100 100 Oxygen Delivery Method High Flow Nasal Cannula High Flow Nasal Cannula Oxygen Flow Rate 05/18/23 11:40 05/18/23 11:40 05/18/23 12:12 Temperature 97.9 F Pulse Rate 112 H 112 H Respiratory Rate 24 24 Blood Pressure 119/68 119/68 Pulse Oximetry 100 100 Oxygen Delivery Method High Flow Nasal Cannula Oxygen Flow Rate 05/18/23 11:45 05/18/23 11:45 05/18/23 11:50 Temperature 99.0 F Pulse Rate 109 H Respiratory Rate 23 Blood Pressure 114/64 117/67 Pulse Oximetry 100 Oxygen Delivery Method High Flow Nasal Cannula Oxygen Flow Rate 05/18/23 11:50 05/18/23 11:55 05/18/23 11:55 Temperature 99.5 F 99.7 F H Pulse Rate 115 H 109 H Respiratory Rate 19 23 Blood Pressure 115/64 Pulse Oximetry 100 100 Oxygen Delivery Method Oxygen Flow Rate 05/18/23 12:00 05/18/23 12:00 05/18/23 12:05 Temperature 99.7 F H Pulse Rate 107 H Respiratory Rate 22 Blood Pressure 116/65 117/65 Pulse Oximetry 100 Oxygen Delivery Method Oxygen Flow Rate 05/18/23 12:05 05/18/23 12:10 05/18/23 12:10 Temperature 99.7 F H 99.7 F H Pulse Rate 107 H 107 H Respiratory Rate 22 22 Blood Pressure 117/66 Pulse Oximetry 100 100 Oxygen Delivery Method Oxygen Flow Rate 05/18/23 12:15 05/18/23 12:15 05/18/23 12:20 Temperature 99.7 F H Pulse Rate 106 H Respiratory Rate 22 Blood Pressure 115/66 128/85 Pulse Oximetry 100 Oxygen Delivery Method Oxygen Flow Rate 05/18/23 12:20 05/18/23 12:25 05/18/23 12:25 Temperature 99.5 F 99.5 F Pulse Rate 109 H 109 H Respiratory Rate 18 19 Blood Pressure 134/83 Pulse Oximetry 99 98 Oxygen Delivery Method Oxygen Flow Rate 05/18/23 12:30 05/18/23 12:30 05/18/23 12:35 Temperature 99.5 F Pulse Rate 109 H Respiratory Rate 20 Blood Pressure 133/83 134/81 Pulse Oximetry 97 Oxygen Delivery Method Heated High Flow Oxygen Flow Rate 05/18/23 12:35 05/18/23 12:40 05/18/23 12:40 Temperature 99.3 F 99.3 F Pulse Rate 109 H 111 H Respiratory Rate 22 22 Blood Pressure 139/87 Pulse Oximetry 96 96 Oxygen Delivery Method Oxygen Flow Rate 05/18/23 12:45 05/18/23 12:45 05/18/23 12:50 Temperature 99.3 F Pulse Rate 108 H Respiratory Rate 24 Blood Pressure 129/77 126/75 Pulse Oximetry 97 Oxygen Delivery Method Oxygen Flow Rate 05/18/23 12:50 05/18/23 12:55 05/18/23 12:55 Temperature 99.3 F 99.3 F Pulse Rate 109 H 110 H Respiratory Rate 24 25 H Blood Pressure 131/83 Pulse Oximetry 97 97 Oxygen Delivery Method Oxygen Flow Rate 05/18/23 13:00 05/18/23 13:00 05/18/23 13:05 Temperature 99.3 F Pulse Rate 109 H Respiratory Rate 25 H Blood Pressure 128/79 127/76 Pulse Oximetry 96 Oxygen Delivery Method Oxygen Flow Rate 05/18/23 13:05 05/18/23 13:10 05/18/23 13:10 Temperature 98.8 F 99.3 F Pulse Rate 109 H 109 H Respiratory Rate 25 H 26 H Blood Pressure 128/79 Pulse Oximetry 96 96 Oxygen Delivery Method Oxygen Flow Rate 05/18/23 13:15 05/18/23 13:15 05/18/23 13:20 Temperature 99.3 F Pulse Rate 110 H Respiratory Rate 27 H Blood Pressure 123/75 124/74 Pulse Oximetry 95 Oxygen Delivery Method Oxygen Flow Rate 05/18/23 13:20 05/18/23 13:25 05/18/23 13:25 Temperature 99.3 F 99.3 F Pulse Rate 110 H 109 H Respiratory Rate 26 H 27 H Blood Pressure 125/76 Pulse Oximetry 95 95 Oxygen Delivery Method Oxygen Flow Rate 05/18/23 13:30 05/18/23 13:30 05/18/23 13:35 Temperature 99.3 F Pulse Rate 109 H Respiratory Rate 26 H Blood Pressure 126/76 125/74 Pulse Oximetry 96 Oxygen Delivery Method Oxygen Flow Rate 05/18/23 13:35 05/18/23 13:40 05/18/23 13:40 Temperature 99.3 F 99.3 F Pulse Rate 109 H 109 H Respiratory Rate 27 H 26 H Blood Pressure 127/77 Pulse Oximetry 97 96 Oxygen Delivery Method Oxygen Flow Rate 05/18/23 14:27 05/18/23 13:45 05/18/23 13:45 Temperature 99.3 F Pulse Rate 109 H 107 H Respiratory Rate 25 H 26 H Blood Pressure 127/77 126/79 Pulse Oximetry 100 97 Oxygen Delivery Method High Flow Nasal Cannula Oxygen Flow Rate 05/18/23 13:50 05/18/23 13:50 05/18/23 13:55 Temperature 99.3 F Pulse Rate 106 H Respiratory Rate 26 H Blood Pressure 120/70 120/72 Pulse Oximetry 97 Oxygen Delivery Method High Flow Nasal Cannula Oxygen Flow Rate 05/18/23 13:55 05/18/23 14:00 05/18/23 14:00 Temperature 99.3 F 99.3 F Pulse Rate 105 H 104 H Respiratory Rate 24 26 H Blood Pressure 121/73 Pulse Oximetry 97 97 Oxygen Delivery Method High Flow Nasal Cannula Oxygen Flow Rate 05/18/23 14:05 05/18/23 14:05 05/18/23 14:10 Temperature 99.3 F Pulse Rate 106 H Respiratory Rate 27 H Blood Pressure 122/71 122/73 Pulse Oximetry 98 Oxygen Delivery Method High Flow Nasal Cannula Oxygen Flow Rate 05/18/23 14:10 05/18/23 14:15 05/18/23 14:15 Temperature 99.3 F 99.3 F Pulse Rate 105 H 106 H Respiratory Rate 25 H 24 Blood Pressure 123/70 Pulse Oximetry 98 99 Oxygen Delivery Method High Flow Nasal Cannula High Flow Nasal Cannula Oxygen Flow Rate 05/18/23 14:20 05/18/23 14:20 05/18/23 14:25 Temperature 99.3 F Pulse Rate 106 H Respiratory Rate 24 Blood Pressure 123/76 126/76 Pulse Oximetry 98 Oxygen Delivery Method High Flow Nasal Cannula Oxygen Flow Rate 05/18/23 14:25 05/18/23 14:30 05/18/23 14:30 Temperature 99.1 F 99.3 F Pulse Rate 105 H 105 H Respiratory Rate 24 25 H Blood Pressure 122/72 Pulse Oximetry 100 99 Oxygen Delivery Method High Flow Nasal Cannula Oxygen Flow Rate 05/18/23 14:35 05/18/23 14:35 05/18/23 14:40 Temperature 99.3 F Pulse Rate 105 H Respiratory Rate 24 Blood Pressure 122/72 127/80 Pulse Oximetry 99 Oxygen Delivery Method Oxygen Flow Rate 05/18/23 14:40 05/18/23 14:45 05/18/23 14:45 Temperature 99.3 F 99.3 F Pulse Rate 107 H 107 H Respiratory Rate 26 H 27 H Blood Pressure 131/80 Pulse Oximetry 99 100 Oxygen Delivery Method Oxygen Flow Rate 05/18/23 14:50 05/18/23 14:50 05/18/23 14:55 Temperature 99.3 F Pulse Rate 107 H Respiratory Rate 22 Blood Pressure 130/77 122/78 Pulse Oximetry 100 Oxygen Delivery Method High Flow Nasal Cannula Oxygen Flow Rate 05/18/23 14:55 05/18/23 15:00 05/18/23 15:00 Temperature 99.3 F 99.3 F Pulse Rate 107 H 106 H Respiratory Rate 22 24 Blood Pressure 123/73 Pulse Oximetry 100 100 Oxygen Delivery Method High Flow Nasal Cannula High Flow Nasal Cannula Oxygen Flow Rate 05/18/23 15:05 05/18/23 15:05 05/18/23 15:10 Temperature 99.3 F Pulse Rate 108 H Respiratory Rate 23 Blood Pressure 133/79 125/78 Pulse Oximetry 100 Oxygen Delivery Method High Flow Nasal Cannula Oxygen Flow Rate 05/18/23 15:10 05/18/23 15:15 05/18/23 15:15 Temperature 99.3 F 99.3 F Pulse Rate 107 H 116 H Respiratory Rate 22 31 H Blood Pressure 125/82 Pulse Oximetry 100 99 Oxygen Delivery Method High Flow Nasal Cannula High Flow Nasal Cannula Oxygen Flow Rate 05/18/23 15:20 05/18/23 15:36 05/18/23 15:38 Temperature 99.3 F Pulse Rate 110 H Respiratory Rate 25 H 25 H 25 H Blood Pressure Pulse Oximetry 97 98 98 Oxygen Delivery Method High Flow Nasal Cannula Oxygen Flow Rate 05/18/23 15:20 05/18/23 15:25 05/18/23 15:25 Temperature 99.1 F Pulse Rate 111 H Respiratory Rate 27 H Blood Pressure 129/83 135/84 Pulse Oximetry 95 Oxygen Delivery Method High Flow Nasal Cannula Oxygen Flow Rate 05/18/23 15:30 05/18/23 15:30 05/18/23 15:35 Temperature 99.3 F Pulse Rate 111 H Respiratory Rate 24 Blood Pressure 138/85 131/86 Pulse Oximetry 100 Oxygen Delivery Method High Flow Nasal Cannula Oxygen Flow Rate 05/18/23 15:35 05/18/23 15:40 05/18/23 15:40 Temperature 99.3 F 99.3 F Pulse Rate 110 H 110 H Respiratory Rate 22 25 H Blood Pressure 127/79 Pulse Oximetry 99 100 Oxygen Delivery Method Oxygen Flow Rate 05/18/23 15:45 05/18/23 15:45 05/18/23 15:50 Temperature 99.5 F Pulse Rate 109 H Respiratory Rate 23 Blood Pressure 126/76 118/67 Pulse Oximetry 100 Oxygen Delivery Method Oxygen Flow Rate 05/18/23 15:50 05/18/23 15:55 05/18/23 15:55 Temperature 99.5 F 99.5 F Pulse Rate 108 H 108 H Respiratory Rate 22 23 Blood Pressure 121/71 Pulse Oximetry 100 100 Oxygen Delivery Method High Flow Nasal Cannula Oxygen Flow Rate 05/18/23 16:00 05/18/23 16:00 05/18/23 16:05 Temperature 99.7 F H Pulse Rate 107 H Respiratory Rate 21 Blood Pressure 119/71 121/70 Pulse Oximetry 100 Oxygen Delivery Method High Flow Nasal Cannula Oxygen Flow Rate 05/18/23 16:05 05/18/23 16:10 05/18/23 16:10 Temperature 99.7 F H 99.7 F H Pulse Rate 108 H 108 H Respiratory Rate 22 21 Blood Pressure 120/66 Pulse Oximetry 100 100 Oxygen Delivery Method High Flow Nasal Cannula High Flow Nasal Cannula Oxygen Flow Rate 05/18/23 16:15 05/18/23 16:15 05/18/23 16:20 Temperature 99.7 F H Pulse Rate 109 H Respiratory Rate 23 Blood Pressure 122/69 127/70 Pulse Oximetry 100 Oxygen Delivery Method High Flow Nasal Cannula Oxygen Flow Rate 05/18/23 16:20 05/18/23 16:25 05/18/23 16:25 Temperature 99.9 F H 99.7 F H Pulse Rate 109 H 109 H Respiratory Rate 27 H 22 Blood Pressure 121/71 Pulse Oximetry 100 100 Oxygen Delivery Method High Flow Nasal Cannula High Flow Nasal Cannula Oxygen Flow Rate 05/18/23 16:30 05/18/23 16:30 05/18/23 16:35 Temperature 99.9 F H Pulse Rate 109 H Respiratory Rate 22 Blood Pressure 120/70 127/72 Pulse Oximetry 100 Oxygen Delivery Method High Flow Nasal Cannula Oxygen Flow Rate 05/18/23 16:35 05/18/23 16:40 05/18/23 16:40 Temperature 99.9 F H 99.9 F H Pulse Rate 109 H 107 H Respiratory Rate 22 22 Blood Pressure 121/71 Pulse Oximetry 100 100 Oxygen Delivery Method High Flow Nasal Cannula High Flow Nasal Cannula Oxygen Flow Rate 05/18/23 16:45 05/18/23 16:45 05/18/23 16:50 Temperature 99.9 F H Pulse Rate 109 H Respiratory Rate 22 Blood Pressure 124/68 124/72 Pulse Oximetry 100 Oxygen Delivery Method High Flow Nasal Cannula Oxygen Flow Rate 05/18/23 16:50 05/18/23 16:55 05/18/23 16:55 Temperature 100.0 F H 99.9 F H Pulse Rate 109 H 109 H Respiratory Rate 20 22 Blood Pressure 132/83 Pulse Oximetry 100 100 Oxygen Delivery Method High Flow Nasal Cannula High Flow Nasal Cannula Oxygen Flow Rate 05/18/23 17:00 05/18/23 17:00 05/18/23 17:05 Temperature 100.0 F H Pulse Rate 107 H Respiratory Rate 21 Blood Pressure 129/77 122/80 Pulse Oximetry 100 Oxygen Delivery Method High Flow Nasal Cannula Oxygen Flow Rate 05/18/23 17:05 05/18/23 17:10 05/18/23 17:10 Temperature 100.0 F H 100.0 F H Pulse Rate 108 H 109 H Respiratory Rate 22 22 Blood Pressure 125/76 Pulse Oximetry 100 100 Oxygen Delivery Method High Flow Nasal Cannula High Flow Nasal Cannula Oxygen Flow Rate 05/18/23 17:15 05/18/23 17:15 05/18/23 17:20 Temperature 100.0 F H Pulse Rate 109 H Respiratory Rate 21 Blood Pressure 126/75 129/73 Pulse Oximetry 100 Oxygen Delivery Method High Flow Nasal Cannula Oxygen Flow Rate 05/18/23 17:20 05/18/23 17:25 05/18/23 17:25 Temperature 100.0 F H 100.2 F H Pulse Rate 110 H 109 H Respiratory Rate 23 20 Blood Pressure 128/72 Pulse Oximetry 100 100 Oxygen Delivery Method High Flow Nasal Cannula High Flow Nasal Cannula Oxygen Flow Rate 05/18/23 17:30 05/18/23 17:30 05/18/23 17:35 Temperature 100.0 F H Pulse Rate 110 H Respiratory Rate 20 Blood Pressure 127/72 126/72 Pulse Oximetry 100 Oxygen Delivery Method High Flow Nasal Cannula Oxygen Flow Rate 05/18/23 17:35 05/18/23 17:40 05/18/23 17:40 Temperature 100.2 F H 100.2 F H Pulse Rate 110 H 109 H Respiratory Rate 20 22 Blood Pressure 124/73 Pulse Oximetry 100 100 Oxygen Delivery Method High Flow Nasal Cannula High Flow Nasal Cannula Oxygen Flow Rate 05/18/23 17:45 05/18/23 17:45 Temperature 100.2 F H Pulse Rate 109 H Respiratory Rate 21 Blood Pressure 125/74 Pulse Oximetry 100 Oxygen Delivery Method High Flow Nasal Cannula Oxygen Flow Rate Medical Decision Making Medical Records Medical records reviewed: Yes I reviewed the patient's medical records. Lab Data Lab results reviewed: Yes I reviewed the patient's lab results. 05/18/23 10:16 05/18/23 10:16 Labs: Lab Results 05/18/23 05/18/23 05/18/23 Range/Units 09:52 10:16 10:16 WBC 22.8 H (4.5-11.0) X10^3/uL RBC 4.48 L (4.5-5.9) X10^6/uL Hgb 10.9 L (13.5-17.5) g/dL Hct 33.1 L (41-53) % MCV 73.9 L (80-100) fL MCH 24.4 L (26-34) PG MCHC 33.0 (30-36) % RDW 16.7 H (11.6-14.8) % Plt Count 449 H (150-400) X10^3/uL Neut % (Auto) 92.5 H (50-75) % Lymph % (Auto) 3.1 L (25-40) % Carson % (Auto) 4.1 (3-14) % Eos % (Auto) 0.1 L (2-4) % Baso % (Auto) 0.2 (0-2) % Neut # (Auto) 46589 H (8098-6274) /uL Lymph # (Auto) 700 L (7034-1450) /uL Carson # (Auto) 900 (0-900) /uL Eos # (Auto) 0 (0-450) /uL Baso # (Auto) 0 (0-100) /uL PT (10.1-12.7) SECONDS INR (0.9-1.3) APTT (26-36) SECONDS Sodium 125 L (137-145) mmol/L Potassium 4.5 (3.4-5.1) mmol/L Chloride 92 L (98-107) mmol/L Carbon Dioxide 25 (22-32) mmol/L BUN 15 (9-20) mg/dL Creatinine 0.34 L (0.66-1.25) mg/dL Estimated GFR > 60 (>60) mL/min BUN/Creatinine Ratio 44.1 H (6-22) Glucose 96 (70-100) mg/dL Lactate (0.7-2.1) mmol/L Calcium 8.8 (8.4-10.2) mg/dL Total Bilirubin 0.6 (0.2-1.3) mg/dL AST 53 (17-59) IU/L ALT 21 (<50) IU/L Alkaline Phosphatase 88 (38-126) U/L NT-Pro-B Natriuret Pep 453 H (<125) pg/mL Total Protein 7.7 (6.3-8.2) g/dL Albumin 3.9 (3.5-5.0) g/dL Globulin 3.8 (1.7-4.1) g/dL Albumin/Globulin Ratio 1.0 (1.0-2.8) Lipase 64 (23-300) U/L Procalcitonin 4.02 H (<0.5) ng/mL Chlamy pneumoniae PCR Not detected (Not Detect) Adenovirus (PCR) Not detected (Not Detect) B. pertussis DNA (PCR) Not detected (Not Detecte) B.parapertussis DNA PCR Not detected (Not Detecte) Coronavirus OC43 (PCR) Not detected (Not Detect) Coronavirus HKU1 (PCR) Not detected (Not Detect) Coronavirus 229E (PCR) Not detected (Not Detect) SARS-CoV-2 (PCR) Not detected (Not Detecte) Coronavirus NL63 (PCR) Not detected (Not Detect) Human Metapneumovir PCR Not detected (Not Detect) Influenza Type A (PCR) Not detected (Not Detect) Influenza Type B (PCR) Not detected (Not Detect) M. pneumoniae (PCR) Not detected (Not Detect) Parainfluenza 1 (PCR) Not detected (Not Detect) Parainfluenza 2 (PCR) Not detected (Not Detect) Parainfluenza 3 (PCR) Not detected (Not Detect) Parainfluenza 4 (PCR) Not detected (Not Detect) RSV (PCR) Not detected (Not Detect) Entero/Rhino (PCR) Not detected (Not Detect) 05/18/23 05/18/23 Range/Units 10:16 10:16 WBC (4.5-11.0) X10^3/uL RBC (4.5-5.9) X10^6/uL Hgb (13.5-17.5) g/dL Hct (41-53) % MCV (80-100) fL MCH (26-34) PG MCHC (30-36) % RDW (11.6-14.8) % Plt Count (150-400) X10^3/uL Neut % (Auto) (50-75) % Lymph % (Auto) (25-40) % Carson % (Auto) (3-14) % Eos % (Auto) (2-4) % Baso % (Auto) (0-2) % Neut # (Auto) (8405-2522) /uL Lymph # (Auto) (2234-1874) /uL Carson # (Auto) (0-900) /uL Eos # (Auto) (0-450) /uL Baso # (Auto) (0-100) /uL PT 23.1 H (10.1-12.7) SECONDS INR 2.0 H (0.9-1.3) APTT 51 H (26-36) SECONDS Sodium (137-145) mmol/L Potassium (3.4-5.1) mmol/L Chloride (98-107) mmol/L Carbon Dioxide (22-32) mmol/L BUN (9-20) mg/dL Creatinine (0.66-1.25) mg/dL Estimated GFR (>60) mL/min BUN/Creatinine Ratio (6-22) Glucose (70-100) mg/dL Lactate 1.4 (0.7-2.1) mmol/L Calcium (8.4-10.2) mg/dL Total Bilirubin (0.2-1.3) mg/dL AST (17-59) IU/L ALT (<50) IU/L Alkaline Phosphatase (38-126) U/L NT-Pro-B Natriuret Pep (<125) pg/mL Total Protein (6.3-8.2) g/dL Albumin (3.5-5.0) g/dL Globulin (1.7-4.1) g/dL Albumin/Globulin Ratio (1.0-2.8) Lipase (23-300) U/L Procalcitonin (<0.5) ng/mL Chlamy pneumoniae PCR (Not Detect) Adenovirus (PCR) (Not Detect) B. pertussis DNA (PCR) (Not Detecte) B.parapertussis DNA PCR (Not Detecte) Coronavirus OC43 (PCR) (Not Detect) Coronavirus HKU1 (PCR) (Not Detect) Coronavirus 229E (PCR) (Not Detect) SARS-CoV-2 (PCR) (Not Detecte) Coronavirus NL63 (PCR) (Not Detect) Human Metapneumovir PCR (Not Detect) Influenza Type A (PCR) (Not Detect) Influenza Type B (PCR) (Not Detect) M. pneumoniae (PCR) (Not Detect) Parainfluenza 1 (PCR) (Not Detect) Parainfluenza 2 (PCR) (Not Detect) Parainfluenza 3 (PCR) (Not Detect) Parainfluenza 4 (PCR) (Not Detect) RSV (PCR) (Not Detect) Entero/Rhino (PCR) (Not Detect) Imaging Data Chest x-ray: Radiologist's Impression: PROCEDURE:? XR CHEST 1V ? INDICATIONS:? Eval for pneumonia ? TECHNIQUE:? One view of the chest was acquired.? ? COMPARISON:? [facility], CT, CT ANGIO CHEST PE PROTOCOL, 03/23/2023, 22:18.? [facility], CR, XR CHEST 1V, 03/23/2023, 21:03. ? FINDINGS:? ? Surgical changes and devices:? None.? ? Lungs and pleura:? Chest x-ray findings are similar.? Continued left basilar atelectasis and consolidation and pleural fluid.? Continued right basilar pleural effusion. ? Mediastinum:? Mediastinal contours appear normal.? Heart size is normal.? ? Bones and chest wall:? No suspicious bony lesions.? Overlying soft tissues appear unremarkable.? ? ? IMPRESSION:? No significant change.? Left basilar pneumonia and atelectasis and pleural fluid, right basilar pleural fluid. Echo: Radiologist's Impression: ? [facility]+? [facility]? +---------+ : ? :? [address] ? : ? : : ? :? [place] ? : ? : : ? :? [id number] ? : ? : : ? : ? Phone: [phone]? : ? : +[phone]? [phone]? +---------+ ? Echocardiogram Report + + :Name: JEFFY CHOI? Study Date: 05/18/2023 ? Height: 72 in? : :[facility] ? ? ReadingLocation: ? Weight: 165 lb : : ? Gender: Male ? BSA: 2.0 m2? ? : :: 1980? Age: 43 yrs? BP: 137/78 mmHg: :Reason For Study: HISTORY OF PERICARDIAL EFFUSION, SHORTNESS ? : :OF BREATH? : :Ordering Physician: KAYLIN,? : :NORMAN? Performed By: Barbi Pride? : :Referring: NORMAN PERRIN ? : + + Interpretation Summary Limited Echo: There is a trivial to small pericardial effusion noted best seen in the apical windows next to the RV distal free wall. There is a small left-sided pleural effusion. ? Procedure: ? Images were not obtained from all of the standard acoustic windows due to the limited scope of the study. The study quality was technically difficult. Comparison is made with the echocardiogram of 05/27/2017. The patient was in sinus tachycardia with heart rates between 122- 126 bpm during the exam. Left Ventricle: ? The left ventricle is normal in size and wall thickness. The ejection fraction is estimated to be 60-65%. Pericardium/ Pleura ? There is a trivial to small pericardial effusion noted. There is a small left-sided pleural effusion. ? MMode/2D Measurements & Calculations LVIDd: 4.4 cm ? LVOT diam: 2.3 cm LVIDs: 2.8 cm ? asc Aorta Diam: 3.2 cm FS: 36.0 % EPSS: 0.70 cm IVSd: 0.70 cm LVPWd: 0.86 cm LV clements. diameter/BSA (cm/m^2): 2.2 LV sys. diameter/BSA (cm/m^2): 1.4 ? Doppler Measurements & Calculations PA V2 max: 79.5 cm/sec PA V2 mean: 55.8 cm/sec PA mean P.4 mmHg PA pr(Accel): 36.6 mmHg MDM Narrative Medical decision making narrative: Patient was tachypneic and hypoxic. He was placed on high-flow nasal cannula and has maintained that over several hours while being here in the emergency department. His heart rate improved, respiratory rate improved and his oxygen saturations are now greater than 95%. Given his presentation and his history this is very consistent with pneumonia. COVID was negative. Has been suctioned multiple times. Sputum culture and blood cultures were obtained. Patient was started on Rocephin and azithromycin. After discussion with Dr. Grewal who was the accepting provider at [facility] we added on vancomycin and cefepime for his recent hospital stays. Echocardiogram here shows just a trace pericardial effusion. Patient does require transfer to a higher level of care given his underlying issues. Dr. Grewal accepts patient in transfer. Discussed need for transfer with mother. She expressed understanding and agreement. Patient is stable for transport. Discharge Plan Departure Patient Disposition: [facility] Clinical Impression: Pneumonia, Pseudobulbar palsy, Cerebral palsy, Acute respiratory distress, Hypoxia Prescriptions: No Action Calmoseptine 0.44-20.6 % ointment 1 applic TOP QID PRN (Reason: skin irritation) Qty: 113 0RF (DME) XL mattress for semi-electric hospital bed See Rx Instructions .Route .MEDSUPPLY Qty: 1 0RF Rx Instructions: use daily as directed (DME) Disabled Parking Qty: 1 0RF Rx Instructions: I find this patient to be medically disabled and qualified for Disabled Parking as indicated, and signed, on the Accompanying Disabled Parking Application for Individuals ferrous sulfate 325 mg (65 mg iron) tablet 130 mg PO DAILY Hold Instructions: on J tube sertraline 20 mg/mL concentrate 150 mg PO DAILY 30 Days Qty: 225 3RF Rx Instructions: Give 7.5mL via J-tube baclofen 5 mg/5 mL solution 5 mg PO DAILY Qty: 473 3RF Rx Instructions: Give 5mL via J-tube (DME) Mattress See Rx Instructions .Route .MEDSUPPLY Qty: 1 0RF Rx Instructions: Long mattress for hospital bed (DME) Battery Powered Lift Qty: 1 0RF Dose Instruction: As directed Rx Instructions: Use daily as directed for transfers to and from bed (DME) Power Chair tall Qty: 1 0RF Dose Instruction: As directed Rx Instructions: As directed for patient care with activities of daily living. Chair needs to tilt foreword and tilt backwards for patient care. Pt is 6 feet tall and will need to fit height. (DME) Semi-electric hospital bed Qty: 1 0RF Dose Instruction: As directed Rx Instructions: Semi-electric hospital bed to permit transfers to wheelchair and to attach traction equipment. Must be large enough and long enough to accommodate his height and weight. EDEN: 99 months (DME) Shower Chair Qty: 1 0RF Rx Instructions: As directed for patient care with activities of daily living. Chair needs to tilt foreword and tilt backwards for patient care. Pt is 6 feet tall and will need to fit height. Botox 100 unit recon soln 200 unit IM ONCE Patient Comments: Mother of patient believes he is due for next injection Rx Instructions: Goes every 3 Months for injection Eliquis 5 mg tablet 5 mg PO BID Qty: 60 2RF (DME) suction catheter See Rx Instructions .Route .MEDSUPPLY Qty: 1 0RF Rx Instructions: Mya suction catheter (or equivalent) equipement and disposable Referrals: Chucky Marshall MD [Primary Care Provider] -
--- NOTE | 2023-05-18 10:05 | DI.ECHO.S_ITS ---
[facility]---------+ [facility] +---------+ : : [address] : : : : [id number] : : : : Phone: [phone] : [phone] +---------+ Echocardiogram Report + + :Name: JEFFY CHOI Study Date: 05/18/2023 Height: 72 in : :[facility] ReadingLocation: Weight: 165 lb : : Gender: Male BSA: 2.0 m2 : :: 1980 Age: 43 yrs BP: 137/78 mmHg: :Reason For Study: HISTORY OF PERICARDIAL EFFUSION, SHORTNESS : :OF BREATH : :Ordering Physician: KAYLIN, : :ROGER Performed By: Barbi Pride : :Referring: ROGER EWING : + + Interpretation Summary Limited Echo: There is a trivial to small pericardial effusion noted best seen in the apical windows next to the RV distal free wall. There is a small left-sided pleural effusion. Procedure: Images were not obtained from all of the standard acoustic windows due to the limited scope of the study. The study quality was technically difficult. Comparison is made with the echocardiogram of 05/27/2017. The patient was in sinus tachycardia with heart rates between 122- 126 bpm during the exam. Left Ventricle: The left ventricle is normal in size and wall thickness. The ejection fraction is estimated to be 60-65%. Pericardium/ Pleura There is a trivial to small pericardial effusion noted. There is a small left-sided pleural effusion. MMode/2D Measurements & Calculations LVIDd: 4.4 cm LVOT diam: 2.3 cm LVIDs: 2.8 cm asc Aorta Diam: 3.2 cm FS: 36.0 % EPSS: 0.70 cm IVSd: 0.70 cm LVPWd: 0.86 cm LV clements. diameter/BSA (cm/m^2): 2.2 LV sys. diameter/BSA (cm/m^2): 1.4 Doppler Measurements & Calculations PA V2 max: 79.5 cm/sec PA V2 mean: 55.8 cm/sec PA mean P.4 mmHg PA pr(Accel): 36.6 mmHg Reading Physician:12:11 PM
[2023-05-18] MEDS: SODIUM CHLORIDE 0.9% 1,000 ML 125 ML IV (10:18)
[2023-05-18 10:29] LABS: Add Manual Diff / Slide Review NO; Basophils Absolute Auto 0 /uL (0-100); Basophils Percent Auto 0.2 % (0-2); Eosinophils Absolute Auto 0 /uL (0-450); Eosinophils Percent Auto 0.1 % (2-4); Hematocrit 33.1 % (41-53); Hemoglobin 10.9 g/dL (13.5-17.5); Lymphocytes Absolute Auto 700 /uL (1100-4500); Lymphocytes Percent Auto 3.1 % (25-40); Mean Corpuscular Hemoglobin 24.4 PG (26-34); Mean Corpuscular Volume 73.9 fL (80-100); Monocytes Absolute Auto 900 /uL (0-900); Monocytes Percent Auto 4.1 % (3-14); Neutrophils Absolute Auto 21100 /uL (1500-7000); Neutrophils Percent Auto 92.5 % (50-75); Platelet Count 449 X10^3/uL (150-400); Red Blood Cell Count 4.48 X10^6/uL (4.5-5.9); Red Cell Distribution Width 16.7 % (11.6-14.8); White Blood Cell Count 22.8 X10^3/uL (4.5-11.0)
[2023-05-18] MEDS: cefTRIAXone 1,000 MG in SODIUM CHLORIDE 0.9% 100 ML 200 MG IV (10:29)
[2023-05-18] MEDS: AZITHROMYCIN 500 MG in DEXTROSE 5% IN WATER 250 ML 250 MG IV (10:32)
[2023-05-18 10:36] LABS: Prothrombin Time 23.1 SECONDS (10.1-12.7)
[2023-05-18 10:39] LABS: PTT Partial Thromboplastin Tim 51 SECONDS (26-36)
[2023-05-18 10:41] LABS: Alanine Aminotransferase 21 IU/L (<50); Albumin 3.9 g/dL (3.5-5.0); Alkaline Phosphatase 88 U/L (38-126); Aspartate Aminotransferase 53 IU/L (17-59); BUN Creatinine Ratio 44.1 (6-22); Bilirubin Total 0.6 mg/dL (0.2-1.3); Blood Urea Nitrogen 15 mg/dL (9-20); Calcium 8.8 mg/dL (8.4-10.2); Carbon Dioxide 25 mmol/L (22-32); Chloride 92 mmol/L (98-107); Estimated Glomerular Filt Rate > 60 mL/min (>60); Globulin 3.8 g/dL (1.7-4.1); Glucose 96 mg/dL (70-100); HEMOLYSIS < 15 (0-50); Lactate (Lactic Acid) 1.4 mmol/L (0.7-2.1); Lipase 64 U/L (23-300); Potassium 4.5 mmol/L (3.4-5.1); Sodium 125 mmol/L (137-145); Total Protein 7.7 g/dL (6.3-8.2)
[2023-05-18 10:50] LABS: NT-proBNP (BNP-Adult 18+) 453 pg/mL (<125)
[2023-05-18 10:57] LABS: Procalcitonin 4.02 ng/mL (<0.5)
[2023-05-18 11:13] LABS: Adenovirus Not Detected (Not Detect); B. parapertussis Not Detected (Not Detecte); Bordetella pertussis Not Detected (Not Detecte); Chlamydophila pneumoniae Not Detected (Not Detect); Coronavirus 229E Not Detected (Not Detect); Coronavirus HKU1 Not Detected (Not Detect); Coronavirus NL 63 Not Detected (Not Detect); Coronavirus OC43 Not Detected (Not Detect); Human Metapneumovirus Not Detected (Not Detect); Human Rhinovirus/Enterovirus Not Detected (Not Detect); Influenza A Not Detected (Not Detect); Influenza B Not Detected (Not Detect); Mycoplasma pneumoniae Not Detected (Not Detect); Parainfluenza Virus 1 Not Detected (Not Detect); Parainfluenza Virus 2 Not Detected (Not Detect); Parainfluenza Virus 3 Not Detected (Not Detect); Parainfluenza Virus 4 Not Detected (Not Detect); Respiratory Syncytial Virus Not Detected (Not Detect); SARS- CoV-2 Not Detected (Not Detecte)
[2023-05-18] MEDS: CEFEPIME 2 GM in SODIUM CHLORIDE 0.9% 100 ML IV (12:58)
[2023-05-18] MEDS: VANCOMYCIN 1,000 MG/200 ML PIGGYBACK 200 MG IV (13:38)
--- NOTE | 2023-05-18 15:39 | PC.NURSE ---
RT deep suctioned patient, small amount of thick white sputum removed. Patient tolerated well
[2023-05-18] MEDS: ACETAMINOPHEN IV 1,000 MG/100 ML VIAL 400 MG IV (17:48)
--- NOTE | 2023-05-18 17:57 | PC.NURSE ---
Patient repositioned and propped with pillows on left side to take pressure of coccyx.
[2023-05-19 10:38] LABS: Acinetobacter calcoa-baumannii Not Detected (Not Detect); Bacteroides fragilis Not Detected (Not Detect); Enterobacter cloacae complex Not Detected (Not Detect); Enterobacterales Not Detected (Not Detect); Enterococcus faecalis Not Detected (Not Detect); Enterococcus faecium Not Detected (Not Detect); Klebsiella aerogenes Not Detected (Not Detect); Listeria monocytogenes Not Detected (Not Detect); Proteus species Not Detected (Not Detect); Salmonella species Not Detected (Not Detect); Serratia marcescens Not Detected (Not Detect); Staphylococcus epidermidis DETECTED (Not Detect); Staphylococcus lugdunensis Not Detected (Not Detect); Staphylococcus species DETECTED (Not Detect); Streptococcus agalactiae (Gr B Not Detected (Not Detect); Streptococcus pneumonia Not Detected (Not Detect); Streptococcus pyogenes (Gr A) Not Detected (Not Detect); Streptococcus species Not Detected (Not Detect); mecA/C Resistance DETECTED (Not Detect)
[2023-05-19 10:39] LABS: Candida albicans Not Detected (Not Detect); Candida auris Not Detected (Not Detect); Candida glabrata Not Detected (Not Detect); Candida krusei Not Detected (Not Detect); Candida parapsilosis Not Detected (Not Detect); Candida tropicalis Not Detected (Not Detect); Cryptococcus neoformans/gatti Not Detected (Not Detect); Haemophilus influenzae Not Detected (Not Detect); Neisseria meningitidis Not Detected (Not Detect); Pseudomonas aeruginosa Not Detected (Not Detect); Stenotrophomonas maltophilia Not Detected (Not Detect)
== END 2023-05-18 18:34 | disposition short-term general hospital (02) ==
PROVIDERS: Emergency Provider Emergency Medicine; PCP Internal Medicine
DX: J18.9 Pneumonia, unspecified organism (principal); R09.02 Hypoxemia; G80.9 Cerebral palsy, unspecified; R06.02 Shortness of breath; Z79.01 Long term (current) use of anticoagulants; Z20.822 Contact with and (suspected) exposure to COVID-19
CPT/HCPCS: 36415; 71045; 80053; 83605; 83690; 83880; 84145; 85025; 85610; 85730; 87040; 87070; 87077; 87147; 87154; 87186; 87205; 87633; 93005; 93307; 94799; 96365; 96367; 96368; 99285; J0131; J0692; J0696

== ENCOUNTER → 2023-06-08 10:33 | Outpatient (CLI) | payer MEDICAID, SELFPAY ==
[2023-04-04 11:09] VITALS: PULSE 89; RESP 16; O2SAT 100; BMI 23.0
[2023-06-08 12:34] LABS: Hemoglobin 9.9 g/dL (13.5-17.5); Mean Corpuscular Volume 75.5 fL (80-100); Platelet Count 518 X10^3/uL (150-400); Red Blood Cell Count 3.97 X10^6/uL (4.5-5.9); Red Cell Distribution Width 17.6 % (11.6-14.8); White Blood Cell Count 4.7 X10^3/uL (4.5-11.0)
[2023-06-08 13:15] LABS: Alanine Aminotransferase 21 IU/L (<50); Albumin Globulin Ratio 1.1 (1.0-2.8); Alkaline Phosphatase 86 U/L (38-126); Aspartate Aminotransferase 27 IU/L (17-59); BUN Creatinine Ratio 46.4 (6-22); Bilirubin Total 0.3 mg/dL (0.2-1.3); Blood Urea Nitrogen 13 mg/dL (9-20); Calcium 9.2 mg/dL (8.4-10.2); Carbon Dioxide 25 mmol/L (22-32); Chloride 96 mmol/L (98-107); Estimated Glomerular Filt Rate > 60 mL/min (>60); Globulin 3.7 g/dL (1.7-4.1); Glucose 59 mg/dL (70-100); HEMOLYSIS < 15 (0-50); Potassium 4.3 mmol/L (3.4-5.1); Sodium 130 mmol/L (137-145); Total Protein 7.7 g/dL (6.3-8.2)
[2023-06-08 13:18] LABS: HEMOLYSIS < 15 (0-50); Iron 41 ug/dL (49-181)
[2023-06-08 13:27] LABS: Percent Iron Saturation 13 % (20-50); Total Iron Binding Capacity 326 ug/dL (261-462); Transferrin 226 mg/dL (206-381)
[2023-06-08 13:39] LABS: Ferritin 279 ng/mL (18-464)
[2023-06-08 14:10] LABS: Folate 15.3 ng/mL (2.76-20.0); Vitamin B12 991 pg/mL (239-931)
[2023-06-12 20:15] LABS: Vitamin B1 152.6 nmol/L (66.5-200.0)
== END ==
PROVIDERS: PCP Internal Medicine; Referring Provider Internal Medicine; Visit Provider Internal Medicine
DX: E46 Unspecified protein-calorie malnutrition (principal); E87.1 Hypo-osmolality and hyponatremia; D64.9 Anemia, unspecified; E53.8 Deficiency of other specified B group vitamins
CPT/HCPCS: 36415; 80053; 82607; 82728; 82746; 83540; 83550; 84425; 85027

== ENCOUNTER → 2023-07-29 13:51 | Outpatient (CLI) | payer MEDICAID, SELFPAY ==
[2023-04-04 11:09] VITALS: PULSE 89; RESP 16; O2SAT 100; BMI 23.0
--- NOTE | 2023-07-29 13:53 | DI.CT.S_ITS ---
PROCEDURE: CT CHEST WO CON INDICATIONS: PSEUDOBULBAR PALSY TECHNIQUE: Noncontrast 5 mm thick sections acquired from the pulmonary apices to the posterior costophrenic angles. 1 mm lung window, 5 mm thick coronal and sagittal and 7 mm axial MIP reformats were then acquired. For radiation dose reduction, the following was used: automated exposure control, adjustment of mA and/or kV according to patient size. COMPARISON: [facility], CT, CT ANGIO CHEST PE PROTOCOL, 03/23/2023, 22:18. FINDINGS: Image quality: Limited quality of visualization due to absence of intravenous contrast.. Lungs and pleura: No acute air space opacities. Chronic partial opacification with air bronchograms at the posterior left lower lobe is again noted. There has been no change in the mild posterior right hemithorax pleural thickening which may represent a chronic small pleural effusion. No increasing pleural effusions or pneumothorax. Central and peripheral airways are normal in caliber. Mediastinum: Heart size is normal. No pericardial effusion. No mediastinal adenopathy by size criteria. Thoracic aorta and central pulmonary arteries are normal in size. Esophagus is normal in caliber. No hiatal hernia. Bones and chest wall: No suspicious bony lesions. No vertebral body compression fractures. No axillary or supraclavicular adenopathy by size criteria. Thyroid gland is poorly seen by this noncontrast technique. Tracheostomy tube appears in normal position. Abdomen: Visualized upper abdominal solid organs and bowel loops appear normal in the absence of contrast. IMPRESSION: No acute disease, chronic partial opacification of the posterior left lower lobe. Small to moderate size right pleural thickening which may reflect pleural effusion. Quality of visualization is somewhat limited by this noncontrast technique. Dictated by: Gordo Neves M.D. on 07/29/2023 at 16:44 Approved by: Gordo Neves M.D. on 07/29/2023 at 17:01
== END ==
PROVIDERS: PCP Internal Medicine; Referring Provider Internal Medicine; Visit Provider Internal Medicine
DX: G12.29 Other motor neuron disease (principal); J69.0 Pneumonitis due to inhalation of food and vomit
CPT/HCPCS: 71250

== ENCOUNTER 2023-10-14 13:16 | Emergency (ER) | payer MEDICAID, SELFPAY ==
[2023-04-04 11:09] VITALS: PULSE 89; RESP 16; O2SAT 100; BMI 23.0
[2023-10-14 13:28] VITALS: BP 100/68; PULSE 83; RESP 15; TEMP 36.7; O2SAT 99
--- NOTE | 2023-10-14 13:52 | PC.NURSE ---
The patient is a 43 year old male who comes in with hx of CP and has a trache and peg tube placed. He has brighten red skin around his trache but is afebrile and moving air. o2 sata is 98% on RA and does not appear to be in distress. RT onsite and suctioning is at bedside. The patient's peg tube has active slow bleeding around the stoma site. The tissue appears to be vascularized and slowly bleeding. saline soaked guaze applied to the site. APC aware and will consult with MD on site.
--- NOTE | 2023-10-14 14:14 | PC.NURSE ---
MD, APC, and RT on site assessing the patient. awaiting new orders.
[2023-10-14] MEDS: BACITRACIN OINT 0.9 GM PCKT 2 APPLIC TOP (14:22)
--- NOTE | 2023-10-14 14:34 | ED.SKABFB ---
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 Both of these were placed last summer at [facility] per patient's mother. He does follow with primary care and they recently had a visit from a home nurse who was concerned that he has new granulation tissue that has been bleeding some at the site of his J-tube. Nurse was also concerned that he has irritation of the skin around his tracheostomy and wanted him evaluated for this so they came in today to the emergency department. Patient's mom states that he started on blood thinners last summer and ever since that time when they change the dressing on his J-tube he occasionally has a tiny bit of blood present but in the last couple days it has been more prominent, she also feels that the tissue around the base at the insertion site is new. Patient has been in his normal state of health and they deny that he has had any recent fevers, chills, change in energy level, change in output or intake or any other symptoms. Related Data Home Medications Medication Instructions Recorded Confirmed onabotulinumtoxinA 100 unit 200 unit IM ONCE 07/20/21 08/10/23 solution for injection (Botox) ferrous sulfate 325 mg (65 mg 130 mg PO DAILY 10/29/21 08/10/23 iron) tablet scopolamine base 1 mg over 3 days 1 patch topical Q3D 08/10/23 08/10/23 transdermal patch syringe with needle 3 mL 20 gauge #1 ea 08/10/23 08/10/23 x 1 (BD Luer-Rafael Syringe) Previous Rx's Medication Instructions Recorded Battery Powered Lift #1 ea 03/02/18 Power Chair #1 ea 10/16/18 Semi-electric hospital bed #1 ea 11/17/18 Disabled Parking #1 ea 01/15/19 Shower Chair #1 ea 07/04/19 XL mattress for semi-electric #1 ea 09/27/22 hospital bed menthol 0.44 %-zinc oxide 20.6 % 1 applic topical QID PRN skin 09/27/22 topical ointment (Calmoseptine) irritation #113 grams Mattress #1 ea 01/20/23 baclofen 5 mg/5 mL oral solution 5 mg (5 mL) PO DAILY #473 mL 01/20/23 suction catheter #1 ea 04/06/23 apixaban 5 mg tablet (Eliquis) 5 mg PO BID #60 tabs 08/29/23 sertraline 100 mg tablet 150 mg (1.5 x 100 mg) PO DAILY #45 10/10/23 tabs silver nitrate applicators 75 %-25 1 applic topical 2XW PRN bleeding 10/14/23 % topical stick of granulation tissue 2 weeks #100 ea Allergies Allergy/AdvReac Type Severity Reaction Status Date / Time Penicillins [PENICILLINS] Allergy Severe RASH Verified 10/14/23 13:28 levofloxacin Allergy Intermediate Rash Verified 10/14/23 13:28 Review of Systems <Eloisa lElis PA-C - Last Filed: 10/14/23 19:08> Review of Systems Narrative: See HPI Patient History <Eloisa Ellis PA-C - Last Filed: 10/14/23 19:08> Medical History Tracheostomy in place Sacral decubitus ulcer, stage III Protein calorie malnutrition Hyponatremia Dysphagia Recurrent aspiration pneumonia Depression, major, recurrent Jejunostomy tube present Influenza A Anemia Pneumonia Spastic 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 Father No problems noted. Social History marital status: unmarried,single details: Lives independantly with caregivers household members: family Smoking Status: Former smoker alcohol intake: never substance use type: marijuana Smoking Status: Former smoker alcohol intake frequency: 0-2 drinks per day Substance Use Type: marijuana Exam <Eloisa Ellis PA-C - Last Filed: 10/14/23 19:08> Narrative Exam Narrative: GENERAL: [43] year old patient appears stated age. Well-developed patient, in mild distress, wheelchair-bound, in electric wheelchair, alert and tracking. HEAD: Atraumatic. Normocephalic. EYES: Pupils equal round and reactive. Extraocular motions intact. No scleral icterus. No injection or drainage. ENT: Nose without bleeding, purulent drainage. Airway patent. See neck NECK: Trachea midline, There is a tracheostomy tube in place and secured. Non tender. The skin around the trach tube is mildly erythematous but it is nontender, there are some secretions present and the gauze dressing underneath the tube mccauley is slightly crusted with secretions and damp. CARDIOVASCULAR: Regular rate and rhythm without murmurs, gallops, or rubs. RESPIRATORY: Clear to auscultation. Breath sounds equal bilaterally. No wheezes, rales, or rhonchi. GASTROINTESTINAL: Abdomen soft, non-tender, nondistended--there is a J-tube in place, with a small amount of dried blood present on the dressing around the tube insertion site. With removal of this, tissue was noted at the insertion site and there are small blood clots present when these are wiped away small pool of blood develops around the J-tube site approximately 5 mL of thick blood and clots. This bleeding does not persist and when the clots and blood are wiped away and a new dressing is placed it does not bleed through. EXTREMITIES: Reduced range of motion with some muscle wasting present and some contractures NEURO: AOx3. SKIN: No rash or erythema of visible areas Initial Vital Signs Initial Vital Signs: Vital Signs Temperature 98.0 F 10/14/23 13:28 Pulse Rate 83 10/14/23 13:28 Respiratory Rate 15 10/14/23 13:28 Blood Pressure 100/68 10/14/23 13:28 Pulse Oximetry 99 10/14/23 13:28 Oxygen Delivery Method Room Air 10/14/23 13:28 <Norman Perrin DO - Last Filed: 10/15/23 07:01> Initial Vital Signs Initial Vital Signs: Vital Signs Temperature 98.0 F 10/14/23 13:28 Pulse Rate 83 10/14/23 13:28 Respiratory Rate 15 10/14/23 13:28 Blood Pressure 100/68 10/14/23 13:28 Pulse Oximetry 99 10/14/23 13:28 Oxygen Delivery Method Room Air 10/14/23 13:28 Course <Eloisa Ellis PA-C - Last Filed: 10/14/23 19:08> Course Course Narrative: RT was consulted from triage as this patient has a trach in place, and RT came to evaluate and suction the patient and placed a new dressing on tracheostomy, as well as provide education for patient and his mother regarding ongoing care. 1400 Discussed this patient with Dr. Perrin who also personally evaluated the patient. He does advise surgical consult given the new bleeding that has been present recently at site of g-tube; he feels that the tissue present at the insertion site is granulation tissue. We discussed possibly obtaining ultrasound or imaging but do not feel this is necessary as the patient has been well and this appears to be bleeding associated with new granulation tissue around the G-tube site. 1415 Discussed the patient with Dr. Sandy over the phone who recommends using silver nitrate to decrease bleeding in the granulation tissue around patient's G-tube. Does not believe he will be able to get into see the patient himself personally this afternoon due to multiple cases. 1428 Orders Ordered: Discontinued Medications Bacitracin (Bacitracin Oint 0.9 Gm Pckt) 2 applic TOP NOW ONE Stop: 10/14/23 14:20 Last Admin: 10/14/23 14:22 Dose: 2 applic Documented By: CHARLIE Silver Nitrate/Potassium Nitrate (Silver Nitrate Stick) 2 each TOP NOW ONE Stop: 10/14/23 14:44 Last Admin: 10/14/23 15:11 Dose: 2 each Documented By: CHARLIE Vital Signs Vital signs: Vital Signs - 8 hr 10/14/23 13:28 10/14/23 14:46 Temperature 98.0 F 98.2 F Pulse Rate 83 80 Respiratory Rate 15 16 Blood Pressure 100/68 93/63 Pulse Oximetry 99 95 Oxygen Delivery Method Room Air Room Air <Norman Perrin DO - Last Filed: 10/15/23 07:01> Orders Ordered: Discontinued Medications Bacitracin (Bacitracin Oint 0.9 Gm Pckt) 2 applic TOP NOW ONE Stop: 10/14/23 14:20 Last Admin: 10/14/23 14:22 Dose: 2 applic Documented By: CHARLIE Silver Nitrate/Potassium Nitrate (Silver Nitrate Stick) 2 each TOP NOW ONE Stop: 10/14/23 14:44 Last Admin: 10/14/23 15:11 Dose: 2 each Documented By: CHARLIE Vital Signs Vital signs: Vital Signs - 8 hr 10/14/23 13:28 10/14/23 14:46 Temperature 98.0 F 98.2 F Pulse Rate 83 80 Respiratory Rate 15 16 Blood Pressure 100/68 93/63 Pulse Oximetry 99 95 Oxygen Delivery Method Room Air Room Air MDM - Skin/Abscess/Foreign Bdy <Eloisa Ellis PA-C - Last Filed: 10/14/23 19:08> Differential Diagnosis Differential diagnosis: Likely abscess of skin or subcutaneous tissue, cellulitis and other (Dermatitis, bleeding granulation tissue) Medical Records Attestation: I reviewed the patient's medical records. Lab Data Attestation: I reviewed the patient's lab results. Labs: Urine Dip Bedside Urine Glucose Negative Bedside Urine Bilirubin - Negative Bedside Urine Ketone - Negative Urine Specific [place] 1.015 Bedside Urine Occult Blood - Negative Bedside Urine pH 6.0 Bedside Urine Protein - Negative Bedside Urine Urobilinogen - Negative Bedside Urine Nitrite - Negative Bedside Urine Leukocytes - Negative Esterase Treatment and disposition Shared decision making:: Shared decision-making was used in determining plan for evaluation today in the emergency department, RT care and surgery consult. MDM Narrative Medical decision making narrative: This is a 43-year-old male with history of cerebral palsy, electric wheelchair-bound with a J-tube present and tracheostomy present since this summer. Patient has also been on blood thinners, apixaban since this summer. Presented today with concern for a mild amount of bleeding over the last few days with some new tissue present around the J-tube site as well as possible concern for infection or inflammation around his tracheostomy site. Patient was evaluated by respiratory therapy and also evaluated by attending physician at my request, surgery was also consulted regarding the J-tube site. Evaluation of the area around patient's tracheostomy and after consultation with RT this is most consistent with persistent moist skin/tissue and they are counseled to change dressings on his trach twice daily rather than once daily which they have been doing. There is not evidence of infection. Patient's J-tube also has some mild erythema around the site of the tube however it is most consistent with moisture and skin irritation and also not suspicious for infection. After consultation with surgery silver nitrate sticks were used to cauterize the granulation tissue present at the J tube insertion site with good results. Prescription for silver nitrate sticks is provided as the home care nurse that visited them recently and whom they may be able to see ongoing is comfortable using these as needed. Counseled patient and his mother that they should consider having follow-up not only with her primary care but possibly seeing General surgery/returning to [facility] for [facility] recheck of his tracheostomy and J-tube given recent development of granulation tissue as they were placed there this past summer. They are agreeable with this plan. Return precautions provided, follow-up plan discussed, all questions answered. <Norman Perrin, DO - Last Filed: 10/15/23 07:01> Lab Data Labs: Urine Dip Bedside Urine Glucose Negative Bedside Urine Bilirubin - Negative Bedside Urine Ketone - Negative Urine Specific [place] 1.015 Bedside Urine Occult Blood - Negative Bedside Urine pH 6.0 Bedside Urine Protein - Negative Bedside Urine Urobilinogen - Negative Bedside Urine Nitrite - Negative Bedside Urine Leukocytes - Negative Esterase Discharge Plan Departure Patient Disposition: Home Clinical Impression: Gastric tube granulation tissue, Tracheostomy care Activity Restrictions/Additional Instructions: *You have been diagnosed with [granulation tissue at your G-tube insertion site, skin changes associated with chronic moisture at your tracheostomy site] *What to do: *Please continue to take your regular medications as directed. [ 1] New medication prescriptions sent to your pharmacy: [Silver nitrate sticks to be used by visiting nurse as needed at g-tube site] [ ] New medication written as a paper prescription [ ] No new medications given *Please follow up with your primary care provider in 2-3 days, call for an appointment. Let them know you were seen in the Emergency Department and that we ask that you be seen in follow up. We will electronically transmit a record of today's note if your PCP is in our system. Jonnie came in today with concern for some redness around his stoma and also some concern for increased redness around his G-tube insertion site and slightly more blood than usual at his G-tube insertion site with some new tissue noted there recently. Respiratory therapy did suctioning and cleaning of the trach and discussed tracheostomy care and recommendations. I also consulted surgery after the attending physician and I looked at the G-tube site and it does look like granulation tissue which is likely the cause of the increased bleeding recently. This was treated with silver nitrate today in the emergency department. I have also placed in order to your pharmacy so that you can have silver nitrate sticks available for the visiting nurse to use if she feels that the granulation tissue warrants it. The tracheostomy site is most likely consistent with having the area to moist and likely needs dressing changes more often as RT discussed with you. At this time I do not think there is evidence of infection and we are not putting you on antibiotics. I would encourage you to consider having a follow up visit with [facility] where he had both tracheostomy placed and G-tube placed this summer so that they can check back in with how things are going and make sure everything is on track. Of course if there is any heavy or persistent bleeding from the G-tube site or you have any other concerns please do not hesitate to call 911 or seek re-evaluation in the emergency department immediately. *If you do not have a primary care provider please contact the [facility] Resource line at [phone]. They will ask some questions about your medical history and help get you set up with a doctor in the community. *Return to Emergency Department if you should have any new, worsening or concerning symptoms, such as [fever greater than 101 F, shaking chills, worsening pain, persistent vomiting or other bothersome symptoms] Prescriptions: New silver nitrate applicators 75-25 % stick 1 applic topical 2XW MDD 4-5 sticks PRN (Reason: bleeding of granulation tissue) 14 Days Qty: 100 0RF Rx Instructions: if persistent or heavy bleeding seek medical care immediately No Action Calmoseptine 0.44-20.6 % ointment 1 applic TOP QID PRN (Reason: skin irritation) Qty: 113 0RF (DME) XL mattress for semi-electric hospital bed See Rx Instructions .Route .MEDSUPPLY Qty: 1 0RF Rx Instructions: use daily as directed (DME) Disabled Parking Qty: 1 0RF Rx Instructions: I find this patient to be medically disabled and qualified for Disabled Parking as indicated, and signed, on the Accompanying Disabled Parking Application for Individuals ferrous sulfate 325 mg (65 mg iron) tablet 130 mg PO DAILY Hold Instructions: on J tube baclofen 5 mg/5 mL solution 5 mg PO DAILY Qty: 473 3RF Rx Instructions: Give 5mL via J-tube (DME) Mattress See Rx Instructions .Route .MEDSUPPLY Qty: 1 0RF Rx Instructions: Long mattress for hospital bed (DME) Battery Powered Lift Qty: 1 0RF Dose Instruction: As directed Rx Instructions: Use daily as directed for transfers to and from bed (DME) Power Chair tall Qty: 1 0RF Dose Instruction: As directed Rx Instructions: As directed for patient care with activities of daily living. Chair needs to tilt foreword and tilt backwards for patient care. Pt is 6 feet tall and will need to fit height. (DME) Semi-electric hospital bed Qty: 1 0RF Dose Instruction: As directed Rx Instructions: Semi-electric hospital bed to permit transfers to wheelchair and to attach traction equipment. Must be large enough and long enough to accommodate his height and weight. EDEN: 99 months (DME) Shower Chair Qty: 1 0RF Rx Instructions: As directed for patient care with activities of daily living. Chair needs to tilt foreword and tilt backwards for patient care. Pt is 6 feet tall and will need to fit height. Botox 100 unit recon soln 200 unit IM ONCE Patient Comments: Mother of patient believes he is due for next injection Rx Instructions: Goes every 3 Months for injection Eliquis 5 mg tablet 5 mg PO BID Qty: 60 12RF sertraline 100 mg tablet 150 mg PO DAILY Qty: 45 0RF (DME) suction catheter See Rx Instructions .Route .MEDSUPPLY Qty: 1 0RF Rx Instructions: Kishoruer suction catheter (or equivalent) equipement and disposable scopolamine base 1 mg over 3 days patch 3 day 1 patch topical Q3D (DME) BD Luer-Rafael Syringe 3 mL 20 gauge x 1 syringe See Rx Instructions .ROUTE .MEDSUPPLY Qty: 1 Patient Comments: USE FOR MUCOMYST Rx Instructions: As directed Referrals: Chucky Marshall MD [Primary Care Provider] - Stand Alone Forms: Patient Portal/API ED Sign-out <Norman Perrin DO - Last Filed: 10/15/23 07:01> Cosign ED Attending Cosignature Attestation: Dr Perrin Co-Sign Statement: I was available for consultation during this patient's emergency department visit. This chart is signed by myself for administrative purposes only. I did not have direct contact with this patient during this visit. They were seen independently by the APC.
[2023-10-14 14:46] VITALS: BP 93/63; PULSE 80; RESP 16; TEMP 36.8; O2SAT 95
[2023-10-14] MEDS: SILVER NITRATE STICK 2 EACH TOP (15:11)
== END 2023-10-14 15:45 | disposition home or self-care (01) ==
PROVIDERS: Emergency Provider Student in an Organized Health Care Education/Training Program; PCP Internal Medicine
DX: K94.29 Other complications of gastrostomy (principal)
CPT/HCPCS: 81003; 94799; 99282

== ENCOUNTER → 2024-01-18 16:43 | Outpatient (CLI) | payer MEDICAID, SELFPAY ==
[2023-04-04 11:09] VITALS: PULSE 89; RESP 16; O2SAT 100; BMI 23.0
[2024-01-18 17:20] LABS: Hematocrit 34.2 % (41-53); Hemoglobin 11.3 g/dL (13.5-17.5); Mean Corpuscular HGB Conc 32.9 % (30-36); Mean Corpuscular Hemoglobin 24.8 PG (26-34); Mean Corpuscular Volume 75.4 fL (80-100); Platelet Count 341 X10^3/uL (150-400); Red Blood Cell Count 4.54 X10^6/uL (4.5-5.9); Red Cell Distribution Width 16.2 % (11.6-14.8); White Blood Cell Count 4.2 X10^3/uL (4.5-11.0)
[2024-01-18 17:32] LABS: HEMOLYSIS 16 (0-50); Iron 62 ug/dL (49-181)
[2024-01-18 17:36] LABS: Alanine Aminotransferase 13 IU/L (<50); Albumin 4.2 g/dL (3.5-5.0); Albumin Globulin Ratio 1.2 (1.0-2.8); Alkaline Phosphatase 74 U/L (38-126); Aspartate Aminotransferase 27 IU/L (17-59); BUN Creatinine Ratio 44.1 (6-22); Bilirubin Total 0.4 mg/dL (0.2-1.3); Blood Urea Nitrogen 15 mg/dL (9-20); Carbon Dioxide 28 mmol/L (22-32); Chloride 98 mmol/L (98-107); Estimated Glomerular Filt Rate > 60 mL/min (>60); Globulin 3.6 g/dL (1.7-4.1); Glucose 77 mg/dL (70-100); HEMOLYSIS 18 (0-50); Potassium 4.4 mmol/L (3.4-5.1); Sodium 131 mmol/L (137-145); Total Protein 7.8 g/dL (6.3-8.2)
[2024-01-18 17:44] LABS: Percent Iron Saturation 20 % (20-50); Total Iron Binding Capacity 313 ug/dL (261-462); Transferrin 233 mg/dL (206-381)
[2024-01-18 18:09] LABS: Ferritin 127 ng/mL (18-464)
== END ==
PROVIDERS: PCP Internal Medicine; Referring Provider Internal Medicine; Visit Provider Internal Medicine
DX: E46 Unspecified protein-calorie malnutrition (principal); E87.1 Hypo-osmolality and hyponatremia; D64.9 Anemia, unspecified
CPT/HCPCS: 36415; 80053; 82728; 83540; 83550; 85027

== ENCOUNTER → 2024-02-29 10:41 | Outpatient (CLI) | payer MEDICAID, SELFPAY ==
[2023-04-04 11:09] VITALS: PULSE 89; RESP 16; O2SAT 100; BMI 23.0
--- NOTE | 2024-02-29 10:43 | DI.RAD.S_ITS ---
PROCEDURE: XR CHEST 2V INDICATIONS: fever,cough TECHNIQUE: 2 views of the chest were acquired. COMPARISON: [facility], , CHEST 2 VIEW, 07/06/2016, 13:37. FINDINGS: Surgical changes and devices: Tracheostomy tube tip is above the jessy. Lungs and pleura: Moderate left pleural effusion is seen with atelectasis of left lower lobe. Pulmonary vascular congestion and pulmonary edema is noted. No pneumothorax. Right lung is clear. Mediastinum: Mediastinal contours are normal. Heart size is enlarged. Bones and chest wall: No suspicious bony abnormalities. Soft tissues appear unremarkable. IMPRESSION: Moderate left pleural effusion and left lower lobe infiltrate versus atelectasis. No pneumothorax. Pulmonary vascular congestion and mild pulmonary edema. Dictated by: Jarocho Garzon M.D. on 02/29/2024 at 13:54 Approved by: Jarocho Garzon M.D. on 02/29/2024 at 13:55
[2024-02-29 12:21] LABS: Add Manual Diff / Slide Review NO; Basophils Absolute Auto 100 /uL (0-100); Basophils Percent Auto 1.1 % (0-2); Eosinophils Absolute Auto 200 /uL (0-450); Eosinophils Percent Auto 2.2 % (2-4); Hematocrit 33.3 % (41-53); Hemoglobin 10.8 g/dL (13.5-17.5); Lymphocytes Absolute Auto 1100 /uL (1100-4500); Lymphocytes Percent Auto 15.4 % (25-40); Mean Corpuscular HGB Conc 32.6 % (30-36); Mean Corpuscular Hemoglobin 24.7 PG (26-34); Mean Corpuscular Volume 75.8 fL (80-100); Monocytes Absolute Auto 600 /uL (0-900); Monocytes Percent Auto 9.3 % (3-14); Neutrophils Absolute Auto 5000 /uL (1500-7000); Platelet Count 358 X10^3/uL (150-400); Red Blood Cell Count 4.39 X10^6/uL (4.5-5.9); Red Cell Distribution Width 16.1 % (11.6-14.8)
[2024-02-29 12:43] LABS: Alanine Aminotransferase 23 IU/L (<50); Albumin 3.5 g/dL (3.5-5.0); Albumin Globulin Ratio 1.2 (1.0-2.8); Alkaline Phosphatase 82 U/L (38-126); Aspartate Aminotransferase 32 IU/L (17-59); BUN Creatinine Ratio 46.9 (6-22); Bilirubin Total 0.5 mg/dL (0.2-1.3); Blood Urea Nitrogen 15 mg/dL (9-20); Calcium 8.4 mg/dL (8.4-10.2); Carbon Dioxide 30 mmol/L (22-32); Chloride 99 mmol/L (98-107); Estimated Glomerular Filt Rate > 60 mL/min (>60); Globulin 2.9 g/dL (1.7-4.1); Glucose 85 mg/dL (70-100); HEMOLYSIS < 15 (0-50); Potassium 4.4 mmol/L (3.4-5.1); Sodium 132 mmol/L (137-145); Total Protein 6.4 g/dL (6.3-8.2)
[2024-02-29 12:48] LABS: Erythrocyte Sedimentation Rate 65 MM/HR (0-15)
[2024-02-29 13:01] LABS: C-Reactive Protein Quant 19.9 mg/dL (<1.0)
== END ==
PROVIDERS: PCP Internal Medicine; Referring Provider Internal Medicine; Visit Provider Internal Medicine
DX: J90 Pleural effusion, not elsewhere classified (principal); J81.1 Chronic pulmonary edema; R50.9 Fever, unspecified; R05.9 Cough, unspecified
CPT/HCPCS: 36415; 71046; 80053; 85025; 85651; 86140

== ENCOUNTER 2024-04-28 13:27 | Emergency (ER) | payer MEDICAID, SELFPAY ==
[2023-04-04 11:09] VITALS: PULSE 89; RESP 16; O2SAT 100; BMI 23.0
[2024-04-28] VITALS (11 sets, daily range): BP systolic 98–111; BP diastolic 64–72; PULSE 68–80; RESP 16–20; TEMP 36.4; O2SAT 94–97
--- NOTE | 2024-04-28 13:31 | ED.GENADULT ---
HPI - General Adult General Chief complaint: Shortness of Breath/Dyspnea Stated complaint: trach needing suctioning Time Seen by Provider: 04/28/24 13:31 Source: patient and EMS Mode of arrival: EMS History of Present Illness HPI narrative: Patient is a 43-year-old male. Has a trach. The trach has been in place for approximately 1 year. Gets frequent pneumonia. Has quite a bit of issues with secretions. This morning started to have secretions that he was unable to clear on his own. His mother contacted EMS. There was some suctioning by EMS prior to arrival with some improvement of symptoms. No fevers. He denies chest pain. Related Data Home Medications Medication Instructions Recorded Confirmed onabotulinumtoxinA 100 unit 200 unit IM ONCE 07/20/21 04/24/24 solution for injection (Botox) ferrous sulfate 325 mg (65 mg 130 mg PO DAILY 10/29/21 04/24/24 iron) tablet scopolamine base 1 mg over 3 days 1 patch topical Q3D 08/10/23 04/24/24 transdermal patch syringe with needle 3 mL 20 gauge #1 ea 08/10/23 04/24/24 x 1 (BD Luer-Rafael Syringe) Previous Rx's Medication Instructions Recorded Battery Powered Lift #1 ea 03/02/18 Power Chair #1 ea 10/16/18 Disabled Parking #1 ea 01/15/19 Shower Chair #1 ea 07/04/19 XL mattress for semi-electric #1 ea 09/27/22 hospital bed menthol 0.44 %-zinc oxide 20.6 % 1 applic topical QID PRN skin 09/27/22 topical ointment (Calmoseptine) irritation #113 grams baclofen 5 mg/5 mL oral solution 5 mg (5 mL) PO DAILY #473 mL 01/20/23 suction catheter #1 ea 04/06/23 apixaban 5 mg tablet (Eliquis) 5 mg PO BID #60 tabs 08/29/23 terbinafine HCl 250 mg tablet 250 mg PO DAILY #20 tabs 01/18/24 Mattress #1 ea 03/28/24 Semi-electric hospital bed #1 ea 03/28/24 sertraline 100 mg tablet 200 mg (2 x 100 mg) PO DAILY #60 04/24/24 tabs Allergies Allergy/AdvReac Type Severity Reaction Status Date / Time Penicillins [PENICILLINS] Allergy Severe RASH Verified 02/29/24 09:58 levofloxacin Allergy Intermediate Rash Verified 02/29/24 09:58 Review of Systems Constitutional Constitutional: Reports system reviewed and no additional complaints, except as documented ENT Ears, Nose, Mouth, and Throat: Reports system reviewed and no additional complaints, except as documented Cardiovascular Cardiovascular: Reports system reviewed and no additional complaints, except as documented Respiratory Respiratory: Reports system reviewed and no additional complaints, except as documented Integumentary/Breasts Skin/Breast: Reports system reviewed and no additional complaints, except as documented Neurologic Neurologic: Reports system reviewed and no additional complaints, except as documented Patient History Medical History History of pulmonary embolism Status post radiation therapy Chronic anticoagulation Tracheostomy in place Sacral decubitus ulcer, stage III Protein calorie malnutrition Hyponatremia Dysphagia Recurrent aspiration pneumonia Depression, major, recurrent Jejunostomy tube present Influenza A Anemia Pneumonia 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 Father No problems noted. Social History marital status: unmarried,single details: Lives independantly with part-time caregivers household members: none lives independently: Yes occupational status: disabled Smoking Status: Former smoker alcohol intake: never substance use type: marijuana Smoking Status: Former smoker alcohol intake frequency: 0-2 drinks per day Substance Use Type: marijuana Exam Initial Vital Signs Initial Vital Signs: Vital Signs Pulse Rate 76 04/28/24 13:25 Respiratory Rate 18 04/28/24 13:25 Blood Pressure 111/70 04/28/24 13:25 Pulse Oximetry 96 04/28/24 13:25 Neck Other: Trach in place anterior neck without signs of bleeding. Resp Effort & Inspection: cough Auscultation: rhonchi Cardio Rate: regular rate Course Orders Ordered: ED Orders 04/28/24 13:36 RT Consult Eval and Treat NOW Tracheostomy Assessment RT PROTOCOL 04/28/24 14:06 XR chest 1V Stat 04/28/24 15:15 Sputum Culture Stat Vital Signs Vital signs: Vital Signs - 8 hr 04/28/24 13:25 04/28/24 13:27 04/28/24 13:30 Temperature 97.5 F L Pulse Rate 76 77 76 Respiratory Rate 18 20 20 Blood Pressure 111/70 111/70 105/67 Pulse Oximetry 96 96 94 Oxygen Delivery Method Room Air Room Air Oxygen Flow Rate Fraction of Inspired Oxygen 04/28/24 14:00 04/28/24 14:00 04/28/24 14:11 Temperature Pulse Rate 80 75 Respiratory Rate 20 Blood Pressure 111/72 Pulse Oximetry 95 96 Oxygen Delivery Method Room Air Oxygen Flow Rate 0 Fraction of Inspired Oxygen 21 04/28/24 14:30 04/28/24 14:30 04/28/24 15:00 Temperature Pulse Rate 74 Respiratory Rate Blood Pressure 105/67 98/64 Pulse Oximetry 97 Oxygen Delivery Method Oxygen Flow Rate Fraction of Inspired Oxygen 04/28/24 15:00 04/28/24 15:18 04/28/24 15:30 Temperature Pulse Rate 69 69 Respiratory Rate 16 Blood Pressure Pulse Oximetry 96 97 97 Oxygen Delivery Method Oxygen Flow Rate Fraction of Inspired Oxygen 04/28/24 15:30 04/28/24 16:00 04/28/24 16:00 Temperature Pulse Rate 68 Respiratory Rate 20 Blood Pressure 102/70 99/67 Pulse Oximetry 96 Oxygen Delivery Method Oxygen Flow Rate Fraction of Inspired Oxygen 04/28/24 16:33 Temperature Pulse Rate 70 Respiratory Rate 16 Blood Pressure 99/67 Pulse Oximetry 96 Oxygen Delivery Method Room Air Oxygen Flow Rate Fraction of Inspired Oxygen Medical Decision Making Imaging Data Chest x-ray: Radiologist's Impression: PROCEDURE: XR CHEST 1V INDICATIONS: Trach patient with thick secretions eval for pneumonia TECHNIQUE: One view of the chest was acquired. COMPARISON: [facility], CR, XR CHEST 2V, 02/29/2024, 10:43. [facility], CR, XR CHEST 1V, 05/18/2023, 9:49. FINDINGS: Surgical changes and devices: A tracheostomy is in place.. Lungs and pleura: There is patchy airspace opacity within the left upper lobe. The right lung is clear. Mediastinum: Mediastinal contours appear normal. Heart size is normal. Bones and chest wall: No suspicious bony lesions. Overlying soft tissues appear unremarkable. IMPRESSION: Findings concerning for left upper lobe pneumonia. MDM Narrative Medical decision making narrative: After multiple attempts of suctioning here in the emergency department the patient reports improvement of symptoms. He states he was back to normal. Chest x-ray is somewhat concerning for left upper lobe pneumonia however clinically he does not have pneumonia. After suctioning his lungs are clear and he was afebrile and he was not tachycardic. I discuss this with the mother. We did obtain a sputum culture. We will wait for the culture to result before treating him with any antibiotics because he was frequently on antibiotics for pneumonia. Mother was in agreement with this. Patient stated that he felt comfortable going home without he was breathing. Will discharge home with return precautions. Discharge Plan Departure Patient Disposition: Home Clinical Impression: Increased tracheal secretions Activity Restrictions/Additional Instructions: There was a sputum culture pending at the time of his discharge. We will wait for the results of this before treating with antibiotics. You can continue to take all his medications as directed. Return to the emergency department for new or worsening symptoms. Prescriptions: No Action Calmoseptine 0.44-20.6 % ointment 1 applic TOP QID PRN (Reason: skin irritation) Qty: 113 0RF (DME) XL mattress for semi-electric hospital bed See Rx Instructions .Route .MEDSUPPLY Qty: 1 0RF Rx Instructions: use daily as directed (DME) Disabled Parking Qty: 1 0RF Rx Instructions: I find this patient to be medically disabled and qualified for Disabled Parking as indicated, and signed, on the Accompanying Disabled Parking Application for Individuals ferrous sulfate 325 mg (65 mg iron) tablet 130 mg PO DAILY Hold Instructions: on J tube baclofen 5 mg/5 mL solution 5 mg PO DAILY Qty: 473 3RF Rx Instructions: Give 5mL via J-tube (DME) Battery Powered Lift Qty: 1 0RF Dose Instruction: As directed Rx Instructions: Use daily as directed for transfers to and from bed (DME) Power Chair tall Qty: 1 0RF Dose Instruction: As directed Rx Instructions: As directed for patient care with activities of daily living. Chair needs to tilt foreword and tilt backwards for patient care. Pt is 6 feet tall and will need to fit height. (DME) Shower Chair Qty: 1 0RF Rx Instructions: As directed for patient care with activities of daily living. Chair needs to tilt foreword and tilt backwards for patient care. Pt is 6 feet tall and will need to fit height. Botox 100 unit recon soln 200 unit IM ONCE Patient Comments: Mother of patient believes he is due for next injection Rx Instructions: Goes every 3 Months for injection Eliquis 5 mg tablet 5 mg PO BID Qty: 60 12RF (DME) Semi-electric hospital bed Qty: 1 0RF Dose Instruction: As directed Rx Instructions: Semi-electric hospital bed to permit transfers to wheelchair and to attach traction equipment. Must be large enough and long enough to accommodate his height and weight. EDEN: 99 months (DME) Mattress See Rx Instructions .Route .MEDSUPPLY Qty: 1 0RF Rx Instructions: Long mattress for hospital bed (DME) suction catheter See Rx Instructions .Route .MEDSUPPLY Qty: 1 0RF Rx Instructions: Yankauer suction catheter (or equivalent) equipement and disposable scopolamine base 1 mg over 3 days patch 3 day 1 patch topical Q3D (DME) BD Luer-Rafael Syringe 3 mL 20 gauge x 1 syringe See Rx Instructions .ROUTE .MEDSUPPLY Qty: 1 Patient Comments: USE FOR MUCOMYST Rx Instructions: As directed terbinafine HCl 250 mg tablet 250 mg PO DAILY Qty: 20 2RF sertraline 100 mg tablet 200 mg PO DAILY Qty: 60 5RF Referrals: Chucky Marshall MD [Primary Care Provider] - Stand Alone Forms: Patient Portal/API
--- NOTE | 2024-04-28 14:06 | DI.RAD.S_ITS ---
PROCEDURE: XR CHEST 1V INDICATIONS: Trach patient with thick secretions eval for pneumonia TECHNIQUE: One view of the chest was acquired. COMPARISON: [facility], CR, XR CHEST 2V, 02/29/2024, 10:43. [facility], CR, XR CHEST 1V, 05/18/2023, 9:49. FINDINGS: Surgical changes and devices: A tracheostomy is in place.. Lungs and pleura: There is patchy airspace opacity within the left upper lobe. The right lung is clear. Mediastinum: Mediastinal contours appear normal. Heart size is normal. Bones and chest wall: No suspicious bony lesions. Overlying soft tissues appear unremarkable. IMPRESSION: Findings concerning for left upper lobe pneumonia. Dictated by: Izabela Severino M.D. on 04/28/2024 at 14:03 Approved by: Izabela Severino M.D. on 04/28/2024 at 14:04
--- NOTE | 2024-04-28 14:06 | PC.NURSE ---
Trach care and suctioning performed by RT. Clear breath sounds anteriorly bilaterally. Pt denies O2 issues at home. Afebrile. Pt states he feels almost normal after suctioning by RT @ 1406
== END 2024-04-28 16:34 | disposition home or self-care (01) ==
PROVIDERS: Emergency Provider Emergency Medicine; PCP Internal Medicine
DX: J39.8 Other specified diseases of upper respiratory tract (principal); Z93.0 Tracheostomy status; A49.02 Methicillin resistant Staphylococcus aureus infection, unspecified site
CPT/HCPCS: 71045; 87070; 87077; 87147; 87186; 87205; 94640; 99283

== ENCOUNTER → 2024-06-29 12:28 | Outpatient (CLI) | payer MEDICAID, SELFPAY ==
[2023-04-04 11:09] VITALS: PULSE 89; RESP 16; O2SAT 100; BMI 23.0
--- NOTE | 2024-06-29 12:30 | DI.RAD.S_ITS ---
PROCEDURE: XR KUB INDICATIONS: Check PEG tube TECHNIQUE: One view of the abdomen acquired. COMPARISON: None. FINDINGS: Surgical changes and devices: Percutaneous tube projects over the right hemiabdomen. Bowel: Bowel gas pattern is normal. Soft tissues: No suspicious abdominal calcifications. Visualized solid organ contours appear normal in size. Bones: No suspicious bony lesions. IMPRESSION: Percutaneous tube projects over the right hemiabdomen. Consider contrast injection and repeat imaging x-ray to assess positioning Approved by: Doug Alejandra M.D. on 06/29/2024 at 12:05
== END ==
PROVIDERS: PCP Internal Medicine; Referring Provider Internal Medicine; Visit Provider Internal Medicine
DX: K94.23 Gastrostomy malfunction (principal)
CPT/HCPCS: 74018

== ENCOUNTER → 2024-07-11 10:45 | Outpatient (CLI) | payer MEDICAID, SELFPAY ==
[2023-04-04 11:09] VITALS: PULSE 89; RESP 16; O2SAT 100; BMI 23.0
--- NOTE | 2024-07-11 10:46 | DI.RAD.S_ITS ---
PROCEDURE: FL FLUOROSCOPY >1HR COMPARISON: None. INDICATIONS: eval PEG placement FINDINGS: Real-time fluoroscopy with administration of Gastrografin contrast through the percutaneous enteric gastrostomy tube was performed. Multiple fluoroscopic images with administration of contrast demonstrate opacification of the distal stomach followed by the small bowel. IMPRESSION: Percutaneous enteric gastrostomy tube in expected position. Dictated by: Jack Henderson M.D. on 07/11/2024 at 16:10 Approved by: Jack Henderson M.D. on 07/11/2024 at 16:35
== END ==
LOC: RAD 10:45
PROVIDERS: PCP Internal Medicine; Referring Provider Internal Medicine; Visit Provider Internal Medicine
DX: K94.20 Gastrostomy complication, unspecified (principal)
CPT/HCPCS: 76000

== ENCOUNTER 2024-07-13 03:03 | Inpatient (IN) | payer MEDICAID, OTHER, SELFPAY ==
[2023-04-04 11:09] VITALS: PULSE 89; RESP 16; O2SAT 100; BMI 23.0
[2024-07-13] VITALS (45 sets, daily range): BP systolic 95–105; BP diastolic 52–70; PULSE 75–95; RESP 16–31; TEMP 36.2–37.3; O2SAT 85–99; BMI 23.0
--- NOTE | 2024-07-13 03:03 | EKG_ITS ---
[facility] [address] [place] [id number] Test Date: 2024-07-13 Pat Name: Jonnie Christopher Department: [facility] Room: Gender: Male Supervisor Winter: : 1980 Requested By: Order Number: [id number] Reading MD: Joshua Saunders Measurements Intervals [place] Rate: 95 P: 82 NE: 126 QRS: 83 QRSD: 82 T: 80 QT: 362 QTc: 454 Interpretive Statements Normal sinus rhythm Nonspecific T wave abnormality Electronically Signed On 07-13-2024 9:06:51 PDT by Joshua Saunders
--- NOTE | 2024-07-13 03:03 | DI.RAD.S_ITS ---
PROCEDURE: XR CHEST 1V INDICATIONS: chest pain TECHNIQUE: One view of the chest was acquired. COMPARISON: [facility], CR, XR CHEST 1V, 04/28/2024, 14:26. FINDINGS: Surgical changes and devices: Tracheostomy tube tip is above the jessy. Lungs and pleura: Hazy opacity throughout left hemithorax with near complete opacification of left hemithorax. Right lung is clear. No gross pneumothorax. Mediastinum: Mediastinal shift to the left is seen. Heart size is enlarged Bones and chest wall: No suspicious bony lesions. Overlying soft tissues appear unremarkable. IMPRESSION: Suggestion of moderate left pleural effusion and extensive left lung infiltrates. No gross pneumothorax. No significant discrepancies from preliminary reading. Dictated by: Jarocho Garzon M.D. on 07/13/2024 at 8:32 Approved by: Jarocho Garzon M.D. on 07/13/2024 at 8:33
--- NOTE | 2024-07-13 03:04 | ED.GENADULT ---
HPI - General Adult General Chief complaint: Shortness of Breath/Dyspnea Stated complaint: resp. distress Time Seen by Provider: 07/13/24 03:05 History of Present Illness HPI narrative: 44-year-old male with history of pseudobulbar palsy, spastic left hemiparesis, tracheostomy, feeding tube, history of aspiration pneumonia, had difficulty breathing and had called 911, found to have saturation oxygen 80%, had suctioning of his tracheostomy site, with improved saturation and improvement in his breathing. Arrival by EMS. Related Data Home Medications Medication Instructions Recorded Confirmed onabotulinumtoxinA 100 unit 200 unit IM ONCE 07/20/21 05/09/24 solution for injection (Botox) ferrous sulfate 325 mg (65 mg 130 mg PO DAILY 10/29/21 05/09/24 iron) tablet scopolamine base 1 mg over 3 days 1 patch topical Q3D 08/10/23 05/09/24 transdermal patch syringe with needle 3 mL 20 gauge #1 08/10/23 05/09/24 x 1 (BD Luer-Rafael Syringe) Previous Rx's Medication Instructions Recorded Battery Powered Lift #1 03/02/18 Power Chair #1 10/16/18 Disabled Parking #1 01/15/19 Shower Chair #1 07/04/19 XL mattress for semi-electric #1 ea 09/27/22 hospital bed menthol 0.44 %-zinc oxide 20.6 % 1 applic topical QID PRN skin 09/27/22 topical ointment (Calmoseptine) irritation #113 grams baclofen 5 mg/5 mL oral solution 5 mg (5 mL) PO DAILY #473 mL 01/20/23 suction catheter #1 ea 04/06/23 apixaban 5 mg tablet (Eliquis) 5 mg PO BID #60 tabs 08/29/23 terbinafine HCl 250 mg tablet 250 mg PO DAILY #20 tabs 01/18/24 Mattress #1 ea 03/28/24 Semi-electric hospital bed #1 ea 03/28/24 sertraline 100 mg tablet 200 mg (2 x 100 mg) PO DAILY #60 04/24/24 tabs cefdinir 300 mg capsule 300 mg PO Q12H #20 caps 05/01/24 doxycycline hyclate 100 mg capsule 100 mg PO BID #20 caps 05/01/24 Allergies Allergy/AdvReac Type Severity Reaction Status Date / Time Penicillins [PENICILLINS] Allergy Severe RASH Verified 05/09/24 11:54 levofloxacin Allergy Intermediate Rash Verified 05/09/24 11:54 Review of Systems Review of Systems Narrative: See HPI Patient History Medical History History of pulmonary embolism Status post radiation therapy Chronic anticoagulation Tracheostomy in place Sacral decubitus ulcer, stage III Protein calorie malnutrition Hyponatremia Dysphagia Recurrent aspiration pneumonia Depression, major, recurrent Jejunostomy tube present Influenza A Anemia Pneumonia 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 Father No problems noted. Social History marital status: unmarried,single details: Lives independantly with part-time caregivers household members: none lives independently: Yes occupational status: disabled Smoking Status: Former smoker alcohol intake: never substance use type: marijuana Smoking Status: Former smoker alcohol intake frequency: 0-2 drinks per day Substance Use Type: marijuana Exam Narrative Exam Narrative: GENERAL: Well-developed patient, in mild distress. HEAD: Atraumatic. Normocephalic. EYES: Pupils equal round and reactive. Extraocular motions intact. No scleral icterus. No injection or drainage. ENT: Nose without bleeding, purulent drainage. Throat without erythema, tonsillar hypertrophy or exudate. Airway patent. NECK: Trachea midline. Non tender. Tracheostomy site, tube in place. CARDIOVASCULAR: Regular rate and rhythm without murmurs, gallops, or rubs. RESPIRATORY: Diminished breath sounds left-sided, with basilar left-sided crackles. No suprasternal or intercostal retractions. No obvious trauma bruising or flail segment paradoxical movements. No subcutaneous air. No rashes/vesicles. GASTROINTESTINAL: Abdomen soft, non-tender, nondistended. Feeding tube in place, site without erythema or discharge. EXTREMITIES: No edema or joint tenderness. BACK: Nontender without deformity or crepitance. No flank tenderness. NEURO. Looking around, no obvious facial droop, not able to move his left arm or leg, history of spastic hemiparesis per chart noted SKIN: No rash or erythema of visible areas Initial Vital Signs Initial Vital Signs: Vital Signs Temperature 97.2 F L 07/13/24 03:03 Pulse Rate 94 H 07/13/24 03:03 Respiratory Rate 16 07/13/24 03:03 Pulse Oximetry 95 07/13/24 03:03 Oxygen Delivery Method Room Air 07/13/24 03:03 Course Orders Ordered: ED Orders 07/13/24 02:45 Complete Blood Count AUTO DIFF Stat Comprehensive Metabolic Panel Stat Lactate (Lactic Acid) Stat Lipase Stat Troponin & CK Cardiac Panel Stat 07/13/24 03:03 XR chest 1V Stat EKG-12 Lead Stat 07/13/24 03:12 Sputum Culture Stat 07/13/24 03:15 Respiratory Panel (Film Array) Stat 07/13/24 03:40 CT angio chest PE protocol Stat 07/13/24 03:50 Blood Culture Stat Vancomycin HCl/Dextrose (Vancomycin) 2,000 mg in 400 mls @ 200 mls/hr IV NOW ONE Stop: 07/13/24 06:29 Last Admin: 07/13/24 04:37 Dose: 200 mls/hr Sodium Chloride (Normal Saline 0.9%) 1,000 mls @ 500 mls/hr IV BOLUS ONE Stop: 07/13/24 07:00 Last Admin: 07/13/24 05:26 Dose: 500 mls/hr Discontinued Medications Albuterol (Albuterol 2.5 Mg/3 Ml Neb (Adult)) 2.5 mg INH NOW ONE Stop: 07/13/24 03:15 Last Admin: 07/13/24 03:28 Dose: 2.5 mg Azithromycin (Azithromycin 250 Mg Tablet) 500 mg PO NOW ONE Stop: 07/13/24 05:21 Last Admin: 07/13/24 05:26 Dose: Not Given Cefepime HCl 2 gm/ Sodium (Chloride) 100 mls @ 200 mls/hr IV NOW ONE Stop: 07/13/24 03:16 Last Infusion: 07/13/24 04:39 Dose: Infused Vancomycin HCl 1,750 mg/ (Sodium Chloride) 500 mls @ 250 mls/hr IV NOW ONE Stop: 07/13/24 03:17 Last Admin: 07/13/24 04:50 Dose: Not Given Vital Signs Vital signs: Vital Signs - 8 hr 07/13/24 03:03 07/13/24 03:32 Temperature 97.2 F L Pulse Rate 94 H Respiratory Rate 16 Pulse Oximetry 95 96 Oxygen Delivery Method Room Air Room Air Fraction of Inspired Oxygen 21 Medical Decision Making Lab Data Lab results reviewed: Yes I reviewed the patient's lab results. Lab results narrative: White blood cell count 7300, hemoglobin 10.4, platelets [id number]. Sodium 127 low with glucose 86 noted. Potassium 4.4 normal. BUN and creatinine normal. Serum CO2 28. Liver functions normal. Lactate 0.6 normal. 07/13/24 02:45 07/13/24 02:45 Labs: Lab Results 07/13/24 07/13/24 Range/Units 02:45 03:15 WBC 7.3 (4.5-11.0) X10^3/uL RBC 4.35 L (4.5-5.9) X10^6/uL Hgb 10.4 L (13.5-17.5) g/dL Hct 32.2 L (41-53) % MCV 74.1 L (80-100) fL MCH 23.9 L (26-34) PG MCHC 32.3 (30-36) % RDW 16.4 H (11.6-14.8) % Plt Count 437 H (150-400) X10^3/uL Neut % (Auto) 76.6 H (50-75) % Lymph % (Auto) 13.5 L (25-40) % [place] % (Auto) 8.1 (3-14) % Eos % (Auto) 0.7 L (2-4) % Baso % (Auto) 1.1 (0-2) % Neut # (Auto) 5600 (6095-1877) /uL Lymph # (Auto) 1000 L (3703-0993) /uL [place] # (Auto) 600 (0-900) /uL Eos # (Auto) 100 (0-450) /uL Baso # (Auto) 100 (0-100) /uL Sodium 127 L (137-145) mmol/L Potassium 4.4 (3.4-5.1) mmol/L Chloride 96 L (98-107) mmol/L Carbon Dioxide 28 (22-32) mmol/L BUN 13 (9-20) mg/dL Creatinine 0.25 L (0.66-1.25) mg/dL Estimated GFR > 60 (>60) mL/min BUN/Creatinine Ratio 52.0 H (6-22) Glucose 86 (70-100) mg/dL Lactate 0.6 L (0.7-2.1) mmol/L Calcium 8.3 L (8.4-10.2) mg/dL Total Bilirubin 0.3 (0.2-1.3) mg/dL AST 19 (17-59) IU/L ALT 9 (<50) IU/L Alkaline Phosphatase 85 (38-126) U/L Total Creatine Kinase 32 L (55-170) U/L Troponin I < 0.012 (0.01-0.034) ng/mL Total Protein 7.0 (6.3-8.2) g/dL Albumin 3.3 L (3.5-5.0) g/dL Globulin 3.7 (1.7-4.1) g/dL Albumin/Globulin Ratio 0.9 L (1.0-2.8) Lipase 59 (23-300) U/L Chlamy pneumoniae PCR Not detected (Not Detect) Adenovirus (PCR) Not detected (Not Detect) B. pertussis DNA (PCR) Not detected (Not Detect) B.parapertussis DNA PCR Not detected (Not Detecte) Coronavirus OC43 (PCR) Not detected (Not Detect) Coronavirus HKU1 (PCR) Not detected (Not Detect) Coronavirus 229E (PCR) Not detected (Not Detect) SARS-CoV-2 (PCR) Not detected (Not Detecte) Coronavirus NL63 (PCR) Not detected (Not Detect) Human Metapneumovir PCR Not detected (Not Detect) Influenza Type A (PCR) Not detected (Not Detect) Influenza Type B (PCR) Not detected (Not Detect) M. pneumoniae (PCR) Not detected (Not Detect) Parainfluenza 1 (PCR) Not detected (Not Detect) Parainfluenza 2 (PCR) Not detected (Not Detect) Parainfluenza 3 (PCR) Not detected (Not Detect) Parainfluenza 4 (PCR) Not detected (Not Detect) RSV (PCR) Not detected (Not Detect) Entero/Rhino (PCR) Detected H (Not Detect) ECG Data Attestation: I personally reviewed and interpreted this ECG as follows: Interpretation: Normal sinus rhythm with rate of 95, no obvious ST segment elevation or depression changes. MD 126, QRS 82, QTC 454. MDM Narrative Medical decision making narrative: 44-year-old male with history of cerebral palsy, spastic left hemiparesis, prior aspiration pneumonia, tracheostomy, feeding tube, history of pulmonary embolism on Eliquis anticoagulation, with trouble breathing tonight in respiratory distress, EMS suctioned his tracheostomy tube, improved saturation, off oxygen on arrival to ED. Diminished breath sounds left side with some crackles. Screening chest x-ray shows marked infiltrates left-sided my view, no pneumothorax. Blood culture sent, IV cefepime, IV vancomycin. Respiratory panel requested. Will give SVN Albuterol, get sputum aspirate for Gram stain and culture. Consider MRSA, consider Pseudomonas. Chest x-ray. Impressions: ?Left upper and left lower lobe pulmonary infiltrates and probable left pleural effusion. Follow up chest radiograph after appropriate treatment to document resolution. Tracheostomy tube present.? See teleradiology report No pulmonary/bronchoscopy services here, will image chest further to look for endobronchial lesion/debris, or obstructing mass. History of pulmonary emboli noted, prescribed Eliquis. Will do CT angio chest study for anatomic delineation, though pulmonary embolism less likely. GFR favorable. Respiratory panel positive for rhinovirus, negative for other pathogens tested. CT chest report still pending CTA chest with IV contrast. Impression: ?No pulmonary embolism, aneurysm or aortic dissection. Multi focal left pulmonary infiltrates with volume loss and small left pleural effusion. Recommend [address] after appropriate treatment to ensure complete resolution. Nodularity of the thyroid gland. Recommend thyroid ultrasound.. See tele radiology report No endobronchial lesions/debris, nor extrinsic or endobronchial masses described that might require emergent bronchoscopy. Consider admission here. Will contact hospitalist [id number], case discussed with hospitalist Dr. Alanis who accepts patient for admission Critical Care Time Critical Care Time Total Critical Care Time: 35 Attestation: The high probability of a clinically significant, sudden or life threatening deterioration of the [pulmonary] system(s) required my full and direct attention, intervention and personal management, suctioning, sending sputum studies, review of labs and multiple imaging lungs studies, starting multiple parenteral antibiotics for treatment of large pneumonia burden. The aggregate critical care time was [35] minutes. This time is in addition to time spent performing reported procedures but includes the following: [x] Data Review and interpretation [x] Patient assessment and monitoring of vital signs [x] Documentation [x] Medication orders and management Discharge Plan Departure Patient Disposition: Admitted As Inpatient Clinical Impression: Pneumonia, History of tracheostomy, Acute dyspnea, History of cerebral palsy, Hyponatremia, Rhinovirus infection Admit Date/Time: 07/13/24 05:34 Admit Provider: Renan Glynn
[2024-07-13 03:19] LABS: Add Manual Diff / Slide Review NO; Basophils Absolute Auto 100 /uL (0-100); Basophils Percent Auto 1.1 % (0-2); Eosinophils Absolute Auto 100 /uL (0-450); Eosinophils Percent Auto 0.7 % (2-4); Hematocrit 32.2 % (41-53); Hemoglobin 10.4 g/dL (13.5-17.5); Lymphocytes Absolute Auto 1000 /uL (1100-4500); Lymphocytes Percent Auto 13.5 % (25-40); Mean Corpuscular HGB Conc 32.3 % (30-36); Mean Corpuscular Hemoglobin 23.9 PG (26-34); Mean Corpuscular Volume 74.1 fL (80-100); Monocytes Absolute Auto 600 /uL (0-900); Monocytes Percent Auto 8.1 % (3-14); Neutrophils Absolute Auto 5600 /uL (1500-7000); Neutrophils Percent Auto 76.6 % (50-75); Platelet Count 437 X10^3/uL (150-400); Red Blood Cell Count 4.35 X10^6/uL (4.5-5.9); Red Cell Distribution Width 16.4 % (11.6-14.8); White Blood Cell Count 7.3 X10^3/uL (4.5-11.0)
[2024-07-13 03:28] LABS: Alanine Aminotransferase 9 IU/L (<50); Albumin 3.3 g/dL (3.5-5.0); Albumin Globulin Ratio 0.9 (1.0-2.8); Alkaline Phosphatase 85 U/L (38-126); Aspartate Aminotransferase 19 IU/L (17-59); Bilirubin Total 0.3 mg/dL (0.2-1.3); Blood Urea Nitrogen 13 mg/dL (9-20); Calcium 8.3 mg/dL (8.4-10.2); Carbon Dioxide 28 mmol/L (22-32); Chloride 96 mmol/L (98-107); Creatine Kinase 32 U/L (55-170); Estimated Glomerular Filt Rate > 60 mL/min (>60); Globulin 3.7 g/dL (1.7-4.1); Glucose 86 mg/dL (70-100); HEMOLYSIS 16 (0-50); Lipase 59 U/L (23-300); Potassium 4.4 mmol/L (3.4-5.1); Sodium 127 mmol/L (137-145)
[2024-07-13] MEDS: ALBUTEROL 2.5 MG/3 ML NEB (ADULT) INH (03:28)
[2024-07-13 03:29] LABS: Lactate (Lactic Acid) 0.6 mmol/L (0.7-2.1)
--- NOTE | 2024-07-13 03:38 | PC.NURSE ---
Pt arrives to ER, Brief is soaked in urine. Changed brief and cleaned sherwin area. Mouth is full of mucus. Oral care done. Sheets and bedding from home removed from under pt. Pillows placed to get pt off of buttocks.
[2024-07-13 03:40] LABS: Troponin I < 0.012 ng/mL (0.01-0.034)
--- NOTE | 2024-07-13 03:40 | DI.CT.S_ITS ---
PROCEDURE: CT ANGIO CHEST PE PROTOCOL INDICATIONS: infiltrates left sided, hx PE, resp distress TECHNIQUE: After the administration of intravenous contrast, 2 mm thick sections acquired from the pulmonary apices to the posterior costophrenic angles. 3-dimensional maximum intensity projection (MIP) coronal and sagittal reformats were then acquired through the thorax. For radiation dose reduction, the following was used: automated exposure control, adjustment of mA and/or kV according to patient size. COMPARISON: [facility], CT, CT ANGIO CHEST PE PROTOCOL, 03/23/2023, 22:18. FINDINGS: Image quality: Diagnostic. Pulmonary arteries: Pulmonary arteries are normal in size, and demonstrate no intraluminal filling defects to suggest central pulmonary embolism. Lower Neck: No enlarged lymph nodes. Tracheostomy in place. Thyroid: No thyroid nodules which require sonographic follow up, per consensus guidelines. Axillae: No enlarged lymph nodes. Chest Wall: Unremarkable. Bones: Unremarkable. Lungs and Pleura: Trace left pleural effusion. Consolidative opacities encompassing almost the entirety of the left lung. There is significant volume loss within the left lung. Trace right pleural effusion. Heart: Heart size is normal. No pericardial effusion. Thoracic Vessels: No aortic aneurysm. Mediastinum and Aniya: Mediastinum is shifted to the left. No enlarged lymph nodes. Esophagus: No wall thickening. No hiatal hernia. Upper Abdomen: Visualized upper abdomen solid organs and bowel loops appear normal. IMPRESSION: No pulmonary embolus. Consolidative opacities involving almost the entirety of the left lung parenchyma with significant volume loss of the left lung and mediastinal shift to the left. Trace bilateral pleural effusions. Findings are most consistent with infection. Recommend three-month follow-up chest CT after appropriate treatment to ensure resolution. Findings are concordant with preliminary interpretation provided by [facility]. Dictated by: Vamshi Richardson M.D. on 07/13/2024 at 8:18 Approved by: Vamshi Richardson M.D. on 07/13/2024 at 8:26
[2024-07-13] MEDS: CEFEPIME 2 GM in SODIUM CHLORIDE 0.9% 100 ML IV (04:05)
[2024-07-13 04:33] LABS: Adenovirus Not Detected (Not Detect); B. parapertussis Not Detected (Not Detecte); Bordetella pertussis Not Detected (Not Detect); Chlamydophila pneumoniae Not Detected (Not Detect); Coronavirus 229E Not Detected (Not Detect); Coronavirus HKU1 Not Detected (Not Detect); Coronavirus NL 63 Not Detected (Not Detect); Coronavirus OC43 Not Detected (Not Detect); Human Metapneumovirus Not Detected (Not Detect); Human Rhinovirus/Enterovirus Detected (Not Detect); Influenza A Not Detected (Not Detect); Influenza B Not Detected (Not Detect); Mycoplasma pneumoniae Not Detected (Not Detect); Parainfluenza Virus 1 Not Detected (Not Detect); Parainfluenza Virus 2 Not Detected (Not Detect); Parainfluenza Virus 3 Not Detected (Not Detect); Parainfluenza Virus 4 Not Detected (Not Detect); Respiratory Syncytial Virus Not Detected (Not Detect); SARS- CoV-2 Not Detected (Not Detecte)
[2024-07-13] MEDS: VANCOMYCIN 2,000 MG/400 ML PIGGYBACK 200 MG IV (04:37)
[2024-07-13] MEDS: SODIUM CHLORIDE 0.9% 1,000 ML 500 ML IV (05:26)
--- NOTE | 2024-07-13 06:13 | PM.HP.1 ---
History of Present Illness History of Present Illness Date Patient Seen: 07/13/24 Time Patient Seen: 06:45 Chief complaint: resp. distress Narrative: 44 y/o with PMH of cerebral palsy, impaired mobility and spastic hemiparesis, dysphagia, tracheostomy, PEG, wheelchair-dependent, lives alone with caregiver visits, who presented today with shortness of breath, hypoxemic with completeley opacified Lt lung on CXR and CT. Without evidence of mucous plugging or endobronchial mass. Apart from significant hypoxemia at rest, he has no fever, chills, leukocytosis. Borderline hypotensive, not tachycardic. For possible aspiration PNA he was covered broadly and admitted on electronic device monitor. 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 Father No problems noted. Social History marital status: unmarried,single details: Lives independantly with part-time caregivers household members: none lives independently: Yes occupational status: disabled Smoking Status: Former smoker alcohol intake: never substance use type: marijuana Meds Home Medications and Allergies Home Medications Medication Instructions Recorded Confirmed Type Battery Powered Lift #1 ea 03/02/18 05/09/24 Rx Power Chair #1 ea 10/16/18 05/09/24 Rx Disabled Parking #1 ea 01/15/19 05/09/24 Rx Shower Chair #1 ea 07/04/19 05/09/24 Rx onabotulinumtoxinA 100 unit 200 unit IM ONCE 07/20/21 05/09/24 History solution for injection (Botox) ferrous sulfate 325 mg (65 mg 130 mg PO DAILY 10/29/21 05/09/24 History iron) tablet XL mattress for semi-electric #1 ea 09/27/22 05/09/24 Rx hospital bed menthol 0.44 %-zinc oxide 20.6 % 1 applic topical QID PRN skin 09/27/22 05/09/24 Rx topical ointment (Calmoseptine) irritation #113 grams baclofen 5 mg/5 mL oral solution 5 mg (5 mL) PO DAILY #473 mL 01/20/23 05/09/24 Rx suction catheter #1 ea 04/06/23 05/09/24 Rx scopolamine base 1 mg over 3 days 1 patch topical Q3D 08/10/23 05/09/24 History transdermal patch syringe with needle 3 mL 20 gauge #1 ea 08/10/23 05/09/24 History x 1 (BD Luer-Rafael Syringe) apixaban 5 mg tablet (Eliquis) 5 mg PO BID #60 tabs 08/29/23 05/09/24 Rx terbinafine HCl 250 mg tablet 250 mg PO DAILY #20 tabs 01/18/24 05/09/24 Rx Mattress #1 ea 03/28/24 05/09/24 Rx Semi-electric hospital bed #1 ea 03/28/24 05/09/24 Rx sertraline 100 mg tablet 200 mg (2 x 100 mg) PO DAILY #60 04/24/24 05/09/24 Rx tabs cefdinir 300 mg capsule 300 mg PO Q12H #20 caps 05/01/24 05/09/24 Rx doxycycline hyclate 100 mg capsule 100 mg PO BID #20 caps 05/01/24 05/09/24 Rx Allergies Allergy/AdvReac Type Severity Reaction Status Date / Time Penicillins [PENICILLINS] Allergy Severe RASH Verified 05/09/24 11:54 levofloxacin Allergy Intermediate Rash Verified 05/09/24 11:54 Exam Vital Signs (past 8 hours): - 07/13/24 03:03 07/13/24 03:12 07/13/24 03:32 Temperature 97.2 F L Pulse Rate 94 H 77 Respiratory Rate 16 16 Blood Pressure 95/65 Pulse Oximetry 95 94 96 Oxygen Delivery Method Room Air Room Air Room Air Fraction of Inspired Oxygen 21 07/13/24 06:06 07/13/24 06:08 Temperature Pulse Rate 95 H 78 Respiratory Rate 29 H 19 Blood Pressure 105/70 96/52 L Pulse Oximetry 95 95 Oxygen Delivery Method Room Air Room Air Fraction of Inspired Oxygen Fraction of Inspired Oxygen 21 SaO2/FiO2 Ratio 457 Oxygen Delivery Method Room Air Const Other: in no distress, appears weak, tired, unable to participate with ROM. Mother Marianela at bedside reported on fever. He did not have worsening cough or chills HENMT Other: normocephalic, oxygen NC Eyes Other: EOMI Neck Other: tracheostomy Resp Other: Poor respiratory effort, decreased airflow on the left Cardio Other: RRR Skin Other: sacral pressure sore Neuro Other: spastic, hemiparetic - Lt Extrem Other: w/o swelling Psych Other: cognitive deficits Objective Labs 07/13/24 02:45 07/13/24 02:45 Labs: Laboratory Results - last 24 hr 07/13/24 07/13/24 02:45 03:15 WBC 7.3 RBC 4.35 L Hgb 10.4 L Hct 32.2 L MCV 74.1 L MCH 23.9 L MCHC 32.3 RDW 16.4 H Plt Count 437 H Neut % (Auto) 76.6 H Lymph % (Auto) 13.5 L [place] % (Auto) 8.1 Eos % (Auto) 0.7 L Baso % (Auto) 1.1 Neut # (Auto) 5600 Lymph # (Auto) 1000 L [place] # (Auto) 600 Eos # (Auto) 100 Baso # (Auto) 100 Sodium 127 L Potassium 4.4 Chloride 96 L Carbon Dioxide 28 BUN 13 Creatinine 0.25 L Estimated GFR > 60 BUN/Creatinine Ratio 52.0 H Glucose 86 Lactate 0.6 L Calcium 8.3 L Total Bilirubin 0.3 AST 19 ALT 9 Alkaline Phosphatase 85 Total Creatine Kinase 32 L Troponin I < 0.012 Total Protein 7.0 Albumin 3.3 L Globulin 3.7 Albumin/Globulin Ratio 0.9 L Lipase 59 Chlamy pneumoniae PCR Not detected Adenovirus (PCR) Not detected B. pertussis DNA (PCR) Not detected B.parapertussis DNA PCR Not detected Coronavirus OC43 (PCR) Not detected Coronavirus HKU1 (PCR) Not detected Coronavirus 229E (PCR) Not detected SARS-CoV-2 (PCR) Not detected Coronavirus NL63 (PCR) Not detected Human Metapneumovir PCR Not detected Influenza Type A (PCR) Not detected Influenza Type B (PCR) Not detected M. pneumoniae (PCR) Not detected Parainfluenza 1 (PCR) Not detected Parainfluenza 2 (PCR) Not detected Parainfluenza 3 (PCR) Not detected Parainfluenza 4 (PCR) Not detected RSV (PCR) Not detected Entero/Rhino (PCR) Detected H Assessment & Plan Assessment and plan (1) Pneumonia: Status: Acute (2) Acute hypoxemic respiratory failure: Status: Acute (3) Dysphagia: Qualifiers: Dysphagia type: unspecified Qualified Code(s): R13.10 - Dysphagia, unspecified Status: Acute (4) Rhinovirus infection: Status: Acute (5) Tracheostomy in place: Status: Acute (6) History of cerebral palsy: Status: Acute (7) History of pulmonary embolism: Status: Acute (8) Depression, major, recurrent: Qualifiers: Active/Remission status: in partial remission Qualified Code(s): F33.41 - Major depressive disorder, recurrent, in partial remission Status: Acute (9) Jejunostomy tube present: Status: Acute (10) Hyponatremia: Status: Acute Assessment & Plan narrative: PNA / Acute Hypoxemic Respiratory Failure / Rhinoviral URI - Lt sided, likely aspiration - tracheal aspirate send for culture, covered broadly with Cefepime and vancomycin - bronchodilator, mucinex Hx of PE - Eliquis Depression - Zoloft Cerebral Palsy - Baclofen for spasticity Hyponatremia - NS - chronic Time-Based Coding :: [TOTAL MINUTES] spent with patient and on the chart (including review of chart, obtaining history, exam, reviewing outside data, placing orders, documenting exam and treatment plan, and counseling patient) on [DATE].
--- NOTE | 2024-07-13 07:27 | PM.HP.1 ---
History of Present Illness History of Present Illness Date Patient Seen: 07/13/24 Chief complaint: resp. distress Narrative: From night doctor: 44 y/o with PMH of cerebral palsy, impaired mobility and spastic hemiparesis, dysphagia, tracheostomy, PEG, wheelchair-dependent, lives alone with caregiver visits, who presented today with shortness of breath, hypoxemic with completeley opacified Lt lung on CXR and CT. Without evidence of mucous plugging or endobronchial mass. Apart from significant hypoxemia at rest, he has no fever, chills, leukocytosis. Borderline hypotensive, not tachycardic. For possible aspiration PNA he was covered broadly and admitted on general farm hand. Additional information: The patient was nonverbal. The patient was also no distress. All counts from the admitting physician emergency physician reviewed. 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 Father No problems noted. Social History marital status: unmarried,single details: Lives independantly with part-time caregivers household members: none lives independently: Yes occupational status: disabled Smoking Status: Former smoker alcohol intake: never substance use type: marijuana Meds Home Medications and Allergies Home Medications Medication Instructions Recorded Confirmed Type Battery Powered Lift #1 ea 03/02/18 07/13/24 Rx Power Chair #1 ea 10/16/18 07/13/24 Rx Disabled Parking #1 ea 01/15/19 07/13/24 Rx Shower Chair #1 ea 07/04/19 07/13/24 Rx ferrous sulfate 325 mg (65 mg 130 mg PO DAILY 10/29/21 07/13/24 History iron) tablet XL mattress for semi-electric #1 ea 09/27/22 07/13/24 Rx hospital bed baclofen 5 mg/5 mL oral solution 5 mg (5 mL) PO DAILY #473 mL 01/20/23 07/13/24 Rx suction catheter #1 ea 04/06/23 07/13/24 Rx scopolamine base 1 mg over 3 days 1 patch topical Q3D 08/10/23 07/13/24 History transdermal patch syringe with needle 3 mL 20 gauge #1 ea 08/10/23 07/13/24 History x 1 (BD Luer-Rafael Syringe) apixaban 5 mg tablet (Eliquis) 5 mg PO BID #60 tabs 08/29/23 07/13/24 Rx Mattress #1 ea 03/28/24 07/13/24 Rx Semi-electric hospital bed #1 ea 03/28/24 07/13/24 Rx sertraline 100 mg tablet 200 mg (2 x 100 mg) PO DAILY #60 04/24/24 07/13/24 Rx tabs Allergies Allergy/AdvReac Type Severity Reaction Status Date / Time Penicillins [PENICILLINS] Allergy Severe RASH Verified 05/09/24 11:54 levofloxacin Allergy Intermediate Rash Verified 05/09/24 11:54 Review of Systems Review of Systems Narrative: Review of systems is otherwise unobtainable due to mental status. Exam Vital Signs (past 8 hours): - 07/13/24 03:03 07/13/24 03:12 07/13/24 03:32 Temperature 97.2 F L Pulse Rate 94 H 77 Respiratory Rate 16 16 Blood Pressure 95/65 Pulse Oximetry 95 94 96 Oxygen Delivery Method Room Air Room Air Room Air Fraction of Inspired Oxygen 21 07/13/24 06:06 07/13/24 06:08 07/13/24 06:38 Temperature 99.1 F Pulse Rate 95 H 78 90 Respiratory Rate 29 H 19 30 H Blood Pressure 105/70 96/52 L 102/63 Pulse Oximetry 95 95 96 Oxygen Delivery Method Room Air Room Air Fraction of Inspired Oxygen Fraction of Inspired Oxygen 21 SaO2/FiO2 Ratio 457 Oxygen Delivery Method Room Air Narrative Exam Narrative: NAD, awake and not really speaking. No distress. Chronically ill in appearance. Skin is somewhat pale in appearance. PEG and trach. Normocephalic skull, EOMI, anicteric sclera, symmetric pupils. Oropharynx unremarkable, no droop. Neck supple, midline trachea, no adenopathy. Lungs clear, normal rate and effort. Decreased breath sounds on the left side. Heart regular, no murmur gallop or rub. Abdomen is soft, non distended and non tender. Extremities are free of edema. Skin is free of rash or lesions. Joints are not swollen or deformed. Objective Imaging Multiple studies:: Radiologist's impression: Chest x-ray: Opacified left lung Chest CTA: No pulmonary embolus. Consolidative opacities involving almost the entirety of the left lung parenchyma with significant volume loss of the left lung and mediastinal shift to the left. Trace bilateral pleural effusions. Findings are most consistent with infection. Recommend three-month follow-up chest CT after appropriate treatment to ensure resolution. Findings are concordant with preliminary interpretation provided by [facility]. Labs 07/13/24 02:45 07/13/24 02:45 Labs: Laboratory Results - last 24 hr 07/13/24 07/13/24 02:45 03:15 WBC 7.3 RBC 4.35 L Hgb 10.4 L Hct 32.2 L MCV 74.1 L MCH 23.9 L MCHC 32.3 RDW 16.4 H Plt Count 437 H Neut % (Auto) 76.6 H Lymph % (Auto) 13.5 L [place] % (Auto) 8.1 Eos % (Auto) 0.7 L Baso % (Auto) 1.1 Neut # (Auto) 5600 Lymph # (Auto) 1000 L [place] # (Auto) 600 Eos # (Auto) 100 Baso # (Auto) 100 Sodium 127 L Potassium 4.4 Chloride 96 L Carbon Dioxide 28 BUN 13 Creatinine 0.25 L Estimated GFR > 60 BUN/Creatinine Ratio 52.0 H Glucose 86 Lactate 0.6 L Calcium 8.3 L Total Bilirubin 0.3 AST 19 ALT 9 Alkaline Phosphatase 85 Total Creatine Kinase 32 L Troponin I < 0.012 Total Protein 7.0 Albumin 3.3 L Globulin 3.7 Albumin/Globulin Ratio 0.9 L Lipase 59 Chlamy pneumoniae PCR Not detected Adenovirus (PCR) Not detected B. pertussis DNA (PCR) Not detected B.parapertussis DNA PCR Not detected Coronavirus OC43 (PCR) Not detected Coronavirus HKU1 (PCR) Not detected Coronavirus 229E (PCR) Not detected SARS-CoV-2 (PCR) Not detected Coronavirus NL63 (PCR) Not detected Human Metapneumovir PCR Not detected Influenza Type A (PCR) Not detected Influenza Type B (PCR) Not detected M. pneumoniae (PCR) Not detected Parainfluenza 1 (PCR) Not detected Parainfluenza 2 (PCR) Not detected Parainfluenza 3 (PCR) Not detected Parainfluenza 4 (PCR) Not detected RSV (PCR) Not detected Entero/Rhino (PCR) Detected H Assessment & Plan Assessment & Plan narrative: 1. PNA (RUSLAN+LLL), present on admission and active. 2. Acute Hypoxemic Respiratory Failure, present on admission and improving. 3. Rhinoviral URI, present on admission and active. 4. Remote PE, stable. Neg CTA. - Eliquis 5. Depression, stable. - Zoloft 6. Cerebral Palsy, stable. - Baclofen for spasticity 7. Hyponatremia, present on admission and active. - NS, chtonic component. PLAN: -continue broad-spectrum antibiotics -follow up blood and sputum cultures -we will send pneumococcal serologies -monitor SaO2 -droplet precautions for rhino virus -continue chronic medications. Anticipate at least a 2 midnight need for hospitalization. Inpatient status as supported. Full resuscitation. Mother is proxy decision maker. Time-Based Coding :: 35 min spent with patient and on the chart (including review of chart, obtaining history, exam, reviewing outside data, placing orders, documenting exam and treatment plan, and counseling patient) on 07/13. Quality VTE Deep Vein Thrombosis/Pulmonary Embolism Present on Admission: No MIPS - Admit I confirm the patient?s Advance Care Plan is present, Code status is documented, Surrogate decision maker is in patient?s record [If Yes, STOP here]: Yes MIPS - Meds 'Current medications' to include all prescriptions, [id number] products, herbals, cannabis/cannabidiol products, and vitamin/mineral/dietary (nutritional) supplements. I have utilized all available resources to obtain, update, or review the patient?s current medications. [If Yes, STOP here]: Yes
[2024-07-13] MEDS: SODIUM CHLORIDE 0.9% 1,000 ML 100 ML IV ×2 (07:48→18:37)
[2024-07-13] MEDS: APIXABAN 5 MG TABLET PO ×2 (08:33→20:52)
[2024-07-13] MEDS: FERROUS SULFATE 325 MG TABLET 130 MG PO (08:33)
[2024-07-13] MEDS: SERTRALINE 50 MG TABLET 200 MG PO (08:33)
[2024-07-13 08:42] LABS: MRSA (Nasal) PCR NOT DETECTED (Not Detect)
--- NOTE | 2024-07-13 11:20 | DIET.CONS ---
Dietary Consultation Note Admission Date: 07/13/2024 05:34 Assessment: 44 y M admitted for resp distress. PMH of cerebral palsy, dysphagia, tracheostomy, PEG. RD consulted for enteral feedings. Pt receives enteral supplies from [facility] in [place]. Attempted multiple times to contact enteral team to obtain feeding routine and EER. Unable to reach. START UP SPECIALIST provided number of mom, Marianela. Reached out to Marianela, who reports using [employer] formula, a 325 mL carton 3-4x/d Q4H. Unsure exactly which [employer] formula, but believes it to be the peptide 1.5 formula. Flushes 30 mL before and after feeds and also reports doing 4 oz flushes 10x/d. Marianela is okay with us providing pt with Jevity 1.2 as we not have his usual formula available here. If pt's own formula is brought in to hospital we will feed him with his usual formula from home. Marianela also reports using Banatrols 2-3 x/d mix with formula to help with stool formation as needed. Marianela reports Jonnie has been receiving feedings daily and she has not noted any recent weight loss. Marianela reports pt pleasure eats sometimes with strict oral care. Ht: 182.88 cm Wt: 77.111 kg (this weight is same as weight from 12/01/2020) BMI: 23.0 UBW: 79.787 kg on 04/28/24, 79.379 kg on 11/03/23 Last BM: 07/12/24 (07/13/24 06:48) MNA: 12 Krishan Score: 13 Diet: 07/13/24 Breakfast General (Regular) Diet Diet Modifications: Labs: RBC 4.35 X10^6/uL (4.5-5.9) L 07/13/24 02:45 Hgb 10.4 g/dL (13.5-17.5) L 07/13/24 02:45 Hct 32.2 % (41-53) L 07/13/24 02:45 Creatinine 0.25 mg/dL (0.66-1.25) L 07/13/24 02:45 Lactate 0.6 mmol/L (0.7-2.1) L 07/13/24 02:45 Nutrition Diagnosis: Inadequate oral intake r/t dysphagia aeb PEG tube Interventions: 1. Bolus feed of 325 mL of Jevity 1.2 4 times a day, with boluses 4 hours apart. Add 1 packet of prosource protein to 2 of the 4 bolus feedings for a total of 2 protein packets a day. Flush 30 mL before and after feeds and flush 125 mL Q6H. Feeds plus flush plus IV meet fluid needs (30 mL/kg). Bolus feeds + protein packet provides 1648 kcals (83% EER) and 94 g protein (99% EER) EER: 1975 kcals (25 kcals/kg per BMI using 79 kg) 95 g protein (1.2 g/kg per ICU status) Monitoring/Evaluations: TF tolerance Electronically Signed by: Flakita Hopkins 07/13/24 11:20 Clinical Dietitian [address] [address]
--- NOTE | 2024-07-13 11:57 | PC.NURSE ---
Lab unable to successfully draw blood with multiple staff, nursing also unable to. Provider made aware.
[2024-07-13] MEDS: DEXTROSE 10 % IN WATER 100 ML 1200 ML IV (12:45)
--- NOTE | 2024-07-13 14:01 | CM.DANOTE ---
DPA Note: Patient is a 44 y/o m admitted with PNA. Chart reviewed, discussed in rounds, and spoke with his Mother at bedside. 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 He get his trach supplies from [place] and PEG supplies from [facility] in [place]. Patient is WC bound and uses a ashley lift to transfer. He has caregivers that assist daily through [facility] and [employer]. His Mom supplements care when the caregivers aren't there, mostly through the night. Patient does have a trach wound that is concerning for care management and might benefit from HHC. No other needs identified at this time, will follow closely. CRAIG Eisenberg Discharge Planning/Care Management CM Discharge Assessment Start: 07/13/24 13:57 Freq: Status: Active Protocol: Document 07/13/24 13:58 KG (Rec: 07/13/24 14:01 KG [id number]) Discharge Planning Assessment Assigned Face Burler Iqra Humphreys Advance Directives? Yes: DPOA Advance Directives on File No History Provided By Parents Prior Living Arrangements Apartment/Condo Comment Lives in community with other disabled [place] in a 2 bedroom cottage Household Members none Type of transporation used prior to Medicaid Transport admit Independent with ADL's No Is patient alert and oriented? Yes Needs Assistance With Bathing,Grooming,Toileting, Managing Medications Caregiver for Another No DME Already Rented / Owned Wheelchair,Other Comment Patient is mostly bedbound/ wheelchair bound at baseline with neurological issues from previous brain tumor. Has home ashley lift Patient/Family Preference Home with Home Health Comment Mother primary [email or web address] Discharge Plan Home Transportation Arrangement Pending d/c plan of home vs SNF Referrals Initiated Home Health
[2024-07-13] MEDS: VANCOMYCIN 1,500 MG/300 ML PIGGYBACK 200 MG IV (16:34)
[2024-07-13] MEDS: CEFEPIME 1 GM in SODIUM CHLORIDE 0.9% 100 ML IV (18:38)
[2024-07-14] VITALS (44 sets, daily range): BP systolic 90–108; BP diastolic 58–70; PULSE 69–84; RESP 19–27; TEMP 36.3–36.8; O2SAT 93–99
[2024-07-14] MEDS: VANCOMYCIN 1,500 MG/300 ML PIGGYBACK 200 MG IV ×2 (04:14→17:11)
[2024-07-14] MEDS: DEXTROSE 50 % IN WATER 25 GM/50 ML SYRINGE IV (04:43)
[2024-07-14 05:21] LABS: Blood Urea Nitrogen 7 mg/dL (9-20); Calcium 7.7 mg/dL (8.4-10.2); Carbon Dioxide 23 mmol/L (22-32); Chloride 102 mmol/L (98-107); Estimated Glomerular Filt Rate > 60 mL/min (>60); Glucose 164 mg/dL (70-100); HEMOLYSIS < 15 (0-50); Potassium 3.8 mmol/L (3.4-5.1); Sodium 128 mmol/L (137-145)
--- NOTE | 2024-07-14 06:16 | PC.NURSE ---
Centre juice given for hypoglycemia.
--- NOTE | 2024-07-14 06:19 | PC.NURSE ---
Saline juice given
[2024-07-14] MEDS: CEFEPIME 1 GM in SODIUM CHLORIDE 0.9% 100 ML IV (06:24)
[2024-07-14] MEDS: DEXTROSE 5%-0.9% NS 1,000 ML 100 ML IV ×2 (06:26→17:11)
[2024-07-14] MEDS: FERROUS SULFATE 325 MG TABLET PO (08:18)
[2024-07-14] MEDS: SERTRALINE 50 MG TABLET 200 MG PO (08:18)
[2024-07-14] MEDS: APIXABAN 5 MG TABLET PO ×2 (08:18→20:58)
--- NOTE | 2024-07-14 09:30 | DI.RAD.S_ITS ---
PROCEDURE: XR CHEST 1V INDICATIONS: reassess left lung TECHNIQUE: One view of the chest was acquired. COMPARISON: [facility], CT, CT ANGIO CHEST PE PROTOCOL, 07/13/2024, 3:52. [facility], CR, XR CHEST 1V, 04/28/2024, 14:26. [facility], CR, XR CHEST 1V, 07/13/2024, 3:02. FINDINGS: Surgical changes and devices: There is a tracheostomy tube seen in place. Lungs and pleura: The left hemithorax demonstrates complete opacification. On this semiupright study, no large pneumothorax can be seen. The right lung appears clear. Mediastinum: The mediastinal contours are obscured and are shifted to the left. Bones and chest wall: No suspicious bony lesions. Age-appropriate bony degenerative changes are seen. Overlying soft tissues appear unremarkable. IMPRESSION: Complete opacification of the left hemithorax again seen. The mediastinal contours are obscured and are shifted to the left. Postoperative and degenerative changes are seen. Dictated by: Johnnie Ramesh M.D. on 07/14/2024 at 10:16 Approved by: Johnnie Ramesh M.D. on 07/14/2024 at 10:18
--- NOTE | 2024-07-14 15:56 | PM.PN.1 ---
Subjective Subjective Date Patient Seen: 07/14/24 Time Patient Seen: 11:45 Interval history: 44 M admitted with respiratory failure, now improved but imaging still shows complete opacification of his left lung. He also has a history of pseudomonas and MRSA infection, but may be colonized. He appears okay today, 97% on room air. Exam Vital Signs (past 8 hours): - 07/14/24 08:00 07/14/24 08:00 07/14/24 08:26 Temperature 97.3 F L Pulse Rate 72 73 Respiratory Rate 23 24 Blood Pressure 90/58 L Pulse Oximetry 97 95 07/14/24 08:30 07/14/24 09:00 07/14/24 09:30 Temperature Pulse Rate 73 75 78 Respiratory Rate 23 26 H 22 Blood Pressure Pulse Oximetry 94 93 94 07/14/24 10:00 07/14/24 10:30 07/14/24 11:00 Temperature Pulse Rate 76 76 77 Respiratory Rate 26 H 26 H 27 H Blood Pressure Pulse Oximetry 96 96 97 07/14/24 11:30 07/14/24 11:30 07/14/24 12:00 Temperature Pulse Rate 75 Respiratory Rate 25 H Blood Pressure 101/69 104/69 Pulse Oximetry 97 07/14/24 12:00 Temperature Pulse Rate 77 Respiratory Rate 25 H Blood Pressure Pulse Oximetry 97 Fraction of Inspired Oxygen 21 SaO2/FiO2 Ratio 466 Oxygen Delivery Method Room Air,Humidification,Trach Collar Oxygen Flow Rate 0 Narrative Exam Narrative: NAD, awake and not really speaking. No distress. Chronically ill in appearance. Skin is somewhat pale in appearance. PEG and trach. Normocephalic skull, EOMI, anicteric sclera, symmetric pupils. Oropharynx unremarkable, no droop. Neck supple, midline trachea, no adenopathy. Lungs clear, normal rate and effort. Markedly Decreased breath sounds on the left side. Heart regular, no murmur gallop or rub. Abdomen is soft, non distended and non tender. Extremities are free of edema. Skin is free of rash or lesions. Joints are not swollen or deformed. Objective Labs 07/13/24 02:45 07/14/24 05:00 Labs: Laboratory Results - last 24 hr 07/14/24 05:00 Sodium 128 L Potassium 3.8 Chloride 102 Carbon Dioxide 23 BUN 7 L Creatinine 0.28 L Estimated GFR > 60 BUN/Creatinine Ratio 25.0 H Glucose 164 H Calcium 7.7 L [facility] Medical History History of pulmonary embolism Status post radiation therapy Chronic anticoagulation Tracheostomy in place Sacral decubitus ulcer, stage III Protein calorie malnutrition Hyponatremia Dysphagia Recurrent aspiration pneumonia Depression, major, recurrent Jejunostomy tube present Influenza A Anemia Pneumonia 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 Father No problems noted. Social History marital status: unmarried,single details: Lives independantly with part-time caregivers household members: none lives independently: Yes occupational status: disabled Smoking Status: Former smoker alcohol intake: never substance use type: marijuana Assessment & Plan Assessment & Plan narrative: 1. PNA (RUSLAN+LLL), present on admission and active. 2. Acute Hypoxemic Respiratory Failure, present on admission and improving. 3. Rhinoviral URI, present on admission and active. 4. Remote PE, stable. Neg CTA. - Eliquis 5. Depression, stable. - Zoloft 6. Cerebral Palsy, stable. - Baclofen for spasticity 7. Hyponatremia, present on admission and active. PLAN: -continue broad-spectrum antibiotics, change to antipseudomonal dosing of cefepime given prior cultures with cefepime and vancomycin with also history of MRSA and allergies to fluoroquinolones. -follow up blood and sputum cultures -droplet precautions for rhino virus -continue chronic medications. -He is not hypoxic today, though has a complete opacification of his left lobe. May need bronchoscopy but will await cultures for now and monitor. -continue home tube feeds, consider reduction in free water with his low sodium Anticipate at least a 2 midnight need for hospitalization. Inpatient status as supported. Full resuscitation. Mother is proxy decision maker. Time-Based Coding :: [TOTAL MINUTES] spent with patient and on the chart (including review of chart, obtaining history, exam, reviewing outside data, placing orders, documenting exam and treatment plan, and counseling patient) on [DATE]. Quality VTE Deep Vein Thrombosis/Pulmonary Embolism Present on Admission: No
--- NOTE | 2024-07-14 16:04 | CM.DPNOTE ---
DCP NOte SURGICAL TECH reviewed EMR. Per RN report, on room air, still has moderate secretions. Per hospitalist in morning rounds, repeat chest x ray pending. remains on IV abx, cultures pending. SURGICAL TECH met with mom and pt briefly in room. Mom reports interested in HH, no preference for agency, for as many visits as possible for home wound care/trach/peg management. no preference for agency. COnfirm has all DME/CG needs met at home. SURGICAL TECH emailed [place] with [facility] based on rotating film inspector calendar. f2f and order needed P: home with mom and CG support when medically stable, [facility] to follow for RN pending acceptance. transport with mom. CM team will continue to follow as needed ARIC Rebolledo
[2024-07-14] MEDS: CEFEPIME 2 GM in SODIUM CHLORIDE 0.9% 100 ML IV (18:50)
[2024-07-15] VITALS (34 sets, daily range): BP systolic 94–109; BP diastolic 63–74; PULSE 61–82; RESP 18–34; TEMP 36.8; O2SAT 85–100
[2024-07-15] MEDS: VANCOMYCIN 1,500 MG/300 ML PIGGYBACK 200 MG IV (04:47)
[2024-07-15 05:49] LABS: Add Manual Diff / Slide Review NO; Basophils Absolute Auto 100 /uL (0-100); Basophils Percent Auto 3.4 % (0-2); Eosinophils Absolute Auto 200 /uL (0-450); Eosinophils Percent Auto 9.3 % (2-4); Hematocrit 31.3 % (41-53); Hemoglobin 10.2 g/dL (13.5-17.5); Lymphocytes Absolute Auto 800 /uL (1100-4500); Mean Corpuscular HGB Conc 32.5 % (30-36); Mean Corpuscular Hemoglobin 24.3 PG (26-34); Mean Corpuscular Volume 74.8 fL (80-100); Monocytes Absolute Auto 300 /uL (0-900); Monocytes Percent Auto 12.1 % (3-14); Neutrophils Absolute Auto 900 /uL (1500-7000); Neutrophils Percent Auto 38.2 % (50-75); Platelet Count 381 X10^3/uL (150-400); Red Blood Cell Count 4.18 X10^6/uL (4.5-5.9); Red Cell Distribution Width 15.6 % (11.6-14.8); White Blood Cell Count 2.2 X10^3/uL (4.5-11.0)
[2024-07-15 05:55] LABS: BUN Creatinine Ratio 15.6 (6-22); Blood Urea Nitrogen 5 mg/dL (9-20); Calcium 8.1 mg/dL (8.4-10.2); Carbon Dioxide 24 mmol/L (22-32); Chloride 103 mmol/L (98-107); Estimated Glomerular Filt Rate > 60 mL/min (>60); Glucose 70 mg/dL (70-100); HEMOLYSIS < 15 (0-50); Potassium 3.9 mmol/L (3.4-5.1); Sodium 130 mmol/L (137-145)
[2024-07-15] MEDS: DEXTROSE 50 % IN WATER 25 GM/50 ML SYRINGE IV (06:11)
[2024-07-15] MEDS: CEFEPIME 2 GM in SODIUM CHLORIDE 0.9% 100 ML IV ×2 (06:34→17:13)
[2024-07-15] MEDS: DEXTROSE 5%-0.9% NS 1,000 ML 100 ML IV ×2 (06:38→18:31)
[2024-07-15] MEDS: SERTRALINE 50 MG TABLET 200 MG PO (08:37)
[2024-07-15] MEDS: APIXABAN 5 MG TABLET PO ×2 (08:37→21:17)
[2024-07-15] MEDS: FERROUS SULFATE 325 MG TABLET PO (08:37)
--- NOTE | 2024-07-15 15:26 | PM.PN.1 ---
Subjective Subjective Date Patient Seen: 07/14/24 Time Patient Seen: 15:27 Interval history: 44 M admitted with respiratory failure, now improved but imaging still shows complete opacification of his left lung. He also has a history of pseudomonas and MRSA infection, but may be colonized. He appears okay today, 97% on room air. Exam Vital Signs (past 8 hours): - 07/15/24 07:30 07/15/24 08:00 07/15/24 08:00 Pulse Rate 66 63 Respiratory Rate 19 18 Blood Pressure 94/63 Pulse Oximetry 97 97 07/15/24 08:30 07/15/24 09:00 07/15/24 09:30 Pulse Rate 61 61 62 Respiratory Rate 19 20 21 Blood Pressure Pulse Oximetry 98 99 100 07/15/24 10:00 07/15/24 10:30 07/15/24 11:00 Pulse Rate 74 64 67 Respiratory Rate 28 H 25 H 18 Blood Pressure Pulse Oximetry 85 L 99 98 07/15/24 11:30 07/15/24 12:00 07/15/24 12:00 Pulse Rate 70 69 Respiratory Rate 24 23 Blood Pressure 109/69 Pulse Oximetry 99 100 Fraction of Inspired Oxygen 21 SaO2/FiO2 Ratio 466 Oxygen Delivery Method Room Air,Humidification,Trach Collar Oxygen Flow Rate 0 Narrative Exam Narrative: NAD, awake and not really speaking. No distress. Chronically ill in appearance. Skin is somewhat pale in appearance. PEG and trach. Normocephalic skull, EOMI, anicteric sclera, symmetric pupils. Oropharynx unremarkable, no droop. Neck supple, midline trachea, no adenopathy. Lungs clear, normal rate and effort. Markedly Decreased breath sounds on the left side. Heart regular, no murmur gallop or rub. Abdomen is soft, non distended and non tender. Extremities are free of edema. Skin is free of rash or lesions. Joints are not swollen or deformed. Objective Labs 07/15/24 05:20 07/15/24 05:20 Labs: Laboratory Results - last 24 hr 07/14/24 07/14/24 07/15/24 16:10 19:47 05:20 WBC 2.2 L RBC 4.18 L Hgb 10.2 L Hct 31.3 L MCV 74.8 L MCH 24.3 L MCHC 32.5 RDW 15.6 H Plt Count 381 Neut % (Auto) 38.2 L Lymph % (Auto) 37.0 [place] % (Auto) 12.1 Eos % (Auto) 9.3 H Baso % (Auto) 3.4 H Neut # (Auto) 900 L Lymph # (Auto) 800 L [place] # (Auto) 300 Eos # (Auto) 200 Baso # (Auto) 100 Sodium 130 L Potassium 3.9 Chloride 103 Carbon Dioxide 24 BUN 5 L Creatinine 0.32 L Estimated GFR > 60 BUN/Creatinine Ratio 15.6 Glucose 70 Calcium 8.1 L Vancomycin Peak 34.0 Vancomycin Trough 15.0 PFSH Medical History History of pulmonary embolism Status post radiation therapy Chronic anticoagulation Tracheostomy in place Sacral decubitus ulcer, stage III Protein calorie malnutrition Hyponatremia Dysphagia Recurrent aspiration pneumonia Depression, major, recurrent Jejunostomy tube present Influenza A Anemia Pneumonia 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 Father No problems noted. Social History marital status: unmarried,single details: Lives independantly with part-time caregivers household members: none lives independently: Yes occupational status: disabled Smoking Status: Former smoker alcohol intake: never substance use type: marijuana Assessment & Plan Assessment & Plan narrative: 1. PNA (RUSLAN+LLL), present on admission and active. 2. Acute Hypoxemic Respiratory Failure, present on admission and improving. 3. Rhinoviral URI, present on admission and active. 4. Remote PE, stable. Neg CTA. - Eliquis 5. Depression, stable. - Zoloft 6. Cerebral Palsy, stable. - Baclofen for spasticity 7. Hyponatremia, present on admission and active. PLAN: -continue broad-spectrum antibiotics, change to antipseudomonal dosing of cefepime given prior cultures with cefepime and vancomycin with also history of MRSA and allergies to fluoroquinolones. I suspect he will need 7 days of IV antibiotics given his allergy for pseudomonas as in review it is not entirely clear if this was ever treated with a full course. -follow up sputum culture. -droplet precautions for rhino virus -continue chronic medications. -He is not hypoxic today, though has a complete opacification of his left lobe. May need bronchoscopy but will await cultures for now and monitor. Will discuss with pulmonology tomorrow when in house if need for bronchoscopy given current stability. -continue home tube feeds, consider reduction in free water with his low sodium Anticipate at least a 2 midnight need for hospitalization. Inpatient status as supported. Full resuscitation. Mother is proxy decision maker. Time-Based Coding :: [TOTAL MINUTES] spent with patient and on the chart (including review of chart, obtaining history, exam, reviewing outside data, placing orders, documenting exam and treatment plan, and counseling patient) on [DATE]. Quality VTE Deep Vein Thrombosis/Pulmonary Embolism Present on Admission: No
[2024-07-15] MEDS: VANCOMYCIN 1,250 MG/250 ML PIGGYBACK 250 MG IV (17:01)
--- NOTE | 2024-07-15 19:40 | PC.NURSE ---
pt has had an uneventful shift; his fingersticks were both 115; he has been suctioned multiple times, copious amts of thick whitish sputum; he had a large insontinent BM; he is tolerating his tube feeds; his mother came to visit today
[2024-07-16] VITALS (11 sets, daily range): BP systolic 94–128; BP diastolic 59–86; PULSE 73–83; RESP 21–24; TEMP 36.1–37.1; O2SAT 97–100
[2024-07-16] MEDS: VANCOMYCIN 1,250 MG/250 ML PIGGYBACK 250 MG IV (04:32)
[2024-07-16] MEDS: DEXTROSE 5%-0.9% NS 1,000 ML 100 ML IV (04:33)
[2024-07-16 05:33] LABS: Add Manual Diff / Slide Review NO; Basophils Absolute Auto 0 /uL (0-100); Basophils Percent Auto 0.5 % (0-2); Eosinophils Absolute Auto 300 /uL (0-450); Eosinophils Percent Auto 11.1 % (2-4); Hematocrit 28.2 % (41-53); Hemoglobin 9.3 g/dL (13.5-17.5); Lymphocytes Absolute Auto 700 /uL (1100-4500); Lymphocytes Percent Auto 28.1 % (25-40); Mean Corpuscular HGB Conc 32.8 % (30-36); Mean Corpuscular Hemoglobin 24.6 PG (26-34); Mean Corpuscular Volume 74.9 fL (80-100); Monocytes Absolute Auto 300 /uL (0-900); Monocytes Percent Auto 13.6 % (3-14); Neutrophils Absolute Auto 1100 /uL (1500-7000); Neutrophils Percent Auto 46.7 % (50-75); Platelet Count 429 X10^3/uL (150-400); Red Blood Cell Count 3.76 X10^6/uL (4.5-5.9); White Blood Cell Count 2.5 X10^3/uL (4.5-11.0)
[2024-07-16] MEDS: CEFEPIME 2 GM in SODIUM CHLORIDE 0.9% 100 ML IV ×2 (05:41→18:03)
[2024-07-16 05:50] LABS: Blood Urea Nitrogen 8 mg/dL (9-20); Calcium 7.8 mg/dL (8.4-10.2); Carbon Dioxide 22 mmol/L (22-32); Chloride 104 mmol/L (98-107); Estimated Glomerular Filt Rate > 60 mL/min (>60); Glucose 102 mg/dL (70-100); HEMOLYSIS < 15 (0-50); Potassium 3.9 mmol/L (3.4-5.1); Sodium 130 mmol/L (137-145)
[2024-07-16] MEDS: APIXABAN 5 MG TABLET PO ×2 (09:09→21:07)
[2024-07-16] MEDS: SERTRALINE 50 MG TABLET 200 MG PO (09:09)
[2024-07-16] MEDS: FERROUS SULFATE 325 MG TABLET PO (09:09)
--- NOTE | 2024-07-16 10:16 | DIET.CONS ---
Dietary Consultation Note Admission Date: 07/13/2024 05:34 Assessment: Per RN, pt experiencing lots of diarrhea. Switching to fiber free Pivot 1.5. New reccs below. Dextrose is running 100 mL/hr. Reducing flushes d/t fluid needs met through IV. Ht: 182.88 cm Wt: 77.111 kg BMI: 23.0 UBW: Last BM: 07/15/24 (07/15/24 22:00) MNA: 12 Krishan Score: 13 Diet: 07/13/24 Lunch Tube Feeding Diet Diet Modifications: TF Supplement type: Jevity 1.2 saurav TF mode of delivery: Bolus Starting flow rate mL/hr: 325 Flow rate goal mL/hr: 325 Titration Schedule to reach Goal Rate: 325 mL 4x/day Max total daily volume in mL: 1,300 Free fluid: 125 Free Water Frequency: Q6H Comment: 30 mL flush before& after bolus feeds; add 1 packet prosource to bolus 2x/d Nutrition Type of Feeding Tube PEG 07/15/24 21:30 Type of Feeding Tube PEG 07/15/24 11:16 Type of Feeding Tube PEG 07/15/24 05:46 Type of Feeding Tube PEG 07/14/24 22:00 Labs: RBC 3.76 X10^6/uL (4.5-5.9) L 07/16/24 05:26 Hgb 9.3 g/dL (13.5-17.5) L 07/16/24 05:26 Hct 28.2 % (41-53) L 07/16/24 05:26 Creatinine 0.25 mg/dL (0.66-1.25) L 07/16/24 05:26 Lactate 0.6 mmol/L (0.7-2.1) L 07/13/24 02:45 Interventions: 1. Recc enteral nutrition bolus of Pivot 1.5 at 255 mL 4 times a day, each bolus Q4H apart. Flush 30 mL before and after feeds. Feeds plus flushes provides 1005 mL. Meeting fluids needs with IV fluids. Bolus feeds provides 77.5% EER (1530 kcals) and 96 g protein (100% EER) EER: 1975 kcals (25 kcals/kg per BMI using 79 kg) 95 g protein (1.2 g/kg per ICU status) Monitoring/Evaluations: TF tolerance Electronically Signed by: Flakita Hopkins 07/16/24 10:16 Clinical Dietitian [address] [address]
--- NOTE | 2024-07-16 11:06 | CM.DPNOTE ---
Addendum entered by ARIC Dougherty 07/16/24 15:21: [facility] declines this patient based on [facility] insurance. [facility] accepts. Original Note: DCP Cont According to Dr Gupta, patient is nearing readiness for discharge. Patient will need IV cefepime through July 22. PCP to follow. [place] back from [facility], they are unable to provide HH RN for anyone with a trach. Placed call to patient's mom Marianela P [phone], discussed discharge plan. Marianela states agreement with home infusion and has no agency preference. Updated Marianela with news from [facility] and explained that [facility] and [facility] would also be contacted, mom appreciative. Spoke with Bala at [facility], reviewed this referral and emailed demo sheet with clinical to [email or web address]. Messaged Dr Marshall and the Care Transitions nursing team in his office to see if Dr Marshall is okay with managing patient's IV cefepime this week. CM team following closely for coordination. Plan: Discharge home with continued assist from mom, caregiver(s), [facility] care for peg feeds, [place] for trach maintenance, HH RN for wound care if available, home infusion once secured via private auto vs [facility] transport. GUILLE
--- NOTE | 2024-07-16 11:38 | RT ---
At 1000, tracheostomy care done. Trach tube: Shiley-Covidian 8.5 I.D. Cuffless. Disposible inner cannula cleaned. Stoma care done. Stoma site: noting redness, serosanguinous drainage from drainage sponge. New drainage sponge placed. Trach tube is midline, patent, and remains secured. Pt remains on cool aerosol trach collar at 21% FiO2. SpO2, HR, RR WNLs. Pt tolerated procedure well, no abnormalities noted.
--- NOTE | 2024-07-16 13:36 | PM.PN.1 ---
Subjective Subjective Interval history: 44 M admitted with respiratory failure, now improved but imaging still shows complete opacification of his left lung. Treating pseudomonal pneumonia with cefepime as patient has fluoroquinolone allergy. He is doing well, but has complete opacification of his left lung. Awaiting to talk with pulmonary about possible bronchoscopy, however no one is second shift supervisor today for [facility]. Exam Vital Signs (past 8 hours): - 07/16/24 06:00 07/16/24 08:00 07/16/24 08:00 Temperature Pulse Rate 81 74 Respiratory Rate 23 21 Blood Pressure 94/61 Pulse Oximetry 97 97 Oxygen Delivery Method Oxygen Flow Rate Fraction of Inspired Oxygen 07/16/24 09:29 07/16/24 09:50 07/16/24 10:00 Temperature 98 F Pulse Rate 81 80 Respiratory Rate 22 22 Blood Pressure Pulse Oximetry 98 98 Oxygen Delivery Method Room Air Trach Collar Blow By Room Air Trach Collar Oxygen Flow Rate 0 Fraction of Inspired Oxygen 21 Fraction of Inspired Oxygen 21 SaO2/FiO2 Ratio 466 Oxygen Delivery Method Room Air,Trach Collar Oxygen Flow Rate 0 Narrative Exam Narrative: NAD, awake and not really speaking. No distress. Chronically ill in appearance. Skin is somewhat pale in appearance. PEG and trach. Normocephalic skull, EOMI, anicteric sclera, symmetric pupils. Oropharynx unremarkable, no droop. Neck supple, midline trachea, no adenopathy. Lungs clear, normal rate and effort. Markedly Decreased breath sounds on the left side. Heart regular, no murmur gallop or rub. Abdomen is soft, non distended and non tender. Extremities are free of edema. Skin is free of rash or lesions. Joints are not swollen or deformed. Objective Labs 07/16/24 05:26 07/16/24 05:26 Labs: Laboratory Results - last 24 hr 07/16/24 05:26 WBC 2.5 L RBC 3.76 L Hgb 9.3 L Hct 28.2 L MCV 74.9 L MCH 24.6 L MCHC 32.8 RDW 16.0 H Plt Count 429 H Neut % (Auto) 46.7 L Lymph % (Auto) 28.1 [place] % (Auto) 13.6 Eos % (Auto) 11.1 H Baso % (Auto) 0.5 Neut # (Auto) 1100 L Lymph # (Auto) 700 L [place] # (Auto) 300 Eos # (Auto) 300 Baso # (Auto) 0 Sodium 130 L Potassium 3.9 Chloride 104 Carbon Dioxide 22 BUN 8 L Creatinine 0.25 L Estimated GFR > 60 BUN/Creatinine Ratio 32.0 H Glucose 102 H Calcium 7.8 L PFSH Medical History History of pulmonary embolism Status post radiation therapy Chronic anticoagulation Tracheostomy in place Sacral decubitus ulcer, stage III Protein calorie malnutrition Hyponatremia Dysphagia Recurrent aspiration pneumonia Depression, major, recurrent Jejunostomy tube present Influenza A Anemia Pneumonia 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 Father No problems noted. Social History marital status: unmarried,single details: Lives independantly with part-time caregivers household members: none lives independently: Yes occupational status: disabled Smoking Status: Former smoker alcohol intake: never substance use type: marijuana Assessment & Plan Assessment & Plan narrative: 1. PNA (RUSLAN+LLL), present on admission and active. 2. Acute Hypoxemic Respiratory Failure, present on admission and improving. 3. Rhinoviral URI, present on admission and active. 4. Remote PE, stable. Neg CTA. - Eliquis 5. Depression, stable. - Zoloft 6. Cerebral Palsy, stable. - Baclofen for spasticity 7. Hyponatremia, present on admission and active. PLAN: -continue broad-spectrum antibiotics, change to antipseudomonal dosing of cefepime given prior cultures with cefepime and vancomycin with also history of MRSA and allergies to fluoroquinolones. I suspect he will need 7 days of IV antibiotics given his allergy for pseudomonas as in review it is not entirely clear if this was ever treated with a full course recently. He does appear to have had prior treatment with eradication at outside facilities per chart review. -Pulmonology is available for consultation tomorrow, will discuss with them about bronchoscopy when available given patient remains off supplemental oxygen. -vancomycin discontinued today with no MRSA noted -droplet precautions for rhino virus -continue chronic medications. -continue home tube feeds, consider reduction in free water with his low sodium, but this is stable at 130 today. Inpatient, likely home vs SNF for antibiotic therapy. Midline placed today. Will need cefepime 2g q12 until 07/22/2024. Also pending pulmonology discussion regarding possible bronchoscopy. Full resuscitation. Mother is proxy decision maker. Time-Based Coding :: [TOTAL MINUTES] spent with patient and on the chart (including review of chart, obtaining history, exam, reviewing outside data, placing orders, documenting exam and treatment plan, and counseling patient) on [DATE]. Quality VTE Deep Vein Thrombosis/Pulmonary Embolism Present on Admission: No
[2024-07-17] VITALS (9 sets, daily range): BP systolic 97–103; BP diastolic 65–70; PULSE 74–85; RESP 18–22; TEMP 36.1–36.8; O2SAT 93–98
--- NOTE | 2024-07-17 02:32 | PC.NURSE ---
Pt has needed to be suction multiple times tonight. using the call light appropriately. Pt at times becomes frustrated and starts crying when unable to make his needs known. This nurse reassure pt to take his time using the trace voice box and that I am here to help him. condom cath being used tonight. Pt bottome is red/excoriated, no open wounds noted. pt being turned every 2 hours. BS this am around 0200 was 74, pt was scheduled for a bolus feeding, will recheck BS again after feeding done.
[2024-07-17] MEDS: CEFEPIME 2 GM in SODIUM CHLORIDE 0.9% 100 ML IV ×2 (05:15→12:57)
[2024-07-17] MEDS: APIXABAN 5 MG TABLET PO (09:32)
[2024-07-17] MEDS: FERROUS SULFATE 325 MG TABLET PO (09:32)
[2024-07-17] MEDS: SERTRALINE 50 MG TABLET 200 MG PO (09:32)
--- NOTE | 2024-07-17 10:14 | DIET.PN1 ---
Dietary Progress Note Assessment: NPO for procedure, tube feeds will be resumed after. Per RN this morning, no BM yet this morning. Will f/u tomorrow to monitor TF tolerance. Ht: 182.88 cm Wt: 77.111 kg BMI: 23.0 Last BM: 07/16/24 (07/16/24 11:16) MNA: 12 Krishan Score: 11 Diet: 07/17/24 00:01 NPO Diet Diet Modifications: NPO Type: NPO after Midnight Nutrition Type of Feeding Tube PEG 07/16/24 18:45 Type of Feeding Tube PEG 07/15/24 21:30 Type of Feeding Tube PEG 07/15/24 11:16 Labs: RBC 3.76 X10^6/uL (4.5-5.9) L 07/16/24 05:26 Hgb 9.3 g/dL (13.5-17.5) L 07/16/24 05:26 Hct 28.2 % (41-53) L 07/16/24 05:26 Creatinine 0.25 mg/dL (0.66-1.25) L 07/16/24 05:26 Lactate 0.6 mmol/L (0.7-2.1) L 07/13/24 02:45 Electronically Signed by: Flakita Hopkins 07/17/24 10:14 Clinical Dietitian [address] [address]
[2024-07-17 10:17] LABS: Add Manual Diff / Slide Review NO; Basophils Absolute Auto 0 /uL (0-100); Basophils Percent Auto 0.8 % (0-2); Eosinophils Absolute Auto 200 /uL (0-450); Eosinophils Percent Auto 6.8 % (2-4); Hematocrit 28.4 % (41-53); Hemoglobin 9.3 g/dL (13.5-17.5); Lymphocytes Absolute Auto 1000 /uL (1100-4500); Lymphocytes Percent Auto 31.6 % (25-40); Mean Corpuscular HGB Conc 32.8 % (30-36); Mean Corpuscular Hemoglobin 24.2 PG (26-34); Mean Corpuscular Volume 73.8 fL (80-100); Monocytes Absolute Auto 400 /uL (0-900); Monocytes Percent Auto 10.9 % (3-14); Neutrophils Absolute Auto 1600 /uL (1500-7000); Neutrophils Percent Auto 49.9 % (50-75); Platelet Count 406 X10^3/uL (150-400); Red Blood Cell Count 3.85 X10^6/uL (4.5-5.9); Red Cell Distribution Width 16.6 % (11.6-14.8); White Blood Cell Count 3.2 X10^3/uL (4.5-11.0)
[2024-07-17 10:27] LABS: Blood Urea Nitrogen 11 mg/dL (9-20); Carbon Dioxide 24 mmol/L (22-32); Chloride 103 mmol/L (98-107); Estimated Glomerular Filt Rate > 60 mL/min (>60); Glucose 74 mg/dL (70-100); Potassium 4.5 mmol/L (3.4-5.1); Sodium 130 mmol/L (137-145)
[2024-07-17 10:28] LABS: HEMOLYSIS 58 (0-50)
--- NOTE | 2024-07-17 11:10 | DI.RAD.S_ITS ---
PROCEDURE: XR CHEST 1V INDICATIONS: f/u L lung opacification prior to poss. bronch today TECHNIQUE: One view of the chest was acquired. COMPARISON: [facility], CT, CT ANGIO CHEST PE PROTOCOL, 07/13/2024, 3:52. [facility], CR, XR CHEST 1V, 07/14/2024, 10:48. FINDINGS: Surgical changes and devices: Tracheostomy tube Lungs and pleura: Opacification of the left hemithorax with slight mediastinal shift to the left. Right lung is grossly clear. Trace right pleural effusion. Mediastinum: Mediastinal contours appear normal. Heart size is normal. Bones and chest wall: No suspicious bony lesions. Overlying soft tissues appear unremarkable. IMPRESSION: Opacification of the left hemithorax. Mild associated volume loss. Dictated by: Simón Boyer M.D. on 07/17/2024 at 12:21 Approved by: Simón Boyer M.D. on 07/17/2024 at 12:23
--- NOTE | 2024-07-17 11:10 | PM.PN.1 ---
Subjective Subjective Interval history: 44 M admitted with respiratory failure, now improved but imaging still shows complete opacification of his left lung. Treating pseudomonal pneumonia with cefepime as patient has fluoroquinolone allergy, end date 07/22. Increased frequency to q8 today based on renal function. Exam Vital Signs (past 8 hours): - 07/17/24 05:29 07/17/24 08:00 Temperature 98.3 F Pulse Rate 74 Respiratory Rate 18 Blood Pressure 99/66 Pulse Oximetry 97 97 Oxygen Flow Rate 6 6 Fraction of Inspired Oxygen 21 SaO2/FiO2 Ratio 466 Oxygen Delivery Method Trach Collar Oxygen Flow Rate 6 Narrative Exam Narrative: NAD, awake and not really speaking. No distress. Chronically ill in appearance. Skin is somewhat pale in appearance. PEG and trach. Normocephalic skull, EOMI, anicteric sclera, symmetric pupils. Oropharynx unremarkable, no droop. Neck supple, midline trachea, no adenopathy. Lungs clear, normal rate and effort. Markedly Decreased breath sounds on the left side. Heart regular, no murmur gallop or rub. Abdomen is soft, non distended and non tender. Extremities are free of edema. Skin is free of rash or lesions. Joints are not swollen or deformed. Objective Labs 07/17/24 10:00 07/17/24 10:00 Labs: Laboratory Results - last 24 hr 07/17/24 10:00 WBC 3.2 L RBC 3.85 L Hgb 9.3 L Hct 28.4 L MCV 73.8 L MCH 24.2 L MCHC 32.8 RDW 16.6 H Plt Count 406 H Neut % (Auto) 49.9 L Lymph % (Auto) 31.6 [place] % (Auto) 10.9 Eos % (Auto) 6.8 H Baso % (Auto) 0.8 Neut # (Auto) 1600 Lymph # (Auto) 1000 L [place] # (Auto) 400 Eos # (Auto) 200 Baso # (Auto) 0 Sodium 130 L Potassium 4.5 Chloride 103 Carbon Dioxide 24 BUN 11 Creatinine 0.25 L Estimated GFR > 60 BUN/Creatinine Ratio 44.0 H Glucose 74 Calcium 8.0 L [facility] Medical History History of pulmonary embolism Status post radiation therapy Chronic anticoagulation Tracheostomy in place Sacral decubitus ulcer, stage III Protein calorie malnutrition Hyponatremia Dysphagia Recurrent aspiration pneumonia Depression, major, recurrent Jejunostomy tube present Influenza A Anemia Pneumonia 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 Father No problems noted. Social History marital status: unmarried,single details: Lives independantly with part-time caregivers household members: none lives independently: Yes occupational status: disabled Smoking Status: Former smoker alcohol intake: never substance use type: marijuana Assessment & Plan Assessment & Plan narrative: 1. PNA (RUSLAN+LLL), present on admission and active. 2. Acute Hypoxemic Respiratory Failure, present on admission and improving. 3. Rhinoviral URI, present on admission and active. 4. Remote PE, stable. Neg CTA. - Eliquis 5. Depression, stable. - Zoloft 6. Cerebral Palsy, stable. - Baclofen for spasticity 7. Hyponatremia, present on admission and active. PLAN: -continue cefepime, vancomycin discontinued given no MRSA on cultures. -Pulmonology consulting today, discussed with semiautomatic stitcher operator today and plan for bronchoscopy this afternoon. CXR ordered for today to make sure opacification is still present. -droplet precautions for rhino virus -continue chronic medications. -continue home tube feeds after bronchoscopy. Inpatient, home. Midline placed 07/16. Will need cefepime 2g q8 until 07/22/2024. Likely discharge tomorrow after bronchoscopy. Full resuscitation. Mother is proxy decision maker. Time-Based Coding :: [TOTAL MINUTES] spent with patient and on the chart (including review of chart, obtaining history, exam, reviewing outside data, placing orders, documenting exam and treatment plan, and counseling patient) on [DATE]. Quality VTE Deep Vein Thrombosis/Pulmonary Embolism Present on Admission: No
--- NOTE | 2024-07-17 11:37 | PM.PN.1 ---
Subjective Subjective Date Patient Seen: 07/17/24 Time Patient Seen: 11:37 Interval history: I was asked to evaluated with patient for possible bronchoscopy. The patient is a 44 year man with cerebral palsy with chronic respiratory insufficiency requiring tracheostomy. Automated hypoxemia diagnosed with pneumonia. Tracheal aspirate grew out Pseudomonas. He has been antibiotic therapy with cefepime. His hypoxemia has resolved however chest x-ray have demonstrated persistent left-sided opacification. Exam Vital Signs (past 8 hours): - 07/17/24 05:29 07/17/24 08:00 07/17/24 11:29 Temperature 98.3 F Pulse Rate 74 Respiratory Rate 18 Blood Pressure 99/66 Pulse Oximetry 97 97 98 Oxygen Delivery Method Trach Collar Oxygen Flow Rate 6 6 Fraction of Inspired Oxygen 23 Fraction of Inspired Oxygen 23 SaO2/FiO2 Ratio 426 Oxygen Delivery Method Trach Collar Oxygen Flow Rate 6 Const General: comfortable HENMT Other: Tracheostomy with trach collar Resp Other: Decreased crackles of the left hemithorax. No wheezes or crackles. Cardio Rate: regular rate Rhythm: regular rhythm Neuro General: patient awake Objective Labs 07/17/24 10:00 07/17/24 10:00 Labs: Laboratory Results - last 24 hr 07/17/24 10:00 WBC 3.2 L RBC 3.85 L Hgb 9.3 L Hct 28.4 L MCV 73.8 L MCH 24.2 L MCHC 32.8 RDW 16.6 H Plt Count 406 H Neut % (Auto) 49.9 L Lymph % (Auto) 31.6 [place] % (Auto) 10.9 Eos % (Auto) 6.8 H Baso % (Auto) 0.8 Neut # (Auto) 1600 Lymph # (Auto) 1000 L [place] # (Auto) 400 Eos # (Auto) 200 Baso # (Auto) 0 Sodium 130 L Potassium 4.5 Chloride 103 Carbon Dioxide 24 BUN 11 Creatinine 0.25 L Estimated GFR > 60 BUN/Creatinine Ratio 44.0 H Glucose 74 Calcium 8.0 L [facility] Medical History History of pulmonary embolism Status post radiation therapy Chronic anticoagulation Tracheostomy in place Sacral decubitus ulcer, stage III Protein calorie malnutrition Hyponatremia Dysphagia Recurrent aspiration pneumonia Depression, major, recurrent Jejunostomy tube present Influenza A Anemia Pneumonia 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 Father No problems noted. Social History marital status: unmarried,single details: Lives independantly with part-time caregivers household members: none lives independently: Yes occupational status: disabled Smoking Status: Former smoker alcohol intake: never substance use type: marijuana Assessment & Plan Assessment and plan (1) Pneumonia: Problem details: Due to Pseudomonas. On antibiotic therapy with cefepime. Qualifiers: Pneumonia type: due to Pseudomonas Status: Acute Plan: Recommend continuation of antibiotics and complete 10 day course. (2) Acute hypoxemic respiratory failure: Status: Acute Plan: Left hemithorax opacification most likely due to mucus plugging. Obtain chest x-ray today which demonstrates stable imaging with still persistent left-sided whiteout. Would recommend proceeding with bronchoscopy. I called his mother Marianela and discssed bronchoscopy and risks and alternatives. Consent was obtained over phone. Patient was NPO. We will try to schedule it for this afternoon based on OR availability. Time-Based Coding :: [TOTAL MINUTES] spent with patient and on the chart (including review of chart, obtaining history, exam, reviewing outside data, placing orders, documenting exam and treatment plan, and counseling patient) on [DATE]. Quality VTE Deep Vein Thrombosis/Pulmonary Embolism Present on Admission: No
--- NOTE | 2024-07-17 15:07 | PC.NURSE ---
Pt prepared for OR bronchioscopy and BIOLOGICAL SCIENCE TECHNICIAN FISH took Pt down, left with chart
--- NOTE | 2024-07-17 15:21 | SUR.HOLD ---
Verbal consent obtained via telephone with Marianela Paulino, mother of patient, by anesthesia provider and Outside Sales Consultant; Marianela Paulino, mother, at [phone].
--- NOTE | 2024-07-17 15:40 | SUR.OPER ---
Supine on hospital bed. Arms at sides. Feet floated off of bed with pillows.
--- NOTE | 2024-07-17 15:50 | DI.RAD.S_ITS ---
PROCEDURE: XR CHEST 1V INDICATIONS: left atelectasis TECHNIQUE: One view of the chest was acquired. COMPARISON: [facility], CR, XR CHEST 1V, 07/17/2024, 11:13. FINDINGS: Surgical changes and devices: Tracheostomy tube is again seen. Lungs and pleura: Complete opacification of left hemithorax is seen with air bronchogram suggestive of left lung atelectasis versus infiltrates. Underlying left-sided pleural effusion is also likely present. No pneumothorax. Right lung is clear. Mediastinum: Mediastinal contours appear normal. Heart size is normal. Bones and chest wall: No suspicious bony lesions. Overlying soft tissues appear unremarkable. IMPRESSION: Persistent left lung atelectasis. Underlying left-sided pleural effusion cannot be excluded. No pneumothorax. Right lung is clear. Dictated by: Jarocho Garzon M.D. on 07/17/2024 at 16:29 Approved by: Jarocho Garzon M.D. on 07/17/2024 at 16:30
--- NOTE | 2024-07-17 16:13 | P.DS_ITS ---
History of Present Illness History of Present Illness Date Patient Seen: 07/17/24 Time Patient Seen: 16:13 Chief complaint: resp. distress Narrative: From night doctor: 44 y/o with PMH of cerebral palsy, impaired mobility and spastic hemiparesis, dysphagia, tracheostomy, PEG, wheelchair-dependent, lives alone with caregiver visits, who presented today with shortness of breath, hypoxemic with completeley opacified Lt lung on CXR and CT. Without evidence of mucous plugging or endobronchial mass. Apart from significant hypoxemia at rest, he has no fever, chills, leukocytosis. Borderline hypotensive, not tachycardic. For possible aspiration PNA he was covered broadly and admitted on collar tacker. Additional information: The patient was nonverbal. The patient was also no distress. All counts from the admitting physician emergency physician reviewed. Discharge Providers Provider Date of admission: 07/13/24 05:34 Discharge Date: 07/17/24 Primary care physician: Chucky Marshall MD Consults: 07/13/24 12:42 Consult to Dietitian, Adult Routine Comment: Reason For Exam: resume chronic tube feeds 07/15/24 08:41 Consult to Home Health Routine Comment: Reason For Exam: Home health upon discharge 07/17/24 08:00 Consult to Pulmonology Routine Comment: Consulting Provider: Steve Pulmonology Reason for consultation: bronchoscopy Has provider been notified: Yes Discharge provider: Trung Gupta DO Summary Hospital Course Discharge Diagnosis: 1. PNA (RUSLAN+LLL), present on admission and active. 2. Acute Hypoxemic Respiratory Failure, present on admission and improving. 3. Rhinoviral URI, present on admission and active. 4. Remote PE, stable. Neg CTA. 5. Depression, stable. 6. Cerebral Palsy, stable. 7. Hyponatremia, present on admission and active. Hospital Course: This is a 44 year old male with CP, admitted with acute hypoxic respiratory failure due to combination of rhinovirus and pseudomonas pneumonias, along with mucous plugging of his left lung. He was initially on cefepime and vancomycin, with improvement overall. His hypoxia resolved fairly quickly but he had continued opacification of his left lung on imaging. His cultures did reveal pseudmonas, cefepime was continued and due to fluoroquinolone allergy he will continue on IV cefepime on discharge. Last date of therapy for pneumonia will be on 07/22/2024. Bronchscopy was performed on the day of discharge, there was not much change in imaging findings though quite a bit of secretions were removed from his left lung. 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 Time Spent with Patient Time spent: Greater than 30 minutes Exam Vital Signs (past 8 hours): - 07/17/24 11:29 07/17/24 12:00 07/17/24 15:17 Temperature 97.2 F L Pulse Rate 74 Respiratory Rate 20 Blood Pressure 103/70 Pulse Oximetry 98 97 96 Oxygen Delivery Method Trach Collar Room Air Oxygen Flow Rate 6 Fraction of Inspired Oxygen 23 Fraction of Inspired Oxygen 23 SaO2/FiO2 Ratio 426 Oxygen Delivery Method Room Air Oxygen Flow Rate 6 Narrative Exam Narrative: NAD, awake and not really speaking. No distress. Chronically ill in appearance. Skin is somewhat pale in appearance. PEG and trach. Normocephalic skull, EOMI, anicteric sclera, symmetric pupils. Oropharynx unremarkable, no droop. Neck supple, midline trachea, no adenopathy. Lungs clear, normal rate and effort. Markedly Decreased breath sounds on the left side. Heart regular, no murmur gallop or rub. Abdomen is soft, non distended and non tender. Extremities are free of edema. Skin is free of rash or lesions. Joints are not swollen or deformed. Objective Labs 07/17/24 10:00 07/17/24 10:00 Labs: Laboratory Results - last 24 hr 07/17/24 10:00 WBC 3.2 L RBC 3.85 L Hgb 9.3 L Hct 28.4 L MCV 73.8 L MCH 24.2 L MCHC 32.8 RDW 16.6 H Plt Count 406 H Neut % (Auto) 49.9 L Lymph % (Auto) 31.6 [place] % (Auto) 10.9 Eos % (Auto) 6.8 H Baso % (Auto) 0.8 Neut # (Auto) 1600 Lymph # (Auto) 1000 L [place] # (Auto) 400 Eos # (Auto) 200 Baso # (Auto) 0 Sodium 130 L Potassium 4.5 Chloride 103 Carbon Dioxide 24 BUN 11 Creatinine 0.25 L Estimated GFR > 60 BUN/Creatinine Ratio 44.0 H Glucose 74 Calcium 8.0 L [facility] Medical History History of pulmonary embolism Status post radiation therapy Chronic anticoagulation Tracheostomy in place Sacral decubitus ulcer, stage III Protein calorie malnutrition Hyponatremia Dysphagia Recurrent aspiration pneumonia Depression, major, recurrent Jejunostomy tube present Influenza A Anemia Pneumonia 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 Father No problems noted. Social History marital status: unmarried,single details: Lives independantly with part-time caregivers household members: none lives independently: Yes occupational status: disabled Smoking Status: Former smoker alcohol intake: never substance use type: marijuana Discharge Plan Discharge Plan Patient Disposition: Home Provider Discharge Comment: You were admitted to the hospital with pneumonia and low oxygen. Cultures grew out pseudomonas, because of your allergy profile you need IV antibiotics for a few more days after discharge. Your left lung had mucous plugs, and you had bronchoscopy with financial services internship. There is still a fair amount of deep secretions in your left lung, they did recommend following up with your pulmonologists for repeat imaging and possible additional bronchoscopy in the near future Discharge orders & Medications Prescriptions: New cefepime in dextrose 5 % 2 gram/50 mL piggyback 2 g IV Q8H 5 Days Qty: 18 0RF Rx Instructions: End Date 07/22/24 Continued (DME) XL mattress for semi-electric hospital bed See Rx Instructions .Route .MEDSUPPLY Qty: 1 0RF Rx Instructions: use daily as directed (DME) Disabled Parking Qty: 1 0RF Rx Instructions: I find this patient to be medically disabled and qualified for Disabled Parking as indicated, and signed, on the Accompanying Disabled Parking Application for Individuals ferrous sulfate 325 mg (65 mg iron) tablet 130 mg PO DAILY Hold Instructions: on J tube baclofen 5 mg/5 mL solution 5 mg PO DAILY Qty: 473 3RF Rx Instructions: Give 5mL via J-tube (DME) Battery Powered Lift Qty: 1 0RF Dose Instruction: As directed Rx Instructions: Use daily as directed for transfers to and from bed (DME) Power Chair tall Qty: 1 0RF Dose Instruction: As directed Rx Instructions: As directed for patient care with activities of daily living. Chair needs to tilt foreword and tilt backwards for patient care. Pt is 6 feet tall and will need to fit height. (DME) Shower Chair Qty: 1 0RF Rx Instructions: As directed for patient care with activities of daily living. Chair needs to tilt foreword and tilt backwards for patient care. Pt is 6 feet tall and will need to fit height. Eliquis 5 mg tablet 5 mg PO BID Qty: 60 12RF (DME) Semi-electric hospital bed Qty: 1 0RF Dose Instruction: As directed Rx Instructions: Semi-electric hospital bed to permit transfers to wheelchair and to attach traction equipment. Must be large enough and long enough to accommodate his height and weight. EDEN: 99 months (DME) Mattress See Rx Instructions .Route .MEDSUPPLY Qty: 1 0RF Rx Instructions: Long mattress for hospital bed (DME) suction catheter See Rx Instructions .Route .MEDSUPPLY Qty: 1 0RF Rx Instructions: Yankauer suction catheter (or equivalent) equipement and disposable scopolamine base 1 mg over 3 days patch 3 day 1 patch topical Q3D (DME) BD Luer-Rafael Syringe 3 mL 20 gauge x 1 syringe See Rx Instructions .ROUTE .MEDSUPPLY Qty: 1 Patient Comments: USE FOR MUCOMYST Rx Instructions: As directed sertraline 100 mg tablet 200 mg PO DAILY Qty: 60 5RF Follow up/Referrals: Chucky Marshall MD [Primary Care Provider] - Diet/Activity/Treatments Diet: Diet as Tolerated and Tube Feeding Activity: No restrictions Visit Report/Discharge Packet Stand Alone Forms: Patient Portal/API, Stroke Signs & Symptoms Discharge Data Primary Care Provider: Chucky Marshall V Quality VTE Deep Vein Thrombosis/Pulmonary Embolism Present on Admission: No
--- NOTE | 2024-07-17 16:34 | SUR.PHASEI ---
Patient was recovered from anesthesia per EARNEST Santacruz. Report was called by Christina to the floor. Patient transferred to the floor, from the procedure room, with EARNEST present. Report given to Minerva Dalton by EARNEST.
--- NOTE | 2024-07-17 16:35 | PM.PROC.1 ---
Procedures Date/Time Date of procedure: 07/17/24 Time of procedure: 15:30 General Procedure description: Bronchoscopy Prior to procedure pause was performed. Consent verified with mother. Patient received deep sedation with propofol by anesthesia. Bronchoscope was inserted through tracheostomy via adapter. Examination of the airways demonstrated normal distal trachea and jessy. There were significant amount of thick tenacious secretions the left mainstem bronchus which was suctioned out. They continue to extend into the lingula and left lower lobe bronchi. All secretions were suctioned out. Saline was used to break the secretions up. All airways were visible. There are no bronchial lesions. Right-sided airways appeared to be normal with no significant secretions. Patient tolerated the procedure well. Complications: none
--- NOTE | 2024-07-17 18:39 | PC.NURSE ---
Applied breif to Pt, dressed and lifted to chair, discharge instructions given to mom, Rx hard copy given, all belongings with Pt, follow up instructions given, reviewed stroke education, no further questions, Pt left in chair.
--- NOTE | 2024-07-18 08:18 | CM.DPNOTE ---
Addendum entered by ARIC Dougherty 07/18/24 13:33: LISBETH Larry, has updated [facility], F2F and HH order emailed to Thea at [facility]. Original Note: Post Discharge Note Patient discharged after this [employer] left for the day yesterday. Before leaving, updated provider, RN and family that [facility] had accepted this referral and was providing bedside teaching at [address] Marshall agreed to follow the abx orders for [facility] through the abx stop date of 07/22 [facility] updated with patient's likely discharge yesterday. Rx for IV cefepime emailed to Jeremias at [facility]. Discharge plan: Discharge home w/family and caregivers via private transport, [facility] to follow for EVA RN, [facility] for IV cefepime, [facility] for trach supplies and [facility] for peg tube feeds. GUILLE
== END 2024-07-17 18:43 | disposition home health service (06) | DRG 177 ==
LOC: ED 05:28 → AC 05:36 → ICU 05:52 → AC 07-16 16:26
PROVIDERS: Internal Medicine; Internal Medicine Critical Care Medicine; Admitting Provider Internal Medicine; Emergency Provider Emergency Medicine; PCP Internal Medicine; Referring Provider Emergency Medicine; Visit Provider Internal Medicine
PROC: 0BJ08ZZ Inspection of Tracheobronchial Tree, Via Natural or Artificial Opening Endoscopic (ICD-10-PCS; CPT 31622; principal; 2024-07-17 15:45)
DX: J15.1 Pneumonia due to Pseudomonas (principal); J96.01 Acute respiratory failure with hypoxia; E87.1 Hypo-osmolality and hyponatremia; T17.890A Other foreign object in other parts of respiratory tract causing asphyxiation, initial encounter; G80.9 Cerebral palsy, unspecified; F33.41 Major depressive disorder, recurrent, in partial remission; D64.9 Anemia, unspecified; B34.8 Other viral infections of unspecified site; W44.F9XA Other object of natural or organic material, entering into or through a natural orifice, initial encounter; Z79.01 Long term (current) use of anticoagulants; Z86.711 Personal history of pulmonary embolism; Z87.891 Personal history of nicotine dependence; Z99.3 Dependence on wheelchair; Z93.0 Tracheostomy status; Z93.1 Gastrostomy status; Z86.14 Personal history of Methicillin resistant Staphylococcus aureus infection
CPT/HCPCS: 31624; 36415; 71045; 71275; 80048; 80053; 80202; 82550; 82962; 83605; 83690; 84484; 85025; 87040; 87070; 87077; 87186; 87205; 87633; 87797; 93005; 94640; 94799; 96365; 96366; 96367; 99232; 99284; 99291; J0692; J1642; J2704; J7613; Q9967

== ENCOUNTER → 2024-11-06 12:25 | Outpatient (CLI) | payer MEDICAID, OTHER, SELFPAY ==
[2023-04-04 11:09] VITALS: PULSE 89; RESP 16; O2SAT 100
[2024-07-13 06:48] VITALS: BMI 23.0
--- NOTE | 2024-11-06 12:27 | DI.RAD.S_ITS ---
PROCEDURE: XR CHEST 2V INDICATIONS: pneumonia followup TECHNIQUE: 2 views of the chest were acquired. COMPARISON: [facility], CR, XR CHEST 1V, 07/17/2024, 15:57. FINDINGS: Heart, mediastinum and pulmonary vascular: Heart is normal in size and configuration. Mediastinum is unremarkable. Pulmonary vascular is normal. Tracheostomy in stable satisfactory position Lung/pleural spaces: Large left pleural effusion noted. There is moderate airspace disease throughout the left lung with associated moderate volume loss compatible with partial left lung atelectasis. Right lung is well expanded and clear. Bones and soft tissues: Normal IMPRESSION: Partial atelectasis of the left lung with large left pleural effusion. Consider therapeutic left thoracentesis immediately followed by chest CT to evaluate for bronchial obstruction pathology Dictated by: Daniel Mane M.D. on 11/07/2024 at 11:14 Approved by: Daniel Mane M.D. on 11/07/2024 at 11:17
[2024-11-06 14:09] LABS: Hematocrit 34.3 % (41-53); Hemoglobin 11.2 g/dL (13.5-17.5); Mean Corpuscular HGB Conc 32.7 % (30-36); Mean Corpuscular Hemoglobin 24.8 PG (26-34); Mean Corpuscular Volume 75.7 fL (80-100); Platelet Count 375 X10^3/uL (150-400); Red Blood Cell Count 4.53 X10^6/uL (4.5-5.9); Red Cell Distribution Width 16.8 % (11.6-14.8); White Blood Cell Count 7.5 X10^3/uL (4.5-11.0)
[2024-11-06 14:29] LABS: HEMOLYSIS 36 (0-50); Iron 30 ug/dL (49-181)
[2024-11-06 14:30] LABS: Alanine Aminotransferase 7 IU/L (<50); Albumin 3.3 g/dL (3.5-5.0); Albumin Globulin Ratio 1.1 (1.0-2.8); Alkaline Phosphatase 76 U/L (38-126); Aspartate Aminotransferase 23 IU/L (17-59); BUN Creatinine Ratio 41.4 (6-22); Bilirubin Total 0.4 mg/dL (0.2-1.3); Blood Urea Nitrogen 12 mg/dL (9-20); Calcium 8.5 mg/dL (8.4-10.2); Carbon Dioxide 21 mmol/L (22-32); Chloride 97 mmol/L (98-107); Estimated Glomerular Filt Rate > 60 mL/min (>60); Glucose 51 mg/dL (70-100); HEMOLYSIS 21 (0-50); Potassium 4.3 mmol/L (3.4-5.1); Sodium 128 mmol/L (137-145); Total Protein 6.3 g/dL (6.3-8.2)
[2024-11-06 14:40] LABS: Percent Iron Saturation 17 % (20-50); Total Iron Binding Capacity 172 ug/dL (261-462); Transferrin 133 mg/dL (206-381)
[2024-11-06 14:47] LABS: Vitamin D 25 Hydroxy (D3) 30.8 ng/mL (30.0-100.0)
[2024-11-06 15:05] LABS: Ferritin 294 ng/mL (18-464)
[2024-11-06 15:20] LABS: Vitamin B12 > 1000 pg/mL (239-931)
== END ==
PROVIDERS: PCP Internal Medicine; Referring Provider Internal Medicine; Visit Provider Internal Medicine
DX: J90 Pleural effusion, not elsewhere classified (principal); J98.11 Atelectasis; D50.9 Iron deficiency anemia, unspecified; E56.9 Vitamin deficiency, unspecified; J18.9 Pneumonia, unspecified organism; E46 Unspecified protein-calorie malnutrition
CPT/HCPCS: 36415; 71046; 80053; 82306; 82607; 82728; 83540; 83550; 85027

== ENCOUNTER 2024-11-21 17:53 | Emergency (ER) | payer MEDICAID, OTHER, SELFPAY ==
[2023-04-04 11:09] VITALS: PULSE 89; RESP 16; O2SAT 100
[2024-07-13 06:48] VITALS: BMI 23.0
[2024-11-21] VITALS (28 sets, daily range): BP systolic 85–112; BP diastolic 56–76; PULSE 83–99; RESP 16–25; TEMP 36.5; O2SAT 88–100
--- NOTE | 2024-11-21 17:52 | DI.RAD.S_ITS ---
PROCEDURE: XR CHEST 1V INDICATIONS: chest pain TECHNIQUE: One view of the chest was acquired. COMPARISON: [facility], CR, XR CHEST 2V, 11/06/2024, 12:23. [facility], CR, XR CHEST 1V, 07/17/2024, 15:57. [facility], CR, XR CHEST 1V, 07/17/2024, 11:13. [facility], CR, XR CHEST 1V, 07/14/2024, 10:48. [facility], CT, CT ANGIO CHEST PE PROTOCOL, 07/13/2024, 3:52. FINDINGS: Surgical changes and devices: Tracheostomy tube at the level of the thoracic inlet. Lungs and pleura: No significant change in left lower lobe collapse and retraction of the left hemidiaphragm. Diffuse reticulated opacification throughout the left lung parenchyma. Small bilateral pleural effusions. No pneumothorax. Mediastinum: Mediastinal contours appear normal. Heart size is normal. Bones and chest wall: Diffuse osseous demineralization. No suspicious bony lesions. Overlying soft tissues appear unremarkable. IMPRESSION: No significant change in the left lower lobe and lingular collapse with small bilateral pleural effusions. Dictated by: Jack Henderson M.D. on 11/21/2024 at 18:29 Approved by: Jack Henderson M.D. on 11/21/2024 at 18:32
--- NOTE | 2024-11-21 18:00 | EKG_ITS ---
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
--- NOTE | 2024-11-21 18:07 | ED.GENADULT ---
HPI - General Adult General Chief complaint: Shortness of Breath/Dyspnea Stated complaint: hypoxia Time Seen by Provider: 11/21/24 18:07 History of Present Illness HPI narrative: 44-year-old male with history of pseudobulbar palsy, spastic left hemiparesis, tracheostomy, feeding tube, history of recurrent aspiration pneumonia, prior Pseudomonas pneumonia June 2024 admission, at home found to have increased work of breathing, lower oxygenation, more secretions from family suctioning of tracheostomy site, concern for possible pneumonia again. Arrival by EMS. Family members have not yet arrived, POLST information not yet available. We will presume full code status for now. Related Data Home Medications Medication Instructions Recorded Confirmed ferrous sulfate 325 mg (65 mg 130 mg PO DAILY 10/29/21 10/31/24 iron) tablet scopolamine base 1 mg over 3 days 1 patch topical Q3D 08/10/23 10/31/24 transdermal patch syringe with needle 3 mL 20 gauge #1 08/10/23 07/26/24 x 1 (BD Luer-Rafael Syringe) Previous Rx's Medication Instructions Recorded Battery Powered Lift #1 03/02/18 Power Chair #1 10/16/18 Disabled Parking #1 01/15/19 Shower Chair #1 07/04/19 XL mattress for semi-electric #1 ea 09/27/22 hospital bed baclofen 5 mg/5 mL oral solution 5 mg (5 mL) PO DAILY #473 mL 01/20/23 suction catheter #1 04/06/23 Mattress #1 ea 03/28/24 Semi-electric hospital bed #1 03/28/24 apixaban 5 mg tablet (Eliquis) 5 mg PO BID #60 tabs 08/15/24 sertraline 100 mg tablet 200 mg (2 x 100 mg) PO DAILY #60 10/12/24 tabs Allergies Allergy/AdvReac Type Severity Reaction Status Date / Time Penicillins [PENICILLINS] Allergy Severe RASH Verified 11/21/24 18:09 levofloxacin Allergy Intermediate Rash Verified 11/21/24 18:09 Patient History Medical History (Updated 11/22/24 @ 01:29 by Parth Hudson MD) Iron deficiency anemia History of pulmonary embolism Status post radiation therapy Chronic anticoagulation Tracheostomy in place Sacral decubitus ulcer, stage III Protein calorie malnutrition Hyponatremia Dysphagia Recurrent aspiration pneumonia Depression, major, recurrent Jejunostomy tube present Influenza A Anemia Pneumonia 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 Father No problems noted. Social History marital status: unmarried,single details: Lives independantly with part-time caregivers household members: none lives independently: Yes occupational status: disabled Smoking Status: Former smoker alcohol intake: never substance use type: marijuana Smoking Status: Former smoker alcohol intake frequency: 0-2 drinks per day Exam Narrative Exam Narrative: GENERAL: Well-developed patient, in mild distress. HEAD: Atraumatic. Normocephalic. EYES: Pupils equal round and reactive. Extraocular motions intact. No scleral icterus. No injection or drainage. ENT: Nose without bleeding, purulent drainage. Throat without erythema, tonsillar hypertrophy or exudate. Airway patent. NECK: Trachea midline. Non tender. Anterior tracheostomy site, site looks clean. Being suctioned by respiratory therapy. CARDIOVASCULAR: Regular rate and rhythm without murmurs, gallops, or rubs. RESPIRATORY: Crackles bilateral. No retractions, wheeze. GASTROINTESTINAL: Abdomen soft, non-tender, nondistended. Mid upper central abdominal feeding tube, site looks clear, no redness or discharge or tenderness. Abdomen nondistended with normal bowel tones. EXTREMITIES: No edema or joint tenderness. BACK: Nontender without deformity or crepitance. No flank tenderness. NEURO: Patient with tracheostomy in place, he can whisper speech to some degree, nods yes and shakes head no to answers. Left hemiparesis noted. Moving right arms and legs, no facial droop obvious, pupils equal round reactive to light, extraocular functions conjugate normal. SKIN: No rash or erythema of visible areas Initial Vital Signs Initial Vital Signs: Vital Signs Pulse Rate 91 H 11/21/24 17:57 Pulse Oximetry 94 11/21/24 17:57 Course Orders Ordered: ED Orders 11/21/24 20:17 CT angio chest PE protocol Stat 11/21/24 20:18 CT abdomen pelvis w con Stat 11/22/24 00:35 Venous Blood Gas STAT 11/22/24 00:46 Venous Blood Gas Routine 11/22/24 00:54 US abdomen limited Stat Discontinued Medications Apixaban (Apixaban 5 Mg Tablet) 5 mg TUBE NOW ONE Stop: 11/21/24 23:49 Last Admin: 11/22/24 00:09 Dose: 5 mg Documented By: NAIN Cefepime HCl 1 gm/ Sodium (Chloride) 100 mls @ 200 mls/hr IV NOW ONE Stop: 11/21/24 18:17 Last Infusion: 11/21/24 19:52 Dose: Infused Documented By: Admin: 11/21/24 18:32 Dose: 200 mls/hr Documented By: PORSCHE Vancomycin HCl/Dextrose (Vancomycin) 2,000 mg in 400 mls @ 200 mls/hr IV NOW ONE Stop: 11/21/24 20:29 Last Infusion: 11/21/24 21:51 Dose: Infused Documented By: Admin: 11/21/24 19:16 Dose: 200 mls/hr Documented By: AUGUSTO Sodium Chloride (Normal Saline 0.9%) 1,000 mls @ 1,000 mls/hr IV BOLUS ONE Stop: 11/21/24 21:18 Last Infusion: 11/21/24 21:51 Dose: Infused Documented By: Admin: 11/21/24 20:45 Dose: 1,000 mls/hr Documented By: NAIN Sodium Chloride (Normal Saline 0.9%) 1,000 mls @ 1,000 mls/hr IV BOLUS ONE Stop: 11/21/24 23:11 Last Infusion: 11/22/24 00:19 Dose: Infused Documented By: Admin: 11/21/24 22:30 Dose: 1,000 mls/hr Documented By: REECE Lactated Ringer's (Lactated Ringers) 1,000 mls @ 125 mls/hr IV CONT JOSE MANUEL Last Admin: 11/22/24 00:10 Dose: 125 mls/hr Documented By: NAIN Sodium Chloride (Normal Saline 0.9%) 1,000 mls @ 500 mls/hr IV BOLUS ONE Stop: 11/22/24 03:26 Last Admin: 11/22/24 02:44 Dose: 500 mls/hr Documented By: AUGUSTO Morphine Sulfate (Morphine 2 Mg/Ml Inj) 2 mg IV NOW ONE Stop: 11/22/24 02:42 Last Admin: 11/22/24 02:45 Dose: 2 mg Documented By: AUGUSTO Vital Signs Vital signs: Vital Signs - 8 hr 11/21/24 20:00 11/21/24 20:00 11/21/24 20:07 Pulse Rate 83 Respiratory Rate 23 Blood Pressure 86/59 L 88/56 L Pulse Oximetry 93 Oxygen Delivery Method Oxygen Flow Rate 11/21/24 20:07 11/21/24 20:15 11/21/24 20:15 Pulse Rate 85 83 Respiratory Rate 22 Blood Pressure 91/58 L Pulse Oximetry 93 93 Oxygen Delivery Method Oxygen Flow Rate 11/21/24 20:38 11/21/24 20:41 11/21/24 20:41 Pulse Rate 87 83 Respiratory Rate 22 Blood Pressure 85/58 L Pulse Oximetry 100 100 Oxygen Delivery Method Trach Collar Oxygen Flow Rate 10 11/21/24 20:44 11/21/24 21:00 11/21/24 21:00 Pulse Rate 83 83 Respiratory Rate 24 25 H Blood Pressure 85/58 L 89/61 L Pulse Oximetry 99 98 Oxygen Delivery Method Trach Collar Trach Collar Oxygen Flow Rate 10 11/21/24 21:30 11/21/24 21:31 11/21/24 21:31 Pulse Rate 97 H 99 H Respiratory Rate 24 Blood Pressure 112/76 Pulse Oximetry 90 L 88 L Oxygen Delivery Method Trach Collar Trach Collar Oxygen Flow Rate 10 10 11/21/24 22:00 11/21/24 22:01 11/21/24 22:01 Pulse Rate 90 90 Respiratory Rate 20 Blood Pressure 112/57 L Pulse Oximetry 97 97 Oxygen Delivery Method Room Air Room Air Oxygen Flow Rate 11/21/24 22:30 11/21/24 22:30 11/21/24 22:30 Pulse Rate 85 85 Respiratory Rate 23 23 Blood Pressure 106/57 L Pulse Oximetry 94 94 Oxygen Delivery Method Room Air Room Air Oxygen Flow Rate 11/21/24 23:00 11/21/24 23:00 11/21/24 23:30 Pulse Rate 83 88 Respiratory Rate 25 H 25 H Blood Pressure 99/70 Pulse Oximetry 96 95 Oxygen Delivery Method Oxygen Flow Rate 11/21/24 23:31 11/21/24 23:31 11/22/24 00:00 Pulse Rate 86 Respiratory Rate 23 Blood Pressure 107/72 95/66 Pulse Oximetry 96 Oxygen Delivery Method Oxygen Flow Rate 11/22/24 00:00 11/22/24 00:30 11/22/24 00:30 Pulse Rate 83 78 Respiratory Rate 26 H 23 Blood Pressure 84/59 L Pulse Oximetry 98 98 Oxygen Delivery Method Trach Collar Oxygen Flow Rate 9 11/22/24 01:00 11/22/24 01:00 11/22/24 01:07 Pulse Rate 79 79 Respiratory Rate 23 22 Blood Pressure 90/57 L 90/57 L Pulse Oximetry 96 97 Oxygen Delivery Method Oxygen Flow Rate 11/22/24 01:30 11/22/24 01:30 11/22/24 02:00 Pulse Rate 78 Respiratory Rate 23 Blood Pressure 90/62 93/68 Pulse Oximetry 95 Oxygen Delivery Method Oxygen Flow Rate 11/22/24 02:00 11/22/24 02:30 11/22/24 02:30 Pulse Rate 83 80 Respiratory Rate 22 22 Blood Pressure 92/62 Pulse Oximetry 99 99 Oxygen Delivery Method Oxygen Flow Rate 11/22/24 03:00 11/22/24 03:00 Pulse Rate 77 Respiratory Rate 19 Blood Pressure 91/62 Pulse Oximetry 99 Oxygen Delivery Method Oxygen Flow Rate Medical Decision Making Lab Data Lab results reviewed: Yes I reviewed the patient's lab results. Lab results narrative: White blood cell count 6000, hemoglobin 12.5, platelets adequate. Glucose 64. BUN 12 with creatinine 0.41. Sodium 135, potassium 4.0, chloride 99, serum CO2 24. 11/21/24 18:07 11/21/24 18:07 Labs: Lab Results 11/21/24 11/21/24 11/22/24 Range/Units 18:07 18:15 00:46 WBC 6.0 (4.5-11.0) X10^3/uL RBC 5.11 (4.5-5.9) X10^6/uL Hgb 12.5 L (13.5-17.5) g/dL Hct 39.0 L (41-53) % MCV 76.5 L (80-100) fL MCH 24.4 L (26-34) PG MCHC 32.0 (30-36) % RDW 17.1 H (11.6-14.8) % Plt Count 388 (150-400) X10^3/uL Neut % (Auto) 75.1 H (50-75) % Lymph % (Auto) 16.8 L (25-40) % [place] % (Auto) 3.8 (3-14) % Eos % (Auto) 3.9 (2-4) % Baso % (Auto) 0.4 (0-2) % Neut # (Auto) 4500 (4857-8151) /uL Lymph # (Auto) 1000 L (2464-6140) /uL [place] # (Auto) 200 (0-900) /uL Eos # (Auto) 200 (0-450) /uL Baso # (Auto) 0 (0-100) /uL VBG pH 7.30 L (7.33-7.43) VBG pCO2 52.1 H (45-50) mmHg VBG pO2 53 H (35-45) mmHg VBG HCO3 26 (24-28) mmol/L VBG Total CO2 25 (24-29) mmol/L VBG O2 Saturation 83 H (70-75) % VBG Base Excess -1.3 L (0-4) mmol/L Sodium 135 L (137-145) mmol/L Potassium 4.0 (3.4-5.1) mmol/L Chloride 99 (98-107) mmol/L Carbon Dioxide 24 (22-32) mmol/L BUN 12 (9-20) mg/dL Creatinine 0.41 L (0.66-1.25) mg/dL Estimated GFR > 60 (>60) mL/min BUN/Creatinine Ratio 29.3 H (6-22) Glucose 64 L (70-100) mg/dL Lactate 1.1 (0.7-2.1) mmol/L Calcium 8.8 (8.4-10.2) mg/dL Total Bilirubin 0.3 (0.2-1.3) mg/dL AST 25 (17-59) IU/L ALT 10 (<50) IU/L Alkaline Phosphatase 108 (38-126) U/L Total Creatine Kinase 37 L (55-170) U/L Troponin I < 0.012 (0.01-0.034) ng/mL Total Protein 8.2 (6.3-8.2) g/dL Albumin 4.1 (3.5-5.0) g/dL Globulin 4.1 (1.7-4.1) g/dL Albumin/Globulin Ratio 1.0 (1.0-2.8) Lipase 1366 H (23-300) U/L SARS-CoV-2 (PCR) Negative (Negative) Influenza A (RT-PCR) Flu a negative (NEGATIVE) Influenza B (RT-PCR) Flu b negative (NEGATIVE) RSV (PCR) Negative (Negative) Imaging Data Chest x-ray: Radiologist's Impression: [address] [address] XRay Report Signed Patient: Jonnie Christopehr MR#: [id number] : 1980 Acct:[id number] Age/Sex: 44 / M Date of Service: 11/21/24 Loc: ED Accession Number: [id number] Procedure: XR chest 1V Ordering Provider: Parth Hudson MD PROCEDURE: XR CHEST 1V INDICATIONS: chest pain TECHNIQUE: One view of the chest was acquired. COMPARISON: [facility], CR, XR CHEST 2V, 11/06/2024, 12:23. [facility], CR, XR CHEST 1V, 07/17/2024, 15:57. [facility], CR, XR CHEST 1V, 07/17/2024, 11:13. [facility], CR, XR CHEST 1V, 07/14/2024, 10:48. [facility], CT, CT ANGIO CHEST PE PROTOCOL, 07/13/2024, 3:52. FINDINGS: Surgical changes and devices: Tracheostomy tube at the level of the thoracic inlet. Lungs and pleura: No significant change in left lower lobe collapse and retraction of the left hemidiaphragm. Diffuse reticulated opacification throughout the left lung parenchyma. Small bilateral pleural effusions. No pneumothorax. Mediastinum: Mediastinal contours appear normal. Heart size is normal. Bones and chest wall: Diffuse osseous demineralization. No suspicious bony lesions. Overlying soft tissues appear unremarkable. IMPRESSION: No significant change in the left lower lobe and lingular collapse with small bilateral pleural effusions. Dictated by: Jcak Henderson M.D. on 11/21/2024 at 18:29 Approved by: Jack Henderson M.D. on 11/21/2024 at 18:32 Ultrasound right upper quadrant abdomen: Radiologist's Impression: [address] [address] Ultrasound Report Signed Patient: Jonnie Christopher MR#: [id number] : 1980 Acct:[id number] Age/Sex: 44 / M Date of Service: 11/22/24 Loc: ED Accession Number: [id number] Procedure: US abdomen limited Ordering Provider: Parth Hudson MD PROCEDURE: US ABDOMEN LIMITED INDICATIONS: lipasemia, GB sludge on CT TECHNIQUE: Real-time scanning was performed of the abdominal and retroperitoneal organs, with image documentation. COMPARISON: [facility], CT, CT ABDOMEN PELVIS W CON, 11/21/2024, 20:22. FINDINGS: Liver: Liver is normal in size and homogeneous in echotexture. Gallbladder: Stones are seen filling gallbladder lumen with a 1.5 cm stone near neck of gallbladder. Borderline gallbladder wall thickening measures up to 2.1 mm in thickness. No gross pericholecystic fluid. No sonographic Gabriel's sign. Biliary ducts: Intrahepatic bile ducts are non-dilated. Extrahepatic bile duct caliber measures 3.9 mm. Normal is 6-7 mm or less in diameter, or 10 mm or less post-cholecystectomy. Pancreas: Visualized portions of the pancreas are sonographically normal. Miscellaneous: No free abdominal fluid. IMPRESSION: Cholelithiasis with borderline gallbladder wall thickening. No pericholecystic fluid or sonographic Gabriel sign. Finding may represent chronic cholecystitis. No biliary ductal dilatation. Dictated by: Jarocho Garzon M.D. on 11/22/2024 at 1:50 Approved by: Jarocho Garzon M.D. on 11/22/2024 at 1:52 ECG Data Attestation: I personally reviewed and interpreted this ECG as follows: Interpretation: Normal sinus rhythm with rate of 90, no obvious ST segment elevation or depression changes. KY 130, QRS 78, QTC 469. MDM Narrative Medical decision making narrative: 44-year-old male with history of pseudobulbar palsy, spastic left hemiparesis, tracheostomy, feeding tube, recurrent aspiration pneumonia, prior pseudomonal pneumonia June 2024, with increased secretions from tracheostomy site at home, increased work of breathing, lower sats than usual. Arrival by EMS. Systolic blood pressure 90 noted, unclear baseline, family members not at bedside. Blood cultures requested, IV fluid bolus 1 L, lactate added. Labs pending. Chest x-ray pending. EKG shows normal sinus rhythm. Crackles on exam left and right side, some intercostal retractions no suprasternal retractions, nods yes and no to questions. RT at bedside aspirating from trachea, we will obtain humidified mask for better specimen. Sputum tracheal aspirate requested. History of allergies to penicillin and Levaquin noted. Prior June 2024 pneumonia tolerated vancomycin and cefepime, given in the emergency department. Microbiology review, 06/23/2002/06/2024, sputum then grew Pseudomonas aeruginosa, sensitive to cefepime, ceftazidime, ciprofloxacin, imipenem, levofloxacin, meropenem, tobramycin, Zosyn. Blood cultures requested. We will treat for pneumonia based on crackles and decreased sats and increased secretions. Lactate pending. White blood cell count pending. IV cefepime and IV vancomycin, regimen was tolerated June last year. Tracheal aspirate for sputum culture requested. Chest x-ray shows left-sided possible infiltrates, similar to prior study. Unclear acuity. IV antibiotics initiated for possible pneumonia coverage. Lipase elevated 1200. CT abdomen and pelvis with IV contrast. We will add CT angio chest imaging as well given hypoxia, though patient is on Eliquis. CT angio chest PE protocol. Impressions: ?Pulmonary emboli within segmental and subsegmental branches of the left upper load. No right-sided pulmonary emboli. No specific signs for right heart strain at this time. Cardiomegaly, no pericardial effusion. No thoracic aortic aneurysm or gross dissection. Fluid and debris within the left main bronchus extending to the left upper and left lower lobe bronchi which may represent inflammatory material within the bronchi. Underlying endobronchial neoplastic process can not be entirely excluded. Pulmonology follow up as recommended. Near-complete atelectasis of the left lower lobe and scattered subsegmental atelectasis/infiltrate in the left upper lobe. Right mild basilar dependent atelectasis. Small left pleural effusion. No pneumothorax. Mediastinal and hilar lymphadenopathy likely reactive in nature. Tracheostomy in place. Generalized anasarca.? see radiology report. CT abdomen and pelvis. Impressions: ?Cholelithiasis with CT findings concerning for acute cholecystitis. No gross biliary ductal dilatation. No gross abnormality is seen in the pancreas. Circumferential rectal wall thickening, concerning for infectious or inflammatory proctitis. No bowel obstruction. No other area of abnormal bowel wall thickening. No peritoneal free fluid or free air. Mild generalized anasarca.? See radiology report. We will contact hospitalist regarding admission here, versus transfer for pulmonology or other consultations as needed. 2245, case discussed with hospitalist Dr. Verdin, advises transfer to pulmonary capable facility not available here, might need endobronchial suctioning, also consultation regarding anticoagulation strategy given pulmonary emboli despite Eliquis anticoagulation. Case discussed with patient/mother, agree with need for transfer to higher level of care. Last Eliquis oral dose taken this morning, he has not yet had evening dose, we will defer regimen to pulmonary when pulmonary transfer/consultation arranged Possible transfer tomorrow [facility], no communication directly with pulmonology. Will give evening oral Eliquis dose crushed per G-tube. 0030, case discussed with Radhika Thomas intake nurse. 003, case discussed with [facility] hospitalist Dr Deluca, requests VBG, if patient is still here by morning would use heparin bolus then drip in anticipation of bronchoscopy tomorrow. Call back with [facility], they might be able to accept tonight depending on and need for respiratory support. [facility]BG performed, results relayed to [address] Ultrasound shows stone in cystic duct, none in common bile duct, without obvious inflammatory changes to the gallbladder wall, has borderline thickening, no pericholecystic changes, possibly consistent with chronic cholecystitis, see radiology report. Cefepime and vancomycin given before for pulmonary coverage, would be adequate coverage for cholecystitis if acute component suspected. No tenderness on examination abdomen. 0230, accepted for transfer to [facility] Dr. Deluca accepting, transportation to be arranged within the hour. Patient/family made aware. Critical Care Time Critical Care Time Critical Care Time: Yes Total Critical Care Time: 45 Attestation: The high probability of a clinically significant, sudden or life threatening deterioration of the [, abdominopelvic, gastrointestinal, cardiopulmonary, respiratory/tracheal/airway] system(s) required my full and direct attention, intervention and personal management. The aggregate critical care time was [45] minutes. This time is in addition to time spent performing reported procedures but includes the following: [x] Data Review and interpretation [x] Patient assessment and monitoring of vital signs [x] Documentation [x] Medication orders and management Discharge Plan Departure [facility]position[facility] Clinical Impression: Pneumonia, Chronic anticoagulation, Pulmonary embolism on left, History of tracheostomy, Elevated lipase Prescriptions: No Action (DME) XL mattress for semi-electric hospital bed See Rx Instructions .Route .MEDSUPPLY Qty: 1 0RF Rx Instructions: use daily as directed (DME) Disabled Parking Qty: 1 0RF Rx Instructions: I find this patient to be medically disabled and qualified for Disabled Parking as indicated, and signed, on the Accompanying Disabled Parking Application for Individuals ferrous sulfate 325 mg (65 mg iron) tablet 130 mg PO DAILY Hold Instructions: on J tube baclofen 5 mg/5 mL solution 5 mg PO DAILY Qty: 473 3RF Rx Instructions: Give 5mL via J-tube (DME) Battery Powered Lift Qty: 1 0RF Dose Instruction: As directed Rx Instructions: Use daily as directed for transfers to and from bed (DME) Power Chair tall Qty: 1 0RF Dose Instruction: As directed Rx Instructions: As directed for patient care with activities of daily living. Chair needs to tilt foreword and tilt backwards for patient care. Pt is 6 feet tall and will need to fit height. (DME) Shower Chair Qty: 1 0RF Rx Instructions: As directed for patient care with activities of daily living. Chair needs to tilt foreword and tilt backwards for patient care. Pt is 6 feet tall and will need to fit height. (DME) Semi-electric hospital bed Qty: 1 0RF Dose Instruction: As directed Rx Instructions: Semi-electric hospital bed to permit transfers to wheelchair and to attach traction equipment. Must be large enough and long enough to accommodate his height and weight. EDEN: 99 months (DME) Mattress See Rx Instructions .Route .MEDSUPPLY Qty: 1 0RF Rx Instructions: Long mattress for hospital bed Eliquis 5 mg tablet 5 mg PO BID Qty: 60 12RF sertraline 100 mg tablet 200 mg PO DAILY Qty: 60 5RF (DME) suction catheter See Rx Instructions .Route .MEDSUPPLY Qty: 1 0RF Rx Instructions: Kishoruer suction catheter (or equivalent) equipement and disposable scopolamine base 1 mg over 3 days patch 3 day 1 patch topical Q3D (DME) BD Luer-Rafael Syringe 3 mL 20 gauge x 1 syringe See Rx Instructions .ROUTE .MEDSUPPLY Qty: 1 Patient Comments: USE FOR MUCOMYST Rx Instructions: As directed Referrals: Chucky Marshall MD [Primary Care Provider] -
[2024-11-21 18:15] LABS: Add Manual Diff / Slide Review NO; Basophils Absolute Auto 0 /uL (0-100); Basophils Percent Auto 0.4 % (0-2); Eosinophils Absolute Auto 200 /uL (0-450); Eosinophils Percent Auto 3.9 % (2-4); Hemoglobin 12.5 g/dL (13.5-17.5); Lymphocytes Absolute Auto 1000 /uL (1100-4500); Lymphocytes Percent Auto 16.8 % (25-40); Mean Corpuscular Hemoglobin 24.4 PG (26-34); Mean Corpuscular Volume 76.5 fL (80-100); Monocytes Absolute Auto 200 /uL (0-900); Monocytes Percent Auto 3.8 % (3-14); Neutrophils Absolute Auto 4500 /uL (1500-7000); Neutrophils Percent Auto 75.1 % (50-75); Platelet Count 388 X10^3/uL (150-400); Red Blood Cell Count 5.11 X10^6/uL (4.5-5.9); Red Cell Distribution Width 17.1 % (11.6-14.8)
[2024-11-21 18:25] LABS: Alanine Aminotransferase 10 IU/L (<50); Albumin 4.1 g/dL (3.5-5.0); Alkaline Phosphatase 108 U/L (38-126); Aspartate Aminotransferase 25 IU/L (17-59); BUN Creatinine Ratio 29.3 (6-22); Bilirubin Total 0.3 mg/dL (0.2-1.3); Blood Urea Nitrogen 12 mg/dL (9-20); Calcium 8.8 mg/dL (8.4-10.2); Carbon Dioxide 24 mmol/L (22-32); Chloride 99 mmol/L (98-107); Creatine Kinase 37 U/L (55-170); Estimated Glomerular Filt Rate > 60 mL/min (>60); Globulin 4.1 g/dL (1.7-4.1); Glucose 64 mg/dL (70-100); HEMOLYSIS < 15 (0-50); Lipase 1366 U/L (23-300); Sodium 135 mmol/L (137-145); Total Protein 8.2 g/dL (6.3-8.2)
[2024-11-21 18:26] LABS: Lactate (Lactic Acid) 1.1 mmol/L (0.7-2.1)
[2024-11-21] MEDS: CEFEPIME 1 GM in SODIUM CHLORIDE 0.9% 100 ML IV (18:32)
[2024-11-21 18:37] LABS: Troponin I < 0.012 ng/mL (0.01-0.034)
[2024-11-21 18:58] LABS: Influenza A - CEPHEID Flu A NEGATIVE (NEGATIVE); Influenza B - CEPHEID Flu B NEGATIVE (NEGATIVE); Respiratory Syncytial Virus Negative (Negative)
[2024-11-21 18:59] LABS: COVID-19 CEPHEID 4-PLEX PCR Negative (Negative)
[2024-11-21] MEDS: VANCOMYCIN 2,000 MG/400 ML PIGGYBACK 200 MG IV (19:16)
--- NOTE | 2024-11-21 20:17 | DI.CT.S_ITS ---
PROCEDURE: CT ANGIO CHEST PE PROTOCOL INDICATIONS: hypoxia immobile, eval for PE TECHNIQUE: After the administration of intravenous contrast, 2 mm thick sections acquired from the pulmonary apices to the posterior costophrenic angles. 3-dimensional maximum intensity projection (MIP) coronal and sagittal reformats were then acquired through the thorax. For radiation dose reduction, the following was used: automated exposure control, adjustment of mA and/or kV according to patient size. COMPARISON: [facility], CT, CT ANGIO CHEST PE PROTOCOL, 07/13/2024, 3:52. FINDINGS: Image quality: Diagnostic. Pulmonary arteries: Pulmonary arteries are normal in size, and demonstrate intraluminal filling defect involving distal left main pulmonary artery extending to segmental and subsegmental branches of left upper lobe pulmonary artery new since previous study best seen on series 5, image 68 compared to previous study series 7, image 66. No filling defects are seen in right pulmonary arteries or left lower lobe pulmonary artery branches. Lower Neck: No enlarged lymph nodes. Tracheostomy tube is seen. Thyroid: No thyroid nodules which require sonographic follow up, per consensus guidelines. Axillae: No enlarged lymph nodes. Chest Wall: Generalized anasarca. Bones: No aggressive appearing bony lesions. Moderate dextroscoliosis of thoracic spine is seen. No acute vertebral body compression fracture. Lungs and Pleura: Compared to previous study, there is interval improvement in left upper lobe aeration with persistent near complete atelectasis of the left lower lobe and small infiltrate/atelectasis scattered in left upper lobe. Mild bronchiectasis in left upper lobe is seen. Mild right basilar atelectasis is seen. No pneumothorax. Small left pleural effusion is likely present. Fluid and debris is noted within left mainstem bronchus extending to left upper and lower lobe bronchi. Heart: Heart size is enlarged. No pericardial effusion. No specific signs of right heart strain is seen at this time. Thoracic Vessels: No aortic aneurysm. No gross aortic dissection. Mediastinum and Aniya: Enlarged lymph nodes are seen throughout mediastinum and bilateral hilar region Esophagus: No wall thickening. No hiatal hernia. Upper Abdomen: Visualized upper abdomen solid organs and bowel loops appear normal. IMPRESSION: 1. Pulmonary emboli within segmental and subsegmental branches of left upper lobe. No right-sided pulmonary emboli. 2. No specific signs for right heart strain at this time. Cardiomegaly, no pericardial effusion. No thoracic aortic aneurysm or gross dissection. 3. Fluid and debris within left mainstem bronchus extending to left upper and lower lobe bronchi which may represent inflammatory material within the bronchi. Underlying endobronchial neoplastic process cannot be entirely excluded. Pulmonology follow-up is recommended. 4. Near complete atelectasis of left lower lobe and scattered subsegmental atelectasis/infiltrate in left upper lobe. Mild right basilar dependent atelectasis. Small left pleural effusion. No pneumothorax. 5. Mediastinal and hilar lymphadenopathy likely reactive in nature. Tracheostomy in place. 6. Generalized anasarca. Findings were reported to Dr. Hudson in the ER at the time of dictation. Dictated by: Jarocho Garzon M.D. on 11/21/2024 at 21:01 Approved by: Jarocho Garzon M.D. on 11/21/2024 at 21:18
--- NOTE | 2024-11-21 20:18 | DI.CT.S_ITS ---
PROCEDURE: CT ABDOMEN PELVIS W CON INDICATIONS: lipase elevated, ?pancreatitis TECHNIQUE: After the administration of intravenous contrast, axial sections acquired from the lung bases to the pubic symphysis. Coronal and sagittal reformats were performed. For radiation dose reduction, the following was used: automated exposure control, adjustment of mA and/or kV according to patient size. COMPARISON: [facility], CT, CT ABDOMEN PELVIS W CON, 09/02/2020, 16:47. FINDINGS: Image quality: Diagnostic. Lower Chest: Please refer to CT angiogram of chest findings. ABDOMEN: Liver: No solid mass. Gallbladder: Calcified stone is seen in dependent portion of gallbladder lumen. There is gallbladder wall thickening and mild pericholecystic fluid. Biliary ducts: No biliary dilation. Pancreas: No ductal dilation. No discrete pancreatic mass or peripancreatic fluid collection. No significant peripancreatic inflammatory changes. Spleen: Size is within normal limits. Adrenal Glands: No adrenal nodules. Kidneys and Ureters: No hydronephrosis. No solid mass. No complex renal cystic lesion which requires follow up. Stomach and Bowel: There is no bowel obstruction. No abnormal bowel wall thickening or mesenteric fat stranding. No abscess collection. Peritoneum: No abnormal intraperitoneal fluid. No free air. Ventral Wall: No significant ventral hernia. Abdominal Nodes: No retroperitoneal or mesenteric adenopathy by size criteria. Vessels: Aorta and inferior vena cava are normal in size. PELVIS: Pelvic Organs: There is suggestion of circumferential rectal wall thickening concerning for proctitis. Bladder: No bladder wall thickening, accounting for underdistention. Pelvic Nodes: No enlarged lymph nodes. Miscellaneous: No inguinal hernias are seen. Generalized anasarca. Bones: No aggressive osseous abnormality. Scoliosis of thoracic and lumbar spine is seen. No acute vertebral body compression fracture. Osteoarthritic changes are noted throughout bony pelvis. IMPRESSION: 1. Cholelithiasis with CT findings concerning for acute cholecystitis. No gross biliary ductal dilatation. 2. No gross abnormality is seen in the pancreas. 3. Circumferential rectal wall thickening, concerning for infectious or inflammatory proctitis. No bowel obstruction. No other area of abnormal bowel wall thickening. No peritoneal free fluid or free air. 4. Mild generalized anasarca. Dictated by: Jarocho Garzon M.D. on 11/21/2024 at 21:18 Approved by: Jarocho Garzon M.D. on 11/21/2024 at 21:21
[2024-11-21] MEDS: SODIUM CHLORIDE 0.9% 1,000 ML 1000 ML IV ×2 (20:45→22:30)
--- NOTE | 2024-11-21 21:51 | PC.NURSE ---
Patient and patients mom indicated that suctioning was needed, this RN and RT Sandra performed deep tracheal suctioning, patient expresses relief of mucous
--- NOTE | 2024-11-21 23:53 | PC.NURSE ---
Significant moisture related skin break down noted to bilat buttocks and sacral area. Moisture barrier applied. Pt positioned to offload pressure.
[2024-11-22] VITALS (8 sets, daily range): BP systolic 84–95; BP diastolic 57–68; PULSE 77–83; RESP 19–26; O2SAT 95–99
[2024-11-22] MEDS: APIXABAN 5 MG TABLET TUBE (00:09)
[2024-11-22] MEDS: LACTATED RINGERS 1,000 ML 125 ML IV (00:10)
[2024-11-22 00:51] LABS: Base Excess VBG -1.3 mmol/L (0-4); HCO3 VBG 26 mmol/L (24-28); Oxygen Saturation VBG 83 % (70-75); PCO2 VBG 52.1 mmHg (45-50); PO2 VBG 53 mmHg (35-45); Total CO2 VBG 25 mmol/L (24-29)
--- NOTE | 2024-11-22 00:54 | DI.US.S_ITS ---
PROCEDURE: US ABDOMEN LIMITED INDICATIONS: lipasemia, GB sludge on CT TECHNIQUE: Real-time scanning was performed of the abdominal and retroperitoneal organs, with image documentation. COMPARISON: [facility], CT, CT ABDOMEN PELVIS W CON, 11/21/2024, 20:22. FINDINGS: Liver: Liver is normal in size and homogeneous in echotexture. Gallbladder: Stones are seen filling gallbladder lumen with a 1.5 cm stone near neck of gallbladder. Borderline gallbladder wall thickening measures up to 2.1 mm in thickness. No gross pericholecystic fluid. No sonographic Gabriel's sign. Biliary ducts: Intrahepatic bile ducts are non-dilated. Extrahepatic bile duct caliber measures 3.9 mm. Normal is 6-7 mm or less in diameter, or 10 mm or less post-cholecystectomy. Pancreas: Visualized portions of the pancreas are sonographically normal. Miscellaneous: No free abdominal fluid. IMPRESSION: Cholelithiasis with borderline gallbladder wall thickening. No pericholecystic fluid or sonographic Gabriel sign. Finding may represent chronic cholecystitis. No biliary ductal dilatation. Dictated by: Jarocho Garzon M.D. on 11/22/2024 at 1:50 Approved by: Jarocho Garzon M.D. on 11/22/2024 at 1:52
--- NOTE | 2024-11-22 01:30 | PC.NURSE ---
Report given to Adele GREER
[2024-11-22] MEDS: SODIUM CHLORIDE 0.9% 1,000 ML 500 ML IV (02:44)
[2024-11-22] MEDS: MORPHINE 2 MG/ML INJ IV (02:45)
--- NOTE | 2024-11-22 02:56 | PC.WOUNDPHOT ---
Coccyc and surrounding skin
--- NOTE | 2024-11-22 03:14 | PC.NURSE ---
Hospitalist declined due to his need to be seen by pulmonology. [facility], [facility], and [facility] were full. Left a vm for [facility], Radhika Thomas was trying to get ahold of pulmonology when we got an bed at [facility]. Adele also started to talk with [facility] about this pt bc it had been a while since hearing from other hospitals.
[2024-11-22 07:35] LABS: Acinetobacter calcoa-baumannii Not Detected (Not Detect); Bacteroides fragilis Not Detected (Not Detect); Candida albicans Not Detected (Not Detect); Candida auris Not Detected (Not Detect); Candida glabrata Not Detected (Not Detect); Candida krusei Not Detected (Not Detect); Candida parapsilosis Not Detected (Not Detect); Candida tropicalis Not Detected (Not Detect); Cryptococcus neoformans/gatti Not Detected (Not Detect); Enterobacter cloacae complex Not Detected (Not Detect); Enterobacterales Not Detected (Not Detect); Enterococcus faecalis Detected (Not Detect); Enterococcus faecium Not Detected (Not Detect); Haemophilus influenzae Not Detected (Not Detect); Klebsiella aerogenes Not Detected (Not Detect); Listeria monocytogenes Not Detected (Not Detect); Neisseria meningitidis Not Detected (Not Detect); Proteus species Not Detected (Not Detect); Pseudomonas aeruginosa Not Detected (Not Detect); Salmonella species Not Detected (Not Detect); Serratia marcescens Not Detected (Not Detect); Staphylococcus epidermidis Detected (Not Detect); Staphylococcus lugdunensis Not Detected (Not Detect); Staphylococcus species Detected (Not Detect); Stenotrophomonas maltophilia Not Detected (Not Detect); Streptococcus agalactiae (Gr B Not Detected (Not Detect); Streptococcus pneumonia Not Detected (Not Detect); Streptococcus pyogenes (Gr A) Not Detected (Not Detect); Streptococcus species Not Detected (Not Detect); Vancomycin-rest genes A/B Not Detected (Not Detect); mecA/C Resistance Detected (Not Detect); mecA/C and MREJ (MRSA) Resista Detected (Not Detect)
== END 2024-11-22 03:26 | disposition short-term general hospital (02) ==
PROVIDERS: Emergency Provider Emergency Medicine; PCP Internal Medicine
DX: I26.99 Other pulmonary embolism without acute cor pulmonale (principal); J18.9 Pneumonia, unspecified organism; Z79.01 Long term (current) use of anticoagulants; R74.8 Abnormal levels of other serum enzymes; Z93.0 Tracheostomy status; R07.9 Chest pain, unspecified
CPT/HCPCS: 0241U; 36415; 71045; 71275; 74177; 76705; 80053; 82550; 82805; 83605; 83690; 84484; 85025; 87040; 87070; 87077; 87147; 87154; 87186; 87205; 93005; 96361; 96365; 96366; 96367; 96375; 99285; 99291; J0692; J2270; Q9967

== ENCOUNTER → 2024-12-05 13:58 | Outpatient (CLI) | payer MEDICAID, OTHER, SELFPAY ==
[2023-04-04 11:09] VITALS: PULSE 89; RESP 16; O2SAT 100
[2024-07-13 06:48] VITALS: BMI 23.0
[2024-12-05 14:29] LABS: Hematocrit 28.2 % (41-53); Hemoglobin 9.4 g/dL (13.5-17.5); Mean Corpuscular HGB Conc 33.3 % (30-36); Mean Corpuscular Hemoglobin 25.3 PG (26-34); Platelet Count 371 X10^3/uL (150-400); Red Cell Distribution Width 17.2 % (11.6-14.8); White Blood Cell Count 8.1 X10^3/uL (4.5-11.0)
[2024-12-05 14:59] LABS: Alanine Aminotransferase 16 IU/L (<50); Albumin 3.5 g/dL (3.5-5.0); Alkaline Phosphatase 95 U/L (38-126); Aspartate Aminotransferase 34 IU/L (17-59); BUN Creatinine Ratio 36.4 (6-22); Bilirubin Total 0.3 mg/dL (0.2-1.3); Blood Urea Nitrogen 24 mg/dL (9-20); Calcium 8.5 mg/dL (8.4-10.2); Carbon Dioxide 26 mmol/L (22-32); Chloride 102 mmol/L (98-107); Estimated Glomerular Filt Rate > 60 mL/min (>60); Globulin 3.6 g/dL (1.7-4.1); Glucose 81 mg/dL (70-100); HEMOLYSIS < 15 (0-50); Potassium 4.8 mmol/L (3.4-5.1); Sodium 135 mmol/L (137-145); Total Protein 7.1 g/dL (6.3-8.2)
[2024-12-05 15:08] LABS: Prealbumin 12.4 mg/dL (17.6-36.0)
[2024-12-05 15:34] LABS: TSH w/ Reflex to FT4 3.83 uIU/mL (0.47-4.68)
== END ==
PROVIDERS: PCP Internal Medicine; Referring Provider Internal Medicine; Visit Provider Internal Medicine
DX: E46 Unspecified protein-calorie malnutrition (principal); I26.99 Other pulmonary embolism without acute cor pulmonale
CPT/HCPCS: 36415; 80053; 84134; 84443; 85027

== ENCOUNTER 2025-01-02 14:20 | Outpatient (RCR) | payer MEDICAID, OTHER, SELFPAY ==
[2023-04-04 11:09] VITALS: PULSE 89; RESP 16; O2SAT 100
[2024-07-13 06:48] VITALS: BMI 23.0
--- NOTE | 2025-01-02 16:48 | ST.OPIE ---
Addendum entered and electronically signed by Tyrone Rossi 01/02/25 16:49: Sent to PCP. Original Note: Visit Care Team Role Provider Type Chucky Marshall MD Attending Provider Physician Family Provider Primary Care Provider Referring Provider Specialty: Internal Medicine Address: [address] [place] [address], [facility] Email: [email or web address] Speech-Language Pathology Initial Evaluation [employer] Clinical Swallow Evaluation Start: 01/02/25 16:04 Freq: Status: Active Protocol: Document 01/02/25 16:05 SS (Rec: 01/02/25 16:47 SS Desktop) Clinical Swallow Evaluation Session Time Visit Start Time 14:30 Visit Stop Time 15:00 Total Visit Minutes 30 Visit Information Visit Number Initial Evaluation Plan of Care Dates 01/02/25-04/03/25 Insurance Information Medicaid Referral Referring Provider Dr. Chucky Marshall Reason for Referral Chronic oropharyngeal dysphagia Setting Assessment Location Outpatient Care Visit Type Note Type Initial evaluation Patient Information Identification Type Name History Jonnie Christopher is a 44-year-old male, referred for a clinical swallow evaluation by Dr. Marshall as pt is interested in PO intake in setting of chronic oropharyngeal dysphagia with history of silent aspiration. Pt is currently seeing a home health [employer] who referred him for this CSE. MBSS order has been placed by Dr. Marshall. Per diagnostic imaging, order is currently processing. Pt lives at home and has around the clock caregiver assistance. Pt has a complex medical history of pseudobulbar palsy, spastic left hemiparesis, tracheostomy (placed 2 years ago), feeding tube (placed 2 years ago), and history of recurrent aspiration pneumonia . He has been seen for treatment for dysarthria and dysphagia on and off at this clinic since 2019. Most recently, he was hospitalized at [facility] from 2024 to 12/01/2024, presenting with shortness of breath and diagnosed with pulmonary emboli and ruled out for pneumonia. Chest CT on 11/21/24 showed pulmonary emboli within segmental and subsegmental branches of left upper lobe. No right-sided pulmonary emboli. Fluid and debris within left mainstem bronchus extending to left upper and lower lobe bronchi which may represent inflammatory material within the bronchi. Underlying endobronchial neoplastic process cannot be entirely excluded. An MBSS was completed on 09/27/19, with findings of severe oropharyngeal dysphagia. Tracheal penetration and aspiration observed consistently. Cued cough was very weak/ineffective. Please see full MBSS report. Pt primarily receives nutrition/ hydration and medications via feeding tube. He does consume nectar-thick liquids and purees for pleasure with guidance from home health [employer]. Subjective Observations Pt arrived to the evaluation on time and was accompanied by his caregiver, Wendie, who provided most case history. Jonnie is minimally intelligible and it appears that his dysarthria has progressed since last seen at clinic. His home health [employer] is in the process of acquiring an AAC device. Pt engaged and motivated throughout. His caregiver reported that he coughs inconsistently with purees, though not with thickened liquids. He is unable to hold his neck at midline at this time resulting in tilting to the left. His caregiver reports weight loss of about 15 lbs in the last 6 months. She also expressed that Jonnie's voice sounds more wet and gurgly and he has difficulty managing his secretions. He completes oral care 1-2 times a day with caregiver assistance. Kris expressed that he wants to eat and drink more. Reported by Patient/Caregiver Other Symptoms Coughing,Difficulty swallowing liquids,Difficulty swallowing solids,Drooling,Food gets stuck,History of aspiration or pneumonia,Weight loss Current Diet NPO Baseline Feeding Method Dependent for feeding The IDDSI Framework Protocol: IDDSI.1 Objective Assessment Mental Status Responsive,Cooperative, Lethargic Oral Integrity Excessive saliva/Drooling Dentition Decay Lip Function Severe impairment Observation of Lips at Rest Left sided weakness/Drooping Pucker Reduced range of motion, Reduced strength,Left sided weakness/drooping Lip Retraction Reduced range of motion,Left sided weakness/Drooping Alternating Pucker/Lip Retraction Reduced range of motion, Incoordination Tongue Function Severe impairment Observations of Tongue at Rest Involuntary movement(s) Tongue Protrusion Deviates to the right, Involuntary movement(s), Reduced range of motion, Reduced strength Tongue Retraction Reduced range of motion, Reduced strength Tongue Lateralization Deviates to the right,Reduced range of motion,Reduced strength,Incoordination Jaw Function Severe impairment Observation of Jaw at Rest Deviates to the right Jaw Opening Reduced range of motion, Reduced strength Jaw Closing Reduced range of motion, Reduced strength Jaw Lateralization Deviates to the right,Reduced range of motion,Reduced strength,Incoordination Jaw Protrusion Deviates to the right,Reduced range of motion,Reduced strength Jaw Retraction Reduced range of motion, Reduced strength Hard/Soft Palate Function Severe impairment Nasality Hypernasal Respiratory Sufficiency Mild impairment Comment CN V (Trigeminal): impaired b/ l CN VII (Facial): impaired b/l CN IX/X (Glossopharyngeal/ Vagus): impaired b/l CN XII (Hypoglossal): impaired b/l Food and Liquid Trials Results PO trials not completed on this date given long history of chronic severe oropharyngeal dysphagia and silent aspiration. As silent aspiration cannot be ruled out without an instrumental study , absence of overt s/sx of aspiration would not be indicative of absence of aspiration. Additionally, thickened liquids were not trialed as current research indicates variable sensory response to thickened liquids compared to thin liquids in addition to worsened pulmonary injury if thickened liquids are aspirated. Given high risk of development of aspiration pneumonia, PO trials to be completed during Modified Barium Swallow Study for objective assessment of pathophysiology. The IDDSI Framework Protocol: IDDSI.1 Findings Swallowing Function Oropharyngeal phase dysphagia Severity of Swallow Impairment Severely impaired Contributing Factors to Swallow Reduced alertness or attention Impairment ,Difficulty following directions,Reduced oral strength/coordination/ sensation,Mastication inefficiency,Impaired oral- pharyngeal transport,Delayed swallow initiation,Reduced laryngeal excursion,Impaired airway protection,Excessive pharyngeal residue Prognosis Guarded Based on Cognitive status,Bed bound, History of aspiration/ aspiration pneumonia, Comorbidities,Duration of symptoms/severity Comment Signs and symptoms of oropharyngeal dysphagia, given chronic history of severe oropharyngeal dysphagia, silent aspiration as visualized on MBSS in 2020, and multiple hospitalizations for aspiration pneumonia. Aspiration risk is judged to be high. Based on pt?s poor oral health status and overall compromised immune function, pt currently remains at a high risk of pulmonary compromise associated with aspiration. With any dysphagia aside, pt continues to be at an overall high risk of development of PNA d/t his dependence on others for feeding, dependence on others for oral care, multiple medical diagnoses, number of medications, and dependence on feeding tube. Given history of silent aspiration and increased risk of development of aspiration pneumonia, PO trials were held and to be completed during MBSS. Pt does not appear safe for a PO diet at this time. Modified barium swallow study (MBSS) is indicated to thoroughly further assess patient?s swallow pathophysiology in order to determine the safest diet, effective compensatory strategies, and potential rehabilitation exercises for therapy. The plan is for the pt to complete a modified barium swallow study to further assess swallowing pathophysiology in order to determine treatment plan. Further goals will be established based on MBSS results. Impact on Safety and Functioning Risk for aspiration,Risk for inadequate nutrition/hydration Recommendations Instrumental Assessment Yes Frequency Pending MBSS results Duration Pending MBSS results Recommended Solids NPO Medication Recommendations Not Recommended by Mouth Referrals Recommended Referrals Dietary Education Patient/Caregiver Education Described results of evaluation,Patient expressed understanding of evaluation, Patient expressed agreement with goals & treatment plans, Family/caregivers expressed understanding of evaluation, Family/caregivers expressed agreement with goals & treatment plans Goals Short-term Goals Patient will complete MBSS to further evaluate swallowing pathophysiology and determine next steps in POC. Long-term Goals Patient will safely tolerate least restrictive diet consistency to allow for safe consumption for pleasure/ comfort while minimizing development of aspiration pneumonia.
--- NOTE | 2025-01-02 16:48 | ST.OPPOC ---
Physical, Occupational & Speech Therapy At [facility] Visit Care Team Role Provider Type Chucky Marshall MD Attending Provider Physician Family Provider Primary Care Provider Referring Provider Address: [address] [place] [address], [id number] Speech Pathology Plan of Care Plan of Care Dates 01/02/25-04/03/[address] Chucky Marshall Patient History Jonnie Christopher is a 44-year-old male, referred for a clinical swallow evaluation by Dr. Marshall as pt is interested in PO intake in setting of chronic oropharyngeal dysphagia with history of silent aspiration. Pt is currently seeing a home health [employer] who referred him for this CSE. MBSS order has been placed by Dr. Marshall. Per diagnostic imaging, order is currently processing. Pt lives at home and has around the clock caregiver assistance. Pt has a complex medical history of pseudobulbar palsy, spastic left hemiparesis, tracheostomy (placed 2 years ago), feeding tube (placed 2 years ago), and history of recurrent aspiration pneumonia. He has been seen for treatment for dysarthria and dysphagia on and off at this clinic since 2019. Most recently, he was hospitalized at [facility] from 11/21/2024 to 12/01/2024, presenting with shortness of breath and diagnosed with pulmonary emboli and ruled out for pneumonia. Chest CT on 11/21/24 showed pulmonary emboli within segmental and subsegmental branches of left upper lobe. No right-sided pulmonary emboli . Fluid and debris within left mainstem bronchus extending to left upper and lower lobe bronchi which may represent inflammatory material within the bronchi. Underlying endobronchial neoplastic process cannot be entirely excluded. An MBSS was completed on 09/27/19, with findings of severe oropharyngeal dysphagia. Tracheal penetration and aspiration observed consistently . Cued cough was very weak/ineffective. Please see full MBSS report. Pt primarily receives nutrition/hydration and medications via feeding tube. He does consume nectar-thick liquids and purees for pleasure with guidance from home health [employer]. Short-term Goals Patient will complete MBSS to further evaluate swallowing pathophysiology and determine next steps in POC. Long-term Goals Patient will safely tolerate least restrictive diet consistency to allow for safe consumption for pleasure/comfort while minimizing development of aspiration pneumonia. Comment: Electronically Signed by: ERICK Rose 01/02/25 [id number] If you are in agreement with this Plan of Care, please return a signed and dated copy. I have reviewed this Plan of Care and certify that the skilled therapy services above are required to meet the patient?s needs. Physician Signature Date Printed Name and Credentials Clinical Instructor Signature Printed Name and Credentials
--- NOTE | 2025-04-08 11:52 | ST.OPDS ---
Visit Care Team Role Provider Type Chucky Marshall MD Attending Provider Physician Family Provider Primary Care Provider Referring Provider Address: [address] [place] [address], [id number] MBSS was completed on 01/08/25 with recommendation for continued outpatient [facility] services. Pt has home health services in place and has not followed up for additional sessions since MBSS. POC has and account discharged at this time. Recommend pt request new referral from his PCP if he would like to pursue additional services at the outpatient setting.
== END 2025-04-09 12:51 | disposition home or self-care (01) ==
LOC: SP 14:20
PROVIDERS: Family Provider Internal Medicine; PCP Internal Medicine; Referring Provider Internal Medicine; Visit Provider Internal Medicine
DX: G80.9 Cerebral palsy, unspecified (principal); J69.0 Pneumonitis due to inhalation of food and vomit; R13.10 Dysphagia, unspecified; Z93.0 Tracheostomy status
CPT/HCPCS: 92610

== ENCOUNTER → 2025-01-08 11:41 | Outpatient (CLI) | payer MEDICAID, OTHER, SELFPAY ==
[2023-04-04 11:09] VITALS: PULSE 89; RESP 16; O2SAT 100
[2024-07-13 06:48] VITALS: BMI 23.0
--- NOTE | 2025-01-08 14:00 | ST.SWALLOW ---
Visit Care Team Role Provider Type Chucky Marshall MD Attending Provider Physician Family Provider Primary Care Provider Referring Provider Specialty: Internal Medicine Address: [address] [place] [address], [id number] Email: [email or web address] Modified Barium Swallow Study [employer] Modified Barium Swallow Study Start: 01/08/25 12:39 Freq: Status: Active Protocol: Document 01/08/25 12:45 LNK (Rec: 01/08/25 14:00 LNK Desktop) Modified Barium Swallow Study Total Time Visit Start Time 12:00 Visit Stop Time 12:45 Total Visit Minutes [address] Marshall Reason for Referral dysphagia Setting Setting Acute Care Patient Information Identification Type Name,Date of Patient History Per Clinical swallow evaluation (01/02/2025): Jonnie Christopher is a 44-year-old male, referred for a clinical swallow evaluation by Dr. Marshall as pt is interested in PO intake in setting of chronic oropharyngeal dysphagia with history of silent aspiration. Pt is currently seeing a home health [employer] who referred him for this CSE. MBSS order has been placed by Dr. Marshall. Pt lives at home and has around the clock caregiver assistance. Pt has a complex medical history of pseudobulbar palsy, spastic left hemiparesis, tracheostomy (placed 2 years ago), feeding tube (placed 2 years ago), and history of recurrent aspiration pneumonia . He has been seen for treatment for dysarthria and dysphagia on and off at this clinic since 2019. Most recently, he was hospitalized at [facility] from 2024 to 12/01/2024, presenting with shortness of breath and diagnosed with pulmonary emboli and ruled out for pneumonia. Chest CT on 11/21/24 showed pulmonary emboli within segmental and subsegmental branches of left upper lobe. No right-sided pulmonary emboli. Fluid and debris within left mainstem bronchus extending to left upper and lower lobe bronchi which may represent inflammatory material within the bronchi. Underlying endobronchial neoplastic process cannot be entirely excluded. An MBSS was completed on 09/27/19, with findings of severe oropharyngeal dysphagia. Tracheal penetration and aspiration observed consistently. Cued cough was very weak/ineffective. Please see full MBSS report. Pt does consume nectar-thick liquids for pleasure with guidance from home health [employer]. His caregiver reported that he does not have anything other than liquids PO. MBSS was requested by [employer] to determine pt's safety with recreational PO intake. Subjective Observations Pt entered the room in a wheelchair and was Carlos Alberto lifted into the fluoroscopy chair. He was accompanied by his caregiver Wendie. Pt's head is in a constant lean to the left. Pt is familiar with the MBSS procedures which were again explained for him and caregiver. Swallows were recorded with pt's head to the left and with his caregiver holding his head upright. His caregiver reported that he does not cough with thickened liquids. He is unable to hold his neck at midline at this time resulting in tilting to the left. His caregiver reports weight loss of about 15 lbs in the last 6 months. She also expressed that pt's voice sounds more wet and gurgly and he has difficulty managing his secretions. He completes oral care 1-2 times a day with caregiver assistance. Pt's caregiver was in attendance throughout the MBSS [ End ] Patient Positioning Position View Lateral Imaging Lateral View Textures Administered Trials Presented Mildly Thick Liquid via Spoon (IDDSI 2),Mildly Thick Liquid via Straw (IDDSI 2) Barium Tablet No The IDDSI Framework Protocol: IDDSI.1 Oral Impairment Source: The Modified Barium Swallow Impairment Profile (MBSImP??) Lip Closure Escape progressing to mid-chin Tongue Control During Bolus Hold Posterior escape of greater than half of bolus Bolus Transport/Lingual Motion Repetitive/disorganized tongue motion Oral Residue Complete oral clearance Location Tongue Initiation of Pharyngeal Swallow Bolus head at pyriforms Additional Oral Impairment Observations *OME indicated global weakness, ROM, speed and accuracy of oral structures. *Pt demonstrated left side drooling. *Dentition included missing teeth, decay with adequate oral hygiene, *Anterior tongue hold of contrast with repetitive tongue rocking to move contrast AP *Pt's speech in minimally intelligible. His caregiver interpreted much of pt's speech. Pharyngeal Impairment Source: The Modified Barium Swallow Impairment Profile (MBSImP??) Soft Palate Elevation No bolus between soft palate & pharyngeal wall Laryngeal Elevation Part.sup.move.thyroid cart/ part.approx.arytenoids to epiglot.petiole Anterior Hyoid Excursion Partial anterior movement Epiglottic Movement No inversion Laryngeal Vestibular Closure Incomplete; narrow column air/ contrast in laryngeal vestibule Pharyngeal Stripping Wave Present - diminished Pharyngoesophageal Segment Opening Complete distention & complete duration; no obstruction of flow Tongue Base Retraction Wide column of contrast/air betwn tongue base & post. pharyngeal wall Pharyngeal Residue Collection of residue within/ on pharyngeal structures Location Diffuse (>3 areas) Additional Pharyngeal Impairment *Significantly weal base of Observations tongue retraction strength *Slow uncoordinated AP transition with premature spillage of most of bolus to the valeculla pre-swallow *Reduced hyolaryngeal elevation and movement *Inconsistent inversion of epiglottis; variable from no inversion to partial ( horizontal) inversion *Penetration of contrast and residual contrast into the laryngeal vestibule (PAS 3= penetrates larynx, above folds , visible laryngeal residue) *No overt aspiration was observed *Trials of nectar thick liquid were completed with head to the left, head held upright, without straw and with straw. No aspiration was observed with controlled swallow trials . Additional trials were not completed secondary to increasing risk for aspiration . ST, Pt and caregiver wanted to be sure he was safe with current pleasure foods. A/P View The IDDSI Framework Protocol: IDDSI.1 Clinical Impressions Findings Pt presented with severe oropharyngeal dysphagia *Trials of nectar thick liquid were completed with head to the left, head held upright, without straw and with straw. No aspiration was observed with controlled swallow trials. Additional trials were not completed secondary to increasing risk for aspiration . HH ST, Pt and caregiver wanted to be sure he was safe with current pleasure foods. Pt did not aspirate trials of current diet; however there was evidence of contrast residue within the upper portion of the laryngeal vestibule noted. Continuation of current PO recreational nectar thick liquid is recommended with supervision. Suction as indicated. Rehabilitation Potential Poor Patient Appropriate for Therapy No Recommendations Diet Liquids Order Mildly Thick (IDDSI 2) Diet Order NPO Medication Recommendation Not Recommended by Mouth Additional Dietary Needs Controlled Sips Aspiration Precautions Recommended Precautions Upright at 90 Degrees,Small Bites/Sips Treatment Plan Therapy Recommendations Outpatient Speech Therapy Additional Recommended Referrals Continuation of ST services if /when pt gets AAC device for communication
== END ==
PROVIDERS: Family Provider Internal Medicine; PCP Internal Medicine; Referring Provider Internal Medicine; Visit Provider Internal Medicine
DX: R13.10 Dysphagia, unspecified (principal); J69.0 Pneumonitis due to inhalation of food and vomit; G80.9 Cerebral palsy, unspecified; Z93.0 Tracheostomy status
CPT/HCPCS: 74230; 92611

== ENCOUNTER → 2025-02-21 13:29 | Outpatient (CLI) | payer MEDICAID, OTHER, SELFPAY ==
[2023-04-04 11:09] VITALS: PULSE 89; RESP 16; O2SAT 100
[2024-07-13 06:48] VITALS: BMI 23.0
--- NOTE | 2025-02-25 12:41 | DIET.OUTPTC ---
Dietary Outpatient Consultation Note Consultation Date: 02/21/2025 Assessment: 44 y M referred to dietitian for Dysphagia, unspecified, Other artificial openings of gastrointestinal tract status, Unspecified protein-calorie malnutrition. Pt presents with caregiver, Wendie. Wendie notes earlier this year pt droped from 160 lb to 143 lb within a few months and has been unable to regain weight back, but weight has been stable without further loss. Feedings are as follows: 4 cartons of [employer] Peptide 1.5 formula for 2000 kcals and 96 g protein total. 4 feeding times per day last around 1 hour. 3-4 packets of Banatrol given daily (40 kcals each, with 2 g soluble fiber. Total fiber intake banatrol plus formula is 26-28 g/day. Without banatrol pt has diarrhea, caregiver reports diarrhea is currently controlled and pt has regular BMs daily. Pt also pleasure eats with strict oral care, mostly sugary treats like candy or thicken soda. Upon visual NFPE, temples severely depressed and moderate to severe buccal and orbital fat pad loss. Pt covered with blanket, limited. Ht: 182.88 cm Wt: 65 kg (143 lb) BMI: 19.4 UBW: 160 lb Nutrition Diagnosis: Severe acute protein calorie malnutrition related to inadequate oral intakes as evidenced by severe muscle mass wasting (temples) and moderate to severe subcutaneous fat loss (buccal and orbital fat pads) and 11% weight loss within 6 months (severe) Interventions: -Discussed possibility of increasing amount of formula pt receiving, caregivers only able to do 4 feeds spaced out throughout day (caregivers work 9am-10pm) extra formula would need to be added to each bolus and tolerance assessed carefully -Alternatively discussed options of 1 prosource protein packet added daily (+11g) or formula changed to more caloric dense formula (2.0) Pt's motherMarianela has phone number for the dietitian who manages feeds. When pt was previously admitted to acute care last year, this RD attempted to and failed to connect with dietitian team who manages his feeds. Caregiver unsure if formula is still being received/managed through [employer] in [place] and contact information for enteral team. Informed caregiver that the dietitian team managing pt's feeds needs to be contacted and pt and caregiver need to have assessment/f/u with this team as they are managing pt feeds (i.e. if pt were to start doing extra formula but wasn't receiving extra formula from company) Goals: Contact dietitian team from company receiving feeds for a follow up or assessment for malnutrition. If unable to reach or establish assessment with this team, reach back out to this RD to help coordinate and fax over reccs. Pt's caregiver feels confident in reaching out to [place] for that information to follow with the dietitian team EER: +250-500 kcal per day Monitoring/Evaluations: f/u call in 1 week to ensure pt has transferred dietary care over to enteral supplier team Electronically Signed by: Flakita Hopkins 02/25/25 12:41 Clinical Dietitian [address] [id number]
== END ==
LOC: DIET 13:29
PROVIDERS: Family Provider Internal Medicine; PCP Internal Medicine; Referring Provider Internal Medicine
DX: E43 Unspecified severe protein-calorie malnutrition (principal); R13.10 Dysphagia, unspecified; Z68.1 Body mass index [BMI] 19.9 or less, adult; Z93.4 Other artificial openings of gastrointestinal tract status; Z71.3 Dietary counseling and surveillance
CPT/HCPCS: 97802

== ENCOUNTER 2025-05-05 15:02 | Emergency (ER) | payer MEDICAID, OTHER, SELFPAY ==
[2023-04-04 11:09] VITALS: PULSE 89; RESP 16; O2SAT 100
[2024-07-13 06:48] VITALS: BMI 23.0
[2025-05-05 15:12] VITALS: BP 102/70; PULSE 84; RESP 14; TEMP 36.7; O2SAT 99; BMI 23.0
--- NOTE | 2025-05-05 16:14 | ED.RECABL ---
HPI - Recheck/Abnormal Lab/Rx General Chief Complaint: Recheck/Abnormal Lab/Rx Stated Complaint: tube fell out Time Seen by Provider: 05/05/25 15:07 Source: patient and family Mode of arrival: Wheelchair History of Present Illness HPI narrative: 44-year-old gentleman history of pseudobulbar palsy, spastic left hemiparesis, tracheostomy feeding tube, history of recurrent aspiration pneumonia, prior Pseudomonas pneumonia, had feeding tube follow up this morning in to be evaluated. Other than what is stated 14 point review of system is negative. Related Data Home Medications ?Medication ?Instructions ?Recorded ?Confirmed ferrous sulfate 325 mg (65 mg 130 mg PO DAILY 10/29/21 04/26/25 iron) tablet syringe with needle 3 mL 20 gauge #1 ea 08/10/23 04/26/25 x 1 (BD Luer-Rafael Syringe) blood-glucose meter (True Metrix #1 ea 12/05/24 04/26/25 Air Glucose Meter) glucagon 1 mg solution for 1 mg IM ONCE 12/05/24 04/26/25 injection (Glucagon Emergency Kit) hydrocortisone 10 mg tablet 10 mg feeding tube DAILY 12/05/24 04/26/25 hydrocortisone 5 mg tablet 5 mg feeding tube QPM 12/05/24 04/26/25 Previous Rx's ?Medication ?Instructions ?Recorded Battery Powered Lift #1 ea 03/02/18 Power Chair #1 ea 10/16/18 Disabled Parking #1 ea 01/15/19 Shower Chair #1 ea 07/04/19 XL mattress for semi-electric #1 ea 09/27/22 hospital bed baclofen 5 mg/5 mL oral solution 5 mg (5 mL) PO DAILY #473 mL 01/20/23 Mattress #1 ea 03/28/24 Semi-electric hospital bed #1 ea 03/28/24 apixaban 5 mg tablet (Eliquis) 5 mg PO BID #60 tabs 08/15/24 folic acid 1 mg tablet 1 mg PO DAILY #90 tabs 12/13/24 Lingraphica Communication Device #1 ea 01/23/25 midodrine 10 mg tablet 10 mg feeding tube Q8H #90 tabs 03/15/25 scopolamine base 1 mg over 3 days 1 patch topical Q3D #24 ea 03/15/25 transdermal patch sodium chloride 0.9 % for 2.5 ml inhalation Q12H PRN 03/15/25 nebulization shortness of breath or wheezing #300 mL suction catheter kit #5 ea 03/20/25 sulfamethoxazole 800 1 tab PO BID #14 tabs 04/15/25 mg-trimethoprim 160 mg tablet sertraline 100 mg tablet 200 mg (2 x 100 mg) PO DAILY #60 05/01/25 tabs banana 1 ea PO 4XD #450 ea 05/02/25 flakes-transgalactooligosaccharide oral powder packet (Banatrol Plus oral powder packet) Allergies Allergy/AdvReac Type Severity Reaction Status Date / Time Penicillins (PENICILLINS) Allergy Severe RASH Verified 04/26/25 12:17 levofloxacin Allergy Intermediate Rash Verified 04/26/25 12:17 Review of Systems Review of Systems ROS Unobtainable: All systems reviewed & are unremarkable except as noted in HPI and below Patient History Medical History (Updated 05/05/25 @ 17:12 by Daniel Stout, ) Excessive cerumen in both ear canals Chronic anticoagulation Iron deficiency anemia History of pulmonary embolism Status post radiation therapy Chronic anticoagulation Tracheostomy in place Sacral decubitus ulcer, stage III Protein calorie malnutrition Hyponatremia Dysphagia Recurrent aspiration pneumonia Depression, major, recurrent Jejunostomy tube present Influenza A Anemia Pneumonia 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 Father No problems noted. Social History marital status: unmarried,single details: Lives independantly with part-time caregivers household members: none lives independently: Yes occupational status: disabled Smoking Status: Former smoker alcohol intake: never substance use type: marijuana Smoking Status: Former smoker alcohol intake frequency: 0-2 drinks per day Exam Narrative Exam Narrative: GENERAL: [44] year old patient appears stated age. Well-developed patient, in mild distress. Wheelchair bound HEAD: Atraumatic. Normocephalic. EYES: Pupils equal round and reactive. Extraocular motions intact. No scleral icterus. No injection or drainage. ENT: Nose without bleeding, purulent drainage. Throat without erythema, tonsillar hypertrophy or exudate. Airway patent. NECK: Trachea midline. Non tender CARDIOVASCULAR: Regular rate and rhythm without murmurs, gallops, or rubs. RESPIRATORY: Clear to auscultation. Breath sounds equal bilaterally. No wheezes, rales, or rhonchi. GASTROINTESTINAL: Abdomen soft, non-tender, nondistended. EXTREMITIES: No edema or joint tenderness. BACK: Nontender without deformity or crepitance. No flank tenderness. NEURO: AOx3. SKIN: No rash or erythema of visible areas Initial Vital Signs Initial Vital Signs: Vital Signs Temperature 98.0 F 05/05/25 15:12 Pulse Rate 84 05/05/25 15:12 Respiratory Rate 14 05/05/25 15:12 Blood Pressure 102/70 05/05/25 15:12 Pulse Oximetry 99 05/05/25 15:12 Oxygen Delivery Method Room Air 05/05/25 15:12 [place] [facility] [place] Procedure: Feeding tube replacement Location: epigastric Time out performed: Yes (Twenty Divehi coude catheter placed no complication) Technique/Description of procedure performed: Perpendicular approach with 10 cc syringe injection. Catheter in place and intact Patient tolerated procedure: Well Complications: none Course Vital Signs Vital signs: Vital Signs - 8 hr 05/05/25 15:12 Temperature 98.0 F Pulse Rate 84 Respiratory Rate 14 Blood Pressure 102/70 Pulse Oximetry 99 Oxygen Delivery Method Room Air MDM - Recheck/Abnormal Lab/Rx MDM Narrative Medical decision making narrative: Vital signs, nurse triage note, medication list, previous ER visits, and all imaging studies reviewed. PH 2-3 tested, 20 Divehi 2 cc coude catheter placed no complication. D/c home. at this time Discharge Plan Departure Patient Disposition: Home Clinical Impression: Encounter for feeding tube placement Activity Restrictions/Additional Instructions: Return with new or worsening symptoms. Follow up Dr. Marshall at your scheduled next visit. Prescriptions: No Action (DME) XL mattress for semi-electric hospital bed See Rx Instructions .Route .MEDSUPPLY Qty: 1 0RF Rx Instructions: use daily as directed (DME) Disabled Parking Qty: 1 0RF Rx Instructions: I find this patient to be medically disabled and qualified for Disabled Parking as indicated, and signed, on the Accompanying Disabled Parking Application for Individuals ferrous sulfate 325 mg (65 mg iron) tablet 130 mg PO DAILY baclofen 5 mg/5 mL solution 5 mg PO DAILY Qty: 473 3RF Rx Instructions: Give 5mL via J-tube (DME) Battery Powered Lift Qty: 1 0RF Dose Instruction: As directed Rx Instructions: Use daily as directed for transfers to and from bed (DME) Power Chair tall Qty: 1 0RF Dose Instruction: As directed Rx Instructions: As directed for patient care with activities of daily living. Chair needs to tilt foreword and tilt backwards for patient care. Pt is 6 feet tall and will need to fit height. (DME) Shower Chair Qty: 1 0RF Rx Instructions: As directed for patient care with activities of daily living. Chair needs to tilt foreword and tilt backwards for patient care. Pt is 6 feet tall and will need to fit height. (DME) Semi-electric hospital bed Qty: 1 0RF Dose Instruction: As directed Rx Instructions: Semi-electric hospital bed to permit transfers to wheelchair and to attach traction equipment. Must be large enough and long enough to accommodate his height and weight. EDEN: 99 months (DME) Mattress See Rx Instructions .Route .MEDSUPPLY Qty: 1 0RF Rx Instructions: Long mattress for hospital bed Eliquis 5 mg tablet 5 mg PO BID Qty: 60 12RF folic acid 1 mg tablet 1 mg PO DAILY Qty: 90 3RF (DME) Lingraphica Communication Device See Rx Instructions .Route .MEDSUPPLY Qty: 1 0RF Rx Instructions: Evaluation for speech generating device. See online submission form for free trial of device. scopolamine base 1 mg over 3 days patch 3 day 1 patch topical Q3D Qty: 24 1RF midodrine 10 mg tablet 10 mg feeding tube Q8H Qty: 90 1RF sodium chloride 0.9 % solution for nebulization 2.5 ml inhalation Q12H PRN (Reason: shortness of breath or wheezing) Qty: 300 0RF (DME) suction catheter kit See Rx Instructions .Route .MEDSUPPLY Qty: 5 4RF Rx Instructions: Mya suction catheter (or equivalent) equipement and disposable. [employer] [facility] supply sertraline 100 mg tablet 200 mg PO DAILY Qty: 60 2RF Banatrol Plus Powder In Packet 1 ea PO 4XD Qty: 450 3RF (DME) BD Luer-Rafael Syringe 3 mL 20 gauge x 1 syringe See Rx Instructions .ROUTE .MEDSUPPLY Qty: 1 Patient Comments: USE FOR MUCOMYST Rx Instructions: As directed hydrocortisone 10 mg tablet 10 mg feeding tube DAILY Glucagon Emergency Kit (human) 1 mg recon soln 1 mg IM ONCE (DME) blood-glucose meter [True Metrix Air Glucose Meter] Misc See Rx Instructions .ROUTE DAILY Qty: 1 Rx Instructions: As directed hydrocortisone 5 mg tablet 5 mg feeding tube QPM sulfamethoxazole-trimethoprim 800-160 mg tablet 1 tab PO BID Qty: 14 2RF Referrals: Chucky Marshall MD [Primary Care Provider, Internal Medicine] Stand Alone Forms: Patient Portal/API
--- NOTE | 2025-05-05 16:43 | PC.NURSE ---
place 20 fr 10cc urinary cath TKO. scant contents expressed and tested: ph-2/3.
[2025-05-05 17:19] VITALS: BP 108/72; PULSE 80; RESP 16; O2SAT 99
== END 2025-05-05 17:24 | disposition home or self-care (01) ==
PROVIDERS: Emergency Provider Family Medicine; Family Provider Internal Medicine; PCP Internal Medicine
DX: Z46.59 Encounter for fitting and adjustment of other gastrointestinal appliance and device (principal)
CPT/HCPCS: 43762; 99281; 99283

== ENCOUNTER 2025-05-08 22:54 | Inpatient (IN) | payer MEDICAID, MEDICARE, OTHER, SELFPAY ==
[2025-05-07 08:34] VITALS: PULSE 89; RESP 16; O2SAT 100; BMI 23.0
[2025-05-08 22:56] VITALS: BP 88/62; PULSE 95; RESP 18; TEMP 36.8; O2SAT 97
[2025-05-08 23:20] VITALS: BP 86/55; PULSE 92; O2SAT 99
[2025-05-08 23:30] VITALS: BP 88/58; PULSE 93; O2SAT 97
[2025-05-09] VITALS (62 sets, daily range): BP systolic 84–152; BP diastolic 59–87; PULSE 61–128; RESP 14–32; TEMP 36.1–37.2; O2SAT 67–100; BMI 25.2
--- NOTE | 2025-05-09 00:36 | DI.RAD.S_ITS ---
PROCEDURE: XR ABDOMEN 1V INDICATIONS: check peg tube placement TECHNIQUE: One view of the abdomen acquired. COMPARISON: [facility], [place], [place] CATHETER PATENCY, 05/08/2025, 13:53. [facility], CT, CT ABDOMEN PELVIS W CON, 11/21/2024, 20:22. [facility], [place], XR ABDOMEN 1V, 02/02/2023, 23:23. FINDINGS: Surgical changes and devices: Gastrostomy tube balloon is noted projecting in right abdomen with contrast outlining ascending colon loop and extending to the region of gallbladder fossa. Contrast is also seen in lower abdomen/pelvis. Bowel: Bowel gas pattern is nonspecific for obstruction. No definite pneumoperitoneum. Soft tissues: No suspicious abdominal calcifications. Visualized solid organ contours appear normal in size. Bones: No suspicious bony lesions. IMPRESSION: PEG tube balloon appears to be within the right abdominal peritoneal space with contrast extravasation into the peritoneal space as above. Findings were discussed with ordering physician at the time of dictation. Dictated by: Jarocho Garzon M.D. on 05/09/2025 at 1:27 Approved by: Jarocho Garzon M.D. on 05/09/2025 at 1:31
--- NOTE | 2025-05-09 01:12 | PC.NURSE ---
Assisted Provider with placing an catheter into pt's feeding tube insertion site. Md placed an 18 russian coude catheter. Young bowel tones with air insertion. Placed contrast into tube fore xray placement verification.
--- NOTE | 2025-05-09 01:17 | ED_ITS ---
HPI - Abdominal Pain General Chief Complaint: Abdominal Pain Stated Complaint: feeding tube issues- pain and nothing going in Time Seen by Provider: 05/08/25 23:03 Source: family Mode of arrival: Wheelchair History of Present Illness HPI narrative: 45-year-old gentleman history of pseudobulbar palsy, spastic left hemiparesis, tracheostomy feeding tube, history of recurrent aspiration pneumonia, prior Pseudomonas pneumonia, had feeding tube replaced here in the ER by myself with a coude catheter sent home on 05/05/2025. Patient was seen by surgeon today at outpatient clinic replaced with feeding tube came in tonight not functioning at this time. Other than what is stated 14 point review of system is negative. Related Data Home Medications ?Medication ?Instructions ?Recorded ?Confirmed ferrous sulfate 325 mg (65 mg 130 mg PO DAILY 10/29/21 05/08/25 iron) tablet syringe with needle 3 mL 20 gauge #1 ea 08/10/2304/26 x 1 (BD Luer-Rafael Syringe) blood-glucose meter (True Metrix #1 ea 12/05/24 Air Glucose Meter) glucagon 1 mg solution for 1 mg IM ONCE 12/05/2405/08 injection (Glucagon Emergency Kit) Previous Rx's ?Medication ?Instructions ?Recorded Battery Powered Lift #1 ea 03/02/18 Power Chair #1 ea 10/16/18 Disabled [address]ing #1 ea 01/15/19 Shower Chair #1 ea 07/04/19 XL mattress for semi-electric #1 ea 09/27/22 hospital bed baclofen 5 mg/5 mL oral solution 5 mg (5 mL) PO DAILY #473 mL 01/20/23 Mattress #1 ea 03/28/24 Semi-electric hospital bed #1 ea 03/28/24 apixaban 5 mg tablet (Eliquis) 5 mg PO BID #60 tabs folic acid 1 mg tablet 1 mg PO DAILY #90 tabs 12/13 Lingraphica Communication Device #1 ea 01/23/25 scopolamine base 1 mg over 3 days 1 patch topical Q3D #24 ea 03/15/25 transdermal patch sodium chloride 0.9 % for 2.5 ml inhalation Q12H PRN 0 03/15/25 nebulization shortness of breath or wheez ing #300 mL suction catheter kit #5 ea 03/20/25 sertraline 100 mg tablet 200 mg (2 x 100 mg) PO DAILY #60 05/01/25 tabs banana 1 ea PO 4XD #450 ea 05/02/25 flakes-transgalactooligosaccharide oral powder packet (Banatrol Plus oral powder packet) midodrine 10 mg tablet 10 mg feeding tube Q8H #270 tabs 05/06/25 Allergies Allergy/AdvReac Type Severity Reaction Status Date / Time Penicillins (PENICILLINS) Allergy Severe RASH Verified 05/08/25 11:34 levofloxacin Allergy Intermediate Rash Verified 05/08/25 11:34 Review of Systems Review of Systems ROS Unobtainable: All systems reviewed & are unremarkable except as noted in HPI and below Patient History Medical History (Updated 05/09/25 @ 01:55 by Daniel Stout DO) Excessive cerumen in both ear canals Chronic anticoagulation Iron deficiency anemia History of pulmonary embolism Status post radiation therapy Chronic anticoagulation Tracheostomy in place Sacral decubitus ulcer, stage III Protein calorie malnutrition Hyponatremia Dysphagia Recurrent aspiration pneumonia Depression, major, recurrent Jejunostomy tube present Influenza A Anemia Pneumonia 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 Father No problems noted. Social History marital status: unmarried,single details: Lives independantly with part-time caregivers household members: none lives independently: Yes occupational status: disabled alcohol intake: never substance use type: marijuana Smoking Status: Never smoker alcohol intake frequency: 0-2 drinks per day Exam Narrative Exam Narrative: GENERAL: [45] year old patient appears stated age. Well-developed patient, in mild distress. HEAD: Atraumatic. Normocephalic. EYES: Pupils equal round and reactive. Extraocular motions intact. No scleral icterus. No injection or drainage. ENT: Nose without bleeding, purulent drainage. Throat without erythema, tonsillar hypertrophy or exudate. Airway patent. NECK: Trachea midline. Non tender CARDIOVASCULAR: Regular rate and rhythm without murmurs, gallops, or rubs. RESPIRATORY: Clear to auscultation. Breath sounds equal bilaterally. No wheezes, rales, or rhonchi. GASTROINTESTINAL: Abdomen soft, non-tender, nondistended. Budding granulation surrounding G-tube site. Erythema of skin irritation no fluctuance or purulence. EXTREMITIES: No edema or joint tenderness. BACK: Nontender without deformity or crepitance. No flank tenderness. NEURO: AOx3. SKIN: No rash or erythema of visible areas Initial Vital Signs Initial Vital Signs: Vital Signs Temperature 98.2 F 05/08/25 22:56 Pulse Rate 95 H 05/08/25 22:56 Respiratory Rate 18 05/08/25 22:56 Blood Pressure 88/62 L 05/08/25 22:56 Pulse Oximetry 97 05/08/25 22:56 Oxygen Delivery Method Room Air 05/08/25 22:56 Course Orders Ordered: ED Orders 05/09/25 00:36 XR abdomen 1V Stat Vital Signs Vital signs: Vital Signs - 8 hr 05/08/25 22:56 05/08/25 23:20 05/08/25 23:20 Temperature 98.2 F Pulse Rate 95 H 92 H Respiratory Rate 18 Blood Pressure 88/62 L 86/55 L Pulse Oximetry 97 99 Oxygen Delivery Method Room Air 05/08/25 23:30 05/08/25 23:30 Temperature Pulse Rate 93 H Respiratory Rate Blood Pressure 88/58 L Pulse Oximetry 97 Oxygen Delivery Method MDM - Abdominal Pain Imaging Data Abdominal x-ray: Radiologist's Impression: [address] [address] XRay Report Signed Patient: Jonnie Christopher MR#: [id number] : 1980 Acct:[id number] Age/Sex: 45 / M Date of Service: 05/09/25 Loc: ED Accession Number: [id number] Procedure: XR abdomen 1V Ordering Provider: Daniel Stout D.O. PROCEDURE: XR ABDOMEN 1V INDICATIONS: check peg tube placement TECHNIQUE: One view of the abdomen acquired. COMPARISON: [facility], [place], [place] CATHETER PATENCY, 05/08/2025, 13:53. [facility], [place], CT ABDOMEN PELVIS W CON, 11/21/2024, 20:22. Former[facility], [place], XR ABDOMEN 1V, 02/02/2023, 23:23. FINDINGS: Surgical changes and devices: Gastrostomy tube balloon is noted projecting in right abdomen with contrast outlining ascending colon loop and extending to the region of gallbladder fossa. Contrast is also seen in lower abdomen/pelvis. Bowel: Bowel gas pattern is nonspecific for obstruction. No definite pneumoperitoneum. Soft tissues: No suspicious abdominal calcifications. Visualized solid organ contours appear normal in size. Bones: No suspicious bony lesions. IMPRESSION: PEG tube balloon appears to be within the right abdominal peritoneal space with contrast extravasation into the peritoneal space as above. Findings were discussed with ordering physician at the time of dictation. MDM Narrative Medical decision making narrative: Vital signs, nurse triage note, medication list, previous ER visits, and all imaging studies reviewed. PEG tube balloon appears to be within the right abdominal peritoneal space with contrast extravasation into the peritoneal space. Three attempts were made without any success using 18 18 and 20 coude catheter with contrast applied with no success. Case discussed with Dr. Naqvi be placing a PEG tube in the morning. Discharge Plan Departure Patient Disposition: Admitted as Observation Clinical Impression: PEG tube malfunction Admit Date/Time: 05/09/25 01:53 Admit Provider: Alen Naqvi
--- NOTE | 2025-05-09 01:45 | DI.RAD.S_ITS ---
PROCEDURE: XR KUB INDICATIONS: feeding tube TECHNIQUE: One view of the abdomen acquired. COMPARISON: [facility], CR, XR ABDOMEN 1V, 05/09/2025, 0:32. [facility], CR, XR KUB, 06/29/2024, 12:29. FINDINGS: Surgical changes and devices: Peg tube tip is in lateral right abdomen and is likely within peritoneal space outside of the bowel loops. Bowel: Nonspecific bowel gas pattern for obstruction. Peritoneal free air cannot be excluded. Soft tissues: No suspicious abdominal calcifications. Gastrografin contrast is likely in right peritoneal cavity outlining ascending colon with contrast collection also seen in lower abdomen/pelvis. Visualized solid organ contours appear normal in size. Bones: No suspicious bony lesions. IMPRESSION: Likely extra luminal position of PEG tube in lateral right peritoneal space with contrast seen in right peritoneal space. Peritoneal free air cannot be excluded. Dictated by: Jarocho Garzon M.D. on 05/09/2025 at 1:49 Approved by: Jarocho Garzon M.D. on 05/09/2025 at 1:54
[2025-05-09] MEDS: SODIUM CHLORIDE 0.9% 1,000 ML 100 ML IV ×2 (07:00→16:30)
[2025-05-09] MEDS: SODIUM CHLORIDE 0.9% FLUSH 10 ML IV ×2 (07:01→22:00)
--- NOTE | 2025-05-09 08:52 | PM.CN ---
History of Present Illness Consult details Chief complaint: feeding tube issues- pain and nothing going in Requesting provider: Alen Naqvi Narrative: Patient is seen at the request of Dr. Naqvi of surgery. Apparently the patient arrived last night with a question of PEG tube dysfunction. A PEG tube was replaced in the ED but was not functioning as expected after placement. The patient was admitted by surgery to the [facility] and this morning taken to the OR for investigation. Prior to this, I was alerted of the patient's clinical status and I did initiate lab tests, blood cultures, IV fluids, and IV cefepime for possible sepsis. [place] [address] with a normal lactic acid. In the OR, the PEG to appeared to be in a false passage. The gastrostomy channel was closed and a J-tube was placed. The peritoneum was washed out. It did not appear grossly that tube feeds were in the peritoneum and the patient was subsequently brought to the ICU where he was on norepinephrine through a peripheral IV and appeared to be very dry with no urine output after 2 L of fluids in the OR. The patient has a noncuffed tracheostomy in place, and severe skin injury to the sacrum including 1 area with possible induration and a wound which is about 2-3 cm in diameter. See media photos. General surgery was alerted to the condition of the back at this time. Micro was reviewed this patient has had MRSA and Pseudomonas in sputum in the past. He was at high risk for MDR infections. He was awake, and moaning, but unable to follow commands or track. Meds Home Medications and Allergies Home Medications ?Medication ?Instructions ?Recorded ?Confirmed ?Type Battery Powered Lift #1 ea 03/02/18 04/26/25 Rx Power Chair #1 ea 10/16/18 04/26/25 Rx Disabled Parking #1 ea 01/15/19 04/26/25 Rx Shower Chair #1 ea 07/04/19 04/26/25 Rx ferrous sulfate 325 mg (65 mg 130 mg PO DAILY 10/29/21 05/08/25 History iron) tablet XL mattress for semi-electric #1 ea 09/27/22 04/26/25 Rx hospital bed baclofen 5 mg/5 mL oral solution 5 mg (5 mL) PO DAILY #473 mL 01/20/23 05/08/25 Rx syringe with needle 3 mL 20 gauge #1 ea 08/10/23 04/26/25 History x 1 (BD Luer-Rafael Syringe) Mattress #1 ea 03/28/24 04/26/25 Rx Semi-electric hospital bed #1 ea 03/28/24 04/26/25 Rx apixaban 5 mg tablet (Eliquis) 5 mg PO BID #60 tabs 08/15/24 05/08/25 Rx blood-glucose meter (True Metrix #1 ea 12/05/24 04/26/25 History Air Glucose Meter) glucagon 1 mg solution for 1 mg IM ONCE 12/05/24 05/08/25 History injection (Glucagon Emergency Kit) folic acid 1 mg tablet 1 mg PO DAILY #90 tabs 12/13/24 05/08/25 Rx Lingraphica Communication Device #1 ea 01/23/25 04/26/25 Rx scopolamine base 1 mg over 3 days 1 patch topical Q3D #24 ea 03/15/25 05/08/25 Rx transdermal patch sodium chloride 0.9 % for 2.5 ml inhalation Q12H PRN 03/15/25 05/08/25 Rx nebulization shortness of breath or wheezing #300 mL suction catheter kit #5 ea 03/20/25 04/26/25 Rx sertraline 100 mg tablet 200 mg (2 x 100 mg) PO DAILY #60 05/01/25 05/08/25 Rx tabs banana 1 ea PO 4XD #450 ea 05/02/25 05/08/25 Rx flakes-transgalactooligosaccharide oral powder packet (Banatrol Plus oral powder packet) midodrine 10 mg tablet 10 mg feeding tube Q8H #270 tabs 05/06/25 05/08/25 Rx Allergies Allergy/AdvReac Type Severity Reaction Status Date / Time Penicillins (PENICILLINS) Allergy Severe RASH Verified 05/09/25 09:51 levofloxacin Allergy Intermediate Rash Verified 05/09/25 09:51 Review of Systems Review of Systems Narrative: Not obtainable due to cognition. Exam Vital Signs (past 8 hours): - 05/09/25 01:00 05/09/25 01:00 05/09/25 01:30 Temperature Pulse Rate 90 94 H Respiratory Rate Blood Pressure 108/81 Pulse Oximetry 99 99 Oxygen Delivery Method Room Air 05/09/25 01:30 05/09/25 02:00 05/09/25 02:00 Temperature Pulse Rate 98 H Respiratory Rate Blood Pressure 102/72 97/73 Pulse Oximetry 98 Oxygen Delivery Method 05/09/25 02:30 05/09/25 02:30 05/09/25 03:00 Temperature Pulse Rate 99 H Respiratory Rate Blood Pressure 101/72 104/71 Pulse Oximetry 99 Oxygen Delivery Method 05/09/25 03:00 05/09/25 05:00 Temperature 99 F Pulse Rate 101 H 70 Respiratory Rate 16 Blood Pressure 152/87 H Pulse Oximetry 99 96 Oxygen Delivery Method Room Air Oxygen Delivery Method Room Air Narrative Exam Narrative: He was cachectic and chronically ill in appearance. He was moaning. He was a tracheostomy in place. Pupils are symmetric. Conjugate gaze as noted. He has little or no spontaneous movement of arms or legs. He has thin arms and legs. His lungs are notable for scattered rhonchi in his heart is regular. His abdomen is flat, and non tender to palpation. A J-tube is in place. Extremities are atrophied and there was no edema. The skin is notable for very large area of skin pressure injury over the sacrum and lower back as well as a wound in the right paraspinal area above the pelvis. See media photos for this. Objective Imaging Abdominal x-ray: Radiologist's impression: 05/09 01:49: Likely extra luminal position of PEG tube in lateral right peritoneal space with contrast seen in right peritoneal space. Peritoneal free air cannot be excluded. 05/09 01:27: PEG tube balloon appears to be within the right abdominal peritoneal space with contrast extravasation into the peritoneal space as above. Findings were discussed with ordering physician at the time of dictation. 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 Father No problems noted. Social History marital status: unmarried,single details: Lives independantly with part-time caregivers household members: none lives independently: Yes occupational status: disabled Tobacco & Substance Use Smoking Status: Never smoker alcohol intake: never substance use type: marijuana Assessment & Plan Assessment & Plan narrative: 1. Peg tube in false lumen, removed. 2. Closure of gastrostomy track and placement of J-tube, active. 3. Septic shock with source unclear, differential of lung with history of MRSA and Pseudomonas versus peritonitis verses back infected wounds. Active. 4. Severe soft tissue injury of sacrum with area of induration and a wound of 2 cm in diameter, active. 5. Chronic uncuffed tracheostomy, active. 6. Severe volume depletion, active. 7. Pseudobulbar palsy, and spastic left hemiparesis with long-term tracheostomy and history of recurrent aspiration pneumonia. Plan: -broad-spectrum antibiotics including cefepime (penicillin allergy (close, and vancomycin. -aggressive fluid resuscitation and wean norepinephrine. -monitor blood cultures. -discuss wound with General surgery, may need debridement. -follow cultures and recheck a lactic acid in 2 hours, this was initially normal. FULL CODE Mother is proxy decision maker. Prognosis is guarded. Discussed with PCP, Dr. Marshall. Time-Based Coding :: 45 min spent with patient and on the chart (including review of chart, obtaining history, exam, reviewing outside data, placing orders, documenting exam and treatment plan, and counseling patient) on 05/09.
--- NOTE | 2025-05-09 08:55 | PM.HP.IH.1 ---
History of Present Illness History of Present Illness Date Patient Seen: 05/09/25 Time Patient Seen: 08:56 Chief complaint: feeding tube issues- pain and nothing going in Narrative: Jonnie is a 45-year-old man who has had a feeding tube that became dislodged. He went to the ER on May 05 attempt was made to replace a feeding tube but was unsuccessful. A coude catheter was placed into the tract. He saw Dr. Maged Escalona yesterday in the clinic and Dr. Escalona was able to place a Jones catheter into the tract. A drain study was performed yesterday which showed that the tube was in the stomach. He was brought into emergency overnight complaining of ?feeding tube not functioning?. He then had a KUB which suggested the feeding tube was no longer in the stomach and contrast was seen in the peritoneal cavity. I spoke to the patient's mother Marianela by phone at 10:20 this morning. She states that when they got home after the doctor's appointments and imaging he took a nap first then she attempted to start tube feeds at about 7:00 p.m.. Tube feeds were not flowing and she does not believe much if any would have entered his stomach or peritoneal cavity. Then she attempted to give him water which caused pain. She then stopped brought him to emergency room. 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 Father No problems noted. Social History marital status: unmarried,single details: Lives independantly with part-time caregivers household members: none lives independently: Yes occupational status: disabled alcohol intake: never substance use type: marijuana Meds Home Medications and Allergies Home Medications ?Medication ?Instructions ?Recorded ?Confirmed ?Type Battery Powered Lift #1 ea 03/02/18 04/26/25 Rx Power Chair #1 ea 10/16/18 04/26/25 Rx Disabled Parking #1 ea 01/15/19 04/26/25 Rx Shower Chair #1 ea 07/04/19 04/26/25 Rx ferrous sulfate 325 mg (65 mg 130 mg PO DAILY 10/29/21 05/08/25 History iron) tablet XL mattress for semi-electric #1 ea 09/27/22 04/26/25 Rx hospital bed baclofen 5 mg/5 mL oral solution 5 mg (5 mL) PO DAILY #473 mL 01/20/23 05/08/25 Rx syringe with needle 3 mL 20 gauge #1 ea 08/10/23 04/26/25 History x 1 (BD Luer-Rafael Syringe) Mattress #1 ea 03/28/24 04/26/25 Rx Semi-electric hospital bed #1 ea 03/28/24 04/26/25 Rx apixaban 5 mg tablet (Eliquis) 5 mg PO BID #60 tabs 08/15/24 05/08/25 Rx blood-glucose meter (True Metrix #1 ea 12/05/24 04/26/25 History Air Glucose Meter) glucagon 1 mg solution for 1 mg IM ONCE 12/05/24 05/08/25 History injection (Glucagon Emergency Kit) folic acid 1 mg tablet 1 mg PO DAILY #90 tabs 12/13/24 05/08/25 Rx Lingraphica Communication Device #1 ea 01/23/25 04/26/25 Rx scopolamine base 1 mg over 3 days 1 patch topical Q3D #24 ea 03/15/25 05/08/25 Rx transdermal patch sodium chloride 0.9 % for 2.5 ml inhalation Q12H PRN 03/15/25 05/08/25 Rx nebulization shortness of breath or wheezing #300 mL suction catheter kit #5 ea 03/20/25 04/26/25 Rx sertraline 100 mg tablet 200 mg (2 x 100 mg) PO DAILY #60 05/01/25 05/08/25 Rx tabs banana 1 ea PO 4XD #450 ea 05/02/25 05/08/25 Rx flakes-transgalactooligosaccharide oral powder packet (Banatrol Plus oral powder packet) midodrine 10 mg tablet 10 mg feeding tube Q8H #270 tabs 05/06/25 05/08/25 Rx Allergies Allergy/AdvReac Type Severity Reaction Status Date / Time Penicillins (PENICILLINS) Allergy Severe RASH Verified 05/09/25 09:51 levofloxacin Allergy Intermediate Rash Verified 05/09/25 09:51 Exam Vital Signs (past 8 hours): - 05/09/25 01:00 05/09/25 01:00 05/09/25 01:30 Temperature Pulse Rate 90 94 H Respiratory Rate Blood Pressure 108/81 Pulse Oximetry 99 99 Oxygen Delivery Method Room Air 05/09/25 01:30 05/09/25 02:00 05/09/25 02:00 Temperature Pulse Rate 98 H Respiratory Rate Blood Pressure 102/72 97/73 Pulse Oximetry 98 Oxygen Delivery Method 05/09/25 02:30 05/09/25 02:30 05/09/25 03:00 Temperature Pulse Rate 99 H Respiratory Rate Blood Pressure 101/72 104/71 Pulse Oximetry 99 Oxygen Delivery Method 05/09/25 03:00 05/09/25 05:00 Temperature 99 F Pulse Rate 101 H 70 Respiratory Rate 16 Blood Pressure 152/87 H Pulse Oximetry 99 96 Oxygen Delivery Method Room Air Oxygen Delivery Method Room Air Narrative Exam Narrative: Nonverbal Abdomen tender to palpation Objective Labs 05/09/25 09:15 05/09/25 09:15 Assessment & Plan Assessment and plan (1) PEG tube malfunction: Status: Acute Plan I spoke to Jonnie's mother by phone. Explained the situation and recommended that I proceed to the operating room for a diagnostic laparoscopy, possible washout, possible exploratory laparotomy and hopefully we can reestablish enteral access the same. Time-Based Coding :: [TOTAL MINUTES] spent with patient and on the chart (including review of chart, obtaining history, exam, reviewing outside data, placing orders, documenting exam and treatment plan, and counseling patient) on [DATE]. PROFEE Cardiovascular Rn Document charge(s): No
--- NOTE | 2025-05-09 09:24 | DIET.CONS ---
Addendum entered by Flakita Hopkins 05/09/25 15:24: Pt was still off floor earlier this afternoon. Per nursing, no plans to start feeds today. Original Note: Dietary Consultation Note Admission Date: 05/09/2025 01:53 Assessment: 45 y M admitted for replacement of PEG. Dietitian consulted for NPO pending TF placement. EMR reviewed as pt is down in OR. Pt seeming to have issues with tube feed since 05/05. Tube feed diet order pending re-establishment of enteral access. Previously has experienced lots of diarrhea on Jevity 1.2. Usually does banatrol mixed with formula, which is not available at this time here. Will trial Pivot 1.5 first then. Last home routine noted from February 2025 is getting 2000 kcals, 96 g protein, and 3-4 banatrol packets daily. Bolus of 325 mL of [employer] Peptide 1.5 over 1 hour, 4 times daily. Formula may have changed based on pt's increased nutrients needs with hx of protein calorie malnutrition. Will f/u with Marianela when diet is started. Ht: 174.73 cm Wt: 77.111 kg BMI: 25.2 UBW: 160 lb (72 kg) Last BM: 05/07/25 (05/09/25 04:14) MNA: Krishan Score: 8 Diet: 05/09/25 03:54 NPO Diet Diet Modifications: NPO Type: Strict Nutrition Diagnosis: Inadequate oral intake r/t dysphagia aeb PEG tube Interventions: 1. Bolus feed of 300 mL Pivot 1.5 Q4 a day, feeds lasting an hour. Add banatrol to bolus 3x a day (home routine). Flush 30 mL free water before and after bolus. Flush 250 mL free water Q6H. Feeds provide 1800 kcals, 112 g protein, and feeds plus flush provides 2215 mL water EER: home routine- 2000 kcals, 100 g protein, 2300 mL fluid (30mL/kg) Monitoring/Evaluations: confirmed PEG placement Electronically Signed by: Flakita Hopkins 05/09/25 09:24 Clinical Dietitian [address] [id number]
--- NOTE | 2025-05-09 09:33 | PC.NURSE ---
Day shift: Of unit and down to surgery for a procedure at approx 0925.
[2025-05-09 09:36] LABS: Hematocrit 37.1 % (41-53); Hemoglobin 12.1 g/dL (13.5-17.5); Mean Corpuscular HGB Conc 32.5 % (30-36); Mean Corpuscular Hemoglobin 25.2 PG (26-34); Mean Corpuscular Volume 77.6 fL (80-100); Platelet Count 498 X10^3/uL (150-400)
[2025-05-09 09:46] LABS: Lactate (Lactic Acid) 1.8 mmol/L (0.7-2.1)
[2025-05-09 09:47] LABS: Alanine Aminotransferase 11 IU/L (<50); Albumin 4.1 g/dL (3.5-5.0); Albumin Globulin Ratio 1.0 (1.0-2.8); Alkaline Phosphatase 96 U/L (38-126); Blood Urea Nitrogen 23 mg/dL (9-20); Calcium 9.0 mg/dL (8.4-10.2); Carbon Dioxide 21 mmol/L (22-32); Chloride 102 mmol/L (98-107); Estimated Glomerular Filt Rate > 60 mL/min (>60); Globulin 4.0 g/dL (1.7-4.1); Glucose 67 mg/dL (70-99); HEMOLYSIS < 15 (0-50); Potassium 4.4 mmol/L (3.4-5.1); Sodium 137 mmol/L (137-145); Total Protein 8.1 g/dL (6.3-8.2)
[2025-05-09] MEDS: LACTATED RINGERS 1,000 ML 42 ML IV (10:42)
--- NOTE | 2025-05-09 11:47 | SUR.OPER ---
Supine on padded OR bed, head on pillow, arms padded and tucked at sides, legs uncrossed, safety belt at thigh, tape over blanket over lower legs .
--- NOTE | 2025-05-09 12:02 | PC.NURSE ---
Day shift: Pt remains off unit (1200).
--- NOTE | 2025-05-09 13:28 | PM.OP.1 ---
Operative Date/Time/Diagnoses Date of procedure: 05/09/25 Time of procedure: 13:28 Pre-op diagnosis: Malfunction of gastrostomy tube Post-op diagnosis: other (Gastric perforation) Procedure & Clinicians Procedure: Diagnostic laparoscopy converted to exploratory laparotomy Peritoneal lavage Takedown gastrostomy Creation of jejunostomy feeding tube Same procedure(s) as scheduled: No Surgeon: Alen Naqvi Click Yes if Unassisted: Yes Anesthesia Type: General Operative Notes Findings: Disruption of the gastrostomy where the stomach was adhered to the abdominal wall with gastric leakage Applied: none Estimated Blood Loss (mL): 50 Procedure in detail: The patient is a 45-year-old man with cerebral palsy who was admitted for malfunction of a gastrostomy tube. He was consented for diagnostic laparoscopy through his mother via telephone. He became quite tachycardic prior to going back to the operating room. The patient was brought to the operating room and general endotracheal anesthesia was induced through the pre-existing tracheostomy. The abdomen was prepped and draped in the usual fashion and a time-out was performed. We started with a 1 cm infraumbilical incision. Lindsay port was placed the abdomen was insufflated to 15 mmHg and a camera was inserted. There was no evidence of injury from the entry. There was evidence of leakage from the gastrostomy near its junction with the anterior abdominal wall and there was turbid fluid in the right abdomen. At this point we converted to an exploratory laparotomy. A midline incision was created from 4 fingerbreadths below the umbilicus to 5 fingerbreadths above the umbilicus. An Kolton wound retractor was placed in the wound. The abdomen was washed out with a total of 6 L of sterile saline by the end of the case which led to clear return. We then took down the existing gastrostomy using a TA stapler with a green load to divide the stomach. The staple line was oversewn with multiple interrupted 3-0 silk imbricating sutures. The remainder of the tract was excised from the abdominal wall leaving a 1.5 cm circular defect in the upper midline of the abdominal wall. This was then closed with 3 interrupted 0 Vicryl sutures. We then created a jejunostomy using a Witzel technique. An 18 gauge red Maria catheter was inserted into the proximal jejunum about 15 cm from the ligament of Treitz in a superior to inferior direction. The jejunum was then sutured to the anterior abdominal wall using 5 interrupted 3-0 silk sutures. The red Maria was secured to the skin with a 2-0 nylon stitch. We then placed a 19 round Shaun drain across the upper abdomen starting in the left upper quadrant near the new jejunostomy and traversing past the anterior wall of the stomach and exiting the abdominal wall in the right midabdomen. The Shaun drain was secured to the skin with a 2-0 nylon stitch. We injected Exparel into the fascia. The midline incision was closed with a running 0 PDS suture. The midline wound was closed with luis. The upper midline wound where the prior gastrostomy was previously located was partially closed and packed with the corner of a 4 x 4. Sterile dressings were applied over the midline wound. A bulb suction was attached to the Shaun drain. EBL: 50 mL Disposition: ICU Complications: none Post-operative Condition: stable Disposition: PACU
[2025-05-09] MEDS: NOREPINEPHRINE BITARTRATE/D5W 4 MG/250 ML PLAST..BAG 37.6 MG IV (13:45)
[2025-05-09] MEDS: DEXTROSE 50 % IN WATER 25 GM/50 ML SYRINGE IV (13:55)
[2025-05-09] MEDS: fentaNYL 100 MCG/2 ML INJ IV ×2 (14:18→14:31)
[2025-05-09] MEDS: ACETAMINOPHEN IV 1,000 MG/100 ML VIAL 400 MG IV (14:24)
--- NOTE | 2025-05-09 14:29 | CM.DANOTE ---
Initial DCP Assessment Visit Note Reviewed EMR and team rounds for pt's medical status and updates. Met with pt/PCP at bedside earlier this morning, pt was non-verbal, however was able to nodd yes/shake his head no when asked questions by Dr. Marshall, indicating that he was in a lot of pain. Pt has cerebral palsy, is total care and his mom is his SHAUN cg. Pt has his own wheelchair in the room, his mother will transport him home at time of d/c. Payor: Medicaid PCP: Dr. Marshall Surgeon: Dr. Naqvi Pt with a PMH of cerebral palsy, spastic left-hemiparesis, tracheotomy, feeding tube, and a hx of recurrent aspiration pneumonia was recently seen in the ED on 05/05 due to compications with his feeding tube not working. A new catheter was placed for the feeding tube, however then is became blocked completely. Pt is c/o acute abdominal pain while being palpated in the ED. Surgery was consulted, and the plan was made to admit for plan of Dr. Naqvi taking him to the OR (today) for a scope and complete repacement/relocation of the feeding tube. DCP will continue to monitor for final d/c needs/recommendations. Discharge Planning/Care Management CM Discharge Assessment Start: 05/09/25 04:14 Freq: Status: Active Protocol: Document 05/09/25 14:25 DPL (Rec: 05/09/25 14:29 DPL [id number]) Discharge Planning Assessment Assigned Discharge ARIC Bonilla Consultative Sales Associate Advance Directives? Yes: DPOA Advance Directives No on File History Provided By Medical Record Expected Length of 4 Stay Has Patient been No admitted in last 30 days? Prior Living House Arrangements Household Members none Type of Relies on Others transporation used prior to admit Independent with ADL No 's Is patient alert and No oriented? Needs Assistance Bathing,Eating,Grooming,Meal Prep,Toileting,Managing With Medications,Home Chores / Shopping Comment Pt has cerebral palsy and is total care. DME Already Rented / Wheelchair Owned Comment Patient is mostly bedbound/wheelchair bound at baseline with neurological issues from previous brain tumor. Has home ashley lift Patient/Family Home with Home Health Preference Comment Mother primary cg, SHAUN Discharge Plan Home Referrals Initiated Home Health If patient plan is No home with home health: Has signed face to face form been completed? Whiteboard Updated Yes in Patient Room with name and ext. # of Information Operator Review Status In Process Please Provide Date 05/09/25 Initial DC Assessment Was Performed
[2025-05-09] MEDS: SODIUM CHLORIDE 0.9% 1,000 ML 1000 ML IV (15:00)
--- NOTE | 2025-05-09 15:10 | SUR.PHASEI ---
Bedside report given to Thea GREER in ICU; surgical wounds viewed, medications discussed, updated RN on pt's surgery; all questions answered
--- NOTE | 2025-05-09 15:13 | SUR.PHASEI ---
Pt's BG on arrival to PACU at 1355 56; VO per Cal TINOCO to give 1/2 amp (25mg) of D50 x 1 now. Recheck of BG at 1415 was 139. No further orders
--- NOTE | 2025-05-09 15:16 | DI.RAD.S_ITS ---
PROCEDURE: XR CHEST 1V INDICATIONS: dyspnea TECHNIQUE: One view of the chest was acquired. COMPARISON: [facility], CR, XR CHEST 1V, 11/21/2024, 17:53. FINDINGS: Surgical changes and devices: Tracheostomy tube. Lungs and pleura: Diffuse opacity within the left hemithorax. Mediastinum: Mediastinal contours appear normal. Heart size is enlarged. Bones and chest wall: No suspicious bony lesions. Overlying soft tissues appear unremarkable. IMPRESSION: Diffuse left hemithorax opacity. This may represent effusion. Underlying areas of consolidation is also suspected particularly within the upper lobe. Dictated by: Ruthann Woodward M.D. on 05/09/2025 at 15:56 Approved by: Ruthann Woodward M.D. on 05/09/2025 at 15:56
--- NOTE | 2025-05-09 16:03 | PC.NURSE ---
Patient arrived from PACU to room 226 at aproximately 1440. Norepinephrine to the RFA PIV, patent IV line. Surgical incisions to midline, covered with gauze bandages, shadow drainage present. Pressure injury noted on coccyx, photos in chart, Dr. Saunders hospitalist at bedside. Short time later, mother of patient at bedside. States she gave pt chocolate cake for his birthday two days ago. This RN and other EXCELLENCE MANAGER provided oral care, dark brown substance cleaned from mouth, pt's teeth brushed. Mother states she will be out of town for the next few hours and to call if needed. Pt eyes closed, appears comfortable. Feet placed in moore boots (brown and white inflatable pressure-injury prevention boots). Pt Q1-2H turns. Norepinephrine off. BP WDL. Care ongoing.
[2025-05-09] MEDS: VANCOMYCIN 1,250 MG/250 ML PIGGYBACK 250 MG IV (16:23)
--- NOTE | 2025-05-09 16:50 | PM.EVENT ---
Event Note Date Patient Seen: 05/09/25 Time Patient Seen: 16:51 Event Note (Rapid Response, Code, or fall): ok to use j tube for crushed meds, water and tube feeds at 10 mL/hr
[2025-05-09 16:51] LABS: MRSA (Nasal) PCR DETECTED (Not Detect)
[2025-05-09] MEDS: ALBUTEROL/IPRATROPIUM 3 ML AMPUL INH (19:48)
[2025-05-09] MEDS: CEFEPIME 2 GM in SODIUM CHLORIDE 0.9% 100 ML IV (21:45)
[2025-05-10] VITALS (96 sets, daily range): BP systolic 106–129; BP diastolic 72–93; PULSE 103–118; RESP 4–27; TEMP 36.6–36.8; O2SAT 75–100
[2025-05-10] MEDS: SODIUM CHLORIDE 0.9% 1,000 ML 100 ML IV ×3 (02:26→22:17)
[2025-05-10] MEDS: VANCOMYCIN 1,250 MG/250 ML PIGGYBACK 250 MG IV ×2 (03:34→15:40)
[2025-05-10] MEDS: CEFEPIME 2 GM in SODIUM CHLORIDE 0.9% 100 ML IV ×2 (08:53→20:25)
[2025-05-10] MEDS: SODIUM CHLORIDE 0.9% FLUSH 10 ML IV ×2 (08:53→20:26)
[2025-05-10] MEDS: ALBUTEROL/IPRATROPIUM 3 ML AMPUL INH ×2 (09:26→19:08)
[2025-05-10 09:59] LABS: Base Excess VBG -6.8 mmol/L (0-4); HCO3 VBG 20 mmol/L (24-28); Oxygen Saturation VBG 60 % (70-75); PCO2 VBG 46.0 mmHg (45-50); PO2 VBG 37 mmHg (35-45); Total CO2 VBG 20 mmol/L (24-29); pH VBG 7.25 (7.33-7.43)
--- NOTE | 2025-05-10 10:17 | DIET.PN1 ---
Addendum entered by Flakita Hopkins 05/10/25 16:11: Tube feeds at 10 mL/h. Per surgeon, recc remaining at 10 mL/hr until tachycardia resolves. Tube feed order edited to reflect this. Original Note: Dietary Progress Note Assessment: Updated tube feed order r/t to pt now j-tube. Per surgeon note, ok to start tube feeds at 10 ml/hr. Ht: 174.73 cm Wt: 77.111 kg BMI: 25.2 UBW: 160 lb (72 kg) Last BM: 05/07/25 (05/09/25 09:52) MNA: Krishan Score: 10 Diet: 05/09/25 03:54 NPO Diet Diet Modifications: NPO Type: Strict Labs: RBC 4.78 X10^6/uL (4.5-5.9) 05/09/25 09:15 Hgb 12.1 g/dL (13.5-17.5) L 05/09/25 09:15 Hct 37.1 % (41-53) L 05/09/25 09:15 Creatinine 0.62 mg/dL (0.66-1.25) L 05/09/25 09:15 Lactate 1.8 mmol/L (0.7-2.1) 05/09/25 09:15 Nutrition Diagnosis: Inadequate oral intake r/t dysphagia with PEG malfunction aeb new j-tube Interventions: 1. Start continuous enteral nutrition of Pivot 1.5 at 10 mL/hr for first 24 hours. If tolerating after the first 24 hours and as directed by surgeon, can advance to 20 ml/hr and titrate up by 10 mL Q12H until goal rate of 50 mL/hr. 2. Flush 60 mL fluids Q4H. Fluid needs are 2300 mL (30 mL/kg). Feeds+flush+IV fluids currently meeting needs, titrate down IV fluids as feeds are increased. Goal rate provides 1800 kcals and 112 g protein EER: 1900 kcals (25 kcals/kg per BMI) 100-115 g protein (1.25-1.5 g/kg per ICU and wounds) Monitoring/Evaluations: TF tolerance, labs Electronically Signed by: Flakita Hopkins 05/10/25 10:17 Clinical Dietitian [address] [address]
[2025-05-10 10:26] LABS: Alanine Aminotransferase 9 IU/L (<50); Albumin 3.1 g/dL (3.5-5.0); Albumin Globulin Ratio 0.9 (1.0-2.8); Alkaline Phosphatase 79 U/L (38-126); Blood Urea Nitrogen 19 mg/dL (9-20); Calcium 8.0 mg/dL (8.4-10.2); Carbon Dioxide 19 mmol/L (22-32); Chloride 110 mmol/L (98-107); Estimated Glomerular Filt Rate > 60 mL/min (>60); Globulin 3.5 g/dL (1.7-4.1); Glucose 84 mg/dL (70-99); HEMOLYSIS < 15 (0-50); Potassium 3.5 mmol/L (3.4-5.1); Sodium 139 mmol/L (137-145); Total Protein 6.6 g/dL (6.3-8.2)
[2025-05-10 10:27] LABS: Lactate (Lactic Acid) 1.2 mmol/L (0.7-2.1)
[2025-05-10 10:30] LABS: Add Manual Diff / Slide Review NO; Hematocrit 30.7 % (41-53); Hemoglobin 10.0 g/dL (13.5-17.5); Lymphocytes Absolute Auto 600 /uL (1100-4500); Mean Corpuscular HGB Conc 32.5 % (30-36); Mean Corpuscular Hemoglobin 25.5 PG (26-34); Mean Corpuscular Volume 78.5 fL (80-100); Platelet Count 353 X10^3/uL (150-400)
--- NOTE | 2025-05-10 13:17 | DI.RAD.S_ITS ---
PROCEDURE: XR CHEST 1V INDICATIONS: tachycardia TECHNIQUE: One view of the chest was acquired. COMPARISON: [facility], CR, XR CHEST 1V, 05/09/2025, 15:14. [facility], CR, XR CHEST 1V, 11/21/2024, 17:53. [facility], CT, CT ANGIO CHEST PE PROTOCOL, 11/21/2024, 20:22. FINDINGS: The patient is rotated to the left for this study. Surgical changes and devices: There is a tracheostomy tube seen in place. Lungs and pleura: Significant volume loss is seen on the left side. There is left-sided interstitial prominence. There is blunting of the left costophrenic angle. Mediastinum: Cardiac and mediastinal silhouettes are partially obscured, yet are regarded to be stable. Bones and chest wall: No suspicious bony lesions. Overlying soft tissues appear unremarkable. IMPRESSION: Left-sided volume loss with interstitial prominence. Please consider pulmonary edema versus infection Likely left-sided pleural effusion. Tracheostomy tube in place. Dictated by: Johnnie Ramesh M.D. on 05/10/2025 at 12:38 Approved by: Johnnie Ramesh M.D. on 05/10/2025 at 12:44
[2025-05-10] MEDS: POTASSIUM CHLORIDE IN WATER 10 MEQ/100 ML PIGGYBACK 100 MEQ IV ×2 (14:29→15:39)
--- NOTE | 2025-05-10 15:44 | P.PN_ITS ---
Subjective Subjective Date Patient Seen: 05/10/25 Interval history: Initially after surgery his hemodynamics improved rather quickly and he was able to get off pressors but today he has become tachycardic again. He has been started on trickle tube feeds at 10 mL/hr today. Exam Vital Signs (past 8 hours): - 05/10/25 07:45 05/10/25 07:50 05/10/25 08:00 Temperature 98 F Pulse Rate 107 H 105 H Respiratory Rate 21 21 Blood Pressure Pulse Oximetry 96 97 Oxygen Delivery Method Fraction of Inspired Oxygen 05/10/25 08:00 05/10/25 08:15 05/10/25 08:30 Temperature Pulse Rate 105 H 107 H Respiratory Rate 21 21 Blood Pressure 111/73 Pulse Oximetry 96 95 Oxygen Delivery Method Fraction of Inspired Oxygen 05/10/25 08:45 05/10/25 09:00 05/10/25 09:00 Temperature Pulse Rate 109 H 109 H Respiratory Rate 22 22 Blood Pressure 114/74 Pulse Oximetry 91 92 Oxygen Delivery Method Fraction of Inspired Oxygen 05/10/25 09:15 05/10/25 09:27 05/10/25 09:30 Temperature Pulse Rate 108 H 115 H 108 H Respiratory Rate 22 20 22 Blood Pressure Pulse Oximetry 97 95 97 Oxygen Delivery Method Trach Collar Fraction of Inspired Oxygen 05/10/25 09:45 05/10/25 10:00 05/10/25 10:00 Temperature Pulse Rate 112 H 116 H Respiratory Rate 25 H 27 H Blood Pressure 106/72 Pulse Oximetry 95 95 Oxygen Delivery Method Fraction of Inspired Oxygen 05/10/25 10:15 05/10/25 10:30 05/10/25 10:45 Temperature Pulse Rate 115 H 114 H 114 H Respiratory Rate 25 H 25 H 23 Blood Pressure Pulse Oximetry 95 96 96 Oxygen Delivery Method Fraction of Inspired Oxygen 05/10/25 11:00 05/10/25 11:00 05/10/25 11:15 Temperature Pulse Rate 115 H 115 H Respiratory Rate 23 23 Blood Pressure 112/80 Pulse Oximetry 97 98 Oxygen Delivery Method Fraction of Inspired Oxygen 05/10/25 11:30 05/10/25 11:45 05/10/25 12:00 Temperature Pulse Rate 115 H 116 H Respiratory Rate 23 23 Blood Pressure 108/74 Pulse Oximetry 98 98 Oxygen Delivery Method Fraction of Inspired Oxygen 05/10/25 12:00 05/10/25 12:15 05/10/25 12:24 Temperature 98.3 F Pulse Rate 114 H 113 H Respiratory Rate 23 23 Blood Pressure Pulse Oximetry 98 98 Oxygen Delivery Method Fraction of Inspired Oxygen 05/10/25 12:25 05/10/25 12:30 05/10/25 12:37 Temperature 98.3 F Pulse Rate 112 H Respiratory Rate 23 Blood Pressure Pulse Oximetry 99 Oxygen Delivery Method Aerosol Mask Trach Collar Fraction of Inspired Oxygen 05/10/25 12:45 05/10/25 13:00 05/10/25 13:00 Temperature Pulse Rate 113 H 113 H Respiratory Rate 21 22 Blood Pressure 111/77 Pulse Oximetry 100 99 Oxygen Delivery Method Fraction of Inspired Oxygen 05/10/25 13:15 05/10/25 13:30 05/10/25 13:45 Temperature Pulse Rate 113 H 113 H 112 H Respiratory Rate 23 23 23 Blood Pressure Pulse Oximetry 100 100 100 Oxygen Delivery Method Fraction of Inspired Oxygen 05/10/25 14:00 05/10/25 14:15 05/10/25 14:16 Temperature Pulse Rate 115 H 115 H Respiratory Rate 23 23 Blood Pressure 123/83 Pulse Oximetry 100 100 Oxygen Delivery Method Fraction of Inspired Oxygen 05/10/25 14:16 05/10/25 14:43 Temperature Pulse Rate 115 H 118 H Respiratory Rate 23 24 Blood Pressure Pulse Oximetry 99 93 Oxygen Delivery Method Trach Collar Fraction of Inspired Oxygen 28 Fraction of Inspired Oxygen 28 SaO2/FiO2 Ratio 332 Oxygen Delivery Method Trach Collar Oxygen Flow Rate 6 Narrative Exam Narrative: Abdomen is soft, minimally tender [id number] drain is serosanguineous Objective Labs 05/10/25 10:00 05/10/25 10:00 Labs: Laboratory Results - last 24 hr 05/09/25 05/10/25 05/10/25 15:00 09:56 10:00 WBC 18.8 H RBC 3.92 L Hgb 10.0 L Hct 30.7 L MCV 78.5 L MCH 25.5 L MCHC 32.5 RDW 17.9 H Plt Count 353 Neut % (Auto) 91.7 H Lymph % (Auto) 3.3 L [place] % (Auto) 4.8 Eos % (Auto) 0.0 L Baso % (Auto) 0.2 Neut # (Auto) 30637 H Lymph # (Auto) 600 L [place] # (Auto) 900 Eos # (Auto) 0 Baso # (Auto) 0 VBG pH 7.25 L VBG pCO2 46.0 VBG pO2 37 VBG HCO3 20 L VBG Total CO2 20 L VBG O2 Saturation 60 L VBG Base Excess -6.8 L FiO2 % 28.0 % Sodium 139 Potassium 3.5 Chloride 110 H Carbon Dioxide 19 L BUN 19 Creatinine 0.54 L Estimated GFR > 60 BUN/Creatinine Ratio 35.2 H Glucose 84 Lactate 1.2 Calcium 8.0 L Total Bilirubin 0.4 AST 21 ALT 9 Alkaline Phosphatase 79 Total Protein 6.6 Albumin 3.1 L Globulin 3.5 Albumin/Globulin Ratio 0.9 L Nasal Screen MRSA (PCR) Detected H Vancomycin Trough 05/10/25 14:17 WBC RBC Hgb Hct MCV MCH MCHC RDW Plt Count Neut % (Auto) Lymph % (Auto) [place] % (Auto) Eos % (Auto) Baso % (Auto) Neut # (Auto) Lymph # (Auto) [place] # (Auto) Eos # (Auto) Baso # (Auto) VBG pH VBG pCO2 VBG pO2 VBG HCO3 VBG Total CO2 VBG O2 Saturation VBG Base Excess FiO2 % Sodium Potassium Chloride Carbon Dioxide BUN Creatinine Estimated GFR BUN/Creatinine Ratio Glucose Lactate Calcium Total Bilirubin AST ALT Alkaline Phosphatase Total Protein Albumin Globulin Albumin/Globulin Ratio Nasal Screen MRSA (PCR) Vancomycin Trough 15.4 PFSH Medical History Excessive cerumen in both ear canals Chronic anticoagulation Iron deficiency anemia History of pulmonary embolism Status post radiation therapy Chronic anticoagulation Tracheostomy in place Sacral decubitus ulcer, stage III Protein calorie malnutrition Hyponatremia Dysphagia Recurrent aspiration pneumonia Depression, major, recurrent Jejunostomy tube present Influenza A Anemia Pneumonia 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 Father No problems noted. Social History marital status: unmarried,single details: Lives independantly with part-time caregivers household members: none lives independently: Yes occupational status: disabled Smoking Status: Never smoker alcohol intake: never substance use type: marijuana Assessment & Plan Assessment and plan (1) PEG tube malfunction: Status: Acute (2) Encounter for feeding tube placement: Status: Acute Plan Low suspicion that his persistent tachycardia is related to an abdominal source Pulmonary or other organ system should be considered Wound care consult for sacral and iliac skin breakdown I recommend continuing tube feeds at 10 mL/hr for now until his tachycardia resolves Time-Based Coding :: [TOTAL MINUTES] spent with patient and on the chart (including review of chart, obtaining history, exam, reviewing outside data, placing orders, documenting exam and treatment plan, and counseling patient) on [DATE]. PROFEE Technical Support Professional Document charge(s): No
[2025-05-10] MEDS: VANCOMYCIN TROUGH 1 REQUEST MISC (16:01)
--- NOTE | 2025-05-10 16:23 | CM.DPC ---
DCP Cont: Per Surgeon, pt seemed to tolerate feeding tube replacement and will begin trickle feeds today and pt somewhat tachy and not yet stable for discharge. Wound Consult order placed yesterday 05/09. ROBIN called [facility] in the afternoon today and alerted them to the order and unfortunately their team is gone for the day and Dr. Shore will be back Sunday 05/13 to consult. Per Marketing Finance Specialist, pt's tube feeding orders will be changing at discharge from his baseline tube feeds and his enteral company will need to be alerted. ROBIN confirmed that pt gets his tube feeding and supplies from [facility] through their enteral program [phone]. SW called and had to leave detailed msg requesting call back to coordinate his tube feeding for discharge. Plan: ROBIN to follow closely for confirming pt's HH agency as well as Wound Consult and call back from [facility] to coordinate tube feeding orders at d/c. ARIC Ca
--- NOTE | 2025-05-10 16:30 | P.PN_ITS ---
Subjective Subjective Date Patient Seen: 05/10/25 Interval history: Chief complaint: Sepsis secondary to a gastric perforation and leak into peritoneum of gastric contents around gastrostomy tube History of present illness: 05/09: Patient is seen at the request of Dr. Naqvi of surgery. Apparently the patient arrived last night with a question of PEG tube dysfunction. A PEG tube was replaced in the ED but was not functioning as expected after placement. The patient was admitted by surgery to the [facility] and this morning taken to the OR for investigation. Prior to this, I was alerted of the patient's clinical status and I did initiate lab tests, blood cultures, IV fluids, and IV cefepime for possible sepsis. [place] [address] with a normal lactic acid. In the OR, the PEG to appeared to be in a false passage. The gastrostomy channel was closed and a J-tube was placed. The peritoneum was washed out. It did not appear grossly that tube feeds were in the peritoneum and the patient was subsequently brought to the ICU where he was on norepinephrine through a peripheral IV and appeared to be very dry with no urine output after 2 L of fluids in the OR. The patient has a noncuffed tracheostomy in place, and severe skin injury to the sacrum including 1 area with possible induration and a wound which is about 2-3 cm in diameter. See media photos. General surgery was alerted to the condition of the back at this time. Micro was reviewed this patient has had MRSA and Pseudomonas in sputum in the past. He was at high risk for MDR infections. He was awake, and moaning, but unable to follow commands or track. 05/10: Patient is minimally responsive white count 55095 92% neutrophils VBG 7.25 pCO2 46 PO2 37 sodium 139 potassium 3.5 chloride 110 CO2 19 BUN 19 creatinine 0.54 Chest x-ray: There is a tracheostomy tube seen in place. Lungs and pleura: Significant volume loss is seen on the left side. There is left-sided interstitial prominence. There is blunting of the left costophrenic angle. Review of systems: Incapable due to unresponsiveness Physical examination: cachectic and chronically ill in appearance (premorbid). Minimally responsive He was a tracheostomy in place. Very weak respiratory effort gross rhonchi on left Heart sounds distant His abdomen is flat, and non tender to palpation. A J-tube is in place. Extremities are atrophied and there was no edema. large area of skin pressure injury over the sacrum and lower back as well as a wound in the right paraspinal area above the pelvis. See media photos for this. Assessment and plan: Peg tube in false lumen, removed, Closure of gastrostomy track and placement of J-tube, active. * Appreciate surgery expertise * Tube feeding at 10 mL an hour per surgery Septic shock with source unclear, differential of lung with history of MRSA and Pseudomonas versus peritonitis verses back infected wounds. Active. * Cultures pending * Continue cefepime vancomycin Severe soft tissue injury of sacrum with area of induration and a wound of 2 cm in diameter, active. * Wound care team Chronic uncuffed tracheostomy, active. * Trach management Severe volume depletion, active. * Continue intravenous fluids Pseudobulbar palsy, and spastic left hemiparesis with long-term tracheostomy and history of recurrent aspiration pneumonia. * Suspect patient has reaspirated Code status: * FULL CODE * Mother is proxy decision maker. * Prognosis is guarded. * Discussed with PCP, Dr. Marshall. Disposition: * Attending is Dr. Naqvi surgery * ICU status * Disposition depending on outcome Time-Based Coding :: 45 min spent with patient and on the chart (including review of chart, obtaining history, exam, reviewing outside data, placing orders, documenting exam and treatment plan, and counseling patient) Exam Vital Signs (past 8 hours): - 05/10/25 08:45 05/10/25 09:00 05/10/25 09:00 Temperature Pulse Rate 109 H 109 H Respiratory Rate 22 22 Blood Pressure 114/74 Pulse Oximetry 91 92 Oxygen Delivery Method Fraction of Inspired Oxygen 05/10/25 09:15 05/10/25 09:27 05/10/25 09:30 Temperature Pulse Rate 108 H 115 H 108 H Respiratory Rate 22 20 22 Blood Pressure Pulse Oximetry 97 95 97 Oxygen Delivery Method Trach Collar Fraction of Inspired Oxygen 05/10/25 09:45 05/10/25 10:00 05/10/25 10:00 Temperature Pulse Rate 112 H 116 H Respiratory Rate 25 H 27 H Blood Pressure 106/72 Pulse Oximetry 95 95 Oxygen Delivery Method Fraction of Inspired Oxygen 05/10/25 10:15 05/10/25 10:30 05/10/25 10:45 Temperature Pulse Rate 115 H 114 H 114 H Respiratory Rate 25 H 25 H 23 Blood Pressure Pulse Oximetry 95 96 96 Oxygen Delivery Method Fraction of Inspired Oxygen 05/10/25 11:00 05/10/25 11:00 05/10/25 11:15 Temperature Pulse Rate 115 H 115 H Respiratory Rate 23 23 Blood Pressure 112/80 Pulse Oximetry 97 98 Oxygen Delivery Method Fraction of Inspired Oxygen 05/10/25 11:30 05/10/25 11:45 05/10/25 12:00 Temperature Pulse Rate 115 H 116 H Respiratory Rate 23 23 Blood Pressure 108/74 Pulse Oximetry 98 98 Oxygen Delivery Method Fraction of Inspired Oxygen 05/10/25 12:00 05/10/25 12:15 05/10/25 12:24 Temperature 98.3 F Pulse Rate 114 H 113 H Respiratory Rate 23 23 Blood Pressure Pulse Oximetry 98 98 Oxygen Delivery Method Fraction of Inspired Oxygen 05/10/25 12:25 05/10/25 12:30 05/10/25 12:37 Temperature 98.3 F Pulse Rate 112 H Respiratory Rate 23 Blood Pressure Pulse Oximetry 99 Oxygen Delivery Method Aerosol Mask Trach Collar Fraction of Inspired Oxygen 05/10/25 12:45 05/10/25 13:00 05/10/25 13:00 Temperature Pulse Rate 113 H 113 H Respiratory Rate 21 22 Blood Pressure 111/77 Pulse Oximetry 100 99 Oxygen Delivery Method Fraction of Inspired Oxygen 05/10/25 13:15 05/10/25 13:30 05/10/25 13:45 Temperature Pulse Rate 113 H 113 H 112 H Respiratory Rate 23 23 23 Blood Pressure Pulse Oximetry 100 100 100 Oxygen Delivery Method Fraction of Inspired Oxygen 05/10/25 14:00 05/10/25 14:15 05/10/25 14:16 Temperature Pulse Rate 115 H 115 H Respiratory Rate 23 23 Blood Pressure 123/83 Pulse Oximetry 100 100 Oxygen Delivery Method Fraction of Inspired Oxygen 05/10/25 14:16 05/10/25 14:30 05/10/25 14:43 Temperature Pulse Rate 115 H 116 H 118 H Respiratory Rate 23 23 24 Blood Pressure Pulse Oximetry 99 98 93 Oxygen Delivery Method Trach Collar Fraction of Inspired Oxygen 28 05/10/25 14:45 05/10/25 15:00 05/10/25 15:00 Temperature 98.2 F Pulse Rate 117 H 118 H Respiratory Rate 23 24 Blood Pressure Pulse Oximetry 94 95 Oxygen Delivery Method Fraction of Inspired Oxygen 05/10/25 15:00 05/10/25 15:15 05/10/25 15:30 Temperature Pulse Rate 117 H 116 H Respiratory Rate 23 23 Blood Pressure 121/82 Pulse Oximetry 95 96 Oxygen Delivery Method Fraction of Inspired Oxygen 05/10/25 15:45 05/10/25 16:00 05/10/25 16:00 Temperature Pulse Rate 117 H 114 H Respiratory Rate 23 23 Blood Pressure 129/84 Pulse Oximetry 97 97 Oxygen Delivery Method Fraction of Inspired Oxygen Fraction of Inspired Oxygen 28 SaO2/FiO2 Ratio 332 Oxygen Delivery Method Trach Collar Oxygen Flow Rate 6 Objective Labs 05/10/25 10:00 05/10/25 10:00 Labs: Laboratory Results - last 24 hr 05/09/25 05/10/25 05/10/25 15:00 09:56 10:00 WBC 18.8 H RBC 3.92 L Hgb 10.0 L Hct 30.7 L MCV 78.5 L MCH 25.5 L MCHC 32.5 RDW 17.9 H Plt Count 353 Neut % (Auto) 91.7 H Lymph % (Auto) 3.3 L [place] % (Auto) 4.8 Eos % (Auto) 0.0 L Baso % (Auto) 0.2 Neut # (Auto) 38315 H Lymph # (Auto) 600 L [place] # (Auto) 900 Eos # (Auto) 0 Baso # (Auto) 0 VBG pH 7.25 L VBG pCO2 46.0 VBG pO2 37 VBG HCO3 20 L VBG Total CO2 20 L VBG O2 Saturation 60 L VBG Base Excess -6.8 L FiO2 % 28.0 % Sodium 139 Potassium 3.5 Chloride 110 H Carbon Dioxide 19 L BUN 19 Creatinine 0.54 L Estimated GFR > 60 BUN/Creatinine Ratio 35.2 H Glucose 84 Lactate 1.2 Calcium 8.0 L Total Bilirubin 0.4 AST 21 ALT 9 Alkaline Phosphatase 79 Total Protein 6.6 Albumin 3.1 L Globulin 3.5 Albumin/Globulin Ratio 0.9 L Nasal Screen MRSA (PCR) Detected H Vancomycin Trough 05/10/25 14:17 WBC RBC Hgb Hct MCV MCH MCHC RDW Plt Count Neut % (Auto) Lymph % (Auto) [place] % (Auto) Eos % (Auto) Baso % (Auto) Neut # (Auto) Lymph # (Auto) [place] # (Auto) Eos # (Auto) Baso # (Auto) VBG pH VBG pCO2 VBG pO2 VBG HCO3 VBG Total CO2 VBG O2 Saturation VBG Base Excess FiO2 % Sodium Potassium Chloride Carbon Dioxide BUN Creatinine Estimated GFR BUN/Creatinine Ratio Glucose Lactate Calcium Total Bilirubin AST ALT Alkaline Phosphatase Total Protein Albumin Globulin Albumin/Globulin Ratio Nasal Screen MRSA (PCR) Vancomycin Trough 15.4 PFSH Medical History Excessive cerumen in both ear canals Chronic anticoagulation Iron deficiency anemia History of pulmonary embolism Status post radiation therapy Chronic anticoagulation Tracheostomy in place Sacral decubitus ulcer, stage III Protein calorie malnutrition Hyponatremia Dysphagia Recurrent aspiration pneumonia Depression, major, recurrent Jejunostomy tube present Influenza A Anemia Pneumonia 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 Father No problems noted. Social History marital status: unmarried,single details: Lives independantly with part-time caregivers household members: none lives independently: Yes occupational status: disabled Smoking Status: Never smoker alcohol intake: never substance use type: marijuana Assessment & Plan Time-Based Coding :: [TOTAL MINUTES] spent with patient and on the chart (including review of chart, obtaining history, exam, reviewing outside data, placing orders, documenting exam and treatment plan, and counseling patient) on [DATE].
[2025-05-10] MEDS: VANCOMYCIN PEAK 1 REQUEST MISC (17:14)
[2025-05-10] MEDS: ACETAMINOPHEN IV 1,000 MG/100 ML VIAL 400 MG IV (22:48)
[2025-05-11] VITALS (107 sets, daily range): BP systolic 103–173; BP diastolic 79–108; PULSE 86–118; RESP 4–32; TEMP 36.5–36.6; O2SAT 72–100
[2025-05-11] MEDS: VANCOMYCIN 1,250 MG/250 ML PIGGYBACK 250 MG IV (02:57)
[2025-05-11 05:54] LABS: Blood Urea Nitrogen 17 mg/dL (9-20); Calcium 7.9 mg/dL (8.4-10.2); Carbon Dioxide 19 mmol/L (22-32); Chloride 111 mmol/L (98-107); Estimated Glomerular Filt Rate > 60 mL/min (>60); Glucose 73 mg/dL (70-99); HEMOLYSIS < 15 (0-50); Potassium 3.1 mmol/L (3.4-5.1); Sodium 138 mmol/L (137-145)
--- NOTE | 2025-05-11 08:12 | PM.PN.IH.1 ---
Subjective Subjective Date Patient Seen: 05/11/25 Time Patient Seen: 08:12 Interval history: POD#2 J-tube, repair PEG malfunction Appears comfortable Exam Vital Signs (past 8 hours): - 05/11/25 00:15 05/11/25 00:30 05/11/25 00:45 Temperature Pulse Rate 101 H 101 H 101 H Respiratory Rate 21 21 20 Blood Pressure Pulse Oximetry 100 98 98 Oxygen Delivery Method Oxygen Flow Rate Fraction of Inspired Oxygen 05/11/25 01:00 05/11/25 01:00 05/11/25 01:15 Temperature Pulse Rate 102 H 103 H Respiratory Rate 21 22 Blood Pressure 120/83 Pulse Oximetry 98 99 Oxygen Delivery Method Oxygen Flow Rate Fraction of Inspired Oxygen 05/11/25 01:30 05/11/25 01:45 05/11/25 02:00 Temperature Pulse Rate 101 H 100 H Respiratory Rate 20 20 Blood Pressure 125/87 Pulse Oximetry 99 99 Oxygen Delivery Method Oxygen Flow Rate Fraction of Inspired Oxygen 05/11/25 02:00 05/11/25 02:01 05/11/25 02:15 Temperature Pulse Rate 101 H 101 H 100 H Respiratory Rate 20 20 20 Blood Pressure Pulse Oximetry 98 99 100 Oxygen Delivery Method Aerosol Mask Oxygen Flow Rate 5 Fraction of Inspired Oxygen 28 05/11/25 02:30 05/11/25 02:45 05/11/25 03:00 Temperature Pulse Rate 101 H 101 H Respiratory Rate 21 20 Blood Pressure 130/85 Pulse Oximetry 100 100 Oxygen Delivery Method Oxygen Flow Rate Fraction of Inspired Oxygen 05/11/25 03:00 05/11/25 03:15 05/11/25 03:30 Temperature 97.7 F Pulse Rate 101 H 100 H 100 H Respiratory Rate 22 21 22 Blood Pressure Pulse Oximetry 100 100 100 Oxygen Delivery Method Oxygen Flow Rate 0 Fraction of Inspired Oxygen 05/11/25 03:45 05/11/25 04:00 05/11/25 04:00 Temperature Pulse Rate 97 H Respiratory Rate 21 Blood Pressure 125/85 Pulse Oximetry 100 Oxygen Delivery Method Aerosol Mask Oxygen Flow Rate Fraction of Inspired Oxygen 05/11/25 04:00 05/11/25 04:15 05/11/25 04:30 Temperature Pulse Rate 95 H 93 H 86 Respiratory Rate 20 19 20 Blood Pressure Pulse Oximetry 100 100 100 Oxygen Delivery Method Oxygen Flow Rate Fraction of Inspired Oxygen 05/11/25 04:45 05/11/25 05:00 05/11/25 05:00 Temperature Pulse Rate 87 97 H Respiratory Rate 20 21 Blood Pressure 135/91 H Pulse Oximetry 100 100 Oxygen Delivery Method Oxygen Flow Rate Fraction of Inspired Oxygen 05/11/25 05:14 05/11/25 05:15 05/11/25 05:30 Temperature Pulse Rate 97 H 95 H 96 H Respiratory Rate 18 23 22 Blood Pressure Pulse Oximetry 99 100 100 Oxygen Delivery Method Aerosol Mask Oxygen Flow Rate 5 Fraction of Inspired Oxygen 28 05/11/25 05:45 05/11/25 06:00 05/11/25 06:00 Temperature Pulse Rate 88 96 H Respiratory Rate 20 20 Blood Pressure 122/82 Pulse Oximetry 100 100 Oxygen Delivery Method Oxygen Flow Rate Fraction of Inspired Oxygen 05/11/25 06:15 05/11/25 06:30 Temperature Pulse Rate 87 94 H Respiratory Rate 20 21 Blood Pressure Pulse Oximetry 100 100 Oxygen Delivery Method Oxygen Flow Rate Fraction of Inspired Oxygen Fraction of Inspired Oxygen 28 SaO2/FiO2 Ratio 353 Oxygen Delivery Method Aerosol Mask Oxygen Flow Rate 5 Const General: comfortable Resp Effort & Inspection: normal respiratory effort Cardio Rate: regular rate Rhythm: regular rhythm GI Palpation: soft (Abd soft, non-distend, midline wound CDI) Other: Difficult exam due to MSE Objective Labs 05/10/25 10:00 05/11/25 05:15 Labs: Laboratory Results - last 24 hr 05/10/25 05/10/25 05/10/25 09:56 10:00 14:17 WBC 18.8 H RBC 3.92 L Hgb 10.0 L Hct 30.7 L MCV 78.5 L MCH 25.5 L MCHC 32.5 RDW 17.9 H Plt Count 353 Neut % (Auto) 91.7 H Lymph % (Auto) 3.3 L [place] % (Auto) 4.8 Eos % (Auto) 0.0 L Baso % (Auto) 0.2 Neut # (Auto) 30357 H Lymph # (Auto) 600 L [place] # (Auto) 900 Eos # (Auto) 0 Baso # (Auto) 0 VBG pH 7.25 L VBG pCO2 46.0 VBG pO2 37 VBG HCO3 20 L VBG Total CO2 20 L VBG O2 Saturation 60 L VBG Base Excess -6.8 L FiO2 % 28.0 % Sodium 139 Potassium 3.5 Chloride 110 H Carbon Dioxide 19 L BUN 19 Creatinine 0.54 L Estimated GFR > 60 BUN/Creatinine Ratio 35.2 H Glucose 84 Lactate 1.2 Calcium 8.0 L Total Bilirubin 0.4 AST 21 ALT 9 Alkaline Phosphatase 79 Total Protein 6.6 Albumin 3.1 L Globulin 3.5 Albumin/Globulin Ratio 0.9 L Vancomycin Peak Vancomycin Trough 15.4 05/10/25 05/11/25 17:10 05:15 WBC RBC Hgb Hct MCV MCH MCHC RDW Plt Count Neut % (Auto) Lymph % (Auto) [place] % (Auto) Eos % (Auto) Baso % (Auto) Neut # (Auto) Lymph # (Auto) [place] # (Auto) Eos # (Auto) Baso # (Auto) VBG pH VBG pCO2 VBG pO2 VBG HCO3 VBG Total CO2 VBG O2 Saturation VBG Base Excess FiO2 % Sodium 138 Potassium 3.1 L Chloride 111 H Carbon Dioxide 19 L BUN 17 Creatinine 0.46 L Estimated GFR > 60 BUN/Creatinine Ratio 37.0 H Glucose 73 Lactate Calcium 7.9 L Total Bilirubin AST ALT Alkaline Phosphatase Total Protein Albumin Globulin Albumin/Globulin Ratio Vancomycin Peak 39.7 Vancomycin Trough [facility] Medical History Excessive cerumen in both ear canals Chronic anticoagulation Iron deficiency anemia History of pulmonary embolism Status post radiation therapy Chronic anticoagulation Tracheostomy in place Sacral decubitus ulcer, stage III Protein calorie malnutrition Hyponatremia Dysphagia Recurrent aspiration pneumonia Depression, major, recurrent Jejunostomy tube present Influenza A Anemia Pneumonia 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 Father No problems noted. Social History marital status: unmarried,single details: Lives independantly with part-time caregivers household members: none lives independently: Yes occupational status: disabled Smoking Status: Never smoker alcohol intake: never substance use type: marijuana Assessment & Plan Assessment and plan (1) PEG tube malfunction: Status: Acute Plan POD#2 J-tube, repair PEG malfunction Tolerating TF at 20cc/hr Not tachycardic this morning Increase TF rate to 20 Time-Based Coding :: [TOTAL MINUTES] spent with patient and on the chart (including review of chart, obtaining history, exam, reviewing outside data, placing orders, documenting exam and treatment plan, and counseling patient) on [DATE]. [employer]EE [employer] Document charge(s): Yes Charge Codes Subsequent inpatient/observation care: [id number]
[2025-05-11] MEDS: SODIUM CHLORIDE 0.9% 1,000 ML 100 ML IV ×2 (08:29→17:41)
[2025-05-11] MEDS: CEFEPIME 2 GM in SODIUM CHLORIDE 0.9% 100 ML IV ×2 (08:30→20:14)
[2025-05-11] MEDS: ALBUTEROL/IPRATROPIUM 3 ML AMPUL INH ×2 (08:34→18:58)
[2025-05-11] MEDS: NEOMYCIN/POLYMYXIN/BACITRA UD OINT 1 EACH TOP ×2 (09:13→20:14)
[2025-05-11] MEDS: POTASSIUM CHLORIDE 20 MEQ/15 ML UDC 40 MEQ TUBE (09:49)
[2025-05-11] MEDS: SODIUM CHLORIDE 0.9% FLUSH 10 ML IV (09:49)
--- NOTE | 2025-05-11 11:25 | P.PN_ITS ---
Subjective Subjective Date Patient Seen: 05/11/25 Interval history: Chief complaint: Sepsis secondary to a gastric perforation and leak into peritoneum of gastric contents around gastrostomy tube History of present illness: 05/09: Patient is seen at the request of Dr. Naqvi of surgery. Apparently the patient arrived last night with a question of PEG tube dysfunction. A PEG tube was replaced in the ED but was not functioning as expected after placement. The patient was admitted by surgery to the [facility] and this morning taken to the OR for investigation. Prior to this, I was alerted of the patient's clinical status and I did initiate lab tests, blood cultures, IV fluids, and IV cefepime for possible sepsis. [place] [address] with a normal lactic acid. In the OR, the PEG to appeared to be in a false passage. The gastrostomy channel was closed and a J-tube was placed. The peritoneum was washed out. It did not appear grossly that tube feeds were in the peritoneum and the patient was subsequently brought to the ICU where he was on norepinephrine through a peripheral IV and appeared to be very dry with no urine output after 2 L of fluids in the OR. The patient has a noncuffed tracheostomy in place, and severe skin injury to the sacrum including 1 area with possible induration and a wound which is about 2-3 cm in diameter. See media photos. General surgery was alerted to the condition of the back at this time. Micro was reviewed this patient has had MRSA and Pseudomonas in sputum in the past. He was at high risk for MDR infections. He was awake, and moaning, but unable to follow commands or track. 05/10: Patient is minimally responsive white count 41878 92% neutrophils VBG 7.25 pCO2 46 PO2 37 sodium 139 potassium 3.5 chloride 110 CO2 19 BUN 19 creatinine 0.54 Chest x-ray: There is a tracheostomy tube seen in place. Lungs and pleura: Significant volume loss is seen on the left side. There is left-sided interstitial prominence. There is blunting of the left costophrenic angle. 05/11: Patient is receiving chest physiotherapy there is improvement in the lung sounds on the left patient is more animated and regards with eyes Review of systems: Incapable due to cognitive limitations Physical examination: cachectic and chronically ill in appearance (premorbid). Minimally responsive He was a tracheostomy in place. Very weak respiratory effort gross rhonchi on left Heart sounds distant His abdomen is flat, and non tender to palpation. A J-tube is in place. Extremities are atrophied and there was no edema. large area of skin pressure injury over the sacrum and lower back as well as a wound in the right paraspinal area above the pelvis. See media photos for this. Assessment and plan: Peg tube in false lumen, removed, Closure of gastrostomy track and placement of J-tube, active. * Appreciate surgery expertise * Tube feeding at 10 mL an hour per surgery Septic shock with source unclear, differential of lung with history of MRSA and Pseudomonas versus peritonitis verses back infected wounds. Active. * Cultures pending * Continue cefepime vancomycin Severe soft tissue injury of sacrum with area of induration and a wound of 2 cm in diameter, active. * Wound care team Chronic uncuffed tracheostomy, active. * Trach management Severe volume depletion, active. * Continue intravenous fluids Pseudobulbar palsy, and spastic left hemiparesis with long-term tracheostomy and history of recurrent aspiration pneumonia. * Suspect patient has reaspirated Code status: * FULL CODE * Mother is proxy decision maker. * Prognosis is guarded. * Discussed with PCP, Dr. Marshall. Disposition: * Attending is Dr. Naqvi surgery * ICU status * Disposition depending on outcome Time-Based Coding :: 45 min spent with patient and on the chart (including review of chart, obtaining history, exam, reviewing outside data, placing orders, documenting exam and treatment plan, and counseling patient) Exam Vital Signs (past 8 hours): - 05/11/25 03:30 05/11/25 03:45 05/11/25 04:00 Temperature Pulse Rate 100 H 97 H Respiratory Rate 22 21 Blood Pressure Pulse Oximetry 100 100 Oxygen Delivery Method Aerosol Mask Oxygen Flow Rate Fraction of Inspired Oxygen 05/11/25 04:00 05/11/25 04:00 05/11/25 04:15 Temperature Pulse Rate 95 H 93 H Respiratory Rate 20 19 Blood Pressure 125/85 Pulse Oximetry 100 100 Oxygen Delivery Method Oxygen Flow Rate Fraction of Inspired Oxygen 05/11/25 04:30 05/11/25 04:45 05/11/25 05:00 Temperature Pulse Rate 86 87 Respiratory Rate 20 20 Blood Pressure 135/91 H Pulse Oximetry 100 100 Oxygen Delivery Method Oxygen Flow Rate Fraction of Inspired Oxygen 05/11/25 05:00 08/23/25 05:14 05/11/25 05:15 Temperature Pulse Rate 97 H 97 H 95 H Respiratory Rate 21 18 23 Blood Pressure Pulse Oximetry 100 99 100 Oxygen Delivery Method Aerosol Mask Oxygen Flow Rate 5 Fraction of Inspired Oxygen 28 05/11/25 05:30 05/11/25 05:45 05/11/25 06:00 Temperature Pulse Rate 96 H 88 96 H Respiratory Rate 22 20 20 Blood Pressure Pulse Oximetry 100 100 100 Oxygen Delivery Method Oxygen Flow Rate Fraction of Inspired Oxygen 05/11/25 06:00 05/11/25 06:15 05/11/25 06:30 Temperature Pulse Rate 87 94 H Respiratory Rate 20 21 Blood Pressure 122/82 Pulse Oximetry 100 100 Oxygen Delivery Method Oxygen Flow Rate Fraction of Inspired Oxygen 05/11/25 06:45 05/11/25 07:00 05/11/25 07:00 Temperature Pulse Rate 93 H 99 H Respiratory Rate 20 22 Blood Pressure 127/89 Pulse Oximetry 100 100 Oxygen Delivery Method Oxygen Flow Rate Fraction of Inspired Oxygen 05/11/25 07:15 05/11/25 07:30 05/11/25 07:45 Temperature Pulse Rate 97 H 96 H 96 H Respiratory Rate 21 22 22 Blood Pressure Pulse Oximetry 100 100 100 Oxygen Delivery Method Oxygen Flow Rate Fraction of Inspired Oxygen 05/11/25 08:00 05/11/25 08:00 05/11/25 08:00 Temperature 97.8 F Pulse Rate 96 H Respiratory Rate 22 Blood Pressure 130/89 Pulse Oximetry 100 Oxygen Delivery Method Aerosol Mask Oxygen Flow Rate Fraction of Inspired Oxygen 05/11/25 08:15 05/11/25 08:30 05/11/25 08:34 Temperature Pulse Rate 101 H 95 H 96 H Respiratory Rate 23 22 22 Blood Pressure Pulse Oximetry 100 99 99 Oxygen Delivery Method Oxygen Flow Rate Fraction of Inspired Oxygen 05/11/25 08:45 05/11/25 09:00 05/11/25 09:00 Temperature Pulse Rate 97 H 100 H Respiratory Rate 23 24 Blood Pressure 132/93 H Pulse Oximetry 100 97 Oxygen Delivery Method Oxygen Flow Rate Fraction of Inspired Oxygen 05/11/25 09:15 05/11/25 09:30 05/11/25 09:45 Temperature Pulse Rate 99 H 97 H 98 H Respiratory Rate 22 22 23 Blood Pressure Pulse Oximetry 100 99 99 Oxygen Delivery Method Oxygen Flow Rate Fraction of Inspired Oxygen 05/11/25 10:00 05/11/25 10:00 05/11/25 10:15 Temperature Pulse Rate 99 H 98 H Respiratory Rate 21 21 Blood Pressure 124/87 Pulse Oximetry 99 100 Oxygen Delivery Method Oxygen Flow Rate Fraction of Inspired Oxygen 05/11/25 10:30 05/11/25 10:45 05/11/25 11:00 Temperature Pulse Rate 97 H 98 H Respiratory Rate 22 22 Blood Pressure 131/94 H Pulse Oximetry 100 100 Oxygen Delivery Method Oxygen Flow Rate Fraction of Inspired Oxygen 05/11/25 11:00 Temperature Pulse Rate 99 H Respiratory Rate 24 Blood Pressure Pulse Oximetry 100 Oxygen Delivery Method Oxygen Flow Rate Fraction of Inspired Oxygen Fraction of Inspired Oxygen 28 SaO2/FiO2 Ratio 353 Oxygen Delivery Method Aerosol Mask Oxygen Flow Rate 5 Objective Labs 05/10/25 10:00 05/11/25 05:15 Labs: Laboratory Results - last 24 hr 05/10/25 05/10/25 05/11/25 14:17 17:10 05:15 Sodium 138 Potassium 3.1 L Chloride 111 H Carbon Dioxide 19 L BUN 17 Creatinine 0.46 L Estimated GFR > 60 BUN/Creatinine Ratio 37.0 H Glucose 73 Calcium 7.9 L Vancomycin Peak 39.7 Vancomycin Trough 15.4 PFSH Medical History Excessive cerumen in both ear canals Chronic anticoagulation Iron deficiency anemia History of pulmonary embolism Status post radiation therapy Chronic anticoagulation Tracheostomy in place Sacral decubitus ulcer, stage III Protein calorie malnutrition Hyponatremia Dysphagia Recurrent aspiration pneumonia Depression, major, recurrent Jejunostomy tube present Influenza A Anemia Pneumonia 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 Father No problems noted. Social History marital status: unmarried,single details: Lives independantly with part-time caregivers household members: none lives independently: Yes occupational status: disabled Smoking Status: Never smoker alcohol intake: never substance use type: marijuana Assessment & Plan Time-Based Coding :: [TOTAL MINUTES] spent with patient and on the chart (including review of chart, obtaining history, exam, reviewing outside data, placing orders, documenting exam and treatment plan, and counseling patient) on [DATE].
--- NOTE | 2025-05-11 11:50 | P.PN_ITS ---
Subjective Subjective Date Patient Seen: 05/12/25 Interval history: Chief complaint: Sepsis secondary to a gastric perforation and leak into peritoneum of gastric contents around gastrostomy tube History of present illness: 05/09: Patient is seen at the request of Dr. Naqvi of surgery. Apparently the patient arrived last night with a question of PEG tube dysfunction. A PEG tube was replaced in the ED but was not functioning as expected after placement. The patient was admitted by surgery to the [facility] and this morning taken to the OR for investigation. Prior to this, I was alerted of the patient's clinical status and I did initiate lab tests, blood cultures, IV fluids, and IV cefepime for possible sepsis. [place] [address] with a normal lactic acid. In the OR, the PEG to appeared to be in a false passage. The gastrostomy channel was closed and a J-tube was placed. The peritoneum was washed out. It did not appear grossly that tube feeds were in the peritoneum and the patient was subsequently brought to the ICU where he was on norepinephrine through a peripheral IV and appeared to be very dry with no urine output after 2 L of fluids in the OR. The patient has a noncuffed tracheostomy in place, and severe skin injury to the sacrum including 1 area with possible induration and a wound which is about 2-3 cm in diameter. See media photos. General surgery was alerted to the condition of the back at this time. Micro was reviewed this patient has had MRSA and Pseudomonas in sputum in the past. He was at high risk for MDR infections. He was awake, and moaning, but unable to follow commands or track. 05/10: Patient is minimally responsive white count 40292 92% neutrophils VBG 7.25 pCO2 46 PO2 37 sodium 139 potassium 3.5 chloride 110 CO2 19 BUN 19 creatinine 0.54 Chest x-ray: There is a tracheostomy tube seen in place. Lungs and pleura: Significant volume loss is seen on the left side. There is left-sided interstitial prominence. There is blunting of the left costophrenic angle. 05/11: Patient is receiving chest physiotherapy there is improvement in the lung sounds on the left patient is more animated and regards with eyes 05/12: Secretions clearing with chest physiotherapy patient appears alert is nonverbal regards with eyes only Review of systems: Incapable due to cognitive limitations Physical examination: cachectic and chronically ill in appearance . Regards with eyes He was a tracheostomy in place. Very weak respiratory effort gross rhonchi on left Heart sounds distant His abdomen is flat, and non tender to palpation. A J-tube is in place. Extremities are atrophied and there was no edema. large area of skin pressure injury over the sacrum and lower back as well as a wound in the right paraspinal area above the pelvis. See media photos for this. Assessment and plan: Peg tube in false lumen, removed, Closure of gastrostomy track and placement of J-tube, active. * Appreciate surgery expertise * Tube feeding at 10 mL an hour per surgery Septic shock with source unclear, differential of lung with history of MRSA and Pseudomonas versus peritonitis verses back infected wounds. Active. * Cultures pending * Continue cefepime vancomycin Severe soft tissue injury of sacrum with area of induration and a wound of 2 cm in diameter, active. * Wound care team * Diflucan 4 days 200 mg Chronic uncuffed tracheostomy, active. * Trach management Severe volume depletion, active. * Continue intravenous fluids new Pseudobulbar palsy, and spastic left hemiparesis with long-term tracheostomy and history of recurrent aspiration pneumonia. * Suspect patient has reaspirated Code status: * FULL CODE * Mother is proxy decision maker. * Prognosis is guarded. * Discussed with PCP, Dr. Marshall. Disposition: * Attending is Dr. Naqvi surgery * ICU status * Disposition depending on outcome Time-Based Coding :: 45 min spent with patient and on the chart (including review of chart, obtaining history, exam, reviewing outside data, placing orders, documenting exam and treatment plan, and counseling patient) Exam Vital Signs (past 8 hours): - 05/11/25 04:00 05/11/25 04:00 05/11/25 04:00 Temperature Pulse Rate 95 H Respiratory Rate 20 Blood Pressure 125/85 Pulse Oximetry 100 Oxygen Delivery Method Aerosol Mask Oxygen Flow Rate Fraction of Inspired Oxygen 05/11/25 04:15 05/11/25 04:30 05/11/25 04:45 Temperature Pulse Rate 93 H 86 87 Respiratory Rate 19 20 20 Blood Pressure Pulse Oximetry 100 100 100 Oxygen Delivery Method Oxygen Flow Rate Fraction of Inspired Oxygen 05/11/25 05:00 05/11/25 05:00 05/11/25 05:14 Temperature Pulse Rate 97 H 97 H Respiratory Rate 21 18 Blood Pressure 135/91 H Pulse Oximetry 100 99 Oxygen Delivery Method Aerosol Mask Oxygen Flow Rate 5 Fraction of Inspired Oxygen 05/11/25 05:15 05/11/25 05:30 05/11/25 05:45 Temperature Pulse Rate 95 H 96 H 88 Respiratory Rate 23 22 20 Blood Pressure Pulse Oximetry 100 100 100 Oxygen Delivery Method Oxygen Flow Rate Fraction of Inspired Oxygen 05/11/25 06:00 05/11/25 06:00 05/11/25 06:15 Temperature Pulse Rate 96 H 87 Respiratory Rate 20 20 Blood Pressure 122/82 Pulse Oximetry 100 100 Oxygen Delivery Method Oxygen Flow Rate Fraction of Inspired Oxygen 05/11/25 06:30 05/11/25 06:45 05/11/25 07:00 Temperature Pulse Rate 94 H 93 H 99 H Respiratory Rate 21 20 22 Blood Pressure Pulse Oximetry 100 100 100 Oxygen Delivery Method Oxygen Flow Rate Fraction of Inspired Oxygen 05/11/25 07:00 05/11/25 07:15 05/11/25 07:30 Temperature Pulse Rate 97 H 96 H Respiratory Rate 21 22 Blood Pressure 127/89 Pulse Oximetry 100 100 Oxygen Delivery Method Oxygen Flow Rate Fraction of Inspired Oxygen 05/11/25 07:45 05/11/25 08:00 05/11/25 08:00 Temperature Pulse Rate 96 H Respiratory Rate 22 Blood Pressure 130/89 Pulse Oximetry 100 Oxygen Delivery Method Aerosol Mask Oxygen Flow Rate Fraction of Inspired Oxygen 05/11/25 08:00 05/11/25 08:15 05/11/25 08:30 Temperature 97.8 F Pulse Rate 96 H 101 H 95 H Respiratory Rate 22 23 22 Blood Pressure Pulse Oximetry 100 100 99 Oxygen Delivery Method Oxygen Flow Rate Fraction of Inspired Oxygen 05/11/25 08:34 05/11/25 08:45 05/11/25 09:00 Temperature Pulse Rate 96 H 97 H 100 H Respiratory Rate 22 23 24 Blood Pressure Pulse Oximetry 99 100 97 Oxygen Delivery Method Oxygen Flow Rate Fraction of Inspired Oxygen 05/11/25 09:00 05/11/25 09:15 05/11/25 09:30 Temperature Pulse Rate 99 H 97 H Respiratory Rate 22 22 Blood Pressure 132/93 H Pulse Oximetry 100 99 Oxygen Delivery Method Oxygen Flow Rate Fraction of Inspired Oxygen 05/11/25 09:45 05/11/25 10:00 05/11/25 10:00 Temperature Pulse Rate 98 H 99 H Respiratory Rate 23 21 Blood Pressure 124/87 Pulse Oximetry 99 99 Oxygen Delivery Method Oxygen Flow Rate Fraction of Inspired Oxygen 05/11/25 10:15 05/11/25 10:30 05/11/25 10:45 Temperature Pulse Rate 98 H 97 H 98 H Respiratory Rate 21 22 22 Blood Pressure Pulse Oximetry 100 100 100 Oxygen Delivery Method Oxygen Flow Rate Fraction of Inspired Oxygen 05/11/25 11:00 05/11/25 11:00 Temperature Pulse Rate 99 H Respiratory Rate 24 Blood Pressure 131/94 H Pulse Oximetry 100 Oxygen Delivery Method Oxygen Flow Rate Fraction of Inspired Oxygen Fraction of Inspired Oxygen 28 SaO2/FiO2 Ratio 353 Oxygen Delivery Method Aerosol Mask Oxygen Flow Rate 5 Objective Labs 05/12/25 05:30 05/12/25 05:30 Labs: Laboratory Results - last 24 hr 05/10/25 05/10/25 05/11/25 14:17 17:10 05:15 Sodium 138 Potassium 3.1 L Chloride 111 H Carbon Dioxide 19 L BUN 17 Creatinine 0.46 L Estimated GFR > 60 BUN/Creatinine Ratio 37.0 H Glucose 73 Calcium 7.9 L Vancomycin Peak 39.7 Vancomycin Trough 15.4 PFSH Medical History Excessive cerumen in both ear canals Chronic anticoagulation Iron deficiency anemia History of pulmonary embolism Status post radiation therapy Chronic anticoagulation Tracheostomy in place Sacral decubitus ulcer, stage III Protein calorie malnutrition Hyponatremia Dysphagia Recurrent aspiration pneumonia Depression, major, recurrent Jejunostomy tube present Influenza A Anemia Pneumonia 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 Father No problems noted. Social History marital status: unmarried,single details: Lives independantly with part-time caregivers household members: none lives independently: Yes occupational status: disabled Smoking Status: Never smoker alcohol intake: never substance use type: marijuana Assessment & Plan Time-Based Coding :: [TOTAL MINUTES] spent with patient and on the chart (including review of chart, obtaining history, exam, reviewing outside data, placing orders, documenting exam and treatment plan, and counseling patient) on [DATE].
[2025-05-11] MEDS: ACETAMINOPHEN IV 1,000 MG/100 ML VIAL 400 MG IV ×2 (11:57→17:41)
[2025-05-11] MEDS: VANCOMYCIN 1,000 MG/200 ML PIGGYBACK 200 MG IV (18:14)
[2025-05-12] VITALS (107 sets, daily range): BP systolic 74–120; BP diastolic 50–92; PULSE 109–135; RESP 0–40; TEMP 36.4; O2SAT 49–100
[2025-05-12] MEDS: ACETAMINOPHEN IV 1,000 MG/100 ML VIAL 400 MG IV (02:23)
[2025-05-12] MEDS: SODIUM CHLORIDE 0.9% 1,000 ML 100 ML IV (05:18)
[2025-05-12 06:14] LABS: Add Manual Diff / Slide Review NO; Hematocrit 26.1 % (41-53); Hemoglobin 8.6 g/dL (13.5-17.5); Lymphocytes Absolute Auto 800 /uL (1100-4500); Mean Corpuscular HGB Conc 33.0 % (30-36); Mean Corpuscular Hemoglobin 25.9 PG (26-34); Mean Corpuscular Volume 78.5 fL (80-100); Platelet Count 278 X10^3/uL (150-400)
[2025-05-12] MEDS: VANCOMYCIN 1,000 MG/200 ML PIGGYBACK 200 MG IV ×2 (06:21→18:01)
[2025-05-12 06:27] LABS: Blood Urea Nitrogen 14 mg/dL (9-20); Calcium 7.9 mg/dL (8.4-10.2); Carbon Dioxide 17 mmol/L (22-32); Chloride 111 mmol/L (98-107); Estimated Glomerular Filt Rate > 60 mL/min (>60); Glucose 71 mg/dL (70-99); HEMOLYSIS < 15 (0-50); Sodium 138 mmol/L (137-145)
[2025-05-12 06:42] LABS: Potassium 2.6 mmol/L (3.4-5.1)
[2025-05-12] MEDS: POTASSIUM CHLORIDE IN WATER 10 MEQ/100 ML PIGGYBACK 100 MEQ IV ×6 (07:39→12:48)
--- NOTE | 2025-05-12 08:09 | PM.PN.IH.1 ---
Subjective Subjective Date Patient Seen: 05/12/25 Time Patient Seen: 08:09 Interval history: POD#3 J-tube Appears comfortable Exam Vital Signs (past 8 hours): - 05/12/25 00:14 05/12/25 00:15 05/12/25 00:30 Pulse Rate 114 H 112 H Respiratory Rate 28 H 26 H Blood Pressure Pulse Oximetry 95 94 95 Oxygen Delivery Method Oxygen Flow Rate Fraction of Inspired Oxygen 05/12/25 00:45 05/12/25 01:00 05/12/25 01:00 Pulse Rate 111 H 110 H Respiratory Rate 26 H 24 Blood Pressure 110/85 Pulse Oximetry 95 96 Oxygen Delivery Method Oxygen Flow Rate Fraction of Inspired Oxygen 05/12/25 01:15 05/12/25 01:30 05/12/25 01:45 Pulse Rate 111 H 109 H 109 H Respiratory Rate 25 H 24 24 Blood Pressure Pulse Oximetry 96 96 97 Oxygen Delivery Method Oxygen Flow Rate Fraction of Inspired Oxygen 05/12/25 02:00 05/12/25 02:00 05/12/25 02:15 Pulse Rate 110 H 110 H Respiratory Rate 25 H 26 H Blood Pressure 112/86 Pulse Oximetry 96 97 Oxygen Delivery Method Oxygen Flow Rate Fraction of Inspired Oxygen 05/12/25 02:30 05/12/25 02:45 05/12/25 03:00 Pulse Rate 110 H 109 H Respiratory Rate 25 H 25 H Blood Pressure 119/89 Pulse Oximetry 97 96 Oxygen Delivery Method Oxygen Flow Rate Fraction of Inspired Oxygen 05/12/25 03:00 05/12/25 03:15 05/12/25 03:30 Pulse Rate 110 H 109 H 110 H Respiratory Rate 26 H 24 25 H Blood Pressure Pulse Oximetry 96 96 97 Oxygen Delivery Method Oxygen Flow Rate Fraction of Inspired Oxygen 05/12/25 03:45 05/12/25 04:00 05/12/25 04:00 Pulse Rate 110 H 117 H Respiratory Rate 25 H 27 H Blood Pressure Pulse Oximetry 96 96 Oxygen Delivery Method Aerosol Mask Oxygen Flow Rate Fraction of Inspired Oxygen 05/12/25 04:02 05/12/25 04:02 05/12/25 04:15 Pulse Rate 114 H 113 H Respiratory Rate 27 H 26 H Blood Pressure 120/91 H Pulse Oximetry 95 97 Oxygen Delivery Method Oxygen Flow Rate Fraction of Inspired Oxygen 05/12/25 04:30 05/12/25 04:45 05/12/25 04:55 Pulse Rate 119 H 114 H Respiratory Rate 24 23 20 Blood Pressure Pulse Oximetry 98 96 96 Oxygen Delivery Method Trach Collar Oxygen Flow Rate 5 Fraction of Inspired Oxygen 0.28 05/12/25 05:00 05/12/25 05:00 05/12/25 05:15 Pulse Rate 111 H 110 H Respiratory Rate 22 22 Blood Pressure 109/83 Pulse Oximetry 96 96 Oxygen Delivery Method Oxygen Flow Rate Fraction of Inspired Oxygen 05/12/25 05:30 05/12/25 05:45 05/12/25 06:00 Pulse Rate 111 H 113 H Respiratory Rate 22 23 Blood Pressure 113/85 Pulse Oximetry 97 97 Oxygen Delivery Method Oxygen Flow Rate Fraction of Inspired Oxygen 05/12/25 06:00 05/12/25 06:15 Pulse Rate 113 H 112 H Respiratory Rate 23 23 Blood Pressure Pulse Oximetry 97 97 Oxygen Delivery Method Oxygen Flow Rate Fraction of Inspired Oxygen Fraction of Inspired Oxygen 0.28 SaO2/FiO2 Ratio 99653 Oxygen Delivery Method Trach Collar Oxygen Flow Rate 5 GI Other: Abd soft, no grimace with exam, midline wound CDI Objective Labs 05/12/25 05:30 05/12/25 05:30 Labs: Laboratory Results - last 24 hr 05/12/25 05/12/25 00:09 05:30 WBC 10.4 RBC 3.33 L Hgb 8.6 L Hct 26.1 L MCV 78.5 L MCH 25.9 L MCHC 33.0 RDW 17.4 H Plt Count 278 Neut % (Auto) 86.8 H Lymph % (Auto) 7.8 L F[place]ardo % (Auto) 3.9 Eos % (Auto) 0.6 L Baso % (Auto) 0.9 Neut # (Auto) 9000 H Lymph # (Auto) 800 L [place] # (Auto) 400 Eos # (Auto) 100 Baso # (Auto) 100 Sodium 138 Potassium 2.6 L* Chloride 111 H Carbon Dioxide 17 L BUN 14 Creatinine 0.41 L Estimated GFR > 60 BUN/Creatinine Ratio 34.1 H Glucose 71 POC Whole Bld Glucose 70 Calcium 7.9 L PFSH Medical History Excessive cerumen in both ear canals Chronic anticoagulation Iron deficiency anemia History of pulmonary embolism Status post radiation therapy Chronic anticoagulation Tracheostomy in place Sacral decubitus ulcer, stage III Protein calorie malnutrition Hyponatremia Dysphagia Recurrent aspiration pneumonia Depression, major, recurrent Jejunostomy tube present Influenza A Anemia Pneumonia 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 Father No problems noted. Social History marital status: unmarried,single details: Lives independantly with part-time caregivers household members: none lives independently: Yes occupational status: disabled Smoking Status: Never smoker alcohol intake: never substance use type: marijuana Assessment & Plan Assessment and plan (1) PEG tube malfunction: Status: Acute (2) Encounter for feeding tube placement: Status: Acute Plan POD#3 J-tube Tube feed rate ordered to increase to 20cc/hr yesterday. Tube feed rate still at 10cc/hr. Discussed with RN who will increase to 20cc/hr. Tolerating TF at 10cc/hr Increase rate to goal as tolerated No BM yet, consider miralax/suppos unless BM Time-Based Coding :: [TOTAL MINUTES] spent with patient and on the chart (including review of chart, obtaining history, exam, reviewing outside data, placing orders, documenting exam and treatment plan, and counseling patient) on [DATE]. [employer] Supervisor Document charge(s): Yes Charge Codes Subsequent inpatient/observation care: [id number]
[2025-05-12] MEDS: ALBUTEROL/IPRATROPIUM 3 ML AMPUL INH ×2 (08:34→18:37)
[2025-05-12] MEDS: SODIUM CHLORIDE 0.9% FLUSH 10 ML IV ×2 (08:44→20:11)
[2025-05-12] MEDS: CEFEPIME 2 GM in SODIUM CHLORIDE 0.9% 100 ML IV ×2 (08:49→20:09)
[2025-05-12] MEDS: NEOMYCIN/POLYMYXIN/BACITRA UD OINT 1 EACH TOP ×2 (08:53→20:54)
--- NOTE | 2025-05-12 12:28 | PC.NURSE ---
05/13/25 1230 - Patient required suctioning one time around approximately 0800, completed by RT after PCT. Continuing strict Q2 turning and repositioning with new barrier cream applied as needed. Patient noted to be tachycardic, sinus rhythm, HR 120-125, BP normal. Pain controlled, unlabored breathing. Dr Russell made aware, no new orders at this time. 05/12/25 Patient requiring suction frequently throughout day, approximately seven times. Thick, white and yellow sputum suctioned out. Turned every two hours, positioning wedge and pillows utilized. Barrier cream applied, brief changed, new linens.
[2025-05-12] MEDS: APIXABAN 5 MG TABLET TUBE ×2 (13:00→20:09)
[2025-05-12] MEDS: FLUCONAZOLE 100 MG TABLET 200 MG PO (13:59)
[2025-05-12] MEDS: SODIUM CHLORIDE 0.9% 500 ML 1000 ML IV (14:10)
[2025-05-12 15:20] LABS: HEMOLYSIS 22 (0-50); Potassium 3.5 mmol/L (3.4-5.1)
[2025-05-12] MEDS: POTASSIUM CHLORIDE 20 MEQ/15 ML UDC 40 MEQ TUBE (16:40)
[2025-05-12] MEDS: METOPROLOL IR 25 MG TABLET PO (18:01)
[2025-05-12] MEDS: SERTRALINE 50 MG TABLET 200 MG TUBE (20:09)
--- NOTE | 2025-05-12 22:20 | PC.NURSE ---
Addendum entered by Mary Ann Yoo RN 05/13/25 00:00: While receiving bolus fluids pt began dropping O2 sats as low at 44%, requiring extensive suctioning of Trach with secretions copious and thick, le and an increase of FiO2 to 100% to recover, RT at bedside, pt currently sats 95% with FiO2 40%. Pt tolerated suctioning well. No further needs at this time, will time suctioning Q2H at this time. Addendum entered by Mary Ann Yoo RN 05/12/25 23:08: [id number] Taylor for pt BP 76/51 MAP 59 HR 119, order received to bolus 500cc Original Note: shift commander note: Pt receiving CPT by RT at 1900, day shift nurse gave pt dose of 25mg Metoprolol at 1800 for HR 120-125, HR currently 109-115 BP decreased at 81/63 MAP 68. All 2100 medications given except additional dose of 25mg Metoprolol held for decreased BP. Pt medicated with IVP Dilaudid for FLACC pain scale of 7/10. Q2H turn with wedge in place. Suctioning completed as needed. No further pt needs at this time, care on going.
[2025-05-12] MEDS: SODIUM CHLORIDE 0.9% 1,000 ML 1000 ML IV (23:18)
[2025-05-13] VITALS (112 sets, daily range): BP systolic 76–102; BP diastolic 53–77; PULSE 91–127; RESP 12–33; TEMP 36–36.8; O2SAT 64–100
[2025-05-13] MEDS: ACETAMINOPHEN IV 1,000 MG/100 ML VIAL 400 MG IV (01:25)
[2025-05-13 06:02] LABS: Blood Urea Nitrogen 14 mg/dL (9-20); Calcium 7.7 mg/dL (8.4-10.2); Carbon Dioxide 20 mmol/L (22-32); Chloride 112 mmol/L (98-107); Estimated Glomerular Filt Rate > 60 mL/min (>60); Glucose 87 mg/dL (70-99); HEMOLYSIS < 15 (0-50); Potassium 3.3 mmol/L (3.4-5.1); Sodium 136 mmol/L (137-145)
[2025-05-13] MEDS: VANCOMYCIN 1,000 MG/200 ML PIGGYBACK 200 MG IV ×2 (06:40→18:04)
--- NOTE | 2025-05-13 08:12 | P.PN_ITS ---
Subjective Subjective Date Patient Seen: 05/13/25 Time Patient Seen: 08:12 Interval history: POD#4 J-tube Patient appears comfortable. +BMs per nursing, tolerating TF at 20cc/hr Exam Vital Signs (past 8 hours): - 05/13/25 00:15 05/13/25 00:20 05/13/25 00:20 Pulse Rate 116 H 117 H Respiratory Rate 30 H 30 H Blood Pressure 94/71 Pulse Oximetry 96 97 Oxygen Delivery Method Oxygen Flow Rate Fraction of Inspired Oxygen 05/13/25 00:30 05/13/25 00:40 05/13/25 00:40 Pulse Rate 116 H 116 H Respiratory Rate 29 H 29 H Blood Pressure 92/68 Pulse Oximetry 96 96 Oxygen Delivery Method Oxygen Flow Rate Fraction of Inspired Oxygen 05/13/25 00:45 05/13/25 01:00 05/13/25 01:00 Pulse Rate 115 H 116 H Respiratory Rate 30 H 28 H Blood Pressure 87/60 L Pulse Oximetry 96 99 Oxygen Delivery Method Oxygen Flow Rate Fraction of Inspired Oxygen 05/13/25 01:15 05/13/25 01:30 05/13/25 01:30 Pulse Rate 114 H 115 H Respiratory Rate 27 H 27 H 25 H Blood Pressure Pulse Oximetry 99 99 93 Oxygen Delivery Method Trach Collar Oxygen Flow Rate 10 Fraction of Inspired Oxygen 0.40 05/13/25 01:45 05/13/25 02:00 05/13/25 02:01 Pulse Rate 114 H 125 H 127 H Respiratory Rate 27 H 26 H 31 H Blood Pressure Pulse Oximetry 99 68 L 90 L Oxygen Delivery Method Oxygen Flow Rate Fraction of Inspired Oxygen 05/13/25 02:01 05/13/25 02:15 05/13/25 02:30 Pulse Rate 114 H 111 H Respiratory Rate 27 H 25 H Blood Pressure 102/68 Pulse Oximetry 97 98 Oxygen Delivery Method Oxygen Flow Rate Fraction of Inspired Oxygen 05/13/25 02:45 05/13/25 03:00 05/13/25 03:03 Pulse Rate 110 H 110 H 109 H Respiratory Rate 24 25 H 24 Blood Pressure Pulse Oximetry 99 99 99 Oxygen Delivery Method Oxygen Flow Rate Fraction of Inspired Oxygen 05/13/25 03:03 05/13/25 03:06 05/13/25 03:06 Pulse Rate 111 H Respiratory Rate 25 H Blood Pressure 78/53 L 95/62 Pulse Oximetry 99 Oxygen Delivery Method Oxygen Flow Rate Fraction of Inspired Oxygen 05/13/25 03:15 05/13/25 03:30 05/13/25 03:31 Pulse Rate 107 H 110 H Respiratory Rate 24 27 H 25 H Blood Pressure Pulse Oximetry 99 97 96 Oxygen Delivery Method Trach Collar Oxygen Flow Rate 10 Fraction of Inspired Oxygen 0.40 05/13/25 03:45 05/13/25 04:00 05/13/25 04:00 Pulse Rate 106 H 107 H Respiratory Rate 25 H 15 Blood Pressure 82/58 L Pulse Oximetry 98 98 Oxygen Delivery Method Oxygen Flow Rate Fraction of Inspired Oxygen 05/13/25 04:15 05/13/25 04:30 05/13/25 04:45 Pulse Rate 107 H 104 H 104 H Respiratory Rate 23 23 23 Blood Pressure Pulse Oximetry 98 98 99 Oxygen Delivery Method Oxygen Flow Rate Fraction of Inspired Oxygen 05/13/25 05:00 05/13/25 05:00 05/13/25 05:15 Pulse Rate 106 H 104 H Respiratory Rate 19 18 Blood Pressure 89/61 L Pulse Oximetry 99 99 Oxygen Delivery Method Oxygen Flow Rate Fraction of Inspired Oxygen 05/13/25 05:30 05/13/25 05:30 05/13/25 05:45 Pulse Rate 106 H 105 H Respiratory Rate 12 19 Blood Pressure Pulse Oximetry 100 98 Oxygen Delivery Method Aerosol Mask Oxygen Flow Rate Fraction of Inspired Oxygen 05/13/25 06:00 05/13/25 06:00 Pulse Rate 109 H Respiratory Rate 28 H Blood Pressure 102/77 Pulse Oximetry 96 Oxygen Delivery Method Oxygen Flow Rate Fraction of Inspired Oxygen Fraction of Inspired Oxygen 0.40 SaO2/FiO2 Ratio 25198 Oxygen Delivery Method Aerosol Mask Oxygen Flow Rate 10 GI Other: ABD: soft, no grimace with exam, midline wound CDI Objective Labs 05/12/25 05:30 05/13/25 05:40 Labs: Laboratory Results - last 24 hr 05/12/25 05/12/25 05/12/25 13:03 15:07 18:43 Sodium Potassium 3.5 Chloride Carbon Dioxide BUN Creatinine Estimated GFR BUN/Creatinine Ratio Glucose POC Whole Bld Glucose 80 96 Calcium Vancomycin Trough 05/13/25 05/13/25 00:02 05:40 Sodium 136 L Potassium 3.3 L Chloride 112 H Carbon Dioxide 20 L BUN 14 Creatinine 0.37 L Estimated GFR > 60 BUN/Creatinine Ratio 37.8 H Glucose 87 POC Whole Bld Glucose 88 Calcium 7.7 L Vancomycin Trough 16.8 PFSH Medical History Excessive cerumen in both ear canals Chronic anticoagulation Iron deficiency anemia History of pulmonary embolism Status post radiation therapy Chronic anticoagulation Tracheostomy in place Sacral decubitus ulcer, stage III Protein calorie malnutrition Hyponatremia Dysphagia Recurrent aspiration pneumonia Depression, major, recurrent Jejunostomy tube present Influenza A Anemia Pneumonia 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 Father No problems noted. Social History marital status: unmarried,single details: Lives independantly with part-time caregivers household members: none lives independently: Yes occupational status: disabled Smoking Status: Never smoker alcohol intake: never substance use type: marijuana Assessment & Plan Assessment and plan (1) Encounter for feeding tube placement: Status: Acute (2) PEG tube malfunction: Status: Acute Plan POD#4 J-tube Tolerating TF at 20cc/hr; increase to 30 +BMs Time-Based Coding :: [TOTAL MINUTES] spent with patient and on the chart (including review of chart, obtaining history, exam, reviewing outside data, placing orders, documenting exam and treatment plan, and counseling patient) on [DATE]. PROFEE Supervisor Line Department Document charge(s): Yes Charge Codes Subsequent inpatient/observation care: [id number]
[2025-05-13] MEDS: APIXABAN 5 MG TABLET TUBE ×2 (08:30→20:15)
[2025-05-13] MEDS: FLUCONAZOLE 100 MG TABLET 200 MG PO (08:32)
[2025-05-13] MEDS: METOPROLOL IR 25 MG TABLET PO ×2 (08:32→15:17)
[2025-05-13] MEDS: BACLOFEN 10 MG TABLET 5 MG TUBE (08:32)
[2025-05-13] MEDS: CEFEPIME 2 GM in SODIUM CHLORIDE 0.9% 100 ML IV ×2 (08:32→20:15)
[2025-05-13] MEDS: NEOMYCIN/POLYMYXIN/BACITRA UD OINT 1 EACH TOP ×2 (08:33→20:16)
[2025-05-13] MEDS: SODIUM CHLORIDE 0.9% FLUSH 10 ML IV ×2 (08:33→20:16)
[2025-05-13] MEDS: ALBUTEROL/IPRATROPIUM 3 ML AMPUL INH ×2 (08:37→19:05)
[2025-05-13] MEDS: POTASSIUM CHLORIDE 20 MEQ/15 ML UDC 40 MEQ TUBE ×2 (10:10→15:16)
[2025-05-13] MEDS: SODIUM CHLORIDE 0.9% 1,000 ML 50 ML IV (12:03)
--- NOTE | 2025-05-13 13:11 | DIET.PN1 ---
Addendum entered by Flakita Hopkins 05/13/25 15:28: Nutrition focused physical exam showing severe muscle wasting temples and deltoid and moderate to severe buccal and orbital fat pad loss. Added nutrition diagnosis: Severe chronic Protein Calorie Malnutrition r/t altered GI tract motility and increased needs (protein) as evidenced by severe muscle wasting in temples and deltoid, severe buccal and orbital subcutaneous fat loss, <60% of estimated protein needs due to malabsorption and wound healing needs for >1 month Original Note: Dietary Progress Note Assessment: f/u Pt on 30 mL/hr. Copious stool output this morning per RN. Plan to start banatrol TID. Banatrol is necessary soluble fiber to prevent diarrhea and further skin break down and to prevent malabsorption. At previous admissions pt unable to tolerate Jevity 1.2 as well. Called [facility] and discussed TF transition outside hospital. See reccs below. Ht: 174.73 cm Wt: 77.111 kg BMI: 25.2 UBW: 160 lb Last BM: 05/13/25 (05/13/25 08:00) MNA: Krishan Score: 11 Nutrition Type of Feeding Tube Jejunostomy 05/13/25 05:30 Type of Feeding Tube Jejunostomy 05/12/25 04:00 Labs: RBC 3.33 X10^6/uL (4.5-5.9) L 05/12/25 05:30 Hgb 8.6 g/dL (13.5-17.5) L 05/12/25 05:30 Hct 26.1 % (41-53) L 05/12/25 05:30 Creatinine 0.37 mg/dL (0.66-1.25) L 05/13/25 05:40 Lactate 1.2 mmol/L (0.7-2.1) 05/10/25 10:00 Nutrition Diagnosis: Inadequate oral intake r/t dysphagia with PEG malfunction as evidenced by new j-tube Altered GI function r/t changes in GI tract motility as evidenced by copious loose stool, inadequate soluble fiber Increased nutrient needs (protein) r/t healing needs as evidenced by skin breakdown and wounds Interventions: 1. Currently due to formula available at this hospital pt is on the following enteral plan: Continuous Pivot 1.5 via J-tube advancing as tolerated by 10 mL/hr until goal rate of 50 mL/hr. Flush 60 mL free water Q4H. Provide banatrol (.39 oz packet with 40 kcals, 2 g fiber) TID per packet instructions. Remaining fluids needs being met with IV fluids, as IV fluids adjust, will increase frequency of free water flushes. 2. Upon discharge: Patient tolerates [employer] Peptide 1.5 formula at home. Recommend pt to return back to this formula to prevent diarrhea and further skin breakdown and for best absorption with pt's hx of malabsorption and protein calorie malnutrition. The patient's discharge formula recommendations are as follows: -Continuous [employer] Peptide 1.5 via J-tube at goal rate of 55 mL/hr. -Provide banatrol (.39 oz packet with 40 kcals, 2 g fiber) TID per packet instructions. -Flush 90 mL of free water 6 times daily. -Due to wound healing, recommend 1 ProSource (45 mL with 11 grams protein) added to patients J-tube 1 time daily per packet instructions. Start upon discharge and continue for 2 weeks to meet protein needs required. -Transition to nocturnal or cyclic feeds based on patient/family preference with assistance from [facility] dietitian team 3. Follow up with outpatient dietitian for management of feeds and tolerance. Dietary referral still in place. Will coordinate with scheduling team for 2-3 week check in after d/c. EER: 1900 kcals (25 kcals/kg per BMI) 100-115 g protein (1.25-1.5 g/kg per ICU and wounds), 0065-3458 mL fluids (1mL per kcal vs 30 mL/kg) Monitoring/Evaluations: following daily Electronically Signed by: Flakita Hopkins 05/13/25 13:11 Clinical Dietitian [address] [id number]
--- NOTE | 2025-05-13 14:22 | CM.DPC ---
DCP Cont: Per MD and Surgeon, pt making progress with tolerating his tube feeds but remains very weak without cough but easily de-sats. Not yet stable for discharge and awaiting Wound Consult for pt's wound needs on his back side. ROBIN called [facility] and reminded them of the Wound Consult orders placed by Surgeon last week on 05/09 leading into the weekend and they will alert Dr. Shore. Confirmed that pt is open with [facility] and faxed clinicals to review and alerted them to need for RN for wound care and ongoing and Daniel confirms only Resumption Orders needed at discharge. ROBIN called SHAUN Sidhu at the main [facility] number [phone] and confirmed that pt has 3 rotating [facility] CGs with 393 hours a month and lives independently in an apt in [place] and mother lives just down the road and is his emergency contact and person to show up if needed but not his [facility] CG as mother works a job herself. Pt has a new CG and they are aware of his high care needs and now pressure wounds and requesting HH RN for increased wound care with [facility]. Thea confirms that pt has a w/c van at home and CGs are approved to transport pt to appointments and outside the home in case outpt Wound Clinic needed at d/c. Thea states that pt typically declines leaving his place as he gets easily over stimulated by crowds and noise but CGs attempt to get him out of the house for short excursions and quality of life. SHAUN currently has no significant concerns with plan of discharge back home with [facility] and maybe outpt wound care. Thea declines the need for any faxed clinicals at this time. ROBIN attempted to determine if pt could be accepted at SNF for increased wound care and needs before home and pt's straight Medicaid and [facility] are barriers to SNF coverage. Currently [facility] and [facility] declines as they cannot accept his Medicaid. ROBIN called pt's enteral feeding company [facility] at [phone] and confirmed their fax of [phone] and faxed pt's updated recommendations for tube feeds at d/c and pill packer marty and provided Nupur Boggs with the extensions given by [facility] [phone] and [phone] and she will attempt to contact them to coordinate outpt f/u with [facility] at d/c. Plan: SW to follow closely for Wound Consult for recommendations for wound care and plan of discharge home with [facility] CGs and mother support and Resumption of [facility]. SW to alert [facility] of pt's discharge home at d/c so they can supply recommended tube feeds. ARIC Ca
--- NOTE | 2025-05-13 16:25 | PM.CN ---
History of Present Illness Consult details Date Patient Seen: 05/13/25 Time Patient Seen: 15:45 Chief complaint: feeding tube issues- pain and nothing going in Narrative: The patient is a 45-year-old male were cerebral palsy who presented with dislodged meant of his PEG tube. He was found to have extravasation into the abdomen and developed peritonitis. The patient underwent exploratory laparotomy, repair of stomach, and placement of jejunostomy feeding tube on May 10, 2025. Postoperatively the patient was noted to have a pressure injury of the left buttock. ICU nurses have been applying iodoform gauze and Opti- foam. The patient has a tracheostomy and has history of frequent aspiration pneumonia. The patient is unable to give any history. He resides at home with his mother. Meds Home Medications and Allergies Home Medications ?Medication ?Instructions ?Recorded ?Confirmed ?Type Battery Powered Lift #1 ea 03/02/18 04/26/25 Rx Power Chair #1 ea 10/16/18 04/26/25 Rx Disabled Parking #1 ea 01/15/19 04/26/25 Rx Shower Chair #1 ea 07/04/19 04/26/25 Rx ferrous sulfate 325 mg (65 mg 130 mg PO DAILY 10/29/21 05/08/25 History iron) tablet XL mattress for semi-electric #1 ea 09/27/22 04/26/25 Rx hospital bed baclofen 5 mg/5 mL oral solution 5 mg (5 mL) PO DAILY #473 mL 01/20/23 05/08/25 Rx syringe with needle 3 mL 20 gauge #1 ea 08/10/23 04/26/25 History x 1 (BD Luer-Rafael Syringe) Mattress #1 ea 03/28/24 04/26/25 Rx Semi-electric hospital bed #1 ea 03/28/24 04/26/25 Rx apixaban 5 mg tablet (Eliquis) 5 mg PO BID #60 tabs 08/15/24 05/08/25 Rx blood-glucose meter (True Metrix #1 ea 12/05/24 04/26/25 History Air Glucose Meter) glucagon 1 mg solution for 1 mg IM ONCE 12/05/24 05/08/25 History injection (Glucagon Emergency Kit) folic acid 1 mg tablet 1 mg PO DAILY #90 tabs 12/13/24 05/08/25 Rx Lingraphica Communication Device #1 ea 05/07/25 08/08/25 Rx scopolamine base 1 mg over 3 days 1 patch topical Q3D #24 ea 03/15/25 05/08/25 Rx transdermal patch sodium chloride 0.9 % for 2.5 ml inhalation Q12H PRN 03/15/25 05/08/25 Rx nebulization shortness of breath or wheezing #300 mL suction catheter kit #5 ea 03/20/25 04/26/25 Rx sertraline 100 mg tablet 200 mg (2 x 100 mg) PO DAILY #60 05/01/25 05/08/25 Rx tabs banana 1 ea PO 4XD #450 ea 05/02/25 05/08/25 Rx flakes-transgalactooligosaccharide oral powder packet (Banatrol Plus oral powder packet) midodrine 10 mg tablet 10 mg feeding tube Q8H #270 tabs 05/06/25 05/08/25 Rx Allergies Allergy/AdvReac Type Severity Reaction Status Date / Time Penicillins (PENICILLINS) Allergy Severe RASH Verified 05/09/25 09:51 levofloxacin Allergy Intermediate Rash Verified 05/09/25 09:51 Review of Systems Review of Systems Narrative: Unable to obtain Exam Vital Signs (past 8 hours): - 05/13/25 08:30 05/13/25 08:32 05/13/25 08:32 Temperature Pulse Rate 107 H 105 H Respiratory Rate 25 H 24 Blood Pressure 92/68 Pulse Oximetry 100 100 Oxygen Delivery Method Fraction of Inspired Oxygen 05/13/25 08:37 05/13/25 08:45 05/13/25 09:00 Temperature Pulse Rate 116 H 105 H Respiratory Rate 24 21 Blood Pressure Pulse Oximetry 99 79 L Oxygen Delivery Method Trach Collar Aerosol Mask Fraction of Inspired Oxygen 28 05/13/25 09:00 05/13/25 09:00 05/13/25 09:15 Temperature Pulse Rate 101 H 94 H Respiratory Rate 17 17 Blood Pressure 89/70 L Pulse Oximetry 100 95 Oxygen Delivery Method Fraction of Inspired Oxygen 05/13/25 09:30 05/13/25 09:45 05/13/25 10:00 Temperature Pulse Rate 92 H 91 H 93 H Respiratory Rate 25 H 24 26 H Blood Pressure Pulse Oximetry 96 96 97 Oxygen Delivery Method Fraction of Inspired Oxygen 05/13/25 10:00 05/13/25 10:15 05/13/25 10:30 Temperature Pulse Rate 97 H 96 H Respiratory Rate 30 H 26 H Blood Pressure 86/62 L Pulse Oximetry 95 96 Oxygen Delivery Method Fraction of Inspired Oxygen 05/13/25 10:45 05/13/25 11:00 05/13/25 11:01 Temperature Pulse Rate 99 H 102 H 100 H Respiratory Rate 28 H 30 H 29 H Blood Pressure Pulse Oximetry 97 96 96 Oxygen Delivery Method Fraction of Inspired Oxygen 05/13/25 11:01 05/13/25 11:15 05/13/25 11:30 Temperature Pulse Rate 101 H 104 H Respiratory Rate 31 H 32 H Blood Pressure 91/67 Pulse Oximetry 87 L 96 Oxygen Delivery Method Fraction of Inspired Oxygen 05/13/25 11:45 05/13/25 12:00 05/13/25 12:00 Temperature Pulse Rate 104 H 109 H Respiratory Rate 32 H 33 H Blood Pressure 91/66 Pulse Oximetry 97 97 Oxygen Delivery Method Fraction of Inspired Oxygen 05/13/25 12:15 05/13/25 12:30 05/13/25 12:45 Temperature 97.1 F L Pulse Rate 109 H 106 H 105 H Respiratory Rate 26 H 31 H 31 H Blood Pressure Pulse Oximetry 95 97 98 Oxygen Delivery Method Fraction of Inspired Oxygen 05/13/25 13:00 05/13/25 13:00 05/13/25 13:00 Temperature Pulse Rate 106 H Respiratory Rate 29 H Blood Pressure 95/71 Pulse Oximetry 99 Oxygen Delivery Method Aerosol Mask Fraction of Inspired Oxygen 05/13/25 13:15 05/13/25 13:30 05/13/25 13:45 Temperature Pulse Rate 107 H 110 H 109 H Respiratory Rate 32 H 32 H 31 H Blood Pressure Pulse Oximetry 95 99 98 Oxygen Delivery Method Fraction of Inspired Oxygen 05/13/25 14:00 05/13/25 14:00 05/13/25 14:40 Temperature Pulse Rate 107 H 108 H Respiratory Rate 29 H 31 H Blood Pressure 88/67 L Pulse Oximetry 98 99 Oxygen Delivery Method Trach Collar Fraction of Inspired Oxygen 28 Fraction of Inspired Oxygen 28 SaO2/FiO2 Ratio 353 Oxygen Delivery Method Trach Collar Oxygen Flow Rate 10 Skin Other: Stage III pressure ulcer over left iliac crest, no sign of active infection, small amount of necrotic tissue Objective Labs 05/12/25 05:30 05/13/25 05:40 Labs: Laboratory Results - last 24 hr 05/12/25 05/13/25 05/13/25 18:43 00:02 05:40 Sodium 136 L Potassium 3.3 L Chloride 112 H Carbon Dioxide 20 L BUN 14 Creatinine 0.37 L Estimated GFR > 60 BUN/Creatinine Ratio 37.8 H Glucose 87 POC Whole Bld Glucose 96 88 Calcium 7.7 L Vancomycin Peak Vancomycin Trough 16.8 05/13/25 05/13/25 08:30 12:31 Sodium Potassium Chloride Carbon Dioxide BUN Creatinine Estimated GFR BUN/Creatinine Ratio Glucose POC Whole Bld Glucose 98 Calcium Vancomycin Peak 36.3 Vancomycin Trough [facility] Medical History Excessive cerumen in both ear canals Chronic anticoagulation Iron deficiency anemia History of pulmonary embolism Status post radiation therapy Chronic anticoagulation Tracheostomy in place Sacral decubitus ulcer, stage III Protein calorie malnutrition Hyponatremia Dysphagia Recurrent aspiration pneumonia Depression, major, recurrent Jejunostomy tube present Influenza A Anemia Pneumonia 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 Father No problems noted. Social History marital status: unmarried,single details: Lives independantly with part-time caregivers household members: none lives independently: Yes occupational status: disabled Tobacco & Substance Use Smoking Status: Never smoker alcohol intake: never substance use type: marijuana Assessment & Plan Assessment and plan (1) Pressure ulcer of left buttock, stage 3: Status: Acute Assessment & Plan narrative: Stage III pressure ulcer over left iliac crest, no sign of infection. Plan to start daily wet to wet dressing changes with Dakin's solution with Opti-foam outer dressing to help with pressure offloading. Continue pressure offloading with air mattress, turn frequently, and start protein supplementation. Follow up at wound center after discharge for further evaluation and treatment. Time-Based Coding :: [TOTAL MINUTES] spent with patient and on the chart (including review of chart, obtaining history, exam, reviewing outside data, placing orders, documenting exam and treatment plan, and counseling patient) on [DATE].
--- NOTE | 2025-05-13 19:05 | P.PN_ITS ---
Subjective Subjective Date Patient Seen: 05/12/25 Interval history: Chief complaint: Sepsis secondary to a gastric perforation and leak into peritoneum of gastric contents around gastrostomy tube History of present illness: 05/09: Patient is seen at the request of Dr. Naqvi of surgery. Apparently the patient arrived last night with a question of PEG tube dysfunction. A PEG tube was replaced in the ED but was not functioning as expected after placement. The patient was admitted by surgery to the [facility] and this morning taken to the OR for investigation. Prior to this, I was alerted of the patient's clinical status and I did initiate lab tests, blood cultures, IV fluids, and IV cefepime for possible sepsis. [place] [id number] with a normal lactic acid. In the OR, the PEG to appeared to be in a false passage. The gastrostomy channel was closed and a J-tube was placed. The peritoneum was washed out. It did not appear grossly that tube feeds were in the peritoneum and the patient was subsequently brought to the ICU where he was on norepinephrine through a peripheral IV and appeared to be very dry with no urine output after 2 L of fluids in the OR. The patient has a noncuffed tracheostomy in place, and severe skin injury to the sacrum including 1 area with possible induration and a wound which is about 2-3 cm in diameter. See media photos. General surgery was alerted to the condition of the back at this time. Micro was reviewed this patient has had MRSA and Pseudomonas in sputum in the past. He was at high risk for MDR infections. He was awake, and moaning, but unable to follow commands or track. 05/10: Patient is minimally responsive white count 88623 92% neutrophils VBG 7.25 pCO2 46 PO2 37 sodium 139 potassium 3.5 chloride 110 CO2 19 BUN 19 creatinine 0.54 Chest x-ray: There is a tracheostomy tube seen in place. Lungs and pleura: Significant volume loss is seen on the left side. There is left-sided interstitial prominence. There is blunting of the left costophrenic angle. 05/11: Patient is receiving chest physiotherapy there is improvement in the lung sounds on the left patient is more animated and regards with eyes 05/12: Secretions clearing with chest physiotherapy patient appears alert is nonverbal regards with eyes only Review of systems: Incapable due to cognitive limitations Physical examination: cachectic and chronically ill in appearance . Regards with eyes He was a tracheostomy in place. Very weak respiratory effort gross rhonchi on left Heart sounds distant His abdomen is flat, and non tender to palpation. A J-tube is in place. Extremities are atrophied and there was no edema. large area of skin pressure injury over the sacrum and lower back as well as a wound in the right paraspinal area above the pelvis. See media photos for this. Assessment and plan: Peg tube in false lumen, removed, Closure of gastrostomy track and placement of J-tube, active. * Appreciate surgery expertise * Tube feeding at 10 mL an hour per surgery Septic shock with source unclear, differential of lung with history of MRSA and Pseudomonas versus peritonitis verses back infected wounds. Active. * Cultures pending * Continue cefepime vancomycin Severe soft tissue injury of sacrum with area of induration and a wound of 2 cm in diameter, active. * Wound care team * Diflucan 4 days 200 mg Chronic uncuffed tracheostomy, active. * Trach management Severe volume depletion, active. * Continue intravenous fluids new Pseudobulbar palsy, and spastic left hemiparesis with long-term tracheostomy and history of recurrent aspiration pneumonia. * Suspect patient has reaspirated Code status: * FULL CODE * Mother is proxy decision maker. * Prognosis is guarded. * Discussed with PCP, Dr. Marshall. Disposition: * Attending is Dr. Naqvi surgery * ICU status * Disposition depending on outcome Time-Based Coding :: 45 min spent with patient and on the chart (including review of chart, obtaining history, exam, reviewing outside data, placing orders, documenting exam and treatment plan, and counseling patient) Exam Vital Signs (past 8 hours): - 05/13/25 11:15 05/13/25 11:30 05/13/25 11:45 Temperature Pulse Rate 101 H 104 H 104 H Respiratory Rate 31 H 32 H 32 H Blood Pressure Pulse Oximetry 87 L 96 97 Oxygen Delivery Method Fraction of Inspired Oxygen 05/13/25 12:00 05/13/25 12:00 05/13/25 12:15 Temperature Pulse Rate 109 H 109 H Respiratory Rate 33 H 26 H Blood Pressure 91/66 Pulse Oximetry 97 95 Oxygen Delivery Method Fraction of Inspired Oxygen 05/13/25 12:30 05/13/25 12:45 05/13/25 13:00 Temperature 97.1 F L Pulse Rate 106 H 105 H Respiratory Rate 31 H 31 H Blood Pressure Pulse Oximetry 97 98 Oxygen Delivery Method Aerosol Mask Fraction of Inspired Oxygen 05/13/25 13:00 05/13/25 13:00 05/13/25 13:15 Temperature Pulse Rate 106 H 107 H Respiratory Rate 29 H 32 H Blood Pressure 95/71 Pulse Oximetry 99 95 Oxygen Delivery Method Fraction of Inspired Oxygen 05/13/25 13:30 05/13/25 13:45 05/13/25 14:00 Temperature Pulse Rate 110 H 109 H Respiratory Rate 32 H 31 H Blood Pressure 88/67 L Pulse Oximetry 99 98 Oxygen Delivery Method Fraction of Inspired Oxygen 05/13/25 14:00 05/13/25 14:15 05/13/25 14:30 Temperature Pulse Rate 107 H 109 H 109 H Respiratory Rate 29 H 29 H 30 H Blood Pressure Pulse Oximetry 98 98 99 Oxygen Delivery Method Fraction of Inspired Oxygen 05/13/25 14:40 05/13/25 14:45 05/13/25 15:00 Temperature Pulse Rate 108 H 110 H 108 H Respiratory Rate 31 H 33 H 31 H Blood Pressure Pulse Oximetry 99 99 99 Oxygen Delivery Method Trach Collar Fraction of Inspired Oxygen 05/13/25 15:00 05/13/25 15:15 05/13/25 15:30 Temperature Pulse Rate 109 H 109 H Respiratory Rate 31 H 30 H Blood Pressure 100/77 Pulse Oximetry 99 98 Oxygen Delivery Method Fraction of Inspired Oxygen 05/13/25 15:45 05/13/25 16:00 05/13/25 16:00 Temperature Pulse Rate 101 H 99 H Respiratory Rate 31 H 31 H Blood Pressure 89/68 L Pulse Oximetry 99 99 Oxygen Delivery Method Fraction of Inspired Oxygen 05/13/25 16:15 05/13/25 16:30 05/13/25 16:45 Temperature Pulse Rate 97 H 100 H 98 H Respiratory Rate 28 H 20 29 H Blood Pressure Pulse Oximetry 97 64 L 98 Oxygen Delivery Method Fraction of Inspired Oxygen 05/13/25 17:00 05/13/25 17:00 05/13/25 17:00 Temperature 97.3 F L Pulse Rate 97 H Respiratory Rate 29 H Blood Pressure 85/61 L Pulse Oximetry 100 Oxygen Delivery Method Aerosol Mask Fraction of Inspired Oxygen 05/13/25 17:15 05/13/25 17:30 05/13/25 17:45 Temperature Pulse Rate 99 H 101 H 104 H Respiratory Rate 29 H 28 H 30 H Blood Pressure Pulse Oximetry 100 100 100 Oxygen Delivery Method Fraction of Inspired Oxygen 05/13/25 18:00 05/13/25 18:00 05/13/25 18:15 Temperature Pulse Rate 104 H 104 H Respiratory Rate 30 H 30 H Blood Pressure 100/69 Pulse Oximetry 100 100 Oxygen Delivery Method Fraction of Inspired Oxygen 05/13/25 18:30 05/13/25 18:45 Temperature Pulse Rate 105 H 107 H Respiratory Rate 30 H 27 H Blood Pressure Pulse Oximetry 100 98 Oxygen Delivery Method Fraction of Inspired Oxygen Fraction of Inspired Oxygen 28 SaO2/FiO2 Ratio 353 Oxygen Delivery Method Aerosol Mask Oxygen Flow Rate 10 Objective Labs 05/12/25 05:30 05/13/25 05:40 Labs: Laboratory Results - last 24 hr 05/13/25 05/13/25 05/13/25 00:02 05:40 08:30 Sodium 136 L Potassium 3.3 L Chloride 112 H Carbon Dioxide 20 L BUN 14 Creatinine 0.37 L Estimated GFR > 60 BUN/Creatinine Ratio 37.8 H Glucose 87 POC Whole Bld Glucose 88 Calcium 7.7 L Vancomycin Peak 36.3 Vancomycin Trough 16.8 05/13/25 05/13/25 12:31 18:48 Sodium Potassium Chloride Carbon Dioxide BUN Creatinine Estimated GFR BUN/Creatinine Ratio Glucose POC Whole Bld Glucose 98 75 Calcium Vancomycin Peak Vancomycin Trough [facility] Medical History Excessive cerumen in both ear canals Chronic anticoagulation Iron deficiency anemia History of pulmonary embolism Status post radiation therapy Chronic anticoagulation Tracheostomy in place Sacral decubitus ulcer, stage III Protein calorie malnutrition Hyponatremia Dysphagia Recurrent aspiration pneumonia Depression, major, recurrent Jejunostomy tube present Influenza A Anemia Pneumonia 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 Father No problems noted. Social History marital status: unmarried,single details: Lives independantly with part-time caregivers household members: none lives independently: Yes occupational status: disabled Smoking Status: Never smoker alcohol intake: never substance use type: marijuana Assessment & Plan Time-Based Coding :: [TOTAL MINUTES] spent with patient and on the chart (including review of chart, obtaining history, exam, reviewing outside data, placing orders, documenting exam and treatment plan, and counseling patient) on [DATE].
--- NOTE | 2025-05-13 19:05 | P.PN_ITS ---
Subjective Subjective Date Patient Seen: 05/13/25 Interval history: Chief complaint: Sepsis secondary to a gastric perforation and leak into peritoneum of gastric contents around gastrostomy tube History of present illness: 05/09: Patient is seen at the request of Dr. Naqvi of surgery. Apparently the patient arrived last night with a question of PEG tube dysfunction. A PEG tube was replaced in the ED but was not functioning as expected after placement. The patient was admitted by surgery to the [facility] and this morning taken to the OR for investigation. Prior to this, I was alerted of the patient's clinical status and I did initiate lab tests, blood cultures, IV fluids, and IV cefepime for possible sepsis. [place] [address] with a normal lactic acid. In the OR, the PEG to appeared to be in a false passage. The gastrostomy channel was closed and a J-tube was placed. The peritoneum was washed out. It did not appear grossly that tube feeds were in the peritoneum and the patient was subsequently brought to the ICU where he was on norepinephrine through a peripheral IV and appeared to be very dry with no urine output after 2 L of fluids in the OR. The patient has a noncuffed tracheostomy in place, and severe skin injury to the sacrum including 1 area with possible induration and a wound which is about 2-3 cm in diameter. See media photos. General surgery was alerted to the condition of the back at this time. Micro was reviewed this patient has had MRSA and Pseudomonas in sputum in the past. He was at high risk for MDR infections. He was awake, and moaning, but unable to follow commands or track. 05/10: Patient is minimally responsive white count 83509 92% neutrophils VBG 7.25 pCO2 46 PO2 37 sodium 139 potassium 3.5 chloride 110 CO2 19 BUN 19 creatinine 0.54 Chest x-ray: There is a tracheostomy tube seen in place. Lungs and pleura: Significant volume loss is seen on the left side. There is left-sided interstitial prominence. There is blunting of the left costophrenic angle. 05/11: Patient is receiving chest physiotherapy there is improvement in the lung sounds on the left patient is more animated and regards with eyes 05/12: Secretions clearing with chest physiotherapy patient appears alert is nonverbal regards with eyes only 05/13: Patient is more alert good response to chest physiotherapy resumed tube feeding and is tolerating per J-tube sputum cultures came back: 1. Staphylococcus aureus [facility].I.[facility]. RX --------- --- * Daptomycin 0.5 S * Vancomycin 1 S * Ciprofloxacin >=8 R * Clindamycin 0.25 S * Doxycycline <=0.5 S * Erythromycin <=0.25 S * Gentamicin <=0.5 S * Levofloxacin 4 R * Linezolid 2 S * Moxifloxacin 2 R * Oxacillin Ap 0.5 S * Rifampin <=0.5 S * Tetracycline <=1 S * Trimethoprim/Sulfamethoxazole <=10 S 2. Pseudomonas aeruginosa [facility].I.[facility]. RX --------- --- * Cefepime 2 S * Ceftazidime 2 S * Ciprofloxacin 0.12 S * Levofloxacin 0.5 S * Meropenem 1 S * Piperacillin/Tazobactam 8 S 3. Citrobacter freundii [facility].I.[facility]. RX --------- --- * Amoxicillin/Clavulanate R * Aztreonam <=1 S * Cefepime E-test 0.064 S * Cefuroxime R * Ciprofloxacin <=0.06 S * Ertapenem <=0.12 S * Gentamicin <=1 S * Levofloxacin <=0.12 S * Meropenem <=0.25 S * Tetracycline <=1 S Review of systems: Incapable due to cognitive limitations Physical examination: cachectic and chronically ill in appearance . Regards with eyes He was a tracheostomy in place. Very weak respiratory effort gross rhonchi on left Heart sounds distant His abdomen is flat, and non tender to palpation. A J-tube is in place. Extremities are atrophied and there was no edema. large area of skin pressure injury over the sacrum and lower back as well as a wound in the right paraspinal area above the pelvis. See media photos for this. Assessment and plan: Peg tube in false lumen, removed, Closure of gastrostomy track and placement of J-tube, active. * Appreciate surgery expertise * Tube feeding advancing an hour per surgery Septic shock with source unclear, differential of lung with history of MRSA and Pseudomonas versus peritonitis verses back infected wounds. Active. * Cultures pending * Continue cefepime for respiratory * vancomycin for skin Severe soft tissue injury of sacrum with area of induration and a wound of 2 cm in diameter, active. * Wound care team * Diflucan 4 days 200 mg Chronic uncuffed tracheostomy, active. * Trach management Severe volume depletion, active. * Continue intravenous fluids Pseudobulbar palsy, and spastic left hemiparesis with long-term tracheostomy and history of recurrent aspiration pneumonia. 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 * Prognosis is guarded. * Discussed with PCP, Dr. Marshall. Disposition: * Attending is Dr. Naqvi surgery * ICU status * Disposition depending on outcome Time-Based Coding :: 45 min spent with patient and on the chart (including review of chart, obtaining history, exam, reviewing outside data, placing orders, documenting exam and treatment plan, and counseling patient) Exam Vital Signs (past 8 hours): - 05/13/25 11:15 05/13/25 11:30 05/13/25 11:45 Temperature Pulse Rate 101 H 104 H 104 H Respiratory Rate 31 H 32 H 32 H Blood Pressure Pulse Oximetry 87 L 96 97 Oxygen Delivery Method Fraction of Inspired Oxygen 05/13/25 12:00 05/13/25 12:00 05/13/25 12:15 Temperature Pulse Rate 109 H 109 H Respiratory Rate 33 H 26 H Blood Pressure 91/66 Pulse Oximetry 97 95 Oxygen Delivery Method Fraction of Inspired Oxygen 05/13/25 12:30 05/13/25 12:45 05/13/25 13:00 Temperature 97.1 F L Pulse Rate 106 H 105 H Respiratory Rate 31 H 31 H Blood Pressure Pulse Oximetry 97 98 Oxygen Delivery Method Aerosol Mask Fraction of Inspired Oxygen 05/13/25 13:00 05/13/25 13:00 05/13/25 13:15 Temperature Pulse Rate 106 H 107 H Respiratory Rate 29 H 32 H Blood Pressure 95/71 Pulse Oximetry 99 95 Oxygen Delivery Method Fraction of Inspired Oxygen 05/13/25 13:30 05/13/25 13:45 05/13/25 14:00 Temperature Pulse Rate 110 H 109 H Respiratory Rate 32 H 31 H Blood Pressure 88/67 L Pulse Oximetry 99 98 Oxygen Delivery Method Fraction of Inspired Oxygen 05/13/25 14:00 05/13/25 14:15 05/13/25 14:30 Temperature Pulse Rate 107 H 109 H 109 H Respiratory Rate 29 H 29 H 30 H Blood Pressure Pulse Oximetry 98 98 99 Oxygen Delivery Method Fraction of Inspired Oxygen 05/13/25 14:40 05/13/25 14:45 05/13/25 15:00 Temperature Pulse Rate 108 H 110 H 108 H Respiratory Rate 31 H 33 H 31 H Blood Pressure Pulse Oximetry 99 99 99 Oxygen Delivery Method Trach Collar Fraction of Inspired Oxygen 28 05/13/25 15:00 05/13/25 15:15 05/13/25 15:30 Temperature Pulse Rate 109 H 109 H Respiratory Rate 31 H 30 H Blood Pressure 100/77 Pulse Oximetry 99 98 Oxygen Delivery Method Fraction of Inspired Oxygen 05/13/25 15:45 05/13/25 16:00 05/13/25 16:00 Temperature Pulse Rate 101 H 99 H Respiratory Rate 31 H 31 H Blood Pressure 89/68 L Pulse Oximetry 99 99 Oxygen Delivery Method Fraction of Inspired Oxygen 05/13/25 16:15 05/13/25 16:30 05/13/25 16:45 Temperature Pulse Rate 97 H 100 H 98 H Respiratory Rate 28 H 20 29 H Blood Pressure Pulse Oximetry 97 64 L 98 Oxygen Delivery Method Fraction of Inspired Oxygen 05/13/25 17:00 05/13/25 17:00 05/13/25 17:00 Temperature 97.3 F L Pulse Rate 97 H Respiratory Rate 29 H Blood Pressure 85/61 L Pulse Oximetry 100 Oxygen Delivery Method Aerosol Mask Fraction of Inspired Oxygen 05/13/25 17:15 05/13/25 17:30 05/13/25 17:45 Temperature Pulse Rate 99 H 101 H 104 H Respiratory Rate 29 H 28 H 30 H Blood Pressure Pulse Oximetry 100 100 100 Oxygen Delivery Method Fraction of Inspired Oxygen 05/13/25 18:00 05/13/25 18:00 05/13/25 18:15 Temperature Pulse Rate 104 H 104 H Respiratory Rate 30 H 30 H Blood Pressure 100/69 Pulse Oximetry 100 100 Oxygen Delivery Method Fraction of Inspired Oxygen 05/13/25 18:30 05/13/25 18:45 Temperature Pulse Rate 105 H 107 H Respiratory Rate 30 H 27 H Blood Pressure Pulse Oximetry 100 98 Oxygen Delivery Method Fraction of Inspired Oxygen Fraction of Inspired Oxygen 28 SaO2/FiO2 Ratio 353 Oxygen Delivery Method Aerosol Mask Oxygen Flow Rate 10 Objective Labs 05/12/25 05:30 05/13/25 05:40 Labs: Laboratory Results - last 24 hr 05/13/25 05/13/25 05/13/25 00:02 05:40 08:30 Sodium 136 L Potassium 3.3 L Chloride 112 H Carbon Dioxide 20 L BUN 14 Creatinine 0.37 L Estimated GFR > 60 BUN/Creatinine Ratio 37.8 H Glucose 87 POC Whole Bld Glucose 88 Calcium 7.7 L Vancomycin Peak 36.3 Vancomycin Trough 16.8 05/13/25 05/13/25 12:31 18:48 Sodium Potassium Chloride Carbon Dioxide BUN Creatinine Estimated GFR BUN/Creatinine Ratio Glucose POC Whole Bld Glucose 98 75 Calcium Vancomycin Peak Vancomycin Trough PFSH Medical History Excessive cerumen in both ear canals Chronic anticoagulation Iron deficiency anemia History of pulmonary embolism Status post radiation therapy Chronic anticoagulation Tracheostomy in place Sacral decubitus ulcer, stage III Protein calorie malnutrition Hyponatremia Dysphagia Recurrent aspiration pneumonia Depression, major, recurrent Jejunostomy tube present Influenza A Anemia Pneumonia 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 Father No problems noted. Social History marital status: unmarried,single details: Lives independantly with part-time caregivers household members: none lives independently: Yes occupational status: disabled Smoking Status: Never smoker alcohol intake: never substance use type: marijuana Assessment & Plan Time-Based Coding :: [TOTAL MINUTES] spent with patient and on the chart (including review of chart, obtaining history, exam, reviewing outside data, placing orders, documenting exam and treatment plan, and counseling patient) on [DATE].
[2025-05-13] MEDS: SERTRALINE 50 MG TABLET 200 MG TUBE (20:15)
[2025-05-14] VITALS (85 sets, daily range): BP systolic 77–120; BP diastolic 51–80; PULSE 89–105; RESP 18–29; TEMP 36.1–37; O2SAT 91–100
[2025-05-14] MEDS: ACETAMINOPHEN IV 1,000 MG/100 ML VIAL 400 MG IV ×2 (00:06→18:42)
[2025-05-14 05:53] LABS: Blood Urea Nitrogen 16 mg/dL (9-20); Calcium 7.6 mg/dL (8.4-10.2); Carbon Dioxide 21 mmol/L (22-32); Chloride 112 mmol/L (98-107); Estimated Glomerular Filt Rate > 60 mL/min (>60); Glucose 84 mg/dL (70-99); HEMOLYSIS < 15 (0-50); Magnesium 1.6 mg/dL (1.6-2.3); Potassium 3.7 mmol/L (3.4-5.1); Sodium 136 mmol/L (137-145)
[2025-05-14] MEDS: VANCOMYCIN 1,000 MG/200 ML PIGGYBACK 200 MG IV ×2 (06:06→18:26)
[2025-05-14] MEDS: SODIUM CHLORIDE 0.9% 1,000 ML 50 ML IV (06:35)
--- NOTE | 2025-05-14 06:58 | P.PN_ITS ---
Subjective Subjective Date Patient Seen: 05/14/25 Time Patient Seen: 06:58 Interval history: POD#5 J-tube Tolerating TF at 30cc/hr No high residual, no emesis +BMs Exam Vital Signs (past 8 hours): - 05/13/25 23:00 05/13/25 23:00 05/13/25 23:03 Temperature 97.0 F L Pulse Rate 102 H 102 H Respiratory Rate 23 25 H Blood Pressure 77/56 L Pulse Oximetry 98 99 Oxygen Delivery Method Oxygen Flow Rate 8 Fraction of Inspired Oxygen 05/13/25 23:03 05/13/25 23:15 05/13/25 23:30 Temperature Pulse Rate 102 H 101 H Respiratory Rate 24 22 Blood Pressure 82/57 L Pulse Oximetry 100 99 Oxygen Delivery Method Oxygen Flow Rate Fraction of Inspired Oxygen 05/13/25 23:45 05/14/25 00:00 05/14/25 00:00 Temperature Pulse Rate 100 H 100 H Respiratory Rate 23 23 Blood Pressure 77/55 L Pulse Oximetry 99 99 Oxygen Delivery Method Oxygen Flow Rate Fraction of Inspired Oxygen 05/14/25 00:00 05/14/25 00:03 05/14/25 00:03 Temperature Pulse Rate 100 H 101 H Respiratory Rate 23 24 Blood Pressure 95/64 Pulse Oximetry 99 99 Oxygen Delivery Method Oxygen Flow Rate Fraction of Inspired Oxygen 05/14/25 00:15 05/14/25 00:30 05/14/25 00:45 Temperature Pulse Rate 101 H 100 H 100 H Respiratory Rate 23 22 22 Blood Pressure Pulse Oximetry 99 100 99 Oxygen Delivery Method Oxygen Flow Rate Fraction of Inspired Oxygen 05/14/25 01:00 05/14/25 01:00 05/14/25 01:15 Temperature Pulse Rate 101 H 101 H Respiratory Rate 22 23 Blood Pressure 84/59 L Pulse Oximetry 98 99 Oxygen Delivery Method Oxygen Flow Rate Fraction of Inspired Oxygen 05/14/25 01:30 05/14/25 01:45 05/14/25 02:00 Temperature Pulse Rate 100 H 102 H Respiratory Rate 22 23 Blood Pressure 83/59 L Pulse Oximetry 98 98 Oxygen Delivery Method Oxygen Flow Rate Fraction of Inspired Oxygen 05/14/25 02:00 05/14/25 02:11 05/14/25 02:15 Temperature Pulse Rate 101 H 99 H 98 H Respiratory Rate 21 22 21 Blood Pressure Pulse Oximetry 98 99 99 Oxygen Delivery Method Humidification Trach Collar Oxygen Flow Rate Fraction of Inspired Oxygen 28 05/14/25 02:30 05/14/25 02:45 05/14/25 03:00 Temperature Pulse Rate 99 H 100 H Respiratory Rate 21 22 Blood Pressure 81/59 L Pulse Oximetry 99 100 Oxygen Delivery Method Oxygen Flow Rate Fraction of Inspired Oxygen 05/14/25 03:00 05/14/25 03:15 05/14/25 03:30 Temperature 97 F L Pulse Rate 100 H 100 H 100 H Respiratory Rate 21 20 22 Blood Pressure Pulse Oximetry 99 100 100 Oxygen Delivery Method Oxygen Flow Rate 8 Fraction of Inspired Oxygen 05/14/25 03:45 05/14/25 04:00 05/14/25 04:00 Temperature Pulse Rate 99 H 99 H Respiratory Rate 20 20 Blood Pressure 77/54 L Pulse Oximetry 100 100 Oxygen Delivery Method Oxygen Flow Rate Fraction of Inspired Oxygen 05/14/25 04:02 05/14/25 04:02 05/14/25 04:15 Temperature Pulse Rate 99 H 98 H Respiratory Rate 20 21 Blood Pressure 87/56 L Pulse Oximetry 100 100 Oxygen Delivery Method Oxygen Flow Rate Fraction of Inspired Oxygen 05/14/25 04:30 05/14/25 04:50 05/14/25 05:00 Temperature Pulse Rate 99 H 104 H Respiratory Rate 20 26 H Blood Pressure Pulse Oximetry 100 96 Oxygen Delivery Method Humidification Trach Collar Aerosol Mask Oxygen Flow Rate Fraction of Inspired Oxygen 28 Fraction of Inspired Oxygen 28 SaO2/FiO2 Ratio 342 Oxygen Delivery Method Aerosol Mask Oxygen Flow Rate 8 GI Other: ABD: incision CDI, YOKASTA with serous drainage, no grimace with palpation Objective Labs 05/12/25 05:30 05/14/25 05:00 Labs: Laboratory Results - last 24 hr 05/13/25 05/13/25 05/13/25 08:30 12:31 18:48 Sodium Potassium Chloride Carbon Dioxide BUN Creatinine Estimated GFR BUN/Creatinine Ratio Glucose POC Whole Bld Glucose 98 75 Calcium Magnesium Vancomycin Peak 36.3 05/14/25 05:00 Sodium 136 L Potassium 3.7 Chloride 112 H Carbon Dioxide 21 L BUN 16 Creatinine 0.33 L Estimated GFR > 60 BUN/Creatinine Ratio 48.5 H Glucose 84 POC Whole Bld Glucose Calcium 7.6 L Magnesium 1.6 Vancomycin Peak [facility] History Excessive cerumen in both ear canals Chronic anticoagulation Iron deficiency anemia History of pulmonary embolism Status post radiation therapy Chronic anticoagulation Tracheostomy in place Sacral decubitus ulcer, stage III Protein calorie malnutrition Hyponatremia Dysphagia Recurrent aspiration pneumonia Depression, major, recurrent Jejunostomy tube present Influenza A Anemia Pneumonia 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 Father No problems noted. Social History marital status: unmarried,single details: Lives independantly with part-time caregivers household members: none lives independently: Yes occupational status: disabled Smoking Status: Never smoker alcohol intake: never substance use type: marijuana Assessment & Plan Assessment and plan (1) Encounter for feeding tube placement: Status: Acute (2) PEG tube malfunction: Status: Acute Plan POD#5 J-tube Tolerating TF at 30cc/hr, advance to 40cc/hr +bowel function D/C YOKASTA today Appreciate Dr. Shore consultation, Stage 3 decubitus, plan wound care and f/u outpatient Time-Based Coding :: [TOTAL MINUTES] spent with patient and on the chart (including review of chart, obtaining history, exam, reviewing outside data, placing orders, documenting exam and treatment plan, and counseling patient) on [DATE]. PROFEE Reprographics Technician Document charge(s): Yes Charge Codes Subsequent inpatient/observation care: [id number]
--- NOTE | 2025-05-14 07:55 | P.PN_ITS ---
Subjective Subjective Date Patient Seen: 05/14/25 Interval history: Chief complaint: Sepsis secondary to a gastric perforation and leak into peritoneum of gastric contents around gastrostomy tube History of present illness: 05/09: Patient is seen at the request of Dr. Naqvi of surgery. Apparently the patient arrived last night with a question of PEG tube dysfunction. A PEG tube was replaced in the ED but was not functioning as expected after placement. The patient was admitted by surgery to the [facility] and this morning taken to the OR for investigation. Prior to this, I was alerted of the patient's clinical status and I did initiate lab tests, blood cultures, IV fluids, and IV cefepime for possible sepsis. [place] [id number] with a normal lactic acid. In the OR, the PEG to appeared to be in a false passage. The gastrostomy channel was closed and a J-tube was placed. The peritoneum was washed out. It did not appear grossly that tube feeds were in the peritoneum and the patient was subsequently brought to the ICU where he was on norepinephrine through a peripheral IV and appeared to be very dry with no urine output after 2 L of fluids in the OR. The patient has a noncuffed tracheostomy in place, and severe skin injury to the sacrum including 1 area with possible induration and a wound which is about 2-3 cm in diameter. See media photos. General surgery was alerted to the condition of the back at this time. Micro was reviewed this patient has had MRSA and Pseudomonas in sputum in the past. He was at high risk for MDR infections. He was awake, and moaning, but unable to follow commands or track. 05/10: Patient is minimally responsive white count 08006 92% neutrophils VBG 7.25 pCO2 46 PO2 37 sodium 139 potassium 3.5 chloride 110 CO2 19 BUN 19 creatinine 0.54 Chest x-ray: There is a tracheostomy tube seen in place. Lungs and pleura: Significant volume loss is seen on the left side. There is left-sided interstitial prominence. There is blunting of the left costophrenic angle. 05/11: Patient is receiving chest physiotherapy there is improvement in the lung sounds on the left patient is more animated and regards with eyes 05/12: Secretions clearing with chest physiotherapy patient appears alert is nonverbal regards with eyes only 05/13: Patient is more alert good response to chest physiotherapy resumed tube feeding and is tolerating per J-tube sputum cultures came back: Sputum Culture 1. Staphylococcus aureus M.I.C. RX --------- --- * Daptomycin 0.5 S * Vancomycin 1 S * Ciprofloxacin >=8 R * Clindamycin 0.25 S * Doxycycline <=0.5 S * Erythromycin <=0.25 S * Gentamicin <=0.5 S * Levofloxacin 4 R * Linezolid 2 S * Moxifloxacin 2 R * Oxacillin Ap 0.5 S * Rifampin <=0.5 S * Tetracycline <=1 S * Trimethoprim/Sulfamethoxazole <=10 S 2. Pseudomonas aeruginosa M.I.C. RX --------- --- * Cefepime 2 S * Ceftazidime 2 S * Ciprofloxacin 0.12 S * Levofloxacin 0.5 S * Meropenem 1 S * Piperacillin/Tazobactam 8 S 3. Citrobacter freundii M.I.C. RX --------- --- * Amoxicillin/Clavulanate R * Aztreonam <=1 S * Cefepime E-test 0.064 S * Cefuroxime R * Ciprofloxacin <=0.06 S * Ertapenem <=0.12 S * Gentamicin <=1 S * Levofloxacin <=0.12 S * Meropenem <=0.25 S * Tetracycline <=1 S Review of systems: Incapable due to cognitive limitations Physical examination: Cachectic, pale and chronically ill in appearance . Asleep and does not respond to voice or touch. Trach mask in place Very weak respiratory effort CTAB Heart sounds distant, RRR without murmur His abdomen is flat, and non tender to palpation. A J-tube is in place. Extremities are atrophied and there is puffiness of the hands Large area of skin pressure injury over the sacrum and lower back as well as a wound in the right paraspinal area above the pelvis. See media photos for this. Not visualized today. Padded boots on heels. Electric Wheelchair in the room. Assessment and plan: Peg tube in false lumen, removed, Closure of gastrostomy track and placement of J-tube, active. * Appreciate surgery expertise * Tube feeding now at stable maintenance rate Septic shock with source unclear, differential of lung with history of MRSA and Pseudomonas versus peritonitis verses back infected wounds. Active. * Blood Cultures negative * Continue cefepime for respiratory Pseudomonas/MSSA/Citrobacter * vancomycin for MSSA in sputum and for possible wound infection Severe soft tissue injury of sacrum with area of induration and a wound of 2 cm in diameter, active. * Wound care team: Stage III pressure ulcer over left iliac crest, no sign of infection. Plan to start daily wet to wet dressing changes with Dakin's solution with Opti-foam outer dressing to help with pressure offloading. Continue pressure offloading with air mattress, turn frequently, and start protein supplementation. Follow up at wound center after discharge for further evaluation and treatment. * Diflucan 4 days 200 mg (until 05/16) Chronic uncuffed tracheostomy, active. * Trach management Severe volume depletion, active. * Continue TF and stop IVF Pseudobulbar palsy, and spastic left hemiparesis with long-term tracheostomy and history of recurrent aspiration pneumonia. 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 * Prognosis is guarded. * Discussed with PCP, Dr. Marshall. Disposition: * Attending is Dr. Naqvi surgery * ICU status * Disposition likely to be return to home with mother continuing as dough scaler and mixer. Exam Vital Signs (past 8 hours): - 05/14/25 00:00 05/14/25 00:00 05/14/25 00:00 Temperature Pulse Rate 100 H 100 H Respiratory Rate 23 23 Blood Pressure 77/55 L Pulse Oximetry 99 99 Oxygen Delivery Method Oxygen Flow Rate Fraction of Inspired Oxygen 05/14/25 00:03 05/14/25 00:03 05/14/25 00:15 Temperature Pulse Rate 101 H 101 H Respiratory Rate 24 23 Blood Pressure 95/64 Pulse Oximetry 99 99 Oxygen Delivery Method Oxygen Flow Rate Fraction of Inspired Oxygen 05/14/25 00:30 05/14/25 00:45 05/14/25 01:00 Temperature Pulse Rate 100 H 100 H 101 H Respiratory Rate 22 22 22 Blood Pressure Pulse Oximetry 100 99 98 Oxygen Delivery Method Oxygen Flow Rate Fraction of Inspired Oxygen 05/14/25 01:00 05/14/25 01:15 05/14/25 01:30 Temperature Pulse Rate 101 H 100 H Respiratory Rate 23 22 Blood Pressure 84/59 L Pulse Oximetry 99 98 Oxygen Delivery Method Oxygen Flow Rate Fraction of Inspired Oxygen 05/14/25 01:45 05/14/25 02:00 05/14/25 02:00 Temperature Pulse Rate 102 H 101 H Respiratory Rate 23 21 Blood Pressure 83/59 L Pulse Oximetry 98 98 Oxygen Delivery Method Oxygen Flow Rate Fraction of Inspired Oxygen 05/14/25 02:11 05/14/25 02:15 05/14/25 02:30 Temperature Pulse Rate 99 H 98 H 99 H Respiratory Rate 22 21 21 Blood Pressure Pulse Oximetry 99 99 99 Oxygen Delivery Method Humidification Trach Collar Oxygen Flow Rate Fraction of Inspired Oxygen 28 05/14/25 02:45 05/14/25 03:00 05/14/25 03:00 Temperature 97 F L Pulse Rate 100 H 100 H Respiratory Rate 22 21 Blood Pressure 81/59 L Pulse Oximetry 100 99 Oxygen Delivery Method Oxygen Flow Rate 8 Fraction of Inspired Oxygen 05/14/25 03:15 05/14/25 03:30 05/14/25 03:45 Temperature Pulse Rate 100 H 100 H 99 H Respiratory Rate 20 22 20 Blood Pressure Pulse Oximetry 100 100 100 Oxygen Delivery Method Oxygen Flow Rate Fraction of Inspired Oxygen 05/14/25 04:00 05/14/25 04:00 05/14/25 04:02 Temperature Pulse Rate 99 H 99 H Respiratory Rate 20 20 Blood Pressure 77/54 L Pulse Oximetry 100 100 Oxygen Delivery Method Oxygen Flow Rate Fraction of Inspired Oxygen 05/14/25 04:02 05/14/25 04:15 05/14/25 04:30 Temperature Pulse Rate 98 H 99 H Respiratory Rate 21 20 Blood Pressure 87/56 L Pulse Oximetry 100 100 Oxygen Delivery Method Oxygen Flow Rate Fraction of Inspired Oxygen 05/14/25 04:50 05/14/25 05:00 Temperature Pulse Rate 104 H Respiratory Rate 26 H Blood Pressure Pulse Oximetry 96 Oxygen Delivery Method Humidification Trach Collar Aerosol Mask Oxygen Flow Rate Fraction of Inspired Oxygen 28 Fraction of Inspired Oxygen 28 SaO2/FiO2 Ratio 342 Oxygen Delivery Method Aerosol Mask Oxygen Flow Rate 8 Objective Labs 05/14/25 05:00 05/14/25 05:00 Labs: Laboratory Results - last 24 hr 05/13/25 05/13/25 05/13/25 08:30 12:31 18:48 Sodium Potassium Chloride Carbon Dioxide BUN Creatinine Estimated GFR BUN/Creatinine Ratio Glucose POC Whole Bld Glucose 98 75 Calcium Magnesium Vancomycin Peak 36.3 05/14/25 05:00 Sodium 136 L Potassium 3.7 Chloride 112 H Carbon Dioxide 21 L BUN 16 Creatinine 0.33 L Estimated GFR > 60 BUN/Creatinine Ratio 48.5 H Glucose 84 POC Whole Bld Glucose Calcium 7.6 L Magnesium 1.6 Vancomycin Peak PFSH Medical History Excessive cerumen in both ear canals Chronic anticoagulation Iron deficiency anemia History of pulmonary embolism Status post radiation therapy Chronic anticoagulation Tracheostomy in place Sacral decubitus ulcer, stage III Protein calorie malnutrition Hyponatremia Dysphagia Recurrent aspiration pneumonia Depression, major, recurrent Jejunostomy tube present Influenza A Anemia Pneumonia 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 Father No problems noted. Social History marital status: unmarried,single details: Lives independantly with part-time caregivers household members: none lives independently: Yes occupational status: disabled Smoking Status: Never smoker alcohol intake: never substance use type: marijuana Assessment & Plan Time-Based Coding :: [TOTAL MINUTES] spent with patient and on the chart (including review of chart, obtaining history, exam, reviewing outside data, placing orders, documenting exam and treatment plan, and counseling patient) on [DATE].
[2025-05-14 08:12] LABS: Add Manual Diff / Slide Review NO; Hematocrit 21.9 % (41-53); Hemoglobin 7.0 g/dL (13.5-17.5); Lymphocytes Absolute Auto 700 /uL (1100-4500); Mean Corpuscular HGB Conc 32.1 % (30-36); Mean Corpuscular Hemoglobin 25.1 PG (26-34); Mean Corpuscular Volume 78.4 fL (80-100); Platelet Count 299 X10^3/uL (150-400)
[2025-05-14] MEDS: BACLOFEN 10 MG TABLET 5 MG TUBE (09:17)
[2025-05-14] MEDS: APIXABAN 5 MG TABLET TUBE (09:17)
[2025-05-14] MEDS: NEOMYCIN/POLYMYXIN/BACITRA UD OINT 1 EACH TOP ×2 (09:17→21:30)
[2025-05-14] MEDS: ALBUTEROL/IPRATROPIUM 3 ML AMPUL INH ×2 (09:25→19:36)
[2025-05-14] MEDS: CEFEPIME 2 GM in SODIUM CHLORIDE 0.9% 100 ML IV ×2 (09:33→20:09)
[2025-05-14] MEDS: FLUCONAZOLE 100 MG TABLET 200 MG PO (09:33)
[2025-05-14] MEDS: SODIUM HYPOCHLORITE 473 ML SOLUTION TOP (09:34)
[2025-05-14] MEDS: SODIUM CHLORIDE 0.9% FLUSH 10 ML IV ×2 (09:34→20:11)
[2025-05-14] MEDS: MAGNESIUM SULFATE 2 GM/50 ML PIGGYBACK IV (10:54)
--- NOTE | 2025-05-14 12:47 | CM.DPC ---
Addendum entered by ARIC Arellano 05/14/25 12:51: Correction, [facility] will be providing pt's OP wound care. They will call his mom today to schedule. Original Note: DCP Cont. Reviewed EMR and team rounds for pt's medical status and updates. All recommendations for pt's ongoing wound consult needs are in for OP Home Health and woundcare needs. Called pt's mom, she will be transporting him home once we know what time he can be ready, tentatively for 05/15. Sent referral to [facility].
--- NOTE | 2025-05-14 13:00 | PC.NURSE ---
0900 YOKSATA D/C'D. WOUND CARE DONE PER ORDER.
[2025-05-14 13:28] LABS: Add Manual Diff / Slide Review NO; Hematocrit 21.9 % (41-53); Hemoglobin 7.0 g/dL (13.5-17.5); Lymphocytes Absolute Auto 1000 /uL (1100-4500); Mean Corpuscular HGB Conc 32.1 % (30-36); Mean Corpuscular Hemoglobin 25.1 PG (26-34); Mean Corpuscular Volume 78.2 fL (80-100); Platelet Count 285 X10^3/uL (150-400)
[2025-05-14] MEDS: PANTOPRAZOLE 40 MG VIAL IV (14:39)
--- NOTE | 2025-05-14 15:30 | DIET.PN1 ---
Dietary Progress Note Assessment: f/u 2 Liquid BMs this morning, but none since delivery of banatrol this afternoon per RN. Will continue to monitor. IVF d/c this morning. Meeting remaining fluid needs via feeds and flushes with banatrol and free water flushes today, but will adjust free water flush amount tomorrow to meet needs without IVF. Ht: 174.73 cm Wt: 77.111 kg BMI: 25.2 Last BM: 05/14/25 (05/14/25 12:58) MNA: Krishan Score: 9 Diet: 05/09/25 03:54 NPO Diet Diet Modifications: NPO Type: Strict 05/10/25 Lunch Tube Feeding Diet Diet Modifications: TF Supplement type: Pivot 1.5 saurav TF mode of delivery: Continuous Starting flow rate mL/hr: 40 Flow rate goal mL/hr: 40 Titration Schedule to reach Goal Rate: - Max total daily volume in mL: 1,600 Free fluid: 60 Free Water Frequency: Q4H Comment: Banatrol packet (.38 oz net weight) TID to 4x/day Nutrition Type of Feeding Tube Jejunostomy 05/14/25 12:00 Type of Feeding Tube Jejunostomy 05/14/25 08:00 Type of Feeding Tube Jejunostomy 05/13/25 20:15 Type of Feeding Tube Jejunostomy 05/13/25 05:30 Labs: RBC 2.80 X10^6/uL (4.5-5.9) L 05/14/25 13:18 Hgb 7.0 g/dL (13.5-17.5) L 05/14/25 13:18 Hct 21.9 % (41-53) L 05/14/25 13:18 Creatinine 0.33 mg/dL (0.66-1.25) L 05/14/25 05:00 Lactate 1.2 mmol/L (0.7-2.1) 05/10/25 10:00 Electronically Signed by: Flakita Hopkins 05/14/25 15:30 Clinical Dietitian [address] [id number]
--- NOTE | 2025-05-14 18:00 | PC.NURSE ---
Addendum entered by Osiel Spangler RN 05/14/25 18:24: PT TOLERATING TRACH COLLAR ON ROOM AIR. REQUIRING FREQUENT TRACHEAL SUCTION. MINIMAL O2 DESATURATION WITH SUCTIONING. WOUND CARE DONE PER ORDER. YOKASTA DRAIN D/C'D. PT WITH SOFT BPS THROUGHOUT SHIFT. NO FEVERS. 1 UNIT PRBCS INFUSED. BP IMPROVED WITH BLOOD ADMIN. 2 DARK LOOSE BMS. GUAIAC STOOL TEST POSITIVE. PLAN FOR EGD/ COLONOSCOPY TOMORROW WITH DR LOBO. SERIAL H/H ORDERED STARTING AT 2100. PT TOLERATING TUBE FEEDING AT 40 ML/HR. RESIDUALS NOT ASSESSED. PER CHALK EXTRUDING MACHINE OPERATOR, RESIDUAL MEASUREMENT NOT ACCURATE WITH J TUBE. IV ANTIBIOTICS CONTINUED. CARE ONGOING. Original Note: [address] POLANCO AWARE OF PT WITH POSITIVE GUAIAC STOOL TEST. MD STATES TO ORDER Q6 H/H X4 STARTING AT 2100 AND MAKE PATIENT NPO AT MIDNIGHT. 1744 DR LBOO CALLED REGARDING PATIENT. PER MD, PLACE ORDER FOR GO-LIGHTLY THROUGH J TUBE STARTING 05/15 AT MIDNIGHT. STOP IF PATIENT NOT TOLERATING VOLUME OR HAVING INCREASE IN WATERY BMS. PHARMACY/ DR POLANCO MADE AWARE OF CONVERSATION.
[2025-05-14] MEDS: SERTRALINE 50 MG TABLET 200 MG TUBE (20:10)
[2025-05-14 21:19] LABS: Hematocrit 26.1 % (41-53); Hemoglobin 8.4 g/dL (13.5-17.5)
[2025-05-15] VITALS (143 sets, daily range): BP systolic 65–127; BP diastolic 44–92; PULSE 67–90; RESP 0–24; TEMP 36.1–36.6; O2SAT 85–100
[2025-05-15] MEDS: PEG3350/SOD SULF,BICARB,CL/KCL 4,000 ML SOLUTION 2000 ML PO (00:45)
[2025-05-15] MEDS: NOREPINEPHRINE BITARTRATE/D5W 4 MG/250 ML PLAST..BAG 14.458 MG IV (00:59)
[2025-05-15] MEDS: DEXTROSE 50 % IN WATER 25 GM/50 ML SYRINGE IV (01:20)
--- NOTE | 2025-05-15 01:25 | PC.NURSE ---
Addendum entered by Abeba Jain RN 05/15/25 01:52: BG now 134. D5 IV fluids ordered and started. Original Note: Patient became hypotensive after bed change. MAPs reading 55-60s and slight decrease in HR. Contacted housing relocation provider and norepinephrine was ordered. Levo started. Patient found to have BG of 61. Contacted provider, D50 IVP ordered and given. Patient vitals now reading BP 91/64 (MAP 73), HR 87, Spo2 100, RR 16. BP currently recycling ever 10 minutes. Patient is now resting comfortably in bed.
[2025-05-15] MEDS: DEXTROSE 5%-0.9% NS 1,000 ML 84 ML IV ×2 (01:54→12:31)
[2025-05-15] MEDS: ACETAMINOPHEN IV 1,000 MG/100 ML VIAL 400 MG IV (02:35)
[2025-05-15] MEDS: ALBUTEROL/IPRATROPIUM 3 ML AMPUL INH ×2 (07:44→20:14)
--- NOTE | 2025-05-15 07:56 | P.PN_ITS ---
Subjective Subjective Date Patient Seen: 05/15/25 Interval history: Chief complaint: Sepsis secondary to a gastric perforation and leak into peritoneum of gastric contents around gastrostomy tube History of present illness: 05/09: Patient is seen at the request of Dr. Naqvi of surgery. Apparently the patient arrived last night with a question of PEG tube dysfunction. A PEG tube was replaced in the ED but was not functioning as expected after placement. The patient was admitted by surgery to the [facility] and this morning taken to the OR for investigation. Prior to this, I was alerted of the patient's clinical status and I did initiate lab tests, blood cultures, IV fluids, and IV cefepime for possible sepsis. [place] [address] with a normal lactic acid. In the OR, the PEG to appeared to be in a false passage. The gastrostomy channel was closed and a J-tube was placed. The peritoneum was washed out. It did not appear grossly that tube feeds were in the peritoneum and the patient was subsequently brought to the ICU where he was on norepinephrine through a peripheral IV and appeared to be very dry with no urine output after 2 L of fluids in the OR. The patient has a noncuffed tracheostomy in place, and severe skin injury to the sacrum including 1 area with possible induration and a wound which is about 2-3 cm in diameter. See media photos. General surgery was alerted to the condition of the back at this time. Micro was reviewed this patient has had MRSA and Pseudomonas in sputum in the past. He was at high risk for MDR infections. He was awake, and moaning, but unable to follow commands or track. 05/10: Patient is minimally responsive white count 36370 92% neutrophils VBG 7.25 pCO2 46 PO2 37 sodium 139 potassium 3.5 chloride 110 CO2 19 BUN 19 creatinine 0.54 Chest x-ray: There is a tracheostomy tube seen in place. Lungs and pleura: Significant volume loss is seen on the left side. There is left-sided interstitial prominence. There is blunting of the left costophrenic angle. 05/11: Patient is receiving chest physiotherapy there is improvement in the lung sounds on the left patient is more animated and regards with eyes 05/12: Secretions clearing with chest physiotherapy patient appears alert is nonverbal regards with eyes only 05/13: Patient is more alert good response to chest physiotherapy resumed tube feeding and is tolerating per J-tube sputum cultures came back: 05/15: Experienced significant GI bleed yesterday with hemoglobin of 7.0, up to 8.6 with unit blood transfusion. This morning's hemoglobin is blocked by poor access so a PICC line is being placed. EGD and colonoscopy were planned by General surgery but overnight the patient experienced hypotension into the 70s systolic so is now on low-dose Levophed. Also the Colyte prep through the J- tube has not produced significant rectal output yet. The white blood count is pending. He remains on a D5 infusion after blood sugars dropped in the 60s overnight. He is on room air through his trach mask. He remains on cefepime and vancomycin. Sputum Culture 1. Staphylococcus aureus M.I.C. RX --------- --- * Daptomycin 0.5 S * Vancomycin 1 S * Ciprofloxacin >=8 R * Clindamycin 0.25 S * Doxycycline <=0.5 S * Erythromycin <=0.25 S * Gentamicin <=0.5 S * Levofloxacin 4 R * Linezolid 2 S * Moxifloxacin 2 R * Oxacillin Ap 0.5 S * Rifampin <=0.5 S * Tetracycline <=1 S * Trimethoprim/Sulfamethoxazole <=10 S 2. Pseudomonas aeruginosa M.I.C. RX --------- --- * Cefepime 2 S * Ceftazidime 2 S * Ciprofloxacin 0.12 S * Levofloxacin 0.5 S * Meropenem 1 S * Piperacillin/Tazobactam 8 S 3. Citrobacter freundii M.I.C. RX --------- --- * Amoxicillin/Clavulanate R * Aztreonam <=1 S * Cefepime E-test 0.064 S * Cefuroxime R * Ciprofloxacin <=0.06 S * Ertapenem <=0.12 S * Gentamicin <=1 S * Levofloxacin <=0.12 S * Meropenem <=0.25 S * Tetracycline <=1 S Review of systems: Incapable due to cognitive limitations Physical examination: Cachectic, pale and chronically ill in appearance . Asleep and does not respond to voice or touch. Trach mask in place Very weak respiratory effort CTAB Heart sounds distant, RRR without murmur His abdomen is flat, and non tender to palpation. A J-tube is in place. Extremities are atrophied and there is puffiness of the hands Large area of skin pressure injury over the sacrum and lower back as well as a wound in the right paraspinal area above the pelvis. See media photos for this. Not visualized today. Padded boots on heels. Electric Wheelchair in the room. Assessment and plan: Peg tube in false lumen, removed, Closure of gastrostomy track and placement of J-tube, active. * Appreciate surgery expertise * Tube feeding reached maintenance rate on 05/14 before stopped due to pending EGD/Colonoscopy GI Bleed, not present on admission, Active -Hgb dropped to 7.0 on 05/14. Up to 8.6 with 1 unit PRBC. Follow. -IV Pantoprazole, stopped Eliquis. -EGD/Colonoscopy pending Septic shock with source unclear, differential of lung with history of MRSA and Pseudomonas versus peritonitis verses back infected wounds. Active. * Blood Cultures negative * Continue cefepime for respiratory Pseudomonas/MSSA/Citrobacter * vancomycin for MSSA in sputum and for possible wound infection * BP dropped again overnight 05/14, started on levophed and IV D5NS Severe soft tissue injury of sacrum with area of induration and a wound of 2 cm in diameter, active. * Wound care team: Stage III pressure ulcer over left iliac crest, no sign of infection. Plan to start daily wet to wet dressing changes with Dakin's solution with Opti-foam outer dressing to help with pressure offloading. Continue pressure offloading with air mattress, turn frequently, and start protein supplementation. Follow up at wound center after discharge for further evaluation and treatment. * Diflucan 4 days 200 mg (until 05/16) Chronic uncuffed tracheostomy, active. * Trach management Severe volume depletion, active. * Switched back to IVF from TF when made NPO for EGD/Colonoscopy on 05/14 Pseudobulbar palsy, and spastic left hemiparesis with long-term tracheostomy and history of recurrent aspiration pneumonia. 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 * Prognosis is guarded. * Discussed with PCP, Dr. Marshall. Disposition: * Attending is Dr. Naqvi surgery * ICU status * Disposition likely to be SNF rehab. Exam Vital Signs (past 8 hours): - 05/15/25 00:00 05/15/25 00:00 05/15/25 00:00 Temperature Pulse Rate 87 Respiratory Rate 18 Blood Pressure 81/54 L Pulse Oximetry 100 Oxygen Delivery Method Aerosol Mask Fraction of Inspired Oxygen 05/15/25 00:14 05/15/25 00:14 05/15/25 00:15 Temperature Pulse Rate 90 89 Respiratory Rate 19 20 Blood Pressure 87/61 L Pulse Oximetry 99 96 Oxygen Delivery Method Fraction of Inspired Oxygen 05/15/25 00:30 05/15/25 00:45 05/15/25 00:45 Temperature Pulse Rate 83 82 Respiratory Rate 19 18 Blood Pressure 65/44 L Pulse Oximetry 99 100 Oxygen Delivery Method Fraction of Inspired Oxygen 05/15/25 00:46 05/15/25 00:46 05/15/25 00:49 Temperature Pulse Rate 82 83 Respiratory Rate 20 18 Blood Pressure 72/50 L Pulse Oximetry 100 100 Oxygen Delivery Method Fraction of Inspired Oxygen 05/15/25 00:49 05/15/25 00:56 05/15/25 00:56 Temperature 97.6 F Pulse Rate 84 Respiratory Rate 17 Blood Pressure 74/49 L 73/52 L Pulse Oximetry 100 Oxygen Delivery Method Fraction of Inspired Oxygen 05/15/25 00:57 05/15/25 00:57 05/15/25 01:00 Temperature Pulse Rate 84 Respiratory Rate 17 Blood Pressure 75/51 L 76/50 L Pulse Oximetry 100 Oxygen Delivery Method Fraction of Inspired Oxygen 05/15/25 01:00 05/15/25 01:02 05/15/25 01:02 Temperature Pulse Rate 83 83 Respiratory Rate 17 17 Blood Pressure 74/52 L Pulse Oximetry 100 100 Oxygen Delivery Method Fraction of Inspired Oxygen 05/15/25 01:05 05/15/25 01:05 05/15/25 01:07 Temperature Pulse Rate 83 Respiratory Rate 17 Blood Pressure 76/52 L 79/52 L Pulse Oximetry 100 Oxygen Delivery Method Fraction of Inspired Oxygen 05/15/25 01:07 05/15/25 01:10 05/15/25 01:10 Temperature Pulse Rate 80 80 Respiratory Rate 17 17 Blood Pressure 84/56 L Pulse Oximetry 100 100 Oxygen Delivery Method Fraction of Inspired Oxygen 05/15/25 01:13 05/15/25 01:13 05/15/25 01:14 Temperature Pulse Rate 84 82 Respiratory Rate 21 Blood Pressure 101/72 Pulse Oximetry 100 100 Oxygen Delivery Method Humidification Trach Collar Fraction of Inspired Oxygen 05/15/25 01:15 05/15/25 01:15 05/15/25 01:17 Temperature Pulse Rate 82 Respiratory Rate 20 Blood Pressure 92/64 89/60 L Pulse Oximetry 100 Oxygen Delivery Method Fraction of Inspired Oxygen 05/15/25 01:17 05/15/25 01:20 05/15/25 01:20 Temperature Pulse Rate 82 81 Respiratory Rate 19 19 Blood Pressure 86/60 L Pulse Oximetry 100 100 Oxygen Delivery Method Fraction of Inspired Oxygen 05/15/25 01:21 05/15/25 01:22 05/15/25 01:22 Temperature Pulse Rate 80 80 Respiratory Rate 18 18 Blood Pressure 86/58 L Pulse Oximetry 100 100 Oxygen Delivery Method Fraction of Inspired Oxygen 05/15/25 01:25 05/15/25 01:25 05/15/25 01:27 Temperature Pulse Rate 90 Respiratory Rate 17 Blood Pressure 98/65 91/64 Pulse Oximetry 100 Oxygen Delivery Method Fraction of Inspired Oxygen 05/15/25 01:27 05/15/25 01:30 05/15/25 01:30 Temperature Pulse Rate 90 87 Respiratory Rate 19 19 Blood Pressure 91/61 Pulse Oximetry 100 100 Oxygen Delivery Method Fraction of Inspired Oxygen 05/15/25 01:40 05/15/25 01:40 05/15/25 01:45 Temperature Pulse Rate 80 79 Respiratory Rate 19 18 Blood Pressure 84/55 L Pulse Oximetry 100 100 Oxygen Delivery Method Fraction of Inspired Oxygen 05/15/25 01:50 05/15/25 01:50 05/15/25 02:00 Temperature Pulse Rate 79 79 Respiratory Rate 18 18 Blood Pressure 85/56 L Pulse Oximetry 100 100 Oxygen Delivery Method Fraction of Inspired Oxygen 05/15/25 02:00 05/15/25 02:10 05/15/25 02:10 Temperature Pulse Rate 83 Respiratory Rate 19 Blood Pressure 85/57 L 87/64 L Pulse Oximetry 100 Oxygen Delivery Method Fraction of Inspired Oxygen 05/15/25 02:15 05/15/25 02:20 05/15/25 02:20 Temperature Pulse Rate 81 81 Respiratory Rate 18 18 Blood Pressure 90/62 Pulse Oximetry 100 100 Oxygen Delivery Method Fraction of Inspired Oxygen 05/15/25 02:30 05/15/25 02:30 05/15/25 02:40 Temperature Pulse Rate 82 Respiratory Rate 19 Blood Pressure 94/70 90/64 Pulse Oximetry 100 Oxygen Delivery Method Fraction of Inspired Oxygen 05/15/25 02:40 05/15/25 02:45 05/15/25 02:50 Temperature Pulse Rate 80 87 79 Respiratory Rate 20 21 20 Blood Pressure Pulse Oximetry 100 100 100 Oxygen Delivery Method Fraction of Inspired Oxygen 05/15/25 02:50 05/15/25 03:00 05/15/25 03:00 Temperature Pulse Rate 76 Respiratory Rate 18 Blood Pressure 90/65 87/60 L Pulse Oximetry 100 Oxygen Delivery Method Fraction of Inspired Oxygen 05/15/25 03:10 05/15/25 03:10 05/15/25 03:15 Temperature Pulse Rate 77 76 Respiratory Rate 18 18 Blood Pressure 89/62 L Pulse Oximetry 100 100 Oxygen Delivery Method Fraction of Inspired Oxygen 05/15/25 03:20 05/15/25 03:20 05/15/25 03:30 Temperature Pulse Rate 82 74 Respiratory Rate 21 19 Blood Pressure 94/67 Pulse Oximetry 100 100 Oxygen Delivery Method Fraction of Inspired Oxygen 05/15/25 03:30 05/15/25 03:40 05/15/25 03:40 Temperature Pulse Rate 79 Respiratory Rate 20 Blood Pressure 86/60 L 82/56 L Pulse Oximetry 100 Oxygen Delivery Method Fraction of Inspired Oxygen 05/15/25 03:45 05/15/25 03:50 05/15/25 03:50 Temperature Pulse Rate 77 76 Respiratory Rate 18 19 Blood Pressure 80/52 L Pulse Oximetry 100 100 Oxygen Delivery Method Fraction of Inspired Oxygen 05/15/25 03:59 05/15/25 04:00 05/15/25 04:00 Temperature Pulse Rate 76 Respiratory Rate 10 L Blood Pressure 96/67 Pulse Oximetry 100 Oxygen Delivery Method Aerosol Mask Fraction of Inspired Oxygen 05/15/25 04:00 05/15/25 04:10 05/15/25 04:10 Temperature Pulse Rate 76 77 Respiratory Rate 19 18 Blood Pressure 90/65 Pulse Oximetry 100 100 Oxygen Delivery Method Fraction of Inspired Oxygen 05/15/25 04:15 05/15/25 04:20 05/15/25 04:20 Temperature Pulse Rate 82 83 Respiratory Rate 0 L 21 Blood Pressure 127/88 Pulse Oximetry 98 93 Oxygen Delivery Method Fraction of Inspired Oxygen 05/15/25 04:30 05/15/25 04:30 05/15/25 04:30 Temperature Pulse Rate 81 80 Respiratory Rate 21 20 Blood Pressure 96/70 Pulse Oximetry 98 98 Oxygen Delivery Method Humidification Trach Collar Fraction of Inspired Oxygen 21 05/15/25 04:40 05/15/25 04:40 05/15/25 04:45 Temperature Pulse Rate 77 78 Respiratory Rate 17 18 Blood Pressure 91/64 Pulse Oximetry 99 99 Oxygen Delivery Method Fraction of Inspired Oxygen 05/15/25 04:54 05/15/25 04:54 05/15/25 05:00 Temperature Pulse Rate 79 79 Respiratory Rate 20 18 Blood Pressure 95/65 Pulse Oximetry 100 100 Oxygen Delivery Method Fraction of Inspired Oxygen 05/15/25 05:15 05/15/25 05:30 05/15/25 05:45 Temperature Pulse Rate 76 79 79 Respiratory Rate 19 18 19 Blood Pressure Pulse Oximetry 100 100 100 Oxygen Delivery Method Fraction of Inspired Oxygen 05/15/25 05:59 05/15/25 05:59 05/15/25 06:00 Temperature Pulse Rate 77 Respiratory Rate 19 Blood Pressure 93/70 91/65 Pulse Oximetry 100 Oxygen Delivery Method Fraction of Inspired Oxygen 05/15/25 06:00 05/15/25 07:46 Temperature Pulse Rate 77 75 Respiratory Rate 19 20 Blood Pressure Pulse Oximetry 100 100 Oxygen Delivery Method Humidification Trach Collar Fraction of Inspired Oxygen 21 Fraction of Inspired Oxygen 21 SaO2/FiO2 Ratio 476 Oxygen Delivery Method Humidification,Trach Collar Oxygen Flow Rate 8 Objective Labs 05/14/25 21:00 05/14/25 05:00 Labs: Laboratory Results - last 24 hr 05/14/25 05/14/25 05/14/25 00:52 05:00 12:10 WBC 8.6 RBC 2.79 L Hgb 7.0 L Hct 21.9 L MCV 78.4 L MCH 25.1 L MCHC 32.1 RDW 18.2 H Plt Count 299 Neut % (Auto) 71.7 Lymph % (Auto) 8.5 L [place] % (Auto) 8.6 Eos % (Auto) 7.8 H Baso % (Auto) 3.4 H Neut # (Auto) 6200 Lymph # (Auto) 700 L [place] # (Auto) 700 Eos # (Auto) 700 H Baso # (Auto) 300 H POC Whole Bld Glucose 108 H 82 Blood Type Antibody Screen Crossmatch 05/14/25 05/14/25 05/14/25 13:18 14:15 18:50 WBC 8.3 RBC 2.80 L Hgb 7.0 L Hct 21.9 L MCV 78.2 L MCH 25.1 L MCHC 32.1 RDW 17.8 H Plt Count 285 Neut % (Auto) 70.9 Lymph % (Auto) 12.4 L [place] % (Auto) 6.2 Eos % (Auto) 9.1 H Baso % (Auto) 1.4 Neut # (Auto) 5900 Lymph # (Auto) 1000 L [place] # (Auto) 500 Eos # (Auto) 800 H Baso # (Auto) 100 POC Whole Bld Glucose 84 Blood Type B Positive Antibody Screen Negative Crossmatch See Detail 05/14/25 05/15/25 05/15/25 21:00 01:03 01:38 WBC RBC Hgb 8.4 L Hct 26.1 L MCV MCH MCHC RDW Plt Count Neut % (Auto) Lymph % (Auto) [place] % (Auto) Eos % (Auto) Baso % (Auto) Neut # (Auto) Lymph # (Auto) [place] # (Auto) Eos # (Auto) Baso # (Auto) POC Whole Bld Glucose 61 L 134 H Blood Type Antibody Screen Crossmatch 05/15/25 05/15/25 04:00 06:25 WBC RBC Hgb Cancelled Hct Cancelled MCV MCH MCHC RDW Plt Count Neut % (Auto) Lymph % (Auto) [place] % (Auto) Eos % (Auto) Baso % (Auto) Neut # (Auto) Lymph # (Auto) [place] # (Auto) Eos # (Auto) Baso # (Auto) POC Whole Bld Glucose 77 Blood Type Antibody Screen Crossmatch [facility] Medical History Excessive cerumen in both ear canals Chronic anticoagulation Iron deficiency anemia History of pulmonary embolism Status post radiation therapy Chronic anticoagulation Tracheostomy in place Sacral decubitus ulcer, stage III Protein calorie malnutrition Hyponatremia Dysphagia Recurrent aspiration pneumonia Depression, major, recurrent Jejunostomy tube present Influenza A Anemia Pneumonia 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 Father No problems noted. Social History marital status: unmarried,single details: Lives independantly with part-time caregivers household members: none lives independently: Yes occupational status: disabled Smoking Status: Never smoker alcohol intake: never substance use type: marijuana Assessment & Plan Time-Based Coding :: [TOTAL MINUTES] spent with patient and on the chart (including review of chart, obtaining history, exam, reviewing outside data, placing orders, documenting exam and treatment plan, and counseling patient) on [DATE].
[2025-05-15] MEDS: NEOMYCIN/POLYMYXIN/BACITRA UD OINT 1 EACH TOP ×2 (09:30→21:35)
[2025-05-15] MEDS: PANTOPRAZOLE 40 MG VIAL IV (09:31)
[2025-05-15] MEDS: SODIUM HYPOCHLORITE 473 ML SOLUTION TOP (09:41)
[2025-05-15] MEDS: SODIUM CHLORIDE 0.9% FLUSH 10 ML IV ×2 (09:41→21:36)
--- NOTE | 2025-05-15 10:30 | DIET.PN1 ---
Dietary Progress Note Assessment: Per EMR review and healthcare team rounds - pt's TF held starting last night to prep for EGD/colonoscopy d/t drop in Hgb. Pt then became hypotensive, started on Levo overnight. Glucose was low, started on D5 IV. TF remains off today, possible EGD later today. Plan of care ongoing, will continue to follow. Ht: 174.73 cm Wt: 77.111 kg BMI: 25.2 Last BM: 05/14/25 (05/14/25 17:24) MNA: Krishan Score: 9 Diet: 05/15/25 00:01 NPO Diet Diet Modifications: NPO Type: Strict Nutrition Type of Feeding Tube Jejunostomy 05/14/25 16:00 Type of Feeding Tube Jejunostomy 05/14/25 12:00 Type of Feeding Tube Jejunostomy 05/14/25 08:00 Type of Feeding Tube Jejunostomy 05/13/25 20:15 Labs: RBC 2.80 X10^6/uL (4.5-5.9) L 05/14/25 13:18 Hgb Cancelled 05/15/25 04:00 Hct Cancelled 05/15/25 04:00 Creatinine 0.33 mg/dL (0.66-1.25) L 05/14/25 05:00 Lactate 1.2 mmol/L (0.7-2.1) 05/10/25 10:00 Electronically Signed by: Flakita Hopkins 05/15/25 10:30 Clinical Dietitian [address] [address]
[2025-05-15] MEDS: CEFEPIME 2 GM in SODIUM CHLORIDE 0.9% 100 ML IV ×2 (10:59→21:34)
--- NOTE | 2025-05-15 12:10 | DI.RAD.S_ITS ---
PROCEDURE: XR CHEST FOR PICC 1V INDICATIONS: verify PICC placement COMPARISON: [facility], CR, XR CHEST 1V, 05/10/2025, 13:12. FINDINGS: PICC was placed by the intravenous therapy team from the right side. Fluoroscopic spot film demonstrates the tip of PICC projecting to the area of distal right subclavian vein. Marked interval progression of pulmonary findings. Tracheostomy tube in place. The left lung is now completely consolidated. The right lung has extensive pulmonary infiltrate. IMPRESSION: Tip of PICC projects to the area of distal right subclavian vein. Marked interval progression of pulmonary findings. Dictated by: Simón Boyer M.D. on 05/15/2025 at 12:55 Approved by: Simón Boyer M.D. on 05/15/2025 at 12:57
--- NOTE | 2025-05-15 12:24 | CM.DPC ---
DCP Cont. Reviewed EMR and team rounds for pt's medical status and updates. Per Hospitalist, pt had a new GI bleed that started last evening, plan is for him to have an EGD and colonoscopy today, as well as PICC placement. He will likely still remain inpt over the weekend until he's medically stable for home d/c. Called and updated his mom.
[2025-05-15] MEDS: NOREPINEPHRINE BITARTRATE/D5W 4 MG/250 ML PLAST..BAG 17.35 MG IV (12:31)
[2025-05-15 12:36] LABS: Hematocrit 28.2 % (41-53); Hemoglobin 9.3 g/dL (13.5-17.5); Mean Corpuscular HGB Conc 32.9 % (30-36); Mean Corpuscular Hemoglobin 26.0 PG (26-34); Mean Corpuscular Volume 79.2 fL (80-100); Platelet Count 449 X10^3/uL (150-400)
[2025-05-15 12:37] LABS: Add Manual Diff / Slide Review YES
[2025-05-15 12:47] LABS: Glucose 79 mg/dL (70-99); HEMOLYSIS < 15 (0-50)
[2025-05-15 12:53] LABS: Band Neutrophils Percent 7.0 % (3-7); Basophils Percent Manual 1.0 % (0-1); Eosinophils Percent Manual 7.0 % (2-4); Lymphocytes Percent Manual 25.0 % (25-45); Monocytes Percent Manual 6.0 % (2-11); Neutrophils Absolute Manual 6649 /uL (3000-5900); Segmented Neutrophils Percent 54.0 % (38-70); Total Cells Counted 100
[2025-05-15 12:54] LABS: Anisocytosis 1+
[2025-05-15 12:56] LABS: Poikilocytosis 1+
[2025-05-15 12:57] LABS: Blood Urea Nitrogen 10 mg/dL (9-20); Calcium 7.5 mg/dL (8.4-10.2); Carbon Dioxide 22 mmol/L (22-32); Chloride 107 mmol/L (98-107); Estimated Glomerular Filt Rate > 60 mL/min (>60); Magnesium 1.8 mg/dL (1.6-2.3); Potassium 3.6 mmol/L (3.4-5.1); Sodium 134 mmol/L (137-145)
--- NOTE | 2025-05-15 13:36 | PC.NURSE ---
Addendum entered by Osiel Spangler RN 05/15/25 16:41: PT REMAINS LETHARGIC BUT AROUSABLE TO VOICE, SPEAKING VALVE USED FOR COMMUNICATION. C/O PAIN X2. SEE EMAR FOR MEDS GIVEN. TRACH COLLAR ON 21%, LEVO GTT TITRATED TO ACHIEVE MAP OF 65. 98-100% SPO2 THROUGHOUT SHIFT, REQUIRING MINIMAL SUCTIONING. SMALL- MODERATE THICK, WHITE SPUTUM FROM TRACHEAL SUCTION. PICC LINE/MIDLINE PLACED AT 1200. H/H ORDERED Q6H. DAMIÁN RUNNING THROUGH PEG TUBE AT 75 MLS/HR. PT TOLERATING. CONTINUE PER DR POLANCO FOR POSSIBLE EGD/ COLONOSCOPY TOMORROW. ANTX GIVEN. RECTAL TUBE D'C/D D/T NO BMS FROM PATIENT/ CONCERN FOR SKIN BREAKDOWN. NEW PICTURE ADDED IN CHART. 1 SMALL LOOSE BM. D5 NS RUNNING WITH SUGARS REMAINING IN 80S. STRICT Q2H TURNS/ ORAL CARE CONTINUED. CARE ONGOING. Original Note: 1200 PICC MARIE PLACEMENT ATTEMPTED AT BEDSIDE BY PERCY KURTZ. DIFFICULTY WITH PROCEDURE/ CATHETER ADVANCEMENT D/T PATIENT ANATOMY. DR POLANCO AT BEDSIDE THROUGHOUT PLACEMENT. XRAYED. PER PERCY KURTZ, PICC LINE IS GOOD TO USE BUT IS TECHNICALLY A MIDLINE LINE COULD NOT BE ADVANCED COMPLETELY. DR POLANCO AWARE.
[2025-05-15] MEDS: VANCOMYCIN 1,000 MG/200 ML PIGGYBACK 200 MG IV (13:54)
[2025-05-15 15:32] LABS: Hematocrit 25.1 % (41-53); Hemoglobin 8.3 g/dL (13.5-17.5)
--- NOTE | 2025-05-15 19:39 | P.PN_ITS ---
Subjective Subjective Date Patient Seen: 05/15/25 Time Patient Seen: 06:30 Interval history: Pressors overnight, hgb 7 to 8.2 after transfusion Exam Vital Signs (past 8 hours): - 05/15/25 11:45 05/15/25 11:45 05/15/25 12:00 Temperature Pulse Rate 77 Respiratory Rate 19 Blood Pressure 120/71 Pulse Oximetry 100 Oxygen Delivery Method Aerosol Mask Fraction of Inspired Oxygen 05/15/25 12:00 05/15/25 12:00 05/15/25 12:15 Temperature 97.8 F Pulse Rate 85 Respiratory Rate 22 Blood Pressure 122/92 H 108/77 Pulse Oximetry 95 Oxygen Delivery Method Fraction of Inspired Oxygen 05/15/25 12:15 05/15/25 12:30 05/15/25 12:30 Temperature Pulse Rate 80 74 Respiratory Rate 21 19 Blood Pressure 98/69 Pulse Oximetry 99 99 Oxygen Delivery Method Fraction of Inspired Oxygen 05/15/25 12:45 05/15/25 12:45 05/15/25 13:00 Temperature Pulse Rate 75 Respiratory Rate 19 Blood Pressure 97/68 98/64 Pulse Oximetry 98 Oxygen Delivery Method Fraction of Inspired Oxygen 05/15/25 13:00 05/15/25 13:15 05/15/25 13:16 Temperature Pulse Rate 83 79 Respiratory Rate 17 19 Blood Pressure 101/72 Pulse Oximetry 99 99 Oxygen Delivery Method Fraction of Inspired Oxygen 05/15/25 13:16 05/15/25 13:30 05/15/25 13:30 Temperature Pulse Rate 80 76 Respiratory Rate 20 19 Blood Pressure 94/66 Pulse Oximetry 99 99 Oxygen Delivery Method Fraction of Inspired Oxygen 05/15/25 13:45 05/15/25 13:45 05/15/25 14:00 Temperature Pulse Rate 75 Respiratory Rate 19 Blood Pressure 97/70 96/70 Pulse Oximetry 100 Oxygen Delivery Method Fraction of Inspired Oxygen 05/15/25 14:00 05/15/25 14:15 05/15/25 14:15 Temperature Pulse Rate 76 74 Respiratory Rate 19 16 Blood Pressure 94/66 Pulse Oximetry 100 100 Oxygen Delivery Method Fraction of Inspired Oxygen 05/15/25 14:30 05/15/25 14:30 05/15/25 14:45 Temperature Pulse Rate 72 Respiratory Rate 16 Blood Pressure 88/61 L 95/68 Pulse Oximetry 100 Oxygen Delivery Method Fraction of Inspired Oxygen 05/15/25 14:45 05/15/25 15:00 05/15/25 15:00 Temperature Pulse Rate 75 75 Respiratory Rate 18 17 Blood Pressure 97/69 Pulse Oximetry 100 100 Oxygen Delivery Method Fraction of Inspired Oxygen 05/15/25 15:00 05/15/25 15:15 05/15/25 15:15 Temperature Pulse Rate 72 Respiratory Rate 22 18 Blood Pressure 86/59 L Pulse Oximetry 99 99 Oxygen Delivery Method Humidification Trach Collar Fraction of Inspired Oxygen 21 05/15/25 15:30 05/15/25 15:30 05/15/25 15:45 Temperature Pulse Rate 71 Respiratory Rate 17 Blood Pressure 96/66 91/64 Pulse Oximetry 100 Oxygen Delivery Method Fraction of Inspired Oxygen 05/15/25 15:45 05/15/25 16:00 05/15/25 16:00 Temperature 97.0 F L Pulse Rate 70 68 Respiratory Rate 17 16 Blood Pressure Pulse Oximetry 100 100 Oxygen Delivery Method Aerosol Mask Fraction of Inspired Oxygen 05/15/25 16:00 05/15/25 16:15 05/15/25 16:15 Temperature Pulse Rate 67 Respiratory Rate 16 Blood Pressure 84/56 L 82/53 L Pulse Oximetry 100 Oxygen Delivery Method Fraction of Inspired Oxygen 05/15/25 16:30 05/15/25 16:30 05/15/25 16:45 Temperature Pulse Rate 69 69 Respiratory Rate 17 16 Blood Pressure 84/55 L Pulse Oximetry 100 100 Oxygen Delivery Method Fraction of Inspired Oxygen 05/15/25 16:45 05/15/25 17:00 05/15/25 17:00 Temperature Pulse Rate 69 Respiratory Rate 16 Blood Pressure 85/55 L 83/54 L Pulse Oximetry 100 Oxygen Delivery Method Fraction of Inspired Oxygen 05/15/25 17:03 05/15/25 17:04 05/15/25 17:04 Temperature Pulse Rate 69 73 Respiratory Rate 17 16 Blood Pressure 94/62 Pulse Oximetry 100 100 Oxygen Delivery Method Fraction of Inspired Oxygen 05/15/25 17:15 05/15/25 17:15 05/15/25 17:30 Temperature Pulse Rate 76 76 Respiratory Rate 19 19 Blood Pressure 95/70 Pulse Oximetry 100 100 Oxygen Delivery Method Fraction of Inspired Oxygen 05/15/25 17:30 05/15/25 17:45 05/15/25 17:45 Temperature Pulse Rate 74 Respiratory Rate 19 Blood Pressure 99/70 94/65 Pulse Oximetry 100 Oxygen Delivery Method Fraction of Inspired Oxygen 05/15/25 18:00 05/15/25 18:01 05/15/25 18:01 Temperature Pulse Rate 74 73 Respiratory Rate 18 18 Blood Pressure 95/62 Pulse Oximetry 85 L 99 Oxygen Delivery Method Fraction of Inspired Oxygen 05/15/25 18:15 05/15/25 18:15 05/15/25 18:30 Temperature Pulse Rate 71 77 Respiratory Rate 18 18 Blood Pressure 90/58 L Pulse Oximetry 100 100 Oxygen Delivery Method Fraction of Inspired Oxygen 05/15/25 18:30 05/15/25 18:45 05/15/25 18:45 Temperature Pulse Rate 72 Respiratory Rate 19 Blood Pressure 99/66 89/59 L Pulse Oximetry 100 Oxygen Delivery Method Fraction of Inspired Oxygen 05/15/25 19:00 05/15/25 19:00 05/15/25 19:15 Temperature Pulse Rate 73 73 Respiratory Rate 20 19 Blood Pressure 89/61 L Pulse Oximetry 100 100 Oxygen Delivery Method Fraction of Inspired Oxygen 05/15/25 19:15 Temperature Pulse Rate Respiratory Rate Blood Pressure 87/59 L Pulse Oximetry Oxygen Delivery Method Fraction of Inspired Oxygen Fraction of Inspired Oxygen 21 SaO2/FiO2 Ratio 471 Oxygen Delivery Method Aerosol Mask Oxygen Flow Rate 8 GI Other: ABD: midline wound CDI. No grimace with exam. Objective Labs 05/15/25 15:19 05/15/25 12:15 Labs: Laboratory Results - last 24 hr 05/14/25 05/15/25 05/15/25 21:00 01:03 01:38 WBC RBC Hgb 8.4 L Hct 26.1 L MCV MCH MCHC RDW Plt Count Neut % (Auto) Lymph % (Auto) [place] % (Auto) Eos % (Auto) Baso % (Auto) Lymph # (Auto) [place] # (Auto) Baso # (Auto) Total Counted Seg Neutrophils % Band Neutrophils % Lymphocytes % (Manual) Monocytes % (Manual) Eosinophils % (Manual) Basophils % (Manual) Neutrophils # (Manual) RBC Morphology Poikilocytosis Anisocytosis Sodium Potassium Chloride Carbon Dioxide BUN Creatinine Estimated GFR BUN/Creatinine Ratio Glucose POC Whole Bld Glucose 61 L 134 H Calcium Magnesium Vancomycin Trough 05/15/25 05/15/25 05/15/25 04:00 06:25 07:46 WBC RBC Hgb Cancelled Hct Cancelled MCV MCH MCHC RDW Plt Count Neut % (Auto) Lymph % (Auto) [place] % (Auto) Eos % (Auto) Baso % (Auto) Lymph # (Auto) [place] # (Auto) Baso # (Auto) Total Counted Seg Neutrophils % Band Neutrophils % Lymphocytes % (Manual) Monocytes % (Manual) Eosinophils % (Manual) Basophils % (Manual) Neutrophils # (Manual) RBC Morphology Poikilocytosis Anisocytosis Sodium Potassium Chloride Carbon Dioxide BUN Creatinine Estimated GFR BUN/Creatinine Ratio Glucose POC Whole Bld Glucose 77 Calcium Magnesium Vancomycin Trough 11.9 05/15/25 05/15/25 05/15/25 08:36 12:15 13:30 WBC 10.9 RBC 3.56 L Hgb 9.3 L Hct 28.2 L MCV 79.2 L MCH 26.0 MCHC 32.9 RDW 17.6 H Plt Count 449 H Neut % (Auto) Not Reportable Lymph % (Auto) Not Reportable [place] % (Auto) Not Reportable Eos % (Auto) Not Reportable Baso % (Auto) Not Reportable Lymph # (Auto) Not Reportable [place] # (Auto) Not Reportable Baso # (Auto) Not Reportable Total Counted 100 Seg Neutrophils % 54.0 Band Neutrophils % 7.0 Lymphocytes % (Manual) 25.0 Monocytes % (Manual) 6.0 Eosinophils % (Manual) 7.0 H Basophils % (Manual) 1.0 Neutrophils # (Manual) 6649 H RBC Morphology See below Poikilocytosis 1+ H Anisocytosis 1+ H Sodium 134 L Potassium 3.6 Chloride 107 Carbon Dioxide 22 BUN 10 Creatinine 0.29 L Estimated GFR > 60 BUN/Creatinine Ratio 34.5 H Glucose 79 POC Whole Bld Glucose 83 84 Calcium 7.5 L Magnesium 1.8 Vancomycin Trough 13.8 05/15/25 05/15/25 15:19 18:26 WBC RBC Hgb 8.3 L Hct 25.1 L MCV MCH MCHC RDW Plt Count Neut % (Auto) Lymph % (Auto) [place] % (Auto) Eos % (Auto) Baso % (Auto) Lymph # (Auto) [place] # (Auto) Baso # (Auto) Total Counted Seg Neutrophils % Band Neutrophils % Lymphocytes % (Manual) Monocytes % (Manual) Eosinophils % (Manual) Basophils % (Manual) Neutrophils # (Manual) RBC Morphology Poikilocytosis Anisocytosis Sodium Potassium Chloride Carbon Dioxide BUN Creatinine Estimated GFR BUN/Creatinine Ratio Glucose POC Whole Bld Glucose 90 Calcium Magnesium Vancomycin Trough PFSH Medical History Excessive cerumen in both ear canals Chronic anticoagulation Iron deficiency anemia History of pulmonary embolism Status post radiation therapy Chronic anticoagulation Tracheostomy in place Sacral decubitus ulcer, stage III Protein calorie malnutrition Hyponatremia Dysphagia Recurrent aspiration pneumonia Depression, major, recurrent Jejunostomy tube present Influenza A Anemia Pneumonia 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 Father No problems noted. Social History marital status: unmarried,single details: Lives independantly with part-time caregivers household members: none lives independently: Yes occupational status: disabled Smoking Status: Never smoker alcohol intake: never substance use type: marijuana Assessment & Plan Assessment and plan (1) Pressure ulcer of left buttock, stage 3: Status: Acute (2) PEG tube malfunction: Status: Acute (3) Encounter for feeding tube placement: Status: Acute (4) Anemia: Qualifiers: Anemia type: iron deficiency Iron deficiency anemia type: inadequate dietary iron intake Qualified Code(s): D50.8 - Other iron deficiency anemias Status: Acute Plan Hold EGD/colonoscopy today due to pressors D/W Dr. Lockhart, desire off Levophed for 12 hours prior to endoscopy Hgb responded to transfusion Plan GI endoscopy for anemia, guiac+ stool Golytely prep given through J-tube, tolerating, but little BM response Time-Based Coding :: [TOTAL MINUTES] spent with patient and on the chart (including review of chart, obtaining history, exam, reviewing outside data, placing orders, documenting exam and treatment plan, and counseling patient) on [DATE]. [employer]EE Public Address System [employer]ic Document charge(s): Yes Charge Codes Subsequent inpatient/observation care: [id number]
[2025-05-15 21:18] LABS: Hematocrit 24.0 % (41-53); Hemoglobin 7.7 g/dL (13.5-17.5)
[2025-05-15] MEDS: SERTRALINE 50 MG TABLET 200 MG TUBE (21:35)
[2025-05-16] VITALS (91 sets, daily range): BP systolic 76–123; BP diastolic 50–86; PULSE 67–89; RESP 14–25; TEMP 36.2–36.3; O2SAT 88–100
[2025-05-16] MEDS: VANCOMYCIN 1,000 MG/200 ML PIGGYBACK 200 MG IV (02:20)
[2025-05-16 04:24] LABS: Hematocrit 22.9 % (41-53); Hemoglobin 7.4 g/dL (13.5-17.5)
[2025-05-16] MEDS: NOREPINEPHRINE BITARTRATE/D5W 4 MG/250 ML PLAST..BAG 15.904 MG IV (07:00)
--- NOTE | 2025-05-16 08:20 | P.PN_ITS ---
Subjective Subjective Date Patient Seen: 05/16/25 Interval history: Sepsis secondary to a gastric perforation and leak into peritoneum of gastric contents around gastrostomy tube History of present illness: 05/09: Patient is seen at the request of Dr. Naqvi of surgery. Apparently the patient arrived last night with a question of PEG tube dysfunction. A PEG tube was replaced in the ED but was not functioning as expected after placement. The patient was admitted by surgery to the [facility] and this morning taken to the OR for investigation. Prior to this, I was alerted of the patient's clinical status and I did initiate lab tests, blood cultures, IV fluids, and IV cefepime for possible sepsis. [place] [address] with a normal lactic acid. In the OR, the PEG to appeared to be in a false passage. The gastrostomy channel was closed and a J-tube was placed. The peritoneum was washed out. It did not appear grossly that tube feeds were in the peritoneum and the patient was subsequently brought to the ICU where he was on norepinephrine through a peripheral IV and appeared to be very dry with no urine output after 2 L of fluids in the OR. The patient has a noncuffed tracheostomy in place, and severe skin injury to the sacrum including 1 area with possible induration and a wound which is about 2-3 cm in diameter. See media photos. General surgery was alerted to the condition of the back at this time. Micro was reviewed this patient has had MRSA and Pseudomonas in sputum in the past. He was at high risk for MDR infections. He was awake, and moaning, but unable to follow commands or track. 05/10: Patient is minimally responsive white count 18448 92% neutrophils VBG 7.25 pCO2 46 PO2 37 sodium 139 potassium 3.5 chloride 110 CO2 19 BUN 19 creatinine 0.54 Chest x-ray: There is a tracheostomy tube seen in place. Lungs and pleura: Significant volume loss is seen on the left side. There is left-sided interstitial prominence. There is blunting of the left costophrenic angle. 05/11: Patient is receiving chest physiotherapy there is improvement in the lung sounds on the left patient is more animated and regards with eyes 05/12: Secretions clearing with chest physiotherapy patient appears alert is nonverbal regards with eyes only 05/13: Patient is more alert good response to chest physiotherapy resumed tube feeding and is tolerating per J-tube sputum cultures came back: 05/15: Experienced significant GI bleed yesterday with hemoglobin of 7.0, up to 8.6 with unit blood transfusion. This morning's hemoglobin is blocked by poor access so a PICC line is being placed. EGD and colonoscopy were planned by General surgery but overnight the patient experienced hypotension into the 70s systolic so is now on low-dose Levophed. Also the Colyte prep through the J- tube has not produced significant rectal output yet. The white blood count is pending. He remains on a D5 infusion after blood sugars dropped in the 60s overnight. He is on room air through his trach mask. He remains on cefepime and vancomycin. Sputum Culture 1. Staphylococcus aureus M.I.C. RX --------- --- * Daptomycin 0.5 S * Vancomycin 1 S * Ciprofloxacin >=8 R * Clindamycin 0.25 S * Doxycycline <=0.5 S * Erythromycin <=0.25 S * Gentamicin <=0.5 S * Levofloxacin 4 R * Linezolid 2 S * Moxifloxacin 2 R * Oxacillin Ap 0.5 S * Rifampin <=0.5 S * Tetracycline <=1 S * Trimethoprim/Sulfamethoxazole <=10 S 2. Pseudomonas aeruginosa M.I.C. RX --------- --- * Cefepime 2 S * Ceftazidime 2 S * Ciprofloxacin 0.12 S * Levofloxacin 0.5 S * Meropenem 1 S * Piperacillin/Tazobactam 8 S 3. Citrobacter freundii M.I.C. RX --------- --- * Amoxicillin/Clavulanate R * Aztreonam <=1 S * Cefepime E-test 0.064 S * Cefuroxime R * Ciprofloxacin <=0.06 S * Ertapenem <=0.12 S * Gentamicin <=1 S * Levofloxacin <=0.12 S * Meropenem <=0.25 S * Tetracycline <=1 S Review of systems: Incapable due to cognitive limitations Physical examination: Cachectic, pale and chronically ill in appearance . Asleep and does not respond to voice or touch. Trach mask in place Very weak respiratory effort CTAB Heart sounds distant, RRR without murmur His abdomen is flat, and non tender to palpation. A J-tube is in place. Extremities are atrophied and there is puffiness of the hands Large area of skin pressure injury over the sacrum and lower back as well as a wound in the right paraspinal area above the pelvis. See media photos for this. Not visualized today. Padded boots on heels. Electric Wheelchair in the room. Assessment and plan: Peg tube in false lumen, removed, Closure of gastrostomy track and placement of J-tube, active. * Appreciate surgery expertise * Tube feeding reached maintenance rate on 05/14 before stopped due to pending EGD/Colonoscopy GI Bleed, not present on admission, Active -Hgb dropped to 7.0 on 05/14. Up to 8.6 with 1 unit PRBC. Follow. -IV Pantoprazole, stopped Eliquis. -EGD/Colonoscopy pending Septic shock with source unclear, differential of lung with history of MRSA and Pseudomonas versus peritonitis verses back infected wounds. Active. * Blood Cultures negative * Continue cefepime for respiratory Pseudomonas/MSSA/Citrobacter * vancomycin for MSSA in sputum and for possible wound infection * BP dropped again overnight 05/14, started on levophed and IV [id number] soft tissue injury of sacrum with area of induration and a wound of 2 cm in diameter, active. * Wound care team: Stage III pressure ulcer over left iliac crest, no sign of infection. Plan to start daily wet to wet dressing changes with Dakin's solution with Opti-foam outer dressing to help with pressure offloading. Continue pressure offloading with air mattress, turn frequently, and start protein supplementation. Follow up at wound center after discharge for further evaluation and treatment. * Diflucan 4 days 200 mg (until 05/16)Chronic uncuffed tracheostomy, active. * Trach managementSevere volume depletion, active. * Switched back to IVF from TF when made NPO for EGD/Colonoscopy on 05/14Pseudobulbar palsy, and spastic left hemiparesis with long-term tracheostomy and history of recurrent aspiration pneumonia. Chronic medical conditions: * Iron deficiency anemia * History of pulmonary embolism * Status post radiation therapy * Chronic anticoagulation * Tracheostomy in place * Sacral decubitus ulcer, stage III * Protein calorie malnutrition * Hyponatremia * Dysphagia * Recurrent aspiration pneumonia * Depression, major, recurrent * Jejunostomy tube present * Anemia * Pneumonia * Spastic hemiparesis of left nondominant side due to cerebrovascular diseaseCode status: * FULL CODE * Mother is proxy decision maker. * Prognosis is guarded. * Discussed with PCP, Dr. Marshall.Disposition: * Attending is Dr. Naqvi surgery * ICU status * Disposition likely to be SNF rehab. Exam Vital Signs (past 8 hours): - 05/16/25 00:30 05/16/25 00:30 05/16/25 00:45 Pulse Rate 77 72 Respiratory Rate 24 19 Blood Pressure 104/73 Pulse Oximetry 99 100 Oxygen Delivery Method 05/16/25 00:45 05/16/25 01:00 05/16/25 01:00 Pulse Rate 82 Respiratory Rate 20 Blood Pressure 99/71 100/72 Pulse Oximetry 100 Oxygen Delivery Method 05/16/25 01:15 05/16/25 01:15 05/16/25 01:30 Pulse Rate 73 71 Respiratory Rate 16 16 Blood Pressure 97/65 Pulse Oximetry 99 99 Oxygen Delivery Method 05/16/25 01:30 05/16/25 01:45 05/16/25 01:45 Pulse Rate 72 Respiratory Rate 14 Blood Pressure 93/65 93/63 Pulse Oximetry 99 Oxygen Delivery Method 05/16/25 02:00 05/16/25 02:00 05/16/25 02:15 Pulse Rate 71 73 Respiratory Rate 16 17 Blood Pressure 94/62 Pulse Oximetry 99 99 Oxygen Delivery Method 05/16/25 02:15 05/16/25 02:30 05/16/25 02:30 Pulse Rate 71 Respiratory Rate 15 Blood Pressure 92/61 89/58 L Pulse Oximetry 100 Oxygen Delivery Method 05/16/25 02:45 05/16/25 02:45 05/16/25 03:00 Pulse Rate 70 Respiratory Rate 16 Blood Pressure 90/58 L 101/68 Pulse Oximetry 100 Oxygen Delivery Method 05/16/25 03:00 05/16/25 03:15 05/16/25 03:15 Pulse Rate 73 72 Respiratory Rate 18 16 Blood Pressure 93/62 Pulse Oximetry 100 100 Oxygen Delivery Method 05/16/25 03:30 05/16/25 03:30 05/16/25 03:45 Pulse Rate 69 68 Respiratory Rate 17 16 Blood Pressure 93/64 Pulse Oximetry 100 100 Oxygen Delivery Method 05/16/25 03:45 05/16/25 04:00 05/16/25 04:00 Pulse Rate 71 Respiratory Rate 18 Blood Pressure 94/64 Pulse Oximetry 99 Oxygen Delivery Method Aerosol Mask 05/16/25 04:00 05/16/25 04:15 05/16/25 04:15 Pulse Rate 74 Respiratory Rate 19 Blood Pressure 105/70 120/74 Pulse Oximetry 94 Oxygen Delivery Method 05/16/25 04:30 05/16/25 04:30 05/16/25 04:45 Pulse Rate 81 68 Respiratory Rate 25 H 20 Blood Pressure 117/80 Pulse Oximetry 91 98 Oxygen Delivery Method 05/16/25 04:45 05/16/25 05:00 05/16/25 05:00 Pulse Rate 70 Respiratory Rate 19 Blood Pressure 96/67 90/64 Pulse Oximetry 99 Oxygen Delivery Method 05/16/25 05:15 05/16/25 05:15 05/16/25 05:30 Pulse Rate 74 72 Respiratory Rate 19 18 Blood Pressure 102/66 Pulse Oximetry 100 100 Oxygen Delivery Method 05/16/25 05:30 05/16/25 05:45 05/16/25 05:45 Pulse Rate 72 Respiratory Rate 18 Blood Pressure 97/68 95/66 Pulse Oximetry 99 Oxygen Delivery Method 05/16/25 06:00 05/16/25 06:00 05/16/25 06:15 Pulse Rate 73 69 Respiratory Rate 19 20 Blood Pressure 98/66 Pulse Oximetry 98 99 Oxygen Delivery Method 05/16/25 06:15 Pulse Rate Respiratory Rate Blood Pressure 91/63 Pulse Oximetry Oxygen Delivery Method Fraction of Inspired Oxygen 21 SaO2/FiO2 Ratio 466 Oxygen Delivery Method Aerosol Mask Oxygen Flow Rate 8 Objective Labs 05/16/25 04:00 05/15/25 12:15 Labs: Laboratory Results - last 24 hr 05/15/25 05/15/25 05/15/25 08:36 12:15 13:30 WBC 10.9 RBC 3.56 L Hgb 9.3 L Hct 28.2 L MCV 79.2 L MCH 26.0 MCHC 32.9 RDW 17.6 H Plt Count 449 H Neut % (Auto) Not Reportable Lymph % (Auto) Not Reportable [place] % (Auto) Not Reportable Eos % (Auto) Not Reportable Baso % (Auto) Not Reportable Lymph # (Auto) Not Reportable [place] # (Auto) Not Reportable Baso # (Auto) Not Reportable Total Counted 100 Seg Neutrophils % 54.0 Band Neutrophils % 7.0 Lymphocytes % (Manual) 25.0 Monocytes % (Manual) 6.0 Eosinophils % (Manual) 7.0 H Basophils % (Manual) 1.0 Neutrophils # (Manual) 6649 H RBC Morphology See below Poikilocytosis 1+ H Anisocytosis 1+ H Sodium 134 L Potassium 3.6 Chloride 107 Carbon Dioxide 22 BUN 10 Creatinine 0.29 L Estimated GFR > 60 BUN/Creatinine Ratio 34.5 H Glucose 79 POC Whole Bld Glucose 83 84 Calcium 7.5 L Magnesium 1.8 Vancomycin Trough 13.8 05/15/25 05/15/25 05/15/25 15:19 18:26 21:00 WBC RBC Hgb 8.3 L 7.7 L Hct 25.1 L 24.0 L MCV MCH MCHC RDW Plt Count Neut % (Auto) Lymph % (Auto) [place] % (Auto) Eos % (Auto) Baso % (Auto) Lymph # (Auto) [place] # (Auto) Baso # (Auto) Total Counted Seg Neutrophils % Band Neutrophils % Lymphocytes % (Manual) Monocytes % (Manual) Eosinophils % (Manual) Basophils % (Manual) Neutrophils # (Manual) RBC Morphology Poikilocytosis Anisocytosis Sodium Potassium Chloride Carbon Dioxide BUN Creatinine Estimated GFR BUN/Creatinine Ratio Glucose POC Whole Bld Glucose 90 Calcium Magnesium Vancomycin Trough 05/16/25 05/16/25 05/16/25 01:25 04:00 06:03 WBC RBC Hgb 7.4 L Hct 22.9 L MCV MCH MCHC RDW Plt Count Neut % (Auto) Lymph % (Auto) [place] % (Auto) Eos % (Auto) Baso % (Auto) Lymph # (Auto) [place] # (Auto) Baso # (Auto) Total Counted Seg Neutrophils % Band Neutrophils % Lymphocytes % (Manual) Monocytes % (Manual) Eosinophils % (Manual) Basophils % (Manual) Neutrophils # (Manual) RBC Morphology Poikilocytosis Anisocytosis Sodium Potassium Chloride Carbon Dioxide BUN Creatinine Estimated GFR BUN/Creatinine Ratio Glucose POC Whole Bld Glucose 86 77 Calcium Magnesium Vancomycin Trough [facility] Medical History Excessive cerumen in both ear canals Chronic anticoagulation Iron deficiency anemia History of pulmonary embolism Status post radiation therapy Chronic anticoagulation Tracheostomy in place Sacral decubitus ulcer, stage III Protein calorie malnutrition Hyponatremia Dysphagia Recurrent aspiration pneumonia Depression, major, recurrent Jejunostomy tube present Influenza A Anemia Pneumonia 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 Father No problems noted. Social History marital status: unmarried,single details: Lives independantly with part-time caregivers household members: none lives independently: Yes occupational status: disabled Smoking Status: Never smoker alcohol intake: never substance use type: marijuana Assessment & Plan Time-Based Coding :: [TOTAL MINUTES] spent with patient and on the chart (including review of chart, obtaining history, exam, reviewing outside data, placing orders, documenting exam and treatment plan, and counseling patient) on [DATE].
[2025-05-16] MEDS: BACLOFEN 10 MG TABLET 5 MG TUBE (08:33)
[2025-05-16] MEDS: PANTOPRAZOLE 40 MG VIAL IV (08:34)
[2025-05-16] MEDS: NEOMYCIN/POLYMYXIN/BACITRA UD OINT 1 EACH TOP ×2 (08:34→20:45)
[2025-05-16] MEDS: CEFEPIME 2 GM in SODIUM CHLORIDE 0.9% 100 ML IV ×2 (08:40→20:27)
[2025-05-16] MEDS: FLUCONAZOLE 100 MG TABLET 200 MG TUBE (08:42)
[2025-05-16] MEDS: SODIUM HYPOCHLORITE 473 ML SOLUTION TOP (08:44)
[2025-05-16] MEDS: ALBUTEROL/IPRATROPIUM 3 ML AMPUL INH ×2 (08:55→20:05)
--- NOTE | 2025-05-16 08:57 | P.PN_ITS ---
Subjective Subjective Date Patient Seen: 05/16/25 Time Patient Seen: 08:57 Interval history: Still on levo Tolerating trickle feeds via J-tube Exam Vital Signs (past 8 hours): - 05/16/25 01:00 05/16/25 01:00 05/16/25 01:15 Pulse Rate 82 73 Respiratory Rate 20 16 Blood Pressure 100/72 Pulse Oximetry 100 99 Oxygen Delivery Method 05/16/25 01:15 05/16/25 01:30 05/16/25 01:30 Pulse Rate 71 Respiratory Rate 16 Blood Pressure 97/65 93/65 Pulse Oximetry 99 Oxygen Delivery Method 05/16/25 01:45 05/16/25 01:45 05/16/25 02:00 Pulse Rate 72 71 Respiratory Rate 14 16 Blood Pressure 93/63 Pulse Oximetry 99 99 Oxygen Delivery Method 05/16/25 02:00 05/16/25 02:15 05/16/25 02:15 Pulse Rate 73 Respiratory Rate 17 Blood Pressure 94/62 92/61 Pulse Oximetry 99 Oxygen Delivery Method 05/16/25 02:30 05/16/25 02:30 05/16/25 02:45 Pulse Rate 71 70 Respiratory Rate 15 16 Blood Pressure 89/58 L Pulse Oximetry 100 100 Oxygen Delivery Method 05/16/25 02:45 05/16/25 03:00 05/16/25 03:00 Pulse Rate 73 Respiratory Rate 18 Blood Pressure 90/58 L 101/68 Pulse Oximetry 100 Oxygen Delivery Method 05/16/25 03:15 05/16/25 03:15 05/16/25 03:30 Pulse Rate 72 Respiratory Rate 16 Blood Pressure 93/62 93/64 Pulse Oximetry 100 Oxygen Delivery Method 05/16/25 03:30 05/16/25 03:45 05/16/25 03:45 Pulse Rate 69 68 Respiratory Rate 17 16 Blood Pressure 94/64 Pulse Oximetry 100 100 Oxygen Delivery Method 05/16/25 04:00 05/16/25 04:00 05/16/25 04:00 Pulse Rate 71 Respiratory Rate 18 Blood Pressure 105/70 Pulse Oximetry 99 Oxygen Delivery Method Aerosol Mask 05/16/25 04:15 05/16/25 04:15 05/16/25 04:30 Pulse Rate 74 Respiratory Rate 19 Blood Pressure 120/74 117/80 Pulse Oximetry 94 Oxygen Delivery Method 05/16/25 04:30 05/16/25 04:45 05/16/25 04:45 Pulse Rate 81 68 Respiratory Rate 25 H 20 Blood Pressure 96/67 Pulse Oximetry 91 98 Oxygen Delivery Method 05/16/25 05:00 05/16/25 05:00 05/16/25 05:15 Pulse Rate 70 74 Respiratory Rate 19 19 Blood Pressure 90/64 Pulse Oximetry 99 100 Oxygen Delivery Method 05/16/25 05:15 05/16/25 05:30 05/16/25 05:30 Pulse Rate 72 Respiratory Rate 18 Blood Pressure 102/66 97/68 Pulse Oximetry 100 Oxygen Delivery Method 05/16/25 05:45 05/16/25 05:45 05/16/25 06:00 Pulse Rate 72 73 Respiratory Rate 18 19 Blood Pressure 95/66 Pulse Oximetry 99 98 Oxygen Delivery Method 05/16/25 06:00 05/16/25 06:15 05/16/25 06:15 Pulse Rate 69 Respiratory Rate 20 Blood Pressure 98/66 91/63 Pulse Oximetry 99 Oxygen Delivery Method Fraction of Inspired Oxygen 21 SaO2/FiO2 Ratio 466 Oxygen Delivery Method Aerosol Mask Oxygen Flow Rate 8 GI Other: ABD: midline incision CDI, no grimace with abd palpation Objective Labs 05/16/25 04:00 05/15/25 12:15 Labs: Laboratory Results - last 24 hr 05/15/25 05/15/25 05/15/25 12:15 13:30 15:19 WBC 10.9 RBC 3.56 L Hgb 9.3 L 8.3 L Hct 28.2 L 25.1 L MCV 79.2 L MCH 26.0 MCHC 32.9 RDW 17.6 H Plt Count 449 H Neut % (Auto) Not Reportable Lymph % (Auto) Not Reportable [place] % (Auto) Not Reportable Eos % (Auto) Not Reportable Baso % (Auto) Not Reportable Lymph # (Auto) Not Reportable [place] # (Auto) Not Reportable Baso # (Auto) Not Reportable Total Counted 100 Seg Neutrophils % 54.0 Band Neutrophils % 7.0 Lymphocytes % (Manual) 25.0 Monocytes % (Manual) 6.0 Eosinophils % (Manual) 7.0 H Basophils % (Manual) 1.0 Neutrophils # (Manual) 6649 H RBC Morphology See below Poikilocytosis 1+ H Anisocytosis 1+ H Sodium 134 L Potassium 3.6 Chloride 107 Carbon Dioxide 22 BUN 10 Creatinine 0.29 L Estimated GFR > 60 BUN/Creatinine Ratio 34.5 H Glucose 79 POC Whole Bld Glucose 84 Calcium 7.5 L Magnesium 1.8 Vancomycin Trough 13.8 05/15/25 05/15/25 05/16/25 18:26 21:00 01:25 WBC RBC Hgb 7.7 L Hct 24.0 L MCV MCH MCHC RDW Plt Count Neut % (Auto) Lymph % (Auto) [place] % (Auto) Eos % (Auto) Baso % (Auto) Lymph # (Auto) [place] # (Auto) Baso # (Auto) Total Counted Seg Neutrophils % Band Neutrophils % Lymphocytes % (Manual) Monocytes % (Manual) Eosinophils % (Manual) Basophils % (Manual) Neutrophils # (Manual) RBC Morphology Poikilocytosis Anisocytosis Sodium Potassium Chloride Carbon Dioxide BUN Creatinine Estimated GFR BUN/Creatinine Ratio Glucose POC Whole Bld Glucose 90 86 Calcium Magnesium Vancomycin Trough 05/16/25 05/16/25 04:00 06:03 WBC RBC Hgb 7.4 L Hct 22.9 L MCV MCH MCHC RDW Plt Count Neut % (Auto) Lymph % (Auto) [place] % (Auto) Eos % (Auto) Baso % (Auto) Lymph # (Auto) [place] # (Auto) Baso # (Auto) Total Counted Seg Neutrophils % Band Neutrophils % Lymphocytes % (Manual) Monocytes % (Manual) Eosinophils % (Manual) Basophils % (Manual) Neutrophils # (Manual) RBC Morphology Poikilocytosis Anisocytosis Sodium Potassium Chloride Carbon Dioxide BUN Creatinine Estimated GFR BUN/Creatinine Ratio Glucose POC Whole Bld Glucose 77 Calcium Magnesium Vancomycin Trough [facility] Medical History Excessive cerumen in both ear canals Chronic anticoagulation Iron deficiency anemia History of pulmonary embolism Status post radiation therapy Chronic anticoagulation Tracheostomy in place Sacral decubitus ulcer, stage III Protein calorie malnutrition Hyponatremia Dysphagia Recurrent aspiration pneumonia Depression, major, recurrent Jejunostomy tube present Influenza A Anemia Pneumonia 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 Father No problems noted. Social History marital status: unmarried,single details: Lives independantly with part-time caregivers household members: none lives independently: Yes occupational status: disabled Smoking Status: Never smoker alcohol intake: never substance use type: marijuana Assessment & Plan Assessment and plan (1) PEG tube malfunction: Status: Acute (2) Encounter for feeding tube placement: Status: Acute Plan Will hold off on GI endoscopy for anemia, guiac+ stool for now while on pressors Tolerating trickle feeds Time-Based Coding :: [TOTAL MINUTES] spent with patient and on the chart (including review of chart, obtaining history, exam, reviewing outside data, placing orders, documenting exam and treatment plan, and counseling patient) on [DATE]. PROFEE Asphalt Distributor Operator Document charge(s): Yes Charge Codes Subsequent inpatient/observation care: 39621
[2025-05-16] MEDS: DEXTROSE 5%-0.9% NS 1,000 ML 84 ML IV (09:38)
[2025-05-16 10:35] LABS: Hematocrit 24.4 % (41-53); Hemoglobin 7.9 g/dL (13.5-17.5)
[2025-05-16 11:24] LABS: Alanine Aminotransferase 12 IU/L (<50); Albumin 2.1 g/dL (3.5-5.0); Albumin Globulin Ratio 0.7 (1.0-2.8); Alkaline Phosphatase 71 U/L (38-126); Blood Urea Nitrogen 6 mg/dL (9-20); Calcium 7.2 mg/dL (8.4-10.2); Carbon Dioxide 24 mmol/L (22-32); Chloride 106 mmol/L (98-107); Estimated Glomerular Filt Rate > 60 mL/min (>60); Globulin 2.9 g/dL (1.7-4.1); Glucose 78 mg/dL (70-99); HEMOLYSIS < 15 (0-50); Potassium 3.1 mmol/L (3.4-5.1); Sodium 135 mmol/L (137-145); Total Protein 5.0 g/dL (6.3-8.2)
[2025-05-16 11:25] LABS: Magnesium 1.6 mg/dL (1.6-2.3); Phosphorous 2.4 mg/dL (2.5-4.5); Triglycerides 94 mg/dL (35-150)
--- NOTE | 2025-05-16 11:29 | DIET.PN1 ---
Dietary Progress Note Assessment: f/u Per RN, tube feeds remain off this morning. Per hospitalist, unable to start tube feeds again d/t unknown GI bleed. EGD/colonoscopy cannot be done until pt off norepinephrine. Pt remains on norepinephrine. Plan to start TPN this evening. Day 2 off enteral feeds. Has been on D5 at 84 mL/hr since 05/15 getting 2 L daily or 100 g dextrose daily. Ht: 174.73 cm Wt: 77.111 kg BMI: 25.2 UBW: 160 lb Last BM: 05/14/25 (05/14/25 17:24) MNA: Krishan Score: 9 Diet: 05/15/25 00:01 NPO Diet Diet Modifications: NPO Type: Strict Nutrition Type of Feeding Tube Jejunostomy 05/14/25 16:00 Type of Feeding Tube Jejunostomy 05/14/25 12:00 Labs: RBC 3.56 X10^6/uL (4.5-5.9) L 05/15/25 12:15 Hgb 7.9 g/dL (13.5-17.5) L 05/16/25 10:24 Hct 24.4 % (41-53) L 05/16/25 10:24 Creatinine 0.29 mg/dL (0.66-1.25) L 05/15/25 12:15 Lactate 1.2 mmol/L (0.7-2.1) 05/10/25 10:00 Nutrition Diagnosis: -Severe chronic Protein Calorie Malnutrition r/t altered GI tract motility and increased needs (protein) as evidenced by severe muscle wasting in temples and deltoid, severe buccal and orbital subcutaneous fat loss, <60% of estimated protein needs due to malabsorption and wound healing needs for >1 month -Inadequate energy intake r/t altered GI function/structure aeb GI bleed/anemia, unable to start enteral feeds again at this time Interventions: 1. Starting TPN, recc continuous TPN as follows: -Day 1: 1 L clinimix 5/20 running at 42 mL/h. If pt tolerating with no signs of refeeding, advance to day 2 -Day 2: 1.5 L clinimix 5/20 running at 62 mL/h. If pt tolerating with no signs of refeeding, advance to day 3 -Day 3: Goal rate of 2 L clinimix 5/20 running at 82 mL/h. Lipids: 250 mL IVFE 3x/week Goal rate plus lipids provides 1974 kcals, 100 g protein daily meeting estimated energy/protein needs 2. Recc checking K+, phos, Mg before starting feeds and for 3 days after start of feeds d/t protein calorie malnutrition. Hold initiation or advancement if electrolytes are below normal until lytes are supplemented and/or normalized. EER: 1900 kcals (25 kcals/kg per BMI) 100-115 g protein (1.25-1.5 g/kg per ICU and wounds), 1222-4372 mL fluids (1mL per kcal vs 30 mL/kg) Monitoring/Evaluations: labs, tolerance, plan of care; following daily Electronically Signed by: Flakita Hopkins 05/16/25 11:29 Clinical Dietitian [address] [id number]
[2025-05-16] MEDS: POTASSIUM PHOSPHATE 15 MMOL in SODIUM CHLORIDE 0.9% 250 ML 127.5 MMOL IV (12:38)
--- NOTE | 2025-05-16 13:03 | P.PN_ITS ---
Subjective Subjective Date Patient Seen: 05/16/25 Time Patient Seen: 12:40 Interval history: Sepsis secondary to a gastric perforation and leak into peritoneum of gastric contents around gastrostomy tube History of present illness: 05/09: Patient is seen at the request of Dr. Naqvi of surgery. Apparently the patient arrived last night with a question of PEG tube dysfunction. A PEG tube was replaced in the ED but was not functioning as expected after placement. The patient was admitted by surgery to the [facility] and this morning taken to the OR for investigation. Prior to this, I was alerted of the patient's clinical status and I did initiate lab tests, blood cultures, IV fluids, and IV cefepime for possible sepsis. [place] [address] with a normal lactic acid. In the OR, the PEG to appeared to be in a false passage. The gastrostomy channel was closed and a J-tube was placed. The peritoneum was washed out. It did not appear grossly that tube feeds were in the peritoneum and the patient was subsequently brought to the ICU where he was on norepinephrine through a peripheral IV and appeared to be very dry with no urine output after 2 L of fluids in the OR. The patient has a noncuffed tracheostomy in place, and severe skin injury to the sacrum including 1 area with possible induration and a wound which is about 2-3 cm in diameter. See media photos. General surgery was alerted to the condition of the back at this time. Micro was reviewed this patient has had MRSA and Pseudomonas in sputum in the past. He was at high risk for MDR infections. He was awake, and moaning, but unable to follow commands or track. 05/10: Patient is minimally responsive white count 49325 92% neutrophils VBG 7.25 pCO2 46 PO2 37 sodium 139 potassium 3.5 chloride 110 CO2 19 BUN 19 creatinine 0.54 Chest x-ray: There is a tracheostomy tube seen in place. Lungs and pleura: Significant volume loss is seen on the left side. There is left-sided interstitial prominence. There is blunting of the left costophrenic angle. 05/11: Patient is receiving chest physiotherapy there is improvement in the lung sounds on the left patient is more animated and regards with eyes 05/12: Secretions clearing with chest physiotherapy patient appears alert is nonverbal regards with eyes only 05/13: Patient is more alert good response to chest physiotherapy resumed tube feeding and is tolerating per J-tube sputum cultures came back: 05/15: Experienced significant GI bleed yesterday with hemoglobin of 7.0, up to 8.6 with unit blood transfusion. This morning's hemoglobin is blocked by poor access so a PICC line is being placed. EGD and colonoscopy were planned by General surgery but overnight the patient experienced hypotension into the 70s systolic so is now on low-dose Levophed. Also the Colyte prep through the J- tube has not produced significant rectal output yet. The white blood count is pending. He remains on a D5 infusion after blood sugars dropped in the 60s overnight. He is on room air through his trach mask. He remains on cefepime and vancomycin. 05/16: No further active bleeding noted. The patient remains mildly hypotensive. His Levophed was stopped with blood pressure 83/46, and MAP 62. He is making good clear yellow urine output with evidence of significant 3rd spacing in arms and legs. He is awake and nods yes and no to questions, denies pain. Exam Vital Signs (past 8 hours): - 05/16/25 05:15 05/16/25 05:15 05/16/25 05:30 Temperature Pulse Rate 74 72 Respiratory Rate 19 18 Blood Pressure 102/66 Pulse Oximetry 100 100 Oxygen Delivery Method Fraction of Inspired Oxygen 05/16/25 05:30 05/16/25 05:45 05/16/25 05:45 Temperature Pulse Rate 72 Respiratory Rate 18 Blood Pressure 97/68 95/66 Pulse Oximetry 99 Oxygen Delivery Method Fraction of Inspired Oxygen 05/16/25 06:00 05/16/25 06:00 05/16/25 06:15 Temperature Pulse Rate 73 69 Respiratory Rate 19 20 Blood Pressure 98/66 Pulse Oximetry 98 99 Oxygen Delivery Method Fraction of Inspired Oxygen 05/16/25 06:15 05/16/25 06:30 05/16/25 06:30 Temperature Pulse Rate 71 Respiratory Rate 18 Blood Pressure 91/63 93/64 Pulse Oximetry 98 Oxygen Delivery Method Fraction of Inspired Oxygen 05/16/25 06:45 05/16/25 06:45 05/16/25 07:00 Temperature Pulse Rate 71 70 Respiratory Rate 18 18 Blood Pressure 93/63 Pulse Oximetry 100 99 Oxygen Delivery Method Fraction of Inspired Oxygen 05/16/25 07:00 05/16/25 07:15 05/16/25 07:15 Temperature Pulse Rate 71 Respiratory Rate 18 Blood Pressure 93/64 91/62 Pulse Oximetry 100 Oxygen Delivery Method Fraction of Inspired Oxygen 05/16/25 07:30 05/16/25 07:30 05/16/25 07:45 Temperature Pulse Rate 71 70 Respiratory Rate 18 18 Blood Pressure 89/61 L Pulse Oximetry 100 100 Oxygen Delivery Method Fraction of Inspired Oxygen 05/16/25 07:45 05/16/25 08:00 05/16/25 08:00 Temperature Pulse Rate 71 Respiratory Rate 18 Blood Pressure 93/63 96/65 Pulse Oximetry 100 Oxygen Delivery Method Fraction of Inspired Oxygen 05/16/25 08:00 05/16/25 08:15 05/16/25 08:15 Temperature Pulse Rate 71 Respiratory Rate 18 Blood Pressure 88/58 L Pulse Oximetry 100 Oxygen Delivery Method Aerosol Mask Fraction of Inspired Oxygen 05/16/25 08:30 05/16/25 08:30 05/16/25 08:45 Temperature Pulse Rate 71 69 Respiratory Rate 18 18 Blood Pressure 88/58 L Pulse Oximetry 100 100 Oxygen Delivery Method Fraction of Inspired Oxygen 05/16/25 08:45 05/16/25 08:55 05/16/25 09:00 Temperature Pulse Rate 70 Respiratory Rate 22 Blood Pressure 99/68 118/79 Pulse Oximetry 99 Oxygen Delivery Method Trach Collar Fraction of Inspired Oxygen 05/16/25 09:00 05/16/25 09:00 05/16/25 09:15 Temperature 97.4 F L Pulse Rate 71 71 Respiratory Rate 19 18 Blood Pressure Pulse Oximetry 100 100 Oxygen Delivery Method Fraction of Inspired Oxygen 05/16/25 09:16 05/16/25 09:16 05/16/25 09:30 Temperature Pulse Rate 89 70 Respiratory Rate 18 22 Blood Pressure 92/65 Pulse Oximetry 100 99 Oxygen Delivery Method Fraction of Inspired Oxygen 05/16/25 09:30 05/16/25 09:45 05/16/25 09:45 Temperature Pulse Rate 71 Respiratory Rate 20 Blood Pressure 95/67 93/63 Pulse Oximetry 100 Oxygen Delivery Method Fraction of Inspired Oxygen 05/16/25 10:00 05/16/25 10:00 05/16/25 10:15 Temperature Pulse Rate 71 70 Respiratory Rate 19 19 Blood Pressure 94/64 Pulse Oximetry 99 100 Oxygen Delivery Method Fraction of Inspired Oxygen 05/16/25 10:15 05/16/25 10:30 05/16/25 10:30 Temperature Pulse Rate 73 Respiratory Rate 19 Blood Pressure 98/69 98/70 Pulse Oximetry 100 Oxygen Delivery Method Fraction of Inspired Oxygen 05/16/25 10:45 05/16/25 10:45 05/16/25 11:00 Temperature Pulse Rate 72 73 Respiratory Rate 18 19 Blood Pressure 97/68 Pulse Oximetry 100 100 Oxygen Delivery Method Fraction of Inspired Oxygen 05/16/25 11:00 05/16/25 11:15 05/16/25 11:15 Temperature Pulse Rate 72 Respiratory Rate 21 Blood Pressure 104/72 103/70 Pulse Oximetry 100 Oxygen Delivery Method Fraction of Inspired Oxygen 05/16/25 11:30 05/16/25 11:30 05/16/25 11:45 Temperature Pulse Rate 72 71 Respiratory Rate 18 18 Blood Pressure 93/63 Pulse Oximetry 99 97 Oxygen Delivery Method Fraction of Inspired Oxygen 05/16/25 11:45 05/16/25 12:00 05/16/25 12:00 Temperature Pulse Rate 71 Respiratory Rate 19 Blood Pressure 87/58 L 87/57 L Pulse Oximetry 98 Oxygen Delivery Method Fraction of Inspired Oxygen Fraction of Inspired Oxygen 21 SaO2/FiO2 Ratio 471 Oxygen Delivery Method Trach Collar Oxygen Flow Rate 8 Narrative Exam Narrative: Cachectic, pale and chronically ill in appearance . Asleep and does not respond to voice or touch. Trach mask in place Very weak respiratory effort CTAB Heart sounds distant, RRR without murmur His abdomen is flat, and non tender to palpation. A J-tube is in place. Extremities are atrophied and there is puffiness of the hands Large area of skin pressure injury over the sacrum and lower back as well as a wound in the right paraspinal area above the pelvis. See media photos for this. Not visualized today. Padded boots on heels. Electric Wheelchair in the room. Objective Labs 05/16/25 10:24 05/16/25 11:05 Labs: Laboratory Results - last 24 hr 05/15/25 05/15/25 05/15/25 13:30 15:19 18:26 Hgb 8.3 L Hct 25.1 L Sodium Potassium Chloride Carbon Dioxide BUN Creatinine Estimated GFR BUN/Creatinine Ratio Glucose POC Whole Bld Glucose 84 90 Calcium Phosphorus Magnesium Total Bilirubin AST ALT Alkaline Phosphatase Total Protein Albumin Globulin Albumin/Globulin Ratio Triglycerides 05/15/25 05/16/25 05/16/25 21:00 01:25 04:00 Hgb 7.7 L 7.4 L Hct 24.0 L 22.9 L Sodium Potassium Chloride Carbon Dioxide BUN Creatinine Estimated GFR BUN/Creatinine Ratio Glucose POC Whole Bld Glucose 86 Calcium Phosphorus Magnesium Total Bilirubin AST ALT Alkaline Phosphatase Total Protein Albumin Globulin Albumin/Globulin Ratio Triglycerides 05/16/25 05/16/25 05/16/25 06:03 10:24 11:05 Hgb 7.9 L Hct 24.4 L Sodium 135 L Potassium 3.1 L Chloride 106 Carbon Dioxide 24 BUN 6 L Creatinine 0.29 L Estimated GFR > 60 BUN/Creatinine Ratio 20.7 Glucose 78 POC Whole Bld Glucose 77 69 L Calcium 7.2 L Phosphorus 2.4 L Magnesium 1.6 Total Bilirubin 0.2 AST 22 ALT 12 Alkaline Phosphatase 71 Total Protein 5.0 L Albumin 2.1 L Globulin 2.9 Albumin/Globulin Ratio 0.7 L Triglycerides 94 PFSH Medical History Excessive cerumen in both ear canals Chronic anticoagulation Iron deficiency anemia History of pulmonary embolism Status post radiation therapy Chronic anticoagulation Tracheostomy in place Sacral decubitus ulcer, stage III Protein calorie malnutrition Hyponatremia Dysphagia Recurrent aspiration pneumonia Depression, major, recurrent Jejunostomy tube present Influenza A Anemia Pneumonia 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 Father No problems noted. Social History marital status: unmarried,single details: Lives independantly with part-time caregivers household members: none lives independently: Yes occupational status: disabled Smoking Status: Never smoker alcohol intake: never substance use type: marijuana Assessment & Plan Assessment & Plan narrative: Peg tube in false lumen, removed, Closure of gastrostomy track and placement of J-tube, active. * Appreciate surgery expertise * Tube feeding reached maintenance rate on 05/14 before stopped due to pending EGD/Colonoscopy GI Bleed, not present on admission, Active * Hgb dropped to 7.0 on 05/14. Up to 8.6 with 1 unit PRBC. Follow. * IV Pantoprazole, stopped Eliquis. * EGD/Colonoscopy pending, communicated with surgical team regarding proceeding with this study today when blood pressures improved Septic shock with source unclear, differential of lung with history of MRSA and Pseudomonas versus peritonitis verses back infected wounds. Active. * Blood Cultures negative * Continue cefepime for respiratory Pseudomonas/MSSA/Citrobacter * vancomycin for MSSA in sputum and for possible wound infection * Levophed drip stopped today, see below regarding volume depletion and BP management Severe volume depletion, active. * Switched back to IVF from TF when made NPO for EGD/Colonoscopy on 05/14 * He has significant peripheral edema but is intravascularly volume depleted, and we will continue to gently give small boluses of 250 mL NS for to bring blood pressure and MEP over 65 for upcoming EGD procedure Severe soft tissue injury of sacrum with area of induration and a wound of 2 cm in diameter, active. * Wound care team: Stage III pressure ulcer over left iliac crest, no sign of infection. Plan to start daily wet to wet dressing changes with Dakin's solution with Opti-foam outer dressing to help with pressure offloading. Continue pressure offloading with air mattress, turn frequently, and start protein supplementation. Follow up at wound center after discharge for further evaluation and treatment. * Diflucan 4 days 200 mg (until 05/16)Chronic uncuffed tracheostomy, active. * Trach management Pseudobulbar palsy, and spastic left hemiparesis with long-term tracheostomy and history of recurrent aspiration pneumonia. Chronic medical conditions: * Iron deficiency anemia * History of pulmonary embolism * Status post radiation therapy * Chronic anticoagulation * Tracheostomy in place * Sacral decubitus ulcer, stage III * Protein calorie malnutrition * Hyponatremia * Dysphagia * Recurrent aspiration pneumonia * Depression, major, recurrent * Jejunostomy tube present * Anemia * Pneumonia * Spastic hemiparesis of left nondominant side due to cerebrovascular diseaseCode status: FULL CODE * Mother is proxy decision maker. * Prognosis is guarded. * Discussed with PCP, Dr. Marshall.Disposition: * Attending is Dr. Naqvi surgery * ICU status * Disposition likely to be SNF rehab. PROFEE Reverse Logistics Analyst Document charge(s): No Charge Codes Subsequent inpatient/observation care: [id number]
--- NOTE | 2025-05-16 13:07 | PC.NURSE ---
Addendum entered by Mary Ann Yoo RN 05/16/25 17:18: [id number] Resumed Levophed at 0.03 mcg to maintain MAP <65, Dr Marshall and Dr Lockhart updated on pt status, No further pt needs at this time, care ongoing. Addendum entered by Mary Ann Yoo RN 05/16/25 13:21: per order from Dr Marshall, give additional 250 bolus from current infusing bag of D5NS (for a total of 450 total so far). OK to keep bolusing 250 at a time to hopefully keep BP WNL to be able to do EGD and colonoscopy this afternoon (if Dr Naqvi agrees). Original Note: Per verbal order from Dr Marshall, bolus pt 200mL from currently infusing bag of D5NS, to possibly avoid having to place pt back on Levophed that was turned off. Current BP is 78/50 MAP 59, will continue to update Dr Marshall of BP trend, no further pt needs at this time, care ongoing
--- NOTE | 2025-05-16 13:37 | P.PN_ITS ---
Subjective Subjective Date Patient Seen: 05/16/25 Interval history: No melena or hematochezia Still requiring vasopressors Exam Vital Signs (past 8 hours): - 05/16/25 05:45 05/16/25 05:45 05/16/25 06:00 Temperature Pulse Rate 72 73 Respiratory Rate 18 19 Blood Pressure 95/66 Pulse Oximetry 99 98 Oxygen Delivery Method Fraction of Inspired Oxygen 05/16/25 06:00 05/16/25 06:15 05/16/25 06:15 Temperature Pulse Rate 69 Respiratory Rate 20 Blood Pressure 98/66 91/63 Pulse Oximetry 99 Oxygen Delivery Method Fraction of Inspired Oxygen 05/16/25 06:30 05/16/25 06:30 05/16/25 06:45 Temperature Pulse Rate 71 71 Respiratory Rate 18 18 Blood Pressure 93/64 Pulse Oximetry 98 100 Oxygen Delivery Method Fraction of Inspired Oxygen 05/16/25 06:45 05/16/25 07:00 05/16/25 07:00 Temperature Pulse Rate 70 Respiratory Rate 18 Blood Pressure 93/63 93/64 Pulse Oximetry 99 Oxygen Delivery Method Fraction of Inspired Oxygen 05/16/25 07:15 05/16/25 07:15 05/16/25 07:30 Temperature Pulse Rate 71 71 Respiratory Rate 18 18 Blood Pressure 91/62 Pulse Oximetry 100 100 Oxygen Delivery Method Fraction of Inspired Oxygen 05/16/25 07:30 05/16/25 07:45 05/16/25 07:45 Temperature Pulse Rate 70 Respiratory Rate 18 Blood Pressure 89/61 L 93/63 Pulse Oximetry 100 Oxygen Delivery Method Fraction of Inspired Oxygen 05/16/25 08:00 05/16/25 08:00 05/16/25 08:00 Temperature Pulse Rate 71 Respiratory Rate 18 Blood Pressure 96/65 Pulse Oximetry 100 Oxygen Delivery Method Aerosol Mask Fraction of Inspired Oxygen 05/16/25 08:15 05/16/25 08:15 05/16/25 08:30 Temperature Pulse Rate 71 71 Respiratory Rate 18 18 Blood Pressure 88/58 L Pulse Oximetry 100 100 Oxygen Delivery Method Fraction of Inspired Oxygen 05/16/25 08:30 05/16/25 08:45 05/16/25 08:45 Temperature Pulse Rate 69 Respiratory Rate 18 Blood Pressure 88/58 L 99/68 Pulse Oximetry 100 Oxygen Delivery Method Fraction of Inspired Oxygen 05/16/25 08:55 05/16/25 09:00 05/16/25 09:00 Temperature Pulse Rate 70 71 Respiratory Rate 22 19 Blood Pressure 118/79 Pulse Oximetry 99 100 Oxygen Delivery Method Trach Collar Fraction of Inspired Oxygen 21 05/16/25 09:00 05/16/25 09:15 05/16/25 09:16 Temperature 97.4 F L Pulse Rate 71 Respiratory Rate 18 Blood Pressure 92/65 Pulse Oximetry 100 Oxygen Delivery Method Fraction of Inspired Oxygen 05/16/25 09:16 05/16/25 09:30 05/16/25 09:30 Temperature Pulse Rate 89 70 Respiratory Rate 18 22 Blood Pressure 95/67 Pulse Oximetry 100 99 Oxygen Delivery Method Fraction of Inspired Oxygen 05/16/25 09:45 05/16/25 09:45 05/16/25 10:00 Temperature Pulse Rate 71 71 Respiratory Rate 20 19 Blood Pressure 93/63 Pulse Oximetry 100 99 Oxygen Delivery Method Fraction of Inspired Oxygen 05/16/25 10:00 05/16/25 10:15 05/16/25 10:15 Temperature Pulse Rate 70 Respiratory Rate 19 Blood Pressure 94/64 98/69 Pulse Oximetry 100 Oxygen Delivery Method Fraction of Inspired Oxygen 05/16/25 10:30 05/16/25 10:30 05/16/25 10:45 Temperature Pulse Rate 73 72 Respiratory Rate 19 18 Blood Pressure 98/70 Pulse Oximetry 100 100 Oxygen Delivery Method Fraction of Inspired Oxygen 05/16/25 10:45 05/16/25 11:00 05/16/25 11:00 Temperature Pulse Rate 73 Respiratory Rate 19 Blood Pressure 97/68 104/72 Pulse Oximetry 100 Oxygen Delivery Method Fraction of Inspired Oxygen 05/16/25 11:15 05/16/25 11:15 05/16/25 11:30 Temperature Pulse Rate 72 72 Respiratory Rate 21 18 Blood Pressure 103/70 Pulse Oximetry 100 99 Oxygen Delivery Method Fraction of Inspired Oxygen 05/16/25 11:30 05/16/25 11:45 05/16/25 11:45 Temperature Pulse Rate 71 Respiratory Rate 18 Blood Pressure 93/63 87/58 L Pulse Oximetry 97 Oxygen Delivery Method Fraction of Inspired Oxygen 05/16/25 12:00 05/16/25 12:00 05/16/25 12:00 Temperature Pulse Rate 71 Respiratory Rate 19 Blood Pressure 87/57 L Pulse Oximetry 98 Oxygen Delivery Method Aerosol Mask Fraction of Inspired Oxygen 05/16/25 12:15 05/16/25 12:15 05/16/25 12:30 Temperature Pulse Rate 70 71 Respiratory Rate 19 19 Blood Pressure 86/56 L Pulse Oximetry 99 98 Oxygen Delivery Method Fraction of Inspired Oxygen 05/16/25 12:30 05/16/25 12:39 05/16/25 12:39 Temperature Pulse Rate 76 Respiratory Rate 20 Blood Pressure 83/54 L 86/53 L Pulse Oximetry 97 Oxygen Delivery Method Fraction of Inspired Oxygen 05/16/25 12:45 05/16/25 12:45 05/16/25 13:00 Temperature Pulse Rate 75 Respiratory Rate 19 Blood Pressure 80/51 L 78/50 L Pulse Oximetry 99 Oxygen Delivery Method Fraction of Inspired Oxygen 05/16/25 13:00 Temperature Pulse Rate 74 Respiratory Rate 21 Blood Pressure Pulse Oximetry 99 Oxygen Delivery Method Fraction of Inspired Oxygen Fraction of Inspired Oxygen 21 SaO2/FiO2 Ratio 471 Oxygen Delivery Method Aerosol Mask Oxygen Flow Rate 8 Narrative Exam Narrative: Abdomen is soft Incision clean dry and intact Objective Labs 05/17/25 05:16 05/17/25 05:16 Labs: Laboratory Results - last 24 hr 05/15/25 05/15/25 05/15/25 15:19 18:26 21:00 Hgb 8.3 L 7.7 L Hct 25.1 L 24.0 L Sodium Potassium Chloride Carbon Dioxide BUN Creatinine Estimated GFR BUN/Creatinine Ratio Glucose POC Whole Bld Glucose 90 Calcium Phosphorus Magnesium Total Bilirubin AST ALT Alkaline Phosphatase Total Protein Albumin Globulin Albumin/Globulin Ratio Triglycerides 05/16/25 05/16/25 05/16/25 01:25 04:00 06:03 Hgb 7.4 L Hct 22.9 L Sodium Potassium Chloride Carbon Dioxide BUN Creatinine Estimated GFR BUN/Creatinine Ratio Glucose POC Whole Bld Glucose 86 77 Calcium Phosphorus Magnesium Total Bilirubin AST ALT Alkaline Phosphatase Total Protein Albumin Globulin Albumin/Globulin Ratio Triglycerides 05/16/25 05/16/25 10:24 11:05 Hgb 7.9 L Hct 24.4 L Sodium 135 L Potassium 3.1 L Chloride 106 Carbon Dioxide 24 BUN 6 L Creatinine 0.29 L Estimated GFR > 60 BUN/Creatinine Ratio 20.7 Glucose 78 POC Whole Bld Glucose 69 L Calcium 7.2 L Phosphorus 2.4 L Magnesium 1.6 Total Bilirubin 0.2 AST 22 ALT 12 Alkaline Phosphatase 71 Total Protein 5.0 L Albumin 2.1 L Globulin 2.9 Albumin/Globulin Ratio 0.7 L Triglycerides 94 [facility] Medical History Excessive cerumen in both ear canals Chronic anticoagulation Iron deficiency anemia History of pulmonary embolism Status post radiation therapy Chronic anticoagulation Tracheostomy in place Sacral decubitus ulcer, stage III Protein calorie malnutrition Hyponatremia Dysphagia Recurrent aspiration pneumonia Depression, major, recurrent Jejunostomy tube present Influenza A Anemia Pneumonia 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 Father No problems noted. Social History marital status: unmarried,single details: Lives independantly with part-time caregivers household members: none lives independently: Yes occupational status: disabled Smoking Status: Never smoker alcohol intake: never substance use type: marijuana Assessment & Plan Assessment and plan (1) PEG tube malfunction: Status: Acute Plan No evidence of clinically significant GI hemorrhage at this time Suspect drop in hemoglobin has been primarily delusional Time-Based Coding :: [TOTAL MINUTES] spent with patient and on the chart (including review of chart, obtaining history, exam, reviewing outside data, placing orders, documenting exam and treatment plan, and counseling patient) on [DATE]. [employer] Document charge(s): No
[2025-05-16] MEDS: SODIUM CHLORIDE 0.9% 1,000 ML 84 ML IV (15:58)
[2025-05-16] MEDS: MAGNESIUM SULFATE 2 GM/50 ML PIGGYBACK IV (15:58)
[2025-05-16] MEDS: POTASSIUM CHLORIDE IN WATER 10 MEQ/100 ML PIGGYBACK 100 MEQ IV ×2 (15:58→17:24)
[2025-05-16] MEDS: AA 5 %/CALCIUM/LYTES/DEXT 20 % 1,000 ML with MULTIVITAMIN 10 ML, TRACE ELEMENTS 1 ML, T... 42.167 ML IV (18:13)
[2025-05-16] MEDS: SODIUM CHLORIDE 0.9% 1,000 ML 42 ML IV (18:44)
[2025-05-16 19:10] LABS: Magnesium, RBC 5.2 mg/dL (3.7-7.0)
[2025-05-16] MEDS: SODIUM CHLORIDE 0.9% FLUSH 10 ML IV (20:19)
[2025-05-16] MEDS: SERTRALINE 50 MG TABLET 200 MG TUBE (20:28)
[2025-05-16 21:09] LABS: Hematocrit 24.5 % (41-53); Hemoglobin 7.9 g/dL (13.5-17.5)
[2025-05-16] MEDS: NOREPINEPHRINE BITARTRATE/D5W 4 MG/250 ML PLAST..BAG 14.458 MG IV (22:38)
[2025-05-17] VITALS (102 sets, daily range): BP systolic 85–116; BP diastolic 51–81; PULSE 64–86; RESP 16–29; TEMP 36.4; O2SAT 88–100
[2025-05-17 05:23] LABS: Hematocrit 25.3 % (41-53); Hemoglobin 8.3 g/dL (13.5-17.5)
[2025-05-17 05:42] LABS: Blood Urea Nitrogen 5 mg/dL (9-20); Calcium 7.6 mg/dL (8.4-10.2); Carbon Dioxide 28 mmol/L (22-32); Chloride 105 mmol/L (98-107); Estimated Glomerular Filt Rate > 60 mL/min (>60); Glucose 102 mg/dL (70-99); HEMOLYSIS < 15 (0-50); Magnesium 1.9 mg/dL (1.6-2.3); Phosphorous 3.0 mg/dL (2.5-4.5); Potassium 3.5 mmol/L (3.4-5.1); Sodium 133 mmol/L (137-145)
--- NOTE | 2025-05-17 08:05 | P.PN_ITS ---
Subjective Subjective Date Patient Seen: 05/17/25 Interval history: Sepsis secondary to a gastric perforation and leak into peritoneum of gastric contents around gastrostomy tube History of present illness: 05/09: Patient is seen at the request of Dr. Naqvi of surgery. Apparently the patient arrived last night with a question of PEG tube dysfunction. A PEG tube was replaced in the ED but was not functioning as expected after placement. The patient was admitted by surgery to the [facility] and this morning taken to the OR for investigation. Prior to this, I was alerted of the patient's clinical status and I did initiate lab tests, blood cultures, IV fluids, and IV cefepime for possible sepsis. [place] [address] with a normal lactic acid. In the OR, the PEG to appeared to be in a false passage. The gastrostomy channel was closed and a J-tube was placed. The peritoneum was washed out. It did not appear grossly that tube feeds were in the peritoneum and the patient was subsequently brought to the ICU where he was on norepinephrine through a peripheral IV and appeared to be very dry with no urine output after 2 L of fluids in the OR. The patient has a noncuffed tracheostomy in place, and severe skin injury to the sacrum including 1 area with possible induration and a wound which is about 2-3 cm in diameter. See media photos. General surgery was alerted to the condition of the back at this time. Micro was reviewed this patient has had MRSA and Pseudomonas in sputum in the past. He was at high risk for MDR infections. He was awake, and moaning, but unable to follow commands or track. 05/10: Patient is minimally responsive white count 56047 92% neutrophils VBG 7.25 pCO2 46 PO2 37 sodium 139 potassium 3.5 chloride 110 CO2 19 BUN 19 creatinine 0.54 Chest x-ray: There is a tracheostomy tube seen in place. Lungs and pleura: Significant volume loss is seen on the left side. There is left-sided interstitial prominence. There is blunting of the left costophrenic angle. 05/11: Patient is receiving chest physiotherapy there is improvement in the lung sounds on the left patient is more animated and regards with eyes 05/12: Secretions clearing with chest physiotherapy patient appears alert is nonverbal regards with eyes only 05/13: Patient is more alert good response to chest physiotherapy resumed tube feeding and is tolerating per J-tube sputum cultures came back: 05/15: Experienced significant GI bleed yesterday with hemoglobin of 7.0, up to 8.6 with unit blood transfusion. This morning's hemoglobin is blocked by poor access so a PICC line is being placed. EGD and colonoscopy were planned by General surgery but overnight the patient experienced hypotension into the 70s systolic so is now on low-dose Levophed. Also the Colyte prep through the J- tube has not produced significant rectal output yet. The white blood count is pending. He remains on a D5 infusion after blood sugars dropped in the 60s overnight. He is on room air through his trach mask. He remains on cefepime and vancomycin. 05/16: No further active bleeding noted. The patient remains mildly hypotensive. His Levophed was stopped with blood pressure 83/46, and MAP 62. He is making good clear yellow urine output with evidence of significant 3rd spacing in arms and legs. He is awake and nods yes and no to questions, denies pain. 05/17: The hemoglobin dropped again below 8 without any outward signs of ongoing GI bleeding. He was resumed on TPN last night. He remains quite edematous from the anasarca/low albumin oncotic pressures. He continues to have liquid stools. His total IV fluid rate right now is between 80 and 90. Narrative Exam Narrative: Cachectic, pale and chronically ill in appearance . Asleep and does not respond to voice or touch. Trach mask in place Very weak respiratory effort CTAB Heart sounds distant, RRR without murmur His abdomen is flat, and non tender to palpation. A J-tube is in place. Extremities are atrophied and there is puffiness of the hands Large area of skin pressure injury over the sacrum and lower back as well as a wound in the right paraspinal area above the pelvis. See media photos for this. Not visualized today. Padded boots on heels. Electric Wheelchair in the room. Assessment & Plan Assessment & Plan narrative: Peg tube in false lumen, removed, Closure of gastrostomy track and placement of J-tube, active. * Appreciate surgery expertise * Tube feeding reached maintenance rate on 05/14 before stopped due to pending EGD/Colonoscopy GI Bleed, not present on admission, Active * Hgb dropped to 7.0 on 05/14. Up to 8.6 with 1 unit PRBC. Follow. * Hemoglobin 7.6 on 05/17. Iron infusion ordered. MCV is just below 80. * IV Pantoprazole, stopped Eliquis. * EGD/Colonoscopy were considered but without overt signs of continued bleeding have been on hold. Septic shock with source unclear, differential of lung with history of MRSA and Pseudomonas versus peritonitis verses back infected wounds. Active. * Blood Cultures negative * Continue cefepime for respiratory Pseudomonas/MSSA/Citrobacter * vancomycin for MSSA in sputum and for possible wound infection * Levophed drip had to be resumed yesterday. Continues on 82 mL/hr IV total including the TPN. Severe volume depletion, active. * Switched back to IVF from TF when made NPO for EGD/Colonoscopy on 05/14 * He has significant peripheral edema but is intravascularly volume depleted, and we will continue to gently give small boluses of 250 mL NS for to bring blood pressure and MEP over 65 for upcoming potential EGD procedure Severe soft tissue injury of sacrum with area of induration and a wound of 2 cm in diameter, active. * Wound care team: Stage III pressure ulcer over left iliac crest, no sign of infection. Plan to start daily wet to wet dressing changes with Dakin's solution with Opti-foam outer dressing to help with pressure offloading. Continue pressure offloading with air mattress, turn frequently, and start protein supplementation. Follow up at wound center after discharge for further evaluation and treatment. * Diflucan 4 days 200 mg (until 05/16) Chronic uncuffed tracheostomy, active. * Trach management Pseudobulbar palsy, and spastic left hemiparesis with long-term tracheostomy and history of recurrent aspiration pneumonia. 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 * Prognosis is guarded. * Discussed with PCP, Dr. Marshall. Disposition: * Attending is Dr. Naqvi surgery * ICU status * Disposition likely to be SNF rehab. Exam Vital Signs (past 8 hours): - 05/17/25 00:15 05/17/25 00:15 05/17/25 00:30 Pulse Rate 67 67 Respiratory Rate 17 18 Blood Pressure 90/57 L Pulse Oximetry 100 100 05/17/25 00:30 05/17/25 00:45 05/17/25 00:45 Pulse Rate 68 Respiratory Rate 18 Blood Pressure 90/58 L 94/61 Pulse Oximetry 100 05/17/25 01:00 05/17/25 01:00 05/17/25 01:15 Pulse Rate 72 Respiratory Rate 18 Blood Pressure 104/68 87/56 L Pulse Oximetry 100 05/17/25 01:15 05/17/25 01:30 05/17/25 01:30 Pulse Rate 67 68 Respiratory Rate 17 17 Blood Pressure 94/60 Pulse Oximetry 100 100 05/17/25 01:45 05/17/25 01:45 05/17/25 02:00 Pulse Rate 68 71 Respiratory Rate 18 18 Blood Pressure 95/64 Pulse Oximetry 100 100 05/17/25 02:00 05/17/25 02:15 05/17/25 02:15 Pulse Rate 70 Respiratory Rate 18 Blood Pressure 95/61 95/62 Pulse Oximetry 100 05/17/25 02:30 05/17/25 02:30 05/17/25 02:45 Pulse Rate 71 74 Respiratory Rate 19 20 Blood Pressure 96/61 Pulse Oximetry 100 100 05/17/25 02:45 05/17/25 03:00 05/17/25 03:00 Pulse Rate 75 Respiratory Rate 20 Blood Pressure 101/67 109/74 Pulse Oximetry 96 05/17/25 03:15 05/17/25 03:15 05/17/25 03:30 Pulse Rate 73 Respiratory Rate 21 Blood Pressure 102/68 116/75 Pulse Oximetry 93 05/17/25 03:30 05/17/25 03:45 05/17/25 03:45 Pulse Rate 78 81 Respiratory Rate 22 29 H Blood Pressure 114/75 Pulse Oximetry 88 L 100 05/17/25 04:00 05/17/25 04:00 05/17/25 04:15 Pulse Rate 77 77 Respiratory Rate 18 22 Blood Pressure 92/61 Pulse Oximetry 96 98 05/17/25 04:15 05/17/25 04:30 05/17/25 04:30 Pulse Rate 77 Respiratory Rate 22 Blood Pressure 93/63 98/66 Pulse Oximetry 97 05/17/25 04:45 05/17/25 04:45 05/17/25 05:00 Pulse Rate 79 82 Respiratory Rate 24 25 H Blood Pressure 115/78 Pulse Oximetry 90 L 98 05/17/25 05:00 05/17/25 05:15 05/17/25 05:16 Pulse Rate 81 76 Respiratory Rate 25 H 24 Blood Pressure 110/73 Pulse Oximetry 97 98 05/17/25 05:16 05/17/25 05:30 05/17/25 05:30 Pulse Rate 75 Respiratory Rate 22 Blood Pressure 85/51 L 89/58 L Pulse Oximetry 99 05/17/25 05:45 05/17/25 05:45 05/17/25 06:00 Pulse Rate 73 72 Respiratory Rate 18 18 Blood Pressure 91/59 L Pulse Oximetry 99 98 05/17/25 06:00 05/17/25 06:15 05/17/25 06:15 Pulse Rate 75 Respiratory Rate 19 Blood Pressure 91/56 L 97/64 Pulse Oximetry 98 05/17/25 06:30 05/17/25 06:30 05/17/25 06:45 Pulse Rate 77 74 Respiratory Rate 20 20 Blood Pressure 102/61 Pulse Oximetry 97 99 05/17/25 06:45 05/17/25 07:00 05/17/25 07:00 Pulse Rate 72 Respiratory Rate 18 Blood Pressure 98/61 98/64 Pulse Oximetry 99 05/17/25 07:15 05/17/25 07:15 05/17/25 07:30 Pulse Rate 71 71 Respiratory Rate 18 18 Blood Pressure 99/64 Pulse Oximetry 99 100 05/17/25 07:30 Pulse Rate Respiratory Rate Blood Pressure 106/66 Pulse Oximetry Fraction of Inspired Oxygen 21 SaO2/FiO2 Ratio 466 Oxygen Delivery Method Trach Collar Oxygen Flow Rate 8 Objective Labs 05/17/25 11:40 05/17/25 05:16 Labs: Laboratory Results - last 24 hr 05/09/25 05/16/25 05/16/25 10:25 10:24 11:05 Hgb 7.9 L Hct 24.4 L Sodium 135 L Potassium 3.1 L Chloride 106 Carbon Dioxide 24 BUN 6 L Creatinine 0.29 L Estimated GFR > 60 BUN/Creatinine Ratio 20.7 Glucose 78 POC Whole Bld Glucose 69 L Calcium 7.2 L Phosphorus 2.4 L Magnesium 1.6 RBC Magnesium 5.2 Total Bilirubin 0.2 AST 22 ALT 12 Alkaline Phosphatase 71 Total Protein 5.0 L Albumin 2.1 L Globulin 2.9 Albumin/Globulin Ratio 0.7 L Triglycerides 94 05/16/25 05/16/25 05/17/25 17:51 21:01 05:16 Hgb 7.9 L 8.3 L Hct 24.5 L 25.3 L Sodium 133 L Potassium 3.5 Chloride 105 Carbon Dioxide 28 BUN 5 L Creatinine 0.32 L Estimated GFR > 60 BUN/Creatinine Ratio 15.6 Glucose 102 H POC Whole Bld Glucose 61 L Calcium 7.6 L Phosphorus 3.0 Magnesium 1.9 RBC Magnesium Total Bilirubin AST ALT Alkaline Phosphatase Total Protein Albumin Globulin Albumin/Globulin Ratio Triglycerides [facility] Medical History Excessive cerumen in both ear canals Chronic anticoagulation Iron deficiency anemia History of pulmonary embolism Status post radiation therapy Chronic anticoagulation Tracheostomy in place Sacral decubitus ulcer, stage III Protein calorie malnutrition Hyponatremia Dysphagia Recurrent aspiration pneumonia Depression, major, recurrent Jejunostomy tube present Influenza A Anemia Pneumonia 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 Father No problems noted. Social History marital status: unmarried,single details: Lives independantly with part-time caregivers household members: none lives independently: Yes occupational status: disabled Smoking Status: Never smoker alcohol intake: never substance use type: marijuana Assessment & Plan Time-Based Coding :: [TOTAL MINUTES] spent with patient and on the chart (including review of chart, obtaining history, exam, reviewing outside data, placing orders, documenting exam and treatment plan, and counseling patient) on [DATE].
[2025-05-17] MEDS: ALBUTEROL/IPRATROPIUM 3 ML AMPUL INH ×2 (08:39→17:32)
[2025-05-17] MEDS: PANTOPRAZOLE 40 MG VIAL IV (08:54)
[2025-05-17] MEDS: CEFEPIME 2 GM in SODIUM CHLORIDE 0.9% 100 ML IV ×2 (08:54→21:40)
[2025-05-17] MEDS: BACLOFEN 10 MG TABLET 5 MG TUBE (08:55)
[2025-05-17] MEDS: NEOMYCIN/POLYMYXIN/BACITRA UD OINT 1 EACH TOP ×2 (08:55→21:46)
[2025-05-17] MEDS: SODIUM HYPOCHLORITE 473 ML SOLUTION TOP (08:56)
[2025-05-17] MEDS: SODIUM CHLORIDE 0.9% FLUSH 10 ML IV ×2 (08:56→21:41)
--- NOTE | 2025-05-17 10:22 | PM.PN.IH.1 ---
Subjective Subjective Date Patient Seen: 05/17/25 Time Patient Seen: 10:22 Interval history: No new melena or hematochezia Still on Levophed Hemoglobin is up slightly this morning Exam Vital Signs (past 8 hours): - 05/17/25 02:30 05/17/25 02:30 05/17/25 02:45 Temperature Pulse Rate 71 74 Respiratory Rate 19 20 Blood Pressure 96/61 Pulse Oximetry 100 100 Oxygen Delivery Method Fraction of Inspired Oxygen 05/17/25 02:45 05/17/25 03:00 05/17/25 03:00 Temperature Pulse Rate 75 Respiratory Rate 20 Blood Pressure 101/67 109/74 Pulse Oximetry 96 Oxygen Delivery Method Fraction of Inspired Oxygen 05/17/25 03:15 05/17/25 03:15 05/17/25 03:30 Temperature Pulse Rate 73 Respiratory Rate 21 Blood Pressure 102/68 116/75 Pulse Oximetry 93 Oxygen Delivery Method Fraction of Inspired Oxygen 05/17/25 03:30 05/17/25 03:45 05/17/25 03:45 Temperature Pulse Rate 78 81 Respiratory Rate 22 29 H Blood Pressure 114/75 Pulse Oximetry 88 L 100 Oxygen Delivery Method Fraction of Inspired Oxygen 05/17/25 04:00 05/17/25 04:00 05/17/25 04:15 Temperature Pulse Rate 77 77 Respiratory Rate 18 22 Blood Pressure 92/61 Pulse Oximetry 96 98 Oxygen Delivery Method Fraction of Inspired Oxygen 05/17/25 04:15 05/17/25 04:30 05/17/25 04:30 Temperature Pulse Rate 77 Respiratory Rate 22 Blood Pressure 93/63 98/66 Pulse Oximetry 97 Oxygen Delivery Method Fraction of Inspired Oxygen 05/17/25 04:45 05/17/25 04:45 05/17/25 05:00 Temperature Pulse Rate 79 82 Respiratory Rate 24 25 H Blood Pressure 115/78 Pulse Oximetry 90 L 98 Oxygen Delivery Method Fraction of Inspired Oxygen 05/17/25 05:00 05/17/25 05:15 05/17/25 05:16 Temperature Pulse Rate 81 76 Respiratory Rate 25 H 24 Blood Pressure 110/73 Pulse Oximetry 97 98 Oxygen Delivery Method Fraction of Inspired Oxygen 05/17/25 05:16 05/17/25 05:30 05/17/25 05:30 Temperature Pulse Rate 75 Respiratory Rate 22 Blood Pressure 85/51 L 89/58 L Pulse Oximetry 99 Oxygen Delivery Method Fraction of Inspired Oxygen 05/17/25 05:45 05/17/25 05:45 05/17/25 06:00 Temperature Pulse Rate 73 72 Respiratory Rate 18 18 Blood Pressure 91/59 L Pulse Oximetry 99 98 Oxygen Delivery Method Fraction of Inspired Oxygen 05/17/25 06:00 05/17/25 06:15 05/17/25 06:15 Temperature Pulse Rate 75 Respiratory Rate 19 Blood Pressure 91/56 L 97/64 Pulse Oximetry 98 Oxygen Delivery Method Fraction of Inspired Oxygen 05/17/25 06:30 05/17/25 06:30 05/17/25 06:45 Temperature Pulse Rate 77 74 Respiratory Rate 20 20 Blood Pressure 102/61 Pulse Oximetry 97 99 Oxygen Delivery Method Fraction of Inspired Oxygen 05/17/25 06:45 05/17/25 07:00 05/17/25 07:00 Temperature Pulse Rate 72 Respiratory Rate 18 Blood Pressure 98/61 98/64 Pulse Oximetry 99 Oxygen Delivery Method Fraction of Inspired Oxygen 05/17/25 07:15 05/17/25 07:15 05/17/25 07:30 Temperature Pulse Rate 71 71 Respiratory Rate 18 18 Blood Pressure 99/64 Pulse Oximetry 99 100 Oxygen Delivery Method Fraction of Inspired Oxygen 05/17/25 07:30 05/17/25 07:45 05/17/25 07:45 Temperature Pulse Rate 70 Respiratory Rate 18 Blood Pressure 106/66 104/64 Pulse Oximetry 100 Oxygen Delivery Method Fraction of Inspired Oxygen 05/17/25 08:00 05/17/25 08:00 05/17/25 08:00 Temperature 97.6 F Pulse Rate 70 Respiratory Rate 18 Blood Pressure Pulse Oximetry 100 Oxygen Delivery Method Aerosol Mask Fraction of Inspired Oxygen 05/17/25 08:00 05/17/25 08:15 05/17/25 08:15 Temperature Pulse Rate 71 Respiratory Rate 19 Blood Pressure 102/67 105/81 Pulse Oximetry 100 Oxygen Delivery Method Fraction of Inspired Oxygen 05/17/25 08:30 05/17/25 08:30 05/17/25 08:45 Temperature Pulse Rate 68 69 Respiratory Rate 17 25 H Blood Pressure 102/67 Pulse Oximetry 100 100 Oxygen Delivery Method Fraction of Inspired Oxygen 05/17/25 08:45 05/17/25 09:00 05/17/25 09:00 Temperature Pulse Rate 70 Respiratory Rate 25 H Blood Pressure 101/67 103/71 Pulse Oximetry 96 Oxygen Delivery Method Fraction of Inspired Oxygen 05/17/25 09:11 05/17/25 09:15 05/17/25 09:15 Temperature Pulse Rate 86 73 Respiratory Rate 20 19 Blood Pressure 96/65 Pulse Oximetry 100 100 Oxygen Delivery Method Trach Collar Fraction of Inspired Oxygen 28 05/17/25 09:30 05/17/25 09:30 05/17/25 09:45 Temperature Pulse Rate 70 68 Respiratory Rate 18 18 Blood Pressure 95/62 Pulse Oximetry 100 99 Oxygen Delivery Method Fraction of Inspired Oxygen 05/17/25 09:45 05/17/25 10:00 05/17/25 10:00 Temperature Pulse Rate 68 Respiratory Rate 17 Blood Pressure 95/63 94/60 Pulse Oximetry 100 Oxygen Delivery Method Fraction of Inspired Oxygen 05/17/25 10:15 Temperature Pulse Rate 69 Respiratory Rate 20 Blood Pressure Pulse Oximetry 100 Oxygen Delivery Method Fraction of Inspired Oxygen Fraction of Inspired Oxygen 28 SaO2/FiO2 Ratio 353 Oxygen Delivery Method Trach Collar Oxygen Flow Rate 8 Narrative Exam Narrative: Abdomen is soft, nontender Incision clean dry and intact Objective Labs 05/17/25 05:16 05/17/25 05:16 Labs: Laboratory Results - last 24 hr 05/09/25 05/16/25 05/16/25 10:25 10:24 11:05 Hgb 7.9 L Hct 24.4 L Sodium 135 L Potassium 3.1 L Chloride 106 Carbon Dioxide 24 BUN 6 L Creatinine 0.29 L Estimated GFR > 60 BUN/Creatinine Ratio 20.7 Glucose 78 POC Whole Bld Glucose 69 L Calcium 7.2 L Phosphorus 2.4 L Magnesium 1.6 RBC Magnesium 5.2 Total Bilirubin 0.2 AST 22 ALT 12 Alkaline Phosphatase 71 Total Protein 5.0 L Albumin 2.1 L Globulin 2.9 Albumin/Globulin Ratio 0.7 L Triglycerides 94 05/16/25 05/16/25 05/17/25 17:51 21:01 05:16 Hgb 7.9 L 8.3 L Hct 24.5 L 25.3 L Sodium 133 L Potassium 3.5 Chloride 105 Carbon Dioxide 28 BUN 5 L Creatinine 0.32 L Estimated GFR > 60 BUN/Creatinine Ratio 15.6 Glucose 102 H POC Whole Bld Glucose 61 L Calcium 7.6 L Phosphorus 3.0 Magnesium 1.9 RBC Magnesium Total Bilirubin AST ALT Alkaline Phosphatase Total Protein Albumin Globulin Albumin/Globulin Ratio Triglycerides 05/17/25 08:16 Hgb Hct Sodium Potassium Chloride Carbon Dioxide BUN Creatinine Estimated GFR BUN/Creatinine Ratio Glucose POC Whole Bld Glucose 109 H Calcium Phosphorus Magnesium RBC Magnesium Total Bilirubin AST ALT Alkaline Phosphatase Total Protein Albumin Globulin Albumin/Globulin Ratio Triglycerides PFSH Medical History Excessive cerumen in both ear canals Chronic anticoagulation Iron deficiency anemia History of pulmonary embolism Status post radiation therapy Chronic anticoagulation Tracheostomy in place Sacral decubitus ulcer, stage III Protein calorie malnutrition Hyponatremia Dysphagia Recurrent aspiration pneumonia Depression, major, recurrent Jejunostomy tube present Influenza A Anemia Pneumonia 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 Father No problems noted. Social History marital status: unmarried,single details: Lives independantly with part-time caregivers household members: none lives independently: Yes occupational status: disabled Smoking Status: Never smoker alcohol intake: never substance use type: marijuana Assessment & Plan Assessment and plan (1) PEG tube malfunction: Status: Acute Plan Suspect anemia is primarily of dilutional nature No indication of clinically significant GI hemorrhage at this time We will be available to perform endoscopy if any melena is noted Time-Based Coding :: [TOTAL MINUTES] spent with patient and on the chart (including review of chart, obtaining history, exam, reviewing outside data, placing orders, documenting exam and treatment plan, and counseling patient) on [DATE]. [employer] Document charge(s): No
--- NOTE | 2025-05-17 10:29 | DIET.PN1 ---
Dietary Progress Note Assessment: f/u Per healthcare rounds, dependent on surgery assessment, can re-start tube feeds per surgeon. When tube feeds are restarted, can wean TPN and d/c per protocol. Tube feed order below. Ht: 174.73 cm Wt: 77.111 kg BMI: 25.2 UBW: 160 lb Last BM: 05/17/25 (05/17/25 06:00) MNA: Krishan Score: 9 Diet: 05/15/25 00:01 NPO Diet Diet Modifications: NPO Type: Strict Labs: RBC 3.56 X10^6/uL (4.5-5.9) L 05/15/25 12:15 Hgb 8.3 g/dL (13.5-17.5) L 05/17/25 05:16 Hct 25.3 % (41-53) L 05/17/25 05:16 Creatinine 0.32 mg/dL (0.66-1.25) L 05/17/25 05:16 Lactate 1.2 mmol/L (0.7-2.1) 05/10/25 10:00 Nutrition Diagnosis: -Severe chronic Protein Calorie Malnutrition r/t altered GI tract motility and increased needs (protein) as evidenced by severe muscle wasting in temples and deltoid, severe buccal and orbital subcutaneous fat loss, <60% of estimated protein needs due to malabsorption and wound healing needs for >1 month -Altered GI function r/t changes in GI tract motility as evidenced by previously having copious loose stool, inadequate soluble fiber -Increased nutrient needs (protein) r/t healing needs as evidenced by skin breakdown and wounds Interventions: As directed by surgeon can restart the following TF order: 1. Wean off TPN and d/c per protocol when enteral nutrition able to start. Continuous enteral feeds of Pivot 1.5 starting at 20 mL/hr and advancing as tolerated by 10 mL/hr Q8H until goal rate of 50 mL/hr. Provide banatrol (.39 oz packet with 40 kcals, 2 g fiber) TID-4x/day per packet instructions. Flush 120 mL Q4H of free water. Goal rate + banatrol provides 1920 kcals and 112 g protein. Feeds+flushes+flushes with banatrol provides 8270-2265 mL fluids daily meeting needs. 2. Upon discharge: Patient tolerates [employer] Peptide 1.5 formula at home. Recommend pt to return back to this formula to prevent diarrhea and further skin breakdown and for best absorption with pt's hx of malabsorption and protein calorie malnutrition. The patient's discharge formula recommendations are as follows: -Continuous [employer] Peptide 1.5 via J-tube at goal rate of 55 mL/hr. -Provide banatrol (.39 oz packet with 40 kcals, 2 g fiber) TID to 4x per day per packet instructions. -Flush 120 mL of free water 6 times daily. -Due to wound healing, recommend 1 ProSource (45 mL with 11 grams protein) added to patients J-tube 1 time daily per packet instructions. Start upon discharge and continue for 2 weeks to meet protein needs required. -Transition to nocturnal or cyclic feeds based on patient/family preference with assistance from [facility] dietitian team 3. Follow up with outpatient dietitian for management of feeds and tolerance. Dietary referral still in place. Will coordinate with scheduling team for 2-3 week check in after d/c. EER: 1900 kcals (25 kcals/kg per BMI) 100-115 g protein (1.25-1.5 g/kg per ICU and wounds), 9191-8845 mL fluids (1mL per kcal vs 30 mL/kg) Monitoring/Evaluations: labs, BMs, tolerance, rate, d/c plan Electronically Signed by: Flakita Hopkins 05/17/25 10:29 Clinical Dietitian [address] [id number]
[2025-05-17 11:45] LABS: Hematocrit 23.7 % (41-53); Hemoglobin 7.6 g/dL (13.5-17.5)
[2025-05-17] MEDS: SODIUM CHLORIDE 0.9% 1,000 ML 42 ML IV (13:20)
[2025-05-17] MEDS: NOREPINEPHRINE BITARTRATE/D5W 4 MG/250 ML PLAST..BAG 11.567 MG IV (17:11)
[2025-05-17] MEDS: FAT EMULSIONS 50 GM/250 ML EMULSION IV (17:18)
[2025-05-17] MEDS: AA 5 %/CALCIUM/LYTES/DEXT 20 % 1,500 ML with MULTIVITAMIN 10 ML, TRACE ELEMENTS 1 ML, T... 63 ML IV (17:18)
[2025-05-17] MEDS: SODIUM FERRIC GLUCONAT/SUCROSE 125 MG in SODIUM CHLORIDE 0.9% 100 ML 110 MG IV (17:19)
[2025-05-17] MEDS: NYSTATIN CREAM 30 GM 1 APPLIC TOP (17:46)
[2025-05-17] MEDS: SERTRALINE 50 MG TABLET 200 MG TUBE (21:41)
[2025-05-18] VITALS (112 sets, daily range): BP systolic 76–130; BP diastolic 50–81; PULSE 70–92; RESP 0–29; TEMP 36.2–36.5; O2SAT 92–100
[2025-05-18 06:12] LABS: Hematocrit 23.5 % (41-53); Hemoglobin 7.8 g/dL (13.5-17.5)
[2025-05-18 06:21] LABS: Blood Urea Nitrogen 8 mg/dL (9-20); Calcium 7.6 mg/dL (8.4-10.2); Carbon Dioxide 29 mmol/L (22-32); Chloride 101 mmol/L (98-107); Estimated Glomerular Filt Rate > 60 mL/min (>60); Glucose 113 mg/dL (70-99); HEMOLYSIS < 15 (0-50); Magnesium 1.6 mg/dL (1.6-2.3); Phosphorous 2.6 mg/dL (2.5-4.5); Potassium 3.5 mmol/L (3.4-5.1); Sodium 133 mmol/L (137-145)
[2025-05-18] MEDS: ALBUTEROL/IPRATROPIUM 3 ML AMPUL INH ×2 (07:46→19:35)
--- NOTE | 2025-05-18 07:59 | P.PN_ITS ---
Subjective Subjective Date Patient Seen: 05/18/25 Interval history: Sepsis secondary to a gastric perforation and leak into peritoneum of gastric contents around gastrostomy tube History of present illness: 05/09: Patient is seen at the request of Dr. Naqvi of surgery. Apparently the patient arrived last night with a question of PEG tube dysfunction. A PEG tube was replaced in the ED but was not functioning as expected after placement. The patient was admitted by surgery to the [facility] and this morning taken to the OR for investigation. Prior to this, I was alerted of the patient's clinical status and I did initiate lab tests, blood cultures, IV fluids, and IV cefepime for possible sepsis. [place] [address] with a normal lactic acid. In the OR, the PEG to appeared to be in a false passage. The gastrostomy channel was closed and a J-tube was placed. The peritoneum was washed out. It did not appear grossly that tube feeds were in the peritoneum and the patient was subsequently brought to the ICU where he was on norepinephrine through a peripheral IV and appeared to be very dry with no urine output after 2 L of fluids in the OR. The patient has a noncuffed tracheostomy in place, and severe skin injury to the sacrum including 1 area with possible induration and a wound which is about 2-3 cm in diameter. See media photos. General surgery was alerted to the condition of the back at this time. Micro was reviewed this patient has had MRSA and Pseudomonas in sputum in the past. He was at high risk for MDR infections. He was awake, and moaning, but unable to follow commands or track. 05/10: Patient is minimally responsive white count 26004 92% neutrophils VBG 7.25 pCO2 46 PO2 37 sodium 139 potassium 3.5 chloride 110 CO2 19 BUN 19 creatinine 0.54 Chest x-ray: There is a tracheostomy tube seen in place. Lungs and pleura: Significant volume loss is seen on the left side. There is left-sided interstitial prominence. There is blunting of the left costophrenic angle. 05/11: Patient is receiving chest physiotherapy there is improvement in the lung sounds on the left patient is more animated and regards with eyes 05/12: Secretions clearing with chest physiotherapy patient appears alert is nonverbal regards with eyes only 05/13: Patient is more alert good response to chest physiotherapy resumed tube feeding and is tolerating per J-tube sputum cultures came back: 05/15: Experienced significant GI bleed yesterday with hemoglobin of 7.0, up to 8.6 with unit blood transfusion. This morning's hemoglobin is blocked by poor access so a PICC line is being placed. EGD and colonoscopy were planned by General surgery but overnight the patient experienced hypotension into the 70s systolic so is now on low-dose Levophed. Also the Colyte prep through the J- tube has not produced significant rectal output yet. The white blood count is pending. He remains on a D5 infusion after blood sugars dropped in the 60s overnight. He is on room air through his trach mask. He remains on cefepime and vancomycin. 05/16: No further active bleeding noted. The patient remains mildly hypotensive. His Levophed was stopped with blood pressure 83/46, and MAP 62. He is making good clear yellow urine output with evidence of significant 3rd spacing in arms and legs. He is awake and nods yes and no to questions, denies pain. 05/17: The hemoglobin dropped again below 8 without any outward signs of ongoing GI bleeding. He was resumed on TPN last night. He remains quite edematous from the anasarca/low albumin oncotic pressures. He continues to have liquid stools. His total IV fluid rate right now is between 80 and 90. 05/18: Hemoglobin 7.8 today. Creatinine 0.29 and potassium 3.5. He is transitioning from the TPN back to tube feeding today. The possibility of transfer to a long-term acute care unit in [place] was brought up and discussed. Unfortunately his insurance is not accepted at that location. His blood pressure dropped to 79/52 when the mild dose of Levophed was stopped so that was resumed. He is discussed with Dr. Escalona today. Narrative Exam Narrative: Cachectic, pale and chronically ill in appearance . Asleep and does not respond to voice or touch. Trach mask in place Very weak respiratory effort CTAB Heart sounds distant, RRR without murmur His abdomen is flat, and non tender to palpation. A J-tube is in place. Extremities are atrophied and there is puffiness of the hands Large area of skin pressure injury over the sacrum and lower back as well as a wound in the right paraspinal area above the pelvis. See media photos for this. Not visualized today. Padded boots on heels. Electric Wheelchair in the room. Assessment & Plan Assessment & Plan narrative: Peg tube in false lumen, removed, Closure of gastrostomy track and placement of J-tube, active. * Appreciate surgery expertise * Tube feeding reached maintenance rate on 05/14 before stopped due to pending EGD/ColonoscopyGI Bleed, not present on admission, Active * Hgb dropped to 7.0 on 05/14. Up to 8.6 with 1 unit PRBC. Follow. * Hemoglobin 7.6 on 05/17. Iron infusion on 05/17. MCV is just below 80. * IV Pantoprazole, stopped Eliquis. * EGD/Colonoscopy were considered but without overt signs of continued bleeding have been on hold. Septic shock with source unclear, differential of lung with history of MRSA and Pseudomonas versus peritonitis verses back infected wounds. Active. * Blood Cultures negative * Continue cefepime for respiratory Pseudomonas/MSSA/Citrobacter * vancomycin for MSSA in sputum and for possible wound infection * Levophed drip had to be resumed 05/16. Continues on 82 mL/hr IV total including the TPN. Transition back to J-tube from the TPN on 05/18. * Blood pressure 79/52 when off Levophed trial on 05/18 Severe volume depletion, active. * Switched back to IVF from TF when made NPO for EGD/Colonoscopy on 05/14 * He has significant peripheral edema but is intravascularly volume depleted, and we will continue to gently give small boluses of 250 mL NS for to bring blood pressure and MEP over 65 for upcoming potential EGD procedure Severe soft tissue injury of sacrum with area of induration and a wound of 2 cm in diameter, active. * Wound care team: Stage III pressure ulcer over left iliac crest, no sign of infection. Plan to start daily wet to wet dressing changes with Dakin's solution with Opti-foam outer dressing to help with pressure offloading. Continue pressure offloading with air mattress, turn frequently, and start protein supplementation. Follow up at wound center after discharge for further evaluation and treatment. * Diflucan 4 days 200 mg (until 05/16) Chronic uncuffed tracheostomy, active. * Trach management Pseudobulbar palsy, and spastic left hemiparesis with long-term tracheostomy and history of recurrent aspiration pneumonia. Chronic medical conditions: * Iron deficiency anemia * History of pulmonary embolism * Status post radiation therapy * Chronic anticoagulation * Tracheostomy in place * Sacral decubitus ulcer, stage III * Protein calorie malnutrition * Hyponatremia * Dysphagia * Recurrent aspiration pneumonia * Depression, major, recurrent * Jejunostomy tube present * Anemia * Pneumonia * Spastic hemiparesis of left nondominant side due to cerebrovascular diseaseCode status: FULL CODE * Mother is proxy decision maker. * Prognosis is guarded. * Discussed with PCP, Dr. Marshall. Disposition: * Attending is Dr. Naqvi surgery * ICU status * Disposition likely to be SNF rehab. Apparently his insurance is not accepted at the LT. Exam Vital Signs (past 8 hours): - 05/18/25 00:00 05/18/25 00:00 05/18/25 00:00 Temperature Pulse Rate 85 Respiratory Rate 21 Blood Pressure 88/52 L Pulse Oximetry 98 Oxygen Delivery Method Trach Collar 05/18/25 00:15 05/18/25 00:15 05/18/25 00:30 Temperature Pulse Rate 80 Respiratory Rate 21 Blood Pressure 94/63 91/60 Pulse Oximetry 99 Oxygen Delivery Method 05/18/25 00:30 05/18/25 00:45 05/18/25 00:45 Temperature Pulse Rate 75 76 Respiratory Rate 19 19 Blood Pressure 97/59 L Pulse Oximetry 99 99 Oxygen Delivery Method 05/18/25 01:00 05/18/25 01:00 05/18/25 01:15 Temperature Pulse Rate 75 76 Respiratory Rate 19 19 Blood Pressure 93/59 L Pulse Oximetry 98 98 Oxygen Delivery Method 05/18/25 01:15 05/18/25 01:30 05/18/25 01:30 Temperature Pulse Rate 74 Respiratory Rate 19 Blood Pressure 96/61 94/62 Pulse Oximetry 99 Oxygen Delivery Method 05/18/25 01:45 05/18/25 01:45 05/18/25 02:00 Temperature Pulse Rate 74 75 Respiratory Rate 19 19 Blood Pressure 93/60 Pulse Oximetry 99 99 Oxygen Delivery Method 05/18/25 02:00 05/18/25 02:15 05/18/25 02:15 Temperature Pulse Rate 75 Respiratory Rate 19 Blood Pressure 94/59 L 93/57 L Pulse Oximetry 99 Oxygen Delivery Method 05/18/25 02:30 05/18/25 02:30 05/18/25 02:45 Temperature Pulse Rate 76 Respiratory Rate 19 Blood Pressure 94/58 L 97/58 L Pulse Oximetry 99 Oxygen Delivery Method 05/18/25 02:45 05/18/25 03:00 05/18/25 03:00 Temperature Pulse Rate 77 76 Respiratory Rate 19 19 Blood Pressure 94/60 Pulse Oximetry 99 99 Oxygen Delivery Method 05/18/25 03:15 05/18/25 03:15 05/18/25 03:30 Temperature Pulse Rate 77 75 Respiratory Rate 19 19 Blood Pressure 97/59 L Pulse Oximetry 99 99 Oxygen Delivery Method 05/18/25 03:30 05/18/25 03:45 05/18/25 03:45 Temperature Pulse Rate 76 Respiratory Rate 0 L Blood Pressure 94/62 95/62 Pulse Oximetry 99 Oxygen Delivery Method 05/18/25 04:00 05/18/25 04:00 05/18/25 04:00 Temperature Pulse Rate 75 Respiratory Rate 10 L Blood Pressure 92/60 Pulse Oximetry 99 Oxygen Delivery Method Trach Collar 05/18/25 04:15 05/18/25 04:15 05/18/25 04:30 Temperature Pulse Rate 78 Respiratory Rate 7 L Blood Pressure 107/68 111/74 Pulse Oximetry 99 Oxygen Delivery Method 05/18/25 04:30 05/18/25 04:45 05/18/25 04:45 Temperature Pulse Rate 79 82 Respiratory Rate 20 22 Blood Pressure 117/78 Pulse Oximetry 99 92 Oxygen Delivery Method 05/18/25 05:00 05/18/25 05:00 05/18/25 05:15 Temperature Pulse Rate 78 Respiratory Rate 26 H Blood Pressure 101/67 99/64 Pulse Oximetry 98 Oxygen Delivery Method 05/18/25 05:15 05/18/25 05:30 05/18/25 05:30 Temperature Pulse Rate 78 79 Respiratory Rate 22 21 Blood Pressure 93/61 Pulse Oximetry 99 99 Oxygen Delivery Method 05/18/25 05:45 05/18/25 05:45 05/18/25 06:00 Temperature Pulse Rate 78 83 Respiratory Rate 22 19 Blood Pressure 99/65 Pulse Oximetry 99 99 Oxygen Delivery Method 05/18/25 06:00 05/18/25 06:15 05/18/25 06:15 Temperature Pulse Rate 78 Respiratory Rate 21 Blood Pressure 89/54 L 94/61 Pulse Oximetry 100 Oxygen Delivery Method 05/18/25 06:30 05/18/25 06:30 05/18/25 06:45 Temperature Pulse Rate 79 79 Respiratory Rate 20 21 Blood Pressure 94/63 Pulse Oximetry 100 100 Oxygen Delivery Method 05/18/25 06:45 05/18/25 07:00 05/18/25 07:00 Temperature 97.5 F L Pulse Rate 78 Respiratory Rate 21 Blood Pressure 96/64 Pulse Oximetry 100 Oxygen Delivery Method 05/18/25 07:00 05/18/25 07:15 05/18/25 07:15 Temperature Pulse Rate 78 Respiratory Rate 20 Blood Pressure 98/65 95/61 Pulse Oximetry 100 Oxygen Delivery Method 05/18/25 07:30 05/18/25 07:30 Temperature Pulse Rate 80 Respiratory Rate 21 Blood Pressure 108/70 Pulse Oximetry 100 Oxygen Delivery Method Fraction of Inspired Oxygen 28 SaO2/FiO2 Ratio 353 Oxygen Delivery Method Trach Collar Oxygen Flow Rate 8 Objective Labs 05/18/25 05:58 05/18/25 05:58 Labs: Laboratory Results - last 24 hr 05/14/25 05/17/25 05/17/25 14:15 08:16 11:40 Hgb 7.6 L Hct 23.7 L Sodium Potassium Chloride Carbon Dioxide BUN Creatinine Estimated GFR BUN/Creatinine Ratio Glucose POC Whole Bld Glucose 109 H Calcium Phosphorus Magnesium Crossmatch See Detail 05/17/25 05/17/25 05/18/25 12:25 18:30 00:46 Hgb Hct Sodium Potassium Chloride Carbon Dioxide BUN Creatinine Estimated GFR BUN/Creatinine Ratio Glucose POC Whole Bld Glucose 109 H 109 H 115 H Calcium Phosphorus Magnesium Crossmatch 05/18/25 05:58 Hgb 7.8 L Hct 23.5 L Sodium 133 L Potassium 3.5 Chloride 101 Carbon Dioxide 29 BUN 8 L Creatinine 0.29 L Estimated GFR > 60 BUN/Creatinine Ratio 27.6 H Glucose 113 H POC Whole Bld Glucose Calcium 7.6 L Phosphorus 2.6 Magnesium 1.6 Crossmatch [facility] Medical History Excessive cerumen in both ear canals Chronic anticoagulation Iron deficiency anemia History of pulmonary embolism Status post radiation therapy Chronic anticoagulation Tracheostomy in place Sacral decubitus ulcer, stage III Protein calorie malnutrition Hyponatremia Dysphagia Recurrent aspiration pneumonia Depression, major, recurrent Jejunostomy tube present Influenza A Anemia Pneumonia 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 Father No problems noted. Social History marital status: unmarried,single details: Lives independantly with part-time caregivers household members: none lives independently: Yes occupational status: disabled Smoking Status: Never smoker alcohol intake: never substance use type: marijuana Assessment & Plan Time-Based Coding :: [TOTAL MINUTES] spent with patient and on the chart (including review of chart, obtaining history, exam, reviewing outside data, placing orders, documenting exam and treatment plan, and counseling patient) on [DATE].
[2025-05-18] MEDS: NEOMYCIN/POLYMYXIN/BACITRA UD OINT 1 EACH TOP ×2 (08:29→22:23)
[2025-05-18] MEDS: PANTOPRAZOLE 40 MG VIAL IV (08:29)
[2025-05-18] MEDS: CEFEPIME 2 GM in SODIUM CHLORIDE 0.9% 100 ML IV ×2 (08:29→21:41)
[2025-05-18] MEDS: BACLOFEN 10 MG TABLET 5 MG TUBE (08:29)
[2025-05-18] MEDS: SODIUM CHLORIDE 0.9% FLUSH 10 ML IV ×2 (08:30→22:24)
[2025-05-18] MEDS: SODIUM HYPOCHLORITE 473 ML SOLUTION TOP (08:30)
[2025-05-18] MEDS: NYSTATIN CREAM 30 GM 1 APPLIC TOP ×2 (08:31→22:23)
[2025-05-18] MEDS: SODIUM CHLORIDE 0.9% 1,000 ML 42 ML IV (08:47)
--- NOTE | 2025-05-18 09:16 | P.PN_ITS ---
Subjective Subjective Date Patient Seen: 05/18/25 Time Patient Seen: 09:16 Interval history: Remains on Levo .04, attempts to wean off results in MAP 50s TF on hold, TPN Exam Vital Signs (past 8 hours): - 05/18/25 01:30 05/18/25 01:30 05/18/25 01:45 Temperature Pulse Rate 74 74 Respiratory Rate 19 19 Blood Pressure 94/62 Pulse Oximetry 99 99 Oxygen Delivery Method 05/18/25 01:45 05/18/25 02:00 05/18/25 02:00 Temperature Pulse Rate 75 Respiratory Rate 19 Blood Pressure 93/60 94/59 L Pulse Oximetry 99 Oxygen Delivery Method 05/18/25 02:15 05/18/25 02:15 05/18/25 02:30 Temperature Pulse Rate 75 76 Respiratory Rate 19 19 Blood Pressure 93/57 L Pulse Oximetry 99 99 Oxygen Delivery Method 05/18/25 02:30 05/18/25 02:45 05/18/25 02:45 Temperature Pulse Rate 77 Respiratory Rate 19 Blood Pressure 94/58 L 97/58 L Pulse Oximetry 99 Oxygen Delivery Method 05/18/25 03:00 05/18/25 03:00 05/18/25 03:15 Temperature Pulse Rate 76 77 Respiratory Rate 19 19 Blood Pressure 94/60 Pulse Oximetry 99 99 Oxygen Delivery Method 05/18/25 03:15 05/18/25 03:30 05/18/25 03:30 Temperature Pulse Rate 75 Respiratory Rate 19 Blood Pressure 97/59 L 94/62 Pulse Oximetry 99 Oxygen Delivery Method 05/18/25 03:45 05/18/25 03:45 05/18/25 04:00 Temperature Pulse Rate 76 75 Respiratory Rate 0 L 10 L Blood Pressure 95/62 Pulse Oximetry 99 99 Oxygen Delivery Method 05/18/25 04:00 05/18/25 04:00 05/18/25 04:15 Temperature Pulse Rate Respiratory Rate Blood Pressure 92/60 107/68 Pulse Oximetry Oxygen Delivery Method Trach Collar 05/18/25 04:15 05/18/25 04:30 05/18/25 04:30 Temperature Pulse Rate 78 79 Respiratory Rate 7 L 20 Blood Pressure 111/74 Pulse Oximetry 99 99 Oxygen Delivery Method 05/18/25 04:45 05/18/25 04:45 05/18/25 05:00 Temperature Pulse Rate 82 78 Respiratory Rate 22 26 H Blood Pressure 117/78 Pulse Oximetry 92 98 Oxygen Delivery Method 05/18/25 05:00 05/18/25 05:15 05/18/25 05:15 Temperature Pulse Rate 78 Respiratory Rate 22 Blood Pressure 101/67 99/64 Pulse Oximetry 99 Oxygen Delivery Method 05/18/25 05:30 05/18/25 05:30 05/18/25 05:45 Temperature Pulse Rate 79 Respiratory Rate 21 Blood Pressure 93/61 99/65 Pulse Oximetry 99 Oxygen Delivery Method 05/18/25 05:45 05/18/25 06:00 05/18/25 06:00 Temperature Pulse Rate 78 83 Respiratory Rate 22 19 Blood Pressure 89/54 L Pulse Oximetry 99 99 Oxygen Delivery Method 05/18/25 06:15 05/18/25 06:15 05/18/25 06:30 Temperature Pulse Rate 78 Respiratory Rate 21 Blood Pressure 94/61 94/63 Pulse Oximetry 100 Oxygen Delivery Method 05/18/25 06:30 05/18/25 06:45 05/18/25 06:45 Temperature Pulse Rate 79 79 Respiratory Rate 20 21 Blood Pressure 96/64 Pulse Oximetry 100 100 Oxygen Delivery Method 05/18/25 07:00 05/18/25 07:00 05/18/25 07:00 Temperature 97.5 F L Pulse Rate 78 Respiratory Rate 21 Blood Pressure 98/65 Pulse Oximetry 100 Oxygen Delivery Method 05/18/25 07:15 05/18/25 07:15 05/18/25 07:30 Temperature Pulse Rate 78 Respiratory Rate 20 Blood Pressure 95/61 108/70 Pulse Oximetry 100 Oxygen Delivery Method 05/18/25 07:30 05/18/25 07:45 05/18/25 07:45 Temperature Pulse Rate 80 77 Respiratory Rate 21 21 Blood Pressure 97/63 Pulse Oximetry 100 99 Oxygen Delivery Method 05/18/25 07:59 05/18/25 08:00 05/18/25 08:00 Temperature Pulse Rate 76 Respiratory Rate 26 H 20 Blood Pressure 101/65 Pulse Oximetry 100 100 Oxygen Delivery Method 05/18/25 08:15 05/18/25 08:15 Temperature Pulse Rate 80 Respiratory Rate 19 Blood Pressure 98/67 Pulse Oximetry 99 Oxygen Delivery Method Fraction of Inspired Oxygen 28 SaO2/FiO2 Ratio 353 Oxygen Delivery Method Trach Collar Oxygen Flow Rate 8 Objective Labs 05/18/25 05:58 05/18/25 05:58 Labs: Laboratory Results - last 24 hr 05/14/25 05/17/25 05/17/25 14:15 11:40 12:25 Hgb 7.6 L Hct 23.7 L Sodium Potassium Chloride Carbon Dioxide BUN Creatinine Estimated GFR BUN/Creatinine Ratio Glucose POC Whole Bld Glucose 109 H Calcium Phosphorus Magnesium Crossmatch See Detail 05/17/25 05/18/25 05/18/25 18:30 00:46 05:58 Hgb 7.8 L Hct 23.5 L Sodium 133 L Potassium 3.5 Chloride 101 Carbon Dioxide 29 BUN 8 L Creatinine 0.29 L Estimated GFR > 60 BUN/Creatinine Ratio 27.6 H Glucose 113 H POC Whole Bld Glucose 109 H 115 H Calcium 7.6 L Phosphorus 2.6 Magnesium 1.6 Crossmatch [facility] Medical History Excessive cerumen in both ear canals Chronic anticoagulation Iron deficiency anemia History of pulmonary embolism Status post radiation therapy Chronic anticoagulation Tracheostomy in place Sacral decubitus ulcer, stage III Protein calorie malnutrition Hyponatremia Dysphagia Recurrent aspiration pneumonia Depression, major, recurrent Jejunostomy tube present Influenza A Anemia Pneumonia 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 Father No problems noted. Social History marital status: unmarried,single details: Lives independantly with part-time caregivers household members: none lives independently: Yes occupational status: disabled Smoking Status: Never smoker alcohol intake: never substance use type: marijuana Assessment & Plan Assessment and plan (1) PEG tube malfunction: Status: Acute Plan Restart TF at 10cc/hr and advance to goal as tolerated Monitor H/H; 7.8 this morning and stable Continue PPI D/W Dr. Lockhart, RN Time-Based Coding :: [TOTAL MINUTES] spent with patient and on the chart (including review of chart, obtaining history, exam, reviewing outside data, placing orders, documenting exam and treatment plan, and counseling patient) on [DATE]. 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
[2025-05-18] MEDS: MIDODRINE HCL 5 MG TABLET 10 MG TUBE ×2 (10:48→18:28)
--- NOTE | 2025-05-18 15:24 | CM.DPC ---
DCP Cont: Per , request SW attempt [facility] as pt having ongoing medical complexities and has not made much improvement but does not feel pt is a candidate for Hospice at this time. ROBIN called Elizabeth at [facility] [phone] and unfortunately they do not take classic straight Medicaid. Amira Salas MSW
[2025-05-18] MEDS: DEXTROSE 5%-0.9% NS 1,000 ML 64 ML IV (18:26)
[2025-05-18] MEDS: NOREPINEPHRINE BITARTRATE/D5W 4 MG/250 ML PLAST..BAG 8.675 MG IV (18:28)
[2025-05-18] MEDS: DEXTROSE 50 % IN WATER 25 GM/50 ML SYRINGE IV (18:57)
[2025-05-18] MEDS: SERTRALINE 50 MG TABLET 200 MG TUBE (21:48)
[2025-05-18] MEDS: ACETAMINOPHEN IV 1,000 MG/100 ML VIAL 400 MG IV (22:22)
[2025-05-19] VITALS (112 sets, daily range): BP systolic 82–129; BP diastolic 51–85; PULSE 71–101; RESP 17–31; TEMP 36.1–36.8; O2SAT 94–100
[2025-05-19] MEDS: MIDODRINE HCL 5 MG TABLET 10 MG TUBE ×3 (02:36→18:03)
[2025-05-19] MEDS: ALBUTEROL/IPRATROPIUM 3 ML AMPUL INH ×2 (07:29→19:07)
--- NOTE | 2025-05-19 08:01 | P.PN_ITS ---
Subjective Subjective Date Patient Seen: 05/19/25 Interval history: History of present illness: 05/09: Patient is seen at the request of Dr. Naqiv of surgery. Apparently the patient arrived last night with a question of PEG tube dysfunction. A PEG tube was replaced in the ED but was not functioning as expected after placement. The patient was admitted by surgery to the [facility] and this morning taken to the OR for investigation. Prior to this, I was alerted of the patient's clinical status and I did initiate lab tests, blood cultures, IV fluids, and IV cefepime for possible sepsis. [place] [address] with a normal lactic acid. In the OR, the PEG to appeared to be in a false passage. The gastrostomy channel was closed and a J-tube was placed. The peritoneum was washed out. It did not appear grossly that tube feeds were in the peritoneum and the patient was subsequently brought to the ICU where he was on norepinephrine through a peripheral IV and appeared to be very dry with no urine output after 2 L of fluids in the OR. The patient has a noncuffed tracheostomy in place, and severe skin injury to the sacrum including 1 area with possible induration and a wound which is about 2-3 cm in diameter. See media photos. General surgery was alerted to the condition of the back at this time. Micro was reviewed this patient has had MRSA and Pseudomonas in sputum in the past. He was at high risk for MDR infections. He was awake, and moaning, but unable to follow commands or track. 05/10: Patient is minimally responsive white count 82398 92% neutrophils VBG 7.25 pCO2 46 PO2 37 sodium 139 potassium 3.5 chloride 110 CO2 19 BUN 19 creatinine 0.54 Chest x-ray: There is a tracheostomy tube seen in place. Lungs and pleura: Significant volume loss is seen on the left side. There is left-sided interstitial prominence. There is blunting of the left costophrenic angle. 05/11: Patient is receiving chest physiotherapy there is improvement in the lung sounds on the left patient is more animated and regards with eyes 05/12: Secretions clearing with chest physiotherapy patient appears alert is nonverbal regards with eyes only 05/13: Patient is more alert good response to chest physiotherapy resumed tube feeding and is tolerating per J-tube sputum cultures came back: 05/15: Experienced significant GI bleed yesterday with hemoglobin of 7.0, up to 8.6 with unit blood transfusion. This morning's hemoglobin is blocked by poor access so a PICC line is being placed. EGD and colonoscopy were planned by General surgery but overnight the patient experienced hypotension into the 70s systolic so is now on low-dose Levophed. Also the Colyte prep through the J- tube has not produced significant rectal output yet. The white blood count is pending. He remains on a D5 infusion after blood sugars dropped in the 60s overnight. He is on room air through his trach mask. He remains on cefepime and vancomycin. 05/16: No further active bleeding noted. The patient remains mildly hypotensive. His Levophed was stopped with blood pressure 83/46, and MAP 62. He is making good clear yellow urine output with evidence of significant 3rd spacing in arms and legs. He is awake and nods yes and no to questions, denies pain. 05/17: The hemoglobin dropped again below 8 without any outward signs of ongoing GI bleeding. He was resumed on TPN last night. He remains quite edematous from the anasarca/low albumin oncotic pressures. He continues to have liquid stools. His total IV fluid rate right now is between 80 and 90. 05/18: Hemoglobin 7.8 today. Creatinine 0.29 and potassium 3.5. He is transitioning from the TPN back to tube feeding today. The possibility of transfer to a long-term acute care unit in [place] was brought up and discussed. Unfortunately his insurance is not accepted at that location. His blood pressure dropped to 79/52 when the mild dose of Levophed was stopped so that was resumed. He is discussed with Dr. Escalona today. 05/19: Hemoglobin 8.1 today. Blood sugars range from 92 up to 196. He is now off the TPN and back on trickle feeds/titration with the J-tube currently at 10 mL/hr. He continues to receive IV fluid at 64 mL/hr. He no longer has the impressive levels of peripheral edema/third-spacing/puffiness in his extremities. He is much more alert today. Yesterday he was able to visit with his mother and obviously enjoyed their interaction, attempting to talk. He was started back on his midodrine yesterday and the Levophed was weaned off but had to be resumed. Exam: Cachectic, pale and chronically ill in appearance. Awake with minimal effort to engage. Trach mask in place Very weak respiratory effort CTAB Heart sounds distant, RRR without murmur His abdomen is flat, and non tender to palpation. A J-tube is in place. Extremities are atrophied and there is now only trace puffiness of the hands Large area of skin pressure injury over the sacrum and lower back as well as a wound in the right paraspinal area above the pelvis. See media photos for this. Not visualized today. Padded boots on heels. Electric Wheelchair in the room. Assessment & Plan Assessment & Plan narrative: Peg tube in false lumen, removed, Closure of gastrostomy track and placement of J-tube, active. * Tube feeding reached maintenance rate on 05/14 before stopped due to pending EGD/Colonoscopy. Resumed TF on 05/17, up to 20ml/h on 05/19. GI Bleed, not present on admission, Active * Hgb dropped to 7.0 on 05/14. Up to 8.6 with 1 unit PRBC. Follow. * Hemoglobin 7.6 on 05/17. Iron infusion on 05/17. MCV is just below 80. * Hgb 8.1 on 05/19 * IV Pantoprazole, stopped Eliquis. * EGD/Colonoscopy were considered but without overt signs of continued bleeding have been on hold. Septic shock with source unclear, differential of lung with history of MRSA and Pseudomonas versus peritonitis verses back infected wounds. Active. * Blood Cultures negative * Continue cefepime for Pseudomonas/MSSA/Citrobacter in sputum * vancomycin for MSSA in sputum and for possible wound infection * Levophed drip had to be resumed 05/16. Continues on 82 mL/hr IV total including the TPN. Transition back to J-tube from the TPN on 05/18. * Blood pressure 79/52 when off Levophed trial on 05/18 Severe volume depletion, active. * Switched back to IVF from TF when made NPO for EGD/Colonoscopy on 05/14 * He has significant peripheral edema but is intravascularly volume depleted, and we will continue to gently give small boluses of 250 mL NS for to bring blood pressure and MEP over 65 for upcoming potential EGD procedure Severe soft tissue injury of sacrum with area of induration and a wound of 2 cm in diameter, active. * Wound care team: Stage III pressure ulcer over left iliac crest, no sign of infection. Plan to start daily wet to wet dressing changes with Dakin's solution with Opti-foam outer dressing to help with pressure offloading. Continue pressure offloading with air mattress, turn frequently, and start protein supplementation. Follow up at wound center after discharge for further evaluation and treatment. * Diflucan 4 days 200 mg (completed 05/16) Chronic uncuffed tracheostomy, active. * Trach management Pseudobulbar palsy, and spastic left hemiparesis with long-term tracheostomy and history of recurrent aspiration pneumonia. Chronic medical conditions: * Iron deficiency anemia * History of pulmonary embolism * Status post radiation therapy * Chronic anticoagulation * Tracheostomy in place * Sacral decubitus ulcer, stage III * Protein calorie malnutrition * Hyponatremia * Dysphagia * Recurrent aspiration pneumonia * Depression, major, recurrent * Jejunostomy tube present * Anemia * Pneumonia * Spastic hemiparesis of left nondominant side due to cerebrovascular diseaseCode status: FULL CODE * Mother is proxy decision maker. * Prognosis is guarded. * Discussed with PCP, Dr. Marshall. Disposition: * Attending is Dr. Naqvi surgery * ICU status * Disposition likely to be SNF rehab. Apparently his insurance is not accepted at the LTAC in [place]. Exam Vital Signs (past 8 hours): - 05/19/25 00:05 05/19/25 00:05 05/19/25 00:10 Temperature Pulse Rate 75 Respiratory Rate 19 Blood Pressure 92/59 L 107/68 Pulse Oximetry 100 Oxygen Delivery Method Fraction of Inspired Oxygen 05/19/25 00:10 05/19/25 00:15 05/19/25 00:15 Temperature Pulse Rate 74 74 Respiratory Rate 19 19 Blood Pressure 96/62 Pulse Oximetry 100 100 Oxygen Delivery Method Fraction of Inspired Oxygen 05/19/25 00:19 05/19/25 00:20 05/19/25 00:20 Temperature Pulse Rate 73 74 Respiratory Rate 18 19 Blood Pressure 103/66 Pulse Oximetry 100 100 Oxygen Delivery Method Fraction of Inspired Oxygen 05/19/25 00:30 05/19/25 00:40 05/19/25 00:40 Temperature Pulse Rate 74 76 Respiratory Rate 19 23 Blood Pressure 129/85 Pulse Oximetry 100 100 Oxygen Delivery Method Fraction of Inspired Oxygen 05/19/25 00:45 05/19/25 01:00 05/19/25 01:00 Temperature Pulse Rate 81 76 Respiratory Rate 20 23 Blood Pressure Pulse Oximetry 100 99 Oxygen Delivery Method Aerosol Mask Trach Collar Fraction of Inspired Oxygen 05/19/25 01:00 05/19/25 01:15 05/19/25 01:20 Temperature Pulse Rate 77 77 Respiratory Rate 20 19 Blood Pressure 112/72 Pulse Oximetry 99 99 Oxygen Delivery Method Fraction of Inspired Oxygen 05/19/25 01:20 05/19/25 01:30 05/19/25 01:40 Temperature Pulse Rate 76 Respiratory Rate 19 Blood Pressure 96/66 98/64 Pulse Oximetry 99 Oxygen Delivery Method Fraction of Inspired Oxygen 05/19/25 01:40 05/19/25 01:45 05/19/25 02:00 Temperature Pulse Rate 75 75 75 Respiratory Rate 19 19 19 Blood Pressure Pulse Oximetry 99 99 99 Oxygen Delivery Method Fraction of Inspired Oxygen 05/19/25 02:00 05/19/25 02:15 05/19/25 02:20 Temperature Pulse Rate 74 Respiratory Rate 19 Blood Pressure 89/56 L 91/68 Pulse Oximetry 99 Oxygen Delivery Method Fraction of Inspired Oxygen 05/19/25 02:20 05/19/25 02:30 05/19/25 02:40 Temperature Pulse Rate 75 75 Respiratory Rate 20 19 Blood Pressure 108/71 Pulse Oximetry 100 100 Oxygen Delivery Method Fraction of Inspired Oxygen 05/19/25 02:40 05/19/25 02:45 05/19/25 03:00 Temperature Pulse Rate 75 73 Respiratory Rate 20 19 Blood Pressure 116/76 Pulse Oximetry 100 99 Oxygen Delivery Method Fraction of Inspired Oxygen 05/19/25 03:00 05/19/25 03:15 05/19/25 03:20 Temperature Pulse Rate 73 74 Respiratory Rate 19 19 Blood Pressure 106/70 Pulse Oximetry 99 100 Oxygen Delivery Method Fraction of Inspired Oxygen 05/19/25 03:20 05/19/25 03:30 05/19/25 03:40 Temperature Pulse Rate 74 74 Respiratory Rate 19 19 Blood Pressure 120/82 Pulse Oximetry 100 99 Oxygen Delivery Method Fraction of Inspired Oxygen 05/19/25 03:40 05/19/25 03:45 05/19/25 04:00 Temperature Pulse Rate 71 72 Respiratory Rate 21 19 Blood Pressure 110/72 Pulse Oximetry 99 99 Oxygen Delivery Method Fraction of Inspired Oxygen 05/19/25 04:00 05/19/25 04:15 05/19/25 04:20 Temperature Pulse Rate 74 74 74 Respiratory Rate 19 20 19 Blood Pressure Pulse Oximetry 99 99 99 Oxygen Delivery Method Fraction of Inspired Oxygen 05/19/25 04:20 05/19/25 04:30 05/19/25 04:40 Temperature Pulse Rate 74 Respiratory Rate 19 Blood Pressure 115/79 114/78 Pulse Oximetry 99 Oxygen Delivery Method Fraction of Inspired Oxygen 05/19/25 04:40 05/19/25 04:45 05/19/25 05:00 Temperature 97.2 F L Pulse Rate 75 74 Respiratory Rate 21 21 Blood Pressure Pulse Oximetry 99 99 Oxygen Delivery Method Fraction of Inspired Oxygen 05/19/25 05:00 05/19/25 05:00 05/19/25 05:00 Temperature Pulse Rate 77 Respiratory Rate 21 Blood Pressure 99/67 Pulse Oximetry 99 Oxygen Delivery Method Aerosol Mask Trach Collar Fraction of Inspired Oxygen 05/19/25 05:15 05/19/25 05:20 05/19/25 05:20 Temperature Pulse Rate 76 76 Respiratory Rate 21 22 Blood Pressure 106/68 Pulse Oximetry 99 99 Oxygen Delivery Method Fraction of Inspired Oxygen 05/19/25 05:30 05/19/25 05:40 05/19/25 05:40 Temperature Pulse Rate 75 75 Respiratory Rate 22 24 Blood Pressure 106/68 Pulse Oximetry 99 99 Oxygen Delivery Method Fraction of Inspired Oxygen 05/19/25 05:45 05/19/25 05:50 05/19/25 05:50 Temperature Pulse Rate 76 76 Respiratory Rate 22 23 Blood Pressure 101/65 Pulse Oximetry 99 99 Oxygen Delivery Method Fraction of Inspired Oxygen 05/19/25 05:55 05/19/25 05:55 05/19/25 06:00 Temperature Pulse Rate 75 Respiratory Rate 23 Blood Pressure 103/67 99/61 Pulse Oximetry 99 Oxygen Delivery Method Fraction of Inspired Oxygen 05/19/25 06:00 05/19/25 06:05 05/19/25 06:05 Temperature Pulse Rate 74 78 Respiratory Rate 25 H 26 H Blood Pressure 104/65 Pulse Oximetry 99 98 Oxygen Delivery Method Fraction of Inspired Oxygen 05/19/25 06:10 05/19/25 06:10 05/19/25 06:15 Temperature Pulse Rate 87 Respiratory Rate 27 H Blood Pressure 104/71 116/73 Pulse Oximetry 97 Oxygen Delivery Method Fraction of Inspired Oxygen 05/19/25 06:15 05/19/25 06:19 05/19/25 06:24 Temperature 98.2 F Pulse Rate 84 Respiratory Rate 29 H Blood Pressure 89/55 L Pulse Oximetry 97 Oxygen Delivery Method Fraction of Inspired Oxygen 05/19/25 06:24 05/19/25 06:30 05/19/25 06:30 Temperature Pulse Rate 77 76 Respiratory Rate 26 H 26 H Blood Pressure 88/57 L Pulse Oximetry 98 98 Oxygen Delivery Method Fraction of Inspired Oxygen 05/19/25 06:45 05/19/25 07:30 Temperature Pulse Rate 75 72 Respiratory Rate 27 H Blood Pressure Pulse Oximetry 99 99 Oxygen Delivery Method Trach Collar Fraction of Inspired Oxygen 28 Fraction of Inspired Oxygen 28 SaO2/FiO2 Ratio 353 Oxygen Delivery Method Trach Collar Oxygen Flow Rate 8 Objective Labs 05/19/25 08:25 05/18/25 05:58 Labs: Laboratory Results - last 24 hr 05/18/25 05/18/25 05/18/25 11:42 18:09 18:40 POC Whole Bld Glucose 107 H 64 L 67 L 05/18/25 05/18/25 05/19/25 18:53 19:17 00:18 POC Whole Bld Glucose 67 L 196 H D 80 D 05/19/25 06:17 POC Whole Bld Glucose 92 PFSH Medical History Excessive cerumen in both ear canals Chronic anticoagulation Iron deficiency anemia History of pulmonary embolism Status post radiation therapy Chronic anticoagulation Tracheostomy in place Sacral decubitus ulcer, stage III Protein calorie malnutrition Hyponatremia Dysphagia Recurrent aspiration pneumonia Depression, major, recurrent Jejunostomy tube present Influenza A Anemia Pneumonia 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 Father No problems noted. Social History marital status: unmarried,single details: Lives independantly with part-time caregivers household members: none lives independently: Yes occupational status: disabled Smoking Status: Never smoker alcohol intake: never substance use type: marijuana Assessment & Plan Time-Based Coding :: [TOTAL MINUTES] spent with patient and on the chart (including review of chart, obtaining history, exam, reviewing outside data, placing orders, documenting exam and treatment plan, and counseling patient) on [DATE].
[2025-05-19] MEDS: NYSTATIN CREAM 30 GM 1 APPLIC TOP ×2 (08:36→20:28)
[2025-05-19] MEDS: BACLOFEN 10 MG TABLET 5 MG TUBE (08:36)
[2025-05-19] MEDS: PANTOPRAZOLE 40 MG VIAL IV (08:36)
[2025-05-19] MEDS: NEOMYCIN/POLYMYXIN/BACITRA UD OINT 1 EACH TOP ×2 (08:36→20:28)
[2025-05-19] MEDS: SODIUM CHLORIDE 0.9% FLUSH 10 ML IV ×2 (08:37→20:28)
[2025-05-19] MEDS: SODIUM HYPOCHLORITE 473 ML SOLUTION TOP (08:37)
[2025-05-19] MEDS: NOREPINEPHRINE BITARTRATE/D5W 4 MG/250 ML PLAST..BAG 14.458 MG IV (09:02)
[2025-05-19] MEDS: DEXTROSE 5%-0.9% NS 1,000 ML 64 ML IV ×2 (09:02→20:41)
[2025-05-19 09:06] LABS: Hematocrit 24.4 % (41-53); Hemoglobin 8.1 g/dL (13.5-17.5)
--- NOTE | 2025-05-19 10:36 | PM.PN.IH.1 ---
Subjective Subjective Date Patient Seen: 05/19/25 Time Patient Seen: 10:36 Interval history: Tolerating TF at 10cc/hr Hgb 8.1 +BMs Exam Vital Signs (past 8 hours): - 05/19/25 02:40 05/19/25 02:40 05/19/25 02:45 Temperature Pulse Rate 75 73 Respiratory Rate 20 19 Blood Pressure 108/71 Pulse Oximetry 100 99 Oxygen Delivery Method Fraction of Inspired Oxygen 05/19/25 03:00 05/19/25 03:00 05/19/25 03:15 Temperature Pulse Rate 73 74 Respiratory Rate 19 19 Blood Pressure 116/76 Pulse Oximetry 99 100 Oxygen Delivery Method Fraction of Inspired Oxygen 05/19/25 03:20 05/19/25 03:20 05/19/25 03:30 Temperature Pulse Rate 74 74 Respiratory Rate 19 19 Blood Pressure 106/70 Pulse Oximetry 100 99 Oxygen Delivery Method Fraction of Inspired Oxygen 05/19/25 03:40 05/19/25 03:40 05/19/25 03:45 Temperature Pulse Rate 71 72 Respiratory Rate 21 19 Blood Pressure 120/82 Pulse Oximetry 99 99 Oxygen Delivery Method Fraction of Inspired Oxygen 05/19/25 04:00 05/19/25 04:00 05/19/25 04:15 Temperature Pulse Rate 74 74 Respiratory Rate 19 20 Blood Pressure 110/72 Pulse Oximetry 99 99 Oxygen Delivery Method Fraction of Inspired Oxygen 05/19/25 04:20 05/19/25 04:20 05/19/25 04:30 Temperature Pulse Rate 74 74 Respiratory Rate 19 19 Blood Pressure 115/79 Pulse Oximetry 99 99 Oxygen Delivery Method Fraction of Inspired Oxygen 05/19/25 04:40 05/19/25 04:40 05/19/25 04:45 Temperature Pulse Rate 75 74 Respiratory Rate 21 21 Blood Pressure 114/78 Pulse Oximetry 99 99 Oxygen Delivery Method Fraction of Inspired Oxygen 05/19/25 05:00 05/19/25 05:00 05/19/25 05:00 Temperature 97.2 F L Pulse Rate 77 Respiratory Rate 21 Blood Pressure 99/67 Pulse Oximetry 99 Oxygen Delivery Method Fraction of Inspired Oxygen 05/19/25 05:00 05/19/25 05:15 05/19/25 05:20 Temperature Pulse Rate 76 Respiratory Rate 21 Blood Pressure 106/68 Pulse Oximetry 99 Oxygen Delivery Method Aerosol Mask Trach Collar Fraction of Inspired Oxygen 05/19/25 05:20 05/19/25 05:30 05/19/25 05:40 Temperature Pulse Rate 76 75 Respiratory Rate 22 22 Blood Pressure 106/68 Pulse Oximetry 99 99 Oxygen Delivery Method Fraction of Inspired Oxygen 05/19/25 05:40 05/19/25 05:45 05/19/25 05:50 Temperature Pulse Rate 75 76 Respiratory Rate 24 22 Blood Pressure 101/65 Pulse Oximetry 99 99 Oxygen Delivery Method Fraction of Inspired Oxygen 05/19/25 05:50 05/19/25 05:55 05/19/25 05:55 Temperature Pulse Rate 76 75 Respiratory Rate 23 23 Blood Pressure 103/67 Pulse Oximetry 99 99 Oxygen Delivery Method Fraction of Inspired Oxygen 05/19/25 06:00 05/19/25 06:00 05/19/25 06:05 Temperature Pulse Rate 74 Respiratory Rate 25 H Blood Pressure 99/61 104/65 Pulse Oximetry 99 Oxygen Delivery Method Fraction of Inspired Oxygen 05/19/25 06:05 05/19/25 06:10 05/19/25 06:10 Temperature Pulse Rate 78 87 Respiratory Rate 26 H 27 H Blood Pressure 104/71 Pulse Oximetry 98 97 Oxygen Delivery Method Fraction of Inspired Oxygen 05/19/25 06:15 05/19/25 06:15 05/19/25 06:19 Temperature 98.2 F Pulse Rate 84 Respiratory Rate 29 H Blood Pressure 116/73 Pulse Oximetry 97 Oxygen Delivery Method Fraction of Inspired Oxygen 05/19/25 06:24 05/19/25 06:24 05/19/25 06:30 Temperature Pulse Rate 77 76 Respiratory Rate 26 H 26 H Blood Pressure 89/55 L Pulse Oximetry 98 98 Oxygen Delivery Method Fraction of Inspired Oxygen 05/19/25 06:30 05/19/25 06:45 05/19/25 07:00 Temperature Pulse Rate 75 75 Respiratory Rate 27 H 26 H Blood Pressure 88/57 L Pulse Oximetry 99 99 Oxygen Delivery Method Fraction of Inspired Oxygen 05/19/25 07:00 05/19/25 07:15 05/19/25 07:30 Temperature Pulse Rate 79 72 Respiratory Rate 26 H Blood Pressure 91/60 Pulse Oximetry 99 99 Oxygen Delivery Method Trach Collar Fraction of Inspired Oxygen 05/19/25 07:30 05/19/25 07:30 05/19/25 07:45 Temperature Pulse Rate 75 77 Respiratory Rate 25 H 26 H Blood Pressure 94/62 Pulse Oximetry 99 99 Oxygen Delivery Method Fraction of Inspired Oxygen 05/19/25 08:00 05/19/25 08:00 05/19/25 08:15 Temperature Pulse Rate 78 80 Respiratory Rate 26 H 27 H Blood Pressure 89/58 L Pulse Oximetry 98 99 Oxygen Delivery Method Fraction of Inspired Oxygen 05/19/25 08:30 05/19/25 08:30 05/19/25 08:45 Temperature Pulse Rate 81 78 Respiratory Rate 27 H 29 H Blood Pressure 89/51 L Pulse Oximetry 99 99 Oxygen Delivery Method Fraction of Inspired Oxygen 05/19/25 09:00 05/19/25 09:00 05/19/25 09:00 Temperature Pulse Rate 79 Respiratory Rate 24 Blood Pressure 92/60 Pulse Oximetry 99 Oxygen Delivery Method Aerosol Mask Fraction of Inspired Oxygen 05/19/25 09:15 05/19/25 09:30 05/19/25 09:30 Temperature Pulse Rate 81 83 Respiratory Rate 25 H 24 Blood Pressure 100/66 Pulse Oximetry 98 99 Oxygen Delivery Method Fraction of Inspired Oxygen 05/19/25 09:45 05/19/25 10:00 05/19/25 10:00 Temperature Pulse Rate 85 85 Respiratory Rate 25 H 27 H Blood Pressure 103/67 Pulse Oximetry 98 96 Oxygen Delivery Method Fraction of Inspired Oxygen Fraction of Inspired Oxygen 28 SaO2/FiO2 Ratio 353 Oxygen Delivery Method Aerosol Mask Oxygen Flow Rate 8 GI Palpation: soft (NT) Objective Labs 05/19/25 08:25 05/18/25 05:58 Labs: Laboratory Results - last 24 hr 05/18/25 05/18/25 05/18/25 11:42 18:09 18:40 Hgb Hct POC Whole Bld Glucose 107 H 64 L 67 L 05/18/25 05/18/25 05/19/25 18:53 19:17 00:18 Hgb Hct POC Whole Bld Glucose 67 L 196 H D 80 D 05/19/25 05/19/25 06:17 08:25 Hgb 8.1 L Hct 24.4 L POC Whole Bld Glucose 92 PFSH Medical History Excessive cerumen in both ear canals Chronic anticoagulation Iron deficiency anemia History of pulmonary embolism Status post radiation therapy Chronic anticoagulation Tracheostomy in place Sacral decubitus ulcer, stage III Protein calorie malnutrition Hyponatremia Dysphagia Recurrent aspiration pneumonia Depression, major, recurrent Jejunostomy tube present Influenza A Anemia Pneumonia 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 Father No problems noted. Social History marital status: unmarried,single details: Lives independantly with part-time caregivers household members: none lives independently: Yes occupational status: disabled Smoking Status: Never smoker alcohol intake: never substance use type: marijuana Assessment & Plan Assessment and plan (1) PEG tube malfunction: Status: Acute Plan Increase TFs to 20cc/hr as tolerated Having bowel function without blood Hgb stable Continue PPI Time-Based Coding :: [TOTAL MINUTES] spent with patient and on the chart (including review of chart, obtaining history, exam, reviewing outside data, placing orders, documenting exam and treatment plan, and counseling patient) on [DATE]. 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
[2025-05-19] MEDS: ACETAMINOPHEN SUSP 650 MG/20.3 ML UDC PO (15:28)
[2025-05-19] MEDS: SERTRALINE 50 MG TABLET 200 MG TUBE (20:27)
--- NOTE | 2025-05-19 22:17 | PC.NURSE ---
0730 Report received from ilya GREER. Patient awake and alert, nonverbal. Trach noted. J-tube noted and infusing feeding 20 mL/hr with flush at ordered rate. Able to move LUE and BLE, weak. RUE flaccid. PICC line noted to RUE, double lumen infusing Levophed. Heel boots maintained. Call light within reach and bed in lowest position.
[2025-05-20] VITALS (59 sets, daily range): BP systolic 72–113; BP diastolic 50–74; PULSE 64–83; RESP 16–29; TEMP 36.1–36.8; O2SAT 98–100
[2025-05-20] MEDS: MIDODRINE HCL 5 MG TABLET 10 MG TUBE ×3 (02:52→17:55)
[2025-05-20] MEDS: NOREPINEPHRINE BITARTRATE/D5W 4 MG/250 ML PLAST..BAG 14.458 MG IV (06:58)
[2025-05-20] MEDS: ALBUTEROL/IPRATROPIUM 3 ML AMPUL INH ×2 (06:59→19:12)
[2025-05-20 07:33] LABS: Add Manual Diff / Slide Review NO; Hematocrit 22.2 % (41-53); Hemoglobin 7.2 g/dL (13.5-17.5); Lymphocytes Absolute Auto 800 /uL (1100-4500); Mean Corpuscular HGB Conc 32.6 % (30-36); Mean Corpuscular Hemoglobin 25.8 PG (26-34); Mean Corpuscular Volume 79.0 fL (80-100); Platelet Count 314 X10^3/uL (150-400)
[2025-05-20 07:45] LABS: Alanine Aminotransferase 21 IU/L (<50); Albumin 2.1 g/dL (3.5-5.0); Albumin Globulin Ratio 0.7 (1.0-2.8); Alkaline Phosphatase 79 U/L (38-126); Blood Urea Nitrogen 7 mg/dL (9-20); Calcium 7.3 mg/dL (8.4-10.2); Carbon Dioxide 31 mmol/L (22-32); Chloride 98 mmol/L (98-107); Estimated Glomerular Filt Rate > 60 mL/min (>60); Globulin 3.1 g/dL (1.7-4.1); Glucose 289 mg/dL (70-99); HEMOLYSIS < 15 (0-50); Potassium 3.8 mmol/L (3.4-5.1); Sodium 132 mmol/L (137-145); Total Protein 5.2 g/dL (6.3-8.2)
--- NOTE | 2025-05-20 08:26 | P.PN_ITS ---
Subjective Subjective Date Patient Seen: 05/20/25 Interval history: Chief complaint: Sepsis secondary to a gastric perforation and leak into peritoneum of gastric contents around gastrostomy tube History of present illness: 05/09: Patient is seen at the request of Dr. Naqvi of surgery. Apparently the patient arrived last night with a question of PEG tube dysfunction. A PEG tube was replaced in the ED but was not functioning as expected after placement. The patient was admitted by surgery to the [facility] and this morning taken to the OR for investigation. Prior to this, I was alerted of the patient's clinical status and I did initiate lab tests, blood cultures, IV fluids, and IV cefepime for possible sepsis. [place] [id number] with a normal lactic acid. In the OR, the PEG to appeared to be in a false passage. The gastrostomy channel was closed and a J-tube was placed. The peritoneum was washed out. It did not appear grossly that tube feeds were in the peritoneum and the patient was subsequently brought to the ICU where he was on norepinephrine through a peripheral IV and appeared to be very dry with no urine output after 2 L of fluids in the OR. The patient has a noncuffed tracheostomy in place, and severe skin injury to the sacrum including 1 area with possible induration and a wound which is about 2-3 cm in diameter. See media photos. General surgery was alerted to the condition of the back at this time. Micro was reviewed this patient has had MRSA and Pseudomonas in sputum in the past. He was at high risk for MDR infections. He was awake, and moaning, but unable to follow commands or track. 05/10: Patient is minimally responsive white count [id number] 92% neutrophils VBG 7.25 pCO2 46 PO2 37 sodium 139 potassium 3.5 chloride 110 CO2 19 BUN 19 creatinine 0.54 Chest x-ray: There is a tracheostomy tube seen in place. Lungs and pleura: Significant volume loss is seen on the left side. There is left-sided interstitial prominence. There is blunting of the left costophrenic angle. 05/11: Patient is receiving chest physiotherapy there is improvement in the lung sounds on the left patient is more animated and regards with eyes 05/12: Secretions clearing with chest physiotherapy patient appears alert is nonverbal regards with eyes only 05/13: Patient is more alert good response to chest physiotherapy resumed tube feeding and is tolerating per J-tube sputum cultures came back: 05/15: Experienced significant GI bleed yesterday with hemoglobin of 7.0, up to 8.6 with unit blood transfusion. This morning's hemoglobin is blocked by poor access so a PICC line is being placed. EGD and colonoscopy were planned by General surgery but overnight the patient experienced hypotension into the 70s systolic so is now on low-dose Levophed. Also the Colyte prep through the J- tube has not produced significant rectal output yet. The white blood count is pending. He remains on a D5 infusion after blood sugars dropped in the 60s overnight. He is on room air through his trach mask. He remains on cefepime and vancomycin. 05/16: No further active bleeding noted. The patient remains mildly hypotensive. His Levophed was stopped with blood pressure 83/46, and MAP 62. He is making good clear yellow urine output with evidence of significant 3rd spacing in arms and legs. He is awake and nods yes and no to questions, denies pain. 05/17: The hemoglobin dropped again below 8 without any outward signs of ongoing GI bleeding. He was resumed on TPN last night. He remains quite edematous from the anasarca/low albumin oncotic pressures. He continues to have liquid stools. His total IV fluid rate right now is between 80 and 90. 05/18: Hemoglobin 7.8 today. Creatinine 0.29 and potassium 3.5. He is transitioning from the TPN back to tube feeding today. The possibility of transfer to a long-term acute care unit in [place] was brought up and discussed. Unfortunately his insurance is not accepted at that location. His blood pressure dropped to 79/52 when the mild dose of Levophed was stopped so that was resumed. He is discussed with Dr. Escalona today. 05/19: Hemoglobin 8.1 today. Blood sugars range from 92 up to 196. He is now off the TPN and back on trickle feeds/titration with the J-tube currently at 10 mL/hr. He continues to receive IV fluid at 64 mL/hr. He no longer has the impressive levels of peripheral edema/third-spacing/puffiness in his extremities. He is much more alert today. Yesterday he was able to visit with his mother and obviously enjoyed their interaction, attempting to talk. He was started back on his midodrine yesterday and the Levophed was weaned off but had to be resumed. 05/20: Exam: Cachectic, pale and chronically ill in appearance. Awake with minimal effort to engage. Trach mask in place Very weak respiratory effort CTAB Heart sounds distant, RRR without murmur His abdomen is flat, and non tender to palpation. A J-tube is in place. Extremities are atrophied and there is now only trace puffiness of the hands Large area of skin pressure injury over the sacrum and lower back as well as a wound in the right paraspinal area above the pelvis. See media photos for this. Not visualized today. Padded boots on heels. Electric Wheelchair in the room. Assessment & Plan Peg tube in false lumen, removed, Closure of gastrostomy track and placement of J-tube, active. * Tube feeding reached maintenance rate on 05/14 before stopped due to pending EGD/Colonoscopy. Resumed TF on 05/17, up to 20ml/h on 05/19. GI Bleed, not present on admission, Active * Hgb dropped to 7.0 on 05/14. Up to 8.6 with 1 unit PRBC. Follow. * Hemoglobin 7.6 on 05/17. Iron infusion on 05/17. MCV is just below 80. * Hgb 8.1 on 05/19 * IV Pantoprazole, stopped Eliquis. * EGD/Colonoscopy were considered but without overt signs of continued bleeding have been on hold.Septic shock with source unclear, differential of lung with history of MRSA and Pseudomonas versus peritonitis verses back infected wounds. Active. * Blood Cultures negative * Continue cefepime for Pseudomonas/MSSA/Citrobacter in sputum * vancomycin for MSSA in sputum and for possible wound infection * Levophed drip had to be resumed 05/16. Continues on 82 mL/hr IV total including the TPN. Transition back to J-tube from the TPN on 05/18. * Blood pressure 79/52 when off Levophed trial on evere volume depletion, active. * Switched back to IVF from TF when made NPO for EGD/Colonoscopy on 05/14 * He has significant peripheral edema but is intravascularly volume depleted, and we will continue to gently give small boluses of 250 mL NS for to bring blood pressure and MEP over 65 for upcoming potential EGD procedureSevere soft tissue injury of sacrum with area of induration and a wound of 2 cm in diameter, active. * Wound care team: Stage III pressure ulcer over left iliac crest, no sign of infection. Plan to start daily wet to wet dressing changes with Dakin's solution with Opti-foam outer dressing to help with pressure offloading. Continue pressure offloading with air mattress, turn frequently, and start protein supplementation. Follow up at wound center after discharge for further evaluation and treatment. * Diflucan 4 days 200 mg (completed 05/16)Chronic uncuffed tracheostomy, active. * Trach managementPseudobulbar palsy, and spastic left hemiparesis with long- term tracheostomy and history of recurrent aspiration pneumonia. Chronic medical conditions: * Iron deficiency anemia * History of pulmonary embolism * Status post radiation therapy * Chronic anticoagulation * Tracheostomy in place * Sacral decubitus ulcer, stage III * Protein calorie malnutrition * Hyponatremia * Dysphagia * Recurrent aspiration pneumonia * Depression, major, recurrent * Jejunostomy tube present * Anemia * Pneumonia * Spastic hemiparesis of left nondominant side due to cerebrovascular diseaseCode status: FULL CODE * Mother is proxy decision maker. * Prognosis is guarded. * Discussed with PCP, Dr. Marshall.Disposition: * Attending is Dr. Naqvi surgery * ICU status * Disposition likely to be SNF rehab. Apparently his insurance is not accepted at the LTAC in [place]. Exam Vital Signs (past 8 hours): - 05/20/25 00:30 05/20/25 00:30 05/20/25 01:00 Temperature Pulse Rate 71 Respiratory Rate 18 Blood Pressure 96/59 L Pulse Oximetry 100 Oxygen Delivery Method Aerosol Mask Oxygen Flow Rate Fraction of Inspired Oxygen 05/20/25 01:00 05/20/25 01:01 05/20/25 01:01 Temperature Pulse Rate 73 73 Respiratory Rate 19 19 Blood Pressure 113/74 Pulse Oximetry 100 100 Oxygen Delivery Method Oxygen Flow Rate Fraction of Inspired Oxygen 05/20/25 01:30 05/20/25 01:30 05/20/25 02:00 Temperature Pulse Rate 69 Respiratory Rate 18 Blood Pressure 96/63 97/63 Pulse Oximetry 100 Oxygen Delivery Method Oxygen Flow Rate Fraction of Inspired Oxygen 05/20/25 02:00 05/20/25 02:30 05/20/25 02:30 Temperature Pulse Rate 69 70 Respiratory Rate 18 17 Blood Pressure 92/62 Pulse Oximetry 100 100 Oxygen Delivery Method Oxygen Flow Rate Fraction of Inspired Oxygen 05/20/25 03:00 05/20/25 03:00 05/20/25 03:30 Temperature Pulse Rate 71 Respiratory Rate 19 Blood Pressure 99/60 104/68 Pulse Oximetry 100 Oxygen Delivery Method Oxygen Flow Rate Fraction of Inspired Oxygen 05/20/25 03:30 05/20/25 04:00 05/20/25 04:00 Temperature 97.4 F L Pulse Rate 64 66 Respiratory Rate 20 18 Blood Pressure 103/67 Pulse Oximetry 100 100 Oxygen Delivery Method Oxygen Flow Rate 8 Fraction of Inspired Oxygen 05/20/25 04:00 05/20/25 04:30 05/20/25 04:30 Temperature 98.3 F Pulse Rate 64 Respiratory Rate 18 Blood Pressure 98/62 Pulse Oximetry 100 Oxygen Delivery Method Oxygen Flow Rate Fraction of Inspired Oxygen 05/20/25 05:00 05/20/25 05:00 05/20/25 05:00 Temperature Pulse Rate 71 Respiratory Rate 21 Blood Pressure 107/69 Pulse Oximetry 100 Oxygen Delivery Method Aerosol Mask Oxygen Flow Rate Fraction of Inspired Oxygen 05/20/25 05:30 05/20/25 05:30 05/20/25 06:00 Temperature Pulse Rate 68 68 Respiratory Rate 21 20 Blood Pressure 99/61 Pulse Oximetry 100 100 Oxygen Delivery Method Oxygen Flow Rate Fraction of Inspired Oxygen 05/20/25 06:00 05/20/25 06:30 05/20/25 06:30 Temperature Pulse Rate 68 Respiratory Rate 18 Blood Pressure 98/63 105/67 Pulse Oximetry 100 Oxygen Delivery Method Oxygen Flow Rate Fraction of Inspired Oxygen 05/20/25 07:00 05/20/25 07:00 05/20/25 07:00 Temperature Pulse Rate 78 69 Respiratory Rate 20 20 Blood Pressure 102/66 Pulse Oximetry 100 100 Oxygen Delivery Method Trach Collar Oxygen Flow Rate Fraction of Inspired Oxygen 05/20/25 07:30 05/20/25 07:30 05/20/25 08:00 Temperature 97.6 F Pulse Rate 68 Respiratory Rate 22 Blood Pressure 102/66 Pulse Oximetry 100 Oxygen Delivery Method Oxygen Flow Rate Fraction of Inspired Oxygen 05/20/25 08:00 05/20/25 08:00 Temperature Pulse Rate 69 Respiratory Rate 23 Blood Pressure 107/70 Pulse Oximetry 98 Oxygen Delivery Method Oxygen Flow Rate Fraction of Inspired Oxygen Fraction of Inspired Oxygen 28 SaO2/FiO2 Ratio 357 Oxygen Delivery Method Trach Collar Oxygen Flow Rate 8 Objective Labs 05/20/25 07:20 05/20/25 07:20 Labs: Laboratory Results - last 24 hr 05/19/25 05/19/25 05/19/25 08:25 10:58 17:38 WBC RBC Hgb 8.1 L Hct 24.4 L MCV MCH MCHC RDW Plt Count Neut % (Auto) Lymph % (Auto) Winn % (Auto) Eos % (Auto) Baso % (Auto) Neut # (Auto) Lymph # (Auto) Winn # (Auto) Eos # (Auto) Baso # (Auto) Sodium Potassium Chloride Carbon Dioxide BUN Creatinine Estimated GFR BUN/Creatinine Ratio Glucose POC Whole Bld Glucose 110 H 83 Calcium Total Bilirubin AST ALT Alkaline Phosphatase Total Protein Albumin Globulin Albumin/Globulin Ratio 05/20/25 05/20/25 05/20/25 00:36 06:13 07:20 WBC 4.3 L RBC 2.81 L Hgb 7.2 L Hct 22.2 L MCV 79.0 L MCH 25.8 L MCHC 32.6 RDW 17.9 H Plt Count 314 Neut % (Auto) 62.5 Lymph % (Auto) 18.6 L Winn % (Auto) 8.1 Eos % (Auto) 9.4 H Baso % (Auto) 1.4 Neut # (Auto) 2700 Lymph # (Auto) 800 L Winn # (Auto) 300 Eos # (Auto) 400 Baso # (Auto) 100 Sodium 132 L Potassium 3.8 Chloride 98 Carbon Dioxide 31 BUN 7 L Creatinine 0.27 L Estimated GFR > 60 BUN/Creatinine Ratio 25.9 H Glucose 289 H D POC Whole Bld Glucose 78 88 Calcium 7.3 L Total Bilirubin < 0.1 L AST 45 ALT 21 Alkaline Phosphatase 79 Total Protein 5.2 L Albumin 2.1 L Globulin 3.1 Albumin/Globulin Ratio 0.7 L [facility] Medical History Excessive cerumen in both ear canals Chronic anticoagulation Iron deficiency anemia History of pulmonary embolism Status post radiation therapy Chronic anticoagulation Tracheostomy in place Sacral decubitus ulcer, stage III Protein calorie malnutrition Hyponatremia Dysphagia Recurrent aspiration pneumonia Depression, major, recurrent Jejunostomy tube present Influenza A Anemia Pneumonia 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 Father No problems noted. Social History marital status: unmarried,single details: Lives independantly with part-time caregivers household members: none lives independently: Yes occupational status: disabled Smoking Status: Never smoker alcohol intake: never substance use type: marijuana Assessment & Plan Time-Based Coding :: [TOTAL MINUTES] spent with patient and on the chart (including review of chart, obtaining history, exam, reviewing outside data, placing orders, documenting exam and treatment plan, and counseling patient) on [DATE].
--- NOTE | 2025-05-20 08:37 | P.PN_ITS ---
Subjective Subjective Date Patient Seen: 05/20/25 Interval history: Chief complaint: Sepsis secondary to a gastric perforation and leak into peritoneum of gastric contents around gastrostomy tube History of present illness: 05/09: Patient is seen at the request of Dr. Naqvi of surgery. Apparently the patient arrived last night with a question of PEG tube dysfunction. A PEG tube was replaced in the ED but was not functioning as expected after placement. The patient was admitted by surgery to the [facility] and this morning taken to the OR for investigation. Prior to this, I was alerted of the patient's clinical status and I did initiate lab tests, blood cultures, IV fluids, and IV cefepime for possible sepsis. [place] [address] with a normal lactic acid. In the OR, the PEG to appeared to be in a false passage. The gastrostomy channel was closed and a J-tube was placed. The peritoneum was washed out. It did not appear grossly that tube feeds were in the peritoneum and the patient was subsequently brought to the ICU where he was on norepinephrine through a peripheral IV and appeared to be very dry with no urine output after 2 L of fluids in the OR. The patient has a noncuffed tracheostomy in place, and severe skin injury to the sacrum including 1 area with possible induration and a wound which is about 2-3 cm in diameter. See media photos. General surgery was alerted to the condition of the back at this time. Micro was reviewed this patient has had MRSA and Pseudomonas in sputum in the past. He was at high risk for MDR infections. He was awake, and moaning, but unable to follow commands or track. 05/10: Patient is minimally responsive white count 37404 92% neutrophils VBG 7.25 pCO2 46 PO2 37 sodium 139 potassium 3.5 chloride 110 CO2 19 BUN 19 creatinine 0.54 Chest x-ray: There is a tracheostomy tube seen in place. Lungs and pleura: Significant volume loss is seen on the left side. There is left-sided interstitial prominence. There is blunting of the left costophrenic angle. 05/11: Patient is receiving chest physiotherapy there is improvement in the lung sounds on the left patient is more animated and regards with eyes 05/12: Secretions clearing with chest physiotherapy patient appears alert is nonverbal regards with eyes only 05/13: Patient is more alert good response to chest physiotherapy resumed tube feeding and is tolerating per J-tube sputum cultures came back: 05/15: Experienced significant GI bleed yesterday with hemoglobin of 7.0, up to 8.6 with unit blood transfusion. This morning's hemoglobin is blocked by poor access so a PICC line is being placed. EGD and colonoscopy were planned by General surgery but overnight the patient experienced hypotension into the 70s systolic so is now on low-dose Levophed. Also the Colyte prep through the J- tube has not produced significant rectal output yet. The white blood count is pending. He remains on a D5 infusion after blood sugars dropped in the 60s overnight. He is on room air through his trach mask. He remains on cefepime and vancomycin. PICC line placed 05/16: No further active bleeding noted. The patient remains mildly hypotensive. His Levophed was stopped with blood pressure 83/46, and MAP 62. He is making good clear yellow urine output with evidence of significant 3rd spacing in arms and legs. He is awake and nods yes and no to questions, denies pain. 05/17: The hemoglobin dropped again below 8 without any outward signs of ongoing GI bleeding. He was resumed on TPN last night. He remains quite edematous from the anasarca/low albumin oncotic pressures. He continues to have liquid stools. His total IV fluid rate right now is between 80 and 90. 05/18: Hemoglobin 7.8 today. Creatinine 0.29 and potassium 3.5. He is transitioning from the TPN back to tube feeding today. The possibility of transfer to a long-term acute care unit in [place] was brought up and discussed. Unfortunately his insurance is not accepted at that location. His blood pressure dropped to 79/52 when the mild dose of Levophed was stopped so that was resumed. He is discussed with Dr. Escalona today. 05/19: Hemoglobin 8.1 today. Blood sugars range from 92 up to 196. He is now off the TPN and back on trickle feeds/titration with the J-tube currently at 10 mL/hr. He continues to receive IV fluid at 64 mL/hr. He no longer has the impressive levels of peripheral edema/third-spacing/puffiness in his extremities. He is much more alert today. Yesterday he was able to visit with his mother and obviously enjoyed their interaction, attempting to talk. He was started back on his midodrine yesterday and the Levophed was weaned off but had to be resumed. 05/20: Hemoglobin dropped again overnight from 8.1 down to 7.2 white count is 4.3 sodium 132 potassium 3.8 albumin 2.1 tube feeding increased to 20 mL an hour 1. Staphylococcus aureus M.I.C. RX --------- --- * Daptomycin 0.5 S * Vancomycin 1 S * Ciprofloxacin >=8 R * Clindamycin 0.25 S * Doxycycline <=0.5 S * Erythromycin <=0.25 S * Gentamicin <=0.5 S * Levofloxacin 4 R * Linezolid 2 S * Moxifloxacin 2 R * Oxacillin Ap 0.5 S * Rifampin <=0.5 S * Tetracycline <=1 S * Trimethoprim/Sulfamethoxazole <=10 S 2. Pseudomonas aeruginosa M.I.C. RX --------- --- * Cefepime 2 S * Ceftazidime 2 S * Ciprofloxacin 0.12 S * Levofloxacin 0.5 S * Meropenem 1 S * Piperacillin/Tazobactam 8 S 3. Citrobacter freundii M.I.C. RX --------- --- * Amoxicillin/Clavulanate R * Aztreonam <=1 S * Cefepime E-test 0.064 S * Cefuroxime R * Ciprofloxacin <=0.06 S * Ertapenem <=0.12 S * Gentamicin <=1 S * Levofloxacin <=0.12 S * Meropenem <=0.25 S * Tetracycline <=1 S Review of systems: Incapable due to cognitive limitations Physical examination: cachectic and chronically ill in appearance . Regards with eyes He was a tracheostomy in place. Very weak respiratory effort gross rhonchi on left Heart sounds distant His abdomen is flat, and non tender to palpation. A J-tube is in place. Extremities are atrophied and there was no edema. large area of skin pressure injury over the sacrum and lower back as well as a wound in the right paraspinal area above the pelvis. See media photos for this. Assessment and plan: Peg tube in false lumen, removed, Closure of gastrostomy track and placement of J-tube, active. * Appreciate surgery expertise * Tube feeding advancing an hour per surgery Septic shock with source unclear, differential of lung with history of MRSA and Pseudomonas versus peritonitis verses back infected wounds. Active. * Cultures pending * Continue cefepime for respiratory * vancomycin for skin Severe soft tissue injury of sacrum with area of induration and a wound of 2 cm in diameter, active. * Wound care team * Diflucan 4 days 200 mg completed Chronic uncuffed tracheostomy, active. * Trach management Severe volume depletion, active. * Continue intravenous fluids Pseudobulbar palsy, and spastic left hemiparesis with long-term tracheostomy and history of recurrent aspiration pneumonia. 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 * Prognosis is guarded. * Discussed with PCP, Dr. Marshall. Disposition: * Attending transferred over to hospitalist service * ICU status continues on norepinephrine * Disposition it seems apparently from this point forward, that this patient will require chronic hospitalization therefore LTAC we will probably be the only workable disposition option Time-Based Coding :: 45 min spent with patient and on the chart (including review of chart, obtaining history, exam, reviewing outside data, placing orders, documenting exam and treatment plan, and counseling patient) Exam Vital Signs (past 8 hours): - 05/20/25 01:00 05/20/25 01:00 05/20/25 01:01 Temperature Pulse Rate 73 73 Respiratory Rate 19 19 Blood Pressure Pulse Oximetry 100 100 Oxygen Delivery Method Aerosol Mask Oxygen Flow Rate Fraction of Inspired Oxygen 05/20/25 01:01 05/20/25 01:30 05/20/25 01:30 Temperature Pulse Rate 69 Respiratory Rate 18 Blood Pressure 113/74 96/63 Pulse Oximetry 100 Oxygen Delivery Method Oxygen Flow Rate Fraction of Inspired Oxygen 05/20/25 02:00 05/20/25 02:00 05/20/25 02:30 Temperature Pulse Rate 69 70 Respiratory Rate 18 17 Blood Pressure 97/63 Pulse Oximetry 100 100 Oxygen Delivery Method Oxygen Flow Rate Fraction of Inspired Oxygen 05/20/25 02:30 05/20/25 03:00 05/20/25 03:00 Temperature Pulse Rate 71 Respiratory Rate 19 Blood Pressure 92/62 99/60 Pulse Oximetry 100 Oxygen Delivery Method Oxygen Flow Rate Fraction of Inspired Oxygen 05/20/25 03:30 05/20/25 03:30 05/20/25 04:00 Temperature 97.4 F L Pulse Rate 64 Respiratory Rate 20 Blood Pressure 104/68 103/67 Pulse Oximetry 100 Oxygen Delivery Method Oxygen Flow Rate 8 Fraction of Inspired Oxygen 05/20/25 04:00 05/20/25 04:00 05/20/25 04:30 Temperature 98.3 F Pulse Rate 66 Respiratory Rate 18 Blood Pressure 98/62 Pulse Oximetry 100 Oxygen Delivery Method Oxygen Flow Rate Fraction of Inspired Oxygen 05/20/25 04:30 05/20/25 05:00 05/20/25 05:00 Temperature Pulse Rate 64 71 Respiratory Rate 18 21 Blood Pressure 107/69 Pulse Oximetry 100 100 Oxygen Delivery Method Oxygen Flow Rate Fraction of Inspired Oxygen 05/20/25 05:00 05/20/25 05:30 05/20/25 05:30 Temperature Pulse Rate 68 Respiratory Rate 21 Blood Pressure 99/61 Pulse Oximetry 100 Oxygen Delivery Method Aerosol Mask Oxygen Flow Rate Fraction of Inspired Oxygen 05/20/25 06:00 05/20/25 06:00 05/20/25 06:30 Temperature Pulse Rate 68 68 Respiratory Rate 20 18 Blood Pressure 98/63 Pulse Oximetry 100 100 Oxygen Delivery Method Oxygen Flow Rate Fraction of Inspired Oxygen 05/20/25 06:30 05/20/25 07:00 05/20/25 07:00 Temperature Pulse Rate 78 69 Respiratory Rate 20 20 Blood Pressure 105/67 Pulse Oximetry 100 100 Oxygen Delivery Method Trach Collar Oxygen Flow Rate Fraction of Inspired Oxygen 05/20/25 07:00 05/20/25 07:30 05/20/25 07:30 Temperature Pulse Rate 68 Respiratory Rate 22 Blood Pressure 102/66 102/66 Pulse Oximetry 100 Oxygen Delivery Method Oxygen Flow Rate Fraction of Inspired Oxygen 05/20/25 08:00 05/20/25 08:00 05/20/25 08:00 Temperature 97.6 F Pulse Rate 69 Respiratory Rate 23 Blood Pressure 107/70 Pulse Oximetry 98 Oxygen Delivery Method Oxygen Flow Rate Fraction of Inspired Oxygen 05/20/25 08:30 05/20/25 08:30 Temperature Pulse Rate 76 Respiratory Rate 22 Blood Pressure 93/56 L Pulse Oximetry 100 Oxygen Delivery Method Oxygen Flow Rate Fraction of Inspired Oxygen Fraction of Inspired Oxygen 28 SaO2/FiO2 Ratio 357 Oxygen Delivery Method Trach Collar Oxygen Flow Rate 8 Objective Labs 05/20/25 07:20 05/20/25 07:20 Labs: Laboratory Results - last 24 hr 05/19/25 05/19/25 05/19/25 08:25 10:58 17:38 WBC RBC Hgb 8.1 L Hct 24.4 L MCV MCH MCHC RDW Plt Count Neut % (Auto) Lymph % (Auto) [place] % (Auto) Eos % (Auto) Baso % (Auto) Neut # (Auto) Lymph # (Auto) [place] # (Auto) Eos # (Auto) Baso # (Auto) Sodium Potassium Chloride Carbon Dioxide BUN Creatinine Estimated GFR BUN/Creatinine Ratio Glucose POC Whole Bld Glucose 110 H 83 Calcium Total Bilirubin AST ALT Alkaline Phosphatase Total Protein Albumin Globulin Albumin/Globulin Ratio 05/20/25 05/20/25 05/20/25 00:36 06:13 07:20 WBC 4.3 L RBC 2.81 L Hgb 7.2 L Hct 22.2 L MCV 79.0 L MCH 25.8 L MCHC 32.6 RDW 17.9 H Plt Count 314 Neut % (Auto) 62.5 Lymph % (Auto) 18.6 L [place] % (Auto) 8.1 Eos % (Auto) 9.4 H Baso % (Auto) 1.4 Neut # (Auto) 2700 Lymph # (Auto) 800 L [place] # (Auto) 300 Eos # (Auto) 400 Baso # (Auto) 100 Sodium 132 L Potassium 3.8 Chloride 98 Carbon Dioxide 31 BUN 7 L Creatinine 0.27 L Estimated GFR > 60 BUN/Creatinine Ratio 25.9 H Glucose 289 H D POC Whole Bld Glucose 78 88 Calcium 7.3 L Total Bilirubin < 0.1 L AST 45 ALT 21 Alkaline Phosphatase 79 Total Protein 5.2 L Albumin 2.1 L Globulin 3.1 Albumin/Globulin Ratio 0.7 L [facility] Medical History Excessive cerumen in both ear canals Chronic anticoagulation Iron deficiency anemia History of pulmonary embolism Status post radiation therapy Chronic anticoagulation Tracheostomy in place Sacral decubitus ulcer, stage III Protein calorie malnutrition Hyponatremia Dysphagia Recurrent aspiration pneumonia Depression, major, recurrent Jejunostomy tube present Influenza A Anemia Pneumonia 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 Father No problems noted. Social History marital status: unmarried,single details: Lives independantly with part-time caregivers household members: none lives independently: Yes occupational status: disabled Smoking Status: Never smoker alcohol intake: never substance use type: marijuana Assessment & Plan Time-Based Coding :: [TOTAL MINUTES] spent with patient and on the chart (including review of chart, obtaining history, exam, reviewing outside data, placing orders, documenting exam and treatment plan, and counseling patient) on [DATE].
[2025-05-20] MEDS: BACLOFEN 10 MG TABLET 5 MG TUBE (09:16)
[2025-05-20] MEDS: PANTOPRAZOLE 40 MG VIAL IV (09:16)
[2025-05-20] MEDS: NYSTATIN CREAM 30 GM 1 APPLIC TOP ×2 (09:17→21:09)
[2025-05-20] MEDS: SODIUM CHLORIDE 0.9% FLUSH 10 ML IV ×2 (09:17→21:11)
[2025-05-20] MEDS: NEOMYCIN/POLYMYXIN/BACITRA UD OINT 1 EACH TOP ×2 (09:18→21:11)
[2025-05-20] MEDS: SODIUM HYPOCHLORITE 473 ML SOLUTION TOP (09:18)
[2025-05-20] MEDS: ACETAMINOPHEN SUSP 650 MG/20.3 ML UDC PO ×2 (09:20→22:38)
--- NOTE | 2025-05-20 09:55 | P.PN_ITS ---
Subjective Subjective Date Patient Seen: 05/20/25 Time Patient Seen: 10:00 Interval history: Patient is a 45-year-old white male resting in bed patient has a trach mask on place does not answer questions directly postop day 11. Exploratory laparotomy with repair of dislodged PEG tube with replacement with a jejunostomy feeding tube. Patient is on jejunostomy feedings is having bowel movements. WBC is 4.3 hemoglobin is 7.2 hematocrit is 22.2 platelets are 314,000 sodium is 132 potassium 3.8 chloride 98 bicarb is 31 BUN 7 creatinine of 0.27 random blood sugar is 289 normal LFTs. Vitals: Temperature is 97.6? pulse 82 respirations 29 BP is 92/57 on Levophed SaO2 is 99% on trach mask Heart regular rate and rhythm without murmurs lungs poor inspiratory and expiratory effort poor chest wall motion noted occasional rhonchi are noted. Abdomen incision is stable J-tube is in place no sign infection or inflammation. Unable to elicit any peritoneal signs Impression: Postop day 11. Exploratory laparotomy with repair of dislodged PEG tube with jejunostomy feeding tube History of neuromuscular disorder with inability to move. Plan: Continue with current medical management patient is tolerating J-tube feedings no need for further surgical intervention at this time recommend discharging from surgical service to medical service for possible long-term care or LTAC. Exam Vital Signs (past 8 hours): - 05/20/25 02:00 05/20/25 02:00 05/20/25 02:30 Temperature Pulse Rate 69 70 Respiratory Rate 18 17 Blood Pressure 97/63 Pulse Oximetry 100 100 Oxygen Delivery Method Oxygen Flow Rate Fraction of Inspired Oxygen 05/20/25 02:30 05/20/25 03:00 05/20/25 03:00 Temperature Pulse Rate 71 Respiratory Rate 19 Blood Pressure 92/62 99/60 Pulse Oximetry 100 Oxygen Delivery Method Oxygen Flow Rate Fraction of Inspired Oxygen 05/20/25 03:30 05/20/25 03:30 05/20/25 04:00 Temperature 97.4 F L Pulse Rate 64 Respiratory Rate 20 Blood Pressure 104/68 103/67 Pulse Oximetry 100 Oxygen Delivery Method Oxygen Flow Rate 8 Fraction of Inspired Oxygen 05/20/25 04:00 05/20/25 04:00 05/20/25 04:30 Temperature 98.3 F Pulse Rate 66 Respiratory Rate 18 Blood Pressure 98/62 Pulse Oximetry 100 Oxygen Delivery Method Oxygen Flow Rate Fraction of Inspired Oxygen 05/20/25 04:30 05/20/25 05:00 05/20/25 05:00 Temperature Pulse Rate 64 71 Respiratory Rate 18 21 Blood Pressure 107/69 Pulse Oximetry 100 100 Oxygen Delivery Method Oxygen Flow Rate Fraction of Inspired Oxygen 05/20/25 05:00 05/20/25 05:30 05/20/25 05:30 Temperature Pulse Rate 68 Respiratory Rate 21 Blood Pressure 99/61 Pulse Oximetry 100 Oxygen Delivery Method Aerosol Mask Oxygen Flow Rate Fraction of Inspired Oxygen 05/20/25 06:00 05/20/25 06:00 05/20/25 06:30 Temperature Pulse Rate 68 68 Respiratory Rate 20 18 Blood Pressure 98/63 Pulse Oximetry 100 100 Oxygen Delivery Method Oxygen Flow Rate Fraction of Inspired Oxygen 05/20/25 06:30 05/20/25 07:00 05/20/25 07:00 Temperature Pulse Rate 78 69 Respiratory Rate 20 20 Blood Pressure 105/67 Pulse Oximetry 100 100 Oxygen Delivery Method Trach Collar Oxygen Flow Rate Fraction of Inspired Oxygen 28 05/20/25 07:00 05/20/25 07:30 05/20/25 07:30 Temperature Pulse Rate 68 Respiratory Rate 22 Blood Pressure 102/66 102/66 Pulse Oximetry 100 Oxygen Delivery Method Oxygen Flow Rate Fraction of Inspired Oxygen 05/20/25 08:00 05/20/25 08:00 05/20/25 08:00 Temperature 97.6 F Pulse Rate 69 Respiratory Rate 23 Blood Pressure 107/70 Pulse Oximetry 98 Oxygen Delivery Method Oxygen Flow Rate Fraction of Inspired Oxygen 05/20/25 08:30 05/20/25 08:30 05/20/25 09:00 Temperature Pulse Rate 76 75 Respiratory Rate 22 22 Blood Pressure 93/56 L Pulse Oximetry 100 100 Oxygen Delivery Method Oxygen Flow Rate Fraction of Inspired Oxygen 05/20/25 09:00 05/20/25 09:30 05/20/25 09:30 Temperature Pulse Rate 82 Respiratory Rate 29 H Blood Pressure 93/61 92/57 L Pulse Oximetry 99 Oxygen Delivery Method Oxygen Flow Rate Fraction of Inspired Oxygen Fraction of Inspired Oxygen 28 SaO2/FiO2 Ratio 357 Oxygen Delivery Method Trach Collar Oxygen Flow Rate 8 Objective Labs 05/20/25 07:20 05/20/25 07:20 Labs: Laboratory Results - last 24 hr 05/19/25 05/19/25 05/20/25 10:58 17:38 00:36 WBC RBC Hgb Hct MCV MCH MCHC RDW Plt Count Neut % (Auto) Lymph % (Auto) [place] % (Auto) Eos % (Auto) Baso % (Auto) Neut # (Auto) Lymph # (Auto) [place] # (Auto) Eos # (Auto) Baso # (Auto) Sodium Potassium Chloride Carbon Dioxide BUN Creatinine Estimated GFR BUN/Creatinine Ratio Glucose POC Whole Bld Glucose 110 H 83 78 Calcium Total Bilirubin AST ALT Alkaline Phosphatase Total Protein Albumin Globulin Albumin/Globulin Ratio 05/20/25 05/20/25 06:13 07:20 WBC 4.3 L RBC 2.81 L Hgb 7.2 L Hct 22.2 L MCV 79.0 L MCH 25.8 L MCHC 32.6 RDW 17.9 H Plt Count 314 Neut % (Auto) 62.5 Lymph % (Auto) 18.6 L [place] % (Auto) 8.1 Eos % (Auto) 9.4 H Baso % (Auto) 1.4 Neut # (Auto) 2700 Lymph # (Auto) 800 L [place] # (Auto) 300 Eos # (Auto) 400 Baso # (Auto) 100 Sodium 132 L Potassium 3.8 Chloride 98 Carbon Dioxide 31 BUN 7 L Creatinine 0.27 L Estimated GFR > 60 BUN/Creatinine Ratio 25.9 H Glucose 289 H D POC Whole Bld Glucose 88 Calcium 7.3 L Total Bilirubin < 0.1 L AST 45 ALT 21 Alkaline Phosphatase 79 Total Protein 5.2 L Albumin 2.1 L Globulin 3.1 Albumin/Globulin Ratio 0.7 L [facility] Medical History Excessive cerumen in both ear canals Chronic anticoagulation Iron deficiency anemia History of pulmonary embolism Status post radiation therapy Chronic anticoagulation Tracheostomy in place Sacral decubitus ulcer, stage III Protein calorie malnutrition Hyponatremia Dysphagia Recurrent aspiration pneumonia Depression, major, recurrent Jejunostomy tube present Influenza A Anemia Pneumonia 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 Father No problems noted. Social History marital status: unmarried,single details: Lives independantly with part-time caregivers household members: none lives independently: Yes occupational status: disabled Smoking Status: Never smoker alcohol intake: never substance use type: marijuana Assessment & Plan Time-Based Coding :: [TOTAL MINUTES] spent with patient and on the chart (including review of chart, obtaining history, exam, reviewing outside data, placing orders, documenting exam and treatment plan, and counseling patient) on [DATE]. 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
--- NOTE | 2025-05-20 10:28 | DIET.PN1 ---
Dietary Progress Note Assessment: f/u Tolerating feeds, but still having multiple loose stools per RN. Today has had 1 large loose BM. Recc the banatrol 4x/day. Ht: 174.73 cm Wt: 77.111 kg BMI: 25.2 UBW: 160 lb Last BM: 05/20/25 (05/20/25 09:30) MNA: Krishan Score: 10 Diet: 05/15/25 00:01 NPO Diet Diet Modifications: NPO Type: Strict 05/18/25 Lunch Tube Feeding Diet Diet Modifications: TF Supplement type: Pivot 1.5 saurav TF mode of delivery: Continuous Starting flow rate mL/hr: 20 Flow rate goal mL/hr: 50 Titration Schedule to reach Goal Rate: 10 mL/hr Q8H Max total daily volume in mL: 2,300 Free fluid: 120 Free Water Frequency: Q4H Comment: Banatrol packet (.39 or .38 oz) per packet instructions 3-4x/day Nutrition Type of Feeding Tube Jejunostomy 05/20/25 00:30 Type of Feeding Tube Jejunostomy 05/18/25 17:00 Labs: RBC 2.81 X10^6/uL (4.5-5.9) L 05/20/25 07:20 Hgb 7.2 g/dL (13.5-17.5) L 05/20/25 07:20 Hct 22.2 % (41-53) L 05/20/25 07:20 Creatinine 0.27 mg/dL (0.66-1.25) L 05/20/25 07:20 Lactate 1.2 mmol/L (0.7-2.1) 05/10/25 10:00 Electronically Signed by: Flakita Hopkins 05/20/25 10:28 Clinical Dietitian [address] [id number]
--- NOTE | 2025-05-20 13:51 | PC.NURSE ---
Per Dr. Russell, holding norepinephrine, restart if systolic <80.
[2025-05-20] MEDS: DEXTROSE 5%-0.9% NS 1,000 ML 64 ML IV (15:16)
--- NOTE | 2025-05-20 15:41 | CM.DPC ---
DCP Cont: Per MD, pt still not making any medical progress and feels strongly that pt an ideal LTAC candidate. If LTAC not an option, potential that pt might be a Hospice candidate. ROBIN researched [facility] and only showing [facility] as the only LTAC option in [facility]. ROBIN left msg with Elizabeth at [facility] to confirm they are the only LTAC facility and then to inquire what That{img} insurance they could accept in an attempt to change pt's classic Medicaid into another insurance option that could be accepted at [facility]. ROBIN printed process of changing Medicaid insurance. Plan: ROBIN to follow with [facility] and [employer]} tomorrow Tues when businesses are open from the Holiday weekend. ARIC Ca
[2025-05-20] MEDS: LOPERAMIDE 2 MG CAPSULE PO (17:05)
[2025-05-20] MEDS: SERTRALINE 50 MG TABLET 200 MG TUBE (21:10)
[2025-05-21] VITALS (61 sets, daily range): BP systolic 73–107; BP diastolic 49–72; PULSE 57–82; RESP 18–28; TEMP 36.2–37; O2SAT 82–100
[2025-05-21] MEDS: NOREPINEPHRINE BITARTRATE/D5W 4 MG/250 ML PLAST..BAG 14.458 MG IV (02:09)
--- NOTE | 2025-05-21 02:19 | PC.NURSE ---
Patient became increasingly hypotensive with systolic pressures in the 70s with MAP of 58. Patient was arousable, responsive and other vital signs stable. Restarted on low dose levo per protocol and MD communication. Patient currently with systolic pressures in the 90s with MAP of 81. Notified MD applications development analyst, Dr. Taylor.
[2025-05-21] MEDS: MIDODRINE HCL 5 MG TABLET 10 MG TUBE ×3 (02:32→18:23)
[2025-05-21] MEDS: DEXTROSE 5%-0.9% NS 1,000 ML 64 ML IV (06:46)
[2025-05-21] MEDS: ALBUTEROL/IPRATROPIUM 3 ML AMPUL INH ×2 (07:13→19:40)
--- NOTE | 2025-05-21 07:44 | DI.RAD.S_ITS ---
PROCEDURE: XR CHEST 1V INDICATIONS: pneumonia TECHNIQUE: One view of the chest was acquired. COMPARISON: [facility], CR, XR CHEST FOR PICC 1V, 05/15/2025, 12:03. [facility], CR, XR CHEST 1V, 05/10/2025, 13:12. FINDINGS: Patient is markedly rotated limiting evaluation Surgical changes and devices: Tracheostomy tube. Lungs and pleura: Marked patient rotation with appearance right lobe near complete opacification. Mediastinum: Mediastinal contours appear normal. Heart size is normal. Bones and chest wall: No suspicious bony lesions. Overlying soft tissues appear unremarkable. IMPRESSION: Limited exam secondary to rotation. However, there appears to be near complete opacification of the left hemithorax relatively unchanged. Dictated by: Ruthann Woodward M.D. on 05/21/2025 at 8:08 Approved by: Ruthann Woodward M.D. on 05/21/2025 at 8:08
--- NOTE | 2025-05-21 08:47 | P.PN_ITS ---
Subjective Subjective Date Patient Seen: 05/21/25 Time Patient Seen: 08:40 Interval history: Patient is a 45-year-old white male is resting on trach mask patient is still having some hypotension with intermittent Levophed. Patient denies any pain. Morning laboratories are pending. Vitals: Temperature is 98.1? pulse 73 respirations 20 BP is 80/51 SaO2 is 100% on trach mask Heart regular rate and rhythm. Lungs poor inspiratory and expiratory effort poor chest wall motion noted occasional rhonchi are noted. Abdomen is soft nondistended incision site is healing well luis are intact no signs of infection or inflammation J-tube site is intact and functioning well. Impression: Postop day 12. Exploratory laparotomy with repair of dislodged PEG tube with closure of defect with placement of jejunostomy feeding tube. History of neurological deficits secondary to palsy Paralysis with tracheostomy and placed Hypotension being treated with intermittent Levophed Patient on prophylactic antibiotics Plan: Continue with current surgical therapy and tube feedings which patient is tolerating well patient having bowel movements. Patient being managed by Medicine for other coexisting medical problems. Attempting to discuss with family placement to an LTAC. Awaiting morning laboratory. Exam Vital Signs (past 8 hours): - 05/21/25 01:00 05/21/25 01:00 05/21/25 01:00 Temperature Pulse Rate 73 Respiratory Rate 19 Blood Pressure 84/53 L Pulse Oximetry 100 Oxygen Delivery Method Trach Collar Oxygen Flow Rate Fraction of Inspired Oxygen 05/21/25 01:31 05/21/25 01:31 05/21/25 02:00 Temperature Pulse Rate 70 68 Respiratory Rate 20 Blood Pressure 85/51 L Pulse Oximetry 100 100 Oxygen Delivery Method Oxygen Flow Rate Fraction of Inspired Oxygen 05/21/25 02:00 05/21/25 02:01 05/21/25 02:01 Temperature Pulse Rate 69 Respiratory Rate 20 Blood Pressure 73/50 L 75/52 L Pulse Oximetry 100 Oxygen Delivery Method Oxygen Flow Rate Fraction of Inspired Oxygen 05/21/25 02:02 05/21/25 02:02 05/21/25 02:07 Temperature Pulse Rate 69 Respiratory Rate 20 Blood Pressure 75/49 L 75/49 L Pulse Oximetry 100 Oxygen Delivery Method Oxygen Flow Rate Fraction of Inspired Oxygen 05/21/25 02:07 05/21/25 02:10 05/21/25 02:10 Temperature Pulse Rate 70 57 L Respiratory Rate 19 19 Blood Pressure 94/62 Pulse Oximetry 100 100 Oxygen Delivery Method Oxygen Flow Rate Fraction of Inspired Oxygen 05/21/25 02:15 05/21/25 02:15 05/21/25 02:30 Temperature Pulse Rate 64 67 Respiratory Rate 20 18 Blood Pressure 102/69 Pulse Oximetry 100 100 Oxygen Delivery Method Oxygen Flow Rate Fraction of Inspired Oxygen 05/21/25 02:30 05/21/25 02:45 05/21/25 02:45 Temperature Pulse Rate 64 Respiratory Rate 18 Blood Pressure 100/65 96/63 Pulse Oximetry 100 Oxygen Delivery Method Oxygen Flow Rate Fraction of Inspired Oxygen 05/21/25 03:00 05/21/25 03:00 05/21/25 03:15 Temperature Pulse Rate 68 Respiratory Rate 21 Blood Pressure 107/72 91/60 Pulse Oximetry 100 Oxygen Delivery Method Oxygen Flow Rate Fraction of Inspired Oxygen 05/21/25 03:15 05/21/25 03:30 05/21/25 03:30 Temperature 98.1 F Pulse Rate 61 61 Respiratory Rate 19 28 H Blood Pressure 100/64 Pulse Oximetry 100 100 Oxygen Delivery Method Oxygen Flow Rate 8 Fraction of Inspired Oxygen 05/21/25 03:45 05/21/25 03:45 05/21/25 04:00 Temperature Pulse Rate 65 64 Respiratory Rate 22 18 Blood Pressure 101/67 Pulse Oximetry 100 100 Oxygen Delivery Method Oxygen Flow Rate Fraction of Inspired Oxygen 05/21/25 04:00 05/21/25 04:15 05/21/25 04:15 Temperature Pulse Rate 66 Respiratory Rate 25 H Blood Pressure 86/57 L 105/66 Pulse Oximetry 100 Oxygen Delivery Method Oxygen Flow Rate Fraction of Inspired Oxygen 05/21/25 04:30 05/21/25 04:30 05/21/25 04:45 Temperature Pulse Rate 64 73 Respiratory Rate 22 19 Blood Pressure 100/60 Pulse Oximetry 100 100 Oxygen Delivery Method Oxygen Flow Rate Fraction of Inspired Oxygen 05/21/25 04:45 05/21/25 05:00 05/21/25 05:00 Temperature Pulse Rate 75 Respiratory Rate 19 Blood Pressure 81/52 L Pulse Oximetry 100 Oxygen Delivery Method Trach Collar Oxygen Flow Rate Fraction of Inspired Oxygen 05/21/25 05:00 05/21/25 07:13 Temperature Pulse Rate 73 Respiratory Rate 20 Blood Pressure 80/51 L Pulse Oximetry 100 Oxygen Delivery Method Trach Collar Oxygen Flow Rate Fraction of Inspired Oxygen 28 Fraction of Inspired Oxygen 28 SaO2/FiO2 Ratio 357 Oxygen Delivery Method Trach Collar Oxygen Flow Rate 8 Objective Labs 05/20/25 07:20 05/20/25 07:20 Labs: Laboratory Results - last 24 hr 05/20/25 05/20/25 05/21/25 11:45 17:52 01:17 POC Whole Bld Glucose 90 102 H 87 PFSH Medical History Excessive cerumen in both ear canals Chronic anticoagulation Iron deficiency anemia History of pulmonary embolism Status post radiation therapy Chronic anticoagulation Tracheostomy in place Sacral decubitus ulcer, stage III Protein calorie malnutrition Hyponatremia Dysphagia Recurrent aspiration pneumonia Depression, major, recurrent Jejunostomy tube present Influenza A Anemia Pneumonia 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 Father No problems noted. Social History marital status: unmarried,single details: Lives independantly with part-time caregivers household members: none lives independently: Yes occupational status: disabled Smoking Status: Never smoker alcohol intake: never substance use type: marijuana Assessment & Plan Time-Based Coding :: [TOTAL MINUTES] spent with patient and on the chart (including review of chart, obtaining history, exam, reviewing outside data, placing orders, documenting exam and treatment plan, and counseling patient) on [DATE]. 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
[2025-05-21 08:51] LABS: Add Manual Diff / Slide Review NO; Hematocrit 21.8 % (41-53); Hemoglobin 7.1 g/dL (13.5-17.5); Lymphocytes Absolute Auto 900 /uL (1100-4500); Mean Corpuscular HGB Conc 32.7 % (30-36); Mean Corpuscular Hemoglobin 26.0 PG (26-34); Mean Corpuscular Volume 79.5 fL (80-100); Platelet Count 280 X10^3/uL (150-400)
[2025-05-21 09:03] LABS: Alanine Aminotransferase 35 IU/L (<50); Albumin 2.3 g/dL (3.5-5.0); Albumin Globulin Ratio 0.7 (1.0-2.8); Alkaline Phosphatase 83 U/L (38-126); Blood Urea Nitrogen 10 mg/dL (9-20); Calcium 7.6 mg/dL (8.4-10.2); Carbon Dioxide 32 mmol/L (22-32); Chloride 95 mmol/L (98-107); Estimated Glomerular Filt Rate > 60 mL/min (>60); Globulin 3.4 g/dL (1.7-4.1); Glucose 81 mg/dL (70-99); HEMOLYSIS < 15 (0-50); Potassium 4.0 mmol/L (3.4-5.1); Sodium 131 mmol/L (137-145); Total Protein 5.7 g/dL (6.3-8.2)
[2025-05-21] MEDS: SODIUM CHLORIDE 0.9% FLUSH 10 ML IV ×2 (09:57→21:38)
[2025-05-21] MEDS: PANTOPRAZOLE 40 MG VIAL IV (09:57)
[2025-05-21] MEDS: ACETAMINOPHEN SUSP 650 MG/20.3 ML UDC PO (10:05)
[2025-05-21] MEDS: BACLOFEN 10 MG TABLET 5 MG TUBE (10:06)
[2025-05-21] MEDS: NYSTATIN CREAM 30 GM 1 APPLIC TOP ×2 (10:07→21:39)
[2025-05-21] MEDS: SODIUM HYPOCHLORITE 473 ML SOLUTION TOP (10:16)
[2025-05-21] MEDS: NEOMYCIN/POLYMYXIN/BACITRA UD OINT 1 EACH TOP ×2 (10:18→21:44)
--- NOTE | 2025-05-21 10:44 | DIET.PN1 ---
Dietary Progress Note Assessment: F/u. Per RN, feeds at 40 mL/hr, advanced this morning and will titrate up to goal 50 mL today per diet order. Banatrol packets no longer available. Pt with copious diarrhea yesterday and given PRN loperamide. No further BMs overnight or this morning. Feeds at goal (50 mL/hr) plus flushes (100 mL Q4H) provides 1500 mL fluids daily. Ht: 174.73 cm Wt: 77.111 kg BMI: 25.2 UBW: 160 lb Last BM: 05/20/25 (05/20/25 18:00) MNA: Krishan Score: 9 Diet: 05/15/25 00:01 NPO Diet Diet Modifications: NPO Type: Strict 05/18/25 Lunch Tube Feeding Diet Diet Modifications: TF Supplement type: Pivot 1.5 saurav TF mode of delivery: Continuous Starting flow rate mL/hr: 20 Flow rate goal mL/hr: 50 Titration Schedule to reach Goal Rate: 10 mL/hr Q8H Max total daily volume in mL: 2,300 Free fluid: 100 Free Water Frequency: Q4H Comment: Banatrol packet (.39 or .38 oz) per packet instructions 3-4x/day Nutrition Type of Feeding Tube Jejunostomy 05/20/25 00:30 Labs: RBC 2.74 X10^6/uL (4.5-5.9) L 05/21/25 08:45 Hgb 7.1 g/dL (13.5-17.5) L 05/21/25 08:45 Hct 21.8 % (41-53) L 05/21/25 08:45 Creatinine 0.27 mg/dL (0.66-1.25) L 05/21/25 08:45 Lactate 1.2 mmol/L (0.7-2.1) 05/10/25 10:00 Electronically Signed by: Flakita Hopkins 05/21/25 10:44 Clinical Diet[address] [id number]
[2025-05-21] MEDS: LACTOBACILLUS ACIDOPHILUS TABLET 1 EACH PO (11:29)
[2025-05-21] MEDS: LOPERAMIDE 2 MG CAPSULE PO (11:32)
--- NOTE | 2025-05-21 14:43 | P.PN_ITS ---
Subjective Subjective Date Patient Seen: 05/21/25 Interval history: Chief complaint: Sepsis secondary to a gastric perforation and leak into peritoneum of gastric contents around gastrostomy tube History of present illness: 05/09: Patient is seen at the request of Dr. Naqvi of surgery. Apparently the patient arrived last night with a question of PEG tube dysfunction. A PEG tube was replaced in the ED but was not functioning as expected after placement. The patient was admitted by surgery to the [facility] and this morning taken to the OR for investigation. Prior to this, I was alerted of the patient's clinical status and I did initiate lab tests, blood cultures, IV fluids, and IV cefepime for possible sepsis. [place] [address] with a normal lactic acid. In the OR, the PEG to appeared to be in a false passage. The gastrostomy channel was closed and a J-tube was placed. The peritoneum was washed out. It did not appear grossly that tube feeds were in the peritoneum and the patient was subsequently brought to the ICU where he was on norepinephrine through a peripheral IV and appeared to be very dry with no urine output after 2 L of fluids in the OR. The patient has a noncuffed tracheostomy in place, and severe skin injury to the sacrum including 1 area with possible induration and a wound which is about 2-3 cm in diameter. See media photos. General surgery was alerted to the condition of the back at this time. Micro was reviewed this patient has had MRSA and Pseudomonas in sputum in the past. He was at high risk for MDR infections. He was awake, and moaning, but unable to follow commands or track. 05/10: Patient is minimally responsive white count 50517 92% neutrophils VBG 7.25 pCO2 46 PO2 37 sodium 139 potassium 3.5 chloride 110 CO2 19 BUN 19 creatinine 0.54 Chest x-ray: There is a tracheostomy tube seen in place. Lungs and pleura: Significant volume loss is seen on the left side. There is left-sided interstitial prominence. There is blunting of the left costophrenic angle. 05/11: Patient is receiving chest physiotherapy there is improvement in the lung sounds on the left patient is more animated and regards with eyes 05/12: Secretions clearing with chest physiotherapy patient appears alert is nonverbal regards with eyes only 05/13: Patient is more alert good response to chest physiotherapy resumed tube feeding and is tolerating per J-tube sputum cultures came back: 05/15: Experienced significant GI bleed yesterday with hemoglobin of 7.0, up to 8.6 with unit blood transfusion. This morning's hemoglobin is blocked by poor access so a PICC line is being placed. EGD and colonoscopy were planned by General surgery but overnight the patient experienced hypotension into the 70s systolic so is now on low-dose Levophed. Also the Colyte prep through the J- tube has not produced significant rectal output yet. The white blood count is pending. He remains on a D5 infusion after blood sugars dropped in the 60s overnight. He is on room air through his trach mask. He remains on cefepime and vancomycin. PICC line placed 05/16: No further active bleeding noted. The patient remains mildly hypotensive. His Levophed was stopped with blood pressure 83/46, and MAP 62. He is making good clear yellow urine output with evidence of significant 3rd spacing in arms and legs. He is awake and nods yes and no to questions, denies pain. 05/17: The hemoglobin dropped again below 8 without any outward signs of ongoing GI bleeding. He was resumed on TPN last night. He remains quite edematous from the anasarca/low albumin oncotic pressures. He continues to have liquid stools. His total IV fluid rate right now is between 80 and 90. 05/18: Hemoglobin 7.8 today. Creatinine 0.29 and potassium 3.5. He is transitioning from the TPN back to tube feeding today. The possibility of transfer to a long-term acute care unit in [place] was brought up and discussed. Unfortunately his insurance is not accepted at that location. His blood pressure dropped to 79/52 when the mild dose of Levophed was stopped so that was resumed. He is discussed with Dr. Escalona today. 05/19: Hemoglobin 8.1 today. Blood sugars range from 92 up to 196. He is now off the TPN and back on trickle feeds/titration with the J-tube currently at 10 mL/hr. He continues to receive IV fluid at 64 mL/hr. He no longer has the impressive levels of peripheral edema/third-spacing/puffiness in his extremities. He is much more alert today. Yesterday he was able to visit with his mother and obviously enjoyed their interaction, attempting to talk. He was started back on his midodrine yesterday and the Levophed was weaned off but had to be resumed. 05/20: Hemoglobin dropped again overnight from 8.1 down to 7.2 white count is 4.3 sodium 132 potassium 3.8 albumin 2.1 tube feeding increased to 20 mL an hour 05/21: Other poor historian hour. Patient has been on and off Levophed for hypotension hemoglobin dropped to 7.1 1 unit ordered 1. Staphylococcus aureus M.I.C. RX --------- --- * Daptomycin 0.5 S * Vancomycin 1 S * Ciprofloxacin >=8 R * Clindamycin 0.25 S * Doxycycline <=0.5 S * Erythromycin <=0.25 S * Gentamicin <=0.5 S * Levofloxacin 4 R * Linezolid 2 S * Moxifloxacin 2 R * Oxacillin Pa 0.5 S * Rifampin <=0.5 S * Tetracycline <=1 S * Trimethoprim/Sulfamethoxazole <=10 S 2. Pseudomonas aeruginosa M.I.C. RX --------- --- * Cefepime 2 S * Ceftazidime 2 S * Ciprofloxacin 0.12 S * Levofloxacin 0.5 S * Meropenem 1 S * Piperacillin/Tazobactam 8 S 3. Citrobacter freundii M.I.C. RX --------- --- * Amoxicillin/Clavulanate R * Aztreonam <=1 S * Cefepime E-test 0.064 S * Cefuroxime R * Ciprofloxacin <=0.06 S * Ertapenem <=0.12 S * Gentamicin <=1 S * Levofloxacin <=0.12 S * Meropenem <=0.25 S * Tetracycline <=1 S Review of systems: Incapable due to cognitive limitations Physical examination: cachectic and chronically ill in appearance . Regards with eyes He was a tracheostomy in place. Very weak respiratory effort gross rhonchi on left Heart sounds distant His abdomen is flat, and non tender to palpation. A J-tube is in place. Extremities are atrophied and there was no edema. large area of skin pressure injury over the sacrum and lower back as well as a wound in the right paraspinal area above the pelvis. See media photos for this. Assessment and plan: Peg tube in false lumen, removed, Closure of gastrostomy track and placement of J-tube, active. * Appreciate surgery expertise * Tube feeding advancing an hour per surgery Septic shock with source unclear, differential of lung with history of MRSA and Pseudomonas versus peritonitis verses back infected wounds. Active. * Ceftazidime started by surgery 05/21 Severe soft tissue injury of sacrum with area of induration and a wound of 2 cm in diameter, active. * Wound care team * Diflucan 4 days 200 mg completed Chronic uncuffed tracheostomy, active. * Trach managemeny Severe volume depletion, active. * Continue intravenous fluids Pseudobulbar palsy, and spastic left hemiparesis with long-term tracheostomy and history of recurrent aspiration pneumonia. 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 * Prognosis is guarded. * Discussed with PCP, Dr. Marshall. Disposition: * Attending transferred over to hospitalist service * ICU status continues on norepinephrine * Disposition it seems apparently from this point forward, that this patient will require chronic hospitalization therefore LTAC we will probably be the only workable disposition option Time-Based Coding :: 45 min spent with patient and on the chart (including review of chart, obtaining history, exam, reviewing outside data, placing orders, documenting exam and treatment plan, and counseling patient) Exam Vital Signs (past 8 hours): - 05/21/25 06:45 05/21/25 06:45 05/21/25 06:46 Temperature Pulse Rate 72 73 Respiratory Rate 19 20 Blood Pressure 79/53 L Pulse Oximetry 100 100 Oxygen Delivery Method Fraction of Inspired Oxygen 05/21/25 06:46 05/21/25 06:47 05/21/25 06:47 Temperature Pulse Rate 73 Respiratory Rate 20 Blood Pressure 78/52 L 80/51 L Pulse Oximetry 100 Oxygen Delivery Method Fraction of Inspired Oxygen 05/21/25 07:00 05/21/25 07:00 05/21/25 07:00 Temperature 97.1 F L Pulse Rate 74 Respiratory Rate 20 Blood Pressure 81/51 L Pulse Oximetry 100 Oxygen Delivery Method Fraction of Inspired Oxygen 05/21/25 07:13 05/21/25 07:15 05/21/25 07:15 Temperature Pulse Rate 73 73 Respiratory Rate 20 21 Blood Pressure 82/54 L Pulse Oximetry 100 100 Oxygen Delivery Method Trach Collar Fraction of Inspired Oxygen 28 05/21/25 07:30 05/21/25 07:30 05/21/25 07:45 Temperature Pulse Rate 73 76 Respiratory Rate 19 19 Blood Pressure 80/52 L Pulse Oximetry 100 100 Oxygen Delivery Method Fraction of Inspired Oxygen 05/21/25 07:45 05/21/25 08:00 05/21/25 08:00 Temperature Pulse Rate 75 Respiratory Rate 20 Blood Pressure 82/53 L 81/51 L Pulse Oximetry 100 Oxygen Delivery Method Fraction of Inspired Oxygen 05/21/25 08:15 05/21/25 08:15 05/21/25 08:31 Temperature Pulse Rate 77 76 Respiratory Rate 21 22 Blood Pressure 83/53 L Pulse Oximetry 100 100 Oxygen Delivery Method Fraction of Inspired Oxygen 05/21/25 08:31 05/21/25 08:45 05/21/25 08:45 Temperature Pulse Rate 78 Respiratory Rate 28 H Blood Pressure 86/52 L 95/67 Pulse Oximetry 82 L Oxygen Delivery Method Fraction of Inspired Oxygen 05/21/25 09:00 05/21/25 09:00 05/21/25 10:00 Temperature Pulse Rate 74 78 Respiratory Rate 25 H 20 Blood Pressure 80/51 L Pulse Oximetry 94 99 Oxygen Delivery Method Fraction of Inspired Oxygen 05/21/25 10:00 05/21/25 11:00 05/21/25 11:01 Temperature Pulse Rate 79 82 Respiratory Rate 21 23 Blood Pressure 89/55 L Pulse Oximetry 100 100 Oxygen Delivery Method Fraction of Inspired Oxygen 05/21/25 11:01 05/21/25 12:00 05/21/25 12:00 Temperature Pulse Rate 67 Respiratory Rate 20 Blood Pressure 87/55 L 93/59 L Pulse Oximetry 100 Oxygen Delivery Method Fraction of Inspired Oxygen 05/21/25 13:00 05/21/25 13:00 05/21/25 13:33 Temperature Pulse Rate 65 62 Respiratory Rate 19 20 Blood Pressure 90/57 L Pulse Oximetry 100 98 Oxygen Delivery Method Trach Collar Fraction of Inspired Oxygen 28 Fraction of Inspired Oxygen 28 SaO2/FiO2 Ratio 357 Oxygen Delivery Method Trach Collar Oxygen Flow Rate 8 Objective Labs 05/21/25 08:45 05/21/25 08:45 Labs: Laboratory Results - last 24 hr 05/20/25 05/21/25 05/21/25 17:52 01:17 08:45 WBC 4.2 L RBC 2.74 L Hgb 7.1 L Hct 21.8 L MCV 79.5 L MCH 26.0 MCHC 32.7 RDW 18.5 H Plt Count 280 Neut % (Auto) 61.9 Lymph % (Auto) 20.6 L Mcnairy % (Auto) 8.7 Eos % (Auto) 8.4 H Baso % (Auto) 0.4 Neut # (Auto) 2600 Lymph # (Auto) 900 L Mcnairy # (Auto) 400 Eos # (Auto) 400 Baso # (Auto) 0 Sodium 131 L Potassium 4.0 Chloride 95 L Carbon Dioxide 32 BUN 10 Creatinine 0.27 L Estimated GFR > 60 BUN/Creatinine Ratio 37.0 H Glucose 81 D POC Whole Bld Glucose 102 H 87 Calcium 7.6 L Total Bilirubin 0.2 AST 68 H ALT 35 Alkaline Phosphatase 83 Total Protein 5.7 L Albumin 2.3 L Globulin 3.4 Albumin/Globulin Ratio 0.7 L 05/21/25 11:54 WBC RBC Hgb Hct MCV MCH MCHC RDW Plt Count Neut % (Auto) Lymph % (Auto) Mcnairy % (Auto) Eos % (Auto) Baso % (Auto) Neut # (Auto) Lymph # (Auto) Mcnairy # (Auto) Eos # (Auto) Baso # (Auto) Sodium Potassium Chloride Carbon Dioxide BUN Creatinine Estimated GFR BUN/Creatinine Ratio Glucose POC Whole Bld Glucose 71 Calcium Total Bilirubin AST ALT Alkaline Phosphatase Total Protein Albumin Globulin Albumin/Globulin Ratio [facility] Medical History Excessive cerumen in both ear canals Chronic anticoagulation Iron deficiency anemia History of pulmonary embolism Status post radiation therapy Chronic anticoagulation Tracheostomy in place Sacral decubitus ulcer, stage III Protein calorie malnutrition Hyponatremia Dysphagia Recurrent aspiration pneumonia Depression, major, recurrent Jejunostomy tube present Influenza A Anemia Pneumonia 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 Father No problems noted. Social History marital status: unmarried,single details: Lives independantly with part-time caregivers household members: none lives independently: Yes occupational status: disabled Smoking Status: Never smoker alcohol intake: never substance use type: marijuana Assessment & Plan Time-Based Coding :: [TOTAL MINUTES] spent with patient and on the chart (including review of chart, obtaining history, exam, reviewing outside data, placing orders, documenting exam and treatment plan, and counseling patient) on [DATE].
[2025-05-21 16:37] LABS: Reticulocyte Count, Percent 2.2 % (0.9-2.6)
[2025-05-21 16:52] LABS: HEMOLYSIS < 15 (0-50); Iron 39 ug/dL (49-181)
[2025-05-21 17:02] LABS: Percent Iron Saturation 20 % (20-50); Total Iron Binding Capacity 196 ug/dL (261-462); Transferrin 132 mg/dL (206-381)
[2025-05-21 17:59] LABS: Folate 6.1 ng/mL (2.76-20.0); Vitamin B12 > 1000 pg/mL (239-931)
[2025-05-21] MEDS: SERTRALINE 50 MG TABLET 200 MG TUBE (21:37)
[2025-05-22] VITALS (26 sets, daily range): BP systolic 84–107; BP diastolic 51–69; PULSE 69–82; RESP 18–23; TEMP 35.9–37.4; O2SAT 97–100
[2025-05-22] MEDS: MIDODRINE HCL 5 MG TABLET 10 MG TUBE ×3 (02:45→19:04)
--- NOTE | 2025-05-22 04:43 | RT ---
pt checked throughout the night vials are stable 80 HR, BP 87/51, RR 20 99% on 28% doesnt need suctioning
[2025-05-22] MEDS: ACETAMINOPHEN SUSP 650 MG/20.3 ML UDC PO (04:51)
[2025-05-22 06:26] LABS: Add Manual Diff / Slide Review NO; Hematocrit 25.4 % (41-53); Hemoglobin 8.5 g/dL (13.5-17.5); Lymphocytes Absolute Auto 1000 /uL (1100-4500); Mean Corpuscular HGB Conc 33.3 % (30-36); Mean Corpuscular Hemoglobin 26.9 PG (26-34); Mean Corpuscular Volume 81.0 fL (80-100); Platelet Count 300 X10^3/uL (150-400)
[2025-05-22 06:44] LABS: Alanine Aminotransferase 47 IU/L (<50); Albumin 2.3 g/dL (3.5-5.0); Albumin Globulin Ratio 0.7 (1.0-2.8); Alkaline Phosphatase 91 U/L (38-126); Blood Urea Nitrogen 13 mg/dL (9-20); Calcium 7.7 mg/dL (8.4-10.2); Carbon Dioxide 34 mmol/L (22-32); Chloride 98 mmol/L (98-107); Estimated Glomerular Filt Rate > 60 mL/min (>60); Globulin 3.4 g/dL (1.7-4.1); Glucose 92 mg/dL (70-99); HEMOLYSIS < 15 (0-50); Potassium 4.0 mmol/L (3.4-5.1); Sodium 133 mmol/L (137-145); Total Protein 5.7 g/dL (6.3-8.2)
[2025-05-22] MEDS: PANTOPRAZOLE 40 MG VIAL IV (08:21)
[2025-05-22] MEDS: BACLOFEN 10 MG TABLET 5 MG TUBE (08:21)
[2025-05-22] MEDS: LACTOBACILLUS ACIDOPHILUS TABLET 1 EACH PO (08:21)
[2025-05-22] MEDS: NEOMYCIN/POLYMYXIN/BACITRA UD OINT 1 EACH TOP ×2 (08:21→21:54)
[2025-05-22] MEDS: SODIUM CHLORIDE 0.9% FLUSH 10 ML IV ×2 (08:22→22:04)
[2025-05-22] MEDS: NYSTATIN CREAM 30 GM 1 APPLIC TOP ×2 (08:22→22:05)
[2025-05-22] MEDS: SODIUM HYPOCHLORITE 473 ML SOLUTION TOP (08:22)
[2025-05-22] MEDS: ALBUTEROL/IPRATROPIUM 3 ML AMPUL INH ×2 (09:11→20:30)
[2025-05-22] MEDS: DEXTROSE 5%-0.9% NS 1,000 ML 64 ML IV (12:11)
--- NOTE | 2025-05-22 13:16 | CM.DPC ---
DCP Cont. Reviewed EMR and team rounds for pt's medical status and updates. Met with Marianela (pt's mom), Dr. Marshall, and Dr. Russell for a care conference re: medical needs and dc planning/barriers. Pt is being denied for SNF rehab locally due to having straight Medicaid, also the only LTAC is near [place], and they will not take his straight Medicaid either. Marianela does not want him to go to the LTAC under any circumstances. PRODUCTION CLOTH CUTTER explained that in order to see if he can regain his prior level of independence at night/functioning, and be able to call her if he needs it, as well as concerns for his extensive skin breakdown and wounds, that he will need SNF rehab prior to returning home. She stated understanding, and insisted that she wanted him to return home after that. Dr. Marshall discussed his ongoing very low blood pressure, and that he will not leave the hospital until they can get that stable. They will work on further interventions over the next several days to try to achieve this. Mom stated that she was open to changing his straight Medicaid to [employer], but only if it does not impact his SHA[employer] hours and care. PRODUCTION CLOTH CUTTER provided Dr. Russell the Medicare/Medicaid guidelines for eligibility criteria for a home hospital bed. Once this is done, this PRODUCTION CLOTH CUTTER will fax to [facility] for at which time he does return home. Marianela states that [facility] [employer], his secondary insurance, does not pay for LTC or in-home caregivers, but does pick-up his co-pays if need be. Called pt's SHAUN manager of case management back, Thea Brito , to inquire as to whether or not opting for a change from straight Medicaid as primary to [employer] such as [facility]. She will make some calls and get back to both this PRODUCTION CLOTH CUTTER and Marianela to advise before she makes the switch. Anticipate several more days before he's medically stable for d/c.
--- NOTE | 2025-05-22 14:24 | P.PN_ITS ---
Subjective Subjective Date Patient Seen: 05/22/25 Interval history: Chief complaint: Sepsis secondary to a gastric perforation and leak into peritoneum of gastric contents around gastrostomy tube History of present illness: 05/09: Patient is seen at the request of Dr. Naqvi of surgery. Apparently the patient arrived last night with a question of PEG tube dysfunction. A PEG tube was replaced in the ED but was not functioning as expected after placement. The patient was admitted by surgery to the [facility] and this morning taken to the OR for investigation. Prior to this, I was alerted of the patient's clinical status and I did initiate lab tests, blood cultures, IV fluids, and IV cefepime for possible sepsis. [place] [id number] with a normal lactic acid. In the OR, the PEG to appeared to be in a false passage. The gastrostomy channel was closed and a J-tube was placed. The peritoneum was washed out. It did not appear grossly that tube feeds were in the peritoneum and the patient was subsequently brought to the ICU where he was on norepinephrine through a peripheral IV and appeared to be very dry with no urine output after 2 L of fluids in the OR. The patient has a noncuffed tracheostomy in place, and severe skin injury to the sacrum including 1 area with possible induration and a wound which is about 2-3 cm in diameter. See media photos. General surgery was alerted to the condition of the back at this time. Micro was reviewed this patient has had MRSA and Pseudomonas in sputum in the past. He was at high risk for MDR infections. He was awake, and moaning, but unable to follow commands or track. 05/10: Patient is minimally responsive white count 96087 92% neutrophils VBG 7.25 pCO2 46 PO2 37 sodium 139 potassium 3.5 chloride 110 CO2 19 BUN 19 creatinine 0.54 Chest x-ray: There is a tracheostomy tube seen in place. Lungs and pleura: Significant volume loss is seen on the left side. There is left-sided interstitial prominence. There is blunting of the left costophrenic angle. 05/11: Patient is receiving chest physiotherapy there is improvement in the lung sounds on the left patient is more animated and regards with eyes 05/12: Secretions clearing with chest physiotherapy patient appears alert is nonverbal regards with eyes only 05/13: Patient is more alert good response to chest physiotherapy resumed tube feeding and is tolerating per J-tube sputum cultures came back: 05/15: Experienced significant GI bleed yesterday with hemoglobin of 7.0, up to 8.6 with unit blood transfusion. This morning's hemoglobin is blocked by poor access so a PICC line is being placed. EGD and colonoscopy were planned by General surgery but overnight the patient experienced hypotension into the 70s systolic so is now on low-dose Levophed. Also the Colyte prep through the J- tube has not produced significant rectal output yet. The white blood count is pending. He remains on a D5 infusion after blood sugars dropped in the 60s overnight. He is on room air through his trach mask. He remains on cefepime and vancomycin. PICC line placed 05/16: No further active bleeding noted. The patient remains mildly hypotensive. His Levophed was stopped with blood pressure 83/46, and MAP 62. He is making good clear yellow urine output with evidence of significant 3rd spacing in arms and legs. He is awake and nods yes and no to questions, denies pain. 05/17: The hemoglobin dropped again below 8 without any outward signs of ongoing GI bleeding. He was resumed on TPN last night. He remains quite edematous from the anasarca/low albumin oncotic pressures. He continues to have liquid stools. His total IV fluid rate right now is between 80 and 90. 05/18: Hemoglobin 7.8 today. Creatinine 0.29 and potassium 3.5. He is transitioning from the TPN back to tube feeding today. The possibility of transfer to a long-term acute care unit in [place] was brought up and discussed. Unfortunately his insurance is not accepted at that location. His blood pressure dropped to 79/52 when the mild dose of Levophed was stopped so that was resumed. He is discussed with Dr. Escalona today. 05/19: Hemoglobin 8.1 today. Blood sugars range from 92 up to 196. He is now off the TPN and back on trickle feeds/titration with the J-tube currently at 10 mL/hr. He continues to receive IV fluid at 64 mL/hr. He no longer has the impressive levels of peripheral edema/third-spacing/puffiness in his extremities. He is much more alert today. Yesterday he was able to visit with his mother and obviously enjoyed their interaction, attempting to talk. He was started back on his midodrine yesterday and the Levophed was weaned off but had to be resumed. 05/20: Hemoglobin dropped again overnight from 8.1 down to 7.2 white count is 4.3 sodium 132 potassium 3.8 albumin 2.1 tube feeding increased to 20 mL an hour 05/21: Other poor historian hour. Patient has been on and off Levophed for hypotension hemoglobin dropped to 7.1 1 unit ordered 05/22: No new complaints no further need for Levophed 24 hour urine for cortisol was completed 1 unit of blood increased hemoglobin to 8.5 1. Staphylococcus aureus M.I.C. RX --------- --- * Daptomycin 0.5 S * Vancomycin 1 S * Ciprofloxacin >=8 R * Clindamycin 0.25 S * Doxycycline <=0.5 S * Erythromycin <=0.25 S * Gentamicin <=0.5 S * Levofloxacin 4 R * Linezolid 2 S * Moxifloxacin 2 R * Oxacillin Ap 0.5 S * Rifampin <=0.5 S * Tetracycline <=1 S * Trimethoprim/Sulfamethoxazole <=10 S 2. Pseudomonas aeruginosa M.I.C. RX --------- --- * Cefepime 2 S * Ceftazidime 2 S * Ciprofloxacin 0.12 S * Levofloxacin 0.5 S * Meropenem 1 S * Piperacillin/Tazobactam 8 S 3. Citrobacter freundii M.I.C. RX --------- --- * Amoxicillin/Clavulanate R * Aztreonam <=1 S * Cefepime E-test 0.064 S * Cefuroxime R * Ciprofloxacin <=0.06 S * Ertapenem <=0.12 S * Gentamicin <=1 S * Levofloxacin <=0.12 S * Meropenem <=0.25 S * Tetracycline <=1 S Review of systems: Incapable due to cognitive limitations Physical examination: cachectic and chronically ill in appearance . Regards with eyes He was a tracheostomy in place. Very weak respiratory effort gross rhonchi on left Heart sounds distant His abdomen is flat, and non tender to palpation. A J-tube is in place. Extremities are atrophied and there was no edema. large area of skin pressure injury over the sacrum and lower back as well as a wound in the right paraspinal area above the pelvis. See media photos for this. Assessment and plan: Peg tube in false lumen, removed, Closure of gastrostomy track and placement of J-tube, active. * Appreciate surgery expertise * Tube feeding advancing an hour per surgery Septic shock with source unclear, differential of lung with history of MRSA and Pseudomonas versus peritonitis verses back infected wounds. Active. * Ceftazidime started by surgery 05/21 Severe soft tissue injury of sacrum with area of induration and a wound of 2 cm in diameter, active. * Wound care team * Diflucan 4 days 200 mg completed Chronic uncuffed tracheostomy, active. * Trach managemeny Severe volume depletion, active. * Continue intravenous fluidsPseudobulbar palsy, and spastic left hemiparesis with long-term tracheostomy and history of recurrent aspiration pneumonia. 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 * Prognosis is guarded. * Discussed with PCP, Dr. Marshall. Disposition: * Met with mother primary care physician Cyn Hendrix upper caser and myself outlined the plan of care continued inpatient treatment until patient is hemodynamically stable and then acute rehab for healing of the wounds prior to figuring out if there is enough support at home may need hospital bed and a companions using multiple resources for the patient Time-Based Coding :: 55 min spent with patient and on the chart (including review of chart, obtaining history, exam, reviewing outside data, placing orders, documenting exam and treatment plan, and counseling patient) Exam Vital Signs (past 8 hours): - 05/22/25 07:00 05/22/25 07:00 05/22/25 08:00 Temperature Pulse Rate 76 Respiratory Rate 19 Blood Pressure 86/51 L 91/57 L Pulse Oximetry 98 Oxygen Delivery Method Fraction of Inspired Oxygen 05/22/25 08:00 05/22/25 09:00 05/22/25 09:00 Temperature Pulse Rate 80 80 Respiratory Rate 20 23 Blood Pressure 91/59 L Pulse Oximetry 99 97 Oxygen Delivery Method Fraction of Inspired Oxygen 05/22/25 09:00 05/22/25 09:21 05/22/25 09:56 Temperature 96.7 F L Pulse Rate 77 Respiratory Rate 22 Blood Pressure Pulse Oximetry 98 Oxygen Delivery Method Trach Collar Trach Collar Fraction of Inspired Oxygen 28 05/22/25 10:00 05/22/25 10:00 05/22/25 11:00 Temperature Pulse Rate 75 Respiratory Rate 21 Blood Pressure 84/57 L 88/57 L Pulse Oximetry 100 Oxygen Delivery Method Fraction of Inspired Oxygen 05/22/25 11:00 05/22/25 12:00 05/22/25 12:00 Temperature Pulse Rate 75 74 Respiratory Rate 19 19 Blood Pressure 88/55 L Pulse Oximetry 100 100 Oxygen Delivery Method Fraction of Inspired Oxygen 05/22/25 12:59 05/22/25 13:00 05/22/25 13:00 Temperature 97.8 F Pulse Rate 73 73 Respiratory Rate 18 20 Blood Pressure 91/60 Pulse Oximetry 100 99 Oxygen Delivery Method Fraction of Inspired Oxygen 05/22/25 13:00 Temperature Pulse Rate Respiratory Rate Blood Pressure Pulse Oximetry Oxygen Delivery Method Trach Collar Fraction of Inspired Oxygen Fraction of Inspired Oxygen 28 SaO2/FiO2 Ratio 353 Oxygen Delivery Method Trach Collar Oxygen Flow Rate 7 Objective Labs 05/22/25 06:21 05/22/25 06:21 Labs: Laboratory Results - last 24 hr 05/21/25 05/21/25 05/21/25 15:14 16:00 16:45 WBC RBC Hgb Hct MCV MCH MCHC RDW Plt Count Neut % (Auto) Lymph % (Auto) [place] % (Auto) Eos % (Auto) Baso % (Auto) Neut # (Auto) Lymph # (Auto) [place] # (Auto) Eos # (Auto) Baso # (Auto) Percent Retic 2.2 Sodium Potassium Chloride Carbon Dioxide BUN Creatinine Estimated GFR BUN/Creatinine Ratio Glucose POC Whole Bld Glucose 93 Calcium Iron 39 L TIBC 196 L % Saturation 20 Transferrin 132 L Total Bilirubin AST ALT Alkaline Phosphatase Total Protein Albumin Globulin Albumin/Globulin Ratio Vitamin B12 > 1000 H Folate 6.1 Blood Type B Positive Antibody Screen Negative Crossmatch See Detail 05/21/25 05/22/25 05/22/25 18:12 00:06 05:54 WBC RBC Hgb Hct MCV MCH MCHC RDW Plt Count Neut % (Auto) Lymph % (Auto) [place] % (Auto) Eos % (Auto) Baso % (Auto) Neut # (Auto) Lymph # (Auto) [place] # (Auto) Eos # (Auto) Baso # (Auto) Percent Retic Sodium Potassium Chloride Carbon Dioxide BUN Creatinine Estimated GFR BUN/Creatinine Ratio Glucose POC Whole Bld Glucose 108 H 88 112 H Calcium Iron TIBC % Saturation Transferrin Total Bilirubin AST ALT Alkaline Phosphatase Total Protein Albumin Globulin Albumin/Globulin Ratio Vitamin B12 Folate Blood Type Antibody Screen Crossmatch 05/22/25 05/22/25 06:21 11:30 WBC 5.3 RBC 3.14 L Hgb 8.5 L Hct 25.4 L MCV 81.0 MCH 26.9 MCHC 33.3 RDW 18.3 H Plt Count 300 Neut % (Auto) 65.2 Lymph % (Auto) 18.4 L [place] % (Auto) 8.9 Eos % (Auto) 6.1 H Baso % (Auto) 1.4 Neut # (Auto) 3500 Lymph # (Auto) 1000 L [place] # (Auto) 500 Eos # (Auto) 300 Baso # (Auto) 100 Percent Retic Sodium 133 L Potassium 4.0 Chloride 98 Carbon Dioxide 34 H BUN 13 Creatinine 0.32 L Estimated GFR > 60 BUN/Creatinine Ratio 40.6 H Glucose 92 POC Whole Bld Glucose 89 Calcium 7.7 L Iron TIBC % Saturation Transferrin Total Bilirubin 0.2 AST 85 H ALT 47 Alkaline Phosphatase 91 Total Protein 5.7 L Albumin 2.3 L Globulin 3.4 Albumin/Globulin Ratio 0.7 L Vitamin B12 Folate Blood Type Antibody Screen Crossmatch [facility] Medical History Excessive cerumen in both ear canals Chronic anticoagulation Iron deficiency anemia History of pulmonary embolism Status post radiation therapy Chronic anticoagulation Tracheostomy in place Sacral decubitus ulcer, stage III Protein calorie malnutrition Hyponatremia Dysphagia Recurrent aspiration pneumonia Depression, major, recurrent Jejunostomy tube present Influenza A Anemia Pneumonia 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 Father No problems noted. Social History marital status: unmarried,single details: Lives independantly with part-time caregivers household members: none lives independently: Yes occupational status: disabled Smoking Status: Never smoker alcohol intake: never substance use type: marijuana Assessment & Plan Time-Based Coding :: [TOTAL MINUTES] spent with patient and on the chart (including review of chart, obtaining history, exam, reviewing outside data, placing orders, documenting exam and treatment plan, and counseling patient) on [DATE].
[2025-05-22] MEDS: FLUDROCORTISONE 0.1 MG TABLET PO (15:30)
[2025-05-22] MEDS: HYDROCORTISONE 10 MG TABLET PO (15:30)
[2025-05-22] MEDS: SERTRALINE 50 MG TABLET 200 MG TUBE (21:03)
[2025-05-22] MEDS: ACETAMINOPHEN SUSP 650 MG/20.3 ML UDC TUBE (22:04)
[2025-05-23] VITALS (29 sets, daily range): BP systolic 91–113; BP diastolic 55–73; PULSE 72–86; RESP 18–28; TEMP 36.3–36.5; O2SAT 96–100
[2025-05-23] MEDS: MIDODRINE HCL 5 MG TABLET 10 MG TUBE ×3 (02:15→18:40)
[2025-05-23] MEDS: DEXTROSE 5%-0.9% NS 1,000 ML 64 ML IV ×2 (04:14→20:03)
[2025-05-23 06:53] LABS: Add Manual Diff / Slide Review NO; Hematocrit 24.6 % (41-53); Hemoglobin 8.2 g/dL (13.5-17.5); Lymphocytes Absolute Auto 900 /uL (1100-4500); Mean Corpuscular HGB Conc 33.4 % (30-36); Mean Corpuscular Hemoglobin 27.2 PG (26-34); Mean Corpuscular Volume 81.5 fL (80-100); Platelet Count 279 X10^3/uL (150-400)
[2025-05-23 06:58] LABS: Alanine Aminotransferase 55 IU/L (<50); Albumin 2.4 g/dL (3.5-5.0); Albumin Globulin Ratio 0.7 (1.0-2.8); Alkaline Phosphatase 91 U/L (38-126); Blood Urea Nitrogen 16 mg/dL (9-20); Calcium 7.7 mg/dL (8.4-10.2); Carbon Dioxide 32 mmol/L (22-32); Chloride 99 mmol/L (98-107); Estimated Glomerular Filt Rate > 60 mL/min (>60); Globulin 3.5 g/dL (1.7-4.1); Glucose 91 mg/dL (70-99); HEMOLYSIS < 15 (0-50); Potassium 3.9 mmol/L (3.4-5.1); Sodium 134 mmol/L (137-145); Total Protein 5.9 g/dL (6.3-8.2)
[2025-05-23] MEDS: ALBUTEROL/IPRATROPIUM 3 ML AMPUL INH ×2 (08:29→18:15)
[2025-05-23] MEDS: ACETAMINOPHEN SUSP 650 MG/20.3 ML UDC TUBE ×2 (10:31→16:27)
[2025-05-23] MEDS: HYDROCORTISONE 10 MG TABLET PO (10:33)
[2025-05-23] MEDS: BACLOFEN 10 MG TABLET 5 MG TUBE (10:33)
[2025-05-23] MEDS: PANTOPRAZOLE 40 MG VIAL IV (10:34)
[2025-05-23] MEDS: LACTOBACILLUS ACIDOPHILUS TABLET 1 EACH PO (10:34)
[2025-05-23] MEDS: FLUDROCORTISONE 0.1 MG TABLET PO (10:34)
--- NOTE | 2025-05-23 12:24 | P.PN_ITS ---
Subjective Subjective Date Patient Seen: 05/23/25 Time Patient Seen: 12:24 Interval history: Jonnie reportedly scratch that his incision and there was some clear fluid noted to be draining from the incision. Exam Vital Signs (past 8 hours): - 05/23/25 05:00 05/23/25 05:00 05/23/25 06:00 Temperature Pulse Rate 86 Respiratory Rate 21 Blood Pressure 96/61 98/63 Pulse Oximetry 100 Oxygen Delivery Method Fraction of Inspired Oxygen 05/23/25 06:00 05/23/25 07:00 05/23/25 07:00 Temperature Pulse Rate 76 72 Respiratory Rate 21 18 Blood Pressure 99/60 Pulse Oximetry 100 100 Oxygen Delivery Method Fraction of Inspired Oxygen 05/23/25 08:00 05/23/25 08:00 05/23/25 08:00 Temperature 97.5 F L Pulse Rate 75 Respiratory Rate 20 Blood Pressure 95/56 L Pulse Oximetry 100 Oxygen Delivery Method Fraction of Inspired Oxygen 05/23/25 09:00 05/23/25 09:00 05/23/25 09:07 Temperature Pulse Rate 75 78 Respiratory Rate 25 H 22 Blood Pressure 95/55 L Pulse Oximetry 98 99 Oxygen Delivery Method Trach Collar Fraction of Inspired Oxygen 28 05/23/25 10:00 05/23/25 10:00 05/23/25 10:06 Temperature Pulse Rate 77 Respiratory Rate 21 20 Blood Pressure 101/65 Pulse Oximetry 99 Oxygen Delivery Method Fraction of Inspired Oxygen Fraction of Inspired Oxygen 28 SaO2/FiO2 Ratio 353 Oxygen Delivery Method Trach Collar Oxygen Flow Rate 7 Narrative Exam Narrative: Incision currently looks clean and dry with no active drainage There is a small area of dehiscence of the epithelium in the midportion of the midline wound Objective Labs 05/23/25 06:35 05/23/25 06:35 Labs: Laboratory Results - last 24 hr 05/22/25 05/23/25 05/23/25 17:40 06:35 06:44 WBC 5.2 RBC 3.02 L Hgb 8.2 L Hct 24.6 L MCV 81.5 MCH 27.2 MCHC 33.4 RDW 18.0 H Plt Count 279 Neut % (Auto) 71.2 Lymph % (Auto) 18.2 L [place] % (Auto) 6.9 Eos % (Auto) 2.2 Baso % (Auto) 1.5 Neut # (Auto) 3700 Lymph # (Auto) 900 L [place] # (Auto) 400 Eos # (Auto) 100 Baso # (Auto) 100 Sodium 134 L Potassium 3.9 Chloride 99 Carbon Dioxide 32 BUN 16 Creatinine 0.30 L Estimated GFR > 60 BUN/Creatinine Ratio 53.3 H Glucose 91 POC Whole Bld Glucose 118 H 96 Calcium 7.7 L Total Bilirubin 0.1 L AST 97 H ALT 55 H Alkaline Phosphatase 91 Total Protein 5.9 L Albumin 2.4 L Globulin 3.5 Albumin/Globulin Ratio 0.7 L 05/23/25 11:45 WBC RBC Hgb Hct MCV MCH MCHC RDW Plt Count Neut % (Auto) Lymph % (Auto) [place] % (Auto) Eos % (Auto) Baso % (Auto) Neut # (Auto) Lymph # (Auto) [place] # (Auto) Eos # (Auto) Baso # (Auto) Sodium Potassium Chloride Carbon Dioxide BUN Creatinine Estimated GFR BUN/Creatinine Ratio Glucose POC Whole Bld Glucose 89 Calcium Total Bilirubin AST ALT Alkaline Phosphatase Total Protein Albumin Globulin Albumin/Globulin Ratio [facility] Medical History Excessive cerumen in both ear canals Chronic anticoagulation Iron deficiency anemia History of pulmonary embolism Status post radiation therapy Chronic anticoagulation Tracheostomy in place Sacral decubitus ulcer, stage III Protein calorie malnutrition Hyponatremia Dysphagia Recurrent aspiration pneumonia Depression, major, recurrent Jejunostomy tube present Influenza A Anemia Pneumonia 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 Father No problems noted. Social History marital status: unmarried,single details: Lives independantly with part-time caregivers household members: none lives independently: Yes occupational status: disabled Smoking Status: Never smoker alcohol intake: never substance use type: marijuana Assessment & Plan Post-op Postoperative Procedures: Procedures Operation Date: 05/09/25 15:00 Actual Procedure Side Surgeon p DIAGNOSTIC LAPAROSCOPY, DIAGNOSTIC, J-TUBE Alen Naqvi MD s Feeding Tube Insertion Alen Naqvi MD Postoperative plan narrative: Wounds appear to be healing well Located discontinue skin luis
[2025-05-23] MEDS: NYSTATIN CREAM 30 GM 1 APPLIC TOP ×2 (13:16→21:06)
--- NOTE | 2025-05-23 15:00 | P.PN_ITS ---
Subjective Subjective Date Patient Seen: 05/23/25 Interval history: Chief complaint: Sepsis secondary to a gastric perforation and leak into peritoneum of gastric contents around gastrostomy tube History of present illness: 05/09: Patient is seen at the request of Dr. Naqvi of surgery. Apparently the patient arrived last night with a question of PEG tube dysfunction. A PEG tube was replaced in the ED but was not functioning as expected after placement. The patient was admitted by surgery to the [facility] and this morning taken to the OR for investigation. Prior to this, I was alerted of the patient's clinical status and I did initiate lab tests, blood cultures, IV fluids, and IV cefepime for possible sepsis. [place] [address] with a normal lactic acid. In the OR, the PEG to appeared to be in a false passage. The gastrostomy channel was closed and a J-tube was placed. The peritoneum was washed out. It did not appear grossly that tube feeds were in the peritoneum and the patient was subsequently brought to the ICU where he was on norepinephrine through a peripheral IV and appeared to be very dry with no urine output after 2 L of fluids in the OR. The patient has a noncuffed tracheostomy in place, and severe skin injury to the sacrum including 1 area with possible induration and a wound which is about 2-3 cm in diameter. See media photos. General surgery was alerted to the condition of the back at this time. Micro was reviewed this patient has had MRSA and Pseudomonas in sputum in the past. He was at high risk for MDR infections. He was awake, and moaning, but unable to follow commands or track. 05/10: Patient is minimally responsive white count 11052 92% neutrophils VBG 7.25 pCO2 46 PO2 37 sodium 139 potassium 3.5 chloride 110 CO2 19 BUN 19 creatinine 0.54 Chest x-ray: There is a tracheostomy tube seen in place. Lungs and pleura: Significant volume loss is seen on the left side. There is left-sided interstitial prominence. There is blunting of the left costophrenic angle. 05/11: Patient is receiving chest physiotherapy there is improvement in the lung sounds on the left patient is more animated and regards with eyes 05/12: Secretions clearing with chest physiotherapy patient appears alert is nonverbal regards with eyes only 05/13: Patient is more alert good response to chest physiotherapy resumed tube feeding and is tolerating per J-tube sputum cultures came back: 05/15: Experienced significant GI bleed yesterday with hemoglobin of 7.0, up to 8.6 with unit blood transfusion. This morning's hemoglobin is blocked by poor access so a PICC line is being placed. EGD and colonoscopy were planned by General surgery but overnight the patient experienced hypotension into the 70s systolic so is now on low-dose Levophed. Also the Colyte prep through the J- tube has not produced significant rectal output yet. The white blood count is pending. He remains on a D5 infusion after blood sugars dropped in the 60s overnight. He is on room air through his trach mask. He remains on cefepime and vancomycin. PICC line placed 05/16: No further active bleeding noted. The patient remains mildly hypotensive. His Levophed was stopped with blood pressure 83/46, and MAP 62. He is making good clear yellow urine output with evidence of significant 3rd spacing in arms and legs. He is awake and nods yes and no to questions, denies pain. 05/17: The hemoglobin dropped again below 8 without any outward signs of ongoing GI bleeding. He was resumed on TPN last night. He remains quite edematous from the anasarca/low albumin oncotic pressures. He continues to have liquid stools. His total IV fluid rate right now is between 80 and 90. 05/18: Hemoglobin 7.8 today. Creatinine 0.29 and potassium 3.5. He is transitioning from the TPN back to tube feeding today. The possibility of transfer to a long-term acute care unit in [place] was brought up and discussed. Unfortunately his insurance is not accepted at that location. His blood pressure dropped to 79/52 when the mild dose of Levophed was stopped so that was resumed. He is discussed with Dr. Escalona today. 05/19: Hemoglobin 8.1 today. Blood sugars range from 92 up to 196. He is now off the TPN and back on trickle feeds/titration with the J-tube currently at 10 mL/hr. He continues to receive IV fluid at 64 mL/hr. He no longer has the impressive levels of peripheral edema/third-spacing/puffiness in his extremities. He is much more alert today. Yesterday he was able to visit with his mother and obviously enjoyed their interaction, attempting to talk. He was started back on his midodrine yesterday and the Levophed was weaned off but had to be resumed. 05/20: Hemoglobin dropped again overnight from 8.1 down to 7.2 white count is 4.3 sodium 132 potassium 3.8 albumin 2.1 tube feeding increased to 20 mL an hour 05/21: Other poor historian hour. Patient has been on and off Levophed for hypotension hemoglobin dropped to 7.1 1 unit ordered 05/22: No new complaints no further need for Levophed 24 hour urine for cortisol was completed 1 unit of blood increased hemoglobin to 8.5 05/23: No complaints he is more animated and interactive blood pressure now 113 systolic with addition of Florinef and hydrocortisone 24 urine cortisol is still pending but patient seems to be responding to supplemental adrenal and corticosteroid. At this point patient is clinically stable and can pursue acute rehab through Medicare 1. Staphylococcus aureus M.I.C. RX --------- --- * Daptomycin 0.5 S * Vancomycin 1 S * Ciprofloxacin >=8 R * Clindamycin 0.25 S * Doxycycline <=0.5 S * Erythromycin <=0.25 S * Gentamicin <=0.5 S * Levofloxacin 4 R * Linezolid 2 S * Moxifloxacin 2 R * Oxacillin Ap 0.5 S * Rifampin <=0.5 S * Tetracycline <=1 S * Trimethoprim/Sulfamethoxazole <=10 S 2. Pseudomonas aeruginosa M.I.C. RX --------- --- * Cefepime 2 S * Ceftazidime 2 S * Ciprofloxacin 0.12 S * Levofloxacin 0.5 S * Meropenem 1 S * Piperacillin/Tazobactam 8 S 3. Citrobacter freundii M.I.C. RX --------- --- * Amoxicillin/Clavulanate R * Aztreonam <=1 S * Cefepime E-test 0.064 S * Cefuroxime R * Ciprofloxacin <=0.06 S * Ertapenem <=0.12 S * Gentamicin <=1 S * Levofloxacin <=0.12 S * Meropenem <=0.25 S * Tetracycline <=1 S Review of systems: Incapable due to cognitive limitations Physical examination: cachectic and chronically ill in appearance . Regards with eyes He was a tracheostomy in place. Very weak respiratory effort gross rhonchi on left Heart sounds distant His abdomen is flat, and non tender to palpation. A J-tube is in place. Extremities are atrophied and there was no edema. large area of skin pressure injury over the sacrum and lower back as well as a wound in the right paraspinal area above the pelvis. See media photos for this. Assessment and plan: Peg tube in false lumen, removed, Closure of gastrostomy track and placement of J-tube, active. * Appreciate surgery expertise * Tube feeding advancing well per surgery Septic shock with source unclear, differential of lung with history of MRSA and Pseudomonas versus peritonitis verses back infected wounds. * Off of all antimicrobials Severe soft tissue injury of sacrum with area of induration and a wound of 2 cm in diameter, active. * Wound care team * Acute rehab needed Chronic uncuffed tracheostomy, active. * Trach managemeny Severe volume depletion, active. Resolved * Continue intravenous fluids Pseudobulbar palsy, and spastic left hemiparesis with long-term tracheostomy and history of recurrent aspiration pneumonia. y 9/1Chronic medical conditions: * Iron deficiency anemia * History of pulmonary embolism * Status post radiation therapy * Chronic anticoagulation * Tracheostomy in place * Sacral decubitus ulcer, stage III * Protein calorie malnutrition * Hyponatremia * Dysphagia * Recurrent aspiration pneumonia * Depression, major, recurrent * Jejunostomy tube present * Anemia * Pneumonia * Spastic hemiparesis of left nondominant side due to cerebrovascular diseaseDVT prophylaxis: * SCDs only due to bleeding Code status: * FULL CODE * Mother is proxy decision maker. * Prognosis is better * Discussed with PCP, Dr. Marshall. Disposition: * Met with mother primary care physician Cyn Hendrix bottle caser and myself outlined the plan of care continued inpatient treatment until patient is hemodynamically stable and then acute rehab for healing of the wounds prior to figuring out if there is enough support at home may need hospital bed and a companions using multiple resources for the patient Time-Based Coding :: 55 min spent with patient and on the chart (including review of chart, obtaining history, exam, reviewing outside data, placing orders, documenting exam and treatment plan, and counseling patient) Exam Vital Signs (past 8 hours): - 05/23/25 08:00 05/23/25 08:00 05/23/25 08:00 Temperature 97.5 F L Pulse Rate 75 Respiratory Rate 20 Blood Pressure 95/56 L Pulse Oximetry 100 Oxygen Delivery Method Fraction of Inspired Oxygen 05/23/25 09:00 05/23/25 09:00 05/23/25 09:07 Temperature Pulse Rate 75 78 Respiratory Rate 25 H 22 Blood Pressure 95/55 L Pulse Oximetry 98 99 Oxygen Delivery Method Trach Collar Fraction of Inspired Oxygen 28 05/23/25 10:00 05/23/25 10:00 05/23/25 10:06 Temperature Pulse Rate 77 Respiratory Rate 21 20 Blood Pressure 101/65 Pulse Oximetry 99 Oxygen Delivery Method Fraction of Inspired Oxygen 05/23/25 11:00 05/23/25 11:00 05/23/25 12:00 Temperature 97.4 F L Pulse Rate 76 Respiratory Rate 20 Blood Pressure 104/70 Pulse Oximetry 99 Oxygen Delivery Method Fraction of Inspired Oxygen 05/23/25 12:00 05/23/25 12:00 05/23/25 13:00 Temperature Pulse Rate 75 75 Respiratory Rate 21 20 Blood Pressure 111/71 Pulse Oximetry 100 100 Oxygen Delivery Method Fraction of Inspired Oxygen 05/23/25 14:15 Temperature Pulse Rate 78 Respiratory Rate 20 Blood Pressure Pulse Oximetry 96 Oxygen Delivery Method Trach Collar Fraction of Inspired Oxygen 28 Fraction of Inspired Oxygen 28 SaO2/FiO2 Ratio 353 Oxygen Delivery Method Trach Collar Oxygen Flow Rate 7 Objective Labs 05/23/25 06:35 05/23/25 06:35 Labs: Laboratory Results - last 24 hr 05/22/25 05/23/25 05/23/25 17:40 06:35 06:44 WBC 5.2 RBC 3.02 L Hgb 8.2 L Hct 24.6 L MCV 81.5 MCH 27.2 MCHC 33.4 RDW 18.0 H Plt Count 279 Neut % (Auto) 71.2 Lymph % (Auto) 18.2 L [place] % (Auto) 6.9 Eos % (Auto) 2.2 Baso % (Auto) 1.5 Neut # (Auto) 3700 Lymph # (Auto) 900 L [place] # (Auto) 400 Eos # (Auto) 100 Baso # (Auto) 100 Sodium 134 L Potassium 3.9 Chloride 99 Carbon Dioxide 32 BUN 16 Creatinine 0.30 L Estimated GFR > 60 BUN/Creatinine Ratio 53.3 H Glucose 91 POC Whole Bld Glucose 118 H 96 Calcium 7.7 L Total Bilirubin 0.1 L AST 97 H ALT 55 H Alkaline Phosphatase 91 Total Protein 5.9 L Albumin 2.4 L Globulin 3.5 Albumin/Globulin Ratio 0.7 L 05/23/25 11:45 WBC RBC Hgb Hct MCV MCH MCHC RDW Plt Count Neut % (Auto) Lymph % (Auto) [place] % (Auto) Eos % (Auto) Baso % (Auto) Neut # (Auto) Lymph # (Auto) [place] # (Auto) Eos # (Auto) Baso # (Auto) Sodium Potassium Chloride Carbon Dioxide BUN Creatinine Estimated GFR BUN/Creatinine Ratio Glucose POC Whole Bld Glucose 89 Calcium Total Bilirubin AST ALT Alkaline Phosphatase Total Protein Albumin Globulin Albumin/Globulin Ratio [facility] Medical History Excessive cerumen in both ear canals Chronic anticoagulation Iron deficiency anemia History of pulmonary embolism Status post radiation therapy Chronic anticoagulation Tracheostomy in place Sacral decubitus ulcer, stage III Protein calorie malnutrition Hyponatremia Dysphagia Recurrent aspiration pneumonia Depression, major, recurrent Jejunostomy tube present Influenza A Anemia Pneumonia 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 Father No problems noted. Social History marital status: unmarried,single details: Lives independantly with part-time caregivers household members: none lives independently: Yes occupational status: disabled Smoking Status: Never smoker alcohol intake: never substance use type: marijuana Assessment & Plan Time-Based Coding :: [TOTAL MINUTES] spent with patient and on the chart (including review of chart, obtaining history, exam, reviewing outside data, placing orders, documenting exam and treatment plan, and counseling patient) on [DATE].
--- NOTE | 2025-05-23 17:33 | PC.NURSE ---
[address] Naqvi to remove midline luis, PO#[id number]. This nurse cleaned luis with sterile water and removed from midline incision, as well as old Peg tube site. Pt tolerated procedure well, midline incision covered with aquacell dressing. No further pt needs.
[2025-05-23] MEDS: KETOROLAC 30 MG/ML VIAL 15 MG IV (18:40)
[2025-05-23] MEDS: SERTRALINE 50 MG TABLET 200 MG TUBE (21:02)
[2025-05-23] MEDS: NEOMYCIN/POLYMYXIN/BACITRA UD OINT 1 EACH TOP (21:03)
[2025-05-23] MEDS: SODIUM CHLORIDE 0.9% FLUSH 10 ML IV (21:20)
[2025-05-24] VITALS (31 sets, daily range): BP systolic 99–110; BP diastolic 56–81; PULSE 69–86; RESP 18–26; TEMP 36.1–37.6; O2SAT 94–100
[2025-05-24] MEDS: MIDODRINE HCL 5 MG TABLET 10 MG TUBE ×3 (02:02→17:54)
[2025-05-24] MEDS: ACETAMINOPHEN SUSP 650 MG/20.3 ML UDC TUBE ×2 (05:21→17:54)
[2025-05-24] MEDS: LACTOBACILLUS ACIDOPHILUS TABLET 1 EACH PO (08:48)
[2025-05-24] MEDS: BACLOFEN 10 MG TABLET 5 MG TUBE (08:48)
[2025-05-24] MEDS: FLUDROCORTISONE 0.1 MG TABLET PO (08:48)
[2025-05-24] MEDS: SODIUM CHLORIDE 0.9% FLUSH 10 ML IV ×2 (08:48→22:14)
[2025-05-24] MEDS: PANTOPRAZOLE 40 MG VIAL IV (08:48)
[2025-05-24] MEDS: SODIUM HYPOCHLORITE 473 ML SOLUTION TOP (08:48)
[2025-05-24] MEDS: HYDROCORTISONE 10 MG TABLET PO (08:48)
[2025-05-24] MEDS: NYSTATIN CREAM 30 GM 1 APPLIC TOP ×2 (08:49→22:14)
[2025-05-24 08:53] LABS: Add Manual Diff / Slide Review NO; Hematocrit 21.4 % (41-53); Hemoglobin 7.2 g/dL (13.5-17.5); Lymphocytes Absolute Auto 900 /uL (1100-4500); Mean Corpuscular HGB Conc 33.5 % (30-36); Mean Corpuscular Hemoglobin 27.9 PG (26-34); Mean Corpuscular Volume 83.4 fL (80-100); Platelet Count 209 X10^3/uL (150-400)
[2025-05-24 09:05] LABS: Alanine Aminotransferase 96 IU/L (<50); Albumin 2.2 g/dL (3.5-5.0); Albumin Globulin Ratio 0.7 (1.0-2.8); Alkaline Phosphatase 86 U/L (38-126); Blood Urea Nitrogen 17 mg/dL (9-20); Calcium 6.9 mg/dL (8.4-10.2); Carbon Dioxide 29 mmol/L (22-32); Chloride 105 mmol/L (98-107); Estimated Glomerular Filt Rate > 60 mL/min (>60); Globulin 3.1 g/dL (1.7-4.1); Glucose 391 mg/dL (70-99); HEMOLYSIS < 15 (0-50); Potassium 3.4 mmol/L (3.4-5.1); Sodium 136 mmol/L (137-145); Total Protein 5.3 g/dL (6.3-8.2)
[2025-05-24] MEDS: ALBUTEROL/IPRATROPIUM 3 ML AMPUL INH ×2 (09:05→20:40)
[2025-05-24] MEDS: DEXTROSE 5%-0.9% NS 1,000 ML 64 ML IV (11:01)
--- NOTE | 2025-05-24 11:07 | DIET.CONS ---
Addendum entered by Flakita Hopkins 05/27/25 10:35: Pt d/c home over weekend. Recommend pt returns to his home formula as follows: Upon discharge: Patient tolerates [employer] Peptide 1.5 formula at home. Recommend pt to return back to this formula to prevent diarrhea and further skin breakdown and for best absorption with pt's hx of malabsorption and protein calorie malnutrition. The patient's discharge formula recommendations are as follows: -Continuous [employer] Peptide 1.5 via J-tube at goal rate of 55 mL/hr. -Flush 140 mL of free water Q3H. -Due to wound healing, recommend 1 ProSource TF Liquid Protein (45 mL with 11 grams protein) added to patients J-tube 1 time daily, administrating per packet instructions. Start upon discharge and continue for 2 weeks to meet protein needs required. -Transition to nocturnal or cyclic feeds based on patient/family preference with assistance from [facility] dietitian team -Provide banatrol packet (40 kcals, 2 g fiber) TID administrating per packet instructions as needed for stool formation. Tube feeds met 1980 kcals and 98 g protein (not including temporary prosource protein packet or PRN banatrol). Feeds plus free water flushes Q3H meet 2044 mL fluids daily. 3. Follow up with outpatient dietitian for management of feeds and tolerance. Dietary referral still in place. Will coordinate with scheduling team for 2-3 week check in after d/c. EER: 1900 kcals (25 kcals/kg per BMI) 100-115 g protein (1.25-1.5 g/kg per ICU and wounds), 0235-0493 mL fluids (1mL per kcal vs 30 mL/kg) Original Note: Dietary Consultation Note Admission Date: 05/09/2025 14:47 Assessment: f/u Per rounds, hospitalist to d/c D5 IVF now and all fluid intake via feeds. Adjusted order below. Additionally, pt can be switched to Jevity 1.2 d/t formula availability and as pt no longer on pressors. Hx of using peptide-based formula at home d/t hx of malabsorption and protein calorie malnutrition. Pt to d/c to SNF. Ht: 174.73 cm Wt: 77.111 kg BMI: 25.2 UBW: 160 lb Last BM: 05/24/25 (05/24/25 09:00) MNA: Krishan Score: 11 Diet: 05/15/25 00:01 NPO Diet Diet Modifications: NPO Type: Strict 05/24/25 Lunch Tube Feeding Diet Diet Modifications: TF Supplement type: Pivot 1.5 saurav TF mode of delivery: Continuous Starting flow rate mL/hr: 50 Flow rate goal mL/hr: 50 Titration Schedule to reach Goal Rate: - Max total daily volume in mL: 2,500 Free fluid: 140 mL Free Water Frequency: Q4H Comment: 1 Banatrol packet (.39 or .38 oz) per packet instructions TID PRN for stool formation Nutrition Percent Meal Consumed patient is NPO feeding tube 05/23/25 18:00 Percent Meal Consumed pt is NPO feeding tube supplement 05/22/25 18:00 Type of Feeding Tube Jejunostomy 05/23/25 15:09 Labs: RBC 2.57 X10^6/uL (4.5-5.9) L 05/24/25 08:25 Hgb 7.2 g/dL (13.5-17.5) L 05/24/25 08:25 Hct 21.4 % (41-53) L 05/24/25 08:25 Creatinine 0.29 mg/dL (0.66-1.25) L 05/24/25 08:25 Lactate 1.2 mmol/L (0.7-2.1) 05/10/25 10:00 Iron 39 ug/dL (49-181) L 05/21/25 16:00 % Saturation 20 % (20-50) 05/21/25 16:00 Nutrition Diagnosis: -Altered GI function r/t changes in GI tract motility as evidenced by copious loose stool, inadequate soluble fiber -Increased nutrient needs (protein) r/t healing needs as evidenced by skin breakdown and wounds -Severe chronic Protein Calorie Malnutrition r/t altered GI tract motility and increased needs (protein) as evidenced by severe muscle wasting in temples and deltoid, severe buccal and orbital subcutaneous fat loss, <60% of estimated protein needs due to malabsorption and wound healing needs for >1 month Interventions: Due to formula availability and no longer on pressors, can switch to Jevity 1.2 and close monitoring of tolerance: 1. Continuous Jevity 1.2 at 60 mL/hr. 1 ProSource protein packet (11 g protein, 40 kcals each) TID per packet instructions. Flush 140 mL Q4H of free water. This provides 1848 kcals (97% of estimated calorie needs), 113 g protein (100% protein needs), and 2180 mL fluids 2. 1 Banatrol packet (.38 ounce packet, 2 g fiber) TID per day PRN for stool formation. 3. Once discharged - Transition to nocturnal or cyclic feeds based on patient/family preference with assistance from [facility] dietitian team 4. Follow up with outpatient dietitian for management of feeds and tolerance. Dietary referral still in place. EER: 1900 kcals (25 kcals/kg per BMI) 100-115 g protein (1.25-1.5 g/kg per wound), 2140-1517 mL fluids (1mL per kcal vs 30 mL/kg) Monitoring/Evaluations: tolerance, d/c plan Electronically Signed by: Flakita Hopkins 05/24/25 11:07 Clinical Dietitian [address] [address]
--- NOTE | 2025-05-24 12:25 | CM.DPC ---
DCP SNF Planning Cont: Per MD, pt off Pressors and will discontinue his D5 and Floriculturist adjusting pt's formulary to adequately meet his fluid needs and dietary needs now that medications adjusted and completed her note for current recommendations. SW spoke to admissions at [facility] and they reviewed closely with their team and DON and decline pt at this time as they feel his needs are too high of acuity for their staff. Per previous SW note, pt's mother currently adamant not to go to LT[facility] at this time but agreeable to SNF attempts with ultimate plan of return home with [facility] C[facility] again. SW expanded SNF attempts to following facilities and sent med list, dietary note, RN notes, wound care, MD notes to review[facility] reviewing for SNF rehab under pt's now active Medicare starting 05/20/25. Possible barriers to SNF is pt's higher acuity needs with chronic uncuffed trach and RT needs. If SNF's cannot accept, then will need to have further Goals of Care discussion to revist options of LTAC vs Hospice?? [facility]
--- NOTE | 2025-05-24 13:34 | P.PN_ITS ---
Subjective Subjective Date Patient Seen: 05/24/25 Time Patient Seen: 12:35 Interval history: Chief complaint: Sepsis secondary to a gastric perforation and leak into peritoneum of gastric contents around gastrostomy tube History of present illness: 05/09: Patient is seen at the request of Dr. Naqvi of surgery. Apparently the patient arrived last night with a question of PEG tube dysfunction. A PEG tube was replaced in the ED but was not functioning as expected after placement. The patient was admitted by surgery to the [facility] and this morning taken to the OR for investigation. Prior to this, I was alerted of the patient's clinical status and I did initiate lab tests, blood cultures, IV fluids, and IV cefepime for possible sepsis. [place] [id number] with a normal lactic acid. In the OR, the PEG to appeared to be in a false passage. The gastrostomy channel was closed and a J-tube was placed. The peritoneum was washed out. It did not appear grossly that tube feeds were in the peritoneum and the patient was subsequently brought to the ICU where he was on norepinephrine through a peripheral IV and appeared to be very dry with no urine output after 2 L of fluids in the OR. The patient has a noncuffed tracheostomy in place, and severe skin injury to the sacrum including 1 area with possible induration and a wound which is about 2-3 cm in diameter. See media photos. General surgery was alerted to the condition of the back at this time. Micro was reviewed this patient has had MRSA and Pseudomonas in sputum in the past. He was at high risk for MDR infections. He was awake, and moaning, but unable to follow commands or track. Interval history: 05/10: Patient is minimally responsive white count 91302 92% neutrophils VBG 7.25 pCO2 46 PO2 37 sodium 139 potassium 3.5 chloride 110 CO2 19 BUN 19 creatinine 0.54 05/11: Patient is receiving chest physiotherapy there is improvement in the lung sounds on the left patient is more animated and regards with eyes 05/12: Secretions clearing with chest physiotherapy patient appears alert is nonverbal regards with eyes only 05/13: Patient is more alert good response to chest physiotherapy resumed tube feeding and is tolerating per J-tube sputum cultures came back: 05/15: Experienced significant GI bleed yesterday with hemoglobin of 7.0, up to 8.6 with unit blood transfusion. This morning's hemoglobin is blocked by poor access so a PICC line is being placed. EGD and colonoscopy were planned by General surgery but overnight the patient experienced hypotension into the 70s systolic so is now on low-dose Levophed. Also the Colyte prep through the J- tube has not produced significant rectal output yet. The white blood count is pending. He remains on a D5 infusion after blood sugars dropped in the 60s overnight. He is on room air through his trach mask. He remains on cefepime and vancomycin. PICC line placed 05/16: No further active bleeding noted. The patient remains mildly hypotensive. His Levophed was stopped with blood pressure 83/46, and MAP 62. He is making good clear yellow urine output with evidence of significant 3rd spacing in arms and legs. He is awake and nods yes and no to questions, denies pain. 05/17: The hemoglobin dropped again below 8 without any outward signs of ongoing GI bleeding. He was resumed on TPN last night. He remains quite edematous from the anasarca/low albumin oncotic pressures. He continues to have liquid stools. His total IV fluid rate right now is between 80 and 90. 05/18: Hemoglobin 7.8 today. Creatinine 0.29 and potassium 3.5. He is transitioning from the TPN back to tube feeding today. The possibility of transfer to a long-term acute care unit in [place] was brought up and discussed. Unfortunately his insurance is not accepted at that location. His blood pressure dropped to 79/52 when the mild dose of Levophed was stopped so that was resumed. He is discussed with Dr. Escalona today. 05/19: Hemoglobin 8.1 today. Blood sugars range from 92 up to 196. He is now off the TPN and back on trickle feeds/titration with the J-tube currently at 10 mL/hr. He continues to receive IV fluid at 64 mL/hr. He no longer has the impressive levels of peripheral edema/third-spacing/puffiness in his extremities. He is much more alert today. Yesterday he was able to visit with his mother and obviously enjoyed their interaction, attempting to talk. He was started back on his midodrine yesterday and the Levophed was weaned off but had to be resumed. 05/20: Hemoglobin dropped again overnight from 8.1 down to 7.2 white count is 4.3 sodium 132 potassium 3.8 albumin 2.1 tube feeding increased to 20 mL an hour 05/21: Other poor historian hour. Patient has been on and off Levophed for hypotension hemoglobin dropped to 7.1 1 unit ordered 05/22: No new complaints no further need for Levophed 24 hour urine for cortisol was completed 1 unit of blood increased hemoglobin to 8.5 05/23: No complaints he is more animated and interactive blood pressure now 113 systolic with addition of Florinef and hydrocortisone 24 urine cortisol is still pending but patient seems to be responding to supplemental adrenal and corticosteroid. At this point patient is clinically stable and can pursue acute rehab through Medicare 05/24: The patient remains clinically stable without active issues, awaiting placement. IV fluids are stopped and tube feeds adjusted. Current formula: Continuous Pivot 1.5 at 50 mL/hr. 150 mL free water flush Q4H, plan to change tomorrow to continuous Jevity 1.2 at 60 mL/hr. 1 [employer] protein packet (11 g protein, 40 kcals each) TID per packet instructions. Flush 140 mL Q4H of free water, titrate up to assess tolerance as this formula has more fiber. Exam Vital Signs (past 8 hours): - 05/24/25 06:00 05/24/25 07:00 05/24/25 08:00 Temperature 98 F Pulse Rate 80 80 Respiratory Rate 20 18 Blood Pressure Pulse Oximetry 100 100 Oxygen Delivery Method Fraction of Inspired Oxygen 05/24/25 08:00 05/24/25 08:25 05/24/25 09:00 Temperature Pulse Rate 86 81 Respiratory Rate 26 H 22 Blood Pressure Pulse Oximetry 100 99 Oxygen Delivery Method Venturi Mask Fraction of Inspired Oxygen 05/24/25 09:05/24/25 10:00 05/24/25 10:22 Temperature Pulse Rate 80 81 81 Respiratory Rate 20 21 22 Blood Pressure Pulse Oximetry 99 100 99 Oxygen Delivery Method Trach Collar Fraction of Inspired Oxygen 28 05/24/25 10:22 05/24/25 10:28 05/24/25 11:00 Temperature Pulse Rate 81 79 Respiratory Rate 23 Blood Pressure 99/56 L 99/56 L Pulse Oximetry 99 Oxygen Delivery Method Fraction of Inspired Oxygen 05/24/25 12:00 05/24/25 12:00 05/24/25 13:00 Temperature 97.5 F L Pulse Rate 83 78 Respiratory Rate 22 21 Blood Pressure Pulse Oximetry 99 Oxygen Delivery Method Fraction of Inspired Oxygen Fraction of Inspired Oxygen 28 SaO2/FiO2 Ratio 353 Oxygen Delivery Method Trach Collar Oxygen Flow Rate 7 Narrative Exam Narrative: Cachectic, pale and chronically ill in appearance . Asleep and does not respond to voice or touch. Trach mask in place Very weak respiratory effort CTAB Heart sounds distant, RRR without murmur His abdomen is flat, and non tender to palpation. A J-tube is in place. Extremities are atrophied and there is puffiness of the hands Large area of skin pressure injury over the sacrum and lower back as well as a wound in the right paraspinal area above the pelvis. See media photos for this. Not visualized today. Padded boots on heels. Electric Wheelchair in the room. Objective Labs 05/24/25 08:25 05/24/25 08:25 Labs: Laboratory Results - last 24 hr 05/23/25 05/24/25 05/24/25 18:10 00:08 06:13 WBC RBC Hgb Hct MCV MCH MCHC RDW Plt Count Neut % (Auto) Lymph % (Auto) [place] % (Auto) Eos % (Auto) Baso % (Auto) Neut # (Auto) Lymph # (Auto) [place] # (Auto) Eos # (Auto) Baso # (Auto) Sodium Potassium Chloride Carbon Dioxide BUN Creatinine Estimated GFR BUN/Creatinine Ratio Glucose POC Whole Bld Glucose 91 93 95 Calcium Total Bilirubin AST ALT Alkaline Phosphatase Total Protein Albumin Globulin Albumin/Globulin Ratio 05/24/25 08:25 WBC 4.5 RBC 2.57 L Hgb 7.2 L Hct 21.4 L MCV 83.4 MCH 27.9 MCHC 33.5 RDW 18.5 H Plt Count 209 Neut % (Auto) 67.7 Lymph % (Auto) 19.4 L [place] % (Auto) 7.9 Eos % (Auto) 3.7 Baso % (Auto) 1.3 Neut # (Auto) 3000 Lymph # (Auto) 900 L [place] # (Auto) 400 Eos # (Auto) 200 Baso # (Auto) 100 Sodium 136 L Potassium 3.4 Chloride 105 Carbon Dioxide 29 BUN 17 Creatinine 0.29 L Estimated GFR > 60 BUN/Creatinine Ratio 58.6 H Glucose 391 H D POC Whole Bld Glucose Calcium 6.9 L Total Bilirubin < 0.1 L AST 157 H ALT 96 H Alkaline Phosphatase 86 Total Protein 5.3 L Albumin 2.2 L Globulin 3.1 Albumin/Globulin Ratio 0.7 L PFSH Medical History Anemia Cerebral palsy Chronic anticoagulation Chronic anticoagulation Depression Depression, major, recurrent Difficulty with speech Dysarthria Dysphagia Excessive cerumen in both ear canals Former smoker Gingivitis History of pulmonary embolism Hyponatremia Influenza A Iron deficiency anemia Jejunostomy tube present Pneumonia Protein calorie malnutrition Pseudobulbar palsy Recurrent aspiration pneumonia Sacral decubitus ulcer, stage III 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 Father No problems noted. Social History marital status: unmarried,single details: Lives independantly with part-time caregivers household members: none lives independently: Yes occupational status: disabled Smoking Status: Never smoker alcohol intake: never substance use type: marijuana Assessment & Plan Assessment & Plan narrative: Peg tube in false lumen, removed, Closure of gastrostomy track and placement of J-tube, active. * Appreciate surgery expertise * Tube feeding advancing well per surgery Septic shock with source unclear, differential of lung with history of MRSA and Pseudomonas versus peritonitis verses back infected wounds. * Off of all antimicrobials * Urine free cortisol /24 hours from 05/21 pending * Continue fludrocortisone 0.1mg daily for possible adrenal insufficiency Severe soft tissue injury of sacrum with area of induration and a wound of 2 cm in diameter, active. * Wound care team * Acute rehab needed Chronic uncuffed tracheostomy, active. * Trach managemeny Severe volume depletion, active. Resolved * stop IVF, switch to enteral feedings/fluids Pseudobulbar palsy, and spastic left hemiparesis with long-term tracheostomy and history of recurrent aspiration pneumonia. Chronic medical conditions: * Iron deficiency anemia * History of pulmonary embolism * Status post radiation therapy * Chronic anticoagulation * Tracheostomy in place * Sacral decubitus ulcer, stage III * Protein calorie malnutrition * Hyponatremia * Dysphagia * Recurrent aspiration pneumonia * Depression, major, recurrent * Jejunostomy tube present * Anemia * Pneumonia * Spastic hemiparesis of left nondominant side due to cerebrovascular diseaseDVT prophylaxis: * SCDs only due to bleeding Code status: * FULL CODE * Mother is proxy decision maker. * Prognosis is improving. Disposition: * Team rounds today. Awaiting placement for wound healing before ultimate return home. Will benefit from custodial facility placement. PROFEE Stripper Color Document charge(s): Yes Charge Codes Subsequent inpatient/observation care: [id number]
[2025-05-24] MEDS: BACLOFEN 10 MG TABLET 5 MG PO (14:31)
[2025-05-24] MEDS: KETOROLAC 30 MG/ML VIAL 15 MG IV (16:51)
[2025-05-24] MEDS: LOPERAMIDE 2 MG CAPSULE PO (17:54)
[2025-05-24] MEDS: SERTRALINE 50 MG TABLET 200 MG TUBE (22:12)
[2025-05-24] MEDS: NEOMYCIN/POLYMYXIN/BACITRA UD OINT 1 EACH TOP (22:13)
[2025-05-25] VITALS (33 sets, daily range): BP systolic 94–103; BP diastolic 59–66; PULSE 63–81; RESP 10–35; TEMP 35.7–37.2; O2SAT 85–100
[2025-05-25] MEDS: MIDODRINE HCL 5 MG TABLET 10 MG TUBE ×3 (02:52→20:44)
[2025-05-25 06:34] LABS: Add Manual Diff / Slide Review NO; Hematocrit 24.0 % (41-53); Hemoglobin 8.0 g/dL (13.5-17.5); Lymphocytes Absolute Auto 1300 /uL (1100-4500); Mean Corpuscular HGB Conc 33.4 % (30-36); Mean Corpuscular Hemoglobin 27.3 PG (26-34); Mean Corpuscular Volume 81.8 fL (80-100); Platelet Count 258 X10^3/uL (150-400)
[2025-05-25 06:45] LABS: Alanine Aminotransferase 130 IU/L (<50); Albumin 2.4 g/dL (3.5-5.0); Albumin Globulin Ratio 0.7 (1.0-2.8); Alkaline Phosphatase 96 U/L (38-126); Blood Urea Nitrogen 21 mg/dL (9-20); Calcium 7.8 mg/dL (8.4-10.2); Carbon Dioxide 32 mmol/L (22-32); Chloride 99 mmol/L (98-107); Estimated Glomerular Filt Rate > 60 mL/min (>60); Globulin 3.5 g/dL (1.7-4.1); Glucose 74 mg/dL (70-99); HEMOLYSIS < 15 (0-50); Potassium 4.4 mmol/L (3.4-5.1); Sodium 134 mmol/L (137-145); Total Protein 5.9 g/dL (6.3-8.2)
[2025-05-25] MEDS: NEOMYCIN/POLYMYXIN/BACITRA UD OINT 1 EACH TOP ×2 (08:53→20:46)
[2025-05-25] MEDS: PANTOPRAZOLE 40 MG VIAL IV (08:53)
[2025-05-25] MEDS: LACTOBACILLUS ACIDOPHILUS TABLET 1 EACH PO (08:53)
[2025-05-25] MEDS: FUROSEMIDE 40 MG/4 ML VIAL IV (08:53)
[2025-05-25] MEDS: HYDROCORTISONE 10 MG TABLET PO (08:54)
[2025-05-25] MEDS: BACLOFEN 10 MG TABLET 5 MG TUBE (08:54)
[2025-05-25] MEDS: FLUDROCORTISONE 0.1 MG TABLET PO (08:57)
[2025-05-25] MEDS: NYSTATIN CREAM 30 GM 1 APPLIC TOP ×2 (08:58→20:46)
[2025-05-25] MEDS: SODIUM CHLORIDE 0.9% FLUSH 10 ML IV ×2 (08:58→20:45)
[2025-05-25] MEDS: SODIUM HYPOCHLORITE 473 ML SOLUTION TOP (08:59)
[2025-05-25] MEDS: ALBUTEROL/IPRATROPIUM 3 ML AMPUL INH ×2 (09:07→19:12)
--- NOTE | 2025-05-25 11:13 | P.PN_ITS ---
Subjective Subjective Date Patient Seen: 05/25/25 Time Patient Seen: 07:58 Interval history: Chief complaint: Sepsis secondary to a gastric perforation and leak into peritoneum of gastric contents around gastrostomy tube History of present illness: 05/09: Patient is seen at the request of Dr. Naqvi of surgery. Apparently the patient arrived last night with a question of PEG tube dysfunction. A PEG tube was replaced in the ED but was not functioning as expected after placement. The patient was admitted by surgery to the [facility] and this morning taken to the OR for investigation. Prior to this, I was alerted of the patient's clinical status and I did initiate lab tests, blood cultures, IV fluids, and IV cefepime for possible sepsis. [place] [address] with a normal lactic acid. In the OR, the PEG to appeared to be in a false passage. The gastrostomy channel was closed and a J-tube was placed. The peritoneum was washed out. It did not appear grossly that tube feeds were in the peritoneum and the patient was subsequently brought to the ICU where he was on norepinephrine through a peripheral IV and appeared to be very dry with no urine output after 2 L of fluids in the OR. The patient has a noncuffed tracheostomy in place, and severe skin injury to the sacrum including 1 area with possible induration and a wound which is about 2-3 cm in diameter. See media photos. General surgery was alerted to the condition of the back at this time. Micro was reviewed this patient has had MRSA and Pseudomonas in sputum in the past. He was at high risk for MDR infections. He was awake, and moaning, but unable to follow commands or track. Interval history: 05/10: Patient is minimally responsive white count 80778 92% neutrophils VBG 7.25 pCO2 46 PO2 37 sodium 139 potassium 3.5 chloride 110 CO2 19 BUN 19 creatinine 0.54 05/11: Patient is receiving chest physiotherapy there is improvement in the lung sounds on the left patient is more animated and regards with eyes 05/12: Secretions clearing with chest physiotherapy patient appears alert is nonverbal regards with eyes only 05/13: Patient is more alert good response to chest physiotherapy resumed tube feeding and is tolerating per J-tube sputum cultures came back: 05/15: Experienced significant GI bleed yesterday with hemoglobin of 7.0, up to 8.6 with unit blood transfusion. This morning's hemoglobin is blocked by poor access so a PICC line is being placed. EGD and colonoscopy were planned by General surgery but overnight the patient experienced hypotension into the 70s systolic so is now on low-dose Levophed. Also the Colyte prep through the J- tube has not produced significant rectal output yet. The white blood count is pending. He remains on a D5 infusion after blood sugars dropped in the 60s overnight. He is on room air through his trach mask. He remains on cefepime and vancomycin. PICC line placed 05/16: No further active bleeding noted. The patient remains mildly hypotensive. His Levophed was stopped with blood pressure 83/46, and MAP 62. He is making good clear yellow urine output with evidence of significant 3rd spacing in arms and legs. He is awake and nods yes and no to questions, denies pain. 05/17: The hemoglobin dropped again below 8 without any outward signs of ongoing GI bleeding. He was resumed on TPN last night. He remains quite edematous from the anasarca/low albumin oncotic pressures. He continues to have liquid stools. His total IV fluid rate right now is between 80 and 90. 05/18: Hemoglobin 7.8 today. Creatinine 0.29 and potassium 3.5. He is transitioning from the TPN back to tube feeding today. The possibility of transfer to a long-term acute care unit in [place] was brought up and discussed. Unfortunately his insurance is not accepted at that location. His blood pressure dropped to 79/52 when the mild dose of Levophed was stopped so that was resumed. He is discussed with Dr. Escalona today. 05/19: Hemoglobin 8.1 today. Blood sugars range from 92 up to 196. He is now off the TPN and back on trickle feeds/titration with the J-tube currently at 10 mL/hr. He continues to receive IV fluid at 64 mL/hr. He no longer has the impressive levels of peripheral edema/third-spacing/puffiness in his extremities. He is much more alert today. Yesterday he was able to visit with his mother and obviously enjoyed their interaction, attempting to talk. He was started back on his midodrine yesterday and the Levophed was weaned off but had to be resumed. 05/20: Hemoglobin dropped again overnight from 8.1 down to 7.2 white count is 4.3 sodium 132 potassium 3.8 albumin 2.1 tube feeding increased to 20 mL an hour 05/21: Other poor historian hour. Patient has been on and off Levophed for hypotension hemoglobin dropped to 7.1 1 unit ordered 05/22: No new complaints no further need for Levophed 24 hour urine for cortisol was completed 1 unit of blood increased hemoglobin to 8.5 05/23: No complaints he is more animated and interactive blood pressure now 113 systolic with addition of Florinef and hydrocortisone 24 urine cortisol is still pending but patient seems to be responding to supplemental adrenal and corticosteroid. At this point patient is clinically stable and can pursue acute rehab through Medicare 05/24: The patient remains clinically stable without active issues, awaiting placement. IV fluids are stopped and tube feeds adjusted. Current formula: Continuous Pivot 1.5 at 50 mL/hr. 150 mL free water flush Q4H, plan to change tomorrow to continuous Jevity 1.2 at 60 mL/hr. 1 [employer] protein packet (11 g protein, 40 kcals each) TID per packet instructions. Flush 140 mL Q4H of free water, titrate up to assess tolerance as this formula has more fiber. 05/25: No new events overnight. Awaiting placement. Liver function tests mildly elevated in the past few days. No abdominal pain, jaundice, nausea or vomiting. Exam Vital Signs (past 8 hours): - 05/25/25 04:00 05/25/25 05:00 05/25/25 05:04 Temperature Pulse Rate 70 72 71 Respiratory Rate 20 19 18 Blood Pressure Pulse Oximetry 90 L 91 90 L Oxygen Delivery Method Fraction of Inspired Oxygen 05/25/25 05:04 05/25/25 06:00 05/25/25 06:29 Temperature Pulse Rate 74 70 Respiratory Rate 20 19 Blood Pressure 97/59 L Pulse Oximetry 90 L 90 L Oxygen Delivery Method Fraction of Inspired Oxygen 05/25/25 06:29 05/25/25 07:00 05/25/25 07:00 Temperature 97.0 F L Pulse Rate 73 Respiratory Rate 18 Blood Pressure 98/63 98/63 Pulse Oximetry 88 L Oxygen Delivery Method Venturi Mask Trach Collar Fraction of Inspired Oxygen 05/25/25 09:07 Temperature Pulse Rate 78 Respiratory Rate 20 Blood Pressure Pulse Oximetry 95 Oxygen Delivery Method Trach Collar Fraction of Inspired Oxygen 28 Fraction of Inspired Oxygen 28 SaO2/FiO2 Ratio 342 Oxygen Delivery Method Trach Collar Oxygen Flow Rate 7 Narrative Exam Narrative: Cachectic, pale and chronically ill in appearance . Asleep and does not respond to voice or touch. Trach mask in place Very weak respiratory effort CTAB Heart sounds distant, RRR without murmur His abdomen is flat, and non tender to palpation. J-tube is in place. Extremities are atrophied and there is puffiness of the hands Large area of skin pressure injury over the sacrum and lower back as well as a wound in the right paraspinal area above the pelvis. See media photos for this. Not visualized today. Padded boots on heels. 1+ bilateral arm edema, dependent presacral edema , lower extremities with trace edema. Electric Wheelchair in the room. Objective Labs 05/25/25 06:30 05/25/25 06:30 Labs: Laboratory Results - last 24 hr 05/24/25 05/25/25 05/25/25 18:24 00:02 06:30 WBC 5.0 RBC 2.94 L Hgb 8.0 L Hct 24.0 L MCV 81.8 MCH 27.3 MCHC 33.4 RDW 18.9 H Plt Count 258 Neut % (Auto) 62.4 Lymph % (Auto) 25.8 [place] % (Auto) 6.4 Eos % (Auto) 4.0 Baso % (Auto) 1.4 Neut # (Auto) 3100 Lymph # (Auto) 1300 [place] # (Auto) 300 Eos # (Auto) 200 Baso # (Auto) 100 Sodium 134 L Potassium 4.4 Chloride 99 Carbon Dioxide 32 BUN 21 H Creatinine 0.31 L Estimated GFR > 60 BUN/Creatinine Ratio 67.7 H Glucose 74 D POC Whole Bld Glucose 107 H 99 Calcium 7.8 L Total Bilirubin 0.1 L AST 195 H ALT 130 H Alkaline Phosphatase 96 Total Protein 5.9 L Albumin 2.4 L Globulin 3.5 Albumin/Globulin Ratio 0.7 L PFSH Medical History Anemia Cerebral palsy Chronic anticoagulation Chronic anticoagulation Depression Depression, major, recurrent Difficulty with speech Dysarthria Dysphagia Excessive cerumen in both ear canals Former smoker Gingivitis History of pulmonary embolism Hyponatremia Influenza A Iron deficiency anemia Jejunostomy tube present Pneumonia Protein calorie malnutrition Pseudobulbar palsy Recurrent aspiration pneumonia Sacral decubitus ulcer, stage III 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 Father No problems noted. Social History marital status: unmarried,single details: Lives independantly with part-time caregivers household members: none lives independently: Yes occupational status: disabled Smoking Status: Never smoker alcohol intake: never substance use type: marijuana Assessment & Plan Assessment & Plan narrative: PEG tube in false lumen, removed, Closure of gastrostomy track and placement of J-tube 05/09/2025, active. * Appreciate surgery expertise * Tube feeding advancing well per surgery Septic shock with source unclear, differential of lung with history of MRSA and Pseudomonas versus peritonitis verses back infected wounds. * Off of all antimicrobials * Urine free cortisol /24 hours from 05/21 pending * Continue hydrocortisone 10 mg daily and fludrocortisone 0.1mg daily for possible adrenal insufficiency Severe soft tissue injury of sacrum with area of induration and a wound of 2 cm in diameter, active. * Wound care team * Acute rehab needed Chronic uncuffed tracheostomy, active. * Trach managemeny Elevated liver function tests, etiology unclear * possible congestive hepatopathy. Give 40 mg IV Lasix today. * Monitor Pseudobulbar palsy, and spastic left hemiparesis with long-term tracheostomy and history of recurrent aspiration pneumonia. Chronic medical conditions: * Iron deficiency anemia * History of pulmonary embolism * Status post radiation therapy * Chronic anticoagulation * Tracheostomy in place * Sacral decubitus ulcer, stage III * Protein calorie malnutrition * Hyponatremia * Dysphagia * Recurrent aspiration pneumonia * Depression, major, recurrent * Jejunostomy tube present * Anemia * Pneumonia * Spastic hemiparesis of left nondominant side due to cerebrovascular diseaseDVT prophylaxis: * SCDs only due to bleeding Code status: * FULL CODE * Mother is proxy decision maker. * Prognosis is improving. Disposition: * Team rounds today. Awaiting placement for wound healing before ultimate return home. Will benefit from [facility] facility placement. PROFEE Risk Consultant Document charge(s): No Charge Codes Subsequent inpatient/observation care: [id number]
[2025-05-25] MEDS: KETOROLAC 30 MG/ML VIAL 15 MG IV (12:01)
--- NOTE | 2025-05-25 15:33 | CM.DPNOTE ---
DCP Cont SNF Placement [facility]- No, too medically complex [facility]- No, too medically complex [facility]- Still reviewing [facility]- Still reviewing [facility]- Still reviewing Mom does not want LTAC, does not want home w/hospice services. ROBIN team following closely for coordination of DCP. GUILLE
[2025-05-25] MEDS: SERTRALINE 50 MG TABLET 200 MG TUBE (20:44)
[2025-05-26] VITALS (18 sets, daily range): BP systolic 86–105; BP diastolic 54–64; PULSE 58–71; RESP 18–54; TEMP 36.3–36.7; O2SAT 99–100
[2025-05-26] MEDS: MIDODRINE HCL 5 MG TABLET 10 MG TUBE ×2 (02:28→10:31)
[2025-05-26 05:40] LABS: Add Manual Diff / Slide Review NO; Hematocrit 23.1 % (41-53); Hemoglobin 7.9 g/dL (13.5-17.5); Lymphocytes Absolute Auto 1200 /uL (1100-4500); Mean Corpuscular HGB Conc 34.1 % (30-36); Mean Corpuscular Hemoglobin 27.7 PG (26-34); Mean Corpuscular Volume 81.3 fL (80-100); Platelet Count 245 X10^3/uL (150-400)
[2025-05-26 05:57] LABS: Alanine Aminotransferase 136 IU/L (<50); Albumin 2.5 g/dL (3.5-5.0); Albumin Globulin Ratio 0.8 (1.0-2.8); Alkaline Phosphatase 93 U/L (38-126); Blood Urea Nitrogen 21 mg/dL (9-20); Calcium 7.7 mg/dL (8.4-10.2); Chloride 95 mmol/L (98-107); Estimated Glomerular Filt Rate > 60 mL/min (>60); Globulin 3.2 g/dL (1.7-4.1); Glucose 79 mg/dL (70-99); HEMOLYSIS < 15 (0-50); Potassium 4.1 mmol/L (3.4-5.1); Sodium 132 mmol/L (137-145); Total Protein 5.7 g/dL (6.3-8.2)
[2025-05-26 06:34] LABS: Carbon Dioxide 34 mmol/L (22-32)
[2025-05-26] MEDS: ALBUTEROL/IPRATROPIUM 3 ML AMPUL INH (08:47)
[2025-05-26] MEDS: NEOMYCIN/POLYMYXIN/BACITRA UD OINT 1 EACH TOP (08:48)
[2025-05-26] MEDS: LACTOBACILLUS ACIDOPHILUS TABLET 1 EACH PO (08:48)
[2025-05-26] MEDS: HYDROCORTISONE 10 MG TABLET PO (08:48)
[2025-05-26] MEDS: SODIUM CHLORIDE 0.9% FLUSH 10 ML IV (08:49)
[2025-05-26] MEDS: FLUDROCORTISONE 0.1 MG TABLET PO (08:49)
[2025-05-26] MEDS: PANTOPRAZOLE 40 MG VIAL IV (08:49)
[2025-05-26] MEDS: BACLOFEN 10 MG TABLET 5 MG TUBE (08:49)
[2025-05-26] MEDS: SODIUM HYPOCHLORITE 473 ML SOLUTION TOP (08:50)
[2025-05-26] MEDS: NYSTATIN CREAM 30 GM 1 APPLIC TOP (08:50)
--- NOTE | 2025-05-26 13:15 | PM.DS.IH.1 ---
History of Present Illness History of Present Illness Date Patient Seen: 05/26/25 Time Patient Seen: 08:00 Chief complaint: feeding tube issues- pain and nothing going in Narrative: Patient is seen at the request of Dr. Naqvi of surgery. Apparently the patient arrived last night with a question of PEG tube dysfunction. A PEG tube was replaced in the ED but was not functioning as expected after placement. The patient was admitted by surgery to the [facility] and this morning taken to the OR for investigation. Prior to this, I was alerted of the patient's clinical status and I did initiate lab tests, blood cultures, IV fluids, and IV cefepime for possible sepsis. [place] [id number] with a normal lactic acid. In the OR, the PEG to appeared to be in a false passage. The gastrostomy channel was closed and a J-tube was placed. The peritoneum was washed out. It did not appear grossly that tube feeds were in the peritoneum and the patient was subsequently brought to the ICU where he was on norepinephrine through a peripheral IV and appeared to be very dry with no urine output after 2 L of fluids in the OR. The patient has a noncuffed tracheostomy in place, and severe skin injury to the sacrum including 1 area with possible induration and a wound which is about 2-3 cm in diameter. See media photos. General surgery was alerted to the condition of the back at this time. Micro was reviewed this patient has had MRSA and Pseudomonas in sputum in the past. He was at high risk for MDR infections. He was awake, and moaning, but unable to follow commands or track. Discharge Providers Provider Date of admission: 05/09/25 14:47 Discharge Date: 05/26/25 Primary care physician: Chucky Marshall MD Consults: 05/09/25 05:04 Consult to Dietitian, Adult Routine Comment: Reason For Exam: NPO , pending Feeding tube placement Consult to Wound Care Routine Comment: Consulting Provider: [facility] 05/10/25 13:14 Consult to Dietitian, Adult Routine Comment: Reason For Exam: New jejunostomy tube 05/26/25 11:43 Consult to Home Health Routine Comment: Reason For Exam: Resumption of home health services at discharge Discharge provider: Chucky Marshall MD Summary Hospital Course Discharge Diagnosis: 1. PEG tube in false lumen, with peritonitis, status post closure of gastrostomy track and placement of J-tube 05/09/2025. 2. Septic shock with source unclear, differential of lung with history of MRSA and Pseudomonas versus peritonitis verses back infected wounds. 3. Persistent hypotension, possible chronic adrenal insufficiency, started on hydrocortisone with 24 hour urinary free cortisol pending 4. Severe soft tissue injury of sacrum with stage 3 ulceration. 5. Chronic uncuffed tracheostomy, active. 6. Elevated liver function tests, etiology unclear 7. Pseudobulbar palsy, and spastic left hemiparesis with long-term tracheostomy and history of recurrent aspiration pneumonia. Hospital Course: 05/10: Patient is minimally responsive white count 74057 92% neutrophils VBG 7.25 pCO2 46 PO2 37 sodium 139 potassium 3.5 chloride 110 CO2 19 BUN 19 creatinine 0.54 05/11: Patient is receiving chest physiotherapy there is improvement in the lung sounds on the left patient is more animated and regards with eyes 05/12: Secretions clearing with chest physiotherapy patient appears alert is nonverbal regards with eyes only 05/13: Patient is more alert good response to chest physiotherapy resumed tube feeding and is tolerating per J-tube sputum cultures came back: 05/15: Experienced significant GI bleed yesterday with hemoglobin of 7.0, up to 8.6 with unit blood transfusion. This morning's hemoglobin is blocked by poor access so a PICC line is being placed. EGD and colonoscopy were planned by General surgery but overnight the patient experienced hypotension into the 70s systolic so is now on low-dose Levophed. Also the Colyte prep through the J-tube has not produced significant rectal output yet. The white blood count is pending. He remains on a D5 infusion after blood sugars dropped in the 60s overnight. He is on room air through his trach mask. He remains on cefepime and vancomycin. PICC line placed 05/16: No further active bleeding noted. The patient remains mildly hypotensive. His Levophed was stopped with blood pressure 83/46, and MAP 62. He is making good clear yellow urine output with evidence of significant 3rd spacing in arms and legs. He is awake and nods yes and no to questions, denies pain. 05/17: The hemoglobin dropped again below 8 without any outward signs of ongoing GI bleeding. He was resumed on TPN last night. He remains quite edematous from the anasarca/low albumin oncotic pressures. He continues to have liquid stools. His total IV fluid rate right now is between 80 and 90. 05/18: Hemoglobin 7.8 today. Creatinine 0.29 and potassium 3.5. He is transitioning from the TPN back to tube feeding today. The possibility of transfer to a long-term acute care unit in [place] was brought up and discussed. Unfortunately his insurance is not accepted at that location. His blood pressure dropped to 79/52 when the mild dose of Levophed was stopped so that was resumed. He is discussed with Dr. Escalona today. 05/19: Hemoglobin 8.1 today. Blood sugars range from 92 up to 196. He is now off the TPN and back on trickle feeds/titration with the J-tube currently at 10 mL/hr. He continues to receive IV fluid at 64 mL/hr. He no longer has the impressive levels of peripheral edema/third-spacing/puffiness in his extremities. He is much more alert today. Yesterday he was able to visit with his mother and obviously enjoyed their interaction, attempting to talk. He was started back on his midodrine yesterday and the Levophed was weaned off but had to be resumed. 05/20: Hemoglobin dropped again overnight from 8.1 down to 7.2 white count is 4.3 sodium 132 potassium 3.8 albumin 2.1 tube feeding increased to 20 mL an hour 05/21: Other poor historian hour. Patient has been on and off Levophed for hypotension hemoglobin dropped to 7.1 1 unit ordered 05/22: No new complaints no further need for Levophed 24 hour urine for cortisol was completed 1 unit of blood increased hemoglobin to 8.5 05/23: No complaints he is more animated and interactive blood pressure now 113 systolic with addition of Florinef and hydrocortisone 24 urine cortisol is still pending but patient seems to be responding to supplemental adrenal and corticosteroid. At this point patient is clinically stable and can pursue acute rehab through Medicare 05/24: The patient remains clinically stable without active issues, awaiting placement. IV fluids are stopped and tube feeds adjusted. Current formula: Continuous Pivot 1.5 at 50 mL/hr. 150 mL free water flush Q4H, plan to change tomorrow to continuous Jevity 1.2 at 60 mL/hr. 1 [employer] protein packet (11 g protein, 40 kcals each) TID per packet instructions. Flush 140 mL Q4H of free water, titrate up to assess tolerance as this formula has more fiber. 05/25: No new events overnight. Awaiting placement. Liver function tests mildly elevated in the past few days. No abdominal pain, jaundice, nausea or vomiting. 05/26: No new events. Patient is interested in returning home. His mother feels that she is capable of managing him. He states he is miserable here and does not wish to go to retirement. He wishes to be at home with the care of his mother and caregivers. This is a very important quality of life issue. Mother feels that she is able to coordinate daytime caregivers and nighttime care to meet his basic needs. Outpatient wound care follow-up is arranged. Tube feeds have been coordinated through dietary. Case management is assisting with home health management. Status at Discharge Cognitive/behavioral status at discharge: oriented Functional status at discharge: bed bound Overall status at discharge: patient is progressing back to baseline Time Spent with Patient Time spent: Greater than 30 minutes Exam Vital Signs (past 8 hours): - 05/26/25 06:00 05/26/25 07:00 05/26/25 07:00 Temperature 97.8 F Pulse Rate 62 Respiratory Rate 33 H Blood Pressure Pulse Oximetry 100 Oxygen Delivery Method Trach Collar Fraction of Inspired Oxygen 05/26/25 07:00 05/26/25 08:00 05/26/25 08:11 Temperature Pulse Rate 71 66 Respiratory Rate 27 H 33 H Blood Pressure 93/60 Pulse Oximetry 100 100 Oxygen Delivery Method Fraction of Inspired Oxygen 05/26/25 08:11 05/26/25 08:25 05/26/25 08:25 Temperature Pulse Rate 65 62 Respiratory Rate 34 H 39 H Blood Pressure 89/54 L Pulse Oximetry 100 100 Oxygen Delivery Method Fraction of Inspired Oxygen 05/26/25 08:47 05/26/25 09:00 05/26/25 09:00 Temperature Pulse Rate 67 64 Respiratory Rate 20 33 H Blood Pressure 90/56 L Pulse Oximetry 99 99 Oxygen Delivery Method Trach Collar Fraction of Inspired Oxygen 28 05/26/25 10:00 05/26/25 10:00 05/26/25 11:00 Temperature Pulse Rate 65 Respiratory Rate 38 H Blood Pressure 86/57 L 105/63 Pulse Oximetry 100 Oxygen Delivery Method Fraction of Inspired Oxygen 05/26/25 11:00 Temperature Pulse Rate 62 Respiratory Rate 35 H Blood Pressure Pulse Oximetry 100 Oxygen Delivery Method Fraction of Inspired Oxygen Fraction of Inspired Oxygen 28 SaO2/FiO2 Ratio 353 Oxygen Delivery Method Trach Collar Oxygen Flow Rate 0 Narrative Exam Narrative: Cachectic, pale and chronically ill in appearance . Awake and answers questions appropriately. Trach mask in place Lungs clear to auscultation anteriorly Heart sounds distant, RRR without murmur His abdomen is flat, and non tender to palpation. J-tube is in place. Extremities are atrophied and there is mild edema in the hands Large area of skin pressure injury over the sacrum and lower back as well as a wound in the right paraspinal area above the pelvis. See media photos for this. Not visualized today. Padded boots on heels. Trace bilateral arm edema, no significant dependent presacral edema, lower extremities with trace edema. Electric Wheelchair in the room. Objective Labs 05/26/25 04:40 05/26/25 04:40 Labs: Laboratory Results - last 24 hr 05/25/25 05/25/25 05/25/25 18:16 20:20 23:58 WBC RBC Hgb Hct MCV MCH MCHC RDW Plt Count Neut % (Auto) Lymph % (Auto) [place] % (Auto) Eos % (Auto) Baso % (Auto) Neut # (Auto) Lymph # (Auto) [place] # (Auto) Eos # (Auto) Baso # (Auto) Sodium Potassium Chloride Carbon Dioxide BUN Creatinine Estimated GFR BUN/Creatinine Ratio Glucose POC Whole Bld Glucose 93 86 88 Calcium Total Bilirubin AST ALT Alkaline Phosphatase Total Protein Albumin Globulin Albumin/Globulin Ratio 05/26/25 05/26/25 04:40 05:41 WBC 5.0 RBC 2.84 L Hgb 7.9 L Hct 23.1 L MCV 81.3 MCH 27.7 MCHC 34.1 RDW 18.7 H Plt Count 245 Neut % (Auto) 61.0 Lymph % (Auto) 24.2 L [place] % (Auto) 8.5 Eos % (Auto) 4.7 H Baso % (Auto) 1.6 Neut # (Auto) 3100 Lymph # (Auto) 1200 [place] # (Auto) 400 Eos # (Auto) 200 Baso # (Auto) 100 Sodium 132 L Potassium 4.1 Chloride 95 L Carbon Dioxide 34 H BUN 21 H Creatinine 0.34 L Estimated GFR > 60 BUN/Creatinine Ratio 61.8 H Glucose 79 POC Whole Bld Glucose 88 Calcium 7.7 L Total Bilirubin 0.1 L AST 177 H ALT 136 H Alkaline Phosphatase 93 Total Protein 5.7 L Albumin 2.5 L Globulin 3.2 Albumin/Globulin Ratio 0.8 L PFS Medical History Anemia Cerebral palsy Chronic anticoagulation Chronic anticoagulation Depression Depression, major, recurrent Difficulty with speech Dysarthria Dysphagia Excessive cerumen in both ear canals Former smoker Gingivitis History of pulmonary embolism Hyponatremia Influenza A Iron deficiency anemia Jejunostomy tube present Pneumonia Protein calorie malnutrition Pseudobulbar palsy Recurrent aspiration pneumonia Sacral decubitus ulcer, stage III 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 Father No problems noted. Social History marital status: unmarried,single details: Lives independantly with part-time caregivers household members: none lives independently: Yes occupational status: disabled Smoking Status: Never smoker alcohol intake: never substance use type: marijuana Discharge Plan Discharge Plan Patient Disposition: Home Health Service Discharge orders & Medications Prescriptions: New hydrocortisone [Cortef] 10 mg Tablet 10 mg PO DAILY Qty: 30 11RF hydrocortisone 10 mg tablet 10 mg PO DAILY Qty: 30 11RF Continued (DME) XL mattress for semi-electric hospital bed See Rx Instructions .Route .MEDSUPPLY Qty: 1 0RF Rx Instructions: use daily as directed (DME) Disabled Parking Qty: 1 0RF Rx Instructions: I find this patient to be medically disabled and qualified for Disabled Parking as indicated, and signed, on the Accompanying Disabled Parking Application for Individuals ferrous sulfate 325 mg (65 mg iron) tablet 130 mg PO DAILY baclofen 5 mg/5 mL solution 5 mg PO DAILY Qty: 473 3RF Rx Instructions: Give 5mL via J-tube (DME) Battery Powered Lift Qty: 1 0RF Dose Instruction: As directed Rx Instructions: Use daily as directed for transfers to and from bed (DME) Power Chair tall Qty: 1 0RF Dose Instruction: As directed Rx Instructions: As directed for patient care with activities of daily living. Chair needs to tilt foreword and tilt backwards for patient care. Pt is 6 feet tall and will need to fit height. (DME) Shower Chair Qty: 1 0RF Rx Instructions: As directed for patient care with activities of daily living. Chair needs to tilt foreword and tilt backwards for patient care. Pt is 6 feet tall and will need to fit height. (DME) Semi-electric hospital bed Qty: 1 0RF Dose Instruction: As directed Rx Instructions: Semi-electric hospital bed to permit transfers to wheelchair and to attach traction equipment. Must be large enough and long enough to accommodate his height and weight. EDEN: 99 months (DME) Mattress See Rx Instructions .Route .MEDSUPPLY Qty: 1 0RF Rx Instructions: Long mattress for hospital bed Eliquis 5 mg tablet 5 mg PO BID Qty: 60 12RF folic acid 1 mg tablet 1 mg PO DAILY Qty: 90 3RF (DME) [employer]raphica Communication Device See Rx Instructions .Route .MEDSUPPLY Qty: 1 0RF Rx Instructions: Evaluation for speech generating device. See online submission form for free trial of device. scopolamine base 1 mg over 3 days patch 3 day 1 patch topical Q3D Qty: 24 1RF sodium chloride 0.9 % solution for nebulization 2.5 ml inhalation Q12H PRN (Reason: shortness of breath or wheezing) Qty: 300 0RF (DME) suction catheter kit See Rx Instructions .Route .MEDSUPPLY Qty: 5 4RF Rx Instructions: Mya suction catheter (or equivalent) equipement and disposable. [employer] [facility] supply sertraline 100 mg tablet 200 mg PO DAILY Qty: 60 2RF Banatrol Plus Powder In Packet 1 ea PO 4XD Qty: 450 3RF midodrine 10 mg tablet 10 mg feeding tube Q8H Qty: 270 1RF (DME) BD Luer-Rafael Syringe 3 mL 20 gauge x 1 syringe See Rx Instructions .ROUTE .MEDSUPPLY Qty: 1 Patient Comments: USE FOR MUCOMYST Rx Instructions: As directed Glucagon Emergency Kit (human) 1 mg recon soln 1 mg IM ONCE (DME) blood-glucose meter [True Metrix Air Glucose Meter] Misc See Rx Instructions .ROUTE DAILY Qty: 1 Rx Instructions: As directed Follow up/Referrals: Chucky Marshall MD [Primary Care Provider, Internal Medicine] Visit Report/Discharge Packet Stand Alone Forms: Patient Portal/API, Stroke Signs & Symptoms Discharge Data Primary Care Provider: Chucky Marshall V Quality MIPS - Admit I confirm the patient?s Advance Care Plan is present, Code status is documented, Surrogate decision maker is in patient?s record [If Yes, STOP here]: Yes MIPS - Meds 'Current medications' to include all prescriptions, [id number]-[id number] products, herbals, cannabis/cannabidiol products, and vitamin/mineral/dietary (nutritional) supplements. I have utilized all available resources to obtain, update, or review the patient?s current medications. [If Yes, STOP here]: Yes MIPS - DC The patient has a history of heart transplant or Left Ventricular Assist Device (LVAD). If yes, STOP here.: No The patient has current or prior documentation of left ventricular ejection fraction (LVEF) less than or equal to 40%, or moderate or severely depressed left ventricular systolic function.: No A. The patient was prescribed or already taking an Angiotensin-Converting Enzyme (KELL) Inhibitor, or Angiotensin Receptor Ruslan (ARB).: No B. The patient was prescribed or already taking a beta-ruslan. [If Yes to Both A & B, STOP here]: No Patient not prescribed/taking KELL or ARB, no reason given.: No Patient not prescribed/taking beta-ruslan, no reason given.: No PROFEE Charge Codes Discharge inpatient/observation: 56137
--- NOTE | 2025-05-26 14:27 | CM.DPNOTE ---
Addendum entered by Neida Montanez, SALES DEVELOPMENT MANAGER 05/27/25 10:55: ADD: Faxed the UPDATED tube feed order to [facility] this morning at F [phone] via RightFax; Flakita photographer apprentice lithographic, explains to this SALES DEVELOPMENT MANAGER that since patient did not discharge to SNF, he should be resuming his home tube feed formula. Flakita placed an addendum on her 05/24 note- which has been faxed. Placed call to [facility] P [phone] explained the update. [facility] will plan to call Jonnie/mom to discuss next shipment. No further action needed from this team since it is a resumption, not a new order. Addendum entered by Neida Montanez, SALES DEVELOPMENT MANAGER 05/27/25 08:56: ADD: Received call from [facility] updating this SALES DEVELOPMENT MANAGER that Jonnie's mom Marianela called to scheduled outpatient wound care for 05/30. Original Note: DC Note Dr Marshall has discharged patient home today; patient and silvino Bear are agreeable and ready for return home. Completed the following coordination tasks: Emailed Daniel with [facility] the resumption orders for HH to include face sheet, H+P, F2F, HH Order and DC Summary Placed call to [facility] [place], P [phone]- could not get a hold of the answering service. Faxed the latest dietary note with tube feed orders to F [phone] Placed [facility] to [facility], updating that patient is discharging home today, requested follow up with silvino Bear to schedule next wound care appt. Placed call to SHAUN Brito P [phone], updating that patient discharging home 05/26 Placed call to dietitian consultant line for the Clinical Cargo Station Worker(s) ie Flakita Hopkins P [phone], had to , updating that patient is discharging home and requested follow up from Flakita Plan: Discharge home w. silvino Bear, resumption of [facility] care hours, [facility], [facility] for feeding tube management, [place] for chronic trach supplies. Silvino Bear to transport using their wc van. JW
[2025-05-27 08:36] LABS: Cortisol Fr ug/24hr urine 9 ug/24 hr (5-64); Cortisol, Free, Urine 3 ug/L (Undefined)
== END 2025-05-26 14:42 | disposition home health service (06) | DRG 853 ==
LOC: ED 23:05 → AC 05-09 01:54 → ICU 05-09 13:46
PROVIDERS: Family Medicine; Hospitalist; Internal Medicine; Nurse Anesthetist, Certified Registered; Admitting Provider Surgery; Emergency Provider Family Medicine; Family Provider Internal Medicine; PCP Internal Medicine; Visit Provider Surgery
PROC: 0WJG4ZZ Inspection of Peritoneal Cavity, Percutaneous Endoscopic Approach (ICD-10-PCS; CPT 49320; principal; 2025-05-09 15:00)
PROC: 0WJG4ZZ Inspection of Peritoneal Cavity, Percutaneous Endoscopic Approach (ICD-10-PCS; 2025-05-09 15:00)
DX: A41.9 Sepsis, unspecified organism (principal); J18.9 Pneumonia, unspecified organism; K65.9 Peritonitis, unspecified; L89.323 Pressure ulcer of left buttock, stage 3; R65.21 Severe sepsis with septic shock; K94.23 Gastrostomy malfunction; G12.29 Other motor neuron disease; G81.14 Spastic hemiplegia affecting left nondominant side; Z16.24 Resistance to multiple antibiotics; K92.2 Gastrointestinal hemorrhage, unspecified; E27.40 Unspecified adrenocortical insufficiency; E86.9 Volume depletion, unspecified; K31.89 Other diseases of stomach and duodenum; B95.61 Methicillin susceptible Staphylococcus aureus infection as the cause of diseases classified elsewhere; B96.5 Pseudomonas (aeruginosa) (mallei) (pseudomallei) as the cause of diseases classified elsewhere; B96.89 Other specified bacterial agents as the cause of diseases classified elsewhere; D50.8 Other iron deficiency anemias; R79.89 Other specified abnormal findings of blood chemistry; F32.A Depression, unspecified; Z86.14 Personal history of Methicillin resistant Staphylococcus aureus infection; Z87.01 Personal history of pneumonia (recurrent); Z93.0 Tracheostomy status; Z79.01 Long term (current) use of anticoagulants
CPT/HCPCS: 36415; 36430; 36592; 43762; 71045; 74018; 76000; 80048; 80053; 80202; 82530; 82607; 82746; 82805; 82962; 83540; 83550; 83605; 83735; 84100; 84132; 84478; 85007; 85014; 85018; 85025; 85027; 85045; 86850; 86900; 86901; 87040; 87070; 87077; 87147; 87186; 87205; 87797; 94640; 94667; 94668; 94762; 94799; 96374; 99213; 99283; 99284; G0378; P9016; B4185; B4189; J0131; J0666; J0692; J1100; J1171; J1642; J1885; J1938; J2250; J2405; J2470; J2704; J2916; J3010; J3475; J3490

== ENCOUNTER 2025-05-28 23:08 | Inpatient (IN) | payer MEDICARE, MEDICAID, OTHER, SELFPAY ==
[2025-05-27 09:05] VITALS: PULSE 89; RESP 16; O2SAT 100; BMI 25.2
--- NOTE | 2025-05-28 23:02 | ED.GENADULT ---
HPI - General Adult General Stated complaint: Hypoglycemic Related Data Home Medications ?Medication ?Instructions ?Recorded ?Confirmed ferrous sulfate 325 mg (65 mg 130 mg PO DAILY 10/29/21 05/28/25 iron) tablet syringe with needle 3 mL 20 gauge #1 ea 08/10/23 05/28/25 x 1 (BD Luer-Rafael Syringe) blood-glucose meter (True Metrix #1 ea 12/05/24 05/28/25 Air Glucose Meter) glucagon 1 mg solution for 1 mg IM ONCE 12/05/24 05/28/25 injection (Glucagon Emergency Kit) petrolatum, white-lanolin topical ea topical PRN 05/28/25 05/28/25 ointment (Vitamin A and D Diaper Rash topical ointment) zinc oxide-cod liver oil topical ea topical PRN 05/28/25 05/28/25 ointment Previous Rx's ?Medication ?Instructions ?Recorded Battery Powered Lift #1 ea 03/02/18 Power Chair #1 ea 10/16/18 Disabled Parking #1 ea 01/15/19 Shower Chair #1 07/04/19 XL mattress for semi-electric #1 ea 09/27/22 hospital bed baclofen 5 mg/5 mL oral solution 5 mg (5 mL) PO DAILY #473 mL 01/20/23 Mattress #1 ea 03/28/24 Semi-electric hospital bed #1 ea 03/28/24 apixaban 5 mg tablet (Eliquis) 5 mg PO BID #60 tabs 08/15/24 folic acid 1 mg tablet 1 mg PO DAILY #90 tabs 12/13/24 [employer] Communication Device #1 ea 01/23/25 scopolamine base 1 mg over 3 days 1 patch topical Q3D #24 ea 03/15/25 transdermal patch sodium chloride 0.9 % for 2.5 ml inhalation Q12H PRN 03/15/25 nebulization shortness of breath or wheezing #300 mL suction catheter kit #5 ea 03/20/25 sertraline 100 mg tablet 200 mg (2 x 100 mg) PO DAILY #60 05/01/25 tabs banana 1 ea PO 4XD #450 ea 05/02/25 flakes-transgalactooligosaccharide oral powder packet (Banatrol Plus oral powder packet) midodrine 10 mg tablet 10 mg feeding tube Q8H #270 tabs 05/06/25 hydrocortisone 10 mg tablet 10 mg PO DAILY #30 tabs 05/26/25 hydrocortisone 10 mg tablet 10 mg PO DAILY #30 tabs 05/26/25 (Cortef) Allergies Allergy/AdvReac Type Severity Reaction Status Date / Time Penicillins (PENICILLINS) Allergy Severe RASH Verified 05/09/25 09:51 levofloxacin Allergy Intermediate Rash Verified 05/09/25 09:51 Patient History Medical History Anemia Cerebral palsy Chronic anticoagulation Chronic anticoagulation Depression Depression, major, recurrent Difficulty with speech Dysarthria Dysphagia Excessive cerumen in both ear canals Former smoker Gingivitis History of pulmonary embolism Hyponatremia Influenza A Iron deficiency anemia Jejunostomy tube present Pneumonia Protein calorie malnutrition Pseudobulbar palsy Recurrent aspiration pneumonia Sacral decubitus ulcer, stage III 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 Father No problems noted. Social History marital status: unmarried,single details: Lives independantly with part-time caregivers household members: none lives independently: Yes occupational status: disabled alcohol intake: never substance use type: marijuana alcohol intake frequency: 0-2 drinks per day Discharge Plan Departure Prescriptions: No Action (DME) XL mattress for semi-electric hospital bed See Rx Instructions .Route .MEDSUPPLY Qty: 1 0RF Rx Instructions: use daily as directed (DME) Disabled Parking Qty: 1 0RF Rx Instructions: I find this patient to be medically disabled and qualified for Disabled Parking as indicated, and signed, on the Accompanying Disabled Parking Application for Individuals ferrous sulfate 325 mg (65 mg iron) tablet 130 mg PO DAILY baclofen 5 mg/5 mL solution 5 mg PO DAILY Qty: 473 3RF Rx Instructions: Give 5mL via J-tube (DME) Battery Powered Lift Qty: 1 0RF Dose Instruction: As directed Rx Instructions: Use daily as directed for transfers to and from bed (DME) Power Chair tall Qty: 1 0RF Dose Instruction: As directed Rx Instructions: As directed for patient care with activities of daily living. Chair needs to tilt foreword and tilt backwards for patient care. Pt is 6 feet tall and will need to fit height. (DME) Shower Chair Qty: 1 0RF Rx Instructions: As directed for patient care with activities of daily living. Chair needs to tilt foreword and tilt backwards for patient care. Pt is 6 feet tall and will need to fit height. (DME) Semi-electric hospital bed Qty: 1 0RF Dose Instruction: As directed Rx Instructions: Semi-electric hospital bed to permit transfers to wheelchair and to attach traction equipment. Must be large enough and long enough to accommodate his height and weight. EDEN: 99 months (DME) Mattress See Rx Instructions .Route .MEDSUPPLY Qty: 1 0RF Rx Instructions: Long mattress for hospital bed Eliquis 5 mg tablet 5 mg PO BID Qty: 60 12RF folic acid 1 mg tablet 1 mg PO DAILY Qty: 90 3RF (DME) [employer] Communication Device See Rx Instructions .Route .MEDSUPPLY Qty: 1 0RF Rx Instructions: Evaluation for speech generating device. See online submission form for free trial of device. scopolamine base 1 mg over 3 days patch 3 day 1 patch topical Q3D Qty: 24 1RF sodium chloride 0.9 % solution for nebulization 2.5 ml inhalation Q12H PRN (Reason: shortness of breath or wheezing) Qty: 300 0RF (DME) suction catheter kit See Rx Instructions .Route .MEDSUPPLY Qty: 5 4RF Rx Instructions: Mya suction catheter (or equivalent) equipement and disposable. [facility] [place] sertraline 100 mg tablet 200 mg PO DAILY Qty: 60 2RF Banatrol Plus Powder In Packet 1 ea PO 4XD Qty: 450 3RF midodrine 10 mg tablet 10 mg feeding tube Q8H Qty: 270 1RF (DME) BD Luer-Rafael Syringe 3 mL 20 gauge x 1 syringe See Rx Instructions .ROUTE .MEDSUPPLY Qty: 1 Patient Comments: USE FOR MUCOMYST Rx Instructions: As directed Glucagon Emergency Kit (human) 1 mg recon soln 1 mg IM ONCE (DME) blood-glucose meter [True Metrix Air Glucose Meter] Misc See Rx Instructions .ROUTE DAILY Qty: 1 Rx Instructions: As directed zinc oxide-cod liver oil Ointment topical PRN Vitamin A and D Diaper Rash Ointment topical PRN hydrocortisone [Cortef] 10 mg Tablet 10 mg PO DAILY Qty: 30 11RF hydrocortisone 10 mg tablet 10 mg PO DAILY Qty: 30 11RF Referrals: Chucky Marshall MD [Primary Care Provider, Internal Medicine]
--- NOTE | 2025-05-28 23:08 | ED.GENADULT ---
HPI - General Adult General Chief complaint: Diabetic Problem Stated complaint: Hypoglycemic Time Seen by Provider: 05/28/25 23:10 History of Present Illness HPI narrative: 45-year-old male with history of remote brain tumor, radiation treatments, right-sided hemiparesis, left-sided hemiplegia, baseline ADLs usually able to use his motorized wheelchair with left arm controls, recently admitted here for G-tube revision, discharged yesterday, noted to have altered mental status at home by family caregivers, EMS called, sugar 20, IV dextrose given, mental status improved. No history of known diabetes. Intermittent occasional hypoglycemic episodes, sometimes associated with sepsis. No fevers known since discharge. Full code status at this time, per medical power of traffic law attorney mother at bedside. Related Data Home Medications ?Medication ?Instructions ?Recorded ?Confirmed ferrous sulfate 325 mg (65 mg 130 mg PO DAILY 10/29/21 05/28/25 iron) tablet syringe with needle 3 mL 20 gauge #1 ea 08/10/23 05/28/25 x 1 (BD Luer-Rafael Syringe) blood-glucose meter (True Metrix #1 ea 12/05/24 05/28/25 Air Glucose Meter) glucagon 1 mg solution for 1 mg IM ONCE 12/05/24 05/28/25 injection (Glucagon Emergency Kit) petrolatum, white-lanolin topical ea topical PRN 05/28/25 05/28/25 ointment (Vitamin A and D Diaper Rash topical ointment) zinc oxide-cod liver oil topical ea topical PRN 05/28/25 05/28/25 ointment Previous Rx's ?Medication ?Instructions ?Recorded Battery Powered Lift #1 ea 03/02/18 Power Chair #1 ea 10/16/18 Disabled Parking #1 ea 01/15/19 Shower Chair #1 ea 07/04/19 XL mattress for semi-electric #1 ea 09/27/22 hospital bed baclofen 5 mg/5 mL oral solution 5 mg (5 mL) PO DAILY #473 mL 01/20/23 Mattress #1 ea 03/28/24 Semi-electric hospital bed #1 ea 03/28/24 apixaban 5 mg tablet (Eliquis) 5 mg PO BID #60 tabs 08/15/24 folic acid 1 mg tablet 1 mg PO DAILY #90 tabs 12/13/24 [employer] Communication Device #1 ea 01/23/25 scopolamine base 1 mg over 3 days 1 patch topical Q3D #24 ea 03/15/25 transdermal patch sodium chloride 0.9 % for 2.5 ml inhalation Q12H PRN 03/15/25 nebulization shortness of breath or wheezing #300 mL suction catheter kit #5 ea 03/20/25 sertraline 100 mg tablet 200 mg (2 x 100 mg) PO DAILY #60 05/01/25 tabs banana 1 ea PO 4XD #450 ea 05/02/25 flakes-transgalactooligosaccharide oral powder packet (Banatrol Plus oral powder packet) midodrine 10 mg tablet 10 mg feeding tube Q8H #270 tabs 05/06/25 hydrocortisone 10 mg tablet 10 mg PO DAILY #30 tabs 05/26/25 hydrocortisone 10 mg tablet 10 mg PO DAILY #30 tabs 05/26/25 (Cortef) Allergies Allergy/AdvReac Type Severity Reaction Status Date / Time Penicillins (PENICILLINS) Allergy Severe RASH Verified 05/09/25 09:51 levofloxacin Allergy Intermediate Rash Verified 05/09/25 09:51 Patient History Medical History Anemia Cerebral palsy Chronic anticoagulation Chronic anticoagulation Depression Depression, major, recurrent Difficulty with speech Dysarthria Dysphagia Excessive cerumen in both ear canals Former smoker Gingivitis History of pulmonary embolism Hyponatremia Influenza A Iron deficiency anemia Jejunostomy tube present Pneumonia Protein calorie malnutrition Pseudobulbar palsy Recurrent aspiration pneumonia Sacral decubitus ulcer, stage III 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 Father No problems noted. Social History marital status: unmarried,single details: Lives independantly with part-time caregivers household members: none lives independently: Yes occupational status: disabled alcohol intake: never substance use type: marijuana alcohol intake frequency: 0-2 drinks per day Exam Narrative Exam Narrative: GENERAL: Well-developed patient, in mild distress. HEAD: Atraumatic. Normocephalic. EYES: Pupils equal round and reactive. Extraocular motions intact. No scleral icterus. No injection or drainage. ENT: Nose without bleeding, purulent drainage. Throat without erythema, tonsillar hypertrophy or exudate. Airway patent. Tracheostomy site with device in place, not currently hooked up to ventilation device. NECK: Trachea midline. Non tender CARDIOVASCULAR: Regular rate and rhythm without murmurs, gallops, or rubs. RESPIRATORY: Clear to auscultation. Breath sounds equal bilaterally. No wheezes, rales, or rhonchi. GASTROINTESTINAL: Abdomen soft, non-tender, nondistended. Left upper quadrant lateral quadrant feeding tube site with suture intact, no expressible fluid or discharge obvious. EXTREMITIES: No edema or joint tenderness. BACK: Nontender without deformity or crepitance. No flank tenderness. NEURO: Tracheostomy in place, patient alert able to nod yes and no answers, slight movement left hand and left foot apparently at baseline per mother at bedside, no motion right upper extremity or right lower extremity apparently at baseline. SKIN: No rash or erythema of visible areas Initial Vital Signs Initial Vital Signs: Vital Signs Pulse Rate 66 05/28/25 23:10 Pulse Oximetry 97 05/28/25 23:10 Course Orders Ordered: ED Orders 05/28/25 23:00 Complete Blood Count AUTO DIFF Stat Comprehensive Metabolic Panel Stat Lipase Stat Troponin & CK Cardiac Panel Stat 05/28/25 23:11 XR chest 1V Stat EKG-12 Lead Stat 05/28/25 23:55 Lactate (Lactic Acid) Stat 05/29/25 US abdomen limited Stat 05/29/25 00:33 CT abdomen pelvis w con Stat 05/29/25 00:50 Insulin and C-Peptide,Serum Stat 05/29/25 01:00 Covid-19 + FLU A/B + RSV - PCR Stat 05/29/25 01:37 Urinalysis and Microscopic Stat 05/29/25 03:52 Consult to Dietitian, Adult Stat 05/29/25 03:57 Consult to Discharge Planning Routine Blood Culture Stat 05/29/25 03:58 Consult to Physical Therapy Evaluate & Treat 05/30/25 06:00 Complete Blood Count AUTO DIFF DAILY Comprehensive Metabolic Panel DAILY Acetaminophen (Acetaminophen 325 Mg Tablet) 650 mg PO Q6H PRN PRN Reason: Fever/Mild Pain (1-3) Apixaban (Apixaban 5 Mg Tablet) 5 mg PO BID [facility] Baclofen (Baclofen 10 Mg Tablet) 5 mg PO DAILY [facility] Famotidine (Famotidine 20 Mg/2 Ml Vial) 20 mg IV NOW [facility] Last Admin: 05/29/25 03:30 Dose: 20 mg Ferrous Sulfate (Ferrous Sulfate 325 Mg Tablet) 325 mg PO DAILY [facility] Folic Acid (Folic Acid 1 Mg Tablet) 1 mg PO DAILY [facility] Hydrocortisone (Hydrocortisone 10 Mg Tablet) 10 mg PO DAILY [facility] Dextrose/Sodium Chloride (Dextrose 5%-0.9% Ns) 1,000 mls @ 100 mls/hr IV CONT [facility] Last Admin: 05/29/25 04:54 Dose: 100 mls/hr Ceftriaxone Sodium 2,000 mg/ (Sodium Chloride) 100 mls @ 200 mls/hr IV Q24H [facility] Last Admin: 05/29/25 04:55 Dose: 200 mls/hr Metronidazole (Flagyl) 500 mg in 100 mls @ 100 mls/hr IV Q6H [facility] Midodrine (Midodrine Hcl 5 Mg Tablet) 10 mg TUBE Q8H [facility] Naloxone HCl (Naloxone 0.4 Mg/Ml Vial) 0.2 mg IV Q2MIN PRN PRN Reason: Opiate Reversal Non-Formulary Medication (Banana [id number]. [Banatrol Plus]) 1 each PO 4XD [facility] Scopolamine (Scopolamine 1 Patch) 1 patch TOP Q3D [facility] Sertraline HCl (Sertraline 50 Mg Tablet) 200 mg PO DAILY [facility] Discontinued Medications Dextrose (Dextrose 50 % In Water 25 Gm/50 Ml Syringe) 25 gm IV NOW ONE Stop: 05/29/25 00:33 Last Admin: 05/29/25 00:35 Dose: 25 gm Documented By: LINDA Glucagon (Glucagon,Human Recombinant 1 Mg/Ml Vial) 1 mg IV NOW ONE Stop: 05/29/25 01:00 Last Admin: 05/29/25 02:39 Dose: Not Given Documented By: Hydrocortisone (Hydrocortisone 100 Mg/2 Ml Vial) 100 mg IV NOW ONE Stop: 05/29/25 03:57 Last Admin: 05/29/25 04:54 Dose: 100 mg Dextrose/Sodium Chloride (Dextrose 5%-0.9% Ns) 1,000 mls @ 150 mls/hr IV CONT [facility]UEL Last Infusion: 05/29/25 00:40 Dose: 200 mls/hr Documented By: Admin: 05/28/25 23:58 Dose: 150 mls/hr Documented By: Piperacillin Sod/Tazobactam (Sod 3.375 gm/ Sodium Chloride) 100 mls @ 25 mls/hr IV Q8H [facility]UEL Last Admin: 05/29/25 05:09 Dose: Not Given Ceftriaxone Sodium 2,000 mg/ (Sodium Chloride) 100 mls @ 200 mls/hr IV NOW ONE Stop: 05/29/25 04:06 Last Admin: 05/29/25 05:29 Dose: Not Given Metronidazole (Flagyl) 500 mg in 100 mls @ 100 mls/hr IV NOW ONE Stop: 05/29/25 05:04 Last Admin: 05/29/25 05:29 Dose: Not Given Naloxone HCl (Naloxone 0.4 Mg/Ml Vial) 0.2 mg IV Q2MIN PRN PRN Reason: Opiate Reversal Vital Signs Vital signs: Vital Signs - 8 hr 05/28/25 23:10 05/28/25 23:11 05/28/25 23:11 Temperature Pulse Rate 66 67 Respiratory Rate 17 Blood Pressure 102/70 Pulse Oximetry 97 97 Oxygen Delivery Method Room Air 05/28/25 23:14 05/28/25 23:30 05/29/25 00:00 Temperature 97.0 F L Pulse Rate 66 66 63 Respiratory Rate 17 21 19 Blood Pressure 102/70 Pulse Oximetry 97 98 98 Oxygen Delivery Method Room Air 05/29/25 00:30 05/29/25 00:40 05/29/25 00:40 Temperature Pulse Rate 65 66 Respiratory Rate 23 21 Blood Pressure 120/74 Pulse Oximetry 100 100 Oxygen Delivery Method Room Air Room Air 05/29/25 01:00 05/29/25 01:14 05/29/25 01:14 Temperature Pulse Rate 63 62 Respiratory Rate 19 20 Blood Pressure 102/66 Pulse Oximetry 100 100 Oxygen Delivery Method Room Air 05/29/25 01:31 05/29/25 01:35 05/29/25 01:35 Temperature Pulse Rate 64 63 Respiratory Rate 21 19 Blood Pressure 106/77 Pulse Oximetry 100 Oxygen Delivery Method Room Air 05/29/25 02:00 05/29/25 02:00 Temperature Pulse Rate 63 Respiratory Rate 18 Blood Pressure 91/60 Pulse Oximetry 100 Oxygen Delivery Method Room Air Medical Decision Making Lab Data Lab results reviewed: Yes I reviewed the patient's lab results. Lab results narrative: White blood cell count 6500, hemoglobin 9.3, platelets adequate. Glucose 20 from blood draw obtained by EMS before initial treatment prior to arrival. BUN 20 with creatinine 0.35 normal renal function. Serum CO2 27. Sodium 125 low. Potassium 4.3 normal, serum chloride 91 decreased. CPK 43 low. Serum albumin 3.1 low. ALT slight elevation, other liver functions unremarkable. Lipase 540 slight elevation. Lactate 0.08 normal. 05/28/25 23:00 05/28/25 23:00 Labs: Lab Results 05/28/25 05/28/25 05/28/25 Range/Units 23:00 23:07 23:51 WBC 6.5 (4.5-11.0) X10^3/uL RBC 3.42 L (4.5-5.9) X10^6/uL Hgb 9.3 L (13.5-17.5) g/dL Hct 27.7 L (41-53) % MCV 81.1 (80-100) fL MCH 27.2 (26-34) PG MCHC 33.6 (30-36) % RDW 19.3 H (11.6-14.8) % Plt Count 357 (150-400) X10^3/uL Neut % (Auto) 58.5 (50-75) % Lymph % (Auto) 22.2 L (25-40) % [place] % (Auto) 8.6 (3-14) % Eos % (Auto) 8.4 H (2-4) % Baso % (Auto) 2.3 H (0-2) % Neut # (Auto) 3800 (8036-0810) /uL Lymph # (Auto) 1400 (1586-3599) /uL [place] # (Auto) 600 (0-900) /uL Eos # (Auto) 600 H (0-450) /uL Baso # (Auto) 200 H (0-100) /uL Sodium 125 L (137-145) mmol/L Potassium 4.3 (3.4-5.1) mmol/L Chloride 91 L (98-107) mmol/L Carbon Dioxide 27 (22-32) mmol/L BUN 20 (9-20) mg/dL Creatinine 0.35 L (0.66-1.25) mg/dL Estimated GFR > 60 (>60) mL/min BUN/Creatinine Ratio 57.1 H (6-22) Glucose 20 L* (70-99) mg/dL POC Whole Bld Glucose 113 H 59 L (70-99) mg/dL Lactate (0.7-2.1) mmol/L Calcium 7.9 L (8.4-10.2) mg/dL Total Bilirubin 0.2 (0.2-1.3) mg/dL AST 56 (17-59) IU/L ALT 74 H (<50) IU/L Alkaline Phosphatase 106 (38-126) U/L Total Creatine Kinase 43 L (55-170) U/L Troponin I < 0.012 (0.01-0.034) ng/mL Total Protein 6.9 (6.3-8.2) g/dL Albumin 3.1 L (3.5-5.0) g/dL Globulin 3.8 (1.7-4.1) g/dL Albumin/Globulin Ratio 0.8 L (1.0-2.8) Lipase 540 H (23-300) U/L Urine Color Urine Appearance Urine pH (4.5-8.0) Ur Specific [place] (1.000-1.035) Urine Protein (Negative) Urine Glucose (UA) (Negative) g/dL Urine Ketones (NEGATIVE) Urine Occult Blood (Negative) Urine Nitrate (Negative) Urine Bilirubin (NEGATIVE) Urine Urobilinogen (0.2) E.U./dL Ur Leukocyte Esterase (NEGATIVE) Urine RBC (0-5/HPF) Urine WBC (0-5/HPF) Ur Squamous Epith Cells (0-5/HPF) Urine Bacteria (None) Ur Culture Indicated? Vol Urine Centrifuged SARS-CoV-2 (PCR) (Negative) Influenza A (RT-PCR) (NEGATIVE) Influenza B (RT-PCR) (NEGATIVE) RSV (PCR) (Negative) 05/28/25 05/29/25 05/29/25 Range/Units 23:55 00:30 00:53 WBC (4.5-11.0) X10^3/uL RBC (4.5-5.9) X10^6/uL Hgb (13.5-17.5) g/dL Hct (41-53) % MCV (80-100) fL MCH (26-34) PG MCHC (30-36) % RDW (11.6-14.8) % Plt Count (150-400) X10^3/uL Neut % (Auto) (50-75) % Lymph % (Auto) (25-40) % [place] % (Auto) (3-14) % Eos % (Auto) (2-4) % Baso % (Auto) (0-2) % Neut # (Auto) (9651-0700) /uL Lymph # (Auto) (7445-3882) /uL [place] # (Auto) (0-900) /uL Eos # (Auto) (0-450) /uL Baso # (Auto) (0-100) /uL Sodium (137-145) mmol/L Potassium (3.4-5.1) mmol/L Chloride (98-107) mmol/L Carbon Dioxide (22-32) mmol/L BUN (9-20) mg/dL Creatinine (0.66-1.25) mg/dL Estimated GFR (>60) mL/min BUN/Creatinine Ratio (6-22) Glucose (70-99) mg/dL POC Whole Bld Glucose 40 L* 163 H D (70-99) mg/dL Lactate 0.8 (0.7-2.1) mmol/L Calcium (8.4-10.2) mg/dL Total Bilirubin (0.2-1.3) mg/dL AST (17-59) IU/L ALT (<50) IU/L Alkaline Phosphatase (38-126) U/L Total Creatine Kinase (55-170) U/L Troponin I (0.01-0.034) ng/mL Total Protein (6.3-8.2) g/dL Albumin (3.5-5.0) g/dL Globulin (1.7-4.1) g/dL Albumin/Globulin Ratio (1.0-2.8) Lipase (23-300) U/L Urine Color Urine Appearance Urine pH (4.5-8.0) Ur Specific [place] (1.000-1.035) Urine Protein (Negative) Urine Glucose (UA) (Negative) g/dL Urine Ketones (NEGATIVE) Urine Occult Blood (Negative) Urine Nitrate (Negative) Urine Bilirubin (NEGATIVE) Urine Urobilinogen (0.2) E.U./dL Ur Leukocyte Esterase (NEGATIVE) Urine RBC (0-5/HPF) Urine WBC (0-5/HPF) Ur Squamous Epith Cells (0-5/HPF) Urine Bacteria (None) Ur Culture Indicated? Vol Urine Centrifuged SARS-CoV-2 (PCR) (Negative) Influenza A (RT-PCR) (NEGATIVE) Influenza B (RT-PCR) (NEGATIVE) RSV (PCR) (Negative) 05/29/25 05/29/25 05/29/25 Range/Units 01:00 01:37 02:34 WBC (4.5-11.0) X10^3/uL RBC (4.5-5.9) X10^6/uL Hgb (13.5-17.5) g/dL Hct (41-53) % MCV (80-100) fL MCH (26-34) PG MCHC (30-36) % RDW (11.6-14.8) % Plt Count (150-400) X10^3/uL Neut % (Auto) (50-75) % Lymph % (Auto) (25-40) % [place] % (Auto) (3-14) % Eos % (Auto) (2-4) % Baso % (Auto) (0-2) % Neut # (Auto) (6138-6576) /uL Lymph # (Auto) (3428-1326) /uL [place] # (Auto) (0-900) /uL Eos # (Auto) (0-450) /uL Baso # (Auto) (0-100) /uL Sodium (137-145) mmol/L Potassium (3.4-5.1) mmol/L Chloride (98-107) mmol/L Carbon Dioxide (22-32) mmol/L BUN (9-20) mg/dL Creatinine (0.66-1.25) mg/dL Estimated GFR (>60) mL/min BUN/Creatinine Ratio (6-22) Glucose (70-99) mg/dL POC Whole Bld Glucose 92 (70-99) mg/dL Lactate (0.7-2.1) mmol/L Calcium (8.4-10.2) mg/dL Total Bilirubin (0.2-1.3) mg/dL AST (17-59) IU/L ALT (<50) IU/L Alkaline Phosphatase (38-126) U/L Total Creatine Kinase (55-170) U/L Troponin I (0.01-0.034) ng/mL Total Protein (6.3-8.2) g/dL Albumin (3.5-5.0) g/dL Globulin (1.7-4.1) g/dL Albumin/Globulin Ratio (1.0-2.8) Lipase (23-300) U/L Urine Color Yellow Urine Appearance Clear Urine pH 7.5 (4.5-8.0) Ur Specific [place] 1.010 (1.000-1.035) Urine Protein Negative (Negative) Urine Glucose (UA) 1+ H (Negative) g/dL Urine Ketones Negative (NEGATIVE) Urine Occult Blood 1+ H (Negative) Urine Nitrate Negative (Negative) Urine Bilirubin Negative (NEGATIVE) Urine Urobilinogen 0.2 (0.2) E.U./dL Ur Leukocyte Esterase Negative (NEGATIVE) Urine RBC 0-1/hpf (0-5/HPF) Urine WBC None seen (0-5/HPF) Ur Squamous Epith Cells 0-1 /hpf (0-5/HPF) Urine Bacteria None seen (None) Ur Culture Indicated? Cult not indicated Vol Urine Centrifuged 10ml (spun) SARS-CoV-2 (PCR) Negative (Negative) Influenza A (RT-PCR) Flu a negative (NEGATIVE) Influenza B (RT-PCR) Flu b negative (NEGATIVE) RSV (PCR) Negative (Negative) 05/29/25 Range/Units 03:33 WBC (4.5-11.0) X10^3/uL RBC (4.5-5.9) X10^6/uL Hgb (13.5-17.5) g/dL Hct (41-53) % MCV (80-100) fL MCH (26-34) PG MCHC (30-36) % RDW (11.6-14.8) % Plt Count (150-400) X10^3/uL Neut % (Auto) (50-75) % Lymph % (Auto) (25-40) % [place] % (Auto) (3-14) % Eos % (Auto) (2-4) % Baso % (Auto) (0-2) % Neut # (Auto) (6207-3704) /uL Lymph # (Auto) (4358-7133) /uL [place] # (Auto) (0-900) /uL Eos # (Auto) (0-450) /uL Baso # (Auto) (0-100) /uL Sodium (137-145) mmol/L Potassium (3.4-5.1) mmol/L Chloride (98-107) mmol/L Carbon Dioxide (22-32) mmol/L BUN (9-20) mg/dL Creatinine (0.66-1.25) mg/dL Estimated GFR (>60) mL/min BUN/Creatinine Ratio (6-22) Glucose (70-99) mg/dL POC Whole Bld Glucose 94 (70-99) mg/dL Lactate (0.7-2.1) mmol/L Calcium (8.4-10.2) mg/dL Total Bilirubin (0.2-1.3) mg/dL AST (17-59) IU/L ALT (<50) IU/L Alkaline Phosphatase (38-126) U/L Total Creatine Kinase (55-170) U/L Troponin I (0.01-0.034) ng/mL Total Protein (6.3-8.2) g/dL Albumin (3.5-5.0) g/dL Globulin (1.7-4.1) g/dL Albumin/Globulin Ratio (1.0-2.8) Lipase (23-300) U/L Urine Color Urine Appearance Urine pH (4.5-8.0) Ur Specific [place] (1.000-1.035) Urine Protein (Negative) Urine Glucose (UA) (Negative) g/dL Urine Ketones (NEGATIVE) Urine Occult Blood (Negative) Urine Nitrate (Negative) Urine Bilirubin (NEGATIVE) Urine Urobilinogen (0.2) E.U./dL Ur Leukocyte Esterase (NEGATIVE) Urine RBC (0-5/HPF) Urine WBC (0-5/HPF) Ur Squamous Epith Cells (0-5/HPF) Urine Bacteria (None) Ur Culture Indicated? Vol Urine Centrifuged SARS-CoV-2 (PCR) (Negative) Influenza A (RT-PCR) (NEGATIVE) Influenza B (RT-PCR) (NEGATIVE) RSV (PCR) (Negative) Point of Care Testing Glucose POC 163 Point of care testing: Point of Care Testing Glucose POC 163 Imaging Data Chest x-ray: Radiologist's Impression: [address] [address] XRay Report Signed Patient: Jonnie Christopher MR#: [id number] : 1980 Acct:[id number] Age/Sex: 45 / M Date of Service: 05/28/25 Loc: ED Accession Number: [id number] Procedure: XR chest 1V Ordering Provider: Parth Hudson MD PROCEDURE: XR CHEST 1V INDICATIONS: chest pain TECHNIQUE: One view of the chest was acquired. COMPARISON: [facility], CR, XR CHEST 1V, 05/10/2025, 13:12. [facility], CR, XR CHEST 1V, 05/21/2025, 7:39. FINDINGS: Surgical changes and devices: Tracheostomy tube as as presumed cardiac monitoring device. Lungs and pleura: No gross consolidations. Possible minimal effusion. Patient is markedly rotated. Mediastinum: Mediastinal contours appear normal. Heart size is enlarged. Bones and chest wall: No suspicious bony lesions. Overlying soft tissues appear unremarkable. IMPRESSION: Possible minimal effusion accounting for rotation. Dictated by: Ruthann Woodward M.D. on 05/28/2025 at 23:47 Approved by: Ruthann Woodward M.D. on 05/28/2025 at 23:49 ECG Data Attestation: I personally reviewed and interpreted this ECG as follows: Interpretation: 2326, normal sinus rhythm with rate of 68, no obvious ST segment elevation or depression changes. CT 132, QRS 82, QTC 491. [facility] Narrative Medical decision making narrative: 45-year-old male with history of prior glioms, right hemiplegia, spastic left hemiparesis, tracheostomy, history of recurrent aspiration, percutaneous feeding tube, chronic anticoagulation, prior pulmonary embolus, chronic anticoagulation, recently admitted for G-tube problem with new G-tube apparently placed, was discharged yesterday to home, noted by family/caregivers to have decreased mental status at home, symptoms similar to prior sepsis episodes. No known hx diabetes mellitus. EMS response, serum glucose found to be 20, IV dextrose administered, improved glucose level and mental status during transport. No seizure activity reported. No fevers reported. No problems with new left-sided GI feeding tube. Hypoglycemia unclear cause, no known history of diabetes, intermittent episodes in the past. Prior sepsis in the past. No fever on triage. Labs sent including lactate. IV dextrose infusion. EMS IV dextrose bolus given. Lab data: White blood cell count 6500, hemoglobin 9.3, platelets adequate. Glucose 20 from blood draw obtained by EMS before initial treatment prior to arrival. BUN 20 with creatinine 0.35 normal renal function. Serum CO2 27. Sodium 125 low. Potassium 4.3 normal, serum chloride 91 decreased. CPK 43 low. Serum albumin 3.1 low. ALT slight elevation, other liver functions unremarkable. Lipase 540 slight elevation. Lactate 0.08 normal. Glucose elevated and then drifting down 40s on D5 NS 150mL/h, we will Re bolus with D50, and increased D5 NS to 200 mL/hour. Consider D10 drip if refractory. IV glucagon ordered. Serum insulin and C-peptide send out lab also sent. Recent adjustment/new feeding tube, we will obtain CT abdomen and pelvis to look for sources of sepsis, and also evaluate G-tube position. CT abdomen and pelvis IV contrast study ordered. COVID influenza RSV negative. Urinalysis negative. CT abdomen and pelvis with IV contrast. Impressions: ?Loculated mild bilateral pleural effusions with ihoi-[id number]-xtdy-right basilar nonspecific densities. Cholelithiasis in contracted gallbladder again noted but with new slight fluid attenuation at eusebia hepatis nonspecific in light of mild ascites. If clinically indicated, gallbladder ultrasound after 8 hour. A fasting recommended. Nondistention artifact versus antral gastritis.? See tele radiology report. No acute intestinal changes. No mention of pancreatic or other masses suggestive for insulinoma. IV Pepcid. 0315, Patient with complex medical history, co-morbidities, recent G-tube revision, persistent hypoglycemia on dextrose infusion, also with hyponatremia and anemia. No G-tube or other acute gastrointestinal process on CT imaging. Consider readmission. Mother who is medical power of traffic law attorney at bedside, agrees with recommendation for admission, states that PCP Rolando. Full code status per mother medical power of traffic law attorney. We will contact hospitalist regarding admission. Could consider empiric antibiotics in case pneumonia accounting for densities at basilar imaging lung on abdominal scan. We will discuss antibiotics and disposition with hospitalist. Last glucoses 92 then 94 on dextrose IV infusion D5NS @ 200ml/hr. Mother reports patient takes feeding tube regimen of four cartons of Rapid RMS daily. We will query inpatient team regarding his tube feed regimen from recent stay. Consider tube feed bolus unless keeping NPO/NPT for later gallbladder ultrasound. Hold tube feeds bolus for now. Case discussed with hospitalist, patient also takes hydrocortisone, IV hydrocortisone 100 mg bolus also ordered. Dextrose infusion noted. Saline infusion in progress. Hyponatremia and hypoglycemia noted. Consider adding antibiotic, blood cultures requested. Penicillin and quinolone antibiotic allergies noted, we will defer antibiotic regimen to hospitalist. Admit to hospitalist service. Case discussed with hospitalist Dr. Taylor who accepts patient for admission to inpatient service 0400, history of allergies to penicillin (rash) and who levofloxacin. Update Dr. Taylor who requests IV ceftriaxone and IV Flagyl, ordered. Critical Care Time Critical Care Time Total Critical Care Time: 35 Attestation: The high probability of a clinically significant, sudden or life threatening deterioration of the [gastrointestinal, metabolic] system(s) required my full and direct attention, intervention and personal management. The aggregate critical care time was [35] minutes. This time is in addition to time spent performing reported procedures but includes the following: [x] Data Review and interpretation [x] Patient assessment and monitoring of vital signs [x] Documentation [x] Medication orders and management Discharge Plan Departure Patient Disposition: Admitted As Inpatient Clinical Impression: Hypoglycemia, Acute hyponatremia, Anemia, Cholelithiasis, History of glioma, History of hemiparesis, History of jejunostomy Admit Date/Time: 05/29/25 04:33 Admit Provider: Orville Taylor
[2025-05-28 23:10] VITALS: PULSE 66; O2SAT 97
[2025-05-28 23:11] VITALS: BP 102/70; PULSE 67; RESP 17; O2SAT 97
--- NOTE | 2025-05-28 23:11 | DI.RAD.S_ITS ---
PROCEDURE: XR CHEST 1V INDICATIONS: chest pain TECHNIQUE: One view of the chest was acquired. COMPARISON: [facility], CR, XR CHEST 1V, 05/10/2025, 13:12. [facility], CR, XR CHEST 1V, 05/21/2025, 7:39. FINDINGS: Surgical changes and devices: Tracheostomy tube as as presumed cardiac monitoring device. Lungs and pleura: No gross consolidations. Possible minimal effusion. Patient is markedly rotated. Mediastinum: Mediastinal contours appear normal. Heart size is enlarged. Bones and chest wall: No suspicious bony lesions. Overlying soft tissues appear unremarkable. IMPRESSION: Possible minimal effusion accounting for rotation. Dictated by: Ruthann Woodward M.D. on 05/28/2025 at 23:47 Approved by: Ruthann Woodward M.D. on 05/28/2025 at 23:49
--- NOTE | 2025-05-28 23:11 | EKG_ITS ---
[address] [address] Test Date: 2025-05-28 Pat Name: Jonnie Christopher Department: 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
[2025-05-28 23:14] VITALS: BP 102/70; PULSE 66; RESP 17; TEMP 36.1; O2SAT 97
--- NOTE | 2025-05-28 23:26 | EKG_ITS ---
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
[2025-05-28 23:30] VITALS: PULSE 66; RESP 21; O2SAT 98
[2025-05-28 23:34] LABS: Add Manual Diff / Slide Review NO; Hematocrit 27.7 % (41-53); Hemoglobin 9.3 g/dL (13.5-17.5); Lymphocytes Absolute Auto 1400 /uL (1100-4500); Mean Corpuscular HGB Conc 33.6 % (30-36); Mean Corpuscular Hemoglobin 27.2 PG (26-34); Mean Corpuscular Volume 81.1 fL (80-100); Platelet Count 357 X10^3/uL (150-400)
[2025-05-28 23:45] LABS: Alanine Aminotransferase 74 IU/L (<50); Albumin 3.1 g/dL (3.5-5.0); Albumin Globulin Ratio 0.8 (1.0-2.8); Alkaline Phosphatase 106 U/L (38-126); Blood Urea Nitrogen 20 mg/dL (9-20); Calcium 7.9 mg/dL (8.4-10.2); Carbon Dioxide 27 mmol/L (22-32); Chloride 91 mmol/L (98-107); Creatine Kinase 43 U/L (55-170); Estimated Glomerular Filt Rate > 60 mL/min (>60); Globulin 3.8 g/dL (1.7-4.1); HEMOLYSIS < 15 (0-50); Lipase 540 U/L (23-300); Potassium 4.3 mmol/L (3.4-5.1); Sodium 125 mmol/L (137-145); Total Protein 6.9 g/dL (6.3-8.2)
[2025-05-28 23:48] LABS: Glucose 20 mg/dL (70-99)
[2025-05-28 23:57] LABS: Troponin I < 0.012 ng/mL (0.01-0.034)
[2025-05-28] MEDS: DEXTROSE 5%-0.9% NS 1,000 ML 150 ML IV (23:58)
[2025-05-29] VITALS (31 sets, daily range): BP systolic 88–120; BP diastolic 53–80; PULSE 62–86; RESP 18–25; TEMP 36–36.6; O2SAT 98–100; BMI 22.6
--- NOTE | 2025-05-29 | DI.US.S_ITS ---
PROCEDURE: US ABDOMEN LIMITED INDICATIONS: RUQ to rule out bilary obstruction TECHNIQUE: Real-time scanning was performed of the abdominal and retroperitoneal organs, with image documentation. COMPARISON: [facility], US, US ABDOMEN LIMITED, 11/22/2024, 1:13. FINDINGS: Liver: There is mild hepatomegaly. No discrete hepatic lesion. Gallbladder: Multiple stones are noted within gallbladder lumen. Gallbladder is contracted. Nonmobile stone is noted in neck of gallbladder measures 13 mm in size. There is borderline gallbladder wall thickening measures 2.8 mm in thickness. No pericholecystic fluid or sonographic Gabriel sign. Biliary ducts: Intrahepatic bile ducts are non-dilated. Extrahepatic bile duct caliber measures 3.4 mm. Normal is 6-7 mm or less in diameter, or 10 mm or less post-cholecystectomy. Pancreas: Not visualized due to overlying bowel gas. Miscellaneous: No free abdominal fluid. IMPRESSION: 1. Nonmobile gallstone in neck of gallbladder. Borderline gallbladder wall thickening. No sonographic Gabriel sign to suggest acute cholecystitis. No pericholecystic fluid. If indicated, this can be further worked up with nuclear medicine HIDA scan. 2. No biliary ductal dilatation. 3. Mild hepatomegaly. No discrete hepatic lesion. Dictated by: Jarocho Garzon M.D. on 05/29/2025 at 8:18 Approved by: Jarocho Garzon M.D. on 05/29/2025 at 8:21
[2025-05-29 00:16] LABS: Lactate (Lactic Acid) 0.8 mmol/L (0.7-2.1)
--- NOTE | 2025-05-29 00:33 | DI.CT.S_ITS ---
PROCEDURE: CT ABDOMEN PELVIS W CON INDICATIONS: low sugar, ?cause, no hx DM, eval for pancreatic tumor/other TECHNIQUE: After the administration of intravenous contrast, axial sections acquired from the lung bases to the pubic symphysis. Coronal and sagittal reformats were performed. For radiation dose reduction, the following was used: automated exposure control, adjustment of mA and/or kV according to patient size. COMPARISON: [facility], CT, CT ABDOMEN PELVIS W CON, 11/21/2024, 20:22. FINDINGS: Image quality: Diagnostic. Lower Chest: Small to moderate left pleural effusion and left basilar infiltrate/atelectasis is again seen. Small right pleural effusion is also noted with adjacent compressive atelectasis in posterior aspect of right lung base. Heart size is mildly enlarged, no pericardial effusion. ABDOMEN: Liver: No solid mass. Hepatomegaly. Gallbladder: Multiple gallstones with suggestion of gallbladder wall thickening. Biliary ducts: No biliary dilation. Pancreas: No ductal dilation. Spleen: Size is within normal limits. Adrenal Glands: No adrenal nodules. Kidneys and Ureters: No hydronephrosis. No solid mass. No complex renal cystic lesion which requires follow up. Stomach and Bowel: There is suggestion of mild to distal gastric wall thickening and edema. Percutaneous jejunostomy tube is seen, the tip is within the small bowel loop. No abnormal small bowel wall thickening. No colonic wall thickening. Sigmoid diverticulosis without CT evidence of acute diverticulitis. No gross abscess collection. Peritoneum: Small amount of free fluid is seen in lower pelvis. No free air. Ventral Wall: No significant ventral hernia. Generalized anasarca. Postsurgical changes in midline anterior lower abdominal wall. Abdominal Nodes: No retroperitoneal or mesenteric adenopathy by size criteria. Vessels: Aorta and inferior vena cava are normal in size. PELVIS: Pelvic Organs: Unremarkable. Bladder: No bladder wall thickening, accounting for underdistention. Pelvic Nodes: No enlarged lymph nodes. Miscellaneous: No inguinal hernias are seen. Bones: No aggressive osseous abnormality. IMPRESSION: 1. Left greater than right bilateral pleural effusion with bibasilar infiltrate/atelectasis as above. 2. Generalized anasarca and small amount of free fluid in lower abdomen. No gross free air. 3. Cholelithiasis with contracted gallbladder and questionable gallbladder wall thickening. Ultrasound of right upper quadrant can be done for further evaluation of gallbladder if indicated. 4. Suggestion of infectious inflammatory gastritis versus under distension. 5. Percutaneous jejunostomy tube tip is intraluminal. No small bowel or colon wall thickening. No abscess collection. No significant discrepancies from preliminary reading. Dictated by: Jarocho Garzon M.D. on 05/29/2025 at 8:12 Approved by: Jarocho Garzon M.D. on 05/29/2025 at 8:18
[2025-05-29] MEDS: DEXTROSE 50 % IN WATER 25 GM/50 ML SYRINGE IV (00:35)
[2025-05-29 01:57] LABS: Appearance Urine UA CLEAR; Bilirubin Urine UA NEGATIVE (NEGATIVE); Color Urine UA YELLOW; Glucose Urine UA 1+ g/dL (Negative); Ketones Urine UA NEGATIVE (NEGATIVE); Leukocyte Esterase Urine UA NEGATIVE (NEGATIVE); Nitrite Urine UA NEGATIVE (Negative); Occult Blood Urine UA 1+ (Negative); Protein Urine UA NEGATIVE (Negative); Specific Gravity Urine UA 1.010 (1.000-1.035); Urobilinogen Urine UA 0.2 E.U./dL (0.2); pH Urine UA 7.5 (4.5-8.0)
[2025-05-29 01:58] LABS: Influenza A - CEPHEID Flu A NEGATIVE (NEGATIVE); Influenza B - CEPHEID Flu B NEGATIVE (NEGATIVE)
[2025-05-29 02:01] LABS: COVID-19 CEPHEID 4-PLEX PCR Negative (Negative)
[2025-05-29 02:03] LABS: Culture Indicated Urine Cult Not Indicated
[2025-05-29] MEDS: FAMOTIDINE 20 MG/2 ML VIAL IV (03:30)
--- NOTE | 2025-05-29 04:51 | PM.HP.1 ---
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 Of note the patient's mother reports that the patient was discharged home yesterday and was noted to have altered mental status by the patient's family caregiver. EMS was called and the glucose was in the 20s. IV dextrose given and patient mentation did improve. No reported seizure activity. Of note the patient does have intermittent hypoglycemic episode in the past. It is unclear if the patient's revision G-tube was working. In the emergency room, the patient remains hemodynamically stable. The patient require D5 to maintain glucose in the 90s. Patient's labs shows a sodium 125 WBC 6.5 hemoglobin 9.3. Per ER physician the peak patient did have a fever. UA was negative and lactate was normal. Chest x-ray shows no signs of pneumonia. CT abdomen and pelvis with IV contrast shows loculated mild bilateral pleural effusion with left greater than right and cholelithiasis with contracted gallbladder. It is recommended that we obtain gallbladder ultrasound after [address] however did not show any acute finding regarding T2 placement. Empiric IV ceftriaxone and IV Flagyl was given due to finding of contracted gallbladder with cholelithiasis and recent surgery. In addition the patient does take hydrocortisone at home but unclear if the patient has a known able to take it leading to possible hypoglycemia. IV hydrocortisone 100 mg bolus was ordered. 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 Father No problems noted. Social History marital status: unmarried,single details: Lives independantly with part-time caregivers household members: none lives independently: Yes occupational status: disabled alcohol intake: never substance use type: marijuana Meds Home Medications and Allergies Home Medications ?Medication ?Instructions ?Recorded ?Confirmed ?Type Battery Powered Lift #1 ea 03/02/18 05/28/25 Rx Power Chair #1 ea 10/16/18 05/28/25 Rx Disabled Parking #1 ea 01/15/19 05/28/25 Rx Shower Chair #1 ea 07/04/19 05/28/25 Rx ferrous sulfate 325 mg (65 mg 130 mg PO DAILY 10/29/21 05/28/25 History iron) tablet XL mattress for semi-electric #1 ea 09/27/22 05/28/25 Rx hospital bed baclofen 5 mg/5 mL oral solution 5 mg (5 mL) PO DAILY #473 mL 01/20/23 05/28/25 Rx syringe with needle 3 mL 20 gauge #1 ea 08/10/23 05/28/25 History x 1 (BD Luer-Rafael Syringe) Mattress #1 ea 03/28/24 05/28/25 Rx Semi-electric hospital bed #1 ea 03/28/24 05/28/25 Rx apixaban 5 mg tablet (Eliquis) 5 mg PO BID #60 tabs 08/15/24 05/28/25 Rx blood-glucose meter (True Metrix #1 ea 12/05/24 05/28/25 History Air Glucose Meter) glucagon 1 mg solution for 1 mg IM ONCE 12/05/24 05/28/25 History injection (Glucagon Emergency Kit) folic acid 1 mg tablet 1 mg PO DAILY #90 tabs 12/13/24 05/28/25 Rx Lingraphica Communication Device #1 ea 01/23/25 05/28/25 Rx scopolamine base 1 mg over 3 days 1 patch topical Q3D #24 ea 03/15/25 05/28/25 Rx transdermal patch sodium chloride 0.9 % for 2.5 ml inhalation Q12H PRN 03/15/25 05/28/25 Rx nebulization shortness of breath or wheezing #300 mL suction catheter kit #5 ea 03/20/25 05/28/25 Rx sertraline 100 mg tablet 200 mg (2 x 100 mg) PO DAILY #60 05/01/25 05/28/25 Rx tabs banana 1 ea PO 4XD #450 ea 05/02/25 05/28/25 Rx flakes-transgalactooligosaccharide oral powder packet (Banatrol Plus oral powder packet) midodrine 10 mg tablet 10 mg feeding tube Q8H #270 tabs 05/06/25 05/28/25 Rx hydrocortisone 10 mg tablet 10 mg PO DAILY #30 tabs 05/26/25 05/28/25 Rx hydrocortisone 10 mg tablet 10 mg PO DAILY #30 tabs 05/26/25 05/28/25 Rx (Cortef) petrolatum, white-lanolin topical ea topical PRN 05/28/25 05/28/25 History ointment (Vitamin A and D Diaper Rash topical ointment) zinc oxide-cod liver oil topical ea topical PRN 05/28/25 05/28/25 History ointment Allergies Allergy/AdvReac Type Severity Reaction Status Date / Time Penicillins (PENICILLINS) Allergy Severe RASH Verified 05/09/25 09:51 levofloxacin Allergy Intermediate Rash Verified 05/09/25 09:51 Review of Systems Review of Systems ROS: Yes All systems reviewed with the patient and are negative except as otherwise documented Exam Vital Signs (past 8 hours): - 05/28/25 23:10 05/28/25 23:11 05/28/25 23:11 Temperature Pulse Rate 66 67 Respiratory Rate 17 Blood Pressure 102/70 Pulse Oximetry 97 97 Oxygen Delivery Method Room Air 05/28/25 23:14 05/28/25 23:30 05/29/25 00:00 Temperature 97.0 F L Pulse Rate 66 66 63 Respiratory Rate 17 21 19 Blood Pressure 102/70 Pulse Oximetry 97 98 98 Oxygen Delivery Method Room Air 05/29/25 00:30 05/29/25 00:40 05/29/25 00:40 Temperature Pulse Rate 65 66 Respiratory Rate 23 21 Blood Pressure 120/74 Pulse Oximetry 100 100 Oxygen Delivery Method Room Air Room Air 05/29/25 01:00 05/29/25 01:14 05/29/25 01:14 Temperature Pulse Rate 63 62 Respiratory Rate 19 20 Blood Pressure 102/66 Pulse Oximetry 100 100 Oxygen Delivery Method Room Air 05/29/25 01:31 05/29/25 01:35 05/29/25 01:35 Temperature Pulse Rate 64 63 Respiratory Rate 21 19 Blood Pressure 106/77 Pulse Oximetry 100 Oxygen Delivery Method Room Air Oxygen Delivery Method Room Air Narrative Exam Narrative: Physical Exam: GENERAL: The patient is not in any acute distressed. Awake but lethargic. HEENT: Nonicteric sclerae, PERRLA, EOMI. Oropharynx clear. Moist mucous membranes. Conjunctivae appear well perfused. HEART: Regular rate and rhythm without murmurs. No lower extremities edema. LUNGS: Clear to auscultation bilaterally. No wheezing, crackles or rhonchi ABDOMEN: Soft, Recent surgical wound in place with G tube seen. positive bowel sounds, nontender. SKIN: No rash, no excessive bruising, petechiae, or purpura. NEUROLOGIC: AxO x 3. bilateral weakness due to stroke Objective Labs 05/28/25 23:00 05/28/25 23:00 Labs: Laboratory Results - last 24 hr 05/28/25 05/28/25 05/28/25 23:00 23:07 23:51 WBC 6.5 RBC 3.42 L Hgb 9.3 L Hct 27.7 L MCV 81.1 MCH 27.2 MCHC 33.6 RDW 19.3 H Plt Count 357 Neut % (Auto) 58.5 Lymph % (Auto) 22.2 L Gosper % (Auto) 8.6 Eos % (Auto) 8.4 H Baso % (Auto) 2.3 H Neut # (Auto) 3800 Lymph # (Auto) 1400 [place] # (Auto) 600 Eos # (Auto) 600 H Baso # (Auto) 200 H Sodium 125 L Potassium 4.3 Chloride 91 L Carbon Dioxide 27 BUN 20 Creatinine 0.35 L Estimated GFR > 60 BUN/Creatinine Ratio 57.1 H Glucose 20 L* POC Whole Bld Glucose 113 H 59 L Lactate Calcium 7.9 L Total Bilirubin 0.2 AST 56 ALT 74 H Alkaline Phosphatase 106 Total Creatine Kinase 43 L Troponin I < 0.012 Total Protein 6.9 Albumin 3.1 L Globulin 3.8 Albumin/Globulin Ratio 0.8 L Lipase 540 H Urine Color Urine Appearance Urine pH Ur Specific Roy Urine Protein Urine Glucose (UA) Urine Ketones Urine Occult Blood Urine Nitrate Urine Bilirubin Urine Urobilinogen Ur Leukocyte Esterase Urine RBC Urine WBC Ur Squamous Epith Cells Urine Bacteria Ur Culture Indicated? Vol Urine Centrifuged SARS-CoV-2 (PCR) Influenza A (RT-PCR) Influenza B (RT-PCR) RSV (PCR) 05/28/25 05/29/25 05/29/25 23:55 00:30 00:53 WBC RBC Hgb Hct MCV MCH MCHC RDW Plt Count Neut % (Auto) Lymph % (Auto) [place] % (Auto) Eos % (Auto) Baso % (Auto) Neut # (Auto) Lymph # (Auto) [place] # (Auto) Eos # (Auto) Baso # (Auto) Sodium Potassium Chloride Carbon Dioxide BUN Creatinine Estimated GFR BUN/Creatinine Ratio Glucose POC Whole Bld Glucose 40 L* 163 H D Lactate 0.8 Calcium Total Bilirubin AST ALT Alkaline Phosphatase Total Creatine Kinase Troponin I Total Protein Albumin Globulin Albumin/Globulin Ratio Lipase Urine Color Urine Appearance Urine pH Ur Specific Roy Urine Protein Urine Glucose (UA) Urine Ketones Urine Occult Blood Urine Nitrate Urine Bilirubin Urine Urobilinogen Ur Leukocyte Esterase Urine RBC Urine WBC Ur Squamous Epith Cells Urine Bacteria Ur Culture Indicated? Vol Urine Centrifuged SARS-CoV-2 (PCR) Influenza A (RT-PCR) Influenza B (RT-PCR) RSV (PCR) 05/29/25 05/29/25 05/29/25 01:00 01:37 02:34 WBC RBC Hgb Hct MCV MCH MCHC RDW Plt Count Neut % (Auto) Lymph % (Auto) [place] % (Auto) Eos % (Auto) Baso % (Auto) Neut # (Auto) Lymph # (Auto) [place] # (Auto) Eos # (Auto) Baso # (Auto) Sodium Potassium Chloride Carbon Dioxide BUN Creatinine Estimated GFR BUN/Creatinine Ratio Glucose POC Whole Bld Glucose 92 Lactate Calcium Total Bilirubin AST ALT Alkaline Phosphatase Total Creatine Kinase Troponin I Total Protein Albumin Globulin Albumin/Globulin Ratio Lipase Urine Color Yellow Urine Appearance Clear Urine pH 7.5 Ur Specific Roy 1.010 Urine Protein Negative Urine Glucose (UA) 1+ H Urine Ketones Negative Urine Occult Blood 1+ H Urine Nitrate Negative Urine Bilirubin Negative Urine Urobilinogen 0.2 Ur Leukocyte Esterase Negative Urine RBC 0-1/hpf Urine WBC None seen Ur Squamous Epith Cells 0-1 /hpf Urine Bacteria None seen Ur Culture Indicated? Cult not indicated Vol Urine Centrifuged 10ml (spun) SARS-CoV-2 (PCR) Negative Influenza A (RT-PCR) Flu a negative Influenza B (RT-PCR) Flu b negative RSV (PCR) Negative 05/29/25 03:33 WBC RBC Hgb Hct MCV MCH MCHC RDW Plt Count Neut % (Auto) Lymph % (Auto) [place] % (Auto) Eos % (Auto) Baso % (Auto) Neut # (Auto) Lymph # (Auto) [place] # (Auto) Eos # (Auto) Baso # (Auto) Sodium Potassium Chloride Carbon Dioxide BUN Creatinine Estimated GFR BUN/Creatinine Ratio Glucose POC Whole Bld Glucose 94 Lactate Calcium Total Bilirubin AST ALT Alkaline Phosphatase Total Creatine Kinase Troponin I Total Protein Albumin Globulin Albumin/Globulin Ratio Lipase Urine Color Urine Appearance Urine pH Ur Specific Roy Urine Protein Urine Glucose (UA) Urine Ketones Urine Occult Blood Urine Nitrate Urine Bilirubin Urine Urobilinogen Ur Leukocyte Esterase Urine RBC Urine WBC Ur Squamous Epith Cells Urine Bacteria Ur Culture Indicated? Vol Urine Centrifuged SARS-CoV-2 (PCR) Influenza A (RT-PCR) Influenza B (RT-PCR) RSV (PCR) Assessment & Plan Assessment & Plan narrative: Hypoglycemia. Admit the patient to ICU. Unclear etiology. Of note the patient does take hydrocortisone at home but unclear if the patient has been able to take it since discharge from the hospital. The patient did receive 1 dose of IV hydrocortisone 100 mg in the ER. In addition we have not sure if G-tube is working properly and the patient has been getting tube feeds since discharge. Will continue D5 for now as patient glucose is more stable and greater than 90. Will need to get surgery consultation in the morning to see if G-tube is working properly so we can resume tube feeding. Note patient is not a diabetic and does not have any medication that potentially can cause hypoglycemia. Hyponatremia. Sodium 125. Likely due to dehydration. Patient did get NS in the ER. Will continue NS and recheck sodium in 8 hours. Cholelithiasis with contracted gallbladder seen on CT scan. Of note bilirubin is normal and LFTs not significantly elevated. However will get right upper quadrant ultrasound as suggested by our radiologist with CT scan report. Will need to follow-up on ultrasound result and would need to discuss with general surgery if indicated. Will continue empiric IV ceftriaxone and IV Flagyl. Recently had G-tube revision. Wound looks in place. Again would need to discuss with general surgery regarding G-tube function in the morning. History of PE. Resume home Eliquis. History of stroke. Will need PT OT. DVT prophylaxis Eliquis. CODE STATUS full code. Disposition likely home in 2 days. - As the provider of this telehealth evaluation, requested by the patient's evaluating physician, I attest that I introduced myself to the patient, provided my credentials and determined that telemedicine via a real-time, 2 way interactive audio and video platform is an appropriate and effective means of providing this service. - I reviewed the patient's chart and had a discussion with the member of the patient's treatment team. - The patient and I mutually agreed with continuation of this evaluation via telemedicine. The patient consented for the telemedicine evaluation. - This virtual encounter was taken place from [place] by Dr. Orville Taylor. The patient was evaluated at [facility]. The encounter was approximately 35 minutes. The nurse was present during the entire time of the encounter and was able to assists with exam/stethoscope. Time-Based Coding :: [TOTAL MINUTES] spent with patient and on the chart (including review of chart, obtaining history, exam, reviewing outside data, placing orders, documenting exam and treatment plan, and counseling patient) on [DATE].
[2025-05-29] MEDS: HYDROCORTISONE 100 MG/2 ML VIAL IV (04:54)
[2025-05-29] MEDS: DEXTROSE 5%-0.9% NS 1,000 ML 100 ML IV ×2 (04:54→14:59)
[2025-05-29] MEDS: cefTRIAXone 2,000 MG in SODIUM CHLORIDE 0.9% 100 ML 200 MG IV (04:55)
[2025-05-29] MEDS: metroNIDAZOLE 500 MG/100 ML PIGGYBACK 100 MG IV ×4 (06:12→22:44)
[2025-05-29] MEDS: DEXTROSE 10 % IN WATER 100 ML 1200 ML IV (07:24)
[2025-05-29] MEDS: SCOPOLAMINE 1 PATCH TOP (09:53)
[2025-05-29] MEDS: SERTRALINE 50 MG TABLET 200 MG PO (11:01)
[2025-05-29] MEDS: FERROUS SULFATE 325 MG TABLET PO (11:01)
[2025-05-29] MEDS: BACLOFEN 10 MG TABLET 5 MG PO (11:01)
[2025-05-29] MEDS: HYDROCORTISONE 10 MG TABLET PO (11:01)
[2025-05-29] MEDS: APIXABAN 5 MG TABLET PO ×2 (11:01→22:43)
[2025-05-29] MEDS: FOLIC ACID 1 MG TABLET PO (11:01)
[2025-05-29 11:22] LABS: Blood Urea Nitrogen 12 mg/dL (9-20); Calcium 7.7 mg/dL (8.4-10.2); Carbon Dioxide 22 mmol/L (22-32); Chloride 96 mmol/L (98-107); Estimated Glomerular Filt Rate > 60 mL/min (>60); Glucose 123 mg/dL (70-99); HEMOLYSIS < 15 (0-50); Potassium 3.8 mmol/L (3.4-5.1); Sodium 125 mmol/L (137-145)
--- NOTE | 2025-05-29 11:26 | PC.WOUNDPHOT ---
Wounds. Pt receiving bed bath at this time.
--- NOTE | 2025-05-29 11:31 | DIET.CONS ---
Dietary Consultation Note Admission Date: 05/29/2025 04:33 Assessment: 45 y M admitted for hypoglycemia/hyponatremia. Dietitian consulted for tube feeds. Per hospitalist, okay to restart tube feeds. Order below. Unclear whether infusion solutions sent over TF pump for continuous enteral nutrition and if pt resumed continuous tube feeds upon d/c home. Ht: Wt: 69 kg BMI: 25.2 UBW:160 lb (72.7 kg) Last BM: 05/29/25 (05/29/25 09:26) MNA: Krishan Score: 8 Diet: 05/29/25 03:51 NPO Diet Diet Modifications: NPO Type: NPO except for Meds 05/29/25 Lunch Tube Feeding Diet Diet Modifications: see comment below on [employer] Protein Packets TF Supplement type: Jevity 1.2 saurav TF mode of delivery: Continuous Starting flow rate mL/hr: 20 Flow rate goal mL/hr: 60 Titration Schedule to reach Goal Rate: 10 mL Q4H Max total daily volume in mL: 2,500 Free fluid: 60 Free Water Frequency: Q4H Comment: 1 [employer] Protein packet TID, administered per packet instructions Labs: RBC 3.42 X10^6/uL (4.5-5.9) L 05/28/25 23:00 Hgb 9.3 g/dL (13.5-17.5) L 05/28/25 23:00 Hct 27.7 % (41-53) L 05/28/25 23:00 Creatinine 0.32 mg/dL (0.66-1.25) L 05/29/25 10:56 Lactate 0.8 mmol/L (0.7-2.1) 05/28/25 23:55 Nutrition Diagnosis: -Altered GI function r/t changes in GI tract motility as evidenced by copious loose stool, inadequate soluble fiber -Increased nutrient needs (protein) r/t healing needs as evidenced by skin breakdown and wounds -Severe chronic Protein Calorie Malnutrition r/t altered GI tract motility and increased needs (protein) as evidenced by severe muscle wasting in temples and deltoid, severe buccal and orbital subcutaneous fat loss, <60% of estimated protein needs due to malabsorption and wound healing needs for >1 month Interventions: 1. Continuous Jevity 1.2 starting at 20 mL/hr and advancing 10 mL Q4H as tolerated until goal rate of 60 mL/hr. 1 [employer] protein packet (11 g protein, 40 kcals each) TID per packet instructions. Flush 60 mL Q4H of free water. Pt also getting IV fluids. This provides 1848 kcals (97% of estimated calorie needs), 113 g protein (100% protein needs). Feeds and flushes currently provide 1522 mL free water. EER: 1900 kcals (27 kcals/kg per BMI) 100-115 g protein (1.5-1.7 g/kg per wound and PCM), 2400 mL (35 mL/kg) Monitoring/Evaluations: tolerance, d/c plan Electronically Signed by: Flakita Hopkins 05/29/25 11:31 Clinical Dietitian [address] [id number]
--- NOTE | 2025-05-29 11:35 | PT-IP ANOTE ---
PT eval order received. EMR reviewed. Pt is total A with all mobilities. Talked with nurse and confirmed that pt is total A and is at baseline. Will d/c PT eval order. No PT needs at this time.
[2025-05-29] MEDS: MIDODRINE HCL 5 MG TABLET 10 MG TUBE ×2 (12:55→20:42)
--- NOTE | 2025-05-29 16:45 | PM.CN ---
History of Present Illness Consult details Date Patient Seen: 05/29/25 Time Patient Seen: 16:00 Chief complaint: Hypoglycemic Narrative: The patient is a 45-year-old male with cerebral palsy who recently underwent exploratory laparotomy, repair of stomach, and placement of jejunostomy feeding tube on May 10, 2025. He was discharged home 2 days and then readmitted with severe hypoglycemia. The patient has had a stage III pressure ulcer involving the left buttock. While in the hospital he was receiving wet to dry dressing changes with Dakin's solution. The patient was also recently noted to have a open wound along his midline incision that was draining slightly purulent fluid. Laboratory evaluation did not show any evidence for leukocytosis. The patient is unable to give any history. He usually resides at home with his mother. Meds Home Medications and Allergies Home Medications ?Medication ?Instructions ?Recorded ?Confirmed ?Type Battery Powered Lift #1 ea 03/02/18 05/28/25 Rx Power Chair #1 ea 10/16/18 05/28/25 Rx Disabled Parking #1 ea 01/15/19 05/28/25 Rx Shower Chair #1 ea 07/04/19 05/28/25 Rx ferrous sulfate 325 mg (65 mg 130 mg PO DAILY 10/29/21 05/28/25 History iron) tablet XL mattress for semi-electric #1 ea 09/27/22 05/28/25 Rx hospital bed baclofen 5 mg/5 mL oral solution 5 mg (5 mL) PO DAILY #473 mL 01/20/23 05/28/25 Rx syringe with needle 3 mL 20 gauge #1 ea 08/10/23 05/28/25 History x 1 (BD Luer-Rafael Syringe) Mattress #1 ea 03/28/24 05/28/25 Rx Semi-electric hospital bed #1 ea 03/28/24 05/28/25 Rx apixaban 5 mg tablet (Eliquis) 5 mg PO BID #60 tabs 08/15/24 05/28/25 Rx blood-glucose meter (True Metrix #1 ea 12/05/24 05/28/25 History Air Glucose Meter) glucagon 1 mg solution for 1 mg IM ONCE 12/05/24 05/28/25 History injection (Glucagon Emergency Kit) folic acid 1 mg tablet 1 mg PO DAILY #90 tabs 12/13/24 05/28/25 Rx Lingraphica Communication Device #1 ea 01/23/25 05/28/25 Rx scopolamine base 1 mg over 3 days 1 patch topical Q3D #24 ea 03/15/25 05/28/25 Rx transdermal patch sodium chloride 0.9 % for 2.5 ml inhalation Q12H PRN 03/15/25 05/28/25 Rx nebulization shortness of breath or wheezing #300 mL suction catheter kit #5 ea 03/20/25 05/28/25 Rx sertraline 100 mg tablet 200 mg (2 x 100 mg) PO DAILY #60 05/01/25 05/28/25 Rx tabs banana 1 ea PO 4XD #450 ea 05/02/25 05/28/25 Rx flakes-transgalactooligosaccharide oral powder packet (Banatrol Plus oral powder packet) midodrine 10 mg tablet 10 mg feeding tube Q8H #270 tabs 05/06/25 05/28/25 Rx hydrocortisone 10 mg tablet 10 mg PO DAILY #30 tabs 05/26/25 05/28/25 Rx hydrocortisone 10 mg tablet 10 mg PO DAILY #30 tabs 05/26/25 05/28/25 Rx (Cortef) petrolatum, white-lanolin topical ea topical PRN 05/28/25 05/28/25 History ointment (Vitamin A and D Diaper Rash topical ointment) zinc oxide-cod liver oil topical ea topical PRN 05/28/25 05/28/25 History ointment Allergies Allergy/AdvReac Type Severity Reaction Status Date / Time Penicillins (PENICILLINS) Allergy Severe RASH Verified 05/09/25 09:51 levofloxacin Allergy Intermediate Rash Verified 05/09/25 09:51 Review of Systems Review of Systems Narrative: Unable to obtain Exam Vital Signs (past 8 hours): - 05/29/25 09:00 05/29/25 09:45 05/29/25 09:47 Temperature 96.8 F L Pulse Rate 79 80 Respiratory Rate 20 21 Blood Pressure 97/68 107/74 Pulse Oximetry 98 100 Oxygen Delivery Method Room Air Trach Collar Oxygen Flow Rate 0 05/29/25 10:00 05/29/25 11:00 05/29/25 11:40 Temperature Pulse Rate 82 86 85 Respiratory Rate 21 25 H 21 Blood Pressure 103/75 117/80 Pulse Oximetry 100 100 100 Oxygen Delivery Method Trach Collar Oxygen Flow Rate 05/29/25 12:00 05/29/25 12:00 05/29/25 13:00 Temperature Pulse Rate 86 82 Respiratory Rate 21 20 Blood Pressure 103/71 99/68 Pulse Oximetry 100 100 Oxygen Delivery Method Humidification Trach Collar Oxygen Flow Rate 05/29/25 13:08 05/29/25 13:30 05/29/25 14:00 Temperature Pulse Rate 79 77 77 Respiratory Rate 19 19 20 Blood Pressure 106/68 Pulse Oximetry 100 100 100 Oxygen Delivery Method Oxygen Flow Rate 05/29/25 15:00 Temperature Pulse Rate 75 Respiratory Rate 19 Blood Pressure 103/55 L Pulse Oximetry 100 Oxygen Delivery Method Oxygen Flow Rate Oxygen Delivery Method Humidification,Trach Collar Oxygen Flow Rate 0 GI Other: Abdomen soft, nontender, nondistended. Small area of dehiscence with open wound in midline abdominal incision draining slightly purulent fluid appears to track to the fascia Skin Other: Stage III pressure ulcer left buttock near the left iliac crest. There is some necrotic tissue in the ulcer but no sign of infection. Objective Labs 05/28/25 23:00 05/29/25 10:56 Labs: Laboratory Results - last 24 hr 05/28/25 05/28/25 05/28/25 23:00 23:07 23:51 WBC 6.5 RBC 3.42 L Hgb 9.3 L Hct 27.7 L MCV 81.1 MCH 27.2 MCHC 33.6 RDW 19.3 H Plt Count 357 Neut % (Auto) 58.5 Lymph % (Auto) 22.2 L [place] % (Auto) 8.6 Eos % (Auto) 8.4 H Baso % (Auto) 2.3 H Neut # (Auto) 3800 Lymph # (Auto) 1400 [place] # (Auto) 600 Eos # (Auto) 600 H Baso # (Auto) 200 H Sodium 125 L Potassium 4.3 Chloride 91 L Carbon Dioxide 27 BUN 20 Creatinine 0.35 L Estimated GFR > 60 BUN/Creatinine Ratio 57.1 H Glucose 20 L* POC Whole Bld Glucose 113 H 59 L Lactate Calcium 7.9 L Total Bilirubin 0.2 AST 56 ALT 74 H Alkaline Phosphatase 106 Total Creatine Kinase 43 L Troponin I < 0.012 Total Protein 6.9 Albumin 3.1 L Globulin 3.8 Albumin/Globulin Ratio 0.8 L Lipase 540 H Urine Color Urine Appearance Urine pH Ur Specific [place] Urine Protein Urine Glucose (UA) Urine Ketones Urine Occult Blood Urine Nitrate Urine Bilirubin Urine Urobilinogen Ur Leukocyte Esterase Urine RBC Urine WBC Ur Squamous Epith Cells Urine Bacteria Ur Culture Indicated? Vol Urine Centrifuged SARS-CoV-2 (PCR) Influenza A (RT-PCR) Influenza B (RT-PCR) RSV (PCR) 05/28/25 05/29/25 05/29/25 23:55 00:30 00:53 WBC RBC Hgb Hct MCV MCH MCHC RDW Plt Count Neut % (Auto) Lymph % (Auto) [place] % (Auto) Eos % (Auto) Baso % (Auto) Neut # (Auto) Lymph # (Auto) [place] # (Auto) Eos # (Auto) Baso # (Auto) Sodium Potassium Chloride Carbon Dioxide BUN Creatinine Estimated GFR BUN/Creatinine Ratio Glucose POC Whole Bld Glucose 40 L* 163 H D Lactate 0.8 Calcium Total Bilirubin AST ALT Alkaline Phosphatase Total Creatine Kinase Troponin I Total Protein Albumin Globulin Albumin/Globulin Ratio Lipase Urine Color Urine Appearance Urine pH Ur Specific [place] Urine Protein Urine Glucose (UA) Urine Ketones Urine Occult Blood Urine Nitrate Urine Bilirubin Urine Urobilinogen Ur Leukocyte Esterase Urine RBC Urine WBC Ur Squamous Epith Cells Urine Bacteria Ur Culture Indicated? Vol Urine Centrifuged SARS-CoV-2 (PCR) Influenza A (RT-PCR) Influenza B (RT-PCR) RSV (PCR) 05/29/25 05/29/25 05/29/25 01:00 01:37 02:34 WBC RBC Hgb Hct MCV MCH MCHC RDW Plt Count Neut % (Auto) Lymph % (Auto) [place] % (Auto) Eos % (Auto) Baso % (Auto) Neut # (Auto) Lymph # (Auto) [place] # (Auto) Eos # (Auto) Baso # (Auto) Sodium Potassium Chloride Carbon Dioxide BUN Creatinine Estimated GFR BUN/Creatinine Ratio Glucose POC Whole Bld Glucose 92 Lactate Calcium Total Bilirubin AST ALT Alkaline Phosphatase Total Creatine Kinase Troponin I Total Protein Albumin Globulin Albumin/Globulin Ratio Lipase Urine Color Yellow Urine Appearance Clear Urine pH 7.5 Ur Specific [place] 1.010 Urine Protein Negative Urine Glucose (UA) 1+ H Urine Ketones Negative Urine Occult Blood 1+ H Urine Nitrate Negative Urine Bilirubin Negative Urine Urobilinogen 0.2 Ur Leukocyte Esterase Negative Urine RBC 0-1/hpf Urine WBC None seen Ur Squamous Epith Cells 0-1 /hpf Urine Bacteria None seen Ur Culture Indicated? Cult not indicated Vol Urine Centrifuged 10ml (spun) SARS-CoV-2 (PCR) Negative Influenza A (RT-PCR) Flu a negative Influenza B (RT-PCR) Flu b negative RSV (PCR) Negative 05/29/25 05/29/25 05/29/25 03:33 05:46 09:01 WBC RBC Hgb Hct MCV MCH MCHC RDW Plt Count Neut % (Auto) Lymph % (Auto) [place] % (Auto) Eos % (Auto) Baso % (Auto) Neut # (Auto) Lymph # (Auto) [place] # (Auto) Eos # (Auto) Baso # (Auto) Sodium Potassium Chloride Carbon Dioxide BUN Creatinine Estimated GFR BUN/Creatinine Ratio Glucose POC Whole Bld Glucose 94 87 127 H Lactate Calcium Total Bilirubin AST ALT Alkaline Phosphatase Total Creatine Kinase Troponin I Total Protein Albumin Globulin Albumin/Globulin Ratio Lipase Urine Color Urine Appearance Urine pH Ur Specific [place] Urine Protein Urine Glucose (UA) Urine Ketones Urine Occult Blood Urine Nitrate Urine Bilirubin Urine Urobilinogen Ur Leukocyte Esterase Urine RBC Urine WBC Ur Squamous Epith Cells Urine Bacteria Ur Culture Indicated? Vol Urine Centrifuged SARS-CoV-2 (PCR) Influenza A (RT-PCR) Influenza B (RT-PCR) RSV (PCR) 05/29/25 05/29/25 10:56 10:58 WBC RBC Hgb Hct MCV MCH MCHC RDW Plt Count Neut % (Auto) Lymph % (Auto) [place] % (Auto) Eos % (Auto) Baso % (Auto) Neut # (Auto) Lymph # (Auto) [place] # (Auto) Eos # (Auto) Baso # (Auto) Sodium 125 L Potassium 3.8 Chloride 96 L Carbon Dioxide 22 BUN 12 Creatinine 0.32 L Estimated GFR > 60 BUN/Creatinine Ratio 37.5 H Glucose 123 H D POC Whole Bld Glucose 125 H Lactate Calcium 7.7 L Total Bilirubin AST ALT Alkaline Phosphatase Total Creatine Kinase Troponin I Total Protein Albumin Globulin Albumin/Globulin Ratio Lipase Urine Color Urine Appearance Urine pH Ur Specific [place] Urine Protein Urine Glucose (UA) Urine Ketones Urine Occult Blood Urine Nitrate Urine Bilirubin Urine Urobilinogen Ur Leukocyte Esterase Urine RBC Urine WBC Ur Squamous Epith Cells Urine Bacteria Ur Culture Indicated? 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 Father No problems noted. Social History marital status: unmarried,single details: Lives independantly with part-time caregivers household members: family lives independently: Yes occupational status: disabled Tobacco & Substance Use Smoking Status: Former smoker alcohol intake: former substance use type: marijuana Assessment & Plan Assessment and plan (1) Pressure ulcer of left buttock, stage 3: Status: Acute (2) Unspecified open wound of abdominal wall, unspecified quadrant without penetration into peritoneal cavity, initial encounter: Status: Acute Plan Start b.i.d. dressing changes with quarter-inch iodoform gauze to the abdominal wound. Start b.i.d. wet to dry dressing changes with Dakin's solution to pressure ulcer left buttock. Continue pressure offloading and nutritional support. Follow up at wound center after discharge. Time-Based Coding :: [45 MINUTES] spent with patient and on the chart (including review of chart, obtaining history, exam, reviewing outside data, placing orders, documenting exam and treatment plan, and counseling patient) on [05/29/25].
--- NOTE | 2025-05-29 17:15 | PC.ADMIT ---
[email or web address] Admission Note: PT ARRIVED TO UNIT VIA STRETCHER AT 0815. TRANSFERRED USING SLIDER BOARD. 100% SPO2 ON ROOM AIR. TRACH COLLAR INTACT. NO S/S OF SOB NOTED. SEE CHART FOR VITALS. PATIENT ABLE TO STATE NAME AND FOLLOW SIMPLE COMMANDS/ MAKE NEEDS KNOWN. D5 NS @ 100 MLS/HR THROUGH R FA IV. L UA IV ALSO PRESENT. BLOOD SUGAR 127. MIDLINE INCISION DRESSING SOILED WITH POCKET OF RED/ MILKY APPEARING DRAINAGE. NEW AQUACEL DRESSING PLACED. PT NOTED TO HAVE L BUTTOCKS PRESSURE INJURY WELL EXCORIATION TO BOTTOM/ GROIN WITH REDNESS/ MINIMAL BLEEDING TO R BUTTOCKS. SEE CHART FOR PHOTOS TAKEN. LARGE STOOL NOTED ON ARRIVAL. LINENS CHANGED/BED BATH GIVEN. PT MADE COMFORTABLE IN BED. Q2 TURNS INITIATED. ORIENTED TO ROOM. CALL LIGHT IN REACH OF PT'S LEFT HAND. ALL QUESTIONS ANSWERED. PASSY NIR VALVE, PERSONAL ALERT BUTTON AT BEDSIDE. DR VALLADARES MADE AWARE OF PT ARRIVAL TO UNIT/ DRAINAGE TO MIDLINE INCISION. REQUESTING FURTHER ORDERS. CARE ONGOING. The patient,Jonnie Christopher,45 y/o, was given written information regarding hospital policies, unit procedures and contact persons. Patient's smoking status: Former smoker. Vital Signs - 8 hr 05/29/25 09:45 05/29/25 09:47 05/29/25 10:00 Temperature 96.8 F L Pulse Rate 80 82 Respiratory Rate 21 21 Blood Pressure 107/74 103/75 Pulse Oximetry 100 100 Oxygen Delivery Method Room Air Trach Collar Oxygen Flow Rate 0 05/29/25 11:00 05/29/25 11:40 05/29/25 12:00 Temperature Pulse Rate 86 85 86 Respiratory Rate 25 H 21 21 Blood Pressure 117/80 103/71 Pulse Oximetry 100 100 100 Oxygen Delivery Method Trach Collar Oxygen Flow Rate 05/29/25 12:00 05/29/25 13:00 05/29/25 13:08 Temperature Pulse Rate 82 79 Respiratory Rate 20 19 Blood Pressure 99/68 Pulse Oximetry 100 100 Oxygen Delivery Method Humidification Trach Collar Oxygen Flow Rate 05/29/25 13:30 05/29/25 14:00 05/29/25 15:00 Temperature Pulse Rate 77 77 75 Respiratory Rate 19 20 19 Blood Pressure 106/68 103/55 L Pulse Oximetry 100 100 100 Oxygen Delivery Method Oxygen Flow Rate 05/29/25 16:00 05/29/25 16:00 Temperature 97.6 F Pulse Rate 76 Respiratory Rate 20 Blood Pressure 93/59 L Pulse Oximetry 100 Oxygen Delivery Method Humidification Trach Collar Oxygen Flow Rate
--- NOTE | 2025-05-29 17:18 | P.HP_ITS ---
History of Present Illness History of Present Illness Date Patient Seen: 05/29/25 Chief complaint: Hypoglycemic Narrative: Chief complaint: Hypoglycemia with poor responsiveness encephalopathy History of present illness: 45-year-old male with a very prolonged hospitalization admitted 05/09 discharged on 05/26 after management of gastric perforation jejunostomy tube placement sepsis aspiration pneumonia and probable adrenal insufficiency. Florinef was discontinued but Solu-Cortef was sent to local pharmacy as well as long-term pharmacy by the discharging physician 05/28: patient's mother reports that the patient was discharged home yesterday and was noted to have altered mental status by the patient's family caregiver. EMS was called and the glucose was in the 20s. IV dextrose given and patient mentation did improve. No reported seizure activity. In the emergency room, the patient remains hemodynamically stable. The patient require D5 to maintain glucose in the 90s. Patient's labs shows a sodium 125 WBC (previously 132) 6.5 hemoglobin 9.3. Per ER physician the peak patient did have a fever. UA was negative and lactate was normal. Chest x-ray shows no signs of pneumonia. CT abdomen and pelvis with IV contrast shows loculated mild bilateral pleural effusion with left greater than right and cholelithiasis with contracted gallbladder. It is recommended that we obtain gallbladder ultrasound after [address] however did not show any acute finding regarding J-tube placement. Empiric IV ceftriaxone and IV Flagyl was given due to finding of contracted gallbladder with cholelithiasis and recent surgery. In addition the patient does take hydrocortisone at home but unclear if the patient has a known able to take it leading to possible hypoglycemia. IV hydrocortisone 100 mg bolus was ordered. Review of systems: Patient unable to participate due to cognitive patient Physical exam: Chronically ill contracted male regards with eyes Tracheostomy appears to be clear Diminished breath sounds on left which is chronically under aerated Incision appears to have a little bit of exudate but no erythema and no signs of infection Stage III pressure ultrasound boxes buttocks and chronic dermatomycosis For objective laboratory and imaging findings please see bottom of the note: Assessment and plan: Persistent hypotension, possible chronic adrenal insufficiency, started on hydrocortisone with 24 hour urinary free cortisol pending * Resume hydrocortisone * May need to also resume fludrocortisone Peg tube in false lumen, removed, Closure of gastrostomy track and placement of J-tube, active. * Appreciate surgery expertise * Tube feeding well tolerated Chronic uncuffed tracheostomy, active. * Chronic management by caregivers Pseudobulbar palsy, and spastic left hemiparesis with long-term tracheostomy and history of recurrent aspiration pneumonia. * Chronic management Pressure ulcer of left buttock, stage 3: * Start b.i.d. dressing changes with quarter-inch iodoform gauze to the abdominal wound. * Start b.i.d. wet to dry dressing changes with Dakin's solution to pressure ulcer left buttock. * Continue pressure offloading and nutritional support. * Follow up at wound center after discharge. 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 DVT prophylaxis * Covered with Eliquis Disposition: * Inpatient care * May need to clarify with mother and caregivers his medication administration schedule to see if this was potentially the etiology of the recurrent hypoglycemia and hyponatremia Time-Based Coding :: 55 min spent with patient and on the chart (including review of chart, obtaining history, exam, reviewing outside data, placing orders, documenting exam and treatment plan, and counseling patient) [facility] Medical History Excessive cerumen in both ear canals Chronic anticoagulation Iron deficiency anemia History of pulmonary embolism Status post radiation therapy Chronic anticoagulation Tracheostomy in place Sacral decubitus ulcer, stage III Protein calorie malnutrition Hyponatremia Dysphagia Recurrent aspiration pneumonia Depression, major, recurrent Jejunostomy tube present Influenza A Anemia Pneumonia 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 Father No problems noted. Social History marital status: unmarried,single details: Lives independantly with part-time caregivers household members: family lives independently: Yes occupational status: disabled alcohol intake: former substance use type: marijuana Meds Home Medications and Allergies Home Medications ?Medication ?Instructions ?Recorded ?Confirmed ?Type Battery Powered Lift #1 ea 03/02/18 05/28/25 Rx Power Chair #1 ea 10/16/18 05/28/25 Rx Disabled Parking #1 ea 01/15/19 05/28/25 Rx Shower Chair #1 ea 07/04/19 05/28/25 Rx ferrous sulfate 325 mg (65 mg 130 mg PO DAILY 10/29/21 05/28/25 History iron) tablet XL mattress for semi-electric #1 ea 09/27/22 05/28/25 Rx hospital bed baclofen 5 mg/5 mL oral solution 5 mg (5 mL) PO DAILY #473 mL 01/20/23 05/28/25 Rx syringe with needle 3 mL 20 gauge #1 ea 08/10/2305/28 History x 1 (BD Luer-Rafael Syringe) Mattress #1 ea 03/28/24 05/28/25 Rx Semi-electric hospital bed #1 ea 03/28/24 05/28/25 Rx apixaban 5 mg tablet (Eliquis) 5 mg PO BID #60 tabs 05/28/25 Rx blood-glucose meter (True Metrix #1 ea 12/05/24 History Air Glucose Meter) glucagon 1 mg solution for 1 mg IM ONCE 12/05/2405/28 History injection (Glucagon Emergency Kit) folic acid 1 mg tablet 1 mg PO DAILY #90 tabs 12/1305/28/25 Rx Lingraphica Communication Device #1 ea 01/23/25 Rx scopolamine base 1 mg over 3 days 1 patch topical Q3D #24 ea 03/15/25 05/28/25 Rx transdermal patch sodium chloride 0.9 % for 2.5 ml inhalation Q12H PRN 0 03/15/25 05/28/25 Rx nebulization shortness of breath or wheez ing #300 mL suction catheter kit #5 ea 03/20/25 05/28/25 Rx sertraline 100 mg tablet 200 mg (2 x 100 mg) PO DAILY #60 05/01/25 05/28/25 Rx tabs banana 1 ea PO 4XD #450 ea 05/02/25 05/28/25 Rx flakes-transgalactooligosaccharide oral powder packet (Banatrol Plus oral powder packet) midodrine 10 mg tablet 10 mg feeding tube Q8H #270 tabs 05/06/25 05/28/25 Rx hydrocortisone 10 mg tablet 10 mg PO DAILY #30 tabs 05/28/25 Rx hydrocortisone 10 mg tablet 10 mg PO DAILY #30 tabs 05/28/25 Rx (Cortef) petrolatum, white-lanolin topical ea topical PRN 05/2805/28/25 History ointment (Vitamin A and D Diaper Rash topical ointment) zinc oxide-cod liver oil topical ea topical PRN 05/28/25 History ointment Allergies Allergy/AdvReac Type Severity Reaction Status Date / Time Penicillins (PENICILLINS) Allergy Severe RASH Verified 05/09/25 09:51 levofloxacin Allergy Intermediate Rash Verified 05/09/25 09:51 Exam Vital Signs (past 8 hours): - 05/29/25 09:45 05/29/25 09:47 05/29/25 10:00 Temperature 96.8 F L Pulse Rate 80 82 Respiratory Rate 21 21 Blood Pressure 107/74 103/75 Pulse Oximetry 100 100 Oxygen Delivery Method Room Air Trach Collar Oxygen Flow Rate 0 05/29/25 11:00 05/29/25 11:40 05/29/25 12:00 Temperature Pulse Rate 86 85 86 Respiratory Rate 25 H 21 21 Blood Pressure 117/80 103/71 Pulse Oximetry 100 100 100 Oxygen Delivery Method Trach Collar Oxygen Flow Rate 05/29/25 12:00 05/29/25 13:00 05/29/25 13:08 Temperature Pulse Rate 82 79 Respiratory Rate 20 19 Blood Pressure 99/68 Pulse Oximetry 100 100 Oxygen Delivery Method Humidification Trach Collar Oxygen Flow Rate 05/29/25 13:30 05/29/25 14:00 05/29/25 15:00 Temperature Pulse Rate 77 77 75 Respiratory Rate 19 20 19 Blood Pressure 106/68 103/55 L Pulse Oximetry 100 100 100 Oxygen Delivery Method Oxygen Flow Rate 05/29/25 16:00 05/29/25 16:00 Temperature 97.6 F Pulse Rate 76 Respiratory Rate 20 Blood Pressure 93/59 L Pulse Oximetry 100 Oxygen Delivery Method Humidification Trach Collar Oxygen Flow Rate Oxygen Delivery Method Humidification,Trach Collar Oxygen Flow Rate 0 Objective Labs 05/28/25 23:00 05/29/25 10:56 Labs: Laboratory Results - last 24 hr 05/28/25 05/28/25 05/28/25 23:00 23:07 23:51 WBC 6.5 RBC 3.42 L Hgb 9.3 L Hct 27.7 L MCV 81.1 MCH 27.2 MCHC 33.6 RDW 19.3 H Plt Count 357 Neut % (Auto) 58.5 Lymph % (Auto) 22.2 L [place] % (Auto) 8.6 Eos % (Auto) 8.4 H Baso % (Auto) 2.3 H Neut # (Auto) 3800 Lymph # (Auto) 1400 [place] # (Auto) 600 Eos # (Auto) 600 H Baso # (Auto) 200 H Sodium 125 L Potassium 4.3 Chloride 91 L Carbon Dioxide 27 BUN 20 Creatinine 0.35 L Estimated GFR > 60 BUN/Creatinine Ratio 57.1 H Glucose 20 L* POC Whole Bld Glucose 113 H 59 L Lactate Calcium 7.9 L Total Bilirubin 0.2 AST 56 ALT 74 H Alkaline Phosphatase 106 Total Creatine Kinase 43 L Troponin I < 0.012 Total Protein 6.9 Albumin 3.1 L Globulin 3.8 Albumin/Globulin Ratio 0.8 L Lipase 540 H Urine Color Urine Appearance Urine pH Ur Specific [place] Urine Protein Urine Glucose (UA) Urine Ketones Urine Occult Blood Urine Nitrate Urine Bilirubin Urine Urobilinogen Ur Leukocyte Esterase Urine RBC Urine WBC Ur Squamous Epith Cells Urine Bacteria Ur Culture Indicated? Vol Urine Centrifuged SARS-CoV-2 (PCR) Influenza A (RT-PCR) Influenza B (RT-PCR) RSV (PCR) 05/28/25 05/29/25 05/29/25 23:55 00:30 00:53 WBC RBC Hgb Hct MCV MCH MCHC RDW Plt Count Neut % (Auto) Lymph % (Auto) [place] % (Auto) Eos % (Auto) Baso % (Auto) Neut # (Auto) Lymph # (Auto) [place] # (Auto) Eos # (Auto) Baso # (Auto) Sodium Potassium Chloride Carbon Dioxide BUN Creatinine Estimated GFR BUN/Creatinine Ratio Glucose POC Whole Bld Glucose 40 L* 163 H D Lactate 0.8 Calcium Total Bilirubin AST ALT Alkaline Phosphatase Total Creatine Kinase Troponin I Total Protein Albumin Globulin Albumin/Globulin Ratio Lipase Urine Color Urine Appearance Urine pH Ur Specific [place] Urine Protein Urine Glucose (UA) Urine Ketones Urine Occult Blood Urine Nitrate Urine Bilirubin Urine Urobilinogen Ur Leukocyte Esterase Urine RBC Urine WBC Ur Squamous Epith Cells Urine Bacteria Ur Culture Indicated? Vol Urine Centrifuged SARS-CoV-2 (PCR) Influenza A (RT-PCR) Influenza B (RT-PCR) RSV (PCR) 05/29/25 05/29/25 05/29/25 01:00 01:37 02:34 WBC RBC Hgb Hct MCV MCH MCHC RDW Plt Count Neut % (Auto) Lymph % (Auto) [place] % (Auto) Eos % (Auto) Baso % (Auto) Neut # (Auto) Lymph # (Auto) [place] # (Auto) Eos # (Auto) Baso # (Auto) Sodium Potassium Chloride Carbon Dioxide BUN Creatinine Estimated GFR BUN/Creatinine Ratio Glucose POC Whole Bld Glucose 92 Lactate Calcium Total Bilirubin AST ALT Alkaline Phosphatase Total Creatine Kinase Troponin I Total Protein Albumin Globulin Albumin/Globulin Ratio Lipase Urine Color Yellow Urine Appearance Clear Urine pH 7.5 Ur Specific [place] 1.010 Urine Protein Negative Urine Glucose (UA) 1+ H Urine Ketones Negative Urine Occult Blood 1+ H Urine Nitrate Negative Urine Bilirubin Negative Urine Urobilinogen 0.2 Ur Leukocyte Esterase Negative Urine RBC 0-1/hpf Urine WBC None seen Ur Squamous Epith Cells 0-1 /hpf Urine Bacteria None seen Ur Culture Indicated? Cult not indicated Vol Urine Centrifuged 10ml (spun) SARS-CoV-2 (PCR) Negative Influenza A (RT-PCR) Flu a negative Influenza B (RT-PCR) Flu b negative RSV (PCR) Negative 05/29/25 05/29/25 05/29/25 03:33 05:46 09:01 WBC RBC Hgb Hct MCV MCH MCHC RDW Plt Count Neut % (Auto) Lymph % (Auto) [place] % (Auto) Eos % (Auto) Baso % (Auto) Neut # (Auto) Lymph # (Auto) [place] # (Auto) Eos # (Auto) Baso # (Auto) Sodium Potassium Chloride Carbon Dioxide BUN Creatinine Estimated GFR BUN/Creatinine Ratio Glucose POC Whole Bld Glucose 94 87 127 H Lactate Calcium Total Bilirubin AST ALT Alkaline Phosphatase Total Creatine Kinase Troponin I Total Protein Albumin Globulin Albumin/Globulin Ratio Lipase Urine Color Urine Appearance Urine pH Ur Specific [place] Urine Protein Urine Glucose (UA) Urine Ketones Urine Occult Blood Urine Nitrate Urine Bilirubin Urine Urobilinogen Ur Leukocyte Esterase Urine RBC Urine WBC Ur Squamous Epith Cells Urine Bacteria Ur Culture Indicated? Vol Urine Centrifuged SARS-CoV-2 (PCR) Influenza A (RT-PCR) Influenza B (RT-PCR) RSV (PCR) 05/29/25 05/29/25 05/29/25 10:56 10:58 13:06 WBC RBC Hgb Hct MCV MCH MCHC RDW Plt Count Neut % (Auto) Lymph % (Auto) [place] % (Auto) Eos % (Auto) Baso % (Auto) Neut # (Auto) Lymph # (Auto) [place] # (Auto) Eos # (Auto) Baso # (Auto) Sodium 125 L Potassium 3.8 Chloride 96 L Carbon Dioxide 22 BUN 12 Creatinine 0.32 L Estimated GFR > 60 BUN/Creatinine Ratio 37.5 H Glucose 123 H D POC Whole Bld Glucose 125 H 133 H Lactate Calcium 7.7 L Total Bilirubin AST ALT Alkaline Phosphatase Total Creatine Kinase Troponin I Total Protein Albumin Globulin Albumin/Globulin Ratio Lipase Urine Color Urine Appearance Urine pH Ur Specific [place] Urine Protein Urine Glucose (UA) Urine Ketones Urine Occult Blood Urine Nitrate Urine Bilirubin Urine Urobilinogen Ur Leukocyte Esterase Urine RBC Urine WBC Ur Squamous Epith Cells Urine Bacteria Ur Culture Indicated? Vol Urine Centrifuged SARS-CoV-2 (PCR) Influenza A (RT-PCR) Influenza B (RT-PCR) RSV (PCR) 05/29/25 15:03 WBC RBC Hgb Hct MCV MCH MCHC RDW Plt Count Neut % (Auto) Lymph % (Auto) [place] % (Auto) Eos % (Auto) Baso % (Auto) Neut # (Auto) Lymph # (Auto) [place] # (Auto) Eos # (Auto) Baso # (Auto) Sodium Potassium Chloride Carbon Dioxide BUN Creatinine Estimated GFR BUN/Creatinine Ratio Glucose POC Whole Bld Glucose 146 H Lactate Calcium Total Bilirubin AST ALT Alkaline Phosphatase Total Creatine Kinase Troponin I Total Protein Albumin Globulin Albumin/Globulin Ratio Lipase Urine Color Urine Appearance Urine pH Ur Specific [place] Urine Protein Urine Glucose (UA) Urine Ketones Urine Occult Blood Urine Nitrate Urine Bilirubin Urine Urobilinogen Ur Leukocyte Esterase Urine RBC Urine WBC Ur Squamous Epith Cells Urine Bacteria Ur Culture Indicated? Vol Urine Centrifuged SARS-CoV-2 (PCR) Influenza A (RT-PCR) Influenza B (RT-PCR) RSV (PCR) Assessment & Plan Time-Based Coding :: [TOTAL MINUTES] spent with patient and on the chart (including review of chart, obtaining history, exam, reviewing outside data, placing orders, documenting exam and treatment plan, and counseling patient) on [DATE].
--- NOTE | 2025-05-29 18:21 | PC.NURSE ---
PT REMAINED ALERT AND ORIENTED/ ABLE TO MAKE NEEDS KNOWN. 100% SPO2 WITH TRACH COLLAR AT 28% HUMIDIFIED O2. RT PERFORMED TRACH CARE/ CHANGEED TRACH TIES. SUCTIONING NEEDED. TOLERATING TUBE FEEDS. INCREASED TO 30 MLS/HR PER ORDER. SNEDECKER ROUNDED ON PATIENT AND OK WITH CHANGING FINGER STICKS TO Q6H. PHARMACY DISCUSSED IVF WITH MD. NO CHANGE TO ORDERS AT THIS TIME. PENDING C PEPTIDE/ INSULIN LABS. DR GONZALEZ ROUNDED ON PATIENT. WOUND CARE ORDERS PLACED. STRICT Q2 TURNS/ ORAL CARE PERFORMED. BMS X2. CARE ONGOING.
[2025-05-29 18:46] LABS: MRSA (Nasal) PCR DETECTED (Not Detect)
[2025-05-29] MEDS: ACETAMINOPHEN 325 MG TABLET 650 MG PO (22:43)
[2025-05-29] MEDS: SODIUM HYPOCHLORITE 473 ML SOLUTION TOP (22:45)
[2025-05-30] VITALS (32 sets, daily range): BP systolic 74–123; BP diastolic 42–77; PULSE 61–81; RESP 18–21; TEMP 35.9–36.4; O2SAT 99–100
[2025-05-30] MEDS: DEXTROSE 5%-0.9% NS 1,000 ML 100 ML IV ×2 (01:29→11:36)
[2025-05-30] MEDS: SODIUM CHLORIDE 0.9% 500 ML 250 ML IV (02:19)
[2025-05-30] MEDS: cefTRIAXone 2,000 MG in SODIUM CHLORIDE 0.9% 100 ML 200 MG IV (03:30)
[2025-05-30] MEDS: MIDODRINE HCL 5 MG TABLET 10 MG TUBE ×3 (03:30→21:06)
[2025-05-30] MEDS: metroNIDAZOLE 500 MG/100 ML PIGGYBACK 100 MG IV ×4 (03:31→21:27)
[2025-05-30] MEDS: NOREPINEPHRINE BITARTRATE/D5W 4 MG/250 ML PLAST..BAG 25.875 MG IV ×2 (04:18→13:14)
[2025-05-30 07:10] LABS: Insulin Level Total 1.3 uIU/mL (2.6-24.9)
[2025-05-30 07:27] LABS: Hemoglobin 9.1 g/dL (13.5-17.5)
[2025-05-30 07:32] LABS: Add Manual Diff / Slide Review NO; Hematocrit 27.6 % (41-53); Lymphocytes Absolute Auto 1400 /uL (1100-4500); Mean Corpuscular HGB Conc 33.1 % (30-36); Mean Corpuscular Hemoglobin 27.2 PG (26-34); Mean Corpuscular Volume 82.2 fL (80-100); Platelet Count 424 X10^3/uL (150-400)
[2025-05-30 07:39] LABS: Alanine Aminotransferase 41 IU/L (<50); Albumin 2.6 g/dL (3.5-5.0); Albumin Globulin Ratio 0.8 (1.0-2.8); Alkaline Phosphatase 83 U/L (38-126); Blood Urea Nitrogen 7 mg/dL (9-20); Calcium 7.7 mg/dL (8.4-10.2); Carbon Dioxide 25 mmol/L (22-32); Chloride 104 mmol/L (98-107); Estimated Glomerular Filt Rate > 60 mL/min (>60); Globulin 3.3 g/dL (1.7-4.1); Glucose 101 mg/dL (70-99); HEMOLYSIS < 15 (0-50); Potassium 3.6 mmol/L (3.4-5.1); Sodium 135 mmol/L (137-145); Total Protein 5.9 g/dL (6.3-8.2)
--- NOTE | 2025-05-30 08:12 | P.PN_ITS ---
Subjective Subjective Date Patient Seen: 05/30/25 Interval history: Chief complaint: Hypoglycemia with poor responsiveness encephalopathy History of present illness: 45-year-old male with a very prolonged hospitalization admitted 05/09 discharged on 05/26 after management of gastric perforation jejunostomy tube placement sepsis aspiration pneumonia and probable adrenal insufficiency. Florinef was discontinued but Solu-Cortef was sent to local pharmacy as well as long-term pharmacy by the discharging physician 05/28: patient's mother reports that the patient was discharged home yesterday and was noted to have altered mental status by the patient's family caregiver. EMS was called and the glucose was in the 20s. IV dextrose given and patient mentation did improve. No reported seizure activity. In the emergency room, the patient remains hemodynamically stable. The patient require D5 to maintain glucose in the 90s. Patient's labs shows a sodium 125 WBC (previously 132) 6.5 hemoglobin 9.3. Per ER physician the peak patient did have a fever. UA was negative and lactate was normal. Chest x-ray shows no signs of pneumonia. CT abdomen and pelvis with IV contrast shows loculated mild bilateral pleural effusion with left greater than right and cholelithiasis with contracted gallbladder. It is recommended that we obtain gallbladder ultrasound after [address] however did not show any acute finding regarding J-tube placement. Empiric IV ceftriaxone and IV Flagyl was given due to finding of contracted gallbladder with cholelithiasis and recent surgery. In addition the patient does take hydrocortisone at home but unclear if the patient has a known able to take it leading to possible hypoglycemia. IV hydrocortisone 100 mg bolus was ordered. Hospital course: 05/29: Patient became hypotensive overnight norepinephrine initiated patient minimally responsive today sodium corrected to 135 from 125 WBC 14.5 hemoglobin 9.1 Review of systems: Patient unable to participate due to cognitive patient Physical exam: Chronically ill contracted male regards with eyes Tracheostomy appears to be clear Diminished breath sounds on left which is chronically under aerated Incision appears to have a little bit of exudate but no erythema and no signs of infection Stage III pressure ultrasound boxes buttocks and chronic dermatomycosis For objective laboratory and imaging findings please see bottom of the note: Assessment and plan: Chronic continuous aspiration into left lung * Strict NPO * All feedings and medications per PEG * Scopolamine patch * Oral care plan Persistent hypotension, possible chronic adrenal insufficiency, started on hydrocortisone with 24 hour urinary free cortisol pending * Resume hydrocortisone * May need to also resume fludrocortisone Peg tube in false lumen, removed, Closure of gastrostomy track and placement of J-tube, active. * Appreciate surgery expertise * Tube feeding well tolerated Chronic uncuffed tracheostomy, active. * Chronic management by caregivers Pseudobulbar palsy, and spastic left hemiparesis with long-term tracheostomy and history of recurrent aspiration pneumonia. * Chronic management * Pressure ulcer of left buttock, stage 3: * Start b.i.d. dressing changes with quarter-inch iodoform gauze to the abdominal wound. * Start b.i.d. wet to dry dressing changes with Dakin's solution to pressure ulcer left buttock. * Continue pressure offloading and nutritional support. * Follow up at wound center after discharge. 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 DVT prophylaxis * Covered with Eliquis Disposition: * Inpatient care * May need to clarify with mother and caregivers his medication administration schedule to see if this was potentially the etiology of the recurrent hypoglycemia and hyponatremia * Patient has progressive neurologic degenerative condition does not appear manageable at home * Chronic hospitalization per LTAC * Responsible family member noncompliant endangering patient Time-Based Coding :: 55 min spent with patient and on the chart (including review of chart, obtaining history, exam, reviewing outside data, placing orders, documenting exam and treatment plan, and counseling patient) Exam Vital Signs (past 8 hours): - 05/30/25 03:00 05/30/25 03:00 05/30/25 03:23 Pulse Rate 75 Respiratory Rate 19 Blood Pressure 79/43 L 77/43 L Pulse Oximetry 100 Oxygen Delivery Method 05/30/25 03:23 05/30/25 03:30 05/30/25 04:00 Pulse Rate 74 75 75 Respiratory Rate 18 18 21 Blood Pressure Pulse Oximetry 100 100 100 Oxygen Delivery Method 05/30/25 04:00 05/30/25 04:00 05/30/25 04:30 Pulse Rate 66 Respiratory Rate 19 Blood Pressure 74/42 L Pulse Oximetry 100 Oxygen Delivery Method Humidification Trach Collar 05/30/25 04:30 05/30/25 04:35 05/30/25 04:35 Pulse Rate 68 Respiratory Rate 20 Blood Pressure 96/54 L 98/59 L Pulse Oximetry 100 Oxygen Delivery Method 05/30/25 04:45 05/30/25 04:45 05/30/25 05:00 Pulse Rate 70 72 Respiratory Rate 19 19 Blood Pressure 97/62 Pulse Oximetry 100 100 Oxygen Delivery Method 05/30/25 05:00 05/30/25 05:15 05/30/25 05:15 Pulse Rate 73 Respiratory Rate 20 Blood Pressure 98/62 94/58 L Pulse Oximetry 100 Oxygen Delivery Method 05/30/25 05:30 05/30/25 05:30 05/30/25 05:45 Pulse Rate 73 73 Respiratory Rate 19 19 Blood Pressure 94/58 L Pulse Oximetry 100 100 Oxygen Delivery Method 05/30/25 05:45 05/30/25 06:00 05/30/25 06:00 Pulse Rate 74 Respiratory Rate 21 Blood Pressure 94/56 L 91/55 L Pulse Oximetry 100 Oxygen Delivery Method 05/30/25 06:15 05/30/25 06:15 Pulse Rate 72 Respiratory Rate 18 Blood Pressure 91/54 L Pulse Oximetry 100 Oxygen Delivery Method Fraction of Inspired Oxygen 28 SaO2/FiO2 Ratio 357 Oxygen Delivery Method Humidification,Trach Collar Oxygen Flow Rate 0 Objective Labs 05/30/25 07:15 05/30/25 07:15 Labs: Laboratory Results - last 24 hr 05/28/25 05/29/25 05/29/25 23:00 09:01 09:05 WBC RBC Hgb Hct MCV MCH MCHC RDW Plt Count Neut % (Auto) Lymph % (Auto) Cameron % (Auto) Eos % (Auto) Baso % (Auto) Neut # (Auto) Lymph # (Auto) Cameron # (Auto) Eos # (Auto) Baso # (Auto) Sodium Potassium Chloride Carbon Dioxide BUN Creatinine Estimated GFR BUN/Creatinine Ratio Glucose POC Whole Bld Glucose 127 H Total Insulin 1.3 L C-Peptide 1.9 Calcium Total Bilirubin AST ALT Alkaline Phosphatase Total Protein Albumin Globulin Albumin/Globulin Ratio Nasal Screen MRSA (PCR) Detected H 05/29/25 05/29/25 05/29/25 10:56 10:58 13:06 WBC RBC Hgb Hct MCV MCH MCHC RDW Plt Count Neut % (Auto) Lymph % (Auto) Cameron % (Auto) Eos % (Auto) Baso % (Auto) Neut # (Auto) Lymph # (Auto) Cameron # (Auto) Eos # (Auto) Baso # (Auto) Sodium 125 L Potassium 3.8 Chloride 96 L Carbon Dioxide 22 BUN 12 Creatinine 0.32 L Estimated GFR > 60 BUN/Creatinine Ratio 37.5 H Glucose 123 H D POC Whole Bld Glucose 125 H 133 H Total Insulin C-Peptide Calcium 7.7 L Total Bilirubin AST ALT Alkaline Phosphatase Total Protein Albumin Globulin Albumin/Globulin Ratio Nasal Screen MRSA (PCR) 05/29/25 05/29/25 05/30/25 15:03 21:29 06:10 WBC RBC Hgb Hct MCV MCH MCHC RDW Plt Count Neut % (Auto) Lymph % (Auto) Cameron % (Auto) Eos % (Auto) Baso % (Auto) Neut # (Auto) Lymph # (Auto) Cameron # (Auto) Eos # (Auto) Baso # (Auto) Sodium Potassium Chloride Carbon Dioxide BUN Creatinine Estimated GFR BUN/Creatinine Ratio Glucose POC Whole Bld Glucose 146 H 113 H 109 H Total Insulin C-Peptide Calcium Total Bilirubin AST ALT Alkaline Phosphatase Total Protein Albumin Globulin Albumin/Globulin Ratio Nasal Screen MRSA (PCR) 05/30/25 07:15 WBC 14.5 H D RBC 3.36 L Hgb 9.1 L Hct 27.6 L MCV 82.2 MCH 27.2 MCHC 33.1 RDW 19.5 H Plt Count 424 H Neut % (Auto) 85.9 H D Lymph % (Auto) 9.5 L Cameron % (Auto) 1.5 L Eos % (Auto) 3.1 Baso % (Auto) 0.0 Neut # (Auto) 90188 H Lymph # (Auto) 1400 Cameron # (Auto) 200 Eos # (Auto) 400 Baso # (Auto) 0 Sodium 135 L D Potassium 3.6 Chloride 104 Carbon Dioxide 25 BUN 7 L Creatinine 0.36 L Estimated GFR > 60 BUN/Creatinine Ratio 19.4 Glucose 101 H POC Whole Bld Glucose Total Insulin C-Peptide Calcium 7.7 L Total Bilirubin < 0.1 L AST 26 ALT 41 Alkaline Phosphatase 83 Total Protein 5.9 L Albumin 2.6 L Globulin 3.3 Albumin/Globulin Ratio 0.8 L Nasal Screen MRSA (PCR) [facility] Medical History Excessive cerumen in both ear canals Chronic anticoagulation Iron deficiency anemia History of pulmonary embolism Status post radiation therapy Chronic anticoagulation Tracheostomy in place Sacral decubitus ulcer, stage III Protein calorie malnutrition Hyponatremia Dysphagia Recurrent aspiration pneumonia Depression, major, recurrent Jejunostomy tube present Influenza A Anemia Pneumonia 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 Father No problems noted. Social History marital status: unmarried,single details: Lives independantly with part-time caregivers household members: family lives independently: Yes occupational status: disabled alcohol intake: former substance use type: marijuana Assessment & Plan Time-Based Coding :: [TOTAL MINUTES] spent with patient and on the chart (including review of chart, obtaining history, exam, reviewing outside data, placing orders, documenting exam and treatment plan, and counseling patient) on [DATE].
[2025-05-30] MEDS: BACLOFEN 10 MG TABLET 5 MG PO (08:29)
[2025-05-30] MEDS: APIXABAN 5 MG TABLET PO ×2 (08:29→21:06)
[2025-05-30] MEDS: FERROUS SULFATE 325 MG TABLET PO (08:29)
[2025-05-30] MEDS: SERTRALINE 50 MG TABLET 200 MG PO (08:29)
[2025-05-30] MEDS: FOLIC ACID 1 MG TABLET PO (08:29)
[2025-05-30] MEDS: HYDROCORTISONE 10 MG TABLET 20 MG PO ×2 (08:30→21:06)
[2025-05-30] MEDS: FLUDROCORTISONE 0.1 MG TABLET PO (08:30)
[2025-05-30] MEDS: SODIUM HYPOCHLORITE 473 ML SOLUTION TOP ×2 (08:31→21:06)
--- NOTE | 2025-05-30 09:10 | DI.RAD.S_ITS ---
PROCEDURE: XR CHEST FOR PICC 1V INDICATIONS: PICC PLACEMENT COMPARISON: [facility], CR, XR CHEST 1V, 11/21/2024, 17:53. [facility], CR, XR CHEST 1V, 05/28/2025, 23:14. [facility], CR, XR CHEST 1V, 05/21/2025, 7:39. FINDINGS: PICC was placed by the intravenous therapy team from the right side. Fluoroscopic spot film demonstrates the tip of PICC projecting to the area of mid to distal SVC. Note is made of volume loss on the left with mediastinal shift from right to left as has been previously the case and most prominent recently. Tracheostomy tube remains in normal position. IMPRESSION: Tip of PICC projects to the area of mid to distal SVC. Dictated by: Gordo Neves M.D. on 05/30/2025 at 9:54 Approved by: Gordo Neves M.D. on 05/30/2025 at 9:55
[2025-05-30] MEDS: [UNRECOGNIZED DRUG - OTHER] 1 EACH TUBE ×4 (11:00→22:07)
[2025-05-30] MEDS: DEXTROSE 5% WATER 1,000 ML 25 ML TUBE (11:47)
--- NOTE | 2025-05-30 12:26 | DIET.CONS ---
Dietary Consultation Note Admission Date: 05/29/2025 04:33 Assessment: f/u Per hospitalist, pt needs an increase in dextrose daily. Recommended meeting dextrose needs via IV. However, to set pt up for discharge, hospitalist would like to provide dextrose through j-tube. D/t start of pressor, Jevity 1.2 needed to be reduced to rate of 45 mL/hr r/t fiber content. Adjusted protein packets to meet protein needs and pt still getting IV dextrose, 100 mL/hr providing 120 g dextrose daily. Tube feed order adjusted below per formula available at this hospital and the hospitalist's order to flush D5 via the J-tube. Luis Manuel is not recommended to be put through a j-tube per the company's reccs. Per BUSINESS SUPPORT PROFESSIONAL, pt may have been getting bolus of feeds over continuous feeds when he d/c home. Ht: 174.73 cm Wt: 70.5 kg BMI: 22.6 UBW: 160 lb Last BM: 05/29/25 (05/29/25 13:40) MNA: 5 Krishan Score: 9 Diet: 05/29/25 03:51 NPO Diet Diet Modifications: NPO Type: NPO except for Meds 05/30/25 Lunch Tube Feeding Diet Diet Modifications: ProSource Protein Packets 5x/d per pharmacy order TF Supplement type: Jevity 1.2 saurav TF mode of delivery: Continuous Starting flow rate mL/hr: 45 Flow rate goal mL/hr: 45 Titration Schedule to reach Goal Rate: - Max total daily volume in mL: 1,800 Free fluid: 100 Free Water Frequency: Q4H Comment: *100 mL flush of D5 instead of free water per pharmacy order. This provides 5 g dextrose Q4H Nutrition Percent Meal Consumed 0% 05/29/25 18:00 Type of Feeding Tube Jejunostomy 05/29/25 17:00 Type of Feeding Tube Jejunostomy 05/29/25 13:00 Labs: RBC 3.36 X10^6/uL (4.5-5.9) L 05/30/25 07:15 Hgb 9.1 g/dL (13.5-17.5) L 05/30/25 07:15 Hct 27.6 % (41-53) L 05/30/25 07:15 Creatinine 0.36 mg/dL (0.66-1.25) L 05/30/25 07:15 Lactate 0.8 mmol/L (0.7-2.1) 05/28/25 23:55 Nutrition Diagnosis: -Altered GI function r/t changes in GI tract motility as evidenced by copious loose stool, inadequate soluble fiber -Increased nutrient needs (protein) r/t healing needs as evidenced by skin breakdown and wounds -Severe chronic Protein Calorie Malnutrition r/t altered GI tract motility and increased needs (protein) as evidenced by severe muscle wasting in temples and deltoid, severe buccal and orbital subcutaneous fat loss, <60% of estimated protein needs due to malabsorption and wound healing needs for >1 month Interventions: 1. Consider transfer to higher level of care for more tube feed formula options to meet pt's needs. This facility is currently out of Pivot 1.5 enteral feeds. 2. Adjusted order to Jevity 1.2 at 45 mL/hr. Remaining calorie needs provided via IV D5 running at 100 mL/hr and the 5 ProSource Protein packets. Thus pt currently gettin kcals (100% of needs) and 115 g protein (100% of needs) 3. Communicated with hospitalist that enteral feeds plus flushes are providing 1500 mL fluids daily. EER: 1900 kcals (27 kcals/kg per BMI) 100-115 g protein (1.5-1.7 g/kg per wound and PCM), 2400 mL (35 mL/kg) Monitoring/Evaluations: following daily Electronically Signed by: Flakita Hopkins 05/30/25 12:26 Clinical Dietitian [address] [address]
--- NOTE | 2025-05-30 12:43 | CM.DANOTE ---
Patient is a 45-year-old male who was Re-admitted INPT Status on 05/29/25 with Cerebral Palsy at baseline and a very prolonged hospitalization admitted 05/09 discharged on 05/26 after management of gastric perforation jejunostomy tube placement sepsis aspiration pneumonia and probable adrenal insufficiency. Pt admitted now with hypoglycemia and encephalopathy. After further imaging, pt with bilat PE likely from chronic aspiration and cholelithiasis and to have ultrasound and on IV-Abx. PCP: Dr. Chucky Marshall INS: Medicare and Medicaid ROBIN called [facility] and confirmed pt was scheduled for outpt wound care today 05/30/25 for follow up from his recent discharge from the hospital.? Mother had updated [facility] that pt was admitted.? They will continue to follow. Confirmed that pt is open with [facility] and they were set to be in the home yesterday 05/29/25 but pt admitted and faxed clinicals to review and alerted them to need for RN for wound care and ongoing ST.? Keep [facility] updated on timeline for discharge and if home or facility. ROBIN called [facility] at [phone] and updated her on pt?s Re-admission and she confirmed that pt has 3 rotating [facility] CGs with 393 hours a month and lives independently in an apt in [place] and mother lives just down the road and is his emergency contact and person to show up if needed but not his [facility] CG as mother works a job herself. Pt has a new CG and they are aware of his high care needs and now pressure wounds and requesting HH RN for increased wound care with [facility]. Thea confirms that pt has a w/c van at home and CGs are approved to transport pt to appointments and outside the home in case outpt Wound Clinic needed at d/c. Thea states that pt typically declines leaving his place as he gets easily over stimulated by crowds and noise but CGs attempt to get him out of the house for short excursions and quality of life. [facility] PERAZA Thea has known pt for 10 yrs and confirms in the last 6 mo-1 year pt has had significant decline in his health and abilities, mostly due to the progression of his disease. [facility] beginning to question whether patient can safely be managed at home and borderline need for placement.? Pt maxed on hours for in-home CGs and cannot be approved for 24/7 in the home.? Thea declines the need for any faxed clinicals at this time. ROBIN called pt's enteral feeding company [facility] at [phone] and spoke to Coordinator Inna and her direct line is ([phone]) and confirmed their fax of [phone].? [facility] was not aware of the recommendation of continuous feeds and need for pump and therefore this was not delivered to the home.? Inna states they need a signed note from MD with recommendation for pump and recent chart notes.? ROBIN faxed Black Puller note from pt?s recent discharge along with Dr. Marshall?s prog note with tube feeding recommendations and faxed to [facility].? They will need to be updated on pt?s timeline for discharge so they can deliver the pump. Called Mom Marianela and she confirms that she stayed with pt overnight at discharge and was the one home and noticed pt?s change in behavior and checked his vitals, O2 levels, and temperature and all normal and did not think to check his blood sugars as pt does not have DM. Mom called EMS.? Mom states she was not fully aware of the need for continuous feeds with pump and therefore was doing pt?s enteral feeds as bolus as he previously was fed.? Discussed [facility] again and mom states ?nothing is off the table as an option at this time? and discussed the benefits for better healing and management at LTAC before home to increase his chances of improvement.? 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 Mom leaning towards attempting home again if continuous feeding pump provided to see if pt manages better at home before trying [facility]. Inquired about LTC plan for pt once he is unable to be managed at home and mom stated her realistic concerns of the lack of care within facilities as well as they are short staffed and not able to provide full 24/7 care as mom has worked inside of many facilities for her own work. Mom appears to have pt?s best interests at heart and attempting to meet his Goals of Care of remaining in the home and does not appear to have purposeful neglect of patient but may have some unrealistic expectations of pt?s current abilities and care needs based on how pt was functioning last year not his current deconditioned self. Mother's POA cannot be revoked without involvement with APS and court involvement for legal authority to determine mother's decision making capability. Very lengthy process. Plan: SW to follow closely for pt's ongoing care needs to determine if another attempt for home with new Continuous Feeding Pump to be delivered can assist with pt being better managed at home vs [facility] referral. Will need to keep [facility], [facility], [facility], and [facility] updated. [facility] Discharge Planning/Care Management CM Discharge Assessment Start: 05/29/25 05:35 Freq: Status: Active Protocol: Document 05/30/25 12:37 BF (Rec: 05/30/25 12:43 BF [id number]) Discharge Planning Assessment Assigned Discharge [facility] [employer] Processing Technician Provider Dr. Chucky Marshall Insurance Medicaid,Medicare DPOA/Assigned mother Marianela Paulino Designee Name Contact Information [phone] Advance Directives? Yes: DPOA Advance Directives No on File History Provided By Parents,Medical Record Has Patient been Yes admitted in last 30 days? Comment Recently discharged on 05/26/25 to home with [facility], [facility] CG, and ongoing enteral feedings with [facility] Prior Living Apartment/Condo Arrangements Household Members caregiver Comment 3 [facility] CG that rotate, mom at night and emergencies Type of Relies on Others transporation used prior to admit Independent with ADL No 's Is patient alert and Yes: somewhat, currently with encephalopathy oriented? Needs Assistance Bathing,Eating,Grooming,Meal Prep,Toileting,Managing With Medications,Home Chores / Shopping Caregiver for No Another Community Services Home Health Nurse,Speech Language Pathology used prior to admission: Comment Open with [facility] DME Already Rented / Hospital Bed,Wheelchair Owned Comment Patient is mostly bedbound/wheelchair bound at baseline with neurological issues from Cerebral Palsy. Has home ashley lift Patient/Family Home with Home Health Preference Barriers to Yes Discharge Comment Failed recent discharge home Discharge Plan Home with Home Health Community Services Home Health Nurse,Speech Language Pathology Transportation Pending d/c plan of home vs LTAC Arrangement Referrals Initiated Home Health,[facility] Whiteboard Updated Yes in Patient Room with name and ext. # of Clinical Nursing Coordinator Review Status In Process Please Provide Date 05/30/25 Initial DC Assessment Was Performed Next Review Type Continued Stay Review
--- NOTE | 2025-05-30 14:50 | PC.NURSE ---
Dayshift note: Dilt gtt off at 11 am after bridging with oral dilt. Pt is very insistent that he wants to go home, but will stay until after the second part of the stress test to be performed tomorrow 05/31/25. Pt states he wants to be discharged right after the second part of the stress test. Pt also states that he does not want to eat anything while he is here in the hospital. Dr Russell updated on pt statement, No further pt needs at this time, call light within reach, care ongoing
[2025-05-31] VITALS (54 sets, daily range): BP systolic 84–122; BP diastolic 50–76; PULSE 66–97; RESP 16–24; TEMP 35.9–36.8; O2SAT 90–100
[2025-05-31] MEDS: DEXTROSE 5%-0.9% NS 1,000 ML 100 ML IV ×2 (00:05→10:07)
[2025-05-31] MEDS: NOREPINEPHRINE BITARTRATE/D5W 4 MG/250 ML PLAST..BAG 15.525 MG IV (03:51)
[2025-05-31] MEDS: cefTRIAXone 2,000 MG in SODIUM CHLORIDE 0.9% 100 ML 200 MG IV (03:51)
[2025-05-31] MEDS: MIDODRINE HCL 5 MG TABLET 10 MG TUBE ×3 (03:52→19:49)
[2025-05-31] MEDS: metroNIDAZOLE 500 MG/100 ML PIGGYBACK 100 MG IV ×4 (03:55→21:51)
[2025-05-31] MEDS: [UNRECOGNIZED DRUG - OTHER] 1 EACH TUBE ×5 (07:12→22:00)
--- NOTE | 2025-05-31 08:18 | P.PN_ITS ---
Subjective Subjective Date Patient Seen: 05/31/25 Interval history: Discussed in multidisciplinary rounds this morning: Facing multiple challenges in the management of this patient. There was Consensus discussion between host, pharmacist, myself on meeting volume and glycemic needs in this patient. * One option was to supplement with intravenous D10; the advantages that is reliable while in the hospital; the disadvantage is that we will be switching from parenteral to enteral glycemic support at the time of discharge * Other option was to and dextrose to water to make 100 mL of a 5% dextrose solution in the flushes that are given 5 times a day * Another option is to obtain from the patient's mother the enteral feeding with a higher carbohydrate content to infuse while in the hospital * The J-tube we will not be workable with bolus feedings but we will need continuous feedings with pump. The pump will need to be delivered to the bedside prior to discharge * Total volume per J-tube we will be 1500 cc and 25 g of additional carbohydrate over 24 hour period * Maintenance of 20 mg of oral hydrocortisone for presumed adrenal insufficiency which may have been the result of ischemia to the adrenal glands during previous septic hypovolemic episode (24 hour cortisol is pending) * The upshot of the consensus discussion was to go with the 2nd option flushing with 5% dextrose solution 100 mL 5 times a day while continuing the D5 normal saline intravenously to observe whether we meeting patient's glycemic needs and then slowly withdrawal the IV support and observe to see if the enteral support our meeting the glycemic and volume needs 1. Current enteral recc is as follows: Continuous Jevity 1.2 at 45 mL/hr with 1 ProSource Protein Packet 5 times per day. Flush 100 mL free water Q4H. Provide 100 g dextrose daily through IV D10 1 L per day. -This meets 1896 kcals (100% kcal needs), 115 g protein (100% of needs), 2770 mL fluids 2. When patient is off pressors: Advance to Continuous Jevity 1.2 at 60 mL/hr with 1 ProSource Protein Packet TID. Flush 150 mL free water Q4H. Dependent on blood glucose and dextrose needs, D10 can be d/c per hospitalist. -This meets 1848 kcals (97% kcal needs), 113 g protein (100% needs), 2242 mL fluids Subjective Subjective Date Patient Seen: 05/30/25 Interval history: Chief complaint: Hypoglycemia with poor responsiveness encephalopathy History of present illness: 45-year-old male with a very prolonged hospitalization admitted 05/09 discharged on 05/26 after management of gastric perforation jejunostomy tube placement sepsis aspiration pneumonia and probable adrenal insufficiency. Florinef was discontinued but Solu-Cortef was sent to local pharmacy as well as long-term pharmacy by the discharging physician 05/28: patient's mother reports that the patient was discharged home yesterday and was noted to have altered mental status by the patient's family caregiver. EMS was called and the glucose was in the 20s. IV dextrose given and patient mentation did improve. No reported seizure activity. In the emergency room, the patient remains hemodynamically stable. The patient require D5 to maintain glucose in the 90s. Patient's labs shows a sodium 125 WBC (previously 132) 6.5 hemoglobin 9.3. Per ER physician the peak patient did have a fever. UA was negative and lactate was normal. Chest x-ray shows no signs of pneumonia. CT abdomen and pelvis with IV contrast shows loculated mild bilateral pleural effusion with left greater than right and cholelithiasis with contracted gallbladder. It is recommended that we obtain gallbladder ultrasound after [address] however did not show any acute finding regarding J-tube placement. Empiric IV ceftriaxone and IV Flagyl was given due to finding of contracted gallbladder with cholelithiasis and recent surgery. In addition the patient does take hydrocortisone at home but unclear if the patient has a known able to take it leading to possible hypoglycemia. IV hydrocortisone 100 mg bolus was ordered. Hospital course: 05/29: Patient became hypotensive overnight norepinephrine initiated patient minimally responsive today sodium corrected to 135 from 125 WBC 14.5 hemoglobin 9.1 05/31: Patient is definitely more interactive, moving all his limbs, complaining to the nurses of back pain, etc. compared to when I saw him during his last postop stay. The blood sugars range from 91 up to 145. This is being supported by an IV dextrose infusion. Extensive discussion today regarding dietary/J-tube feeding rates, glucose support, steroid support with planner scheduler and dietitian. His mother says that he has caregivers support during the day and that she stays with him at night. She declines long-term acute care or chcf facility, which would definitely be safer in this very complicated patient. Currently Jevity is at 45 per hour pending the Levophed being stopped due to concerns of mesenteric ischemia if the rate is increased while on that. The white count yesterday was 14.5 with a hemoglobin of 9.1. The BNP was normal. His skin breakdown on the buttocks is certainly impressive on the pictures reviewed today. He also has a Jones catheter now. Levophed drip to support systolics above 80 continues. Also on midodrine. Review of systems: Patient unable to participate due to tracheostomy. Physical exam: Chronically ill contracted male regards with eyes moving all extremities and pointing with his left hand. Tracheostomy appears to be clear Diminished breath sounds on left which is chronically under aerated. Clear to auscultation bilaterally. Heart is regular rate and rhythm without murmur. Central point of abdominal Incision appears to have a little bit of exudate but no erythema and no signs of infection Stage III pressure ultrasound boxes buttocks and chronic dermatomycosis No ankle edema For objective laboratory and imaging findings please see bottom of the note: Assessment and plan: Chronic continuous aspiration into left lung * Strict NPO * All feedings and medications per J-tube goal of 60/h, currently on 45/h. * Scopolamine patch * Oral care plan Persistent hypotension, possible chronic adrenal insufficiency, started on hydrocortisone with 24 hour urinary free cortisol pending * Resumed 20 mg BID hydrocortisone * Resumed fludrocortisone Chronic Anemia * Hgb 9.1 on 05/30 Peg tube in false lumen, removed, Closure of gastrostomy track and placement of J-tube, active. * Appreciate surgery expertise * Tube feeding well tolerated Chronic uncuffed tracheostomy, active. * Chronic management by caregivers Pseudobulbar palsy, and spastic left hemiparesis with long-term tracheostomy and history of recurrent aspiration pneumonia. * Chronic management * Pressure ulcer of left buttock, stage 3: * b.i.d. dressing changes with quarter-inch iodoform gauze to the abdominal wound. * b.i.d. wet to dry dressing changes with Dakin's solution to pressure ulcer left buttock. * Continue pressure offloading and nutritional support. * Follow up at wound center after discharge. 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 data recovery planner and dietitian currently working on confirming tube feeding, pump, caregiving, 24 hour assistance from family at home. * Responsible family member noncompliant endangering patient Exam Vital Signs (past 8 hours): - 05/31/25 01:00 05/31/25 02:00 05/31/25 03:00 Temperature 96.7 F L Pulse Rate 80 79 79 Respiratory Rate 22 21 24 Blood Pressure 106/67 105/65 106/69 Pulse Oximetry 90 L 100 100 Oxygen Delivery Method Fraction of Inspired Oxygen 28 05/31/25 04:00 05/31/25 04:00 05/31/25 05:00 Temperature Pulse Rate 76 76 Respiratory Rate 22 20 Blood Pressure 107/63 109/66 Pulse Oximetry 100 100 Oxygen Delivery Method Humidification Trach Collar Fraction of Inspired Oxygen 28 28 05/31/25 06:00 Temperature Pulse Rate 74 Respiratory Rate 21 Blood Pressure 110/67 Pulse Oximetry 100 Oxygen Delivery Method Fraction of Inspired Oxygen 28 Fraction of Inspired Oxygen 28 SaO2/FiO2 Ratio 357 Oxygen Delivery Method Humidification,Trach Collar Oxygen Flow Rate 0 Objective Labs 05/30/25 07:15 05/30/25 07:15 Labs: Laboratory Results - last 24 hr 05/30/25 05/30/25 05/30/25 09:56 15:28 21:41 POC Whole Bld Glucose 99 145 H 94 PFSH Medical History Excessive cerumen in both ear canals Chronic anticoagulation Iron deficiency anemia History of pulmonary embolism Status post radiation therapy Chronic anticoagulation Tracheostomy in place Sacral decubitus ulcer, stage III Protein calorie malnutrition Hyponatremia Dysphagia Recurrent aspiration pneumonia Depression, major, recurrent Jejunostomy tube present Influenza A Anemia Pneumonia 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 Father No problems noted. Social History marital status: unmarried,single details: Lives independantly with part-time caregivers household members: caregiver lives independently: Yes occupational status: disabled alcohol intake: former substance use type: marijuana Assessment & Plan Time-Based Coding :: [TOTAL MINUTES] spent with patient and on the chart (including review of chart, obtaining history, exam, reviewing outside data, placing orders, documenting exam and treatment plan, and counseling patient) on [DATE].
[2025-05-31] MEDS: FLUDROCORTISONE 0.1 MG TABLET PO (09:19)
[2025-05-31] MEDS: BACLOFEN 10 MG TABLET 5 MG PO (09:19)
[2025-05-31] MEDS: SERTRALINE 50 MG TABLET 200 MG PO (09:20)
[2025-05-31] MEDS: FOLIC ACID 1 MG TABLET PO (09:20)
[2025-05-31] MEDS: FERROUS SULFATE 325 MG TABLET PO (09:21)
[2025-05-31] MEDS: HYDROCORTISONE 10 MG TABLET 20 MG PO ×2 (09:21→21:50)
[2025-05-31] MEDS: APIXABAN 5 MG TABLET PO ×2 (09:21→21:49)
[2025-05-31] MEDS: SODIUM HYPOCHLORITE 473 ML SOLUTION TOP ×2 (10:06→21:59)
--- NOTE | 2025-05-31 10:57 | DIET.PN1 ---
Dietary Progress Note Assessment: F/u Per discussion in health care team rounds -Switch back to free water flushes Per discussion with pharmacy - will switch to IV fluid of D10 1L per day to provide 100 g dextrose to meet needs and avoid excess fluids. Per discussion with MANAGER STUDENT SERVICES - Pt to d/c home when medically stable. Enteral nutrition order form from [facility] Care provided to ensure pump is delivered and dietitian can make enteral reccs. Form filled out and returned to MANAGER STUDENT SERVICES today. Pt previously tolerated [employer]more Peptide 1.5 formula at home. Pt was previously using this for bolus feeds with PEG before switching to PEJ. Pt has hx of diarrhea and use of PRN banatrol to help with stool formation successful in the past. Ht: 174.73 cm Wt: 70.5 kg BMI: 22.6 UBW: 160 lb Last BM: 05/29/25 (05/29/25 13:40) MNA: 5 Krishan Score: 9 Diet: 05/29/25 03:51 NPO Diet Diet Modifications: NPO Type: NPO except for Meds 05/30/25 Lunch Tube Feeding Diet Diet Modifications: ProSource Protein Packets 5x/d per pharmacy order TF Supplement type: Jevity 1.2 saurav TF mode of delivery: Continuous Starting flow rate mL/hr: 45 Flow rate goal mL/hr: 45 Titration Schedule to reach Goal Rate: - Max total daily volume in mL: 1,800 Free fluid: 100 Free Water Frequency: Q4H Comment: Nutrition Percent Meal Consumed 0% 05/29/25 18:00 Type of Feeding Tube Jejunostomy 05/29/25 17:00 Type of Feeding Tube Jejunostomy 05/29/25 13:00 Labs: RBC 3.36 X10^6/uL (4.5-5.9) L 05/30/25 07:15 Hgb 9.1 g/dL (13.5-17.5) L 05/30/25 07:15 Hct 27.6 % (41-53) L 05/30/25 07:15 Creatinine 0.36 mg/dL (0.66-1.25) L 05/30/25 07:15 Lactate 0.8 mmol/L (0.7-2.1) 05/28/25 23:55 Nutrition Diagnosis: Primary dx: Swallowing difficulty related to motor causes (pseudobulbar palsy) as evidenced by hx of chronic oropharyngeal dysphagia with history of silent aspiration and need for alternative feeding per speech therapy evaluation and PEJ placement -Increased nutrient needs (protein) r/t healing needs as evidenced by skin breakdown and stage 3 pressure -Severe chronic Protein Calorie Malnutrition r/t altered GI tract motility and increased needs (protein) as evidenced by severe muscle wasting in temples and deltoid, severe buccal and orbital subcutaneous fat loss, <60% of estimated protein needs due to hx of malabsorption and wound healing needs for >1 month Interventions: 1. Current enteral recc is as follows: Continuous Jevity 1.2 at 45 mL/hr with 1 ProSource Protein Packet 5 times per day. Flush 100 mL free water Q4H. Provide 100 g dextrose daily through IV D10 1 L per day. -This meets 1896 kcals (100% kcal needs), 115 g protein (100% of needs), 2770 mL fluids 2. When patient is off pressors: Advance to Continuous Jevity 1.2 at 60 mL/hr with 1 ProSource Protein Packet TID. Flush 150 mL free water Q4H. Dependent on blood glucose and dextrose needs, D10 can be d/c per hospitalist. -This meets 1848 kcals (97% kcal needs), 113 g protein (100% needs), 2242 mL fluids 3. [facility] dietitian to assess pt's needs and make enteral feed recc. Form filled out and given to MANAGER STUDENT SERVICES. Estimated Energy Requirements: 1900 kcals (27 kcals/kg per BMI) 100-115 g protein (1.5-1.7 g/kg per wound and PCM), 2400 mL (35 mL/kg) Monitoring/Evaluations: feed tolerance Electronically Signed by: Flakita Hopkins 05/31/25 10:57 Clinical Dietitian [address] [address]
[2025-05-31] MEDS: ACETAMINOPHEN SUSP 650 MG/20.3 ML UDC TUBE (10:59)
[2025-05-31] MEDS: DEXTROSE 10 % IN WATER 1,000 ML 42 ML IV (13:38)
--- NOTE | 2025-05-31 17:04 | CM.DPNOTE ---
DCP Continued: Reviewed EMR and team rounds for pt?s medical status. Per hospitalist, aiming for a discharge home with all supports in place by Tuesday, 06/03. This includes: Home Health, [facility] Caregiver, pt mother available for initial return home, and continuous enteral feeds. DIRECTOR OF LAND ACQUISITION spoke with Inna at [facility], she is requesting signed orders for pt enteral feeds. DIRECTOR OF LAND ACQUISITION identified required forms from [facility] website, obtained signature from hosptialist and faxed to Inna (fax# [phone]). DIRECTOR OF LAND ACQUISITION discussed with dietitian of pt enteral needs, this is to be continually monitored with hospitalist and awaiting final rate recommended. Ultimately, [facility] dietitian to assess needs when pt enters their care (per order form). Dietitian graciously assisted with completing order form appropriately. DIRECTOR OF LAND ACQUISITION spoke with [facility] underwriting sales representative, Jeremias, for discussion of payment and if education of pump to be provided to pt mother/caregivers. [facility] states they are able to provide continuous feeding with Iso[employer] formula with $0.00 out of pocket for patient. [facility] following referral for final agency preference, requesting a follow up when discharge imminent if pt to utilize their agency or not. [facility] forms initiated but not signed by MD yet. DIRECTOR OF LAND ACQUISITION spoke with pt mother, Marianela, who states she has no preference for agency. She only utilized [facility] because it was coordinated for her when pt was admitted at [facility]. Pt mother states she is familiar with [facility] from previous admissions and would take preference to whomever can provide proper education for her since she has not utilized the continuous pump for feeding before. Plan: Anticipating discharge home with [facility], [facility] Caregiver, pt mother and ([facility] vs. [facility] for continuous enteral feeding) on Tuesday, 06/03 or when all medical supports in place. CM Team will continue to follow for coordination of discharge plans. ERIK Sadler
--- NOTE | 2025-05-31 17:33 | PC.NURSE ---
Levophed pause at 1732, will continue to monitor closely to determine if pt can stay off or will need to go back on. Vitals set to Q30Min. No further pt needs at this time, call light within reach, care on going
[2025-06-01] VITALS (53 sets, daily range): BP systolic 82–98; BP diastolic 50–74; PULSE 63–78; RESP 14–21; O2SAT 80–100
[2025-06-01] MEDS: cefTRIAXone 2,000 MG in SODIUM CHLORIDE 0.9% 100 ML 200 MG IV (04:03)
[2025-06-01] MEDS: MIDODRINE HCL 5 MG TABLET 10 MG TUBE (04:03)
[2025-06-01] MEDS: metroNIDAZOLE 500 MG/100 ML PIGGYBACK 100 MG IV ×4 (04:04→21:33)
[2025-06-01] MEDS: [UNRECOGNIZED DRUG - OTHER] 1 EACH TUBE ×5 (06:52→21:32)
--- NOTE | 2025-06-01 07:52 | P.PN_ITS ---
Subjective Subjective Date Patient Seen: 06/01/25 Interval history: The Hypoglycemia and Nutritional Management plan in place includes: * Flushing with 5% dextrose solution 100 mL 5 times a day while continuing the D5 normal saline intravenously to observe whether we meeting patient's glycemic needs and then slowly withdraw the IV support and observe to see if the enteral support meets the glycemic and volume needs Current enteral recc is as follows: Continuous Jevity 1.2 at 45 mL/hr with 1 ProSource Protein Packet 5 times per day. Flush 100 mL free water Q4H. Provide 100 g dextrose daily through IV D10 1 L per day. -This meets 1896 kcals (100% kcal needs), 115 g protein (100% of needs), 2770 mL fluids Now that he is off pressors: Advance to Continuous Jevity 1.2 at 60 mL/hr with 1 ProSource Protein Packet TID. Flush 150 mL free water Q4H. Dependent on blood glucose and dextrose needs -This meets 1848 kcals (97% kcal needs), 113 g protein (100% needs), 2242 mL fluids Chief complaint: Hypoglycemia with poor responsiveness encephalopathy History of present illness: 45-year-old male with a very prolonged hospitalization admitted 05/09 discharged on 05/26 after management of gastric perforation jejunostomy tube placement sepsis aspiration pneumonia and probable adrenal insufficiency. Florinef was discontinued but Solu-Cortef was sent to local pharmacy as well as long-term pharmacy by the discharging physician 05/28: patient's mother reports that the patient was discharged home yesterday and was noted to have altered mental status by the patient's family caregiver. EMS was called and the glucose was in the 20s. IV dextrose given and patient mentation did improve. No reported seizure activity. In the emergency room, the patient remains hemodynamically stable. The patient require D5 to maintain glucose in the 90s. Patient's labs shows a sodium 125 WBC (previously 132) 6.5 hemoglobin 9.3. Per ER physician the peak patient did have a fever. UA was negative and lactate was normal. Chest x-ray shows no signs of pneumonia. CT abdomen and pelvis with IV contrast shows loculated mild bilateral pleural effusion with left greater than right and cholelithiasis with contracted gallbladder. It is recommended that we obtain gallbladder ultrasound after [address] however did not show any acute finding regarding J-tube placement. Empiric IV ceftriaxone and IV Flagyl was given due to finding of contracted gallbladder with cholelithiasis and recent surgery. In addition the patient does take hydrocortisone at home but unclear if the patient has a known able to take it leading to possible hypoglycemia. IV hydrocortisone 100 mg bolus was ordered. Hospital course: 05/29: Patient became hypotensive overnight norepinephrine initiated patient minimally responsive today sodium corrected to 135 from 125 WBC 14.5 hemoglobin 9.1 05/31: Patient is definitely more interactive, moving all his limbs, complaining to the nurses of back pain, etc. compared to when I saw him during his last postop stay. The blood sugars range from 91 up to 145. This is being supported by an IV dextrose infusion. Extensive discussion today regarding dietary/J-tube feeding rates, glucose support, steroid support with vacation planner and dietitian. His mother says that he has caregivers support during the day and that she stays with him at night. She declines long-term acute care or fdc facility, which would definitely be safer in this very complicated patient. Currently Jevity is at 45 per hour pending the Levophed being stopped due to concerns of mesenteric ischemia if the rate is increased while on that. The white count yesterday was 14.5 with a hemoglobin of 9.1. The BNP was normal. His skin breakdown on the buttocks is certainly impressive on the pictures reviewed today. He also has a Jones catheter now. Levophed drip to support systolics above 80 continues. Also on midodrine. 06/01: He continues to improve, now a little bit faster than I would have expected. Overnight he was able to stay off the Levophed. One component of that was spacing out the midodrine to 5 mg every 4 hours. We will continue that pattern since it seemed to help. We will be increasing the tube feeding rate up to 60 mL/hr today. Blood sugars on current support range from 91-134. He makes eye contact and he speaks to me for the very 1st time in all the days that I have rounded on him previously. He says ?rebekah, am I going home? I explained to him that getting the home support system set up and getting his sugars stabilized is expected to take another 1-2 days. He is currently still on the D10 infusion but that should be able to be stopped with the higher tube feeding rate I would expect? We will be rechecking his CBC and metabolic panel tomorrow. Physical exam: Chronically ill contracted male regards with eyes moving and speaking to me with reasonable clearness. Tracheostomy appears to be clear Lungs Clear to auscultation bilaterally. Heart is regular rate and rhythm without murmur. Central point of abdominal Incision appears to have a little bit of exudate but no erythema and no signs of infection Stage III pressure ultrasound boxes buttocks and chronic dermatomycosis are not examined by myself today. No ankle edema Assessment and plan: Chronic continuous aspiration into left lung * Strict NPO * All feedings and medications per J-tube goal of 60/h, currently on 45/h. * Scopolamine patch * Oral care plan Persistent hypotension, possible chronic adrenal insufficiency, started on hydrocortisone with 24 hour urinary free cortisol pending * Resumed 20 mg BID hydrocortisone * Resumed fludrocortisone Chronic Anemia * Hgb 9.1 on 05/30, recheck on 06/02 History of Peg tube in false lumen, removed, Closure of gastrostomy track and placement of J-tube, active. * Appreciate surgery expertise * Tube feeding well tolerated Chronic uncuffed tracheostomy, active. * Chronic management by caregivers Pseudobulbar palsy, and spastic left hemiparesis with long-term tracheostomy and history of recurrent aspiration pneumonia. * Chronic management * Pressure ulcer of left buttock, stage 3: * b.i.d. dressing changes with quarter-inch iodoform gauze to the abdominal wound. * b.i.d. wet to dry dressing changes with Dakin's solution to pressure ulcer left buttock. * Continue pressure offloading and nutritional support. * Follow up at wound center after discharge. 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 meeting/event planner and dietitian currently working on confirming tube feeding, pump, caregiving, 24 hour assistance from family at home. * Current plan is return home with increased caregiving from family, support from [facility], etc. * Responsible family member noncompliant endangering patient The patient has a permanent impairment and needs enteral nutrition for more than 90 days duration. Enteral nutrition is to be managed by [facility]. Exam Vital Signs (past 8 hours): - 06/01/25 00:00 06/01/25 00:00 06/01/25 00:30 Pulse Rate 75 78 Respiratory Rate 19 17 Blood Pressure Pulse Oximetry 92 92 Oxygen Delivery Method Humidification Trach Collar Fraction of Inspired Oxygen 06/01/25 01:00 06/01/25 01:30 06/01/25 02:00 Pulse Rate 77 75 76 Respiratory Rate 19 19 19 Blood Pressure Pulse Oximetry 92 94 94 Oxygen Delivery Method Fraction of Inspired Oxygen 06/01/25 02:30 06/01/25 03:00 06/01/25 03:30 Pulse Rate 72 71 71 Respiratory Rate 18 18 18 Blood Pressure Pulse Oximetry 93 94 95 Oxygen Delivery Method Fraction of Inspired Oxygen 06/01/25 04:00 06/01/25 04:00 06/01/25 04:01 Pulse Rate 72 72 Respiratory Rate 17 18 Blood Pressure Pulse Oximetry 94 94 Oxygen Delivery Method Humidification Trach Collar Fraction of Inspired Oxygen 06/01/25 04:01 06/01/25 04:30 Pulse Rate Respiratory Rate Blood Pressure 85/53 L Pulse Oximetry 96 Oxygen Delivery Method Fraction of Inspired Oxygen 28 Fraction of Inspired Oxygen 28 SaO2/FiO2 Ratio 342 Oxygen Delivery Method Humidification,Trach Collar Oxygen Flow Rate 8 Objective Labs 05/30/25 07:15 05/30/25 07:15 Labs: Laboratory Results - last 24 hr 05/31/25 05/31/25 06/01/25 09:19 15:06 06:31 POC Whole Bld Glucose 91 134 H 94 PFSH Medical History Excessive cerumen in both ear canals Chronic anticoagulation Iron deficiency anemia History of pulmonary embolism Status post radiation therapy Chronic anticoagulation Tracheostomy in place Sacral decubitus ulcer, stage III Protein calorie malnutrition Hyponatremia Dysphagia Recurrent aspiration pneumonia Depression, major, recurrent Jejunostomy tube present Influenza A Anemia Pneumonia 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 Father No problems noted. Social History marital status: unmarried,single details: Lives independantly with part-time caregivers household members: caregiver lives independently: Yes occupational status: disabled alcohol intake: former substance use type: marijuana Assessment & Plan Time-Based Coding :: [TOTAL MINUTES] spent with patient and on the chart (including review of chart, obtaining history, exam, reviewing outside data, placing orders, documenting exam and treatment plan, and counseling patient) on [DATE].
[2025-06-01] MEDS: BACLOFEN 10 MG TABLET 5 MG PO (08:31)
[2025-06-01] MEDS: SCOPOLAMINE 1 PATCH TOP (08:31)
[2025-06-01] MEDS: SERTRALINE 50 MG TABLET 200 MG PO (08:31)
[2025-06-01] MEDS: HYDROCORTISONE 10 MG TABLET 20 MG PO ×2 (08:31→21:32)
[2025-06-01] MEDS: FOLIC ACID 1 MG TABLET PO (08:31)
[2025-06-01] MEDS: FERROUS SULFATE 325 MG TABLET PO (08:31)
[2025-06-01] MEDS: FLUDROCORTISONE 0.1 MG TABLET PO (08:31)
[2025-06-01] MEDS: APIXABAN 5 MG TABLET PO ×2 (08:32→21:32)
[2025-06-01] MEDS: SODIUM HYPOCHLORITE 473 ML SOLUTION TOP ×2 (08:32→21:34)
[2025-06-01] MEDS: ACETAMINOPHEN SUSP 650 MG/20.3 ML UDC TUBE (11:13)
[2025-06-01] MEDS: MIDODRINE HCL 5 MG TABLET TUBE ×3 (12:56→21:33)
[2025-06-01] MEDS: DEXTROSE 10 % IN WATER 1,000 ML 42 ML IV (14:07)
--- NOTE | 2025-06-01 14:52 | CM.DPC ---
DCP Cont: ROBIN spoke to on-call RN at [facility] and confirmed that they would work to get pt on their schedule to have RN bedside with pump and any equipment needed and complete teach prior to pt discharging the hospital. confirms that this would be the preferred option over prior [facility] only talking to pt/mom via phone and placing orders from the office without in-person teach and not delivering the pump until after discharge. signed [facility] Enteral Order Form and ROBIN provided the check list of what is needed in MD prog note or discharge summary for [facility] to manage after discharge. plans to try to get this info needed in his note today or tomorrow to send to [facility]. ROBIN faxed Enteral Order Form to [facility] to review and they will note that tentative plan remains for pt to discharge on Tuesday if medically stable and [facility] will work with their schedule to do teach bedside prior to d/c and will call ROBIN Tue to confirm plan and that pt stable for discharge. Faxed updated notes to [facility] as well for ongoing HH RN/ST after discharge and plan of possible d/c Tuesday. Will need to update [facility] Tuesday that pt switching to [facility] once confirmed Tuesday. ARIC Ca
[2025-06-02] VITALS (52 sets, daily range): BP systolic 88–131; BP diastolic 50–86; PULSE 66–80; RESP 16–28; O2SAT 98–100
[2025-06-02] MEDS: MIDODRINE HCL 5 MG TABLET TUBE ×6 (01:26→21:17)
[2025-06-02] MEDS: metroNIDAZOLE 500 MG/100 ML PIGGYBACK 100 MG IV ×4 (03:55→21:18)
[2025-06-02] MEDS: cefTRIAXone 2,000 MG in SODIUM CHLORIDE 0.9% 100 ML 200 MG IV (03:55)
[2025-06-02] MEDS: [UNRECOGNIZED DRUG - OTHER] 1 EACH TUBE ×5 (05:22→21:18)
--- NOTE | 2025-06-02 07:12 | P.PN_ITS ---
Subjective Subjective Date Patient Seen: 06/02/25 Interval history: Chief complaint: Hypoglycemia with poor responsiveness encephalopathy History of present illness: 45-year-old male with a very prolonged hospitalization admitted 05/09 discharged on 05/26 after management of gastric perforation jejunostomy tube placement sepsis aspiration pneumonia and probable adrenal insufficiency. Florinef was discontinued but Solu-Cortef was sent to local pharmacy as well as long-term pharmacy by the discharging physician 05/28: patient's mother reports that the patient was discharged home yesterday and was noted to have altered mental status by the patient's family caregiver. EMS was called and the glucose was in the 20s. IV dextrose given and patient mentation did improve. No reported seizure activity. In the emergency room, the patient remains hemodynamically stable. The patient require D5 to maintain glucose in the 90s. Patient's labs shows a sodium 125 WBC (previously 132) 6.5 hemoglobin 9.3. Per ER physician the peak patient did have a fever. UA was negative and lactate was normal. Chest x-ray shows no signs of pneumonia. CT abdomen and pelvis with IV contrast shows loculated mild bilateral pleural effusion with left greater than right and cholelithiasis with contracted gallbladder. It is recommended that we obtain gallbladder ultrasound after [address] however did not show any acute finding regarding J-tube placement. Empiric IV ceftriaxone and IV Flagyl was given due to finding of contracted gallbladder with cholelithiasis and recent surgery. In addition the patient does take hydrocortisone at home but unclear if the patient has a known able to take it leading to possible hypoglycemia. IV hydrocortisone 100 mg bolus was ordered. Hospital course: 05/29: Patient became hypotensive overnight norepinephrine initiated patient minimally responsive today sodium corrected to 135 from 125 WBC 14.5 hemoglobin 9.1 05/31: Patient is definitely more interactive, moving all his limbs, complaining to the nurses of back pain, etc. compared to when I saw him during his last postop stay. The blood sugars range from 91 up to 145. This is being supported by an IV dextrose infusion. Extensive discussion today regarding dietary/J-tube feeding rates, glucose support, steroid support with master planner and dietitian. His mother says that he has caregivers support during the day and that she stays with him at night. She declines long-term acute care or nursing home facility, which would definitely be safer in this very complicated patient. Currently Jevity is at 45 per hour pending the Levophed being stopped due to concerns of mesenteric ischemia if the rate is increased while on that. The white count yesterday was 14.5 with a hemoglobin of 9.1. The BNP was normal. His skin breakdown on the buttocks is certainly impressive on the pictures reviewed today. He also has a Jones catheter now. Levophed drip to support systolics above 80 continues. Also on midodrine. 06/01: He continues to improve, now a little bit faster than I would have expected. Overnight he was able to stay off the Levophed. One component of that was spacing out the midodrine to 5 mg every 4 hours. We will continue that pattern since it seemed to help. We will be increasing the tube feeding rate up to 60 mL/hr today. Blood sugars on current support range from 91-134. He makes eye contact and he speaks to me for the very 1st time in all the days that I have rounded on him previously. He says ?rebekah, am I going home? I explained to him that getting the home support system set up and getting his sugars stabilized is expected to take another 1-2 days. He is currently still on the D10 infusion but that should be able to be stopped with the higher tube feeding rate I would expect? We will be rechecking his CBC and metabolic panel tomorrow. 06/02: He is not quite as responsive/interactive with me today but remains verbal and much more aware. The tube feeds are currently at 50 mL/hr and will be increased to 60 today. The D10 will be stopped and we will be monitoring his blood sugars. If they are within normal range and his mental status remains stable he will be discharging back to his home with his mother's supervision and care tomorrow. The white blood count is 3.1 with a hemoglobin of 7.6, down from 9.1. The potassium is 3.1 so he will be started on potassium chloride 20 daily in the tube. The albumin is 2.3. Check an iron level and consider iron infusion. Physical exam: Chronically ill contracted male who engages, says rebekah and then mumbles answers to my questions. Tracheostomy appears to be clear Lungs Clear to auscultation bilaterally. Heart is regular rate and rhythm without murmur. Central point of abdominal Incision appears to have a little bit of exudate but no erythema and no signs of infection Stage III pressure ultrasound boxes buttocks and chronic dermatomycosis are not examined by myself today. No ankle edema Assessment and plan: Symptomatic hypoglycemia with altered mental status on admission. * Trial off D10 infusion on 06/02 once reaching the 60 mL/hr tube feeding goal. Chronic continuous aspiration into left lung * Strict NPO * All feedings and medications per J-tube goal of 60/h, currently on 50/h. * Scopolamine patch * Oral care plan Persistent hypotension, possible chronic adrenal insufficiency, started on hydrocortisone with 24 hour urinary free cortisol pending * Resumed 20 mg BID hydrocortisone * Resumed fludrocortisone Chronic Anemia * Hgb 9.1 on 05/30, recheck on 06/02 at 7.6. Check iron level and consider infusion. Follow. History of Peg tube in false lumen, removed, Closure of gastrostomy track and placement of J-tube, active. * Appreciate surgery expertise * Tube feeding well tolerated, increase to 60 mL/hr today. Chronic uncuffed tracheostomy, active. * Chronic management by caregivers * Pseudobulbar palsy, and spastic left hemiparesis with long-term tracheostomy and history of recurrent aspiration pneumonia. * Chronic management * Pressure ulcer of left buttock, stage 3: * b.i.d. dressing changes with quarter-inch iodoform gauze to the abdominal wound. * b.i.d. wet to dry dressing changes with Dakin's solution to pressure ulcer left buttock. * Continue pressure offloading and nutritional support. * Follow up at wound center after discharge. 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 planner intern and dietitian currently working on confirming tube feeding, pump, caregiving, 24 hour assistance from family at home. * Current plan is return home 06/03 or 06/04 with increased caregiving from family, support from [facility], etc. * Responsible family member noncompliant endangering patient -Severe chronic Protein Calorie Malnutrition ruled in -r/t altered GI tract motility and increased needs (protein) as evidenced by severe muscle wasting in temples and deltoid, severe buccal and orbital subcutaneous fat loss, <60% of estimated protein needs due to malabsorption and wound healing needs for >1 month -Increased nutrient needs (protein) r/t healing needs as evidenced by skin breakdown and wounds The Hypoglycemia and Nutritional Management plan in place includes: * Flushing with 5% dextrose solution 100 mL 5 times a day while continuing the D5 normal saline intravenously to observe whether we meeting patient's glycemic needs and then slowly withdraw the IV support and observe to see if the enteral support meets the glycemic and volume needsCurrent enteral recc is as follows: Continuous Jevity 1.2 at 45 mL/hr with 1 ProSource Protein Packet 5 times per day. Flush 100 mL free water Q4H. Provide 100 g dextrose daily through IV D10 1 L per day. -This meets 1896 kcals (100% kcal needs), 115 g protein (100% of needs), 2770 mL fluids Now that he is off pressors: Advance to Continuous Jevity 1.2 at 60 mL/hr with 1 ProSource Protein Packet TID. Flush 150 mL free water Q4H. Dependent on blood glucose and dextrose needs -This meets 1848 kcals (97% kcal needs), 113 g protein (100% needs), 2242 mL fluids The patient has a permanent impairment and needs enteral nutrition for more than 90 days duration. Enteral nutrition is to be managed by [facility]. Exam Vital Signs (past 8 hours): - 06/01/25 23:30 06/01/25 23:30 06/02/25 00:00 Pulse Rate 70 68 Respiratory Rate 20 20 Blood Pressure 94/56 L Pulse Oximetry 100 100 06/02/25 00:00 06/02/25 00:30 06/02/25 00:30 Pulse Rate 68 Respiratory Rate 20 Blood Pressure 89/53 L 91/50 L Pulse Oximetry 100 06/02/25 01:00 06/02/25 01:00 06/02/25 01:30 Pulse Rate 69 74 Respiratory Rate 19 20 Blood Pressure 89/55 L Pulse Oximetry 100 100 06/02/25 01:30 06/02/25 02:00 06/02/25 02:00 Pulse Rate 70 Respiratory Rate 20 Blood Pressure 97/53 L 96/52 L Pulse Oximetry 100 06/02/25 02:30 06/02/25 02:30 06/02/25 03:00 Pulse Rate 72 71 Respiratory Rate 19 20 Blood Pressure 89/54 L Pulse Oximetry 99 98 06/02/25 03:00 Pulse Rate Respiratory Rate Blood Pressure 88/52 L Pulse Oximetry Fraction of Inspired Oxygen 28 SaO2/FiO2 Ratio 353 Oxygen Delivery Method Humidification,Trach Collar Oxygen Flow Rate 7 Objective Labs 06/02/25 07:25 06/02/25 07:25 Labs: Laboratory Results - last 24 hr 06/01/25 06/01/25 06/01/25 11:58 18:48 23:56 POC Whole Bld Glucose 111 H 100 H 101 H 06/02/25 06:08 POC Whole Bld Glucose 92 PFSH Medical History Excessive cerumen in both ear canals Chronic anticoagulation Iron deficiency anemia History of pulmonary embolism Status post radiation therapy Chronic anticoagulation Tracheostomy in place Sacral decubitus ulcer, stage III Protein calorie malnutrition Hyponatremia Dysphagia Recurrent aspiration pneumonia Depression, major, recurrent Jejunostomy tube present Influenza A Anemia Pneumonia 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 Father No problems noted. Social History marital status: unmarried,single details: Lives independantly with part-time caregivers household members: caregiver lives independently: Yes occupational status: disabled alcohol intake: former substance use type: marijuana Assessment & Plan Time-Based Coding :: [TOTAL MINUTES] spent with patient and on the chart (including review of chart, obtaining history, exam, reviewing outside data, placing orders, documenting exam and treatment plan, and counseling patient) on [DATE].
[2025-06-02 07:36] LABS: Add Manual Diff / Slide Review NO; Hematocrit 23.0 % (41-53); Hemoglobin 7.6 g/dL (13.5-17.5); Lymphocytes Absolute Auto 600 /uL (1100-4500); Mean Corpuscular HGB Conc 33.1 % (30-36); Mean Corpuscular Hemoglobin 26.9 PG (26-34); Mean Corpuscular Volume 81.2 fL (80-100); Platelet Count 285 X10^3/uL (150-400)
[2025-06-02 07:48] LABS: Alanine Aminotransferase 21 IU/L (<50); Albumin 2.3 g/dL (3.5-5.0); Albumin Globulin Ratio 0.7 (1.0-2.8); Alkaline Phosphatase 71 U/L (38-126); Blood Urea Nitrogen 10 mg/dL (9-20); Calcium 7.5 mg/dL (8.4-10.2); Carbon Dioxide 28 mmol/L (22-32); Chloride 102 mmol/L (98-107); Estimated Glomerular Filt Rate > 60 mL/min (>60); Globulin 3.3 g/dL (1.7-4.1); Glucose 98 mg/dL (70-99); HEMOLYSIS < 15 (0-50); Potassium 3.1 mmol/L (3.4-5.1); Sodium 135 mmol/L (137-145); Total Protein 5.6 g/dL (6.3-8.2)
[2025-06-02] MEDS: FLUDROCORTISONE 0.1 MG TABLET PO (09:13)
[2025-06-02] MEDS: APIXABAN 5 MG TABLET PO ×2 (09:13→21:17)
[2025-06-02] MEDS: SERTRALINE 50 MG TABLET 200 MG PO (09:13)
[2025-06-02] MEDS: POTASSIUM CHLORIDE 20 MEQ/15 ML UDC TUBE (09:13)
[2025-06-02] MEDS: FERROUS SULFATE 325 MG TABLET PO (09:13)
[2025-06-02] MEDS: FOLIC ACID 1 MG TABLET PO (09:14)
[2025-06-02] MEDS: SODIUM HYPOCHLORITE 473 ML SOLUTION TOP ×2 (09:14→21:18)
[2025-06-02] MEDS: BACLOFEN 10 MG TABLET 5 MG PO (09:14)
[2025-06-02] MEDS: HYDROCORTISONE 10 MG TABLET 20 MG PO ×2 (09:14→21:17)
[2025-06-02 10:36] LABS: HEMOLYSIS < 15 (0-50)
[2025-06-02 10:52] LABS: Total Iron Binding Capacity 186 ug/dL (261-462); Transferrin 131 mg/dL (206-381)
--- NOTE | 2025-06-02 13:05 | CM.DPNOTE ---
DCP note HANDS AND DIAL INSPECTOR reviewed EMR per provider, remains on track to dc tomorrow potentially. HANDS AND DIAL INSPECTOR faxed updated clinicals to [facility] P: anticipate dc home tomorrow with CG support (mom and SHAUN). (where is powerchair?). pending teaching/pump from [facility]. CM team will continue to follow closely for DCP Coordination ARIC Rebolledo
--- NOTE | 2025-06-02 13:34 | PC.NURSE ---
Addendum entered by Thea Cabrera RN 06/02/25 17:31: Per provider Dr. Lockhart request, urinary catheter removed and replaced with condom catheter. Meatus floated to encourage reduction in swelling. Care ongoing. Original Note: Day shift: Pt able to communicate needs via speaking valve. Uses call light appropriately. Frequent loose stools. Swelling around meatus of penis, attempted to reduce with lubricant. Unable to place foreskin back over meatus. Provider notified. Care ongoing.
[2025-06-02] MEDS: ACETAMINOPHEN SUSP 650 MG/20.3 ML UDC TUBE (20:01)
[2025-06-03] VITALS (52 sets, daily range): BP systolic 99–150; BP diastolic 60–95; PULSE 61–74; RESP 19–24; O2SAT 99–100
[2025-06-03] MEDS: MIDODRINE HCL 5 MG TABLET TUBE ×6 (01:11→21:47)
[2025-06-03] MEDS: metroNIDAZOLE 500 MG/100 ML PIGGYBACK 100 MG IV ×4 (04:51→21:48)
[2025-06-03] MEDS: [UNRECOGNIZED DRUG - OTHER] 1 EACH TUBE ×5 (04:51→21:48)
[2025-06-03 05:21] LABS: Add Manual Diff / Slide Review NO; Hematocrit 22.6 % (41-53); Hemoglobin 7.5 g/dL (13.5-17.5); Lymphocytes Absolute Auto 700 /uL (1100-4500); Mean Corpuscular HGB Conc 33.2 % (30-36); Mean Corpuscular Hemoglobin 27.0 PG (26-34); Mean Corpuscular Volume 81.3 fL (80-100); Platelet Count 291 X10^3/uL (150-400)
[2025-06-03 05:29] LABS: Blood Urea Nitrogen 15 mg/dL (9-20); Calcium 7.6 mg/dL (8.4-10.2); Carbon Dioxide 31 mmol/L (22-32); Chloride 101 mmol/L (98-107); Estimated Glomerular Filt Rate > 60 mL/min (>60); Glucose 86 mg/dL (70-99); HEMOLYSIS < 15 (0-50); Potassium 3.4 mmol/L (3.4-5.1); Sodium 133 mmol/L (137-145)
[2025-06-03 05:30] LABS: Magnesium 1.6 mg/dL (1.6-2.3)
--- NOTE | 2025-06-03 08:09 | P.DS_ITS ---
History of Present Illness History of Present Illness Date Patient Seen: 06/03/25 Chief complaint: Hypoglycemic Narrative: 45-year-old male with past medical history of cerebral palsy, brain tumor status postradiation treatment and residual right sided hemiparesis and left-sided hemiplegia, tracheostomy, history of pulmonary embolism on Eliquis, depression, chronic anemia and recent admission for G-tube revision was discharged yesterday from the hospital presents with severe hypoglycemia. Of note the patient's mother reports that the patient was discharged home yesterday and was noted to have altered mental status by the patient's family caregiver. EMS was called and the glucose was in the 20s. IV dextrose given and patient mentation did improve. No reported seizure activity. Of note the patient does have intermittent hypoglycemic episode in the past. It is unclear if the patient's revision G-tube was working. In the emergency room, the patient remains hemodynamically stable. The patient require D5 to maintain glucose in the 90s. Patient's labs shows a sodium 125 WBC 6.5 hemoglobin 9.3. Per ER physician the peak patient did have a fever. UA was negative and lactate was normal. Chest x-ray shows no signs of pneumonia. CT abdomen and pelvis with IV contrast shows loculated mild bilateral pleural effusion with left greater than right and cholelithiasis with contracted gallbladder. It is recommended that we obtain gallbladder ultrasound after [address] however did not show any acute finding regarding T2 placement. Empiric IV ceftriaxone and IV Flagyl was given due to finding of contracted gallbladder with cholelithiasis and recent surgery. In addition the patient does take hydrocortisone at home but unclear if the patient has a known able to take it leading to possible hypoglycemia. IV hydrocortisone 100 mg bolus was ordered. Discharge Providers Provider Date of admission: 05/29/25 04:33 Discharge Date: 06/03/25 Primary care physician: Chucky Marshall MD Consults: 05/29/25 03:52 Consult to Dietitian, Adult Stat Comment: Dominique Arteaga tube feeding at home (4) cartoons a day Reason For Exam: tube feeding 05/29/25 03:57 Consult to Discharge Planning Routine Comment: 05/29/25 03:58 Consult to Physical Therapy Evaluate & Treat Comment: Physician Instructions: Evaluate and Treat 05/29/25 12:01 Consult to Wound Care Routine Comment: Consulting Provider: [facility] 05/31/25 10:52 Consult to Dietitian, Adult Routine Comment: Reason For Exam: tube feed Discharge provider: Bartolome Lockhart MD Summary Hospital Course Hospital Course: Hypoglycemia with poor responsiveness encephalopathy History of present illness: 45-year-old male with a very prolonged hospitalization admitted 05/09 discharged on 05/26 after management of gastric perforation jejunostomy tube placement sepsis aspiration pneumonia and probable adrenal insufficiency. Florinef was discontinued but Solu-Cortef was sent to local pharmacy as well as long-term pharmacy by the discharging physician 05/28: patient's mother reports that the patient was discharged home yesterday and was noted to have altered mental status by the patient's family caregiver. EMS was called and the glucose was in the 20s. IV dextrose given and patient mentation did improve. No reported seizure activity. In the emergency room, the patient remains hemodynamically stable. The patient require D5 to maintain glucose in the 90s. Patient's labs shows a sodium 125 WBC (previously 132) 6.5 hemoglobin 9.3. Per ER physician the peak patient did have a fever. UA was negative and lactate was normal. Chest x-ray shows no signs of pneumonia. CT abdomen and pelvis with IV contrast shows loculated mild bilateral pleural effusion with left greater than right and cholelithiasis with contracted gallbladder. It is recommended that we obtain gallbladder ultrasound after [address] however did not show any acute finding regarding J-tube placement. Empiric IV ceftriaxone and IV Flagyl was given due to finding of contracted gallbladder with cholelithiasis and recent surgery. In addition the patient does take hydrocortisone at home but unclear if the patient has a known able to take it leading to possible hypoglycemia. IV hydrocortisone 100 mg bolus was ordered. Hospital course: 05/29: Patient became hypotensive overnight norepinephrine initiated patient minimally responsive today sodium corrected to 135 from 125 WBC 14.5 hemoglobin 9.1 05/31: Patient is definitely more interactive, moving all his limbs, complaining to the nurses of back pain, etc. compared to when I saw him during his last postop stay. The blood sugars range from 91 up to 145. This is being supported by an IV dextrose infusion. Extensive discussion today regarding dietary/J-tube feeding rates, glucose support, steroid support with planner scheduler and dietitian. His mother says that he has caregivers support during the day and that she stays with him at night. She declines long-term acute care or fdc facility, which would definitely be safer in this very complicated patient. Currently Jevity is at 45 per hour pending the Levophed being stopped due to concerns of mesenteric ischemia if the rate is increased while on that. The white count yesterday was 14.5 with a hemoglobin of 9.1. The BNP was normal. His skin breakdown on the buttocks is certainly impressive on the pictures reviewed today. He also has a Jones catheter now. Levophed drip to support systolics above 80 continues. Also on midodrine. 06/01: He continues to improve, now a little bit faster than I would have expected. Overnight he was able to stay off the Levophed. One component of that was spacing out the midodrine to 5 mg every 4 hours. We will continue that pattern since it seemed to help. We will be increasing the tube feeding rate up to 60 mL/hr today. Blood sugars on current support range from 91-134. He makes eye contact and he speaks to me for the very 1st time in all the days that I have rounded on him previously. He says ?hello, am I going home? I explained to him that getting the home support system set up and getting his sugars stabilized is expected to take another 1-2 days. He is currently still on the D10 infusion but that should be able to be stopped with the higher tube feeding rate I would expect? We will be rechecking his CBC and metabolic panel tomorrow. 06/02: He is not quite as responsive/interactive with me today but remains verbal and much more aware. The tube feeds are currently at 50 mL/hr and will be increased to 60 today. The D10 will be stopped and we will be monitoring his blood sugars. If they are within normal range and his mental status remains stable he will be discharging back to his home with his mother's supervision and care tomorrow. The white blood count is 3.1 with a hemoglobin of 7.6, down from 9.1. The potassium is 3.1 so he will be started on potassium chloride 20 daily in the tube. The albumin is 2.3. Check an iron level and consider iron infusion. 06/03: The iron level from yesterday is still pending. The hemoglobin is stable at 7.5. The white blood count is 2.6. The potassium is 3.4, up from 3.1 with the 20 mEq daily in the feeding tube. The magnesium level is 1.6. Nursing staff just changed his dressings and report that the sacral duration scab/eschar has turned darker and the left buttock superficial ulceration has matured to a less bright red color. When I tell him that he is going home today he says ?awesome, thanks. ? Subsequently his mother notified the planner scheduler that she was unable to accommodate/transport him today as she is working but will take the day off tomorrow to take him home. All the arrangements for the tube feeding and home health care have been finalized and the prescriptions have been sent to his mail order pharmacy and should be arriving soon. The lomas factor is to remain on the steroids for the adrenal cortical insufficiency as hypoglycemia (after not getting the Hydrocortisone) was the reason he had altered mental status and returned to the hospital after the last discharge. Symptomatic hypoglycemia with altered mental status on admission. * Now off the D10/D5 and at the 60 mL/hr tube feeding goal. Chronic continuous aspiration into left lung * Strict NPO * All feedings and medications per J-tube goal of 60/h * Scopolamine patch * Oral care plan Persistent hypotension, possible chronic adrenal insufficiency, started on hydrocortisone with 24 hour urinary free cortisol pending * Resumed 20 mg BID hydrocortisone * Resumed fludrocortisone Chronic Anemia * Hgb 9.1 on 05/30, recheck on 06/02 at 7.6 and 06/03 at 7.5. Pending iron level and consider infusion. Follow. History of Peg tube in false lumen, removed, Closure of gastrostomy track and placement of J-tube, active. * Appreciate surgery expertise * Tube feeding well tolerated, increased to 60 mL/hr today. Chronic uncuffed tracheostomy, active. * Chronic management by caregivers Pseudobulbar palsy, and spastic left hemiparesis with long-term tracheostomy and history of recurrent aspiration pneumonia. * Chronic management Pressure ulcer of left buttock, stage 3: * b.i.d. dressing changes with quarter-inch iodoform gauze to the abdominal wound. * b.i.d. wet to dry dressing changes with Dakin's solution to pressure ulcer left buttock. * Continue pressure offloading and nutritional support. * Follow up at wound center after discharge 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DVT prophylaxis * Covered with Eliquis Disposition: * Chronic hospitalization per LTAC would be ideal but patients mother is declining. transit planner and dietitian arranged/confirmed tube feeding, pump, caregiving, 24 hour assistance from family at home. * Current plan is return home today with increased caregiving from family, support from [facility], etc. * Responsible family member noncompliant endangering patient -Severe chronic Protein Calorie Malnutrition ruled in -r/t altered GI tract motility and increased needs (protein) as evidenced by severe muscle wasting in temples and deltoid, severe buccal and orbital subcutaneous fat loss, <60% of estimated protein needs due to malabsorption and wound healing needs for >1 month -Increased nutrient needs (protein) r/t healing needs as evidenced by skin breakdown and wounds The Hypoglycemia and Nutritional Management plan in place includes: * Flushing with 5% dextrose solution 100 mL 5 times a day while continuing the D5 normal saline intravenously to observe whether we meeting patient's glycemic needs and then slowly withdraw the IV support and observe to see if the enteral support meets the glycemic and volume needsCurrent enteral recc is as follows: Continuous Jevity 1.2 at 45 mL/hr with 1 ProSource Protein Packet 5 times per day. Flush 100 mL free water Q4H. Provide 100 g dextrose daily through IV D10 1 L per day.-This meets 1896 kcals (100% kcal needs), 115 g protein (100% of needs), 2770 mL fluids Now that he is off pressors: Advance to Continuous Jevity 1.2 at 60 mL/hr with 1 ProSource Protein Packet TID. Flush 150 mL free water Q4H. Dependent on blood glucose and dextrose needs -This meets 1848 kcals (97% kcal needs), 113 g protein (100% needs), 2242 mL fluids The patient has a permanent impairment and needs enteral nutrition for more than 90 days duration. Enteral nutrition is to be managed by [facility]. Status at Discharge Cognitive/behavioral status at discharge: at baseline, oriented Functional status at discharge: wheelchair bound Overall status at discharge: patient is progressing back to baseline Time Spent with Patient Time spent: Greater than 30 minutes Exam Vital Signs (past 8 hours): - 06/03/25 00:30 06/03/25 01:00 06/03/25 01:30 Pulse Rate 68 70 67 Respiratory Rate 21 23 21 Pulse Oximetry 100 100 100 06/03/25 02:00 06/03/25 02:30 06/03/25 03:00 Pulse Rate 68 65 66 Respiratory Rate 21 22 21 Pulse Oximetry 100 100 100 06/03/25 03:30 06/03/25 04:00 Pulse Rate 69 67 Respiratory Rate 22 20 Pulse Oximetry 100 99 Fraction of Inspired Oxygen 28 SaO2/FiO2 Ratio 353 Oxygen Delivery Method Humidification,Trach Collar Oxygen Flow Rate 7 Narrative Exam Narrative: Chronically ill contracted male who engages, says hello and then mumbles answers to my questions. Tracheostomy appears to be clear Lungs Clear to auscultation bilaterally. Heart is regular rate and rhythm without murmur. Central point of abdominal Incision appears to have a little bit of exudate but no erythema and no signs of infection Stage III pressure ultrasound boxes buttocks and chronic dermatomycosis are not examined by myself today. No ankle edema Objective Labs 06/03/25 05:00 06/03/25 05:00 Labs: Laboratory Results - last 24 hr 06/02/25 06/02/25 06/02/25 07:25 11:38 17:46 WBC RBC Hgb Hct MCV MCH MCHC RDW Plt Count Neut % (Auto) Lymph % (Auto) [place] % (Auto) Eos % (Auto) Baso % (Auto) Neut # (Auto) Lymph # (Auto) [place] # (Auto) Eos # (Auto) Baso # (Auto) Sodium Potassium Chloride Carbon Dioxide BUN Creatinine Estimated GFR BUN/Creatinine Ratio Glucose POC Whole Bld Glucose 95 103 H Calcium Magnesium TIBC 186 L Transferrin 131 L 06/03/25 06/03/25 06/03/25 00:10 05:00 06:31 WBC 2.6 L RBC 2.78 L Hgb 7.5 L Hct 22.6 L MCV 81.3 MCH 27.0 MCHC 33.2 RDW 19.1 H Plt Count 291 Neut % (Auto) 61.2 Lymph % (Auto) 27.9 [place] % (Auto) 7.9 Eos % (Auto) 1.7 L Baso % (Auto) 1.3 Neut # (Auto) 1600 Lymph # (Auto) 700 L [place] # (Auto) 200 Eos # (Auto) 0 Baso # (Auto) 0 Sodium 133 L Potassium 3.4 Chloride 101 Carbon Dioxide 31 BUN 15 Creatinine 0.32 L Estimated GFR > 60 BUN/Creatinine Ratio 46.9 H Glucose 86 POC Whole Bld Glucose 91 100 H Calcium 7.6 L Magnesium 1.6 TIBC Transferrin [facility] Medical History Excessive cerumen in both ear canals Chronic anticoagulation Iron deficiency anemia History of pulmonary embolism Status post radiation therapy Chronic anticoagulation Tracheostomy in place Sacral decubitus ulcer, stage III Protein calorie malnutrition Hyponatremia Dysphagia Recurrent aspiration pneumonia Depression, major, recurrent Jejunostomy tube present Influenza A Anemia Pneumonia 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 Father No problems noted. Social History marital status: unmarried,single details: Lives independantly with part-time caregivers household members: caregiver lives independently: Yes occupational status: disabled alcohol intake: former substance use type: marijuana Discharge Plan Discharge Plan Patient Disposition: Home Health Service Transfer to: [facility] Provider Discharge Comment: Follow up with Dr. Marshall in 1-2 weeks. Discharge orders & Medications Prescriptions: New midodrine 5 mg Tablet 5 mg TUBE Q4HR Qty: 100 0RF oxycodone 5 mg/5 mL Solution 5 mg TUBE Q4HR PRN (Reason: Pain, Moderate (4-6)) Qty: 60 0RF potassium chloride 20 mEq/15 mL Liquid 20 meq TUBE DAILY Qty: 500 0RF hydrocortisone [Cortef] 10 mg Tablet 20 mg PO BID Qty: 120 0RF fludrocortisone 0.1 mg Tablet 0.1 mg PO DAILY Qty: 100 0RF Dakin's Solution 0.125 % Solution 1 ml topical BID Qty: 100 0RF Continued ferrous sulfate 325 mg (65 mg iron) tablet 130 mg PO DAILY baclofen 5 mg/5 mL solution 5 mg PO DAILY Qty: 473 3RF Rx Instructions: Give 5mL via J-tube Eliquis 5 mg tablet 5 mg PO BID Qty: 60 12RF folic acid 1 mg tablet 1 mg PO DAILY Qty: 90 3RF scopolamine base 1 mg over 3 days patch 3 day 1 patch topical Q3D Qty: 24 1RF sodium chloride 0.9 % solution for nebulization 2.5 ml inhalation Q12H PRN (Reason: shortness of breath or wheezing) Qty: 300 0RF sertraline 100 mg tablet 200 mg PO DAILY Qty: 60 2RF Banatrol Plus Powder In Packet 1 ea PO 4XD Qty: 450 3RF Glucagon Emergency Kit (human) 1 mg recon soln 1 mg IM ONCE Discontinued midodrine 10 mg tablet 10 mg feeding tube Q8H Qty: 270 1RF hydrocortisone [Cortef] 10 mg Tablet 10 mg PO DAILY Qty: 30 11RF hydrocortisone 10 mg tablet 10 mg PO DAILY Qty: 30 11RF No Action (DME) XL mattress for semi-electric hospital bed See Rx Instructions .Route .MEDSUPPLY Qty: 1 0RF Rx Instructions: use daily as directed (DME) Disabled Parking Qty: 1 0RF Rx Instructions: I find this patient to be medically disabled and qualified for Disabled Parking as indicated, and signed, on the Accompanying Disabled Parking Application for Individuals (DME) Battery Powered Lift Qty: 1 0RF Dose Instruction: As directed Rx Instructions: Use daily as directed for transfers to and from bed (DME) Power Chair tall Qty: 1 0RF Dose Instruction: As directed Rx Instructions: As directed for patient care with activities of daily living. Chair needs to tilt foreword and tilt backwards for patient care. Pt is 6 feet tall and will need to fit height. (DME) Shower Chair Qty: 1 0RF Rx Instructions: As directed for patient care with activities of daily living. Chair needs to tilt foreword and tilt backwards for patient care. Pt is 6 feet tall and will need to fit height. (DME) Semi-electric hospital bed Qty: 1 0RF Dose Instruction: As directed Rx Instructions: Semi-electric hospital bed to permit transfers to wheelchair and to attach traction equipment. Must be large enough and long enough to accommodate his height and weight. EDEN: 99 months (DME) Mattress See Rx Instructions .Route .MEDSUPPLY Qty: 1 0RF Rx Instructions: Long mattress for hospital bed (DME) [employer]raphica Communication Device See Rx Instructions .Route .MEDSUPPLY Qty: 1 0RF Rx Instructions: Evaluation for speech generating device. See online submission form for free trial of device. (DME) suction catheter kit See Rx Instructions .Route .MEDSUPPLY Qty: 5 4RF Rx Instructions: [employer] suction catheter (or equivalent) equipement and disposable. [employer] DME supply (DME) BD Luer-Rafael Syringe 3 mL 20 gauge x 1 syringe See Rx Instructions .ROUTE .MEDSUPPLY Qty: 1 Patient Comments: USE FOR MUCOMYST Rx Instructions: As directed (DME) blood-glucose meter [True Metrix Air Glucose Meter] Misc See Rx Instructions .ROUTE DAILY Qty: 1 Rx Instructions: As directed Follow up/Referrals: Chucky Marshall MD [Primary Care Provider, Internal Medicine] Visit Report/Discharge Packet Stand Alone Forms: Patient Portal/API, Stroke Signs & Symptoms Discharge Data Primary Care Provider: Chucky Marshall V
[2025-06-03] MEDS: BACLOFEN 10 MG TABLET 5 MG PO (09:17)
[2025-06-03] MEDS: FOLIC ACID 1 MG TABLET PO (09:17)
[2025-06-03] MEDS: FLUDROCORTISONE 0.1 MG TABLET PO (09:17)
[2025-06-03] MEDS: HYDROCORTISONE 10 MG TABLET 20 MG PO ×2 (09:18→21:48)
[2025-06-03] MEDS: SERTRALINE 50 MG TABLET 200 MG PO (09:19)
[2025-06-03] MEDS: FERROUS SULFATE 325 MG TABLET PO (09:19)
[2025-06-03] MEDS: APIXABAN 5 MG TABLET PO ×2 (09:19→21:47)
[2025-06-03] MEDS: POTASSIUM CHLORIDE 20 MEQ/15 ML UDC TUBE (09:19)
[2025-06-03] MEDS: SODIUM HYPOCHLORITE 473 ML SOLUTION TOP ×2 (09:20→21:48)
--- NOTE | 2025-06-03 09:28 | DIET.PN1 ---
Dietary Progress Note Assessment: Pt tolerated TF throughout weekend with added D10 as needed for hypoglycemia. Pt euglycemic and increasing to goal TF rate of 60mL/h today. [facility] to do pump teaching prior to d/c as pt with jejunostomy. Ht: 174.73 cm Wt: 72.1 kg BMI: 22.6 Last BM: 06/03/25 (06/03/25 06:00) MNA: 5 Krishan Score: 13 Diet: 05/29/25 03:51 NPO Diet Diet Modifications: NPO Type: NPO except for Meds 06/02/25 Lunch Tube Feeding Diet Diet Modifications: When Levophed is d/c TF Supplement type: Jevity 1.2 saurav TF mode of delivery: Continuous Starting flow rate mL/hr: 60 Flow rate goal mL/hr: 60 Titration Schedule to reach Goal Rate: - Max total daily volume in mL: 2,500 Free fluid: 150 Free Water Frequency: Q4H Comment: 1 ProSource Protein Packet TID Labs: RBC 2.78 X10^6/uL (4.5-5.9) L 06/03/25 05:00 Hgb 7.5 g/dL (13.5-17.5) L 06/03/25 05:00 Hct 22.6 % (41-53) L 06/03/25 05:00 Creatinine 0.32 mg/dL (0.66-1.25) L 06/03/25 05:00 Lactate 0.8 mmol/L (0.7-2.1) 05/28/25 23:55 Monitoring/Evaluations: following until d/c Electronically Signed by: Laura Interiano 06/03/25 09:28 Clinical Dietitian [address] [id number]
--- NOTE | 2025-06-03 12:49 | P.PN_ITS ---
Subjective Subjective Interval history: Hypoglycemia with poor responsiveness encephalopathy History of present illness: 45-year-old male with a very prolonged hospitalization admitted 05/09 discharged on 05/26 after management of gastric perforation jejunostomy tube placement sepsis aspiration pneumonia and probable adrenal insufficiency. Florinef was discontinued but Solu-Cortef was sent to local pharmacy as well as long-term pharmacy by the discharging physician 05/28: patient's mother reports that the patient was discharged home yesterday and was noted to have altered mental status by the patient's family caregiver. EMS was called and the glucose was in the 20s. IV dextrose given and patient mentation did improve. No reported seizure activity. In the emergency room, the patient remains hemodynamically stable. The patient require D5 to maintain glucose in the 90s. Patient's labs shows a sodium 125 WBC (previously 132) 6.5 hemoglobin 9.3. Per ER physician the peak patient did have a fever. UA was negative and lactate was normal. Chest x-ray shows no signs of pneumonia. CT abdomen and pelvis with IV contrast shows loculated mild bilateral pleural effusion with left greater than right and cholelithiasis with contracted gallbladder. It is recommended that we obtain gallbladder ultrasound after [address] however did not show any acute finding regarding J-tube placement. Empiric IV ceftriaxone and IV Flagyl was given due to finding of contracted gallbladder with cholelithiasis and recent surgery. In addition the patient does take hydrocortisone at home but unclear if the patient has a known able to take it leading to possible hypoglycemia. IV hydrocortisone 100 mg bolus was ordered. Hospital course: 05/29: Patient became hypotensive overnight norepinephrine initiated patient minimally responsive today sodium corrected to 135 from 125 WBC 14.5 hemoglobin 9.1 05/31: Patient is definitely more interactive, moving all his limbs, complaining to the nurses of back pain, etc. compared to when I saw him during his last postop stay. The blood sugars range from 91 up to 145. This is being supported by an IV dextrose infusion. Extensive discussion today regarding dietary/J-tube feeding rates, glucose support, steroid support with brand planner and dietitian. His mother says that he has caregivers support during the day and that she stays with him at night. She declines long-term acute care or fpc facility, which would definitely be safer in this very complicated patient. Currently Jevity is at 45 per hour pending the Levophed being stopped due to concerns of mesenteric ischemia if the rate is increased while on that. The white count yesterday was 14.5 with a hemoglobin of 9.1. The BNP was normal. His skin breakdown on the buttocks is certainly impressive on the pictures reviewed today. He also has a Jones catheter now. Levophed drip to support systolics above 80 continues. Also on midodrine. 06/01: He continues to improve, now a little bit faster than I would have expected. Overnight he was able to stay off the Levophed. One component of that was spacing out the midodrine to 5 mg every 4 hours. We will continue that pattern since it seemed to help. We will be increasing the tube feeding rate up to 60 mL/hr today. Blood sugars on current support range from 91-134. He makes eye contact and he speaks to me for the very 1st time in all the days that I have rounded on him previously. He says ?hello, am I going home? I explained to him that getting the home support system set up and getting his sugars stabilized is expected to take another 1-2 days. He is currently still on the D10 infusion but that should be able to be stopped with the higher tube feeding rate I would expect? We will be rechecking his CBC and metabolic panel tomorrow. 06/02: He is not quite as responsive/interactive with me today but remains verbal and much more aware. The tube feeds are currently at 50 mL/hr and will be increased to 60 today. The D10 will be stopped and we will be monitoring his blood sugars. If they are within normal range and his mental status remains stable he will be discharging back to his home with his mother's supervision and care tomorrow. The white blood count is 3.1 with a hemoglobin of 7.6, down from 9.1. The potassium is 3.1 so he will be started on potassium chloride 20 daily in the tube. The albumin is 2.3. Check an iron level and consider iron infusion. 06/03: The iron level from yesterday is still pending. The hemoglobin is stable at 7.5. The white blood count is 2.6. The potassium is 3.4, up from 3.1 with the 20 mEq daily in the feeding tube. The magnesium level is 1.6. Nursing staff just changed his dressings and report that the sacral duration scab/eschar has turned darker and the left buttock superficial ulceration has matured to a less bright red color. When I tell him that he is going home today he says ?awesome, thanks. ? Subsequently his mother notified the brand planner that she was unable to accommodate/transport him today as she is working but will take the day off tomorrow to take him home. All the arrangements for the tube feeding and home health care have been finalized and the prescriptions have been sent to his mail order pharmacy and should be arriving soon. The lomas factor is to remain on the steroids for the adrenal cortical insufficiency as hypoglycemia (after not getting the Hydrocortisone) was the reason he had altered mental status and returned to the hospital after the last discharge. Symptomatic hypoglycemia with altered mental status on admission. * Now off the D10/D5 and at the 60 mL/hr tube feeding goal. Chronic continuous aspiration into left lung * Strict NPO * All feedings and medications per J-tube goal of 60/h * Scopolamine patch * Oral care plan Persistent hypotension, possible chronic adrenal insufficiency, started on hydrocortisone with 24 hour urinary free cortisol pending * Resumed 20 mg BID hydrocortisone * Resumed fludrocortisone Chronic Anemia * Hgb 9.1 on 05/30, recheck on 06/02 at 7.6 and 06/03 at 7.5. Pending iron level and consider infusion. Follow. History of Peg tube in false lumen, removed, Closure of gastrostomy track and placement of J-tube, active. * Appreciate surgery expertise * Tube feeding well tolerated, increased to 60 mL/hr today. Chronic uncuffed tracheostomy, active. * Chronic management by caregivers Pseudobulbar palsy, and spastic left hemiparesis with long-term tracheostomy and history of recurrent aspiration pneumonia. * Chronic management Pressure ulcer of left buttock, stage 3: * b.i.d. dressing changes with quarter-inch iodoform gauze to the abdominal wound. * b.i.d. wet to dry dressing changes with Dakin's solution to pressure ulcer left buttock. * Continue pressure offloading and nutritional support. * Follow up at wound center after discharge 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DVT prophylaxis * Covered with Eliquis Disposition: * Chronic hospitalization per LTAC would be ideal but patients mother is declining. senior buyer planner and dietitian arranged/confirmed tube feeding, pump, caregiving, 24 hour assistance from family at home. * Current plan is return home today with increased caregiving from family, support from [facility], etc. * Responsible family member noncompliant endangering patient -Severe chronic Protein Calorie Malnutrition ruled in -r/t altered GI tract motility and increased needs (protein) as evidenced by severe muscle wasting in temples and deltoid, severe buccal and orbital subcutaneous fat loss, <60% of estimated protein needs due to malabsorption and wound healing needs for >1 month -Increased nutrient needs (protein) r/t healing needs as evidenced by skin breakdown and wounds The Hypoglycemia and Nutritional Management plan in place includes: * Flushing with 5% dextrose solution 100 mL 5 times a day while continuing the D5 normal saline intravenously to observe whether we meeting patient's glycemic needs and then slowly withdraw the IV support and observe to see if the enteral support meets the glycemic and volume needsCurrent enteral recc is as follows: Continuous Jevity 1.2 at 45 mL/hr with 1 [employer] Protein Packet 5 times per day. Flush 100 mL free water Q4H. Provide 100 g dextrose daily through IV D10 1 L per day.-This meets 1896 kcals (100% kcal needs), 115 g protein (100% of needs), 2770 mL fluids Now that he is off pressors: Advance to Continuous Jevity 1.2 at 60 mL/hr with 1 ProSource Protein Packet TID. Flush 150 mL free water Q4H. Dependent on blood glucose and dextrose needs -This meets 1848 kcals (97% kcal needs), 113 g protein (100% needs), 2242 mL fluids The patient has a permanent impairment and needs enteral nutrition for more than 90 days duration. Enteral nutrition is to be managed by [facility]. Exam Vital Signs (past 8 hours): - 06/03/25 05:00 06/03/25 05:30 06/03/25 06:00 Pulse Rate 64 66 63 Respiratory Rate 20 20 20 Blood Pressure Pulse Oximetry 100 100 100 06/03/25 06:30 06/03/25 07:00 06/03/25 07:30 Pulse Rate 63 62 62 Respiratory Rate 19 19 19 Blood Pressure Pulse Oximetry 100 100 100 06/03/25 08:00 06/03/25 08:21 06/03/25 08:21 Pulse Rate 65 67 Respiratory Rate 19 19 Blood Pressure 112/72 Pulse Oximetry 100 100 06/03/25 08:30 06/03/25 09:40 06/03/25 10:00 Pulse Rate 66 62 66 Respiratory Rate 20 21 20 Blood Pressure Pulse Oximetry 100 100 100 06/03/25 10:30 06/03/25 11:00 06/03/25 11:30 Pulse Rate 64 67 61 Respiratory Rate 19 24 21 Blood Pressure Pulse Oximetry 100 100 100 06/03/25 12:00 Pulse Rate 62 Respiratory Rate 22 Blood Pressure Pulse Oximetry 100 Fraction of Inspired Oxygen 28 SaO2/FiO2 Ratio 353 Oxygen Delivery Method Humidification,Trach Collar Oxygen Flow Rate 7 Narrative Exam Narrative: Alert and oriented. No apparent distress. When I tell him that he is going home today he says ?awesome, thanks?. Heart is regular rate and rhythm without murmur. Lungs are clear to auscultation bilaterally. Abdomen is soft, bowel sounds positive, nontender, scaphoid, steadily healing remaining area on the abdominal incision. Extremities have no ankle edema. His feet are in padded heel boots. Objective Labs 06/03/25 05:00 06/03/25 05:00 Labs: Laboratory Results - last 24 hr 06/02/25 06/03/25 06/03/25 17:46 00:10 05:00 WBC 2.6 L RBC 2.78 L Hgb 7.5 L Hct 22.6 L MCV 81.3 MCH 27.0 MCHC 33.2 RDW 19.1 H Plt Count 291 Neut % (Auto) 61.2 Lymph % (Auto) 27.9 [place] % (Auto) 7.9 Eos % (Auto) 1.7 L Baso % (Auto) 1.3 Neut # (Auto) 1600 Lymph # (Auto) 700 L [place] # (Auto) 200 Eos # (Auto) 0 Baso # (Auto) 0 Sodium 133 L Potassium 3.4 Chloride 101 Carbon Dioxide 31 BUN 15 Creatinine 0.32 L Estimated GFR > 60 BUN/Creatinine Ratio 46.9 H Glucose 86 POC Whole Bld Glucose 103 H 91 Calcium 7.6 L Magnesium 1.6 06/03/25 06/03/25 06:31 12:35 WBC RBC Hgb Hct MCV MCH MCHC RDW Plt Count Neut % (Auto) Lymph % (Auto) [place] % (Auto) Eos % (Auto) Baso % (Auto) Neut # (Auto) Lymph # (Auto) [place] # (Auto) Eos # (Auto) Baso # (Auto) Sodium Potassium Chloride Carbon Dioxide BUN Creatinine Estimated GFR BUN/Creatinine Ratio Glucose POC Whole Bld Glucose [address] H [address] 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 Father No problems noted. Social History marital status: unmarried,single details: Lives independantly with part-time caregivers household members: caregiver lives independently: Yes occupational status: disabled alcohol intake: former substance use type: marijuana Assessment & Plan Time-Based Coding :: [TOTAL MINUTES] spent with patient and on the chart (including review of chart, obtaining history, exam, reviewing outside data, placing orders, documenting exam and treatment plan, and counseling patient) on [DATE].
--- NOTE | 2025-06-03 14:18 | CM.DPC ---
Addendum entered by ARIC Ca 06/03/25 15:00: ADD: Call from Jeremias at [facility] and their RN can do teach and supplies tomorrow 06/04 at 1415 and preference is in the home. Called pt's mom Marianela and updated and she plans to be bedside tomorrow late morning to provide transport for pt to home in time for [facility] to meet with them. Updated . BF Original Note: DCP Home Planning Cont: Per MD, pt could be stable for discharge if all resources in place for successful plan of home and requesting call to Home Health to determine if pt discharged with PICC if it can be pulled in a week by home health and if they can provide condom cath supplies at d/c. Per , meds sent to [facility] in [place] for mail order meds and called them to confirm they received the meds and were processed and sent out for mailing but might take a couple days to get home. Mom and MD confirm pt has his medications at home and will have enough while waiting for [facility] delivery. Called pt's mom Marianela and she confirms she is working today and cannot be bedside in time for enteral feeding pump teach today and will take tomorrow off work and have the van available to transport pt home and will coordinate with [facility] for tomorrow. Marianela states she will be available all day tomorrow . ROBIN called [facility] and spoke to Wendie ([phone]) and she confirmed with their team that their RN can pull a PICC after discharge if in MD's note and they can provide condom cath supplies while pt working with HH. Updated MD. Alerted [facility] of likely discharge home tomorrow, secure emailed updated notes to review. Called [facility] and alerted them to discharge home tomorrow and they will call mom and get pt on their schedule this week. Called Jeremias at [facility] and confirmed they received the Enteral Order Form and faxed prog note with the order information needed for continuous feeds to bill to Medicare. They will get pt on their schedule for tomorrow 06/04 for bedside teach and provide pump and supplies for discharge. Jeremias also confirmed he spoke to pt's mom again today and she remains in agreement. ROBIN called [facility] and cancelled the current orders for enteral feeding and updated them that pt will be using a local company that can do in person teach and provide supplies prior to discharge and they confirmed they had not sent the pump out for delivery yet anyways. [facility] cancelled. Called [facility] CM and left vm on plan of attempting home discharge plan once again and likely d/c home tomorrow Tues. Plan: SW to follow closely for plan of discharge home tomorrow via Mom and w/c van after [facility] bedside teach and supplies and ongoing [facility] for RN/ST for wound care and condom cath and PICC and outpt [facility]. ARIC Ca
--- NOTE | 2025-06-03 18:53 | PC.NURSE ---
Plan for pt to DC tomorrow back home mid morning. Pts mom is coming in for education regarding TF. q2h turning. Multiple runny bms. Full head to to bath with lotion applied. q4h oral care. CC intact. FWF and TF at goal. Blood sugars holding 90-80's
[2025-06-04] VITALS (25 sets, daily range): BP systolic 120–128; BP diastolic 80–82; PULSE 61–75; RESP 19–23; O2SAT 91–100
[2025-06-04] MEDS: MIDODRINE HCL 5 MG TABLET TUBE ×3 (01:04→09:28)
[2025-06-04] MEDS: [UNRECOGNIZED DRUG - OTHER] 1 EACH TUBE ×2 (05:56→11:29)
[2025-06-04] MEDS: metroNIDAZOLE 500 MG/100 ML PIGGYBACK 100 MG IV (05:56)
--- NOTE | 2025-06-04 07:47 | P.DS_ITS ---
History of Present Illness History of Present Illness Date Patient Seen: 06/04/25 Chief complaint: Hypoglycemic Narrative: 45-year-old male with past medical history of cerebral palsy, brain tumor status postradiation treatment and residual right sided hemiparesis and left-sided hemiplegia, tracheostomy, history of pulmonary embolism on Eliquis, depression, chronic anemia and recent admission for G-tube revision was discharged yesterday from the hospital presents with severe hypoglycemia. Of note the patient's mother reports that the patient was discharged home yesterday and was noted to have altered mental status by the patient's family caregiver. EMS was called and the glucose was in the 20s. IV dextrose given and patient mentation did improve. No reported seizure activity. Of note the patient does have intermittent hypoglycemic episode in the past. It is unclear if the patient's revision G-tube was working. In the emergency room, the patient remains hemodynamically stable. The patient require D5 to maintain glucose in the 90s. Patient's labs shows a sodium 125 WBC 6.5 hemoglobin 9.3. Per ER physician the peak patient did have a fever. UA was negative and lactate was normal. Chest x-ray shows no signs of pneumonia. CT abdomen and pelvis with IV contrast shows loculated mild bilateral pleural effusion with left greater than right and cholelithiasis with contracted gallbladder. It is recommended that we obtain gallbladder ultrasound after [address] however did not show any acute finding regarding T2 placement. Empiric IV ceftriaxone and IV Flagyl was given due to finding of contracted gallbladder with cholelithiasis and recent surgery. In addition the patient does take hydrocortisone at home but unclear if the patient has a known able to take it leading to possible hypoglycemia. IV hydrocortisone 100 mg bolus was ordered. Discharge Providers Provider Date of admission: 05/29/25 04:33 Discharge Date: 06/04/25 Primary care physician: Chucky Marshall MD Consults: 05/29/25 03:52 Consult to Dietitian, Adult Stat Comment: Dominique Arteaga tube feeding at home (4) cartoons a day Reason For Exam: tube feeding 05/29/25 03:57 Consult to Discharge Planning Routine Comment: 05/29/25 03:58 Consult to Physical Therapy Evaluate & Treat Comment: Physician Instructions: Evaluate and Treat 05/29/25 12:01 Consult to Wound Care Routine Comment: Consulting Provider: [facility] 05/31/25 10:52 Consult to Dietitian, Adult Routine Comment: Reason For Exam: tube feed Discharge provider: Bartolome Lockhart MD Summary Hospital Course Hospital Course: Hypoglycemia with poor responsiveness encephalopathy Hospital course: 05/29: Patient became hypotensive overnight norepinephrine initiated patient minimally responsive today sodium corrected to 135 from 125 WBC 14.5 hemoglobin 9.1 05/31: Patient is definitely more interactive, moving all his limbs, complaining to the nurses of back pain, etc. compared to when I saw him during his last postop stay. The blood sugars range from 91 up to 145. This is being supported by an IV dextrose infusion. Extensive discussion today regarding dietary/J-tube feeding rates, glucose support, steroid support with city planner and dietitian. His mother says that he has caregivers support during the day and that she stays with him at night. She declines long-term acute care or detention facility, which would definitely be safer in this very complicated patient. Currently Jevity is at 45 per hour pending the Levophed being stopped due to concerns of mesenteric ischemia if the rate is increased while on that. The white count yesterday was 14.5 with a hemoglobin of 9.1. The BNP was normal. His skin breakdown on the buttocks is certainly impressive on the pictures reviewed today. He also has a Jones catheter now. Levophed drip to support systolics above 80 continues. Also on midodrine. 06/01: He continues to improve, now a little bit faster than I would have expected. Overnight he was able to stay off the Levophed. One component of that was spacing out the midodrine to 5 mg every 4 hours. We will continue that pattern since it seemed to help. We will be increasing the tube feeding rate up to 60 mL/hr today. Blood sugars on current support range from 91-134. He makes eye contact and he speaks to me for the very 1st time in all the days that I have rounded on him previously. He says ?helsteph, am I going home? I explained to him that getting the home support system set up and getting his sugars stabilized is expected to take another 1-2 days. He is currently still on the D10 infusion but that should be able to be stopped with the higher tube feeding rate I would expect? We will be rechecking his CBC and metabolic panel tomorrow. 06/02: He is not quite as responsive/interactive with me today but remains verbal and much more aware. The tube feeds are currently at 50 mL/hr and will be increased to 60 today. The D10 will be stopped and we will be monitoring his blood sugars. If they are within normal range and his mental status remains stable he will be discharging back to his home with his mother's supervision and care tomorrow. The white blood count is 3.1 with a hemoglobin of 7.6, down from 9.1. The potassium is 3.1 so he will be started on potassium chloride 20 daily in the tube. The albumin is 2.3. Check an iron level and consider iron infusion. 06/03: The iron level from yesterday is still pending. The hemoglobin is stable at 7.5. The white blood count is 2.6. The potassium is 3.4, up from 3.1 with the 20 mEq daily in the feeding tube. The magnesium level is 1.6. Nursing staff just changed his dressings and report that the sacral duration scab/eschar has turned darker and the left buttock superficial ulceration has matured to a less bright red color. When I tell him that he is going home today he says ?awesome, thanks. ? Subsequently his mother notified the city planner that she was unable to accommodate/transport him today as she is working but will take the day off tomorrow to take him home. All the arrangements for the tube feeding and home health care have been finalized and the prescriptions have been sent to his mail order pharmacy and should be arriving soon. The lomas factor is to remain on the steroids for the adrenal cortical insufficiency as hypoglycemia (after not getting the Hydrocortisone) was the reason he had altered mental status and returned to the hospital after the last discharge. 06/04: The iron level from 06/02 has not been resulted yet due to a lab reagent shortage. The patient was unable to discharge yesterday as his family was not able to transport him/meet him at home. His mother is scheduled to meet him along with caregivers at home for [facility] tube feeding instructions and [facility] visits and wound care to resume. Symptomatic hypoglycemia with altered mental status on admission. * Now off the D10/D5 and at the 60 mL/hr tube feeding goal. Chronic continuous aspiration into left lung * Strict NPO * All feedings and medications per J-tube goal of 60/h * Scopolamine patch * Oral care plan Persistent hypotension, possible chronic adrenal insufficiency, started on hydrocortisone with 24 hour urinary free cortisol level of 3. * Resumed 20 mg BID hydrocortisone * Resumed fludrocortisone Chronic Anemia * Hgb 9.1 on 05/30, recheck on 06/02 at 7.6 and 06/03 at 7.5. Pending iron level from 06/02 (lab reagent shortage) History of Peg tube in false lumen, removed, Closure of gastrostomy track and placement of J-tube, active. * Appreciate surgery expertise * Tube feeding well tolerated, increased to 60 mL/hr Chronic uncuffed tracheostomy, active. * Chronic management by caregivers Pseudobulbar palsy, and spastic left hemiparesis with long-term tracheostomy and history of recurrent aspiration pneumonia. * Chronic management Pressure ulcer of left buttock, stage 3: * b.i.d. dressing changes with quarter-inch iodoform gauze to the abdominal wound. * b.i.d. wet to dry dressing changes with Dakin's solution to pressure ulcer left buttock. * Continue pressure offloading and nutritional support. * Follow up at wound center and with wound care nurse after discharge 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DVT prophylaxis * Covered with Eliquis Disposition: * Chronic hospitalization per LTAC would be ideal but patients mother is declining. cyber intel planner and dietitian arranged/confirmed tube feeding, pump, caregiving, 24 hour assistance from family at home. * Current plan is return home today with increased caregiving from family, support from [facility], etc. * Responsible family member noncompliant endangering patient Severe chronic Protein Calorie Malnutrition ruled in -r/t altered GI tract motility and increased needs (protein) as evidenced by severe muscle wasting in temples and deltoid, severe buccal and orbital subcutaneous fat loss, <60% of estimated protein needs due to malabsorption and wound healing needs for >1 month -Increased nutrient needs (protein) r/t healing needs as evidenced by skin breakdown and wounds The Hypoglycemia and Nutritional Management plan used during this hospitalization was: * Flushing with 5% dextrose solution 100 mL 5 times a day while continuing the D5 normal saline intravenously to observe whether we meeting patient's glycemic needs and then slowly withdraw the IV support and observe to see if the enteral support meets the glycemic and volume needsCurrent enteral recc is as follows: Continuous Jevity 1.2 at 45 mL/hr with 1 ProSource Protein Packet 5 times per day. Flush 100 mL free water Q4H. Provide 100 g dextrose daily through IV D10 1 L per day.-This meets 1896 kcals (100% kcal needs), 115 g protein (100% of needs), 2770 mL fluids Now that he is off pressors: Advance to Continuous Jevity 1.2 at 60 mL/hr with 1 ProSource Protein Packet TID. Flush 150 mL free water Q4H. Dependent on blood glucose and dextrose needs -This meets 1848 kcals (97% kcal needs), 113 g protein (100% needs), 2242 mL fluids The patient has a permanent impairment and needs enteral nutrition for more than 90 days duration. Enteral nutrition is to be managed by [facility] incorporated. Instructions for [facility] after discharge: Remove PICC line on 06/11/2025. Wound care nurse to follow twice a week. Caregivers to manage wounds based on wound care nurse instructions. Provide condom catheterization supplies to avoid further urine exposure to the slowly healing sacral and ischial skin wounds. Continue Jevity 1.2 (or equivalent home formula) 60 mL/hr continuous using a pump with 1 ProSource protein packet t.i.d. in the J-tube. Flush 150 mL free water q.4 hours. Status at Discharge Cognitive/behavioral status at discharge: at baseline, confused Functional status at discharge: bed bound Overall status at discharge: patient is progressing back to baseline Time Spent with Patient Time spent: Greater than 30 minutes Exam Vital Signs (past 8 hours): - 06/04/25 00:00 06/04/25 00:30 06/04/25 01:00 Pulse Rate 68 70 71 Respiratory Rate 21 21 21 Pulse Oximetry 100 100 100 06/04/25 01:30 06/04/25 02:00 06/04/25 02:30 Pulse Rate 75 67 64 Respiratory Rate 21 20 Pulse Oximetry 100 100 100 06/04/25 03:00 06/04/25 03:30 06/04/25 04:00 Pulse Rate 63 64 63 Respiratory Rate 21 22 20 Pulse Oximetry 100 99 99 06/04/25 04:30 06/04/25 05:00 06/04/25 05:30 Pulse Rate 66 71 71 Respiratory Rate 19 20 20 Pulse Oximetry 100 100 98 Fraction of Inspired Oxygen 28 SaO2/FiO2 Ratio 353 Oxygen Delivery Method Humidification,Trach Collar Oxygen Flow Rate 7 Objective Labs 06/03/25 05:00 06/03/25 05:00 Labs: Laboratory Results - last 24 hr 06/03/25 06/03/25 06/04/25 12:35 18:25 00:29 POC Whole Bld Glucose 91 83 105 H 06/04/25 06:18 POC Whole Bld Glucose 94 PFSH Medical History Excessive cerumen in both ear canals Chronic anticoagulation Iron deficiency anemia History of pulmonary embolism Status post radiation therapy Chronic anticoagulation Tracheostomy in place Sacral decubitus ulcer, stage III Protein calorie malnutrition Hyponatremia Dysphagia Recurrent aspiration pneumonia Depression, major, recurrent Jejunostomy tube present Influenza A Anemia Pneumonia 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 Father No problems noted. Social History marital status: unmarried,single details: Lives independantly with part-time caregivers household members: caregiver lives independently: Yes occupational status: disabled Smoking Status: Former smoker alcohol intake: former substance use type: marijuana Discharge Plan Discharge Plan Patient Disposition: Home Health Service Transfer to: [facility] Provider Discharge Comment: Follow up with Dr. Marshall in 1-2 weeks. Discharge orders & Medications Prescriptions: New midodrine 5 mg Tablet 5 mg TUBE Q4HR Qty: 100 0RF oxycodone 5 mg/5 mL Solution 5 mg TUBE Q4HR PRN (Reason: Pain, Moderate (4-6)) Qty: 60 0RF potassium chloride 20 mEq/15 mL Liquid 20 meq TUBE DAILY Qty: 500 0RF hydrocortisone [Cortef] 10 mg Tablet 20 mg PO BID Qty: 120 0RF fludrocortisone 0.1 mg Tablet 0.1 mg PO DAILY Qty: 100 0RF Dakin's Solution 0.125 % Solution 1 ml topical BID Qty: 100 0RF Continued ferrous sulfate 325 mg (65 mg iron) tablet 130 mg PO DAILY baclofen 5 mg/5 mL solution 5 mg PO DAILY Qty: 473 3RF Rx Instructions: Give 5mL via J-tube Eliquis 5 mg tablet 5 mg PO BID Qty: 60 12RF folic acid 1 mg tablet 1 mg PO DAILY Qty: 90 3RF scopolamine base 1 mg over 3 days patch 3 day 1 patch topical Q3D Qty: 24 1RF sodium chloride 0.9 % solution for nebulization 2.5 ml inhalation Q12H PRN (Reason: shortness of breath or wheezing) Qty: 300 0RF sertraline 100 mg tablet 200 mg PO DAILY Qty: 60 2RF Banatrol Plus Powder In Packet 1 ea PO 4XD Qty: 450 3RF Glucagon Emergency Kit (human) 1 mg recon soln 1 mg IM ONCE Discontinued midodrine 10 mg tablet 10 mg feeding tube Q8H Qty: 270 1RF hydrocortisone [Cortef] 10 mg Tablet 10 mg PO DAILY Qty: 30 11RF hydrocortisone 10 mg tablet 10 mg PO DAILY Qty: 30 11RF No Action (DME) XL mattress for semi-electric hospital bed See Rx Instructions .Route .MEDSUPPLY Qty: 1 0RF Rx Instructions: use daily as directed (DME) Disabled Parking Qty: 1 0RF Rx Instructions: I find this patient to be medically disabled and qualified for Disabled Parking as indicated, and signed, on the Accompanying Disabled Parking Application for Individuals (DME) Battery Powered Lift Qty: 1 0RF Dose Instruction: As directed Rx Instructions: Use daily as directed for transfers to and from bed (DME) Power Chair tall Qty: 1 0RF Dose Instruction: As directed Rx Instructions: As directed for patient care with activities of daily living. Chair needs to tilt foreword and tilt backwards for patient care. Pt is 6 feet tall and will need to fit height. (DME) Shower Chair Qty: 1 0RF Rx Instructions: As directed for patient care with activities of daily living. Chair needs to tilt foreword and tilt backwards for patient care. Pt is 6 feet tall and will need to fit height. (DME) Semi-electric hospital bed Qty: 1 0RF Dose Instruction: As directed Rx Instructions: Semi-electric hospital bed to permit transfers to wheelchair and to attach traction equipment. Must be large enough and long enough to accommodate his height and weight. EDEN: 99 months (DME) Mattress See Rx Instructions .Route .MEDSUPPLY Qty: 1 0RF Rx Instructions: Long mattress for hospital bed (DME) Lingraphica Communication Device See Rx Instructions .Route .MEDSUPPLY Qty: 1 0RF Rx Instructions: Evaluation for speech generating device. See online submission form for free trial of device. (DME) suction catheter kit See Rx Instructions .Route .MEDSUPPLY Qty: 5 4RF Rx Instructions: NoahElepago suction catheter (or equivalent) equipement and disposable. [employer] DME supply (DME) BD Luer-Rafael Syringe 3 mL 20 gauge x 1 syringe See Rx Instructions .ROUTE .MEDSUPPLY Qty: 1 Patient Comments: USE FOR MUCOMYST Rx Instructions: As directed (DME) blood-glucose meter [True Metrix Air Glucose Meter] Misc See Rx Instructions .ROUTE DAILY Qty: 1 Rx Instructions: As directed Follow up/Referrals: Chucky Marshall MD [Primary Care Provider, Internal Medicine] Diet/Activity/Treatments Diet: Nothing by Mouth Visit Report/Discharge Packet Stand Alone Forms: Patient Portal/API, Stroke Signs & Symptoms Discharge Data Primary Care Provider: Chucky Marshall V
[2025-06-04] MEDS: SCOPOLAMINE 1 PATCH TOP (08:39)
[2025-06-04] MEDS: APIXABAN 5 MG TABLET PO (09:27)
[2025-06-04] MEDS: FERROUS SULFATE 325 MG TABLET PO (09:27)
[2025-06-04] MEDS: FOLIC ACID 1 MG TABLET PO (09:28)
[2025-06-04] MEDS: POTASSIUM CHLORIDE 20 MEQ/15 ML UDC TUBE (09:28)
[2025-06-04] MEDS: SERTRALINE 50 MG TABLET 200 MG PO (09:28)
[2025-06-04] MEDS: HYDROCORTISONE 10 MG TABLET 20 MG PO (09:28)
[2025-06-04] MEDS: BACLOFEN 10 MG TABLET 5 MG PO (09:35)
[2025-06-04] MEDS: FLUDROCORTISONE 0.1 MG TABLET PO (09:35)
--- NOTE | 2025-06-04 10:20 | CM.DPC ---
DCP Cont. Reviewed EMR and team rounds for pt's medical status and updates. Pt has been medically cleared for d/c. His mom will transport him home late morning in order to be home in time for their 2:15pm pump teaching with [facility]. No further CM d/c or assistance needs are identified at this time.
[2025-06-04] MEDS: SODIUM HYPOCHLORITE 473 ML SOLUTION TOP (11:10)
--- NOTE | 2025-06-04 11:15 | PC.WOUNDPHOT ---
Wound Photos All photos taken today (06/04) by Jose Cruz GREER.
--- NOTE | 2025-06-04 13:16 | CM.DPNOTE ---
DCP Note CC Nupur KINDLY agreed to send dc summary to [facility] and dc summary, order, and f2f to [facility]. ANIMAL KEEPER completed f2f and HH order. ARIC Rebolledo
--- NOTE | 2025-06-04 13:32 | PC.NURSE ---
Shift summary: Patient required full linen change twice this morning for stool incontinence. Dressings (x3) right buttocks, left buttocks and abdomen changed today prior to discharge per wound care instructions. Updated photos taken during dressing change. Oral care and oral suctioning provided. NPO maintained. Continuous tube feedings were in place as ordered, upon discharge stopped and J tube flushed with 30cc water and stop cock closed. PICC line to JESSENIA intact, dressing changed. PICC line is to be maintained and dc'd by HH nurse as ordered. Trach care completed by Remington SHEEHAN this morning. Patient's mother Marianela here with patient's electric WC to pick patient up. Discharge instructions reviewed with Marianela, she states understanding. She state she has no further questions or concerns at this time. Marianela states she is meeting with [facility] today to get tube feeding/nutrition set up. Patient is to follow up with PCP 1 week. Escorted out to discharge to home with his mom.
[2025-06-05 14:34] LABS: Iron 35 ug/dL (49-181); Percent Iron Saturation 19 % (20-50)
== END 2025-06-04 13:40 | disposition home health service (06) | DRG 640 ==
LOC: ED 05-29 03:56 → AC 05-29 04:39 → ICU 05-29 07:56
PROVIDERS: Family Medicine; Internal Medicine; Pharmacist Pharmacist Clinician (PhC)/ Clinical Pharmacy Specialist; Admitting Provider Internal Medicine; Emergency Provider Emergency Medicine; Family Provider Internal Medicine; PCP Internal Medicine; Referring Provider Emergency Medicine; Visit Provider Internal Medicine
DX: E16.2 Hypoglycemia, unspecified (principal); E43 Unspecified severe protein-calorie malnutrition; L89.323 Pressure ulcer of left buttock, stage 3; E87.1 Hypo-osmolality and hyponatremia; E27.40 Unspecified adrenocortical insufficiency; J90 Pleural effusion, not elsewhere classified; T81.321A Disruption or dehiscence of closure of internal operation (surgical) wound of abdominal wall muscle or fascia, initial encounter; G12.29 Other motor neuron disease; G80.2 Spastic hemiplegic cerebral palsy; G93.40 Encephalopathy, unspecified; E86.0 Dehydration; F32.A Depression, unspecified; I95.9 Hypotension, unspecified; D50.9 Iron deficiency anemia, unspecified; R13.10 Dysphagia, unspecified; K80.50 Calculus of bile duct without cholangitis or cholecystitis without obstruction; Z68.23 Body mass index [BMI] 23.0-23.9, adult; Z93.0 Tracheostomy status; Z86.711 Personal history of pulmonary embolism; Z79.01 Long term (current) use of anticoagulants; Z86.73 Personal history of transient ischemic attack (TIA), and cerebral infarction without residual deficits; Z93.4 Other artificial openings of gastrointestinal tract status; Z87.01 Personal history of pneumonia (recurrent); Z87.891 Personal history of nicotine dependence; Z99.3 Dependence on wheelchair; Z86.69 Personal history of other diseases of the nervous system and sense organs
CPT/HCPCS: 36415; 36569; 36592; 71045; 74177; 76705; 80048; 80053; 81001; 82550; 82962; 83525; 83540; 83550; 83605; 83690; 83735; 84484; 84681; 85025; 87040; 87637; 87797; 93005; 94640; 94667; 94762; 94799; 96365; 96366; 96375; 99233; 99284; 99291; J0696; J1642; J1720; Q9967

== ENCOUNTER 2025-06-14 13:15 | Emergency (ER) | payer MEDICARE, MEDICAID, OTHER, SELFPAY ==
[2025-05-27 09:05] VITALS: PULSE 89; RESP 16; O2SAT 100
[2025-05-29 13:40] VITALS: BMI 22.6
[2025-06-14] VITALS (156 sets, daily range): BP systolic 58–112; BP diastolic 40–81; PULSE 101–131; RESP 9–66; TEMP 35.7–37.2; O2SAT 77–100
--- NOTE | 2025-06-14 13:30 | EKG_ITS ---
[address] [address] Test Date: 2025-06-14 Pat Name: Jonnie Christopher Department: Room: Gender: Male Director Foundation: JUMANA : 1980 Requested By: Order Number: [id number] Reading MD: Daniel Zamora MD Measurements Intervals Hope Rate: 125 P: 87 MN: 128 QRS: 90 QRSD: 62 T: 64 QT: 296 QTc: 427 Interpretive Statements Sinus tachycardia Rightward axis Anterior infarct , age undetermined Electronically Signed On 06-14-2025 13:39:50 PDT by Daniel Zamora MD
--- NOTE | 2025-06-14 13:30 | DI.RAD.S_ITS ---
PROCEDURE: XR ABDOMEN 1V INDICATIONS: abd pain TECHNIQUE: One view of the abdomen acquired. COMPARISON: [facility], CT, CT ABDOMEN PELVIS W CON, 05/29/2025, 2:18. [facility], CR, XR ABDOMEN 1V, 05/09/2025, 0:32. FINDINGS: Surgical changes and devices: Jejunostomy tube Bowel: Bowel gas pattern is normal. Moderately large rectal fecal debris. Soft tissues: No suspicious abdominal calcifications. Visualized solid organ contours appear normal in size. Bones: No suspicious bony lesions. Severe bilateral hip degenerative arthritis. IMPRESSION: Normal bowel gas pattern, moderately large fecal debris. Dictated by: Simón Boyer M.D. on 06/14/2025 at 14:44 Approved by: Simón Boyer M.D. on 06/14/2025 at 14:46
--- NOTE | 2025-06-14 13:30 | DI.RAD.S_ITS ---
PROCEDURE: XR CHEST 1V INDICATIONS: abd pain TECHNIQUE: One view of the chest was acquired. COMPARISON: [facility], CR, XR CHEST FOR PICC 1V, 05/30/2025, 9:04. FINDINGS: Surgical changes and devices: Tracheostomy collar, right arm PICC line Lungs and pleura: Chronic deformity of the chest with chronic decreased left hemithorax volume and chronic left lung interstitial changes. Right lung is clear. Mediastinum: Mediastinal contours appear normal. Heart size is normal. Bones and chest wall: No suspicious bony lesions. Overlying soft tissues appear unremarkable. IMPRESSION: No significant change in pulmonary status. Dictated by: Simón Boyer M.D. on 06/14/2025 at 14:46 Approved by: Simón Boyer M.D. on 06/14/2025 at 14:47
--- NOTE | 2025-06-14 13:33 | ED.ABDPAIN ---
HPI - Abdominal Pain <Bassam Llamsa MD - Last Filed: 06/18/25 07:42> General Chief Complaint: Neuro Symptoms/Deficit Stated Complaint: Altered mental status Time Seen by Provider: 06/14/25 13:25 Mode of arrival: EMS History of Present Illness HPI narrative: Patient brought in by ambulance from home for complaints of abdominal pain. Patient recently had G-tube placed. Patient has history of trach. Patient has history of cerebral palsy history of pulmonary embolism patient recently had G-tube replacement in April here. Mother at bedside. States that patient complained of shortness of breath at home and is the reason why he is here today. Vital signs noted. Patient is not stable to go cat scan imaging at this time. X-ray imaging will be ordered for chest and abdomen. Sepsis protocol has been initiated. Related Data Home Medications ?Medication ?Instructions ?Recorded ?Confirmed ferrous sulfate 325 mg (65 mg 130 mg PO DAILY 10/29/21 06/06/25 iron) tablet syringe with needle 3 mL 20 gauge #1 ea 08/10/23 06/06/25 x 1 (BD Luer-Rafael Syringe) blood-glucose meter (True Metrix #1 ea 12/05/24 06/06/25 Air Glucose Meter) glucagon 1 mg solution for 1 mg IM ONCE 12/05/24 06/06/25 injection (Glucagon Emergency Kit) vitamin A and D 1 applic topical 6XD PRN 06/06/25 06/06/25 zinc oxide-cod liver oil topical ea topical 06/06/25 06/06/25 ointment Previous Rx's ?Medication ?Instructions ?Recorded Battery Powered Lift #1 ea 03/02/18 Power Chair #1 ea 10/16/18 Disabled Parking #1 ea 01/15/19 Shower Chair #1 ea 07/04/19 XL mattress for semi-electric #1 ea 09/27/22 hospital bed baclofen 5 mg/5 mL oral solution 5 mg (5 mL) PO DAILY #473 mL 01/20/23 Mattress #1 ea 03/28/24 Semi-electric hospital bed #1 ea 03/28/24 apixaban 5 mg tablet (Eliquis) 5 mg PO BID #60 tabs 08/15/24 folic acid 1 mg tablet 1 mg PO DAILY #90 tabs 12/13/24 Lingraphica Communication Device #1 ea 01/23/25 scopolamine base 1 mg over 3 days 1 patch topical Q3D #24 ea 03/15/25 transdermal patch sodium chloride 0.9 % for 2.5 ml inhalation Q12H PRN 03/15/25 nebulization shortness of breath or wheezing #300 mL suction catheter kit #5 ea 03/20/25 sertraline 100 mg tablet 200 mg (2 x 100 mg) PO DAILY #60 05/01/25 tabs banana 1 ea PO 4XD #450 ea 05/02/25 flakes-transgalactooligosaccharide oral powder packet (Banatrol Plus oral powder packet) fludrocortisone 0.1 mg tablet 0.1 mg PO DAILY #100 tabs 06/03/25 hydrocortisone 10 mg tablet 20 mg (2 x 10 mg) PO BID #120 tabs 06/03/25 (Cortef) midodrine 5 mg tablet 5 mg TUBE Q4HR #100 tabs 06/03/25 oxycodone 5 mg/5 mL oral solution 5 mg (5 mL) TUBE Q4HR PRN Pain, 06/03/25 Moderate (4-6) #60 mL potassium chloride 20 mEq/15 mL 20 meq (15 mL) TUBE DAILY #500 mL 06/03/25 oral liquid sodium hypochlorite 0.125 % 1 ml topical BID #100 mL 06/03/25 solution (Dakin's Solution) Allergies Allergy/AdvReac Type Severity Reaction Status Date / Time Penicillins (PENICILLINS) Allergy Severe RASH Verified 06/14/25 13:26 levofloxacin Allergy Intermediate Rash Verified 06/14/25 13:26 Review of Systems <Bassam Llamas MD - Last Filed: 06/18/25 07:42> Review of Systems Narrative: GENERAL: Negative chills, fatigue, malaise, fever, sweats. HEENT: Negative sinus pain, ear pain, sore throat RESPIRATORY: Positive dyspnea, negative cough CARDIOVASCULAR: Negative chest pain, palpitations GASTROINTESTINAL: Negative vomiting, nausea, positive GI bleed positive abdominal pain : Negative dysuria, frequency, hematuria MUSCULOSKELETAL: Negative muscle or bony pain SKIN: Negative rash, skin lesions NEUROLOGIC: Negative weakness, numbness ROS Unobtainable: All systems reviewed & are unremarkable except as noted in HPI and below Patient History <Bassam Llamas MD - Last Filed: 06/18/25 07:42> Medical History (Updated 06/14/25 @ 18:27 by Dinora Dasilva MD) Chronic adrenal insufficiency Chronic anticoagulation Iron deficiency anemia History of pulmonary embolism Status post radiation therapy Chronic anticoagulation Tracheostomy in place Sacral decubitus ulcer, stage III Protein calorie malnutrition Hyponatremia Dysphagia Recurrent aspiration pneumonia Depression, major, recurrent Jejunostomy tube present Influenza A Anemia Pneumonia 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 Father No problems noted. Social History marital status: unmarried,single details: Lives independantly with part-time caregivers household members: caregiver lives independently: Yes occupational status: disabled alcohol intake: former substance use type: marijuana alcohol intake frequency: 0-2 drinks per day Exam <Bassam Llamas MD - Last Filed: 06/18/25 07:42> Narrative Exam Narrative: GENERAL: in no distress, not toxic not dyspneic HEAD: Normocephalic. EYES: Pupils equal round ENT: Mucous membranes moist. NECK: Trachea midline. CARDIOVASCULAR: Regular rate and rhythm RESPIRATORY: Diminished lung sounds at the bases bilaterally. Coarse lung sounds. GASTROINTESTINAL: Abdomen soft, flat, bowel sounds are present. Feeding tube appears to be in place. Patient is Hemoccult positive EXTREMITIES: No gross deformities. NEURO: Patient is awake. Does follow commands at times. SKIN: Warm and dry PSYCH: Not anxious, is cooperative Initial Vital Signs Initial Vital Signs: Vital Signs Pulse Rate 124 H 06/14/25 13:15 Respiratory Rate 36 H 06/14/25 13:15 Pulse Oximetry 92 06/14/25 13:15 Oxygen Delivery Method Trach Collar 06/14/25 13:15 Oxygen Flow Rate 12 06/14/25 13:15 Fraction of Inspired Oxygen 45 06/14/25 13:15 <Dinora Dasilva MD - Last Filed: 06/14/25 23:30> Initial Vital Signs Initial Vital Signs: Vital Signs Pulse Rate 124 H 06/14/25 13:15 Respiratory Rate 36 H 06/14/25 13:15 Pulse Oximetry 92 06/14/25 13:15 Oxygen Delivery Method Trach Collar 06/14/25 13:15 Oxygen Flow Rate 12 06/14/25 13:15 Fraction of Inspired Oxygen 45 06/14/25 13:15 Course <Bassam Llamas MD - Last Filed: 06/18/25 07:42> Orders Ordered: Discontinued Medications Cefepime HCl 2 gm/ Sodium (Chloride) 100 mls @ 200 mls/hr IV NOW ONE Stop: 06/14/25 13:31 Last Infusion: 06/14/25 15:03 Dose: Infused Documented By: Admin: 06/14/25 14:17 Dose: 200 mls/hr Documented By: JIMBO Sodium Chloride (Normal Saline 0.9%) 2,000.34 mls @ 666.78 mls/hr 30 ml/kg infuse over 3 hr (2000.34 ml) IV NOW ONE Stop: 06/14/25 16:40 Last Infusion: 06/14/25 16:22 Dose: Infused Documented By: Admin: 06/14/25 13:44 Dose: 666.78 mls/hr Documented By: JIMBO NOREPINEPHRINE BITARTRATE/D5W (Levophed) 4 mg in 250 mls @ 25.004 mls/hr IV TITRATE JOSE MANUEL; Protocol Last Titration: 06/14/25 23:33 Dose: 0.38 mcg/kg/min, 95.016 mls/hr Documented By: Titration: 06/14/25 23:29 Dose: 0.38 mcg/kg/min, 95.016 mls/hr Documented By: Titration: 06/14/25 23:26 Dose: 0.36 mcg/kg/min, 90.015 mls/hr Documented By: Titration: 06/14/25 23:24 Dose: 0.34 mcg/kg/min, 85.014 mls/hr Documented By: Titration: 06/14/25 23:18 Dose: 0.32 mcg/kg/min, 80.014 mls/hr Documented By: Titration: 06/14/25 23:15 Dose: 0.3 mcg/kg/min, 75.013 mls/hr Documented By: Titration: 06/14/25 23:13 Dose: 0.27 mcg/kg/min, 67.511 mls/hr Documented By: Titration: 06/14/25 23:05 Dose: 0.25 mcg/kg/min, 62.511 mls/hr Documented By: Titration: 06/14/25 23:00 Dose: 0.23 mcg/kg/min, 57.51 mls/hr Documented By: Titration: 06/14/25 22:56 Dose: 0.21 mcg/kg/min, 52.509 mls/hr Documented By: Admin: 06/14/25 21:30 Dose: 0.19 mcg/kg/min, 47.508 mls/hr Documented By: Titration: 06/14/25 21:30 Dose: Infused Documented By: Titration: 06/14/25 20:43 Dose: 0.19 mcg/kg/min, 47.508 mls/hr Documented By: Titration: 06/14/25 18:13 Dose: 0.17 mcg/kg/min, 42.507 mls/hr Documented By: Titration: 06/14/25 18:05 Dose: 0.15 mcg/kg/min, 37.506 mls/hr Documented By: Titration: 06/14/25 16:22 Dose: 0.1 mcg/kg/min, 25.004 mls/hr Documented By: Titration: 06/14/25 15:25 Dose: 0.15 mcg/kg/min, 37.506 mls/hr Documented By: Admin: 06/14/25 15:06 Dose: 0.1 mcg/kg/min, 25.004 mls/hr Documented By: JIMBO Sodium Chloride (Normal Saline 0.9%) 1,000 mls @ 150 mls/hr IV CONT JOSE MANUEL Last Infusion: 06/14/25 19:26 Dose: Infused Documented By: Infusion: 06/14/25 18:18 Dose: 999 mls/hr Documented By: Admin: 06/14/25 18:06 Dose: 150 mls/hr Documented By: JIMBO Sodium Chloride (Normal Saline 0.9%) 1,000 mls @ 1,000 mls/hr IV BOLUS ONE Stop: 06/14/25 17:17 Last Infusion: 06/14/25 18:05 Dose: Infused Documented By: Admin: 06/14/25 16:23 Dose: 1,000 mls/hr Documented By: JIMBO Vancomycin HCl (Vancomycin) 1,250 mg in 250 mls @ 250 mls/hr IV NOW ONE Stop: 06/14/25 19:31 Last Infusion: 06/14/25 20:33 Dose: Infused Documented By: Admin: 06/14/25 19:14 Dose: 250 mls/hr Documented By: JIMBO Vancomycin HCl (Vancomycin) 1,250 mg in 250 mls @ 250 mls/hr IV Q12H JOSE MANUEL Sodium Chloride (Normal Saline 0.9%) 1,000 mls @ 150 mls/hr IV CONT JOSE MANUEL Last Infusion: 06/14/25 23:33 Dose: 150 mls/hr Documented By: Admin: 06/14/25 19:26 Dose: 150 mls/hr Documented By: JIMBO Acetaminophen (Ofirmev) 750 mg in 75 mls @ 150 mls/hr IV Q6H PRN PRN Reason: FEVER/DISC Acetaminophen (Ofirmev) 1,000 mg in 100 mls @ 400 mls/hr IV NOW ONE Stop: 06/14/25 21:03 Last Infusion: 06/14/25 21:13 Dose: Infused Documented By: Admin: 06/14/25 20:54 Dose: 400 mls/hr Documented By: SHERINE Vasopressin 40 unit/ Sodium (Chloride) 102 mls @ 4.5 mls/hr IV CONT JOSE MANUEL Last Infusion: 06/15/25 00:10 Dose: 4.5 mls/hr Documented By: Admin: 06/14/25 23:52 Dose: 4.5 mls/hr Documented By: SHERINE Vancomycin HCl (Vancomycin Per Pharmacy) 1 request MISC NOW ONE Stop: 06/14/25 18:29 Last Admin: 06/14/25 19:25 Dose: Not Given Documented By: JIMBO Vital Signs Vital signs: Vital Signs - 8 hr 06/14/25 15:30 06/14/25 15:30 06/14/25 15:35 Temperature 98.6 F 98.4 F Pulse Rate 120 H 123 H Respiratory Rate 32 H 34 H Blood Pressure 112/70 Pulse Oximetry 98 98 Oxygen Delivery Method Oxygen Flow Rate Fraction of Inspired Oxygen 06/14/25 15:36 06/14/25 15:36 06/14/25 15:40 Temperature 98.4 F Pulse Rate 123 H Respiratory Rate 35 H Blood Pressure 110/81 94/67 Pulse Oximetry 98 Oxygen Delivery Method Oxygen Flow Rate Fraction of Inspired Oxygen 06/14/25 15:40 06/14/25 15:45 06/14/25 15:45 Temperature 98.4 F 98.2 F Pulse Rate 126 H 119 H Respiratory Rate 36 H 35 H Blood Pressure 96/72 Pulse Oximetry 100 100 Oxygen Delivery Method Oxygen Flow Rate Fraction of Inspired Oxygen 06/14/25 15:46 06/14/25 15:50 06/14/25 15:50 Temperature 98.1 F Pulse Rate 119 H Respiratory Rate 32 H 37 H Blood Pressure 101/72 Pulse Oximetry 93 100 Oxygen Delivery Method Trach Collar Oxygen Flow Rate 15 Fraction of Inspired Oxygen 100 06/14/25 15:55 06/14/25 15:55 06/14/25 16:00 Temperature 98.1 F 98.1 F Pulse Rate 118 H 119 H Respiratory Rate 18 35 H Blood Pressure 111/68 Pulse Oximetry 100 Oxygen Delivery Method Oxygen Flow Rate Fraction of Inspired Oxygen 06/14/25 16:05 06/14/25 16:05 06/14/25 16:10 Temperature 97.9 F 97.9 F Pulse Rate 122 H 125 H Respiratory Rate 34 H 35 H Blood Pressure 107/72 Pulse Oximetry 95 Oxygen Delivery Method Oxygen Flow Rate Fraction of Inspired Oxygen 06/14/25 16:10 06/14/25 16:15 06/14/25 16:15 Temperature 97.7 F Pulse Rate 122 H Respiratory Rate 33 H Blood Pressure 109/77 102/65 Pulse Oximetry 99 Oxygen Delivery Method Oxygen Flow Rate Fraction of Inspired Oxygen 06/14/25 16:20 06/14/25 16:21 06/14/25 16:21 Temperature 97.7 F 97.7 F Pulse Rate 127 H 126 H Respiratory Rate 36 H 33 H Blood Pressure 91/58 L Pulse Oximetry 97 98 Oxygen Delivery Method Oxygen Flow Rate Fraction of Inspired Oxygen 06/14/25 16:25 06/14/25 16:25 06/14/25 16:30 Temperature 97.7 F 97.7 F Pulse Rate 124 H 121 H Respiratory Rate 34 H 33 H Blood Pressure 87/56 L Pulse Oximetry 98 99 Oxygen Delivery Method Oxygen Flow Rate Fraction of Inspired Oxygen 06/14/25 16:31 06/14/25 16:31 06/14/25 16:35 Temperature 97.5 F L 97.5 F L Pulse Rate 121 H 119 H Respiratory Rate 36 H 35 H Blood Pressure 102/55 L Pulse Oximetry 99 100 Oxygen Delivery Method Oxygen Flow Rate Fraction of Inspired Oxygen 06/14/25 16:35 06/14/25 16:40 06/14/25 16:40 Temperature 97.5 F L Pulse Rate 115 H Respiratory Rate 35 H Blood Pressure 97/52 L 97/53 L Pulse Oximetry 100 Oxygen Delivery Method Oxygen Flow Rate Fraction of Inspired Oxygen 06/14/25 16:45 06/14/25 16:45 06/14/25 16:50 Temperature 97.3 F L Pulse Rate 112 H 114 H Respiratory Rate 33 H 33 H Blood Pressure 99/66 Pulse Oximetry 100 Oxygen Delivery Method Oxygen Flow Rate Fraction of Inspired Oxygen 06/14/25 16:50 06/14/25 16:55 06/14/25 16:55 Temperature 97.3 F L Pulse Rate 119 H Respiratory Rate 33 H Blood Pressure 102/67 103/68 Pulse Oximetry 99 Oxygen Delivery Method Oxygen Flow Rate Fraction of Inspired Oxygen 06/14/25 17:00 06/14/25 17:00 06/14/25 17:04 Temperature 97.3 F L Pulse Rate 111 H Respiratory Rate 32 H Blood Pressure 94/60 107/62 Pulse Oximetry 99 Oxygen Delivery Method Oxygen Flow Rate Fraction of Inspired Oxygen 06/14/25 17:04 06/14/25 17:05 06/14/25 17:06 Temperature 97.0 F L 97.0 F L 97.0 F L Pulse Rate 105 H 106 H 108 H Respiratory Rate 30 H 30 H 29 H Blood Pressure Pulse Oximetry 100 99 98 Oxygen Delivery Method Oxygen Flow Rate Fraction of Inspired Oxygen 06/14/25 17:06 06/14/25 17:10 06/14/25 17:10 Temperature 97.0 F L Pulse Rate 108 H Respiratory Rate 29 H Blood Pressure 97/60 95/62 Pulse Oximetry 98 Oxygen Delivery Method Oxygen Flow Rate Fraction of Inspired Oxygen 06/14/25 17:15 06/14/25 17:15 06/14/25 17:20 Temperature 96.8 F L Pulse Rate 111 H Respiratory Rate 30 H Blood Pressure 101/65 95/55 L Pulse Oximetry 97 Oxygen Delivery Method Oxygen Flow Rate Fraction of Inspired Oxygen 06/14/25 17:20 06/14/25 17:25 06/14/25 17:25 Temperature 96.8 F L 96.8 F L Pulse Rate 113 H 117 H Respiratory Rate 30 H 33 H Blood Pressure 82/51 L Pulse Oximetry 97 95 Oxygen Delivery Method Oxygen Flow Rate Fraction of Inspired Oxygen 06/14/25 17:30 06/14/25 17:30 06/14/25 17:35 Temperature 96.8 F L Pulse Rate 117 H Respiratory Rate 32 H Blood Pressure 77/50 L 70/45 L Pulse Oximetry 94 Oxygen Delivery Method Oxygen Flow Rate Fraction of Inspired Oxygen 06/14/25 17:35 06/14/25 17:40 06/14/25 17:40 Temperature 96.8 F L 96.8 F L Pulse Rate 114 H 115 H Respiratory Rate 32 H 36 H Blood Pressure 68/48 L Pulse Oximetry 93 91 Oxygen Delivery Method Oxygen Flow Rate Fraction of Inspired Oxygen 06/14/25 17:45 06/14/25 17:46 06/14/25 17:46 Temperature 96.8 F L 96.8 F L Pulse Rate 116 H 116 H Respiratory Rate 34 H 32 H Blood Pressure 71/51 L Pulse Oximetry 91 89 L Oxygen Delivery Method Oxygen Flow Rate Fraction of Inspired Oxygen 06/14/25 17:50 06/14/25 17:50 06/14/25 17:55 Temperature 96.8 F L 96.8 F L Pulse Rate 116 H 116 H Respiratory Rate 31 H 30 H Blood Pressure 72/50 L Pulse Oximetry 91 87 L Oxygen Delivery Method Oxygen Flow Rate Fraction of Inspired Oxygen 06/14/25 18:00 06/14/25 18:01 06/14/25 18:01 Temperature 96.8 F L 96.8 F L Pulse Rate 110 H 109 H Respiratory Rate 26 H 26 H Blood Pressure 58/40 L Pulse Oximetry 79 L 77 L Oxygen Delivery Method Oxygen Flow Rate Fraction of Inspired Oxygen 06/14/25 18:04 06/14/25 18:04 06/14/25 18:05 Temperature 96.8 F L 96.8 F L Pulse Rate 109 H 109 H Respiratory Rate 28 H 28 H Blood Pressure 63/43 L Pulse Oximetry 90 L 94 Oxygen Delivery Method Oxygen Flow Rate Fraction of Inspired Oxygen 06/14/25 18:05 06/14/25 18:10 06/14/25 18:10 Temperature 96.8 F L Pulse Rate 112 H Respiratory Rate 30 H Blood Pressure 74/45 L 66/41 L Pulse Oximetry 89 L Oxygen Delivery Method Oxygen Flow Rate Fraction of Inspired Oxygen 06/14/25 18:25 06/14/25 18:25 06/14/25 18:30 Temperature 96.8 F L 96.8 F L Pulse Rate 104 H 112 H Respiratory Rate 27 H 32 H Blood Pressure 70/44 L Pulse Oximetry 98 97 Oxygen Delivery Method Oxygen Flow Rate Fraction of Inspired Oxygen 06/14/25 18:30 06/14/25 18:35 06/14/25 18:35 Temperature 96.8 F L Pulse Rate 113 H Respiratory Rate 33 H Blood Pressure 88/54 L 88/57 L Pulse Oximetry 98 Oxygen Delivery Method Oxygen Flow Rate Fraction of Inspired Oxygen 06/14/25 18:40 06/14/25 18:40 06/14/25 18:45 Temperature 96.8 F L Pulse Rate 113 H Respiratory Rate 31 H Blood Pressure 88/56 L 90/56 L Pulse Oximetry 99 Oxygen Delivery Method Oxygen Flow Rate Fraction of Inspired Oxygen 06/14/25 18:45 06/14/25 18:50 06/14/25 18:50 Temperature 96.6 F L 96.6 F L Pulse Rate 110 H 109 H Respiratory Rate 32 H 33 H Blood Pressure 95/62 Pulse Oximetry 100 100 Oxygen Delivery Method Oxygen Flow Rate Fraction of Inspired Oxygen 06/14/25 18:55 06/14/25 18:55 06/14/25 19:00 Temperature 96.4 F L 96.4 F L Pulse Rate 109 H 107 H Respiratory Rate 9 L 15 Blood Pressure 96/66 Pulse Oximetry 100 100 Oxygen Delivery Method Oxygen Flow Rate Fraction of Inspired Oxygen 06/14/25 19:00 06/14/25 19:05 06/14/25 19:05 Temperature 96.4 F L Pulse Rate 107 H Respiratory Rate 18 Blood Pressure 100/68 89/71 L Pulse Oximetry 100 Oxygen Delivery Method Oxygen Flow Rate Fraction of Inspired Oxygen 06/14/25 19:10 06/14/25 19:11 06/14/25 19:11 Temperature 96.3 F L 96.3 F L Pulse Rate 105 H 104 H Respiratory Rate 11 L 9 L Blood Pressure 94/68 Pulse Oximetry 100 100 Oxygen Delivery Method Oxygen Flow Rate Fraction of Inspired Oxygen 06/14/25 19:15 06/14/25 19:15 06/14/25 19:20 Temperature 96.3 F L 96.3 F L Pulse Rate 106 H 109 H Respiratory Rate 12 28 H Blood Pressure 89/67 L Pulse Oximetry 100 100 Oxygen Delivery Method Oxygen Flow Rate Fraction of Inspired Oxygen 06/14/25 19:25 06/14/25 19:26 06/14/25 19:26 Temperature 96.3 F L 96.3 F L Pulse Rate 113 H 113 H Respiratory Rate 31 H 30 H Blood Pressure 90/57 L Pulse Oximetry 100 100 Oxygen Delivery Method Oxygen Flow Rate Fraction of Inspired Oxygen 06/14/25 19:30 06/14/25 19:30 06/14/25 19:35 Temperature 96.3 F L 96.3 F L Pulse Rate 112 H 113 H Respiratory Rate 30 H 30 H Blood Pressure 94/56 L Pulse Oximetry 100 100 Oxygen Delivery Method Oxygen Flow Rate Fraction of Inspired Oxygen 06/14/25 19:35 06/14/25 19:40 06/14/25 19:40 Temperature 96.3 F L Pulse Rate 110 H Respiratory Rate 29 H Blood Pressure 85/51 L 85/52 L Pulse Oximetry 100 Oxygen Delivery Method Oxygen Flow Rate Fraction of Inspired Oxygen 06/14/25 19:45 06/14/25 19:45 06/14/25 19:50 Temperature 96.3 F L 96.4 F L Pulse Rate 106 H 107 H Respiratory Rate 27 H 30 H Blood Pressure 87/57 L Pulse Oximetry 100 100 Oxygen Delivery Method Oxygen Flow Rate Fraction of Inspired Oxygen 06/14/25 19:50 06/14/25 19:55 06/14/25 19:55 Temperature 96.4 F L Pulse Rate 108 H Respiratory Rate 29 H Blood Pressure 95/61 98/62 Pulse Oximetry 100 Oxygen Delivery Method Oxygen Flow Rate Fraction of Inspired Oxygen 06/14/25 20:00 06/14/25 20:00 06/14/25 20:05 Temperature 96.4 F L Pulse Rate 106 H Respiratory Rate 29 H Blood Pressure 90/61 90/61 Pulse Oximetry 100 Oxygen Delivery Method Oxygen Flow Rate Fraction of Inspired Oxygen 06/14/25 20:05 06/14/25 20:10 06/14/25 20:11 Temperature 96.4 F L 96.4 F L 96.4 F L Pulse Rate 105 H 106 H 105 H Respiratory Rate 30 H 29 H 29 H Blood Pressure Pulse Oximetry 100 100 100 Oxygen Delivery Method Oxygen Flow Rate Fraction of Inspired Oxygen 06/14/25 20:11 06/14/25 20:15 06/14/25 20:15 Temperature 96.4 F L Pulse Rate 104 H Respiratory Rate 29 H Blood Pressure 107/64 89/65 L Pulse Oximetry 100 Oxygen Delivery Method Oxygen Flow Rate Fraction of Inspired Oxygen 06/14/25 20:20 06/14/25 20:20 06/14/25 20:25 Temperature 96.4 F L 96.4 F L Pulse Rate 104 H 103 H Respiratory Rate 28 H 25 H Blood Pressure 95/70 Pulse Oximetry 100 100 Oxygen Delivery Method Trach Collar Oxygen Flow Rate 10 Fraction of Inspired Oxygen 06/14/25 20:27 06/14/25 20:27 06/14/25 20:30 Temperature 96.6 F L Pulse Rate 106 H Respiratory Rate 28 H Blood Pressure 98/66 101/66 Pulse Oximetry 100 Oxygen Delivery Method Oxygen Flow Rate Fraction of Inspired Oxygen 06/14/25 20:30 06/14/25 20:35 06/14/25 20:35 Temperature 96.6 F L 96.6 F L Pulse Rate 106 H 103 H Respiratory Rate 27 H 28 H Blood Pressure 99/69 Pulse Oximetry 100 100 Oxygen Delivery Method Trach Collar Oxygen Flow Rate Fraction of Inspired Oxygen 06/14/25 20:40 06/14/25 20:41 06/14/25 20:41 Temperature 96.6 F L 96.8 F L Pulse Rate 104 H 105 H Respiratory Rate 22 29 H Blood Pressure 91/51 L Pulse Oximetry 100 100 Oxygen Delivery Method Oxygen Flow Rate Fraction of Inspired Oxygen 06/14/25 20:45 06/14/25 20:46 06/14/25 20:46 Temperature 96.8 F L 96.8 F L Pulse Rate 104 H 105 H Respiratory Rate 28 H 28 H Blood Pressure 105/56 L Pulse Oximetry 100 100 Oxygen Delivery Method Oxygen Flow Rate Fraction of Inspired Oxygen 06/14/25 20:50 06/14/25 20:51 06/14/25 20:51 Temperature 96.8 F L 96.8 F L Pulse Rate 105 H 105 H Respiratory Rate 27 H 28 H Blood Pressure 93/66 Pulse Oximetry 100 100 Oxygen Delivery Method Oxygen Flow Rate Fraction of Inspired Oxygen 06/14/25 20:55 06/14/25 20:55 06/14/25 21:00 Temperature 96.8 F L Pulse Rate 103 H Respiratory Rate 28 H Blood Pressure 97/69 88/65 L Pulse Oximetry 100 Oxygen Delivery Method Trach Collar Oxygen Flow Rate 10 Fraction of Inspired Oxygen 06/14/25 21:00 06/14/25 21:05 06/14/25 21:05 Temperature 97.0 F L 97.0 F L Pulse Rate 102 H 104 H Respiratory Rate 27 H 28 H Blood Pressure 104/63 Pulse Oximetry 100 100 Oxygen Delivery Method Oxygen Flow Rate Fraction of Inspired Oxygen 06/14/25 21:10 06/14/25 21:10 06/14/25 21:15 Temperature 97.0 F L Pulse Rate 101 H Respiratory Rate 26 H Blood Pressure 101/64 109/67 Pulse Oximetry 100 Oxygen Delivery Method Oxygen Flow Rate Fraction of Inspired Oxygen 06/14/25 21:15 06/14/25 21:20 06/14/25 21:20 Temperature 97.2 F L 97.2 F L Pulse Rate 104 H 104 H Respiratory Rate 26 H 22 Blood Pressure 94/69 Pulse Oximetry 100 100 Oxygen Delivery Method Oxygen Flow Rate Fraction of Inspired Oxygen 06/14/25 21:25 06/14/25 21:25 06/14/25 21:30 Temperature 97.2 F L Pulse Rate 104 H Respiratory Rate 26 H Blood Pressure 97/70 94/67 Pulse Oximetry 100 Oxygen Delivery Method Trach Collar Oxygen Flow Rate 10 Fraction of Inspired Oxygen 06/14/25 21:30 06/14/25 21:35 06/14/25 21:35 Temperature 97.2 F L 97.3 F L Pulse Rate 104 H 103 H Respiratory Rate 26 H 26 H Blood Pressure 97/69 Pulse Oximetry 100 100 Oxygen Delivery Method Trach Collar Oxygen Flow Rate 10 Fraction of Inspired Oxygen 06/14/25 21:40 06/14/25 21:40 06/14/25 21:45 Temperature 97.3 F L Pulse Rate 104 H Respiratory Rate 26 H Blood Pressure 95/67 97/69 Pulse Oximetry 100 Oxygen Delivery Method Oxygen Flow Rate Fraction of Inspired Oxygen 06/14/25 21:45 06/14/25 21:50 06/14/25 21:50 Temperature 97.3 F L 97.5 F L Pulse Rate 104 H 105 H Respiratory Rate 26 H 26 H Blood Pressure 97/70 Pulse Oximetry 100 100 Oxygen Delivery Method Oxygen Flow Rate Fraction of Inspired Oxygen 06/14/25 21:55 06/14/25 21:55 06/14/25 22:00 Temperature 97.5 F L Pulse Rate 106 H Respiratory Rate 26 H Blood Pressure 95/70 98/70 Pulse Oximetry 100 Oxygen Delivery Method Trach Collar Oxygen Flow Rate Fraction of Inspired Oxygen 06/14/25 22:00 06/14/25 22:05 06/14/25 22:05 Temperature 97.5 F L 97.5 F L Pulse Rate 108 H 108 H Respiratory Rate 27 H 27 H Blood Pressure 98/67 Pulse Oximetry 100 100 Oxygen Delivery Method Trach Collar Oxygen Flow Rate Fraction of Inspired Oxygen 06/14/25 22:10 06/14/25 22:10 06/14/25 22:15 Temperature 97.7 F 97.7 F Pulse Rate 108 H 109 H Respiratory Rate 26 H 27 H Blood Pressure 95/65 Pulse Oximetry 100 100 Oxygen Delivery Method Room Air Oxygen Flow Rate Fraction of Inspired Oxygen 06/14/25 22:15 06/14/25 22:20 06/14/25 22:20 Temperature 97.7 F Pulse Rate 109 H Respiratory Rate 27 H Blood Pressure 98/67 97/62 Pulse Oximetry 100 Oxygen Delivery Method Oxygen Flow Rate Fraction of Inspired Oxygen 06/14/25 22:25 06/14/25 22:25 06/14/25 22:30 Temperature 97.7 F Pulse Rate 113 H Respiratory Rate 29 H Blood Pressure 94/59 L 95/61 Pulse Oximetry 100 Oxygen Delivery Method Trach Collar Oxygen Flow Rate 10 Fraction of Inspired Oxygen 06/14/25 22:30 06/14/25 22:35 06/14/25 22:35 Temperature 97.7 F 97.9 F Pulse Rate 115 H 113 H Respiratory Rate 29 H 28 H Blood Pressure 94/61 Pulse Oximetry 98 100 Oxygen Delivery Method Trach Collar Oxygen Flow Rate 10 Fraction of Inspired Oxygen 06/14/25 22:40 06/14/25 22:40 06/14/25 22:45 Temperature 97.9 F Pulse Rate 118 H Respiratory Rate 32 H Blood Pressure 93/62 96/58 L Pulse Oximetry 97 Oxygen Delivery Method Oxygen Flow Rate Fraction of Inspired Oxygen 06/14/25 22:45 06/14/25 22:50 06/14/25 22:50 Temperature 97.9 F 98.1 F Pulse Rate 122 H 121 H Respiratory Rate 33 H 32 H Blood Pressure 90/61 Pulse Oximetry 94 97 Oxygen Delivery Method Oxygen Flow Rate Fraction of Inspired Oxygen 06/14/25 22:55 06/14/25 22:55 06/14/25 23:00 Temperature 98.1 F Pulse Rate 120 H Respiratory Rate 32 H Blood Pressure 87/60 L 81/51 L Pulse Oximetry 100 Oxygen Delivery Method Oxygen Flow Rate Fraction of Inspired Oxygen 06/14/25 23:00 06/14/25 23:02 06/14/25 23:02 Temperature 98.1 F 98.1 F Pulse Rate 120 H 121 H Respiratory Rate 33 H 33 H Blood Pressure 83/53 L Pulse Oximetry 100 99 Oxygen Delivery Method Oxygen Flow Rate Fraction of Inspired Oxygen 06/14/25 23:04 06/14/25 23:04 06/14/25 23:05 Temperature 98.2 F 98.2 F Pulse Rate 119 H 119 H Respiratory Rate 32 H 32 H Blood Pressure 79/52 L Pulse Oximetry 100 100 Oxygen Delivery Method Oxygen Flow Rate Fraction of Inspired Oxygen 06/14/25 23:06 06/14/25 23:06 06/14/25 23:08 Temperature 98.2 F Pulse Rate 119 H Respiratory Rate 33 H Blood Pressure 79/51 L 80/55 L Pulse Oximetry 100 Oxygen Delivery Method Oxygen Flow Rate Fraction of Inspired Oxygen 06/14/25 23:08 Temperature 98.2 F Pulse Rate 119 H Respiratory Rate 32 H Blood Pressure Pulse Oximetry 100 Oxygen Delivery Method Trach Collar Oxygen Flow Rate 10 Fraction of Inspired Oxygen <Dinora Dasilva MD - Last Filed: 06/14/25 23:30> Orders Ordered: Discontinued Medications Cefepime HCl 2 gm/ Sodium (Chloride) 100 mls @ 200 mls/hr IV NOW ONE Stop: 06/14/25 13:31 Last Infusion: 06/14/25 15:03 Dose: Infused Documented By: Admin: 06/14/25 14:17 Dose: 200 mls/hr Documented By: JIMBO Sodium Chloride (Normal Saline 0.9%) 2,000.34 mls @ 666.78 mls/hr 30 ml/kg infuse over 3 hr (2000.34 ml) IV NOW ONE Stop: 06/14/25 16:40 Last Infusion: 06/14/25 16:22 Dose: Infused Documented By: Admin: 06/14/25 13:44 Dose: 666.78 mls/hr Documented By: JIMBO NOREPINEPHRINE BITARTRATE/D5W (Levophed) 4 mg in 250 mls @ 25.004 mls/hr IV TITRATE JOSE MANUEL; Protocol Last Titration: 06/14/25 23:33 Dose: 0.38 mcg/kg/min, 95.016 mls/hr Documented By: Titration: 06/14/25 23:29 Dose: 0.38 mcg/kg/min, 95.016 mls/hr Documented By: Titration: 06/14/25 23:26 Dose: 0.36 mcg/kg/min, 90.015 mls/hr Documented By: Titration: 06/14/25 23:24 Dose: 0.34 mcg/kg/min, 85.014 mls/hr Documented By: Titration: 06/14/25 23:18 Dose: 0.32 mcg/kg/min, 80.014 mls/hr Documented By: Titration: 06/14/25 23:15 Dose: 0.3 mcg/kg/min, 75.013 mls/hr Documented By: Titration: 06/14/25 23:13 Dose: 0.27 mcg/kg/min, 67.511 mls/hr Documented By: Titration: 06/14/25 23:05 Dose: 0.25 mcg/kg/min, 62.511 mls/hr Documented By: Titration: 06/14/25 23:00 Dose: 0.23 mcg/kg/min, 57.51 mls/hr Documented By: Titration: 06/14/25 22:56 Dose: 0.21 mcg/kg/min, 52.509 mls/hr Documented By: Admin: 06/14/25 21:30 Dose: 0.19 mcg/kg/min, 47.508 mls/hr Documented By: Titration: 06/14/25 21:30 Dose: Infused Documented By: Titration: 06/14/25 20:43 Dose: 0.19 mcg/kg/min, 47.508 mls/hr Documented By: Titration: 06/14/25 18:13 Dose: 0.17 mcg/kg/min, 42.507 mls/hr Documented By: Titration: 06/14/25 18:05 Dose: 0.15 mcg/kg/min, 37.506 mls/hr Documented By: Titration: 06/14/25 16:22 Dose: 0.1 mcg/kg/min, 25.004 mls/hr Documented By: Titration: 06/14/25 15:25 Dose: 0.15 mcg/kg/min, 37.506 mls/hr Documented By: Admin: 06/14/25 15:06 Dose: 0.1 mcg/kg/min, 25.004 mls/hr Documented By: JIMBO Sodium Chloride (Normal Saline 0.9%) 1,000 mls @ 150 mls/hr IV CONT JOSE MANUEL Last Infusion: 06/14/25 19:26 Dose: Infused Documented By: Infusion: 06/14/25 18:18 Dose: 999 mls/hr Documented By: Admin: 06/14/25 18:06 Dose: 150 mls/hr Documented By: JIMBO Sodium Chloride (Normal Saline 0.9%) 1,000 mls @ 1,000 mls/hr IV BOLUS ONE Stop: 06/14/25 17:17 Last Infusion: 06/14/25 18:05 Dose: Infused Documented By: Admin: 06/14/25 16:23 Dose: 1,000 mls/hr Documented By: JIMBO Vancomycin HCl (Vancomycin) 1,250 mg in 250 mls @ 250 mls/hr IV NOW ONE Stop: 06/14/25 19:31 Last Infusion: 06/14/25 20:33 Dose: Infused Documented By: Admin: 06/14/25 19:14 Dose: 250 mls/hr Documented By: JIMBO Vancomycin HCl (Vancomycin) 1,250 mg in 250 mls @ 250 mls/hr IV Q12H JOSE MANUEL Sodium Chloride (Normal Saline 0.9%) 1,000 mls @ 150 mls/hr IV CONT JOSE MANUEL Last Infusion: 06/14/25 23:33 Dose: 150 mls/hr Documented By: Admin: 06/14/25 19:26 Dose: 150 mls/hr Documented By: JIMBO Acetaminophen (Ofirmev) 750 mg in 75 mls @ 150 mls/hr IV Q6H PRN PRN Reason: FEVER/DISC Acetaminophen (Ofirmev) 1,000 mg in 100 mls @ 400 mls/hr IV NOW ONE Stop: 06/14/25 21:03 Last Infusion: 06/14/25 21:13 Dose: Infused Documented By: Admin: 06/14/25 20:54 Dose: 400 mls/hr Documented By: SHERINE Vasopressin 40 unit/ Sodium (Chloride) 102 mls @ 4.5 mls/hr IV CONT JOSE MANUEL Last Infusion: 06/15/25 00:10 Dose: 4.5 mls/hr Documented By: Admin: 06/14/25 23:52 Dose: 4.5 mls/hr Documented By: SHERINE Vancomycin HCl (Vancomycin Per Pharmacy) 1 request MISC NOW ONE Stop: 06/14/25 18:29 Last Admin: 06/14/25 19:25 Dose: Not Given Documented By: JIMBO Vital Signs Vital signs: Vital Signs - 8 hr 06/14/25 15:30 06/14/25 15:30 06/14/25 15:35 Temperature 98.6 F 98.4 F Pulse Rate 120 H 123 H Respiratory Rate 32 H 34 H Blood Pressure 112/70 Pulse Oximetry 98 98 Oxygen Delivery Method Oxygen Flow Rate Fraction of Inspired Oxygen 06/14/25 15:36 06/14/25 15:36 06/14/25 15:40 Temperature 98.4 F Pulse Rate 123 H Respiratory Rate 35 H Blood Pressure 110/81 94/67 Pulse Oximetry 98 Oxygen Delivery Method Oxygen Flow Rate Fraction of Inspired Oxygen 06/14/25 15:40 06/14/25 15:45 06/14/25 15:45 Temperature 98.4 F 98.2 F Pulse Rate 126 H 119 H Respiratory Rate 36 H 35 H Blood Pressure 96/72 Pulse Oximetry 100 100 Oxygen Delivery Method Oxygen Flow Rate Fraction of Inspired Oxygen 06/14/25 15:46 06/14/25 15:50 06/14/25 15:50 Temperature 98.1 F Pulse Rate 119 H Respiratory Rate 32 H 37 H Blood Pressure 101/72 Pulse Oximetry 93 100 Oxygen Delivery Method Trach Collar Oxygen Flow Rate 15 Fraction of Inspired Oxygen 100 06/14/25 15:55 06/14/25 15:55 06/14/25 16:00 Temperature 98.1 F 98.1 F Pulse Rate 118 H 119 H Respiratory Rate 18 35 H Blood Pressure 111/68 Pulse Oximetry 100 Oxygen Delivery Method Oxygen Flow Rate Fraction of Inspired Oxygen 06/14/25 16:05 06/14/25 16:05 06/14/25 16:10 Temperature 97.9 F 97.9 F Pulse Rate 122 H 125 H Respiratory Rate 34 H 35 H Blood Pressure 107/72 Pulse Oximetry 95 Oxygen Delivery Method Oxygen Flow Rate Fraction of Inspired Oxygen 06/14/25 16:10 06/14/25 16:15 06/14/25 16:15 Temperature 97.7 F Pulse Rate 122 H Respiratory Rate 33 H Blood Pressure 109/77 102/65 Pulse Oximetry 99 Oxygen Delivery Method Oxygen Flow Rate Fraction of Inspired Oxygen 06/14/25 16:20 06/14/25 16:21 06/14/25 16:21 Temperature 97.7 F 97.7 F Pulse Rate 127 H 126 H Respiratory Rate 36 H 33 H Blood Pressure 91/58 L Pulse Oximetry 97 98 Oxygen Delivery Method Oxygen Flow Rate Fraction of Inspired Oxygen 06/14/25 16:25 06/14/25 16:25 06/14/25 16:30 Temperature 97.7 F 97.7 F Pulse Rate 124 H 121 H Respiratory Rate 34 H 33 H Blood Pressure 87/56 L Pulse Oximetry 98 99 Oxygen Delivery Method Oxygen Flow Rate Fraction of Inspired Oxygen 06/14/25 16:31 06/14/25 16:31 06/14/25 16:35 Temperature 97.5 F L 97.5 F L Pulse Rate 121 H 119 H Respiratory Rate 36 H 35 H Blood Pressure 102/55 L Pulse Oximetry 99 100 Oxygen Delivery Method Oxygen Flow Rate Fraction of Inspired Oxygen 06/14/25 16:35 06/14/25 16:40 06/14/25 16:40 Temperature 97.5 F L Pulse Rate 115 H Respiratory Rate 35 H Blood Pressure 97/52 L 97/53 L Pulse Oximetry 100 Oxygen Delivery Method Oxygen Flow Rate Fraction of Inspired Oxygen 06/14/25 16:45 06/14/25 16:45 06/14/25 16:50 Temperature 97.3 F L Pulse Rate 112 H 114 H Respiratory Rate 33 H 33 H Blood Pressure 99/66 Pulse Oximetry 100 Oxygen Delivery Method Oxygen Flow Rate Fraction of Inspired Oxygen 06/14/25 16:50 06/14/25 16:55 06/14/25 16:55 Temperature 97.3 F L Pulse Rate 119 H Respiratory Rate 33 H Blood Pressure 102/67 103/68 Pulse Oximetry 99 Oxygen Delivery Method Oxygen Flow Rate Fraction of Inspired Oxygen 06/14/25 17:00 06/14/25 17:00 06/14/25 17:04 Temperature 97.3 F L Pulse Rate 111 H Respiratory Rate 32 H Blood Pressure 94/60 107/62 Pulse Oximetry 99 Oxygen Delivery Method Oxygen Flow Rate Fraction of Inspired Oxygen 06/14/25 17:04 06/14/25 17:05 06/14/25 17:06 Temperature 97.0 F L 97.0 F L 97.0 F L Pulse Rate 105 H 106 H 108 H Respiratory Rate 30 H 30 H 29 H Blood Pressure Pulse Oximetry 100 99 98 Oxygen Delivery Method Oxygen Flow Rate Fraction of Inspired Oxygen 06/14/25 17:06 06/14/25 17:10 06/14/25 17:10 Temperature 97.0 F L Pulse Rate 108 H Respiratory Rate 29 H Blood Pressure 97/60 95/62 Pulse Oximetry 98 Oxygen Delivery Method Oxygen Flow Rate Fraction of Inspired Oxygen 06/14/25 17:15 06/14/25 17:15 06/14/25 17:20 Temperature 96.8 F L Pulse Rate 111 H Respiratory Rate 30 H Blood Pressure 101/65 95/55 L Pulse Oximetry 97 Oxygen Delivery Method Oxygen Flow Rate Fraction of Inspired Oxygen 06/14/25 17:20 06/14/25 17:25 06/14/25 17:25 Temperature 96.8 F L 96.8 F L Pulse Rate 113 H 117 H Respiratory Rate 30 H 33 H Blood Pressure 82/51 L Pulse Oximetry 97 95 Oxygen Delivery Method Oxygen Flow Rate Fraction of Inspired Oxygen 06/14/25 17:30 06/14/25 17:30 06/14/25 17:35 Temperature 96.8 F L Pulse Rate 117 H Respiratory Rate 32 H Blood Pressure 77/50 L 70/45 L Pulse Oximetry 94 Oxygen Delivery Method Oxygen Flow Rate Fraction of Inspired Oxygen 06/14/25 17:35 06/14/25 17:40 06/14/25 17:40 Temperature 96.8 F L 96.8 F L Pulse Rate 114 H 115 H Respiratory Rate 32 H 36 H Blood Pressure 68/48 L Pulse Oximetry 93 91 Oxygen Delivery Method Oxygen Flow Rate Fraction of Inspired Oxygen 06/14/25 17:45 06/14/25 17:46 06/14/25 17:46 Temperature 96.8 F L 96.8 F L Pulse Rate 116 H 116 H Respiratory Rate 34 H 32 H Blood Pressure 71/51 L Pulse Oximetry 91 89 L Oxygen Delivery Method Oxygen Flow Rate Fraction of Inspired Oxygen 06/14/25 17:50 06/14/25 17:50 06/14/25 17:55 Temperature 96.8 F L 96.8 F L Pulse Rate 116 H 116 H Respiratory Rate 31 H 30 H Blood Pressure 72/50 L Pulse Oximetry 91 87 L Oxygen Delivery Method Oxygen Flow Rate Fraction of Inspired Oxygen 06/14/25 18:00 06/14/25 18:01 06/14/25 18:01 Temperature 96.8 F L 96.8 F L Pulse Rate 110 H 109 H Respiratory Rate 26 H 26 H Blood Pressure 58/40 L Pulse Oximetry 79 L 77 L Oxygen Delivery Method Oxygen Flow Rate Fraction of Inspired Oxygen 06/14/25 18:04 06/14/25 18:04 06/14/25 18:05 Temperature 96.8 F L 96.8 F L Pulse Rate 109 H 109 H Respiratory Rate 28 H 28 H Blood Pressure 63/43 L Pulse Oximetry 90 L 94 Oxygen Delivery Method Oxygen Flow Rate Fraction of Inspired Oxygen 06/14/25 18:05 06/14/25 18:10 06/14/25 18:10 Temperature 96.8 F L Pulse Rate 112 H Respiratory Rate 30 H Blood Pressure 74/45 L 66/41 L Pulse Oximetry 89 L Oxygen Delivery Method Oxygen Flow Rate Fraction of Inspired Oxygen 06/14/25 18:25 06/14/25 18:25 06/14/25 18:30 Temperature 96.8 F L 96.8 F L Pulse Rate 104 H 112 H Respiratory Rate 27 H 32 H Blood Pressure 70/44 L Pulse Oximetry 98 97 Oxygen Delivery Method Oxygen Flow Rate Fraction of Inspired Oxygen 06/14/25 18:30 06/14/25 18:35 06/14/25 18:35 Temperature 96.8 F L Pulse Rate 113 H Respiratory Rate 33 H Blood Pressure 88/54 L 88/57 L Pulse Oximetry 98 Oxygen Delivery Method Oxygen Flow Rate Fraction of Inspired Oxygen 06/14/25 18:40 06/14/25 18:40 06/14/25 18:45 Temperature 96.8 F L Pulse Rate 113 H Respiratory Rate 31 H Blood Pressure 88/56 L 90/56 L Pulse Oximetry 99 Oxygen Delivery Method Oxygen Flow Rate Fraction of Inspired Oxygen 06/14/25 18:45 06/14/25 18:50 06/14/25 18:50 Temperature 96.6 F L 96.6 F L Pulse Rate 110 H 109 H Respiratory Rate 32 H 33 H Blood Pressure 95/62 Pulse Oximetry 100 100 Oxygen Delivery Method Oxygen Flow Rate Fraction of Inspired Oxygen 06/14/25 18:55 06/14/25 18:55 06/14/25 19:00 Temperature 96.4 F L 96.4 F L Pulse Rate 109 H 107 H Respiratory Rate 9 L 15 Blood Pressure 96/66 Pulse Oximetry 100 100 Oxygen Delivery Method Oxygen Flow Rate Fraction of Inspired Oxygen 06/14/25 19:00 06/14/25 19:05 06/14/25 19:05 Temperature 96.4 F L Pulse Rate 107 H Respiratory Rate 18 Blood Pressure 100/68 89/71 L Pulse Oximetry 100 Oxygen Delivery Method Oxygen Flow Rate Fraction of Inspired Oxygen 06/14/25 19:10 06/14/25 19:11 06/14/25 19:11 Temperature 96.3 F L 96.3 F L Pulse Rate 105 H 104 H Respiratory Rate 11 L 9 L Blood Pressure 94/68 Pulse Oximetry 100 100 Oxygen Delivery Method Oxygen Flow Rate Fraction of Inspired Oxygen 06/14/25 19:15 06/14/25 19:15 06/14/25 19:20 Temperature 96.3 F L 96.3 F L Pulse Rate 106 H 109 H Respiratory Rate 12 28 H Blood Pressure 89/67 L Pulse Oximetry 100 100 Oxygen Delivery Method Oxygen Flow Rate Fraction of Inspired Oxygen 06/14/25 19:25 06/14/25 19:26 06/14/25 19:26 Temperature 96.3 F L 96.3 F L Pulse Rate 113 H 113 H Respiratory Rate 31 H 30 H Blood Pressure 90/57 L Pulse Oximetry 100 100 Oxygen Delivery Method Oxygen Flow Rate Fraction of Inspired Oxygen 06/14/25 19:30 06/14/25 19:30 06/14/25 19:35 Temperature 96.3 F L 96.3 F L Pulse Rate 112 H 113 H Respiratory Rate 30 H 30 H Blood Pressure 94/56 L Pulse Oximetry 100 100 Oxygen Delivery Method Oxygen Flow Rate Fraction of Inspired Oxygen 06/14/25 19:35 06/14/25 19:40 06/14/25 19:40 Temperature 96.3 F L Pulse Rate 110 H Respiratory Rate 29 H Blood Pressure 85/51 L 85/52 L Pulse Oximetry 100 Oxygen Delivery Method Oxygen Flow Rate Fraction of Inspired Oxygen 06/14/25 19:45 06/14/25 19:45 06/14/25 19:50 Temperature 96.3 F L 96.4 F L Pulse Rate 106 H 107 H Respiratory Rate 27 H 30 H Blood Pressure 87/57 L Pulse Oximetry 100 100 Oxygen Delivery Method Oxygen Flow Rate Fraction of Inspired Oxygen 06/14/25 19:50 06/14/25 19:55 06/14/25 19:55 Temperature 96.4 F L Pulse Rate 108 H Respiratory Rate 29 H Blood Pressure 95/61 98/62 Pulse Oximetry 100 Oxygen Delivery Method Oxygen Flow Rate Fraction of Inspired Oxygen 06/14/25 20:00 06/14/25 20:00 06/14/25 20:05 Temperature 96.4 F L Pulse Rate 106 H Respiratory Rate 29 H Blood Pressure 90/61 90/61 Pulse Oximetry 100 Oxygen Delivery Method Oxygen Flow Rate Fraction of Inspired Oxygen 06/14/25 20:05 06/14/25 20:10 06/14/25 20:11 Temperature 96.4 F L 96.4 F L 96.4 F L Pulse Rate 105 H 106 H 105 H Respiratory Rate 30 H 29 H 29 H Blood Pressure Pulse Oximetry 100 100 100 Oxygen Delivery Method Oxygen Flow Rate Fraction of Inspired Oxygen 06/14/25 20:11 06/14/25 20:15 06/14/25 20:15 Temperature 96.4 F L Pulse Rate 104 H Respiratory Rate 29 H Blood Pressure 107/64 89/65 L Pulse Oximetry 100 Oxygen Delivery Method Oxygen Flow Rate Fraction of Inspired Oxygen 06/14/25 20:20 06/14/25 20:20 06/14/25 20:25 Temperature 96.4 F L 96.4 F L Pulse Rate 104 H 103 H Respiratory Rate 28 H 25 H Blood Pressure 95/70 Pulse Oximetry 100 100 Oxygen Delivery Method Trach Collar Oxygen Flow Rate 10 Fraction of Inspired Oxygen 06/14/25 20:27 06/14/25 20:27 06/14/25 20:30 Temperature 96.6 F L Pulse Rate 106 H Respiratory Rate 28 H Blood Pressure 98/66 101/66 Pulse Oximetry 100 Oxygen Delivery Method Oxygen Flow Rate Fraction of Inspired Oxygen 06/14/25 20:30 06/14/25 20:35 06/14/25 20:35 Temperature 96.6 F L 96.6 F L Pulse Rate 106 H 103 H Respiratory Rate 27 H 28 H Blood Pressure 99/69 Pulse Oximetry 100 100 Oxygen Delivery Method Trach Collar Oxygen Flow Rate Fraction of Inspired Oxygen 06/14/25 20:40 06/14/25 20:41 06/14/25 20:41 Temperature 96.6 F L 96.8 F L Pulse Rate 104 H 105 H Respiratory Rate 22 29 H Blood Pressure 91/51 L Pulse Oximetry 100 100 Oxygen Delivery Method Oxygen Flow Rate Fraction of Inspired Oxygen 06/14/25 20:45 06/14/25 20:46 06/14/25 20:46 Temperature 96.8 F L 96.8 F L Pulse Rate 104 H 105 H Respiratory Rate 28 H 28 H Blood Pressure 105/56 L Pulse Oximetry 100 100 Oxygen Delivery Method Oxygen Flow Rate Fraction of Inspired Oxygen 06/14/25 20:50 06/14/25 20:51 06/14/25 20:51 Temperature 96.8 F L 96.8 F L Pulse Rate 105 H 105 H Respiratory Rate 27 H 28 H Blood Pressure 93/66 Pulse Oximetry 100 100 Oxygen Delivery Method Oxygen Flow Rate Fraction of Inspired Oxygen 06/14/25 20:55 06/14/25 20:55 06/14/25 21:00 Temperature 96.8 F L Pulse Rate 103 H Respiratory Rate 28 H Blood Pressure 97/69 88/65 L Pulse Oximetry 100 Oxygen Delivery Method Trach Collar Oxygen Flow Rate 10 Fraction of Inspired Oxygen 06/14/25 21:00 06/14/25 21:05 06/14/25 21:05 Temperature 97.0 F L 97.0 F L Pulse Rate 102 H 104 H Respiratory Rate 27 H 28 H Blood Pressure 104/63 Pulse Oximetry 100 100 Oxygen Delivery Method Oxygen Flow Rate Fraction of Inspired Oxygen 06/14/25 21:10 06/14/25 21:10 06/14/25 21:15 Temperature 97.0 F L Pulse Rate 101 H Respiratory Rate 26 H Blood Pressure 101/64 109/67 Pulse Oximetry 100 Oxygen Delivery Method Oxygen Flow Rate Fraction of Inspired Oxygen 06/14/25 21:15 06/14/25 21:20 06/14/25 21:20 Temperature 97.2 F L 97.2 F L Pulse Rate 104 H 104 H Respiratory Rate 26 H 22 Blood Pressure 94/69 Pulse Oximetry 100 100 Oxygen Delivery Method Oxygen Flow Rate Fraction of Inspired Oxygen 06/14/25 21:25 06/14/25 21:25 06/14/25 21:30 Temperature 97.2 F L Pulse Rate 104 H Respiratory Rate 26 H Blood Pressure 97/70 94/67 Pulse Oximetry 100 Oxygen Delivery Method Trach Collar Oxygen Flow Rate 10 Fraction of Inspired Oxygen 06/14/25 21:30 06/14/25 21:35 06/14/25 21:35 Temperature 97.2 F L 97.3 F L Pulse Rate 104 H 103 H Respiratory Rate 26 H 26 H Blood Pressure 97/69 Pulse Oximetry 100 100 Oxygen Delivery Method Trach Collar Oxygen Flow Rate 10 Fraction of Inspired Oxygen 06/14/25 21:40 06/14/25 21:40 06/14/25 21:45 Temperature 97.3 F L Pulse Rate 104 H Respiratory Rate 26 H Blood Pressure 95/67 97/69 Pulse Oximetry 100 Oxygen Delivery Method Oxygen Flow Rate Fraction of Inspired Oxygen 06/14/25 21:45 06/14/25 21:50 06/14/25 21:50 Temperature 97.3 F L 97.5 F L Pulse Rate 104 H 105 H Respiratory Rate 26 H 26 H Blood Pressure 97/70 Pulse Oximetry 100 100 Oxygen Delivery Method Oxygen Flow Rate Fraction of Inspired Oxygen 06/14/25 21:55 06/14/25 21:55 06/14/25 22:00 Temperature 97.5 F L Pulse Rate 106 H Respiratory Rate 26 H Blood Pressure 95/70 98/70 Pulse Oximetry 100 Oxygen Delivery Method Trach Collar Oxygen Flow Rate Fraction of Inspired Oxygen 06/14/25 22:00 06/14/25 22:05 06/14/25 22:05 Temperature 97.5 F L 97.5 F L Pulse Rate 108 H 108 H Respiratory Rate 27 H 27 H Blood Pressure 98/67 Pulse Oximetry 100 100 Oxygen Delivery Method Trach Collar Oxygen Flow Rate Fraction of Inspired Oxygen 06/14/25 22:10 06/14/25 22:10 06/14/25 22:15 Temperature 97.7 F 97.7 F Pulse Rate 108 H 109 H Respiratory Rate 26 H 27 H Blood Pressure 95/65 Pulse Oximetry 100 100 Oxygen Delivery Method Room Air Oxygen Flow Rate Fraction of Inspired Oxygen 06/14/25 22:15 06/14/25 22:20 06/14/25 22:20 Temperature 97.7 F Pulse Rate 109 H Respiratory Rate 27 H Blood Pressure 98/67 97/62 Pulse Oximetry 100 Oxygen Delivery Method Oxygen Flow Rate Fraction of Inspired Oxygen 06/14/25 22:25 06/14/25 22:25 06/14/25 22:30 Temperature 97.7 F Pulse Rate 113 H Respiratory Rate 29 H Blood Pressure 94/59 L 95/61 Pulse Oximetry 100 Oxygen Delivery Method Trach Collar Oxygen Flow Rate 10 Fraction of Inspired Oxygen 06/14/25 22:30 06/14/25 22:35 06/14/25 22:35 Temperature 97.7 F 97.9 F Pulse Rate 115 H 113 H Respiratory Rate 29 H 28 H Blood Pressure 94/61 Pulse Oximetry 98 100 Oxygen Delivery Method Trach Collar Oxygen Flow Rate 10 Fraction of Inspired Oxygen 06/14/25 22:40 06/14/25 22:40 06/14/25 22:45 Temperature 97.9 F Pulse Rate 118 H Respiratory Rate 32 H Blood Pressure 93/62 96/58 L Pulse Oximetry 97 Oxygen Delivery Method Oxygen Flow Rate Fraction of Inspired Oxygen 06/14/25 22:45 06/14/25 22:50 06/14/25 22:50 Temperature 97.9 F 98.1 F Pulse Rate 122 H 121 H Respiratory Rate 33 H 32 H Blood Pressure 90/61 Pulse Oximetry 94 97 Oxygen Delivery Method Oxygen Flow Rate Fraction of Inspired Oxygen 06/14/25 22:55 06/14/25 22:55 06/14/25 23:00 Temperature 98.1 F Pulse Rate 120 H Respiratory Rate 32 H Blood Pressure 87/60 L 81/51 L Pulse Oximetry 100 Oxygen Delivery Method Oxygen Flow Rate Fraction of Inspired Oxygen 06/14/25 23:00 06/14/25 23:02 06/14/25 23:02 Temperature 98.1 F 98.1 F Pulse Rate 120 H 121 H Respiratory Rate 33 H 33 H Blood Pressure 83/53 L Pulse Oximetry 100 99 Oxygen Delivery Method Oxygen Flow Rate Fraction of Inspired Oxygen 06/14/25 23:04 06/14/25 23:04 06/14/25 23:05 Temperature 98.2 F 98.2 F Pulse Rate 119 H 119 H Respiratory Rate 32 H 32 H Blood Pressure 79/52 L Pulse Oximetry 100 100 Oxygen Delivery Method Oxygen Flow Rate Fraction of Inspired Oxygen 06/14/25 23:06 06/14/25 23:06 06/14/25 23:08 Temperature 98.2 F Pulse Rate 119 H Respiratory Rate 33 H Blood Pressure 79/51 L 80/55 L Pulse Oximetry 100 Oxygen Delivery Method Oxygen Flow Rate Fraction of Inspired Oxygen 06/14/25 23:08 Temperature 98.2 F Pulse Rate 119 H Respiratory Rate 32 H Blood Pressure Pulse Oximetry 100 Oxygen Delivery Method Trach Collar Oxygen Flow Rate 10 Fraction of Inspired Oxygen MDM - Abdominal Pain <Bassam Llamas MD - Last Filed: 06/18/25 07:42> Lab Data 06/14/25 13:35 06/14/25 13:35 Labs: Lab Results 06/14/25 06/14/25 06/14/25 Range/Units 13:35 13:48 14:51 WBC 17.7 H (4.5-11.0) X10^3/uL RBC 3.04 L (4.5-5.9) X10^6/uL Hgb 8.1 L (13.5-17.5) g/dL Hct 25.7 L (41-53) % MCV 84.7 (80-100) fL MCH 26.8 (26-34) PG MCHC 31.7 (30-36) % RDW 19.4 H (11.6-14.8) % Plt Count 581 H (150-400) X10^3/uL Neut % (Auto) 74.4 (50-75) % Lymph % (Auto) 19.3 L (25-40) % [place] % (Auto) 5.2 (3-14) % Eos % (Auto) 0.5 L (2-4) % Baso % (Auto) 0.6 (0-2) % Neut # (Auto) 40335 H (6052-5932) /uL Lymph # (Auto) 3400 (9190-2627) /uL [place] # (Auto) 900 (0-900) /uL Eos # (Auto) 100 (0-450) /uL Baso # (Auto) 100 (0-100) /uL VBG pH 7.27 L (7.33-7.43) VBG pCO2 40.5 L (45-50) mmHg VBG pO2 42 (35-45) mmHg VBG HCO3 19 L (24-28) mmol/L VBG Total CO2 18 L (24-29) mmol/L VBG O2 Saturation 70 (70-75) % VBG Base Excess -7.8 L (0-4) mmol/L FiO2 % 70.0 % % Sodium 131 L (137-145) mmol/L Potassium 5.5 H (3.4-5.1) mmol/L Chloride 100 (98-107) mmol/L Carbon Dioxide 18 L (22-32) mmol/L BUN 27 H (9-20) mg/dL Creatinine 0.49 L (0.66-1.25) mg/dL Estimated GFR > 60 (>60) mL/min BUN/Creatinine Ratio 55.1 H (6-22) Glucose 250 H (70-99) mg/dL POC Whole Bld Glucose (70-99) mg/dL Lactate 5.4 H* 1.4 (0.7-2.1) mmol/L Calcium 8.1 L (8.4-10.2) mg/dL Total Bilirubin 0.3 (0.2-1.3) mg/dL AST 40 (17-59) IU/L ALT 32 (<50) IU/L Alkaline Phosphatase 113 (38-126) U/L Total Protein 7.3 (6.3-8.2) g/dL Albumin 3.5 (3.5-5.0) g/dL Globulin 3.8 (1.7-4.1) g/dL Albumin/Globulin Ratio 0.9 L (1.0-2.8) Procalcitonin 0.245 (<0.5) ng/mL Urine Color Urine Appearance Urine pH (4.5-8.0) Ur Specific [place] (1.000-1.035) Urine Protein (Negative) Urine Glucose (UA) (Negative) g/dL Urine Ketones (NEGATIVE) Urine Occult Blood (Negative) Urine Nitrate (Negative) Urine Bilirubin (NEGATIVE) Urine Urobilinogen (0.2) E.U./dL Ur Leukocyte Esterase (NEGATIVE) Urine RBC (0-5/HPF) Urine WBC (0-5/HPF) Ur Squamous Epith Cells (0-5/HPF) Amorphous Sediment Urine Bacteria (None) Ur Culture Indicated? Vol Urine Centrifuged A.calcoaceticus-baumannii cmplx PCR (Not Detect) Bacteroides fragilis (Not Detect) [place] albicans (PCR) (Not Detect) [place] auris (PCR) (Not Detect) C. glabrata (PCR) (Not Detect) C. krusei (PCR) (Not Detect) C. parapsilosis (PCR) (Not Detect) C. tropicalis (PCR) (Not Detect) C. neoform/gattii (PCR) (Not Detect) Enterobacterales (PCR) (Not Detect) E. cloacae complex PCR (Not Detect) Enterococc faecalis PCR (Not Detect) Enterococc faecium PCR (Not Detect) E. coli (PCR) (Not Detect) H. influenzae (PCR) (Not Detect) Klebsiella aerogenes (PCR) (Not Detect) Klebsiella oxytoca PCR (Not Detect) Klebsiella pneumoniae (Not Detect) List. monocytogenes PCR (Not Detect) N. meningitidis (PCR) (Not Detect) Proteus species (PCR) (Not Detect) Salmonella spp. (PCR) (Not Detect) Serratia marcescens PCR (Not Detect) Staphylococcus sp PCR (Not Detect) Staph aureus (PCR) (Not Detect) mecA/C & MREJ Resist Gene (Not Detect) mecA/C-Methicil Resis Gene (Not Detect) mcr-1 Colistin Res Gene PCR (Not Detect) Staph epidermidis (PCR) (Not Detect) Staph lugdunensis PCR (Not Detect) S. maltophilia (PCR) (Not Detect) Streptococcus sp PCR (Not Detect) Group A Strep (PCR) (Not Detect) Strep agalactiae (PCR) (Not Detect) Strep pneumoniae (PCR) (Not Detect) P. aeruginosa (PCR) (Not Detect) Carlene/B-Vanco Res Genes (Not Detect) blaIMP Car res Gene PCR (Not Detect) KPC-Carbap Res Gene PCR (Not Detect) blaNDM Car Res Gene PCR (Not Detect) OXA-48 Carbapenem Resis Gene (PCR) (Not Detect) blaVIM Car Res Gene PCR (Not Detect) CTX-M Gene Resistance (PCR) (Not Detect) Blood Type Antibody Screen 06/14/25 06/14/25 06/14/25 Range/Units 15:36 18:02 18:11 WBC (4.5-11.0) X10^3/uL RBC (4.5-5.9) X10^6/uL Hgb (13.5-17.5) g/dL Hct (41-53) % MCV (80-100) fL MCH (26-34) PG MCHC (30-36) % RDW (11.6-14.8) % Plt Count (150-400) X10^3/uL Neut % (Auto) (50-75) % Lymph % (Auto) (25-40) % [place] % (Auto) (3-14) % Eos % (Auto) (2-4) % Baso % (Auto) (0-2) % Neut # (Auto) (9727-9173) /uL Lymph # (Auto) (9223-7848) /uL [place] # (Auto) (0-900) /uL Eos # (Auto) (0-450) /uL Baso # (Auto) (0-100) /uL VBG pH (7.33-7.43) VBG pCO2 (45-50) mmHg VBG pO2 (35-45) mmHg VBG HCO3 (24-28) mmol/L VBG Total CO2 (24-29) mmol/L VBG O2 Saturation (70-75) % VBG Base Excess (0-4) mmol/L FiO2 % % Sodium (137-145) mmol/L Potassium (3.4-5.1) mmol/L Chloride (98-107) mmol/L Carbon Dioxide (22-32) mmol/L BUN (9-20) mg/dL Creatinine (0.66-1.25) mg/dL Estimated GFR (>60) mL/min BUN/Creatinine Ratio (6-22) Glucose (70-99) mg/dL POC Whole Bld Glucose 197 H (70-99) mg/dL Lactate (0.7-2.1) mmol/L Calcium (8.4-10.2) mg/dL Total Bilirubin (0.2-1.3) mg/dL AST (17-59) IU/L ALT (<50) IU/L Alkaline Phosphatase (38-126) U/L Total Protein (6.3-8.2) g/dL Albumin (3.5-5.0) g/dL Globulin (1.7-4.1) g/dL Albumin/Globulin Ratio (1.0-2.8) Procalcitonin (<0.5) ng/mL Urine Color Yellow Urine Appearance Clear Urine pH 7.5 (4.5-8.0) Ur Specific [place] 1.010 (1.000-1.035) Urine Protein 2+ H (Negative) Urine Glucose (UA) Negative (Negative) g/dL Urine Ketones Negative (NEGATIVE) Urine Occult Blood 3+ H (Negative) Urine Nitrate Negative (Negative) Urine Bilirubin Negative (NEGATIVE) Urine Urobilinogen 0.2 (0.2) E.U./dL Ur Leukocyte Esterase Negative (NEGATIVE) Urine RBC 10-30/hpf H (0-5/HPF) Urine WBC None seen (0-5/HPF) Ur Squamous Epith Cells None seen (0-5/HPF) Amorphous Sediment 2+ Urine Bacteria Few (2-10) H (None) Ur Culture Indicated? Cult not indicated Vol Urine Centrifuged 10ml (spun) A.calcoaceticus-baumannii cmplx PCR (Not Detect) Bacteroides fragilis (Not Detect) Victoria albicans (PCR) (Not Detect) Victoria auris (PCR) (Not Detect) C. glabrata (PCR) (Not Detect) C. krusei (PCR) (Not Detect) C. parapsilosis (PCR) (Not Detect) C. tropicalis (PCR) (Not Detect) C. neoform/gattii (PCR) (Not Detect) Enterobacterales (PCR) (Not Detect) E. cloacae complex PCR (Not Detect) Enterococc faecalis PCR (Not Detect) Enterococc faecium PCR (Not Detect) E. coli (PCR) (Not Detect) H. influenzae (PCR) (Not Detect) Klebsiella aerogenes (PCR) (Not Detect) Klebsiella oxytoca PCR (Not Detect) Klebsiella pneumoniae (Not Detect) List. monocytogenes PCR (Not Detect) N. meningitidis (PCR) (Not Detect) Proteus species (PCR) (Not Detect) Salmonella spp. (PCR) (Not Detect) Serratia marcescens PCR (Not Detect) Staphylococcus sp PCR (Not Detect) Staph aureus (PCR) (Not Detect) mecA/C & MREJ Resist Gene (Not Detect) mecA/C-Methicil Resis Gene (Not Detect) mcr-1 Colistin Res Gene PCR (Not Detect) Staph epidermidis (PCR) (Not Detect) Staph lugdunensis PCR (Not Detect) S. maltophilia (PCR) (Not Detect) Streptococcus sp PCR (Not Detect) Group A Strep (PCR) (Not Detect) Strep agalactiae (PCR) (Not Detect) Strep pneumoniae (PCR) (Not Detect) P. aeruginosa (PCR) (Not Detect) Carlene/B-Vanco Res Genes (Not Detect) blaIMP Car res Gene PCR (Not Detect) KPC-Carbap Res Gene PCR (Not Detect) blaNDM Car Res Gene PCR (Not Detect) OXA-48 Carbapenem Resis Gene (PCR) (Not Detect) blaVIM Car Res Gene PCR (Not Detect) CTX-M Gene Resistance (PCR) (Not Detect) Blood Type B Positive Antibody Screen Negative 06/15/25 Range/Units 06:21 WBC (4.5-11.0) X10^3/uL RBC (4.5-5.9) X10^6/uL Hgb (13.5-17.5) g/dL Hct (41-53) % MCV (80-100) fL MCH (26-34) PG MCHC (30-36) % RDW (11.6-14.8) % Plt Count (150-400) X10^3/uL Neut % (Auto) (50-75) % Lymph % (Auto) (25-40) % [place] % (Auto) (3-14) % Eos % (Auto) (2-4) % Baso % (Auto) (0-2) % Neut # (Auto) (7290-6618) /uL Lymph # (Auto) (8991-3797) /uL [place] # (Auto) (0-900) /uL Eos # (Auto) (0-450) /uL Baso # (Auto) (0-100) /uL VBG pH (7.33-7.43) VBG pCO2 (45-50) mmHg VBG pO2 (35-45) mmHg VBG HCO3 (24-28) mmol/L VBG Total CO2 (24-29) mmol/L VBG O2 Saturation (70-75) % VBG Base Excess (0-4) mmol/L FiO2 % % Sodium (137-145) mmol/L Potassium (3.4-5.1) mmol/L Chloride (98-107) mmol/L Carbon Dioxide (22-32) mmol/L BUN (9-20) mg/dL Creatinine (0.66-1.25) mg/dL Estimated GFR (>60) mL/min BUN/Creatinine Ratio (6-22) Glucose (70-99) mg/dL POC Whole Bld Glucose (70-99) mg/dL Lactate (0.7-2.1) mmol/L Calcium (8.4-10.2) mg/dL Total Bilirubin (0.2-1.3) mg/dL AST (17-59) IU/L ALT (<50) IU/L Alkaline Phosphatase (38-126) U/L Total Protein (6.3-8.2) g/dL Albumin (3.5-5.0) g/dL Globulin (1.7-4.1) g/dL Albumin/Globulin Ratio (1.0-2.8) Procalcitonin (<0.5) ng/mL Urine Color Urine Appearance Urine pH (4.5-8.0) Ur Specific [place] (1.000-1.035) Urine Protein (Negative) Urine Glucose (UA) (Negative) g/dL Urine Ketones (NEGATIVE) Urine Occult Blood (Negative) Urine Nitrate (Negative) Urine Bilirubin (NEGATIVE) Urine Urobilinogen (0.2) E.U./dL Ur Leukocyte Esterase (NEGATIVE) Urine RBC (0-5/HPF) Urine WBC (0-5/HPF) Ur Squamous Epith Cells (0-5/HPF) Amorphous Sediment Urine Bacteria (None) Ur Culture Indicated? Vol Urine Centrifuged A.calcoaceticus-baumannii cmplx PCR Not detected (Not Detect) Bacteroides fragilis Not detected (Not Detect) Victoria albicans (PCR) Not detected (Not Detect) Victoria auris (PCR) Not detected (Not Detect) C. glabrata (PCR) Not detected (Not Detect) C. krusei (PCR) Not detected (Not Detect) C. parapsilosis (PCR) Not detected (Not Detect) C. tropicalis (PCR) Not detected (Not Detect) C. neoform/gattii (PCR) Not detected (Not Detect) Enterobacterales (PCR) Not detected (Not Detect) E. cloacae complex PCR Not detected (Not Detect) Enterococc faecalis PCR Not detected (Not Detect) Enterococc faecium PCR Not detected (Not Detect) E. coli (PCR) Not detected (Not Detect) H. influenzae (PCR) Not detected (Not Detect) Klebsiella aerogenes (PCR) Not detected (Not Detect) Klebsiella oxytoca PCR Not detected (Not Detect) Klebsiella pneumoniae Not detected (Not Detect) List. monocytogenes PCR Not detected (Not Detect) N. meningitidis (PCR) Not detected (Not Detect) Proteus species (PCR) Not detected (Not Detect) Salmonella spp. (PCR) Not detected (Not Detect) Serratia marcescens PCR Not detected (Not Detect) Staphylococcus sp PCR Detected (Not Detect) Staph aureus (PCR) Not detected (Not Detect) mecA/C & MREJ Resist Gene Not applicable (Not Detect) mecA/C-Methicil Resis Gene Detected (Not Detect) mcr-1 Colistin Res Gene PCR Not applicable (Not Detect) Staph epidermidis (PCR) Detected (Not Detect) Staph lugdunensis PCR Not detected (Not Detect) S. maltophilia (PCR) Not detected (Not Detect) Streptococcus sp PCR Not detected (Not Detect) Group A Strep (PCR) Not detected (Not Detect) Strep agalactiae (PCR) Not detected (Not Detect) Strep pneumoniae (PCR) Not detected (Not Detect) P. aeruginosa (PCR) Not detected (Not Detect) Carlene/B-Vanco Res Genes Not applicable (Not Detect) blaIMP Car res Gene PCR Not applicable (Not Detect) KPC-Carbap Res Gene PCR Not applicable (Not Detect) blaNDM Car Res Gene PCR Not applicable (Not Detect) OXA-48 Carbapenem Resis Gene (PCR) Not applicable (Not Detect) blaVIM Car Res Gene PCR Not applicable (Not Detect) CTX-M Gene Resistance (PCR) Not applicable (Not Detect) Blood Type Antibody Screen Imaging Data Chest x-ray: Radiologist's Impression: [address] [address] XRay Report Signed Patient: Jonnie Christopher MR#: [id number] : 1980 Acct:[id number] Age/Sex: 45 / M Date of Service: 06/14/25 Loc: ED Accession Number: [id number] Procedure: XR chest 1V Ordering Provider: Bassam Llamas MD PROCEDURE: XR CHEST 1V INDICATIONS: abd pain TECHNIQUE: One view of the chest was acquired. COMPARISON: [facility], , XR CHEST FOR PICC 1V, 05/30/2025, 9:04. FINDINGS: Surgical changes and devices: Tracheostomy collar, right arm PICC line Lungs and pleura: Chronic deformity of the chest with chronic decreased left hemithorax volume and chronic left lung interstitial changes. Right lung is clear. Mediastinum: Mediastinal contours appear normal. Heart size is normal. Bones and chest wall: No suspicious bony lesions. Overlying soft tissues appear unremarkable. IMPRESSION: No significant change in pulmonary status. Dictated by: Simón Boyer M.D. on 06/14/2025 at 14:46 Approved by: Simón Boyer M.D. on 06/14/2025 at 14:47 Abdominal x-ray: Radiologist's Impression: [address] [address] XRay Report Signed Patient: Jonnie Christopher MR#: [id number] : 1980 Acct:[id number] Age/Sex: 45 / M Date of Service: 06/14/25 Loc: ED Accession Number: [id number] Procedure: XR abdomen 1V Ordering Provider: Bassam Llamas MD PROCEDURE: XR ABDOMEN 1V INDICATIONS: abd pain TECHNIQUE: One view of the abdomen acquired. COMPARISON: [facility], CT, CT ABDOMEN PELVIS W CON, 05/29/2025, 2:18. [facility], CR, XR ABDOMEN 1V, 05/09/2025, 0:32. FINDINGS: Surgical changes and devices: Jejunostomy tube Bowel: Bowel gas pattern is normal. Moderately large rectal fecal debris. Soft tissues: No suspicious abdominal calcifications. Visualized solid organ contours appear normal in size. Bones: No suspicious bony lesions. Severe bilateral hip degenerative arthritis. IMPRESSION: Normal bowel gas pattern, moderately large fecal debris. Dictated by: Simón Boyer M.D. on 06/14/2025 at 14:44 Approved by: Simón Boyer M.D. on 06/14/2025 at 14:46 [facility] Narrative Medical decision making narrative: Patient brought in by ambulance from home for complaints of abdominal pain. Patient recently had G-tube placed. Patient has history of trach. Patient has history of cerebral palsy history of pulmonary embolism patient recently had G-tube replacement in April here. Mother at bedside. States that patient complained of shortness of breath at home and is the reason why he is here today. Vital signs noted. Patient is not stable to go cat scan imaging at this time. X-ray imaging will be ordered for chest and abdomen. Sepsis protocol has been initiated. MDM After history and exam, CBC CMP procalcitonin lactic acid blood culture cefepime x-ray chest x-ray abdomen urinalysis Levophed normal saline Differential considered: Includes but not limited to sepsis pneumonia GI bleed bacteremia Medical records reviewed: Discharge summary June 04, 2025 from this hospital Lab Test results independently reviewed as above. Pertinent findings: WBC 17.7 hemoglobin 8.1 hematocrit 26 VBG 7.27, 40.5, 42, 19 sodium 131 potassium 5.5 BUN 27 creatinine 0.49 GFR greater than 60. Lactic acid 5.4 calcium 8.1 procalcitonin 0.245 Independently reviewed EKG sinus tachycardia rate 125 Imaging studies independently reviewed: Chest x-ray abdominal x-ray no acute finding Consultations: Re-evaluations: 3 p.m.. Updated mother. Patient will need to be transferred as we do not have ICU bed here. She does understand patient is very ill very sick. She states patient is full code and full treatment. Discussion: 3:[address] Llamas: Sign-out to Dr. Morataya, patient needs ICU bed. Patient being treated for sepsis unknown origin at this time. Patient on Levophed patient given cefepime. IV fluids for sepsis protocol started. At this time patient is not stable for CT imaging. Patient does have a PICC line in place. Diagnosis: Sepsis <Dinora Dasilva MD - Last Filed: 06/14/25 23:30> Lab Data Labs: Lab Results 06/14/25 06/14/25 06/14/25 Range/Units 13:35 13:48 14:51 WBC 17.7 H (4.5-11.0) X10^3/uL RBC 3.04 L (4.5-5.9) X10^6/uL Hgb 8.1 L (13.5-17.5) g/dL Hct 25.7 L (41-53) % MCV 84.7 (80-100) fL MCH 26.8 (26-34) PG MCHC 31.7 (30-36) % RDW 19.4 H (11.6-14.8) % Plt Count 581 H (150-400) X10^3/uL Neut % (Auto) 74.4 (50-75) % Lymph % (Auto) 19.3 L (25-40) % [place] % (Auto) 5.2 (3-14) % Eos % (Auto) 0.5 L (2-4) % Baso % (Auto) 0.6 (0-2) % Neut # (Auto) 46595 H (5572-0655) /uL Lymph # (Auto) 3400 (1755-6949) /uL [place] # (Auto) 900 (0-900) /uL Eos # (Auto) 100 (0-450) /uL Baso # (Auto) 100 (0-100) /uL VBG pH 7.27 L (7.33-7.43) VBG pCO2 40.5 L (45-50) mmHg VBG pO2 42 (35-45) mmHg VBG HCO3 19 L (24-28) mmol/L VBG Total CO2 18 L (24-29) mmol/L VBG O2 Saturation 70 (70-75) % VBG Base Excess -7.8 L (0-4) mmol/L FiO2 % 70.0 % % Sodium 131 L (137-145) mmol/L Potassium 5.5 H (3.4-5.1) mmol/L Chloride 100 (98-107) mmol/L Carbon Dioxide 18 L (22-32) mmol/L BUN 27 H (9-20) mg/dL Creatinine 0.49 L (0.66-1.25) mg/dL Estimated GFR > 60 (>60) mL/min BUN/Creatinine Ratio 55.1 H (6-22) Glucose 250 H (70-99) mg/dL POC Whole Bld Glucose (70-99) mg/dL Lactate 5.4 H* 1.4 (0.7-2.1) mmol/L Calcium 8.1 L (8.4-10.2) mg/dL Total Bilirubin 0.3 (0.2-1.3) mg/dL AST 40 (17-59) IU/L ALT 32 (<50) IU/L Alkaline Phosphatase 113 (38-126) U/L Total Protein 7.3 (6.3-8.2) g/dL Albumin 3.5 (3.5-5.0) g/dL Globulin 3.8 (1.7-4.1) g/dL Albumin/Globulin Ratio 0.9 L (1.0-2.8) Procalcitonin 0.245 (<0.5) ng/mL Urine Color Urine Appearance Urine pH (4.5-8.0) Ur Specific [place] (1.000-1.035) Urine Protein (Negative) Urine Glucose (UA) (Negative) g/dL Urine Ketones (NEGATIVE) Urine Occult Blood (Negative) Urine Nitrate (Negative) Urine Bilirubin (NEGATIVE) Urine Urobilinogen (0.2) E.U./dL Ur Leukocyte Esterase (NEGATIVE) Urine RBC (0-5/HPF) Urine WBC (0-5/HPF) Ur Squamous Epith Cells (0-5/HPF) Amorphous Sediment Urine Bacteria (None) Ur Culture Indicated? Vol Urine Centrifuged A.calcoaceticus-baumannii cmplx PCR (Not Detect) Bacteroides fragilis (Not Detect) [place] albicans (PCR) (Not Detect) Victoria auris (PCR) (Not Detect) C. glabrata (PCR) (Not Detect) C. krusei (PCR) (Not Detect) C. parapsilosis (PCR) (Not Detect) C. tropicalis (PCR) (Not Detect) C. neoform/gattii (PCR) (Not Detect) Enterobacterales (PCR) (Not Detect) E. cloacae complex PCR (Not Detect) Enterococc faecalis PCR (Not Detect) Enterococc faecium PCR (Not Detect) E. coli (PCR) (Not Detect) H. influenzae (PCR) (Not Detect) Klebsiella aerogenes (PCR) (Not Detect) Klebsiella oxytoca PCR (Not Detect) Klebsiella pneumoniae (Not Detect) List. monocytogenes PCR (Not Detect) N. meningitidis (PCR) (Not Detect) Proteus species (PCR) (Not Detect) Salmonella spp. (PCR) (Not Detect) Serratia marcescens PCR (Not Detect) Staphylococcus sp PCR (Not Detect) Staph aureus (PCR) (Not Detect) mecA/C & MREJ Resist Gene (Not Detect) mecA/C-Methicil Resis Gene (Not Detect) mcr-1 Colistin Res Gene PCR (Not Detect) Staph epidermidis (PCR) (Not Detect) Staph lugdunensis PCR (Not Detect) S. maltophilia (PCR) (Not Detect) Streptococcus sp PCR (Not Detect) Group A Strep (PCR) (Not Detect) Strep agalactiae (PCR) (Not Detect) Strep pneumoniae (PCR) (Not Detect) P. aeruginosa (PCR) (Not Detect) Carlene/B-Vanco Res Genes (Not Detect) blaIMP Car res Gene PCR (Not Detect) KPC-Carbap Res Gene PCR (Not Detect) blaNDM Car Res Gene PCR (Not Detect) OXA-48 Carbapenem Resis Gene (PCR) (Not Detect) blaVIM Car Res Gene PCR (Not Detect) CTX-M Gene Resistance (PCR) (Not Detect) Blood Type Antibody Screen 06/14/25 06/14/25 06/14/25 Range/Units 15:36 18:02 18:11 WBC (4.5-11.0) X10^3/uL RBC (4.5-5.9) X10^6/uL Hgb (13.5-17.5) g/dL Hct (41-53) % MCV (80-100) fL MCH (26-34) PG MCHC (30-36) % RDW (11.6-14.8) % Plt Count (150-400) X10^3/uL Neut % (Auto) (50-75) % Lymph % (Auto) (25-40) % [place] % (Auto) (3-14) % Eos % (Auto) (2-4) % Baso % (Auto) (0-2) % Neut # (Auto) (6496-8624) /uL Lymph # (Auto) (8077-8106) /uL [place] # (Auto) (0-900) /uL Eos # (Auto) (0-450) /uL Baso # (Auto) (0-100) /uL VBG pH (7.33-7.43) VBG pCO2 (45-50) mmHg VBG pO2 (35-45) mmHg VBG HCO3 (24-28) mmol/L VBG Total CO2 (24-29) mmol/L VBG O2 Saturation (70-75) % VBG Base Excess (0-4) mmol/L FiO2 % % Sodium (137-145) mmol/L Potassium (3.4-5.1) mmol/L Chloride (98-107) mmol/L Carbon Dioxide (22-32) mmol/L BUN (9-20) mg/dL Creatinine (0.66-1.25) mg/dL Estimated GFR (>60) mL/min BUN/Creatinine Ratio (6-22) Glucose (70-99) mg/dL POC Whole Bld Glucose 197 H (70-99) mg/dL Lactate (0.7-2.1) mmol/L Calcium (8.4-10.2) mg/dL Total Bilirubin (0.2-1.3) mg/dL AST (17-59) IU/L ALT (<50) IU/L Alkaline Phosphatase (38-126) U/L Total Protein (6.3-8.2) g/dL Albumin (3.5-5.0) g/dL Globulin (1.7-4.1) g/dL Albumin/Globulin Ratio (1.0-2.8) Procalcitonin (<0.5) ng/mL Urine Color Yellow Urine Appearance Clear Urine pH 7.5 (4.5-8.0) Ur Specific [place] 1.010 (1.000-1.035) Urine Protein 2+ H (Negative) Urine Glucose (UA) Negative (Negative) g/dL Urine Ketones Negative (NEGATIVE) Urine Occult Blood 3+ H (Negative) Urine Nitrate Negative (Negative) Urine Bilirubin Negative (NEGATIVE) Urine Urobilinogen 0.2 (0.2) E.U./dL Ur Leukocyte Esterase Negative (NEGATIVE) Urine RBC 10-30/hpf H (0-5/HPF) Urine WBC None seen (0-5/HPF) Ur Squamous Epith Cells None seen (0-5/HPF) Amorphous Sediment 2+ Urine Bacteria Few (2-10) H (None) Ur Culture Indicated? Cult not indicated Vol Urine Centrifuged 10ml (spun) A.calcoaceticus-baumannii cmplx PCR (Not Detect) Bacteroides fragilis (Not Detect) Victoria albicans (PCR) (Not Detect) Victoria auris (PCR) (Not Detect) C. glabrata (PCR) (Not Detect) C. krusei (PCR) (Not Detect) C. parapsilosis (PCR) (Not Detect) C. tropicalis (PCR) (Not Detect) C. neoform/gattii (PCR) (Not Detect) Enterobacterales (PCR) (Not Detect) E. cloacae complex PCR (Not Detect) Enterococc faecalis PCR (Not Detect) Enterococc faecium PCR (Not Detect) E. coli (PCR) (Not Detect) H. influenzae (PCR) (Not Detect) Klebsiella aerogenes (PCR) (Not Detect) Klebsiella oxytoca PCR (Not Detect) Klebsiella pneumoniae (Not Detect) List. monocytogenes PCR (Not Detect) N. meningitidis (PCR) (Not Detect) Proteus species (PCR) (Not Detect) Salmonella spp. (PCR) (Not Detect) Serratia marcescens PCR (Not Detect) Staphylococcus sp PCR (Not Detect) Staph aureus (PCR) (Not Detect) mecA/C & MREJ Resist Gene (Not Detect) mecA/C-Methicil Resis Gene (Not Detect) mcr-1 Colistin Res Gene PCR (Not Detect) Staph epidermidis (PCR) (Not Detect) Staph lugdunensis PCR (Not Detect) S. maltophilia (PCR) (Not Detect) Streptococcus sp PCR (Not Detect) Group A Strep (PCR) (Not Detect) Strep agalactiae (PCR) (Not Detect) Strep pneumoniae (PCR) (Not Detect) P. aeruginosa (PCR) (Not Detect) Carlene/B-Vanco Res Genes (Not Detect) blaIMP Car res Gene PCR (Not Detect) KPC-Carbap Res Gene PCR (Not Detect) blaNDM Car Res Gene PCR (Not Detect) OXA-48 Carbapenem Resis Gene (PCR) (Not Detect) blaVIM Car Res Gene PCR (Not Detect) CTX-M Gene Resistance (PCR) (Not Detect) Blood Type B Positive Antibody Screen Negative 06/15/25 Range/Units 06:21 WBC (4.5-11.0) X10^3/uL RBC (4.5-5.9) X10^6/uL Hgb (13.5-17.5) g/dL Hct (41-53) % MCV (80-100) fL MCH (26-34) PG MCHC (30-36) % RDW (11.6-14.8) % Plt Count (150-400) X10^3/uL Neut % (Auto) (50-75) % Lymph % (Auto) (25-40) % [place] % (Auto) (3-14) % Eos % (Auto) (2-4) % Baso % (Auto) (0-2) % Neut # (Auto) (6616-4325) /uL Lymph # (Auto) (6950-6596) /uL [place] # (Auto) (0-900) /uL Eos # (Auto) (0-450) /uL Baso # (Auto) (0-100) /uL VBG pH (7.33-7.43) VBG pCO2 (45-50) mmHg VBG pO2 (35-45) mmHg VBG HCO3 (24-28) mmol/L VBG Total CO2 (24-29) mmol/L VBG O2 Saturation (70-75) % VBG Base Excess (0-4) mmol/L FiO2 % % Sodium (137-145) mmol/L Potassium (3.4-5.1) mmol/L Chloride (98-107) mmol/L Carbon Dioxide (22-32) mmol/L BUN (9-20) mg/dL Creatinine (0.66-1.25) mg/dL Estimated GFR (>60) mL/min BUN/Creatinine Ratio (6-22) Glucose (70-99) mg/dL POC Whole Bld Glucose (70-99) mg/dL Lactate (0.7-2.1) mmol/L Calcium (8.4-10.2) mg/dL Total Bilirubin (0.2-1.3) mg/dL AST (17-59) IU/L ALT (<50) IU/L Alkaline Phosphatase (38-126) U/L Total Protein (6.3-8.2) g/dL Albumin (3.5-5.0) g/dL Globulin (1.7-4.1) g/dL Albumin/Globulin Ratio (1.0-2.8) Procalcitonin (<0.5) ng/mL Urine Color Urine Appearance Urine pH (4.5-8.0) Ur Specific [place] (1.000-1.035) Urine Protein (Negative) Urine Glucose (UA) (Negative) g/dL Urine Ketones (NEGATIVE) Urine Occult Blood (Negative) Urine Nitrate (Negative) Urine Bilirubin (NEGATIVE) Urine Urobilinogen (0.2) E.U./dL Ur Leukocyte Esterase (NEGATIVE) Urine RBC (0-5/HPF) Urine WBC (0-5/HPF) Ur Squamous Epith Cells (0-5/HPF) Amorphous Sediment Urine Bacteria (None) Ur Culture Indicated? Vol Urine Centrifuged A.calcoaceticus-baumannii cmplx PCR Not detected (Not Detect) Bacteroides fragilis Not detected (Not Detect) Victoria albicans (PCR) Not detected (Not Detect) Victoria auris (PCR) Not detected (Not Detect) C. glabrata (PCR) Not detected (Not Detect) C. krusei (PCR) Not detected (Not Detect) C. parapsilosis (PCR) Not detected (Not Detect) C. tropicalis (PCR) Not detected (Not Detect) C. neoform/gattii (PCR) Not detected (Not Detect) Enterobacterales (PCR) Not detected (Not Detect) E. cloacae complex PCR Not detected (Not Detect) Enterococc faecalis PCR Not detected (Not Detect) Enterococc faecium PCR Not detected (Not Detect) E. coli (PCR) Not detected (Not Detect) H. influenzae (PCR) Not detected (Not Detect) Klebsiella aerogenes (PCR) Not detected (Not Detect) Klebsiella oxytoca PCR Not detected (Not Detect) Klebsiella pneumoniae Not detected (Not Detect) List. monocytogenes PCR Not detected (Not Detect) N. meningitidis (PCR) Not detected (Not Detect) Proteus species (PCR) Not detected (Not Detect) Salmonella spp. (PCR) Not detected (Not Detect) Serratia marcescens PCR Not detected (Not Detect) Staphylococcus sp PCR Detected (Not Detect) Staph aureus (PCR) Not detected (Not Detect) mecA/C & MREJ Resist Gene Not applicable (Not Detect) mecA/C-Methicil Resis Gene Detected (Not Detect) mcr-1 Colistin Res Gene PCR Not applicable (Not Detect) Staph epidermidis (PCR) Detected (Not Detect) Staph lugdunensis PCR Not detected (Not Detect) S. maltophilia (PCR) Not detected (Not Detect) Streptococcus sp PCR Not detected (Not Detect) Group A Strep (PCR) Not detected (Not Detect) Strep agalactiae (PCR) Not detected (Not Detect) Strep pneumoniae (PCR) Not detected (Not Detect) P. aeruginosa (PCR) Not detected (Not Detect) Carlene/B-Vanco Res Genes Not applicable (Not Detect) blaIMP Car res Gene PCR Not applicable (Not Detect) KPC-Carbap Res Gene PCR Not applicable (Not Detect) blaNDM Car Res Gene PCR Not applicable (Not Detect) OXA-48 Carbapenem Resis Gene (PCR) Not applicable (Not Detect) blaVIM Car Res Gene PCR Not applicable (Not Detect) CTX-M Gene Resistance (PCR) Not applicable (Not Detect) Blood Type Antibody Screen Imaging Data CT chest abdomen pelvis: Radiologist's Impression: PROCEDURE: CT CHEST ABD PEL W CON INDICATIONS: sepsis source TECHNIQUE: After the administration of intravenous contrast, 5 mm thick sections acquired from the lung apices to the symphysis. 5 mm coronal and sagittal reformats were performed, with additional 7 mm MIP reformats through the lungs. For radiation dose reduction, the following was used: automated exposure control, adjustment of mA and/or kV according to patient size. COMPARISON: [facility], CT, CT ANGIO CHEST PE PROTOCOL, 11/21/2024, 20:22. [facility], CT, CT ABDOMEN PELVIS W CON, 05/29/2025, 2:18. [facility], CT, CT CHEST ABD PEL W CON, 01/17/2020, 23:36. FINDINGS: Image quality: Excellent. CHEST: Lower Neck: No enlarged lymph nodes. Thyroid: No thyroid nodules which require sonographic follow up, per consensus guidelines.. Axillae: No enlarged lymph nodes. Chest Wall: Unremarkable. Lungs and Pleura: There is mediastinal shift to the left and decreased left lung volume unchanged from previous study. Extensive airspace opacities are noted throughout left hemithorax with small left pleural effusion. No pneumothorax. Tracheostomy tube tip is above the jessy. Bronchiectasis in left upper lobe is again seen. Fluid and debris is again noted within left mainstem bronchus extending to left upper and lower lobe bronchi Small infiltrate/atelectasis also seen in posterior aspect of right lower lobe. Heart: Heart size is mildly enlarged. No pericardial effusion. Thoracic Vessels: The aorta and pulmonary arteries demonstrate normal size. Mediastinum and Aniya: Prominent mediastinal lymph nodes are seen Esophagus: No wall thickening. No significant hiatal hernia. ABDOMEN: Liver: No solid mass. Gallbladder: Cholelithiasis with suggestion of gallbladder wall thickening and mild pericholecystic fluid. Biliary ducts: No biliary dilation. Pancreas: No ductal dilation. Spleen: Size is within normal limits. Adrenal Glands: No adrenal nodules. Kidneys and Ureters: No hydronephrosis. No solid mass. No complex renal cystic lesion which requires follow up. Stomach and Bowel: Fluid-filled small bowel loops are noted throughout abdomen with questionable small bowel wall thickening concerning for infectious or inflammatory enteritis. [id number] fecal stasis in the colon is seen. No abscess collection. Jejunostomy tube is seen on the left side. Peritoneum: No abnormal intraperitoneal fluid. No free air. Ventral Wall: No significant ventral hernia. Generalized anasarca. Abdominal Nodes: No retroperitoneal or mesenteric adenopathy by size criteria. Vessels: Aorta and inferior vena cava are normal in size. PELVIS: Pelvic Organs: Unremarkable. Bladder: Jones catheter is seen in a decompressed urinary bladder. Pelvic Nodes: No enlarged lymph nodes. Miscellaneous: No inguinal hernias are seen. Bones: No aggressive osseous abnormality. IMPRESSION: 1. Chronic appearing loss of left lung volume with mediastinal shift to the left. Extensive airspace opacity and atelectasis in left upper and lower lobes concerning for left-sided multilobar infiltrates. Small ill-defined infiltrate versus atelectasis in posterior aspect of right lower lobe. Small left greater than right bilateral pleural effusion. No pneumothorax. Stable fluid and debris within left mainstem bronchus extending to left upper and lower lobe bronchi not significantly changed from prior study. 2. Enlarged mediastinal and hilar lymph nodes which may be reactive in nature. 3. Finding is concerning for infectious or inflammatory enteritis. No evidence of bowel obstruction. No abscess collection. No free fluid or free air. Generalized anasarca. 4. Cholelithiasis with gallbladder wall thickening and mild pericholecystic inflammatory changes concerning for cholecystitis suggest clinical correlation. 5. Other chronic findings as above. Dictated by: Jarocho Garzon M.D. on 06/14/2025 at 17:55 MDM Narrative Medical decision making narrative: Patient brought in by ambulance from home for complaints of abdominal pain. Patient recently had G-tube placed. Patient has history of trach. Patient has history of cerebral palsy history of pulmonary embolism patient recently had G-tube replacement in April here. Mother at bedside. States that patient complained of shortness of breath at home and is the reason why he is here today. Vital signs noted. Patient is not stable to go cat scan imaging at this time. X-ray imaging will be ordered for chest and abdomen. Sepsis protocol has been initiated. MDM After history and exam, CBC CMP procalcitonin lactic acid blood culture cefepime x-ray chest x-ray abdomen urinalysis Levophed normal saline Differential considered: Includes but not limited to sepsis pneumonia GI bleed bacteremia Medical records reviewed: Discharge summary June 04, 2025 from this hospital Lab Test results independently reviewed as above. Pertinent findings: WBC 17.7 hemoglobin 8.1 hematocrit 26 VBG 7.27, 40.5, 42, 19 sodium 131 potassium 5.5 BUN 27 creatinine 0.49 GFR greater than 60. Lactic acid 5.4 calcium 8.1 procalcitonin 0.245 Independently reviewed EKG sinus tachycardia rate 125 Imaging studies independently reviewed: Chest x-ray abdominal x-ray no acute finding Consultations: Re-evaluations: 3 p.m.. Updated mother. Patient will need to be transferred as we do not have ICU bed here. She does understand patient is very ill very sick. She states patient is full code and full treatment. Discussion: 3:[address] Llamas: Sign-out to Dr. Morataya, patient needs ICU bed. Patient being treated for sepsis unknown origin at this time. Patient on Levophed patient given cefepime. IV fluids for sepsis protocol started. At this time patient is not stable for CT imaging. Patient does have a PICC line in place. Diagnosis: Sepsis Dr Dasilva, care is assumed, chart is reviewed, patient is independently evaluated Baseline cerebral palsy with trach, G-tube placed in April, prior PE, chronic shortness of breath, chronic hypotension 1. Presumed sepsis, requiring fluid resuscitation, currently on pressors and cefepime was initiated after blood cultures obtained.. 2. Initial source of sepsis is unclear. He does have a trach he was suctioned this has been sent for culture. Trachea cultures from April of 2025 showed Pseudomonas Citrobacter Staph aureus oxacillin sensitive all of which should be sensitive to cefepime. Chest x-ray does not show obvious source. He does have some decubitus breakdown but this does not appear to be significantly infected. Nursing notes have taken pictures. He has redness over the entire sacrum, a small healing wound on the right side of larger approximately 2 cm in diameter wound into the muscle with eschar over it and some minor bleeding in an area that looks like was torn with bandaging that is not infected. initially too unstable to sent to CT scan. Now on pressors with blood pressure relatively stable and level of consciousness slightly increased he will go to CT scan. CT scan suggests multiple sources including chronic findings in the left lung that certainly could be secondarily infected, question of infectious or inflammatory enteritis without bowel obstruction. Also concerning for cholelithiasis with gallbladder wall thickening and mild pericholecystic inflammatory changes concerning for developing cholecystitis. Of note, liver enzymes currently are unremarkable. Re-evaluation of the patient does suggest pain with palpation in the right upper quadrant. He does not have obvious rebound or guarding 3. Persistent hypotension. Fluid responsive and responding to norepinephrine. In working on weaning nor epi down, at 6:00 p.m. he had decreased blood pressure, more tracheal secretions slight decrease in level of consciousness. Norepi was increased trachea was suctioned and he has responded appropriately Transfer options: Currently full at [facility], talking with [facility] in [place] and case is being reviewed. Mother is updated. At baseline patient is essentially paralyzed on the right side is able to talk when his trachea is appropriately occluded, we will carry on entire conversations and is able to use his motorized wheelchair without difficulty Patient is accepted at [facility], care is reviewed with the banquet manager. They have no records of this patient at all at their facility. We will make sure that all of his recent discharge summaries from the last couple of months or included with transfer packet to help with coordination of care. Waiting for bed and will call for transport [id number] Transport here Patient is having increasing tachypnea with respiratory rate in the 30s, increasing diaphoresis. Levophed is increased to 15 mics per minute, maps are just under 65. He has had 4 L of fluid and continuous 150 an hour for the last 6 hours. He is making urine. Pain seems to have been adequately addressed with a half a mg of Dilaudid. With slightly deteriorating condition care is reviewed with the banquet manager prior to transport. We will try BiPAP with his trach, currently it is uncuffed and we do not carry cuffed Will increase nor epi as needed [facility] accepting his care is aware of change in situation and likely arrival within 45 minutes 1120pm Shiley 6 fenestrated trach was available. Current noncuffed trach was removed and we attempted an 8 which did not fit through the previous trachea whole. The 6 past with minimal difficulty. With slight increasing pressure we are better able to suction and will be able to hopefully better ventilate during transport. He tolerated this trach transfer without any difficulty Critical Care Time <Bassam Llamas MD - Last Filed: 06/18/25 07:42> Critical Care Time Attestation: Critical Care Time 35 minutes: Critical care time is separate from other billable procedures. This critical care time includes consultation with family and other consulting doctors, review of records, and interpretation of data from labs, EKGs, imaging, etc. <Dinora Dasilva MD - Last Filed: 06/14/25 23:30> Critical Care Time Attestation: Critical Care Time 55 minutes: Critical care time is separate from other billable procedures. Critical care time is separate from other billable procedures. There is a high probability of a significant, sudden or life-threatening deterioration that requires my full and direct attention, intervention and personal management. This critical care time includes consultation with family and other consulting doctors, review of records, and interpretation of data from labs, EKGs and imaging as well as managements of sepsis with IV blood pressure management, multiple antibiotics, extensive discussions with multiple hospitals to arrange for transfer and ongoing nursing and trach management throughout his extended ER stay Discharge Plan Departure Patient Disposition: [facility] Clinical Impression: Decubitus ulcer, Acute cholecystitis Sepsis Qualifiers: Sepsis type: sepsis due to unspecified organism Sepsis acute organ dysfunction status: unspecified Qualified Code(s): A41.9 - Sepsis, unspecified organism Pneumonia Qualifiers: Pneumonia type: aspiration pneumonia Laterality: left Prescriptions: No Action (DME) XL mattress for semi-electric hospital bed See Rx Instructions .Route .MEDSUPPLY Qty: 1 0RF Rx Instructions: use daily as directed (DME) Disabled Parking Qty: 1 0RF Rx Instructions: I find this patient to be medically disabled and qualified for Disabled Parking as indicated, and signed, on the Accompanying Disabled Parking Application for Individuals ferrous sulfate 325 mg (65 mg iron) tablet 130 mg PO DAILY baclofen 5 mg/5 mL solution 5 mg PO DAILY Qty: 473 3RF Rx Instructions: Give 5mL via J-tube (DME) Battery Powered Lift Qty: 1 0RF Dose Instruction: As directed Rx Instructions: Use daily as directed for transfers to and from bed (DME) Power Chair tall Qty: 1 0RF Dose Instruction: As directed Rx Instructions: As directed for patient care with activities of daily living. Chair needs to tilt foreword and tilt backwards for patient care. Pt is 6 feet tall and will need to fit height. (DME) Shower Chair Qty: 1 0RF Rx Instructions: As directed for patient care with activities of daily living. Chair needs to tilt foreword and tilt backwards for patient care. Pt is 6 feet tall and will need to fit height. (DME) Semi-electric hospital bed Qty: 1 0RF Dose Instruction: As directed Rx Instructions: Semi-electric hospital bed to permit transfers to wheelchair and to attach traction equipment. Must be large enough and long enough to accommodate his height and weight. EDEN: 99 months (DME) Mattress See Rx Instructions .Route .MEDSUPPLY Qty: 1 0RF Rx Instructions: Long mattress for hospital bed Eliquis 5 mg tablet 5 mg PO BID Qty: 60 12RF folic acid 1 mg tablet 1 mg PO DAILY Qty: 90 3RF (DME) Lingraphica Communication Device See Rx Instructions .Route .MEDSUPPLY Qty: 1 0RF Rx Instructions: Evaluation for speech generating device. See online submission form for free trial of device. scopolamine base 1 mg over 3 days patch 3 day 1 patch topical Q3D Qty: 24 1RF sodium chloride 0.9 % solution for nebulization 2.5 ml inhalation Q12H PRN (Reason: shortness of breath or wheezing) Qty: 300 0RF (DME) suction catheter kit See Rx Instructions .Route .MEDSUPPLY Qty: 5 4RF Rx Instructions: [address] suction catheter (or equivalent) equipement and disposable. [employer] DME supply sertraline 100 mg tablet 200 mg PO DAILY Qty: 60 2RF Banatrol Plus Powder In Packet 1 ea PO 4XD Qty: 450 3RF (DME) BD Luer-Rafael Syringe 3 mL 20 gauge x 1 syringe See Rx Instructions .ROUTE .MEDSUPPLY Qty: 1 Patient Comments: USE FOR MUCOMYST Rx Instructions: As directed Glucagon Emergency Kit (human) 1 mg recon soln 1 mg IM ONCE (DME) blood-glucose meter [True Metrix Air Glucose Meter] Misc See Rx Instructions .ROUTE DAILY Qty: 1 Rx Instructions: As directed zinc oxide-cod liver oil Ointment topical Patient Comments: Desitin Topical Ointment. vitamin A and D Ointment 1 applic topical 6XD PRN midodrine 5 mg Tablet 5 mg TUBE Q4HR Qty: 100 0RF oxycodone 5 mg/5 mL Solution 5 mg TUBE Q4HR PRN (Reason: Pain, Moderate (4-6)) Qty: 60 0RF potassium chloride 20 mEq/15 mL Liquid 20 meq TUBE DAILY Qty: 500 0RF hydrocortisone [Cortef] 10 mg Tablet 20 mg PO BID Qty: 120 0RF fludrocortisone 0.1 mg Tablet 0.1 mg PO DAILY Qty: 100 0RF Dakin's Solution 0.125 % Solution 1 ml topical BID Qty: 100 0RF Referrals: Chucky Marshall MD [Primary Care Provider, Internal Medicine]
[2025-06-14] MEDS: SODIUM CHLORIDE 0.9% 666.78 ML IV (13:44)
[2025-06-14 13:59] LABS: Add Manual Diff / Slide Review NO; Hematocrit 25.7 % (41-53); Hemoglobin 8.1 g/dL (13.5-17.5); Lymphocytes Absolute Auto 3400 /uL (1100-4500); Mean Corpuscular HGB Conc 31.7 % (30-36); Mean Corpuscular Hemoglobin 26.8 PG (26-34); Mean Corpuscular Volume 84.7 fL (80-100); Platelet Count 581 X10^3/uL (150-400)
[2025-06-14 14:05] LABS: Alanine Aminotransferase 32 IU/L (<50); Albumin 3.5 g/dL (3.5-5.0); Albumin Globulin Ratio 0.9 (1.0-2.8); Alkaline Phosphatase 113 U/L (38-126); Blood Urea Nitrogen 27 mg/dL (9-20); Calcium 8.1 mg/dL (8.4-10.2); Carbon Dioxide 18 mmol/L (22-32); Chloride 100 mmol/L (98-107); Estimated Glomerular Filt Rate > 60 mL/min (>60); Globulin 3.8 g/dL (1.7-4.1); Glucose 250 mg/dL (70-99); HEMOLYSIS < 15 (0-50); Lactate (Lactic Acid) 5.4 mmol/L (0.7-2.1); Sodium 131 mmol/L (137-145); Total Protein 7.3 g/dL (6.3-8.2)
[2025-06-14 14:07] LABS: Potassium 5.5 mmol/L (3.4-5.1)
[2025-06-14] MEDS: CEFEPIME 2 GM in SODIUM CHLORIDE 0.9% 100 ML IV (14:17)
[2025-06-14 14:22] LABS: Procalcitonin 0.245 ng/mL (<0.5)
--- NOTE | 2025-06-14 14:36 | PC.NURSE ---
VBG drawn from picc line
[2025-06-14 14:55] LABS: Base Excess VBG -7.8 mmol/L (0-4); HCO3 VBG 19 mmol/L (24-28); Oxygen Saturation VBG 70 % (70-75); PCO2 VBG 40.5 mmHg (45-50); PO2 VBG 42 mmHg (35-45); Total CO2 VBG 18 mmol/L (24-29); pH VBG 7.27 (7.33-7.43)
--- NOTE | 2025-06-14 15:02 | RT ---
Called to ER 1 for trach Pt, pt airway patent and placed on trach aerosal mask at 45% Fio2. Trach ties secure, trach is uncuffed and no passy valve at bedside with pt.
[2025-06-14] MEDS: NOREPINEPHRINE BITARTRATE/D5W 4 MG/250 ML PLAST..BAG 25.004 MG IV (15:06)
[2025-06-14 15:21] LABS: Reflexed Lactate in 2 Hours Y
--- NOTE | 2025-06-14 15:40 | PC.NURSE ---
Pt position on right side,2 pillows placed under left side. Pts mother spoke with pt and he was uncomfortable from his bed sores on his bottom
--- NOTE | 2025-06-14 15:49 | PC.NURSE ---
type/screen and lactate drawn
[2025-06-14 16:07] LABS: Lactate 2HR (Lactic Acid Rflx) 1.4 mmol/L (0.7-2.1)
--- NOTE | 2025-06-14 16:14 | DI.CT.S_ITS ---
PROCEDURE: CT CHEST ABD PEL W CON INDICATIONS: sepsis source TECHNIQUE: After the administration of intravenous contrast, 5 mm thick sections acquired from the lung apices to the symphysis. 5 mm coronal and sagittal reformats were performed, with additional 7 mm MIP reformats through the lungs. For radiation dose reduction, the following was used: automated exposure control, adjustment of mA and/or kV according to patient size. COMPARISON: [facility], CT, CT ANGIO CHEST PE PROTOCOL, 11/21/2024, 20:22. [facility], CT, CT ABDOMEN PELVIS W CON, 05/29/2025, 2:18. [facility], CT, CT CHEST ABD PEL W CON, 01/17/2020, 23:36. FINDINGS: Image quality: Excellent. CHEST: Lower Neck: No enlarged lymph nodes. Thyroid: No thyroid nodules which require sonographic follow up, per consensus guidelines.. Axillae: No enlarged lymph nodes. Chest Wall: Unremarkable. Lungs and Pleura: There is mediastinal shift to the left and decreased left lung volume unchanged from previous study. Extensive airspace opacities are noted throughout left hemithorax with small left pleural effusion. No pneumothorax. Tracheostomy tube tip is above the jessy. Bronchiectasis in left upper lobe is again seen. Fluid and debris is again noted within left mainstem bronchus extending to left upper and lower lobe bronchi Small infiltrate/atelectasis also seen in posterior aspect of right lower lobe. Heart: Heart size is mildly enlarged. No pericardial effusion. Thoracic Vessels: The aorta and pulmonary arteries demonstrate normal size. Mediastinum and Aniya: Prominent mediastinal lymph nodes are seen Esophagus: No wall thickening. No significant hiatal hernia. ABDOMEN: Liver: No solid mass. Gallbladder: Cholelithiasis with suggestion of gallbladder wall thickening and mild pericholecystic fluid. Biliary ducts: No biliary dilation. Pancreas: No ductal dilation. Spleen: Size is within normal limits. Adrenal Glands: No adrenal nodules. Kidneys and Ureters: No hydronephrosis. No solid mass. No complex renal cystic lesion which requires follow up. Stomach and Bowel: Fluid-filled small bowel loops are noted throughout abdomen with questionable small bowel wall thickening concerning for infectious or inflammatory enteritis. [id number] fecal stasis in the colon is seen. No abscess collection. Jejunostomy tube is seen on the left side. Peritoneum: No abnormal intraperitoneal fluid. No free air. Ventral Wall: No significant ventral hernia. Generalized anasarca. Abdominal Nodes: No retroperitoneal or mesenteric adenopathy by size criteria. Vessels: Aorta and inferior vena cava are normal in size. PELVIS: Pelvic Organs: Unremarkable. Bladder: Jones catheter is seen in a decompressed urinary bladder. Pelvic Nodes: No enlarged lymph nodes. Miscellaneous: No inguinal hernias are seen. Bones: No aggressive osseous abnormality. IMPRESSION: 1. Chronic appearing loss of left lung volume with mediastinal shift to the left. Extensive airspace opacity and atelectasis in left upper and lower lobes concerning for left-sided multilobar infiltrates. Small ill-defined infiltrate versus atelectasis in posterior aspect of right lower lobe. Small left greater than right bilateral pleural effusion. No pneumothorax. Stable fluid and debris within left mainstem bronchus extending to left upper and lower lobe bronchi not significantly changed from prior study. 2. Enlarged mediastinal and hilar lymph nodes which may be reactive in nature. 3. Finding is concerning for infectious or inflammatory enteritis. No evidence of bowel obstruction. No abscess collection. No free fluid or free air. Generalized anasarca. 4. Cholelithiasis with gallbladder wall thickening and mild pericholecystic inflammatory changes concerning for cholecystitis suggest clinical correlation. 5. Other chronic findings as above. Dictated by: Jarocho Garzon M.D. on 06/14/2025 at 17:55 Approved by: Jarocho Garzon M.D. on 06/14/2025 at 18:04
[2025-06-14] MEDS: SODIUM CHLORIDE 0.9% 1,000 ML 1000 ML IV (16:23)
--- NOTE | 2025-06-14 17:11 | PC.NURSE ---
Pts breathing has improved. No longer appears in distress. Pt still tachypnic but appears to be breathing less shallow and pt is more relaxed
--- NOTE | 2025-06-14 17:14 | PC.NURSE ---
Repositioned pt,pillows placed on both side to bridge pt
[2025-06-14] MEDS: SODIUM CHLORIDE 0.9% 1,000 ML 150 ML IV ×2 (18:06→19:26)
--- NOTE | 2025-06-14 18:10 | PC.NURSE ---
Pt became diaphoretic,oxygen began to drop and bp dropped. Dr Dasilva aware,blood sugar checked-197. Pts levophed increased and a 3rd liter NS started per Dr Dasilva. Pts oxygen delivery system checked to make sure there were any problems with that and RT was called to suction the patient. After a few minutes pt was more awake,bp began to increase and O2 was 95%. Pts mother also said he was more responsive to her.
--- NOTE | 2025-06-14 18:23 | PC.NURSE ---
Dr Dasilva visualized wounds on pts bottom. Pictures taken,please see wound note for images.
--- NOTE | 2025-06-14 18:24 | PC.NURSE ---
Dr Dasilva verbally gave order to increase NS to bolus and then follow with 125ml maintance fluids
[2025-06-14] MEDS: VANCOMYCIN 1,250 MG/250 ML PIGGYBACK 250 MG IV (19:14)
[2025-06-14 20:37] LABS: Appearance Urine UA CLEAR; Bilirubin Urine UA NEGATIVE (NEGATIVE); Color Urine UA YELLOW; Glucose Urine UA NEGATIVE (Negative); Ketones Urine UA NEGATIVE (NEGATIVE); Leukocyte Esterase Urine UA NEGATIVE (NEGATIVE); Nitrite Urine UA NEGATIVE (Negative); Occult Blood Urine UA 3+ (Negative); Protein Urine UA 2+ (Negative); Specific Gravity Urine UA 1.010 (1.000-1.035); Urobilinogen Urine UA 0.2 E.U./dL (0.2); pH Urine UA 7.5 (4.5-8.0)
[2025-06-14 20:47] LABS: Culture Indicated Urine Cult Not Indicated
--- NOTE | 2025-06-14 20:52 | PC.NURSE ---
Spoke with Dr. Dasilva. Patient is to get 15mg/kg of acetaminophen. Patient weight 66.678kg. Confirmed with pharmacist, Danica Taylor, of [facility] that patient to get 1000 mg of IV acetaminophen.
[2025-06-14] MEDS: ACETAMINOPHEN IV 1,000 MG/100 ML VIAL 400 MG IV (20:54)
--- NOTE | 2025-06-14 21:28 | PC.NURSE ---
This RN asks if patient pain of his bottom improved with IV acetaminophen and patient nods head and smiles. Unable to give a number on the pain scale at this time. Patient is responsive to this RN. GCS 15.
[2025-06-14] MEDS: NOREPINEPHRINE BITARTRATE/D5W 4 MG/250 ML PLAST..BAG 47.508 MG IV (21:30)
--- NOTE | 2025-06-14 22:46 | PC.NURSE ---
RT Flores at bedside and suctions patient via his trach tube.
--- NOTE | 2025-06-14 22:50 | PC.NURSE ---
Patient is clammy, covers pulled down, states his bottom still hurting. Provider Brown made aware of patient's pain and increased respirations and heart rate. Per Brown she will place an order for pain medication.
--- NOTE | 2025-06-14 23:09 | PC.NURSE ---
Provider Brown and Provider Samantha made aware of patient changing condition. Patient has increased respirations with abdominal breathing, heart rate increased, blood pressure dropping, with adjusting norepi drip up. Providers are both aware. RT at bedside and suctions patient again. Per RT Sandra clear, watery secretions coming out.
--- NOTE | 2025-06-14 23:11 | PC.NURSE ---
[employer] crew, including PERCY Vasquez, at bedside.
--- NOTE | 2025-06-14 23:20 | PC.NURSE ---
CARLOS GREER Pedro given report and takes over patient care.
--- NOTE | 2025-06-14 23:25 | PC.NURSE ---
Provider Brown at bedside placing cuffed trach tube in prep for ventilator. RT Sandra at bedside.
--- NOTE | 2025-06-14 23:33 | PC.NURSE ---
PERCY Pedro switching over norepi and fluids to his pumps.
[2025-06-14] MEDS: VASOPRESSIN 40 UNIT in SODIUM CHLORIDE 0.9% 100 ML 4.5 UNIT IV (23:52)
--- NOTE | 2025-06-15 00:07 | PC.NURSE ---
Transport remains at bedside. PERCY Angulo at bedside with patient and [employer] crew.
--- NOTE | 2025-06-15 00:48 | RT ---
call by rn to suction pt RR 34, spo2 100% suction clear small amount of sputum out, then 15 minutes later I suctioned again. Pt was complaining about not being able to breathe, dr Dasilva put a 6 cuffed shiley in so we could ventilate the pt. Pt was put on pressure support of 10, 50% o2, VT 450, RR 25 peep 5 pt RR down to 23, BP unstable but pt is more relaxed
[2025-06-15 00:53] VITALS: RESP 34; O2SAT 100
[2025-06-15 07:34] LABS: Acinetobacter calcoa-baumannii Not Detected (Not Detect); Bacteroides fragilis Not Detected (Not Detect); Candida auris Not Detected (Not Detect); Candida glabrata Not Detected (Not Detect); Cryptococcus neoformans/gatti Not Detected (Not Detect); Enterobacterales Not Detected (Not Detect); Enterococcus faecalis Not Detected (Not Detect); Enterococcus faecium Not Detected (Not Detect); Klebsiella aerogenes Not Detected (Not Detect); Proteus species Not Detected (Not Detect); Serratia marcescens Not Detected (Not Detect); Staphylococcus epidermidis Detected (Not Detect); Staphylococcus lugdunensis Not Detected (Not Detect); Staphylococcus species Detected (Not Detect); Stenotrophomonas maltophilia Not Detected (Not Detect); Streptococcus agalactiae (Gr B Not Detected (Not Detect); Streptococcus pneumonia Not Detected (Not Detect); Streptococcus pyogenes (Gr A) Not Detected (Not Detect); Streptococcus species Not Detected (Not Detect); mecA/C Resistance Detected (Not Detect)
== END 2025-06-15 00:10 | disposition short-term general hospital (02) ==
PROVIDERS: Emergency Medicine; Emergency Provider Emergency Medicine; Family Provider Internal Medicine; PCP Internal Medicine
DX: K81.0 Acute cholecystitis (principal); A41.9 Sepsis, unspecified organism; J18.9 Pneumonia, unspecified organism; R10.9 Unspecified abdominal pain; R00.0 Tachycardia, unspecified; L89.90 Pressure ulcer of unspecified site, unspecified stage; I95.9 Hypotension, unspecified; Z93.0 Tracheostomy status; Z86.711 Personal history of pulmonary embolism; Z79.01 Long term (current) use of anticoagulants
CPT/HCPCS: 36415; 71045; 71260; 74018; 74177; 80053; 81001; 82805; 82962; 83605; 84145; 85025; 86850; 86900; 86901; 87040; 87077; 87154; 87186; 93005; 93010; 94799; 96365; 96366; 96367; 96368; 99285; 99291; J0131; J0692; J3375; Q9967

== ENCOUNTER 2025-07-10 15:32 | Inpatient (IN) | payer MEDICARE, MEDICAID, OTHER, SELFPAY ==
[2025-05-27 09:05] VITALS: PULSE 89; RESP 16; O2SAT 100
[2025-05-29 13:40] VITALS: BMI 22.6
[2025-07-10] VITALS (17 sets, daily range): BP systolic 98–110; BP diastolic 58–75; PULSE 75–88; RESP 20–31; TEMP 36.9; O2SAT 97–100; BMI 20.9
--- NOTE | 2025-07-10 16:03 | EKG_ITS ---
[address] [address] Test Date: 2025-07-10 Pat Name: Jonnie Christopher Department: Room: Gender: Male Promotions Manager: MADY : 1980 Requested By: Order Number: [id number] Reading MD: Daniel Zamora MD Measurements Intervals [place] Rate: 83 P: 93 SD: 110 QRS: 89 QRSD: 74 T: 89 QT: 372 QTc: 437 Interpretive Statements Sinus rhythm with short SD Electronically Signed On 07-11-2025 7:37:58 PDT by Daniel Zamora MD
--- NOTE | 2025-07-10 16:03 | DI.RAD.S_ITS ---
PROCEDURE: XR CHEST 1V INDICATIONS: Shortness of breath TECHNIQUE: One view of the chest was acquired. COMPARISON: [facility], CR, XR CHEST 1V, 06/14/2025, 14:01. FINDINGS: Surgical changes and devices: Tracheostomy. Lungs and pleura: Chronic volume loss and opacification in the left hemithorax, potentially worsened in the left lung base suggesting atelectasis and potentially fluid. The right lung is grossly clear. Mediastinum: Mediastinal contours appear normal. Heart size is normal. Bones and chest wall: No suspicious bony lesions. Overlying soft tissues appear unremarkable. IMPRESSION: Potential interval worsening of a process in the left hemithorax. There is chronic volume loss and opacity. There is a suggestion of possible development of basilar atelectasis and pleural fluid. Dictated by: Simón Boyer M.D. on 07/10/2025 at 17:11 Approved by: Simón Boyer M.D. on 07/10/2025 at 17:12
[2025-07-10 16:43] LABS: Add Manual Diff / Slide Review NO; Hematocrit 30.5 % (41-53); Hemoglobin 10.1 g/dL (13.5-17.5); Lymphocytes Absolute Auto 700 /uL (1100-4500); Mean Corpuscular HGB Conc 33.1 % (30-36); Mean Corpuscular Hemoglobin 27.8 PG (26-34); Mean Corpuscular Volume 83.9 fL (80-100); Platelet Count 283 X10^3/uL (150-400)
[2025-07-10 16:48] LABS: INR 1.3 (0.9-1.3); Prothrombin Time 15.2 SECONDS (9.4-12.5)
[2025-07-10 16:52] LABS: Lactate (Lactic Acid) 1.1 mmol/L (0.7-2.1)
[2025-07-10 16:53] LABS: Alanine Aminotransferase 129 IU/L (<50); Albumin 4.0 g/dL (3.5-5.0); Albumin Globulin Ratio 1.0 (1.0-2.8); Alkaline Phosphatase 117 U/L (38-126); Blood Urea Nitrogen 19 mg/dL (9-20); Calcium 9.0 mg/dL (8.4-10.2); Carbon Dioxide 29 mmol/L (22-32); Chloride 99 mmol/L (98-107); Estimated Glomerular Filt Rate > 60 mL/min (>60); Globulin 3.9 g/dL (1.7-4.1); Glucose 80 mg/dL (70-99); HEMOLYSIS < 15 (0-50); Potassium 4.3 mmol/L (3.4-5.1); Sodium 133 mmol/L (137-145); Total Protein 7.9 g/dL (6.3-8.2)
[2025-07-10 17:04] LABS: NT-proBNP (BNP-Adult 18+) 533 pg/mL (<125); Troponin I < 0.012 ng/mL (0.01-0.034)
--- NOTE | 2025-07-10 18:14 | PC.NURSE ---
Pt denies any shortness of breath, cough ,or hx of bleeding from his trach. Pt states he is here due to the blood he has noted over the last few days
--- NOTE | 2025-07-10 21:13 | ED_ITS ---
HPI - Recheck/Abnormal Lab/Rx General Chief Complaint: Recheck/Abnormal Lab/Rx Stated Complaint: feeding tube displaced, blood in trach suction Time Seen by Provider: 07/10/25 19:40 History of Present Illness HPI narrative: 45-year-old male with chart history of cerebral palsy, pseudobulbar palsy, developmental delay, jejunostomy feeding tube, tracheostomy tube, dysarthria, spasticity, recurrent pneumonia, spastic hemiparesis left nondominant side. Mother at bedside reports feeding tube has been in place for at least the last couple of years, been replaced here and also had [place], current to place 2 months ago although she can not recall the location. Jejunostomy feeding tube fell out a few hours ago. Also had scant blood in tracheostomy tube that was suctioned away. History of prior pneumonia. Not currently on antibiotics. Recent hospital stay 2 months ago for perforated G-tube with gastric contents into the peritoneum, sepsis, G-tube removed and subsequent placement of a new J- tube. History of prior pulmonary embolus, taking Eliquis chronic anticoagulation. History of adrenal insufficiency, on chronic oral/J-tube mineralocorticoids. Related Data Home Medications ?Medication ?Instructions ?Recorded ?Confirmed ferrous sulfate 325 mg (65 mg 130 mg PO DAILY 10/29/21 06/25/25 iron) tablet syringe with needle 3 mL 20 gauge #1 ea 08/10/2306/25 x 1 (BD Luer-Rafael Syringe) blood-glucose meter (True Metrix #1 ea 12/05/24 Air Glucose Meter) glucagon 1 mg solution for 1 mg IM ONCE 12/05/2406/25 injection (Glucagon Emergency Kit) vitamin A and D 1 applic topical 6XD PRN 06/25/25 zinc oxide-cod liver oil topical ea topical 06/06/25 1 ointment Previous Rx's ?Medication ?Instructions ?Recorded Battery Powered Lift #1 ea 03/02/18 Power Chair #1 ea 10/16/18 Disabled Parking #1 ea 01/15/19 Shower Chair #1 ea 07/04/19 XL mattress for semi-electric #1 ea 09/27/22 hospital bed baclofen 5 mg/5 mL oral solution 5 mg (5 mL) PO DAILY #473 mL 01/20/23 Mattress #1 ea 03/28/24 Semi-electric hospital bed #1 ea 03/28/24 apixaban 5 mg tablet (Eliquis) 5 mg PO BID #60 tabs folic acid 1 mg tablet 1 mg PO DAILY #90 tabs 12/13 [employer] Communication Device #1 ea 01/23/25 scopolamine base 1 mg over 3 days 1 patch topical Q3D #24 ea 03/15/25 transdermal patch sodium chloride 0.9 % for 2.5 ml inhalation Q12H PRN 0 03/15/25 nebulization shortness of breath or [place] ing #300 mL suction catheter kit #5 ea 03/20/25 sertraline 100 mg tablet 200 mg (2 x 100 mg) PO DAILY #60 05/01/25 tabs banana 1 ea PO 4XD #450 ea 05/02/25 flakes-transgalactooligosaccharide oral powder packet (Banatrol Plus oral powder packet) fludrocortisone 0.1 mg tablet 0.1 mg PO DAILY #100 tab s 06/03/25 hydrocortisone 10 mg tablet 20 mg (2 x 10 mg) PO BID # 120 tabs 06/03/25 (Cortef) midodrine 5 mg tablet 5 mg TUBE Q4HR #100 tabs oxycodone 5 mg/5 mL oral solution 5 mg (5 mL) TUBE Q4H R PRN Pain, 06/03/25 Moderate (4-6) #60 mL sodium hypochlorite 0.125 % 1 ml topical BID #100 mL 0 06/03/25 solution (Dakin's Solution) Disposable Cannula for Trach size #1 ea 06/25/25 XLT, 60xltin, 6.0MMID, [facility] brand, inner cannula lansoprazole 30 mg capsule,delayed 30 mg PO BID #60 ca ps 06/25/25 release levofloxacin 750 mg tablet 750 mg PO DAILY #6 tabs 04/12 potassium chloride 20 mEq/15 mL 20 meq (15 mL) PO VALE Y #500 mL 06/25/25 oral liquid Allergies Allergy/AdvReac Type Severity Reaction Status Date / Time Penicillins (PENICILLINS) Allergy Severe RASH Verified 06/14/25 13:26 levofloxacin Allergy Intermediate Rash Verified 09/26/25 13:26 Patient History Medical History Anemia Cerebral palsy Chronic adrenal insufficiency Chronic anticoagulation Chronic anticoagulation Depression Depression, major, recurrent Difficulty with speech Dysarthria Dysphagia Former smoker Gingivitis History of pulmonary embolism Hyponatremia Influenza A Iron deficiency anemia Jejunostomy tube present Pneumonia Protein calorie malnutrition Pseudobulbar palsy Recurrent aspiration pneumonia Sacral decubitus ulcer, stage III 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 Father No problems noted. Social History marital status: unmarried,single details: Lives independantly with part-time caregivers household members: caregiver lives independently: Yes occupational status: disabled alcohol intake: former substance use type: marijuana alcohol intake frequency: 0-2 drinks per day Exam Narrative Exam Narrative: GENERAL: Well-developed patient, in mild distress. HEAD: Atraumatic. Normocephalic. EYES: Pupils equal and round. Conjugate gaze. Noninjected white sclerae. ENT: Anterior tracheostomy in place. No obvious acute craniofacial trauma. NECK: Trachea midline. Non tender CARDIOVASCULAR: Regular rate and rhythm without murmurs, gallops, or rubs. RESPIRATORY: Clear to auscultation. Breath sounds equal bilaterally. No wheezes, rales, or rhonchi. GASTROINTESTINAL: Abdominal left mid quadrant J-tube site with feeding tube dislodged, sitting on his abdomen, no size markings obvious on extruded bone J- tube tubing, no obvious balloon component to the displaced dislodged tube. G- tube site without surrounding erythema or expressible fluid. No tenderness or wincing on palpation of nondistended abdomen. Bowel tones unremarkable without rushes or tinkles. EXTREMITIES: No edema or joint tenderness. BACK: Nontender without deformity or crepitance. No flank tenderness. NEURO: AOx3. Motor functions grossly nonfocal. SKIN: No rash or erythema of visible areas Initial Vital Signs Initial Vital Signs: Vital Signs Temperature 98.5 F 07/10/25 15:50 Pulse Rate 88 07/10/25 15:50 Respiratory Rate 26 H 07/10/25 15:50 Blood Pressure 101/73 07/10/25 15:50 Pulse Oximetry 98 07/10/25 15:50 Oxygen Delivery Method Room Air 07/10/25 15:50 Course Orders Ordered: ED Orders 07/11/25 01:02 CT abdomen pelvis w con Stat 07/11/25 06:00 CBC No Diff [Complete Blood Count NO DIFF] Stat CMP [Comprehensive Metabolic Panel] Stat Acetaminophen (Acetaminophen 325 Mg Tablet) 650 mg PO Q6H PRN PRN Reason: Fever/Mild Pain (1-3) Baclofen (Baclofen 10 Mg Tablet) 5 mg PO DAILY JOSE MANUEL Fludrocortisone Acetate (Fludrocortisone 0.1 Mg Tablet) 0.1 mg PO DAILY JOSE MANUEL Hydrocortisone (Hydrocortisone 10 Mg Tablet) 20 mg PO BID JOSE MANUEL Hydromorphone HCl (Hydromorphone Hcl 0.5 Mg/0.5 Ml Syringe) 0.5 mg IV Q2H PRN PRN Reason: Pain, Severe (7-10) Last Admin: 07/11/25 03:50 Dose: 0.5 mg Documented By: FM Sodium Chloride (Normal Saline 0.9%) 1,000 mls @ 100 mls/hr IV CONT JOSE MANUEL Midodrine (Midodrine Hcl 5 Mg Tablet) 5 mg TUBE Q4HR JOSE MANUEL Naloxone HCl (Naloxone 0.4 Mg/Ml Vial) 0.2 mg IV Q2MIN PRN PRN Reason: Opiate Reversal Ondansetron HCl (Ondansetron 4 Mg/2 Ml Inj) 4 mg IV Q8HR PRN PRN Reason: Nausea And Vomiting Oxycodone HCl (Oxycodone 5 Mg/5 Ml Oral Solution) 5 mg TUBE Q4HR PRN PRN Reason: Pain, Moderate (4-6) Promethazine HCl (Promethazine 12.5 Mg Supp) 12.5 mg AR Q6HR PRN PRN Reason: Nausea And Vomiting Scopolamine (Scopolamine 1 Patch) 1 patch TOP Q3D JOSE MANUEL Sertraline HCl (Sertraline 50 Mg Tablet) 200 mg PO DAILY JOSE MANUEL Discontinued Medications Albuterol (Albuterol 2.5 Mg/3 Ml Neb (Adult)) 2.5 mg INH NOW ONE Stop: 07/10/25 22:39 Last Admin: 07/10/25 23:16 Dose: 2.5 mg Documented By: DS Sodium Chloride (Normal Saline 0.9%) 1,000 mls @ 1,000 mls/hr IV BOLUS ONE Stop: 07/11/25 02:06 Piperacillin Sod/Tazobactam (Sod 3.375 gm/ Sodium Chloride) 100 mls @ 200 mls/hr IV NOW JOSE MANUEL Lidocaine HCl (Lidocaine 2% (Glydo) 6 Ml Gel) 6 ml TOP NOW ONE Stop: 07/10/25 23:10 Last Admin: 07/10/25 23:17 Dose: 6 ml Documented By: AB Non-Formulary Medication (Baclofen) 5 mg PO DAILY JOSE MANUEL Vital Signs Vital signs: Vital Signs - 8 hr 07/10/25 23:17 Pulse Rate 80 Respiratory Rate 20 Pulse Oximetry 97 Oxygen Delivery Method Room Air MDM - Recheck/Abnormal Lab/Rx Lab Data Attestation: I reviewed the patient's lab results. Lab results narrative: White blood cell count 4900, hemoglobin 10.1, platelets adequate. Glucose 80. We will function normal, serum CO2 and potassium normal. Sodium 133 slight low. Mild transaminitis, normal alkaline phosphatase and T bili. BNP 5 3 3 mild elevation. Troponin negative. INR 1.3 07/10/25 16:34 07/10/25 16:34 Labs: Lab Results 07/10/25 Range/Units 16:34 WBC 4.9 (4.5-11.0) X10^3/uL RBC 3.63 L (4.5-5.9) X10^6/uL Hgb 10.1 L (13.5-17.5) g/dL Hct 30.5 L (41-53) % MCV 83.9 (80-100) fL MCH 27.8 (26-34) PG MCHC 33.1 (30-36) % RDW 19.6 H (11.6-14.8) % Plt Count 283 (150-400) X10^3/uL Neut % (Auto) 74.9 (50-75) % Lymph % (Auto) 14.3 L (25-40) % [place] % (Auto) 7.8 (3-14) % Eos % (Auto) 1.6 L (2-4) % Baso % (Auto) 1.4 (0-2) % Neut # (Auto) 3600 (6789-7658) /uL Lymph # (Auto) 700 L (1119-4718) /uL [place] # (Auto) 400 (0-900) /uL Eos # (Auto) 100 (0-450) /uL Baso # (Auto) 100 (0-100) /uL PT 15.2 H (9.4-12.5) SECONDS INR 1.3 (0.9-1.3) Sodium 133 L (137-145) mmol/L Potassium 4.3 (3.4-5.1) mmol/L Chloride 99 (98-107) mmol/L Carbon Dioxide 29 (22-32) mmol/L BUN 19 (9-20) mg/dL Creatinine 0.32 L (0.66-1.25) mg/dL Estimated GFR > 60 (>60) mL/min BUN/Creatinine Ratio 59.4 H (6-22) Glucose 80 (70-99) mg/dL Lactate 1.1 (0.7-2.1) mmol/L Calcium 9.0 (8.4-10.2) mg/dL Total Bilirubin 0.2 (0.2-1.3) mg/dL AST 88 H (17-59) IU/L ALT 129 H (<50) IU/L Alkaline Phosphatase 117 (38-126) U/L Troponin I < 0.012 (0.01-0.034) ng/mL NT-Pro-B Natriuret Pep 533 H (<125) pg/mL Total Protein 7.9 (6.3-8.2) g/dL Albumin 4.0 (3.5-5.0) g/dL Globulin 3.9 (1.7-4.1) g/dL Albumin/Globulin Ratio 1.0 (1.0-2.8) Imaging Data Chest x-ray: Radiologist's Impression: [address] [address] XRay Report Signed Patient: Jonnie Christopher MR#: [id number] : 1980 Acct:[id number] Age/Sex: 45 / M Date of Service: 07/10/25 Loc: ED Accession Number: [id number] Procedure: XR chest 1V Ordering Provider: Bassam Llamas MD PROCEDURE: XR CHEST 1V INDICATIONS: Shortness of breath TECHNIQUE: One view of the chest was acquired. COMPARISON: [facility], CR, XR CHEST 1V, 06/14/2025, 14:01. FINDINGS: Surgical changes and devices: Tracheostomy. Lungs and pleura: Chronic volume loss and opacification in the left hemithorax, potentially worsened in the left lung base suggesting atelectasis and potentially fluid. The right lung is grossly clear. Mediastinum: Mediastinal contours appear normal. Heart size is normal. Bones and chest wall: No suspicious bony lesions. Overlying soft tissues appear unremarkable. IMPRESSION: Potential interval worsening of a process in the left hemithorax. There is chronic volume loss and opacity. There is a suggestion of possible development of basilar atelectasis and pleural fluid. Dictated by: Simón Boyer M.D. on 07/10/2025 at 17:11 Approved by: Simón Boyer M.D. on 07/10/2025 at 17:12 ECG Data Attestation: I personally reviewed and interpreted this ECG as follows: Interpretation: 1803, normal sinus rhythm with rate of 83, no obvious ST segment elevation or depression changes. AR 110, QRS 74, QTC 437. MDM Narrative Medical decision making narrative: 45-year-old male with history of cerebral palsy, has indwelling tracheostomy, feeding tube for the last couple of years, most recent change 2 months ago, feeding tube fell out a couple of hours ago, which did not seem to have any securing balloon component. Two months ago had G-tube perforation, sepsis, complicated hospital course, removal of prior G-tube, placement of new J-tube. History of pulmonary embolism, on chronic Eliquis anticoagulation. History of adrenal insufficiency, on chronic mineralocorticoids. J-tube site without erythema or discharge, abdomen nondistended without apparent wince or discomfort on palpation. Chest x-ray. IMPRESSION: Potential interval worsening of a process in the left hemithorax. There is chronic volume loss and opacity. There is a suggestion of possible development of basilar atelectasis and pleural fluid. See radiology report. Lab data: White blood cell count 4900, hemoglobin 10.1, platelets adequate. Glucose 80. We will function normal, serum CO2 and potassium normal. Sodium 133 slight low. Mild transaminitis, normal alkaline phosphatase and T bili. BNP 533 mild elevation. Troponin negative. INR 1.3 Atelectatic chest x-ray finding, no infiltrate mentioned left hemithorax. Trial of nebulized albuterol. Attempt to place a temporizing Jones catheter nonrigid if easily placed, no passage. Will consult General surgery. 0005, case discussed with surgery Dr. Garduno who will come see patient. 0100, seen by Dr Garduno, reports history of dislodged G-tube leading to denies emergency surgery for closure of previous G-tube and placement of new J-tube about [address] Abdomen Pelvis. 0120, Dr Garduno ordered Zosyn, history of penicillin allergy noted, history of quinolone allergy, no adverse reactions thus far with the infusion. He reviewed CT Abd/Pelvis scan, does not believe there to be any injury patterns or acute changes. Radiology report pending. He requests patient to be admitted to hospitalist service, further surgical consultation with Dr. Naqvi/Ploa for feeding tube replacement strategy, either replacement of J-tube or placement of an interval new G-tube. Patient takes Eliquis anticoagulation, which would need to be held before surgical interventions. Hospitalist paged. 0249, call back from hospitalist Dr. Hong who accepts patient for admission CT abdomen and pelvis teleradiology report. Impression: ?No acute bowel abnormality appreciated. Otherwise stable exam, with chronic atelectatic change left lung base, cholelithiasis, bilateral edema/inflammation of the subcutaneous tissues of the buttock, without obvious ulcers. Critical Care Time Critical Care Time Total Critical Care Time: 35 Attestation: The high probability of a clinically significant, sudden or life threatening deterioration of the [35] system(s) required my full and direct attention, intervention and personal management. The aggregate critical care time was [] minutes. This time is in addition to time spent performing reported procedures but includes the following: [x] Data Review and interpretation [x] Patient assessment and monitoring of vital signs [x] Documentation [x] Medication orders and management Discharge Plan Departure Patient Disposition: Admitted As Inpatient Clinical Impression: Dislodged jejunostomy tube Admit Date/Time: 07/11/25 02:44 Admit Provider: Norman Hong
[2025-07-10] MEDS: ALBUTEROL 2.5 MG/3 ML NEB (ADULT) INH (23:16)
[2025-07-10] MEDS: LIDOCAINE 2% (GLYDO) 6 ML GEL TOP (23:17)
[2025-07-11] VITALS (11 sets, daily range): BP systolic 105–114; BP diastolic 56–76; PULSE 66–81; RESP 19–35; TEMP 35.5–36.3; O2SAT 86–100; BMI 20.9
--- NOTE | 2025-07-11 | DI.US.S_ITS ---
PROCEDURE: US ABDOMEN LIMITED INDICATIONS: ELEVATED LIVER FUNCTION TESTS TECHNIQUE: Real-time focused scanning was performed of the abdomen, with image documentation. COMPARISON: [facility], CT, CT ABDOMEN PELVIS W CON, 07/11/2025, 1:11. [facility], CT, CT CHEST ABD PEL W CON, 06/14/2025, 16:45. [facility], US, US ABDOMEN LIMITED, 05/29/2025, 5:26. FINDINGS: The liver is prominent in size, yet demonstrates normal overall echogenicity. No lesions are seen. The gallbladder is contracted, which limits its evaluation. There is no biliary dilatation, the common bile duct measures 3 mm. The pancreas is not seen, secondary to overlying bowel gas. This evaluation is limited, secondary to the patient's inability to fully cooperate with the examination. IMPRESSION: Limited study demonstrating a liver that is prominent in size, yet with normal echogenicity. No focal liver lesions are seen. Dictated by: Johnnie Ramesh M.D. on 07/11/2025 at 9:20 Approved by: Johnnie Ramesh M.D. on 07/11/2025 at 9:22
--- NOTE | 2025-07-11 01:02 | DI.CT.S_ITS ---
PROCEDURE: CT ABDOMEN PELVIS W CON INDICATIONS: abdominal pain, recetn J-tube dislodged TECHNIQUE: After the administration of intravenous contrast, axial sections acquired from the lung bases to the pubic symphysis. Coronal and sagittal reformats were performed. For radiation dose reduction, the following was used: automated exposure control, adjustment of mA and/or kV according to patient size. COMPARISON: [facility], CT, CT ABDOMEN PELVIS W CON, 05/29/2025, 2:18. [facility], CT, CT CHEST ABD PEL W CON, 06/14/2025, 16:45. FINDINGS: Image quality: Diagnostic Lower chest: Left lung base consolidated region partially seen with trace adjacent effusion and bronchiectasis. Left hemithorax volume loss and leftward mediastinal shift as before. Liver: Unremarkable Gallbladder and biliary system: Cholelithiasis, nondilated Pancreas: No ductal dilation Spleen: Nonenlarged Adrenals: No discrete nodules Kidneys: No solid renal mass. No hydronephrosis. Vessels and lymph nodes: The main portal vein appears patent. There is no abdominal aortic aneurysm. No lymph nodes enlarged by size criteria. Bowel and peritoneum: Left upper abdominal jejunostomy tube tract is seen, without fluid collection in the region. There is no bowel obstruction. Right lower quadrant surgical changes. Moderate colonic and rectal fecal loading. No drainable abscess or ascites Body wall: Clop-qk-jcquhtse diffuse anasarca Pelvis: Bladder is unremarkable. Prostate is unremarkable on limited CT evaluation. Bones: Heterogeneous appearance of the bones with demineralization. Degenerative osseous findings. IMPRESSION: No bowel obstruction. A tract is seen from the prior jejunostomy, without fluid collection in the region. Chronic left lower lung opacity with bronchiectasis. Trace adjacent effusion. Moderate colorectal fecal loading. Other findings above No significant changes from the preliminary report. Dictated by: Dequan Shin M.D. on 07/11/2025 at 7:10 Approved by: Dequan Shin M.D. on 07/11/2025 at 7:16
--- NOTE | 2025-07-11 01:03 | PM.HP.IH.1 ---
History of Present Illness History of Present Illness Date Patient Seen: 07/11/25 Time Patient Seen: 12:30 Date of Onset of Symptoms: 07/10/25 Chief complaint: feeding tube displaced, blood in trach suction Narrative: Patient is a 45-year-old white male with a longstanding history of cerebral palsy and other palsy he is confined to a wheelchair with stage III decubitus. The patient previously had had a gastrostomy tube which was dislodged and he ended up having peritonitis had an emergency surgery with closure of the gastrostomy tube and placement of a jejunostomy tube 05/09/2025 proximally postop day 52. Patient was at home today when the J-tube was dislodged at home was brought in to have this replaced ER attempted to place it but was unsuccessful. Operative report shows that patient had a Witzel tunnel placed for the jejunostomy feeding tube the tract may have closed off already need to evaluate by x-ray prior to placing any tube to reduce the risk for perforating the small bowel. Patient is having no pain is alert. Meeting laboratory shows WBC of 4.9 hemoglobin 10.1 hematocrit is 30.5 platelets are 283,000 PT is 15.2 INR 1.3 sodium is 133 potassium 4.3 chloride 99 bicarb is 29 BUN of 19 creatinine 0.32 random blood sugar is 80 pro BNP is 533 alkaline phosphatase 4.0 total bilirubin is 0.2 AST is 88 ALT is 12 alkaline phosphatase is 117. Patient had a chest x-ray which shows severe left-sided atelectasis with a appears to be complete collapse of the lung. Tracheostomy tube is in place. Allergies: Penicillin and Levaquin Medications: Eliquis, baclofen, banana flakes, ferrous sulfate, fludrocortisone, folic acid, glucagon, hydrocortisone, Protonix, levofloxacin, midodrine, oxycodone, potassium chloride, scopolamine transdermal patch, sertraline, normal saline nebulizer, Dakin solution Past medical history: Corrective lenses, depression, disabled with cerebral palsy delayed learning left spastic paralysis history of recent GI bleed on Eliquis, recurrent pneumonias with aspiration pneumonias history of sepsis, history of PE in 2022, stage III decubitus. Mother denies any other heart lungs digestive musculoskeletal neurological seizure disorder psychiatric problems risks are Infectious diseases HIV or AIDS. Past surgical history: Appendectomy, tracheostomy, G-tube placement with subsequent exploratory surgery with removal of dislodged G-tube and placement of a J-tube with Witzel tunnel on 05/09/2025 postoperative day number 52, recent EGD colonoscopy for GI bleed no obvious source noted. Social history: Disabled, former smoker, no alcohol, history of marijuana use Vitals: Temperature is 98.5? pulse is 80 respirations 20 BP is 106/72 SaO2 is 97% on tracheostomy mask, the patient is 6 ft 0 in tall 155 lb Patient's examination is limited as patient is lying in a motorized wheelchair. Head is normocephalic eyes PERRLA oropharyngeal cavity is in various stages disrepair trach is in place with trach mask lungs are poor inspiratory and expiratory effort poor chest wall motion noted no real lung sounds are noted on the left side. Heart regular rate and rhythm abdomen soft nondistended hypoactive bowel sounds previous vertical incision in the abdomen is well healed no sign infection inflammation or hernias J-tube site is clear no signs of drainage or discharge musculoskeletal can not assess. Impression: Dislodged jejunostomy feeding tube postop day number 52 this was placed with a Witzel tunnel red rubber Maria catheter Cerebral palsy with other spastic paralysis Depression History of recent upper GI bleed on Eliquis Recurrent chronic pneumonia and aspiration pneumonia with history of sepsis History of PE in 2022 on Eliquis WBC 4.9 Plan: Unable to place the jejunostomy feeding tube at this time we will try to obtain x-ray guidance to see if a tract is available to place a smaller tube through if unable may need to have a replacement with exploratory surgery. Versus gastrostomy tube. We will admit to hospitalist we will evaluate for surgical feeding tube. All questions were answered to mother's satisfaction we will recheck laboratory in the morning we will follow patient closely [facility] Medical History Anemia Cerebral palsy Chronic adrenal insufficiency Chronic anticoagulation Chronic anticoagulation Depression Depression, major, recurrent Difficulty with speech Dysarthria Dysphagia Former smoker Gingivitis History of pulmonary embolism Hyponatremia Influenza A Iron deficiency anemia Jejunostomy tube present Pneumonia Protein calorie malnutrition Pseudobulbar palsy Recurrent aspiration pneumonia Sacral decubitus ulcer, stage III 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 Father No problems noted. Social History marital status: unmarried,single details: Lives independantly with part-time caregivers household members: caregiver lives independently: Yes occupational status: disabled alcohol intake: former substance use type: marijuana Meds Home Medications and Allergies Home Medications ?Medication ?Instructions ?Recorded ?Confirmed ?Type Battery Powered Lift #1 ea 03/02/18 06/25/25 Rx Power Chair #1 ea 10/16/18 06/25/25 Rx Disabled Parking #1 ea 01/15/19 06/25/25 Rx Shower Chair #1 ea 07/04/19 06/25/25 Rx ferrous sulfate 325 mg (65 mg 130 mg PO DAILY 10/29/21 06/25/25 History iron) tablet XL mattress for semi-electric #1 ea 09/27/22 06/25/25 Rx hospital bed baclofen 5 mg/5 mL oral solution 5 mg (5 mL) PO DAILY #473 mL 01/20/23 06/25/25 Rx syringe with needle 3 mL 20 gauge #1 ea 08/10/23 06/25/25 History x 1 (BD Luer-Rafael Syringe) Mattress #1 ea 03/28/24 06/25/25 Rx Semi-electric hospital bed #1 ea 03/28/24 06/25/25 Rx apixaban 5 mg tablet (Eliquis) 5 mg PO BID #60 tabs 08/15/24 06/25/25 Rx blood-glucose meter (True Metrix #1 ea 12/05/24 06/25/25 History Air Glucose Meter) glucagon 1 mg solution for 1 mg IM ONCE 12/05/24 06/25/25 History injection (Glucagon Emergency Kit) folic acid 1 mg tablet 1 mg PO DAILY #90 tabs 12/13/24 06/25/25 Rx Lingraphica Communication Device #1 ea 01/23/25 06/25/25 Rx scopolamine base 1 mg over 3 days 1 patch topical Q3D #24 ea 03/15/25 06/25/25 Rx transdermal patch sodium chloride 0.9 % for 2.5 ml inhalation Q12H PRN 03/15/25 06/25/25 Rx nebulization shortness of breath or wheezing #300 mL suction catheter kit #5 ea 03/20/25 06/25/25 Rx sertraline 100 mg tablet 200 mg (2 x 100 mg) PO DAILY #60 05/01/25 06/25/25 Rx tabs banana 1 ea PO 4XD #450 ea 05/02/25 06/25/25 Rx flakes-transgalactooligosaccharide oral powder packet (Banatrol Plus oral powder packet) fludrocortisone 0.1 mg tablet 0.1 mg PO DAILY #100 tabs 06/03/25 06/25/25 Rx hydrocortisone 10 mg tablet 20 mg (2 x 10 mg) PO BID #120 tabs 06/03/25 06/25/25 Rx (Cortef) midodrine 5 mg tablet 5 mg TUBE Q4HR #100 tabs 06/03/25 06/25/25 Rx oxycodone 5 mg/5 mL oral solution 5 mg (5 mL) TUBE Q4HR PRN Pain, 06/03/25 06/25/25 Rx Moderate (4-6) #60 mL sodium hypochlorite 0.125 % 1 ml topical BID #100 mL 06/03/25 06/25/25 Rx solution (Dakin's Solution) vitamin A and D 1 applic topical 6XD PRN 06/06/25 06/25/25 History zinc oxide-cod liver oil topical ea topical 06/06/25 06/25/25 History ointment Disposable Cannula for Trach size #1 ea 06/25/25 06/25/25 Rx XLT, 60xltin, 6.0MMID, [place]olis brand, inner cannula lansoprazole 30 mg capsule,delayed 30 mg PO BID #60 caps 06/25/25 06/25/25 Rx release levofloxacin 750 mg tablet 750 mg PO DAILY #6 tabs 06/25/25 06/25/25 Rx potassium chloride 20 mEq/15 mL 20 meq (15 mL) PO DAILY #500 mL 06/25/25 06/25/25 Rx oral liquid Allergies Allergy/AdvReac Type Severity Reaction Status Date / Time Penicillins (PENICILLINS) Allergy Severe RASH Verified 06/14/25 13:26 levofloxacin Allergy Intermediate Rash Verified 06/14/25 13:26 Exam Vital Signs (past 8 hours): - 07/10/25 17:46 07/10/25 17:54 07/10/25 17:54 Pulse Rate 85 84 Respiratory Rate Blood Pressure 100/64 101/67 Pulse Oximetry 98 97 Oxygen Delivery Method Trach Collar 07/10/25 18:00 07/10/25 18:01 07/10/25 18:01 Pulse Rate 81 85 Respiratory Rate 23 22 Blood Pressure 100/69 Pulse Oximetry 98 98 Oxygen Delivery Method 07/10/25 18:30 07/10/25 18:30 07/10/25 19:00 Pulse Rate 79 76 Respiratory Rate 22 21 Blood Pressure 101/75 Pulse Oximetry 100 99 Oxygen Delivery Method 07/10/25 19:30 07/10/25 19:30 07/10/25 23:17 Pulse Rate 78 80 Respiratory Rate 23 20 Blood Pressure 106/72 Pulse Oximetry 99 97 Oxygen Delivery Method Room Air Oxygen Delivery Method Room Air Objective Labs 07/10/25 16:34 07/10/25 16:34 Labs: Laboratory Results - last 24 hr 07/10/25 16:34 WBC 4.9 RBC 3.63 L Hgb 10.1 L Hct 30.5 L MCV 83.9 MCH 27.8 MCHC 33.1 RDW 19.6 H Plt Count 283 Neut % (Auto) 74.9 Lymph % (Auto) 14.3 L [place] % (Auto) 7.8 Eos % (Auto) 1.6 L Baso % (Auto) 1.4 Neut # (Auto) 3600 Lymph # (Auto) 700 L [place] # (Auto) 400 Eos # (Auto) 100 Baso # (Auto) 100 PT 15.2 H INR 1.3 Sodium 133 L Potassium 4.3 Chloride 99 Carbon Dioxide 29 BUN 19 Creatinine 0.32 L Estimated GFR > 60 BUN/Creatinine Ratio 59.4 H Glucose 80 Lactate 1.1 Calcium 9.0 Total Bilirubin 0.2 AST 88 H ALT 129 H Alkaline Phosphatase 117 Troponin I < 0.012 NT-Pro-B Natriuret Pep 533 H Total Protein 7.9 Albumin 4.0 Globulin 3.9 Albumin/Globulin Ratio 1.0 Assessment & Plan Time-Based Coding :: [TOTAL MINUTES] spent with patient and on the chart (including review of chart, obtaining history, exam, reviewing outside data, placing orders, documenting exam and treatment plan, and counseling patient) on [DATE]. PROFEE [employer] Document charge(s): Yes
--- NOTE | 2025-07-11 03:05 | PM.HP.1 ---
History of Present Illness History of Present Illness Chief complaint: feeding tube displaced, blood in trach suction Narrative: The pt is a 45 yo with severe CP, spastic hemiplegia, adrenal insullicency, with tracheostomy, decubitus stage III on the sacrum, wheelchair bound with a hx of G tube that fell out and caused peritonitis in April of this year at [facility] who has been living with his mother but he lost his current J-tube today. 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 Father No problems noted. Social History marital status: unmarried,single details: Lives independantly with part-time caregivers household members: caregiver lives independently: Yes occupational status: disabled alcohol intake: former substance use type: marijuana Meds Home Medications and Allergies Home Medications ?Medication ?Instructions ?Recorded ?Confirmed ?Type Battery Powered Lift #1 ea 03/02/18 06/25/25 Rx Power Chair #1 ea 10/16/18 06/25/25 Rx Disabled Parking #1 ea 01/15/19 06/25/25 Rx Shower Chair #1 ea 07/04/19 06/25/25 Rx ferrous sulfate 325 mg (65 mg 130 mg PO DAILY 10/29/21 06/25/25 History iron) tablet XL mattress for semi-electric #1 ea 09/27/22 06/25/25 Rx hospital bed baclofen 5 mg/5 mL oral solution 5 mg (5 mL) PO DAILY #473 mL 01/20/23 06/25/25 Rx syringe with needle 3 mL 20 gauge #1 ea 08/10/23 06/25/25 History x 1 (BD Luer-Rafael Syringe) Mattress #1 ea 03/28/24 06/25/25 Rx Semi-electric hospital bed #1 ea 03/28/24 06/25/25 Rx apixaban 5 mg tablet (Eliquis) 5 mg PO BID #60 tabs 08/15/24 06/25/25 Rx blood-glucose meter (True Metrix #1 ea 12/05/24 06/25/25 History Air Glucose Meter) glucagon 1 mg solution for 1 mg IM ONCE 12/05/24 06/25/25 History injection (Glucagon Emergency Kit) folic acid 1 mg tablet 1 mg PO DAILY #90 tabs 12/13/24 06/25/25 Rx Lingraphica Communication Device #1 ea 01/23/25 06/25/25 Rx scopolamine base 1 mg over 3 days 1 patch topical Q3D #24 ea 03/15/25 06/25/25 Rx transdermal patch sodium chloride 0.9 % for 2.5 ml inhalation Q12H PRN 03/15/25 06/25/25 Rx nebulization shortness of breath or wheezing #300 mL suction catheter kit #5 ea 03/20/25 06/25/25 Rx sertraline 100 mg tablet 200 mg (2 x 100 mg) PO DAILY #60 05/01/25 06/25/25 Rx tabs banana 1 ea PO 4XD #450 ea 05/02/25 06/25/25 Rx flakes-transgalactooligosaccharide oral powder packet (Banatrol Plus oral powder packet) fludrocortisone 0.1 mg tablet 0.1 mg PO DAILY #100 tabs 06/03/25 06/25/25 Rx hydrocortisone 10 mg tablet 20 mg (2 x 10 mg) PO BID #120 tabs 06/03/25 06/25/25 Rx (Cortef) midodrine 5 mg tablet 5 mg TUBE Q4HR #100 tabs 06/03/25 06/25/25 Rx oxycodone 5 mg/5 mL oral solution 5 mg (5 mL) TUBE Q4HR PRN Pain, 06/03/25 06/25/25 Rx Moderate (4-6) #60 mL sodium hypochlorite 0.125 % 1 ml topical BID #100 mL 06/03/25 06/25/25 Rx solution (Dakin's Solution) vitamin A and D 1 applic topical 6XD PRN 06/06/25 06/25/25 History zinc oxide-cod liver oil topical ea topical 06/06/25 06/25/25 History ointment Disposable Cannula for Trach size #1 ea 06/25/25 06/25/25 Rx XLT, 60xltin, 6.0MMID, Schiley brand, inner cannula lansoprazole 30 mg capsule,delayed 30 mg PO BID #60 caps 06/25/25 06/25/25 Rx release levofloxacin 750 mg tablet 750 mg PO DAILY #6 tabs 06/25/25 06/25/25 Rx potassium chloride 20 mEq/15 mL 20 meq (15 mL) PO DAILY #500 mL 06/25/25 06/25/25 Rx oral liquid Allergies Allergy/AdvReac Type Severity Reaction Status Date / Time Penicillins (PENICILLINS) Allergy Severe RASH Verified 06/14/25 13:26 levofloxacin Allergy Intermediate Rash Verified 06/14/25 13:26 Exam Vital Signs (past 8 hours): - 07/10/25 19:30 07/10/25 19:30 07/10/25 23:17 Pulse Rate 78 80 Respiratory Rate 23 20 Blood Pressure 106/72 Pulse Oximetry 99 97 Oxygen Delivery Method Room Air Oxygen Delivery Method Room Air Objective Labs 07/10/25 16:34 07/10/25 16:34 Labs: Laboratory Results - last 24 hr 07/10/25 16:34 WBC 4.9 RBC 3.63 L Hgb 10.1 L Hct 30.5 L MCV 83.9 MCH 27.8 MCHC 33.1 RDW 19.6 H Plt Count 283 Neut % (Auto) 74.9 Lymph % (Auto) 14.3 L [place] % (Auto) 7.8 Eos % (Auto) 1.6 L Baso % (Auto) 1.4 Neut # (Auto) 3600 Lymph # (Auto) 700 L [place] # (Auto) 400 Eos # (Auto) 100 Baso # (Auto) 100 PT 15.2 H INR 1.3 Sodium 133 L Potassium 4.3 Chloride 99 Carbon Dioxide 29 BUN 19 Creatinine 0.32 L Estimated GFR > 60 BUN/Creatinine Ratio 59.4 H Glucose 80 Lactate 1.1 Calcium 9.0 Total Bilirubin 0.2 AST 88 H ALT 129 H Alkaline Phosphatase 117 Troponin I < 0.012 NT-Pro-B Natriuret Pep 533 H Total Protein 7.9 Albumin 4.0 Globulin 3.9 Albumin/Globulin Ratio 1.0 Assessment & Plan Assessment & Plan narrative: I discussed the pt's presenting symptoms and problems with the ER provider and agree with the decision for admission. I have reviewed [facility] labs showing a normal WBC of 4, Na -133, k-3.3, INR of 1.3. CT scan of the abd is pending, CXR with showing near collapse of the left lung but this could be chronic. 1. Cerebral Palsy with malnutrition- General srgery has been consulted and evaluated the pt, we are holding the Eliquis in case surgery for the tube placement may be needed, 2. Adrenal Insufficiency- restarting home fludrocortisone and hydrocortisone, would give stress dose prior to surgery. 3. Chronic respiratory failure- CXR reviewed, will hve RT consulted, start breathing tx, maybe chest physiotherapy. I, Dr. Norman Hong in [place] has seen and evaluated Jonnie Christopher in [place] with audio/ visual telemedicine technology with pt/caregive consent and nursing assistance Time-Based Coding :: [TOTAL MINUTES] spent with patient and on the chart (including review of chart, obtaining history, exam, reviewing outside data, placing orders, documenting exam and treatment plan, and counseling patient) on [DATE].
[2025-07-11 05:12] LABS: Hematocrit 31.1 % (41-53); Hemoglobin 10.3 g/dL (13.5-17.5); Mean Corpuscular HGB Conc 32.9 % (30-36); Mean Corpuscular Hemoglobin 27.7 PG (26-34); Mean Corpuscular Volume 84.0 fL (80-100); Platelet Count 264 X10^3/uL (150-400)
[2025-07-11 05:29] LABS: Alanine Aminotransferase 111 IU/L (<50); Albumin 3.8 g/dL (3.5-5.0); Albumin Globulin Ratio 1.0 (1.0-2.8); Alkaline Phosphatase 111 U/L (38-126); Blood Urea Nitrogen 17 mg/dL (9-20); Calcium 8.9 mg/dL (8.4-10.2); Carbon Dioxide 27 mmol/L (22-32); Chloride 99 mmol/L (98-107); Estimated Glomerular Filt Rate > 60 mL/min (>60); Globulin 3.9 g/dL (1.7-4.1); Glucose 67 mg/dL (70-99); HEMOLYSIS < 15 (0-50); Potassium 4.1 mmol/L (3.4-5.1); Sodium 136 mmol/L (137-145); Total Protein 7.7 g/dL (6.3-8.2)
[2025-07-11 05:56] LABS: Phosphorous 3.7 mg/dL (2.5-4.5)
[2025-07-11] MEDS: SODIUM CHLORIDE 0.9% 1,000 ML 100 ML IV ×2 (06:24→06:36)
[2025-07-11 07:12] LABS: MRSA (Nasal) PCR DETECTED (Not Detect)
--- NOTE | 2025-07-11 07:52 | P.PN_ITS ---
Subjective Subjective Date Patient Seen: 07/11/25 Time Patient Seen: 07:30 Interval history: Patient is a 45-year-old white male was admitted through the emergency room with a dislodged jejunostomy feeding tube which was postop day number 52. The patient receiving no enteral nutrition or medications can not replace the J-tube at this time as patient is on Eliquis. Patient had a recent GI bleed on Eliquis but no obvious source was noted. We will go ahead and continue to manage the patient medically treat his decubitus and see about scheduling a feeding tube electively in the interim we will start a PICC line and started on hyperalimentation. Patient is awake is answering questions to shaking his head nonverbal as he still has a trach in place. Patient's morning laboratory shows WBC of 3.7 hemoglobin is 10.3 hematocrit is 31.1 platelets are 264,000 PT is 15.2 INR 1.3 sodium is 136 potassium 4.1 chloride 99 bicarb is 27 BUN 17 creatinine 0.34 random blood sugar is 67 lactate is 1.1 total bilirubin is 0.4 AST is 72 ALT is 111 alkaline phosphatase is 111. Vitals: Temperature is 97.4? pulse 68 respirations 20 BP is 110/56 SaO2 is 97% on trach mask Heart regular rate and rhythm. Lungs poor inspiratory and expiratory effort large amount of rhonchi are noted on the patient's left side. Abdomen is soft scaphoid patient's previous incision is well healed no signs of infection inflammation no signs of incisional hernias J-tube site is clear without any drainage. No masses or peritoneal signs. Impression: Dislodged PEG tube need for replacement of G-tube for meds and nutrition. History of cerebral palsy with other neurological deficits Stage III sacral decubitus History of PE on Eliquis History of recent GI bleed on Eliquis source was not determined. Slight elevation of liver enzymes rule out cholecystitis Plan: We will go ahead and hold the Eliquis at this time for possible replacement of PEG tube. Also we will check ultrasound for possible gallbladder disease place PICC line and hyperalimentation the patient had is Zosyn was discontinued by hospitalist we will place patient on meropenem has a patient has had a history of multiple aspiration pneumonias infections and placed on vancomycin as patient has had previous MRSA blood infections. Discussed patient's findings with mother previously we will continue with current medical management schedule feeding tube replacement on elective basis once Eliquis as been worn off. Exam Vital Signs (past 8 hours): - 07/11/25 03:45 Temperature 97.4 F L Pulse Rate 68 Blood Pressure 110/56 L Pulse Oximetry 97 Oxygen Delivery Method Room Air Objective Labs 07/11/25 05:03 07/11/25 05:03 Labs: Laboratory Results - last 24 hr 07/10/25 07/11/25 07/11/25 16:34 03:55 04:58 WBC 4.9 RBC 3.63 L Hgb 10.1 L Hct 30.5 L MCV 83.9 MCH 27.8 MCHC 33.1 RDW 19.6 H Plt Count 283 Neut % (Auto) 74.9 Lymph % (Auto) 14.3 L [place] % (Auto) 7.8 Eos % (Auto) 1.6 L Baso % (Auto) 1.4 Neut # (Auto) 3600 Lymph # (Auto) 700 L [place] # (Auto) 400 Eos # (Auto) 100 Baso # (Auto) 100 PT 15.2 H INR 1.3 Sodium 133 L Potassium 4.3 Chloride 99 Carbon Dioxide 29 BUN 19 Creatinine 0.32 L Estimated GFR > 60 BUN/Creatinine Ratio 59.4 H Glucose 80 POC Whole Bld Glucose 68 L Lactate 1.1 Calcium 9.0 Phosphorus Total Bilirubin 0.2 AST 88 H ALT 129 H Alkaline Phosphatase 117 Troponin I < 0.012 NT-Pro-B Natriuret Pep 533 H Total Protein 7.9 Albumin 4.0 Globulin 3.9 Albumin/Globulin Ratio 1.0 Nasal Screen MRSA (PCR) Detected H 07/11/25 05:03 WBC 3.7 L RBC 3.71 L Hgb 10.3 L Hct 31.1 L MCV 84.0 MCH 27.7 MCHC 32.9 RDW 19.2 H Plt Count 264 Neut % (Auto) Lymph % (Auto) [place] % (Auto) Eos % (Auto) Baso % (Auto) Neut # (Auto) Lymph # (Auto) [place] # (Auto) Eos # (Auto) Baso # (Auto) PT INR Sodium 136 L Potassium 4.1 Chloride 99 Carbon Dioxide 27 BUN 17 Creatinine 0.34 L Estimated GFR > 60 BUN/Creatinine Ratio 50.0 H Glucose 67 L POC Whole Bld Glucose Lactate Calcium 8.9 Phosphorus 3.7 Total Bilirubin 0.4 AST 72 H ALT 111 H Alkaline Phosphatase 111 Troponin I NT-Pro-B Natriuret Pep Total Protein 7.7 Albumin 3.8 Globulin 3.9 Albumin/Globulin Ratio 1.0 Nasal Screen MRSA (PCR) [facility] Medical History Anemia Cerebral palsy Chronic adrenal insufficiency Chronic anticoagulation Chronic anticoagulation Depression Depression, major, recurrent Difficulty with speech Dysarthria Dysphagia Former smoker Gingivitis History of pulmonary embolism Hyponatremia Influenza A Iron deficiency anemia Jejunostomy tube present Pneumonia Protein calorie malnutrition Pseudobulbar palsy Recurrent aspiration pneumonia Sacral decubitus ulcer, stage III 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 Father No problems noted. Social History marital status: unmarried,single details: Lives independantly with part-time caregivers household members: caregiver lives independently: Yes occupational status: disabled alcohol intake: former substance use type: marijuana Assessment & Plan Time-Based Coding :: [TOTAL MINUTES] spent with patient and on the chart (including review of chart, obtaining history, exam, reviewing outside data, placing orders, documenting exam and treatment plan, and counseling patient) on [DATE]. PROFEE Quality Lab Technician Document charge(s): Yes
--- NOTE | 2025-07-11 08:07 | PM.HP.1 ---
History of Present Illness History of Present Illness Chief complaint: feeding tube displaced, blood in trach suction Narrative: Summary: The patient is a 45 yo with severe CP, spastic hemiplegia, adrenal insullicency, with tracheostomy, decubitus stage III on the sacrum, wheelchair bound with a hx of G tube that fell out and caused peritonitis in April of this year at [facility] who has been living with his mother but he lost his current J-tube today. S: He denies pain, does have dry skin with a lot of itching in the right upper arm. He denies shortness a breath. O: NAD, alert and oriented, fluent speech, calm. Chronically ill in appearance, cachectic. He was a tracheostomy in place. He was right shoulder is excoriated and there was redness in the armpit. There was no fluctuance. Normocephalic skull, EOMI, anicteric sclera, symmetric pupils. Oropharynx unremarkable, no droop. Neck supple, midline trachea, no adenopathy. Lungs clear, normal rate and effort. Heart regular, no murmur gallop or rub. Abdomen is soft, non distended and non tender. Extremities are free of edema. Skin is notable for redness in the right axilla and multiple excoriations over both shoulders but right greater than left consistent with previous itching. Joints are deformed. IMAGING: CTA P: No bowel obstruction. A tract is seen from the prior jejunostomy, without fluid collection in the region. Chronic left lower lung opacity with bronchiectasis. Trace adjacent effusion. Moderate colorectal fecal loading. Other findings above No significant changes from the preliminary report. Abdomen ultrasound: IMPRESSION: Limited study demonstrating a liver that is prominent in size, yet with normal echogenicity. No focal liver lesions are seen. Chest x-ray: Potential interval worsening of a process in the left hemithorax. There is chronic volume loss and opacity. There is a suggestion of possible development of basilar atelectasis and pleural fluid. A/P: 1. Cerebral Palsy with malnutrition- General srgery has been consulted and evaluated the pt, we are holding the Eliquis in case surgery for the tube placement may be needed, 2. Adrenal Insufficiency- restarting home fludrocortisone and hydrocortisone, would give stress dose prior to surgery. 3. Chronic respiratory failure- CXR reviewed, will hve RT consulted, start breathing tx, maybe chest physiotherapy. 4. Stage 3 decubitus. 5. PE, stable. 6. Elevated LFT's PLAN: -continue antibiotics. add ceftriaxone -stress dose steroids with hydrocortisone 100 Q 8. -right upper quadrant imaging per surgery. -PICC for access -PEG replacement. [facility] Medical History Chronic adrenal insufficiency Chronic anticoagulation Iron deficiency anemia History of pulmonary embolism Status post radiation therapy Chronic anticoagulation Tracheostomy in place Sacral decubitus ulcer, stage III Protein calorie malnutrition Hyponatremia Dysphagia Recurrent aspiration pneumonia Depression, major, recurrent Jejunostomy tube present Influenza A Anemia Pneumonia 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 Father No problems noted. Social History marital status: unmarried,single details: Lives independantly with part-time caregivers household members: caregiver lives independently: Yes occupational status: disabled alcohol intake: former substance use type: marijuana Meds Home Medications and Allergies Home Medications ?Medication ?Instructions ?Recorded ?Confirmed ?Type Battery Powered Lift #1 ea 03/02/18 07/11/25 Rx Power Chair #1 ea 10/16/18 07/11/25 Rx Disabled Parking #1 ea 01/15/19 07/11/25 Rx Shower Chair #1 ea 07/04/19 07/11/25 Rx ferrous sulfate 325 mg (65 mg 130 mg PO DAILY 10/29/21 07/11/25 History iron) tablet XL mattress for semi-electric #1 ea 09/27/22 07/11/25 Rx hospital bed baclofen 5 mg/5 mL oral solution 5 mg (5 mL) PO DAILY #473 mL 01/20/23 07/11/25 Rx syringe with needle 3 mL 20 gauge #1 ea 08/10/23 07/11/25 History x 1 (BD Luer-Rafael Syringe) Mattress #1 ea 03/28/24 07/11/25 Rx Semi-electric hospital bed #1 ea 03/28/24 07/11/25 Rx apixaban 5 mg tablet (Eliquis) 5 mg PO BID #60 tabs 08/15/24 07/11/25 Rx blood-glucose meter (True Metrix #1 ea 12/05/24 07/11/25 History Air Glucose Meter) glucagon 1 mg solution for 1 mg IM ONCE 12/05/24 07/11/25 History injection (Glucagon Emergency Kit) folic acid 1 mg tablet 1 mg PO DAILY #90 tabs 12/13/24 07/11/25 Rx Lingraphica Communication Device #1 ea 01/23/25 07/11/25 Rx scopolamine base 1 mg over 3 days 1 patch topical Q3D #24 ea 03/15/25 07/11/25 Rx transdermal patch sodium chloride 0.9 % for 2.5 ml inhalation Q12H PRN 03/15/25 07/11/25 Rx nebulization shortness of breath or wheezing #300 mL suction catheter kit #5 ea 03/20/25 07/11/25 Rx sertraline 100 mg tablet 200 mg (2 x 100 mg) PO DAILY #60 05/01/25 07/11/25 Rx tabs banana 1 ea PO 4XD #450 ea 05/02/25 07/11/25 Rx flakes-transgalactooligosaccharide oral powder packet (Banatrol Plus oral powder packet) fludrocortisone 0.1 mg tablet 0.1 mg PO DAILY #100 tabs 06/03/25 07/11/25 Rx hydrocortisone 10 mg tablet 20 mg (2 x 10 mg) PO BID #120 tabs 06/03/25 07/11/25 Rx (Cortef) midodrine 5 mg tablet 5 mg TUBE Q4HR #100 tabs 06/03/25 07/11/25 Rx oxycodone 5 mg/5 mL oral solution 5 mg (5 mL) TUBE Q4HR PRN Pain, 06/03/25 07/11/25 Rx Moderate (4-6) #60 mL sodium hypochlorite 0.125 % 1 ml topical BID #100 mL 06/03/25 07/11/25 Rx solution (Dakin's Solution) vitamin A and D 1 applic topical 6XD PRN wound care 06/06/25 07/11/25 History zinc oxide-cod liver oil topical ea topical PRN PRN skin irritation 06/06/25 06/25/25 History ointment Disposable Cannula for Trach size #1 ea 06/25/25 07/11/25 Rx XLT, 60xltin, 6.0MMID, Schiley brand, inner cannula lansoprazole 30 mg capsule,delayed 30 mg PO BID #60 caps 06/25/25 07/11/25 Rx release levofloxacin 750 mg tablet 750 mg PO DAILY #6 tabs 06/25/25 07/11/25 Rx potassium chloride 20 mEq/15 mL 20 meq (15 mL) PO DAILY #500 mL 06/25/25 07/11/25 Rx oral liquid Allergies Allergy/AdvReac Type Severity Reaction Status Date / Time Penicillins (PENICILLINS) Allergy Severe RASH Verified 06/14/25 13:26 levofloxacin Allergy Intermediate Rash Verified 06/14/25 13:26 Exam Vital Signs (past 8 hours): - 07/11/25 03:45 Temperature 97.4 F L Pulse Rate 68 Blood Pressure 110/56 L Pulse Oximetry 97 Oxygen Delivery Method Room Air Objective Labs 07/11/25 05:03 07/11/25 05:03 Labs: Laboratory Results - last 24 hr 07/10/25 07/11/25 07/11/25 16:34 03:55 04:58 WBC 4.9 RBC 3.63 L Hgb 10.1 L Hct 30.5 L MCV 83.9 MCH 27.8 MCHC 33.1 RDW 19.6 H Plt Count 283 Neut % (Auto) 74.9 Lymph % (Auto) 14.3 L Morton % (Auto) 7.8 Eos % (Auto) 1.6 L Baso % (Auto) 1.4 Neut # (Auto) 3600 Lymph # (Auto) 700 L Morton # (Auto) 400 Eos # (Auto) 100 Baso # (Auto) 100 PT 15.2 H INR 1.3 Sodium 133 L Potassium 4.3 Chloride 99 Carbon Dioxide 29 BUN 19 Creatinine 0.32 L Estimated GFR > 60 BUN/Creatinine Ratio 59.4 H Glucose 80 POC Whole Bld Glucose 68 L Lactate 1.1 Calcium 9.0 Phosphorus Total Bilirubin 0.2 AST 88 H ALT 129 H Alkaline Phosphatase 117 Troponin I < 0.012 NT-Pro-B Natriuret Pep 533 H Total Protein 7.9 Albumin 4.0 Globulin 3.9 Albumin/Globulin Ratio 1.0 Nasal Screen MRSA (PCR) Detected H 07/11/25 05:03 WBC 3.7 L RBC 3.71 L Hgb 10.3 L Hct 31.1 L MCV 84.0 MCH 27.7 MCHC 32.9 RDW 19.2 H Plt Count 264 Neut % (Auto) Lymph % (Auto) [place] % (Auto) Eos % (Auto) Baso % (Auto) Neut # (Auto) Lymph # (Auto) [place] # (Auto) Eos # (Auto) Baso # (Auto) PT INR Sodium 136 L Potassium 4.1 Chloride 99 Carbon Dioxide 27 BUN 17 Creatinine 0.34 L Estimated GFR > 60 BUN/Creatinine Ratio 50.0 H Glucose 67 L POC Whole Bld Glucose Lactate Calcium 8.9 Phosphorus 3.7 Total Bilirubin 0.4 AST 72 H ALT 111 H Alkaline Phosphatase 111 Troponin I NT-Pro-B Natriuret Pep Total Protein 7.7 Albumin 3.8 Globulin 3.9 Albumin/Globulin Ratio 1.0 Nasal Screen MRSA (PCR) Assessment & Plan Time-Based Coding :: [TOTAL MINUTES] spent with patient and on the chart (including review of chart, obtaining history, exam, reviewing outside data, placing orders, documenting exam and treatment plan, and counseling patient) on [DATE].
[2025-07-11] MEDS: DEXTROSE 5%-0.9% NS 1,000 ML 150 ML IV ×2 (09:15→16:59)
[2025-07-11] MEDS: VANCOMYCIN 1,250 MG/250 ML PIGGYBACK 250 MG IV ×2 (09:15→17:01)
[2025-07-11 10:08] LABS: Magnesium 2.0 mg/dL (1.6-2.3); Triglycerides 74 mg/dL (35-150)
--- NOTE | 2025-07-11 11:58 | DIET.CONS ---
Dietary Consultation Note Admission Date: 07/11/2025 02:44 Assessment: 45 y M admitted for dislodged J-tube. Dietitian consulted for dislodged j-tube and orders for TPN. Pt discussed in rounds and with RN. EMR reviewed. Called pt's mother Marianela who reports up until yesterday when tube was dislodged, pt had been getting the 80 mL/hr of Jevity 1.5 for 18 hours providing 1440 ml and 2160 cals and 92 g protein. Also reports diarrhea has been much improved with BMs being soft and formed since switch to continuous over bolus feeds. Dextrose 5%-NS started this morning 0830 and running at 150 mL/hr providing 75 g dextrose until it will be stopped at 1800 when TPN begins. Pt remains severely malnourished. NFPE with severe muscles wasting in temples, deltoids, pectoralis major, trapezius. Ht: 182.88 cm Wt: 70.307 kg BMI: 20.9 UBW: 75 kg 05/28/25 (-6% weight loss in 6 weeks, notable but not severe) per [facility] reports pt was 64 kg 06/15/25 Last BM: () MNA: 5 Krishan Score: 9 Diet: 07/11/25 03:00 NPO Diet Diet Modifications: NPO Type: Strict Labs: RBC 3.71 X10^6/uL (4.5-5.9) L 07/11/25 05:03 Hgb 10.3 g/dL (13.5-17.5) L 07/11/25 05:03 Hct 31.1 % (41-53) L 07/11/25 05:03 Creatinine 0.34 mg/dL (0.66-1.25) L 07/11/25 05:03 Lactate 1.1 mmol/L (0.7-2.1) 07/10/25 16:34 NT-Pro-B Natriuret Pep 533 pg/mL (<125) H 07/10/25 16:34 Nutrition Diagnosis: Inadequate oral intakes r/t unable to take nutrition orally or via J-tube aeb dislodged J-tube Increased nutrient needs (protein) r/t healing needs aeb stage 3 pressure ulcer Interventions: 1. Continuous TPN via PICC as follows: Day 1: 1 L Clinimix 5/20 at 42 mL/hr. If no signs of refeeding, advance to day 2 Day 2: 1.5 L Clinimix 5/20 at 63 mL/hr. If no signs of refeeding, advance to day 3. Day 3: Goal rate: 2 L Clinimix 5/20 at 84 mL/hr. IVFE lipids 3x/wk. Goal rate plus lipids provides 1974 kcals (94% EER) and 100 g protein (95% EER) 2. Monitor lytes phos, K+, Mg, glucose for refeeding syndrome. Pt at risk d/t malnutrition. Hold initiation or increase in TPN rate until lytes are supplemented and/or normalized. Check TG initially and then weekly. 3. Thiamine 100 mg in TPN for 5-7 days d/t pt at risk for refeeding syndrome. 4. Stop dextrose via IV fluids when TPN starts at 1800 tonight. Discussed with pharmacy, can meet fluid needs with NS instead. This will prevent overfeeding of dextrose in first 24 hours d/t risk of refeeding syndrome. Per [address] guidelines: Total dextrose pt will be receiving within first 24 hours is 150 g (70 g dextrose via IV dextrose started at 0830 today and stopped 1800 + dextrose via TPN overnight). Total energy intake in first 24 hours is 740 kcals (10 kcals/kg) including TPN overnight and dextrose via IV. EER: 2100 kcals (30kcals/kg per BMI/ICU status) 105-120 g protein (1.5-1.7 g/kg per wounds/PCM/ICU) Monitoring/Evaluations: labs, tolerance, return of ability to feed via J-tube per surgery Electronically Signed by: Flakita Hopkins 07/11/25 11:58 Clinical Dietitian [address] [address]
[2025-07-11] MEDS: HYDROCORTISONE 100 MG/2 ML VIAL IV ×2 (13:25→20:28)
--- NOTE | 2025-07-11 13:50 | CM.DANOTE ---
Addendum entered by Petra Ly RN 07/11/25 14:53: SHAUN PERAZA, Thea, updated regarding APS report. Per Thea, she completed an APS report last month after a unannounced home visit. Thea's ph# [phone] Addendum entered by Petra Ly RN 07/11/25 14:41: APS report filed with [facility]. Original Note: Initial DCP Assessment Note. Review EMR and phone interview with patient's mother, Marianela. Complex Health History: Trach, Peg, Wounds, Chronic [facility]. [facility] twice. [facility] for TF. [facility] for Trach care. [facility] for In Home Wound Care once a week. Family Services 2 rotating Caregivers for nights, Caregiver, Aiddy, for days. Patient's mother is no longer a paid caregiver. Payor:??[facility] [place], Medicaid. PCP: Summary & Plan:?45 y/o male from home Arrived to ED via EMS c/o dislodge j-tube. Admitted INPT. Dx. Malnutrition. Plan: Replace J-tube. Patient is on Eliquis, will have to wait a few days for INR to normalize prior to surgery. TPN to start later today. Hospitalist and nursing staff have expressed concerns regarding patient wound and overall skin condition. Skin condition is much worse than last INPT stay 05/29/2025. Size of buttock ulcer is larger and groin rash extends up to his waist and down to tops of his feet. APS report will be completed. Discharge Planning/Care Management CM Discharge Assessment Start: 07/11/25 03:43 Freq: Status: Active Protocol: Document 07/11/25 13:45 (Rec: 07/11/25 13:49 [id number]) Discharge Planning Assessment Assigned Discharge Petra Ly RN CM [facility] Provider Dr. Marshall Insurance Medicaid,Medicare Advance Directives? Yes: DPOA Advance Directives No on File History Provided By Parents,Medical Record Prior Living Apartment/Condo Arrangements Household Members caregiver Type of Relies on Others transporation used prior to admit Independent with ADL No 's Is patient alert and Yes oriented? Needs Assistance Bathing,Eating,Grooming,Meal Prep,Toileting,Managing With Medications,Home Chores / Shopping Caregiver for No Another Community Services Respiratory Therapy,Home Health Aid,Home Health Nurse, used prior to Transportation admission: Comment 369 hr/month [facility] [employer] Already Rented / Hospital Bed,Wheelchair,Nebulizer,Other Owned Comment Carlos Alberto Lift. Power WC. Vibrating Vest for pulmonary Toileting. Patient/Family Home with Home Health Preference Comment [facility] Barriers to Yes Discharge Comment Failed recent discharge home Discharge Plan [facility] Transportation Pending d/c plan of home vs LTAC Arrangement Referrals Initiated Home Health,[facility] If patient plan is No home with home health: Has signed face to face form been completed? Review Status In Process Please Provide Date 07/11/25 Initial DC Assessment Was Performed Next Review Type Continued Stay Review
[2025-07-11] MEDS: MEROPENEM 1 GM in SODIUM CHLORIDE 0.9% 100 ML IV ×2 (14:20→21:02)
[2025-07-11] MEDS: SODIUM CHLORIDE 0.9% FLUSH 10 ML IV (20:31)
[2025-07-12] VITALS (16 sets, daily range): BP systolic 99–130; BP diastolic 62–89; PULSE 65–668; RESP 15–20; TEMP 35.9–36.9; O2SAT 96–100
--- NOTE | 2025-07-12 | DI.RAD.S_ITS ---
PROCEDURE: XR ABDOMEN 1V INDICATIONS: JTUBE PLACEMENT TECHNIQUE: One view of the abdomen acquired. COMPARISON: [facility], CR, XR ABDOMEN 1V, 06/14/2025, 14:01. [facility], CR, XR ABDOMEN 1V, 05/09/2025, 0:32. FINDINGS AND IMPRESSION: Contrast injection was performed through the enteric tube, which projects over the lower midline abdomen. Contrast outlines small-bowel loops, confirming intraluminal position Dictated by: Dequan Shin M.D. on 07/12/2025 at 16:32 Approved by: Dequan Shin M.D. on 07/12/2025 at 16:33
[2025-07-12] MEDS: HYDROCORTISONE 100 MG/2 ML VIAL IV ×3 (03:25→22:25)
[2025-07-12] MEDS: VANCOMYCIN 1,250 MG/250 ML PIGGYBACK 250 MG IV ×3 (03:25→20:06)
[2025-07-12] MEDS: MEROPENEM 1 GM in SODIUM CHLORIDE 0.9% 100 ML IV ×2 (06:29→17:50)
[2025-07-12 08:58] LABS: Alanine Aminotransferase 72 IU/L (<50); Albumin 3.2 g/dL (3.5-5.0); Albumin Globulin Ratio 0.9 (1.0-2.8); Alkaline Phosphatase 76 U/L (38-126); Blood Urea Nitrogen 15 mg/dL (9-20); Calcium 8.4 mg/dL (8.4-10.2); Carbon Dioxide 24 mmol/L (22-32); Chloride 106 mmol/L (98-107); Estimated Glomerular Filt Rate > 60 mL/min (>60); Globulin 3.5 g/dL (1.7-4.1); Glucose 99 mg/dL (70-99); Potassium 4.1 mmol/L (3.4-5.1); Sodium 138 mmol/L (137-145); Total Protein 6.7 g/dL (6.3-8.2)
[2025-07-12 09:01] LABS: HEMOLYSIS 88 (0-50)
[2025-07-12 09:03] LABS: Hematocrit 29.0 % (41-53); Hemoglobin 9.5 g/dL (13.5-17.5); Mean Corpuscular HGB Conc 32.7 % (30-36); Mean Corpuscular Hemoglobin 27.2 PG (26-34); Mean Corpuscular Volume 83.4 fL (80-100); Platelet Count 303 X10^3/uL (150-400)
[2025-07-12 09:06] LABS: Add Manual Diff / Slide Review YES
--- NOTE | 2025-07-12 09:15 | PM.PN.1 ---
Subjective Subjective Interval history: Summary: Summary: The patient is a 45 yo with severe CP, spastic hemiplegia, adrenal insullicency, with tracheostomy, decubitus stage III on the sacrum, wheelchair bound with a hx of G tube that fell out and caused peritonitis in April of this year at [facility] who has been living with his mother but he lost his current J-tube today. S: He was doing well, denies pain. O: NAD, alert and oriented, fluent speech, calm. Chronically ill in appearance, cachectic. He was a tracheostomy in place. He was right shoulder is excoriated and there was redness in the armpit. There was no fluctuance. Normocephalic skull, EOMI, anicteric sclera, symmetric pupils. Oropharynx unremarkable, no droop. Neck supple, midline trachea, no adenopathy. Lungs clear, normal rate and effort. Heart regular, no murmur gallop or rub. Abdomen is soft, non distended and non tender. Extremities are free of edema. Skin is notable for redness in the right axilla and multiple excoriations over both shoulders but right greater than left consistent with previous itching. Joints are deformed. IMAGING: CTA P: No bowel obstruction. A tract is seen from the prior jejunostomy, without fluid collection in the region. Chronic left lower lung opacity with bronchiectasis. Trace adjacent effusion. Moderate colorectal fecal loading. Other findings above No significant changes from the preliminary report. Abdomen ultrasound: IMPRESSION: Limited study demonstrating a liver that is prominent in size, yet with normal echogenicity. No focal liver lesions are seen. Chest x-ray: Potential interval worsening of a process in the left hemithorax. There is chronic volume loss and opacity. There is a suggestion of possible development of basilar atelectasis and pleural fluid. A/P: 1. Cerebral Palsy with malnutrition- General srgery has been consulted and evaluated the pt, we are holding the Eliquis in case surgery for the tube placement may be needed, 2. Adrenal Insufficiency- restarting home fludrocortisone and hydrocortisone, would give stress dose prior to surgery. 3. Chronic respiratory failure- CXR reviewed, will hve RT consulted, start breathing tx, maybe chest physiotherapy. 4. Stage 3 decubitus. 5. PE, stable. 6. Elevated LFT's 7. Severe protein caloric malnutrition with BMI of 21 and evidence of diffuse muscle wasting. 8. Chronic left lung pneumonia, active. 9. Chronic sacral decubitus, at least stage III. PLAN: -continue antibiotics. added ceftriaxone -stress dose steroids with hydrocortisone 100 Q 8. -Unable to place PICC. Unable to give TPN for that reason. -continue to hold Eliquis, hold Lovenox this morning. -PEG replacement. Likely today. Exam Vital Signs (past 8 hours): - 07/12/25 03:51 07/12/25 06:04 07/12/25 07:00 Temperature 97.8 F Pulse Rate 67 Respiratory Rate Blood Pressure 112/71 Pulse Oximetry 98 96 Oxygen Delivery Method Trach Collar Room Air Oxygen Flow Rate Fraction of Inspired Oxygen 28 07/12/25 07:00 07/12/25 08:00 07/12/25 08:58 Temperature 96.6 F L Pulse Rate 71 Respiratory Rate 20 Blood Pressure 99/62 Pulse Oximetry 100 Oxygen Delivery Method Trach Collar Trach Collar Oxygen Flow Rate 6 Fraction of Inspired Oxygen 28 Fraction of Inspired Oxygen 28 SaO2/FiO2 Ratio 357 Oxygen Delivery Method Trach Collar Oxygen Flow Rate 6 Objective Labs 07/12/25 08:30 07/12/25 08:30 Labs: Laboratory Results - last 24 hr 07/11/25 07/11/25 07/12/25 05:03 17:40 05:20 WBC RBC Hgb Hct MCV MCH MCHC RDW Plt Count Neut % (Auto) Lymph % (Auto) [place] % (Auto) Eos % (Auto) Baso % (Auto) Lymph # (Auto) [place] # (Auto) Baso # (Auto) Sodium Potassium Chloride Carbon Dioxide BUN Creatinine Estimated GFR BUN/Creatinine Ratio Glucose POC Whole Bld Glucose 75 100 H Calcium Magnesium 2.0 Total Bilirubin AST ALT Alkaline Phosphatase Total Protein Albumin Globulin Albumin/Globulin Ratio Triglycerides 74 Vancomycin Trough 07/12/25 08:30 WBC 4.6 RBC 3.48 L Hgb 9.5 L Hct 29.0 L MCV 83.4 MCH 27.2 MCHC 32.7 RDW 19.1 H Plt Count 303 Neut % (Auto) Not Reportable Lymph % (Auto) Not Reportable [place] % (Auto) Not Reportable Eos % (Auto) Not Reportable Baso % (Auto) Not Reportable Lymph # (Auto) Not Reportable [place] # (Auto) Not Reportable Baso # (Auto) Not Reportable Sodium 138 Potassium 4.1 Chloride 106 Carbon Dioxide 24 BUN 15 Creatinine 0.30 L Estimated GFR > 60 BUN/Creatinine Ratio 50.0 H Glucose 99 POC Whole Bld Glucose Calcium 8.4 Magnesium Total Bilirubin 0.4 AST 45 ALT 72 H Alkaline Phosphatase 76 Total Protein 6.7 Albumin 3.2 L Globulin 3.5 Albumin/Globulin Ratio 0.9 L Triglycerides Vancomycin Trough 26.3 H* [facility] Medical History Chronic adrenal insufficiency Chronic anticoagulation Iron deficiency anemia History of pulmonary embolism Status post radiation therapy Chronic anticoagulation Tracheostomy in place Sacral decubitus ulcer, stage III Protein calorie malnutrition Hyponatremia Dysphagia Recurrent aspiration pneumonia Depression, major, recurrent Jejunostomy tube present Influenza A Anemia Pneumonia 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 Father No problems noted. Social History marital status: unmarried,single details: Lives independantly with part-time caregivers household members: caregiver lives independently: Yes occupational status: disabled alcohol intake: former substance use type: marijuana Assessment & Plan Time-Based Coding :: [TOTAL MINUTES] spent with patient and on the chart (including review of chart, obtaining history, exam, reviewing outside data, placing orders, documenting exam and treatment plan, and counseling patient) on [DATE].
[2025-07-12 09:21] LABS: Band Neutrophils Percent 4.0 % (3-7); Lymphocytes Percent Manual 14.0 % (25-45); Neutrophils Absolute Manual 3956 /uL (3000-5900); Segmented Neutrophils Percent 82.0 % (38-70); Total Cells Counted 100
[2025-07-12 09:29] LABS: Microcytosis 1+
--- NOTE | 2025-07-12 10:10 | DIET.PN1 ---
Dietary Progress Note Assessment: f/u Per RN- Unable to get PICC line, no TPN started. D5w running 100 ml/hr currently. Per rounds, pt may have surgery to replace J-tube today. Plan below for if J-tube able to be placed vs if J-tube not able to be replaced. Ht: 182.88 cm Wt: 70.307 kg BMI: 20.9 UBW: 160 lb Last BM: () MNA: 5 Krishan Score: 9 Diet: 07/11/25 03:00 NPO Diet Diet Modifications: NPO Type: Strict Labs: RBC 3.48 X10^6/uL (4.5-5.9) L 07/12/25 08:30 Hgb 9.5 g/dL (13.5-17.5) L 07/12/25 08:30 Hct 29.0 % (41-53) L 07/12/25 08:30 Creatinine 0.30 mg/dL (0.66-1.25) L 07/12/25 08:30 Lactate 1.1 mmol/L (0.7-2.1) 07/10/25 16:34 NT-Pro-B Natriuret Pep 533 pg/mL (<125) H 07/10/25 16:34 Nutrition Diagnosis: -Inadequate oral intakes r/t unable to take nutrition orally or via J-tube aeb dislodged J-tube -Increased nutrient needs (protein) r/t healing needs aeb stage 3 pressure ulcer -Severe chronic Protein Calorie Malnutrition r/t history of inadequate oral intakes with altered GI motility and increased needs (protein) as evidenced by severe muscle wasting in temples and deltoid, severe buccal and orbital subcutaneous fat loss, history of <60% of estimated protein needs due to malabsorption, wound healing needs, and multiple recent hospitalizations in past months Interventions: 1. If J-tube able to be replaced: *When feeds are able to be restarted per surgery plan is as follows: Continuous Jevity 1.2 via j-tube starting at 20 ml/hr and advancing 20 ml/hr Q8H until goal rate of 70 ml/hr. 1 Pro[employer] Protein packet daily, administer using packet instructions. Flush 80 mL free water Q4H. Free water flushes plus formula plus current IV medication flushes meets fluid needs At goal rate + 1 protein packet provides 2060 kcals (98% EER) and 104 g protein (99% EER) and formula plus flushes provides 1880 mL fluids (additional fluids provided with IV meds) When pt discharged- pt can d/c back on home formula and home regimen managed by [facility] dietitians 2. If tube unable to replaced and TPN access is established: *Continuous TPN as follows: Day 1: 1 L Clinimix 5/20 at 42 mL/hr. If no signs of refeeding, advance to day 2 Day 2: 1.5 L Clinimix 5/20 at 63 mL/hr. If no signs of refeeding, advance to day 3. Day 3: Goal rate: 2 L Clinimix 5/20 at 84 mL/hr. IVFE lipids 3x/wk. Goal rate plus lipids provides 1974 kcals (94% EER) and 100 g protein (95% EER) Monitor lytes phos, K+, Mg, glucose for first 3 days. Hold initiation or increase in TPN rate until lytes are supplemented and/or normalized. Thiamine 100 mg in TPN for 5-7 days d/t pt at risk for refeeding syndrome. EER: 2100 kcals (30kcals/kg per BMI/ICU status) 105-120 g protein (1.5-1.7 g/kg per wounds/PCM/ICU) 3621-0291 ml fluids (35 ml/kg per age vs Helder segar) Monitoring/Evaluations: surgery plan, method of nutrition, tolerance, labs Electronically Signed by: Flakita Hopkins 07/12/25 10:10 Clinical Dietitian [address] [address]
--- NOTE | 2025-07-12 10:29 | CM.DPC ---
Barriers: Family conference TBD and possible change in guardianship status. CM also left VM and sent an email to Noah Nation with [facility]. CM requested information pertaining to APS reports filed for this patient by the Fire Department.
[2025-07-12] MEDS: DEXTROSE 5%-0.9% NS 1,000 ML 100 ML IV ×2 (11:14→22:36)
--- NOTE | 2025-07-12 13:23 | P.DS_ITS ---
History of Present Illness History of Present Illness Chief complaint: feeding tube displaced, blood in trach suction Narrative: Summary: The patient is a 45 yo with severe CP, spastic hemiplegia, adrenal insullicency, with tracheostomy, decubitus stage III on the sacrum, wheelchair bound with a hx of G tube that fell out and caused peritonitis in April of this year at [facility] who has been living with his mother but he lost his current J-tube today. S: He denies pain, does have dry skin with a lot of itching in the right upper arm. He denies shortness a breath. O: NAD, alert and oriented, fluent speech, calm. Chronically ill in appearance, cachectic. He was a tracheostomy in place. He was right shoulder is excoriated and there was redness in the armpit. There was no fluctuance. Normocephalic skull, EOMI, anicteric sclera, symmetric pupils. Oropharynx unremarkable, no droop. Neck supple, midline trachea, no adenopathy. Lungs clear, normal rate and effort. Heart regular, no murmur gallop or rub. Abdomen is soft, non distended and non tender. Extremities are free of edema. Skin is notable for redness in the right axilla and multiple excoriations over both shoulders but right greater than left consistent with previous itching. Joints are deformed. IMAGING: CTA P: No bowel obstruction. A tract is seen from the prior jejunostomy, without fluid collection in the region. Chronic left lower lung opacity with bronchiectasis. Trace adjacent effusion. Moderate colorectal fecal loading. Other findings above No significant changes from the preliminary report. Abdomen ultrasound: IMPRESSION: Limited study demonstrating a liver that is prominent in size, yet with normal echogenicity. No focal liver lesions are seen. Chest x-ray: Potential interval worsening of a process in the left hemithorax. There is chronic volume loss and opacity. There is a suggestion of possible development of basilar atelectasis and pleural fluid. A/P: 1. Cerebral Palsy with malnutrition- General srgery has been consulted and evaluated the pt, we are holding the Eliquis in case surgery for the tube placement may be needed, 2. Adrenal Insufficiency- restarting home fludrocortisone and hydrocortisone, would give stress dose prior to surgery. 3. Chronic respiratory failure- CXR reviewed, will hve RT consulted, start breathing tx, maybe chest physiotherapy. 4. Stage 3 decubitus. 5. PE, stable. 6. Elevated LFT's PLAN: -continue antibiotics. add ceftriaxone -stress dose steroids with hydrocortisone 100 Q 8. -right upper quadrant imaging per surgery. -PICC for access -PEG replacement. Discharge Providers Provider Date of admission: 07/11/25 02:44 Primary care physician: Chucky Marshall MD Consults: 07/11/25 03:01 Consult to Physician Routine Comment: Consulting Provider: Alen Naqvi Reason for consultation: lost J tube Has provider been notified: Yes 07/11/25 08:39 Consult to Dietitian, Adult Routine Comment: Reason For Exam: J tube dislodged 07/12/25 10:06 Consult to Dietitian, Adult Routine Comment: Reason For Exam: tube fed adult Consult to Wound Care Routine Comment: Consulting Provider: [facility] Discharge provider: Joshua Saunders MD Exam Vital Signs (past 8 hours): - 07/12/25 06:04 07/12/25 07:00 07/12/25 07:00 Temperature Pulse Rate Respiratory Rate Blood Pressure Pulse Oximetry 98 96 Oxygen Delivery Method Trach Collar Room Air Trach Collar Oxygen Flow Rate Fraction of Inspired Oxygen 28 07/12/25 08:00 07/12/25 08:58 Temperature 96.6 F L Pulse Rate 71 Respiratory Rate 20 Blood Pressure 99/62 Pulse Oximetry 100 Oxygen Delivery Method Trach Collar Oxygen Flow Rate 6 Fraction of Inspired Oxygen 28 Fraction of Inspired Oxygen 28 SaO2/FiO2 Ratio 357 Oxygen Delivery Method Trach Collar Oxygen Flow Rate 6 Objective Labs 07/12/25 08:30 07/12/25 08:30 Labs: Laboratory Results - last 24 hr 07/11/25 07/12/25 07/12/25 17:40 05:20 08:30 WBC 4.6 RBC 3.48 L Hgb 9.5 L Hct 29.0 L MCV 83.4 MCH 27.2 MCHC 32.7 RDW 19.1 H Plt Count 303 Neut % (Auto) Not Reportable Lymph % (Auto) Not Reportable [place] % (Auto) Not Reportable Eos % (Auto) Not Reportable Baso % (Auto) Not Reportable Lymph # (Auto) Not Reportable [place] # (Auto) Not Reportable Baso # (Auto) Not Reportable Total Counted 100 Seg Neutrophils % 82.0 H Band Neutrophils % 4.0 Lymphocytes % (Manual) 14.0 L Neutrophils # (Manual) 3956 Platelet Estimate RBC Morphology See below Microcytosis 1+ H Sodium 138 Potassium 4.1 Chloride 106 Carbon Dioxide 24 BUN 15 Creatinine 0.30 L Estimated GFR > 60 BUN/Creatinine Ratio 50.0 H Glucose 99 POC Whole Bld Glucose 75 100 H Calcium 8.4 Total Bilirubin 0.4 AST 45 ALT 72 H Alkaline Phosphatase 76 Total Protein 6.7 Albumin 3.2 L Globulin 3.5 Albumin/Globulin Ratio 0.9 L Vancomycin Trough 26.3 H* 07/12/25 11:18 WBC RBC Hgb Hct MCV MCH MCHC RDW Plt Count Neut % (Auto) Lymph % (Auto) [place] % (Auto) Eos % (Auto) Baso % (Auto) Lymph # (Auto) [place] # (Auto) Baso # (Auto) Total Counted Seg Neutrophils % Band Neutrophils % Lymphocytes % (Manual) Neutrophils # (Manual) Platelet Estimate RBC Morphology Microcytosis Sodium Potassium Chloride Carbon Dioxide BUN Creatinine Estimated GFR BUN/Creatinine Ratio Glucose POC Whole Bld Glucose 99 Calcium Total Bilirubin AST ALT Alkaline Phosphatase Total Protein Albumin Globulin Albumin/Globulin Ratio Vancomycin Trough PFSH Medical History Chronic adrenal insufficiency Chronic anticoagulation Iron deficiency anemia History of pulmonary embolism Status post radiation therapy Chronic anticoagulation Tracheostomy in place Sacral decubitus ulcer, stage III Protein calorie malnutrition Hyponatremia Dysphagia Recurrent aspiration pneumonia Depression, major, recurrent Jejunostomy tube present Influenza A Anemia Pneumonia 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 Father No problems noted. Social History marital status: unmarried,single details: Lives independantly with part-time caregivers household members: caregiver lives independently: Yes occupational status: disabled alcohol intake: former substance use type: marijuana Discharge Plan Discharge orders & Medications Prescriptions: No Action (DME) XL mattress for semi-electric hospital bed See Rx Instructions .Route .MEDSUPPLY Qty: 1 0RF Rx Instructions: use daily as directed (DME) Disabled Parking Qty: 1 0RF Rx Instructions: I find this patient to be medically disabled and qualified for Disabled Parking as indicated, and signed, on the Accompanying Disabled Parking Application for Individuals ferrous sulfate 325 mg (65 mg iron) tablet 130 mg PO DAILY baclofen 5 mg/5 mL solution 5 mg PO DAILY Qty: 473 3RF Rx Instructions: Give 5mL via J-tube (DME) Battery Powered Lift Qty: 1 0RF Dose Instruction: As directed Rx Instructions: Use daily as directed for transfers to and from bed (DME) Power Chair tall Qty: 1 0RF Dose Instruction: As directed Rx Instructions: As directed for patient care with activities of daily living. Chair needs to tilt foreword and tilt backwards for patient care. Pt is 6 feet tall and will need to fit height. (DME) Shower Chair Qty: 1 0RF Rx Instructions: As directed for patient care with activities of daily living. Chair needs to tilt foreword and tilt backwards for patient care. Pt is 6 feet tall and will need to fit height. (DME) Semi-electric hospital bed Qty: 1 0RF Dose Instruction: As directed Rx Instructions: Semi-electric hospital bed to permit transfers to wheelchair and to attach traction equipment. Must be large enough and long enough to accommodate his height and weight. EDEN: 99 months (DME) Mattress See Rx Instructions .Route .MEDSUPPLY Qty: 1 0RF Rx Instructions: Long mattress for hospital bed Eliquis 5 mg tablet 5 mg PO BID Qty: 60 12RF folic acid 1 mg tablet 1 mg PO DAILY Qty: 90 3RF (DME) Lingraphica Communication Device See Rx Instructions .Route .MEDSUPPLY Qty: 1 0RF Rx Instructions: Evaluation for speech generating device. See online submission form for free trial of device. scopolamine base 1 mg over 3 days patch 3 day 1 patch topical Q3D Qty: 24 1RF sodium chloride 0.9 % solution for nebulization 2.5 ml inhalation Q12H PRN (Reason: shortness of breath or wheezing) Qty: 300 0RF (DME) suction catheter kit See Rx Instructions .Route .MEDSUPPLY Qty: 5 4RF Rx Instructions: Mya suction catheter (or equivalent) equipement and disposable. [employer] DME supply sertraline 100 mg tablet 200 mg PO DAILY Qty: 60 2RF Banatrol Plus Powder In Packet 1 ea PO 4XD Qty: 450 3RF lansoprazole 30 mg capsule,delayed release(DR/EC) 30 mg PO BID Qty: 60 1RF levofloxacin 750 mg tablet 750 mg PO DAILY Qty: 6 0RF Rx Instructions: take one tab daily for 6 days potassium chloride 20 mEq/15 mL liquid 20 meq PO DAILY Qty: 500 1RF (DME) Disposable Cannula for Trach size XLT, 60xltin, 6.0MMID, Schlolis brand, inner cannula See Rx Instructions .Route .MEDSUPPLY Qty: 1 3RF Rx Instructions: As directed (DME) BD Luer-Rafael Syringe 3 mL 20 gauge x 1 syringe See Rx Instructions .ROUTE .MEDSUPPLY Qty: 1 Patient Comments: USE FOR MUCOMYST Rx Instructions: As directed Glucagon Emergency Kit (human) 1 mg recon soln 1 mg IM ONCE (DME) blood-glucose meter [True Metrix Air Glucose Meter] Misc See Rx Instructions .ROUTE DAILY Qty: 1 Rx Instructions: As directed zinc oxide-cod liver oil Ointment topical PRN PRN (Reason: skin irritation) Patient Comments: Desitin Topical Ointment. vitamin A and D Ointment 1 applic topical 6XD PRN (Reason: wound care) midodrine 5 mg Tablet 5 mg TUBE Q4HR Qty: 100 0RF oxycodone 5 mg/5 mL Solution 5 mg TUBE Q4HR PRN (Reason: Pain, Moderate (4-6)) Qty: 60 0RF hydrocortisone [Cortef] 10 mg Tablet 20 mg PO BID Qty: 120 0RF fludrocortisone 0.1 mg Tablet 0.1 mg PO DAILY Qty: 100 0RF Dakin's Solution 0.125 % Solution 1 ml topical BID Qty: 100 0RF Follow up/Referrals: Chucky Marshall MD [Primary Care Provider, Internal Medicine] Discharge Data Primary Care Provider: Chucky Marshall V
--- NOTE | 2025-07-12 13:33 | PM.CN.IH.1 ---
History of Present Illness Consult details Date Patient Seen: 07/12/25 Time Patient Seen: 01:10 Chief complaint: feeding tube displaced, blood in trach solution Reason for consult: wound consult Requesting provider: Joshua Saunders Narrative: The patient is a 45 yo with chart history of cerebral palsy, developmental delay, jejunostomy feeding tube, tracheostomy tube, dysarthria, spasticity, recurrent pneumonia, spastic hemiparesis left nondominant side and decubitus stage III ulcer to superior to left buttock. He is currently in treatment for displaced J-tube, chronic pneumonia, and malnutrition. The patient lives independently with traveling caretakers and reports that he has home wound care a few times weekly. Home wound care dressing plan is unknown. During prior hospital admissions he was receiving dressing changes with daily wet to wet Dakins soaks. He endorses that he has been having increasing pain to the ulcer prior to admission but denies any significant drainage. During hospitalization the patient has been having frequent drainage from the wound. The patient has a history with MRSA. He is currently being treated with IV antibiotics. He denies pain at this time and allows for examination of the wound. At this time the wound appears mildly infected with significant undermining. Skin surface across buttocks is dry/scaly/ erythematous and at high risk for the development of additional wounds. Meds Home Medications and Allergies Home Medications ?Medication ?Instructions ?Recorded ?Confirmed ?Type Battery Powered Lift #1 ea 03/02/18 07/11/25 Rx Power Chair #1 ea 10/16/18 07/11/25 Rx Disabled Parking #1 ea 01/15/19 07/11/25 Rx Shower Chair #1 ea 07/04/19 07/11/25 Rx ferrous sulfate 325 mg (65 mg 130 mg PO DAILY 10/29/21 07/11/25 History iron) tablet XL mattress for semi-electric #1 ea 09/27/22 07/11/25 Rx hospital bed baclofen 5 mg/5 mL oral solution 5 mg (5 mL) PO DAILY #473 mL 01/20/23 07/11/25 Rx syringe with needle 3 mL 20 gauge #1 ea 08/10/23 07/11/25 History x 1 (BD Luer-Rafael Syringe) Mattress #1 ea 03/28/24 07/11/25 Rx Semi-electric hospital bed #1 ea 03/28/24 07/11/25 Rx apixaban 5 mg tablet (Eliquis) 5 mg PO BID #60 tabs 08/15/24 07/11/25 Rx blood-glucose meter (True Metrix #1 ea 12/05/24 07/11/25 History Air Glucose Meter) glucagon 1 mg solution for 1 mg IM ONCE 12/05/24 07/11/25 History injection (Glucagon Emergency Kit) folic acid 1 mg tablet 1 mg PO DAILY #90 tabs 12/13/24 07/11/25 Rx Lingraphica Communication Device #1 ea 01/23/25 07/11/25 Rx scopolamine base 1 mg over 3 days 1 patch topical Q3D #24 ea 03/15/25 07/11/25 Rx transdermal patch sodium chloride 0.9 % for 2.5 ml inhalation Q12H PRN 03/15/25 07/11/25 Rx nebulization shortness of breath or wheezing #300 mL suction catheter kit #5 ea 03/20/25 07/11/25 Rx sertraline 100 mg tablet 200 mg (2 x 100 mg) PO DAILY #60 05/01/25 07/11/25 Rx tabs banana 1 ea PO 4XD #450 ea 05/02/25 07/11/25 Rx flakes-transgalactooligosaccharide oral powder packet (Banatrol Plus oral powder packet) fludrocortisone 0.1 mg tablet 0.1 mg PO DAILY #100 tabs 06/03/25 07/11/25 Rx hydrocortisone 10 mg tablet 20 mg (2 x 10 mg) PO BID #120 tabs 06/03/25 07/11/25 Rx (Cortef) midodrine 5 mg tablet 5 mg TUBE Q4HR #100 tabs 06/03/25 07/11/25 Rx oxycodone 5 mg/5 mL oral solution 5 mg (5 mL) TUBE Q4HR PRN Pain, 06/03/25 07/11/25 Rx Moderate (4-6) #60 mL sodium hypochlorite 0.125 % 1 ml topical BID #100 mL 06/03/25 07/11/25 Rx solution (Dakin's Solution) vitamin A and D 1 applic topical 6XD PRN wound care 06/06/25 07/11/25 History zinc oxide-cod liver oil topical ea topical PRN PRN skin irritation 06/06/25 06/25/25 History ointment Disposable Cannula for Trach size #1 ea 06/25/25 07/11/25 Rx XLT, 60xltin, 6.0MMID, Schiley brand, inner cannula lansoprazole 30 mg capsule,delayed 30 mg PO BID #60 caps 06/25/25 07/11/25 Rx release levofloxacin 750 mg tablet 750 mg PO DAILY #6 tabs 06/25/25 07/11/25 Rx potassium chloride 20 mEq/15 mL 20 meq (15 mL) PO DAILY #500 mL 06/25/25 07/11/25 Rx oral liquid Allergies Allergy/AdvReac Type Severity Reaction Status Date / Time Penicillins (PENICILLINS) Allergy Severe RASH Verified 06/14/25 13:26 levofloxacin Allergy Intermediate Rash Verified 06/14/25 13:26 Exam Vital Signs (past 8 hours): - 07/12/25 06:04 07/12/25 07:00 07/12/25 07:00 Temperature Pulse Rate Respiratory Rate Blood Pressure Pulse Oximetry 98 96 Oxygen Delivery Method Trach Collar Room Air Trach Collar Oxygen Flow Rate Fraction of Inspired Oxygen 28 07/12/25 08:00 07/12/25 08:58 Temperature 96.6 F L Pulse Rate 71 Respiratory Rate 20 Blood Pressure 99/62 Pulse Oximetry 100 Oxygen Delivery Method Trach Collar Oxygen Flow Rate 6 Fraction of Inspired Oxygen 28 Fraction of Inspired Oxygen 28 SaO2/FiO2 Ratio 357 Oxygen Delivery Method Trach Collar Oxygen Flow Rate 6 Narrative Exam Narrative: NAD, alert and oriented, fluent speech, calm. Chronically ill in appearance, cachectic. He has a tracheostomy in place. SKIN: Just superior to left buttock there is a 3.5cm x 3.5cm circular full thickness stage 3 to 4 decubitus ulcer with slough, fibrinous tissue and minimal purulence. No active drainage or bleeding. There is undermining of at least 5mm between 9:00-1:00. Periwound approximately 1cm surround is erythematous. Skin extending beneath wound and across entire buttocks/lower legs is erythematous, dry, scaly with multiple pinpoint partial thickness tears Objective Labs 07/12/25 08:30 07/12/25 08:30 Labs: Laboratory Results - last 24 hr 07/11/25 07/12/25 07/12/25 17:40 05:20 08:30 WBC 4.6 RBC 3.48 L Hgb 9.5 L Hct 29.0 L MCV 83.4 MCH 27.2 MCHC 32.7 RDW 19.1 H Plt Count 303 Neut % (Auto) Not Reportable Lymph % (Auto) Not Reportable [place] % (Auto) Not Reportable Eos % (Auto) Not Reportable Baso % (Auto) Not Reportable Lymph # (Auto) Not Reportable [place] # (Auto) Not Reportable Baso # (Auto) Not Reportable Total Counted 100 Seg Neutrophils % 82.0 H Band Neutrophils % 4.0 Lymphocytes % (Manual) 14.0 L Neutrophils # (Manual) 3956 Platelet Estimate RBC Morphology See below Microcytosis 1+ H Sodium 138 Potassium 4.1 Chloride 106 Carbon Dioxide 24 BUN 15 Creatinine 0.30 L Estimated GFR > 60 BUN/Creatinine Ratio 50.0 H Glucose 99 POC Whole Bld Glucose 75 100 H Calcium 8.4 Total Bilirubin 0.4 AST 45 ALT 72 H Alkaline Phosphatase 76 Total Protein 6.7 Albumin 3.2 L Globulin 3.5 Albumin/Globulin Ratio 0.9 L Vancomycin Trough 26.3 H* 07/12/25 11:18 WBC RBC Hgb Hct MCV MCH MCHC RDW Plt Count Neut % (Auto) Lymph % (Auto) [place] % (Auto) Eos % (Auto) Baso % (Auto) Lymph # (Auto) [place] # (Auto) Baso # (Auto) Total Counted Seg Neutrophils % Band Neutrophils % Lymphocytes % (Manual) Neutrophils # (Manual) Platelet Estimate RBC Morphology Microcytosis Sodium Potassium Chloride Carbon Dioxide BUN Creatinine Estimated GFR BUN/Creatinine Ratio Glucose POC Whole Bld Glucose 99 Calcium Total Bilirubin AST ALT Alkaline Phosphatase Total Protein Albumin Globulin Albumin/Globulin Ratio Vancomycin Trough PFS Medical History Chronic adrenal insufficiency Chronic anticoagulation Iron deficiency anemia History of pulmonary embolism Status post radiation therapy Chronic anticoagulation Tracheostomy in place Sacral decubitus ulcer, stage III Protein calorie malnutrition Hyponatremia Dysphagia Recurrent aspiration pneumonia Depression, major, recurrent Jejunostomy tube present Influenza A Anemia Pneumonia 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 Father No problems noted. Social History marital status: unmarried,single details: Lives independantly with part-time caregivers household members: caregiver lives independently: Yes occupational status: disabled Tobacco & Substance Use alcohol intake: former substance use type: marijuana Assessment & Plan Assessment and plan (1) Pressure ulcer of left buttock, stage 4: Status: Acute Plan The ulcer, in comparison to photos during prior admissions, appears to have progressed to stage 4 Culture today taken after rinsing surface and probing into the deepest portion of undermining at approximately 11:00. Continue IV antibiotics CARE INSTRUCTIONS: Recommend daily wet to wet dressing changes with Dakin's, bordered foam or mepilex for absorption Apply barrier cream to erythematous scaly skin across buttocks Continue decubitus prevention protocols Consider in-office vs surgical debridement after assessing response to above methods and nutrition/J-tube has been re-established Long-term the patient will require more aggressive wound care with more frequent off-loading, air mattress, and improved nutrition/protein supplementation. Recommend follow up at wound clinic on discharge. Time-Based Coding :: [30] spent with patient and on the chart (including review of chart, obtaining history, exam, reviewing outside data, placing orders, documenting exam and treatment plan, and counseling patient) on [07/12/25]. PROFEE Charge Codes Inpatient or Observation consultation: 26453
[2025-07-12] MEDS: LACTATED RINGERS 1,000 ML 42 ML IV (13:42)
--- NOTE | 2025-07-12 14:38 | PM.CN.IH.1 ---
History of Present Illness Consult details Date Patient Seen: 07/12/25 Time Patient Seen: 14:38 Chief complaint: feeding tube displaced, blood in trach solution Narrative: Jonnie is a 45-year-old man with multiple medical problems who first presented back in April after his gastrostomy tube fell out. He had peritonitis and so you had an exploratory laparotomy, washout and his gastrostomy was closed with a TA stapler and oversewn and a new jejunostomy was placed. The jejunostomy feeding tube was dislodged sometime Tuesday night or avian keeper and he was brought to the emergency room. An attempt at a PICC line was unsuccessful. Meds Home Medications and Allergies Home Medications ?Medication ?Instructions ?Recorded ?Confirmed ?Type Battery Powered Lift #1 ea 03/02/18 07/11/25 Rx Power Chair #1 ea 10/16/18 07/11/25 Rx Disabled Parking #1 ea 01/15/19 07/11/25 Rx Shower Chair #1 ea 07/04/19 07/11/25 Rx ferrous sulfate 325 mg (65 mg 130 mg PO DAILY 10/29/21 07/11/25 History iron) tablet XL mattress for semi-electric #1 ea 09/27/22 07/11/25 Rx hospital bed baclofen 5 mg/5 mL oral solution 5 mg (5 mL) PO DAILY #473 mL 01/20/23 07/11/25 Rx syringe with needle 3 mL 20 gauge #1 ea 08/10/23 07/11/25 History x 1 (BD Luer-Rafael Syringe) Mattress #1 ea 03/28/24 07/11/25 Rx Semi-electric hospital bed #1 ea 03/28/24 07/11/25 Rx apixaban 5 mg tablet (Eliquis) 5 mg PO BID #60 tabs 08/15/24 07/11/25 Rx blood-glucose meter (True Metrix #1 ea 12/05/24 07/11/25 History Air Glucose Meter) glucagon 1 mg solution for 1 mg IM ONCE 12/05/24 07/11/25 History injection (Glucagon Emergency Kit) folic acid 1 mg tablet 1 mg PO DAILY #90 tabs 12/13/24 07/11/25 Rx Lingraphica Communication Device #1 ea 01/23/25 07/11/25 Rx scopolamine base 1 mg over 3 days 1 patch topical Q3D #24 ea 03/15/25 07/11/25 Rx transdermal patch sodium chloride 0.9 % for 2.5 ml inhalation Q12H PRN 03/15/25 07/11/25 Rx nebulization shortness of breath or wheezing #300 mL suction catheter kit #5 ea 03/20/25 07/11/25 Rx sertraline 100 mg tablet 200 mg (2 x 100 mg) PO DAILY #60 05/01/25 07/11/25 Rx tabs banana 1 ea PO 4XD #450 ea 05/02/25 07/11/25 Rx flakes-transgalactooligosaccharide oral powder packet (Banatrol Plus oral powder packet) fludrocortisone 0.1 mg tablet 0.1 mg PO DAILY #100 tabs 06/03/25 07/11/25 Rx hydrocortisone 10 mg tablet 20 mg (2 x 10 mg) PO BID #120 tabs 06/03/25 07/11/25 Rx (Cortef) midodrine 5 mg tablet 5 mg TUBE Q4HR #100 tabs 06/03/25 07/11/25 Rx oxycodone 5 mg/5 mL oral solution 5 mg (5 mL) TUBE Q4HR PRN Pain, 06/03/25 07/11/25 Rx Moderate (4-6) #60 mL sodium hypochlorite 0.125 % 1 ml topical BID #100 mL 06/03/25 07/11/25 Rx solution (Dakin's Solution) vitamin A and D 1 applic topical 6XD PRN wound care 06/06/25 07/11/25 History zinc oxide-cod liver oil topical ea topical PRN PRN skin irritation 06/06/25 06/25/25 History ointment Disposable Cannula for Trach size #1 ea 06/25/25 07/11/25 Rx XLT, 60xltin, 6.0MMID, Schiley brand, inner cannula lansoprazole 30 mg capsule,delayed 30 mg PO BID #60 caps 06/25/25 07/11/25 Rx release levofloxacin 750 mg tablet 750 mg PO DAILY #6 tabs 06/25/25 07/11/25 Rx potassium chloride 20 mEq/15 mL 20 meq (15 mL) PO DAILY #500 mL 06/25/25 07/11/25 Rx oral liquid Allergies Allergy/AdvReac Type Severity Reaction Status Date / Time Penicillins (PENICILLINS) Allergy Severe RASH Verified 06/14/25 13:26 levofloxacin Allergy Intermediate Rash Verified 06/14/25 13:26 Exam Vital Signs (past 8 hours): - 07/12/25 07:00 07/12/25 07:00 07/12/25 08:00 Temperature 96.6 F L Pulse Rate 71 Respiratory Rate Blood Pressure 99/62 Pulse Oximetry 96 Oxygen Delivery Method Room Air Trach Collar Oxygen Flow Rate Fraction of Inspired Oxygen 07/12/25 08:58 07/12/25 13:38 Temperature 98.5 F Pulse Rate 70 Respiratory Rate 20 16 Blood Pressure 118/84 Pulse Oximetry 100 97 Oxygen Delivery Method Trach Collar Room Air Oxygen Flow Rate 6 Fraction of Inspired Oxygen 28 Fraction of Inspired Oxygen 28 SaO2/FiO2 Ratio 357 Oxygen Delivery Method Room Air Oxygen Flow Rate 6 Narrative Exam Narrative: Left mid abdominal jejunostomy wound with a small amount of granulation tissue present Upper midline scar from prior PEG tube Well-healed midline surgical scar Objective Labs 07/12/25 08:30 07/12/25 08:30 Labs: Laboratory Results - last 24 hr 07/11/25 07/12/25 07/12/25 17:40 05:20 08:30 WBC 4.6 RBC 3.48 L Hgb 9.5 L Hct 29.0 L MCV 83.4 MCH 27.2 MCHC 32.7 RDW 19.1 H Plt Count 303 Neut % (Auto) Not Reportable Lymph % (Auto) Not Reportable [place] % (Auto) Not Reportable Eos % (Auto) Not Reportable Baso % (Auto) Not Reportable Lymph # (Auto) Not Reportable [place] # (Auto) Not Reportable Baso # (Auto) Not Reportable Total Counted 100 Seg Neutrophils % 82.0 H Band Neutrophils % 4.0 Lymphocytes % (Manual) 14.0 L Neutrophils # (Manual) 3956 Platelet Estimate RBC Morphology See below Microcytosis 1+ H Sodium 138 Potassium 4.1 Chloride 106 Carbon Dioxide 24 BUN 15 Creatinine 0.30 L Estimated GFR > 60 BUN/Creatinine Ratio 50.0 H Glucose 99 POC Whole Bld Glucose 75 100 H Calcium 8.4 Total Bilirubin 0.4 AST 45 ALT 72 H Alkaline Phosphatase 76 Total Protein 6.7 Albumin 3.2 L Globulin 3.5 Albumin/Globulin Ratio 0.9 L Vancomycin Trough 26.3 H* 07/12/25 11:18 WBC RBC Hgb Hct MCV MCH MCHC RDW Plt Count Neut % (Auto) Lymph % (Auto) [place] % (Auto) Eos % (Auto) Baso % (Auto) Lymph # (Auto) [place] # (Auto) Baso # (Auto) Total Counted Seg Neutrophils % Band Neutrophils % Lymphocytes % (Manual) Neutrophils # (Manual) Platelet Estimate RBC Morphology Microcytosis Sodium Potassium Chloride Carbon Dioxide BUN Creatinine Estimated GFR BUN/Creatinine Ratio Glucose POC Whole Bld Glucose 99 Calcium Total Bilirubin AST ALT Alkaline Phosphatase Total Protein Albumin Globulin Albumin/Globulin Ratio Vancomycin Trough [facility] Medical History Chronic adrenal insufficiency Chronic anticoagulation Iron deficiency anemia History of pulmonary embolism Status post radiation therapy Chronic anticoagulation Tracheostomy in place Sacral decubitus ulcer, stage III Protein calorie malnutrition Hyponatremia Dysphagia Recurrent aspiration pneumonia Depression, major, recurrent Jejunostomy tube present Influenza A Anemia Pneumonia 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 Father No problems noted. Social History marital status: unmarried,single details: Lives independantly with part-time caregivers household members: caregiver lives independently: Yes occupational status: disabled Tobacco & Substance Use alcohol intake: former substance use type: marijuana Assessment & Plan Assessment and plan (1) Dislodged jejunostomy tube: Status: Acute Plan I explained to Jonnie as well as his mother Marianela by phone that I will bring him to the operating room and attempt to replace the jejunostomy using ureteral scope to find the tract into the small bowel. If I am able to successfully find the tract to the small bowel I will replace the jejunostomy tube over a wire. If I am not able to successfully find the tract with the ureteral scope I will change plans and perform a percutaneous endoscopic gastrostomy tube. I will attempt to insert a post pyloric feeding tube if we end up doing a PEG. Time-Based Coding :: [TOTAL MINUTES] spent with patient and on the chart (including review of chart, obtaining history, exam, reviewing outside data, placing orders, documenting exam and treatment plan, and counseling patient) on [DATE]. PROFEE Charge Codes Inpatient or Observation consultation: 93115
--- NOTE | 2025-07-12 15:16 | SUR.OPER ---
Supine on padded OR bed, head on pillow, arms secured on padded arm boards supported at sides. legs uncrossed, safety belt at thigh, padded with blankets and pillow to pt comfort. final positioning approved by provider
[2025-07-12] MEDS: LIDOCAINE 1% (PF) 5 ML INJ (15:55)
[2025-07-12] MEDS: DIATRIZOATE MEGLUMINE, SODIUM 30 ML SOLUTION 10 ML PO (15:55)
--- NOTE | 2025-07-12 15:58 | DI.RAD.S_ITS ---
PROCEDURE: XR CHEST 1V INDICATIONS: replaced jejunostomy tube TECHNIQUE: One view of the chest was acquired. COMPARISON: [facility], CR, XR ABDOMEN 1V, 07/12/2025, 15:50. [facility], CR, XR CHEST 1V, 07/10/2025, 16:33. [facility], CR, XR CHEST 1V, 06/14/2025, 14:01. FINDINGS: Lungs bases: Left pleural effusion and basilar opacities, better visualized on prior chest radiographs. Abdomen: Paucity of bowel gas. No acute abnormality. Jejunostomy tube is present. IMPRESSION: Jejunostomy tube projects over the mid abdomen. Dictated by: Danish Tiwari M.D. on 07/12/2025 at 17:30 Approved by: Danish Tiwari M.D. on 07/12/2025 at 17:38
--- NOTE | 2025-07-12 16:00 | PM.OP.1 ---
Operative Date/Time/Diagnoses Date of procedure: 07/12/25 Time of procedure: 16:01 Pre-op diagnosis: Malnutrition Post-op diagnosis: same Procedure & Clinicians Procedure: Replacement of jejunostomy tube with endoscopic and fluoroscopic guidance Same procedure(s) as scheduled: Yes Surgeon: Alen Naqvi Assisted?: No Anesthesia Type: MAC +/- Operative Notes Findings: Good flow of Gastrografin into the small bowel Applied: none Estimated Blood Loss (mL): 5 Procedure in detail: The patient is a 45-year-old man who is dependent on tube feeds. He had had a jejunostomy placed in April after his gastrostomy tube was dislodged and leaked. His jejunostomy tube had been dislodged approximately 36 hours prior to this procedure. Consent was obtained with the assistance of his mother. The patient was brought to the operating room and monitored anesthesia was induced. After a time-out was performed a well lubricated ureteral scope was inserted into the old jejunostomy tract. Once jejunal villi were seen the 0.035 soft tip Glidewire was inserted into the jejunum under direct vision. The wire was stabilized and the ureteral scope was removed over the wire. Next a 14 Croatian red rubber catheter was chosen. The tip was cut off so that it would be able to slide over the wire. Lubrication was applied to the tip and the catheter was advanced into the jejunum over the wire. The wire was then removed. A small volume of Gastrografin was injected into the jejunum through the jejunostomy tube and fluoroscopy was used to confirm that the tip of the jejunostomy tube was within the lumen of the bowel and there was no obvious extravasation. About 4 mL of lidocaine were injected into the skin below the jejunostomy site. The jejunostomy tube was then secured to the skin with a stitch and some gauze was applied. The patient was awakened and brought to recovery where a plain film chest x-ray was ordered. EBL: 4 mL Complications: none Post-operative Condition: stable Disposition: PACU
--- NOTE | 2025-07-12 17:15 | PC.NURSE ---
1640 Pt returned from OR, successful in placing feeding tube, per Dr Driss benjamin to use right away as long as starting at 10mLhr, started tube feed as ordered by dietary, VSS, no further needs at this time, call light within reach, care ongoing.
[2025-07-12] MEDS: MIDODRINE HCL 5 MG TABLET TUBE (20:44)
[2025-07-12] MEDS: HYDROCORTISONE 10 MG TABLET 20 MG PO (20:44)
[2025-07-13] VITALS (7 sets, daily range): BP systolic 106–142; BP diastolic 61–79; PULSE 62–69; RESP 18–20; TEMP 36.2–37.1; O2SAT 98–100
[2025-07-13] MEDS: MIDODRINE HCL 5 MG TABLET TUBE ×4 (01:15→13:07)
--- NOTE | 2025-07-13 02:49 | PC.NURSE ---
Vanco level 30.1, notified Pharm, too hold next dose
[2025-07-13] MEDS: MEROPENEM 1 GM in SODIUM CHLORIDE 0.9% 100 ML IV ×3 (02:54→19:45)
[2025-07-13] MEDS: VANCOMYCIN TROUGH 1 REQUEST MISC (04:34)
[2025-07-13] MEDS: HYDROCORTISONE 100 MG/2 ML VIAL IV (05:39)
--- NOTE | 2025-07-13 08:04 | PM.PN.1 ---
Subjective Subjective Date Patient Seen: 07/13/25 Interval history: The patient is a 45 yo with severe CP, spastic hemiplegia, adrenal insullicency, with tracheostomy, decubitus stage III on the sacrum, wheelchair bound with a hx of G tube that fell out and caused peritonitis in April of this year at [facility] who has been living with his mother but he lost his current J-tube today. S: He was doing well, denies pain. O: NAD, alert and oriented, fluent speech, calm. Chronically ill in appearance, cachectic. He was a tracheostomy in place. He was right shoulder is excoriated and there was redness in the armpit. There was no fluctuance. Normocephalic skull, EOMI, anicteric sclera, symmetric pupils. Oropharynx unremarkable, no droop. Neck supple, midline trachea, no adenopathy. Lungs clear, normal rate and effort. Heart regular, no murmur gallop or rub. Abdomen is soft, non distended and non tender. Extremities are free of edema. Skin is notable for redness in the right axilla and multiple excoriations over both shoulders but right greater than left consistent with previous itching. Joints are deformed. IMAGING: CTA P: No bowel obstruction. A tract is seen from the prior jejunostomy, without fluid collection in the region. Chronic left lower lung opacity with bronchiectasis. Trace adjacent effusion. Moderate colorectal fecal loading. Other findings above No significant changes from the preliminary report. Abdomen ultrasound: IMPRESSION: Limited study demonstrating a liver that is prominent in size, yet with normal echogenicity. No focal liver lesions are seen. Chest x-ray: Potential interval worsening of a process in the left hemithorax. There is chronic volume loss and opacity. There is a suggestion of possible development of basilar atelectasis and pleural fluid. A/P: 1. Cerebral Palsy with malnutrition- General srgery has been consulted and evaluated the pt, we are holding the Eliquis in case surgery for the tube placement may be needed, 2. Adrenal Insufficiency- restarting home fludrocortisone and hydrocortisone, would give stress dose prior to surgery. 3. Chronic respiratory failure- CXR reviewed, will hve RT consulted, start breathing tx, maybe chest physiotherapy. 4. Stage 3 decubitus. 5. PE, stable. 6. Elevated LFT's 7. Severe protein caloric malnutrition with BMI of 21 and evidence of diffuse muscle wasting. 8. Chronic left lung pneumonia, active. 9. Chronic sacral decubitus, at least stage III. PLAN: -continue antibiotics. added ceftriaxone -stress dose steroids with hydrocortisone 100 Q 8. -Unable to place PICC. Unable to give TPN for that reason. -continue to hold Eliquis, hold Lovenox this morning. -PEG replacement. Likely today. Exam Vital Signs (past 8 hours): - 07/13/25 02:43 07/13/25 04:05 Temperature 97.1 F L Pulse Rate 63 Respiratory Rate 20 Blood Pressure 106/61 Pulse Oximetry 98 99 Oxygen Delivery Method Trach Collar Oxygen Flow Rate 6 5 Fraction of Inspired Oxygen 28 Fraction of Inspired Oxygen 28 SaO2/FiO2 Ratio 350 Oxygen Delivery Method Trach Collar Oxygen Flow Rate 5 Objective Labs 07/12/25 08:30 07/12/25 08:30 Labs: Laboratory Results - last 24 hr 07/12/25 07/12/25 07/12/25 08:30 11:18 17:00 WBC 4.6 RBC 3.48 L Hgb 9.5 L Hct 29.0 L MCV 83.4 MCH 27.2 MCHC 32.7 RDW 19.1 H Plt Count 303 Neut % (Auto) Not Reportable Lymph % (Auto) Not Reportable [place] % (Auto) Not Reportable Eos % (Auto) Not Reportable Baso % (Auto) Not Reportable Lymph # (Auto) Not Reportable [place] # (Auto) Not Reportable Baso # (Auto) Not Reportable Total Counted 100 Seg Neutrophils % 82.0 H Band Neutrophils % 4.0 Lymphocytes % (Manual) 14.0 L Neutrophils # (Manual) 3956 Platelet Estimate RBC Morphology See below Microcytosis 1+ H Sodium 138 Potassium 4.1 Chloride 106 Carbon Dioxide 24 BUN 15 Creatinine 0.30 L Estimated GFR > 60 BUN/Creatinine Ratio 50.0 H Glucose 99 POC Whole Bld Glucose 99 87 Calcium 8.4 Total Bilirubin 0.4 AST 45 ALT 72 H Alkaline Phosphatase 76 Total Protein 6.7 Albumin 3.2 L Globulin 3.5 Albumin/Globulin Ratio 0.9 L Vancomycin Trough 26.3 H* 07/12/25 07/13/25 07/13/25 22:46 02:15 05:12 WBC RBC Hgb Hct MCV MCH MCHC RDW Plt Count Neut % (Auto) Lymph % (Auto) [place] % (Auto) Eos % (Auto) Baso % (Auto) Lymph # (Auto) [place] # (Auto) Baso # (Auto) Total Counted Seg Neutrophils % Band Neutrophils % Lymphocytes % (Manual) Neutrophils # (Manual) Platelet Estimate RBC Morphology Microcytosis Sodium Potassium Chloride Carbon Dioxide BUN Creatinine Estimated GFR BUN/Creatinine Ratio Glucose POC Whole Bld Glucose 107 H 140 H Calcium Total Bilirubin AST ALT Alkaline Phosphatase Total Protein Albumin Globulin Albumin/Globulin Ratio Vancomycin Trough 30.1 H* [facility] Medical History Chronic adrenal insufficiency Chronic anticoagulation Iron deficiency anemia History of pulmonary embolism Status post radiation therapy Chronic anticoagulation Tracheostomy in place Sacral decubitus ulcer, stage III Protein calorie malnutrition Hyponatremia Dysphagia Recurrent aspiration pneumonia Depression, major, recurrent Jejunostomy tube present Influenza A Anemia Pneumonia 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 Father No problems noted. Social History marital status: unmarried,single details: Lives independantly with part-time caregivers household members: caregiver lives independently: Yes occupational status: disabled alcohol intake: former substance use type: marijuana Assessment & Plan Time-Based Coding :: [TOTAL MINUTES] spent with patient and on the chart (including review of chart, obtaining history, exam, reviewing outside data, placing orders, documenting exam and treatment plan, and counseling patient) on [DATE].
[2025-07-13] MEDS: FLUCONAZOLE 100 MG/50 ML PIGGYBACK IV (08:44)
[2025-07-13] MEDS: HYDROCORTISONE 10 MG TABLET 20 MG PO ×2 (08:44→21:37)
[2025-07-13] MEDS: FLUDROCORTISONE 0.1 MG TABLET PO (08:45)
[2025-07-13] MEDS: CLOTRIMAZOLE 1% VAG CRM 45 GM 1 APPLIC TOP ×2 (08:45→21:00)
[2025-07-13] MEDS: SERTRALINE 50 MG TABLET 200 MG PO (08:45)
[2025-07-13] MEDS: BACLOFEN 10 MG TABLET 5 MG PO (08:45)
[2025-07-13] MEDS: SODIUM CHLORIDE 0.9% 1,000 ML 100 ML IV ×2 (08:46→19:47)
--- NOTE | 2025-07-13 11:18 | PM.PN.IH.1 ---
Subjective Subjective Date Patient Seen: 07/13/25 Time Patient Seen: 08:57 Interval history: Admission note: The patient is a 45 yo with severe CP, spastic hemiplegia, adrenal insullicency, with tracheostomy, decubitus stage III on the sacrum, wheelchair bound with a hx of G tube that fell out and caused peritonitis in April of this year at [facility] who has been living with his mother but he lost his current J-tube today. S: His jejunal tube was placed in the operating room on 07/12. He is doing well, denies pain. He is sad and tearful today. Sertraline was just started. Attempted PICC was unsuccessful. Tube feeds were advanced to 30 mL/hour. O: NAD, alert and oriented, fluent speech, calm. Chronically ill in appearance, cachectic. He was a tracheostomy in place. He was right shoulder is excoriated and there was redness in the armpit. There was no fluctuance. Normocephalic skull, EOMI, anicteric sclera, symmetric pupils. Oropharynx unremarkable, no droop. Neck supple, midline trachea, no adenopathy. Lungs clear, normal rate and effort. Heart regular, no murmur gallop or rub. Abdomen is soft, non distended and non tender. Extremities are free of edema. Skin is notable for redness in the right axilla and multiple excoriations over both shoulders but right greater than left consistent with previous itching, with extensive erythema and excoriations on his back.. Joints are deformed. IMAGING: CTA P: No bowel obstruction. A tract is seen from the prior jejunostomy, without fluid collection in the region. Chronic left lower lung opacity with bronchiectasis. Trace adjacent effusion Moderate colorectal fecal loading Other findings above No significant changes from the preliminary report. Abdomen ultrasound: Limited study demonstrating a liver that is prominent in size, yet with normal echogenicity. No focal liver lesions are seen. Chest x-ray: Potential interval worsening of a process in the left hemithorax. There is chronic volume loss and opacity. There is a suggestion of possible development of basilar atelectasis and pleural fluid. A/P: 1. Cerebral Palsy with malnutrition- J-tube replaced on 07/12. Tube feeds advancing. 2. Adrenal Insufficiency- continue home fludrocortisone and hydrocortisone, would give stress dose prior to surgery. 3. Chronic respiratory failure- CXR reviewed, will hve RT consulted, start breathing tx, maybe chest physiotherapy. 4. Stage 3 decubitus. 5. PE, stable. Restart apixiban. 6. Elevated LFT's 7. Severe protein caloric malnutrition with BMI of 21 and evidence of diffuse muscle wasting. 8. Chronic left lung pneumonia, active. 9. Chronic sacral decubitus, at least stage III. PLAN: -continue empiric vancomycin and ceftriaxone and fluconazole IV pending cultures -advance tube feeds -follow cultures -stop stress dose steroids, resume usual hydrocortisone/fludrocortisone -restart apixiban -investigate placement options given failure of care in home setting Exam Vital Signs (past 8 hours): - 07/13/25 04:05 07/13/25 07:00 07/13/25 07:00 Temperature 97.1 F L Pulse Rate 63 Respiratory Rate 20 Blood Pressure 106/61 Pulse Oximetry 99 99 Oxygen Delivery Method Room Air Humidification Trach Collar Oxygen Flow Rate 5 Fraction of Inspired Oxygen 07/13/25 08:33 07/13/25 08:57 Temperature 98.6 F Pulse Rate 66 69 Respiratory Rate 18 Blood Pressure 125/79 Pulse Oximetry 100 98 Oxygen Delivery Method Trach Collar Oxygen Flow Rate 0 6 Fraction of Inspired Oxygen 28 Fraction of Inspired Oxygen 28 SaO2/FiO2 Ratio 350 Oxygen Delivery Method Trach Collar Oxygen Flow Rate 6 Objective Labs 07/12/25 08:30 07/12/25 08:30 Labs: Laboratory Results - last 24 hr 07/12/25 07/12/25 07/12/25 11:18 17:00 22:46 POC Whole Bld Glucose 99 87 107 H Vancomycin Trough 07/13/25 07/13/25 07/13/25 02:15 05:12 11:14 POC Whole Bld Glucose 140 H 113 H Vancomycin Trough 30.1 H* [facility] Medical History Chronic adrenal insufficiency Chronic anticoagulation Iron deficiency anemia History of pulmonary embolism Status post radiation therapy Chronic anticoagulation Tracheostomy in place Sacral decubitus ulcer, stage III Protein calorie malnutrition Hyponatremia Dysphagia Recurrent aspiration pneumonia Depression, major, recurrent Jejunostomy tube present Influenza A Anemia Pneumonia 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 Father No problems noted. 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
[2025-07-13] MEDS: APIXABAN 5 MG TABLET TUBE ×2 (13:07→21:38)
--- NOTE | 2025-07-13 14:41 | P.PN_ITS ---
Subjective Subjective Date Patient Seen: 07/13/25 Time Patient Seen: 14:41 Interval history: Jonnie has been tolerating tube feeds which are now up to 30 mL an hour. Exam Vital Signs (past 8 hours): - 07/13/25 07:00 07/13/25 07:00 07/13/25 08:33 Temperature 98.6 F Pulse Rate 66 Respiratory Rate 18 Blood Pressure 125/79 Pulse Oximetry 99 100 Oxygen Delivery Method Room Air Humidification Trach Collar Oxygen Flow Rate 0 Fraction of Inspired Oxygen 07/13/25 08:57 Temperature Pulse Rate 69 Respiratory Rate Blood Pressure Pulse Oximetry 98 Oxygen Delivery Method Trach Collar Oxygen Flow Rate 6 Fraction of Inspired Oxygen 28 Fraction of Inspired Oxygen 28 SaO2/FiO2 Ratio 350 Oxygen Delivery Method Trach Collar Oxygen Flow Rate 6 Narrative Exam Narrative: Abdomen is soft Objective Labs 07/12/25 08:30 07/12/25 08:30 Labs: Laboratory Results - last 24 hr 07/12/25 07/12/25 07/13/25 17:00 22:46 02:15 POC Whole Bld Glucose 87 107 H Vancomycin Trough 30.1 H* 07/13/25 07/13/25 05:12 11:14 POC Whole Bld Glucose 140 H 113 H Vancomycin Trough PFSH Medical History Chronic adrenal insufficiency Chronic anticoagulation Iron deficiency anemia History of pulmonary embolism Status post radiation therapy Chronic anticoagulation Tracheostomy in place Sacral decubitus ulcer, stage III Protein calorie malnutrition Hyponatremia Dysphagia Recurrent aspiration pneumonia Depression, major, recurrent Jejunostomy tube present Influenza A Anemia Pneumonia 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 Father No problems noted. Social History marital status: unmarried,single details: Lives independantly with part-time caregivers household members: caregiver lives independently: Yes occupational status: disabled alcohol intake: former substance use type: marijuana Assessment & Plan Assessment and plan (1) Dislodged jejunostomy tube: Status: Acute Plan Okay to increase tube feeds as tolerates Time-Based Coding :: [TOTAL MINUTES] spent with patient and on the chart (including review of chart, obtaining history, exam, reviewing outside data, placing orders, documenting exam and treatment plan, and counseling patient) on [DATE]. PROFEE Director Of Physical Education Document charge(s): No
[2025-07-13] MEDS: VANCOMYCIN 1,250 MG/250 ML PIGGYBACK 250 MG IV (21:00)
[2025-07-14] VITALS (10 sets, daily range): BP systolic 111–135; BP diastolic 72–87; PULSE 59–69; RESP 17–20; TEMP 36.4–37.6; O2SAT 98–100
[2025-07-14] MEDS: MEROPENEM 1 GM in SODIUM CHLORIDE 0.9% 100 ML IV ×3 (02:42→18:12)
[2025-07-14] MEDS: SODIUM HYPOCHLORITE 473 ML SOLUTION TOP ×3 (03:44→21:02)
[2025-07-14] MEDS: SCOPOLAMINE 1 PATCH TOP (03:55)
[2025-07-14 05:06] LABS: Add Manual Diff / Slide Review NO; Hematocrit 24.2 % (41-53); Hemoglobin 7.8 g/dL (13.5-17.5); Lymphocytes Absolute Auto 900 /uL (1100-4500); Mean Corpuscular HGB Conc 32.1 % (30-36); Mean Corpuscular Hemoglobin 26.7 PG (26-34); Mean Corpuscular Volume 83.2 fL (80-100); Platelet Count 302 X10^3/uL (150-400)
[2025-07-14 05:24] LABS: Alanine Aminotransferase 42 IU/L (<50); Albumin 2.6 g/dL (3.5-5.0); Albumin Globulin Ratio 0.9 (1.0-2.8); Alkaline Phosphatase 72 U/L (38-126); Blood Urea Nitrogen 14 mg/dL (9-20); Calcium 7.6 mg/dL (8.4-10.2); Carbon Dioxide 26 mmol/L (22-32); Chloride 107 mmol/L (98-107); Estimated Glomerular Filt Rate > 60 mL/min (>60); Globulin 2.9 g/dL (1.7-4.1); Glucose 95 mg/dL (70-99); HEMOLYSIS < 15 (0-50); Potassium 3.0 mmol/L (3.4-5.1); Sodium 137 mmol/L (137-145); Total Protein 5.5 g/dL (6.3-8.2)
--- NOTE | 2025-07-14 07:22 | PC.NURSE ---
Lab informed that pt has MRSA in wound. Notified PERCY Ludwig
[2025-07-14] MEDS: SERTRALINE 50 MG TABLET 200 MG PO (09:54)
[2025-07-14] MEDS: HYDROCORTISONE 10 MG TABLET 20 MG PO ×2 (09:54→21:00)
[2025-07-14] MEDS: APIXABAN 5 MG TABLET TUBE ×2 (09:54→21:01)
[2025-07-14] MEDS: POTASSIUM CHLORIDE 20 MEQ/15 ML UDC 40 MEQ TUBE ×2 (09:54→16:11)
[2025-07-14] MEDS: BACLOFEN 10 MG TABLET 5 MG PO (09:54)
[2025-07-14] MEDS: FLUDROCORTISONE 0.1 MG TABLET PO (09:54)
[2025-07-14] MEDS: MIDODRINE HCL 5 MG TABLET TUBE ×4 (09:56→21:01)
[2025-07-14] MEDS: SODIUM CHLORIDE 0.9% FLUSH 10 ML IV ×2 (09:56→21:01)
[2025-07-14] MEDS: CLOTRIMAZOLE 1% VAG CRM 45 GM 1 APPLIC TOP ×2 (09:57→22:08)
[2025-07-14] MEDS: VANCOMYCIN 1,250 MG/250 ML PIGGYBACK 250 MG IV ×2 (10:32→21:01)
[2025-07-14] MEDS: VANCOMYCIN TROUGH 1 REQUEST MISC (10:32)
--- NOTE | 2025-07-14 10:55 | PM.PN.IH.1 ---
Subjective Subjective Date Patient Seen: 07/14/25 Time Patient Seen: 08:40 Interval history: Admission note: The patient is a 45 yo with severe CP, spastic hemiplegia, adrenal insullicency, with tracheostomy, decubitus stage III on the sacrum, wheelchair bound with a hx of G tube that fell out and caused peritonitis in April of this year at [facility] who has been living with his mother but he lost his current J-tube today. S: 07/13: His jejunal tube was placed in the operating room on 07/12. He is doing well, denies pain. He is sad and tearful today. Sertraline was just started. Attempted PICC was unsuccessful. Tube feeds were advanced to 30 mL/hour. 07/14: Tube feeds are up to 70 mL/hour. He is feeling better, less emotional. Care was reviewed in detail with the patient's mother yesterday. The patient has a new caregiver and apparently found his tube had become dislodged at home. They are not sure how that happened. The patient's mother is very frustrated about this. She states that she thinks that they have the caregiver situation in place presently. Sacral wound culture shows MRSA and unidentified Gram-negative bacillus, culture pending. O: NAD, alert and oriented, fluent speech, calm. Chronically ill in appearance, cachectic. He was a tracheostomy in place. He was right shoulder is excoriated and there was redness in the armpit. There was no fluctuance. Normocephalic skull, EOMI, anicteric sclera, symmetric pupils. Oropharynx unremarkable, no droop. Neck supple, midline trachea, no adenopathy. Lungs clear, normal rate and effort. Heart regular, no murmur gallop or rub. Abdomen is soft, non distended and non tender. Extremities are free of edema. Skin is notable for minimal erythema in the right axilla and multiple excoriations over both shoulders but right greater than left consistent with previous itching, with resolved erythema and excoriations on his back. 3.5 x 3.5 cm sacral stage 3-4 decubitus photo in chart. Joints are deformed. IMAGING: CTA P: No bowel obstruction. A tract is seen from the prior jejunostomy, without fluid collection in the region. Chronic left lower lung opacity with bronchiectasis. Trace adjacent effusion Moderate colorectal fecal loading Other findings above No significant changes from the preliminary report. Abdomen ultrasound: Limited study demonstrating a liver that is prominent in size, yet with normal echogenicity. No focal liver lesions are seen. Chest x-ray: Potential interval worsening of a process in the left hemithorax. There is chronic volume loss and opacity. There is a suggestion of possible development of basilar atelectasis and pleural fluid. A/P: 1. Cerebral Palsy with malnutrition- J-tube replaced on 07/12. Tube feeds advancing. 2. Adrenal Insufficiency- continue home fludrocortisone and hydrocortisone, would give stress dose prior to surgery. 3. Chronic respiratory failure- CXR reviewed, will hve RT consulted, start breathing tx, maybe chest physiotherapy. 4. Stage 3-4 sacral decubitus culturing MRSA, consistent with infected sacral decubitus. Pending identification of Gram-negative bacillus. 5. PE, stable. Continue apixiban. 6. Elevated LFT's, resolved, likely reactive. 7. Severe protein caloric malnutrition with BMI of 21 and evidence of diffuse muscle wasting. 8. Chronic left lung pneumonia, active. 9. Chronic sacral decubitus, at least stage III. PLAN: -continue IV vancomycin for MRSA coverage, plan to switch to Zyvox at discharge -continue IV meropenem for Gram-negative bacillus coverage, reassess and follow cultures. -continue tube feeds at goal -continue usual hydrocortisone/fludrocortisone -continue apixiban -investigate placement options given failure of care in home setting. He will require a solid caregiver plan at discharge. Lengthy discussion with the patient's mother yesterday regarding the need for outpatient wound care follow-up to maximize healing of his wound. If they are unable to achieve a reliable caregiver plan he would best be served medically by a long-term care facility. However, in this unfortunate young male patient with advanced CP, multiple comorbidities and completely dependent status, a long-term care facility would not be the optimal place for him emotionally given his tendency to severe depression, and any such placement considerations will need to take this into account. An ethics consult may be in order if there are further challenges regarding placement. Exam Vital Signs (past 8 hours): - 07/14/25 04:00 07/14/25 09:17 Temperature 97.8 F 99.3 F Pulse Rate 62 63 Respiratory Rate 18 17 Blood Pressure 118/72 135/78 Pulse Oximetry 99 100 Oxygen Flow Rate 5 5 Fraction of Inspired Oxygen 28 SaO2/FiO2 Ratio 350 Oxygen Delivery Method Trach Collar Oxygen Flow Rate 5 Objective Labs 07/14/25 04:30 07/14/25 04:30 Labs: Laboratory Results - last 24 hr 07/13/25 07/13/25 07/14/25 11:14 16:37 00:31 WBC RBC Hgb Hct MCV MCH MCHC RDW Plt Count Neut % (Auto) Lymph % (Auto) [place] % (Auto) Eos % (Auto) Baso % (Auto) Neut # (Auto) Lymph # (Auto) [place] # (Auto) Eos # (Auto) Baso # (Auto) Sodium Potassium Chloride Carbon Dioxide BUN Creatinine Estimated GFR BUN/Creatinine Ratio Glucose POC Whole Bld Glucose 113 H 93 78 Calcium Total Bilirubin AST ALT Alkaline Phosphatase Total Protein Albumin Globulin Albumin/Globulin Ratio Vancomycin Trough 07/14/25 07/14/25 07/14/25 04:30 06:01 09:00 WBC 3.5 L RBC 2.91 L Hgb 7.8 L Hct 24.2 L MCV 83.2 MCH 26.7 MCHC 32.1 RDW 18.6 H Plt Count 302 Neut % (Auto) 63.2 Lymph % (Auto) 26.4 [place] % (Auto) 10.0 Eos % (Auto) 0.2 L Baso % (Auto) 0.2 Neut # (Auto) 2200 Lymph # (Auto) 900 L [place] # (Auto) 300 Eos # (Auto) 0 Baso # (Auto) 0 Sodium 137 Potassium 3.0 L Chloride 107 Carbon Dioxide 26 BUN 14 Creatinine 0.38 L Estimated GFR > 60 BUN/Creatinine Ratio 36.8 H Glucose 95 POC Whole Bld Glucose 106 H Calcium 7.6 L Total Bilirubin < 0.1 L AST 35 ALT 42 Alkaline Phosphatase 72 Total Protein 5.5 L Albumin 2.6 L Globulin 2.9 Albumin/Globulin Ratio 0.9 L Vancomycin Trough 18.3 PFSH Medical History Chronic adrenal insufficiency Chronic anticoagulation Iron deficiency anemia History of pulmonary embolism Status post radiation therapy Chronic anticoagulation Tracheostomy in place Sacral decubitus ulcer, stage III Protein calorie malnutrition Hyponatremia Dysphagia Recurrent aspiration pneumonia Depression, major, recurrent Jejunostomy tube present Influenza A Anemia Pneumonia 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 Father No problems noted. Social History marital status: unmarried,single details: Lives independantly with part-time caregivers household members: caregiver lives independently: Yes occupational status: disabled alcohol intake: former substance use type: marijuana IH PROFEE Plastics Tooling Engineer Document charge(s): No Charge Codes Subsequent inpatient/observation care: [id number]
[2025-07-14] MEDS: FLUCONAZOLE 100 MG TABLET PO (12:45)
--- NOTE | 2025-07-14 17:26 | PC.NURSE ---
Multiple runny BMs during the morning. TF at goal with FWF. NS stopped. Q2h turning and dressing changed using Dakins. Mom at bedside. Oral care completed, trach collar entire shift, no desaturations. No complaints of pain
[2025-07-15] VITALS (10 sets, daily range): BP systolic 113–116; BP diastolic 77–80; PULSE 75–79; RESP 20–24; TEMP 36.4–37.4; O2SAT 93–98
[2025-07-15] MEDS: MIDODRINE HCL 5 MG TABLET TUBE ×6 (00:43→20:17)
[2025-07-15] MEDS: MEROPENEM 1 GM in SODIUM CHLORIDE 0.9% 100 ML IV ×3 (02:23→18:03)
--- NOTE | 2025-07-15 06:39 | PM.PN.IH.1 ---
Subjective Subjective Date Patient Seen: 07/15/25 Time Patient Seen: 06:39 Interval history: Tolerating TF at goal Exam Vital Signs (past 8 hours): - 07/14/25 23:00 07/15/25 02:04 07/15/25 04:00 Temperature 97.6 F 99.4 F Pulse Rate 68 Respiratory Rate 20 Blood Pressure 111/77 Pulse Oximetry 98 98 Oxygen Delivery Method Trach Collar Oxygen Flow Rate 0 6 Fraction of Inspired Oxygen 28 07/15/25 04:31 07/15/25 04:40 07/15/25 05:07 Temperature 99.4 F Pulse Rate 79 Respiratory Rate 24 Blood Pressure 113/77 Pulse Oximetry 98 98 Oxygen Delivery Method Trach Collar Oxygen Flow Rate 6 Fraction of Inspired Oxygen 28 Fraction of Inspired Oxygen 28 SaO2/FiO2 Ratio 350 Oxygen Delivery Method Trach Collar Oxygen Flow Rate 6 GI Other: ABD: soft, ND, no grimace with exam, J-tube site without erythema or purulent drainage Objective Labs 07/14/25 04:30 07/14/25 04:30 Labs: Laboratory Results - last 24 hr 07/14/25 07/14/25 07/14/25 09:00 11:29 16:51 POC Whole Bld Glucose 81 98 Vancomycin Trough 18.3 07/14/25 07/14/25 07/15/25 23:05 23:07 05:13 POC Whole Bld Glucose 85 86 96 Vancomycin Trough PFSH Medical History Chronic adrenal insufficiency Chronic anticoagulation Iron deficiency anemia History of pulmonary embolism Status post radiation therapy Chronic anticoagulation Tracheostomy in place Sacral decubitus ulcer, stage III Protein calorie malnutrition Hyponatremia Dysphagia Recurrent aspiration pneumonia Depression, major, recurrent Jejunostomy tube present Influenza A Anemia Pneumonia 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 Father No problems noted. Social History marital status: unmarried,single details: Lives independantly with part-time caregivers household members: caregiver lives independently: Yes occupational status: disabled alcohol intake: former substance use type: marijuana Assessment & Plan Assessment and plan (1) Dislodged jejunostomy tube: Status: Acute Plan Tolerating TF at goal rate Tmax 99.7 No sign of infection at J-tube site Continue TF Time-Based Coding :: [TOTAL MINUTES] spent with patient and on the chart (including review of chart, obtaining history, exam, reviewing outside data, placing orders, documenting exam and treatment plan, and counseling patient) on [DATE]. PROFEE Retirement Administrator Document charge(s): Yes Charge Codes Subsequent inpatient/observation care: [id number]
--- NOTE | 2025-07-15 07:52 | PM.PN.1 ---
Subjective Subjective Date Patient Seen: 07/15/25 Interval history: The patient is a 45 yo with severe CP, spastic hemiplegia, adrenal insullicency, with tracheostomy, decubitus stage III on the sacrum, wheelchair bound with a hx of G tube that fell out and caused peritonitis in April of this year at [facility] who has been living with his mother but he lost his current J-tube today. S: 07/13: His jejunal tube was placed in the operating room on 07/12. He is doing well, denies pain. He is sad and tearful today. Sertraline was just started. Attempted PICC was unsuccessful. Tube feeds were advanced to 30 mL/hour. 07/14: Tube feeds are up to 70 mL/hour. He is feeling better, less emotional. Care was reviewed in detail with the patient's mother yesterday. The patient has a new caregiver and apparently found his tube had become dislodged at home. They are not sure how that happened. The patient's mother is very frustrated about this. She states that she thinks that they have the caregiver situation in place presently. Sacral wound culture shows MRSA and unidentified Gram-negative bacillus, culture pending. 07/15: His wound culture is now growing: Acinetobacter baumannii comple along with the MRSA. He is penicillin allergic. Meropenem is the only other sensitivity reported. His foot rashes a lot better, responding to the antifungal. The potassium is 3.0 so 40 mEq of potassium chloride was given. Subsequently it is 3.9. The hemoglobin is 7.8. O: NAD, alert and calm. His only response to my attempts to communicate are grunting. Chronically ill in appearance, cachectic. He was a tracheostomy in place. He was right shoulder is excoriated and there was redness in the armpit. There was no fluctuance. Neck supple, midline trachea, no adenopathy. Lungs clear, normal rate and effort. Heart regular, no murmur gallop or rub. Abdomen is soft, non distended and non tender. Extremities are free of edema. Skin is notable for minimal erythema in the right axilla and multiple excoriations over both shoulders but right greater than left consistent with previous itching, with resolved erythema and excoriations on his back. 3.5 x 3.5 cm sacral stage 3-4 decubitus photo in chart. Tinea pedis appears improved. Joints are deformed. IMAGING: CTA P: No bowel obstruction. A tract is seen from the prior jejunostomy, without fluid collection in the region. Chronic left lower lung opacity with bronchiectasis. Trace adjacent effusion Moderate colorectal fecal loading Other findings above No significant changes from the preliminary report. Abdomen ultrasound: Limited study demonstrating a liver that is prominent in size, yet with normal echogenicity. No focal liver lesions are seen. Chest x-ray: Potential interval worsening of a process in the left hemithorax. There is chronic volume loss and opacity. There is a suggestion of possible development of basilar atelectasis and pleural fluid. A/P: 1. Cerebral Palsy with malnutrition- J-tube replaced on 07/12. Tube feeds advancing. 2. Adrenal Insufficiency- continue home fludrocortisone and hydrocortisone, would give stress dose prior to surgery. 3. Chronic respiratory failure- CXR reviewed, RT consulted, start breathing tx, maybe chest physiotherapy. 4. Stage 3-4 sacral decubitus culturing MRSA, consistent with infected sacral decubitus. Acinetobacter baumannii comple also cultured. Limited sensitivities available. 5. PE, stable. Continue apixiban. 6. Elevated LFT's, resolved, likely reactive. 7. Severe protein caloric malnutrition with BMI of 21 and evidence of diffuse muscle wasting. 8. Chronic left lung pneumonia, active. 9. Chronic sacral decubitus, at least stage III. 10. Hypokalemia 11. Tinea Pedis PLAN: -continue IV vancomycin for MRSA coverage, plan to switch to Zyvox at discharge -confirmed alreaday on IV meropenem for Acinetobacter baumannii comple -continue tube feeds at goal -continue usual hydrocortisone/fludrocortisone -continue apixiban -continue clotrimazole and fluconazole. -potassium replacement and follow. -investigate placement options given failure of care in home setting. He will require a solid caregiver plan at discharge. Lengthy discussion with the patient's mother regarding the need for outpatient wound care follow-up to maximize healing of his wound. If they are unable to achieve a reliable caregiver plan he would best be served medically by a long-term care facility. However, in this unfortunate young male patient with advanced CP, multiple comorbidities and completely dependent status, a long-term care facility would not be the optimal place for him emotionally given his tendency to severe depression, and any such placement considerations will need to take this into account. An ethics consult may be in order if there are further challenges regarding placement. Exam Vital Signs (past 8 hours): - 07/15/25 02:04 07/15/25 04:00 07/15/25 04:31 Temperature 99.4 F 99.4 F Pulse Rate Respiratory Rate Blood Pressure Pulse Oximetry 98 Oxygen Delivery Method Trach Collar Oxygen Flow Rate 6 Fraction of Inspired Oxygen 28 07/15/25 04:40 07/15/25 05:07 Temperature Pulse Rate 79 Respiratory Rate 24 Blood Pressure 113/77 Pulse Oximetry 98 98 Oxygen Delivery Method Trach Collar Oxygen Flow Rate 6 Fraction of Inspired Oxygen 28 Fraction of Inspired Oxygen 28 SaO2/FiO2 Ratio 350 Oxygen Delivery Method Trach Collar Oxygen Flow Rate 6 Objective Labs 07/14/25 04:30 07/15/25 09:30 Labs: Laboratory Results - last 24 hr 07/14/25 07/14/25 07/14/25 09:00 11:29 16:51 POC Whole Bld Glucose 81 98 Vancomycin Trough 18.3 07/14/25 07/14/25 07/15/25 23:05 23:07 05:13 POC Whole Bld Glucose 85 86 96 Vancomycin Trough PFSH Medical History Chronic adrenal insufficiency Chronic anticoagulation Iron deficiency anemia History of pulmonary embolism Status post radiation therapy Chronic anticoagulation Tracheostomy in place Sacral decubitus ulcer, stage III Protein calorie malnutrition Hyponatremia Dysphagia Recurrent aspiration pneumonia Depression, major, recurrent Jejunostomy tube present Influenza A Anemia Pneumonia 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 Father No problems noted. Social History marital status: unmarried,single details: Lives independantly with part-time caregivers household members: caregiver lives independently: Yes occupational status: disabled alcohol intake: former substance use type: marijuana Assessment & Plan Time-Based Coding :: [TOTAL MINUTES] spent with patient and on the chart (including review of chart, obtaining history, exam, reviewing outside data, placing orders, documenting exam and treatment plan, and counseling patient) on [DATE].
[2025-07-15 09:54] LABS: Blood Urea Nitrogen 11 mg/dL (9-20); Calcium 8.0 mg/dL (8.4-10.2); Carbon Dioxide 28 mmol/L (22-32); Chloride 100 mmol/L (98-107); Estimated Glomerular Filt Rate > 60 mL/min (>60); Glucose 87 mg/dL (70-99); HEMOLYSIS < 15 (0-50); Potassium 3.9 mmol/L (3.4-5.1); Sodium 134 mmol/L (137-145)
[2025-07-15] MEDS: APIXABAN 5 MG TABLET TUBE ×2 (09:55→20:14)
[2025-07-15] MEDS: BACLOFEN 10 MG TABLET 5 MG PO (09:55)
[2025-07-15] MEDS: VANCOMYCIN TROUGH 1 REQUEST MISC (09:55)
[2025-07-15] MEDS: SERTRALINE 50 MG TABLET 200 MG PO (09:56)
[2025-07-15] MEDS: FLUDROCORTISONE 0.1 MG TABLET PO (09:56)
[2025-07-15] MEDS: HYDROCORTISONE 10 MG TABLET 20 MG PO ×2 (09:56→20:14)
[2025-07-15] MEDS: SODIUM HYPOCHLORITE 473 ML SOLUTION TOP ×2 (09:57→20:29)
[2025-07-15] MEDS: CLOTRIMAZOLE 1% VAG CRM 45 GM 1 APPLIC TOP ×2 (09:57→20:28)
[2025-07-15] MEDS: SODIUM CHLORIDE 0.9% FLUSH 10 ML IV ×2 (10:27→20:28)
[2025-07-15] MEDS: FLUCONAZOLE 100 MG TABLET PO (10:28)
[2025-07-15] MEDS: VANCOMYCIN 1,250 MG/250 ML PIGGYBACK 250 MG IV (10:28)
--- NOTE | 2025-07-15 12:48 | DIET.PN1 ---
Addendum entered by Flakita Hopkins 07/15/25 16:26: Banatrol available now. 2 packets brought to RN. Do not mix with TF formula. Follow packet instructions to administer. Can do 1 tonight and 1 in morning. Original Note: Dietary Progress Note Assessment: F/u. Pt at goal rate but having multiple loose stool daily. No banatrol currently available. Previously with diarrhea on other formulas historically. Other formula available lower in fiber. Spoke to [facility] who report based on formulary delivered, pt should only have a few more days of formula available at home. Called Marianela, mother, and asked when she would likely need another shipment of formula based on what's available at home in anticipation of pt returning home and ensuring formula is available. Marianela reports she only has a few days left of formula. Based on supplies reported, pt likely has been receiving the recommended formula prescription. Coordination with [facility] for delivery of more formula. Formula pt is on at home is IsoSource 1.5 80 mL/hr for 18 hours. Ht: 182.88 cm Wt: 70.307 kg BMI: 20.9 UBW: 72.73 kg Last BM: 07/15/25 (07/15/25 10:30) MNA: 5 Krishan Score: 14 Diet: 07/12/25 Dinner Tube Feeding Diet Diet Modifications: Pending order, only start as directed by surgeon TF Supplement type: Jevity 1.2 saurav TF mode of delivery: Continuous Starting flow rate mL/hr: 10 Flow rate goal mL/hr: 70 Titration Schedule to reach Goal Rate: 10 mL Q8H as tolerated Max total daily volume in mL: 2,200 Free fluid: 80 Free Water Frequency: Q4H Comment: 1 ProSource Protein Packet 1x/day, administer using packet instructions Nutrition Percent Meal Consumed 0% 07/13/25 18:00 Type of Feeding Tube Jejunostomy 07/14/25 21:00 Labs: RBC 2.91 X10^6/uL (4.5-5.9) L 07/14/25 04:30 Hgb 7.8 g/dL (13.5-17.5) L 07/14/25 04:30 Hct 24.2 % (41-53) L 07/14/25 04:30 Creatinine 0.33 mg/dL (0.66-1.25) L 07/15/25 09:30 Lactate 1.1 mmol/L (0.7-2.1) 07/10/25 16:34 NT-Pro-B Natriuret Pep 533 pg/mL (<125) H 07/10/25 16:34 Electronically Signed by: Flakita Hopkins 07/15/25 12:48 Clinical Dietitian [address] [id number]
--- NOTE | 2025-07-15 13:11 | CM.DPC ---
DCP Cont. Reviewed EMR and team rounds for pt's status updates. Reviewed his care plan in depth in team rounds. Pt is close to his baseline, is still on IV antibiotics. Hospitalist is calling the [facility] I&D doctore today to consult on which oral antibiotic pt should d/c with. APS air conditioning service technician, Rae , came today and met with this CLINICAL PRACTICE CONSULTANT. Provided clinicals and wound care photos to support the concerns re: his care needs at home. She will review and call us back with next steps.
--- NOTE | 2025-07-15 18:44 | PC.NURSE ---
Day shift: Pt A&Ox3, unsure of date. Able to speak with speaking valve over trach. Frequent loose watery stools. Able to use call light for assistance. APS criminal investigator customs Rae spoke with pt, social work, and this RN. APS agent stated to this RN that the patient's discharge plan of discharge home tomorrow (07/16) was unsafe due to lack of night time caregivers. She also stated she would call patient's mother to clarify if pt has night time caregivers. APS criminal investigator customs referred to [employer]MER. Care ongoing.
[2025-07-15] MEDS: VANCOMYCIN 1,000 MG/200 ML PIGGYBACK 200 MG IV (20:14)
[2025-07-16 01:49] VITALS: O2SAT 98
[2025-07-16] MEDS: MIDODRINE HCL 5 MG TABLET TUBE ×6 (02:08→21:06)
[2025-07-16] MEDS: MEROPENEM 1 GM in SODIUM CHLORIDE 0.9% 100 ML IV ×3 (02:08→17:52)
[2025-07-16 03:00] VITALS: BP 100/71; PULSE 73; RESP 18; TEMP 37.3; O2SAT 97
[2025-07-16 05:18] LABS: Add Manual Diff / Slide Review NO; Hematocrit 27.0 % (41-53); Hemoglobin 9.1 g/dL (13.5-17.5); Lymphocytes Absolute Auto 700 /uL (1100-4500); Mean Corpuscular HGB Conc 33.6 % (30-36); Mean Corpuscular Hemoglobin 27.6 PG (26-34); Mean Corpuscular Volume 82.1 fL (80-100); Platelet Count 329 X10^3/uL (150-400)
[2025-07-16 05:33] LABS: Alanine Aminotransferase 59 IU/L (<50); Albumin 2.9 g/dL (3.5-5.0); Albumin Globulin Ratio 0.9 (1.0-2.8); Alkaline Phosphatase 92 U/L (38-126); Blood Urea Nitrogen 13 mg/dL (9-20); Calcium 7.9 mg/dL (8.4-10.2); Carbon Dioxide 30 mmol/L (22-32); Chloride 100 mmol/L (98-107); Estimated Glomerular Filt Rate > 60 mL/min (>60); Globulin 3.1 g/dL (1.7-4.1); Glucose 97 mg/dL (70-99); HEMOLYSIS < 15 (0-50); Potassium 3.9 mmol/L (3.4-5.1); Sodium 133 mmol/L (137-145); Total Protein 6.0 g/dL (6.3-8.2)
--- NOTE | 2025-07-16 08:35 | PM.PN.1 ---
Subjective Subjective Interval history: The patient is a 45 yo with severe CP, spastic hemiplegia, adrenal insullicency, with tracheostomy, decubitus stage III on the sacrum, wheelchair bound with a hx of G tube that fell out and caused peritonitis in April of this year at [facility] who has been living with his mother but he lost his current J-tube today. S: 07/13: His jejunal tube was placed in the operating room on 07/12. He is doing well, denies pain. He is sad and tearful today. Sertraline was just started. Attempted PICC was unsuccessful. Tube feeds were advanced to 30 mL/hour. 07/14: Tube feeds are up to 70 mL/hour. He is feeling better, less emotional. Care was reviewed in detail with the patient's mother yesterday. The patient has a new caregiver and apparently found his tube had become dislodged at home. They are not sure how that happened. The patient's mother is very frustrated about this. She states that she thinks that they have the caregiver situation in place presently. Sacral wound culture shows MRSA and unidentified Gram-negative bacillus, culture pending. 07/15: His wound culture is now growing: Acinetobacter baumannii comple along with the MRSA. He is penicillin allergic. Meropenem is the only other sensitivity reported. His foot rashes a lot better, responding to the antifungal. The potassium is 3.0 so 40 mEq of potassium chloride was given. Subsequently it is 3.9. The hemoglobin is 7.8. 07/16: He has now been [facility] at 1:15 p.m.. He will be on meropenem 1 g q.8 hours until 07/20. He will be on Zyvox 600 mg b.i.d. until 07/23. Once those have been set up he will be discharged home tomorrow. The hemoglobin today is 9.1. The white blood count is 5.8. The BNP is normal. O: NAD, alert and calm. His only response to my attempts to communicate are grunting. Chronically ill in appearance, cachectic. He was a tracheostomy in place. Neck supple, midline trachea, no adenopathy. Lungs clear, normal rate and effort. Heart regular, no murmur gallop or rub. Abdomen is soft, non distended and non tender. Extremities are free of edema. Skin is notable for 3.5 x 3.5 cm sacral stage 3-4 decubitus photo in chart. Tinea pedis appears improved. Joints are deformed. IMAGING: CTA P: No bowel obstruction. A tract is seen from the prior jejunostomy, without fluid collection in the region. Chronic left lower lung opacity with bronchiectasis. Trace adjacent effusion Moderate colorectal fecal loading Other findings above No significant changes from the preliminary report. Abdomen ultrasound: Limited study demonstrating a liver that is prominent in size, yet with normal echogenicity. No focal liver lesions are seen. Chest x-ray: Potential interval worsening of a process in the left hemithorax. There is chronic volume loss and opacity. There is a suggestion of possible development of basilar atelectasis and pleural fluid. A/P: 1. Cerebral Palsy with malnutrition- J-tube replaced on 07/12. Tube feeds now at max/standard home dosing. 2. Adrenal Insufficiency- continue home fludrocortisone and hydrocortisone 3. Chronic respiratory failure- CXR reviewed, resolved to baseline. 4. Stage 3-4 sacral decubitus culturing MRSA, consistent with infected sacral decubitus. Acinetobacter baumannii comple also cultured. Limited sensitivities available. 5. PE, stable. Continue apixiban. 6. Elevated LFT's, resolved, likely reactive. 7. Severe protein caloric malnutrition with BMI of 21 and evidence of diffuse muscle wasting. 8. Chronic left lung pneumonia, active. 9. Chronic sacral decubitus, at least stage III. 10. Hypokalemia 11. Tinea Pedis PLAN: -continue IV vancomycin for MRSA coverage, plan to switch to Zyvox at discharge, to complete at home on 07/23 for a total of 7 days. -confirmed alreaday on IV meropenem for Acinetobacter baumannii comple, plan to complete at home on 07/20 for a total of 7 days. -continue tube feeds at goal -continue usual hydrocortisone/fludrocortisone -continue apixiban -continue clotrimazole and fluconazole. -potassium replacement and follow. -investigate placement options given failure of care in home setting. He will require a solid caregiver plan at discharge. Lengthy discussion with the patient's mother regarding the need for outpatient wound care follow-up to maximize healing of his wound. If they are unable to achieve a reliable caregiver plan he would best be served medically by a long-term care facility. However, in this unfortunate young male patient with advanced CP, multiple comorbidities and completely dependent status, a long-term care facility would not be the optimal place for him emotionally given his tendency to severe depression, and any such placement considerations will need to take this into account. An ethics consult may be in order if there are further challenges regarding placement. Discharge plans: Returning home 07/16 with [facility] to provide completion of IV meropenem, tube feeds and with instructions to follow up at [facility] on Monday 07/23 at 1:15 p.m.. Exam Vital Signs (past 8 hours): - 07/16/25 01:49 07/16/25 03:00 Temperature 99.1 F Pulse Rate 73 Respiratory Rate 18 Blood Pressure 100/71 Pulse Oximetry 98 97 Oxygen Delivery Method Trach Collar Oxygen Flow Rate 6 Fraction of Inspired Oxygen 21 Fraction of Inspired Oxygen 21 SaO2/FiO2 Ratio 466 Oxygen Delivery Method Trach Collar Oxygen Flow Rate 6 Objective Labs 07/16/25 04:55 07/16/25 04:55 Labs: Laboratory Results - last 24 hr 07/15/25 07/15/25 07/16/25 09:30 14:28 04:55 WBC 5.8 RBC 3.29 L Hgb 9.1 L Hct 27.0 L MCV 82.1 MCH 27.6 MCHC 33.6 RDW 18.9 H Plt Count 329 Neut % (Auto) 75.1 H Lymph % (Auto) 12.5 L [place] % (Auto) 9.3 Eos % (Auto) 2.3 Baso % (Auto) 0.8 Neut # (Auto) 4400 Lymph # (Auto) 700 L [place] # (Auto) 500 Eos # (Auto) 100 Baso # (Auto) 0 Sodium 134 L 133 L Potassium 3.9 3.9 Chloride 100 100 Carbon Dioxide 28 30 BUN 11 13 Creatinine 0.33 L 0.33 L Estimated GFR > 60 > 60 BUN/Creatinine Ratio 33.3 H 39.4 H Glucose 87 97 POC Whole Bld Glucose 90 Calcium 8.0 L 7.9 L Total Bilirubin < 0.1 L AST 51 ALT 59 H Alkaline Phosphatase 92 Total Protein 6.0 L Albumin 2.9 L Globulin 3.1 Albumin/Globulin Ratio 0.9 L Vancomycin Trough 17.6 PFSH Medical History Chronic adrenal insufficiency Chronic anticoagulation Iron deficiency anemia History of pulmonary embolism Status post radiation therapy Chronic anticoagulation Tracheostomy in place Sacral decubitus ulcer, stage III Protein calorie malnutrition Hyponatremia Dysphagia Recurrent aspiration pneumonia Depression, major, recurrent Jejunostomy tube present Influenza A Anemia Pneumonia 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 Father No problems noted. Social History marital status: unmarried,single details: Lives independantly with part-time caregivers household members: caregiver lives independently: Yes occupational status: disabled alcohol intake: former substance use type: marijuana Assessment & Plan Time-Based Coding :: [TOTAL MINUTES] spent with patient and on the chart (including review of chart, obtaining history, exam, reviewing outside data, placing orders, documenting exam and treatment plan, and counseling patient) on [DATE].
[2025-07-16] MEDS: VANCOMYCIN 1,000 MG/200 ML PIGGYBACK 200 MG IV ×2 (08:51→21:13)
[2025-07-16] MEDS: SODIUM CHLORIDE 0.9% FLUSH 10 ML IV ×2 (08:51→21:07)
--- NOTE | 2025-07-16 09:35 | DIET.PN1 ---
Dietary Progress Note Assessment: f/u Spoke to RN. Pt continues at 70 ml/hr of Jevity 1.2. 1 Banatrol delivered yesterday and 1 delivered overnight. Will continue to monitor. If d/c back home return to home formula plan managed by [facility] of: Continuous IsoSource 1.5 via J-tube at 80 ml/hr for 18 hours and flushes per instructed. Ht: 182.88 cm Wt: 70.307 kg BMI: 20.9 Last BM: 07/16/25 (07/16/25 06:00) MNA: 5 Krishan Score: 12 Diet: 07/12/25 Dinner Tube Feeding Diet Diet Modifications: Pending order, only start as directed by surgeon TF Supplement type: Jevity 1.2 saurav TF mode of delivery: Continuous Starting flow rate mL/hr: 10 Flow rate goal mL/hr: 70 Titration Schedule to reach Goal Rate: 10 mL Q8H as tolerated Max total daily volume in mL: 2,200 Free fluid: 80 Free Water Frequency: Q4H Comment: 1 ProSource Protein Packet 1x/day, administer using packet instructions Nutrition Type of Feeding Tube Jejunostomy 07/14/25 21:00 Labs: RBC 3.29 X10^6/uL (4.5-5.9) L 07/16/25 04:55 Hgb 9.1 g/dL (13.5-17.5) L 07/16/25 04:55 Hct 27.0 % (41-53) L 07/16/25 04:55 Creatinine 0.33 mg/dL (0.66-1.25) L 07/16/25 04:55 Lactate 1.1 mmol/L (0.7-2.1) 07/10/25 16:34 NT-Pro-B Natriuret Pep 533 pg/mL (<125) H 07/10/25 16:34 Electronically Signed by: Flakita Hopkins 07/16/25 09:35 Clinical Dietitian [address] [address]
[2025-07-16] MEDS: HYDROCORTISONE 10 MG TABLET 20 MG PO ×2 (09:55→21:06)
[2025-07-16] MEDS: FLUDROCORTISONE 0.1 MG TABLET PO (09:55)
[2025-07-16] MEDS: BACLOFEN 10 MG TABLET 5 MG PO (09:55)
[2025-07-16] MEDS: FLUCONAZOLE 100 MG TABLET PO (09:56)
[2025-07-16] MEDS: APIXABAN 5 MG TABLET TUBE ×2 (09:56→21:06)
[2025-07-16] MEDS: SERTRALINE 50 MG TABLET 200 MG PO (09:56)
[2025-07-16] MEDS: CLOTRIMAZOLE 1% VAG CRM 45 GM 1 APPLIC TOP ×2 (09:57→21:32)
[2025-07-16] MEDS: SODIUM HYPOCHLORITE 473 ML SOLUTION TOP ×2 (09:57→21:33)
[2025-07-16 11:30] VITALS: RESP 16; O2SAT 100
[2025-07-16 14:47] VITALS: O2SAT 100
--- NOTE | 2025-07-16 16:20 | CM.DPNOTE ---
DCP Continued: Reviewed EMR and team rounds for pt?s medical status. Per Provider, pt would like to discharge home as soon as possible. Per RN Coordinator, Pt has a wound care clinic appt on 07/23 at 1315. [employer] CLERK called APS investigator utility bill complaints, Rae , and left a voice message - pending APS investigation decision about guardianship and safe disposition. [employer] CLERK initiated conversation with [facility] - will need new IV antibiotic orders. Form initiated, will need MD signature. Plan: Anticipating discharge home pending APS guardianship and coordination with [facility] for tube feeding and IV abx. CM Team will continue to follow for coordination of discharge plans. ERIK Sadler
[2025-07-16 19:00] VITALS: O2SAT 94
[2025-07-16 20:53] VITALS: BP 105/68; PULSE 72; RESP 18; TEMP 36.9; O2SAT 96
[2025-07-17] VITALS (9 sets, daily range): BP systolic 93–110; BP diastolic 53–77; PULSE 69–78; RESP 16–22; TEMP 36.1–36.7; O2SAT 96–98
[2025-07-17] MEDS: MIDODRINE HCL 5 MG TABLET TUBE ×6 (02:13→21:24)
[2025-07-17] MEDS: MEROPENEM 1 GM in SODIUM CHLORIDE 0.9% 100 ML IV ×3 (02:14→17:33)
[2025-07-17] MEDS: SCOPOLAMINE 1 PATCH TOP (02:16)
--- NOTE | 2025-07-17 09:13 | P.PN_ITS ---
Subjective Subjective Date Patient Seen: 07/17/25 Interval history: Chief complaint: Dislodged failed jejunostomy tube, progressive pressure ulcers with infection History of present illness: 07/11: 45 yo with severe CP, spastic hemiplegia, adrenal insullicency, with tracheostomy, decubitus stage III on the sacrum, wheelchair bound with a hx of G tube that fell out and caused peritonitis in April of this year at [facility] who has been living with his mother but he lost his current J-tube today. 07/12: Operative report: The patient was brought to the operating room and monitored anesthesia was induced. After a time-out was performed a well lubricated ureteral scope was inserted into the old jejunostomy tract. Once jejunal villi were seen the 0.035 soft tip Glidewire was inserted into the jejunum under direct vision. The wire was stabilized and the ureteral scope was removed over the wire. Next a 14 Moroc[place] red rubber catheter was chosen. The tip was cut off so that it would be able to slide over the wire. Lubrication was applied to the tip and the catheter was advanced into the jejunum over the wire. The wire was then removed. A small volume of Gastrografin was injected into the jejunum through the jejunostomy tube and fluoroscopy was used to confirm that the tip of the jejunostomy tube was within the lumen of the bowel and there was no obvious extravasation. 07/13: His jejunal tube was placed in the operating room on 07/12. He is doing well, denies pain. He is sad and tearful today. Sertraline was just started. Attempted PICC was unsuccessful. Tube feeds were advanced to 30 mL/hour. 07/14: Tube feeds are up to 70 mL/hour. He is feeling better, less emotional. Care was reviewed in detail with the patient's mother yesterday. The patient has a new caregiver and apparently found his tube had become dislodged at home. They are not sure how that happened. The patient's mother is very frustrated about this. She states that she thinks that they have the caregiver situation in place presently. Sacral wound culture shows MRSA and unidentified Gram- negative bacillus, culture pending. 07/15: His wound culture is now growing: Acinetobacter baumannii comple along with the MRSA. He is penicillin allergic. Meropenem is the only other sensitivity reported. His foot rashes a lot better, responding to the antifungal. The potassium is 3.0 so 40 mEq of potassium chloride was given. Subsequently it is 3.9. The hemoglobin is 7.8. 07/16: He has now been scheduled [facility] an [facility] July 23 at 1:15 p.m.. He will be on meropenem 1 g q.8 hours until 07/20. He will be on Zyvox 600 mg b.i.d. until 07/23. Once those have been set up he will be discharged home tomorrow. The hemoglobin today is 9.1. The white blood count is 5.8. The BNP is normal. 07/17: Appointment has been set up for wound care. Arranging through discharge planning to start meropenem 1 g IV q.8 hours until 07/20. Methicillin Resis Staph Aureus M.I.C. RX --------- --- * Daptomycin 1 S * Vancomycin 1 S * Ciprofloxacin >=8 R * Doxycycline <=0.5 S * Erythromycin >=8 R * Gentamicin <=0.5 S * Levofloxacin >=8 R * Linezolid 2 S * Moxifloxacin 4 R * Oxacillin Ap >=4 R * Rifampin <=0.5 S * Tetracycline <=1 S * Trimethoprim/Sulfamethoxazole <=10 S 2. Acinetobacter baumannii comple M.I.C. RX --------- --- * Cefepime E-test 8 I * Ceftazidime 16 I * Meropenem 1 S * Piperacillin/Tazobactam 16 S Review of systems: No fevers chills rigors No chest pain shortness for breath No abdominal pain vomiting No urinary symptoms Physical exam: Alert no acute distress and is conversant HEENT: Dry oropharynx Neck supple, midline trachea, no adenopathy. Lungs clear, normal rate and effort. Heart regular, no murmur gallop or rub. Abdomen is soft, non distended and non tender. Extremities are free of edema. Skin is notable for 3.5 x 3.5 cm sacral stage 3-4 decubitus photo in chart. Tinea pedis appears improved. Joints are deformed. Assessment and plan: Cerebral Palsy with malnutrition- J-tube replaced on 07/12. Tube feeds now at max/standard home dosing. * Continue at home Adrenal Insufficiency- * Continue home fludrocortisone and hydrocortisone Chronic respiratory failure- * CXR reviewed, resolved to baseline. Stage 3-4 sacral decubitus culturing MRSA, consistent with infected sacral decubitus. * Acinetobacter baumannii comple also cultured. PE, stable. * Continue apixiban. Elevated LFT's, * Resolved, likely reactive. Tinea Pedis * Responding to topical treatment and systemic Diflucan Chronic left lung pneumonia, active. * Strict NPO except: * Mcclellan free water protocol * Oral care Chronic sacral decubitus, at least stage III. * Oral Zyvox and IV meropenem * Patient requiring IV meropenem for Acinetobacter baumannii complex through 07/23 * P.o. Zyvox through 07/20 * Hold sertraline while on Zyvox (3 days) Severe protein caloric malnutrition with BMI of 21 and evidence of diffuse muscle wasting. * Patient requiring enteral nutrition via jejunostomy feeding tube due to a functional impairment of the gastrointestinal tract secondary to dysphagia and aspiration. Enteral nutrition will be required for > 90 days and will provide the majority of the patient's nutrition. * [facility] to manage tube feedings * Outpatient managing provider is Dr. Chucky Marshall. Disposition: * -investigate placement options given failure of care in home setting. He will require a solid caregiver plan at discharge. Lengthy discussion with the patient's mother regarding the need for outpatient wound care follow-up to maximize healing of his wound. If they are unable to achieve a reliable caregiver plan he would best be served medically by a long-term care facility. However, in this unfortunate young male patient with advanced CP, multiple comorbidities and completely dependent status, a long-term care facility would not be the optimal place for him emotionally given his tendency to severe depression, and any such placement considerations will need to take this into account. An ethics consult may be in order if there are further challenges regarding placement. Discharge plans: * Returning home 07/17 with [facility] to provide completion of IV meropenem, tube feeds and with instructions to follow up at wound care center on Tuesday Time based billing * Greater than 35 minutes were involved in discharge of this patient including [id number] evaluation review of records charts making arrangements for home IV infusions prescriptions and discussion with caregivers Exam Vital Signs (past 8 hours): - 07/17/25 05:00 07/17/25 08:20 Pulse Rate 69 77 Respiratory Rate 18 16 Blood Pressure 93/53 L Pulse Oximetry 97 98 Oxygen Delivery Method Trach Collar Oxygen Flow Rate 0 6 Fraction of Inspired Oxygen 21 Fraction of Inspired Oxygen 21 SaO2/FiO2 Ratio 466 Oxygen Delivery Method Trach Collar Oxygen Flow Rate 6 Objective Labs 07/16/25 04:55 07/16/25 04:55 Labs: Laboratory Results - last 24 hr 07/16/25 07/16/25 07/17/25 11:58 18:57 04:36 POC Whole Bld Glucose 88 96 101 H 07/17/25 06:24 POC Whole Bld Glucose 87 PFSH Medical History Chronic adrenal insufficiency Chronic anticoagulation Iron deficiency anemia History of pulmonary embolism Status post radiation therapy Chronic anticoagulation Tracheostomy in place Sacral decubitus ulcer, stage III Protein calorie malnutrition Hyponatremia Dysphagia Recurrent aspiration pneumonia Depression, major, recurrent Jejunostomy tube present Influenza A Anemia Pneumonia 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 Father No problems noted. Social History marital status: unmarried,single details: Lives independantly with part-time caregivers household members: caregiver lives independently: Yes occupational status: disabled alcohol intake: former substance use type: marijuana Assessment & Plan Time-Based Coding :: [TOTAL MINUTES] spent with patient and on the chart (including review of chart, obtaining history, exam, reviewing outside data, placing orders, documenting exam and treatment plan, and counseling patient) on [DATE].
[2025-07-17] MEDS: SERTRALINE 50 MG TABLET 200 MG PO (09:22)
[2025-07-17] MEDS: FLUCONAZOLE 100 MG TABLET PO (09:22)
[2025-07-17] MEDS: HYDROCORTISONE 10 MG TABLET 20 MG PO ×2 (09:22→21:24)
[2025-07-17] MEDS: FLUDROCORTISONE 0.1 MG TABLET PO (09:22)
[2025-07-17] MEDS: BACLOFEN 10 MG TABLET 5 MG PO (09:22)
[2025-07-17] MEDS: CLOTRIMAZOLE 1% VAG CRM 45 GM 1 APPLIC TOP ×2 (09:23→21:57)
[2025-07-17] MEDS: APIXABAN 5 MG TABLET TUBE ×2 (09:24→21:24)
[2025-07-17] MEDS: SODIUM HYPOCHLORITE 473 ML SOLUTION TOP ×2 (09:24→21:58)
[2025-07-17] MEDS: SODIUM CHLORIDE 0.9% FLUSH 10 ML IV (09:24)
[2025-07-17] MEDS: VANCOMYCIN 1,000 MG/200 ML PIGGYBACK 200 MG IV (09:29)
--- NOTE | 2025-07-17 10:33 | P.DS_ITS ---
History of Present Illness History of Present Illness Date Patient Seen: 07/17/25 Chief complaint: feeding tube displaced, blood in trach solution Narrative: Chief complaint: Dislodged failed jejunostomy tube, progressive pressure ulcers with infection History of present illness: 07/11: 45 yo with severe CP, spastic hemiplegia, adrenal insullicency, with tracheostomy, decubitus stage III on the sacrum, wheelchair bound with a hx of G tube that fell out and caused peritonitis in April of this year at [facility] who has been living with his mother but he lost his current J-tube today. 07/12: Operative report: The patient was brought to the operating room and monitored anesthesia was induced. After a time-out was performed a well lubricated ureteral scope was inserted into the old jejunostomy tract. Once jejunal villi were seen the 0.035 soft tip Glidewire was inserted into the jejunum under direct vision. The wire was stabilized and the ureteral scope was removed over the wire. Next a 14 German red rubber catheter was chosen. The tip was cut off so that it would be able to slide over the wire. Lubrication was applied to the tip and the catheter was advanced into the jejunum over the wire. The wire was then removed. A small volume of Gastrografin was injected into the jejunum through the jejunostomy tube and fluoroscopy was used to confirm that the tip of the jejunostomy tube was within the lumen of the bowel and there was no obvious extravasation. 07/13: His jejunal tube was placed in the operating room on 07/12. He is doing well, denies pain. He is sad and tearful today. Sertraline was just started. Attempted PICC was unsuccessful. Tube feeds were advanced to 30 mL/hour. 07/14: Tube feeds are up to 70 mL/hour. He is feeling better, less emotional. Care was reviewed in detail with the patient's mother yesterday. The patient has a new caregiver and apparently found his tube had become dislodged at home. They are not sure how that happened. The patient's mother is very frustrated about this. She states that she thinks that they have the caregiver situation in place presently. Sacral wound culture shows MRSA and unidentified Gram- negative bacillus, culture pending. 07/15: His wound culture is now growing: Acinetobacter baumannii comple along with the MRSA. He is penicillin allergic. Meropenem is the only other sensitivity reported. His foot rashes a lot better, responding to the antifungal. The potassium is 3.0 so 40 mEq of potassium chloride was given. Subsequently it is 3.9. The hemoglobin is 7.8. 07/16: He has now been [facility] on July 23 at 1:15 p.m.. He will be on meropenem 1 g q.8 hours until 07/20. He will be on Zyvox 600 mg b.i.d. until 07/23. Once those have been set up he will be discharged home tomorrow. The hemoglobin today is 9.1. The white blood count is 5.8. The BNP is normal. 07/17: Appointment has been set up for wound care. Arranging through discharge planning to start meropenem 1 g IV q.8 hours until 07/20. Methicillin Resis Staph Aureus M.I.C. RX --------- --- * Daptomycin 1 S * Vancomycin 1 S * Ciprofloxacin >=8 R * Doxycycline <=0.5 S * Erythromycin >=8 R * Gentamicin <=0.5 S * Levofloxacin >=8 R * Linezolid 2 S * Moxifloxacin 4 R * Oxacillin Ap >=4 R * Rifampin <=0.5 S * Tetracycline <=1 S * Trimethoprim/Sulfamethoxazole <=10 S 2. Acinetobacter baumannii comple M.I.C. RX --------- --- * Cefepime E-test 8 I * Ceftazidime 16 I * Meropenem 1 S * Piperacillin/Tazobactam 16 S Review of systems: No fevers chills rigors No chest pain shortness for breath No abdominal pain vomiting No urinary symptoms Physical exam: Alert no acute distress and is conversant HEENT: Dry oropharynx Neck supple, midline trachea, no adenopathy. Lungs clear, normal rate and effort. Heart regular, no murmur gallop or rub. Abdomen is soft, non distended and non tender. Extremities are free of edema. Skin is notable for 3.5 x 3.5 cm sacral stage 3-4 decubitus photo in chart. Tinea pedis appears improved. Joints are deformed. Assessment and plan: Cerebral Palsy with malnutrition- J-tube replaced on 07/12. Tube feeds now at max/standard home dosing. * Continue at home Adrenal Insufficiency- * Continue home fludrocortisone and hydrocortisone Chronic respiratory failure- * CXR reviewed, resolved to baseline. Stage 3-4 sacral decubitus culturing MRSA, consistent with infected sacral decubitus. * Acinetobacter baumannii comple also cultured. PE, stable. * Continue apixiban. Elevated LFT's, * Resolved, likely reactive. Tinea Pedis * Responding to topical treatment and systemic Diflucan Chronic left lung pneumonia, active. * Strict NPO except: * Mcclellan free water protocol * Oral care Chronic sacral decubitus, at least stage III. * Oral Zyvox and IV meropenem * Patient requiring IV meropenem for Acinetobacter baumannii complex through 07/23 * P.o. Zyvox through 07/20 * Hold sertraline while on Zyvox (3 days) Severe protein caloric malnutrition with BMI of 21 and evidence of diffuse muscle wasting. * Patient requiring enteral nutrition via jejunostomy feeding tube due to a functional impairment of the gastrointestinal tract secondary to dysphagia and aspiration. Enteral nutrition will be required for > 90 days and will provide the majority of the patient's nutrition. * [facility] to manage tube feedings * Outpatient managing provider is Dr. Chucky Marshall. Disposition: * -investigate placement options given failure of care in home setting. He will require a solid caregiver plan at discharge. Lengthy discussion with the patient's mother regarding the need for outpatient wound care follow-up to maximize healing of his wound. If they are unable to achieve a reliable caregiver plan he would best be served medically by a long-term care facility. However, in this unfortunate young male patient with advanced CP, multiple comorbidities and completely dependent status, a long-term care facility would not be the optimal place for him emotionally given his tendency to severe depression, and any such placement considerations will need to take this into account. An ethics consult may be in order if there are further challenges regarding placement. Discharge plans: * Returning home 07/17 with [facility] to provide completion of IV meropenem, tube feeds and with instructions to follow up at wound care center on Tuesday Time based billing * Greater than 35 minutes were involved in discharge of this patient including [id number] evaluation review of records charts making arrangements for home IV infusions prescriptions and discussion with caregivers Discharge Providers Provider Date of admission: 07/11/25 02:44 Discharge Date: 07/17/25 Primary care physician: Chucky Marshall MD Consults: 07/11/25 03:01 Consult to Physician Routine Comment: Consulting Provider: Alen Naqvi Reason for consultation: lost J tube Has provider been notified: Yes 07/11/25 08:39 Consult to Dietitian, Adult Routine Comment: Reason For Exam: J tube dislodged 07/12/25 10:06 Consult to Dietitian, Adult Routine Comment: Reason For Exam: tube fed adult Consult to Wound Care Routine Comment: Consulting Provider: [facility] Discharge provider: Gordo Russell MD Exam Vital Signs (past 8 hours): - 07/17/25 05:00 07/17/25 08:20 Pulse Rate 69 77 Respiratory Rate 18 16 Blood Pressure 93/53 L Pulse Oximetry 97 98 Oxygen Delivery Method Trach Collar Oxygen Flow Rate 0 6 Fraction of Inspired Oxygen 21 Fraction of Inspired Oxygen 21 SaO2/FiO2 Ratio 466 Oxygen Delivery Method Trach Collar Oxygen Flow Rate 6 Objective Labs 07/16/25 04:55 07/16/25 04:55 Labs: Laboratory Results - last 24 hr 07/16/25 07/16/25 07/17/25 11:58 18:57 04:36 POC Whole Bld Glucose 88 96 101 H Vancomycin Trough 07/17/25 07/17/25 06:24 08:40 POC Whole Bld Glucose 87 Vancomycin Trough 19.3 PFSH Medical History Chronic adrenal insufficiency Chronic anticoagulation Iron deficiency anemia History of pulmonary embolism Status post radiation therapy Chronic anticoagulation Tracheostomy in place Sacral decubitus ulcer, stage III Protein calorie malnutrition Hyponatremia Dysphagia Recurrent aspiration pneumonia Depression, major, recurrent Jejunostomy tube present Influenza A Anemia Pneumonia 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 Father No problems noted. Social History marital status: unmarried,single details: Lives independantly with part-time caregivers household members: caregiver lives independently: Yes occupational status: disabled alcohol intake: former substance use type: marijuana Discharge Plan Discharge Plan Patient Disposition: Home Discharge orders & Medications Prescriptions: New fluconazole 100 mg Tablet 100 mg PO DAILY Qty: 7 0RF meropenem 1 gram recon soln 1 g IV Q8H 7 Days linezolid [Zyvox] 600 mg tablet 600 mg PO BID Qty: 7 0RF Continued (DME) XL mattress for semi-electric hospital bed See Rx Instructions .Route .MEDSUPPLY Qty: 1 0RF Rx Instructions: use daily as directed (DME) Disabled Parking Qty: 1 0RF Rx Instructions: I find this patient to be medically disabled and qualified for Disabled Parking as indicated, and signed, on the Accompanying Disabled Parking Application for Individuals ferrous sulfate 325 mg (65 mg iron) tablet 130 mg PO DAILY baclofen 5 mg/5 mL solution 5 mg PO DAILY Qty: 473 3RF Rx Instructions: Give 5mL via J-tube (DME) Battery Powered Lift Qty: 1 0RF Dose Instruction: As directed Rx Instructions: Use daily as directed for transfers to and from bed (DME) Power Chair tall Qty: 1 0RF Dose Instruction: As directed Rx Instructions: As directed for patient care with activities of daily living. Chair needs to tilt foreword and tilt backwards for patient care. Pt is 6 feet tall and will need to fit height. (DME) Shower Chair Qty: 1 0RF Rx Instructions: As directed for patient care with activities of daily living. Chair needs to tilt foreword and tilt backwards for patient care. Pt is 6 feet tall and will need to fit height. (DME) Semi-electric hospital bed Qty: 1 0RF Dose Instruction: As directed Rx Instructions: Semi-electric hospital bed to permit transfers to wheelchair and to attach traction equipment. Must be large enough and long enough to accommodate his height and weight. EDEN: 99 months (DME) Mattress See Rx Instructions .Route .MEDSUPPLY Qty: 1 0RF Rx Instructions: Long mattress for hospital bed Eliquis 5 mg tablet 5 mg PO BID Qty: 60 12RF folic acid 1 mg tablet 1 mg PO DAILY Qty: 90 3RF (DME) Lingraphica Communication Device See Rx Instructions .Route .MEDSUPPLY Qty: 1 0RF Rx Instructions: Evaluation for speech generating device. See online submission form for free trial of device. scopolamine base 1 mg over 3 days patch 3 day 1 patch topical Q3D Qty: 24 1RF sodium chloride 0.9 % solution for nebulization 2.5 ml inhalation Q12H PRN (Reason: shortness of breath or wheezing) Qty: 300 0RF (DME) suction catheter kit See Rx Instructions .Route .MEDSUPPLY Qty: 5 4RF Rx Instructions: Mya suction catheter (or equivalent) equipement and disposable. [employer] DME supply sertraline 100 mg tablet 200 mg PO DAILY Qty: 60 2RF Banatrol Plus Powder In Packet 1 ea PO 4XD Qty: 450 3RF lansoprazole 30 mg capsule,delayed release(DR/EC) 30 mg PO BID Qty: 60 1RF levofloxacin 750 mg tablet 750 mg PO DAILY Qty: 6 0RF Rx Instructions: take one tab daily for 6 days potassium chloride 20 mEq/15 mL liquid 20 meq PO DAILY Qty: 500 1RF (DME) Disposable Cannula for Trach size XLT, 60xltin, 6.0MMID, Schiley brand, inner cannula See Rx Instructions .Route .MEDSUPPLY Qty: 1 3RF Rx Instructions: As directed (DME) BD Luer-Rafael Syringe 3 mL 20 gauge x 1 syringe See Rx Instructions .ROUTE .MEDSUPPLY Qty: 1 Patient Comments: USE FOR MUCOMYST Rx Instructions: As directed Glucagon Emergency Kit (human) 1 mg recon soln 1 mg IM ONCE (DME) blood-glucose meter [True Metrix Air Glucose Meter] [facility] See Rx Instructions .ROUTE DAILY Qty: 1 Rx Instructions: As directed zinc oxide-cod liver oil Ointment topical PRN PRN (Reason: skin irritation) Patient Comments: Desitin Topical Ointment. vitamin A and D Ointment 1 applic topical 6XD PRN (Reason: wound care) midodrine 5 mg Tablet 5 mg TUBE Q4HR Qty: 100 0RF oxycodone 5 mg/5 mL Solution 5 mg TUBE Q4HR PRN (Reason: Pain, Moderate (4-6)) Qty: 60 0RF hydrocortisone [Cortef] 10 mg Tablet 20 mg PO BID Qty: 120 0RF fludrocortisone 0.1 mg Tablet 0.1 mg PO DAILY Qty: 100 0RF Dakin's Solution 0.125 % Solution 1 ml topical BID Qty: 100 0RF Follow up/Referrals: Chucky Marshall MD [Primary Care Provider, Internal Medicine] Skin/Wound/Dressing Care Other wound treatment: Appt scheduled with Wound care clinic 07/23/25 at 1:15pm Visit Report/Discharge Packet Stand Alone Forms: Patient Portal/API, Stroke Signs & Symptoms Discharge Data Primary Care Provider: Chucky Marshall V
--- NOTE | 2025-07-17 10:42 | PC.RNWOUND ---
New wound care photos from 07/16/25 due to pt scratching his buttock area to bleeding with shallow scratches, see photos in chart dated 07/17/25
[2025-07-17] MEDS: VANCOMYCIN 750 MG/150 ML PIGGYBACK 150 MG IV (21:35)
[2025-07-18] MEDS: MIDODRINE HCL 5 MG TABLET TUBE ×6 (02:56→21:51)
[2025-07-18] MEDS: MEROPENEM 1 GM in SODIUM CHLORIDE 0.9% 100 ML IV ×3 (02:56→18:28)
[2025-07-18] MEDS: SODIUM CHLORIDE 0.9% FLUSH 10 ML IV ×3 (02:58→21:52)
[2025-07-18 07:00] VITALS: O2SAT 96
[2025-07-18 08:24] VITALS: BP 82/55; PULSE 85; RESP 15; TEMP 36.4; O2SAT 96
[2025-07-18 09:37] VITALS: O2SAT 96
[2025-07-18] MEDS: VANCOMYCIN 750 MG/150 ML PIGGYBACK 150 MG IV ×2 (10:32→21:51)
[2025-07-18] MEDS: FLUDROCORTISONE 0.1 MG TABLET PO (10:32)
[2025-07-18] MEDS: APIXABAN 5 MG TABLET TUBE ×2 (10:33→21:51)
[2025-07-18] MEDS: HYDROCORTISONE 10 MG TABLET 20 MG PO ×2 (10:33→21:51)
[2025-07-18] MEDS: SERTRALINE 50 MG TABLET 200 MG PO (10:34)
[2025-07-18] MEDS: BACLOFEN 10 MG TABLET 5 MG PO (10:35)
[2025-07-18] MEDS: SODIUM HYPOCHLORITE 473 ML SOLUTION TOP ×2 (10:35→21:52)
[2025-07-18] MEDS: CLOTRIMAZOLE 1% VAG CRM 45 GM 1 APPLIC TOP ×2 (10:37→21:53)
[2025-07-18] MEDS: FLUCONAZOLE 100 MG TABLET PO (10:41)
[2025-07-18 12:10] VITALS: BP 91/60; PULSE 71; RESP 16; O2SAT 94
--- NOTE | 2025-07-18 13:36 | CM.DPC ---
DCP Cont. Reviewed EMR and team rounds for status updates and d/c plan. This MENTAL HEALTH PROFESSIONAL spoke with mom on 07/17, and informed her that APS was not wanting him to d/c home, so we would need for mom to committ to nighttime caregiving. She said that she has been, and that she is agreeable to take patient to our [facility] to see Dr. Johnson once per week for woundcare. Yesterday, 07/17, this MENTAL HEALTH PROFESSIONAL left 2-message for APS worker, Ilsa Duran, asking for a legal hold or documentation stating that they are preventing his d/c, and he must remain in the hospital. This morning, Ilsa called back and stated that [facility]PS cannot do a legal hold on patient at this time, because he not in imminent harm. She advised to talk to mom and d/c home. Called Marianela (Mom), to notifiy her that [facility]PS is now allowing him to return home, and that they have no ability to legally hold him here at this time. This was at 1:30pm. Pt will not be needing the IV antibiotics after his dose today, and is cleared for home d/c. Mom states that she'd rather it happen tomorrow now, despite having called several times over the last few days demanding that he be released home with her. She was also complaining that she would need to arrange for her caregivers, which is now only going to be for a few hours today. She will start making calls. This MENTAL HEALTH PROFESSIONAL confirmed that we do need for pt to d/c home today. Called [facility] re: resumption of HH orders. They will review that updated clinicals and consult with their team about their ability to continue services or not. Will fax [facility] the d/c summary in order to resume monitoring and delivery of his feeding formula and equipment.
--- NOTE | 2025-07-18 14:25 | P.PN_ITS ---
Subjective Subjective Date Patient Seen: 07/18/25 Interval history: Chief complaint: Dislodged failed jejunostomy tube, progressive pressure ulcers with infection History of present illness: 07/11: 45 yo with severe CP, spastic hemiplegia, adrenal insullicency, with tracheostomy, decubitus stage III on the sacrum, wheelchair bound with a hx of G tube that fell out and caused peritonitis in April of this year at [facility] who has been living with his mother but he lost his current J-tube today. 07/12: Operative report: The patient was brought to the operating room and monitored anesthesia was induced. After a time-out was performed a well lubricated ureteral scope was inserted into the old jejunostomy tract. Once jejunal villi were seen the 0.035 soft tip Glidewire was inserted into the jejunum under direct vision. The wire was stabilized and the ureteral scope was removed over the wire. Next a 14 Guatemalan red rubber catheter was chosen. The tip was cut off so that it would be able to slide over the wire. Lubrication was applied to the tip and the catheter was advanced into the jejunum over the wire. The wire was then removed. A small volume of Gastrografin was injected into the jejunum through the jejunostomy tube and fluoroscopy was used to confirm that the tip of the jejunostomy tube was within the lumen of the bowel and there was no obvious extravasation. 07/13: His jejunal tube was placed in the operating room on 07/12. He is doing well, denies pain. He is sad and tearful today. Sertraline was just started. Attempted PICC was unsuccessful. Tube feeds were advanced to 30 mL/hour. 07/14: Tube feeds are up to 70 mL/hour. He is feeling better, less emotional. Care was reviewed in detail with the patient's mother yesterday. The patient has a new caregiver and apparently found his tube had become dislodged at home. They are not sure how that happened. The patient's mother is very frustrated about this. She states that she thinks that they have the caregiver situation in place presently. Sacral wound culture shows MRSA and unidentified Gram- negative bacillus, culture pending. 07/15: His wound culture is now growing: Acinetobacter baumannii comple along with the MRSA. He is penicillin allergic. Meropenem is the only other sensitivity reported. His foot rashes a lot better, responding to the antifungal. The potassium is 3.0 so 40 mEq of potassium chloride was given. Subsequently it is 3.9. The hemoglobin is 7.8. 07/16: He has now been scheduled for an appointment [facility] on July 23 at 1:15 p.m.. He will be on meropenem 1 g q.8 hours until 07/20. He will be on Zyvox 600 mg b.i.d. until 07/23. Once those have been set up he will be discharged home tomorrow. The hemoglobin today is 9.1. The white blood count is 5.8. The BNP is normal. 07/17: Appointment has been set up for wound care. Arranging through discharge planning to start meropenem 1 g IV q.8 hours until 07/20 07/18: No change in patient care unfortunately mother's unable to get coverage for patient at night and we will discharge tomorrow at noon no changes in care 1. Methicillin Resis Staph Aureus M.I.C. RX --------- --- * Daptomycin 1 S * Vancomycin 1 S * Ciprofloxacin >=8 R * Doxycycline <=0.5 S * Erythromycin >=8 R * Gentamicin <=0.5 S * Levofloxacin >=8 R * Linezolid 2 S * Moxifloxacin 4 R * Oxacillin Ap >=4 R * Rifampin <=0.5 S * Tetracycline <=1 S * Trimethoprim/Sulfamethoxazole <=10 S 2. Acinetobacter baumannii comple M.I.C. RX --------- --- * Cefepime E-test 8 I * Ceftazidime 16 I * Meropenem 1 S * Piperacillin/Tazobactam 16 S Review of systems: No fevers chills rigors No chest pain shortness for breath No abdominal pain vomiting No urinary symptoms Physical exam: Alert no acute distress and is conversant HEENT: Dry oropharynx Neck supple, midline trachea, no adenopathy. Lungs clear, normal rate and effort. Heart regular, no murmur gallop or rub. Abdomen is soft, non distended and non tender. Extremities are free of edema. Skin is notable for 3.5 x 3.5 cm sacral stage 3-4 decubitus photo in chart. Tinea pedis appears improved. Joints are deformed. Assessment and plan: Cerebral Palsy with malnutrition- J-tube replaced on 07/12. Tube feeds now at max/standard home dosing. * Continue at home Adrenal Insufficiency- * Continue home fludrocortisone and hydrocortisone Chronic respiratory failure- * CXR reviewed, resolved to baseline. Stage 3-4 sacral decubitus culturing MRSA, consistent with infected sacral decubitus. * Acinetobacter baumannii comple also cultured. PE, stable. * Continue apixiban. Elevated LFT's, * Resolved, likely reactive. Tinea Pedis * Responding to topical treatment and systemic Diflucan Chronic left lung pneumonia, active. * Strict NPO except: * Mcclellan free water protocol * Oral care Chronic sacral decubitus, at least stage III. * Oral Zyvox and IV meropenem * Patient requiring IV meropenem for Acinetobacter baumannii complex through 07/23 * P.o. Zyvox through 07/20 * Hold sertraline while on Zyvox (3 days) Severe protein caloric malnutrition with BMI of 21 and evidence of diffuse muscle wasting. * Patient requiring enteral nutrition via jejunostomy feeding tube due to a functional impairment of the gastrointestinal tract secondary to dysphagia and aspiration. Enteral nutrition will be required for > 90 days and will provide the majority of the patient's nutrition. * [facility] to manage tube feedings * Outpatient managing provider is Dr. Chucky Marshall. Disposition: * -investigate placement options given failure of care in home setting. He will require a solid caregiver plan at discharge. Lengthy discussion with the patient's mother regarding the need for outpatient wound care follow-up to maximize healing of his wound. If they are unable to achieve a reliable caregiver plan he would best be served medically by a long-term care facility. However, in this unfortunate young male patient with advanced CP, multiple comorbidities and completely dependent status, a long-term care facility would not be the optimal place for him emotionally given his tendency to severe depression, and any such placement considerations will need to take this into account. An ethics consult may be in order if there are further challenges regarding placement. Discharge plans: * Returning home 07/18 with [facility] to provide completion of IV meropenem, tube feeds and with instructions to follow up at wound care center on Tuesday Time based billing * Greater than 35 minutes were involved in discharge of this patient including [id number] evaluation review of records charts making arrangements for home IV infusions prescriptions and discussion with caregivers Exam Vital Signs (past 8 hours): - 07/18/25 07:00 07/18/25 08:24 07/18/25 09:37 Temperature 97.6 F Pulse Rate 85 Respiratory Rate 15 Blood Pressure 82/55 L Pulse Oximetry 96 96 96 Oxygen Delivery Method Room Air Humidification Trach Collar Blow By Room Air Oxygen Flow Rate 0 Fraction of Inspired Oxygen 21 07/18/25 10:00 07/18/25 12:10 Temperature Pulse Rate 71 Respiratory Rate 16 Blood Pressure 91/60 Pulse Oximetry 94 Oxygen Delivery Method Humidification Trach Collar Oxygen Flow Rate 0 Fraction of Inspired Oxygen Fraction of Inspired Oxygen 21 SaO2/FiO2 Ratio 457 Oxygen Delivery Method Humidification,Trach Collar Oxygen Flow Rate 0 Objective Labs 07/16/25 04:55 07/16/25 04:55 Labs: Laboratory Results - last 24 hr 07/17/25 07/18/25 07/18/25 18:13 04:29 06:26 POC Whole Bld Glucose 86 80 87 07/18/25 07/18/25 07:44 14:15 POC Whole Bld Glucose 93 [facility] Medical History Chronic adrenal insufficiency Chronic anticoagulation Iron deficiency anemia History of pulmonary embolism Status post radiation therapy Chronic anticoagulation Tracheostomy in place Sacral decubitus ulcer, stage III Protein calorie malnutrition Hyponatremia Dysphagia Recurrent aspiration pneumonia Depression, major, recurrent Jejunostomy tube present Influenza A Anemia Pneumonia 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 Father No problems noted. Social History marital status: unmarried,single details: Lives independantly with part-time caregivers household members: caregiver lives independently: Yes occupational status: disabled alcohol intake: former substance use type: marijuana Assessment & Plan Time-Based Coding :: [TOTAL MINUTES] spent with patient and on the chart (including review of chart, obtaining history, exam, reviewing outside data, placing orders, documenting exam and treatment plan, and counseling patient) on [DATE].
[2025-07-18 15:26] VITALS: O2SAT 97
--- NOTE | 2025-07-18 18:41 | PC.NURSE ---
PATIENT A/OX4 THROUGHOUT SHIFT. ROOM AIR/ TRACH COLLAR. NO C/O SOB OF S/S OF RESPI DISTRESS NOTED. SPEAKING VALVE IN PLACE. TOLERATING TUBE FEEDS. BM X1. Q2 TURNS ONGOING. WOUND CARE DONE. BED BATH GIVEN. ALL CONCERNS FROM PATIENT ADDRESSED. CARE ONGOING. POSSIBLY D/C HOME TOMORROW.
[2025-07-18 19:00] VITALS: O2SAT 96
[2025-07-19] MEDS: MIDODRINE HCL 5 MG TABLET TUBE ×3 (01:46→10:24)
[2025-07-19] MEDS: MEROPENEM 1 GM in SODIUM CHLORIDE 0.9% 100 ML IV (02:46)
[2025-07-19 07:00] VITALS: O2SAT 98
--- NOTE | 2025-07-19 07:18 | CM.DPC ---
DCP Cont. Faxed Home Health F/F orders to [facility].
[2025-07-19] MEDS: SERTRALINE 50 MG TABLET 200 MG PO (10:23)
[2025-07-19] MEDS: FLUDROCORTISONE 0.1 MG TABLET PO (10:23)
[2025-07-19] MEDS: BACLOFEN 10 MG TABLET 5 MG PO (10:24)
[2025-07-19] MEDS: APIXABAN 5 MG TABLET TUBE (10:25)
[2025-07-19] MEDS: FLUCONAZOLE 100 MG TABLET PO (10:25)
[2025-07-19] MEDS: HYDROCORTISONE 10 MG TABLET 20 MG PO (10:26)
[2025-07-19] MEDS: CLOTRIMAZOLE 1% VAG CRM 45 GM 1 APPLIC TOP (10:27)
[2025-07-19 10:36] VITALS: PULSE 69; RESP 20; O2SAT 96
--- NOTE | 2025-07-19 10:47 | DIET.PN1 ---
Dietary Progress Note Assessment: Continues TF at 70 ml/hr. Tolerating. More formed BM today per RN. Pt to d/c today per rounds. Resume home formula upon d/c of Isosource 1.5. Ht: 182.88 cm Wt: 70.307 kg BMI: 20.9 Last BM: 07/19/25 (07/19/25 08:17) MNA: 5 Krishan Score: 12 Diet: 07/12/25 Dinner Tube Feeding Diet Diet Modifications: Pending order, only start as directed by surgeon TF Supplement type: Jevity 1.2 saurav TF mode of delivery: Continuous Starting flow rate mL/hr: 10 Flow rate goal mL/hr: 70 Titration Schedule to reach Goal Rate: 10 mL Q8H as tolerated Max total daily volume in mL: 2,200 Free fluid: 80 Free Water Frequency: Q4H Comment: 1 ProSource Protein Packet 1x/day, administer using packet instructions Nutrition Percent Meal Consumed 0% 07/18/25 18:00 Type of Feeding Tube Jejunostomy 07/18/25 16:00 Type of Feeding Tube Jejunostomy 07/18/25 12:00 Type of Feeding Tube Jejunostomy 07/18/25 08:00 Labs: RBC 3.29 X10^6/uL (4.5-5.9) L 07/16/25 04:55 Hgb 9.1 g/dL (13.5-17.5) L 07/16/25 04:55 Hct 27.0 % (41-53) L 07/16/25 04:55 Creatinine 0.33 mg/dL (0.66-1.25) L 07/16/25 04:55 Lactate 1.1 mmol/L (0.7-2.1) 07/10/25 16:34 NT-Pro-B Natriuret Pep 533 pg/mL (<125) H 07/10/25 16:34 Electronically Signed by: Flakita Hopkins 07/19/25 10:47 Clinical Dietitian [address] [id number]
--- NOTE | 2025-07-19 10:53 | PM.DS.1 ---
History of Present Illness History of Present Illness Chief complaint: feeding tube displaced, blood in trach solution Narrative: Chief complaint: Dislodged failed jejunostomy tube, progressive pressure ulcers with infection History of present illness: 07/11: 45 yo with severe CP, spastic hemiplegia, adrenal insullicency, with tracheostomy, decubitus stage III on the sacrum, wheelchair bound with a hx of G tube that fell out and caused peritonitis in April of this year at [facility] who has been living with his mother but he lost his current J-tube today. 07/12: Operative report: The patient was brought to the operating room and monitored anesthesia was induced. After a time-out was performed a well lubricated ureteral scope was inserted into the old jejunostomy tract. Once jejunal villi were seen the 0.035 soft tip Glidewire was inserted into the jejunum under direct vision. The wire was stabilized and the ureteral scope was removed over the wire. Next a 14 Albanian red rubber catheter was chosen. The tip was cut off so that it would be able to slide over the wire. Lubrication was applied to the tip and the catheter was advanced into the jejunum over the wire. The wire was then removed. A small volume of Gastrografin was injected into the jejunum through the jejunostomy tube and fluoroscopy was used to confirm that the tip of the jejunostomy tube was within the lumen of the bowel and there was no obvious extravasation. 07/13: His jejunal tube was placed in the operating room on 07/12. He is doing well, denies pain. He is sad and tearful today. Sertraline was just started. Attempted PICC was unsuccessful. Tube feeds were advanced to 30 mL/hour. 07/14: Tube feeds are up to 70 mL/hour. He is feeling better, less emotional. Care was reviewed in detail with the patient's mother yesterday. The patient has a new caregiver and apparently found his tube had become dislodged at home. They are not sure how that happened. The patient's mother is very frustrated about this. She states that she thinks that they have the caregiver situation in place presently. Sacral wound culture shows MRSA and unidentified Gram-negative bacillus, culture pending. 07/15: His wound culture is now growing: Acinetobacter baumannii comple along with the MRSA. He is penicillin allergic. Meropenem is the only other sensitivity reported. His foot rashes a lot better, responding to the antifungal. The potassium is 3.0 so 40 mEq of potassium chloride was given. Subsequently it is 3.9. The hemoglobin is 7.8. 07/16: He has now been scheduled [facility] an [facility] on July 23 at 1:15 p.m.. He will be on meropenem 1 g q.8 hours until 07/20. He will be on Zyvox 600 mg b.i.d. until 07/23. Once those have been set up he will be discharged home tomorrow. The hemoglobin today is 9.1. The white blood count is 5.8. The BNP is normal. 07/17: Appointment has been set up for wound care. Arranging through discharge planning to start meropenem 1 g IV q.8 hours until 07/20 07/18: No change in patient care unfortunately mother's unable to get coverage for patient at night and we will discharge tomorrow at noon no changes in care 07/19: Patient appropriate for discharge the IV meropenem course has been continued and will not be ordered at home 1. Methicillin Resis Staph Aureus M.I.C. RX --------- --- * Daptomycin 1 S * Vancomycin 1 S * Ciprofloxacin >=8 R * Doxycycline <=0.5 S * Erythromycin >=8 R * Gentamicin <=0.5 S * Levofloxacin >=8 R * Linezolid 2 S * Moxifloxacin 4 R * Oxacillin Ap >=4 R * Rifampin <=0.5 S * Tetracycline <=1 S * Trimethoprim/Sulfamethoxazole <=10 S 2. Acinetobacter baumannii comple M.I.C. RX --------- --- * Cefepime E-test 8 I * Ceftazidime 16 I * Meropenem 1 S * Piperacillin/Tazobactam 16 S Review of systems: No fevers chills rigors No chest pain shortness for breath No abdominal pain vomiting No urinary symptoms Physical exam: Alert no acute distress and is conversant HEENT: Dry oropharynx Neck supple, midline trachea, no adenopathy. Lungs clear, normal rate and effort. Heart regular, no murmur gallop or rub. Abdomen is soft, non distended and non tender. Extremities are free of edema. Skin is notable for 3.5 x 3.5 cm sacral stage 3-4 decubitus photo in chart. Tinea pedis appears improved. Joints are deformed. Assessment and plan: Cerebral Palsy with malnutrition- J-tube replaced on 07/12. Tube feeds now at max/standard home dosing. Continue at home Adrenal Insufficiency- Continue home fludrocortisone and hydrocortisone Chronic respiratory failure- CXR reviewed, resolved to baseline. Stage 3-4 sacral decubitus culturing MRSA, consistent with infected sacral decubitus. Acinetobacter baumannii comple also cultured. PE, stable. Continue apixiban. Elevated LFT's, Resolved, likely reactive. Tinea Pedis Responding to topical treatment and systemic Diflucan Chronic left lung pneumonia, active. Strict NPO except: Mcclellan free water protocol Oral care Chronic sacral decubitus, at least stage III. Oral Zyvox and IV meropenem Patient requiring IV meropenem for Acinetobacter baumannii complex through 07/23 P.o. Zyvox through 07/20 Hold sertraline while on Zyvox (3 days) Severe protein caloric malnutrition with BMI of 21 and evidence of diffuse muscle wasting. Patient requiring enteral nutrition via jejunostomy feeding tube due to a functional impairment of the gastrointestinal tract secondary to dysphagia and aspiration. Enteral nutrition will be required for > 90 days and will provide the majority of the patient's nutrition. [facility] to manage tube feedings Outpatient managing provider is Dr. Chucky Marshall. Disposition: -investigate placement options given failure of care in home setting. He will require a solid caregiver plan at discharge. Lengthy discussion with the patient's mother regarding the need for outpatient wound care follow-up to maximize healing of his wound. If they are unable to achieve a reliable caregiver plan he would best be served medically by a long-term care facility. However, in this unfortunate young male patient with advanced CP, multiple comorbidities and completely dependent status, a long-term care facility would not be the optimal place for him emotionally given his tendency to severe depression, and any such placement considerations will need to take this into account. An ethics consult may be in order if there are further challenges regarding placement. Discharge plans: Returning home 07/17 with [facility] to provide completion of IV meropenem, tube feeds and with instructions to follow up at wound care center on Tuesday Time based billing Greater than 35 minutes were involved in discharge of this patient including hcal-eu-boda evaluation review of records charts making arrangements for home IV infusions prescriptions and discussion with caregivers Discharge Providers Provider Date of admission: 07/11/25 02:44 Discharge Date: 07/19/25 Primary care physician: Chucky Marshall MD Consults: 07/11/25 03:01 Consult to Physician Routine Comment: Consulting Provider: Alen Naqvi Reason for consultation: lost J tube Has provider been notified: Yes 07/11/25 08:39 Consult to Dietitian, Adult Routine Comment: Reason For Exam: J tube dislodged 07/12/25 10:06 Consult to Dietitian, Adult Routine Comment: Reason For Exam: tube fed adult Consult to Wound Care Routine Comment: Consulting Provider: [facility] 07/19/25 07:10 Consult to Home Health Routine Comment: PT, OT, RN, VP [employer]PLIANCE, Bath Aide Reason For Exam: Resumption of Home Health Services Discharge provider: Gordo Russell MD Exam Vital Signs (past 8 hours): - 07/19/25 10:36 Pulse Rate 69 Respiratory Rate 20 Pulse Oximetry 96 Oxygen Delivery Method Room Air Trach Collar Fraction of Inspired Oxygen 21 Fraction of Inspired Oxygen 21 SaO2/FiO2 Ratio 457 Oxygen Delivery Method Room Air,Trach Collar Oxygen Flow Rate 0 Objective Labs 07/16/25 04:55 07/16/25 04:55 Labs: Laboratory Results - last 24 hr 07/18/25 07/19/25 14:15 03:48 POC Whole Bld Glucose 103 H 86 PFSH Medical History Chronic adrenal insufficiency Chronic anticoagulation Iron deficiency anemia History of pulmonary embolism Status post radiation therapy Chronic anticoagulation Tracheostomy in place Sacral decubitus ulcer, stage III Protein calorie malnutrition Hyponatremia Dysphagia Recurrent aspiration pneumonia Depression, major, recurrent Jejunostomy tube present Influenza A Anemia Pneumonia 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 Father No problems noted. Social History marital status: unmarried,single details: Lives independantly with part-time caregivers household members: caregiver lives independently: Yes occupational status: disabled alcohol intake: former substance use type: marijuana Discharge Plan Discharge Plan Patient Disposition: Home Discharge orders & Medications Prescriptions: New fluconazole 100 mg Tablet 100 mg PO DAILY Qty: 7 0RF meropenem 1 gram recon soln 1 g IV Q8H 7 Days linezolid [Zyvox] 600 mg tablet 600 mg PO BID Qty: 7 0RF Continued (DME) XL mattress for semi-electric hospital bed See Rx Instructions .Route .MEDSUPPLY Qty: 1 0RF Rx Instructions: use daily as directed (DME) Disabled Parking Qty: 1 0RF Rx Instructions: I find this patient to be medically disabled and qualified for Disabled Parking as indicated, and signed, on the Accompanying Disabled Parking Application for Individuals ferrous sulfate 325 mg (65 mg iron) tablet 130 mg PO DAILY baclofen 5 mg/5 mL solution 5 mg PO DAILY Qty: 473 3RF Rx Instructions: Give 5mL via J-tube (DME) Battery Powered Lift Qty: 1 0RF Dose Instruction: As directed Rx Instructions: Use daily as directed for transfers to and from bed (DME) Power Chair tall Qty: 1 0RF Dose Instruction: As directed Rx Instructions: As directed for patient care with activities of daily living. Chair needs to tilt foreword and tilt backwards for patient care. Pt is 6 feet tall and will need to fit height. (DME) Shower Chair Qty: 1 0RF Rx Instructions: As directed for patient care with activities of daily living. Chair needs to tilt foreword and tilt backwards for patient care. Pt is 6 feet tall and will need to fit height. (DME) Semi-electric hospital bed Qty: 1 0RF Dose Instruction: As directed Rx Instructions: Semi-electric hospital bed to permit transfers to wheelchair and to attach traction equipment. Must be large enough and long enough to accommodate his height and weight. EDEN: 99 months (DME) Mattress See Rx Instructions .Route .MEDSUPPLY Qty: 1 0RF Rx Instructions: Long mattress for hospital bed Eliquis 5 mg tablet 5 mg PO BID Qty: 60 12RF folic acid 1 mg tablet 1 mg PO DAILY Qty: 90 3RF (DME) Lingraphica Communication Device See Rx Instructions .Route .MEDSUPPLY Qty: 1 0RF Rx Instructions: Evaluation for speech generating device. See online submission form for free trial of device. scopolamine base 1 mg over 3 days patch 3 day 1 patch topical Q3D Qty: 24 1RF sodium chloride 0.9 % solution for nebulization 2.5 ml inhalation Q12H PRN (Reason: shortness of breath or wheezing) Qty: 300 0RF (DME) suction catheter kit See Rx Instructions .Route .MEDSUPPLY Qty: 5 4RF Rx Instructions: Mya suction catheter (or equivalent) equipement and disposable. [facility] supply sertraline 100 mg tablet 200 mg PO DAILY Qty: 60 2RF Banatrol Plus Powder In Packet 1 ea PO 4XD Qty: 450 3RF lansoprazole 30 mg capsule,delayed release(DR/EC) 30 mg PO BID Qty: 60 1RF levofloxacin 750 mg tablet 750 mg PO DAILY Qty: 6 0RF Rx Instructions: take one tab daily for 6 days potassium chloride 20 mEq/15 mL liquid 20 meq PO DAILY Qty: 500 1RF (DME) Disposable Cannula for Trach size XLT, 60xltin, 6.0MMID, Schiley brand, inner cannula See Rx Instructions .Route .MEDSUPPLY Qty: 1 3RF Rx Instructions: As directed ([facility]) BD Luer-Rafael Syringe 3 mL 20 gauge x 1 syringe See Rx Instructions .ROUTE .MEDSUPPLY Qty: 1 Patient Comments: USE FOR MUCOMYST Rx Instructions: As directed Glucagon Emergency Kit (human) 1 mg recon soln 1 mg IM ONCE (DME) blood-glucose meter [True Metrix Air Glucose Meter] [facility] See Rx Instructions .ROUTE DAILY Qty: 1 Rx Instructions: As directed zinc oxide-cod liver oil Ointment 1 ea topical PRN PRN (Reason: skin irritation) Patient Comments: Desitin Topical Ointment. vitamin A and D Ointment 1 applic topical 6XD PRN (Reason: wound care) midodrine 5 mg Tablet 5 mg TUBE Q4HR Qty: 100 0RF oxycodone 5 mg/5 mL Solution 5 mg TUBE Q4HR PRN (Reason: Pain, Moderate (4-6)) Qty: 60 0RF hydrocortisone [Cortef] 10 mg Tablet 20 mg PO BID Qty: 120 0RF fludrocortisone 0.1 mg Tablet 0.1 mg PO DAILY Qty: 100 0RF Dakin's Solution 0.125 % Solution 1 ml topical BID Qty: 100 0RF Medication counseling provided by Pharmacist: Yes Pharmacist Comment: Stop taking sertraline while on linezolid. May resume sertraline 24 hours after last dose of linezolid. Follow up/Referrals: Chucky Marshall MD [Primary Care Provider, Internal Medicine] Skin/Wound/Dressing Care Other wound treatment: Appt scheduled with Wound care clinic 07/23/25 at 1:15pm Visit Report/Discharge Packet Stand Alone Forms: Patient Portal/API, Stroke Signs & Symptoms Discharge Data Primary Care Provider: Chucky Marshall V
== END 2025-07-19 11:17 | disposition home health service (06) | DRG 919 ==
LOC: ED 19:40 → AC 07-11 02:45 → ICU 07-11 03:01
PROVIDERS: Emergency Medicine; Family Medicine; Pharmacist Pharmacist Clinician (PhC)/ Clinical Pharmacy Specialist; Surgery; Admitting Provider Internal Medicine; Emergency Provider Emergency Medicine; PCP Internal Medicine; Referring Provider Emergency Medicine; Visit Provider Internal Medicine
PROC: 0DH63UZ Insertion of Feeding Device into Stomach, Percutaneous Approach (ICD-10-PCS; CPT 43246; principal; 2025-07-12 14:30)
DX: T85.528A Displacement of other gastrointestinal prosthetic devices, implants and grafts, initial encounter (principal); E43 Unspecified severe protein-calorie malnutrition; L89.324 Pressure ulcer of left buttock, stage 4; J69.0 Pneumonitis due to inhalation of food and vomit; J96.10 Chronic respiratory failure, unspecified whether with hypoxia or hypercapnia; G80.2 Spastic hemiplegic cerebral palsy; E27.40 Unspecified adrenocortical insufficiency; R79.89 Other specified abnormal findings of blood chemistry; B95.62 Methicillin resistant Staphylococcus aureus infection as the cause of diseases classified elsewhere; E87.6 Hypokalemia; B35.3 Tinea pedis; F32.A Depression, unspecified; D50.9 Iron deficiency anemia, unspecified; Y73.2 Prosthetic and other implants, materials and accessory gastroenterology and urology devices associated with adverse incidents; Z99.3 Dependence on wheelchair; Z93.0 Tracheostomy status; Z88.0 Allergy status to penicillin; Z79.01 Long term (current) use of anticoagulants; Z86.711 Personal history of pulmonary embolism; Z87.891 Personal history of nicotine dependence; Z68.21 Body mass index [BMI] 21.0-21.9, adult
CPT/HCPCS: 36415; 44015; 71045; 74018; 74177; 76000; 76705; 80048; 80053; 80202; 82962; 83605; 83735; 83880; 84100; 84478; 84484; 85007; 85025; 85027; 85610; 87070; 87075; 87077; 87147; 87186; 87205; 87797; 93005; 93010; 94640; 94760; 94762; 94799; 99222; 99233; 99284; 99291; J1171; J1450; J1720; J2185; J2250; J2704; J3375; J7030; J7042; J7050; J7120; J7613; Q9967

== ENCOUNTER → 2025-07-23 14:41 | Outpatient (CLI) | payer MEDICARE, MEDICAID, OTHER, SELFPAY ==
[2025-05-27 09:05] VITALS: PULSE 89; RESP 16; O2SAT 100
[2025-07-11 03:43] VITALS: BMI 20.9
== END ==
LOC: WC 15:09
PROVIDERS: PCP Internal Medicine; Referring Provider Internal Medicine; Visit Provider Surgery
DX: L89.323 Pressure ulcer of left buttock, stage 3 (principal); G80.9 Cerebral palsy, unspecified; B35.9 Dermatophytosis, unspecified
CPT/HCPCS: 11042; 99203; 99213

== ENCOUNTER → 2025-07-30 11:05 | Outpatient (CLI) | payer MEDICARE, MEDICAID, OTHER, SELFPAY ==
[2025-05-27 09:05] VITALS: PULSE 89; RESP 16; O2SAT 100
[2025-07-11 03:43] VITALS: BMI 20.9
== END ==
LOC: WC 11:08
PROVIDERS: PCP Internal Medicine; Referring Provider Internal Medicine; Visit Provider Surgery
DX: L89.323 Pressure ulcer of left buttock, stage 3 (principal); L89.153 Pressure ulcer of sacral region, stage 3; G80.9 Cerebral palsy, unspecified; L53.8 Other specified erythematous conditions
CPT/HCPCS: 11042; 11045; 99213

== ENCOUNTER 2025-08-04 13:44 | Observation (INO) | payer MEDICARE, MEDICAID, OTHER, SELFPAY ==
[2025-05-27 09:05] VITALS: PULSE 89; RESP 16; O2SAT 100
[2025-07-11 03:43] VITALS: BMI 20.9
[2025-08-04 13:50] VITALS: BP 116/80; PULSE 87; RESP 18; TEMP 36.4; O2SAT 96; BMI 20.3
--- NOTE | 2025-08-04 18:10 | ED.GENADULT ---
HPI - General Adult General Chief complaint: Abdominal Pain Stated complaint: feeding tube came out Time Seen by Provider: 08/04/25 16:15 Source: patient and family Mode of arrival: Wheelchair History of Present Illness HPI narrative: 45-year-old male history of cerebral palsy, pseudobulbar palsy, developmental delay, jejunostomy feeding tube, tracheostomy tube, dysarthria spasticity recurrent pneumonia, spastic hemiparesis, left nondominant side presents presents with dislodged feeding tube at 1:30 p.m per the interline clerk. Other than what is stated 14 point review of system is negative. Related Data Home Medications ?Medication ?Instructions ?Recorded ?Confirmed ferrous sulfate 325 mg (65 mg 130 mg PO DAILY 10/29/21 07/24/25 iron) tablet syringe with needle 3 mL 20 gauge #1 ea 08/10/23 07/24/25 x 1 (BD Luer-Rafael Syringe) blood-glucose meter (True Metrix #1 ea 12/05/24 07/24/25 Air Glucose Meter) glucagon 1 mg solution for 1 mg IM ONCE 12/05/24 07/24/25 injection (Glucagon Emergency Kit) vitamin A and D 1 applic topical 6XD PRN wound care 06/06/25 07/24/25 zinc oxide-cod liver oil topical 1 ea topical PRN PRN skin 06/06/25 07/24/25 ointment irritation Previous Rx's ?Medication ?Instructions ?Recorded Battery Powered Lift #1 ea 03/02/18 Power Chair #1 ea 10/16/18 Disabled Parking #1 ea 01/15/19 Shower Chair #1 ea 07/04/19 XL mattress for semi-electric #1 ea 09/27/22 hospital bed baclofen 5 mg/5 mL oral solution 5 mg (5 mL) PO DAILY #473 mL 01/20/23 Mattress #1 ea 03/28/24 Semi-electric hospital bed #1 ea 03/28/24 apixaban 5 mg tablet (Eliquis) 5 mg PO BID #60 tabs 08/15/24 folic acid 1 mg tablet 1 mg PO DAILY #90 tabs 12/13/24 Lingraphica Communication Device #1 ea 01/23/25 scopolamine base 1 mg over 3 days 1 patch topical Q3D #24 ea 03/15/25 transdermal patch sertraline 100 mg tablet 200 mg (2 x 100 mg) PO DAILY #60 05/01/25 tabs banana 1 ea PO 4XD #450 ea 05/02/25 flakes-transgalactooligosaccharide oral powder packet (Banatrol Plus oral powder packet) fludrocortisone 0.1 mg tablet 0.1 mg PO DAILY #100 tabs 06/03/25 midodrine 5 mg tablet 5 mg TUBE Q4HR #100 tabs 06/03/25 sodium hypochlorite 0.125 % 1 ml topical BID #100 mL 06/03/25 solution (Dakin's Solution) lansoprazole 30 mg capsule,delayed 30 mg PO BID #60 caps 06/25/25 release potassium chloride 20 mEq/15 mL 20 meq (15 mL) PO DAILY #500 mL 06/25/25 oral liquid Disposable Cannula for Trach size #5 ea 07/24/25 XLT, 60xltin, 6.0MMID, AtomShockwave brand, inner cannula suction catheter kit #5 ea 07/24/25 terbinafine HCl 250 mg tablet 250 mg PO DAILY #30 tabs 07/24/25 hydrocortisone 10 mg tablet 20 mg (2 x 10 mg) PO BID #120 tabs 07/29/25 (Cortef) sodium chloride 0.9 % for 2.5 ml inhalation Q12H PRN 07/29/25 nebulization shortness of breath or wheezing #300 mL Allergies Allergy/AdvReac Type Severity Reaction Status Date / Time Penicillins (PENICILLINS) Allergy Severe RASH Verified 08/04/25 13:50 levofloxacin Allergy Intermediate Rash Verified 08/04/25 13:50 Review of Systems Review of Systems ROS Unobtainable: All systems reviewed & are unremarkable except as noted in HPI and below Patient History Medical History Anemia Cerebral palsy Chronic adrenal insufficiency Chronic anticoagulation Chronic anticoagulation Depression Depression, major, recurrent Difficulty with speech Dysarthria Dysphagia Former smoker Gingivitis History of pulmonary embolism Hyponatremia Influenza A Iron deficiency anemia Jejunostomy tube present Pneumonia Protein calorie malnutrition Pseudobulbar palsy Recurrent aspiration pneumonia Sacral decubitus ulcer, stage III 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 Father No problems noted. Social History marital status: unmarried,single details: Lives independantly with part-time caregivers household members: caregiver lives independently: Yes occupational status: disabled alcohol intake: former substance use type: marijuana alcohol intake frequency: 0-2 drinks per day Exam Narrative Exam Narrative: GENERAL: [45] year old patient appears stated age wheelchair bound HEAD: Atraumatic. Normocephalic. EYES: Pupils equal round and reactive. Extraocular motions intact. No scleral icterus. No injection or drainage. ENT: Nose without bleeding, purulent drainage. Throat without erythema, tonsillar hypertrophy or exudate. Airway patent. NECK: Trachea midline. Non tender CARDIOVASCULAR: Regular rate and rhythm without murmurs, gallops, or rubs. RESPIRATORY: Clear to auscultation. Breath sounds equal bilaterally. No wheezes, rales, or rhonchi. GASTROINTESTINAL: Abdomen soft, non-tender, nondistended. EXTREMITIES: No edema or joint tenderness. BACK: Nontender without deformity or crepitance. No flank tenderness. NEURO: AOx1. SKIN: No rash or erythema of visible areas Initial Vital Signs Initial Vital Signs: Vital Signs Temperature 97.5 F L 08/04/25 13:50 Pulse Rate 87 08/04/25 13:50 Respiratory Rate 18 08/04/25 13:50 Blood Pressure 116/80 08/04/25 13:50 Pulse Oximetry 96 08/04/25 13:50 Oxygen Delivery Method Room Air 08/04/25 13:50 Course Vital Signs Vital signs: Vital Signs - 8 hr 08/04/25 13:50 Temperature 97.5 F L Pulse Rate 87 Respiratory Rate 18 Blood Pressure 116/80 Pulse Oximetry 96 Oxygen Delivery Method Room Air Medical Decision Making MDM Narrative Medical decision making narrative: All lab work, vital signs, nurse triage note, medication list, previous ER visits, and all imaging studies reviewed. Dr. Dodson surgery has come by and requested hospitalist admission for patient and to have reversal of apixaban and if able to reverse apixaban able to do procedure tomorrow for feeding tube placement and if not then we will have to wait at least 48 hours. Case d/w hospitalist who has graciously accepted the patient for inpatient admission observation status. Discharge Plan Departure Patient Disposition: Admitted as Observation Clinical Impression: Encounter for feeding tube placement Admit Date/Time: 08/04/25 19:54 Admit Provider: Orville Taylor
--- NOTE | 2025-08-04 18:11 | PC.NURSE ---
pt arrives to ed reporting feeding tube fell out - family unsure of which type of tube it us but stated he had to have it surgically placed two weeks ago - tube does not appear to be damaged or broken
--- NOTE | 2025-08-04 18:52 | PM.CN.IH.1 ---
History of Present Illness Consult details Date Patient Seen: 08/04/25 Time Patient Seen: 18:52 Chief complaint: feeding tube came out Reason for consult: Dislodged jejunostomy tube Requesting provider: Daniel Stout Narrative: 45yo M known to our service, multiple episodes of dislodged feeding tube. At one point, G-tube converted to J-tube. Prior dislodgement replaced operatively over guidewire placed by ureteroscope. Dislodgement occurred approximately 1PM today, six hours ago. The only feeding tubes we have on hand are too large for the tract. I cleaned the dislodged tube and probed the tract but it is a Witzel and has already contracted to the point that we are unable to replace directly. This will require operative replacement again. Meds Home Medications and Allergies Home Medications ?Medication ?Instructions ?Recorded ?Confirmed ?Type Battery Powered Lift #1 ea 03/02/18 07/24/25 Rx Power Chair #1 ea 10/16/18 07/24/25 Rx Disabled Parking #1 ea 01/15/19 07/24/25 Rx Shower Chair #1 ea 07/04/19 07/24/25 Rx ferrous sulfate 325 mg (65 mg 130 mg PO DAILY 10/29/21 07/24/25 History iron) tablet XL mattress for semi-electric #1 ea 09/27/22 07/24/25 Rx hospital bed baclofen 5 mg/5 mL oral solution 5 mg (5 mL) PO DAILY #473 mL 01/20/23 07/24/25 Rx syringe with needle 3 mL 20 gauge #1 ea 08/10/23 07/24/25 History x 1 (BD Luer-Rafael Syringe) Mattress #1 ea 03/28/24 07/24/25 Rx Semi-electric hospital bed #1 ea 03/28/24 07/24/25 Rx apixaban 5 mg tablet (Eliquis) 5 mg PO BID #60 tabs 08/15/24 07/24/25 Rx blood-glucose meter (True Metrix #1 ea 12/05/24 07/24/25 History Air Glucose Meter) glucagon 1 mg solution for 1 mg IM ONCE 12/05/24 07/24/25 History injection (Glucagon Emergency Kit) folic acid 1 mg tablet 1 mg PO DAILY #90 tabs 12/13/24 07/24/25 Rx Lingraphica Communication Device #1 ea 01/23/25 07/24/25 Rx scopolamine base 1 mg over 3 days 1 patch topical Q3D #24 ea 03/15/25 07/24/25 Rx transdermal patch sertraline 100 mg tablet 200 mg (2 x 100 mg) PO DAILY #60 05/01/25 07/24/25 Rx tabs banana 1 ea PO 4XD #450 ea 05/02/25 07/24/25 Rx flakes-transgalactooligosaccharide oral powder packet (Banatrol Plus oral powder packet) fludrocortisone 0.1 mg tablet 0.1 mg PO DAILY #100 tabs 06/03/25 07/24/25 Rx midodrine 5 mg tablet 5 mg TUBE Q4HR #100 tabs 06/03/25 07/24/25 Rx sodium hypochlorite 0.125 % 1 ml topical BID #100 mL 06/03/25 07/24/25 Rx solution (Dakin's Solution) vitamin A and D 1 applic topical 6XD PRN wound care 06/06/25 07/24/25 History zinc oxide-cod liver oil topical 1 ea topical PRN PRN skin 06/06/25 07/24/25 History ointment irritation lansoprazole 30 mg capsule,delayed 30 mg PO BID #60 caps 06/25/25 07/24/25 Rx release potassium chloride 20 mEq/15 mL 20 meq (15 mL) PO DAILY #500 mL 06/25/25 07/24/25 Rx oral liquid Disposable Cannula for Trach size #5 ea 07/24/25 07/24/25 Rx XLT, 60xltin, 6.0MMID, [facility], inner cannula suction catheter kit #5 ea 07/24/25 07/24/25 Rx terbinafine HCl 250 mg tablet 250 mg PO DAILY #30 tabs 07/24/25 07/24/25 Rx hydrocortisone 10 mg tablet 20 mg (2 x 10 mg) PO BID #120 tabs 07/29/25 Rx (Cortef) sodium chloride 0.9 % for 2.5 ml inhalation Q12H PRN 07/29/25 Rx nebulization shortness of breath or wheezing #300 mL Allergies Allergy/AdvReac Type Severity Reaction Status Date / Time Penicillins (PENICILLINS) Allergy Severe RASH Verified 08/04/25 13:50 levofloxacin Allergy Intermediate Rash Verified 08/04/25 13:50 Exam Vital Signs (past 8 hours): - 08/04/25 13:50 Temperature 97.5 F L Pulse Rate 87 Respiratory Rate 18 Blood Pressure 116/80 Pulse Oximetry 96 Oxygen Delivery Method Room Air Oxygen Delivery Method Room Air GI Other: ABD: soft, ND, NT. J-tube tract in LUQ is tiny and already contracted. Gentle probing using cleaned dislodged tube unsuccessful due to tract contracture. [facility] Medical History Anemia Cerebral palsy Chronic adrenal insufficiency Chronic anticoagulation Chronic anticoagulation Depression Depression, major, recurrent Difficulty with speech Dysarthria Dysphagia Former smoker Gingivitis History of pulmonary embolism Hyponatremia Influenza A Iron deficiency anemia Jejunostomy tube present Pneumonia Protein calorie malnutrition Pseudobulbar palsy Recurrent aspiration pneumonia Sacral decubitus ulcer, stage III 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 Father No problems noted. Social History marital status: unmarried,single details: Lives independantly with part-time caregivers household members: caregiver lives independently: Yes occupational status: disabled Tobacco & Substance Use alcohol intake: former substance use type: marijuana Assessment & Plan Assessment and plan (1) Jejunostomy tube fell out: Status: Acute Plan Unable to replace in ED due to tract contracture, Witzel tunnel. This will require operative replacement. Patient on Eliquis. If reversed with Kcentra, could do this tomorrow, otherwise need 48 hours off eliquis and he took dose this morning (Tuesday), thus could do this on Tuesday morning unless reversed. Will reserve operative time tomorrow in case reversal is done. Time-Based Coding :: [TOTAL MINUTES] spent with patient and on the chart (including review of chart, obtaining history, exam, reviewing outside data, placing orders, documenting exam and treatment plan, and counseling patient) on [DATE]. PROFEE Charge Codes Inpatient or Observation consultation: 60154
[2025-08-04 20:05] VITALS: BP 122/93; PULSE 89; RESP 16; TEMP 37; O2SAT 98
[2025-08-04 20:31] VITALS: BMI 20.3
[2025-08-04 20:55] LABS: Add Manual Diff / Slide Review NO; Hematocrit 27.4 % (41-53); Hemoglobin 9.1 g/dL (13.5-17.5); Lymphocytes Absolute Auto 1000 /uL (1100-4500); Mean Corpuscular HGB Conc 33.1 % (30-36); Mean Corpuscular Hemoglobin 26.7 PG (26-34); Mean Corpuscular Volume 80.6 fL (80-100); Platelet Count 315 X10^3/uL (150-400)
[2025-08-04 21:01] LABS: Alanine Aminotransferase 62 IU/L (<50); Albumin 4.5 g/dL (3.5-5.0); Albumin Globulin Ratio 0.9 (1.0-2.8); Alkaline Phosphatase 148 U/L (38-126); Blood Urea Nitrogen 20 mg/dL (9-20); Calcium 9.8 mg/dL (8.4-10.2); Carbon Dioxide 27 mmol/L (22-32); Chloride 100 mmol/L (98-107); Estimated Glomerular Filt Rate > 60 mL/min (>60); Globulin 4.8 g/dL (1.7-4.1); Glucose 79 mg/dL (70-99); HEMOLYSIS < 15 (0-50); Potassium 4.0 mmol/L (3.4-5.1); Sodium 137 mmol/L (137-145); Total Protein 9.3 g/dL (6.3-8.2)
[2025-08-04 21:15] VITALS: BP 106/76; PULSE 87; RESP 20; TEMP 36.4; O2SAT 98
[2025-08-04] MEDS: SODIUM CHLORIDE 0.9% 1,000 ML 100 ML IV (21:26)
[2025-08-05] VITALS (11 sets, daily range): BP systolic 96–133; BP diastolic 58–83; PULSE 71–112; RESP 16–28; TEMP 36.1–36.5; O2SAT 95–100
[2025-08-05 02:38] LABS: MRSA (Nasal) PCR DETECTED (Not Detect)
--- NOTE | 2025-08-05 03:52 | PM.HP.1 ---
History of Present Illness History of Present Illness Date Patient Seen: 08/04/25 Time Patient Seen: 23:12 Chief complaint: feeding tube came out Narrative: 45-year-old male with past medical history of cerebral palsy, pseudo bulbar palsy, developmental delay, jejunostomy feeding tube, tracheostomy tube, dysarthria, spastic hemiparesis, presents with dislodged feeding tube. Per report the patient had an incident where the feeding tube was dislodged around 1:30 PM today. Of note patient is unable to give any history. In the emergency room, the patient was hemodynamically stable. Labs were relatively benign and stable. General surgery was consulted for placement of new feeding tube. However patient is on Eliquis and will consult pharmacy to help possible reverse effect of Eliquis for plan OR. [facility] Medical History Anemia Cerebral palsy Chronic adrenal insufficiency Chronic anticoagulation Chronic anticoagulation Depression Depression, major, recurrent Difficulty with speech Dysarthria Dysphagia Former smoker Gingivitis History of pulmonary embolism Hyponatremia Influenza A Iron deficiency anemia Jejunostomy tube present Pneumonia Protein calorie malnutrition Pseudobulbar palsy Recurrent aspiration pneumonia Sacral decubitus ulcer, stage III 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 Father No problems noted. Social History marital status: unmarried,single details: Lives independantly with part-time caregivers household members: caregiver lives independently: Yes occupational status: disabled alcohol intake: former substance use type: marijuana Meds Home Medications and Allergies Home Medications ?Medication ?Instructions ?Recorded ?Confirmed ?Type Battery Powered Lift #1 ea 03/02/18 08/04/25 Rx Power Chair #1 ea 10/16/18 08/04/25 Rx Disabled Parking #1 ea 01/15/19 08/04/25 Rx Shower Chair #1 ea 07/04/19 08/04/25 Rx ferrous sulfate 325 mg (65 mg 130 mg PO DAILY 10/29/21 08/04/25 History iron) tablet XL mattress for semi-electric #1 ea 09/27/22 08/04/25 Rx hospital bed baclofen 5 mg/5 mL oral solution 5 mg (5 mL) PO DAILY #473 mL 01/20/23 08/04/25 Rx syringe with needle 3 mL 20 gauge #1 ea 08/10/23 08/04/25 History x 1 (BD Luer-Rafael Syringe) Mattress #1 ea 03/28/24 08/04/25 Rx Semi-electric hospital bed #1 ea 03/28/24 08/04/25 Rx apixaban 5 mg tablet (Eliquis) 5 mg PO BID #60 tabs 08/15/24 08/04/25 Rx blood-glucose meter (True Metrix #1 ea 12/05/24 08/04/25 History Air Glucose Meter) glucagon 1 mg solution for 1 mg IM ONCE 12/05/24 08/04/25 History injection (Glucagon Emergency Kit) folic acid 1 mg tablet 1 mg PO DAILY #90 tabs 12/13/24 08/04/25 Rx Lingraphica Communication Device #1 ea 01/23/25 08/04/25 Rx scopolamine base 1 mg over 3 days 1 patch topical Q3D #24 ea 03/15/25 08/04/25 Rx transdermal patch sertraline 100 mg tablet 200 mg (2 x 100 mg) PO DAILY #60 05/01/25 08/04/25 Rx tabs banana 1 ea PO 4XD #450 ea 05/02/25 08/04/25 Rx flakes-transgalactooligosaccharide oral powder packet (Banatrol Plus oral powder packet) fludrocortisone 0.1 mg tablet 0.1 mg PO DAILY #100 tabs 06/03/25 08/04/25 Rx midodrine 5 mg tablet 5 mg TUBE Q4HR #100 tabs 06/03/25 08/04/25 Rx sodium hypochlorite 0.125 % 1 ml topical BID #100 mL 06/03/25 08/04/25 Rx solution (Dakin's Solution) vitamin A and D 1 applic topical 6XD PRN wound care 06/06/25 08/04/25 History zinc oxide-cod liver oil topical 1 ea topical PRN PRN skin 06/06/25 08/04/25 History ointment irritation lansoprazole 30 mg capsule,delayed 30 mg PO BID #60 caps 06/25/25 08/04/25 Rx release potassium chloride 20 mEq/15 mL 20 meq (15 mL) PO DAILY #500 mL 06/25/25 08/04/25 Rx oral liquid Disposable Cannula for Trach size #5 ea 07/24/25 08/04/25 Rx XLT, 60xltin, 6.0MMID, [employer], inner cannula suction catheter kit #5 ea 07/24/25 08/04/25 Rx terbinafine HCl 250 mg tablet 250 mg PO DAILY #30 tabs 07/24/25 08/04/25 Rx hydrocortisone 10 mg tablet 20 mg (2 x 10 mg) PO BID #120 tabs 07/29/25 08/04/25 Rx (Cortef) sodium chloride 0.9 % for 2.5 ml inhalation Q12H PRN 07/29/25 08/04/25 Rx nebulization shortness of breath or wheezing #300 mL Allergies Allergy/AdvReac Type Severity Reaction Status Date / Time Penicillins (PENICILLINS) Allergy Severe RASH Verified 08/04/25 13:50 levofloxacin Allergy Intermediate Rash Verified 08/04/25 13:50 Exam Vital Signs (past 8 hours): - 08/04/25 20:05 08/04/25 21:15 Temperature 98.6 F 97.6 F Pulse Rate 89 87 Respiratory Rate 16 20 Blood Pressure 122/93 H 106/76 Pulse Oximetry 98 98 Oxygen Delivery Method Room Air Oxygen Flow Rate 0 Oxygen Delivery Method Room Air Oxygen Flow Rate 0 Narrative Exam Narrative: Physical Exam: GENERAL: Unable to communicate much though awake. HEENT: Nonicteric sclerae, PERRLA, EOMI. Oropharynx clear. Moist mucous membranes. Conjunctivae appear well perfused. HEART: Regular rate and rhythm without murmurs. No lower extremities edema. LUNGS: Clear to auscultation bilaterally. No wheezing, crackles or rhonchi ABDOMEN: J tube is out. Soft, positive bowel sounds, nontender. SKIN: No rash, no excessive bruising, petechiae, or purpura. NEUROLOGIC: Unable to communicate much. Objective Labs 08/04/25 20:39 08/04/25 20:39 Labs: Laboratory Results - last 24 hr 08/04/25 08/04/25 20:39 23:45 WBC 4.1 L RBC 3.40 L Hgb 9.1 L Hct 27.4 L MCV 80.6 MCH 26.7 MCHC 33.1 RDW 19.0 H Plt Count 315 Neut % (Auto) 65.7 Lymph % (Auto) 24.3 L [place] % (Auto) 5.9 Eos % (Auto) 2.9 Baso % (Auto) 1.2 Neut # (Auto) 2700 Lymph # (Auto) 1000 L [place] # (Auto) 200 Eos # (Auto) 100 Baso # (Auto) 100 Sodium 137 Potassium 4.0 Chloride 100 Carbon Dioxide 27 BUN 20 Creatinine 0.36 L Estimated GFR > 60 BUN/Creatinine Ratio 55.6 H Glucose 79 Calcium 9.8 Total Bilirubin 0.4 AST 43 ALT 62 H Alkaline Phosphatase 148 H Total Protein 9.3 H Albumin 4.5 Globulin 4.8 H Albumin/Globulin Ratio 0.9 L Nasal Screen MRSA (PCR) Detected H Assessment & Plan Assessment & Plan narrative: Dislodged feeding tube. Admit the patient to medical observation. Continue IV fluid and monitor patient. Again as above will have pharmacy assist to see if there is possibility of reversing effect of Eliquis. If not we would have to wait over the next few days until Eliquis if cleared from the system so that we can proceed to placement of new feeding tube by general surgery. Appreciate general surgery input and management. Depression. Will hold medication once new feeding tube is placed. DVT prophylaxis SCDs and was previous on Eliquis. CODE STATUS full code will need to confirm with patient's family in the morning. Disposition likely home in 1 to 2 days - As the provider of this telehealth evaluation, requested by the patient's evaluating physician, I attest that I introduced myself to the patient, provided my credentials and determined that telemedicine via a real-time, 2 way interactive audio and video platform is an appropriate and effective means of providing this service. - I reviewed the patient's chart and had a discussion with the member of the patient's treatment team. - The patient and I mutually agreed with continuation of this evaluation via telemedicine. The patient consented for the telemedicine evaluation. - This virtual encounter was taken place from [place] by Dr. Orville Taylor. The patient was evaluated at [facility]. The encounter was approximately 35 minutes. The nurse was present during the entire time of the encounter and was able to assists with exam/stethoscope. Time-Based Coding :: [TOTAL MINUTES] spent with patient and on the chart (including review of chart, obtaining history, exam, reviewing outside data, placing orders, documenting exam and treatment plan, and counseling patient) on [DATE]. Quality VTE Deep Vein Thrombosis/Pulmonary Embolism Present on Admission: No
[2025-08-05] MEDS: SODIUM CHLORIDE 0.9% 1,000 ML 100 ML IV ×2 (06:22→21:31)
[2025-08-05] MEDS: PROTHROMBIN CPLX(PCC)4FACT 2,000 UNIT in ISOOSMOTIC VEHICLE 0 ML 489.881 UNIT IV (08:30)
[2025-08-05 08:46] LABS: INR 1.6 (0.9-1.3); Prothrombin Time 17.7 SECONDS (9.4-12.5)
--- NOTE | 2025-08-05 11:18 | DIET.CONS ---
Dietary Consultation Note Admission Date: 08/04/2025 19:54 Assessment: 45 y M admitted for dislodge j-tube. Dietitian screened for pt on tube feeds. Pt to have surgery at 1645 today to replace j-tube. Per EMR review, tube was dislodged yesterday at 1330. Tube feed order below. Can restart feeds as directed by surgery after tube is replaced. Formula pt is on at home is IsoSource 1.5 80 mL/hr for 18 hours. Ht: 182.88 cm Wt: 68.039 kg BMI: 20.3 UBW: 160# (72 kg) Last BM: 08/04/25 (08/04/25 21:27) MNA: 6 Krishan Score: 12 Diet: 08/04/25 19:56 NPO Diet Diet Modifications: NPO Type: NPO except for Meds Labs: RBC 3.40 X10^6/uL (4.5-5.9) L 08/04/25 20:39 Hgb 9.1 g/dL (13.5-17.5) L 08/04/25 20:39 Hct 27.4 % (41-53) L 08/04/25 20:39 Creatinine 0.36 mg/dL (0.66-1.25) L 08/04/25 20:39 Nutrition Diagnosis: -Inadequate oral intakes r/t unable to take nutrition orally or via J-tube aeb dislodged J-tube -Increased nutrient needs (protein) r/t healing needs aeb stage 3 pressure ulcer -Severe chronic Protein Calorie Malnutrition r/t history of inadequate oral intakes with altered GI motility and increased needs (protein) as evidenced by severe muscle wasting in temples and deltoid, severe buccal and orbital subcutaneous fat loss, history of <60% of estimated protein needs due to malabsorption, wound healing needs, and multiple recent hospitalizations in past months Interventions: When feeds are able to be restarted per surgery, plan is as follows: Continuous Jevity 1.2 via j-tube starting at 10 ml/hr and advancing 10 ml/hr Q8H until goal rate of 70 ml/hr. 1 ProSource Protein packet daily, administer using packet instructions. Flush 80 mL free water Q4H. Will re-eval flushes based on IVF post-op. At goal rate + 1 protein packet provides 2060 kcals (100% EER) and 104 g protein (100% EER) and formula plus flushes provides 1880 mL fluids (will re-eval fluids post-op) When pt discharged- pt can d/c back on home formula (IsoSource 1.5) and home regimen managed by [facility] dietitians EER: 2000 kcals (30kcals/kg per BMI) 102-115 g protein (1.5-1.7 g/kg per wounds/PCM) 1536-1448 ml fluids (35 ml/kg per age vs Letart segsally) Monitoring/Evaluations: tube feed placement, start of feeds, tolerance, fluids Electronically Signed by: Flakita Hopkins 08/05/25 11:18 Clinical Dietitian [address] [address]
--- NOTE | 2025-08-05 13:32 | PC.WOUNDPHOT ---
Trach Site Photos All photos taken by Alecia GREER 08/05/25.
--- NOTE | 2025-08-05 14:58 | CM.DANOTE ---
Patient is a 45 yo male who was admitted OBS Status on 08/04/25 for Dislodged Feeding Tube. Pt has [facility] and [facility] for insurance and his PCP is Dr. Chucky Marshall. EMR was reviewed. Per MD, pt with past medical history of cerebral palsy, pseudo bulbar palsy, developmental delay, jejunostomy feeding tube, tracheostomy tube, dysarthria, spastic hemiparesis, presents with dislodged feeding tube. Eliquis held and plan of Surgeon to surgically replace feeding tube in OR at 1645 today. Per RN, pt's ongoing sacral wound has improved since his last admission when he discharged on 07/19/25 to home. No further medical concerns at this time. Pt's [facility] CM Thea ph# [phone] called to confirm pt was admitted and provided updated information on need for feeding tube placement and then likely d/c home with mom support and [facility] CGs and [facility] for enteral feeds and likely [facility] continued. Thea does not have any further concerns or questions and will continue to follow. SW called mom Marianela and confirmed that she is aware of tube feeding placement and likely will not need to remain in the hospital for very long this admission and she confirms that she feels things with her son are going swimmingly. Faxed H&P to [facility] to confirm only Resumption orders needed at d/c. Plan: SW to follow tomorrow to confirm progress with feeding tube placement and functioning properly for plan of home with [facility], [facility] for feeds, [facility]. [facility] Discharge Planning/Care Management Advanced directive, confirm from FAMILY Start: 08/04/25 21:26 Freq: Q24H Status: Active Protocol: Document 08/04/25 21:26 (Rec: 08/05/25 00:26 [id number]) Advance Directive, confirm on record Time 00:26 Person contacted no answer Copy received No CM Discharge Assessment Start: 08/04/25 20:31 Freq: Status: Active Protocol: Document 08/05/25 14:56 BF (Rec: 08/05/25 14:58 BF [id number]) Discharge Planning Assessment Assigned Discharge [facility] [place] Mandrel Puller Provider Dr. Chucky Marshall Insurance Medicaid,Medicare DPOA/Assigned Mother Marianela Designee Name Contact Information [phone] Advance Directives? Yes: DPOA Advance Directives No on File History Provided By Patient,Parents,Medical Record Has Patient been No admitted in last 30 days? Prior Living House Arrangements Household Members caregiver Type of Relies on Others transporation used prior to admit Independent with ADL No 's Is patient alert and Yes: somewhat oriented? Needs Assistance Bathing,Meal Prep,Toileting,Managing Medications,Home With Chores / Shopping Caregiver for No Another Community Services Home Health Aid,Home Health Nurse used prior to admission: DME Already Rented / Wheelchair,Other Owned Comment Carlos Alberto Lift. Power WC. Vibrating Vest for pulmonary Toileting. Enteral Feeds Patient/Family Home with Home Health Preference Barriers to No Discharge Discharge Plan Home with Home Health Transportation Mom or caregiver Arrangement Referrals Initiated Home Health,Personnel Research Scientist Review Status In Process Please Provide Date 08/05/25 Initial DC Assessment Was Performed Next Review Type Continued Stay Review
[2025-08-05] MEDS: ACETAMINOPHEN IV 1,000 MG/100 ML VIAL 400 MG IV (15:16)
[2025-08-05] MEDS: ALBUTEROL 2.5 MG/3 ML NEB (ADULT) INH (15:16)
[2025-08-05] MEDS: LACTATED RINGERS 1,000 ML 20 ML IV (15:17)
--- NOTE | 2025-08-05 17:41 | PM.OP.1 ---
Operative Date/Time/Diagnoses Date of procedure: 08/05/25 Time of procedure: 17:43 Pre-op diagnosis: Dislodged jejunostomy tube Post-op diagnosis: same Procedure & Clinicians Procedure: Attempted tube replacement using ureteroscope unsuccessful. Planned laparoscopy aborted, unable to place cuffed tracheostomy tube Same procedure(s) as scheduled: Yes Indications: 45yo M with dislodged jejunostomy tube Surgeon: Maged Escalona Assisted?: No Anesthesia Type: General Operative Notes Findings: Unable to replace tube directly due to contracted site, unable to do laparoscopy due to inability to place cuffed tracheostomy tube Closure Type: not applicable Specimen(s): none sent Applied: none Estimated Blood Loss (mL): 5 Blood products transfused: none Procedure in detail: After informed consent and satisfactory sedation, the abdomen was prepped and draped in the usual sterile manner. Surgical time-out was performed with all team members in agreement. We attempted to recannulate the jejunostomy tract with a ureteral scope which was successful the last time the feeding tube was dislodged but we were unable to intubate the jejunum secondary to a contracted tract. We then planned laparoscopic-assisted replacement of the jejunostomy tube. This requires muscle relaxation so the non cuffed tracheostomy tube was attempted to be exchanged to a cuffed tube but the cuffed tube was unable to be advanced into the trachea. The tracheostomy site also has a chronic wound with chronic inflammation and there was non-pulsatile oozing around the tracheal entry site. A standard endotracheal tube was placed successfully but the tidal volumes were inadequate for muscle relaxation so the procedure was abandoned. Complications: none Post-operative Condition: stable Disposition: PACU Plan for aftercare: PACU to floor Will need a cuffed tracheostomy tube before further attempt at replacing feeding tube
--- NOTE | 2025-08-05 18:20 | SUR.OPER ---
Procedure was scheduled for a percutaneous placement of a j tube possible laprascopy. Decison was made by Dr. Escalona to convert to laprascopic. Patient was moved from their bed to the surgical bed by team. Patient re-preped and draped. Canceled by Anes due to airway concerns prior to making incision.
--- NOTE | 2025-08-05 18:21 | RT ---
Was called back to OR to help with room 229's trach tube. Patient went back to OR to have peg tube replaced. Prior to starting case anesthesia needed to replace patient's uncuffed trach for a cuffed one so that the patient could be sedated and paralyzed. Cuffed tube was unable to go back in and a 6.0 cuffed ETT was placed instead. Site was moderately bleeding. With unstable trach site the case was canceled and original trach was placed back.
[2025-08-05] MEDS: SCOPOLAMINE 1 PATCH TOP (21:31)
[2025-08-06 00:11] VITALS: BP 136/86; PULSE 82; RESP 18; O2SAT 100
[2025-08-06 02:04] VITALS: PULSE 84; RESP 16; RESP 18; O2SAT 100
[2025-08-06 04:18] VITALS: BP 133/83; PULSE 78; RESP 18; O2SAT 100
[2025-08-06] MEDS: SODIUM CHLORIDE 0.9% 1,000 ML 100 ML IV (06:17)
--- NOTE | 2025-08-06 06:18 | PM.PN.IH.1 ---
Subjective Subjective Date Patient Seen: 08/06/25 Time Patient Seen: 06:19 Interval history: Stable overnight AVSS Unable to replace feeding tube due to tract contracture and inability to place cuffed tracheal tube with adequate tidal volumes Exam Vital Signs (past 8 hours): - 08/06/25 00:11 08/06/25 02:04 08/06/25 02:04 Pulse Rate 82 84 84 Respiratory Rate 18 18 16 Blood Pressure 136/86 Pulse Oximetry 100 100 100 Oxygen Delivery Method Humidification Trach Collar Humidification Trach Collar Oxygen Flow Rate 6 6 Fraction of Inspired Oxygen 28 28 08/06/25 04:18 Pulse Rate 78 Respiratory Rate 18 Blood Pressure 133/83 Pulse Oximetry 100 Oxygen Delivery Method Oxygen Flow Rate Fraction of Inspired Oxygen Fraction of Inspired Oxygen 28 SaO2/FiO2 Ratio 357 Oxygen Delivery Method Humidification,Trach Collar Oxygen Flow Rate 6 GI Other: ABD: soft, non-peritoneal exam Objective Labs 08/04/25 20:39 08/04/25 20:39 Labs: Laboratory Results - last 24 hr 08/05/25 08:15 PT 17.7 H INR 1.6 H PFSH Medical History Anemia Cerebral palsy Chronic adrenal insufficiency Chronic anticoagulation Chronic anticoagulation Depression Depression, major, recurrent Difficulty with speech Dysarthria Dysphagia Former smoker Gingivitis History of pulmonary embolism Hyponatremia Influenza A Iron deficiency anemia Jejunostomy tube present Pneumonia Protein calorie malnutrition Pseudobulbar palsy Recurrent aspiration pneumonia Sacral decubitus ulcer, stage III 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 Father No problems noted. Social History marital status: unmarried,single details: Lives independantly with part-time caregivers household members: caregiver lives independently: Yes occupational status: disabled alcohol intake: former substance use type: marijuana Assessment & Plan Assessment and plan (1) Encounter for feeding tube placement: Status: Acute (2) Jejunostomy tube fell out: Status: Acute Plan Will work on cuffed tracheal tube to facilitate surgical replacement of feeding tube Time-Based Coding :: [TOTAL MINUTES] spent with patient and on the chart (including review of chart, obtaining history, exam, reviewing outside data, placing orders, documenting exam and treatment plan, and counseling patient) on [DATE]. Quality VTE Deep Vein Thrombosis/Pulmonary Embolism Present on Admission: No [facility] PROFEE Fulfillment Mail Clerk Document charge(s): Yes Charge Codes Subsequent inpatient/observation care: [id number]
[2025-08-06 08:00] VITALS: BP 130/90; PULSE 80; RESP 23; TEMP 35.9; O2SAT 100
--- NOTE | 2025-08-06 10:11 | PC.NURSE ---
Addendum entered by Thea Cabrera RN 08/06/25 15:09: Report given to receiving RN at 1502. Attempted to call mother. Phone number listed was disconnected. Charge nurse notified. HUMIDIFIER OPERATOR notified, attempting to find alternative contact. Pt motorized w/c, clothing, and blanket still in room. Susan ferreira sent with pt to . Addendum entered by Thea Cabrera RN 08/06/25 14:41: Per provider Dr. Russell and charge nurse Puja, pt to be transferred to [facility]. Called to give report with number provided by charge nurse. Was told by charge nurse Gillian pt was not accepted. Charge nurse Puja updated. Per charge nurse Puja, pt is accepted and bed is available. Transport arrived at approx. 1355. Pt transferred to transport monitoring and stretcher. Report given to waste transportation technician. Pt transported with ambulance crew at approx. 1410. Report attempted to , told pt was going to a different floor due to trach. Awaiting a call to give report. Original Note: Day shift: Pt alert to self, place, situation and vague time. Education provided to pt on provider order for NG dobhoff for nutrition. Pt declined, provider Dr. Russell notified. Trach care provided by RT and this RN. Vignesh blood upon suction with thin white secretions. Pt declining reposition at this time. Pt educated on importance of skin integrity and need for reposition. Pt continues to decline. Pt able to use call light, call light in left hand per pt preference. Care ongoing.
--- NOTE | 2025-08-06 10:50 | DIET.PN1 ---
Dietary Progress Note Assessment: Unable to place j-tube d/t barriers with trach and surgery. Hospitalist seeking transfer to higher level of care and TPN in meanwhile. Reccs below. Ht: 182.88 cm Wt: 68.039 kg BMI: 20.3 UBW: 160# Last BM: 08/05/25 (08/05/25 18:00) MNA: 6 Krishan Score: 14 Diet: 08/04/25 19:56 NPO Diet Diet Modifications: NPO Type: NPO except for Meds Labs: RBC 3.40 X10^6/uL (4.5-5.9) L 08/04/25 20:39 Hgb 9.1 g/dL (13.5-17.5) L 08/04/25 20:39 Hct 27.4 % (41-53) L 08/04/25 20:39 Creatinine 0.36 mg/dL (0.66-1.25) L 08/04/25 20:39 Nutrition Diagnosis: -Inadequate oral intakes r/t unable to take nutrition orally or via J-tube aeb dislodged J-tube and unable to be surgically replaced at this facility -Increased nutrient needs (protein) r/t healing needs aeb stage 3 pressure ulcer -Severe chronic Protein Calorie Malnutrition r/t history of inadequate oral intakes with altered GI motility and increased needs (protein) as evidenced by severe muscle wasting in temples and deltoid, severe buccal and orbital subcutaneous fat loss, history of <60% of estimated protein needs due to malabsorption, wound healing needs, and multiple recent hospitalizations in past months Interventions: 1. Continuous TPN via PICC as follows: Day 1: 1 L Clinimix 5/20 at 42 mL/hr. If no signs of refeeding, advance to day 2 Day 2: 1.5 L Clinimix 5/20 at 63 mL/hr. If no signs of refeeding, advance to day 3. Day 3: Goal rate: 2 L Clinimix 5/20 at 84 mL/hr. IVFE lipids 3x/wk. Goal rate plus lipids provides 1974 kcals (99% EER) and 100 g protein (98% EER) 2. Monitor lytes phos, K+, Mg, glucose before start of TPN and first 3 days on TPN. Hold initiation or increase in TPN rate until lytes are supplemented and/or normalized. 3. Adjust rate of IV fluids daily depending on rate of TPN. Fluid needs are 2.4 L daily. ER: 2000 kcals (30kcals/kg per BMI) 102-115 g protein (1.5-1.7 g/kg per wounds/PCM) 1032-2426 ml fluids (35 ml/kg per age vs Helder segar) Monitoring/Evaluations: start of TPN, labs Electronically Signed by: Flakita Hopkins 08/06/25 10:50 Clinical Dietitian [address] [id number]
[2025-08-06 11:52] VITALS: RESP 18; O2SAT 100
--- NOTE | 2025-08-06 13:35 | P.DS_ITS ---
History of Present Illness History of Present Illness Date Patient Seen: 08/06/25 Chief complaint: feeding tube came out Narrative: Chief complaint: Jejunostomy tube fell out History of present illness: 08/04: 45-year-old male with past medical history of cerebral palsy, pseudo bulbar palsy, developmental delay, jejunostomy feeding tube, tracheostomy tube, dysarthria, spastic hemiparesis, presents with dislodged feeding tube. Per report the patient had an incident where the feeding tube was dislodged around 1:30 PM today. Of note patient is unable to give any history. In the emergency room, the patient was hemodynamically stable. Labs were relatively benign and stable. General surgery was consulted for placement of new feeding tube. However patient is on Eliquis and will consult pharmacy to help possible reverse effect of Eliquis for plan OR. Excerpt from the operative report for the original placement of the jejunostomy tube in April of 2025: We started with a 1 cm infraumbilical incision. Lindsay port was placed the abdomen was insufflated to 15 mmHg and a camera was inserted. There was no evidence of injury from the entry. There was evidence of leakage from the gastrostomy near its junction with the anterior abdominal wall and there was turbid fluid in the right abdomen. At this point we converted to an exploratory laparotomy. A midline incision was created from 4 fingerbreadths below the umbilicus to 5 fingerbreadths above the umbilicus. An Kolton wound retractor was placed in the wound. The abdomen was washed out with a total of 6 L of sterile saline by the end of the case which led to clear return. We then took down the existing gastrostomy using a TA stapler with a green load to divide the stomach. The staple line was oversewn with multiple interrupted 3-0 silk imbricating sutures. The remainder of the tract was excised from the abdominal wall leaving a 1.5 cm circular defect in the upper midline of the abdominal wall. This was then closed with 3 interrupted 0 Vicryl sutures. We then created a jejunostomy using a Witzel technique. An 18 gauge red Maria catheter was inserted into the proximal jejunum about 15 cm from the ligament of Treitz in a superior to inferior direction. The jejunum was then sutured to the anterior abdominal wall using 5 interrupted 3-0 silk sutures. The red Maria was secured to the skin with a 2-0 nylon stitch. We then placed a 19 round Shaun drain across the upper abdomen starting in the left upper quadrant near the new jejunostomy and traversing past the anterior wall of the stomach and exiting the abdominal wall in the right midabdomen. The Shaun drain was secured to the skin with a 2-0 nylon stitch. We injected Exparel into the fascia. The midline incision was closed with a running 0 PDS suture. The midline wound was closed with luis. The upper midline wound where the prior gastrostomy was previously located was partially closed and packed with the corner of a 4 x 4. Sterile dressings were applied over the midline wound. A bulb suction was attached to the Shaun drain. Hospital course: 08/05: Patient brought to the operating room unfortunately there were multiple problems that did not permit replacement of the jejunostomy tube: Operative note excerpt: We attempted to recannulate the jejunostomy tract with a ureteral scope which was successful the last time the feeding tube was dislodged but we were unable to intubate the jejunum secondary to a contracted tract. We then planned laparoscopic-assisted replacement of the jejunostomy tube. This requires muscle relaxation so the non cuffed tracheostomy tube was attempted to be exchanged to a cuffed tube but the cuffed tube was unable to be advanced into the trachea. The tracheostomy site also has a chronic wound with chronic inflammation and there was non-pulsatile oozing around the tracheal entry site. A standard endotracheal tube was placed successfully but the tidal volumes were inadequate for muscle relaxation so the procedure was abandoned. 08/06: Case was discussed with surgery on-call at [facility] in arrangements were made to transfer the patient down to attempt jejunostomy placement through Interventional Radiology Review of systems: No fever or chills rigors Chronic secretions and coughing which is patient's baseline No vomiting No diarrhea No abdominal Physical exam: Chronically ill contracted male alert cogent engaged HEENT lots of oral secretions Lungs coarse rhonchi throughout especially on left Been nondistended no wounds bowel sounds present Skin multiple decubiti see wound care note Assessment and plan: Dislodged jejunostomy feeding tube * Patient is dependent on this for hydration and nutrition * Unable to replace at this facility * Transferred to [facility] for replacement Chronic sacral decubitus, at least stage III. * Chronic wound care Severe protein caloric malnutrition with BMI of 21 and evidence of diffuse muscle wasting. * Patient requiring enteral nutrition via jejunostomy feeding tube due to a functional impairment of the gastrointestinal tract secondary to dysphagia and aspiration. Enteral nutrition will be required for > 90 days and will provide the majority of the patient's nutrition. * [facility] to manage tube feedings * Outpatient managing provider is Dr. Chucky Marshall. Cerebral palsy with contracture * Lives at home with caregivers Chronic anticoagulation for history of thromboembolism * Resume Eliquis after discharge Disposition: * Transfer to tertiary care for reestablishment of jejunostomy feeding Time based billing: * 35 minutes were involved in the evaluation of this patient including [id number] evaluation discussion with surgery hospital Medicine Management team primary care physician review of records documentation Discharge Providers Provider Date of admission: 08/04/25 19:54 Discharge Date: 08/06/25 Primary care physician: Chucky Marshall MD Consults: 08/04/25 23:54 Consult to Pharmacy Routine Comment: assist with reversing Eliquis for procedure 08/06/25 08:30 Consult to Wound Care Routine Comment: wound to trach and buttocks Consulting Provider: [facility] Discharge provider: Gordo Russell MD Exam Vital Signs (past 8 hours): - 08/06/25 08:00 08/06/25 08:31 08/06/25 11:52 Temperature 96.7 F L Pulse Rate 80 Respiratory Rate 23 18 Blood Pressure 130/90 Pulse Oximetry 100 100 Oxygen Delivery Method Venturi Mask Trach Collar Fraction of Inspired Oxygen 28 SaO2/FiO2 Ratio 357 Oxygen Delivery Method Venturi Mask,Trach Collar Oxygen Flow Rate 6 Objective Labs 08/04/25 20:39 08/04/25 20:39 [facility] Medical History Anemia Cerebral palsy Chronic adrenal insufficiency Chronic anticoagulation Chronic anticoagulation Depression Depression, major, recurrent Difficulty with speech Dysarthria Dysphagia Former smoker Gingivitis History of pulmonary embolism Hyponatremia Influenza A Iron deficiency anemia Jejunostomy tube present Pneumonia Protein calorie malnutrition Pseudobulbar palsy Recurrent aspiration pneumonia Sacral decubitus ulcer, stage III 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 Father No problems noted. Social History marital status: unmarried,single details: Lives independantly with part-time caregivers household members: caregiver lives independently: Yes occupational status: disabled alcohol intake: former substance use type: marijuana Discharge Plan Discharge Plan Patient Disposition: Xfer Acute Care Hospital Visit Report/Discharge Packet Stand Alone Forms: Stroke Signs & Symptoms Discharge Data Primary Care Provider: Chucky Marshall V Attending Provider: Orville Taylor Admit Date/Time: 08/04/25 19:54 Quality VTE Deep Vein Thrombosis/Pulmonary Embolism Present on Admission: No
--- NOTE | 2025-08-06 14:02 | CM.DPNOTE ---
DCP Continued: Reviewed EMR and team rounds for pt?s medical status. Per hospitalist, surgery attempted on 08/05 failed due to tract closing. Acute Care staff attempting transfer to higher level of care. Plan: Transfer to tertiary care at [facility]. CM Team will continue to follow for coordination of discharge plans. ERIK Sadler
== END 2025-08-06 14:10 | disposition short-term general hospital (02) ==
LOC: ED 17:53 → AC 19:55 → ICU 21:35
PROVIDERS: Internal Medicine; Surgery; Admitting Provider Internal Medicine; Emergency Provider Family Medicine; PCP Internal Medicine; Referring Provider Family Medicine; Visit Provider Internal Medicine
PROC: (CPT 49451; principal; 2025-08-05 16:45)
DX: K94.13 Enterostomy malfunction (principal); G80.9 Cerebral palsy, unspecified; F32.A Depression, unspecified; L89.153 Pressure ulcer of sacral region, stage 3; E43 Unspecified severe protein-calorie malnutrition; Z68.21 Body mass index [BMI] 21.0-21.9, adult; Z86.718 Personal history of other venous thrombosis and embolism; Z79.01 Long term (current) use of anticoagulants
CPT/HCPCS: 49451; 36415; 80053; 85025; 85610; 87797; 94762; 94799; 96361; 96365; 99284; G0378; J0131; J0689; J1100; J2405; J2704; J7030; J7120; J7168; J7613

== ENCOUNTER → 2025-08-29 13:13 | Outpatient (CLI) | payer MEDICARE, MEDICAID, OTHER, SELFPAY ==
[2025-05-27 09:05] VITALS: PULSE 89; RESP 16; O2SAT 100
[2025-08-04 20:31] VITALS: BMI 20.3
== END ==
LOC: WC 13:40
PROVIDERS: PCP Internal Medicine; Referring Provider Internal Medicine; Visit Provider Surgery
DX: L89.323 Pressure ulcer of left buttock, stage 3 (principal); L53.9 Erythematous condition, unspecified; G80.9 Cerebral palsy, unspecified; E46 Unspecified protein-calorie malnutrition
CPT/HCPCS: 11042; 99213

== ENCOUNTER → 2025-09-02 16:32 | Outpatient (CLI) | payer MEDICARE, MEDICAID, OTHER, SELFPAY ==
[2025-05-27 09:05] VITALS: PULSE 89; RESP 16; O2SAT 100
[2025-08-04 20:31] VITALS: BMI 20.3
[2025-09-02 17:56] LABS: Hematocrit 32.9 % (41-53); Hemoglobin 10.6 g/dL (13.5-17.5); Mean Corpuscular HGB Conc 32.3 % (30-36); Mean Corpuscular Hemoglobin 25.9 PG (26-34); Mean Corpuscular Volume 80.2 fL (80-100); Platelet Count 263 X10^3/uL (150-400)
[2025-09-02 18:17] LABS: HEMOLYSIS 20 (0-50); Iron 43 ug/dL (49-181)
[2025-09-02 18:19] LABS: Alanine Aminotransferase 132 IU/L (<50); Albumin 3.7 g/dL (3.5-5.0); Albumin Globulin Ratio 1.0 (1.0-2.8); Alkaline Phosphatase 129 U/L (38-126); Blood Urea Nitrogen 31 mg/dL (9-20); Calcium 8.7 mg/dL (8.4-10.2); Carbon Dioxide 31 mmol/L (22-32); Chloride 100 mmol/L (98-107); Estimated Glomerular Filt Rate > 60 mL/min (>60); Globulin 3.7 g/dL (1.7-4.1); Glucose 65 mg/dL (70-99); HEMOLYSIS < 15 (0-50); Magnesium 2.0 mg/dL (1.6-2.3); Potassium 4.7 mmol/L (3.4-5.1); Sodium 138 mmol/L (137-145); Total Protein 7.4 g/dL (6.3-8.2)
[2025-09-02 18:28] LABS: Percent Iron Saturation 14 % (20-50); Total Iron Binding Capacity 311 ug/dL (261-462); Transferrin 252 mg/dL (206-381)
[2025-09-02 18:36] LABS: Vitamin D 25 Hydroxy (D3) 31.5 ng/mL (30.0-100.0)
[2025-09-02 18:55] LABS: Ferritin 121 ng/mL (18-464)
[2025-09-02 19:07] LABS: Vitamin B12 891 pg/mL (239-931)
== END ==
PROVIDERS: PCP Internal Medicine; Referring Provider Internal Medicine; Visit Provider Internal Medicine
DX: E56.9 Vitamin deficiency, unspecified (principal); D50.8 Other iron deficiency anemias; E27.40 Unspecified adrenocortical insufficiency
CPT/HCPCS: 36415; 80053; 82306; 82607; 82728; 83540; 83550; 83735; 85027

== ENCOUNTER → 2025-09-10 14:57 | Outpatient (CLI) | payer MEDICARE, MEDICAID, OTHER, SELFPAY ==
[2025-05-27 09:05] VITALS: PULSE 89; RESP 16; O2SAT 100
== END ==
LOC: WC 14:58
PROVIDERS: PCP Internal Medicine; Referring Provider Internal Medicine; Visit Provider Surgery
DX: L89.153 Pressure ulcer of sacral region, stage 3 (principal); G80.9 Cerebral palsy, unspecified; L53.8 Other specified erythematous conditions
CPT/HCPCS: 11042

== ENCOUNTER → 2025-09-17 11:12 | Outpatient (CLI) | payer MEDICARE, MEDICAID, OTHER, SELFPAY ==
[2025-05-27 09:05] VITALS: PULSE 89; RESP 16; O2SAT 100
== END ==
LOC: WC 11:21
PROVIDERS: PCP Internal Medicine; Referring Provider Internal Medicine; Visit Provider Surgery
DX: L89.893 Pressure ulcer of other site, stage 3 (principal); R23.4 Changes in skin texture; Z79.01 Long term (current) use of anticoagulants; Z74.1 Need for assistance with personal care; Z93.1 Gastrostomy status; G81.91 Hemiplegia, unspecified affecting right dominant side; G12.29 Other motor neuron disease; R47.1 Dysarthria and anarthria; R62.50 Unspecified lack of expected normal physiological development in childhood
CPT/HCPCS: 11042